=== PATIENT | male | born 1970 | race Caucasian/White ===

== ENCOUNTER 2021-03-20 03:22 | Inpatient (IN) | payer MEDICAID, SELFPAY ==
[2021-03-20] VITALS (15 sets, daily range): BP systolic 111–134; BP diastolic 75–111; PULSE 72–100; RESP 15–27; TEMP 36.6–37.3; O2SAT 94–98; BMI 19.9; BMI 18.7
--- NOTE | 2021-03-20 03:46 | EKG12_ITS ---
Test Reason : SOB Blood Pressure : / mmHG Vent. Rate : 096 BPM Atrial Rate : 096 BPM P-R Int : 128 ms QRS Dur : 078 ms QT Int : 326 ms P-R-T Axes : 083 080 064 degrees QTc Int : 411 ms Normal sinus rhythm Biatrial enlargement Abnormal ECG Confirmed by SAMEERA YADAV, CATE ([id number]), newspaper copy editor DAYAMI OLIVO ([id number]) on 03/25/2021 11:17:00 AM Referred By: BLANQUITA Confirmed By:CATE BRASHER MD
[2021-03-20] MEDS: MethylPREDNISolone 125 MG/2 ML Vial IV (03:55)
[2021-03-20] MEDS: Ondansetron 4 MG/2 ML Vial IV (03:56)
[2021-03-20] MEDS: Morphine 4 MG/ML Syringe IV (03:57)
--- NOTE | 2021-03-20 04:03 | EKG12_ITS ---
Test Reason : SOB Blood Pressure : / mmHG Vent. Rate : 095 BPM Atrial Rate : 095 BPM P-R Int : 130 ms QRS Dur : 078 ms QT Int : 348 ms P-R-T Axes : 083 080 073 degrees QTc Int : 437 ms Normal sinus rhythm Biatrial enlargement Abnormal ECG When compared with ECG of 20-MAR-2021 04:02, MANUAL COMPARISON REQUIRED, DATA IS UNCONFIRMED Confirmed by SAMANTHA YADAV, LISA ([id number]), editor newspaper DAYAMI OLIVO ([id number]) on 03/27/2021 8:16:20 AM Referred By: BLANQUITA Confirmed By:ROSIBEL SINGH MD
[2021-03-20 04:04] LABS: Absolute Lymphocyte Count 2.21 X10^3/uL (0.83-4.51); Absolute Neutrophil Count 11.2 X10^3/uL (2.0-7.7); Basophil# 0.03 X10^3/uL; Basophil% 0.2 % (0-1); Eosinophil# 0.07 X10^3/uL; Eosinophils% 0.5 % (0-5); Hematocrit 40.5 % (40-54); Hemoglobin 13.2 g/dL (13.0-16.5); Lymphocyte # 2.21 X10^3/ul (0.83-4.51); Mean Corp Hgb Conc 32.6 g/dL (32-36); Mean Corpuscular Hgb 28.8 pg (27.0-32.0); Mean Corpuscular Volume 88.4 fL (80-94); Mean Platelet Vol. 9.7 fl (6.2-12.0); Monocyte# 1.15 X10^3/uL; Monocyte% 7.8 % (0-10); NRBC Flagged by Analyzer 0 % (0-5); Neutrophil # 11.21 X10^3/uL (2.7-7.7); Neutrophil % 76.2 % (47-70); Platelet Count 416 K/mm3 (150-450); RBC Distribution Width CV 14.5 % (11.6-14.6); RBC Distribution Width SD 46.3 fl (35.1-43.9); Red Blood Count 4.58 M/mm3 (4.6-6.2); White Blood Count 14.7 K/mm3 (4.4-11.0)
--- NOTE | 2021-03-20 04:18 | EX.ED.DYSGE1 ---
HPI History of Present Illness Chief Complaint: Shortness of Breath Narrative Narrative: Patient is a 50-year-old male with past medical history of COPD as well as previous bilateral pneumonia leading to pneumothorax. Patient reports that he is to wear 2 to 3 L of oxygen as needed and at bedtime. He states he had increased stress over the last week and has resorted to smoking once again. He reports he has been having increased shortness of breath that does not seem to be responding to his normal inhalers and his home oxygen and it did worsen this evening. He denies any known sick exposures or chest pain associated with this but with his history of lung disorder and persistently worsening symptoms he was concern for repeat infection and therefore comes in for evaluation [facility] Medical History (Updated 03/20/21 @ 06:[address] Neo Steven MD) Anxiety COPD (chronic obstructive pulmonary disease) Depression History of bacterial pneumonia Home Medications Spiriva with HandiHaler 1 puff INHALATION DAILY 06/05/14 [History Last Taken 11/18/14] sertraline 100 mg PO DAILY 11/19/14 [History Last Taken 11/18/14] budesonide-formoterol [Symbicort] 2 puff INHALATION BID 03/20/21 [History Last Taken Unknown] pantoprazole 40 mg PO BID 03/20/21 [History Last Taken Unknown] trazodone 100 mg PO DAILY 03/20/21 [History Last Taken Unknown] Allergy/AdvReac Type Severity Reaction Status Date / Time tramadol HCl [From Ultram] Allergy Swelling Verified 03/20/21 03:31 codeine AdvReac PT UNSURE Verified 03/20/21 03:31 OF REACTION Family History (Updated 03/20/21 @ 06:[address] Neo Steven MD) Other Cancer Surgical History (Updated 03/20/21 @ 06:[address] Neo Steven MD) History of chest tube placement History of herniorrhaphy History of tonsillectomy History of tracheostomy Social History Smoking Status: Current every day smoker tobacco type: cigarettes ROS ROS ED Constitutional Constitutional ED: Denies chills or fever(s) ENT ENT ED: Reports rhinorrhea and sore throat Cardiovascular Cardiovascular: Denies chest pain Respiratory/Chest Respiratory/Chest: Reports cough, dyspnea and sputum Gastrointestinal Gastrointestinal: Denies abdominal pain, diarrhea, nausea or vomiting Genitourinary Genitourinary ED: Denies dysuria Musculoskeletal Musculoskeletal: Denies myalgias Integumentary Denies rash Neurologic Neurologic: Reports headache(s) Hematologic/Lymphatic Hematologic/Lymphatic: Denies easy bleeding or easy bruising EXAM Physical Exam Const Vital Signs: 03/20/21 03:23 03/20/21 03:34 03/20/21 04:08 Temperature 98.3 F Temperature Source Oral Pulse Rate 100 97 Respiratory Rate 27 H 20 H Respiratory Effort Labored Respiratory Pattern Tachypnea Normal Blood Pressure 134/111 H Blood Pressure Mean 118 Pulse Ox 94 Oxygen Delivery Method Nasal Cannula Nasal Cannula Oxygen Flow Rate (L/min) 4 4 03/20/21 04:23 03/20/21 05:23 03/20/21 06:23 Temperature 97.9 F 97.9 F 98.2 F Temperature Source Oral Oral Oral Pulse Rate 93 91 90 Respiratory Rate 17 18 17 Respiratory Effort Respiratory Pattern Blood Pressure 130/84 H 128/88 H 123/92 H Blood Pressure Mean 99 101 102 Pulse Ox 95 95 94 Oxygen Delivery Method Nasal Cannula Nasal Cannula Nasal Cannula Oxygen Flow Rate (L/min) 4 4 4 Positive well nourished and well developed General Appearance ED: well developed HEENT Reports moist mucous membranes HEENT Narrative: No tongue or lip swelling no oral lesions no airway edema or compromise Eyes PERRL and EOMs intact bilaterally Neck supple and no JVD Resp Resp Narrative: Patient is tachypneic with accessory muscle use and has dyspnea with speech. Breath sounds are diminished throughout with diffuse inspiratory and expiratory wheezing and faint rhonchi noted in the left lower lobe Cardio regular rhythm Rate: tachycardic and other Other Details: Tachycardic rate with regular rhythm. Radial pulses are plus 2 out of 4 bilaterally are equal and symmetric. GI normal to inspection, nondistended, normoactive bowel sounds, non-tender, non-distended and no masses Auscultation: normoactive bowel sounds Palpation: soft Extremity normal to inspection Extremity Narrative: No asymmetric edema no pitting edema negative Homans' sign bilaterally Neuro oriented x3 and CN's II-XII intact bilaterally Sensorium / Orientation: alert Motor Exam: strength 5/5 throughout Psych mental status grossly normal Skin no rashes or lesions noted MDM MDM MDM Narrative Medical decision making narrative: Patient presented to the ER and respiratory distress with tachypnea accessory muscle use and mild retraction. He also was hypoxic for EMS with a pulse ox in the mid 80s on room air. He did was placed on 4 L nasal cannula and his pulse ox did improve to 94%. His history and exam is most consistent with COPD but based on his severe lung dysfunction a work-up was obtained. White count is elevated at 14.7 but otherwise are no clinically significant lab changes. X-ray reveals COPD lungs without obvious infiltrate or pneumothorax. Patient was given Solu-Medrol and breathing treatments and did have improvement of his symptoms. On reevaluation his work of breathing is much improved and his pulse ox remained stable on 4 L. At this time the patient states he does not feel comfortable going home because of his persistent and worsening symptoms at home despite taking his normal medications. Withheld in distress the patient looked upon arrival I do have concern that if he is discharged he will return to this distress state. Therefore patient will be admitted to the hospital for continued care based on his increasing need for oxygen demand and COPD exacerbation Lab Data Attestation: I reviewed the patient's lab results. Labs: Laboratory Results - last 24 hr 03/20/21 03/20/21 03/20/21 03:35 03:35 03:58 WBC 14.7 H RBC 4.58 L Hgb 13.2 Hct 40.5 MCV 88.4 MCH 28.8 MCHC 32.6 RDW Std Deviation 46.3 H RDW Coeff of Maya 14.5 Plt Count 416 MPV 9.7 Immature Gran % (Auto) 0.300 Neut % (Auto) 76.2 H Lymph % (Auto) 15.0 L [place] % (Auto) 7.8 Eos % (Auto) 0.5 Baso % (Auto) 0.2 Absolute Neuts (auto) 11.2 H Absolute Lymphs (auto) 2.21 Nucleated RBC % 0 D-Dimer Quant (PE/DVT) <= 0.27 Sodium Cancelled Potassium Cancelled Chloride Cancelled Carbon Dioxide Cancelled Anion Gap Cancelled BUN Cancelled Creatinine Cancelled Estim Creat Clear Calc Cancelled Est GFR (MDRD) Af Amer Cancelled Est GFR (MDRD) Non-Af Cancelled BUN/Creatinine Ratio Cancelled Glucose Cancelled Calcium Cancelled Magnesium Cancelled Troponin I High Sens Cancelled 03/20/21 04:09 WBC RBC Hgb Hct MCV MCH MCHC RDW Std Deviation RDW Coeff of Maya Plt Count MPV Immature Gran % (Auto) Neut % (Auto) Lymph % (Auto) [place] % (Auto) Eos % (Auto) Baso % (Auto) Absolute Neuts (auto) Absolute Lymphs (auto) Nucleated RBC % D-Dimer Quant (PE/DVT) Sodium 137 Potassium 3.3 L Chloride 101 Carbon Dioxide 29.0 Anion Gap 7 BUN 9 Creatinine 0.73 Estim Creat Clear Calc 107.88 Est GFR (MDRD) Af Amer 146 Est GFR (MDRD) Non-Af 121 BUN/Creatinine Ratio 12.3 Glucose 106 Calcium 9.0 Magnesium 1.8 Troponin I High Sens 3 Radiography Diagnostic Testing: Clinical Impression(s) from Imaging Studies Chest X-Ray 03/20/21 04:50 IMPRESSION: No acute findings in the chest. COPD changes. at 0505 Reported and signed by: Lee De Leon MD Electronically Signed: Lee De Leon MD at 5:04 EST Tel , Service support , Discharge Plan Triage Chief Complaint: Shortness of Breath ED Provider: Anselmo Bustos Dx/Rx/DC Orders Clinical Impression: Acute exacerbation of chronic obstructive pulmonary disease Primary Care Provider: Antwan Buchanan Disposition Disposition: [facility]
[2021-03-20 04:20] LABS: D-Dimer Quantitative (DVT/PE) <= 0.27 FEU/ug/m (0.27-0.49)
[2021-03-20 04:48] LABS: Anion Gap 7 (5-15); BUN 9 mg/dL (7-18); BUN/Creat Ratio 12.3 RATIO (10-20); Chloride 101 mmol/L (98-107); Creatinine, Serum 0.73 mg/dL (0.70-1.30); EST Glomerular Filtration Rate 121 mL/min (>60); Est Glom Filt Rate - Afr Amer 146 mL/min (>60); Estimated Creatinine Clearance 107.88 ml/min; Glucose 106 mg/dL (74-106); Magnesium 1.8 mg/dL (1.6-2.6); Potassium 3.3 mmol/L (3.5-5.1); Sodium Level 137 mmol/L (136-145); Troponin-I HS 3 pg/mL (3.0-78.0)
--- NOTE | 2021-03-20 04:50 | RAD_ITS ---
EXAM: XR CHEST, 1 VIEW : 1970 CLINICAL INDICATION: cough TECHNIQUE: Frontal view of the chest. This report was created using [employer] report generation technology. COMPARISON: 11/19/14 FINDINGS: LUNGS AND PLEURAL SPACES: Hyperinflation. No pneumothorax. No effusion. HEART: Unremarkable. Cardiac silhouette not enlarged. MEDIASTINUM: Central airways and mediastinal contour are unremarkable. BONES/JOINTS: Unremarkable. SOFT TISSUES: Unremarkable. RAD/Chest 1 View (Portable) IMPRESSION: No acute findings in the chest. COPD changes. at 0505 Reported and signed by: Lee De Leon MD Electronically Signed: Lee De Leon MD at 5:04 EST Tel , Service support ,
--- NOTE | 2021-03-20 06:32 | PCM.HP.STD ---
HPI - General HPI Narrative LUIS AVILA, is a 50 M with a significant history of COPD; bilateral pneumonia; pneumothorax with a chest tube; Tracheostomy; and on 2 L as needed oxygen and at night at night presenting with 1 week history of progressively worsening shortness of breath. Associated with symptom is wheezes. Also he reports thick greenish-yellowish sputum. Typically he has a dry cough but this time around he has a productive cough as above. He denies any fever. He reports chills. He did not take the COVID-19 vaccination because his doctor advised him against it. Per patient he had a pulmonary complication the first time that he took influenza shot. [facility] Medical History Anxiety COPD (chronic obstructive pulmonary disease) Depression History of bacterial pneumonia Home Medications Spiriva with HandiHaler 1 puff INHALATION DAILY 06/05/14 [History Last Taken 11/18/14] sertraline 100 mg PO DAILY 11/19/14 [History Last Taken 11/18/14] budesonide-formoterol [Symbicort] 2 puff INHALATION BID 03/20/21 [History Last Taken Unknown] pantoprazole 40 mg PO BID 03/20/21 [History Last Taken Unknown] trazodone 100 mg PO DAILY 03/20/21 [History Last Taken Unknown] Allergy/AdvReac Type Severity Reaction Status Date / Time [facility] Allergy Swelling Verified 03/20/21 03:31 codeine AdvReac PT UNSURE Verified 03/20/21 03:31 OF REACTION Family History Other Cancer Surgical History History of chest tube placement History of herniorrhaphy History of tonsillectomy History of tracheostomy Social History Smoking Status: Current every day smoker tobacco type: cigarettes ROS ROS Narrative Constitutional: Reports chills. Denies fever, fatigue, anorexia and change in weight Eyes: Denies blurry vision, change in eye color, change in vision, discharge from eye(s), double vision, erythema, eye pain, loss of vision or other HEENT: Denies abnormal hearing, dysphagia, ear pain, epistaxis, headache(s), hearing loss, nasal congestion, nasal discharge, post nasal drip, sinus pressure, sore throat or other Cardiovascular: Denies chest pain or palpitations. Respiratory/Chest: Reports productive cough. Reports wheezing. Reports shortness of breath. Gastrointestinal: Denies abdominal pain, coffee ground emesis, constipation, diarrhea, dyspepsia, hematemesis, hematochezia, loose stools, melena, nausea, vomiting or other Genitourinary: Denies burning urination, difficulty urinating, dysuria, hematuria, nocturia, urinary frequency, urinary hesitancy, urinary incontinence, urinary urgency or other Musculoskeletal: Denies arthralgias, back pain, joint pain, joint stiffness, joint swelling, myalgias, neck pain or other Neurologic: Denies abnormal gait, abnormal speech, confusion, disequilibrium, dizziness, focal weakness, headache(s), numbness, paresthesias, seizure-like activity, seizures, syncope, tingling, tremor(s) or other Psychiatric: Denies anxiety, depression, homicidal ideation, suicidal ideation or other Endocrinology: Denies change in body appearance, cold intolerance, excessive sweating, heat intolerance, polydipsia, polyuria or other Hematologic/Lymphatic: Denies anemia, easy bleeding, easy bruising, lymphadenopathy or other Integumentary: Denies rashes Allergic/Immunologic: Denies rhinitis, hives, eczema, asthma or other Vital Signs Vital Signs Vital Signs: 03/20/21 03:23 03/20/21 03:34 03/20/21 04:08 Temperature 98.3 F Temperature Source Oral Pulse Rate 100 97 Respiratory Rate 27 H 20 H Respiratory Effort Labored Respiratory Pattern Tachypnea Normal Blood Pressure 134/111 H Blood Pressure Mean 118 Pulse Ox 94 Oxygen Delivery Method Nasal Cannula Nasal Cannula Oxygen Flow Rate (L/min) 4 4 03/20/21 04:23 03/20/21 05:23 03/20/21 06:23 Temperature 97.9 F 97.9 F 98.2 F Temperature Source Oral Oral Oral Pulse Rate 93 91 90 Respiratory Rate 17 18 17 Respiratory Effort Respiratory Pattern Blood Pressure 130/84 H 128/88 H 123/92 H Blood Pressure Mean 99 101 102 Pulse Ox 95 95 94 Oxygen Delivery Method Nasal Cannula Nasal Cannula Nasal Cannula Oxygen Flow Rate (L/min) 4 4 4 Weight Weight: 63 kg Body Mass Index (BMI) 19.9 Physical Exam Narrative Physical exam: General: Well-nourished, well-developed. Head: Normocephalic, atraumatic, no tenderness Eyes: PERRLA, EOMI ENT, no trauma, moist mucous membranes, no rhinorrhea Neck: Nontender, full range of motion, no spinal tenderness, deformities, step-off CVS: Regular rate and rhythm. S1-S2 present. No murmur, gallop or rub. Respiratory : Decreased breathing at left posterior side of lung. Clear posterior right lungs. Abdomen: Soft, nontender, nondistended, normal bowel sounds, no masses : Deferred Back: Nontender, no CVA tenderness, no midline spinal tenderness, deformities, step-offs Extremities: Nontender full range of motion, no trauma Skin: Normal color, no trauma, abrasions Neuro: Alert, oriented, cranial nerves II through XII grossly intact. Psychiatry: Normal mood. Normal affect. Not depressed. Not anxious. Results Lab / Micro Data Result Diagrams: 03/20/21 03:35 03/20/21 04:09 Labs: Laboratory Results - last 24 hr 03/20/21 03:35: WBC 14.7 H, RBC 4.58 L, Hgb 13.2, Hct 40.5, MCV 88.4, MCH 28.8, MCHC 32.6, RDW Std Deviation 46.3 H, RDW Coeff of Maya 14.5, Plt Count 416, MPV 9.7, Immature Gran % (Auto) 0.300, Neut % (Auto) 76.2 H, Lymph % (Auto) 15.0 L, [place] % (Auto) 7.8, Eos % (Auto) 0.5, Baso % (Auto) 0.2, Absolute Neuts (auto) 11.2 H, Absolute Lymphs (auto) 2.21, Nucleated RBC % 0 03/20/21 03:35: Sodium Cancelled, Potassium Cancelled, Chloride Cancelled, Carbon Dioxide Cancelled, Anion Gap Cancelled, BUN Cancelled, Creatinine Cancelled, Estim Creat Clear Calc Cancelled, Est GFR (MDRD) Af Amer Cancelled, Est GFR (MDRD) Non-Af Cancelled, BUN/Creatinine Ratio Cancelled, Glucose Cancelled, Calcium Cancelled, Magnesium Cancelled, Troponin I High Sens Cancelled 03/20/21 03:58: D-Dimer Quant (PE/DVT) <= 0.27 03/20/21 04:09: Sodium 137, Potassium 3.3 L, Chloride 101, Carbon Dioxide 29.0, Anion Gap 7, BUN 9, Creatinine 0.73, Estim Creat Clear Calc 107.88, Est GFR (MDRD) Af Amer 146, Est GFR (MDRD) Non-Af 121, BUN/Creatinine Ratio 12.3, Glucose 106, Calcium 9.0, Magnesium 1.8, Troponin I High Sens 3 Micro: Microbiology 03/20/21 03:52 Nasal Secretion SARS-CoV-2 Antigen (Rapid) - Final Radiology Impression Chest X-Ray 03/20/21 04:50 IMPRESSION: No acute findings in the chest. COPD changes. at 0505 Reported and signed by: Lee De Leon MD Electronically Signed: Lee De Leon MD at 5:04 EST Tel , Service support , Assessment & Plan Assessment/Plan (1) COPD (chronic obstructive pulmonary disease): QUALIFIERS: COPD type: COPD with acute exacerbation Qualified Code(s): J44.1 - Chronic obstructive pulmonary disease with (acute) exacerbation PLAN: Acute COPD exacerbation CXR independently interpreted showed COPD with no acute cardiopulmonary process. Rapid Covid antigen is negative. Chest x-ray is not symptomatology for Covid. Scheduled DuoNeb Albuterol as needed Solu-Medrol ordered Review of labs showed a white count of 14.7. This could secondary to stress. However with a thick colored sputum we will start patient on azithromycin. Trend CBC and BMP. Oxygen per nasal cannula titrate as necessary. Monitor BMP and CBC Tobacco abuse Counseled Declined nicotine patch prostate out his PCP will be sending him Chantix. Hypokalemia: Review of labs showed potassium of 3.3. Replace. Trend BMP. DVT prophylaxis Subcutaneous Lovenox ordered. Charges/Coding Visit Charges Inpatient E&M: 94304 Init Hosp L2
[2021-03-20] MEDS: Acetaminophen 325 MG Tablet 650 MG PO ×2 (07:49→21:44)
[2021-03-20] MEDS: Ceftriaxone 1 GM/50 ML BAG IV (09:24)
[2021-03-20] MEDS: Sertraline 100 MG Tablet PO (09:26)
[2021-03-20] MEDS: guaiFENesin 1,200 MG Tablet 1200 MG PO ×2 (09:26→21:44)
[2021-03-20] MEDS: Pantoprazole Sodium 40 MG Tablet PO ×2 (09:26→21:44)
[2021-03-20] MEDS: Azithromycin 250 MG Tablet 500 MG PO (09:26)
[2021-03-20] MEDS: Potassium Chloride Oral Tablet 20 MEQ 40 MEQ PO (09:28)
--- NOTE | 2021-03-20 09:54 | CASEMGMT ---
Pt screened with [facility] Palliative Care Screening Tool, pt met criteria. No order received at this time.
--- NOTE | 2021-03-20 10:20 | CASEMGMT ---
Addendum entered by Nicol Perkins 03/20/21 11:05: Looked up [employer] online, called number listed and it was a private phone number. TC to several [place] oxygen companies, they are unaware of the company. TC to another company listed online, which was in [place], they do not have a branch in [place]. ADELIA HOFFMANN back in to pt room to see if he has the phone number to the company. Pt states he does not. Emailed the email listed on website requesting phone number. Will await response. Original Note: ADELIA HOFFMANN Assessment: Face to Face with pt for initial transition planning/care coordination assessment. ADELIA HOFFMANN introduced self and role at [facility], pt voices understanding and consents to assessment. Pt is A/O x4 and answers all questions appropriately at this time. Pt lying in bed with O2 on in no distress. Pt kept eyes closed throughout assessment. Care providers, pharmacy, and demographics verified/updated. Admitting Dx: COPD exac PCP:[facility] Specialists: Pt denies having specialists. States I have to get new ones. [facility] Insurance: [facility] Prescription Benefit: yes LW/HPOA: Pt denies having a LW/DPOA and denies need for info regarding AD. LNOK: Toño Steele, father; Fabi Almendarezsey, friend Living Arrangements: Pt lives alone in a ground level apt with no steps to enter. Pt reports he is I in ADL's and denies concerns at home. Transportation: Pt drives self and denies concerns with transportation. DME/HHC/SNF: Pt states he has oxygen at 2L at night and prn during the day. Pt states this is through [facility]. Pt reports he does not have portable O2, but states he can get some. Made pt aware if he needs O2 at dc at rest, he will need portable to go home on. Pt states I wont need it. Pt states he has had HHC in the past but is unsure of the name of the agency, denies SNF stays. Pt states no concerns with going home at time of dc. Pt states no further concerns/needs. CM to follow. Advised pt to ask CM if any further question/concerns/needs arise, voices understanding. Pt Goal: Home Plan: Home
[2021-03-20] MEDS: Ipratropium/Albuterol Sulfate 3 ML AMPUL.NEB INHALATION ×3 (10:40→19:20)
[2021-03-20] MEDS: Ibuprofen 600 MG Tablet PO (11:54)
--- NOTE | 2021-03-20 13:02 | CASEMGMT ---
ADELIA HOFFMANN NOTE: ADELIA HOFFMANN unable to locate DME company by the name of [employer]. TC to [facility] and spoke w/Dagmar. She states pt has been prior-auth'd for both oxygen concentrator and portable tanks and supplier is [facility]. Phone number provided by Dagmar was [phone]. TC that #, and spoke to Kemi, who states this # is to [facility] main location and is the same as [place]. She states pt gets O2 from [facility]. ADELIA HOFFMANN placed call to [facility] and spoke w/Rosario. She confirms pt has a concentrator through them and he also has portability, stating last delivery of portable tanks was 07/31/20 when pt received 6 portable tanks. Rosario states current O2 orders are for 4 l/m continuously. ADELIA HOFFMANN to pt's room. Pt states he did receive the portable tanks in July, but [place] that time. He states he has moved from the [facility] since then and the tanks were left there and he was unable to get back in to get them, so he does not have any portable tanks now. He states he did not inform [facility] of this. ADELIA HOFFMANN also made him aware [place]'s current O2 orders are for 4 l/m continuously. He states Dr Buchanan had changed his O2 liter flow orders to 2-3 L/M PRN and @ HS, but he does remember when that occurred. TC placed back to [facility] and spoke w/Chari. She was made aware that pt reports he no longer has the 6 portable tanks that were delivered to him in Jul, 2020 d/t the above and also that pt reports Dr Buchanan changed his O2 orders. Chari does not show any records of new Liter flow. Chari asked for new Home O2 testing completed and new script to be faxed to [place] @ discharge so they can update all of pt's orders. She asks that script states on it that pt already has a concentrator but that he will need portable tanks. They can provide portable O2 tank to [facility] for pt to go home on, as well, @ discharge. Nicol, MS3 ADELIA HOFFMANN, made aware of all of the above. Corina BSN ADELIA HOFFMANN
[2021-03-20] MEDS: 0.9% Saline Lock 10 ML Syringe IV ×2 (14:43→21:45)
--- NOTE | 2021-03-20 17:36 | PCM.HOSP.N ---
Hospitalist Note Mr. Steele is a 50-year-old white male who presented to the emergency department early this morning and admitted for acute exacerbation of COPD. The patient indicates he has had several days of increased cough and sputum production. His white count is elevated but he denied any fever or chills. His chest x-ray shows marked COPD. Given his sputum change I will go ahead and treat him with antimicrobials to include azithromycin and ceftriaxone at this time. Sputum cultures pending. I ordered Legionella and strep pneumo antigens as well. We will continue steroids. Baseline oxygen requirements are 2 L and is presently on 4 L nasal cannula. He is still smoking 1 pack/day which he recently restarted. I anticipate him being here at least 24 more hours if not longer depending on his clinical progress.
[2021-03-20] MEDS: traZODone 100 MG Tablet PO (21:44)
[2021-03-20] MEDS: MELATONIN 3 MG TABLET PO (21:44)
[2021-03-21] VITALS (11 sets, daily range): BP systolic 83–118; BP diastolic 51–75; PULSE 61–113; RESP 16–22; TEMP 36.3–36.8; O2SAT 94–96
[2021-03-21 08:37] LABS: Absolute Lymphocyte Count 1.09 X10^3/uL (0.83-4.51); Absolute Neutrophil Count 12.1 X10^3/uL (2.0-7.7); Basophil# 0.01 X10^3/uL; Basophil% 0.1 % (0-1); Hematocrit 37.7 % (40-54); Hemoglobin 11.9 g/dL (13.0-16.5); Lymphocyte # 1.09 X10^3/ul (0.83-4.51); Lymphocyte % 7.6 % (19-41); Mean Corp Hgb Conc 31.6 g/dL (32-36); Mean Corpuscular Hgb 28.5 pg (27.0-32.0); Mean Corpuscular Volume 90.4 fL (80-94); Mean Platelet Vol. 9.3 fl (6.2-12.0); Monocyte# 1.07 X10^3/uL; Monocyte% 7.5 % (0-10); NRBC Flagged by Analyzer 0 % (0-5); Neutrophil # 12.05 X10^3/uL (2.7-7.7); Neutrophil % 84.4 % (47-70); Platelet Count 371 K/mm3 (150-450); RBC Distribution Width CV 14.4 % (11.6-14.6); Red Blood Count 4.17 M/mm3 (4.6-6.2); White Blood Count 14.3 K/mm3 (4.4-11.0)
[2021-03-21 09:01] LABS: Anion Gap 4 (5-15); BUN 17 mg/dL (7-18); BUN/Creat Ratio 23.3 RATIO (10-20); Calcium,Total 9.3 mg/dL (8.5-10.1); Chloride 104 mmol/L (98-107); Creatinine, Serum 0.73 mg/dL (0.70-1.30); EST Glomerular Filtration Rate 121 mL/min (>60); Est Glom Filt Rate - Afr Amer 146 mL/min (>60); Estimated Creatinine Clearance 101.37 ml/min; Glucose 126 mg/dL (74-106); Potassium 4.3 mmol/L (3.5-5.1); Sodium Level 138 mmol/L (136-145)
[2021-03-21] MEDS: Azithromycin 250 MG Tablet 500 MG PO (10:19)
[2021-03-21] MEDS: Sertraline 100 MG Tablet PO (10:20)
[2021-03-21] MEDS: Ceftriaxone 1 GM/50 ML BAG IV (10:20)
[2021-03-21] MEDS: guaiFENesin 1,200 MG Tablet 1200 MG PO ×2 (10:20→20:39)
[2021-03-21] MEDS: Pantoprazole Sodium 40 MG Tablet PO ×2 (10:20→20:38)
[2021-03-21] MEDS: Acetaminophen 325 MG Tablet 650 MG PO ×2 (14:04→20:38)
[2021-03-21] MEDS: 0.9% Saline Lock 10 ML Syringe IV ×2 (14:06→20:39)
[2021-03-21] MEDS: Ipratropium/Albuterol Sulfate 3 ML AMPUL.NEB INHALATION ×2 (14:24→20:02)
--- NOTE | 2021-03-21 16:58 | PCM.PN.HOSP ---
Subjective Subjective Patient states he is feeling overall better. Evidently case management found that he was supposed to be on 4 L nasal cannula at home but had only been using it intermittently and when he was using it only using 2 L. He states he is very fatigued. Last evening he informed us that his son, with whom he lives, called and told him he was positive for COVID-19. The patient is nonvaccinated and had significant exposure. A rapid was negative on admission and a PCR was negative yesterday although if this is a new diagnosis I suspect that he may test positive next 24 to 48 hours. The patient is complaining of significant fatigue and malaise. Objective Data Objective Data Vital Signs: Vital Signs Temp Pulse Resp BP Pulse Ox 97.8 F 99 22 H 118/75 96 03/21/21 14:08 03/21/21 14:24 03/21/21 14:24 03/21/21 14:08 03/21/21 14:08 Oxygen Flow Rate (L/min) 2 Oxygen Delivery Method Nasal Cannula Weight: 59.2 kg Body Mass Index (BMI) 18.7 Intake & Output: Intake and Output for Last 24 Hours 03/19/21 03/20/21 03/21/21 23:59 23:59 23:59 Intake Total 550 / 550 550 / 550 Balance 550 / 550 550 / 550 Medical Nutrition Assessment Dietitian: Malnutrition Criteria Met Start: 03/20/21 12:05 Freq: Status: Active Protocol: Document 03/20/21 12:05 JERRY (Rec: 03/20/21 12:05 [facility] [id number]) Nutrition Malnutrition Evidence of Malnutrition Exists Yes Malnutrition (severe): Acute Illness/Injury Evidenced By Suboptimal Energy Intake ( Severe),Weight Loss (Severe), Physical Changes (Severe) Clinical Problem Acute Disease or Injury Related Malnutrition Etiology related to increased needs of COPD, mom passing away and subsequent decreased appetite from stress and depression Signs/Symptoms as evidenced by <50-75% po intake and wt loss of 23.4% x ~ 2 months. Pt has obvious fat/muscle loss in upper body, face, arms Status Active Problem Recommendation Dietitian Recommendations/Changes Continue regular diet Rec consider medication d/t depression so can have increased appetite Will provide food at meals for pt to save off trays for snacks between meals per pt request Will order chocolate ensure compact 4x/day w/ medpass Lab / Micro Data Result Diagrams: 03/21/21 07:48 03/21/21 07:48 Labs: Laboratory Results - last 24 hr 03/20/21 19:20: COVID-19 (DESTINY) Negative 03/21/21 07:48: Sodium 138, Potassium 4.3, Chloride 104, Carbon Dioxide 30.0, Anion Gap 4 L, BUN 17, Creatinine 0.73, Estim Creat Clear Calc 101.37, Est GFR (MDRD) Af Amer 146, Est GFR (MDRD) Non-Af 121, BUN/Creatinine Ratio 23.3 H, Glucose 126 H, Calcium 9.3 03/21/21 07:48: WBC 14.3 H, RBC 4.17 L, Hgb 11.9 L, Hct 37.7 L, MCV 90.4, MCH 28.5, MCHC 31.6 L, RDW Std Deviation 48.0 H, RDW Coeff of Maya 14.4, Plt Count 371, MPV 9.3, Immature Gran % (Auto) 0.400, Neut % (Auto) 84.4 H, Lymph % (Auto) 7.6 L, Hart % (Auto) 7.5, Eos % (Auto) 0.0, Baso % (Auto) 0.1, Absolute Neuts (auto) 12.1 H, Absolute Lymphs (auto) 1.09, Nucleated RBC % 0 Micro: Microbiology 03/20/21 14:50 Urine, Clean Catch Legionella Antigen - Final 03/20/21 14:50 Urine, Clean Catch Streptococcus pneumoniae Antigen (M - Final 03/20/21 03:52 Nasal Secretion SARS-CoV-2 Antigen (Rapid) - Final Physical Exam Const Constitutional Narrative: Middle-aged white male who appears older than stated age, patient was sleeping soundly on my arrival but awakened to tactile stimulus, he was appropriate upon waking, Exam Limitations: no limitations Nutritional Appearance: thin HEENT head/scalp atraumatic and moist oral mucous membranes HEENT Narrative: Poor dentition, Mallampati 2 Head and Scalp: normocephalic Resp normal respiratory effort, no retractions and no use of accessory muscles Resp Narrative: Few scant set tattered end expiratory wheeze but otherwise significantly diminished, cough is very rhonchorous but no rhonchi with lung auscultation, no significant tachypnea at this time Auscultation: Negative for crackles, rales or rhonchi Cardio regular rate, regular rhythm, S1 normal heart sound, S2 normal heart sound, no murmurs, no rub, no gallops, no clicks and no JVD GI normal to inspection, nondistended, normoactive bowel sounds, soft to palpation, non-tender and non-distended Extremity no clubbing, cyanosis or edema Peripheral Pulses: Yes pulses 2+ throughout Neuro oriented x3, moves all extremities and no focal motor deficits Neuro Narrative: Sleeping but awakens easily and alert and oriented x3 Sensorium / Orientation: alert Speech: speech normal Assessment & Plan Assessment/Plan (1) Acute and chronic respiratory failure with hypoxia: (2) COPD with acute exacerbation: (3) Exposure to COVID-19 virus: (4) Leucocytosis: (5) Hypokalemia: PLAN: Acute on chronic hypoxic respiratory failure secondary to acute exacerbation of COPD/+-community-acquired pneumonia -Patient has been able to be weaned down to 2 L nasal cannula -Appears baseline oxygen is 2 to 4 L -No significant cough with production -Sputum cultures pending -Strep pneumo and Legionella antigens are negative -Covid rapid and PCR negative however patient has had exposure with his son just testing positive -Patient lives with his son -Nonvaccinated -Consider repeat testing in the next 24 to 48 hours especially if patient clinically declines -Continue scheduled DuoNebs/as needed albuterol -Continue Solu-Medrol 40 every 8 and if stable tomorrow wean to 40 mg prednisone p.o. daily -Continue empiric antibiotics with sputum change in ceftriaxone and azithromycin at this time -Incentive spirometer and Pep therapy ordered and compliance encouraged -Continue Mucinex 1200 mg p.o. twice daily Recent COVID-19 virus exposure -Son tested positive -Lives with his son -Rapid and PCR negative on day of admission -Consider retesting soon Hypokalemia -Resolved Leukocytosis -Suspect multifactorial with demargination due to steroids and possibly related to community-acquired pneumonia -Pneumonia work-up in progress COPD -Hold home inhalers -Patient is oxygen dependent at baseline at 2 to 4 L GERD -Continue Protonix Depression -Continue sertraline -Continue trazodone DVT prophylaxis -Start Lovenox 40 mg daily CODE STATUS -Full code Charges/Coding Visit Charges Inpatient E&M: 33447 Subs Hosp L2
[2021-03-21] MEDS: Enoxaparin 40 MG/0.4 ML Syringe SC (17:49)
[2021-03-21] MEDS: Ibuprofen 600 MG Tablet PO (18:05)
[2021-03-21] MEDS: traZODone 100 MG Tablet PO (20:38)
[2021-03-21] MEDS: MELATONIN 3 MG TABLET PO (20:38)
[2021-03-22] VITALS (8 sets, daily range): BP systolic 96–128; BP diastolic 64–85; PULSE 70–100; RESP 18–20; TEMP 36.3–36.6; O2SAT 91–96
[2021-03-22] MEDS: 0.9% Saline Lock 10 ML Syringe IV ×2 (05:32→11:38)
[2021-03-22 07:04] LABS: Absolute Lymphocyte Count 1.45 X10^3/uL (0.83-4.51); Absolute Neutrophil Count 13.5 X10^3/uL (2.0-7.7); Basophil# 0.02 X10^3/uL; Basophil% 0.1 % (0-1); Hematocrit 38.6 % (40-54); Lymphocyte # 1.45 X10^3/ul (0.83-4.51); Lymphocyte % 9.1 % (19-41); Mean Corp Hgb Conc 31.1 g/dL (32-36); Mean Corpuscular Hgb 28.6 pg (27.0-32.0); Mean Corpuscular Volume 91.9 fL (80-94); Mean Platelet Vol. 9.3 fl (6.2-12.0); Monocyte# 0.92 X10^3/uL; Monocyte% 5.8 % (0-10); NRBC Flagged by Analyzer 0 % (0-5); Neutrophil # 13.47 X10^3/uL (2.7-7.7); Neutrophil % 84.5 % (47-70); Platelet Count 375 K/mm3 (150-450); RBC Distribution Width CV 14.6 % (11.6-14.6); RBC Distribution Width SD 49.1 fl (35.1-43.9); White Blood Count 15.9 K/mm3 (4.4-11.0)
[2021-03-22] MEDS: Ipratropium/Albuterol Sulfate 3 ML AMPUL.NEB INHALATION ×2 (07:11→11:06)
[2021-03-22 07:22] LABS: Anion Gap 5 (5-15); BUN 22 mg/dL (7-18); BUN/Creat Ratio 27.6 RATIO (10-20); Chloride 105 mmol/L (98-107); EST Glomerular Filtration Rate 109 mL/min (>60); Est Glom Filt Rate - Afr Amer 132 mL/min (>60); Glucose 120 mg/dL (74-106); Potassium 4.2 mmol/L (3.5-5.1); Sodium Level 139 mmol/L (136-145)
[2021-03-22] MEDS: Ceftriaxone 1 GM/50 ML BAG IV (11:38)
[2021-03-22] MEDS: Enoxaparin 40 MG/0.4 ML Syringe SC (11:41)
[2021-03-22] MEDS: Azithromycin 250 MG Tablet 500 MG PO (11:42)
[2021-03-22] MEDS: guaiFENesin 1,200 MG Tablet 1200 MG PO (11:42)
[2021-03-22] MEDS: Pantoprazole Sodium 40 MG Tablet PO (11:43)
[2021-03-22] MEDS: Sertraline 100 MG Tablet PO (11:43)
--- NOTE | 2021-03-22 14:16 | DS.PCM_ITS ---
Providers Date of Admission: 03/20/21 Primary Care Physician: Dr. Antwan Buchanan, Reason For Visit: COPD EXACERBATION Diagnosis Discharge Diagnosis (1) Acute and chronic respiratory failure with hypoxia: Status: Chronic Code(s): J96.21 - Acute and chronic respiratory failure with hypoxia (2) COPD with acute exacerbation: Status: Chronic Code(s): J44.1 - Chronic obstructive pulmonary disease with (acute) exacerbation (3) Exposure to COVID-19 virus: Status: Acute Code(s): Z20.822 - Contact with and (suspected) exposure to COVID-19 (4) Leucocytosis: Status: Acute Code(s): D72.829 - Elevated white blood cell count, unspecified (5) Hypokalemia: Status: Acute Code(s): E87.6 - Hypokalemia Medications at Discharge Home Medications Spiriva with HandiHaler 1 puff INHALATION DAILY 06/05/14 sertraline 100 mg PO DAILY 11/19/14 budesonide-formoterol [Symbicort] 2 puff INHALATION BID 03/20/21 pantoprazole 40 mg PO BID 03/20/21 trazodone 100 mg PO DAILY 03/20/21 levofloxacin 750 mg PO DAILY #4 tab 03/22/21 nystatin 100,000 unit PO DAILY #60 ml 03/22/21 prednisone 10 mg PO DAILY #30 tab 03/22/21 Hospital Course Operations None Procedures None Summary of Care Provided Minutes Spent on Discharge: 38 Hospital Course: Mr. Steele is a 50-year-old white male who presented to the emergency department at [facility] on 03/20/2021 with a chief complaint of shortness of breath. The patient has a significant history of COPD with bilateral pneumonia and pneumothorax with chest tube. He required a tracheostomy at that hospitalization and has been on 2 L nasal cannula since that point in time however we did find during his course that he was to be on this continuous and was only wearing it as needed. It was also supposed to be 4 L with exertion. Upon presentation he reported approximately 1 week history of worsening cough with sputum production above his baseline and associated wheeze. He states the sputum is thick with a greenish-yellow tinge. He states his cough is typically dry. He denies any noted fever but has had chills. He has not been vaccinated against COVID-19. He was admitted to the medical floor for acute exacerbation of COPD with suspected superimposed bacterial pneumonia and placed on steroids, aggressive pulmonary toilet, CAP coverage antibiotics, and supportive medications for symptoms. During his hospitalization his son called, with whom he lives, and states that he had come down with COVID-19. The patient was tested on admission with a rapid and it was negative. Upon learning of his exposure he was tested with a PCR and this was negative. He was also tested on 03/22/2021 and his rapid was negative that time as well. His respiratory status i mproved from him requiring 4 L at admission to 1 to 2 L at discharge of nasal cannula both at rest and with ambulation. He was discharged home on 03/22/2021 in stable condition with prescriptions for a prednisone taper, antibiotics and Levaquin to complete a 7-day course, and nystatin swish and swallow as he had developed mild oral thrush during his hospitalization. We did advise him to isolate himself for the next 10 days given his Covid exposure and voiced his son is much as possible. He was advised to come back to the hospital if he has worsening respiratory status or hypoxia. He indicated he did have a pulse oximetry at home and would measure himself periodically. It was recommended he do follow-up with a software test analyst after he is recovered from this acute event as he states that he has not seen pulmonary previously. A referral was given to Dr. Mckeon in [place] and he was encouraged to call on Tuesday for an appointment to see him within the next 3 months. It was also recommended he follow-up with his primary care physician in 1 to 2 weeks after discharge. Discharge diagnoses: Acute on chronic hypoxic respiratory failure Acute exacerbation of COPD Commune acquired pneumonia COVID-19 virus exposure Hypokalemia-resolved Leukocytosis-improving COPD GERD Depression Tobacco abuse Physical Exam Const alert Constitutional Narrative: Middle-aged white male who appears older than stated age, nursing at bedside, patient is lying in bed watching television and resting, appears comfortable and nontoxic, currently on 2 L nasal cannula General Appearance: cooperative, comfortable, well developed and disheveled Exam Limitations: no limitations Nutritional Appearance: thin HEENT normocephalic, head/scalp atraumatic, hearing grossly normal bilaterally and moist oral mucous membranes HEENT Narrative: Mild thrush developing, poor dentition, Mallampati 2 Eyes PERRL, EOMs intact bilaterally and conjunctivae normal Eyes Narrative: No scleral icterus Neck no lymphadenopathy, supple and no JVD Neck Narrative: Trachea midline, no thyroid enlargement Resp normal respiratory effort, no retractions and no use of accessory muscles Resp Narrative: Few scattered end expiratory wheezes but otherwise clear, breathing appears comfortable Auscultation: wheezes; Negative for crackles, rales or rhonchi Cardio regular rate, regular rhythm, S1 normal heart sound, S2 normal heart sound, no murmurs, no rub, no gallops, no clicks and no JVD GI normal to inspection, nondistended, normoactive bowel sounds, soft to palpation, non-tender and non-distended Extremity normal to inspection and no clubbing, cyanosis or edema Skin no rashes or lesions noted, no wounds, skin turgor normal and no jaundice Skin Narrative: Multiple tattoos Neuro oriented x3, moves all extremities and no focal motor deficits Sensorium / Orientation: awake and alert Speech: speech normal Psych Psych Narrative: Affect is flattened mood seems depressed Mood & Affect: depressed Medical Records Data Medical Nutrition Assessment Dietitian: Malnutrition Criteria Met Start: 03/20/21 12:05 Freq: Status: Active Protocol: Document 03/20/21 12:05 [facility] (Rec: 03/20/21 12:05 [facility] [id number]) Nutrition Malnutrition Evidence of Malnutrition Exists Yes Malnutrition (severe): Acute Illness/Injury Evidenced By Suboptimal Energy Intake ( Severe),Weight Loss (Severe), Physical Changes (Severe) Clinical Problem Acute Disease or Injury Related Malnutrition Etiology related to increased needs of COPD, mom passing away and subsequent decreased appetite from stress and depression Signs/Symptoms as evidenced by <50-75% po intake and wt loss of 23.4% x ~ 2 months. Pt has obvious fat/muscle loss in upper body, face, arms Status Active Problem Recommendation Dietitian Recommendations/Changes Continue regular diet Rec consider medication d/t depression so can have increased appetite Will provide food at meals for pt to save off trays for snacks between meals per pt request Will order chocolate ensure compact 4x/day w/ medpass Weight / BMI Weight Weight: 59.2 kg Body Mass Index (BMI) 18.7 ABG / Lab / Microbiology Data Result Diagrams: 03/22/21 06:15 03/22/21 06:15 Laboratory: Laboratory Results - last 24 hr 03/22/21 06:15: WBC 15.9 H, RBC 4.20 L, Hgb 12.0 L, Hct 38.6 L, MCV 91.9, MCH 28.6, MCHC 31.1 L, RDW Std Deviation 49.1 H, RDW Coeff of Maya 14.6, Plt Count 375, MPV 9.3, Immature Gran % (Auto) 0.500, Neut % (Auto) 84.5 H, Lymph % (Auto) 9.1 L, Fergus % (Auto) 5.8, Eos % (Auto) 0.0, Baso % (Auto) 0.1, Absolute Neuts (auto) 13.5 H, Absolute Lymphs (auto) 1.45, Nucleated RBC % 0 03/22/21 06:15: Sodium 139, Potassium 4.2, Chloride 105, Carbon Dioxide 29.0, Anion Gap 5, BUN 22 H, Creatinine 0.80, Estim Creat Clear Calc 92.50, Est GFR (MDRD) Af Amer 132, Est GFR (MDRD) Non-Af 109, BUN/Creatinine Ratio 27.6 H, Glucose 120 H, Calcium 9.0 Microbiology: Microbiology 03/22/21 09:30 Nasal Secretion SARS-CoV-2 Antigen (Rapid) - Final 03/20/21 14:50 Urine, Clean Catch Legionella Antigen - Final 03/20/21 14:50 Urine, Clean Catch Streptococcus pneumoniae Antigen (M - Final 03/20/21 03:52 Nasal Secretion SARS-CoV-2 Antigen (Rapid) - Final D/C Instructions Discharge Diet: No restrictions Discharge Activity: Return to Normal Activity Meaningful Use Info Meaningful Use Diagnoses (Choose all that apply): None applicable Discharge Plan Admission Admit Date/Time: 03/20/21 06:18 Attending Provider: Joie Lopez Primary Care Provider: Antwan Buchanan Instructions Additional Instructions / Restrictions: 1. Recommend follow-up with a software test analyst after discharge please see information below and call Tuesday for an appointment 2. Take antibiotics and steroids until they are completed 3. Would recommend vaccination with COVID-19 vaccine 4. Please wear oxygen as ordered at 2 L 5. With Covid exposure at home and unvaccinated status would quarantine for 10 days and get tested if you develop worsening respiratory status or other signs and symptoms consistent with COVID-19 infection Discharge Orders/Prescriptions Prescriptions: New prednisone 10 mg tablet 10 mg PO DAILY Qty: 30 RF: 0 levofloxacin 750 mg tablet 750 mg PO DAILY Qty: 4 RF: 0 nystatin 100,000 unit/mL suspension 100,000 unit PO DAILY Qty: 60 RF: 0 Continued Spiriva with HandiHaler 1 PUFF inhaler 1 puff inhalation DAILY RF: 0 sertraline 100 MG tablet 100 mg PO DAILY RF: 0 trazodone 50 mg tablet 100 mg PO DAILY RF: 0 pantoprazole 40 mg tablet,delayed release (DR/EC) 40 mg PO BID RF: 0 budesonide-formoterol [Symbicort] 160-4.5 mcg/actuation HFA aerosol inhaler 2 puff INHALATION BID RF: 0 Referrals / Follow Up: Andi Mckeon MD [STAFF PHYSICIAN] - Within 3 Months (for lungs) Antwan Buchanan DO [Primary Care Provider] - Within 2 Weeks Disposition Disposition (needs filled in before D/C Order can be placed): Home, Self Care Charges/Coding Visit Charges Inpatient E&M: 30104 Disch Hosp
--- NOTE | 2021-03-22 15:49 | NURSING ---
1530 pt discharge paperwork reviewed and given to patient. instructed patient he needs to wait for delivery of Portable O2 tank to go home. Patient stated ride is here now. Reinforced with Patient he needs to wait for O2 tank to go home. charge nurse paul. Carol Babin RN
--- NOTE | 2021-03-22 15:58 | PCA ---
PT called adamant about leaving without his portable o2 tank from [facility]. PT called for ride himself and did not wait until discharge was completed. PT aware we are just waiting on portable tank and that when the tank gets delivered here, then he can be discharged. PT states his ride can only wait five more minutes, and then they are leaving and PT will not have a ride home. Explained to patient that he will not have a portable tank for his ride home and he is okay with that and states he has his concentrator at home. Primary RN aware. Will place call to [facility] and make them aware that the patient is no longer at the hospital and that the portable tank will need to be delivered to his home.
--- NOTE | 2021-03-22 16:05 | NURSING ---
1600 patient left without portable O2 tank. reinforced with patient he will have no O2 for ride home, patient verbalized understanding. patient has O2 concentrator at home. charge nurse aware. Carol Babin RN
== END 2021-03-22 16:00 | disposition home or self-care (01) | DRG 140 ==
LOC: ED 04:15 → MS3 06:57
PROVIDERS: Admitting Provider Hospitalist; Emergency Provider Emergency Medicine; PCP Student in an Organized Health Care Education/Training Program; Visit Provider Internal Medicine
DX: J44.1 Chronic obstructive pulmonary disease with (acute) exacerbation (principal); J96.21 Acute and chronic respiratory failure with hypoxia; J18.9 Pneumonia, unspecified organism; J44.0 Chronic obstructive pulmonary disease with (acute) lower respiratory infection; K21.9 Gastro-esophageal reflux disease without esophagitis; E87.6 Hypokalemia; F17.210 Nicotine dependence, cigarettes, uncomplicated; F41.9 Anxiety disorder, unspecified; Z20.822 Contact with and (suspected) exposure to COVID-19; F32.A Depression, unspecified; Z79.51 Long term (current) use of inhaled steroids; Z79.899 Other long term (current) drug therapy
CPT/HCPCS: 36415; 71045; 80048; 83735; 84484; 85025; 85379; 87426; 87449; 87635; 93005; 94640; 94667; 94668; 94762; 97802; 99285; A4216; J2405; U0003; U0005

== ENCOUNTER 2021-08-15 11:41 | Observation (INO) | payer MEDICAID, SELFPAY ==
[2021-08-15] VITALS (12 sets, daily range): BP systolic 116–136; BP diastolic 74–108; PULSE 87–117; RESP 16–22; TEMP 36.6–37.3; O2SAT 93–96; BMI 19.3
--- NOTE | 2021-08-15 11:54 | EKG12_ITS ---
Test Reason : SOB Blood Pressure : / mmHG Vent. Rate : 102 BPM Atrial Rate : 102 BPM P-R Int : 128 ms QRS Dur : 074 ms QT Int : 328 ms P-R-T Axes : 085 083 067 degrees QTc Int : 427 ms Sinus tachycardia Right atrial enlargement Nonspecific T wave abnormality Abnormal ECG Confirmed by GENESIS YADAV, NAN ([id number]), editor in chief DAYAMI OLIVO ([id number]) on 08/17/2021 12:42:57 PM Referred By: SYLVIA Confirmed By:NAN HURTADO MD
--- NOTE | 2021-08-15 11:56 | EDS_ITS ---
HPI History of Present Illness Chief Complaint: Shortness of Breath Informant: patient Onset/Context/Timing Onset: Yesterday Context: gradual Current Severity: Mild Maximum Severity: Moderate Associated Symptoms cough; Negative for fever Chest Pain: Positive for None Narrative Narrative: Patient presents via EMS secondary to shortness of breath. He has a history of emphysema and is on home O2 at 2 and half to 3 L. Patient states his breathing was not quite normal yesterday but worse when he woke this morning. His home pulse ox was reading between 82 and 90%. He tried his breathing treatments without much improvement. He did receive a DuoNeb treatment with EMS and is feeling somewhat improved at this time. He denies chest pain. He is coughing but not bringing up any sputum. He denies fever or chills. [facility] Medical History Alcohol abuse Anxiety COPD (chronic obstructive pulmonary disease) Depression Exposure to COVID-19 virus History of bacterial pneumonia Smoker TIA (transient ischemic attack) Ulcer Home Medications Spiriva with HandiHaler 1 puff INHALATION DAILY 06/05/14 [History Last Taken 03/19/21] sertraline 100 mg PO DAILY 11/19/14 [History Last Taken 03/19/21] budesonide-formoterol [Symbicort] 2 puff INHALATION BID 03/20/21 [History Last Taken 03/19/21] pantoprazole 40 mg PO BID 03/20/21 [History Last Taken 03/19/21] trazodone 100 mg PO DAILY 03/20/21 [History Last Taken 03/18/21] levofloxacin 750 mg PO DAILY #4 tab 03/22/21 [Rx Last Taken Unknown] nystatin 100,000 unit PO DAILY #60 ml 03/22/21 [Rx Last Taken Unknown] prednisone 10 mg PO DAILY #30 tab 03/22/21 [Rx Last Taken Unknown] Allergy/AdvReac Type Severity Reaction Status Date / Time tramadol HCl [From [facility]] Allergy Swelling Verified 08/15/21 11:46 codeine AdvReac PT UNSURE Verified 08/15/21 11:46 OF REACTION Family History Other Cancer Surgical History History of chest tube placement History of herniorrhaphy History of tonsillectomy History of tracheostomy Social History Smoking Status: Former smoker ROS ROS ED Constitutional Constitutional ED: Denies chills or fever(s) Eyes Eyes: Denies change in vision ENT ENT ED: Denies sore throat Cardiovascular Cardiovascular: Denies chest pain Respiratory/Chest Respiratory/Chest: Reports cough and dyspnea; Denies sputum Gastrointestinal Gastrointestinal: Denies abdominal pain, diarrhea, nausea or vomiting Genitourinary Genitourinary ED: Denies dysuria Musculoskeletal Musculoskeletal: Denies back pain or neck pain Integumentary Denies rash Neurologic Neurologic: Denies headache(s) or weakness Psychiatric Psychiatric: Denies anxiety or depression Allergic/Immunologic Allergic/Immunologic ED: Denies urticaria EXAM Physical Exam Const Vital Signs: 08/15/21 11:42 08/15/21 11:48 08/15/21 12:13 Temperature 97.8 F 97.8 F Temperature Source Temporal Temporal Pulse Rate 113 H 113 H 117 H Respiratory Rate 22 H 22 H 19 H Respiratory Effort Short of Breath Respiratory Depth Normal Respiratory Pattern Tachypnea Normal Blood Pressure 128/108 H 128/108 H Blood Pressure Mean 114 114 Pulse Ox 96 96 Oxygen Delivery Method Nasal Cannula Nasal Cannula Oxygen Flow Rate (L/min) 2 2 08/15/21 12:51 08/15/21 13:14 Temperature 97.8 F 97.9 F Temperature Source Temporal Temporal Pulse Rate 117 H 109 H Respiratory Rate 20 H 16 Respiratory Effort Respiratory Depth Respiratory Pattern Blood Pressure 136/91 H 136/90 H Blood Pressure Mean 106 105 Pulse Ox 94 93 Oxygen Delivery Method Nasal Cannula Nasal Cannula Oxygen Flow Rate (L/min) 2 2 Positive well nourished and well developed General Appearance ED: well developed HEENT Reports moist mucous membranes Eyes PERRL and EOMs intact bilaterally Neck supple Resp normal respiratory effort Resp Narrative: Slight expiratory wheeze throughout. Cardio regular rhythm Rate: tachycardic GI non-tender Palpation: soft Extremity normal to inspection Neuro oriented x3 Sensorium / Orientation: alert Psych mental status grossly normal Skin Lesions: no lesions Rashes: no rashes MDM MDM MDM Narrative Medical decision making narrative: Patient had received DuoNeb with EMS. Additional albuterol treatments given here. EKG, chest x-ray, lab work obtained. COVID and influenza swabs ordered. Patient given IV Solu-Medrol. Lab Data Attestation: I reviewed the patient's lab results. Labs: Laboratory Results - last 24 hr 08/15/21 08/15/21 12:10 12:10 WBC 12.4 H RBC 5.03 Hgb 14.5 Hct 44.5 MCV 88.5 MCH 28.8 MCHC 32.6 RDW Std Deviation 42.5 RDW Coeff of Maya 13.2 Plt Count 336 MPV 9.4 Immature Gran % (Auto) 0.600 Neut % (Auto) 79.9 H Lymph % (Auto) 11.8 L [place] % (Auto) 5.8 Eos % (Auto) 1.6 Baso % (Auto) 0.3 Absolute Neuts (auto) 9.9 H Absolute Lymphs (auto) 1.46 Nucleated RBC % 0 Sodium 139 Potassium 3.3 L Chloride 104 Carbon Dioxide 29.0 Anion Gap 6 BUN 15 Creatinine 0.96 Estim Creat Clear Calc 79.73 Est GFR (MDRD) Af Amer 107 Est GFR (MDRD) Non-Af 88 BUN/Creatinine Ratio 15.7 Glucose 113 H Calcium 9.5 Troponin I High Sens < 3 L Radiography Chest X-Ray - ED: 1 View, Read by ED Physician, Chronic Changes and No Infiltrates Diagnostic Testing: Clinical Impression(s) from Imaging Studies Chest X-Ray 08/15/21 12:18 IMPRESSION: 1. COPD changes. 2. Atelectasis or scarring in the lower lungs. 3. No new infiltrate is seen. Electronically Signed: Jorge William MD at 12:32 EDT , EKG Initial EKG: Attestation: I personally reviewed and interpreted this EKG as follows: Interpretation: Sinus Tachycardia (Sinus tach at 102. Mild ST depression in the inferior and lateral precordial leads.) Treatment and Re-Evaluation Narrative: Lab work remarkable for white count slightly elevated at 12.4 with slight left shift. Potassium is slightly low at 3.3. Troponin negative. COVID and influenza swabs are negative. Chest x-ray per my interpretation reveals chronic changes with hyperinflation but no evidence of focal infiltrate. Radiology to rotation is also reviewed. On repeat evaluation patient resting comfortably. O2 sat 92% on 2 L. He is still tachycardic around 105. Lung sounds with expiratory wheezes. I do feel he will require further treatment and pulmonary toilet. He will be covered with a dose of Zithromax at this time. Discharge Plan Triage Chief Complaint: Shortness of Breath ED Provider: Gisela Cunningham Dx/Rx/DC Orders Clinical Impression: COPD exacerbation Instructions: ED COPD Flare Prescriptions: No Action Spiriva with HandiHaler 1 PUFF inhaler 1 puff inhalation DAILY RF: 0 sertraline 100 MG tablet 100 mg PO DAILY RF: 0 trazodone 50 mg tablet 100 mg PO DAILY RF: 0 pantoprazole 40 mg tablet,delayed release (DR/EC) 40 mg PO BID RF: 0 budesonide-formoterol [Symbicort] 160-4.5 mcg/actuation HFA aerosol inhaler 2 puff INHALATION BID RF: 0 prednisone 10 mg tablet 10 mg PO DAILY Qty: 30 RF: 0 levofloxacin 750 mg tablet 750 mg PO DAILY Qty: 4 RF: 0 nystatin 100,000 unit/mL suspension 100,000 unit PO DAILY Qty: 60 RF: 0 Primary Care Provider: Antwan Buchanan Referrals: Antwan Buchanan DO [Primary Care Provider] - Disposition Disposition: Acute Care Hospital [facility]
[2021-08-15] MEDS: Albuterol 2.5 MG/3 ML VIAL.NEB. INHALATION ×3 (12:12→12:13)
[2021-08-15] MEDS: MethylPREDNISolone 125 MG/2 ML Vial 100 MG IV (12:14)
--- NOTE | 2021-08-15 12:18 | RAD_ITS ---
STUDY: X-RAY CHEST REASON FOR EXAM: Male, 50 years old. Shortness of breath TECHNIQUE: Single AP portable view of the chest. COMPARISON: 03/20/2021. FINDINGS: There is hyperinflation of the lungs consistent with chronic obstructive lung disease (COPD). Atelectasis or scarring in the lower lungs unchanged. No new infiltrate is seen. There is no demonstrated pleural abnormality. Normal size heart. Normal mediastinum and catherine. Normal visualized pulmonary arteries. Normal visualized aortic arch and descending thoracic aorta. Stable soft tissues and osseous structures. There is no demonstrated abnormality of the visualized soft tissue structures of the upper abdomen. RAD/Chest 1 View (Portable) IMPRESSION: 1. COPD changes. 2. Atelectasis or scarring in the lower lungs. 3. No new infiltrate is seen. Electronically Signed: Jorge William MD at 12:32 EDT ,
[2021-08-15 12:32] LABS: Absolute Lymphocyte Count 1.46 X10^3/uL (0.83-4.51); Absolute Neutrophil Count 9.9 X10^3/uL (2.0-7.7); Basophil# 0.04 X10^3/uL; Basophil% 0.3 % (0-1); Eosinophils% 1.6 % (0-5); Hematocrit 44.5 % (40-54); Hemoglobin 14.5 g/dL (13.0-16.5); Lymphocyte # 1.46 X10^3/ul (0.83-4.51); Lymphocyte % 11.8 % (19-41); Mean Corp Hgb Conc 32.6 g/dL (32-36); Mean Corpuscular Hgb 28.8 pg (27.0-32.0); Mean Corpuscular Volume 88.5 fL (80-94); Mean Platelet Vol. 9.4 fl (6.2-12.0); Monocyte# 0.72 X10^3/uL; Monocyte% 5.8 % (0-10); NRBC Flagged by Analyzer 0 % (0-5); Neutrophil # 9.88 X10^3/uL (2.7-7.7); Neutrophil % 79.9 % (47-70); Platelet Count 336 K/mm3 (150-450); RBC Distribution Width CV 13.2 % (11.6-14.6); RBC Distribution Width SD 42.5 fl (35.1-43.9); Red Blood Count 5.03 M/mm3 (4.6-6.2); White Blood Count 12.4 K/mm3 (4.4-11.0)
[2021-08-15 12:46] LABS: Anion Gap 6 (5-15); BUN 15 mg/dL (7-18); BUN/Creat Ratio 15.7 RATIO (10-20); Calcium,Total 9.5 mg/dL (8.5-10.1); Chloride 104 mmol/L (98-107); Creatinine, Serum 0.96 mg/dL (0.70-1.30); EST Glomerular Filtration Rate 88 mL/min (>60); Est Glom Filt Rate - Afr Amer 107 mL/min (>60); Estimated Creatinine Clearance 79.73 ml/min; Glucose 113 mg/dL (74-106); Potassium 3.3 mmol/L (3.5-5.1); Sodium Level 139 mmol/L (136-145); Troponin-I HS < 3 pg/mL (3.0-78.0)
--- NOTE | 2021-08-15 14:00 | HP.PCM.HOS_ITS ---
HPI - General HPI Narrative LUIS AVILA, is a 50 M with a PMH as outlined who presents via the ED on 08/15/2021 with a complaint of shortness of breath. He is on home oxygen for COPD and wears 2-3L. His shortness of breath started 2-3 days ago, and he was saturating in the 80s. He used his breathing treatments at home, to no avail, so he decided to come in to the ED. he denied any fever, chills, nausea or vomiting. He had a cough but was nonproductive. Review of systems otherwise negative. Vitals in the ED were blood pressure of 136/90 with pulse rate of 109 and respiratory rate of 16. Temperature was 97.9 Fahrenheit and he was saturating at 93% on 2 L of oxygen. CBC showed hemoglobin of 14.5 and WBC of 12.4 and platelets of 336. Chemistry was significant for potassium of 3.3 but was otherwise unremarkable and troponin was not elevated. Chest x-ray showed hyperinflation consistent with COPD but no infiltrate. He has been admitted to be managed for acute exacerbation of COPD. [facility] Medical History Alcohol abuse Anxiety COPD (chronic obstructive pulmonary disease) Depression Exposure to COVID-19 virus History of bacterial pneumonia Smoker TIA (transient ischemic attack) Ulcer Home Medications Spiriva with HandiHaler 1 puff INHALATION DAILY 06/05/14 [History Last Taken 03/19/21] sertraline 100 mg PO DAILY 11/19/14 [History Last Taken 03/19/21] budesonide-formoterol [Symbicort] 2 puff INHALATION BID 03/20/21 [History Last Taken 03/19/21] pantoprazole 40 mg PO BID 03/20/21 [History Last Taken 03/19/21] trazodone 100 mg PO DAILY 03/20/21 [History Last Taken 03/18/21] nystatin 100,000 unit PO DAILY #60 ml 03/22/21 [Rx Last Taken Unknown] prednisone 10 mg PO DAILY #30 tab 03/22/21 [Rx Last Taken Unknown] Allergy/AdvReac Type Severity Reaction Status Date / Time tramadol HCl [From Ultr[facility]] Allergy Swelling Verified 08/15/21 11:46 codeine AdvReac PT UNSURE Verified 08/15/21 11:46 OF REACTION Family History Other Cancer Surgical History History of chest tube placement History of herniorrhaphy History of tonsillectomy History of tracheostomy Social History Smoking Status: Former smoker ROS Constitutional Constitutional: Denies anorexia, chills, fatigue, fever(s), malaise or weakness Eyes Eyes: Denies change in vision ENT HEENT: Denies headache(s), nasal congestion, nasal discharge or sore throat Cardiovascular Cardiovascular: Reports dyspnea on exertion; Denies chest pain, lightheadedness, orthopnea, paroxysmal nocturnal dyspnea, rapid heart rate or syncope Respiratory/Chest Respiratory/Chest: Reports cough, dyspnea, shortness of breath at rest, shortness of breath with exertion and wheezing; Denies excessive phlegm production, hemoptysis or productive cough Gastrointestinal Gastrointestinal: Denies abdominal pain, constipation, diarrhea, nausea or vomiting Genitourinary Genitourinary: Denies burning urination or dysuria Musculoskeletal Musculoskeletal: Denies arthralgias Neurologic Neurologic: Reports dizziness; Denies confusion, focal weakness, headache(s), syncope or tremor(s) Psychiatric Psychiatric: Denies anxiety or depression Endocrine Endocrinology: Denies change in body appearance Hematologic/Lymphatic Hematologic/Lymphatic: Reports anemia Vital Signs Vital Signs Vital Signs: 08/15/21 11:42 08/15/21 11:48 08/15/21 12:13 Temperature 97.8 F 97.8 F Temperature Source Temporal Temporal Pulse Rate 113 H 113 H 117 H Respiratory Rate 22 H 22 H 19 H Respiratory Effort Short of Breath Respiratory Depth Normal Respiratory Pattern Tachypnea Normal Blood Pressure 128/108 H 128/108 H Blood Pressure Mean 114 114 Pulse Ox 96 96 Oxygen Delivery Method Nasal Cannula Nasal Cannula Oxygen Flow Rate (L/min) 2 2 08/15/21 12:51 08/15/21 13:14 Temperature 97.8 F 97.9 F Temperature Source Temporal Temporal Pulse Rate 117 H 109 H Respiratory Rate 20 H 16 Respiratory Effort Respiratory Depth Respiratory Pattern Blood Pressure 136/91 H 136/90 H Blood Pressure Mean 106 105 Pulse Ox 94 93 Oxygen Delivery Method Nasal Cannula Nasal Cannula Oxygen Flow Rate (L/min) 2 2 Weight Weight: 135 lb Body Mass Index (BMI) 19.3 Physical Exam Const alert, oriented x3 and no apparent distress General Appearance: cooperative HEENT normocephalic, head/scalp atraumatic, hearing grossly normal bilaterally and moist oral mucous membranes Eyes PERRL, EOMs intact bilaterally and conjunctivae normal Neck no lymphadenopathy, supple and no JVD Resp Resp Narrative: diminished breath sounds bibasally, no wheezes or crackles. On 2L of oxygen by nasal canula. Cardio regular rate, regular rhythm, S1 normal heart sound, S2 normal heart sound and n o murmurs GI normal to inspection, nondistended, normoactive bowel sounds, soft to palpation, non-tender and non-distended Extremity normal to inspection, full ROM and no clubbing, cyanosis or edema Peripheral Pulses: Yes pulses 2+ throughout Skin no rashes or lesions noted Neuro oriented x3, CN's II-XII intact bilaterally and moves all extremities Sensorium / Orientation: awake and alert Psych affect normal Results Lab / Micro Data Result Diagrams: 08/15/21 12:10 08/15/21 12:10 Labs: Laboratory Results - last 24 hr 08/15/21 12:10: WBC 12.4 H, RBC 5.03, Hgb 14.5, Hct 44.5, MCV 88.5, MCH 28.8, MCHC 32.6, RDW Std Deviation 42.5, RDW Coeff of Maya 13.2, Plt Count 336, MPV 9.4, Immature Gran % (Auto) 0.600, Neut % (Auto) 79.9 H, Lymph % (Auto) 11.8 L, Crisp % (Auto) 5.8, Eos % (Auto) 1.6, Baso % (Auto) 0.3, Absolute Neuts (auto) 9. 9 H, Absolute Lymphs (auto) 1.46, Nucleated RBC % 0 08/15/21 12:10: Sodium 139, Potassium 3.3 L, Chloride 104, Carbon Dioxide 29.0, Anion Gap 6, BUN 15, Creatinine 0.96, Estim Creat Clear Calc 79.73, Est GFR (MDRD) Af Amer 107, Est GFR (MDRD) Non-Af 88, BUN/Creatinine Ratio 15.7, Glucose 113 H, Calcium 9.5, Troponin I High Sens < 3 L Micro: Microbiology 08/15/21 12:05 Nasal Secretion SARS-CoV-2 & FLU Antigen (Rapid) - Final Radiology Impression Chest X-Ray 08/15/21 12:18 IMPRESSION: 1. COPD changes. 2. Atelectasis or scarring in the lower lungs. 3. No new infiltrate is seen. Electronically Signed: Jorge William MD at 12:32 EDT , Assessment & Plan Assessment/Plan (1) COPD exacerbation: PLAN: #Acute COPD exacerbation * admit to med surg with telemetry * start on IV solumedrol * breathing treatment with bronchodilators * titrate oxygen to maintain sats >90% * #Chronic respiratory failure due to COPD * on 2L of oxygen which is his baseline at home * titrate oxygen to maintain sats >90% * on spiriva * #Depression; on sertraline #GERD; on PPI DVT prophylaxis: Lovenox Charges/Coding Visit Charges OBSV E&M: 65030 Initial observation care L3
[2021-08-15] MEDS: 0.9% Normal Saline 1,000 ML 125 ML IV ×2 (17:13→22:45)
[2021-08-15] MEDS: Ipratropium/Albuterol Sulfate 3 ML AMPUL.NEB INHALATION (19:16)
[2021-08-15] MEDS: Acetaminophen 325 MG Tablet 650 MG PO (19:38)
[2021-08-15] MEDS: Pantoprazole Sodium 40 MG Tablet PO (20:43)
[2021-08-15] MEDS: 0.9% Saline Lock 10 ML Syringe IV (20:44)
[2021-08-16] VITALS (13 sets, daily range): BP systolic 97–146; BP diastolic 67–81; PULSE 81–103; RESP 18–20; TEMP 36.6–36.7; O2SAT 94–97
[2021-08-16] MEDS: Ipratropium/Albuterol Sulfate 3 ML AMPUL.NEB INHALATION ×4 (01:25→19:07)
[2021-08-16 07:02] LABS: Absolute Lymphocyte Count 0.79 X10^3/uL (0.83-4.51); Absolute Neutrophil Count 11.6 X10^3/uL (2.0-7.7); Basophil# 0.01 X10^3/uL; Basophil% 0.1 % (0-1); Hematocrit 36.8 % (40-54); Hemoglobin 11.8 g/dL (13.0-16.5); Lymphocyte # 0.79 X10^3/ul (0.83-4.51); Lymphocyte % 6.1 % (19-41); Mean Corp Hgb Conc 32.1 g/dL (32-36); Mean Corpuscular Hgb 28.5 pg (27.0-32.0); Mean Corpuscular Volume 88.9 fL (80-94); Mean Platelet Vol. 9.5 fl (6.2-12.0); Monocyte# 0.55 X10^3/uL; Monocyte% 4.2 % (0-10); NRBC Flagged by Analyzer 0 % (0-5); Neutrophil # 11.55 X10^3/uL (2.7-7.7); Neutrophil % 89.2 % (47-70); Platelet Count 322 K/mm3 (150-450); RBC Distribution Width CV 13.3 % (11.6-14.6); RBC Distribution Width SD 43.6 fl (35.1-43.9); Red Blood Count 4.14 M/mm3 (4.6-6.2)
[2021-08-16] MEDS: 0.9% Saline Lock 10 ML Syringe IV ×2 (07:04→23:17)
[2021-08-16 07:42] LABS: Anion Gap 7 (5-15); BUN 13 mg/dL (7-18); BUN/Creat Ratio 16.1 RATIO (10-20); Chloride 106 mmol/L (98-107); Creatinine, Serum 0.81 mg/dL (0.70-1.30); EST Glomerular Filtration Rate 107 mL/min (>60); Est Glom Filt Rate - Afr Amer 130 mL/min (>60); Estimated Creatinine Clearance 94.15 ml/min; Glucose 126 mg/dL (74-106); Potassium 3.6 mmol/L (3.5-5.1); Sodium Level 140 mmol/L (136-145)
[2021-08-16] MEDS: Aspirin E.C. 81 MG Tablet PO (09:00)
[2021-08-16] MEDS: Sertraline 100 MG Tablet PO (09:01)
[2021-08-16] MEDS: buPROPion (XL) 300 MG TABLET.XL PO (09:01)
[2021-08-16] MEDS: Pantoprazole Sodium 40 MG Tablet PO ×2 (09:01→23:15)
[2021-08-16] MEDS: Enoxaparin 40 MG/0.4 ML Syringe SC (09:02)
[2021-08-16] MEDS: Acetaminophen 325 MG Tablet 650 MG PO ×2 (09:09→19:57)
--- NOTE | 2021-08-16 10:21 | PN.HOSP_ITS ---
Subjective Subjective Patient seen and examined. He feels much better today. Shortness of breath has improved. he denies any cough, chest pain, palpitations, dizziness, nausea or vomiting. Review of systems is otherwise negative. Objective Data Objective Data Vital Signs: Vital Signs Temp Pulse Resp BP Pulse Ox 97.9 F 82 20 H 97/67 95 08/16/21 04:51 08/16/21 07:08 08/16/21 09:00 08/16/21 04:51 08/16/21 09:00 Oxygen Flow Rate (L/min) 2 Oxygen Delivery Method Nasal Cannula Weight: 134 lb 8 oz Body Mass Index (BMI) 19.3 Intake & Output: Intake and Output for Last 24 Hours 08/14/21 08/15/21 08/16/21 23:59 23:59 23:59 Intake Total 2796.67 / 2796.67 1000 / 1000 Balance 2796.67 / 2796.67 1000 / 1000 Lab / Micro Data Result Diagrams: 08/16/21 06:05 08/16/21 06:05 Labs: Laboratory Results - last 24 hr 08/15/21 12:10: WBC 12.4 H, RBC 5.03, Hgb 14.5, Hct 44.5, MCV 88.5, MCH 28.8, MCHC 32.6, RDW Std Deviation 42.5, RDW Coeff of Maya 13.2, Plt Count 336, MPV 9.4, Immature Gran % (Auto) 0.600, Neut % (Auto) 79.9 H, Lymph % (Auto) 11.8 L, [place] % (Auto) 5.8, Eos % (Auto) 1.6, Baso % (Auto) 0.3, Absolute Neuts (auto) 9.9 H, Absolute Lymphs (auto) 1.46, Nucleated RBC % 0 08/15/21 12:10: Sodium 139, Potassium 3.3 L, Chloride 104, Carbon Dioxide 29.0, Anion Gap 6, BUN 15, Creatinine 0.96, Estim Creat Clear Calc 79.73, Est GFR (MDRD) Af Amer 107, Est GFR (MDRD) Non-Af 88, BUN/Creatinine Ratio 15.7, Glucose 113 H, Calcium 9.5, Troponin I High Sens < 3 L 08/16/21 06:05: WBC 13.0 H, RBC 4.14 L, Hgb 11.8 L, Hct 36.8 L, MCV 88.9, MCH 28.5, MCHC 32.1, RDW Std Deviation 43.6, RDW Coeff of Maya 13.3, Plt Count 322, MPV 9.5, Immature Gran % (Auto) 0.400, Neut % (Auto) 89.2 H, Lymph % (Auto) 6.1 L, [place] % (Auto) 4.2, Eos % (Auto) 0.0, Baso % (Auto) 0.1, Absolute Neuts (auto) 11.6 H, Absolute Lymphs (auto) 0.79 L, Nucleated RBC % 0 08/16/21 06:05: Sodium 140, Potassium 3.6, Chloride 106, Carbon Dioxide 27.0, Anion Gap 7, BUN 13, Creatinine 0.81, Estim Creat Clear Calc 94.15, Est GFR (MDRD) Af Amer 130, Est GFR (MDRD) Non-Af 107, BUN/Creatinine Ratio 16.1, Glucose 126 H, Calcium 9.0 Micro: Microbiology 08/15/21 12:05 Nasal Secretion SARS-CoV-2 & FLU Antigen (Rapid) - Final Radiography Diagnostic Testing: Radiology Impression Chest X-Ray 08/15/21 12:18 IMPRESSION: 1. COPD changes. 2. Atelectasis or scarring in the lower lungs. 3. No new infiltrate is seen. Electronically Signed: Jorge William MD at 12:32 EDT , Physical Exam Const alert, oriented x3 and no apparent distress General Appearance: cooperative Exam Limitations: no limitations HEENT normocephalic, head/scalp atraumatic, hearing grossly normal bilaterally and moist oral mucous membranes Head and Scalp: normocephalic Eyes PERRL, EOMs intact bilaterally and conjunctivae normal Neck no lymphadenopathy, supple and no JVD Resp Resp Narrative: diminished breath sounds bibasally, no wheezes or crackles. On 2L of oxygen by nasal canula. Cardio regular rate, regular rhythm, S1 normal heart sound, S2 normal heart sound and no murmurs GI normal to inspection, nondistended, normoactive bowel sounds, soft to palpation, non-tender and non-distended Extremity normal to inspection, full ROM and no clubbing, cyanosis or edema Peripheral Pulses: Yes pulses 2+ throughout Skin no rashes or lesions noted Neuro oriented x3, CN's II-XII intact bilaterally and moves all extremities Sensorium / Orientation: awake and alert Psych affect normal Assessment & Plan Assessment/Plan (1) COPD exacerbation: PLAN: #Acute COPD exacerbation * feels much better today * on IV solumedrol and IV azithromycin * breathing treatment with bronchodilators * titrate oxygen to maintain sats >90% * now has a productive cough, so will get sputum culture * #Chronic respiratory failure due to COPD * on 2L of oxygen which is his baseline at home * titrate oxygen to maintain sats >90% * on spiriva * #Depression; on sertraline #GERD; on PPI DVT prophylaxis: Lovenox Disposition: anticipate discharge over the next 24-48 hours Charges/Coding Visit Charges OBSV E&M: 63767 Subsequent observation care L2
[2021-08-17] VITALS (11 sets, daily range): BP systolic 112–125; BP diastolic 48–84; PULSE 80–113; RESP 18–20; TEMP 36.4–37.1; O2SAT 96–99
[2021-08-17] MEDS: Ipratropium/Albuterol Sulfate 3 ML AMPUL.NEB INHALATION ×3 (00:29→13:19)
[2021-08-17] MEDS: 0.9% Saline Lock 10 ML Syringe IV ×3 (05:23→14:27)
[2021-08-17 06:09] LABS: Absolute Lymphocyte Count 0.69 X10^3/uL (0.83-4.51); Absolute Neutrophil Count 10.3 X10^3/uL (2.0-7.7); Basophil# 0.01 X10^3/uL; Basophil% 0.1 % (0-1); Hematocrit 37.1 % (40-54); Hemoglobin 11.6 g/dL (13.0-16.5); Lymphocyte # 0.69 X10^3/ul (0.83-4.51); Mean Corp Hgb Conc 31.3 g/dL (32-36); Mean Corpuscular Hgb 28.3 pg (27.0-32.0); Mean Corpuscular Volume 90.5 fL (80-94); Mean Platelet Vol. 9.3 fl (6.2-12.0); Monocyte# 0.43 X10^3/uL; Monocyte% 3.7 % (0-10); NRBC Flagged by Analyzer 0 % (0-5); Neutrophil # 10.27 X10^3/uL (2.7-7.7); Neutrophil % 89.4 % (47-70); Platelet Count 298 K/mm3 (150-450); RBC Distribution Width CV 13.2 % (11.6-14.6); RBC Distribution Width SD 44.1 fl (35.1-43.9); White Blood Count 11.5 K/mm3 (4.4-11.0)
[2021-08-17 06:45] LABS: Anion Gap 3 (5-15); BUN 16 mg/dL (7-18); BUN/Creat Ratio 17.8 RATIO (10-20); Calcium,Total 9.1 mg/dL (8.5-10.1); Chloride 106 mmol/L (98-107); EST Glomerular Filtration Rate 95 mL/min (>60); Est Glom Filt Rate - Afr Amer 115 mL/min (>60); Estimated Creatinine Clearance 84.73 ml/min; Glucose 134 mg/dL (74-106); Potassium 3.8 mmol/L (3.5-5.1); Sodium Level 139 mmol/L (136-145)
--- NOTE | 2021-08-17 08:29 | PN.HOSP_ITS ---
Subjective Subjective Feels better today. Able to go up and back to the bathroom. Patient on 2 L of oxygen. At home he is on 2 and half to 3 L oxygen. Does note that his mother and father both had COPD. He is unsure if he has been tested Meron genetic predisposition to COPD. Objective Data Objective Data Vital Signs: Vital Signs Temp Pulse Resp BP Pulse Ox 36.4 C L 83 18 115/76 97 08/17/21 05:15 08/17/21 06:07 08/17/21 05:15 08/17/21 05:15 08/17/21 05:15 Oxygen Flow Rate (L/min) 2 Oxygen Delivery Method Nasal Cannula Weight: 61.008 kg Body Mass Index (BMI) 19.3 Intake & Output: Intake and Output for Last 24 Hours 08/15/21 08/16/21 08/17/21 23:59 23:59 23:59 Intake Total 2796.67 / 2796.67 2505 / 2905 400 / 400 Balance 2796.67 / 2796.67 2505 / 2905 400 / 400 Lab / Micro Data Result Diagrams: 08/17/21 05:50 08/17/21 05:50 Labs: Laboratory Results - last 24 hr 08/17/21 05:50: WBC 11.5 H, RBC 4.10 L, Hgb 11.6 L, Hct 37.1 L, MCV 90.5, MCH 28.3, MCHC 31.3 L, RDW Std Deviation 44.1 H, RDW Coeff of Maya 13.2, Plt Count 298, MPV 9.3, Immature Gran % (Auto) 0.800, Neut % (Auto) 89.4 H, Lymph % (Auto) 6.0 L, [place] % (Auto) 3.7, Eos % (Auto) 0.0, Baso % (Auto) 0.1, Absolute Neuts (auto) 10.3 H, Absolute Lymphs (auto) 0.69 L, Nucleated RBC % 0 08/17/21 05:50: Sodium 139, Potassium 3.8, Chloride 106, Carbon Dioxide 30.0, Anion Gap 3 L, BUN 16, Creatinine 0.90, Estim Creat Clear Calc 84.73, Est GFR (MDRD) Af Amer 115, Est GFR (MDRD) Non-Af 95, BUN/Creatinine Ratio 17.8, Glucose 134 H, Calcium 9.1 Micro: Microbiology 08/15/21 12:05 Nasal Secretion SARS-CoV-2 & FLU Antigen (Rapid) - Final Physical Exam Const alert and no apparent distress Resp normal respiratory effort, no retractions, no use of accessory muscles and clear to auscultation bilaterally Cardio regular rate, regular rhythm, S1 normal heart sound and S2 normal heart sound GI normal to inspection, nondistended, normoactive bowel sounds, soft to palpation and non-tender Assessment & Plan Assessment/Plan (1) COPD exacerbation: PLAN: 1. Acute COPD exacerbation * feels much better today * on IV solumedrol and IV azithromycin * breathing treatment with bronchodilators * titrate oxygen to maintain sats >90% * now has a productive cough, so will get sputum culture * COVID 19, strep and legionella antigens negative * Changed to a 5-day course of 40 mg of prednisone. 2. Chronic respiratory failure due to COPD * on 2L of oxygen which is his baseline at home * titrate oxygen to maintain sats >90% * on spiriva #3. Depression; on sertraline 4. GERD; on PPI DVT prophylaxis: Lovenox
[2021-08-17] MEDS: Sertraline 100 MG Tablet PO (10:33)
[2021-08-17] MEDS: Aspirin E.C. 81 MG Tablet PO (10:33)
[2021-08-17] MEDS: Pantoprazole Sodium 40 MG Tablet PO (10:33)
[2021-08-17] MEDS: buPROPion (XL) 300 MG TABLET.XL PO (10:34)
--- NOTE | 2021-08-17 12:49 | CHAPLAIN ---
Type of Pastoral Visit _x__ Initial Visit ___ Follow-up Visit ___ On-call Visit ___ General Patient Visit ___ Spiritual Assessment ___ Family Conference ___ Bereavement ___ Rapid Response ___ Code Blue ___ Other (describe below) Pastoral Care Referral From _x__ Patient ___ Family ___ Nurse ___ Physician ___ High School Teacher ___ Stripe Marker ___ Other (describe below) Sacrament/Intervention _x__ Active listening ___ Anointing ___ Christianity ___ Bereavement ___ Communion _x__ Dilia exploration ___ _x__ Life review x Prayer ___ Reconciliation ___ Sacrament of Sick ___ Supportive presence ___ Wedding ___ Other (describe below) Pastoral Comments patient says he is doing fine but then adds that he has lots of stress; when asked about his stress the pt then talks about father's illness and worries about his children; pt states that he has dilia in God and looks to that for support in this really crazy world
--- NOTE | 2021-08-17 12:59 | PCM.DC ---
Discharge Instructions Diet Discharge Diet: No restrictions Dressing / Incision Call your doctor if you observe: Shortness of breath Follow Up Care Please Follow Up With: Pulmonology When: 2-4 weeks Test Results: Test results from this visit will be discussed in further detail at your follow-up appointment, if applicable. Discharge Plan Admission Admit Date/Time: 08/15/21 14:08 Primary Reason for Your Visit: COPD exacerbation Attending Provider: Vega Jack Primary Care Provider: Antwan Buchanan Consulting Providers: Sharita Rich Instructions Patient Instructions: ED COPD Flare Discharge Orders/Prescriptions Prescriptions: New prednisone 20 mg tablet 40 mg PO DAILY 5 Days Qty: 10 RF: 0 Continued sertraline 100 MG tablet 100 mg PO DAILY RF: 0 trazodone 50 mg tablet 100 - 150 mg PO DAILY RF: 0 pantoprazole 40 mg tablet,delayed release (DR/EC) 40 mg PO BID RF: 0 fluticasone propion-salmeterol [Advair Diskus] 250-50 mcg/dose Blister With Device 1 inh INHALATION BID RF: 0 ipratropium-albuterol 0.5 mg-3 mg(2.5 mg base)/3 mL Solution For Nebulization 3 ml INHALATION Q4H PRN (Reason: breathing) RF: 0 aspirin 81 mg Tablet,Delayed Release (Dr/Ec) 81 mg PO DAILY RF: 0 nicotine 21 mg/24 hr Patch 24 Hour 1 patch TRANSDERMAL DAILY RF: 0 bupropion HCl [Wellbutrin XL] 300 mg Tablet Extended Release 24 Hr 300 mg PO DAILY RF: 0 Referrals / Follow Up: Antwan Buchanan DO [Primary Care Provider] - Within 2 Weeks Disposition Disposition (needs filled in before D/C Order can be placed): Home, Self Care
--- NOTE | 2021-08-17 13:02 | PCM.DC.SUM ---
Providers Date of Admission: 08/15/21 Primary Care Physician: Dr. Antwan Buchanan DO Reason For Visit: ACUTE COPD EXACERBATION Diagnosis Discharge Diagnosis (1) COPD exacerbation: Status: Chronic Code(s): J44.1 - Chronic obstructive pulmonary disease with (acute) exacerbation Medications at Discharge Home Medications sertraline 100 mg PO DAILY 11/19/14 pantoprazole 40 mg PO BID 03/20/21 trazodone 100 - 150 mg PO DAILY 03/20/21 aspirin 81 mg PO DAILY 08/15/21 bupropion HCl [Wellbutrin XL] 300 mg PO DAILY 08/15/21 fluticasone propion-salmeterol [Advair Diskus] 1 inh INHALATION BID 08/15/21 ipratropium-albuterol 3 ml INHALATION Q4H PRN 08/15/21 nicotine 1 patch TRANSDERMAL DAILY 08/15/21 prednisone 40 mg PO DAILY 5 Days #10 tab 08/17/21 Hospital Course Operations None Procedures None Summary of Care Provided Minutes Spent on Discharge: 28 Hospital Course: 50-year-old male presents with acute exacerbation of COPD. Patient's course was uncomplicated. Patient was treated bronchodilators as well as methylprednisolone. Today, the patient states that he feels better and dissection feeling better on 2 L of oxygen nasal cannula. At home, he is on 2.5 to 3 L of oxygen. Patient be discharged with a 5-day burst of 40 mg prednisone. Patient has healthcare consultant at [facility] and advised to follow-up with her in the next 2 to 4 weeks. Weight / BMI Weight Weight: 61.008 kg Body Mass Index (BMI) 19.3 ABG / Lab / Microbiology Data Result Diagrams: 08/17/21 05:50 08/17/21 05:50 Laboratory: Laboratory Results - last 24 hr 08/17/21 05:50: WBC 11.5 H, RBC 4.10 L, Hgb 11.6 L, Hct 37.1 L, MCV 90.5, MCH 28.3, MCHC 31.3 L, RDW Std Deviation 44.1 H, RDW Coeff of Maya 13.2, Plt Count 298, MPV 9.3, Immature Gran % (Auto) 0.800, Neut % (Auto) 89.4 H, Lymph % (Auto) 6.0 L, Carlisle % (Auto) 3.7, Eos % (Auto) 0.0, Baso % (Auto) 0.1, Absolute Neuts (auto) 10.3 H, Absolute Lymphs (auto) 0.69 L, Nucleated RBC % 0 08/17/21 05:50: Sodium 139, Potassium 3.8, Chloride 106, Carbon Dioxide 30.0, Anion Gap 3 L, BUN 16, Creatinine 0.90, Estim Creat Clear Calc 84.73, Est GFR (MDRD) Af Amer 115, Est GFR (MDRD) Non-Af 95, BUN/Creatinine Ratio 17.8, Glucose 134 H, Calcium 9.1 Microbiology: Microbiology 08/15/21 12:05 Nasal Secretion SARS-CoV-2 & FLU Antigen (Rapid) - Final D/C Instructions Discharge Diet: No restrictions Call your doctor if you observe: Shortness of breath Please Follow Up With: Pulmonology When: 2-4 weeks Meaningful Use Info Meaningful Use Diagnoses (Choose all that apply): None applicable Discharge Plan Admission Admit Date/Time: 08/15/21 14:08 Primary Reason for Your Visit: COPD exacerbation Attending Provider: Vega Jack Primary Care Provider: Antwan Buchanan Consulting Providers: Sharita Rich Instructions Patient Instructions: ED COPD Flare Discharge Orders/Prescriptions Prescriptions: New prednisone 20 mg tablet 40 mg PO DAILY 5 Days Qty: 10 RF: 0 Continued sertraline 100 MG tablet 100 mg PO DAILY RF: 0 trazodone 50 mg tablet 100 - 150 mg PO DAILY RF: 0 pantoprazole 40 mg tablet,delayed release (DR/EC) 40 mg PO BID RF: 0 fluticasone propion-salmeterol [Advair Diskus] 250-50 mcg/dose Blister With Device 1 inh INHALATION BID RF: 0 ipratropium-albuterol 0.5 mg-3 mg(2.5 mg base)/3 mL Solution For Nebulization 3 ml INHALATION Q4H PRN (Reason: breathing) RF: 0 aspirin 81 mg Tablet,Delayed Release (Dr/Ec) 81 mg PO DAILY RF: 0 nicotine 21 mg/24 hr Patch 24 Hour 1 patch TRANSDERMAL DAILY RF: 0 bupropion HCl [Wellbutrin XL] 300 mg Tablet Extended Release 24 Hr 300 mg PO DAILY RF: 0 Referrals / Follow Up: Antwan Buchanan DO [Primary Care Provider] - Within 2 Weeks Disposition Disposition (needs filled in before D/C Order can be placed): Home, Self Care Charges/Coding Visit Charges Inpatient E&M: 63672 Disch Hosp
--- NOTE | 2021-08-17 13:10 | CASEMGMT ---
RN CM MOTOR VEHICLE ASSEMBLER CM to room to meet with patient for initial transition planning/care coordination assessment. ADELIA HOFFMANN introduced self and role at [facility]. Pt voices understanding and consents to assessment at this time. Pt sitting up in bed. Pt is A/O at this time and answers all questions appropriately. Care providers, pharmacy, and demographics verified/updated at this time. At the end of RN CM assessment, pt had coughing spell and able to bring up thick sputum x 3. Pt feeling SOB after coughing. Offered for CPS to give breathing tx and pt accepted. Call placed to CPS and they were notified. Pt also states would like something to help w/thick secretions such as Mucinex. RN, Che, notified of coughing spell, SOB, and request for Mucinex or similar. PCP: Dr Buchanan Specialists: Dr Block @ [facility]--pulmonology Preferred Pharmacy: [facility] Insurance: [place] [employer] [employer] Prescription Benefit: Yes Living Will/HPOA: does not have LW or HCPOA . Interested in more information and would like to talk with SW to complete paperwork. Pt states, though, he thinks he will be discharged home today. ADELIA HOFFMANN informed him, if SW unable to meet w/him prior to discharge, AD can be completed as an OP. Given Social Service rac card with number to call if chooses in the future to utilize [facility] social work for advanced directive completion. Patient expresses understanding. MELIDA Barlow, made aware pt would like to complete AD, if available before pt discharges. LNOK: Son, Stalin Call. Father, Toño Call I Living Arrangements: Lives w/son, Stalin. Independent w/ADL's. Pt manages his medications mostly, but Stalin reminds him at times and Stalin takes him to most appts. Transportation: Pt states he still drives, but son, Stalin, drives most of the time d/t it's easier DME: has the following DME: O2 through [facility]. Pt states wears 2.5- 3l/m continuously. He has concentrator and portability. Son can bring in portable tank @ d/c. Pt also has nebulizer and pulse ox. Pt states no need for further DME at this time. HHC/SNF: No hx of either. Pt denies need for HHC or CCN. Pt wishes to return home and states has no concerns with going home at time of discharge. CM to follow for increase in home oxygen needs and any further discharge planning/needs. Pt voices no further concerns/needs at this time. Advised pt to ask for CM if any further questions/concerns/needs arise. Voices understanding. PLAN: Home w/family support and discharge plans in place. Corina GRESHAM RN CM
--- NOTE | 2021-08-17 13:42 | CASEMGMT ---
Palliative screening tool completed at this time. Patient meets criteria for palliative consult. ADELIA HOFFMANN updated hospitalist, order received. Referral sent to [facility] palliative at this time.
[2021-08-17] MEDS: NYSTATIN 500,000 UNIT/5 ML UDC 100000 UNIT PO (14:23)
[2021-08-17] MEDS: Acetaminophen 325 MG Tablet 650 MG PO (14:23)
--- NOTE | 2021-08-17 14:38 | CASEMGMT ---
Social Work Met with pt to complete HCPOA and LW. Pt named sonStalin, as primary and son Olvin as alternate. Original and copy provided to pt. Copy placed on chart. Carrol Lewis, QUALITY ASSURANCE ANALYST GROCERY CLERK SELLING
--- NOTE | 2021-08-17 14:47 | PHA.DC.MR ---
Pharmacy Service has performed discharge medication reconciliation for this patient. The patient's discharge medication list was reviewed for discrepancies and discrepancies were resolved. Home Medications sertraline 100 mg PO DAILY 11/19/14 pantoprazole 40 mg PO BID 03/20/21 trazodone 100 - 150 mg PO DAILY 03/20/21 aspirin 81 mg PO DAILY 08/15/21 bupropion HCl [Wellbutrin XL] 300 mg PO DAILY 08/15/21 fluticasone propion-salmeterol [Advair Diskus] 1 inh INHALATION BID 08/15/21 ipratropium-albuterol 3 ml INHALATION Q4H PRN 08/15/21 nicotine 1 patch TRANSDERMAL DAILY 08/15/21 prednisone 40 mg PO DAILY 5 Days #10 tab 08/17/21
== END 2021-08-17 16:10 | disposition home or self-care (01) | DRG 140 ==
LOC: ED 13:54 → MS3 08-16 17:36
PROVIDERS: Admitting Provider Student in an Organized Health Care Education/Training Program; Emergency Provider Emergency Medicine; PCP Student in an Organized Health Care Education/Training Program
DX: J44.1 Chronic obstructive pulmonary disease with (acute) exacerbation (principal); J96.10 Chronic respiratory failure, unspecified whether with hypoxia or hypercapnia; Z99.81 Dependence on supplemental oxygen; K21.9 Gastro-esophageal reflux disease without esophagitis; F32.A Depression, unspecified; Z20.822 Contact with and (suspected) exposure to COVID-19; Z79.82 Long term (current) use of aspirin; Z79.899 Other long term (current) drug therapy; Z86.73 Personal history of transient ischemic attack (TIA), and cerebral infarction without residual deficits; Z87.01 Personal history of pneumonia (recurrent); Z87.891 Personal history of nicotine dependence; Z82.5 Family history of asthma and other chronic lower respiratory diseases; Z79.51 Long term (current) use of inhaled steroids
CPT/HCPCS: 36415; 71045; 80048; 84484; 85025; 87428; 93005; 94640; 96361; 96365; 96366; 96372; 96375; 96376; 99218; 99251; 99285; J7030; J7040; A4216; G0378; G0463

== ENCOUNTER 2022-02-10 13:09 | Emergency (ER) | payer MEDICAID, SELFPAY ==
[2022-02-10 13:11] VITALS: BP 139/90; PULSE 105; RESP 26; TEMP 36.9; O2SAT 93; BMI 22.6
[2022-02-10 13:13] VITALS: BP 139/90; PULSE 105; RESP 26; TEMP 36.9; O2SAT 94
[2022-02-10 13:21] VITALS: O2SAT 2
[2022-02-10] MEDS: Ipratropium/Albuterol Sulfate 3 ML AMPUL.NEB INHALATION (14:10)
[2022-02-10] MEDS: Albuterol 2.5 MG/3 ML VIAL.NEB. INHALATION ×3 (14:10→15:52)
--- NOTE | 2022-02-10 14:10 | ED.VIS.DYS ---
HPI History of Present Illness Chief Complaint: Shortness of Breath Detail of Chief Complaint: Cough, shortness of breath and wheezing Informant: patient Onset/Context/Timing Onset: Days Context: gradual Timing: Continuous and Waxes and wanes Quality: Positive for Dyspnea on exertion and Wheezing; Negative for Orthopnea or PND Current Severity: Mild Maximum Severity: Severe Worsened by: Exertion and Coughing; Not Worsened By Lying flat Relieved by: Nothing Associated Symptoms cough, rhinorrhea and white sputum; Negative for post nasal drip, ear pain, fever, sore throat, subjective, chills, sweats, clear sputum or yellow sputum Chest Pain: Positive for None Narrative Narrative: Patient 51-year-old male with history of COPD, on oxygen via nasal cannula, spontaneous pneumothorax right, status post tracheostomy who presents with viral-like symptoms and shortness of breath. Patient states he quit smoking. He is normally on 2.5 L by nasal cannula. He denies fever, chills night sweats denies ear pain or drainage. Denies postnasal drainage. Is report mild nasal congestion. Cough is essentially nonproductive. When it is productive there is white sputum. There is no chest discomfort. He denies nausea, vomiting diarrhea. Denies abdominal pain. Denies urologic symptoms. He denies leg pain, swelling discoloration. He denies history of VTE. PE Risk Factors: Negative for Cancer, OCP + Smoking + > 35, Prior DVT or PE, Recent immobilization, Recent surgery or Recent travel Prior similar symptoms: Yes (COPD and pneumothorax) Recent Illness/Hospitalization: No PFSH PFS Medical History Alcohol abuse Anxiety COPD (chronic obstructive pulmonary disease) Depression Exposure to COVID-19 virus History of bacterial pneumonia History of tobacco use Smoker TIA (transient ischemic attack) Ulcer Home Medications sertraline 100 mg tablet 100 mg PO DAILY mood 11/19/14 [History Last Taken 03/19/21] pantoprazole 40 mg tablet,delayed release 40 mg PO BID stomache 03/20/21 [History Last Taken 03/19/21] trazodone 50 mg tablet 100 - 150 mg PO DAILY sleep 03/20/21 [History Last Taken 03/18/21] bupropion HCl 300 mg 24 hr tablet, extended release (Wellbutrin XL) 300 mg PO DAILY 08/15/21 [History Last Taken Unknown] fluticasone 250 mcg-salmeterol 50 mcg/dose blistr powdr for inhalation (Advair Diskus) 1 inh inhalation BID 08/15/21 [History Last Taken Unknown] ipratropium 0.5 mg-albuterol 3 mg (2.5 mg base)/3 mL nebulization soln 3 ml inhalation Q4H PRN breathing 08/15/21 [History Last Taken Unknown] albuterol sulfate 90 mcg/actuation aerosol inhaler (Ventolin HFA) 2 puff inhalation Q4H PRN PRN Wheezing ##1 02/10/22 [Rx Last Taken Unknown] doxycycline monohydrate 100 mg capsule 100 mg PO BID #14 CAPSULES 02/10/22 [Rx Last Taken Unknown] prednisone 20 mg tablet 60 mg PO DAILY #15 TABLETS 02/10/22 [Rx Last Taken Unknown] Allergy/AdvReac Type Severity Reaction Status Date / Time tramadol HCl [From [facility]] Allergy Swelling Verified 02/10/22 13:11 codeine AdvReac PT UNSURE Verified 02/10/22 13:11 OF REACTION Family History Other Cancer Surgical History History of chest tube placement History of herniorrhaphy History of tonsillectomy History of tracheostomy Social History (Updated 02/10/22 @ 14:[address] Patrick Silva MD) household members: none Smoking Status: Former smoker substance use type: does not use ROS ROS ED Constitutional Constitutional ED: Denies chills, fever(s), sweats or weight loss Eyes Eyes: Denies blurry vision, change in vision or diplopia ENT ENT ED: Denies ear pain, rhinorrhea or sore throat Cardiovascular Cardiovascular: Reports palpitations and racing heartbeat; Denies chest pain, orthopnea or paroxysmal nocturnal dyspnea Respiratory/Chest Respiratory/Chest: Reports cough, dyspnea, dyspnea on exertion and sputum; Denies orthopnea or paroxysmal nocturnal dyspnea Gastrointestinal Gastrointestinal: Denies abdominal pain, diarrhea, melena, nausea or vomiting Genitourinary Genitourinary ED: Denies dysuria, hematuria or urinary frequency Musculoskeletal Musculoskeletal: Denies arthralgias, back pain, myalgias or neck pain Integumentary Denies Abrasions or rash Neurologic Neurologic: Denies headache(s), paresthesias or weakness Psychiatric Psychiatric: Denies anxiety or depression Endocrine Endocrinology: Denies cold intolerance or heat intolerance Hematologic/Lymphatic Hematologic/Lymphatic: Denies easy bleeding or easy bruising EXAM Physical Exam Const Vital Signs: 02/10/22 13:11 02/10/22 13:13 02/10/22 13:21 Temperature 98.4 F 98.4 F Temperature Source Oral Oral Pulse Rate 105 H 105 H Respiratory Rate 26 H 26 H Respiratory Effort Normal Respiratory Depth Normal Respiratory Pattern Normal Blood Pressure 139/90 H 139/90 H Blood Pressure Mean 106 106 Pulse Ox 93 94 Oxygen Delivery Method Nasal Cannula Nasal Cannula Nasal Cannula Oxygen Flow Rate (L/min) 2.5 2.5 02/10/22 14:38 Temperature Temperature Source Pulse Rate 110 H Respiratory Rate 18 Respiratory Effort Respiratory Depth Respiratory Pattern Normal Blood Pressure Blood Pressure Mean Pulse Ox Oxygen Delivery Method Oxygen Flow Rate (L/min) Positive well nourished, well developed and cachectic Constitutional Narrative: Patient is tachypneic. There is no use of accessory muscles. He does have a scar noted for prior tracheostomy. He has multiple scars on the right side of his chest from spontaneous pneumothoraxes. General Appearance ED: well developed and cachectic; Negative for NAD Nutritional Appearance: cachectic HEENT Reports moist mucous membranes HEENT Narrative: Head is atraumatic normocephalic. Ears normal. TMs normal. Nares patent. Posterior pharynx out erythema or exudate. Uvula is midline. Eyes PERRL and EOMs intact bilaterally General Eye ED: Negative for pale conjunctiva or scleral icterus Neck no lymphadenopathy, supple, no meningeal signs and no JVD Resp normal respiratory effort and clear to auscultation bilaterally Auscultation: wheezes expiratory wheezes (Increased x-ray face. High pitched wheezing noted on forced expiration only) Cardio regular rhythm and S1 normal heart sound Rate: tachycardic GI non-tender, non-distended and no masses Auscultation: normoactive bowel sounds Palpation: soft Back/Spine no CVA tenderness and normal to inspection Extremity normal to inspection Extremity Narrative: There is no asymmetry, swelling, discoloration, leg vein distention, palpable cords or tenderness along the distribution of the deep venous system. General Extremety ED: Negative for edema or tenderness General Extremity: Negative for edema Neuro oriented x3, CN's II-XII intact bilaterally and no sensory deficits noted Kennedy Coma Scale: document GCS findings Spontaneous Obeys Commands Oriented 15 Sensorium / Orientation: alert Speech: speech normal Sensory Exam: sensory level loss detected Psych mental status grossly normal Skin no wounds and skin turgor normal Skin Narrative: Well-healed scars MDM MDM MDM Narrative Medical decision making narrative: Patient was treated with DuoNeb followed by 2 albuterol. Prednisone was ordered. This was canceled since nurse informing that squad gave Solu-Medrol in route. Chest x-ray was obtained to evaluate for pneumonia and rule out pneumothorax since he has had several. He is not hypoxic on his oxygen. He is noted to be tachycardic. Lab Data Lab results narrative: Influenza test is negative. Radiography Chest X-Ray - ED: 2 View and Read by ED Physician (Independently interpreted and by me at 1430. There is chronic changes with evidence of hyperaeration and flattened diaphragms. There is no acute process. Cardiac silhouette and size normal. Perihilar region normal. Osseous structures are normal.) Diagnostic Testing: Clinical Impression(s) from Imaging Studies Chest X-Ray 02/10/22 14:20 IMPRESSION: Emphysema without pneumonia or atelectasis. Electronically Signed: Deshawn Mcintosh MD at 14:44 EST , Rhythm Strip Rhythm Strip: Sinus Tach Rate: 106 Ectopy: None Treatment and Re-Evaluation Narrative: Patient was reevaluated. He reports improvement and is moving much more air. There is still slight wheezing. Plan is prednisone, albuterol inhaler and Advair since his prescriptions no longer have refills. If influenza screen is positive no antibiotics if negative will treat with doxycycline. Discharge Plan Triage Chief Complaint: Shortness of Breath Other Complaint: General Illness ED Provider: Patrick Silva Dx/Rx/DC Orders Clinical Impression: Acute exacerbation of chronic obstructive pulmonary disease, Acute bronchospasm, Sinus tachycardia, Tachypnea Instructions: ED COPD Flare Prescriptions: New prednisone 20 mg tablet 60 mg PO DAILY Qty: 15 0RF albuterol sulfate [Ventolin HFA] 90 mcg/actuation HFA aerosol inhaler 2 puff inhalation Q4H PRN PRN (Reason: Wheezing) Qty: 1 0RF doxycycline monohydrate 100 mg capsule 100 mg PO BID Qty: 14 0RF No Action sertraline 100 MG tablet 100 mg PO DAILY Label Comments: MENTAL HEALTH trazodone 50 mg tablet 100 - 150 mg PO DAILY Label Comments: take 1 to 3 tablets by mouth at bedtime pantoprazole 40 mg tablet,delayed release (DR/EC) 40 mg PO BID Label Comments: take 1 tablet by mouth twice a day fluticasone propion-salmeterol [Advair Diskus] 250-50 mcg/dose Blister With Device 1 inh INHALATION BID ipratropium-albuterol 0.5 mg-3 mg(2.5 mg base)/3 mL Solution For Nebulization 3 ml INHALATION Q4H PRN (Reason: breathing) bupropion HCl [Wellbutrin XL] 300 mg Tablet Extended Release 24 Hr 300 mg PO DAILY Primary Care Provider: Antwan Buchanan Referrals: Antwan Buchanan DO [Primary Care Provider] - Disposition Disposition: Home, Self Care
--- NOTE | 2022-02-10 14:20 | RAD_ITS ---
STUDY: X-RAY CHEST REASON FOR EXAM: Male, 51 years old. Cough, shortness of breath TECHNIQUE: Single AP portable view of the chest. COMPARISON: 08/15/2021 FINDINGS: There is hyperinflation of the lungs consistent with chronic obstructive lung disease (COPD). There is no demonstrated pleural abnormality. Normal size heart. Normal mediastinum and catherine. Normal visualized pulmonary arteries. Normal visualized aortic arch and descending thoracic aorta. Normal visualized thoracic spine. Normal visualized ribs, clavicles, and shoulders. There is no demonstrated abnormality of the visualized soft tissue structures of the upper abdomen. RAD/Chest 1 View (Portable) IMPRESSION: Emphysema without pneumonia or atelectasis. Electronically Signed: Deshawn Mcintosh MD at 14:44 EST ,
[2022-02-10 14:38] VITALS: PULSE 110; RESP 18
[2022-02-10 15:55] VITALS: PULSE 78; RESP 18
[2022-02-10 16:02] VITALS: BP 121/92; PULSE 93; RESP 16; O2SAT 94
== END 2022-02-10 16:07 | disposition home or self-care (01) ==
PROVIDERS: Emergency Provider Emergency Medicine; PCP Student in an Organized Health Care Education/Training Program; Visit Provider Emergency Medicine
DX: J44.1 Chronic obstructive pulmonary disease with (acute) exacerbation (principal); J98.01 Acute bronchospasm; R00.0 Tachycardia, unspecified; R06.82 Tachypnea, not elsewhere classified; F32.A Depression, unspecified; F41.9 Anxiety disorder, unspecified; Z86.73 Personal history of transient ischemic attack (TIA), and cerebral infarction without residual deficits; Z79.899 Other long term (current) drug therapy; Z87.891 Personal history of nicotine dependence
CPT/HCPCS: 71045; 87804; 94640; 99285

== ENCOUNTER 2022-10-19 16:25 | Emergency (ER) | payer MEDICAID, SELFPAY ==
[2022-10-19] VITALS (21 sets, daily range): BP systolic 132–182; BP diastolic 87–103; PULSE 88–105; RESP 16–22; TEMP 36.2; O2SAT 93–97; BMI 24.2
--- NOTE | 2022-10-19 17:17 | EDS_ITS ---
HPI History of Present Illness Chief Complaint: Shortness of Breath Informant: patient Onset/Context/Timing Onset: Days Context: gradual Timing: Continuous Quality: Positive for Dyspnea on exertion and Wheezing Current Severity: Mild Maximum Severity: Mild Worsened by: Exertion, Lying flat and Coughing Relieved by: Oxygen Associated Symptoms cough; Negative for fever, sore throat, chills or sweats Chest Pain: Positive for Continuous and Dull Narrative Narrative: 51-year-old male history of COPD on 4 L of oxygen at home. Prior TIA, alcohol abuse. States he being worked up he placed on the lung transplant list which he is not on yet. Has been short of breath the last 2 to 3 days. Dull chest discomfort which been constant for those days. No history of cardiac disease or CO. No prior DVT or PE. No leg pain or swelling. No recent travel or surgery. No hemoptysis. No fever. Cough with clear sputum. PE Risk Factors: Negative for Cancer, OCP + Smoking + > 35, Prior DVT or PE, Recent immobilization, Recent surgery or Recent travel Prior similar symptoms: Yes Recent Illness/Hospitalization: No PFSH [facility] Medical History Alcohol abuse Anxiety COPD (chronic obstructive pulmonary disease) Depression Exposure to COVID-19 virus History of bacterial pneumonia History of tobacco use Smoker TIA (transient ischemic attack) Ulcer Home Medications sertraline 100 mg tablet 100 mg PO DAILY mood 11/19/14 [History Last Taken 10/19/22 10:00] pantoprazole 40 mg tablet,delayed release 40 mg PO BID stomache 03/20/21 [History Last Taken 10/19/22 10:00] trazodone 50 mg tablet 100 - 150 mg PO PRN sleep 03/20/21 [History Last Taken 03/18/21] ipratropium 0.5 mg-albuterol 3 mg (2.5 mg base)/3 mL nebulization soln 3 ml inhalation Q4H PRN breathing 08/15/21 [History Last Taken 10/19/22 10:00] albuterol sulfate 90 mcg/actuation aerosol inhaler (Ventolin HFA) 2 puff inhalation Q4H PRN PRN Wheezing ##1 02/10/22 [Rx Last Taken 10/19/22 10:00] prednisone 20 mg tablet 40 mg (2 x 20 mg) PO DAILY 5 days #10 tabs 10/19/22 [Rx Last Taken Unknown] Allergy/AdvReac Type Severity Reaction Status Date / Time tramadol HCl [From [facility]] Allergy Swelling Verified 10/19/22 16:26 codeine AdvReac PT UNSURE Verified 10/19/22 16:26 OF REACTION Family History Other Cancer Surgical History History of chest tube placement History of herniorrhaphy History of tonsillectomy History of tracheostomy Social History household members: none Smoking Status: Former smoker substance use type: does not use ROS ROS ED ROS Narrative Shortness of breath. Cough. Review of Systems ROS Unobtainable: Denies due to encephalopathy Constitutional Constitutional ED: Denies chills or fever(s) Eyes Eyes: Denies blurry vision ENT ENT ED: Denies ear pain Cardiovascular Cardiovascular: Reports chest pain; Denies palpitations Respiratory/Chest Respiratory/Chest: Reports dyspnea and dyspnea on exertion Gastrointestinal Gastrointestinal: Denies abdominal pain Genitourinary Genitourinary ED: Denies dysuria or hematuria Musculoskeletal Musculoskeletal: Denies arthralgias Integumentary Denies abscess Neurologic Neurologic: Denies headache(s) Psychiatric Psychiatric: Denies anxiety Endocrine Endocrinology: Denies cold intolerance Hematologic/Lymphatic Hematologic/Lymphatic: Denies easy bleeding Allergic/Immunologic Allergic/Immunologic ED: Denies mouth swelling EXAM Physical Exam Narrative Exam Narrative: 51-year-old male vital signs are stable afebrile. Pulse ox 96% on 4 L which is his home oxygen. He does not look septic or toxic. No distress. H EENT exam unremarkable. Poor dentition. Neck nontender no JVD. No lymphadenopathy. Lungs coarse breath sounds bilaterally. Prolonged expiratory phase. No rales or rhonchi. Heart tachycardic rate of 105 no murmur. Chest were nontender. Abdomen soft nontender. Moving all 4 extremities. Calves are nontender without edema or cords. He is awake and alert. Const Vital Signs: 10/19/22 16:27 10/19/22 16:30 10/19/22 16:59 Temperature 97.2 F L Temperature Source Temporal Pulse Rate 105 H Respiratory Rate 20 H 21 H Respiratory Effort Short of Breath Respiratory Depth Normal Respiratory Pattern Tachypnea Blood Pressure 136/103 H Blood Pressure Mean 114 Pulse Ox 96 95 Oxygen Delivery Method Nasal Cannula Nasal Cannula Nasal Cannula Oxygen Flow Rate (L/min) 4 4 3 10/19/22 17:22 10/19/22 17:30 10/19/22 18:26 Temperature Temperature Source Pulse Rate 99 94 Respiratory Rate 18 21 H Respiratory Effort Respiratory Depth Respiratory Pattern Blood Pressure 132/97 H Blood Pressure Mean 108 Pulse Ox 94 96 Oxygen Delivery Method Nasal Cannula Nasal Cannula Oxygen Flow Rate (L/min) 3 3 Positive well nourished and well developed; Negative for obese, cachectic, contractures or unkempt General Appearance ED: well developed and NAD; Negative for unkempt, cachectic, contractures or pallor Nutritional Appearance: Negative for cachectic or obese HEENT Reports moist mucous membranes; Denies TM's clear or dry mucous membranes atraumatic; Negative for trauma or tenderness Tympanic Membrane ED: Negative for TM's clear Mouth ED: No dry mucous membranes Mouth: No dry mucous membranes Eyes PERRL and EOMs intact bilaterally General Eye ED: Negative for pale conjunctiva or scleral icterus Neck no lymphadenopathy, supple, no meningeal signs and no JVD General: Negative for tenderness Lymph Lymphatic: Negative for other Chest Wall Chest: Negative for other Resp No normal respiratory effort and No clear to auscultation bilaterally Resp Narrative: Coarse breath sounds bilaterally. Effort and Inspection: Negative for pain with movement Auscultation: Negative for rales, rhonchi, wheezes or diminished lung sounds Cardio regular rhythm, S1 normal heart sound, S2 normal heart sound and no murmurs; Negative for regular rate Rate: tachycardic; Negative for bradycardia Rhythm: Negative for abnormal rhythm GI non-tender, non-distended and no masses Inspection: Negative for other Auscultation: normoactive bowel sounds Palpation: soft; Negative for tender, guarding, mass or rebound tenderness present Bladder / Kidney Exam: No other Back/Spine no CVA tenderness and normal to inspection General Back: Negative for CVA tenderness or tenderness Extremity normal to inspection General Extremety ED: Negative for edema or tenderness General Extremity: Negative for edema Neuro oriented x3 and CN's II-XII intact bilaterally Sensorium / Orientation: alert, oriented to person, oriented to place and oriented to time; Negative for orientation impaired, confused, lethargic or stuporous Speech: speech normal Gait (Neuro): Negative for normal gait Motor Exam: strength 5/5 throughout Psych mental status grossly normal Appearance: Negative for unkempt Attitude: No agitated Mood & Affect: Negative for depressed, anxious or tearful Thought Process: normal thought process Skin no wounds and skin turgor normal General Skin Exam: Negative for jaundice or pallor Lesions: no lesions Rashes: no rashes Trauma: Negative for abrasion or laceration MDM MDM MDM Narrative Medical decision making narrative: 51-year-old male appears to have underlying COPD exacerbation. Will be treated with both DuoNeb and albuterol aerosols IV Solu-Medrol. Cardiac work-up will be pursued. I do not think this is a PE has no risk factors or history. Clinically I do not think he has pneumonia. Repeat exam patient is improved after aerosol treatments and IV Solu-Medrol. We discussed all his test results. He will follow-up with primary care physician and have his blood levels rechecked he is more anemic than his baseline. He has not noticed any rectal bleeding or black stool. He will be placed on prednisone 40 mg a day for 5 days. Continue his home oxygen of 4 L. Continue his home aerosols and follow-up. Return if he is feeling worse. History & Record Review Discussion w/independent historian: Patient Lab Data Attestation: I reviewed the patient's lab results. Lab results narrative: CBC shows a white count 10.5. H&H 9.0 and 31.3. Platelets 502. 2 months ago his hemoglobin was 11.6. This is lower than his baseline today. Electrolytes show potassium 3.4. Gap of 5. BUN and creatinine are 19 and 1. Glucose 115. Troponin normal at 4. Chest x-ray chronic changes. No pneumothorax. No pneumonia. Normal cardiac silhouette mediastinum. Labs: Laboratory Results - last 24 hr 10/19/22 16:35 WBC 10.5 RBC 4.43 L Hgb 9.0 L Hct 31.3 L MCV 70.7 L MCH 20.3 L MCHC 28.8 L RDW Std Deviation 45.6 H RDW Coeff of Maya 18.4 H Plt Count 502 H MPV 9.6 Immature Gran % (Auto) 1.000 H Neut % (Auto) 71.2 H Lymph % (Auto) 17.0 L Mcleod % (Auto) 9.6 Eos % (Auto) 0.9 Baso % (Auto) 0.3 Absolute Neuts (auto) 7.5 Absolute Lymphs (auto) 1.79 Nucleated RBC % 0 Sodium 138 Potassium 3.4 L Chloride 105 Carbon Dioxide 28.0 Anion Gap 5 BUN 19 H Creatinine 1.09 Estim Creat Clear Calc 82.79 Est GFR (MDRD) Af Amer 91 Est GFR (MDRD) Non-Af 76 BUN/Creatinine Ratio 17.4 Glucose 115 H Calcium 9.1 Troponin I High Sens 4 Radiography Chest X-Ray - ED: 1 View, Read by ED Physician, Read by Radiologist, Heart, Lungs, Mediastinum, Bony Structures, No Acute Disease and Chronic Changes Diagnostic Testing: Clinical Impression(s) from Imaging Studies Chest X-Ray 10/19/22 17:18 IMPRESSION: Hyperinflation and postsurgical changes. No acute cardiopulmonary pathology. Electronically Signed: Jordin Eid MD at 17:45 EDT , Chest x-ray, portable, single view interpreted by myself and the radiologist shows no acute abnormality. No pneumothorax. No pneumonia. Normal cardiac silhouette. Rhythm Strip Rhythm Strip: Sinus Tach Rate: 105 Ectopy: None EKG Initial EKG: Attestation: I personally reviewed and interpreted this EKG as follows: Interpretation: Sinus Rhythm, No Acute Injury Pattern and Sinus Tachycardia Comments: Sinus tachycardia rate of 105 no acute signs of CO or ischemia. Discharge Plan Triage Chief Complaint: Shortness of Breath ED Provider: Byron Vivas Dx/Rx/DC Orders Clinical Impression: Acute dyspnea, Anemia, Asthma exacerbation in COPD Instructions: Anemia, ED COPD Flare Prescriptions: New prednisone 20 mg tablet 40 mg PO DAILY 5 Days Qty: 10 0RF No Action sertraline 100 MG tablet 100 mg PO DAILY Patient Comments: MENTAL HEALTH trazodone 50 mg tablet 100 - 150 mg PO PRN Patient Comments: take 1 to 3 tablets by mouth at bedtime pantoprazole 40 mg tablet,delayed release (DR/EC) 40 mg PO BID Patient Comments: take 1 tablet by mouth twice a day ipratropium-albuterol 0.5 mg-3 mg(2.5 mg base)/3 mL Solution For Nebulization 3 ml INHALATION Q4H PRN (Reason: breathing) albuterol sulfate [Ventolin HFA] 90 mcg/actuation HFA aerosol inhaler 2 puff inhalation Q4H PRN PRN (Reason: Wheezing) Qty: 1 0RF Primary Care Provider: Antwan Buchanan Referrals: Antwan Buchanan, [Primary Care Provider] - 3-5 Days Activity Restrictions/Additional Instructions: Prednisone 40 mg a day for the next 5 days starting tomorrow. You were given a dose today through the IV. Use your aerosols at home. Follow-up with your primary care physician to ensure you are improving. Also your hemoglobin today was 9.0. That is consistent with a low blood count or anemia. That has to be rechecked. Return if you are feeling worse. Disposition Disposition: Home, Self Care
--- NOTE | 2022-10-19 17:18 | RAD_ITS ---
STUDY: X-RAY CHEST REASON FOR EXAM: Male, 51 years old. chest pain TECHNIQUE: AP portable COMPARISON: February 10, 2022 FINDINGS: Lungs are hyperinflated. There is minor interstitial thickening at the lung bases. Improved there are surgical clips projecting over the right upper lobe likely due to prior resection.. There is no demonstrated pleural abnormality. Normal size heart. Normal mediastinum and catherine. Normal visualized pulmonary arteries. Normal visualized aortic arch and descending thoracic aorta. Normal visualized thoracic spine. Normal visualized clavicles, and shoulders. Old healed left rib fracture There is no demonstrated abnormality of the visualized soft tissue structures of the upper abdomen. RAD/Chest 1 View (Portable) IMPRESSION: Hyperinflation and postsurgical changes. No acute cardiopulmonary pathology. Electronically Signed: Jordin Eid MD at 17:45 EDT ,
[2022-10-19] MEDS: Ipratropium/Albuterol Sulfate 3 ML AMPUL.NEB INHALATION (17:27)
[2022-10-19] MEDS: Albuterol 2.5 MG/3 ML VIAL.NEB. INHALATION ×2 (17:29)
[2022-10-19 17:30] LABS: Absolute Lymphocyte Count 1.79 X10^3/uL (0.83-4.51); Absolute Neutrophil Count 7.5 X10^3/uL (2.0-7.7); Basophil# 0.03 X10^3/uL; Basophil% 0.3 % (0-1); Eosinophil# 0.09 X10^3/uL; Eosinophils% 0.9 % (0-5); Hematocrit 31.3 % (40-54); Lymphocyte # 1.79 X10^3/ul (0.83-4.51); Mean Corp Hgb Conc 28.8 g/dL (32-36); Mean Corpuscular Hgb 20.3 pg (27.0-32.0); Mean Corpuscular Volume 70.7 fL (80-94); Mean Platelet Vol. 9.6 fl (6.2-12.0); Monocyte# 1.01 X10^3/uL; Monocyte% 9.6 % (0-10); NRBC Flagged by Analyzer 0 % (0-5); Neutrophil # 7.48 X10^3/uL (2.7-7.7); Neutrophil % 71.2 % (47-70); Platelet Count 502 K/mm3 (150-450); RBC Distribution Width CV 18.4 % (11.6-14.6); RBC Distribution Width SD 45.6 fl (35.1-43.9); Red Blood Count 4.43 M/mm3 (4.6-6.2); White Blood Count 10.5 K/mm3 (4.4-11.0)
[2022-10-19] MEDS: MethylPREDNISolone 125 MG/2 ML Vial IV (17:31)
[2022-10-19 17:48] LABS: Anion Gap 5 (5-15); BUN 19 mg/dL (7-18); BUN/Creat Ratio 17.4 RATIO (10-20); Calcium,Total 9.1 mg/dL (8.5-10.1); Chloride 105 mmol/L (98-107); Creatinine, Serum 1.09 mg/dL (0.70-1.30); EST Glomerular Filtration Rate 76 mL/min (>60); Est Glom Filt Rate - Afr Amer 91 mL/min (>60); Estimated Creatinine Clearance 82.79 ml/min; Glucose 115 mg/dL (74-106); Potassium 3.4 mmol/L (3.5-5.1); Sodium Level 138 mmol/L (136-145); Troponin-I HS 4 pg/mL (3.0-78.0)
== END 2022-10-19 20:23 | disposition home or self-care (01) ==
PROVIDERS: Emergency Provider Emergency Medicine; PCP Student in an Organized Health Care Education/Training Program; Visit Provider Emergency Medicine
DX: J44.1 Chronic obstructive pulmonary disease with (acute) exacerbation (principal); Z87.891 Personal history of nicotine dependence; D64.9 Anemia, unspecified; Z99.81 Dependence on supplemental oxygen; Z86.73 Personal history of transient ischemic attack (TIA), and cerebral infarction without residual deficits; Z79.899 Other long term (current) drug therapy; F32.A Depression, unspecified; F41.9 Anxiety disorder, unspecified
CPT/HCPCS: 71045; 80048; 84484; 85025; 93005; 94640; 99285; A4216

== ENCOUNTER 2022-11-12 14:39 | Observation (INO) | payer MEDICAID, SELFPAY ==
[2022-11-12] VITALS (13 sets, daily range): BP systolic 123–148; BP diastolic 76–96; PULSE 88–111; RESP 16–26; TEMP 36.2–37.2; O2SAT 94–99; BMI 24.5; BMI 24.6
--- NOTE | 2022-11-12 15:11 | EX.ED.DYSGE1 ---
HPI History of Present Illness Chief Complaint: Shortness of Breath Informant: patient Narrative Narrative: Patient presents with multiple concerns. Patient states he has a history of diverticulitis. For the last 2 to 3 days he has had a little bit of red blood in his stool. His stool has not been black. He has not been moving his bowels more. He sometimes gets cramping across his lower abdomen. But he sometimes gets this anyway. He thinks he is having diverticulitis because of the stress of his life. His last colonoscopy was 5 or 6 years ago. He has no history of intra-abdominal surgeries ever. He is still eating and drinking well. No urinary symptoms. Patient also complains of dyspnea. He has advanced COPD and is actually being evaluated for possible double lung transplant. He is on 4 L of oxygen at baseline. He has not increased this. But the last about 3 days he has had some slight increased difficulty breathing. He attributes this to the stress of having his diverticulitis. He is coughing but no change in sputum. No hemoptysis. The reason he came in today is he was on his way to see his doctor for an x-ray for his abdomen and he had to walk further than usual which caused more dyspnea which prompted his friend called EMS. He feels back to about baseline now. Of note, EMS gave both DuoNeb and IV Solu-Medrol already so IV Solu-Medrol was not repeated here. Patient also has some left-sided chest pain. This is mostly with coughing. He states this is typical for him with his COPD exacerbation though. Patient also has lower back pain that was mention. But this is chronic and completely unchanged from his baseline. There are no new features numbness tingling or weakness or radiculopathy. Patient states he is no longer smoking. He also rarely drinks and thinks his last drink was probably 7 months ago. [facility] Medical History Alcohol abuse Anxiety COPD (chronic obstructive pulmonary disease) Depression Exposure to COVID-19 virus History of bacterial pneumonia History of tobacco use Smoker TIA (transient ischemic attack) Ulcer Home Medications sertraline 100 mg tablet 100 mg PO DAILY mood 11/19/14 [History Last Taken 10/19/22 10:00] pantoprazole 40 mg tablet,delayed release 40 mg PO BID stomache 03/20/21 [History Last Taken 10/19/22 10:00] trazodone 50 mg tablet 100 - 150 mg PO PRN sleep 03/20/21 [History Last Taken 03/18/21] ipratropium 0.5 mg-albuterol 3 mg (2.5 mg base)/3 mL nebulization soln 3 ml inhalation Q4H PRN breathing 08/15/21 [History Last Taken 10/19/22 10:00] albuterol sulfate 90 mcg/actuation aerosol inhaler (Ventolin HFA) 2 puff inhalation Q4H PRN PRN Wheezing ##1 02/10/22 [Rx Last Taken 10/19/22 10:00] Allergy/AdvReac Type Severity Reaction Status Date / Time tramadol HCl [From [facility]] Allergy Swelling Verified 11/12/22 14:41 codeine AdvReac PT UNSURE Verified 11/12/22 14:41 OF REACTION Family History Other Cancer Surgical History History of chest tube placement History of herniorrhaphy History of tonsillectomy History of tracheostomy Social History household members: none Smoking Status: Current some day smoker tobacco type: cigarettes and smokeless tobacco substance use type: does not use ROS ROS ED ROS Narrative A complete review of systems was performed and is negative except as documented in the history of present illness. Some specific details below. Constitutional: No recent fevers or chills. No malaise. EYE: No discharge, visual complaints, or pain. ENT: No difficulty swallowing. No swelling. No pain. No reflux symptoms. CV: See history of present illness. His left chest pain is typical for his COPD. It is not pleuritic. Respiratory: See history of present illness. GI: See history of present illness. Patient is concerned with some red blood in his stool because his last blood counts evidently showed anemia that he is about to have worked up. : No frequency dysuria or hematuria. Musculoskeletal: No recent trauma. No new pains. No swelling. See also history of present illness Skin: No rash. Nondiaphoretic. Neuro: No weakness or numbness. Endocrine: No polyuria or polydipsia. EXAM Physical Exam Narrative Exam Narrative: CONSTITUTIONAL: Patient is nontoxic in appearance. The patient looks comfortable. Work of breathing looks normal. Despite this patient's multiple concerns complaints and significant medical illness, he is awake alert appropriate carries on a normal conversation and is very nontoxic as I walk into the room. HEENT: No notable trauma. Mucous membranes moist. No sinus tenderness. No indication of pain with swallowing. EYES: No conjunctival injection. No proptosis. Mild pallor noted NECK:No JVD. No stridor. CARDIOVASCULAR: Tachycardic rate. Regular rhythm. No notable murmur. No JVD. RESPIRATORY: No respiratory distress. Breathing is unlabored. Saturations are normal at 99% on patient's 4 L showing no hypoxia. With easy breathing, I am not getting wheezes. But when I have him take a deep breath he does have expiratory wheezing. No pain with a deep breath and no pain with palpation of his chest GASTROINTESTINAL: Not distended. Bowel sounds are normal. No tenderness. No guarding. No rebound. No palpable mass. No bruit is heard. Although he gets cramping below his abdomen, he has no tenderness there. GENITOURINARY: No tenderness over the bladder. No CVA tenderness. MUSCULOSKELETAL: Atraumatic. No peripheral edema. No cord. No tenderness along the deep venous system. No asymmetry. No distended veins. NEUROLOGICAL: Patient is alert and appropriate. No focal deficit noted. SKIN: No noted rashes. No diaphoresis. Mild pallor PSYCHIATRIC: Patient is calm. Mood is appropriate. Const Vital Signs: 11/12/22 14:41 11/12/22 15:02 11/12/22 15:04 Temperature 99 F Temperature Source Temporal Pulse Rate 109 H 111 H Respiratory Rate 26 H 18 Respiratory Effort Short of Breath Labored Respiratory Depth Normal Respiratory Pattern Tachypnea Blood Pressure 123/87 H 133/82 H Blood Pressure Mean 99 99 Pulse Ox 99 97 Oxygen Delivery Method Nasal Cannula Nasal Cannula Nasal Cannula Oxygen Flow Rate (L/min) 4 4 4 11/12/22 15:18 11/12/22 16:11 11/12/22 17:24 Temperature 97.8 F Temperature Source Temporal Pulse Rate 100 99 99 Respiratory Rate 18 19 H 18 Respiratory Effort Respiratory Depth Respiratory Pattern Normal Blood Pressure 140/85 H 134/88 H Blood Pressure Mean 103 103 Pulse Ox 98 97 Oxygen Delivery Method Nasal Cannula Nasal Cannula Oxygen Flow Rate (L/min) 4 11/12/22 17:24 Temperature Temperature Source Pulse Rate 99 Respiratory Rate Respiratory Effort Respiratory Depth Respiratory Pattern Blood Pressure 134/88 H Blood Pressure Mean 103 Pulse Ox Oxygen Delivery Method Oxygen Flow Rate (L/min) MDM MDM MDM Narrative Medical decision making narrative: Patient CBC shows normal white count. Platelets are slightly high. His hemoglobin is even lower than last time. Patient had a hemoglobin in the upper nines about 3 or so weeks ago. He has had a 4 g drop since then he had had 2 or 3 g drop since last year. He has low MCV MCH and MCHC indicating that some of this does have chronic nature although there is an acute component recently. He is not having bloody stools here. I have put in for a type and cross for transfusion because with his significant dyspnea and worsening hemoglobin he will do better with a higher hemoglobin. Patient's electrolytes show no marked abnormalities. Minimal elevation of glucose at 113. His last steroid use was about 2 or 3 weeks ago. Liver function test are normal. My independent interpretation of this patient's CT scan of his chest and abdomen shows no sign of hemorrhage. I do not see PE or pneumonia or pneumothorax. I do not see signs of diverticulitis although there certainly is diverticulosis. Final reading shows similar findings. Patient has had no gross GI bleeding here. We are trying to get a Hemoccult device from central lab as I do not have any available. With his dyspnea, anemia and chronic illness I think he does need to come in the hospital. Although he had some wheezing its only with forced expiration. He may have a mild COPD exacerbation. But a lot of his dyspnea was when he exerted himself to go to an appointment. I think a lot of this may also be related to his significant anemia. He will be brought in the hospital. I discussed case with the hospitalist. He discussed the case directly with gastroenterology who is available. Lab Data Attestation: I reviewed the patient's lab results. Labs: Laboratory Results - last 24 hr 11/12/22 11/12/22 15:25 17:10 WBC 10.8 RBC 3.00 L Hgb 5.8 L* Hct 21.7 L MCV 72.3 L MCH 19.3 L MCHC 26.7 L RDW Std Deviation 45.9 H RDW Coeff of Maya 17.4 H Plt Count 507 H MPV 9.4 Immature Gran % (Auto) 0.600 Neut % (Auto) 76.4 H Lymph % (Auto) 16.4 L Sierra % (Auto) 5.5 Eos % (Auto) 0.8 Baso % (Auto) 0.3 Absolute Neuts (auto) 8.3 H Absolute Lymphs (auto) 1.77 Nucleated RBC % 0.3 Diff Path Review May foll Sodium 139 Potassium 3.9 Chloride 105 Carbon Dioxide 28.0 Anion Gap 6 BUN 20 H Creatinine 1.10 Est GFR (MDRD) Af Amer 90 Est GFR (MDRD) Non-Af 75 BUN/Creatinine Ratio 18.2 Glucose 113 H Calcium 8.7 Total Bilirubin 0.20 AST 8 L ALT 23 Alkaline Phosphatase 78 Troponin I High Sens 4 Total Protein 7.2 Albumin 3.6 Globulin 3.6 Albumin/Globulin Ratio 1.0 Crossmatch See Detail Radiography Diagnostic Testing: Clinical Impression(s) from Imaging Studies Chest/Abdomen/Pelvis CTA 11/12/22 15:35 IMPRESSION: 1. Severe emphysematous changes and bronchiectasis. 2. No CT evidence for aortic dissection. 3. Colonic diverticulosis without diverticulitis. 4. Hepatic steatosis. Electronically Signed: No Qiu MD at 16:35 EDT Reading Location ID and State: [facility] / [place] , Service support , EKG Initial EKG: Comments: My independent interpretation the patient's EKG done for tachycardia dyspnea and chest pain shows sinus rhythm with tachycardic rate at 116. Mild irregular baseline but no acute ST elevation or depression. LA interval, QRS duration and QTc are normal. EKG is consistent overall with sinus tachycardia Discharge Plan Triage Chief Complaint: Shortness of Breath ED Provider: Kody Jj Dx/Rx/DC Orders Clinical Impression: Acute anemia, COPD exacerbation, Acute GI bleeding Prescriptions: No Action sertraline 100 MG tablet 100 mg PO DAILY Patient Comments: MENTAL HEALTH trazodone 50 mg tablet 100 - 150 mg PO PRN Patient Comments: take 1 to 3 tablets by mouth at bedtime pantoprazole 40 mg tablet,delayed release (DR/EC) 40 mg PO BID Patient Comments: take 1 tablet by mouth twice a day ipratropium-albuterol 0.5 mg-3 mg(2.5 mg base)/3 mL Solution For Nebulization 3 ml INHALATION Q4H PRN (Reason: breathing) albuterol sulfate [Ventolin HFA] 90 mcg/actuation HFA aerosol inhaler 2 puff inhalation Q4H PRN PRN (Reason: Wheezing) Qty: 1 0RF Primary Care Provider: Antwan Buchanan Referrals: Antwan Buchanan DO [Primary Care Provider] - Disposition Disposition: Acute Care Hospital [facility]
[2022-11-12] MEDS: Ipratropium/Albuterol Sulfate 3 ML AMPUL.NEB INHALATION (15:15)
--- NOTE | 2022-11-12 15:35 | CT_ITS ---
INDICATION: Chest pain, dyspnea, and abdominal pain EXAMINATION: CTA CHEST, ABDOMEN AND PELVIS WITH CONTRAST - TECHNIQUE: A CTA of the chest, abdomen, and pelvis is obtained with sagittal and coronal reconstructed MIP views. Three-dimensional surface rendered sequence of the thoracic and abdominal aorta was obtained. A radiation dose optimization technique was used for this scan. 100 mL of Isovue-370. Oral contrast: None. COMPARISON: CT of the chest dated June 12, 2014. FINDINGS: CT CHEST: THORACIC AORTA: No atheromatous disease, no aneurysmal changes or dissection. ABDOMINAL AORTA: No aneurysm or dissection. No significant atheromatous disease. The iliac arteries are unremarkable. LUNGS: The lungs are hyperexpanded. Large lucencies in are present both lungs probably secondary to severe emphysema. There is bronchiectasis in both lower lobes. Large lucency in left lower lobe is probably secondary to severe emphysema rather than a bulla. There is no obvious airspace consolidation. No effusions or pneumothorax. MEDIASTINUM: The thyroid gland is normal. No mediastinal or hilar adenopathy. HEART: Heart is normal size. No pericardial effusion. No CAD. CT ABDOMEN AND PELVIS: LIVER: The liver enhances homogeneously. Liver has diffusely decreased attenuation. No masses identified. GALLBLADDER: The CBD is normal. Normal gallbladder. SPLEEN: Normal. PANCREAS: No masses or inflammation. ADRENAL GLANDS: Normal. KIDNEYS AND URETERS: The kidneys both enhance appropriately. There are normal size and shape. No hydronephrosis or nephrolithiasis. No renal masses or cysts. STOMACH: Normal. SMALL BOWEL: There is no obvious dilated bowel. MESENTERY: No mesenteric inflammation. No ascites. COLON: There are multiple diverticula involving the sigmoid colon without obvious diverticulitis. No masses or inflammation. The colon otherwise is normal. APPENDIX: The appendix is NOT visualized. IVC: Normal. RETROPERITONEUM: No retroperitoneal lymphadenopathy. PELVIC STRUCTURES: Normal bladder. The prostate has a grossly normal appearance. SOFT TISSUES ABDOMEN: The anterior abdominal wall is normal. SOFT TISSUE CHEST: The extrathoracic soft tissues are normal. BONES: No fractures or significant degenerative disease. CT/CTA Chst, Abd, Pel W and/or WO IMPRESSION: 1. Severe emphysematous changes and bronchiectasis. 2. No CT evidence for aortic dissection. 3. Colonic diverticulosis without diverticulitis. 4. Hepatic steatosis. Electronically Signed: No Qiu MD at 16:35 EDT Reading Location ID and State: [facility] , Service support ,
[2022-11-12 15:46] LABS: Absolute Lymphocyte Count 1.77 X10^3/uL (0.83-4.51); Absolute Neutrophil Count 8.3 X10^3/uL (2.0-7.7); Basophil# 0.03 X10^3/uL; Basophil% 0.3 % (0-1); Eosinophil# 0.09 X10^3/uL; Eosinophils% 0.8 % (0-5); Hematocrit 21.7 % (40-54); Lymphocyte # 1.77 X10^3/ul (0.83-4.51); Lymphocyte % 16.4 % (19-41); Mean Corp Hgb Conc 26.7 g/dL (32-36); Mean Corpuscular Hgb 19.3 pg (27.0-32.0); Mean Corpuscular Volume 72.3 fL (80-94); Mean Platelet Vol. 9.4 fl (6.2-12.0); Monocyte% 5.5 % (0-10); NRBC Flagged by Analyzer 0.3 % (0-5); Neutrophil # 8.27 X10^3/uL (2.7-7.7); Neutrophil % 76.4 % (47-70); POSITIVE COUNT YES; Platelet Count 507 K/mm3 (150-450); RBC Distribution Width CV 17.4 % (11.6-14.6); RBC Distribution Width SD 45.9 fl (35.1-43.9); White Blood Count 10.8 K/mm3 (4.4-11.0)
[2022-11-12 15:53] LABS: AST(SGOT) 8 U/L (15-37); Alanine Aminotransfer ALT/SGPT 23 U/L (16-61); Albumin, Serum 3.6 g/dL (3.2-5.0); Alkaline Phosphatase 78 U/L (45-117); Anion Gap 6 (5-15); BUN 20 mg/dL (7-18); BUN/Creat Ratio 18.2 RATIO (10-20); Calcium,Total 8.7 mg/dL (8.5-10.1); Chloride 105 mmol/L (98-107); EST Glomerular Filtration Rate 75 mL/min (>60); Est Glom Filt Rate - Afr Amer 90 mL/min (>60); Globulin 3.6 g/dL (2.2-4.2); Glucose 113 mg/dL (74-106); Potassium 3.9 mmol/L (3.5-5.1); Protein, Total 7.2 g/dL (6.4-8.2); Sodium Level 139 mmol/L (136-145); Troponin-I HS 4 pg/mL (3.0-78.0)
[2022-11-12 15:57] LABS: Hemoglobin 5.8 g/dL (13.0-16.5)
--- NOTE | 2022-11-12 18:01 | HP.PCM.HOS_ITS ---
HPI - General General Date of Admission: 11/12/22 HPI Narrative LUIS AVILA, is a 52 M who presents to the foot with increased shortness of breath. He is normally on 4 L nasal cannula which is what he is on now, but he felt more short of breath. His increased shortness of breath start about 3 days ago and has been slowly getting worse. He is also noticed some bright red blood per rectum but he does not notice anything mixed in with the stool and he has not noticed black stools. He had called his PCP because of the back pain that he was having which she does have intermittently at baseline and they told him that it was likely a flareup of his diverticulitis. In the ER he is found to have a hemoglobin of 5.8, in the beginning of October it was 9 he does have a little bit of a slow bleed and his indices are also indicative of anemia due to blood loss. CTA of the chest abdomen pelvis was unremarkable, he does have significant bronchiectasis and emphysema but no other findings in imaging. No diverticulitis. [facility] Medical History Alcohol abuse Anxiety COPD (chronic obstructive pulmonary disease) Depression Exposure to COVID-19 virus History of bacterial pneumonia History of tobacco use Smoker TIA (transient ischemic attack) Ulcer Home Medications sertraline 100 mg tablet 100 mg PO DAILY mood 11/19/14 [History Last Taken 10/19/22 10:00] pantoprazole 40 mg tablet,delayed release 40 mg PO BID stomache 03/20/21 [History Last Taken 10/19/22 10:00] trazodone 50 mg tablet 100 - 150 mg PO PRN sleep 03/20/21 [History Last Taken 03/18/21] ipratropium 0.5 mg-albuterol 3 mg (2.5 mg base)/3 mL nebulization soln 3 ml inhalation Q4H PRN breathing 08/15/21 [History Last Taken 10/19/22 10:00] albuterol sulfate 90 mcg/actuation aerosol inhaler (Ventolin HFA) 2 puff inhalation Q4H PRN PRN Wheezing ##1 02/10/22 [Rx Last Taken 10/19/22 10:00] Allergy/AdvReac Type Severity Reaction Status Date / Time tramadol HCl [From [facility]] Allergy Swelling Verified 11/12/22 14:41 codeine AdvReac PT UNSURE Verified 11/12/22 14:41 OF REACTION Family History (Updated 11/12/22 @ 18:[address] Kelton Gutierrez MD) Other Cancer Diabetes Heart disease Hypertension Surgical History History of chest tube placement History of herniorrhaphy History of tonsillectomy History of tracheostomy Social History household members: none Smoking Status: Current some day smoker tobacco type: cigarettes and smokeless tobacco substance use type: does not use ROS Constitutional Constitutional: Reports fatigue; Denies chills, fever(s) or malaise Eyes Eyes: Denies blurry vision ENT HEENT: Denies headache(s) or nasal discharge Cardiovascular Cardiovascular: Denies chest pain, dyspnea on exertion or syncope Respiratory/Chest Respiratory/Chest: Reports shortness of breath at rest and shortness of breath with exertion; Denies cough Gastrointestinal Gastrointestinal: Reports hematochezia; Denies constipation, diarrhea, nausea or vomiting Genitourinary Genitourinary: Denies dysuria Neurologic Neurologic: Denies focal weakness, numbness or tremor(s) Psychiatric Psychiatric: Denies anxiety or depression Vital Signs Vital Signs Vital Signs: 11/12/22 14:41 11/12/22 15:02 11/12/22 15:04 Temperature 99 F Temperature Source Temporal Pulse Rate 109 H 111 H Respiratory Rate 26 H 18 Respiratory Effort Short of Breath Labored Respiratory Depth Normal Respiratory Pattern Tachypnea Blood Pressure 123/87 H 133/82 H Blood Pressure Mean 99 99 Pulse Ox 99 97 Oxygen Delivery Method Nasal Cannula Nasal Cannula Nasal Cannula Oxygen Flow Rate (L/min) 4 4 4 11/12/22 15:18 11/12/22 16:11 11/12/22 17:24 Temperature 97.8 F Temperature Source Temporal Pulse Rate 100 99 99 Respiratory Rate 18 19 H 18 Respiratory Effort Respiratory Depth Respiratory Pattern Normal Blood Pressure 140/85 H 134/88 H Blood Pressure Mean 103 103 Pulse Ox 98 97 Oxygen Delivery Method Nasal Cannula Nasal Cannula Oxygen Flow Rate (L/min) 4 11/12/22 17:24 Temperature Temperature Source Pulse Rate 99 Respiratory Rate Respiratory Effort Respiratory Depth Respiratory Pattern Blood Pressure 134/88 H Blood Pressure Mean 103 Pulse Ox Oxygen Delivery Method Oxygen Flow Rate (L/min) Physical Exam Narrative General: Alert, Oriented x3, Cooperative, No apparent distress HEENT: Atraumatic, PERRLA, EOMI, Normocephalic, poor dentition, pale evidence of a previous trach Oral: Moist Mucosa Neck: Supple, No JVD Lungs: Diminished, Normal air movement, No rhonchi, No wheeze, No rales Cardiovascular: Regular rate, Regular Rhythm, Normal S1, Normal S2, No murmurs Abdomen: Soft, Non Tender, Non-Distended, No Hepato-splenomegaly Extremities: No edema, Capillary Refill Less than 3 Seconds Skin: No rashes, No breakdown Musculoskeletal: No Tenderness to Palpation of Joints or Extremities Neurological: Cranial nerves II-XII grossly intact, Motor Exam 5/5 strength throughout, Sensory exam intact to light touch and pain Psych/Mental Status: Normal Affect, Appropriate Results Lab / Micro Data 11/12/22 15:25 11/12/22 15:25 Labs: Laboratory Results - last 24 hr 11/12/22 15:25: WBC 10.8, RBC 3.00 L, Hgb 5.8 L*, Hct 21.7 L, MCV 72.3 L, MCH 19.3 L, MCHC 26.7 L, RDW Std Deviation 45.9 H, RDW Coeff of Maya 17.4 H, Plt Count 507 H, MPV 9.4, Immature Gran % (Auto) 0.600, Neut % (Auto) 76.4 H, Lymph % (Auto) 16.4 L, Cloud % (Auto) 5.5, Eos % (Auto) 0.8, Baso % (Auto) 0.3, Absolute Neuts (auto) 8.3 H, Absolute Lymphs (auto) 1.77, Nucleated RBC % 0.3, Diff Path Review July, Sodium 139, Potassium 3.9, Chloride 105, Carbon D ioxide 28.0, Anion Gap 6, BUN 20 H, Creatinine 1.10, Est GFR (MDRD) Af Amer 90, Est GFR (MDRD) Non-Af 75, BUN/Creatinine Ratio 18.2, Glucose 113 H, Calcium 8.7, Total Bilirubin 0.20, AST 8 L, ALT 23, Alkaline Phosphatase 78, Troponin I High Sens 4, Total Protein 7.2, Albumin 3.6, Globulin 3.6, Albumin/Globulin Ratio 1.0 11/12/22 17:10: Crossmatch See Detail Radiology Impression Chest/Abdomen/Pelvis CTA 11/12/22 15:35 IMPRESSION: 1. Severe emphysematous changes and bronchiectasis. 2. No CT evidence for aortic dissection. 3. Colonic diverticulosis without diverticulitis. 4. Hepatic steatosis. Electronically Signed: No Qiu MD at 16:35 EDT Reading Location ID and State: [facility] / [place] , Service support , Assessment & Plan Assessment/Plan (1) Acute GI bleeding: (2) Acute anemia: PLAN: Plan 1. Acute blood loss anemia secondary to GI bleed ? This is likely the main sales route driver of his shortness of breath especially in the setting of his emphysema and 4 L of oxygen requirement ? We will transfuse 2 units already ordered in the ER ? We will prep him for colonoscopy and EGD tomorrow, appreciate GIs assistance ? Continue with IV Protonix twice daily 2. COPD with history of tracheostomy and work-up for lung transplant ? He is on his baseline oxygen requirements ? We will continue with his home breathing treatments ? At this time do not see an indication for steroids 3. Anxiety/depression ? Stable ? Continue with Zoloft DVT: SCDs 75 minutes was spent on direct patient care, including documentation as well as chart review and collaboration with colleagues Charges/Coding Visit Charges Inpatient E&M: 39642 Init Hosp L3
[2022-11-12] MEDS: Electrolyte Solution/Peg's 4000 ML 2000 ML PO (22:19)
--- NOTE | 2022-11-12 23:00 | CON.PCM.GI_ITS ---
HPI Consult Data Date of Consult: 11/12/22 HPI Narrative Reason for Consultation: Anemia HPI Narrative: LUIS AVILA, is a 52 M who presents complaint of shortness of breath and blood in the stool. He is on home oxygen for COPD and wears 4L. Patient states he has a history of diverticulitis. For the last 2 to 3 days he has had a little bit of red blood in his stool. His stool has not been black. He has not been moving his bowels more. He sometimes gets cramping across his lower abdomen. But he sometimes gets this anyway. He thinks he is having diverticulitis because of the stress of his life. His last colonoscopy was 5 or 6 years ago. He has no history of intra-abdominal surgeries ever. He is still eating and drinking well. No urinary symptoms. Patient also complains of dyspnea. He has advanced COPD and is actually being evaluated for possible double lung transplant. He is on 4 L of oxygen at baseline. The last about 3 days he has had some slight increased difficulty breathing. He attributes this to the stress of having his diverticulitis. He is coughing but no change in sputum. No hemoptysis. The reason he came in today is he was on his way to see his doctor for an x-ray for his abdomen and he had to walk further than usual which caused more dyspnea which prompted his friend called EMS. He feels back to about baseline now. Of note, EMS gave both DuoNeb and IV Solu-Medrol already so IV Solu-Medrol was not repeated here. In the ED was discovered to have an iron deficiency anemia. He said he had a history of anemia in the past which required iron therapy. He said he was diagnosed with this after undergoing temporary renal replacement therapy due to acute kidney injury after developing severe pneumonia back in 2014. He does not take iron at this time. [facility] Medical History Alcohol abuse Anxiety COPD (chronic obstructive pulmonary disease) Depression Exposure to COVID-19 virus History of bacterial pneumonia History of tobacco use Smoker TIA (transient ischemic attack) Ulcer Home Medications sertraline 100 mg tablet 100 mg PO DAILY mood 11/19/14 [History Last Taken 10/19/22 10:00] pantoprazole 40 mg tablet,delayed release 40 mg PO BID stomache 03/20/21 [History Last Taken 10/19/22 10:00] trazodone 50 mg tablet 100 - 150 mg PO PRN sleep 03/20/21 [History Last Taken 03/18/21] ipratropium 0.5 mg-albuterol 3 mg (2.5 mg base)/3 mL nebulization soln 3 ml inhalation Q4H PRN breathing 08/15/21 [History Last Taken 10/19/22 10:00] albuterol sulfate 90 mcg/actuation aerosol inhaler (Ventolin HFA) 2 puff inhalation Q4H PRN PRN Wheezing ##1 02/10/22 [Rx Last Taken 10/19/22 10:00] Allergy/AdvReac Type Severity Reaction Status Date / Time tramadol [facility]] Allergy Swelling Verified 11/12/22 14:41 codeine AdvReac PT UNSURE Verified 11/12/22 14:41 OF REACTION Family History (Updated 11/12/22 @ 18:[address] Kelton Gutierrez MD) Other Cancer Diabetes Heart disease Hypertension Surgical History History of chest tube placement History of herniorrhaphy History of tonsillectomy History of tracheostomy Social History household members: none Smoking Status: Current some day smoker tobacco type: cigarettes and smokeless tobacco substance use type: does not use ROS Constitutional Constitutional: Reports fatigue; Denies chills, fever(s) or malaise Eyes Eyes: Denies blurry vision ENT HEENT: Denies headache(s) or nasal discharge Cardiovascular Cardiovascular: Denies chest pain, dyspnea on exertion or syncope Respiratory/Chest Respiratory/Chest: Reports shortness of breath at rest and shortness of breath with exertion; Denies cough Gastrointestinal Gastrointestinal: Reports hematochezia; Denies constipation, diarrhea, nausea or vomiting Genitourinary Genitourinary: Denies dysuria Neurologic Neurologic: Denies focal weakness, numbness or tremor(s) Psychiatric Psychiatric: Denies anxiety or depression Physical Exam Narrative General: Alert, Oriented x3, Cooperative, No apparent distress HEENT: Atraumatic, PERRLA, EOMI, Normocephalic, poor dentition, pale evidence of a previous trach Oral: Moist Mucosa Neck: Supple, No JVD Lungs: Diminished, Normal air movement, No rhonchi, No wheeze, No rales Cardiovascular: Regular rate, Regular Rhythm, Normal S1, Normal S2, No murmurs Abdomen: Soft, Non Tender, Non-Distended, No Hepato-splenomegaly Extremities: No edema, Capillary Refill Less than 3 Seconds Skin: No rashes, No breakdown Musculoskeletal: No Tenderness to Palpation of Joints or Extremities Neurological: Cranial nerves II-XII grossly intact, Motor Exam 5/5 strength throughout, Sensory exam intact to light touch and pain Psych/Mental Status: Normal Affect, Appropriate Lab / Micro Data 11/13/22 06:22 11/13/22 06:22 Labs: Laboratory Results - last 24 hr 11/12/22 15:25: WBC 10.8, RBC 3.00 L, Hgb 5.8 L*, Hct 21.7 L, MCV 72.3 L, MCH 19.3 L, MCHC 26.7 L, RDW Std Deviation 45.9 H, RDW Coeff of Maya 17.4 H, Plt Count 507 H, MPV 9.4, Immature Gran % (Auto) 0.600, Neut % (Auto) 76.4 H, Lymph % (Auto) 16.4 L, Clarke % (Auto) 5.5, Eos % (Auto) 0.8, Baso % (Auto) 0.3, Absolute Neuts (auto) 8.3 H, Absolute Lymphs (auto) 1.77, Nucleated RBC % 0.3, Diff Path Review July, Sodium 139, Potassium 3.9, Chloride 105, Carbon Dioxide 28.0, Anion Gap 6, BUN 20 H, Creatinine 1.10, Est GFR (MDRD) Af Amer 90, Est GFR (MDRD) Non-Af 75, BUN/Creatinine Ratio 18.2, Glucose 113 H, Calcium 8.7, Total Bilirubin 0.20, AST 8 L, ALT 23, Alkaline Phosphatase 78, Troponin I High Sens 4, Total Protein 7.2, Albumin 3.6, Globulin 3.6, Albumin/Globulin Ratio 1.0 11/12/22 17:10: Blood Type B POSITIVE, Antibody Screen NEGATIVE, Crossmatch See Detail 11/13/22 06:22: WBC 11.7 H, RBC 3.78 L, Hgb 8.3 L, Hct 29.1 L, MCV 77.0 L D, MCH 22.0 L, MCHC 28.5 L D, RDW Std Deviation 56.6 H, RDW Coeff of Maya 20.6 H, Plt Count 527 H, MPV 9.9, Immature Gran % (Auto) 0.700, Neut % (Auto) 85.7 H, Lymph % (Auto) 8.6 L, Clarke % (Auto) 4.9, Eos % (Auto) 0.0, Baso % (Auto) 0.1, Absolute Neuts (auto) 10.1 H, Absolute Lymphs (auto) 1.01, Nucleated RBC % 0.3, Diff erential Comment SCANNED, Hypochromasia 1+, Anisocytosis 2+, Microcytosis 1+, Macrocytosis 1+, PT 14.3, INR 1.1, APTT 29.1, Sodium 139, Potassium 4.2, Chloride 104, Carbon Dioxide 27.0, Anion Gap 8, BUN 18, Creatinine 0.98, Estim Creat Clear Calc 91.04, Est GFR (MDRD) Af Amer 103, Est GFR (MDRD) Non-Af 85, BUN/Creatinine Ratio 18.4, Glucose 115 H, Calcium 8.7 Radiology Impression Chest/Abdomen/Pelvis CTA 11/12/22 15:35 IMPRESSION: 1. Severe emphysematous changes and bronchiectasis. 2. No CT evidence for aortic dissection. 3. Colonic diverticulosis without diverticulitis. 4. Hepatic steatosis. Electronically Signed: No Qiu MD at 16:35 EDT Reading Location ID and State: [address] [place] [address] , Service support , Assessment & Plan Assessment/Plan (1) Acute GI bleeding: (2) Acute anemia: PLAN: Plan Acute on chronic blood loss anemia secondary to GI bleed ? 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 We will transfuse 2 units already ordered in the ER ? We will prep him for colonoscopy and EGD tomorrow ? Continue with IV Protonix twice daily - Check iron studies - Transfused 250 mg of IV iron - Check celiac profile - If EGD and colonoscopy are negative then he will need a capsule endoscopy Charges/Coding Visit Charges Inpatient E&M: 53135 Init Hosp L3
[2022-11-13] VITALS (20 sets, daily range): BP systolic 111–137; BP diastolic 64–99; PULSE 83–103; RESP 14–18; TEMP 36.3–37; O2SAT 93–100
--- NOTE | 2022-11-13 | COLBX_PTH ---
PATHOLOGY RESULTS PATIENT: LUIS AVILA II LOC: [facility] U#:[id number] AGE/SX: 52/M ROOM: [facility] RE11/12/[address]: Dr. Cuca Flood MD : 1970 BED: 1 DIS: 11/14/2022 SPEC #: [id number] RECD: 11/13/22 09:06 STATUS: CARLITA EAGLE #: [id number] ORALIA: 11/13/22 00:[address]: Adán Berg DEPT: SURGICAL PATHOLOGY RECD BY: Maine Armstrong ENTERED: 11/16/22 14:41 SP TYPE: COLON BX OTHR DR: DO Dr. Kelton Fraire MD Dr. Paige Pierce, MD Tissues: Duodenum, NOS Procedures: Surgery Specimen Level IV HEADER OPERATION: Colonoscopy, EGD PRE-OP DIAGNOSIS: Anemia TISSUE SUBMITTED: Duodenum biopsy MICROSCOPIC DIAGNOSIS Duodenum, biopsy: Fragments of small intestinal mucosa, no pathologic diagnosis. DENIA:deb 11/17/2022 MICROSCOPIC DESCRIPTION Slides are reviewed. GROSS DESCRIPTION Received in fixative is one container labeled with the patient's name and designated duodenum. The specimen consists of two irregular fragments of light gooden soft tissue that in aggregate measure 0.6 x 0.3 x 0.1 cm. The specimen is totally submitted in one cassette. / DENIA:deb 11/16/2022 TC:4 CPT: 60730
[2022-11-13] MEDS: 0.9% Normal Saline 1,000 ML 100 ML IV (03:35)
--- NOTE | 2022-11-13 05:55 | EKG12_ITS ---
Test Reason : AM Blood Pressure : / mmHG Vent. Rate : 095 BPM Atrial Rate : 095 BPM P-R Int : 136 ms QRS Dur : 072 ms QT Int : 352 ms P-R-T Axes : 083 079 080 degrees QTc Int : 442 ms Normal sinus rhythm Normal ECG When compared with ECG of 12-NOV-2022 14:53, MANUAL COMPARISON REQUIRED, DATA IS UNCONFIRMED Confirmed by GENESIS YADAV, NAN ([id number]), editor house organ DAVID TREJO ([id number]) on 12/27/2022 12:48:59 PM Referred By: Confirmed By:NAN HURTADO MD
[2022-11-13 07:36] LABS: Absolute Lymphocyte Count 1.01 X10^3/uL (0.83-4.51); Absolute Neutrophil Count 10.1 X10^3/uL (2.0-7.7); Basophil% 0.1 % (0-1); Hematocrit 29.1 % (40-54); Hemoglobin 8.3 g/dL (13.0-16.5); Lymphocyte # 1.01 X10^3/ul (0.83-4.51); Lymphocyte % 8.6 % (19-41); Mean Corp Hgb Conc 28.5 g/dL (32-36); Mean Platelet Vol. 9.9 fl (6.2-12.0); Monocyte# 0.58 X10^3/uL; Monocyte% 4.9 % (0-10); Neutrophil # 10.05 X10^3/uL (2.7-7.7); Neutrophil % 85.7 % (47-70); POSITIVE MORPHOLOGY YES; Platelet Count 527 K/mm3 (150-450); RBC Distribution Width CV 20.6 % (11.6-14.6); RBC Distribution Width SD 56.6 fl (35.1-43.9); Red Blood Count 3.78 M/mm3 (4.6-6.2); White Blood Count 11.7 K/mm3 (4.4-11.0)
[2022-11-13 07:37] LABS: Basophil# 0.01 X10^3/uL; NRBC Flagged by Analyzer 0.3 % (0-5)
[2022-11-13 07:39] LABS: Differential Indicated SCAN CRITERIA MET
[2022-11-13 07:58] LABS: Anion Gap 8 (5-15); BUN 18 mg/dL (7-18); BUN/Creat Ratio 18.4 RATIO (10-20); Calcium,Total 8.7 mg/dL (8.5-10.1); Chloride 104 mmol/L (98-107); Creatinine, Serum 0.98 mg/dL (0.70-1.30); EST Glomerular Filtration Rate 85 mL/min (>60); Est Glom Filt Rate - Afr Amer 103 mL/min (>60); Estimated Creatinine Clearance 91.04 ml/min; Glucose 115 mg/dL (74-106); Potassium 4.2 mmol/L (3.5-5.1); Sodium Level 139 mmol/L (136-145)
[2022-11-13 08:43] LABS: Anisocytosis 2+; Differential Comment SCANNED
[2022-11-13 08:44] LABS: Hypochromasia 1+; International Normalized Ratio 1.1; Macrocytosis 1+; Microcytosis 1+; Partial Thromboplast Time 29.1 Seconds (24.1-36.2); Prothrombin Time (Protime)PT. 14.3 SECONDS (11.7-14.9)
--- NOTE | 2022-11-13 09:09 | OP.EGD_ITS ---
Patient Name: Toño Steele Procedure Date: 11/13/2022 7:57 AM Date of : 1970 Age: 52 Procedure: Upper GI endoscopy Indications: Iron deficiency anemia Providers: Adán Berg DO Medicines: Monitored Anesthesia Care Patient Profile: This is a 52 year old male. Refer to note in patient chart for documentation of history and physical. Patient has symptoms of chronic dyspepsia and chronic nausea. Complications: No immediate complications. Procedure: Pre-Anesthesia Assessment: - Prior to the procedure, a History and Physical was performed, and patient medications and allergies were reviewed. The patient is competent. The risks and benefits of the procedure and the sedation options and risks were discussed with the patient. All questions were answered and informed consent was obtained. Patient identification and proposed procedure were verified by the physician. Mental Status Examination: normal. CV Examination: normal. Prophylactic Antibiotics: The patient does not require prophylactic antibiotics. Prior Anticoagulants: The patient has taken no anticoagulant or antiplatelet agents. After reviewing the risks and benefits, the patient was deemed in satisfactory condition to undergo the procedure. The anesthesia plan was to use monitored anesthesia care (MAC). Immediately prior to administration of medications, the patient was re-assessed for adequacy to receive sedatives. The heart rate, respiratory rate, oxygen saturations, blood pressure, adequacy of pulmonary ventilation, and response to care were monitored throughout the procedure. The physical status of the patient was re-assessed after the procedure. After obtaining informed consent, the endoscope was passed under direct vision. Throughout the procedure, the patient's blood pressure, pulse, and oxygen saturations were monitored continuously. The colonoscope was introduced through the mouth, and advanced to the second part of duodenum. The upper GI endoscopy was accomplished without difficulty. The patient tolerated the procedure well. Scope In: 8:29:58 AM Scope Out: 8:32:50 AM Total Procedure Duration Time 0 hours 2 minutes 52 seconds Findings: The examined esophagus was normal. A small hiatal hernia was present. No other significant abnormalities were identified in a careful examination of the stomach. Patchy mildly erythematous mucosa without active bleeding and with no stigmata of bleeding was found in the duodenal bulb and in the first portion of the duodenum. Biopsies were taken with a cold forceps for histology. Verification of patient identification for the specimen was done. Estimated blood loss was minimal. Impression: - Normal esophagus. - Small hiatal hernia. - Erythematous duodenopathy. Biopsied. Recommendation: - Discharge patient to home. - Resume previous diet. - Continue present medications. - Await pathology results. - Check celiac disease profile - Check hemoglobin electrophoresis Procedure Code(s): --- Professional --- 22498, Esophagogastroduodenoscopy, flexible, transoral; with biopsy, single or multiple CPT copyright 2021 [employer]. All rights reserved. The codes documented in this report are preliminary and upon soda dispenser review may be revised to meet current compliance requirements. Adán Berg DO 11/13/2022 9:08:17 AM This report has been signed electronically. Number of Addenda: 0 Note Initiated On: 11/13/2022 7:57 AM
--- NOTE | 2022-11-13 09:09 | OP.CCLET_ITS ---
11/13/2022 Antwan Buchanan [address] [place] [address] Re : Upper GI endoscopy procedure for Toño Steele Dear Dr. Buchanan This procedure was performed on Sunday, November 13, 2022. My impressions and recommendations are as follows: Impressions : - Normal esophagus. - Small hiatal hernia. - Erythematous duodenopathy. Biopsied. Recommendations : - Discharge patient to home. - Resume previous diet. - Continue present medications. - Await pathology results. - Check celiac disease profile - Check hemoglobin electrophoresis My findings are described in the full procedure note, which is enclosed. If I can be of further assistance, please feel free to contact me at . Sincerely, Adán Berg, 11/13/2022 9:08:17 AM This report has been signed electronically.
--- NOTE | 2022-11-13 09:13 | OP.COLON_ITS ---
Patient Name: Toño Steele Procedure Date: 11/13/2022 8:33 AM Date of : 1970 Age: 52 Procedure: Colonoscopy Indications: Iron deficiency anemia Providers: Adán Berg DO Medicines: Monitored Anesthesia Care Patient Profile: This is a 52 year old male. Refer to note in patient chart for documentation of history and physical. Patient has symptoms of chronic dyspepsia and chronic nausea. Last Colonoscopy: more than 3 years ago. Complications: No immediate complications. Procedure: Pre-Anesthesia Assessment: - Prior to the procedure, a History and Physical was performed, and patient medications and allergies were reviewed. The patient is competent. The risks and benefits of the procedure and the sedation options and risks were discussed with the patient. All questions were answered and informed consent was obtained. Patient identification and proposed procedure were verified by the physician. Mental Status Examination: normal. CV Examination: normal. Prophylactic Antibiotics: The patient does not require prophylactic antibiotics. Prior Anticoagulants: The patient has taken no anticoagulant or antiplatelet agents. After reviewing the risks and benefits, the patient was deemed in satisfactory condition to undergo the procedure. The anesthesia plan was to use monitored anesthesia care (MAC). Immediately prior to administration of medications, the patient was re-assessed for adequacy to receive sedatives. The heart rate, respiratory rate, oxygen saturations, blood pressure, adequacy of pulmonary ventilation, and response to care were monitored throughout the procedure. The physical status of the patient was re-assessed after the procedure. After I obtained informed consent, the scope was passed under direct vision. Throughout the procedure, the patient's blood pressure, pulse, and oxygen saturations were monitored continuously. The colonoscope was introduced through the anus and advanced to the terminal ileum. The colonoscopy was performed without difficulty. The patient tolerated the procedure well. The quality of the bowel preparation was adequate. The terminal ileum, ileocecal valve, appendiceal orifice, and rectum were photographed. Scope In: 8:37:22 AM Scope Withdrawal Time 0 hours 7 minutes 43 seconds Scope Out: 8:53:22 AM Total Procedure Duration Time 0 hours 16 minutes 0 seconds Findings: The perianal and digital rectal examinations were normal. Multiple small and large-mouthed diverticula were found in the recto-sigmoid colon, sigmoid colon and descending colon. Stool was found in the rectum, in the recto-sigmoid colon, in the sigmoid colon and in the cecum. The terminal ileum appeared normal. Non-bleeding internal hemorrhoids were found during retroflexion. The hemorrhoids were mild and Grade I (internal hemorrhoids that do not prolapse). Impression: - Diverticulosis in the recto-sigmoid colon, in the sigmoid colon and in the descending colon. - Stool in the rectum, in the recto-sigmoid colon, in the sigmoid colon and in the cecum. - The examined portion of the ileum was normal. - Non-bleeding internal hemorrhoids. - No specimens collected. Recommendation: - Continue present medications. - Repeat colonoscopy in 5 years for surveillance. Procedure Code(s): --- Professional --- 08522, Colonoscopy, flexible; diagnostic, including collection of specimen(s) by brushing or washing, when performed (separate procedure) CPT copyright 2021 [employer]. All rights reserved. The codes documented in this report are preliminary and upon ceramic artist review may be revised to meet current compliance requirements. Adán Berg DO 11/13/2022 9:12:51 AM This report has been signed electronically. Number of Addenda: 0 Note Initiated On: 11/13/2022 8:33 AM
--- NOTE | 2022-11-13 09:13 | OP.CCLET_ITS ---
11/13/2022 Antwan Buchanan [address] [place] [address] Re : Colonoscopy procedure for Toño Call Dear Dr. Buchanan This procedure was performed on Sunday, November 13, 2022. My impressions and recommendations are as follows: Impressions : - Diverticulosis in the recto-sigmoid colon, in the sigmoid colon and in the descending colon. - Stool in the rectum, in the recto-sigmoid colon, in the sigmoid colon and in the cecum. - The examined portion of the ileum was normal. - Non-bleeding internal hemorrhoids. - No specimens collected. Recommendations : - Continue present medications. - Repeat colonoscopy in 5 years for surveillance. My findings are described in the full procedure note, which is enclosed. If I can be of further assistance, please feel free to contact me at . Sincerely, Adán Friend, 11/13/2022 9:12:51 AM This report has been signed electronically.
[2022-11-13 09:45] LABS: Platelet Count 508 K/mm3 (150-450); RET-HE 16.6 pg (30-35); Reticulocyte Count 1.27 % (0.5-1.5)
[2022-11-13] MEDS: Sertraline 100 MG Tablet PO (10:19)
[2022-11-13 10:29] LABS: Ferritin 3 ng/mL (26-388); Iron 13 ug/dL (65-175); Iron Binding Capacity,Total 583 ug/dL (250-450); PERCENT IRON SATURATION 2.2 % (15.0-55.0)
[2022-11-13] MEDS: Albuterol 2.5 MG/3 ML VIAL.NEB. INHALATION (11:10)
[2022-11-13] MEDS: Acetaminophen 325 MG Tablet 650 MG PO ×2 (11:23→20:23)
--- NOTE | 2022-11-13 11:30 | CASEMGMT ---
ADELIA HOFFMANN Face to Face with patient for initial transition planning/care coordination assessment. RN CM introduced self and role at [facility]. Patient lying in bed, alert and oriented. Patient willing to participate in assessment and is able to answer all questions appropriately. Care providers, pharmacy, and demographics verified. Patient wishes to discharge home, denies need for home health at this time. Patient states he has no further needs or concerns at this time. CM to follow for discharge planning needs that may arise. PCP: Dewayne Specialists: [employer] picture tube rebuilder Preferred Pharmacy: [facility] Insurance: [employer] Prescription Benefit: yes Living Will/HPOA: yes, son Stalin Call HPOA LNOK: son Living Arrangements: Patient lives alone in a first floor apartment with no step. Patient is independent at home Transportation: [place], friend DME/HHC: Patient has shower chair, grab bars, and home oxygen through [employer]. Patient was at in [place] in the past Disposition Plan: Patient to discharge home with family support and follow-up plans in place. Will monitor for increase in home oxygen Rosario GRESHAM, RN, CM
--- NOTE | 2022-11-13 11:34 | PN.HOSP_ITS ---
Reason for Visit Reason for Visit: Diagnoses Anemia, unspecified (11/12/22) Gastrointestinal hemorrhage, unspecified (11/12/22) Subjective Subjective Patient feeling much better than he had, so far tolerating diet, breathing improving Objective Data Objective Data Vital Signs: Vital Signs Temp Pulse Resp BP Pulse Ox O2 Del Method O2 Flow Rate 97.8 F 101 H 18 126/92 H 96 Nasal Cannula 2 11/13/22 09:36 11/13/22 11:15 11/13/22 11:15 11/13/22 09:36 11/13/22 09:40 11/13/22 09:40 11/13/22 09:40 Oxygen Flow Rate (L/min) 2 Oxygen Delivery Method Nasal Cannula Weight: 77.9 kg Body Mass Index (BMI) 24.6 Intake & Output: Intake and Output for Last 24 Hours 11/11/22 11/12/22 11/13/22 23:59 23:59 23:59 Intake Total 110 / 1010 1431.67 / 1431.67 Output Total 240 / 240 Balance 110 / 770 1191.67 / 1191.67 Lab / Micro Data 11/13/22 06:22 11/13/22 06:22 Labs: Laboratory Results - last 24 hr 11/12/22 15:25: WBC 10.8, RBC 3.00 L, Hgb 5.8 L*, Hct 21.7 L, MCV 72.3 L, MCH 19.3 L, MCHC 26.7 L, RDW Std Deviation 45.9 H, RDW Coeff of Maya 17.4 H, Plt Count 507 H, MPV 9.4, Immature Gran % (Auto) 0.600, Neut % (Auto) 76.4 H, Lymph % (Auto) 16.4 L, Leon % (Auto) 5.5, Eos % (Auto) 0.8, Baso % (Auto) 0.3, Absolute Neuts (auto) 8.3 H, Absolute Lymphs (auto) 1.77, Nucleated RBC % 0.3, Diff Path Review July, Sodium 139, Potassium 3.9, Chloride 105, Carbon Dioxide 28.0, Anion Gap 6, BUN 20 H, Creatinine 1.10, Est GFR (MDRD) Af Amer 90, Est GFR (MDRD) Non-Af 75, BUN/Creatinine Ratio 18.2, Glucose 113 H, Calcium 8.7, Total Bilirubin 0.20, AST 8 L, ALT 23, Alkaline Phosphatase 78, Troponin I High Sens 4, Total Protein 7.2, Albumin 3.6, Globulin 3.6, Albumin/Globulin Ratio 1.0 11/12/22 17:10: Blood Type B POSITIVE, Antibody Screen NEGATIVE, Crossmatch See Detail 11/13/22 06:22: WBC 11.7 H, RBC 3.78 L, Hgb 8.3 L, Hct 29.1 L, MCV 77.0 L D, MCH 22.0 L, MCHC 28.5 L D, RDW Std Deviation 56.6 H, RDW Coeff of Maya 20.6 H, Plt Count 527 H, MPV 9.9, Immature Gran % (Auto) 0.700, Neut % (Auto) 85.7 H, Lymph % (Auto) 8.6 L, Leon % (Auto) 4.9, Eos % (Auto) 0.0, Baso % (Auto) 0.1, Absolute Neuts (auto) 10.1 H, Absolute Lymphs (auto) 1.01, Nucleated RBC % 0.3, Differential Comment SCANNED, Hypochromasia 1+, Anisocytosis 2+, Microcytosis 1+, Macrocytosis 1+, Retic Count 1.27, Immature Retic Fraction 26.00 H, Retic Hgb Equivalent 16.6 L, PT 14.3, INR 1.1, APTT 29.1, Sodium 139, Potassium 4.2, Chloride 104, Carbon Dioxide 27.0, Anion Gap 8, BUN 18, Creatinine 0.98, Estim Creat Clear Calc 91.04, Est GFR (MDRD) Af Amer 103, Est GFR (MDRD) Non-Af 85, BUN/Creatinine Ratio 18.4, Glucose 115 H, Calcium 8.7, Iron 13 L, TIBC 583 H, I rene Saturation 2.2 L, Ferritin 3 L, Folate 6.50 Radiography Diagnostic Testing: Radiology Impression Chest/Abdomen/Pelvis CTA 11/12/22 15:35 IMPRESSION: 1. Severe emphysematous changes and bronchiectasis. 2. No CT evidence for aortic dissection. 3. Colonic diverticulosis without diverticulitis. 4. Hepatic steatosis. Electronically Signed: No Qiu MD at 16:35 EDT Reading Location ID and State: [address] [place] [address] , Service support , Physical Exam Narrative General: Alert, oriented, no apparent distress HEENT: Atraumatic, normocephalic Eyes: Anicteric, normal conjunctiva, extraocular movements grossly intact Neck: Supple Respiratory: Scattered wheezing, slight increased respiratory effort Cardiovascular: Regular rate and rhythm GI: Soft, nontender, nondistended Extremities: No edema Musculoskeletal: Moving all extremities Neuro: No overt focal neurological deficits Skin: No rashes appreciated Psych: Cooperative Assessment & Plan Assessment/Plan (1) Acute GI bleeding: (2) Acute anemia: PLAN: Plan 1. Acute blood loss anemia secondary to GI bleed ? This is likely the main pack train driver of his shortness of breath especially in the setting of his emphysema and 4 L of oxygen requirement ? We will transfuse 2 units already ordered in the ER ? We will prep him for colonoscopy and EGD tomorrow, appreciate GIs assistance ? Continue with IV Protonix twice daily -11/13: Status post 2 units packed red blood cells. With erythematous duodenopathy and small hiatal hernia, colonoscopy with nonbleeding internal hemorrhoids, otherwise unremarkable. GI following, patient given IV iron and iron studies and celiac profile ordered. Iron studies consistent with iron deficiency anemia with ferritin of 3 and an iron of 13, patient already received IV iron this a.m. Given relatively benign EGD and colonoscopy would likely need capsule endoscopy on outpatient basis. Patient has diet now, thus far tolerating 2. COPD with history of tracheostomy and work-up for lung transplant ? He is on his baseline oxygen requirements ? We will continue with his home breathing treatments ? At this time do not see an indication for steroids -11/13: Improving with improvement in anemia, continue his home as needed medications 3. Anxiety/depression ? Stable ? Continue with Zoloft #Tobacco use -Advise cessation -Patient accepted nicotine replacement, patch ordered DVT: SCDs 36 minutes was spent on direct patient care, including documentation as well as chart review and collaboration with colleagues Charges/Coding Visit Charges Inpatient E&M: 81234 Subs Hosp L2
[2022-11-13] MEDS: Ipratropium/Albuterol Sulfate 3 ML AMPUL.NEB INHALATION (21:20)
[2022-11-14] MEDS: Acetaminophen 325 MG Tablet 650 MG PO ×2 (02:58→09:31)
[2022-11-14 03:05] VITALS: BP 98/59; PULSE 86; RESP 18; TEMP 36.4; O2SAT 96
[2022-11-14 06:36] LABS: Absolute Lymphocyte Count 2.29 X10^3/uL (0.83-4.51); Basophil# 0.05 X10^3/uL; Basophil% 0.5 % (0-1); Eosinophil# 0.04 X10^3/uL; Eosinophils% 0.4 % (0-5); Hematocrit 26.7 % (40-54); Hemoglobin 7.5 g/dL (13.0-16.5); Lymphocyte # 2.29 X10^3/ul (0.83-4.51); Lymphocyte % 23.5 % (19-41); Mean Corp Hgb Conc 28.1 g/dL (32-36); Mean Corpuscular Volume 78.3 fL (80-94); Mean Platelet Vol. 9.5 fl (6.2-12.0); Monocyte# 1.22 X10^3/uL; Monocyte% 12.5 % (0-10); NRBC Flagged by Analyzer 1.3 % (0-5); Neutrophil # 5.99 X10^3/uL (2.7-7.7); Neutrophil % 61.6 % (47-70); POSITIVE MORPHOLOGY YES; Platelet Count 451 K/mm3 (150-450); RBC Distribution Width CV 20.5 % (11.6-14.6); RBC Distribution Width SD 57.7 fl (35.1-43.9); Red Blood Count 3.41 M/mm3 (4.6-6.2); White Blood Count 9.7 K/mm3 (4.4-11.0)
[2022-11-14 06:43] LABS: Differential Indicated SCAN CRITERIA MET
[2022-11-14 07:07] LABS: Anion Gap 1 (5-15); BUN 16 mg/dL (7-18); BUN/Creat Ratio 15.1 RATIO (10-20); Chloride 107 mmol/L (98-107); Creatinine, Serum 1.06 mg/dL (0.70-1.30); EST Glomerular Filtration Rate 78 mL/min (>60); Est Glom Filt Rate - Afr Amer 94 mL/min (>60); Estimated Creatinine Clearance 84.17 ml/min; Glucose 97 mg/dL (74-106); Potassium 3.8 mmol/L (3.5-5.1); Sodium Level 140 mmol/L (136-145)
[2022-11-14 08:26] LABS: Anisocytosis 2+; Differential Comment SCANNED; Hypochromasia 1+; Macrocytosis 1+; Microcytosis 1+
[2022-11-14 09:29] VITALS: BP 123/95; PULSE 94; RESP 17; TEMP 36.7; O2SAT 95
[2022-11-14] MEDS: Sertraline 100 MG Tablet PO (09:31)
[2022-11-14] MEDS: 0.9% Saline Lock 10 ML Syringe IV (09:38)
[2022-11-14 09:50] VITALS: PULSE 65; RESP 18
[2022-11-14] MEDS: Albuterol 2.5 MG/3 ML VIAL.NEB. INHALATION (09:50)
[2022-11-14 12:46] LABS: Base Excess 1 mmol/L (-2 to +2); Bicarbonate 26.2 mmol/L (22-26); Blood Gas Specimen Type ART; O2 Delivery Device Cannula; PO2 40 mmHG (75-100); SITE R Radial; SO2 72 % (95-99); Total Carbon Dioxide 28 mmol/L; pCO2 47.1 mmHg (35-45); pH 7.35 (7.35-7.45)
[2022-11-14 15:37] VITALS: BP 121/78; PULSE 96; RESP 16; TEMP 36.7; O2SAT 96
[2022-11-14 16:32] LABS: Blood Gas Specimen Type VEN; O2 Delivery Device Cannula; VBG BASE EXCESS 4 mmol/L (-1.0-3.5); VBG Bicarbonate 29 mmol/L (22-26); VBG PO2 199 mmHg (25-40); VBG SO2 100 % (50-70); VBG TCO2 30 mmol/L (23-33); VBG pCO2 49.5 mmHg (41-51); VBG pH 7.37 (7.32-7.42)
--- NOTE | 2022-11-14 16:35 | DCINST_ITS ---
Discharge Instructions Diet Discharge Diet: Light diet - advance as tolerated Activity Discharge Activity: - (Return to normal activity as tolerated) Follow Up Care Test Results: Test results from this visit will be discussed in further detail at your follow- up appointment, if applicable. Discharge Plan Admission Admit Date/Time: 11/12/22 17:35 Primary Reason for Your Visit: Weakness, shortness of breath Attending Provider: Cuca Flood Primary Care Provider: Antwan Buchanan Consulting Providers: Kelton Gutierrez Instructions Patient Instructions: Anemia, Asthma and COPD Additional Instructions / Restrictions: DISCHARGE INSTRUCTIONS PLEASE READ *Please take this with you to your next doctors appointment* -You will be discharged on an iron supplement, it will be important to make sure you do not become constipated, if you do you may need to take an [id number] supplement or contact your primary care physician -You will need to follow-up with Dr. Berg with GI in his office upon discharge. Please call his office to schedule your hospital follow-up appointment (ph. [phone]) -Would recommend lab work (CBC) to check your hemoglobin/blood counts in 2 to 3 days through your primary care physician's office. Please call their office upon discharge to obtain order for lab work. Ultimately you will have your iron studies rechecked by Dr. Berg's office as well -Please call your primary care provider's office upon discharge to schedule a hospital follow up within 1 week. -For any concerning signs or symptoms please call 911 or proceed to the nearest emergency department Discharge Orders/Prescriptions Prescriptions: New ferrous sulfate [Iron (ferrous sulfate)] 325 mg (65 mg iron) tablet 325 mg PO DAILY Qty: 90 0RF Continued sertraline 100 MG tablet 100 mg PO DAILY Patient Comments: MENTAL HEALTH trazodone 50 mg tablet 100 - 150 mg PO PRN Patient Comments: take 1 to 3 tablets by mouth at bedtime pantoprazole 40 mg tablet,delayed release (DR/EC) 40 mg PO BID Patient Comments: take 1 tablet by mouth twice a day ipratropium-albuterol 0.5 mg-3 mg(2.5 mg base)/3 mL Solution For Nebulization 3 ml INHALATION Q4H PRN (Reason: breathing) albuterol sulfate [Ventolin HFA] 90 mcg/actuation HFA aerosol inhaler 2 puff inhalation Q4H PRN PRN (Reason: Wheezing) Qty: 1 0RF Referrals / Follow Up: Antwan Buchanan DO [Primary Care Provider] - Within 1 Week Adán Berg DO [Med Staff - Active Staff] - ( -You will need to follow-up with Dr. Berg with GI in his office upon discharge. Please call his office to schedule your hospital follow-up appointment (ph. [phone])) Disposition Disposition (needs filled in before D/C Order can be placed): Home, Self Care
[2022-11-14 16:38] VITALS: PULSE 77; RESP 18
[2022-11-14] MEDS: Ipratropium/Albuterol Sulfate 3 ML AMPUL.NEB INHALATION (16:38)
--- NOTE | 2022-11-14 16:41 | DS.PCM_ITS ---
Providers Date of Admission: 11/12/22 Date of Discharge: 11/14/22 Primary Care Physician: Dr. Antwan Buchanan, DO Consultations 11/12/22 18:50 Consult: Gastroenterology Routine Consulting Provider: [facility] Reason for Consult: GI bleed EMERGENT Consult: No MD Notified: Yes Date Notified: 11/12/22 Time Notified: 17:38 Method of Notification: Verbal Reason For Visit: GI BLEED Diagnosis Discharge Diagnosis (1) Acute anemia: Status: Acute Code(s): D64.9 - Anemia, unspecified Plan #Acute blood loss anemia presumed secondary to GI bleed #Iron deficiency anemia #COPD with history of tracheostomy and work-up for lung transplant #Anxiety/depression #Tobacco use Medications at Discharge Home Medications sertraline 100 mg tablet 100 mg PO DAILY mood 11/19/14 pantoprazole 40 mg tablet,delayed release 40 mg PO BID stomache 03/20/21 trazodone 50 mg tablet 100 - 150 mg PO PRN sleep 03/20/21 ipratropium 0.5 mg-albuterol 3 mg (2.5 mg base)/3 mL nebulization soln 3 ml i nhalation Q4H PRN breathing 08/15/21 albuterol sulfate 90 mcg/actuation aerosol inhaler (Ventolin HFA) 2 puff inhalation Q4H PRN PRN Wheezing ##1 02/10/22 ferrous sulfate 325 mg (65 mg iron) tablet (Iron (ferrous sulfate)) 325 mg PO DAILY #90 tabs 11/14/22 Hospital Course Procedures EGD Summary of Care Provided Minutes Spent on Discharge: 40 Hospital Course: 52 M w/ hx of tobacco use, anxiety, and COPD on lung transplant list here 11/12/22 w/ increased weakness and SOB. Was found to have hgb 5.8 and was transfused 2u and started on PPI. GI contacted for presumed GI bleed. EGD on 11/13 with erythematous duodenopathy and small hiatal hernia, colonoscopy with nonbleeding internal hemorrhoids, otherwise unremarkable. Patient received a dose of IV iron and was tolerating diet well. On day of discharge felt a little tired and has intermittently had a headache but no abdominal pain and no blood in stool or any other bleeding. Discussed with GI and it was advised another dose of IV iron and d/c on oral iron and will need outpt capsul endoscopy and GI f/u. Given patient was tired and had a headache order placed for ABG to verify oxygenation and ventilation okay prior to discharge, result obtained seem to be venous or mixed so VBG obtained 2 hours later which showed patient oxygenating and ventilating well. Patient was agreeable to DC and outpatient follow-up. Discharge instructions as follows: -You will be discharged on an iron supplement, it will be important to make sure you do not become constipated, if you do you may need to take an [id number] supplement or contact your primary care physician -You will need to follow-up with Dr. Berg with GI in his office upon discharge. Please call his office to schedule your hospital follow-up appointment (ph. [phone]) -Would recommend lab work (CBC) to check your hemoglobin/blood counts in 2 to 3 days through your primary care physician's office. Please call their office upon discharge to obtain order for lab work. Ultimately you will have your iron studies rechecked by Dr. Berg's office as well -Please call your primary care provider's office upon discharge to schedule a hospital follow up within 1 week. -For any concerning signs or symptoms please call 911 or proceed to the nearest emergency department Physical Exam Narrative General: Alert, oriented, no apparent distress HEENT: Atraumatic, normocephalic Eyes: Anicteric, normal conjunctiva, extraocular movements grossly intact Neck: Supple Respiratory: Scattered wheezing, normal work of breathing Cardiovascular: Regular rate and rhythm GI: Soft, nontender, nondistended Extremities: No edema Musculoskeletal: Moving all extremities Neuro: No overt focal neurological deficits Skin: No rashes appreciated Psych: Cooperative Weight / BMI Weight Weight: 77.9 kg Body Mass Index (BMI) 24.6 ABG / Lab / Microbiology Data 11/14/22 06:04 11/14/22 06:04 Laboratory: Laboratory Results - last 24 hr 11/14/22 06:04: WBC 9.7, RBC 3.41 L, Hgb 7.5 L, Hct 26.7 L, MCV 78.3 L, MCH 22.0 L, MCHC 28.1 L, RDW Std Deviation 57.7 H, RDW Coeff of Maya 20.5 H, Plt Count 451 H, MPV 9.5, Immature Gran % (Auto) 1.500 H, Neut % (Auto) 61.6, Lymph % (Auto) 23.5, [place] % (Auto) 12.5 H, Eos % (Auto) 0.4, Baso % (Auto) 0.5, Absolute Neuts (auto) 6.0, Absolute Lymphs (auto) 2.29, Nucleated RBC % 1.3, Differential Comment SCANNED, Hypochromasia 1+, Anisocytosis 2+, Microcytosis 1+, Macrocytosis 1+, Sodium 140, Potassium 3.8, Chloride 107, Carbon Dioxide 32.0, Anion Gap 1 L, BUN 16, Creatinine 1.06, Estim Creat Clear Calc 84.17, Est GFR (MDRD) Af Amer 94, Est GFR (MDRD) Non-Af 78, BUN/Creatinine Ratio 15.1, Glucose 97, Calcium 8.0 L ABG: ABG 11/14/22 11/14/22 12:42 16:29 Specimen Type ART AG Sample Site R Radial pH 7.35 Bicarbonate Actual 26.2 H Total CO2 28 Base Excess 1 O2 Saturation 72 L ABG pCO2 47.1 H ABG pO2 40 L Nikunj Test N/A VBG pH 7.37 VBG pO2 199 H VBG HCO3 29 H VBG Total CO2 30 VBG O2 Sat (Calc) 100 H VBG Base Excess 4 H POC Mix VBG pCO2 Pt Tmp 49.5 O2 Delivery Device Cannula Cannula Liter Flow 3.0 2.0 D/C Instructions Discharge Diet: Light diet - advance as tolerated Meaningful Use Info Meaningful Use Diagnoses (Choose all that apply): None applicable Discharge Plan Admission Admit Date/Time: 11/12/22 17:35 Primary Reason for Your Visit: Weakness, shortness of breath Attending Provider: Cuca Flood Primary Care Provider: Antwan Buchanan Consulting Providers: Kelton Gutierrez Instructions Patient Instructions: Anemia, Asthma and COPD Additional Instructions / Restrictions: DISCHARGE INSTRUCTIONS PLEASE READ *Please take this with you to your next doctors appointment* -You will be discharged on an iron supplement, it will be important to make sure you do not become constipated, if you do you may need to take an [id number] ter supplement or contact your primary care physician -You will need to follow-up with Dr. Berg with GI in his office upon discharge. Please call his office to schedule your hospital follow-up billy ointment (ph. [phone]) -Would recommend lab work (CBC) to check your hemoglobin/blood counts in 2 to 3 days through your primary care physician's office. Please call their office upon discharge to obtain order for lab work. Ultimately you will have your iron studies rechecked by Dr. Berg's office as well -Please call your primary care provider's office upon discharge to schedule a hospital follow up within 1 week. -For any concerning signs or symptoms please call 911 or proceed to the nearest emergency department Discharge Orders/Prescriptions Prescriptions: New ferrous sulfate [Iron (ferrous sulfate)] 325 mg (65 mg iron) tablet 325 mg PO DAILY Qty: 90 0RF Continued sertraline 100 MG tablet 100 mg PO DAILY Patient Comments: MENTAL HEALTH trazodone 50 mg tablet 100 - 150 mg PO PRN Patient Comments: take 1 to 3 tablets by mouth at bedtime pantoprazole 40 mg tablet,delayed release (DR/EC) 40 mg PO BID Patient Comments: take 1 tablet by mouth twice a day ipratropium-albuterol 0.5 mg-3 mg(2.5 mg base)/3 mL Solution For Nebulization 3 ml INHALATION Q4H PRN (Reason: breathing) albuterol sulfate [Ventolin HFA] 90 mcg/actuation HFA aerosol inhaler 2 puff inhalation Q4H PRN PRN (Reason: Wheezing) Qty: 1 0RF Referrals / Follow Up: Antwan Buchanan DO [Primary Care Provider] - Within 1 Week Adán Berg DO [Med Staff - Active Staff] - ( -You will need to follow-up with Dr. Berg with GI in his office upon discharge. Please call his office to schedule your hospital follow-up appointment (ph. [phone])) Disposition Disposition (needs filled in before D/C Order can be placed): Home, Self Care Charges/Coding Visit Charges Inpatient E&M: 34191 Disch Hosp >30min
[2022-11-14 16:51] VITALS: O2SAT 86; O2SAT 88; O2SAT 89; O2SAT 94
--- NOTE | 2022-11-14 17:17 | NURSING ---
[facility] notified of increased oxygen needs and information faxed.
--- NOTE | 2022-11-14 17:19 | NURSING ---
[facility] notified of increased oxygen needs and information faxed.
--- NOTE | 2022-11-14 17:52 | NURSING ---
Spoke with telecommunication engineer dumpster driver for [facility]. States concentrator that patient has at his home will deliver 5l of oxygen.
--- NOTE | 2022-11-14 18:36 | NURSING ---
[place] oil transport driver called and stated that fax to [facility] did not go through. States [phone] is not the correct fax number. [phone] is the number information needs to be faxed. New prescription, oxygen qualifications and discharge summary faxed to new fax number.
[2022-11-16 16:29] LABS: Vitamin B12 136 pg/mL (211-911)
[2022-11-17 12:52] LABS: Pathologist Review Reviewed
== END 2022-11-14 18:00 | disposition home or self-care (01) | DRG 663 ==
LOC: ED 18:04 → PCU 11-13 07:09
PROVIDERS: Anesthesiology; Internal Medicine Gastroenterology; Admitting Provider Family Medicine; Emergency Provider Emergency Medicine; PCP Student in an Organized Health Care Education/Training Program; Visit Provider Internal Medicine
PROC: 0DJD8ZZ Inspection of Lower Intestinal Tract, Via Natural or Artificial Opening Endoscopic (ICD-10-PCS; CPT 45378; principal; 2022-11-13 08:00)
DX: D62 Acute posthemorrhagic anemia (principal); J44.9 Chronic obstructive pulmonary disease, unspecified; K57.92 Diverticulitis of intestine, part unspecified, without perforation or abscess without bleeding; F32.A Depression, unspecified; D50.9 Iron deficiency anemia, unspecified; K44.9 Diaphragmatic hernia without obstruction or gangrene; F41.9 Anxiety disorder, unspecified; K64.0 First degree hemorrhoids; K57.30 Diverticulosis of large intestine without perforation or abscess without bleeding; R73.9 Hyperglycemia, unspecified; Z79.899 Other long term (current) drug therapy; Z99.81 Dependence on supplemental oxygen; F17.210 Nicotine dependence, cigarettes, uncomplicated; F17.220 Nicotine dependence, chewing tobacco, uncomplicated
CPT/HCPCS: 43239; 45378; 93005; J2916 ×2; 36415; 36430; 36600; 71275; 74174; 80048; 80053; 82607; 82728; 82746; 82784; 82803; 83021; 83516; 83540; 83550; 84484; 85025; 85045; 85610; 85660; 85730; 86255; 86850; 86900; 86901; 86920; 86922; 88305; 94640; 96361; 96365; 96366; 96367; 99221; 99285; J7030; J7050; P9016; Q9967; A4216; G0378; J2405

== ENCOUNTER → 2023-04-29 | Outpatient (CLI) | payer MEDICAID, SELFPAY ==
--- NOTE | 2023-04-29 13:01 | PCM.CR.HP2 ---
CR - History & Physical General Arrival date:: 04/29/23 Medications Ambulatory Orders Medication Instructions Recorded sertraline 100 mg tablet 100 mg PO DAILY mood 11/19/14 pantoprazole 40 mg tablet,delayed 40 mg PO BID stomache 03/20/21 release trazodone 50 mg tablet 100 - 150 mg PO PRN sleep 03/20/21 ipratropium 0.5 mg-albuterol 3 mg 3 ml inhalation Q4H PRN breathing 08/15/21 (2.5 mg base)/3 mL nebulization soln albuterol sulfate 90 mcg/actuation 2 puff inhalation Q4H PRN PRN 02/10/22 aerosol inhaler (Ventolin HFA) Wheezing ##1 ferrous sulfate 325 mg (65 mg 325 mg PO DAILY #90 tabs 11/14/22 iron) tablet (Iron (ferrous sulfate)) Allergies Allergies tramadol HCl [From [facility]] Allergy (Verified 11/12/22 14:41) Swelling codeine Adverse Reaction (Verified 11/12/22 14:41) PT UNSURE OF REACTION Past Medical History Past Medical Illness Medical History Alcohol abuse Anxiety COPD (chronic obstructive pulmonary disease) Depression Exposure to COVID-19 virus History of bacterial pneumonia History of tobacco use Smoker TIA (transient ischemic attack) Ulcer Past Surgical History Surgical History History of chest tube placement History of herniorrhaphy History of tonsillectomy History of tracheostomy Surgical History: tonsillectomy and - (ureteral stent placement, tracheostomy) Family History Summary Family History (Updated 11/12/22 @ 18:[address] Kelton Gutierrez MD) Other Cancer Diabetes Heart disease Hypertension Risk Factor Assessment Obesity Height: 5 ft 10 in For Smoking Smoking Risk Guidelines For Dyslipidemia Dyslipidemia Risk Guidelines For Diabetes Mellitus Diabetes Risk Guidelines For Obesity/Overweight Obesity/Overweight Risk Guidelines For Hypertension Hypertension Risk Guidelines For Sedentary Lifestyle Sedentary Lifestyle Risk Guidelines For Depression Depression Risk Guidelines Family History Family History (Updated 11/12/22 @ 18:[address] Kelton Gutierrez MD) Other Cancer Diabetes Heart disease Hypertension
--- NOTE | 2023-04-29 13:05 | PCM.PR.HP ---
History of Present Illness General Arrival date:: 04/29/23 Arrival time:: 13:05 Date of Referral:: 03/01/23 Date of Evaluation: 04/29/23 Referring Physician: Dr. Abby Block Primary Diagnosis: COPD GOLD IV VERY SEVERE History of Present Pulmonary Event [facility] Breathless Scale: When is the patient short of breath? Y/N Grade: Description of Breathlessness: 0 I only get breathless with strenuous exercise. 1 I get short of breath when hurrying on level ground or walking up a slight hill. 2 On level ground, I walk slower than people of the same age because of breathless, or have to stop for breath when walking at my own pace. 3 I stop for breath after walking 100 yards or after a few minutes on level ground. 4 I am too breathless to leave the house or I am breathless when dressing. Medications Home Medications sertraline 100 mg tablet 100 mg PO DAILY mood 11/19/14 pantoprazole 40 mg tablet,delayed release 40 mg PO BID stomache 03/20/21 trazodone 50 mg tablet 100 - 150 mg PO PRN sleep 03/20/21 ipratropium 0.5 mg-albuterol 3 mg (2.5 mg base)/3 mL nebulization soln 3 ml inhalation Q4H PRN breathing 08/15/21 albuterol sulfate 90 mcg/actuation aerosol inhaler (Ventolin HFA) 2 puff inhalation Q4H PRN PRN Wheezing ##1 02/10/22 ferrous sulfate 325 mg (65 mg iron) tablet (Iron (ferrous sulfate)) 325 mg PO DAILY #90 tabs 11/14/22 Allergies Allergies tramadol HCl [From [facility]] Allergy (Verified 11/12/22 14:41) Swelling codeine Adverse Reaction (Verified 11/12/22 14:41) PT UNSURE OF REACTION Sleep Disorder Evaluation Hx of Sleep Apnea: No Do you snore loudly (louder than talking or can be heard through closed doors)?: No Do you often feel tired/ fatigued/ sleepy during daytime?: No Has anyone observed you stop breathing during sleep?: No History of Hypertension (for STOP score): No STOP Results: Negative Medical Utilization Medical Devices Do you use a spacer device with your inhalers?: No Medical Utilization Number of hospital visits in the last year?: 2 Number of emergency room visits in the last year?: 3 Do you see your physician on a regular schedule?: Yes How often?: Every 3 months Advanced Directives Advanced Directives Power of Economic Forecaster: Yes Living Will: No Advance Directives Information Provided: No Advance Directives on File: No DNR Order?:: No Past Medical History Covid-19 Screening Physicial Symptoms Other Clinical Concerns Exposure Risk Pertinent Comorbidities Has a chronic lung disease or moderate to severe asthma:: Yes Medical History Medical History Alcohol abuse Anxiety COPD (chronic obstructive pulmonary disease) Depression Exposure to COVID-19 virus History of bacterial pneumonia History of tobacco use Smoker TIA (transient ischemic attack) Ulcer Surgical History Surgical History History of chest tube placement History of herniorrhaphy History of tonsillectomy History of tracheostomy Significant Family History Family History (Updated 11/12/22 @ 18:[address] Kelton Gutierrez MD) Other Cancer Diabetes Heart disease Hypertension Social History Smoking History Smoking Status: Former smoker Years Smokin Packs Smoked per Day: 1.5 (stopped 1.5-2 years ago) Alcohol Use Alcohol Usage: Yes Occupation Occupation (List type of work in comments):: Unemployed Hobbies, Recreation, Social Activities Hobbies: Other (motocycle, writes) Recreational Activities: I am able to engage in most, but not all activities Functioning ADL/IADL Current Ability Current Ability: Independent: Self-Care (e.g.,grooming, dressing, & bathing), Independent: Ambulation, Independent: Transfer and Independent: Household tasks (e.g., light meal prep, laundry, shopping) Pt Functioning Prior to Problem Prior Functioning: Self-Care (e.g.,grooming, dressing, & bathing): Independent, Ambulation: Independent, Transfer: Independent and Household tasks (e.g., light meal prep, laundry, shopping): Independent Social Environment Status Marital Status: Single Current Living Arrangements Living Environment:: Alone Children How many children do you have?: 3 Do any of your children live nearby?: Yes Safety Do you feel safe in your surroundings?: Yes Assistance Do you need any assistance at home?: no Review of Systems Review of Systems Review of Systems Respiratory: Reports Cough, Hemoptysis, Pleuritic Pain, SOB at Rest, SOB upon Exertion, Sputum production, Wheezing, Appetite, Normal, Dizziness/Lightheadedness, Fatigue and Sleep, Normal; Denies PVD or Sexual changes Pain Is Patient Pain Free?: No Pain Location: back Pain Level: 210 Risk Factor Assessment Chief Complaint Chief Complaint: COPD IV VERY SEVERE Vital Signs Pulse Rate: 109 Pulse Ox: 94 Blood Pressure: 120/86 Obesity Height: 5 ft 10 in Weight:: 154 lb Weight in Pounds: 154.0 lbs Body Mass Index (BMI): 22.1 Nutritional Referral for Obesity: No Physical Activity Physical Inactivity: Recreational activity Risk Stratification Risk Guidelines: Moderate Risk: Risk Factor for Smoking, Risk Factor for Diabetes, Risk Factor for Obesity, Risk Factor for Hypertension, Risk Factor for Sedentary Lifestyle and Risk Factor for Depression and Highest Risk: Risk Factor for Dyslipidemia For Smoking Smoking Risk Guidelines For Dyslipidemia Dyslipidemia Risk Guidelines For Diabetes Mellitus Diabetes Risk Guidelines For Obesity/Overweight Obesity/Overweight Risk Guidelines For Hypertension Hypertension Risk Guidelines For Sedentary Lifestyle Sedentary Lifestyle Risk Guidelines For Depression Depression Risk Guidelines Motivation Motivation to Participate On a scale of 1 to 10, how prepared are you to commit to attending program?: 9 What do you see as barriers to successfully being able to complete the program?: breathing What do you see as the benefits of succesfully completing the program? In other words, what do you hope to get out of participating in the program?: new lungs, more stamina Are there issues you are dealing with that will interfere with completing the program?: no Do you have a spouse or signficant other, family or friends who will help support you to complete the program?: yes Diagnostic Data Review Pulmonary Function Test FEV1:: 31 FVC:: 92 FEV1/FVC%:: 34 Gold Classification: Gold class IV(very severe COPD)with FEV1/FVC <70, FEV1 <30% predicted
--- NOTE | 2023-04-29 13:16 | PR.ITP_ITS ---
General Information2 General Information Admitting Diagnosis: COPD VERY SEVERE IV Gold Classification:: GOLD 4: Very Severe PFT FEV1:: 31 FVC:: 92 FEV1/FVC%:: 34 Personal Learning Style/Barriers Personal Learning Style:: Audio/Visual Barriers to Learning: None Stage of change r/t lifestyle modifications: Contemplation Education/Goals AL Patient Goals: Increase muscle strength: Initial Assessment, Experience less dyspnea: Initial Assessment, Improve energy level: Initial Assessment, Improve the ability to cope with ADLs: Initial Assessment, Increase knowledge of oxygen use: Initial Assessment, Improve diet and nutrition: Initial Assessment and Reduce Stress/relaxation techniques: Initial Assessment Exercise - Initial Assessment Visit Date of Eval: 04/29/23 (initial eval ) Problem/Goals Problems: Deconditioning, No regular exercise, Knowledge deficit exercise guidelines and Knowledge deficit exercise safety Goals:: AL: 2-3/wk for 18 weeks [36 sessions] Physician Prescribed Exercise Modalities: Treadmill, Rower, Airdyne, NuStep, SciFit and Lateral Tooler Frequency (days/week): 3 Duration (Minutes):: 30-45 Intensity: 60-80% of age predicted maximum heart rate reserve Current METSs:: 2.0 Target HR:: 118 Resting Blood Pressure: 120/86 Minimum SpO2 with exercise: 94 EKG Type: ST Plan Plan and Plan to Review:: Benefits of exercise, Core components of exercise, How to measure dyspnea level, How to monitor dyspnea level, Exercise intensity, Exercise safety guideline, Home exercise guidelines and [place]: 3-4/11-13 Home Exercise Mode: Walking Nutrition/Wt Mgmt - Initial Visit Date of Eval: 04/29/23 (initial eval ) Weight Management Admit Height:: 5 ft 10 in Admit Weight:: 154 lb Admit BMI:: 22.1 Intervention Referral to dietitian:: No Will attend diet classes:: Yes Intervention/Plan: Instruct on ideal BMI & set weight loss goal w/patient, Assist pt to ID & incorporate diet changes for weight loss by S9, Refer to Structured Weight Loss program as appropriate, Encourage goal of using 250- 300dcal per session for weight loss and Other additional plan/interventions Plan Nutrition Plan: Yes: Review BMI or WC & identify target wt & strategies for wt control, Yes: Nutrition education class:, Yes: Medication education class [Prednisone]:, Yes: Weight control education class:, Yes: Education re: Need for ongoing weight monitoring, Yes: Food diary: and Yes: Physical activity log: Nutrition/Wt Mgmt - 30-Day Weight Management Height: 5 ft 10 in Weight:: 154 lb BMI: 22.1 Nutrition/Wt Mgmt - 60-Day Weight Management Height: 5 ft 10 in Weight:: 154 lb BMI: 22.1 Nutrition/Wt Mgmt - 90-Day Weight Management Height: 5 ft 10 in Weight:: 154 lb BMI: 22.1 Nutrition/Wt Mgmt - Final Weight Management Height: 5 ft 10 in Weight:: 154 lb BMI: 22.1 Psychosocial - Initial Assess Visit Date of Eval: 04/29/23 (initial eval ) Referral to Behavioral Health PS - Interventions: No: Referral to Behavioral Health if PHQ-9 score >9: Intervention/Plan: See List Interventions/Plan:: Assess stressors,coping strategies & signs of derpression on admission, Instruct/assist pt to develop coping & personal stress Mgt strategies, Refer to Behavioral Health if appropriate, Refer to Physician if appropriate, Instruct patient to recognize signs & symptoms of depression, Instruct patient to recog and Other additional plan/intervention Psychosocial - 30-Day Referral to Behavioral Health PS - Interventions: No: Referral to Behavioral Health if PHQ-9 score >9: Plan Interventions/Plan:: Assess stressors,coping strategies & signs of derpression on admission, Instruct/assist pt to develop coping & personal stress Mgt strategies, Refer to Behavioral Health if appropriate, Refer to Physician if appropriate, Instruct patient to recognize signs & symptoms of depression, Instruct patient to recog and Other additional plan/intervention Psychosocial - 60-Day Referral to Behavioral Health PS - Interventions: No: Referral to Behavioral Health if PHQ-9 score >9: Plan Interventions/Plan:: Assess stressors,coping strategies & signs of derpression on admission, Instruct/assist pt to develop coping & personal stress Mgt strategies, Refer to Behavioral Health if appropriate, Refer to Physician if appropriate, Instruct patient to recognize signs & symptoms of depression, Instruct patient to recog and Other additional plan/intervention Psychosocial - 90-Day Referral to Behavioral Health PS - Interventions: No: Referral to Behavioral Health if PHQ-9 score >9: Plan Interventions/Plan:: Assess stressors,coping strategies & signs of derpression on admission, Instruct/assist pt to develop coping & personal stress Mgt strategies, Refer to Behavioral Health if appropriate, Refer to Physician if appropriate, Instruct patient to recognize signs & symptoms of depression, Instruct patient to recog and Other additional plan/intervention Psychosocial - Final Assess Referral to Behavioral Health PS - Interventions: No: Referral to Behavioral Health if PHQ-9 score >9: Plan Interventions/Plan:: Assess stressors,coping strategies & signs of derpression on admission, Instruct/assist pt to develop coping & personal stress Mgt strategies, Refer to Behavioral Health if appropriate, Refer to Physician if appropriate, Instruct patient to recognize signs & symptoms of depression, Instruct patient to recog and Other additional plan/intervention Oxygen & Oxygen Titration Init Visit Date of Eval: 04/29/23 (initial eval ) Initial Assessment Oxygen on Admission: Continuous home use SpO2:: 94 Patient Reports:: Prod cough daily <1 Tbsp and Hospitalized in the past 12 months [list how many times] (2 times) Goal Oxygen & Oxygen Tritration Goals: Effective hypoxemia control and Uses O2 as Rx'd/safely Plans Plan: Monitor SpO2 rest & with exercise, Recommend appropriate FiO2 to Pt/MD, Assist to contact DME for O2, Train appropriate O2 use at rest, Train appro priate O2 use with exercise and Train O2 safety & systems Instruct correct technique/timing & care:: MDI, DPI, Nebulizer and Return demo use of inhaler Oxygen & Oxygen Titration 30D Reassessment SpO2:: 94 Oxygen & Oxygen Titration 60D Reassessment SpO2:: 94 Oxygen & Oxygen Titration 90D Reassessment SpO2:: 94 Oxygen & Oxygen Titration AMAURY Reassessment SpO2:: 94 Core Components - Initial Visit Date of Eval: 04/29/23 (initial eval ) Hypertension BP: 120/86 [place] [employer] Hypertension Guidelines Tobacco - Initial Assessment Tobacco Program Goals Stages of Change:: Contemplate Do you have family support?: Yes Tobacco Use: Non-smoker How long ago did you quit using tobacco products?: Greater than or equal to 6 months ago Years Smokin Do you use smokeless tobacco?: No Smoking Cessation Referral:: No Individual Education/Counseling:: No Education Schedule Given:: Yes Gave Education Materials For:: Tobacco Triggers, Pulmonary Disease, Risk Factors, Breathing Techniques, Medical Compliance, Pulmonary A&P, Exacerbation Signs & Symptoms and Stress & Relaxation Exacerbation Mgmt & Airway Clearance Patient Reports:: Prod cough daily <1 Tbsp and Hospitalized in the past 12 months [list how many times] (2 times) Plan: Monitor SpO2 rest & with exercise, Recommend appropriate FiO2 to Pt/MD, Assist to contact DME for O2, Train appropriate O2 use at rest, Train appropriate O2 use with exercise and Train O2 safety & systems Instruct correct technique/timing & care:: MDI, DPI, Nebulizer and Return demo use of inhaler Medication Does pt report taking home meds as prescribed?: Yes Diabetes Diabetes:: No Referral to dietitian:: No Will attend diet classes:: Yes Core Components - 30 DAYS Hypertension Resting Blood Pressure:: 120/86 [place] [employer] Hypertension Guidelines Tobacco - 30-Day Tobacco Program Goals Stages of Change:: Contemplate Do you have family support?: Yes Tobacco Use: Non-smoker Do you use smokeless tobacco?: No Smoking Cessation Referral:: No Education Schedule Given:: Yes Gave Education Materials For:: Tobacco Triggers, Pulmonary Disease, Risk Factors, Breathing Techniques, Medical Compliance, Pulmonary A&P, Exacerbation Signs & Symptoms and Stress & Relaxation Diabetes Diabetes:: No Core Components - 60 DAYS Hypertension Resting Blood Pressure:: 120/86 [place] [employer] Hypertension Guidelines Tobacco - 60-Day Tobacco Program Goals Stages of Change:: Contemplate Do you have family support?: Yes Tobacco Use: Non-smoker Do you use smokeless tobacco?: No Smoking Cessation Referral:: No Individual Education/Counseling:: No Education Schedule Given:: Yes Gave Education Materials For:: Tobacco Triggers, Pulmonary Disease, Risk Factors, Breathing Techniques, Medical Compliance, Pulmonary A&P, Exacerbation Signs & Symptoms and Stress & Relaxation Diabetes Diabetes:: No Core Components - 90 DAYS Hypertension Resting Blood Pressure:: 120/86 [place] [employer] Hypertension Guidelines Tobacco - 90-Day Tobacco Program Goals Stages of Change:: Contemplate Do you have family support?: Yes Tobacco Use: Non-smoker Do you use smokeless tobacco?: No Smoking Cessation Referral:: No Individual Education/Counseling:: No Education Schedule Given:: Yes Gave Education Materials For:: Tobacco Triggers, Pulmonary Disease, Risk Factors, Breathing Techniques, Medical Compliance, Pulmonary A&P, Exacerbation Signs & Symptoms and Stress & Relaxation Diabetes Diabetes:: No Core Components - Final Hypertension Resting Blood Pressure:: 120/86 [place] [employer] Hypertension Guidelines Tobacco - Final Tobacco Program Goals Stages of Change:: Contemplate Do you have family support?: Yes Tobacco Use: Non-smoker Do you use smokeless tobacco?: No Smoking Cessation Referral:: No Individual Education/Counseling:: No Education Schedule Given:: Yes Diabetes Diabetes:: No Patient Health Questionnaire PHQ-9 Screening Initial Assessment: 1. Little interest or pleasure in doing things: Not at all 2. Feeling down, depressed, or hopeless: Several days 3. Trouble falling or staying asleep, or sleeping too much: More than half the days 4. Feeling tired or having little energy: Not at all 5. Poor appetite or overeating: Not at all 6. Feeling bad about yourself -- or that you are a failure or have let yourself or your family down: Not at all 7. Trouble concentrating on things, such as reading the newspaper or watching television: Not at all 8. Moving or speaking so slowly that other people could have noticed. Or the opposite - being so fidgety or restless that you have been moving around a lot more than usual: Not at all 9. Thoughts that you would be better off , or of hurting yourself in some way: Not at all How difficult have these problems made it for you to do your work, take care of things at home, or get along with other people?: Not difficult at all Total Score: 3 Knowledge Questionaire (BCKQ) Information Information: [place] COPD Knowledge Questionnaire (BCKQ) This questionnaire is designed to find out what you know about your lung problem. It should be completed without help form anyone else. This usually takes between 10 and 20 minutes. Your answers will help us to find out what information you need to help you to understand and manage your lung condition. Miguel the torres martinez which you think is the correct answer. Questions 1. In COPD: a. In COPD the word chronic means it is severe: True b. COPD can only be confirmed by breathing tests: True c. In COPD ther is usually gradual worsening over time: True d. In COPD oxygen levels in the blood are always low: False e. COPD is usually in people less than 40 years old: Don't know 2. COPD: Kisha than 80% of COPD cases are caused by cigarette smoking: True b. COPD can be caused by occupational dust exposure: True c. Longstanding asthma can develop into COPD: Don't know d. COPD is commonly an inherited disease: Don't know e. Women are less vunerable to the effects of cigarette than men: Don't know 3. The following symptoms are Common in COPD: a. Swelling of the ankles is common in COPD:: Don't know b. Fatigue [tiredness] is common in COPD: True c. Wheezing is common in COPD: True d. Crushing chest pain is common in COPD: True e. Rapid weight loss is common in COPD: Don't know 4. Breathlessness in COPD: a. Severe breathlessness prevents travel by air: Don't know b. Breathlessness can be worsened by eating large meals: True c. Breathlessness means that your oxygen levels are low: True d. Breathlessness is a normal response to exercise: True e. Breathlessness is primarily caused by a narrowing of the bronchial tubes: True 5. Phlegm (sputum): a. Coughing phlegm is a common symptom in COPD: True b. Clearing phlegm is more difficult if you get dehydrated: Don't know c. Bronchodilator inhalers can help clear phlegm: False d. Phlegm causes harm if swallowed: Don't know e. Clearing phlegm can be assisted by breathing exercises: Don't know 6. Chest infections / exacerbations: a. Chest infections often cause coughing of blood: True b. Chest infection phlegm usually becomes coloured (ylw/grn): True cExerbations (episodes of worsening) can occur in the absence of chest infection: False d. Chest infections are always accompanied by a high temperature: False e. Steroid tablets should be taken whenever there is an exacerbation: Don't know 7. Excercise in COPD: aWalking excercises better than breathing to improve fitness: True b. Exercise should be avoided as it strains the lungs: False c. Exercise can help maintain your bone density: Don't know d. Exercise helps relieve depression: Don't know e. Exercise should be stopped if it makes you breathless: True 8. Smoking: a. Stopping smoking will reduce the risk of heart disease: True b. Stopping smoking will slow down further lung damage: True c. Stopping smoking is pointless as the damage is done: False d.Stopping smoking usually results in improved lung function: True eNicotine replacement therapy only available on prescription: True 9. Vaccination: a. A flu jab is recommended every year: True b. You can get flu from having a flu jab: False c. You can only have a flu jab if you are 65 or over: False d. A pneumonia jab protects against all forms of pneumonia: Don't know e.You can have a pneumonia jab and a flu job on the same day: Don't know 10. Inhaled bronchodilators: a. Bronchodilators act quickly (within 10 minutes): True b. Both short & long acting bronchodilators can be taken on the same day: Don't know c. Spacers (volumatic,nebuhaler,serochamber)should be dried w/atowel after washing: True d. A spacer device increases the medication to the lungs: True e. Tremor may be a side effect of bronchodilators: Don't know 11. Antibiotic treatment in COPD: a. To be effective, the course should last at least 10 days: Don't know b. Excessive use of antibiotics can cause resistant bacteria (germs): True c. Antibiotics will clear all chest infections: True d. Antibiotic treatment is necessary for an exacerbation (worsening) however mild: False e. Seek advice if antibiotics cause severe diarrhoea: True 12. Steroid tablets given for COPD (eg Prednisolone): a. Steroid tablets help strengthen muscles: False b. Steroid tablets should be avoided if there is a chest infection: Don't know c. The risk of long-term side effects due to steroids is less w/short courses then w/continous treatment: True dIndigestion is common side effect from using steroid tablet: Don't know e. Steroid tablets can increase your appetite: Don't know 13. Inhaled steroids (brown, red or orange): a. Inhaled steroids should be stopped if you are given steroid tablets: False bSteroid inhalers can be used for rapid relief breathlessnes: True c. Spacer devices reduce the risk of getting thrush in the mouth: True d.Steroid inhaler should be taken before your bronchodilator: Don't know e. Inhaled steroids improve lung function in COPD: True COPD Knowledge Test Total Score:: 29 COPD Assessment Test [CAT] Questions Never cough = 0, Cough all the time = 5: 3 No phlegm = 0, Chest full of phlegm = 5: 2 No chest tightness = 0, Chest very tight = 5: 3 No breathless w/exertion = 0, Very breathless w/exertion = 5: 4 No limitations w/activity = 0, Very limited w/activity = 5: 3 Confident leaving home = 0, Not at all confident = 5: 1 Sleep soundly = 0, Don't sleep soundly = 5: 1 Lots of energy = 0, No energy at all = 5: 4 Total CAT score:: 21 Self-Efficacy 6-Item Scale Initial Assessment: We would like to know how confident you are in doing certain activities. Please select your confidence level for: Fatigue Select Number: 7 Physical Discomfort or Pain Select Number: 4 Emotional Distress Select Number: 7 Other Symptoms or Health Problems Select Number: 8 Different Tasks and Activities Select Number: 4 Medication Select Number: 3 Total Score:: 5 Nutrition Survey Nutrition Survey Instructions Scoring Instructions Nutrition Survey Initial: Have you lost >10 lbs over the past 2 months without trying?: No Are you following a special diet at home for diabetes, low fat, or low salt?: No Are you interested in meeting with a dietitian for help understanding your diet?: Yes Do you eat less than 3 meals a day?: Yes Do you eat fatty meats (manriquez, sausage, ribs, etc), fried foods, desserts, large amounts of salad dressings, margarine, butter, or cheese most days?: Yes Do you have food allergies? [Enter types in comment field]: Yes Do you eat in restaurants more than 3 times a week?: No Do you season food with salt, seasoning salt, or garlic salt?: Yes Do you used canned, boxed, frozen meals, or soups, seasoning packets?: Yes Total Score:: 6
[2023-04-29 13:26] VITALS: BP 120/86; PULSE 109; O2SAT 94
[2023-04-29 14:10] VITALS: BP 120/86; O2SAT 94; BMI 22.1
[2023-04-29 14:12] VITALS: BMI 22.1
== END | disposition home or self-care (01) ==
LOC: PR 12:53
PROVIDERS: PCP Student in an Organized Health Care Education/Training Program
DX: J44.9 Chronic obstructive pulmonary disease, unspecified (principal); Z86.73 Personal history of transient ischemic attack (TIA), and cerebral infarction without residual deficits; F32.A Depression, unspecified; F41.9 Anxiety disorder, unspecified; Z79.899 Other long term (current) drug therapy; Z87.891 Personal history of nicotine dependence

== ENCOUNTER 2023-05-13 07:22 | Outpatient (RCR) | payer MEDICAID, SELFPAY ==
[2023-04-29 14:10] VITALS: BMI 22.1
== END 2023-06-12 23:59 ==
LOC: PR 07:22
PROVIDERS: PCP Student in an Organized Health Care Education/Training Program
DX: J44.9 Chronic obstructive pulmonary disease, unspecified (principal)
CPT/HCPCS: 97150; 94626

== ENCOUNTER 2024-03-13 22:20 | Inpatient (IN) | payer MEDICAID, SELFPAY ==
[2023-04-29 14:10] VITALS: BMI 22.1
[2024-03-13] VITALS (11 sets, daily range): BP systolic 124–173; BP diastolic 78–146; PULSE 112–131; RESP 12–27; TEMP 36.3–36.6; O2SAT 93–100; BMI 23.2
[2024-03-13 22:41] LABS: Absolute Lymphocyte Count 3.65 X10^3/uL (0.83-4.51); Absolute Neutrophil Count 9.5 X10^3/uL (2.0-7.7); Basophil# 0.06 X10^3/uL; Basophil% 0.4 % (0-1); Eosinophil# 0.19 X10^3/uL; Eosinophils% 1.3 % (0-5); Hematocrit 31.1 % (40-54); Hemoglobin 8.6 g/dL (13.0-16.5); Lymphocyte # 3.65 X10^3/ul (0.83-4.51); Lymphocyte % 24.8 % (19-41); Mean Corp Hgb Conc 27.7 g/dL (32-36); Mean Corpuscular Hgb 19.9 pg (27.0-32.0); Mean Platelet Vol. 9.5 fl (6.2-12.0); Monocyte# 1.26 X10^3/uL; Monocyte% 8.6 % (0-10); NRBC Flagged by Analyzer 0 % (0-5); Neutrophil # 9.46 X10^3/uL (2.7-7.7); Neutrophil % 64.2 % (47-70); Platelet Count 627 K/mm3 (150-450); RBC Distribution Width CV 17.2 % (11.6-14.6); RBC Distribution Width SD 44.5 fl (35.1-43.9); Red Blood Count 4.32 M/mm3 (4.6-6.2); White Blood Count 14.7 K/mm3 (4.4-11.0)
[2024-03-13 22:48] LABS: Allen Test Positive; Base Excess 1 mmol/L (-2 to +2); Bicarbonate 26.2 mmol/L (22-26); Blood Gas Specimen Type ART; Mode Not entered; O2 Delivery Device BiPAP; PO2 98 mmHG (75-100); RR 12; SITE R Radial; SO2 97 % (95-99); Total Carbon Dioxide 28 mmol/L; pH 7.37 (7.35-7.45)
[2024-03-13 22:54] LABS: Anion Gap 6 (5-15); BUN 11 mg/dL (7-18); BUN/Creat Ratio 10.6 RATIO (10-20); Calcium,Total 9.4 mg/dL (8.5-10.1); Chloride 105 mmol/L (98-107); Creatinine, Serum 1.04 mg/dL (0.70-1.30); EST Glomerular Filtration Rate 79 mL/min (>60); Est Glom Filt Rate - Afr Amer 96 mL/min (>60); Estimated Creatinine Clearance 84.82 ml/min; Glucose 144 mg/dL (74-106); Magnesium 1.9 mg/dL (1.6-2.6); Potassium 4.5 mmol/L (3.5-5.1); Sodium Level 139 mmol/L (136-145)
--- NOTE | 2024-03-13 22:55 | RAD_ITS ---
STUDY: X-RAY CHEST REASON FOR EXAM: Male, 53 years old. dyspnea TECHNIQUE: Single AP portable view of the chest. COMPARISON: 10/19/2022 FINDINGS: There is hyperinflation of the lungs consistent with chronic obstructive lung disease (COPD). Small alveolar opacity in the mid right lung worrisome for pneumonia. There is no demonstrated pleural abnormality. Normal size heart. Normal mediastinum and catherine. Normal visualized pulmonary arteries. Normal visualized aortic arch and descending thoracic aorta. Normal visualized thoracic spine. Normal visualized ribs, clavicles, and shoulders. There is no demonstrated abnormality of the visualized soft tissue structures of the upper abdomen. RAD/Chest 1 View (Portable) IMPRESSION: Emphysema with possible right upper lobe pneumonia. CT may be useful. Electronically Signed: Deshawn Mcintosh MD at 23:10 [facility] ,
[2024-03-13 23:07] LABS: Procalcitonin 0.12 ng/mL (0.00-0.09)
--- NOTE | 2024-03-13 23:09 | ED.RN ---
Critical Lactic Acid of 2.1. Dr. Bustos notified
[2024-03-13 23:10] LABS: Lactic Acid 2.1 mmol/L (0.4-1.9)
[2024-03-13] MEDS: 0.9% Normal Saline (1000mL) 1,000 ML 999 ML IV (23:17)
[2024-03-13 23:18] LABS: Ferritin 7 ng/mL (26-388); Iron 15 ug/dL (65-175); Iron Binding Capacity,Total 479 ug/dL (250-450); PERCENT IRON SATURATION 3.1 % (15.0-55.0)
--- NOTE | 2024-03-13 23:23 | CT_ITS ---
EXAM: CT ANGIOGRAPHY CHEST WITHOUT AND WITH INTRAVENOUS CONTRAST CLINICAL INDICATION: hypoxia TECHNIQUE: Helically acquired angiography images were obtained of the chest without and with intravenous contrast. This CT exam was performed using one or more of the following dose reduction techniques: automated exposure control, adjustment of the mA and/or kV according to patient size, and/or use of iterative reconstruction technique. MIP reconstructed images were created and reviewed. CONTRAST: 100 cc of Isovue-370 IV. RADIATION DOSE: CTDIvol = 11.76 mGy, DLP = 399.05 mGy-cm COMPARISON: 11/12/2022. FINDINGS: PULMONARY ARTERIES: Unremarkable. Normal in caliber. No evidence of pulmonary embolism. AORTA: Unremarkable. Normal in caliber. No evidence of dissection. GREAT VESSELS OF AORTIC ARCH: Unremarkable. Normal in caliber. No evidence of dissection. LUNGS AND PLEURAL SPACES: Severe panlobular emphysema. Extensive mucous plugging in the lower lobe bronchi bilaterally. Extensive tubular bronchiectasis in the lower lobes bilaterally. Subsegmental atelectasis in the lung bases bilaterally. No mass. No pleural effusion or thickening. No pneumothorax. HEART: Unremarkable. Heart size is normal. No pericardial effusion. No significant coronary artery calcifications. MEDIASTINUM: Unremarkable. No mediastinal or hilar adenopathy. Esophagus is unremarkable. No hiatal hernia. THYROID: Unremarkable. No thyroid lesions. BONES/JOINTS: Unremarkable. No suspicious lytic or blastic abnormality. CT/CTA Chest W/WO Contrast IMPRESSION: 1. No pulmonary embolism or aortic dissection. 2. Extensive mucous plugging in the lower lobe bronchi bilaterally. 3. Severe panlobular emphysema. 4. Extensive tubular bronchiectasis in the lower lobes bilaterally. 5. Subsegmental atelectasis in the lung bases bilaterally. Electronically Signed: Giovanni Son MD at 1:19 EST ,
[2024-03-14] VITALS (41 sets, daily range): BP systolic 82–140; BP diastolic 53–94; PULSE 85–118; RESP 12–32; TEMP 36.6–37.1; O2SAT 90–100; BMI 22.1
[2024-03-14] MEDS: Ceftriaxone 1 GM/50 ML BAG IV (00:09)
[2024-03-14] MEDS: Azithromycin 500 MG in 0.9% Normal Saline (250mL Bag) 250 ML 250 MG IV (00:50)
[2024-03-14 00:57] LABS: Platelet Count 547 K/mm3 (150-450); RET-HE 16.7 pg (30-35); Reticulocyte Count 1.64 % (0.5-1.5)
--- NOTE | 2024-03-14 01:47 | EX.ED.DYSGE1 ---
HPI History of Present Illness Chief Complaint: Shortness of Breath Informant: patient, family and EMS Narrative Narrative: Patient is a 53-year-old male with past medical history of COPD who wears chronic nasal cannula oxygen. Roughly 10 years ago he had bilateral pneumonia requiring intubation and then subsequently developed subcutaneous emphysema requiring tracheostomy. Patient states that over the last few days has been having increasing cough and shortness of breath. He denies any fevers chills or known sick contacts. Secondary to his worsening shortness of breath EMS was called. EMS states when they arrived the patient was showing visible work of breathing and his pulse ox was approximately 75% on his home oxygen. Secondary to this they placed him on CPAP and gave him 2 DuoNeb treatments and steroids and upon arrival the patient does report feeling better and his pulse ox has improved. [facility] Medical History Chronic hypoxic respiratory failure History and physical examination, immigration Exposure to COVID-19 virus Alcohol abuse Ulcer Smoker TIA (transient ischemic attack) History of bacterial pneumonia Depression Anxiety COPD (chronic obstructive pulmonary disease) History of tobacco use Home Medications ?Medication ?Instructions ?Recorded ?Last Taken ?Type sertraline 100 mg tablet 100 mg PO DAILY mood 11/19/14 10/19/22 10:00 History pantoprazole 40 mg tablet,delayed 40 mg PO BID stomache 03/20/21 10/19/22 10:00 History release trazodone 50 mg tablet 100 - 150 mg PO PRN sleep 03/20/21 03/18/21 History ipratropium 0.5 mg-albuterol 3 mg 3 ml inhalation Q4H PRN breathing 08/15/21 10/19/22 10:00 History (2.5 mg base)/3 mL nebulization soln albuterol sulfate 90 mcg/actuation 2 puff inhalation Q4H PRN PRN 02/10/22 10/19/22 10:00 Rx aerosol inhaler (Ventolin HFA) Wheezing ##1 ferrous sulfate 325 mg (65 mg 325 mg PO DAILY #90 tabs 11/14/22 Unknown Rx iron) tablet (Iron (ferrous sulfate)) fluticasone propionate 230 2 puff inhalation BID 03/13/24 Unknown History mcg-salmeterol 21 mcg/actuation HFA inhaler (Advair HFA) tiotropium bromide 2.5 2 puff inhalation DAILY 03/13/24 Unknown History mcg/actuation mist for inhalation (Spiriva Respimat) Allergy/AdvReac Type Severity Reaction Status Date / Time tramadol HCl (From Ultra) Allergy Swelling Verified 03/13/24 22:21 codeine AdvReac PT UNSURE Verified 03/13/24 22:21 OF REACTION Family History Other Cancer Diabetes Heart disease Hypertension Surgical History History of herniorrhaphy History of tonsillectomy History of chest tube placement History of tracheostomy Social History (Updated 03/14/24 @ 02:[address] Joie Lopez DO) household members: none Smoking Status: Former smoker how long ago did patient quit smoking: Patient quit smoking 2 years ago alcohol intake: current alcohol intake frequency: holidays/special occasions only substance use type: does not use ROS ROS ED Constitutional Constitutional ED: Denies chills or fever(s) Eyes Eyes: Denies change in vision ENT ENT ED: Denies sore throat Cardiovascular Cardiovascular: Reports racing heartbeat; Denies chest pain or palpitations Respiratory/Chest Respiratory/Chest: Reports cough and dyspnea Gastrointestinal Gastrointestinal: Denies abdominal pain, diarrhea, nausea or vomiting Genitourinary Genitourinary ED: Denies dysuria Musculoskeletal Musculoskeletal: Reports back pain Integumentary Denies rash Neurologic Neurologic: Denies headache(s) Hematologic/Lymphatic Hematologic/Lymphatic: Denies easy bleeding or easy bruising Allergic/Immunologic Allergic/Immunologic ED: Denies mouth swelling or tongue swelling EXAM Physical Exam Const Vital Signs: 03/13/24 22:20 03/13/24 22:20 03/13/24 22:25 Temperature 97.4 F L 97.4 F L Temperature Source Temporal Temporal Pulse Rate 122 H 121 H Respiratory Rate 20 H 22 H Respiratory Effort Short of Breath Labored Respiratory Depth Shallow Respiratory Pattern Tachypnea Blood Pressure 158/92 H 158/92 H Blood Pressure Mean 114 114 Pulse Ox 100 100 Oxygen Delivery Method Bi-pap Bi-pap Bi-pap Fraction of Inspired Oxygen (FIO2) 60 60 60 03/13/24 22:25 03/13/24 22:25 03/13/24 22:29 Temperature Temperature Source Pulse Rate 122 H 131 H Respiratory Rate 24 H 23 H Respiratory Effort Respiratory Depth Respiratory Pattern Tachypnea Blood Pressure Blood Pressure Mean Pulse Ox 100 100 100 Oxygen Delivery Method Bi-pap Fraction of Inspired Oxygen (FIO2) 60 60 03/13/24 22:30 03/13/24 22:33 03/13/24 22:45 Temperature Temperature Source Pulse Rate 131 H 127 H Respiratory Rate 27 H 27 H 22 H Respiratory Effort Respiratory Depth Respiratory Pattern Blood Pressure 173/146 H 152/100 H 148/95 H Blood Pressure Mean 155 116 110 Pulse Ox 100 100 98 Oxygen Delivery Method Fraction of Inspired Oxygen (FIO2) 03/13/24 23:00 03/13/24 23:15 03/13/24 23:25 Temperature 97.9 F Temperature Source Temporal Pulse Rate 130 H 126 H 116 H Respiratory Rate 26 H 27 H 21 H Respiratory Effort Respiratory Depth Respiratory Pattern Blood Pressure 149/99 H 143/92 H 143/92 H Blood Pressure Mean 109 106 109 Pulse Ox 95 93 95 Oxygen Delivery Method Bi-pap Bi-pap Fraction of Inspired Oxygen (FIO2) 03/13/24 23:30 03/13/24 23:45 03/14/24 00:00 Temperature Temperature Source Pulse Rate 113 H 112 H 117 H Respiratory Rate 14 17 18 Respiratory Effort Respiratory Depth Respiratory Pattern Blood Pressure 124/84 H 144/78 H 126/82 H Blood Pressure Mean 98 96 95 Pulse Ox 94 96 95 Oxygen Delivery Method Fraction of Inspired Oxygen (FIO2) 03/14/24 00:15 03/14/24 00:30 03/14/24 00:39 Temperature Temperature Source Pulse Rate 113 H 118 H Respiratory Rate 15 23 H Respiratory Effort Respiratory Depth Respiratory Pattern Blood Pressure 132/84 H 140/94 H Blood Pressure Mean 99 104 Pulse Ox 96 97 Oxygen Delivery Method Fraction of Inspired Oxygen (FIO2) 03/14/24 00:40 03/14/24 00:45 03/14/24 01:00 Temperature Temperature Source Pulse Rate 115 H 116 H 113 H Respiratory Rate 22 H 20 H 20 H Respiratory Effort Respiratory Depth Respiratory Pattern Tachypnea Blood Pressure 140/92 H Blood Pressure Mean 106 Pulse Ox 97 96 Oxygen Delivery Method Bi-pap Fraction of Inspired Oxygen (FIO2) 30 03/14/24 01:15 03/14/24 01:30 03/14/24 01:41 Temperature Temperature Source Pulse Rate 106 H 103 H Respiratory Rate 17 19 H Respiratory Effort Respiratory Depth Respiratory Pattern Blood Pressure 124/90 H 115/84 H Blood Pressure Mean 100 93 Pulse Ox 97 95 Oxygen Delivery Method Bi-pap Fraction of Inspired Oxygen (FIO2) 03/14/24 01:45 03/14/24 01:47 Temperature 98.7 F Temperature Source Pulse Rate 102 H 102 H Respiratory Rate 17 19 H Respiratory Effort Respiratory Depth Respiratory Pattern Blood Pressure 112/81 H 112/81 H Blood Pressure Mean 91 91 Pulse Ox 96 95 Oxygen Delivery Method Fraction of Inspired Oxygen (FIO2) Positive well nourished and well developed Constitutional Narrative: Patient is an acute moderate to severe respiratory distress with tachypnea accessory muscle use and dyspnea with speech and tripoding General Appearance ED: well developed; Negative for pallor HEENT HEENT Narrative: No tongue or lip swelling no oral lesions no airway edema or compromise There is cobblestoning in the posterior pharynx consistent with sinus drainage No secondary findings to suggest infection Eyes PERRL and EOMs intact bilaterally Neck supple and no JVD Neck Narrative: No nuchal rigidity or meningeal signs No crepitance or subcutaneous emphysema noted Chest Wall palpation of chest normal Chest Narrative: No bony deformity or crepitance Resp Resp Narrative: Patient is in moderate to severe respiratory distress with tachypnea accessory muscle use dyspnea with speech and tripoding. Breath sounds are diminished throughout with faint wheezing rhonchi noted in the bilateral lower lobes. Cardio regular rhythm Rate: tachycardic and other Other Details: Tachycardic rate with regular rhythm Radial and carotid pulses are equal and symmetric GI normal to inspection, nondistended, normoactive bowel sounds, non-tender, non-distended and no masses Auscultation: normoactive bowel sounds Palpation: soft Extremity normal to inspection Extremity Narrative: No asymmetric edema no pitting edema negative Homans' sign bilaterally Neuro oriented x3, CN's II-XII intact bilaterally and no sensory deficits noted Sensorium / Orientation: alert Motor Exam: strength 5/5 throughout Psych Mood & Affect: anxious Skin no rashes or lesions noted General Skin Exam: Negative for jaundice or pallor MDM MDM MDM Narrative Medical decision making narrative: Patient arrived to the ER hypertensive tachycardic and with visible increased work of breathing. With her report of hypoxia at home while on oxygen there is concern for pneumonia pleural effusion or pneumothorax as a cause of his symptoms or could be related to COVID influenza or RSV. There is also always a concern for acute blood loss anemia. Basic blood work was obtained which shows leukocytosis with mild left shift. proBNP is normal going against congestive heart failure/fluid overload. Viral swab was negative as well. Initial chest x-ray questioned pneumonia along the right and with his persistent tachycardia there is concern for potential PE or pneumothorax so a CTA was obtained. CTA revealed no PE or pneumothorax or fluid overload but it did show extensive mucous plugging and bronchiectasis. Because of his elevated white count and mild lactic acidosis he was started on Rocephin and Zithromax. The patient was given a trial off BiPAP but shortly after taking the noninvasive breathing apparatus off he had a return to his increased work of breathing. Therefore this time as he is requiring a higher level of oxygen support as well as showing changes concerning for developing infection he needs to stay in the hospital for continued antibiotics and further care. Plan of care was discussed with hospitalist who is agreeable to it and therefore admit him to the ICU for further monitoring History & Record Review Discussion w/independent historian: EMS personnel, Patient and Family Lab Data Attestation: I reviewed the patient's lab results. Labs: Laboratory Results - last 24 hr 03/13/24 03/14/24 22:30 00:52 WBC 14.7 H RBC 4.32 L Hgb 8.6 L Hct 31.1 L MCV 72.0 L MCH 19.9 L MCHC 27.7 L RDW Std Deviation 44.5 H RDW Coeff of Maya 17.2 H Plt Count 627 H MPV 9.5 Immature Gran % (Auto) 0.700 Neut % (Auto) 64.2 Lymph % (Auto) 24.8 Grayson % (Auto) 8.6 Eos % (Auto) 1.3 Baso % (Auto) 0.4 Absolute Neuts (auto) 9.5 H Absolute Lymphs (auto) 3.65 Nucleated RBC % 0 Retic Count 1.64 H Immature Retic Fraction 20.30 H Retic Hgb Equivalent 16.7 L Sodium 139 Potassium 4.5 Chloride 105 Carbon Dioxide 28.0 Anion Gap 6 BUN 11 Creatinine 1.04 Estim Creat Clear Calc 84.82 Est GFR (MDRD) Af Amer 96 Est GFR (MDRD) Non-Af 79 BUN/Creatinine Ratio 10.6 Glucose 144 H Lactic Acid 2.1 H* Calcium 9.4 Magnesium 1.9 Iron 15 L TIBC 479 H Iron Saturation 3.1 L Ferritin 7 L B-Natriuretic Peptide 8.0 Procalcitonin 0.12 H ABG Data ABG results: ABG 03/13/24 22:44 Specimen Type ART Sample Site R Radial pH 7.37 Bicarbonate Actual 26.2 H Total CO2 28 Base Excess 1 O2 Saturation 97 O2 % 40.0 ABG pCO2 45.0 ABG pO2 98 Nikunj Test Positive Respiration Rate 12 O2 Delivery Device BiPAP Vent Mode Not entered Tidal Volume 450.0 Clinical Comments Radiography Diagnostic Testing: Clinical Impression(s) from Imaging Studies Chest X-Ray 03/13/24 22:55 IMPRESSION: Emphysema with possible right upper lobe pneumonia. CT may be useful. Electronically Signed: Deshawn Mcintosh MD at 23:10 EST , Chest CTA 03/13/24 23:23 IMPRESSION: 1. No pulmonary embolism or aortic dissection. 2. Extensive mucous plugging in the lower lobe bronchi bilaterally. 3. Severe panlobular emphysema. 4. Extensive tubular bronchiectasis in the lower lobes bilaterally. 5. Subsegmental atelectasis in the lung bases bilaterally. Electronically Signed: Giovanni Son MD at 1:19 EST , Chest x-ray as interpreted by the emergency medicine physician reveals emphysema changes with questionable right upper lobe infiltrate Management Discussion w/another healthcare provider: Hospitalist Critical Care Time Critical Care Time: Yes Critical care time (excluding procedures): Discussing w/Patient &/or Family/[employer] Supervisor, Discussing w/Consultants and - (Critical care time of 31 minutes) Discharge Plan Dx/Rx/DC Orders Clinical Impression: Acute on chronic hypoxic respiratory failure, Leukocytosis, Mucus plugging of bronchi, COPD exacerbation, Anemia Disposition Disposition: Acute Care Hospital [facility] Discharge Date/Time: 03/14/24 02:39
--- NOTE | 2024-03-14 02:06 | HP.PCM.HOS_ITS ---
HPI - General General Date of Admission: 03/14/24 Date of Service: 03/14/24 Chief Complaint: Shortness of breath HPI Narrative LUIS AVILA, is a 53 M who presented to the emergency department late on 03/13/2024 secondary to worsening shortness of breath. Patient states his symptoms started about 2 days prior. He has not had any associated nasal congestion, headache, sore throat and he does not have a significant cough. Sputum production is his baseline. He does have a history of MRSA pneumonia previously and required tracheostomy in 2015. He does wear oxygen at baseline and 4 L nasal cannula. Upon presentation the emergency department, it was indicated that he was tripoding severely and markedly hypoxic and was placed on BiPAP. He quit smoking 2 years ago. FEV1 on his most recent PFTs was 31% predicted. Vital signs on presentation showed temperature of 97.4, heart rate 112, respiratory was 20, blood pressure was 158/92 and he was on BiPAP at 60% with an FiO2 100%. Breathing was documented as short and labored, shallow and tachypneic. Vital signs showed leukocytosis with white count of 14.7, anemia that is microcytic in nature with a hemoglobin of 8.6 and appears consistent with his baseline on previous lab as well as thrombocytosis with a platelet count of 627,000. There was no left shift or abnormal differential. ABG showed a pH of 7.37 with a pCO2 of 45 and a pO2 of 98 on BiPAP at 60%. Chemistry panel was unremarkable. Lactic acid was mildly elevated 2.1. Magnesium was normal. I did obtain iron studies and they were consistent with iron deficiency. Ferritin level was low at 7. BNP was 8. Procalcitonin was 0.12. Chest x-ray was consistent with emphysematous changes and possible right upper lobe pneumonia. CTA of the chest was obtained and found to show no PE aortic dissection, extensive mucus plugging in the lower lobe bronchi bilaterally, severe panlobular emphysematous changes, extensive tubular bronchiectasis in the lower lobes bilaterally and subsegmental atelectasis in the lung bases bilaterally. EKG was overtly unremarkable for any ischemic changes. In the emergency department he was placed on BiPAP, given IV fluids, and IV antibiotics. Given the severity of his lung disease and his intermittent requirement of BiPAP with tripoding I will place him in the intensive care unit as he is full code to monitor him closely over the next 24 hours. Hopefully he does well and may be transferred to medical surgical floor at that time. [facility] Medical History Chronic hypoxic respiratory failure History and physical examination, immigration Exposure to COVID-19 virus Alcohol abuse Ulcer Smoker TIA (transient ischemic attack) History of bacterial pneumonia Depression Anxiety COPD (chronic obstructive pulmonary disease) History of tobacco use Home Medications ?Medication ?Instructions ?Recorded ?Last Taken ?Type sertraline 100 mg tablet 100 mg PO DAILY mood 11/19/14 10/19/22 10:00 History pantoprazole 40 mg tablet,delayed 40 mg PO BID stomache 03/20/21 10/19/22 10:00 History release trazodone 50 mg tablet 100 - 150 mg PO PRN sleep 03/20/21 03/18/21 History ipratropium 0.5 mg-albuterol 3 mg 3 ml inhalation Q4H PRN breathing 08/15/21 10/19/22 10:00 History (2.5 mg base)/3 mL nebulization soln albuterol sulfate 90 mcg/actuation 2 puff inhalation Q4H PRN PRN 02/10/22 10/19/22 10:00 Rx aerosol inhaler (Ventolin HFA) Wheezing ##1 ferrous sulfate 325 mg (65 mg 325 mg PO DAILY #90 tabs 11/14/22 Unknown Rx iron) tablet (Iron (ferrous sulfate)) fluticasone propionate 230 2 puff inhalation BID 03/13/24 Unknown History mcg-salmeterol 21 mcg/actuation HFA inhaler (Advair HFA) tiotropium bromide 2.5 2 puff inhalation DAILY 03/13/24 Unknown History mcg/actuation mist for inhalation (Spiriva Respimat) Allergy/AdvReac Type Severity Reaction Status Date / Time tramadol HCl (From Ultra) Allergy Swelling Verified 03/13/24 22:21 codeine AdvReac PT UNSURE Verified 03/13/24 22:21 OF REACTION Family History Other Cancer Diabetes Heart disease Hypertension Surgical History History of herniorrhaphy History of tonsillectomy History of chest tube placement History of tracheostomy Social History (Updated 03/14/24 @ 02:[address] Joie Lopez, DO) household members: none Smoking Status: Former smoker how long ago did patient quit smoking: Patient quit smoking 2 years ago alcohol intake: current alcohol intake frequency: holidays/special occasions only substance use type: does not use ROS Constitutional Constitutional: Denies anorexia, change in weight, chills, fatigue, fever(s), malaise, night sweats, weakness or other Eyes Eyes: Denies blurry vision, change in eye color, change in vision, discharge from eye(s), double vision, erythema, eye pain, loss of vision or other ENT HEENT: Denies abnormal hearing, dysphagia, ear pain, epistaxis, headache(s), hearing loss, nasal congestion, nasal discharge, post nasal drip, sinus pressure, sore throat or other Cardiovascular Cardiovascular: Denies chest pain, claudication, dyspnea on exertion, edema, lightheadedness, orthopnea, palpitations, paroxysmal nocturnal dyspnea, rapid heart rate, syncope or other Respiratory/Chest Respiratory/Chest: Reports cough, dyspnea, shortness of breath at rest, shortness of breath with exertion and wheezing; Denies excessive phlegm production, hemoptysis, productive cough or other Gastrointestinal Gastrointestinal: Denies abdominal pain, coffee ground emesis, constipation, diarrhea, dyspepsia, hematemesis, hematochezia, loose stools, melena, nausea, vomiting or other Genitourinary Genitourinary: Denies burning urination, difficulty urinating, dysuria, hematuria, nocturia, urinary frequency, urinary hesitancy, urinary incontinence, urinary urgency or other Musculoskeletal Musculoskeletal: Denies arthralgias, back pain, joint pain, joint stiffness, joint swelling, myalgias, neck pain or other Neurologic Neurologic: Denies abnormal gait, abnormal speech, confusion, disequilibrium, dizziness, focal weakness, headache(s), numbness, paresthesias, seizure-like activity, seizures, syncope, tingling, tremor(s) or other Psychiatric Psychiatric: Denies anxiety, depression, homicidal ideation, suicidal ideation or other Endocrine Endocrinology: Denies change in body appearance, cold intolerance, excessive sweating, heat intolerance, polydipsia, polyuria or other Hematologic/Lymphatic Hematologic/Lymphatic: Denies anemia, easy bleeding, easy bruising, lymphadenopathy or other Allergic/Immunologic Allergic/Immunologic: Denies rhinitis, hives, eczemia, asthma or other Vital Signs Vital Signs Vital Signs: 03/13/24 22:20 03/13/24 22:20 03/13/24 22:25 Temperature 97.4 F L 97.4 F L Temperature Source Temporal Temporal Pulse Rate 122 H 121 H Respiratory Rate 20 H 22 H Respiratory Effort Short of Breath Labored Respiratory Depth Shallow Respiratory Pattern Tachypnea Blood Pressure 158/92 H 158/92 H Blood Pressure Mean 114 114 Pulse Ox 100 100 Oxygen Delivery Method Bi-pap Bi-pap Bi-pap Fraction of Inspired Oxygen (FIO2) 60 60 60 03/13/24 22:25 03/13/24 22:25 03/13/24 22:29 Temperature Temperature Source Pulse Rate 122 H 131 H Respiratory Rate 24 H 23 H Respiratory Effort Respiratory Depth Respiratory Pattern Tachypnea Blood Pressure Blood Pressure Mean Pulse Ox 100 100 100 Oxygen Delivery Method Bi-pap Fraction of Inspired Oxygen (FIO2) 60 60 03/13/24 22:30 03/13/24 22:33 03/13/24 22:45 Temperature Temperature Source Pulse Rate 131 H 127 H Respiratory Rate 27 H 27 H 22 H Respiratory Effort Respiratory Depth Respiratory Pattern Blood Pressure 173/146 H 152/100 H 148/95 H Blood Pressure Mean 155 116 110 Pulse Ox 100 100 98 Oxygen Delivery Method Fraction of Inspired Oxygen (FIO2) 03/13/24 23:00 03/13/24 23:15 03/13/24 23:25 Temperature 97.9 F Temperature Source Temporal Pulse Rate 130 H 126 H 116 H Respiratory Rate 26 H 27 H 21 H Respiratory Effort Respiratory Depth Respiratory Pattern Blood Pressure 149/99 H 143/92 H 143/92 H Blood Pressure Mean 109 106 109 Pulse Ox 95 93 95 Oxygen Delivery Method Bi-pap Bi-pap Fraction of Inspired Oxygen (FIO2) 03/13/24 23:30 03/13/24 23:45 03/14/24 00:00 Temperature Temperature Source Pulse Rate 113 H 112 H 117 H Respiratory Rate 14 17 18 Respiratory Effort Respiratory Depth Respiratory Pattern Blood Pressure 124/84 H 144/78 H 126/82 H Blood Pressure Mean 98 96 95 Pulse Ox 94 96 95 Oxygen Delivery Method Fraction of Inspired Oxygen (FIO2) 03/14/24 00:15 03/14/24 00:30 03/14/24 00:39 Temperature Temperature Source Pulse Rate 113 H 118 H Respiratory Rate 15 23 H Respiratory Effort Respiratory Depth Respiratory Pattern Blood Pressure 132/84 H 140/94 H Blood Pressure Mean 99 104 Pulse Ox 96 97 Oxygen Delivery Method Fraction of Inspired Oxygen (FIO2) 03/14/24 00:45 03/14/24 01:00 03/14/24 01:15 Temperature Temperature Source Pulse Rate 116 H 113 H 106 H Respiratory Rate 20 H 20 H 17 Respiratory Effort Respiratory Depth Respiratory Pattern Blood Pressure 140/92 H 124/90 H Blood Pressure Mean 106 100 Pulse Ox 96 97 Oxygen Delivery Method Bi-pap Bi-pap Fraction of Inspired Oxygen (FIO2) 03/14/24 01:47 Temperature 98.7 F Temperature Source Pulse Rate 102 H Respiratory Rate 19 H Respiratory Effort Respiratory Depth Respiratory Pattern Blood Pressure 112/81 H Blood Pressure Mean 91 Pulse Ox 95 Oxygen Delivery Method Fraction of Inspired Oxygen (FIO2) Weight Weight: 73.482 kg Body Mass Index (BMI) 23.2 Physical Exam Const alert, oriented x3, no apparent distress and average body habitus; Negative for healthy appearing or well nourished Constitutional Narrative: Disheveled, middle-aged, white male, sitting up in bed, remains mildly tachypneic but now on nasal cannula, currently appears comfortable and nontoxic, appears older than stated age General Appearance: cooperative HEENT normocephalic, head/scalp atraumatic, hearing grossly normal bilaterally and moist oral mucous membranes HEENT Narrative: Mallampati 1, no thrush, dentition is extremely poor with many rotted teeth Eyes EOMs intact bilaterally; Negative for conjunctivae normal Eyes Narrative: Conjunctiva pallor bilaterally, no scleral icterus Neck no lymphadenopathy and supple Neck Narrative: Trachea midline, no thyroid enlargement Resp no retractions, no use of accessory muscles and No clear to auscultation bilaterally Resp Narrative: Severely diminished bilaterally with scattered end expiratory wheezes, tachypneic, no signs of extremis at this time, intermittent dyspnea with conversation Auscultation: wheezes; Negative for rales or rhonchi Cardio regular rhythm, S1 normal heart sound, S2 normal heart sound, no murmurs, no rub, no gallops and no clicks Cardio Narrative: Mild tachycardia GI normal to inspection, nondistended, normoactive bowel sounds, soft to palpation and non-tender Extremity no clubbing, cyanosis or edema Extremity Narrative: Pedal and radial pulses are 2+ Skin skin turgor normal, no jaundice, no petechiae and no mottling Skin Narrative: Skin is pale Neuro oriented x3 and moves all extremities Speech: speech normal Psych affect normal Psych Narrative: Pleasant, interacts appropriately Results Lab / Micro Data 03/13/24 22:30 03/13/24 22:30 Labs: Laboratory Results - last 24 hr 03/13/24 22:30: WBC 14.7 H, RBC 4.32 L, Hgb 8.6 L, Hct 31.1 L, MCV 72.0 L, MCH 19.9 L, MCHC 27.7 L, RDW Std Deviation 44.5 H, RDW Coeff of Maya 17.2 H, Plt Count 627 H, MPV 9.5, Immature Gran % (Auto) 0.700, Neut % (Auto) 64.2, Lymph % (Auto) 24.8, Sweet [place] % (Auto) 8.6, Eos % (Auto) 1.3, Baso % (Auto) 0.4, Absolute Neuts (auto) 9.5 H, Absolute Lymphs (auto) 3.65, Nucleated RBC % 0, Sodium 139, Potassium 4.5, Chloride 105, Carbon Dioxide 28.0, Anion Gap 6, BUN 11, Creatinine 1.04, Estim Creat Clear Calc 84.82, Est GFR (MDRD) Af Amer 96, Est GFR (MDRD) Non-Af 79, BUN/Creatinine Ratio 10.6, Glucose 144 H, Lactic Acid 2.1 H*, Calcium 9.4, Magnesium 1.9, Iron 15 L, TIBC 479 H, Iron Saturation 3.1 L, F erritin 7 L, B-Natriuretic Peptide 8.0, Procalcitonin 0.12 H 03/14/24 00:52: Retic Count 1.64 H, Immature Retic Fraction 20.30 H, Retic Hgb Equivalent 16.7 L Micro: Microbiology 03/13/24 22:40 Mucosa - Nose SARS-CoV-2, Influenza & RSV (PCR) - Final ABG Data ABG results: ABG 03/13/24 22:44 Specimen Type ART Sample Site R Radial pH 7.37 Bicarbonate Actual 26.2 H Total CO2 28 Base Excess 1 O2 Saturation 97 O2 % 40.0 ABG pCO2 45.0 ABG pO2 98 Nikunj Test Positive Respiration Rate 12 O2 Delivery Device BiPAP Vent Mode Not entered Tidal Volume 450.0 Clinical Comments Imaging Radiology Impression Chest X-Ray 03/13/24 22:55 IMPRESSION: Emphysema with possible right upper lobe pneumonia. CT may be useful. Electronically Signed: Deshawn Mcintosh MD at 23:10 EST , Chest CTA 03/13/24 23:23 IMPRESSION: 1. No pulmonary embolism or aortic dissection. 2. Extensive mucous plugging in the lower lobe bronchi bilaterally. 3. Severe panlobular emphysema. 4. Extensive tubular bronchiectasis in the lower lobes bilaterally. 5. Subsegmental atelectasis in the lung bases bilaterally. Electronically Signed: Giovanni Son MD at 1:19 EST , Assessment & Plan Assessment/Plan (1) Acute on chronic hypoxic respiratory failure: (2) Iron deficiency anemia: (3) Thrombocytosis: (4) Lactic acidosis: (5) Leukocytosis: PLAN: Plan Acute on chronic hypoxic respiratory failure secondary to acute exacerbation of COPD/+/-PNA -Baseline oxygen requirement is 4 L [id number] -FEV1 baseline on last PFTs was 31% predicted -Patient required oxygen via BiPAP on admission as he was tripoding and had tachycardia and elevated blood pressure related to his respiratory distress -Continue BiPAP and wean to baseline oxygen as able -Scheduled Solu-Medrol 40 every 8 -Will initiate antimicrobials with vancomycin and Levaquin given his history of MRSA pneumonia as well as high risk for Pseudomonas given his bronchiectasis -Start Mucinex 1200 twice daily -Incentive spirometer -Acapella -Scheduled and as needed nebulizers -Patient will need ambulatory pulse ox prior to discharge -Consult pulmonary medicine -Highly recommend outpatient follow-up with pulmonary medicine after discharge Lactic acidosis -Secondary to the above -Highly doubt related to sepsis Leukocytosis -May be reactive but also could be related to pneumonia -Will trend -Anticipate may up trended due to steroid use Microcytic anemia secondary to iron deficiency -Iron studies are consistent with iron deficiency -Ferritin is low -Reticulocyte count is not markedly elevated -Was admitted here in November 2022 and had an EGD and colonoscopy at that time -EGD showed normal esophagus, small hiatal hernia and erythematous duodenopathy -Colonoscopy showed pancolonic diverticulosis, nonbleeding internal hemorrhoids -It does not look like any further workup has been pursued -If hemoglobin stays stable would recommend outpatient follow-up with GI for capsule endoscopy -Will infuse iron IV 200 mg daily x 3 days then restart home iron supplementation but may need higher doses and would recommend vitamin C be taken concurrently to enhance absorption COPD Gold class IV -Hold home inhalers -Oxygen dependent at 4 L for baseline -Recommend outpatient follow-up with pulmonary medicine after discharge History of alcohol abuse -Remote History of tobacco abuse -Patient states he quit 2 years ago -Advise ongoing cessation DVT prophylaxis -Enoxaparin 40 daily CODE STATUS -Full code as verified prior to admission Sepsis Attestation Sepsis Alert: Yes Sepsis Attestation: Sepsis Ruled Out Charges/Coding Visit Charges Inpatient E&M: 52398 Init Hosp L2
[2024-03-14] MEDS: Acetaminophen 500 MG Tablet 1000 MG PO (02:26)
--- NOTE | 2024-03-14 02:34 | CPS ---
[0040] Pt.'s NIV settings changed from AVAPS to BiPAP at this time per pt.'s comfort. Dr. Bustos notified of changes.
[2024-03-14 02:35] LABS: Reflex Lactate? Y
[2024-03-14] MEDS: 0.9% Saline Lock 10 ML Syringe IV ×5 (03:08→14:50)
[2024-03-14] MEDS: Sodium Ferric Gluconat 250 MG in 0.9% Normal Saline 250 ML 135 MG IV (03:08)
[2024-03-14] MEDS: Vancomycin IV 1,000 MG/200 ML BAG 200 MG IV (03:12)
[2024-03-14 03:17] LABS: Absolute Lymphocyte Count 0.58 X10^3/uL (0.83-4.51); Absolute Neutrophil Count 14.4 X10^3/uL (2.0-7.7); Basophil# 0.03 X10^3/uL; Basophil% 0.2 % (0-1); Lymphocyte # 0.58 X10^3/ul (0.83-4.51); Lymphocyte % 3.8 % (19-41); Mean Corp Hgb Conc 27.6 g/dL (32-36); Mean Corpuscular Hgb 19.7 pg (27.0-32.0); Mean Corpuscular Volume 71.3 fL (80-94); Mean Platelet Vol. 9.5 fl (6.2-12.0); Monocyte% 0.7 % (0-10); NRBC Flagged by Analyzer 0 % (0-5); Neutrophil % 94.6 % (47-70); POSITIVE DIFFERENTIAL YES; Platelet Count 535 K/mm3 (150-450); RBC Distribution Width CV 17.3 % (11.6-14.6); RBC Distribution Width SD 43.9 fl (35.1-43.9); Red Blood Count 4.07 M/mm3 (4.6-6.2); White Blood Count 15.2 K/mm3 (4.4-11.0)
--- NOTE | 2024-03-14 03:21 | PCM.RX.CS ---
Consult Antibiotic Management Pharmacy has been consulted to manage selected antibiotic: Vancomycin Type of Intervention Type of Consult: New start Microbiology Microbiology: Microbiology 03/13/24 22:40 Mucosa - Nose SARS-CoV-2, Influenza & RSV (PCR) - Final Dosing Weight Weight used for dosin.2 kg Estimated Creatinine Clearance Estimated Creatinine Clearance: 84.82 Pharmacy Plan for Drug Dosing Pharmacy Plan for Drug Dosing: Pharmacy Service will continue to monitor and adjust dosing as required. 1000 INITIAL DOSE GIVEN 03/14 @ 0312. START 1250MG Q12H AND DRAW TROUGH PRIOR TO 4TH DOSE Follow-Up Labs Follow-Up Labs: Trough: Vancomycin Date/Time Labs Ordered Labs to be done on [date and time ordered]: 03/15 @ 1430
[2024-03-14 03:37] LABS: ALB/GLOB Ratio 0.7 RATIO (0.9-2.4); AST(SGOT) 7 U/L (15-37); Alanine Aminotransfer ALT/SGPT 17 U/L (16-61); Albumin, Serum 3.5 g/dL (3.2-5.0); Alkaline Phosphatase 82 U/L (45-117); Anion Gap 5 (5-15); BUN 12 mg/dL (7-18); BUN/Creat Ratio 11.7 RATIO (10-20); Calcium,Total 8.8 mg/dL (8.5-10.1); Chloride 106 mmol/L (98-107); Creatinine, Serum 1.03 mg/dL (0.70-1.30); EST Glomerular Filtration Rate 80 mL/min (>60); Est Glom Filt Rate - Afr Amer 97 mL/min (>60); Estimated Creatinine Clearance 82.35 ml/min; Globulin 4.8 g/dL (2.2-4.2); Glucose 145 mg/dL (74-106); Magnesium 1.7 mg/dL (1.6-2.6); Phosphorus 1.6 mg/dL (2.5-4.9); Potassium 4.3 mmol/L (3.5-5.1); Protein, Total 8.3 g/dL (6.4-8.2); Sodium Level 138 mmol/L (136-145); Thyroid Stim Hormone (TSH) 0.416 uIU/mL (0.358-3.740)
[2024-03-14 03:47] LABS: Lactic Acid 1.6 mmol/L (0.4-1.9)
[2024-03-14] MEDS: Sodium Phosphate/Na Biphos 30 MMOL in 0.9% Normal Saline (250mL Bag) 250 ML 62.5 MMOL IV (04:18)
--- NOTE | 2024-03-14 06:32 | CON.PCM.CC_ITS ---
Assessment & Plan Assessment/Plan (1) Acute on chronic hypoxic respiratory failure: (2) COPD exacerbation: PLAN: Plan RECOMMENDATIONS: 1. Continue empiric antimicrobials. 2. Continue scheduled bronchodilators and IV steroids. 3. Aggressive bronchopulmonary hygiene. 4. Encourage incentive spirometer use and mobilize patient as tolerated. 5. Wean supplemental oxygen to maintain saturations at or above 90%. 6. Continue appropriate DVT prophylaxis. IMPRESSIONS: 1. Acute on chronic hypoxemic respiratory failure Clinical concern for COPD exacerbation secondary to pneumonia with mucous plugging. The patient has improved from a clinical perspective with noninvasive positive pressure ventilatory support along with empiric antimicrobials, IV steroids and bronchodilators, all of which will be continued. The patient has advanced age COPD along with a baseline oxygen requirement of 4 L/min and is currently followed by Dr. Abby Block of pulmonary medicine on an outpatient basis. Recommend close outpatient follow-up after discharge with his primary pulmonary provider. 2. History of iron deficiency anemia/remote alcohol and tobacco dependency Complicates care, management, recovery and prognosis. Continue home medications as indicated. This note was generated with [employer] dictation software. It may contain incorrect words, spelling, and punctuation that were not noted in checking the note before signing. HPI Consult Data Date of Consult: 03/14/24 HPI Narrative Reason for Consultation: Respiratory failure HPI Narrative: The patient is a 53-year-old male, with a history as outlined below, who presented to the emergency department on March 14 with worsening shortness of breath. The patient has a known history of chronic hypoxemic respiratory failure with a baseline oxygen requirement of 4 L/min, COPD, along with remote history of alcohol and tobacco dependency. The patient reported that he is currently following with Dr. Abby Block of pulmonary medicine at [facility]. He appears to be on a triple therapy inhaler regimen on an outpatient basis. The patient denied the presence of a productive cough. On presentation to the emergency department, the patient was documented to be afebrile but was notably tachycardic tachypneic. Laboratory evaluation revealed a white blood cell count of 15,000. Hemoglobin was stable at 8.6 g/dL with a platelet count of 627,000. Chemistry profile was unremarkable, with the exception of a lactate of 2.1. CTA chest showed no evidence for pulmonary embolism. There was significant bilateral emphysematous changes along with lower lobe bronchiectasis and lower lobe mucous plugging. Blood cultures were obtained. COVID, influenza and RSV PCR's were negative. Respiratory viral panel was negative. Strep and urine Legionella antigens were negative. The patient was started on antimicrobial therapy along with scheduled bronchodilators and IV steroids. The patient was placed on BiPAP therapy and admitted to the medical intensive care unit for further management. This morning, the patient appears quite comfortable. He is maintaining appropriate oxygen saturations in the high 90s on his baseline requirement of 4 L/min. He did report interval improvement in his shortness of breath with prescribed medical therapy. [facility] Medical History Chronic hypoxic respiratory failure History and physical examination, immigration Exposure to COVID-19 virus Alcohol abuse Ulcer Smoker TIA (transient ischemic attack) History of bacterial pneumonia Depression Anxiety COPD (chronic obstructive pulmonary disease) History of tobacco use Home Medications ?Medication ?Instructions ?Recorded ?Last Taken ?Type sertraline 100 mg tablet 100 mg PO DAILY mood 11/19/14 10/19/22 10:00 History pantoprazole 40 mg tablet,delayed 40 mg PO BID stomache 03/20/21 10/19/22 10:00 History release trazodone 50 mg tablet 100 - 150 mg PO PRN sleep 03/20/21 03/18/21 History ipratropium 0.5 mg-albuterol 3 mg 3 ml inhalation Q4H PRN breathing 08/15/21 10/19/22 10:00 History (2.5 mg base)/3 mL nebulization soln albuterol sulfate 90 mcg/actuation 2 puff inhalation Q4H PRN PRN 02/10/22 10/19/22 10:00 Rx aerosol inhaler (Ventolin HFA) Wheezing ##1 ferrous sulfate 325 mg (65 mg 325 mg PO DAILY #90 tabs 11/14/22 Unknown Rx iron) tablet (Iron (ferrous sulfate)) fluticasone propionate 230 2 puff inhalation BID 03/13/24 Unknown History mcg-salmeterol 21 mcg/actuation HFA inhaler (Advair HFA) tiotropium bromide 2.5 2 puff inhalation DAILY 03/13/24 Unknown History mcg/actuation mist for inhalation (Spiriva Respimat) Allergy/AdvReac Type Severity Reaction Status Date / Time tramadol HCl (From [facility]) Allergy Swelling Verified 03/13/24 22:21 codeine AdvReac PT UNSURE Verified 03/13/24 22:21 OF REACTION Family History Other Cancer Diabetes Heart disease Hypertension Surgical History History of herniorrhaphy History of tonsillectomy History of chest tube placement History of tracheostomy Social History (Updated 03/14/24 @ 02:[address] Joie Lopez DO) household members: none Smoking Status: Former smoker how long ago did patient quit smoking: Patient quit smoking 2 years ago alcohol intake: current alcohol intake frequency: holidays/special occasions only substance use type: does not use ROS ROS Narrative 10 systems were reviewed with pertinent positives as noted in the HPI above. Physical Exam Const alert, oriented x3 and no apparent distress Constitutional Narrative: Appears older than stated age. General Appearance: cooperative HEENT normocephalic, head/scalp atraumatic and moist oral mucous membranes Eyes EOMs intact bilaterally, conjunctivae normal and no scleral icterus Neck supple General: trachea midline Chest inspection of chest normal Resp normal respiratory effort Auscultation: wheezes and diminished lung sounds Cardio regular rate and regular rhythm GI normal to inspection, nondistended, normoactive bowel sounds Extremity no clubbing, cyanosis or edema Skin no rashes or lesions noted Neuro CN's II-XII intact bilaterally, moves all extremities and no focal motor deficits Psych cooperative and affect normal Lab / Micro Data 03/14/24 02:58 03/14/24 02:58 Labs: Laboratory Results - last 24 hr 03/13/24 22:30: WBC 14.7 H, RBC 4.32 L, Hgb 8.6 L, Hct 31.1 L, MCV 72.0 L, MCH 19.9 L, MCHC 27.7 L, RDW Std Deviation 44.5 H, RDW Coeff of Maya 17.2 H, Plt Count 627 H, MPV 9.5, Immature Gran % (Auto) 0.700, Neut % (Auto) 64.2, Lymph % (Auto) 24.8, [place] % (Auto) 8.6, Eos % (Auto) 1.3, Baso % (Auto) 0.4, Absolute Neuts (auto) 9.5 H, Absolute Lymphs (auto) 3.65, Nucleated RBC % 0, Sodium 139, Potassium 4.5, Chloride 105, Carbon Dioxide 28.0, Anion Gap 6, BUN 11, Creatinine 1.04, Estim Creat Clear Calc 84.82, Est GFR (MDRD) Af Amer 96, Est GFR (MDRD) Non-Af 79, BUN/Creatinine Ratio 10.6, Glucose 144 H, Lactic Acid 2.1 H*, Calcium 9.4, Magnesium 1.9, Iron 15 L, TIBC 479 H, Iron Saturation 3.1 L, F erritin 7 L, B-Natriuretic Peptide 8.0, Procalcitonin 0.12 H 03/14/24 00:52: Retic Count 1.64 H, Immature Retic Fraction 20.30 H, Retic Hgb Equivalent 16.7 L 03/14/24 02:58: WBC 15.2 H, RBC 4.07 L, Hgb 8.0 L, Hct 29.0 L, MCV 71.3 L, MCH 19.7 L, MCHC 27.6 L, RDW Std Deviation 43.9, RDW Coeff of Maya 17.3 H, Plt Count 535 H, MPV 9.5, Immature Gran % (Auto) 0.700, Neut % (Auto) 94.6 H, Lymph % (Auto) 3.8 L, [place] % (Auto) 0.7, Eos % (Auto) 0.0, Baso % (Auto) 0.2, Absolute Neuts (auto) 14.4 H, Absolute Lymphs (auto) 0.58 L, Nucleated RBC % 0, Sodium 138, Potassium 4.3, Chloride 106, Carbon Dioxide 27.0, Anion Gap 5, BUN 12, Creatinine 1.03, Estim Creat Clear Calc 82.35, Est GFR (MDRD) Af Amer 97, Est GFR (MDRD) Non-Af 80, BUN/Creatinine Ratio 11.7, Glucose 145 H, Lactic Acid 1.6, Calcium 8.8, Phosphorus 1.6 L, Magnesium 1.7, Total Bilirubin 0.40, AST 7 L, ALT 17, Alkaline Phosphatase 82, Total Protein 8.3 H, Albumin 3.5, Globulin 4.8 H, A lbumin/Globulin Ratio 0.7 L, TSH 0.416 Micro: Microbiology 03/14/24 03:35 Urine, Clean Catch Legionella Antigen - Final 03/14/24 03:35 Urine, Clean Catch Streptococcus pneumoniae Antigen (M - Final 03/13/24 23:50 Mucosa - Nose Respiratory Panel (PCR) - Final 03/13/24 22:40 Mucosa - Nose SARS-CoV-2, Influenza & RSV (PCR) - Final ABG Data ABG results: ABG 03/13/24 22:44 Specimen Type ART Sample Site R Radial pH 7.37 Bicarbonate Actual 26.2 H Total CO2 28 Base Excess 1 O2 Saturation 97 O2 % 40.0 ABG pCO2 45.0 ABG pO2 98 Nik[place]j Test Positive Respiration Rate 12 O2 Delivery Device BiPAP Vent Mode Not entered Tidal Volume 450.0 Clinical Comments Imaging Radiology Impression Chest X-Ray 03/13/24 22:55 IMPRESSION: Emphysema with possible right upper lobe pneumonia. CT may be useful. Electronically Signed: Deshawn Mcintosh MD at 23:10 EST , Chest CTA 03/13/24 23:23 IMPRESSION: 1. No pulmonary embolism or aortic dissection. 2. Extensive mucous plugging in the lower lobe bronchi bilaterally. 3. Severe panlobular emphysema. 4. Extensive tubular bronchiectasis in the lower lobes bilaterally. 5. Subsegmental atelectasis in the lung bases bilaterally. Electronically Signed: Giovanni Son MD at 1:19 EST , Charges/Coding Visit Charges Inpatient E&M: 48075 Init Hosp L3
[2024-03-14] MEDS: Ipratropium/Albuterol Sulfate 3 ML AMPUL.NEB INHALATION ×5 (06:59→23:34)
[2024-03-14] MEDS: Na Biphos/Potassium Phosphate PACKET 1 PACKET PO ×3 (08:32→17:08)
[2024-03-14] MEDS: guaiFENesin 1,200 MG Tablet 1200 MG PO ×2 (09:01→21:23)
[2024-03-14] MEDS: Sertraline 100 MG Tablet PO (09:02)
[2024-03-14] MEDS: Pantoprazole Sodium 40 MG Tablet PO ×2 (09:02→21:24)
[2024-03-14] MEDS: levoFLOXacin IV 750 MG/150 ML BAG 100 MG IV (09:02)
--- NOTE | 2024-03-14 11:03 | PCM.HOSP.N ---
Hospitalist Note Patient admitted early this morning for acute on chronic hypoxic respite failure. I saw the patient at bedside midmorning. Patient was somewhat fatigued appearing but otherwise breathing comfortably on 4 L nasal cannula at rest with oxygen saturations in the low 90s. He feels much improved from overnight. He is reporting some generalized lower musculoskeletal back pain that he states will worsen when he is having respiratory issues. He denies any other concerns this morning. Full progress note to follow tomorrow.
[2024-03-14] MEDS: Acetaminophen 325 MG Tablet 650 MG PO ×2 (11:36→18:00)
[2024-03-14] MEDS: Vancomycin HCl 1,250 MG in 0.9% Normal Saline (250mL Bag) 250 ML 167 MG IV (14:49)
[2024-03-14] MEDS: LORazepam 1 MG Tablet PO (21:54)
--- NOTE | 2024-03-14 23:54 | CPS ---
Patient does not want to wear the Bipap at this time. He feels that he is doing okay without it right now.
[2024-03-15] VITALS (11 sets, daily range): BP systolic 99–133; BP diastolic 58–84; PULSE 82–110; RESP 16–22; TEMP 36.5–36.9; O2SAT 91–96; BMI 22.3
[2024-03-15] MEDS: Ipratropium/Albuterol Sulfate 3 ML AMPUL.NEB INHALATION ×6 (03:28→23:37)
[2024-03-15] MEDS: Vancomycin HCl 1,250 MG in 0.9% Normal Saline (250mL Bag) 250 ML 167 MG IV (03:55)
[2024-03-15] MEDS: Na Biphos/Potassium Phosphate PACKET 1 PACKET PO ×3 (06:03→16:51)
[2024-03-15 08:30] LABS: Hemoglobin 7.1 g/dL (13.0-16.5); Mean Corp Hgb Conc 27.3 g/dL (32-36); Mean Corpuscular Hgb 19.5 pg (27.0-32.0); Mean Corpuscular Volume 71.4 fL (80-94); Mean Platelet Vol. 9.9 fl (6.2-12.0); Platelet Count 558 K/mm3 (150-450); RBC Distribution Width CV 17.6 % (11.6-14.6); RBC Distribution Width SD 45.1 fl (35.1-43.9); Red Blood Count 3.64 M/mm3 (4.6-6.2)
[2024-03-15 09:03] LABS: Albumin, Serum 3.2 g/dL (3.2-5.0); BUN 14 mg/dL (7-18); BUN/Creat Ratio 14.9 RATIO (10-20); Calcium,Total 9.1 mg/dL (8.5-10.1); Chloride 105 mmol/L (98-107); Creatinine, Serum 0.94 mg/dL (0.70-1.30); EST Glomerular Filtration Rate 89 mL/min (>60); Est Glom Filt Rate - Afr Amer 108 mL/min (>60); Estimated Creatinine Clearance 90.75 ml/min; Glucose 132 mg/dL (74-106); Phosphorus 3.3 mg/dL (2.5-4.9); Potassium 4.5 mmol/L (3.5-5.1); Sodium Level 139 mmol/L (136-145)
[2024-03-15 09:34] LABS: Hematocrit 28.8 % (40-54); Hemoglobin 7.9 g/dL (13.0-16.5)
[2024-03-15] MEDS: levoFLOXacin IV 750 MG/150 ML BAG 100 MG IV (10:00)
[2024-03-15] MEDS: Sertraline 100 MG Tablet PO (10:05)
[2024-03-15] MEDS: guaiFENesin 1,200 MG Tablet 1200 MG PO ×2 (10:05→22:01)
[2024-03-15] MEDS: Pantoprazole Sodium 40 MG Tablet PO ×2 (10:05→22:01)
--- NOTE | 2024-03-15 10:26 | PN.CC_ITS ---
Assessment & Plan Assessment/Plan (1) Acute on chronic hypoxic respiratory failure: (2) COPD exacerbation: PLAN: Plan RECOMMENDATIONS: 1. Transition to p.o. Levaquin to complete 7 days of therapy. 2. Continue scheduled bronchodilators and IV steroids. 3. At discharge, recommend prednisone 40 mg daily x 5 days. 4. Aggressive bronchopulmonary hygiene. 5. Encourage incentive spirometer use and mobilize patient as tolerated. 6. Wean supplemental oxygen to maintain saturations at or above 90%. 7. Continue appropriate DVT prophylaxis. 8. The patient should follow-up with his primary pulmonary provider, Dr. Abby Block, after discharge. 9. Will sign off at this time. Please call with any additional questions. IMPRESSIONS: 1. Acute on chronic hypoxemic respiratory failure Clinical concern for COPD exacerbation secondary to pneumonia with mucous plugging. The patient has improved from a clinical perspective with noninvasive positive pressure ventilatory support along with empiric antimicrobials, IV steroids and bronchodilators, all of which will be continued. The patient has advanced age COPD along with a baseline oxygen requirement of 4 L/min and is currently followed by Dr. Abby Block of pulmonary medicine on an outpatient basis. Recommend close outpatient follow-up after discharge with his primary pulmonary provider. In the interim, from my perspective, the patient can be transition to p.o. Levaquin to complete 7 days of therapy. He should be provided with a 5-day burst of prednisone 40 mg daily upon discharge. 2. History of iron deficiency anemia/remote alcohol and tobacco dependency Complicates care, management, recovery and prognosis. Continue home medications as indicated. This note was generated with [employer] dictation software. It may contain incorrect words, spelling, and punctuation that were not noted in checking the note before signing. Subjective Subjective The patient was seen and examined at the bedside this morning. Events from the last 24 hours have been reviewed. The patient is currently afebrile, hemodynamically stable and maintaining appropriate oxygen saturations on 4 L/min, which is his baseline requirement. Hemoglobin is stable at 7.9 g/dL. Objective Data Objective Data The patient's most recent lab work, culture data and imaging studies have all been personally reviewed. Infectious workup has been unrevealing to date. Vital Signs: Vital Signs Temp Pulse Resp BP Pulse Ox O2 Del Method O2 Flow Rate 98.0 F 85 18 99/65 96 Nasal Cannula 4 03/15/24 09:59 03/15/24 10:18 03/15/24 10:18 03/15/24 09:59 03/15/24 09:59 03/15/24 09:59 03/15/24 09:59 FiO2 30 03/14/24 00:40 Oxygen Flow Rate (L/min) 4 Oxygen Delivery Method Nasal Cannula Weight: 155 lb 10.342 oz Body Mass Index (BMI) 22.3 Intake & Output: Intake and Output for Last 24 Hours 03/13/24 03/14/24 03/15/24 23:59 23:59 23:59 Intake Total 4490 / 4490 275 / 275 Output Total 1500 / 1500 1400 / 1400 Balance 2990 / 2990 -1125 / -1125 Lab / Micro Data Attestation: I reviewed the patient's lab results. 03/15/24 09:10 03/15/24 07:40 Labs: Laboratory Results - last 24 hr 03/15/24 07:40: WBC 17.0 H, RBC 3.64 L, Hgb 7.1 L, Hct 26.0 L, MCV 71.4 L, MCH 19.5 L, MCHC 27.3 L, RDW Std Deviation 45.1 H, RDW Coeff of Maya 17.6 H, Plt Count 558 H, MPV 9.9, Sodium 139, Potassium 4.5, Chloride 105, Carbon Dioxide 29.0, BUN 14, Creatinine 0.94, Estim Creat Clear Calc 90.75, Est GFR (MDRD) Af Amer 108, Est GFR (MDRD) Non-Af 89, BUN/Creatinine Ratio 14.9, Glucose 132 H, Calcium 9.1, Phosphorus 3.3, Albumin 3.2 03/15/24 09:10: Hgb 7.9 L, Hct 28.8 L Micro: Microbiology 03/14/24 03:35 Urine, Clean Catch Legionella Antigen - Final 03/14/24 03:35 Urine, Clean Catch Streptococcus pneumoniae Antigen (M - Final 03/13/24 23:50 Mucosa - Nose Respiratory Panel (PCR) - Final 03/13/24 22:40 Mucosa - Nose SARS-CoV-2, Influenza & RSV (PCR) - Final Physical Exam Const alert, oriented x3 and no apparent distress Constitutional Narrative: Appears older than stated age. General Appearance: cooperative HEENT normocephalic, head/scalp atraumatic and moist oral mucous membranes Eyes EOMs intact bilaterally, conjunctivae normal and no scleral icterus Neck supple General: trachea midline Chest inspection of chest normal Resp normal respiratory effort Auscultation: diminished lung sounds; Negative for rales, rhonchi or wheezes Cardio regular rate and regular rhythm GI normal to inspection, nondistended, normoactive bowel sounds Extremity no clubbing, cyanosis or edema Skin no rashes or lesions noted Neuro CN's II-XII intact bilaterally, moves all extremities and no focal motor deficits Psych cooperative and affect normal Charges/Coding Visit Charges Inpatient E&M: 33354 Subs Hosp L2
--- NOTE | 2024-03-15 11:00 | CASEMGMT ---
ADELIA HOFFMANN Face to Face with patient for initial transition planning/care coordination assessment. ADELIA HOFFMANN introduced self and role at [facility]. Patient lying in bed, alert and oriented. Patient willing to participate in assessment and is able to answer all questions appropriately. Care providers, pharmacy, and demographics verified. 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 Patient states he is independent at home. Transportation: neighbor DME/HHC: Patient has shower chair, nebulizer, pulse ox, and home oxygen through [facility]. Patient states he has no tanks for discharge. Patient has been to Rehab unit in [place] previously. Will monitor for increase in home oxygen. Patient wishes to discharge home, denies need for home health at this time. Patient states he has no further needs or concerns at this time. ADELIA HOFFMANN called [facility] regarding portable tank at discharge and verified oxygen order. [facility] states they are able to deliver tank to hospital for at discharge and will call patient to arrange for additional tanks to be delivered to his home. CM to follow for discharge planning needs that may arise. Disposition Plan: Patient to discharge home with family support and follow-up plans in place. Will monitor for increase in home oxygen. Rosario GRESHAM, RN, CM
[2024-03-15] MEDS: Sodium Ferric Gluconat 250 MG in 0.9% Normal Saline 250 ML 135 MG IV (11:29)
[2024-03-15] MEDS: Acetaminophen 325 MG Tablet 650 MG PO ×2 (13:09→20:07)
--- NOTE | 2024-03-15 14:32 | PN_ITS ---
Subjective Subjective Patient seen and examined. He had no active complaints. He is still coughing but says he is feeling a bit better. Review of systems otherwise negative.He is on 4L of oxygen which is his baseline. Objective Data Objective Data Vital Signs: Vital Signs Temp Pulse Resp BP Pulse Ox O2 Del Method O2 Flow Rate 98.0 F 85 18 99/65 96 Nasal Cannula 4 03/15/24 09:59 03/15/24 10:18 03/15/24 10:18 03/15/24 09:59 03/15/24 09:59 03/15/24 14:00 03/15/24 14:00 FiO2 30 03/14/24 00:40 Oxygen Flow Rate (L/min) 4 Oxygen Delivery Method Nasal Cannula Weight: 155 lb 10.342 oz Body Mass Index (BMI) 22.3 Intake & Output: Intake and Output for Last 24 Hours 03/13/24 03/14/24 03/15/24 23:59 23:59 23:59 Intake Total 4490 / 4490 1145 / 1145 Output Total 1500 / 1500 1900 / 1900 Balance 2990 / 2990 -755 / -755 Lab / Micro Data 03/15/24 09:10 03/15/24 07:40 Labs: Laboratory Results - last 24 hr 03/15/24 07:40: WBC 17.0 H, RBC 3.64 L, Hgb 7.1 L, Hct 26.0 L, MCV 71.4 L, MCH 19.5 L, MCHC 27.3 L, RDW Std Deviation 45.1 H, RDW Coeff of Maya 17.6 H, Plt Count 558 H, MPV 9.9, Sodium 139, Potassium 4.5, Chloride 105, Carbon Dioxide 29.0, BUN 14, Creatinine 0.94, Estim Creat Clear Calc 90.75, Est GFR (MDRD) Af Amer 108, Est GFR (MDRD) Non-Af 89, BUN/Creatinine Ratio 14.9, Glucose 132 H, Calcium 9.1, Phosphorus 3.3, Albumin 3.2 03/15/24 09:10: Hgb 7.9 L, Hct 28.8 L Micro: Microbiology 03/14/24 03:35 Urine, Clean Catch Legionella Antigen - Final 03/14/24 03:35 Urine, Clean Catch Streptococcus pneumoniae Antigen (M - Final 03/13/24 23:50 Mucosa - Nose Respiratory Panel (PCR) - Final 03/13/24 22:40 Mucosa - Nose SARS-CoV-2, Influenza & RSV (PCR) - Final Physical Exam Const alert, oriented x3 and no apparent distress General Appearance: cooperative HEENT normocephalic, head/scalp atraumatic and moist oral mucous membranes Eyes PERRL and EOMs intact bilaterally Neck no lymphadenopathy and supple Lymph Lymphatic: no lymphadenopathy noted and no lymphedema noted Resp Resp Narrative: mildly diminished breath sounds bibasally, mild bilateral crackles, no wheezing. On 4L of oxygen which is his baseline. Cardio regular rate, regular rhythm, S1 normal heart sound, S2 normal heart sound and no murmurs GI normal to inspection, nondistended, normoactive bowel sounds, soft to palpation, non-tender and non-distended Extremity normal capillary refill, no clubbing, cyanosis or edema and no calf tenderness General Extremity: no tenderness to palpation of joints or extremities Skin General Skin Exam: no breakdown Neuro CN's II-XII intact bilaterally, no focal motor deficits and no sensory deficits noted Motor Exam: general weakness Psych thought process normal and cooperative Appearance: appropriate Assessment & Plan Assessment/Plan (1) COPD exacerbation: (2) Mucus plugging of bronchi: (3) Acute on chronic hypoxic respiratory failure: PLAN: Plan # Acute on chronic hypoxic respiratory failure due to COPD exacerbation and pneumonia * Currently on his baseline 4 L of oxygen. * He did require BiPAP when he came in to the hospital but was weaned off of BiPAP onto his baseline 4 L of oxygen. * On IV Solu-Medrol 40 mg Q8 and on antimicrobials with vancomycin and Levaquin. Antibiotics transition to p.o. Levaquin today for 7-day course. * Also Mucinex. * Pulmonology on board. Breathing treatments bronchodilators. Titrate oxygen to maintain saturation above 90%. * #Lactic acidosis: Resolved #Iron deficiency anemia * Had EGD and colonoscopy in November 2022 which showed normal esophagus and small hiatal hernia as well as erythematous duodenopathy and colonoscopy showed pancolonic diverticulosis with nonbleeding internal hemorrhoids * Given IV iron during this admission * Follow-up with gastroenterology on outpatient basis * Hb today is up to 7.9. Was 7.1 yesterday. DVT prophylaxis: Lovenox Charges/Coding Visit Charges Inpatient E&M: 43645 Subs Hosp L2
[2024-03-15 15:13] LABS: Vancomycin, Trough Level 10.4 ug/mL (5.0-15.0)
[2024-03-15] MEDS: Vancomycin HCl 1,750 MG in 0.9% Normal Saline (500mL Bag) 500 ML 250 MG IV (16:51)
--- NOTE | 2024-03-15 16:53 | PCM.RX.CS ---
Consult Antibiotic Management Pharmacy has been consulted to manage selected antibiotic: Vancomycin Type of Intervention Type of Consult: Follow-up Suspected Infection Suspected Infection: Pneumonia Prior Doses of Antibiotics Prior Doses of Antibiotics Received/Current Regimen: Vancomycin 1250 mg Q12H last dose given 03/15/24 @ 5484 Labs Labs: Sodium 139 mmol/L (136-145) 03/15/24 07:40 Potassium 4.5 mmol/L (3.5-5.1) 03/15/24 07:40 Chloride 105 mmol/L (98-107) 03/15/24 07:40 Carbon Dioxide 29.0 mmol/L (21.0-32.0) 03/15/24 07:40 Anion Gap 5 (5-15) 03/14/24 02:58 BUN 14 mg/dL (7-18) 03/15/24 07:40 Creatinine 0.94 mg/dL (0.70-1.30) 03/15/24 07:40 Est GFR (MDRD) Af Amer 108 mL/min (>60) 03/15/24 07:40 Est GFR (MDRD) Non-Af 89 mL/min (>60) 03/15/24 07:40 BUN/Creatinine Ratio 14.9 RATIO (10-20) 03/15/24 07:40 Glucose 132 mg/dL (74-106) H 03/15/24 07:40 Vancomycin Trough 10.4 ug/mL (5.0-15.0) 03/15/24 14:30 Microbiology Microbiology: Microbiology 03/14/24 03:35 Urine, Clean Catch Legionella Antigen - Final 03/14/24 03:35 Urine, Clean Catch Streptococcus pneumoniae Antigen (M - Final 03/13/24 23:50 Mucosa - Nose Respiratory Panel (PCR) - Final 03/13/24 22:40 Mucosa - Nose SARS-CoV-2, Influenza & RSV (PCR) - Final Dosing Weight Weight used for dosin kg Estimated Creatinine Clearance Estimated Creatinine Clearance: ~ 91 Goal Trough Goal Trough: 15-20 mcg/mL Pharmacy Plan for Drug Dosing Pharmacy Plan for Drug Dosing: Vancomycin trough = 10.4, increase to 1750 mg Q12H. Pharmacy Service will continue to monitor and adjust dosing as required. Follow-Up Labs Follow-Up Labs: Trough: Vancomycin Date/Time Labs Ordered Labs to be done on [date and time ordered]: 03/17/24 @ 0400
[2024-03-15] MEDS: 0.9% Saline Lock 10 ML Syringe IV ×2 (20:07→22:01)
[2024-03-15] MEDS: Ondansetron 4 MG/2 ML Vial IV (20:07)
[2024-03-16 03:26] VITALS: BP 113/71; PULSE 92; RESP 16; TEMP 36.5; O2SAT 95
[2024-03-16] MEDS: Ibuprofen 600 MG Tablet PO (04:01)
[2024-03-16] MEDS: Vancomycin HCl 1,750 MG in 0.9% Normal Saline (500mL Bag) 500 ML 250 MG IV (04:09)
[2024-03-16 06:00] VITALS: BMI 23.4
[2024-03-16] MEDS: Na Biphos/Potassium Phosphate PACKET 1 PACKET PO ×2 (06:35→08:53)
[2024-03-16 07:25] VITALS: PULSE 68; RESP 18; O2SAT 98
[2024-03-16] MEDS: Ipratropium/Albuterol Sulfate 3 ML AMPUL.NEB INHALATION ×2 (07:25→11:39)
[2024-03-16 08:34] LABS: Absolute Neutrophil Count 14.3 X10^3/uL (2.0-7.7); Basophil# 0.05 X10^3/uL; Basophil% 0.3 % (0-1); Hematocrit 26.5 % (40-54); Hemoglobin 7.3 g/dL (13.0-16.5); Lymphocyte % 10.6 % (19-41); Mean Corp Hgb Conc 27.5 g/dL (32-36); Mean Corpuscular Hgb 19.9 pg (27.0-32.0); Mean Corpuscular Volume 72.4 fL (80-94); Mean Platelet Vol. 9.8 fl (6.2-12.0); Monocyte# 0.84 X10^3/uL; Monocyte% 4.7 % (0-10); NRBC Flagged by Analyzer 0.8 % (0-5); Neutrophil # 14.29 X10^3/uL (2.7-7.7); Platelet Count 523 K/mm3 (150-450); RBC Distribution Width CV 18.4 % (11.6-14.6); RBC Distribution Width SD 45.3 fl (35.1-43.9); Red Blood Count 3.66 M/mm3 (4.6-6.2); White Blood Count 17.9 K/mm3 (4.4-11.0)
[2024-03-16 08:50] VITALS: BP 123/76; PULSE 98; RESP 24; TEMP 36.5; O2SAT 93
[2024-03-16] MEDS: levoFLOXacin IV 750 MG/150 ML BAG 100 MG IV (08:52)
[2024-03-16] MEDS: guaiFENesin 1,200 MG Tablet 1200 MG PO (08:53)
[2024-03-16] MEDS: Sertraline 100 MG Tablet PO (08:53)
[2024-03-16] MEDS: Pantoprazole Sodium 40 MG Tablet PO (08:53)
[2024-03-16 09:07] LABS: Anion Gap 3 (5-15); BUN 14 mg/dL (7-18); BUN/Creat Ratio 15.2 RATIO (10-20); Calcium,Total 8.6 mg/dL (8.5-10.1); Chloride 105 mmol/L (98-107); Creatinine, Serum 0.92 mg/dL (0.70-1.30); EST Glomerular Filtration Rate 91 mL/min (>60); Est Glom Filt Rate - Afr Amer 110 mL/min (>60); Estimated Creatinine Clearance 95.88 ml/min; Glucose 133 mg/dL (74-106); Potassium 4.4 mmol/L (3.5-5.1); Sodium Level 137 mmol/L (136-145)
[2024-03-16] MEDS: Sodium Ferric Gluconat 250 MG in 0.9% Normal Saline 250 ML 135 MG IV (10:35)
--- NOTE | 2024-03-16 10:35 | DCINST_ITS ---
Discharge Instructions Diet Discharge Diet: Low fat / Low cholesterol DC O2, CPAP, BIPAP needs Home O2 Discharge instructions: Yes Type of respiratory needs?: Oxygen Oxygen frequency: Continuous Continuous oxygen liters per minute: 4 Dressing / Incision Discharge Activity: Return to Normal Activity Weight Bearing Status: Weight bearing as tolerated Dressing / Incision Call your doctor if you observe: Fever of 101 or Higher, Shortness of breath, Dizziness, Swelling in the ankles and Chest pain Follow Up Care Test Results: Test results from this visit will be discussed in further detail at your follow- up appointment, if applicable. Discharge Plan Admission Admit Date/Time: 03/14/24 01:57 Primary Reason for Your Visit: COPD exacerbation, pneumonia Attending Provider: Sharita Rich Primary Care Provider: Antwan Buchanan Consulting Providers: Joie Lopez; Júnior Caraballo Instructions Patient Instructions: COPD Controlled Breathing Dc Discharge Orders/Prescriptions Prescriptions: New levofloxacin 750 mg tablet 750 mg PO DAILY Qty: 4 0RF prednisone 20 mg tablet 40 mg PO DAILY Qty: 10 0RF Continued sertraline 100 MG tablet 100 mg PO DAILY Patient Comments: MENTAL HEALTH trazodone 50 mg tablet 100 - 150 mg PO PRN Patient Comments: take 1 to 3 tablets by mouth at bedtime pantoprazole 40 mg tablet,delayed release (DR/EC) 40 mg PO BID Patient Comments: take 1 tablet by mouth twice a day ipratropium-albuterol 0.5 mg-3 mg(2.5 mg base)/3 mL Solution For Nebulization 3 ml INHALATION Q4H PRN (Reason: breathing) albuterol sulfate [Ventolin HFA] 90 mcg/actuation HFA aerosol inhaler 2 puff inhalation Q4H PRN PRN (Reason: Wheezing) Qty: 1 0RF ferrous sulfate [Iron (ferrous sulfate)] 325 mg (65 mg iron) tablet 325 mg PO DAILY Qty: 90 0RF fluticasone propion-salmeterol [Advair HFA] 230-21 mcg/actuation HFA aerosol inhaler 2 puff inhalation BID Spiriva Respimat 2.5 mcg/actuation mist 2 puff inhalation DAILY Referrals / Follow Up: Antwan Buchanan, [Primary Care Provider] - Within 1 Week Disposition Disposition (needs filled in before D/C Order can be placed): Home, Self Care
--- NOTE | 2024-03-16 10:37 | DS.PCM_ITS ---
Providers Date of Admission: 03/14/24 Date of Discharge: 03/16/24 Primary Care Physician: Dr. Antwan Buchanan, DO Consultations 03/14/24 02:48 Consult: Mobile Phone Salesperson / Pulmonary Medicine Routine Consulting Provider: Intensivists/Pulmonary Med Reason for Consult: Acute hypoxic respiratory failure EMERGENT Consult: No MD Notified: Yes Date Notified: 03/14/24 Time Notified: 06:31 Method of Notification: Text Reason For Visit: ACUTE HYPOXIC RESPIRATORY FAILURE Diagnosis Discharge Diagnosis (1) COPD exacerbation: Status: Chronic Code(s): J44.1 - Chronic obstructive pulmonary disease with (acute) exacerbation (2) Mucus plugging of bronchi: Status: Acute Code(s): T17.500A - Unspecified foreign body in bronchus causing asphyxiation, initial encounter (3) Acute on chronic hypoxic respiratory failure: Status: Chronic Code(s): J96.21 - Acute and chronic respiratory failure with hypoxia Plan # Acute on chronic hypoxic respiratory failure due to COPD exacerbation and pneumonia * Currently on his baseline 4 L of oxygen. * He did require BiPAP when he came in to the hospital but was weaned off of BiPAP onto his baseline 4 L of oxygen. * On IV Solu-Medrol 40 mg Q8 and on antimicrobials with vancomycin and Levaquin. Antibiotics transition to p.o. Levaquin today for 7-day course. * Also Mucinex. * Pulmonology on board. Breathing treatments bronchodilators. Titrate oxygen to maintain saturation above 90%. * #Lactic acidosis: Resolved #Iron deficiency anemia * Had EGD and colonoscopy in November 2022 which showed normal esophagus and small hiatal hernia as well as erythematous duodenopathy and colonoscopy showed pancolonic diverticulosis with nonbleeding internal hemorrhoids * Given IV iron during this admission * Follow-up with gastroenterology on outpatient basis * Hb today is up to 7.9. Was 7.1 yesterday. DVT prophylaxis: Lovenox Medications at Discharge Home Medications sertraline 100 mg tablet 100 mg PO DAILY mood 11/19/14 pantoprazole 40 mg tablet,delayed release 40 mg PO BID stomache 03/20/21 trazodone 50 mg tablet 100 - 150 mg PO PRN sleep 03/20/21 ipratropium 0.5 mg-albuterol 3 mg (2.5 mg base)/3 mL nebulization soln 3 ml inhalation Q4H PRN breathing 08/15/21 albuterol sulfate 90 mcg/actuation aerosol inhaler (Ventolin HFA) 2 puff inhalation Q4H PRN PRN Wheezing ##1 02/10/22 ferrous sulfate 325 mg (65 mg iron) tablet (Iron (ferrous sulfate)) 325 mg PO DAILY supplement #90 tabs 11/14/22 fluticasone propionate 230 mcg-salmeterol 21 mcg/actuation HFA inhaler (Advair HFA) 2 puff inhalation BID breathing 03/13/24 tiotropium bromide 2.5 mcg/actuation mist for inhalation (Spiriva Respimat) 2 puff inhalation DAILY breathing 03/13/24 levofloxacin 750 mg tablet 750 mg PO DAILY #4 tabs 03/16/24 prednisone 20 mg tablet 40 mg (2 x 20 mg) PO DAILY #10 tabs 03/16/24 Hospital Course Operations None Procedures None Summary of Care Provided Minutes Spent on Discharge: 45 Hospital Course: Patient is a 53-year-old male with past medical history as outlined was admitted through the ED on 03/13/2024 with complaint of worsening shortness of breath. His symptoms had been going on for about 2 days prior to admission. He did not have a cough. He did have chronic respiratory failure and will 4 L of oxygen at baseline. In the ED he was tripoding and hypoxic and required BiPAP. On admission he was tachycardic and tachypneic. He was on BiPAP as stated. Chest x-ray showed right upper lobe pneumonia and emphysematous changes. CT of the chest showed no evidence of PE or dissection and showed extensive mucous plugging in the left lower lobe bilaterally with severe panlobular emphysematous changes and extensive tubular bronchiectasis in the lower lobes bilaterally and subsegmental atelectasis in the lung bases bilaterally. EKG showed no acute ST changes. He was admitted and managed for acute on chronic hypoxic respiratory failure due to COPD exacerbation and pneumonia. Was placed on IV Solu-Medrol 40 mg every 8 and started on vancomycin and Levaquin due to history of MRSA pneumonia. Pulmonology was consulted. Patient shortness of breath gradually improved and he felt better. He was weaned down to his 4 L of oxygen. He was discharged on 03/16/2024 on p.o. levofloxacin for a 4-day course to complete a 7- day course of antibiotics. He was also discharged on p.o. prednisone 40 mg daily for 5 days. 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 Patient seen and examined prior to discharge. He had no complaints and felt well. He was ready to be discharged. Review of systems otherwise negative. Labs and vitals reviewed. Home medication reviewed and reconciled. Of note patient required 6 L of oxygen with ambulation and 4 L at rest. Physical Exam Const alert, oriented x3, no apparent distress, average body habitus, healthy appearing and well nourished General Appearance: cooperative, comfortable and well kempt Orientation / Consciousness: awake Exam Limitations: no limitations HEENT normocephalic, head/scalp atraumatic, hearing grossly normal bilaterally and moist oral mucous membranes Mouth: oral and palatal mucosa normal Eyes PERRL and EOMs intact bilaterally; Negative for conjunctivae normal Neck no lymphadenopathy and supple Neck Narrative: Trachea midline, no thyroid enlargement Lymph Lymphatic: no lymphadenopathy noted and no lymphedema noted Resp no retractions, no use of accessory muscles and No clear to auscultation bilaterally Resp Narrative: mildly diminished breath sounds bibasally, mild bilateral crackles, no wheezing. On 4L of oxygen which is his baseline. Cardio regular rate, regular rhythm, S1 normal heart sound, S2 normal heart sound, no murmurs, no rub, no gallops and no clicks Cardio Narrative: Mild tachycardia GI normal to inspection, nondistended, normoactive bowel sounds, soft to palpation, non-tender and non-distended Extremity normal capillary refill, no clubbing, cyanosis or edema and no calf tenderness Extremity Narrative: Pedal and radial pulses are 2+ General Extremity: no tenderness to palpation of joints or extremities Skin skin turgor normal, no jaundice, no petechiae and no mottling Skin Narrative: Skin is pale General Skin Exam: no breakdown Neuro oriented x3, CN's II-XII intact bilaterally, moves all extremities, no focal motor deficits and no sensory deficits noted Speech: speech normal Motor Exam: general weakness Psych thought process normal, cooperative and affect normal Appearance: appropriate Weight / BMI Weight Weight: 163 lb 9.328 oz Body Mass Index (BMI) 23.4 ABG / Lab / Microbiology Data 03/16/24 07:57 03/16/24 07:57 Laboratory: Laboratory Results - last 24 hr 03/16/24 07:57: WBC 17.9 H, RBC 3.66 L, Hgb 7.3 L, Hct 26.5 L, MCV 72.4 L, MCH 19.9 L, MCHC 27.5 L, RDW Std Deviation 45.3 H, RDW Coeff of Maya 18.4 H, Plt Count 523 H, MPV 9.8, Immature Gran % (Auto) 4.400 H, Neut % (Auto) 80.0 H, L ymph % (Auto) 10.6 L, Cottle % (Auto) 4.7, Eos % (Auto) 0.0, Baso % (Auto) 0.3, A bsolute Neuts (auto) 14.3 H, Absolute Lymphs (auto) 1.90, Nucleated RBC % 0.8, Sodium 137, Potassium 4.4, Chloride 105, Carbon Dioxide 29.0, Anion Gap 3 L, BUN 14, Creatinine 0.92, Estim Creat Clear Calc 95.88, Est GFR (MDRD) Af Amer 110, Est GFR (MDRD) Non-Af 91, BUN/Creatinine Ratio 15.2, Glucose 133 H, Calcium 8.6 Microbiology: Microbiology 03/13/24 22:30 Blood Culture (Wb) - Anticubital Right Blood Culture - Preliminary No growth in 48 hours. 03/13/24 22:25 Blood Culture (Wb) - Anticubital Left Blood Culture - Preliminary No growth in 48 hours. 03/14/24 03:35 Urine, Clean Catch Legionella Antigen - Final 03/14/24 03:35 Urine, Clean Catch Streptococcus pneumoniae Antigen (M - Final 03/13/24 23:50 Mucosa - Nose Respiratory Panel (PCR) - Final 03/13/24 22:40 Mucosa - Nose SARS-CoV-2, Influenza & RSV (PCR) - Final D/C Instructions Discharge Diet: Low fat / Low cholesterol Discharge Activity: Return to Normal Activity Weight Bearing Status: Weight bearing as tolerated Call your doctor if you observe: Fever of 101 or Higher, Shortness of breath, Dizziness, Swelling in the ankles and Chest pain DC O2, CPAP, BIPAP Needs RN Home O2 Qualification: Home O2 Qualification: Is the patient on home oxygen Yes 03/16/24 12:59 Home O2 Qualification: AT REST 1-Pulse Ox at rest 87 03/16/24 12:59 1- Oxygen flow rate at rest 3 03/16/24 12:59 2-Pulse Ox at rest 92 03/16/24 12:59 2- Oxygen flow rate at rest 4 03/16/24 12:59 Home O2 Qualification: WITH AMBULATION 1- Pulse Ox with ambulation 85 03/16/24 12:59 1- Oxygen Flow Rate with 4 03/16/24 12:59 ambulation 2- Pulse Ox with ambulation 90 03/16/24 12:59 2- Oxygen Flow Rate with 6 03/16/24 12:59 ambulation PSN CPAP & BiPAP: BiPAP & CPAP Settings per PSN Mode BiPAP 03/14/24 23:35 Bipap Delivery Device Face Mask 03/14/24 00:40 BiPAP Inspiratory Pressure 14 03/14/24 00:40 BiPAP Expiratory Pressure 8 03/14/24 00:40 BiPAP Rate 12 03/14/24 00:40 Fraction of Inspired Oxygen ( 30 03/14/24 00:40 FIO2) Home O2 Discharge instructions: Yes Type of respiratory needs?: Oxygen (4l at rest, 6L with ambulation) Oxygen frequency: Continuous Continuous oxygen liters per minute: 4 DC home with Oxygen: Yes Home O2 MD Review: I have reviewed the oxygen testing, and the patient qualifies for home oxygen equipment and portability. The patient is mobile in the home and the community. Meaningful Use Info Meaningful Use Meaningful Use Diagnoses (Choose all that apply): None applicable Ischemic Stroke Statin Dosing Therapy Reference: STATIN DOSE THERAPY REFERENCE: * Patients > 75 years receive moderate or high dose statin therapy. * Patients 75 years or YOUNGER should receive HIGH intensity statin dose unless contraindicated. You will be required to document reason for non-treatment if statin daily dose does not meet guidelines. HIGH DOSE STATIN THERAPY DAILY Atorvastatin > than or = to 40 mg Rosuvastatin > than or = to 20 mg Amlodipine + Atorvastatin > than or = to 2.5/40 mg Ezetimibe + Simvastatin 10/80 mg Simvastatin 80mg Discharge Plan Admission Admit Date/Time: 03/14/24 01:57 Primary Reason for Your Visit: COPD exacerbation, pneumonia Attending Provider: Sharita Rich Primary Care Provider: Antwan Buchanan Consulting Providers: Joie Lopez; Júnior Caraballo Instructions Patient Instructions: COPD Controlled Breathing Dc Discharge Orders/Prescriptions Prescriptions: New levofloxacin 750 mg tablet 750 mg PO DAILY Qty: 4 0RF prednisone 20 mg tablet 40 mg PO DAILY Qty: 10 0RF Continued sertraline 100 MG tablet 100 mg PO DAILY Patient Comments: MENTAL HEALTH trazodone 50 mg tablet 100 - 150 mg PO PRN Patient Comments: take 1 to 3 tablets by mouth at bedtime pantoprazole 40 mg tablet,delayed release (DR/EC) 40 mg PO BID Patient Comments: take 1 tablet by mouth twice a day ipratropium-albuterol 0.5 mg-3 mg(2.5 mg base)/3 mL Solution For Nebulization 3 ml INHALATION Q4H PRN (Reason: breathing) albuterol sulfate [Ventolin HFA] 90 mcg/actuation HFA aerosol inhaler 2 puff inhalation Q4H PRN PRN (Reason: Wheezing) Qty: 1 0RF ferrous sulfate [Iron (ferrous sulfate)] 325 mg (65 mg iron) tablet 325 mg PO DAILY Qty: 90 0RF fluticasone propion-salmeterol [Advair HFA] 230-21 mcg/actuation HFA aerosol inhaler 2 puff inhalation BID Spiriva Respimat 2.5 mcg/actuation mist 2 puff inhalation DAILY Referrals / Follow Up: Antwan Buchanan DO [Primary Care Provider] - Within 1 Week Disposition Disposition (needs filled in before D/C Order can be placed): Home, Self Care
--- NOTE | 2024-03-16 11:22 | CASEMGMT ---
Addendum entered by Seferino Todd 03/16/24 16:10: Call received from Rosario @ [employer] [place], requesting home O2 testing documentation and new script for O2, stating pt needs to re-qualify for home O2. She stated pt's insurance requires [place] for O[place], stating pt has not been compliant w/following up with his physician in the past and is do for new approval. She also requested F2F documentation by the physician for the O2. Rosario made aware home O2 testing and new script for O2 was sent earlier today via [employer], with note attached stating F2F documentation would be sent when it was available. ADELIA HOFFMANN informed her that Dr Rich just updated the F2F w/appropriate documentation for the O2 and this RN CM was just getting ready to send this via [employer] as well. Rosario checked [employer] while on the phone with this assembly instructions writer and confirmed she received the original forms. She also states that the tank that was delivered to pt in the hospital today was a loaner tank and that they would be picking that back up from pt's home and a new delivery ticket will be sent, once insurance approves the O2 and that they will take care of this on their end. RN SHUN made her aware that 4 tanks (not just one loaner tank) were delivered by [facility] today and pt was discharged home today. She also initially stated that pt would need a larger tank to provide 6 L/M, stating pt's concentrator only goes up to 5 L/M. RN SHUN informed her that Aleyda from [employer] informed this assembly instructions writer today that pt's concentrator goes up to 10 L/M. Rosario then checked on this again and confirmed his is a 10 L/M, stating she was not aware of that. F2F documentation for the O2 sent via [employer] at this time. Rosario was asked to call this RN CM by 4:30 PM today if further info is needed. Addendum entered by Seferino Todd 03/16/24 13:39: Per Rosanne @ [employer], pt needs to re-qualify for O2, stating testing must show that he drops below 89% even @ rest, even though his baseline home O2 is @ 4 L/M. Home O2 testing has been completed. Pt still qualifies for 4 L/M @ rest (was pt's baseline) and now 6 L/M w/exertion. Pt is aware and this was added to his discharge plan. Script obtained from Dr Rich and sent to [facility] [employer] via [employer]. Pt verifies he has a pulse ox @ home. [facility] has delivered 4 portable O2 tanks to his room. Per [facility], the regulator on pt's portable tanks go up to 10 L/M and his concentrator also goes up to 10 L/M. Pt is aware. Discussed Palliative care with pt and questions answered. Also provided him w/Palliative info sheet. He is interested in a referral. Dr Rich made aware and order received. Referral sent to [facility] via secure e-mail. Original Note: ADELIA HOFFMANN NOTE: Pt being discharged. ADELIA HOFFMANN to room. He states [facility] told him yesterday that they would deliver 4 portable O2 tanks to [facility] today for him to take home. He states his friend, Rene, will be taking him home today and he can assist him w/getting the portable tanks into his home. He also confirms he can get his medications from [facility] today. Call placed to [facility] and spoke w/Yadi. She was made aware pt is discharging home today from [facility]. She verified that 4 tanks are scheduled to be delivered to pt in [facility] hospital today, to room 116. She states the local driver will call pt w/ETA of delivery. Pt made aware. Corina GRESHAM RN, CM
[2024-03-16 11:40] VITALS: PULSE 105; RESP 18
[2024-03-16 12:00] VITALS: O2SAT 87; O2SAT 90; O2SAT 92
[2024-03-16 12:59] VITALS: O2SAT 85; O2SAT 87; O2SAT 90; O2SAT 92
== END 2024-03-16 15:26 | disposition home or self-care (01) | DRG 140 ==
LOC: ED 03-14 01:48 → ICU 03-14 02:12 → PCU 03-14 14:45
PROVIDERS: Hospitalist; Admitting Provider Internal Medicine; Emergency Provider Emergency Medicine; PCP Student in an Organized Health Care Education/Training Program; Visit Provider Student in an Organized Health Care Education/Training Program
DX: J44.1 Chronic obstructive pulmonary disease with (acute) exacerbation (principal); J96.21 Acute and chronic respiratory failure with hypoxia; T17.500A Unspecified foreign body in bronchus causing asphyxiation, initial encounter; J47.0 Bronchiectasis with acute lower respiratory infection; J18.9 Pneumonia, unspecified organism; E87.20 Acidosis, unspecified; D50.9 Iron deficiency anemia, unspecified; K44.9 Diaphragmatic hernia without obstruction or gangrene; K64.8 Other hemorrhoids; K57.30 Diverticulosis of large intestine without perforation or abscess without bleeding; J98.11 Atelectasis; J44.0 Chronic obstructive pulmonary disease with (acute) lower respiratory infection; Z79.891 Long term (current) use of opiate analgesic; Z79.51 Long term (current) use of inhaled steroids; Z87.891 Personal history of nicotine dependence; Z86.73 Personal history of transient ischemic attack (TIA), and cerebral infarction without residual deficits; Z86.14 Personal history of Methicillin resistant Staphylococcus aureus infection
CPT/HCPCS: 36415; 36600; 71045; 71275; 80048; 80053; 80069; 80202; 82728; 82803; 83540; 83550; 83605; 83735; 83880; 84100; 84145; 84443; 85014; 85018; 85025; 85027; 85045; 87040; 87077; 87449; 87631; 87633; 94002; 94003; 94640; 94668; 97162; 97165; 97802; 99252; 99285; Q9967; A4216; G0463; J2405; J2916

== ENCOUNTER 2024-03-22 00:08 | Emergency (ER) | payer MEDICAID, SELFPAY ==
[2023-04-29 14:10] VITALS: BMI 22.1
[2024-03-22] VITALS (7 sets, daily range): BP systolic 114–147; BP diastolic 59–105; PULSE 88–130; RESP 16–25; TEMP 36.8–37.4; O2SAT 94–98; BMI 22.7
--- NOTE | 2024-03-22 00:34 | CT_ITS ---
INDICATION: hypoxia EXAMINATION: - CTA Chest WO/W Contrast Injection A radiation dose optimization technique was used for this scan. RADIATION DOSAGE (If Supplied By Facility): CTDIvol/DLP = ( 11.47 ) / ( 369.12 ) mGy/mGycm COMPARISON: Chest CT 03/14/2024 and 06/05/2014. FINDINGS: Contrast enhanced serial CTA axial images through the chest with coronal and sagittal reformatted series. Additional dedicated coronal and sagittal MIP reformatted series provided as well. IV Contrast dosage and agent: 100 cc Isovue-370 IV. MEDIASTINUM: No acute thoracic aortic abnormality. No pulmonary artery filling defects. Again noted mediastinal adenopathy, stable from only 8 days prior (new from 2014). LUNG PARENCHYMA: Severe diffuse emphysematous lung changes with bleb formation, including giant left posterior bleb. Diffuse bronchiectasis with mucus filling these dilated airways, right lower lobe predominant. PLEURA: No pleural effusion. No pneumothorax. BONES: Osseous structures are unremarkable for age. UPPER ABDOMEN: Fatty liver. CT/CTA Chest W/WO Contrast IMPRESSION: Stable chest with diffuse bronchiectasis including mucus filling these dilated airways, right lower lobe predominant. Likely associated mediastinal adenopathy. Recommend follow-up to document stability as neoplastic process is not excluded. Severe diffuse emphysematous lung changes with bleb formation, including giant left posterior bleb. No pulmonary embolus or acute aortic abnormality. Fatty liver. Electronically Signed: Doyle Jaramillo MD at 2:41 EST ,
[2024-03-22] MEDS: Ipratropium/Albuterol Sulfate 3 ML AMPUL.NEB INHALATION (00:40)
[2024-03-22 00:49] LABS: Absolute Lymphocyte Count 0.84 X10^3/uL (0.83-4.51); Absolute Neutrophil Count 27.3 X10^3/uL (2.0-7.7); Basophil# 0.06 X10^3/uL; Basophil% 0.2 % (0-1); Eosinophil# 0.07 X10^3/uL; Eosinophils% 0.2 % (0-5); Hematocrit 33.7 % (40-54); Hemoglobin 9.6 g/dL (13.0-16.5); Lymphocyte # 0.84 X10^3/ul (0.83-4.51); Lymphocyte % 2.8 % (19-41); Mean Corp Hgb Conc 28.5 g/dL (32-36); Mean Corpuscular Hgb 21.3 pg (27.0-32.0); Mean Corpuscular Volume 74.7 fL (80-94); Mean Platelet Vol. 9.6 fl (6.2-12.0); Monocyte# 1.82 X10^3/uL; NRBC Flagged by Analyzer 0 % (0-5); Neutrophil # 27.29 X10^3/uL (2.7-7.7); Neutrophil % 89.6 % (47-70); POSITIVE COUNT YES; POSITIVE DIFFERENTIAL YES; POSITIVE MORPHOLOGY YES; Platelet Count 499 K/mm3 (150-450); RBC Distribution Width CV 23.9 % (11.6-14.6); RBC Distribution Width SD 47.8 fl (35.1-43.9); Red Blood Count 4.51 M/mm3 (4.6-6.2)
[2024-03-22 00:56] LABS: Lactic Acid 1.9 mmol/L (0.4-1.9)
[2024-03-22 01:02] LABS: Anion Gap 6 (5-15); BUN 19 mg/dL (7-18); BUN/Creat Ratio 19.4 RATIO (10-20); Calcium,Total 8.8 mg/dL (8.5-10.1); Chloride 105 mmol/L (98-107); Creatinine, Serum 0.98 mg/dL (0.70-1.30); EST Glomerular Filtration Rate 85 mL/min (>60); Est Glom Filt Rate - Afr Amer 103 mL/min (>60); Estimated Creatinine Clearance 88.54 ml/min; Glucose 149 mg/dL (74-106); Magnesium 1.8 mg/dL (1.6-2.6); Potassium 3.9 mmol/L (3.5-5.1); Sodium Level 134 mmol/L (136-145)
[2024-03-22 01:07] LABS: Differential Indicated SCAN CRITERIA MET; White Blood Count 30.4 K/mm3 (4.4-11.0)
[2024-03-22 01:12] LABS: Procalcitonin 1.03 ng/mL (0.00-0.09)
[2024-03-22 01:25] LABS: BNP,B-Type NATRIURETIC PEPTIDE 4.5 pg/mL (0-100)
[2024-03-22] MEDS: Piperacil/Tazobactam 3.375 GM in 0.9% Normal Saline (50mL MB+) 50 ML IV (01:31)
[2024-03-22] MEDS: 0.9% Normal Saline (1000mL) 1,000 ML 999 ML IV ×2 (01:32→02:54)
[2024-03-22 01:38] LABS: Anisocytosis 2+; Differential Comment SCANNED; Hypochromasia 1+; Ovalocyte 1+; Stomatocyte 1+
[2024-03-22] MEDS: Oseltamivir Phosphate 75 MG Capsule PO (02:26)
[2024-03-22] MEDS: Vancomycin IV 1,000 MG/200 ML BAG 200 MG IV (02:26)
--- NOTE | 2024-03-22 03:15 | EDS_ITS ---
HPI History of Present Illness Chief Complaint: Shortness of Breath Informant: patient Narrative Narrative: Patient is 53-year-old male with past medical history of COPD and iron deficiency anemia who was recently admitted to the hospital secondary to respiratory distress needing BiPAP secondary to bronchiectasis and mucous plugging. He was kept in the hospital for multiple days and discharged home. He states he was prescribed prednisone and an antibiotic but did not pick these up. He states overall he has been feeling at his baseline but then today he began with subjective fevers and chills and this evening worsening shortness of breath. With concern he will progress to need for admission or BiPAP he presents to the hospital for evaluation [facility] Medical History Chronic hypoxic respiratory failure History and physical examination, immigration Exposure to COVID-19 virus Alcohol abuse Ulcer Smoker TIA (transient ischemic attack) History of bacterial pneumonia Depression Anxiety COPD (chronic obstructive pulmonary disease) History of tobacco use Home Medications ?Medication ?Instructions ?Recorded ?Last Taken ?Type sertraline 100 mg tablet 100 mg PO DAILY mood 11/19/14 10/19/22 10:00 History pantoprazole 40 mg tablet,delayed 40 mg PO BID stomache 03/20/21 10/19/22 10:00 History release trazodone 50 mg tablet 100 - 150 mg PO PRN sleep 03/20/21 03/18/21 History ipratropium 0.5 mg-albuterol 3 mg 3 ml inhalation Q4H PRN breathing 08/15/21 10/19/22 10:00 History (2.5 mg base)/3 mL nebulization soln albuterol sulfate 90 mcg/actuation 2 puff inhalation Q4H PRN PRN 02/10/22 10/19/22 10:00 Rx aerosol inhaler (Ventolin HFA) Wheezing ##1 ferrous sulfate 325 mg (65 mg 325 mg PO DAILY supplement #90 tabs 11/14/22 Unknown Rx iron) tablet (Iron (ferrous sulfate)) fluticasone propionate 230 2 puff inhalation BID breathing 03/13/24 Unknown History mcg-salmeterol 21 mcg/actuation HFA inhaler (Advair HFA) tiotropium bromide 2.5 2 puff inhalation DAILY breathing 03/13/24 Unknown History mcg/actuation mist for inhalation (Spiriva Respimat) levofloxacin 750 mg tablet 750 mg PO DAILY #4 tabs 03/16/24 Unknown Rx prednisone 20 mg tablet 40 mg (2 x 20 mg) PO DAILY #10 tabs 03/16/24 Unknown Rx ipratropium 0.5 mg-albuterol 3 mg 3 ml inhalation Q4H PRN shortness 03/22/24 Unknown Rx (2.5 mg base)/3 mL nebulization of breath/wheezing #180 mL soln levofloxacin 750 mg tablet 750 mg PO DAILY 5 days #5 tabs 03/22/24 Unknown Rx nebulizer and compressor #1 ea 03/22/24 Unknown Rx oseltamivir 75 mg capsule (Tamiflu) 75 mg PO BID 5 days #10 caps 03/22/24 Unknown Rx prednisone 20 mg tablet 40 mg (2 x 20 mg) PO DAILY 5 days 03/22/24 Unknown Rx #10 tabs Allergy/AdvReac Type Severity Reaction Status Date / Time tramadol HCl (From [facility]) Allergy Swelling Verified 03/22/24 00:13 codeine AdvReac PT UNSURE Verified 03/22/24 00:13 OF REACTION Family History Other Cancer Diabetes Heart disease Hypertension Surgical History History of herniorrhaphy History of tonsillectomy History of chest tube placement History of tracheostomy Social History (Updated 03/14/24 @ 02:[address] Joie Lopez DO) household members: none Smoking Status: Former smoker how long ago did patient quit smoking: Patient quit smoking 2 years ago alcohol intake: current alcohol intake frequency: holidays/special occasions only substance use type: does not use ROS ROS ED Constitutional Constitutional ED: Reports fever(s) and subjective; Denies chills ENT ENT ED: Reports rhinorrhea; Denies sore throat Cardiovascular Cardiovascular: Denies chest pain Respiratory/Chest Respiratory/Chest: Reports cough and dyspnea Gastrointestinal Gastrointestinal: Denies abdominal pain, diarrhea, nausea or vomiting Genitourinary Genitourinary ED: Denies dysuria Musculoskeletal Musculoskeletal: Reports myalgias Integumentary Denies rash Neurologic Neurologic: Denies headache(s) Hematologic/Lymphatic Hematologic/Lymphatic: Denies easy bleeding or easy bruising Allergic/Immunologic Allergic/Immunologic ED: Denies mouth swelling or tongue swelling EXAM Physical Exam Const Vital Signs: 03/22/24 00:09 03/22/24 00:14 03/22/24 00:41 Temperature 99.3 F H Temperature Source Oral Pulse Rate 130 H 118 H Respiratory Rate 21 H 24 H Respiratory Effort Short of Breath Labored Respiratory Depth Deep Respiratory Pattern Tachypnea Tachypnea Blood Pressure 121/90 H Blood Pressure Mean 100 Pulse Ox 96 Oxygen Delivery Method Nasal Cannula Nasal Cannula Oxygen Flow Rate (L/min) 6 6 03/22/24 01:13 03/22/24 02:00 03/22/24 03:00 Temperature 98.3 F 98.2 F 98.2 F Temperature Source Oral Oral Oral Pulse Rate 110 H 88 100 Respiratory Rate 25 H 18 20 H Respiratory Effort Respiratory Depth Respiratory Pattern Blood Pressure 127/79 H 121/59 H 147/105 H Blood Pressure Mean 95 79 119 Pulse Ox 95 95 95 Oxygen Delivery Method Nasal Cannula Nasal Cannula Nasal Cannula Oxygen Flow Rate (L/min) 6 6 6 03/22/24 03:37 Temperature 98.5 F Temperature Source Pulse Rate 98 Respiratory Rate 16 Respiratory Effort Respiratory Depth Respiratory Pattern Blood Pressure 114/72 Blood Pressure Mean 86 Pulse Ox 94 Oxygen Delivery Method Oxygen Flow Rate (L/min) Positive well nourished and well developed General Appearance ED: well developed; Negative for pallor HEENT HEENT Narrative: Nasal mucosa is hyperemic and boggy No tongue or lip swelling no oral lesions no airway edema or compromise There is cobblestoning the posterior pharynx consistent with sinus drainage Eyes PERRL and EOMs intact bilaterally General Eye ED: Negative for pale conjunctiva or scleral icterus Neck supple and no JVD Chest Wall palpation of chest normal Resp Resp Narrative: Breath sounds are diminished throughout with diffuse inspiratory and expiratory wheeze. There is rhonchi noted in the bilateral bases. Patient is tachypneic but otherwise no accessory muscle use no nasal flaring or retractions Cardio regular rhythm Rate: tachycardic GI normal to inspection, nondistended, normoactive bowel sounds, non-tender, non- distended and no masses Auscultation: normoactive bowel sounds Palpation: soft Extremity normal to inspection Extremity Narrative: No asymmetric edema no pitting edema negative Homans' sign bilaterally Neuro oriented x3, CN's II-XII intact bilaterally and no sensory deficits noted Sensorium / Orientation: alert Motor Exam: strength 5/5 throughout Psych mental status grossly normal Skin no rashes or lesions noted General Skin Exam: Negative for jaundice or pallor MDM MDM MDM Narrative Medical decision making narrative: Patient presented to the ER tachycardic with low-grade fever and mild increased work of breathing. He typically wears 4 L of oxygen and was increased to 6 and with the mild increase his pulse ox is 94 to 97%. As he was just admitted for bronchiectasis and respiratory failure there is concern that his bronchiectasis is worsened he has developed a loculated pneumonia or with his recent admission he is developed a pulmonary embolus therefore elected to perform basic laboratory studies and a CTA of the chest. Patient is also potentially developed COVID influenza or RSV with his subjective fevers and chills as well as congestion and drainage. CTA revealed continued bronchiectasis but this is stable in nature without PE or dissection or pleural effusion or pneumothorax. The patient's white count is elevated to 30 but he has been on steroids with this hospitalization and his procalcitonin value is only slightly elevated. Viral swab was positive for influenza which would correlate with the congestion drainage and subjective fevers and chills. At this time after receiving treatments in the emergency department his blood pressure heart rate temperature and work of breathing have normalized. We have a reason for his increased shortness of breath. Therefore as he has stable vitals and is only requiring a slight elevation from his baseline oxygen his CTA does not reveal PE dissection worsening bronchiectasis pneumothorax or pneumonia and we have a reason for his worsening symptoms and that he is influenza A positive I do not feel he needs readmission to the hospital and is otherwise safe for discharge History & Record Review Discussion w/independent historian: Patient Lab Data Attestation: I reviewed the patient's lab results. Labs: Laboratory Results - last 24 hr 03/22/24 03/22/24 00:10 00:35 WBC 30.4 H* RBC 4.51 L Hgb 9.6 L Hct 33.7 L MCV 74.7 L MCH 21.3 L MCHC 28.5 L RDW Std Deviation 47.8 H RDW Coeff of Maya 23.9 H Plt Count 499 H MPV 9.6 Immature Gran % (Auto) 1.200 H Neut % (Auto) 89.6 H Lymph % (Auto) 2.8 L [place] % (Auto) 6.0 Eos % (Auto) 0.2 Baso % (Auto) 0.2 Absolute Neuts (auto) 27.3 H Absolute Lymphs (auto) 0.84 Nucleated RBC % 0 Differential Comment SCANNED Diff Path Review Reviewed Hypochromasia 1+ Anisocytosis 2+ Ovalocytes 1+ Stomatocytes 1+ Sodium 134 L Potassium 3.9 Chloride 105 Carbon Dioxide 24.0 Anion Gap 6 BUN 19 H Creatinine 0.98 Estim Creat Clear Calc 88.54 Est GFR (MDRD) Af Amer 103 Est GFR (MDRD) Non-Af 85 BUN/Creatinine Ratio 19.4 Glucose 149 H Lactic Acid 1.9 Calcium 8.8 Magnesium 1.8 B-Natriuretic Peptide 4.5 Procalcitonin 1.03 H Radiography Diagnostic Testing: Clinical Impression(s) from Imaging Studies Chest CTA 03/22/24 00:34 IMPRESSION: Stable chest with diffuse bronchiectasis including mucus filling these dilated airways, right lower lobe predominant. Likely associated mediastinal adenopathy. Recommend follow-up to document stability as neoplastic process is not excluded. Severe diffuse emphysematous lung changes with bleb formation, including giant left posterior bleb. No pulmonary embolus or acute aortic abnormality. Fatty liver. Electronically Signed: Doyle Jaramillo MD at 2:41 EST , Discharge Plan Triage Chief Complaint: Shortness of Breath ED Provider: Anselmo Bustos Dx/Rx/DC Orders Clinical Impression: Influenza A, Leukocytosis, Mucus plugging of bronchi, COPD exacerbation Instructions: ED Influenza (Adult) Prescriptions: New levofloxacin 750 mg tablet 750 mg PO DAILY 5 Days Qty: 5 0RF prednisone 20 mg tablet 40 mg PO DAILY 5 Days Qty: 10 0RF (DME) nebulizer and compressor Device See Rx Instructions .Route Qty: 1 0RF Rx Instructions: As directed ipratropium-albuterol 0.5 mg-3 mg(2.5 mg base)/3 mL solution for nebulization 3 ml inhalation Q4H PRN (Reason: shortness of breath/wheezing) Qty: 180 2RF oseltamivir [Tamiflu] 75 mg capsule 75 mg PO BID 5 Days Qty: 10 0RF No Action sertraline 100 MG tablet 100 mg PO DAILY Patient Comments: MENTAL HEALTH trazodone 50 mg tablet 100 - 150 mg PO PRN Patient Comments: take 1 to 3 tablets by mouth at bedtime pantoprazole 40 mg tablet,delayed release (DR/EC) 40 mg PO BID Patient Comments: take 1 tablet by mouth twice a day ipratropium-albuterol 0.5 mg-3 mg(2.5 mg base)/3 mL Solution For Nebulization 3 ml INHALATION Q4H PRN (Reason: breathing) albuterol sulfate [Ventolin HFA] 90 mcg/actuation HFA aerosol inhaler 2 puff inhalation Q4H PRN PRN (Reason: Wheezing) Qty: 1 0RF ferrous sulfate [Iron (ferrous sulfate)] 325 mg (65 mg iron) tablet 325 mg PO DAILY Qty: 90 0RF fluticasone propion-salmeterol [Advair HFA] 230-21 mcg/actuation HFA aerosol inhaler 2 puff inhalation BID Spiriva Respimat 2.5 mcg/actuation mist 2 puff inhalation DAILY levofloxacin 750 mg tablet 750 mg PO DAILY Qty: 4 0RF prednisone 20 mg tablet 40 mg PO DAILY Qty: 10 0RF Primary Care Provider: Antwan Buchanan Referrals: Antwan Buchanan, [Primary Care Provider] - Activity Restrictions/Additional Instructions: You tested positive for influenza A today. That correlates with your fevers and chills as well as the increased work of breathing. Please fill all the medications that were prescribed from the ER to help control your symptoms and return here if you have any further concerns or worsening of symptoms Print Language: Armenian Disposition Disposition: Home, Self Care Discharge Date/Time: 03/22/24 03:38
[2024-03-22] MEDS: Albuterol Sulfate 8 gm Inhaler (60 puffs) 2 PUFF INHALATION (03:23)
[2024-03-22 10:04] LABS: Pathologist Review Reviewed
== END 2024-03-22 03:38 | disposition home or self-care (01) ==
PROVIDERS: Emergency Provider Emergency Medicine; PCP Student in an Organized Health Care Education/Training Program; Visit Provider Emergency Medicine
DX: J10.1 Influenza due to other identified influenza virus with other respiratory manifestations (principal); J96.11 Chronic respiratory failure with hypoxia; J47.9 Bronchiectasis, uncomplicated; J44.1 Chronic obstructive pulmonary disease with (acute) exacerbation; D72.829 Elevated white blood cell count, unspecified; Z87.891 Personal history of nicotine dependence; Z86.73 Personal history of transient ischemic attack (TIA), and cerebral infarction without residual deficits; F32.A Depression, unspecified; F41.9 Anxiety disorder, unspecified
CPT/HCPCS: 36415; 71275; 80048; 83605; 83735; 83880; 84145; 85025; 87040; 87631; 94640; 96365; 99284; Q9967; A4216

== ENCOUNTER 2024-10-22 18:05 | Inpatient (IN) | payer MEDICAID, SELFPAY ==
[2023-04-29 14:10] VITALS: BMI 22.1
[2024-10-22] VITALS (17 sets, daily range): BP systolic 114–138; BP diastolic 80–86; PULSE 88–122; RESP 8–36; TEMP 36.3–37.2; O2SAT 85–98; BMI 22.9
--- NOTE | 2024-10-22 18:18 | EKG12_ITS ---
Test Reason : SOB Blood Pressure : */* mmHG Vent. Rate : 113 BPM Atrial Rate : 113 BPM P-R Int : 132 ms QRS Dur : 72 ms QT Int : 292 ms P-R-T Axes : 81 81 -60 degrees QTcB Int : [address] & T wave abnormality, consider inferolateral ischemia Abnormal ECG Confirmed by Giovanni Robins ([id number]), electronic news gathering editor DAVID TREJO ([id number]) on 10/23/2024 11:43:21 AM Referred By: Confirmed By: Giovanni Robins
[2024-10-22 18:20] LABS: SITE Not entered; VBG BASE EXCESS 5 mmol/L (-1.0-3.5); VBG PO2 76 mmHg (25-40); VBG SO2 96 % (50-70); VBG TCO2 31 mmol/L (23-33)
[2024-10-22] MEDS: 0.9% Normal Saline (1000mL) 1,000 ML 999 ML IV ×3 (18:25→21:02)
--- NOTE | 2024-10-22 18:28 | EX.ED.DYSGE1 ---
HPI History of Present Illness Chief Complaint: Shortness of Breath Narrative Narrative: Patient is a 54-year-old male with past medical history of chronic hypoxic respiratory failure on 4 L chronically, alcohol abuse, TIA, depression, anxiety who presents to the emergency department with a chief complaint of shortness of breath and not feeling well. Patient states that for the past few days he has not been feeling well and notes that today he could not get his oxygen on his home oxygen above 88% and had significant difficulty breathing therefore he came here for further evaluation management. Per EMS when they arrived he was 86% on 4 L. They placed him on CPAP. At time my evaluation the patient was already transition to BiPAP. Patient states that he has been coughing more sputum up than normal. Per EMS they gave 1 DuoNeb and Solu-Medrol en route. PFSH PFSH Medical History Mucus plugging of bronchi Iron deficiency anemia Acute on chronic hypoxic respiratory failure Chronic hypoxic respiratory failure History and physical examination, immigration Exposure to COVID-19 virus Alcohol abuse Ulcer Smoker TIA (transient ischemic attack) History of bacterial pneumonia Depression Anxiety COPD (chronic obstructive pulmonary disease) History of tobacco use Home Medications ?Medication ?Instructions ?Recorded ?Last Taken ?Type sertraline 100 mg tablet 100 mg PO DAILY mood 11/19/14 10/19/22 10:00 History pantoprazole 40 mg tablet,delayed 40 mg PO BID stomache 03/20/21 10/19/22 10:00 History release trazodone 50 mg tablet 100 - 150 mg PO PRN sleep 03/20/21 03/18/21 History albuterol sulfate 90 mcg/actuation 2 puff inhalation Q4H PRN PRN 02/10/22 10/19/22 10:00 Rx aerosol inhaler (Ventolin HFA) Wheezing ##1 fluticasone propionate 230 2 puff inhalation BID breathing 03/13/24 Unknown History mcg-salmeterol 21 mcg/actuation HFA inhaler (Advair HFA) tiotropium bromide 2.5 2 puff inhalation DAILY breathing 03/13/24 Unknown History mcg/actuation mist for inhalation (Spiriva Respimat) ipratropium 0.5 mg-albuterol 3 mg 3 ml inhalation Q4H PRN shortness 03/22/24 Unknown Rx (2.5 mg base)/3 mL nebulization of breath/wheezing #180 mL soln nebulizer and compressor #1 ea 03/22/24 Unknown Rx Allergy/AdvReac Type Severity Reaction Status Date / Time tramadol HCl (From [facility]) Allergy Swelling Verified 10/22/24 18:16 codeine AdvReac PT UNSURE Verified 10/22/24 18:16 OF REACTION Family History Other Cancer Diabetes Heart disease Hypertension Surgical History History of herniorrhaphy History of tonsillectomy History of chest tube placement History of tracheostomy Social History household members: none Smoking Status: Former smoker how long ago did patient quit smoking: Patient quit smoking 2 years ago alcohol intake: current alcohol intake frequency: holidays/special occasions only substance use type: does not use ROS ROS ED ROS Narrative Constitutional: Denies any fevers, chills, headaches Eyes: Denies change in vision double vision blurry vision Cardiovascular: Denies chest pain or palpitations Respiratory: Complains of cough and shortness of breath as noted above Abdomen: Denies abdominal pain nausea vomit diarrhea : Denies urinary symptoms Neurological: Denies any numbness, weakness, tingling Musculoskeletal: Denies back pain Skin: Denies any rashes or lesions EXAM Physical Exam Narrative Exam Narrative: General: Patient was lying in bed rest comfortably did not appear to be acute distress Head: Atraumatic, normocephalic Eyes: PERRL bilaterally, EOMI bilaterally, no conjunctival injection noted Neck: Soft, supple, trachea midline Cardiovascular: Patient tachycardic with a regular rhythm Respiratory: End expiratory wheezing noted bilaterally Abdomen: Soft, nondistended, nontender to palpation Extremities: +5/5 strength noted in the bilateral upper and lower extremities, radial pulses +2/4 in the bladder extremities, no pedal edema no exam Neurological: Patient following commands and that he was at [facility] the year is 2024 Skin: Warm, dry, intact no rashes or lesions noted Const Vital Signs: 10/22/24 18:07 10/22/24 18:11 10/22/24 18:13 Temperature 97.3 F L 97.3 F L Temperature Source Tympanic Temporal Pulse Rate 122 H 120 H 118 H Respiratory Rate 28 H 36 H 26 H Respiratory Effort Respiratory Depth Respiratory Pattern Blood Pressure 131/82 H 131/82 H Blood Pressure Mean 98 98 Pulse Ox 94 95 94 Oxygen Delivery Method Bi-pap Bi-pap Oxygen Flow Rate (L/min) Fraction of Inspired Oxygen (FIO2) 10/22/24 18:17 10/22/24 18:18 10/22/24 18:33 Temperature Temperature Source Pulse Rate 115 H Respiratory Rate 28 H Respiratory Effort Short of Breath Labored Respiratory Depth Deep Respiratory Pattern Tachypnea Tachypnea Blood Pressure Blood Pressure Mean Pulse Ox 96 Oxygen Delivery Method Bi-pap Bi-pap Oxygen Flow Rate (L/min) Fraction of Inspired Oxygen (FIO2) 10/22/24 19:04 10/22/24 19:04 10/22/24 19:05 Temperature Temperature Source Pulse Rate 104 H 105 H 105 H Respiratory Rate 27 H 27 H 20 H Respiratory Effort Respiratory Depth Respiratory Pattern Tachypnea Tachypnea Blood Pressure Blood Pressure Mean Pulse Ox 95 96 Oxygen Delivery Method Bi-pap Oxygen Flow Rate (L/min) 35 Fraction of Inspired Oxygen (FIO2) 35 10/22/24 20:00 10/22/24 20:38 Temperature Temperature Source Pulse Rate 97 Respiratory Rate 22 H Respiratory Effort Respiratory Depth Respiratory Pattern Blood Pressure Blood Pressure Mean Pulse Ox 97 95 Oxygen Delivery Method Bi-pap Nasal Cannula Oxygen Flow Rate (L/min) 35 4 Fraction of Inspired Oxygen (FIO2) MDM MDM MDM Narrative Medical decision making narrative: Patient is a 54-year-old male who presented to the emergency department chief complaint of shortness of breath. On the differential diagnosis includes but not limited to pneumothorax, pneumonia, COPD exacerbation, ACS. Once the workup is obtained and reviewed he will be reevaluated. Patient was given 30 cc/kg bolus of IV fluids at 1820. Given the patient has increased sputum production and is acutely hypoxic did add on Rocephin and azithromycin at 1819. Patient also be given 2 additional DuoNebs as he already was given 1 and route as well as Solu-Medrol. Patient's CBC reviewed showed a leukocytosis of 17,000 however this is chronically elevated according to previous blood draws, hemoglobin stable 12.7, platelet count was noted to be 362. Patient's INR normal at 1.1, PT 13.9, venous blood gas reviewed showed pH 7.44. Patient sodium was normal 135, potassium was 3.7, creatinine normal at 0.84. Patient's AST and ALT are 11 and 13 respectively. Patient's troponin was less than 6 EKG reviewed showed sinus tachycardia with a rate of [address] changes likely secondary to his hypoxia and tachycardia, proBNP normal less than 36. Patient's urinalysis reviewed and showed no evidence of infection. Patient chest x-ray reviewed by myself by radiology showed persistent basilar airspace opacities and atelectasis trace bilateral pleural effusions. At this point time will discuss case with hospitalist for his admission for his acute on chronic hypoxic respiratory failure with COPD exacerbation. Reperfusion assessment performed at 8:08 PM and patient remains normotensive to hypertensive therefore no vasopressors indicated at this point time. Discussed case with hospitalist Dr. De La Rosa who accept the patient for admission. Patient notified is agreeable to plan all course concerns answered. Lab Data Labs: Laboratory Results - last 24 hr 10/22/24 10/22/24 10/22/24 18:22 19:15 20:11 WBC 17.8 H RBC 4.95 Hgb 12.7 L Hct 40.6 MCV 82.0 MCH 25.7 L MCHC 31.3 L RDW Std Deviation 43.3 RDW Coeff of Maya 14.6 Plt Count 362 MPV 9.9 Immature Gran % (Auto) 0.500 Neut % (Auto) 76.8 H Lymph % (Auto) 10.4 L [place] % (Auto) 11.7 H Eos % (Auto) 0.2 Baso % (Auto) 0.4 Absolute Neuts (auto) 13.6 H Absolute Lymphs (auto) 1.84 Nucleated RBC % 0 Differential Comment SCANNED Platelet Estimate ADEQUATE PT 13.9 INR 1.1 APTT 35.4 Sodium 135 Potassium 3.7 Chloride 96 L Carbon Dioxide 23.0 Anion Gap 16 H BUN 13 Creatinine 0.84 Estim Creat Clear Calc 103.20 Est GFR (MDRD) Non-Af 104 BUN/Creatinine Ratio 15.1 Glucose 141 H Lactic Acid 1.2 Calcium 9.8 Total Bilirubin 0.78 AST 11 ALT 13 Alkaline Phosphatase 92 Troponin T High Sens < 6 Troponin T Hi Sens 2 Hr < 6 NT pro BNP II < 36 Total Protein 8.2 Albumin 4.2 Globulin 3.9 Albumin/Globulin Ratio 1.1 Urine Color Yellow Urine Clarity Clear Urine pH 6.5 Ur Specific [place] 1.015 Urine Protein 30 H Urine Glucose (UA) Normal Urine Ketones 5 H Urine Occult Blood Negative Urine Nitrite Negative Urine Bilirubin Negative Urine Urobilinogen Normal Ur Leukocyte Esterase Negative ABG Data ABG results: ABG 10/22/24 18:17 Specimen Type AG Sample Site Not entered VBG pH 7.44 H VBG pO2 76 H VBG HCO3 29 H VBG Total CO2 31 VBG O2 Sat (Calc) 96 H VBG Base Excess 5 H POC Mix VBG pCO2 Pt Tmp 42.8 O2 Delivery Device Not entered Radiography Diagnostic Testing: Clinical Impression(s) from Imaging Studies Chest X-Ray 10/22/24 18:40 IMPRESSION: Persistent bibasilar airspace opacities and atelectasis. Trace bibasilar pleural effusions. Reading Location: [facility] Discharge Plan Triage Chief Complaint: Shortness of Breath ED Provider: Tony Castellano Dx/Rx/DC Orders Clinical Impression: Acute on chronic respiratory failure with hypoxemia, COPD exacerbation, Shortness of breath Prescriptions: No Action sertraline 100 MG tablet 100 mg PO DAILY Patient Comments: MENTAL HEALTH trazodone 50 mg tablet 100 - 150 mg PO PRN Patient Comments: take 1 to 3 tablets by mouth at bedtime pantoprazole 40 mg tablet,delayed release (DR/EC) 40 mg PO BID Patient Comments: take 1 tablet by mouth twice a day albuterol sulfate [Ventolin HFA] 90 mcg/actuation HFA aerosol inhaler 2 puff inhalation Q4H PRN PRN (Reason: Wheezing) Qty: 1 0RF (DME) nebulizer and compressor Device See Rx Instructions .Route Qty: 1 0RF Rx Instructions: As directed ipratropium-albuterol 0.5 mg-3 mg(2.5 mg base)/3 mL solution for nebulization 3 ml inhalation Q4H PRN (Reason: shortness of breath/wheezing) Qty: 180 2RF fluticasone propion-salmeterol [Advair HFA] 230-21 mcg/actuation HFA aerosol inhaler 2 puff inhalation BID Spiriva Respimat 2.5 mcg/actuation mist 2 puff inhalation DAILY Primary Care Provider: Antwan Buchanan Referrals: Antwan Buchanan, DO [Primary Care Provider] - Print Language: Latvian Disposition Disposition: Acute Care Hospital [facility]
[2024-10-22] MEDS: Ceftriaxone 2 GM in 0.9% Normal Saline (50mL MB+) 50 ML IV (18:31)
--- NOTE | 2024-10-22 18:40 | RAD_ITS ---
PROCEDURE: CHEST 1 VIEW (PORTABLE) 10/22/2024 REASON FOR EXAM: SOB TECHNIQUE: Frontal view of the chest. COMPARISON: CT angio chest 03/22/2024, chest x-ray 03/13/2024 FINDINGS: Hardware: None. Heart: The heart size is normal. Lungs: Persistent bibasilar airspace opacities and atelectasis. Trace bibasilar pleural effusions. No definite pneumothorax Bones: The bones are unremarkable. RAD/Chest 1 View (Portable) IMPRESSION: Persistent bibasilar airspace opacities and atelectasis. Trace bibasilar pleur al effusions. [facility]
[2024-10-22 18:43] LABS: Hematocrit 40.6 % (40-54); Hemoglobin 12.7 g/dL (13.0-16.5); Immature Granulocytes Count 0.080 X10^3/uL (0.0-0.0); Mean Corp Hgb Conc 31.3 g/dL (32-36); Mean Corpuscular Volume 82.0 fL (80-94); Mean Platelet Vol. 9.9 fl (6.2-12.0); NRBC Flagged by Analyzer 0 % (0-5); POSITIVE DIFFERENTIAL YES; Platelet Count 362 K/mm3 (150-450); RBC Distribution Width CV 14.6 % (11.6-14.6); RBC Distribution Width SD 43.3 fl (35.1-43.9); Red Blood Count 4.95 M/mm3 (4.6-6.2); White Blood Count 17.8 K/mm3 (4.4-11.0)
[2024-10-22 18:44] LABS: Differential Indicated SCAN CRITERIA MET
[2024-10-22 19:04] LABS: Prothrombin Time (Protime)PT. 13.9 SECONDS (11.7-14.9)
[2024-10-22 19:05] LABS: Partial Thromboplast Time 35.4 Seconds (24.1-36.2)
[2024-10-22] MEDS: Azithromycin 500 MG in 0.9% Normal Saline (250mL Bag) 250 ML 250 MG IV (19:10)
[2024-10-22 19:23] LABS: Mucous, Urine 0 SEEN /hpf (<or=2+)
[2024-10-22 19:27] LABS: Color, Urine Yellow (Yellow); Glucose, Dipstick Normal (Normal); Ketone-Dipstick 5 mg/dl (Negative); Leukocyte Esterase-Dipstick Negative /ul (Negative); Nitrite-Dipstick Negative (Negative); Occult Blood-Urine Negative /ul (Negative); Protein-Dipstick 30 mg/dl (Negative); Specific Gravity, Urine 1.015 (1.002-1.030); Urine Bilirubin Dipstick Negative (Negative)
[2024-10-22 19:41] LABS: AST(SGOT) 11 U/L (<=37); Alanine Aminotransfer ALT/SGPT 13 U/L (<=46); Albumin, Serum 4.2 g/dL (3.5-5.0); Alkaline Phosphatase 92 U/L (40-129); Anion Gap 16 (5-15); BUN 13 mg/dL (4-19); BUN/Creat Ratio 15.1 RATIO (10-20); Calcium,Total 9.8 mg/dL (7.6-11.0); Carbon Dioxide 23.0 mmol/L (21.0-32.0); Chloride 96 mmol/L (98-108); Estimated Creatinine Clearance 103.20 ml/min (50-250); Globulin 3.9 g/dL (2.2-4.2); Glucose 141 mg/dL (70-99); Potassium 3.7 mmol/L (3.3-5.1)
[2024-10-22 19:49] LABS: Pro- Brain NATRIURETIC PEPTIDE < 36 pg/mL (<=900); Troponin T High Sensitivity < 6 ng/L (<=22)
[2024-10-22 19:56] LABS: Differential Comment SCANNED
[2024-10-22 20:43] LABS: Troponin T High Sens 2 HR < 6 ng/L (<=22)
--- NOTE | 2024-10-22 20:44 | HP.PCM.HOS_ITS ---
[facility] - General General Date of Admission: 10/22/24 Date of Service: 10/22/24 Chief Complaint: SOB. [facility] Narrative LUIS AVILA, is a 54 M with a past medical history of former tobacco abuse (quit 2021); with subsequent COPD and history of mucous plugging of bronchi and bacterial pneumonia, chronic hypoxic respiratory failure on 4L NC continuous, history of TIA (2020), history of ZAK; not on oral iron supplementation, depression with anxiety; on sertraline and trazodone, history of COVID-19, history of EtOH abuse and GERD with history of PUD; on pantoprazole BID who presents to [facility] ER complaining of SOB. Mr. Avila reports his symptoms began approximately 3 days prior to admission with gradual-onset of SHAHID that progressed to SOB at rest with wheezing. He also noted generally not feeling well over the past few days and that he could not get his oxygen saturation above 88% with worsening dyspnea so he finally decided to come in for further evaluation and treatment. EMS was activated and they placed him on CPAP with a Duo-Neb and methylprednisone given en-route with transition to BiPAP in ER. He also admits to his cough being increasingly productive of yellowish sputum. He states his symptoms are typical of his previous COPD exacerbations. He also denies active EtOH abuse with his last drink on Tuesday with no signs or symptoms of withdrawal. In the ER he was noted to have a CXR that revealed p ersistent bibasilar airspace opacities and atelectasis with trace bilateral pleural effusions and he was then diagnosed with AE COPD with suspected Pneumonia Acute Hypoxic Respiratory Failure requiring BiPAP with a corresponding Leukocytosis of 17.8K present on admission and he was then admitted to the general medical floor for ongoing care for a stay that is expected to extend beyond 2 midnights. [facility] Medical History Mucus plugging of bronchi Iron deficiency anemia Acute on chronic hypoxic respiratory failure Chronic hypoxic respiratory failure History and physical examination, immigration Exposure to COVID-19 virus Alcohol abuse Ulcer Smoker TIA (transient ischemic attack) History of bacterial pneumonia Depression Anxiety COPD (chronic obstructive pulmonary disease) History of tobacco use Home Medications ?Medication ?Instructions ?Recorded ?Last Taken ?Type sertraline 100 mg tablet 100 mg PO DAILY mood 5 10/19/22 10:00 History pantoprazole 40 mg tablet,delayed 40 mg PO BID stomach e 03/20/21 10/19/22 10:00 History release trazodone 50 mg tablet 100 - 150 mg PO .prn hs slee p 03/20/21 03/18/21 History albuterol sulfate 90 mcg/actuation 2 puff inhalation Q 4H PRN PRN 02/10/22 10/19/22 10:00 Rx aerosol inhaler (Ventolin HFA) Wheezing ##1 fluticasone propionate 230 2 puff inhalation BID breat naisr 03/13/24 Unknown History mcg-salmeterol 21 mcg/actuation HFA inhaler (Advair HFA) tiotropium bromide 2.5 2 puff inhalation DAILY kiara thing 03/13/24 Unknown History mcg/actuation mist for inhalation (Spiriva Respimat) ipratropium 0.5 mg-albuterol 3 mg 3 ml inhalation Q4H PRN shortness 03/22/24 Unknown Rx (2.5 mg base)/3 mL nebulization of breath/wheezing #18 0 mL soln nebulizer and compressor #1 ea 03/22/24 Unknown Rx Allergy/AdvReac Type Severity Reaction Status Date / Time tramadol HCl (From [facility]) Allergy Swelling Verified 10/22/24 18:16 codeine AdvReac PT UNSURE Verified 10/22/24 18:16 OF REACTION Family History Other Cancer Diabetes Heart disease Hypertension Surgical History History of herniorrhaphy History of tonsillectomy History of chest tube placement History of tracheostomy Social History household members: none Smoking Status: Former smoker how long ago did patient quit smoking: Patient quit smoking 2 years ago alcohol intake: current alcohol intake frequency: holidays/special occasions only substance use type: does not use ROS ROS Narrative Review of Systems: Constitutional: Patient denies fever or chills. Eyes: Patient denies changes in vision or discharge from eyes. ENT: Patient denies runny nose, sore throat or ear pain. Resp: Patient admits to SHAHID that progressed to SOB at rest with increasingly productive cough as per HPI. CV: Patient denies chest pain, palpitations, heart racing or LE edema. GI: Patient denies abdominal pain, nausea, vomiting, diarrhea or constipation. : Patient denies dysuria or hematuria. MSK: Patient denies arthralgias or myalgias. Skin: Patient denies rash, abscess, wounds or jaundice. Psych: Patient denies symptoms of uncontrolled depression or anxiety. Neuro: Patient denies headache, paresthesias or focal neurologic deficits. Allergy: Patient denies lip swelling, tongue swelling or urticaria. Hematology: Patient denies easy bleeding or easy bruisability. Endocrinology: Patient denies polyuria, polydipsia, polyphagia or heat/cold intolerance. 14 point ROS otherwise negative except for positives noted above in HPI. Vital Signs Vital Signs Vital Signs: 10/22/24 18:07 10/22/24 18:11 10/22/24 18:13 Temperature 97.3 F L 97.3 F L Temperature Source Tympanic Temporal Pulse Rate 122 H 120 H 118 H Respiratory Rate 28 H 36 H 26 H Respiratory Effort Respiratory Depth Respiratory Pattern Blood Pressure 131/82 H 131/82 H Blood Pressure Mean 98 98 Pulse Ox 94 95 94 Oxygen Delivery Method Bi-pap Bi-pap Oxygen Flow Rate (L/min) Fraction of Inspired Oxygen (FIO2) 10/22/24 18:17 10/22/24 18:18 10/22/24 18:33 Temperature Temperature Source Pulse Rate 115 H Respiratory Rate 28 H Respiratory Effort Short of Breath Labored Respiratory Depth Deep Respiratory Pattern Tachypnea Tachypnea Blood Pressure Blood Pressure Mean Pulse Ox 96 Oxygen Delivery Method Bi-pap Bi-pap Oxygen Flow Rate (L/min) Fraction of Inspired Oxygen (FIO2) 10/22/24 19:04 10/22/24 19:04 10/22/24 19:05 Temperature Temperature Source Pulse Rate 104 H 105 H 105 H Respiratory Rate 27 H 27 H 20 H Respiratory Effort Respiratory Depth Respiratory Pattern Tachypnea Tachypnea Blood Pressure Blood Pressure Mean Pulse Ox 95 96 Oxygen Delivery Method Bi-pap Oxygen Flow Rate (L/min) 35 Fraction of Inspired Oxygen (FIO2) 35 10/22/24 20:00 10/22/24 20:38 Temperature Temperature Source Pulse Rate 97 Respiratory Rate 22 H Respiratory Effort Respiratory Depth Respiratory Pattern Blood Pressure Blood Pressure Mean Pulse Ox 97 95 Oxygen Delivery Method Bi-pap Nasal Cannula Oxygen Flow Rate (L/min) 35 4 Fraction of Inspired Oxygen (FIO2) Weight Weight: 160 lb Body Mass Index (BMI) 22.9 Physical Exam Const alert, oriented x3, no apparent distress and average body habitus General Appearance: cooperative HEENT normocephalic, head/scalp atraumatic, hearing grossly normal bilaterally and moist oral mucous membranes Eyes PERRL, EOMs intact bilaterally and conjunctivae normal Neck no lymphadenopathy, supple and no JVD Resp Resp Narrative: Diminished breath sounds throughout with scattered expiratory wheezing. Auscultation: wheezes Cardio regular rate and regular rhythm GI normal to inspection, nondistended, normoactive bowel sounds, soft to palpation, non-tender and non-distended Extremity normal to inspection, full ROM and no clubbing, cyanosis or edema Skin Skin Narrative: Patient has no evidence of rash, abscess, wounds or jaundice. Neuro oriented x3, CN's II-XII intact bilaterally, moves all extremities and no focal motor deficits Sensorium / Orientation: awake, alert, oriented to person, oriented to place and oriented to time Speech: speech normal Psych affect normal Results Medical Records Data Attestation: I reviewed the patient's medical records Lab / Micro Data Attestation: I reviewed the patient's lab results. 10/23/24 05:30 10/23/24 05:30 Labs: Laboratory Results - last 24 hr 10/22/24 18:22: WBC 17.8 H, RBC 4.95, Hgb 12.7 L, Hct 40.6, MCV 82.0, MCH 25.7 L , MCHC 31.3 L, RDW Std Deviation 43.3, RDW Coeff of Maya 14.6, Plt Count 362, MPV 9.9, Immature Gran % (Auto) 0.500, Neut % (Auto) 76.8 H, Lymph % (Auto) 10.4 L, Stephenson % (Auto) 11.7 H, Eos % (Auto) 0.2, Baso % (Auto) 0.4, Absolute Neuts (auto) 13.6 H, Absolute Lymphs (auto) 1.84, Nucleated RBC % 0, Differential Comment SCANNED, Platelet Estimate ADEQUATE, PT 13.9, INR 1.1, APTT 35.4, Sodium 135, Potassium 3.7, Chloride 96 L, Carbon Dioxide 23.0, Anion Gap 16 H, BUN 13, Creatinine 0.84, Estim Creat Clear Calc 103.20, Est GFR (MDRD) Non-Af 104, BUN/Creatinine Ratio 15.1, Glucose 141 H, Lactic Acid 1.2, Calcium 9.8, Total Bilirubin 0.78, AST 11, ALT 13, Alkaline Phosphatase 92, Troponin T High Sens < 6, NT pro BNP II < 36, Total Protein 8.2, Albumin 4.2, Globulin 3.9, Albumin/Globulin Ratio 1.1 10/22/24 19:15: Urine Color Yellow, Urine Clarity Clear, Urine pH 6.5, Ur Specific [place] 1.015, Urine Protein 30 H, Urine Glucose (UA) Normal, Urine Ketones 5 H, Urine Occult Blood Negative, Urine Nitrite Negative, Urine Bilirubin Negative, Urine Urobilinogen Normal, Ur Leukocyte Esterase Negative 10/22/24 20:11: Troponin T Hi Sens 2 Hr < 6 ABG Data ABG results: ABG 10/22/24 18:17 Specimen Type AG Sample Site Not entered VBG pH 7.44 H VBG pO2 76 H VBG HCO3 29 H VBG Total CO2 31 VBG O2 Sat (Calc) 96 H VBG Base Excess 5 H POC Mix VBG pCO2 Pt Tmp 42.8 O2 Delivery Device Not entered Imaging Radiology Impression Chest X-Ray 10/22/24 18:40 IMPRESSION: Persistent bibasilar airspace opacities and atelectasis. Trace bibasilar pleural effusions. Reading Location: [facility] Imaging Services [address] [place] [address] [id number] Chest WITH Contrast MR#: [id number] Acct: [id number] Name: LUIS AVILA II Rep #: [id number] : 1970 M 54 From: Abdirahman Zamudio MD PCP: Dr. Antwan Buchanan DO Status: ADM IN Study: Chest WITH Contrast Date of Exam: 10/22/24 Exam# [id number] Ordering Dr: Walter Prieto DO PROCEDURE: CHEST WITH CONTRAST 10/22/2024 REASON FOR EXAM: AE COPD WITH ? PNA ON CXR. TECHNIQUE: CHEST WITH CONTRAST Coronal and Sagittal reconstruction series were provided. CONTRAST: Isovue 370 VOLUME: 99 mL One or more dose reduction techniques were used (e.g., Automated exposure control, adjustment of the mA and/or kV according to patient size, use of iterative reconstruction technique). RADIATION DOSE SUMMARY: CTDlvol: 18 mGy DLP: 330 mGycm COMPARISON: 03/22/2024 FINDINGS: There is bronchial wall thickening. There is bronchiectasis most pronounced in the lower lobes, [id number]-left. There is extensive bronchial debris. There is severe emphysema. Smoking-related interstitial lung disease. Bilateral areas of linear scarring. No consolidation, effusion, or pneumothorax. Unremarkable base of neck and axilla. Normal esophagus. Mediastinal and bilateral hilar adenopathy, likely reactive. Normal heart size. No acute vascular pathology. No acute chest wall findings. Hepatic steatosis. CT/Chest WITH Contrast IMPRESSION: COPD. Bronchiectasis and extensive bronchial debris. No consolidation or other definite acute chest findings. Reading Location: [place] [address] CC: Dr. Walter Prieto DO; Dr. Antwan Buchanan DO ~ Image Consultant: Signed Assessment & Plan Assessment/Plan (1) COPD exacerbation: (2) Bronchiectasis: QUALIFIERS: Bronchiectasis type: with acute exacerbation Q ualified Code(s): J47.1 - Bronchiectasis with (acute) exacerbation (3) Mucus plugging of bronchi: (4) Acute on chronic respiratory failure with hypoxemia: (5) Hypophosphatasia: PLAN: Plan 1. CXR that revealed persistent bibasilar airspace opacities and atelectasis with trace bilateral pleural effusions and he was then diagnosed with AE COPD with suspected Pneumonia with Leukocytosis of 17.8K present on admission and CT of the chest that revealed Bronchiectasis with extensive bronchial debris - Admit to general medical floor. Continue empiric IV ceftriaxone and IV azithromycin begun in ER and await culture and sensitivity data. Check urinary antigens to Streptococcus pneumonia and Legionella. Keep NPO except medications, ice chips and sips until patient weaned off BiPAP. Give prochlorperazine IV prn for nausea and vomiting. Give acetaminophen prn for [id number] (level 1-5/10) pain or fever. Give morphine IV prn for severe (level 6-10/10) pain. 2. AE COPD with Wosoc-id-Stxubrm Hypoxic Respiratory Failure requiring BiPAP due to #1 - Maintain IV methylprednisolone with scheduled and prn nebulizers/inhalers. Wean BiPAP as tolerated. 3. Hypophosphatemia of 1.1 mg/dL present on admission complicating #1 & #2 - Give supplemental K-Phos 40 mmol IV once and then recheck level in AM to confirm repletion. 4. History of TIA (2020) - Noted. 5. History of ZAK; not on oral iron supplementation - Stable with hemoglobin of 12.7 g/dL and MCV of 82 fL. Check iron studies. 6. Depression with anxiety; on sertraline and trazodone - Maintain home regimen as before. 7. History of COVID-19 - Noted with viral panel pending. 8. History of EtOH abuse - Patient denies current abuse and has no signs/symptoms of withdrawal as noted in HPI. 9. GERD with history of PUD; on pantoprazole BID - Resume PPI as previous. 10. DVT prophylaxis - Enoxaparin 40 mg sq daily plus SCD's. Total time: Approximately (but not less than) 55 minutes. Charges/Coding Visit Charges Inpatient E&M: 31209 Init Hosp L2
[2024-10-22 21:02] LABS: Red Blood Cells-Urine 0-5 SEEN /hpf (0-5); Squamous Epithelial Cells - UA 0-5 SEEN /hpf (0-5)
--- NOTE | 2024-10-22 21:23 | CASEMGMT ---
Care Management Face to Face with patient for initial transition planning/care coordination assessment in the ED.? This ad writer introduced self and role at [facility]. Patient alert and oriented. Patient willing to participate in assessment and is able to answer all questions appropriately.? Care providers, pharmacy, and demographics verified. Admitting Diagnosis: ?Shortness of breath Other diagnosis history: ?COPD, TIA PCP: ?[facility] Specialists: Umair Child Protective Services Specialist Preferred Pharmacy: [facility] Insurance: ?Care source Prescription Benefit: yes Living Will/HPOA: none LNOK: ?Son Living Arrangements: ?patient lives in first floor apartment.? Reports to being independent with ADLs and IADLs Transportation: ?neighbor and friend DME: ?shower chair, nebulizer, pulse ox, home oxygen through [facility],? on 4 L continuous HHC: ?None SNF/Rehab: Rehab unit in [facility] Resources: ?None Behavioral Health History: Depression, anxiety Patient goals: Patient wishes to discharge home, denies need for home health care at this time. Patient denies any further needs or concerns at this time. Disposition Plan: admission to acute; RN CM/SW to follow for discharge planning needs that may arise. Lianna Wagner, METHODS EXAMINER, HAIR OR BEAUTY SALON MANAGER
--- OUTSIDE RECORDS SUMMARY | 2024-10-22 21:40 | XMS RPT_ITS | CCD ---
Author Organization [facility] ion Partnership [facility] Care Team Providers Care Balance Screwhead Polisher Name Role Phone Antwan Buchanan DO Primary Care Provider ANTWAN BUCHANAN DO Primary Care Physician Antwan Buchanan Primary Care Provider Dr. Antwan Buchanan Primary Care Provider Dr. Gisela Cunningham Emergency Provider Dr. Sharita Rich Admit Provider Dr. Sharita Rich Attending Provider Dr. Sharita Rich Other Provider Dr. Vega Jack Attending Provider Dr. Vega Jack Other Provider Antwan Buchanan DO Primary Care Provider Dr. Antwan Buchanan Primary Care Provider Dr. Kody Jj Emergency Provider Dr. Kelton Gutierrez Admit Provider Dr. Kelton Gutierrez Attending Provider Dr. Kelton Gutierrez Other Provider Dr. Cuca Flood Other Provider Friend, Dr. Mccain Attending Provider Dr. Cuca Flood Attending Provider Antwan Buchanan Primary Care Provider Buchanan Antwan L Primary Care Provider Inez Alonzo PA-C Unavailable RAMON CUNHA Referring Unavailable BUCHANAN, ANTWAN Primary Care Unavailable BUCHANAN, ANTWAN Primary Care Unavailable KELTON ENRIQUE Attending Unavailable BUCHANAN, ANTWAN Primary Care Unavailable ZBIGNIEW MIKE Admitting Unavailable TAMMIE BOO Consulting Unavailable GLEN MIKE Attending Unavailable BUCHANAN, ANTWAN Primary Care Unavailable TONY FIGUEROA Attending Unavailable RAMON CUHNA Referring Unavailable BUCHANAN, ANTWAN Primary Care Unavailable MARLENASHTONY A Referring Unavailable BUCHANAN, ANTWAN Primary Care Unavailable SHIREENAIN, KELTON Referring Unavailable BUCHANAN, ANTWAN Primary Care Unavailable RAMON CUNHA Referring Unavailable BUCHANAN, ANTWAN Primary Care Unavailable Buchanan Antwan CASILLAS L Primary Care Provider Guru DISPLAY SCREEN FABRICATOR.Shelia VINCENT Unavailable Allyn DISPLAY SCREEN FABRICATOR.Steff VINCENT Unavailable Layla, Sharita Neelima Referring Unavailable Chema Block Attending Unavailable Buchanan, Antwan Primary Care Unavailable Joie Lopez Admitting Unavailable Joie Lopez Consulting Unavailable Júnior Caraballo Consulting Unavailable Anetaam, Sharita Neelima Consulting Unavailable Anetaam, Sharita Neelima Attending Unavailable Buchanan, Antwan Primary Care Unavailable Joie Lopez Attending Unavailable Joie Lopez Admitting Unavailable Joie Lopez Consulting Unavailable Devyn Sena Consulting Unavailable Cuate Jaramillo Consulting Unavailable Andi Mckeon Consulting Unavailable Chema Block Consulting Unavailable Walter Son Consulting Unavailable Bakari Saldana Consulting Unavailable David Rosas Consulting Unavailable Chanelle Valenzuela Consulting Unavailab steven Leroy Dougie Consulting Unavailable Clemente Maynard Consulting Unavailable Anselmo Rice Consulting Unavailable Chandni Hoffman Consulting Unavailable Lida Kaufman Consulting Unavailable Fabián Wong Consulting Unavailable Peter Gomez Consulting Unavailable Tristen Hanley Consulting Unavailable Nicolás Barlow Consulting Unavailable Erin Desir Consulting Unavailable Arslan Duran Consulting Unavailable Nima Arora Consulting Unavailable Mikhail Casillas Consulting Unavailable Buchanan, Antwan Primary Care Unavailable Manuel Block Referring Unavailable Manuel Block Attending Unavailable Buchanan, Antwan Primary Care Unavailable Anselmo Bustos Attending Unavailable Buchanan Antwan Primary Care Unavailable Manuel Block Referring Unavailable Manuel Block Attending Unavailable Sharita Rich Attending Unavailable Buchanan, Antwan Primary Care Unavailable Joie Lopez Consulting Unavailable Joie Lopez Admitting Unavailable Júnior Caraballo Consulting Unavailable MANUEL BLOCK SKYLA Referring Unavailable MICHELLE ANTWAN L Primary Care Unavailable BUCHANANANTWAN L Attending Unavailable MICHELLE ANTWAN L Primary Care Unavailable Niesha DISPLAY SCREEN FABRICATOR.Tanisha VINCENT Unavailable [phone] Allergies Allergy Classification Reported Allergen(s) Allergy Type Date of Onset Reaction(s) Facility (20 sources) Codeine; Translations: [codeine] Drug Allergy 6 Other: See Comments, Unknown (qualifier value) [facility] (20 sources) traMADol; Translations: [TRAMADOL HCL] Drug Allergy 8 Swelling [facility] (18 sources) traMADol; Translations: [tramadol] Drug Allergy 8 Anaphylaxis (disorder), Swelling, Anaphylaxis [facility] Comment on above: tongue swelling (17 sources) Tomatoes; Translations: [TOMATOES] Food Allergy 4 Unknown [facility] Work Phone: (1 source) Codeine Drug Allergy 5 [facility] (1 source) traMADol Drug Allergy 5 [facility] Medications Current Medications Medication Drug Class(es) Dates Sig (Normalized) Sig (Original) Acetaminophen (6 sources) Start: 07-02-2021 acetaminophen (TYLENOL) tablet 650 mg Start: 07-01-2021 End: 07-01-2021 acetaminophen (TYLENOL) tabl et 1,000 mg Start: 07-28-2017 End: 11-19-2020 acetaminophen (TYLENOL) 325 mg tablet 650 mg. 07/28/2017 11/19/2020 Discontinued (Course of therapy completed) Start: 07-28-2017 Tylenol 325 mg oral tablet Dose : 650 mg = 2 tab(s), Oral, q4h, PRN as needed for pain, 0 Refill(s) Start Date: 07/28/17 Status: Ordered acetaminophen 325 mg / butalbital 50 mg / caffeine 40 mg oral tablet (1 source) Barbiturate, Central Nervous System Stimulant, Methylxanthine Start: 07-04-2021 dtrezpbbgh-hckpfxxtwuitw-vae feine (FIORICET, ESGIC) per tablet 1 tablet aspirin 81 mg delayed release oral tablet (20 sources) Platelet Aggregation Inhibitor, Nonsteroidal Anti-inflammator y Drug Start: 08-15-2021 End: 08-10-2023 take 81 mg by mouth once daily Aspirin Active 81 MG PO DAILY August 15, 2021 4:04pm Start: 10-02-2019 aspirin 81 mg oral tablet (chewable) Dose : 81 mg = 1 tab(s), Oral, qDay Start Date: 10/02/19 Status: Ordered Comment on above: Take 81 mg by mouth once daily. Azithromycin 5 Day Dose Pack 250 mg oral tablet (1 source) Start: End: take 1 tablet by mouth once daily Azithromycin 5 Day Dose Pack 250 mg oral tablet 1 dose, Oral, Daily, X 5 day(s), # 6 tab(s), 0 Refill(s), 08/06/21 12:11:00 EDT, 70 Start Date: 08/01/21 Stop Date: 08/06/21 Status: Ordered Budesonide-Formoterol Fumarate (SYMBICORT IN) (1 source) Budesonide-Formo tero l Fumarate (SYMBICORT IN) Inhale into the lungs 0 Active ciprofloxacin 500 mg oral tablet (2 sources) Quinolone Antimicrobial Start: End: take 1 tablet by mouth twice daily ciprofloxacin (CIPRO) 500 MG tablet Take 1 tablet by mouth 2 times daily for 7 days 14 tablet 0 07/12/2021 07/19/2021 Active ergocalciferol 1.25 mg oral capsule (1 source) Provitamin D2 Compound Start: take 1 capsule by mouth every week vitamin D (ERGOCALCIFEROL) 1.25 MG (79071 UT) CAPS capsule Take 1 capsule by mouth once a week 5 capsule 0 04/19/2021 Active 120 actuat fluticasone propionate 0.23 mg/actuat / salmeterol 0.021 mg/actuat metered dose inhaler (20 sources) Corticosteroid, beta2-Adrenergic Agonist Start: take 2 puff(s) by inhalation twice daily fluticasone-salmeter ol HFA (ADVAIR HFA) 230-21 mcg/actuation inhaler INHALE 2 PUFFS TWICE DAILY DIRECTED 1 each 06/15/2024 Active Start: 06-02-2023 End: 06-15-2024 take 2 puff(s) by mouth twice daily ADVAIR HFA 230-21 mcg/actuation inhaler inhale 2 puffs by mouth and INTO THE LUNGS twice a day as directed 12 06/02/2023 06/15/2024 Discontinued Start: 11-16-2022 take 2 puff(s) by in halation twice daily fluticasone-salmeterol HFA (ADVAIR HFA) 230-21 mcg/actuation inhaler Inhale 2 Puffs as instructed twice daily. 1 Each 11/16/2022 Active Start: 11-16-2022 End: 02-08-2023 Start: 11-16-2022 take 2 puff(s) by in halation in the morning fluticasone-salmeterol (Advair) 230-21 MCG/ACT inhaler Inhale 2 puffs in the morning and 2 puffs in the evening. 0 11/16/2022 Suspended Start: 04-02-2022 take 2 puff(s) by in halation twice daily fluticasone-salmeterol HFA (ADVAIR HFA) 230-21 mcg/actuation inhaler Inhale 2 Puffs as instructed twice daily. 1 Each 04/02/2022 Active Start: 02-10-2022 End: 10-19-2022 Fluticasone Propion-Salmeter ol (Advair Diskus) 250-50 mcg/dose blister with device Discontinued 1 INH INHALATION Q12H 60 February 10, 2022 12:00am October 19, 2022 3:50pm Start: 02-10-2022 End: 10-19-2022 Fluticasone Propion-Salmeter ol (Advair Diskus) 250-50 mcg/dose blister with device Discontinued 1 INH INHALATION Q12H 60 February 10, 2022 1:00am October 19, 2022 4:50pm Start: 02-10-2022 Fluticasone Pr opion-Salmeterol (Advair Diskus) 250-50 mcg/dose blister with device Active 1 INH INHALATION Q12H 60 February 10, 2022 12:00am Start: 08-15-2021 Fluticasone Pr opion-Salmeterol (Advair Diskus) 250-50 mcg/dose Blister With Device Active 1 INH INHALATION TWICE A DAY August 15, 2021 4:04pm Start: 08-15-2021 End: 10-19-2022 Fluticasone Propion-Salmeter ol (Advair Diskus) 250-50 mcg/dose Blister With Device Discontinued 1 INH INHALATION TWICE A DAY August 14, 2021 11:00pm October 19, 2022 3:50pm Start: 08-15-2021 End: 10-19-2022 Fluticasone Propion-Salmeter ol (Advair Diskus) 250-50 mcg/dose Blister With Device Discontinued 1 INH INHALATION TWICE A DAY August 15, 2021 12:00am October 19, 2022 4:50pm Start: 08-15-2021 Fluticasone Pr opion-Salmeterol (Advair Diskus) 250-50 mcg/dose Blister With Device Active 1 INH INHALATION TWICE A DAY August 14, 2021 11:00pm Start: 07-31-2021 take 2 puff(s) by in halation twice daily fluticasone-salmeterol HFA (ADVAIR HFA) 230-21 mcg/actuation inhaler Inhale 2 Puffs as instructed twice daily. 1 Each 5 07/31/2021 Active Comment on above: Inhale 2 Puffs as in structed twice daily. inhale 2 puffs by mo ut and INTO THE LUNGS twice a day as directed Nebulizer (3 sources) Start: 06-06-19 Nebulizer See Instructions, use up to four times daily, # 1 EA, 0 Refill(s), 74.9 Start Date: 06/05/20 Status: Ordered nystatin 495425 unt/ml oral suspension (1 source) Polyene Antifungal Start: 03-22-19 Nystatin Active 231011 UNIT PO DAILY March 22, 2021 3:20pm administer 1/2 of dose in each side of the mouth ondansetron (ZOFRAN-ODT) disintegrating tablet 4 mg (1 source) Start: 07-03-19 ondansetron (ZOFRAN-ODT) disintegrating tablet 4 mg pantoprazole 40 mg delayed release oral tablet (20 sources) Proton Pump Inhibitor Start: 02-05-20 End: 04-01-19 take 1 tablet by mouth twice daily pantoprazole DR (PROTONIX) 40 mg tablet Indications: Other gastritis without bleeding Take 1 tablet by mouth twice daily. 180 tablet 3 04/01/2022 Active Start: 02-04-2018 take 1 tablet by kelin th once daily before breakfast pantoprazole (ProtoNix) 40 MG EC tablet TAKE ONE TABLET BY MOUTH EVERY MORNING BEFORE BREAKFAST 30 tablet 0 07/10/2021 Active End: 07-10-2021 take 1 tablet by mouth once daily pantoprazole (PROTONIX) 20 MG tablet Take 20 mg by mouth daily 0 07/10/2021 Discontinued (Stop Taking at Discharge) Comment on above: Take 1 tablet by kelin th twice daily. perflutren lipid microspheres 1.3 mL in NaCl (PF) 0.9% 10 mL injection (DEFINITY) (20 sources) Start: 09-06-2022 End: 12-06-2023 perflutren lipid microspheres 1.3 mL in NaCl (PF) 0.9% 10 mL injection (DEFINITY) predniSONE 50 mg oral tablet (20 sources) Start: 12-04-2022 End: 12-08-2022 take 1 tablet by mouth once daily predniSONE (Deltasone) 50 MG tablet Take 1 tablet (50 mg) by mouth daily for 4 days. First dose provided in ED, start tomorrow 4 tablet 0 12/04/2022 12/08/2022 Active Start: 10-19-2022 End: 11-12-2022 take 40 mg by mouth once daily Prednisone Discontinued 40 MG PO DAILY 10 October 19, 2022 12:00am November 12, 2022 3:02pm Start: 09-06-2022 End: 09-15-2022 predniSONE (DELTASONE) 10 mg tablet Indications: Acute bilateral low back pain with bilateral sciatica Take 4 tabs daily for 3 days, then 2 tabs daily for 3 days, then 1 tab daily for 3 days with food. 21 tablet 0 09/06/2022 09/15/2022 Active Start: 02-10-2022 End: 10-19-2022 take 60 mg by mouth once daily Prednisone Discontinued 60 MG PO DAILY February 10, 2022 1:00am October 19, 2022 4:50pm Start: 08-17-2021 take 40 mg by mouth once daily Prednisone Active 40 MG PO DAILY 12 16August 17, 2021 1:00pm Start: 08-01-2021 End: 08-06-2021 predniSONE 10 mg oral tablet Dose : 40 mg = 4 tab(s), Oral, qDay, # 20 tab(s), 0 Refill(s) Start Date: 08/01/21 Stop Date: 08/06/21 Status: Ordered Start: 07-11-2021 predniSONE (DE LTASONE) tablet 40 mg Start: 07-01-2021 End: 07-01-2021 predniSONE (DELTASONE) table t 40 mg Start: 06-21-2021 End: 06-26-2021 predniSONE 20 mg oral tablet Dose : 40 mg = 2 tab(s), Oral, qDay, X 5 day(s), # 10 tab(s), 0 Refill(s), 06/26/21 0:07:00 EDT Start Date: 06/21/21 Stop Date: 06/26/21 Status: Ordered Start: 03-22-2021 Prednisone Act vu 10 MG PO DAILY March 22, 2021 3:18pm 4 tablets x 4 days, 3 tablets x 4 days, 2 tablets x 4 days, 1 tablet x 4 days Start: 09-05-2020 End: 09-17-2020 predniSONE (DELTASONE) 10 mg tablet Take 6 tabs for 3 days, then 4 tabs for 3 days, then 2 tabs for 3 days then 1 tab for 3 days with food. 39 tablet 09/05/2020 09/17/2020 Start: 06-21-2020 End: 06-30-2020 take 1 tablet by mouth once daily prednisone 20mg tab (TAPER) Taper 60-40-20 mg x 3 days each dose, Oral, Daily, # 18 tab(s), 0 Refill(s), [facility]acy: [facility] 177.8, cm, 06/20/20 10:49:00 EDT, Height, kg, 06/20/20 10:49:00 EDT, Dosing Weight Start Date: 06/21/20 Stop Date: 06/30/20 Status: Ordered Comment on above: Take 4 tabs daily fo r 3 days, then 2 tabs daily for 3 days, then 1 tab daily for 3 days with food. Spiriva Respimat 2.5 mcg/inh inhalation aerosol (3 sources) Start: 10-29-19 Spiriva Respimat 2.5 mcg/inh inhalation aerosol 2 puff(s), Inhalation, qDay, # 4 gram(s), 0 Refill(s) Start Date: 10/28/17 Status: Ordered Symbicort 160 mcg-4.5 mcg/inh Inhaler (3 sources) Start: 10-02-19 take 1 dose by inhalation twice daily Symbicort 160 mcg-4.5 mcg/inh Inhaler Dose = 2 puff(s), Inhalation, BID, 0 Refill(s) Start Date: 10/02/19 Status: Ordered 10 actuat tiotropium 0.0025 mg/actuat inhalation spray (20 sources) Anticholinergic Start: 03-30-19 take 2 puff(s) by inhalation once daily tiotropium bromide (SPIRIVA RESPIMAT) 2.5 mcg/actuation inhaler Inhale 2 Puffs as instructed once daily. 4 g 11 03/30/2024 Active Start: 03-01-2023 take 2 puff(s) by in halation once daily tiotropium bromide (SPIRIVA RESPIMAT) 2.5 mcg/actuation inhaler Inhale 2 Puffs as instructed once daily. 1 Each 11 03/01/2023 Active Start: 07-15-2021 End: 07-16-2021 take 2 puff(s) by mouth once daily tiotropium bromide (SPIRIVA RESPIMAT) 2.5 mcg/actuation inhaler Indications: COPD, severe (HCC) , Centrilobular emphysema (HCC) , Tobacco use disorder inhale 2 puffs by mouth once daily 4 g 5 07/15/2021 07/16/2021 Discontinued (Changing Therapy/Dosage Form) Start: 07-02-2021 take 1 capsule by in halation twice daily 18 mcg, Inhalation, DAILY, First dose on [facility] 07/02/21 at 0900, Until Discontinued Please select a reason the therapeutic interchange was not accepted: Okay for Pharmacy to Substitute Not for oral use. To ensure drug delivery the contents of each capsule should be inhaled twice Start: 05-29-2021 take 2 puff(s) by mo uth once daily tiotropium bromide (SPIRIVA RESPIMAT) 2.5 mcg/actuation inhaler Indications: COPD, severe (HCC) , Centrilobular emphysema (HCC) , Tobacco use disorder inhale 2 puffs by mouth once daily 4 g 5 05/29/2021 Active Start: 09-05-2020 End: 11-19-2020 take 2 puff(s) by mouth once daily tiotropium bromide (SPIRIVA RESPIMAT) 2.5 mcg/actuation inhaler inhale 2 puffs by mouth once daily 4 g 09/05/2020 11/19/2020 Discontinued Start: 06-05-2014 take 1 puff(s) by in halation once daily Tiotropium Jean (Spiriva With Handihaler) 1 PUFF inhaler Active 1 PUFF INHALATION DAILY June 05, 2014 4:55am take 1 capsule by in halation once daily tiotropium (SPIRIVA) 18 MCG inhalation capsule Inhale 18 mcg into the lungs daily 0 Active Comment on above: inhale 2 puffs by mo ut once daily Inhale 2 Puffs as in structed once daily. traZODone hydrochloride 50 mg oral tablet (20 sources) Serotonin Reuptake Inhibitor Start: 03-20-2021 Trazodone Active 100 - 150 MG PO NEEDED March 20, 2021 1:00am Start: 09-23-2019 End: 11-19-2020 take 1-3 tablets by mouth once daily at bedtime traZODone (DESYREL) 50 mg tablet Indications: Chronic insomnia Take 1-3 tablets by mouth daily at bedtime. 90 tablet 3 11/19/2020 Active Comment on above: Take 1-3 tablets by mouth daily at bedtime. Completed/Discontinued Medications Medication Drug Class(es) Dates Sig (Normalized) Sig (Original) 20 ml albumin human, care home 250 mg/ml injection (4 sources) Human Serum Albumin Start: 01-29-2023 End: 01-29-2023 50 g, IntraVENous, at 200 mL/hr, Administer over 1 Hours, Once, On 01/29/23 at 1930, For 1 dose Start: 01-27-2023 End: 01-27-2023 50 g, IntraVENous, at 200 mL /hr, Administer over 1 Hours, Once, On Tiffanie 01/27/23 at 0600, For 1 dose albuterol 0.83 mg/ml inhalation solution (20 sources) beta2-Adrenergic Agonist Start: 01-26-2023 End: 02-08-2023 2.5 mg, Nebulization, Every 2 hour PRN, wheezing, Starting on Tue01/26/23 at 2002, Initiate RT Bronchodilator Protocol: Start: 12-04-2022 Start: 12-04-2022 End: 03-10-2023 Start: 12-04-2022 End: 01-03-2023 albuterol (2.5 MG/3ML) 0.083 % nebulizer solution Take 3 mL (2.5 mg) by nebulization every 6 hours as needed for wheezing. 3 mL 0 12/04/2022 01/03/2023 Active Start: 12-04-2022 End: 01-03-2023 take 2 puff(s) by inhalation every four hours as needed for wheezing albuterol 108 (90 Base) MCG/ACT inhaler Inhale 2 puffs every 4 hours as needed for wheezing. 18 g 0 12/04/2022 01/03/2023 Active Start: 02-10-2022 take 1 puff(s) by in halation every four hours as needed Albuterol Sulfate (Ventolin Hfa) 90 mcg/actuation HFA aerosol inhaler Active 2 PUFF INHALATION EVERY 4 HOURS NEEDED February 10, 2022 1:00am Start: 06-05-2020 take 1 mL by inhalat ion every four hours as needed for wheezing albuterol 5 mg/mL (0.5%) inhalation solution Dose : 5 mg = 1 mL, Inhalation, q4h, PRN as needed for wheezing, # 20 mL, 0 Refill(s) Start Date: 06/05/20 Status: Ordered take 2 puff(s) by in halation once daily albuterol 108 (90 Base) MCG/ACT inhaler Inhale 2 puffs daily. 0 Suspended albuterol 0.833 mg/ml / ipratropium bromide 0.167 mg/ml inhalation solution (20 sources) Anticholinergic, beta2-Adrenergic Agonist Start: 02-04-2023 End: 02-08-2023 3 mL, Nebulization, 3 times daily, First dose (after last modification) on Tue02/04/23 at 2130 Start: 01-26-2023 3 mL, Nebuliza tion, Once, On Tue01/26/23 at 1455, For 1 dose Start: 12-04-2022 ipratropium-al buterol (Duo-Neb) 0.5-2.5 mg/3 mL nebulizer solution 3 mL Start: 12-04-2022 ipratropium-al buterol (Duo-Neb) 0.5-2.5 mg/3 mL nebulizer solution 3 mL Start: 11-27-2022 ipratropium-al buterol (Duo-Neb) 0.5-2.5 mg/3 mL nebulizer solution 3 mL Start: 08-15-2021 End: 02-04-2023 take 1 mL by inhalation every four hours Ipratropium-Albuterol Active 3 ML INHALATION Q4H August 15, 2021 12:00am Start: 07-29-2021 take 3 mL by inhalat ion every four hours as needed for wheezing ipratropium-albuterol (DUONEB) 0.5 mg-3 mg(2.5 mg base)/3 mL nebu Indications: Stage 4 very severe COPD by GOLD classification ([facility]) Inhale 3 mL as instructed every 4 hours as needed for wheezing/shortness of breath. 120 Vial 5 07/29/2021 Active Start: 07-29-2021 Start: 07-16-2021 take 3 mL by inhalat ion every four hours as needed for wheezing ipratropium-albuterol (DUONEB) 0.5 mg-3 mg(2.5 mg base)/3 mL nebu Indications: Stage 4 very severe COPD by GOLD classification ([facility]) Inhale 3 mL as instructed every 4 hours as needed for wheezing/shortness of breath. 120 Vial 5 07/16/2021 Active Start: 07-02-2021 End: 07-08-2021 ipratropium-albuterol (DUONE B) nebulizer solution 1 ampule Comment on above: Inhale 3 mL as instr ucted every 4 hours as needed for wheezing/shortness of breath. aluminum hydroxide 40 mg/ml / magnesium hydroxide 40 mg/ml / simethicone 4 mg/ml oral suspension (1 source) Start: 07-03-19 take 30 mL by mouth every six hours as needed 30 mL, Oral, EVERY 6 HOURS PRN, Starting on Tiffanie 07/02/21 at 0003, Until Discontinued, Indigestion azithromycin 250 mg oral tablet (5 sources) Macrolide Antimicrobial Start: 07-18-19 End: 07-23-19 take 1 tablet by mouth once daily Zithromax Z-Rocky 250 mg oral tablet 1 dose, Oral, Daily, # 6 tab(s), 0 Refill(s), Dehydration, 62 Start Date: 07/17/21 Stop Date: 07/22/21 Status: Ordered Start: 06-21-2020 End: 06-25-2020 azithromycin 500 mg oral tab let Dose : 500 mg = 1 tab(s), Oral, qDay, # 4 tab(s), 0 Refill(s), Pharmacy: [address], 177.8, cm, 06/20/20 10:49:00 EDT, Height, 75, kg, 06/20/20 10:49:00 EDT, Dosing Weight Start Date: 06/21/20 Stop Date: 06/25/20 Status: Ordered bisacodyl 10 mg rectal suppository (4 sources) Stimulant Laxative Start: 02-02-2023 End: 02-08-2023 take 10 mg rectal route every twenty-four hours as needed for constipation 10 mg, Rectal, Daily PRN, constipation, Starting on 02/06/23 at 1230 budesonide 0.25 mg/ml inhalation suspension (2 sources) Corticosteroid Start: 01-27-2023 End: 02-08-2023 take 0.5 mg by mouth once daily 0.5 mg, Nebulization, Daily, First dose on Tiffanie 01/27/23 at 0800, Rinse mouth with water after use to reduce aftertaste and incidence of candidiasis. Do not swallow. Budesonide / formoterol (6 sources) Corticosteroid, beta2-Adrenergic Agonist Start: 05-29-2021 End: 07-16-2021 take 2 puff(s) by inhalation twice daily budesonide-formote rol (SYMBICORT) 160-4.5 mcg/actuation inhaler Indications: COPD, severe (HCC) , Centrilobular emphysema (HCC) , Tobacco use disorder Inhale 2 Puffs as instructed twice daily. 3 Inhaler 5 05/29/2021 07/16/2021 Discontinued (Changing Therapy/Dosage Form) Start: 05-29-2021 take 2 puff(s) by in halation twice daily budesonide-formoterol (SYMBICORT) 160-4.5 mcg/actuation inhaler Indications: COPD, severe (HCC) , Centrilobular emphysema (HCC) , Tobacco use disorder Inhale 2 Puffs as instructed twice daily. 3 Inhaler 5 05/29/2021 Active Start: 03-20-2021 take 1 puff(s) by in halation twice daily Budesonide-Formoterol (Symbicort) 160-4.5 mcg/actuation HFA aerosol inhaler Active 2 PUFF INHALATION TWICE A DAY March 20, 2021 4:31am Start: 09-05-2020 End: 11-19-2020 take 2 puff(s) by inhalation twice daily budesonide-formoterol (SYMBICORT) 160-4.5 mcg/actuation inhaler Inhale 2 Puffs as instructed twice daily. 3 Inhaler 3 09/05/2020 11/19/2020 Discontinued Comment on above: Inhale 2 Puffs as in structed twice daily. buPROPion hydrochloride 75 mg oral tablet (20 sources) Aminoketone Start: 01-29-2023 End: 02-04-2023 take 150 mg by mouth twice daily 150 mg, Oral, 2 times daily, First dose on Tue01/29/23 at 2100 Start: 01-26-2023 End: 01-29-2023 take 100 mg by mouth twice daily 100 mg, Oral, 2 times daily, First dose on Tue01/26/23 at 2145 Start: 05-29-2021 End: 08-10-2023 take 1 tablet by mouth once daily buPROPion XL (WELLBUTRIN XL) 300 mg 24 hr tablet Indications: COPD, severe (HCC) , Centrilobular emphysema (HCC) , Tobacco use disorder Take 1 tablet by mouth once daily. 90 tablet 1 05/29/2021 08/10/2023 Discontinued Comment on above: Take 1 tablet by kelin th once daily. busPIRone hydrochloride 5 mg oral tablet (1 source) Start: 05-30-19 End: 11-20-19 take 1 tablet by mouth twice daily busPIRone (BUSPAR) 5 mg tablet Take 1 tablet by mouth twice daily. 60 tablet 3 05/29/2018 11/19/2020 Discontinued (Course of therapy completed) calcium chloride 0.0014 meq/ml / potassium chloride 0.004 meq/ml / sodium chloride 0.103 meq/ml / sodium lactate 0.028 meq/ml injectable solution (14 sources) Start: 02-05-20 End: 02-08-20 take 75 mL intravenously every hour 75 mL/hr, IntraVENous, Continuous, Starting on Tue02/04/23 at 1745 Start: 01-29-2023 End: 01-29-2023 500 mL, IntraVENous, at 500 mL/hr, Administer over 1 Hours, Once, On Tue01/29/23 at 1930, For 1 dose Start: 01-26-2023 End: 01-27-2023 500 mL, IntraVENous, at 500 mL/hr, Administer over 1 Hours, Once, On Tiffanie 01/27/23 at 0130, For 1 dose Start: 01-26-2023 End: 01-28-2023 take 75 mL intravenously every hour 75 mL/hr, IntraVENous, Continuous, Starting on Tue01/26/23 at 2315, For 24 days chlorhexidine gluconate 1.2 mg/ml mouthwash (4 sources) Start: 01-29-2023 End: 02-04-2023 take 1 dose by mouth four times daily 15 mL, Mouth/Throat, 2 times daily, First dose on Tue01/29/23 at 2100, Combine with scheduled oral cares by swabbing oral cavity and teeth with chlorhexidine four times daily. Start: 01-26-2023 End: 01-28-2023 take 1 dose by mouth four times daily 15 mL, Mouth/Throat, 2 times daily, First dose on Tue01/26/23 at 2100, Combine with scheduled oral cares by swabbing oral cavity and teeth with chlorhexidine four times daily. cholecalciferol 9.52 unt/ml / glucose 357 mg/ml oral gel (2 sources) Vitamin D Start: 01-26-2023 End: 02-08-2023 15 g, Oral, As needed, low blood sugar, Starting on Tue01/26/23 at 2137, If blood glucose less than 50 mg/dL and patient ALERT and NOT NPO, give 2 tubes glucose gel. If blood glucose less than 70 mg/dL and patient ALERT and NOT NPO, give 1 tube glucose gel. Repeat blood glucose in 15 minutes. If blood glucose is less than 70 mg/dL, repeat treatment and recheck blood glucose in 15 minutes x2 and notify provider. cyclobenzaprine hydrochloride 10 mg oral tablet (20 sources) Muscle Relaxant Start: 09-06-2022 End: 08-10-2023 take 1 tablet by mouth three times daily as needed for muscle spasms cyclobenzaprine (FLEXERIL) 10 mg tablet Indications: Acute bilateral low back pain with bilateral sciatica Take 1 tablet by mouth three times daily as needed for muscle spasm. 30 tablet 0 09/06/2022 08/10/2023 Discontinued Comment on above: Take 1 tablet by kelin three times daily as needed for muscle spasm. 100 ml dexmedetomidine 0.004 mg/ml injection (4 sources) Central alpha-2 Adrenergic Agonist Start: 01-31-2023 End: 02-06-2023 0.1-1.5 mcg/kg/hr 81.6 kg (2.04-30.6 mL/hr), IntraVENous, Continuous, Starting on Tue01/31/23 at 1215, If Titrate Infusion? is No: Disregard instructions below. If Titrate infusion? is Yes: Titrate in increments of 0.2 mcg/kg/hr no more frequently than every 30 minutes to goal of therapy. If after titration rate change patient exhibits adverse hemodynamic response, next titration rate change may be adjusted by one-half of the previous rate change. If patient fails sedation interruption, resume dexmedetomidine infusion at 50% of previous rate., Titrate Infusion? Yes, Initial Infusion Dose: 0.2 mcg/kg/hr, Goal of Therapy: RASS 0 to -1, Contact Provider if: New onset HR less than 50 bpm, New onset SBP less than 90 mmHg, Patient is receiving maximum dose and is not achieving the goal of therapy Start: 01-28-2023 End: 01-29-2023 0.1-1.5 mcg/kg/hr 84.1 kg (2 .1025-31.5375 mL/hr, rounded to 2.1-31.54 mL/hr), IntraVENous, Continuous, Starting on Tue01/28/23 at 1000, If Titrate Infusion? is No: Disregard instructions below. If Titrate infusion? is Yes: Titrate in increments of 0.2 mcg/kg/hr no more frequently than every 30 minutes to goal of therapy. If after titration rate change patient exhibits adverse hemodynamic response, next titration rate change may be adjusted by one-half of the previous rate change. If patient fails sedation interruption, resume dexmedetomidine infusion at 50% of previous rate., Titrate Infusion? Yes, Initial Infusion Dose: 0.2 mcg/kg/hr, Goal of Therapy: RASS 0 to -1, Contact Provider if: New onset HR less than 50 bpm, New onset SBP less than 90 mmHg, Patient is receiving maximum dose and is not achieving the goal of therapy 1 ml diphenhydrAMINE hydrochloride 50 mg/ml cartridge (1 source) Histamine-1 Receptor Antagonist Start: 07-01-2021 End: 07-01-2021 diphenhydrAMINE (BENADRYL) injection 25 mg docusate sodium 50 mg / sennosides, care home 8.6 mg oral tablet (2 sources) Start: 01-26-2023 End: 02-08-2023 take 1 tablet by mouth twice daily 1 tablet, Oral, 2 times daily, First dose on Tue01/26/23 at 2100, On hold since Tue02/04/2023 at 0710 until manually unheld doxycycline monohydrate 100 mg oral capsule (5 sources) Tetracycline-clas s Drug Start: 02-10-2022 End: 10-19-2022 take 100 mg by mouth twice daily Doxycycline Monohydrate Discontinued 100 MG PO TWICE A DAY February 10, 2022 1:00am October 19, 2022 4:50pm Start: 06-21-2021 End: 06-28-2021 doxycycline hyclate 100 mg o ral tablet Dose : 100 mg = 1 tab(s), Oral, BID, X 7 day(s), # 14 tab(s), 0 Refill(s), 06/28/21 0:06:00 EDT, 75 Start Date: 06/21/21 Stop Date: 06/28/21 Status: Ordered 0.4 ml enoxaparin sodium 100 mg/ml prefilled syringe (3 sources) Low Molecular Weight Heparin Start: 01-27-2023 End: 02-08-2023 inject 40 mg by subcutaneous injection every twenty-four hours 40 mg, SubCUTAneous, Every 24 hours scheduled (Daily), First dose on Tiffanie 01/27/23 at 0900, Indication of Use: Prophylaxis-DVT/PE, Indications: Prophylaxis of Venous Thromboembolism Start: 07-02-2021 inject 40 mg by subc utaneous injection once daily 40 mg, SubCUTAneous, DAILY, First dose on Tiffanie 07/02/21 at 0900, Until Discontinued Indication of Use: Prophylaxis-DVT/PE 1 ml EPINEPHrine 1 mg/ml injection (1 source) alpha-Adrenergic Agonist, beta-Adrenergic Agonist, Catecholamine Start: 07-01-2021 End: 07-01-2021 EPINEPHrine 1 MG/ML injection 0.3 mg ferrous sulfate 325 mg oral tablet (20 sources) Start: 11-14-2022 End: 02-08-2023 take 325 mg by mouth every other day 325 mg, Oral, Every other day, First dose (after last modification) on Tue02/01/23 at 0900, On hold since Tue02/04/2023 at 0710 until manually unheld Start: 11-14-2022 End: 01-31-2023 take 1 tablet by mouth once daily Ferrous Sulfate (Iron (Ferrous Sulfate)) 325 mg (65 mg iron) tablet Active 325 MG PO DAILY November 14, 2022 12:00am Start: 12-29-2018 End: 11-19-2020 take 1 tablet by mouth once daily Ferrous Sulfate (SLOW FE) 142 mg (45 mg iron) TbER Take 1 tablet by mouth once daily. 90 tablet 1 12/29/2018 11/19/2020 Discontinued (Course of therapy completed) vljbmqstktc-ginebxjxg-uyhoaj er (TRELEGY ELLIPTA) 200-62.5-25 mcg inhalation powder (6 sources) Start: 07-29-2021 End: 07-31-2021 take 1 puff(s) by inhalation once daily vcsctspktog-gkdfugene-jgkulxnr (TRELEGY ELLIPTA) 200-62.5-25 mcg inhalation powder Inhale 1 Puff as instructed once daily. 1 Each 07/29/2021 07/31/2021 Discontinued (Not on Formulary) Start: 07-16-2021 take 1 puff(s) by inhalation once daily ieuvhmrwcfe-emcxxkbvy-pzbcvguh (TRELEGY ELLIPTA) 200-62.5-25 mcg inhalation powder Inhale 1 Puff as instructed once daily. 1 Each 07/16/2021 Active Comment on above: Inhale 1 Puff as ins tructed once daily. glucagon (rdna) 1 mg injection (2 sources) Antihypoglycemic Agent Start: 01-26-2023 End: 02-08-2023 1 mg, IntraMUSCular, PRN, low blood sugar, Blood glucose less than 70 mg/dL and patient NOT ALERT or NPO and does not have IV access., Starting on Tue01/26/23 at 2137, After administration, attempt intravenous access and start D5W at 100 mL/hr. Repeat blood glucose in 15 minutes x2 and notify provider. 150 ml glucose 50 mg/ml injection (4 sources) Start: 01-26-2023 End: 02-08-2023 12.5 g, IntraVENous, PRN, low blood sugar, Blood glucose less than 70 mg/dL and patient NOT ALERT or NPO., Starting on Tue01/26/23 at 2137, If patient does not respond within 5 minutes, repeat dose x1. Start D5W at 100 mL/hour until ordering provider can be reached. Repeat blood glucose in 15 minutes. If blood glucose is less than 70 mg/dL, repeat treatment and recheck blood glucose in 15 minutes x2. If using Glucostabilizer, dose as instructed per system. Start: 01-26-2023 End: 02-08-2023 100 mL/hr, IntraVENous, PRN, Blood sugar less than 70mg/dL, Starting on Tue01/26/23 at 2137, Start infusion following administration of dextrose 50% or glucagon. guaiFENesin 20 mg/ml oral solution (7 sources) Start: 01-26-2023 End: 02-05-2023 take 200 mg by mouth every eight hours 200 mg, Oral, Every 8 hours, First dose on Tue01/26/23 at 2100, On hold since Tue02/04/2023 at 0710 until manually unheld Start: 04-13-2021 take 600 mg by mouth twice daily 600 mg, Oral, 2 TIMES DAILY, First dose on Tiffanie 07/02/21 at 0030, Until Discontinued Do not crush or break. Start: 06-21-2020 End: 07-21-2020 Mucinex 600 mg oral tablet, extended release Dose : 600 mg = 1 tab(s), Oral, BID, # 60 tab(s), 0 Refill(s), [facility], 177.8, cm, 06/20/20 10:49:00 EDT, Height, kg, 06/20/20 10:49:00 EDT, Dosing Weight Start Date: 06/21/20 Stop Date: 07/21/20 Status: Ordered 1 ml HYDROmorphone hydrochloride 1 mg/ml cartridge (2 sources) Opioid Agonist Start: 01-29-2023 End: 02-05-2023 take 0.5 mg by mouth every two hours as needed for pain 0.5 mg, IntraVENous, Every 2 hour PRN, moderate pain (4-6), Starting on 01/29/23 at 1918, If oral and IV narcotics ordered, use oral first and only use IV if oral is ineffective or cannot take oral. Do Not give oral and IV within 1 hour of each other unless specifically ordered. 1 ml hydrOXYzine hydrochloride 50 mg/ml injection (8 sources) Antihistamine Start: 02-04-2023 End: 02-06-2023 inject 25 mg by intramuscular injection every six hours as needed for anxiety 25 mg, IntraMUSCular, Every 6 hours PRN, anxiety, Starting on Tue02/04/23 at 2123 Start: 02-02-2023 End: 02-02-2023 take 50 mg by mouth once 50 mg, Oral, Once, On Tue at 1615, For 1 dose Start: 02-02-2023 End: 02-02-2023 take 25 mg by mouth once 25 mg, Oral, Once, On Tue at 1045, For 1 dose Start: 01-26-2023 End: 02-06-2023 take 25 mg by mouth every six hours as needed for anxiety 25 mg, Oral, Every 6 hours PRN, itching, anxiety, Starting on Tue01/26/23 at 2134 insulin lispro 100 unt/ml injectable solution (4 sources) Insulin Analog Start: 02-07-2023 End: 02-08-2023 inject 12 [IU] by subcutaneous injection four times daily before mealtime 0-12 Units, SubCUTAneous, 4 times daily before meals & nightly, First dose (after last modification) on Tue02/07/23 at 1100, Medium Dose Correction Algorithm Glucose: Dose: LESS than 139 No Insulin 140-199 2 Unit 200-249 4 Units 250-299 6 Units 300-349 8 Units 350-400 10 Units Above 400 12 Units Start: 01-26-2023 End: 02-07-2023 inject 12 [IU] by subcutaneous injection every six hours 0-12 Units, SubCUTAneous, Every 6 hours, First dose on Tue01/26/23 at 2145, Medium Dose Correction Algorithm Glucose: Dose: LESS than 139 No Insulin 140-199 2 Unit 200-249 4 Units 250-299 6 Units 300-349 8 Units 350-400 10 Units Above 400 12 Units iopamidol (ISOVUE-370) 76 % injection 75 mL (1 source) Start: 07-01-2021 End: 07-01-2021 iopamidol (ISOVUE-370) 76 % injection 75 mL 1 ml ketorolac tromethamine 15 mg/ml cartridge (1 source) Nonsteroidal Anti-inflammatory Drug, Cyclooxygenase Inhibitor Start: 07-08-2021 End: 07-08-2021 ketorolac (TORADOL) injection 15 mg Start: 07-08-2021 End: 07-08-2021 ketorolac (TORADOL) injectio n 15 mg lidocaine hydrochloride 0.02 mg/mg topical gel (6 sources) Antiarrhythmic, Amide Local Anesthetic Start: 02-03-2023 End: 02-03-2023 apply 0.5 mL topically once Topical, Once, On Tiffanie 02/03/23 at 1115, For 1 dose, Draw up and instill 0.5 mL into the nares 5 minutes before inserting tube. If oxymetazoline is also ordered, instill the Lidocaine jelly after instilling the oxymetazoline spray. Start: 02-01-2023 End: 02-08-2023 apply 1 dose transdermal route once daily, then apply 1 dose transdermal route every twelve hours 1 patch, TransDERmal, Administer over 12 Hours, Daily, First dose on Tue02/01/23 at 1200, Apply patch to back. Patch may remain in place for up to 12 hours in any 24 hour period. Start: 01-26-2023 End: 01-26-2023 Starting on Tue01/26/23 at 1528, For 1 dose, Lizzeth Evans: matty override 1 ml LORazepam 2 mg/ml injection (6 sources) Benzodiazepine Start: 02-05-2023 End: 02-05-2023 1 mg, IntraVENous, Once, On Tue02/05/23 at 0915, For 1 dose, Prior to speech eval For IV doses dilute dose with 1ml NS. Start: 02-02-2023 End: 02-03-2023 0.5 mg, IntraVENous, Once, O n Tiffanie 02/03/23 at 0000, For 1 dose, For IV doses dilute dose with 1ml NS. 50 ml magnesium sulfate 40 mg/ml injection (3 sources) Start: 01-26-2023 End: 01-27-2023 2,000 mg, IntraVENous, at 25 mL/hr, Administer over 2 Hours, Once, On Tue01/26/23 at 2315, For 1 dose, Recommended infusion rate not to exceed 1,000 mg (milligrams) per hour. Start: 07-07-2021 End: 07-07-2021 magnesium sulfate 2000 mg in 50 mL IVPB premix methylPREDNISolone 40 mg injection (7 sources) Corticosteroid Start: 01-28-2023 End: 01-31-2023 40 mg, IntraVENous, Every 24 hours, First dose (after last modification) on Tue01/28/23 at 1300, For 4 doses Start: 01-26-2023 End: 01-27-2023 take 60 mg intravenously every eight hours 60 mg, IntraVENous, Every 8 hours, First dose on Tue01/26/23 at 2200 Start: 01-26-2023 End: 01-26-2023 125 mg, IntraVENous, Once, O n Tue01/26/23 at 1455, For 1 dose Start: 01-26-2023 End: 01-26-2023 125 mg, IntraVENous, Once, O n Tue01/26/23 at 1455, For 1 dose Start: 07-10-2021 End: 07-10-2021 methylPREDNISolone sodium (SOLU-MEDROL) injection 80 mg 2 ml metoclopramide 5 mg/ml prefilled syringe (3 sources) Dopamine-2 Receptor Antagonist Start: 02-03-2023 End: 02-05-2023 5 mg, IntraVENous, 3 times daily, First dose on Tiffanie 02/03/23 at 1400 Start: 07-01-2021 End: 07-01-2021 metoclopramide (REGLAN) inje ction 10 mg 5 ml metoprolol tartrate 1 mg/ml injection (1 source) beta-Adrenergic Ayleen Start: 07-17-2021 End: 07-17-2021 metoprolol tartrate 1 mg/mL injectable solution Start: 07/17/21 18:30:00 EDT, Dose = 5 mg, = 5 mL, IV Push, now, Stop: 07/17/21 18:30:00 EDT, 07/17/21 18:19:00 EDT Start Date: 07/17/21 Stop Date: 07/17/21 Status: Completed 2 ml midazolam 1 mg/ml injection (4 sources) Benzodiazepine Start: 01-29-2023 End: 01-29-2023 2 mg, IntraVENous, Every 2 hour PRN, sedation, Starting on 01/29/23 at 1917 Start: 01-29-2023 End: 01-29-2023 Starting on 01/29/23 at 1849, For 1 dose, Margot Russell: shirat override 24 hr nicotine 0.875 mg/hr transdermal system (20 sources) Cholinergic Nicotinic Agonist Start: 01-26-2023 End: 02-08-2023 apply 1 dose transdermal route once daily at bedtime 1 patch, TransDERmal, Administer over 24 Hours, Daily, First dose on Tue01/26/23 at 2100, Apply new patch to nonhairy, clean, dry skin on the upper body or upper outer arm. Rotate patch sites. Notify Pharmacy if patient or provider prefers patch to be removed at bedtime and replaced in the morning. Start: 08-15-2021 apply 1 dose transde rmal route once daily Nicotine Active 1 PATCH TD DAILY August 15, 2021 4:04pm Start: 05-29-2021 End: 08-10-2023 apply 1 dose transdermal route every twenty-four hours at bedtime nicotine (NICODERM) 21 mg/24 hr Indications: COPD, severe (HCC) , Centrilobular emphysema (HCC) , Tobacco use disorder Apply 1 Patch as directed every 24 hours. Remove old patch at bedtime, new patch in the morning each day 30 Patch 3 07/17/2021 08/10/2023 Discontinued Comment on above: Apply 1 Patch as dir ected every 24 hours. Remove old patch at bedtime, new patch in the morning each day nitroglycerin 0.02 mg/mg topical ointment (6 sources) Nitrate Vasodilator Start: 01-26-2023 End: 01-26-2023 1 inch, TransDERmal, Administer over 6 Hours, Every 6 hours during day, First dose on Tue01/26/23 at 1500 Start: 01-26-2023 End: 01-26-2023 5-200 mcg/min (1.5-60 mL/hr) , IntraVENous, Continuous, Starting on Tue01/26/23 at 1455, If Titrate Infusion? is No: Disregard instructions below. If Titrate infusion? is Yes: If rate LESS than 20 mcg/min: Titrate by 5 mcg/min no faster than every 5 minutes to goal. If rate GREATER than or equal to 20 mcg/min: Titrate by 10 mcg/min no faster than every 5 minutes to goal., Titrate Infusion? No, Infusion Dose: Other, Other (mcg/min): 40 Start: 01-26-2023 End: 01-26-2023 Starting on Tue01/26/23 at 1444, For 1 dose, Deja Story: cabinet override oxyCODONE hydrochloride 5 mg oral tablet (2 sources) Opioid Agonist Start: 01-29-2023 End: 02-05-2023 take 5 mg by mouth every four hours as needed for pain 5 mg, Oral, Every 4 hours PRN, moderate pain (4-6), Starting on 01/29/23 at 0913, On hold since 01/29/2023 at 1747 until manually unheld oxymetazoline hydrochloride 0.5 mg/ml nasal spray (2 sources) Start: 02-03-2023 End: 02-03-2023 2 spray, Each Nostril, Once, On Tue02/03/23 at 1115, For 1 dose, Two sprays in each nares 5 minutes prior to inserting tube. pantoprazole (PROTONIX) 40 mg in sodium chloride (PF) 10 mL injection (1 source) Start: 07-02-2021 End: 07-08-2021 40 mg, IntraVENous, DAILY, First dose on Tue07/02/21 at 0900 Reconstitute with 10 mL 0.9 % sodium chloride and administer over at least 2 minutes. piperacillin 3000 mg / tazobactam 375 mg injection (1 source) Penicillin-class Antibacterial, beta Lactamase Inhibitor Start: 07-11-2021 End: 07-12-2021 piperacillin-tazoba ctam (ZOSYN) 3375 mg in dextrose 50 mL IVPB extended infusion (premix) polyethylene glycol 3350 12883 mg powder for oral solution (3 sources) Osmotic Laxative Start: 01-27-2023 End: 01-29-2023 17 g, Oral, 2 times daily, First dose (after last modification) on Tue01/27/23 at 0600 Start: 07-02-2021 17 g, Oral, DA MARCUS PRN, Starting on Tue07/02/21 at 0003, Until Discontinued, Constipation First line therapy for constipation potassium bicarbonate 20 meq effervescent oral tablet (1 source) Start: 07-07-2021 End: 07-07-2021 potassium bicarb-citric acid (EFFER-K) effervescent tablet 40 mEq microencapsulated potassium chloride 10 meq extended release oral tablet (2 sources) Start: 02-08-2023 End: 02-08-2023 20 mEq, Oral, Once, On Tue02/08/23 at 1115, For 1 dose, Best given with food and plenty of water to minimize gastric irritation. Do not crush or chew. 100 ml propofol 10 mg/ml injection (8 sources) General Anesthetic Start: 01-29-2023 End: 02-04-2023 5-50 mcg/kg/min 82.6 kg (2.478-24.78 mL/hr, rounded to 2.48-24.78 mL/hr), IntraVENous, Continuous, Starting on 01/29/23 at 1845, 2nd line for sedation If Titrate Infusion? is No: Disregard instructions below. If Titrate infusion? is Yes: Titrate in increments of 5 mcg/kg/min no more frequently than every 5 minutes to goal of therapy. If after titration rate change patient exhibits adverse hemodynamic response, next titration rate change may be adjusted by one-half of the previous rate change. If patient fails sedation interruption, resume propofol infusion at 50% of previous rate. General Anesthetic - do not give without appropriate ventilation support. Do not administer propofol in same IV catheter as blood or plasma. Discard any unused portion of propofol vials and tubing after 12 hours., Titrate Infusion? Yes, Initial Infusion Rate: 20 mcg/kg/min, Goal of Therapy: RASS 0 to -1, Contact Provider if: New onset HR less than 50 bpm, New onset SBP less than 90 mmHg, Triglycerides greater than 500 mg/dL, Patient is receiving maximum dose and is not achieving the goal of therapy Start: 01-26-2023 End: 01-28-2023 5-50 mcg/kg/min 84.1 kg (2.5 23-25.23 mL/hr, rounded to 2.52- 25.23 mL/hr), IntraVENous, Continuous, Starting on 01/26/23 at 2045, If RASS 1 point below goal - decrease dose by 5 mcg/kg/min no faster than every 5 min. If RASS 2 points below goal - decrease dose by 10 mcg/kg/min no faster than every 5 min. If RASS at goal, continue current dose. If RASS 1 point above goal - increase dose by 5 mcg/kg/min no faster than every 5 min. If RASS 2 or more points above goal - increase dose by 10 mcg/kg/min no faster than every 5 min. If after titration rate change patient exhibits adverse hemodynamic response, next titration rate change may be adjusted by one-half of the previous rate change. Unless patient is on a paralytic agent or is in ARDS, propofol infusion must be stopped once per shift until the RASS score is 0. Once a RASS of zero is obtained, restart the infusion at 50% of the previous rate and resume titration to RASS above. General Anesthetic - do not give without appropriate ventilation support. Do not administer propofol in same IV catheter as blood or plasma. Discard any unused portion of propofol vials and tubing after 12 hours., Titrate Infusion? Yes, Initial Infusion Rate: 20 mcg/kg/min, Goal of Therapy: RASS 0 to -1, Contact Provider if: New onset HR less than 50 bpm, New onset SBP less than 90 mmHg, Triglycerides greater than 500 mg/dL, Patient is receiving maximum dose and is not achieving the goal of therapy Start: 01-26-2023 End: 01-26-2023 Starting on Tue01/26/23 at 1544, For 1 dose, Francois Murray: cabinet override General Anesthetic - do not give without appropriate ventilation support. QUEtiapine 25 mg oral tablet (2 sources) Atypical Antipsychotic Start: 02-01-2023 End: 02-03-2023 take 25 mg by mouth once daily 25 mg, Oral, Nightly, First dose on Tue02/01/23 at 2100 sertraline 100 mg oral tablet (20 sources) Serotonin Reuptake Inhibitor Start: 01-27-2023 End: 02-08-2023 take 100 mg by mouth once daily 100 mg, Oral, Daily, First dose on Tue01/27/23 at 0900 Start: 04-13-2021 take 1 tablet by kelin th once daily sertraline (ZOLOFT) 25 MG tablet Take 1 tablet by mouth daily 30 tablet 3 04/13/2021 Active Start: 10-02-2019 End: 09-29-2020 take 1 tablet by mouth once daily sertraline (ZOLOFT) 50 mg tablet Take 1 tablet by mouth once daily. 30 tablet 3 03/31/2020 09/29/2020 Discontinued Start: 11-19-2014 End: 10-22-2025 take 1 tablet by mouth once daily sertraline (ZOLOFT) 100 mg tablet Indications: EDI (generalized anxiety disorder) Take 1 tablet by mouth once daily. 90 tablet 1 04/09/2024 10/22/2024 Discontinued Comment on above: Take 1 tablet by kelin th once daily. 50 ml sodium chloride 9 mg/ml injection (20 sources) Start: 12-04-2022 End: 12-04-2022 sodium chloride 0.9 % bolus 500 mL Start: 09-06-2022 End: 12-06-2023 sodium chloride 0.9 % (flush ) 10 mL (BD POSIFLUSH) Start: 07-02-2021 take 1 dose intraven ously twice daily 5-40 mL, IntraVENous, EVERY 12 HOURS SCHEDULED (2 times per day), First dose on Tue07/02/21 at 0900, Until Discontinued For Line Patency: Peripheral IV = 5 mL; Midline or Central Line = 10 mL/lumen. If following IV push medication, administer flush at same rate as the IV push. Flush volume is determined by type of infusion therapy being given. For non-viscous solutions use: Peripheral IV = 5 mL Midline or Central Line = 10 mL/lumen For viscous solutions (i.e. blood components, parenteral nutrition, contrast media, or after obtaining blood sample) use: Peripheral IV = 10 mL Midline or Central Line = 20 mL/lumen Start: 07-02-2021 End: 07-03-2021 IntraVENous, at 75 mL/hr, CONTINUOUS, Starting on Tue07/02/21 at 0030 Start: 07-02-2021 IntraVENous, a t 5-250 mL/hr, PRN, if patient receiving piggyback infusions and maintenance fluids are not ordered OR KVO fluids to protect IV site / prevent frequent line interruptions/ long duration, Starting on Tue07/02/21 at 0003 For piggyback infusion, administer at same rate as piggyback for a total of 25 mL. Enter 25 mL into dose field and piggyback rate into rate field of order. If piggyback is infusing at a rate less than 100 mL/hr, enter 25 mL into dose field and 100 mL/hr into rate field of order. For KVO fluids, enter rate of 20 mL/hr or less into rate field of order. Start: 07-02-2021 take 5-40 mL intrave nously once as needed 5-40 mL, IntraVENous, PRN, Starting on Tue07/02/21 at 0003, Until Discontinued, Line Care, After every IV line use For Line Patency: Peripheral IV = 5 mL; Midline or Central Line = 10 mL/lumen. If following IV push medication, administer flush at same rate as the IV push. Flush volume is determined by type of infusion therapy being given. For non-viscous solutions use: Peripheral IV = 5 mL Midline or Central Line = 10 mL/lumen For viscous solutions (i.e. blood components, parenteral nutrition, contrast media, or after obtaining blood sample) use: Peripheral IV = 10 mL Midline or Central Line = 20 mL/lumen vitamin b12 1 mg/ml injectable solution (1 source) Vitamin B12 Start: 07-02-2021 End: 07-08-2021 cyanocobalamin injection 1,000 mcg (2 sources) Start: 02-07-2023 End: 02-07-2023 40 mEq, IntraVENous, at 125 mL/hr, Administer over 4 Hours, Once, On 02/07/23 at 1000, For 1 dose, Max infusion rate = 10 mEq/hr (20 sources) Start: 02-06-2023 End: 02-08-2023 take 25 mg intravenously every six hours as needed [Order 1 Start] Name: diphenhydrAMINE (BENADryl) injection 25 mg Signed Summary: 25 mg, IntraVENous, Every 6 hours PRN, itching, Starting on 02/06/23 at 1828 [Order 1 End] [Order 2 Start] Name: diphenhydrAMINE (BENADryl) tablet/capsule 25 mg Signed Summary: 25 mg, Oral, Every 6 hours PRN, itching, Starting on 02/06/23 at 1828 [Order 2 End] Start: 02-05-2023 End: 02-08-2023 take 12.5 mg by mouth every six hours as needed for nausea and vomiting [Order 1 Start] Name: promethazine (Phenergan) tablet 12.5 mg Signed Summary: 12.5 mg, Oral, Every 6 hours PRN, nausea, vomiting, Starting on 02/05/23 at 1838 [Order 1 End] [Order 2 Start] Name: promethazine (Phenergan) injection 12.5 mg Signed Summary: 12.5 mg, IntraMUSCular, Every 6 hours PRN, nausea, vomiting, Starting on 02/05/23 at 1838, Only to be given as IM injection. [Order 2 End] [Order 3 Start] Name: promethazine (Phenergan) suppository 12.5 mg Signed Summary: 12.5 mg, Rectal, Every 6 hours PRN, nausea, vomiting, Starting on 02/05/23 at 1838 [Order 3 End] Start: 02-03-2023 End: 02-05-2023 take 250 mg intravenously every eight hours 250 mg, IntraVENous, at 100 mL/hr, Administer over 60 Minutes, Every 8 hours, First dose on Tiffanie 02/03/23 at 1200, Suspected Indication (Select all that apply): Other, Other Abx Indication: ileus Start: 01-30-2023 End: 02-08-2023 [Order 1 Start] Name: pantop razole (ProtoNix) EC tablet 40 mg Signed Summary: 40 mg, Oral, Nightly, First dose on 01/30/23 at 2100, Do not crush, chew, or split. [Order 1 End] [Order 2 Start] Name: pantoprazole (ProtoNix) 40 mg in sodium chloride (PF) 0.9 % 10 mL injection Signed Summary: 40 mg, IntraVENous, Administer over 2 Minutes, Nightly, First dose on 01/30/23 at 2100, Give only if unable to tolerate po. [Order 2 End] Start: 01-30-2023 End: 02-08-2023 [Order 1 Start] Name: magnes ium sulfate IVPB premix 2,000 mg Signed Summary: 2,000 mg, IntraVENous, at 25 mL/hr, Administer over 2 Hours, As needed, Per Magnesium Replacement Protocol, Starting on 01/30/23 at 0519, Mg Lab Replacement Action 1.4-1.6 2 gram IVPB x 1 doses 1.0-1.3 4 gram IVPB x 1 doses Less than 1.0 CALL PHYSICIAN and 4 gram IVPB x 1 doses Infuse at 1 gram/hr. Repeat Mag level next AM. Not for use in Patients with CrCl less than 30 mL/min. [Order 1 End] [Order 2 Start] Name: magnesium sulfate IVPB 4,000 mg Signed Summary: 4,000 mg, IntraVENous, at 25 mL/hr, Administer over 4 Hours, As needed, Per Magnesium Replacement Protocol, Starting on 01/30/23 at 0519, Mg Lab Replacement Action 1.4-1.6 2 gram IVPB x 1 doses 1.0-1.3 4 gram IVPB x 1 doses Less than 1.0 CALL PHYSICIAN and 4 gram IVPB x 1 doses Infuse at 1 gram/hr. Repeat Mag level next AM. Not for use in Patients with CrCl less than 30 mL/min. [Order 2 End] Start: 01-28-2023 End: 02-08-2023 take 650 mg by mouth every four hours as needed for pain [Order 1 Start] Name: acetaminophen (Tylenol) tablet 650 mg Signed Summary: 650 mg, Oral, Every 4 hours PRN, mild pain (1-3), Starting on Tue01/28/23 at 1540, If inadequate response within 60 minutes, proceed to next-line agent for same PRN reason or contact provider if no further options ordered. [Order 1 End] [Order 2 Start] Name: Acetaminophen (Tylenol) 650 MG/20.3ML solution 650 mg Signed Summary: 650 mg, Oral, Every 4 hours PRN, mild pain (1-3), Starting on Tue01/28/23 at 1540, Give oral liquid if patient prefers or per feeding tube if present. If inadequate response within 60 minutes, proceed to next-line agent for same PRN reason or contact provider if no further options ordered. [Order 2 End] [Order 3 Start] Name: acetaminophen (Tylenol) suppository 650 mg Signed Summary: 650 mg, Rectal, Every 4 hours PRN, mild pain (1-3), Starting on Tue01/28/23 at 1540, Give AL if unable to administer by mouth or feeding tube. If inadequate response within 60 minutes, proceed to next-line agent for same PRN reason or contact provider if no further options ordered. [Order 3 End] Start: 01-27-2023 End: 01-28-2023 1,000 mg, IntraVENous, at 10 0 mL/hr, Administer over 30 Minutes, Every 24 hours, First dose (after last modification) on Tiffanie 01/27/23 at 2100, For 5 doses, Mini-Bag Plus bag, Suspected Indication (Select all that apply): COPD Exacerbation Start: 01-27-2023 End: 01-29-2023 take 10 mL by mouth once daily 40 mg, IntraVENous, Adm inister over 2 Minutes, Every morning, First dose on Tiffanie 01/27/23 at 0900, Give if unable to take by mouth or feeding tube. Reconstitute 40 mg vial with 10 ml NS. Vial expires 2 hrs after reconstitution. Start: 01-26-2023 End: 01-27-2023 1,000 mg, IntraVENous, at 10 0 mL/hr, Administer over 30 Minutes, Every 24 hours, First dose on Tue01/26/23 at 2100, Mini-Bag Plus bag, Suspected Indication (Select all that apply): COPD Exacerbation Start: 01-26-2023 End: 02-08-2023 take 4 mg by mouth every eight hours as needed for nausea and vomiting [Order 1 Start] Name: ondansetron ODT (Zofran-ODT) disintegrating tablet 4 mg Signed Summary: 4 mg, Oral, Every 8 hours PRN, nausea, vomiting, Starting on Tue01/26/23 at 2002, 1st Line. If inadequate response within 60 minutes, proceed to next-line agent or contact provider if no further options ordered. Patient should allow tablet to dissolve on tongue. Do not remove from blister pack until just before administering. [Order 1 End] [Order 2 Start] Name: ondansetron (Zofran) injection 4 mg Signed Summary: 4 mg, IntraVENous, Every 6 hours PRN, nausea, vomiting, Starting on Tue01/26/23 at 2002, 1st Line. Give IV if patient is unable to take orally. If inadequate response within 60 minutes, proceed to next-line agent or contact provider if no further options ordered. [Order 2 End] (2 sources) Start: 02-06-2023 End: 02-06-2023 take 30 mL by mouth once 30 mL, Oral, Once, On 02/06/23 at 1000, For 1 dose (2 sources) Start: 02-02-2023 End: 02-02-2023 take 75 mL intravenously once as needed 75 mL, IntraVENous, IMG once PRN, contrast, Starting on Tue02/02/23 at 1820, For 1 dose (2 sources) Start: 02-02-2023 End: 02-02-2023 30 mL, Oral, Once, On Tue02/02/23 at 1430, For 1 dose, 1. INPATIENTS 30ML GASTROGRAFIN MIXED IN 32OZ OF WATER-DRINK HALF 2 HRS BEFORE AND THE HALF 1HR BEFORE EXAM. 2. EMERGENCY PATIENTS 30ML GASTROGRAFIN MIXED IN 32OZ OF WATER AND WAIT 1 HOUR THEN SCAN. (10 sources) Start: 01-30-2023 End: 02-04-2023 25-200 mcg/hr (2.5-20 mL/hr), IntraVENous, Continuous, Starting on 01/30/23 at 1115, If Titrate Infusion? is No: Disregard instructions below. If Titrate infusion? is Yes: Titrate in increments of 25 mcg/hr no more frequently than every 30 minutes to goal of therapy. If after titration dose change patient exhibits adverse hemodynamic response, next titration dose change may be adjusted by one-half of the previous dose change. If patient fails sedation interruption, resume infusion at 50% of previous dose., Titrate Infusion? Yes, Initial Infusion Dose: 50 mcg/hr, Goal of Therapy is: CPOT <3, Contact Provider if: Patient is receiving the maximum dose and is not achieving the goal of therapy Start: 01-29-2023 End: 01-30-2023 25-200 mcg/hr (2.5-20 mL/hr) , IntraVENous, Continuous, Starting on 01/29/23 at 2245, If Titrate Infusion? is No: Disregard instructions below. If Titrate infusion? is Yes: Titrate in increments of 25 mcg/hr no more frequently than every 30 minutes to goal of therapy. If after titration dose change patient exhibits adverse hemodynamic response, next titration dose change may be adjusted by one-half of the previous dose change. If patient fails sedation interruption, resume infusion at 50% of previous dose., Titrate Infusion? Yes, Initial Infusion Dose: 50 mcg/hr, Goal of Therapy is: RASS -1 to +1, Contact Provider if: Patient is receiving the maximum dose and is not achieving the goal of therapy Start: 01-29-2023 End: 01-29-2023 25-200 mcg/hr (2.5-20 mL/hr) , IntraVENous, Continuous, Starting on 01/29/23 at 1900, If Titrate Infusion? is No: Disregard instructions below. If Titrate infusion? is Yes: Titrate in increments of 25 mcg/hr no more frequently than every 30 minutes to goal of therapy. If after titration dose change patient exhibits adverse hemodynamic response, next titration dose change may be adjusted by one-half of the previous dose change. If patient fails sedation interruption, resume infusion at 50% of previous dose., Titrate Infusion? Yes, Initial Infusion Dose: 50 mcg/hr, Goal of Therapy is: RASS -1 to +1, Contact Provider if: Patient is receiving the maximum dose and is not achieving the goal of therapy Start: 01-29-2023 End: 01-29-2023 25-200 mcg/hr (2.5-20 mL/hr) , IntraVENous, Continuous, Starting on 01/29/23 at 1830, If Titrate Infusion? is No: Disregard instructions below. If Titrate infusion? is Yes: Titrate in increments of 25 mcg/hr no more frequently than every 30 minutes to goal of therapy. If after titration dose change patient exhibits adverse hemodynamic response, next titration dose change may be adjusted by one-half of the previous dose change. If patient fails sedation interruption, resume infusion at 50% of previous dose., Titrate Infusion? Yes, Initial Infusion Dose: 50 mcg/hr, Goal of Therapy is: RASS -1 to +1, Contact Provider if: Patient is receiving the maximum dose and is not achieving the goal of therapy Start: 01-26-2023 End: 01-28-2023 25-200 mcg/hr (2.5-20 mL/hr) , IntraVENous, Continuous, Starting on 01/26/23 at 2045, If Titrate Infusion? is No: Disregard instructions below. If Titrate infusion? is Yes: Titrate in increments of 25 mcg/hr no more frequently than every 30 minutes to goal of therapy. If after titration dose change patient exhibits adverse hemodynamic response, next titration dose change may be adjusted by one-half of the previous dose change. If patient fails sedation interruption, resume infusion at 50% of previous dose., Titrate Infusion? Yes, Initial Infusion Dose: 50 mcg/hr, Goal of Therapy is: CPOT <3, Contact Provider if: Patient is receiving the maximum dose and is not achieving the goal of therapy (2 sources) Start: 01-27-2023 End: 02-08-2023 0.5 mL, IntraMUSCular, Prior to discharge, Starting on Tiffanie 01/27/23 at 0900, For 1 dose Problems Active Problems Problem Classification Problem Date Documented Da te Episodic/Chronic Administrative/social admission (1 source) Drug therapy finding; Translations: [Other specified counseling] 08-11-2023 Episodic Anxiety disorders (20 sources) Anxiety; Translations: [Anxiety disorder, unspecified] Onset: 5 Resolved: 4 03-09-2021 Chronic Calculus of urinary tract (3 sources) Kidney stone 11-20-2013 Episodic Cardiac dysrhythmias (4 sources) Sinus tachycardia; Translations: [Tachycardia, unspecified] 02-18-2022 Episodic Chronic obstructive pulmonary disease and bronchiectasis (20 sources) Severe chronic obstructive pulmonary disease; Translations: [Chronic obstructive pulmonary disease, unspecified] Onset: 4 Resolved: 4 Chronic Deficiency and other anemia (20 sources) Iron deficiency anemia due to blood loss; Translations: [Iron deficiency anemia secondary to blood loss (chronic)] Onset: 9 Resolved: 4 05-01-2018 Chronic Deficiency and other anemia (1 source) Anemia, unspecified; Translations: [Anemia, unspecified] 11-14-2022 Episodic Deficiency and other anemia (2 sources) Iron deficiency anemia, unspecified; Translations: [Iron deficiency anemia, unspecified] Onset: 5 Episodic Deficiency and other anemia (3 sources) Iron deficiency anemia; Translations: [Iron deficiency anemia, unspecified] Onset: 5 07-31-2024 Episodic Diabetes mellitus without complication (4 sources) Hyperglycemia, unspecified; Translations: [Hyperglycemia] Onset: 5 07-31-2024 Episodic Diseases of white blood cells (7 sources) Leukocytosis; Translations: [Elevated white blood cell count, unspecified] Onset: 5 03-30-2021 Chronic Disorders of lipid metabolism (4 sources) Hyperlipidemia, unspecified; Translations: [Dyslipidemia] Onset: 5 07-31-2024 Chronic Esophageal disorders (16 sources) Gastro-esophageal reflux disease with esophagitis; Translations: [Gastroesophageal reflux disease with esophagitis] Onset: 2 Chronic Gastrointestinal hemorrhage (4 sources) Acute gastrointestinal hemorrhage; Translations: [Gastrointestinal hemorrhage, unspecified] 11-12-2022 Episodic Heart valve disorders (1 source) Heart murmur; Translations: [Cardiac murmur, unspecified] 02-18-2023 Episodic Malaise and fatigue (3 sources) Fatigue; Translations: [Chronic fatigue, unspecified] 04-21-2023 Chronic Nutritional deficiencies (20 sources) Nutritional marasmus; Translations: [Unspecified severe protein-calorie malnutrition] Onset: 2 Chronic Other aftercare (3 sources) Long-term current use of systemic steroid; Translations: [custodial (current) 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] 04-21-2023 Episodic Other bone disease and musculoskeletal deformities (3 sources) Disorder of bone; Translations: [Disorder of bone, unspecified] 04-21-2023 Episodic Other gastrointestinal disorders (1 source) Pharyngeal dysphagia; Translations: [Dysphagia, pharyngeal phase] Episodic Other injuries and conditions due to external causes (2 sources) Choking; Translations: [Unspecified foreign body in larynx causing other injury, initial encounter] 11-27-2022 Episodic Other injuries and conditions due to external causes (2 sources) Unspecified foreign body in larynx causing other injury, initial encounter; Translations: [Unspecified foreign body in larynx causing other injury, initial encounter] Onset: 3 Episodic Other injuries and conditions due to external causes (1 source) Unspecified foreign body in bronchus causing asphyxiation, initial encounter; Translations: [Unspecified foreign body in bronchus causing asphyxiation, initial encounter] Onset: 5 Episodic Other lower respiratory disease (20 sources) Dyspnea; Translations: [Shortness of breath] Onset: 4 Episodic Other lower respiratory disease (2 sources) Imaging of lung abnormal ; Translations: [Other nonspecific abnormal finding of lung field] Episodic Other lower respiratory disease (3 sources) Hypoxia 10-02-2019 Episodic Other lower respiratory disease (1 source) Multiple nodules of lung; Translations: [Other nonspecific abnormal finding of lung field] Episodic Other lower respiratory disease (6 sources) Productive cough ; Translations: [Cough productive of purulent sputum] 08-25-2021 Episodic Other lower respiratory disease (4 sources) Tachypnea; Translations: [Tachypnea, not elsewhere classified] 02-18-2022 Episodic Other lower respiratory disease (7 sources) Orthopnea; Translations: [Orthopnea] Onset: 2 01-29-2023 Episodic Other lower respiratory disease (1 source) Orthopnea; Translations: [Orthopnea] Onset: 3 Episodic Other lower respiratory disease (1 source) Shortness of breath; Translations: [Shortness of breath] Onset: 5 Episodic Other upper respiratory disease (4 sources) Acute bronchospasm; Translations: [Acute bronchospasm] 02-18-2022 Episodic Residual codes; unclassified (4 sources) Awaiting transplantation of lung; Translations: [Awaiting organ transplant status] 04-21-2023 Chronic Residual codes; unclassified (3 sources) Insomnia 10-02-2019 Episodic Residual codes; unclassified (1 source) Tobacco user; Translations: [Tobacco use] 08-06-2024 Episodic Respiratory failure; insufficiency; arrest (adult) (11 sources) Dependence on supplemental oxygen; Translations: [Chronic respiratory failure] Onset: 5 11-29-2017 Chronic Screening and history of mental health and substance abuse codes (3 sources) Ex-cigarette smoker; Translations: [Personal history of nicotine dependence] Episodic Spondylosis; intervertebral disc disorders; other back problems (1 source) Acute back pain with sciatica; Translations: [Lumbago with sciatica, left side] Episodic Substance-related disorders (20 sources) Tobacco user; Translations: [Nicotine dependence, unspecified, uncomplicated] Onset: 4 Chronic Transient cerebral ischemia (3 sources) Transient cerebral ischemia 11-29-2017 Chronic Unclassified (3 sources) Methicillin resistant Staphylococcus aureus (organism) 11-20-2013 Unclassified (20 sources) Nodule of lung; Translations: [Lung nodule < 6cm on CT] Onset: 2 06-10-2021 Unclassified (1 source) Thrombocytosis, unspecified; Translations: [Thrombocytosis, unspecified] Onset: 5 Unclassified (1 source) Acidosis, unspecified; Translations: [Acidosis, unspecified] Onset: 5 Past or Other Problems Problem Classification Problem Date Documented Da te Episodic/Chronic Abdominal hernia (20 sources) Left inguinal hernia ; Translations: [Unilateral inguinal hernia, without obstruction or gangrene, not specified as recurrent] Onset: 01-02-2014 Resolved: 08-02-2023 01-02-2014 Episodic Abdominal pain (20 sources) Left inguinal pain; Translations: [Left lower quadrant pain] Onset: 02-10-2015 Resolved: 08-02-2023 02-10-2015 Episodic Acute and unspecified renal failure (17 sources) Acute renal failure syndrome; Translations: [Acute kidney failure, unspecified] Onset: 06-14-2014 Resolved: 05-01-2018 05-01-2018 Episodic Crushing injury or internal injury (20 sources) Injury of urethra; Translations: [Unspecified injury of urethra, initial encounter] Onset: 02-10-2015 Resolved: 08-02-2023 02-10-2015 Episodic Deficiency and other anemia (20 sources) Anemia; Translations: [Anemia, unspecified] Onset: 06-25-2014 Resolved: 08-02-2023 11-12-2022 Episodic Diverticulosis and diverticulitis (20 sources) Diverticular disease; Translations: [Diverticulosis of intestine, part unspecified, without perforation or abscess without bleeding] Onset: 11-16-2013 Resolved: 08-02-2023 11-16-2013 Chronic Fluid and electrolyte disorders (20 sources) Dehydration; Translations: [Dehydration] Onset: 09-09-2014 Resolved: 05-01-2018 Episodic Gastritis and duodenitis (20 sources) Gastritis; Translations: [Other gastritis without bleeding] Onset: 12-29-2018 Resolved: 08-02-2023 12-29-2018 Episodic Genitourinary symptoms and ill-defined conditions (20 sources) Blood in urine; Translations: [Hematuria, unspecified] Onset: 07-02-2014 Resolved: 08-02-2023 08-20-2014 Episodic Malaise and fatigue (20 sources) Asthenia; Translations: [Other malaise] Onset: 02-18-2023 Episodic Noninfectious gastroenteritis (20 sources) Colitis; Translations: [Noninfective gastroenteritis and colitis, unspecified] Onset: 09-09-2014 Resolved: 08-02-2023 03-09-2021 Episodic Nonspecific chest pain (20 sources) Chest pain; Translations: [Chest pain, unspecified] Onset: 08-10-2013 Resolved: 08-02-2023 08-10-2013 Episodic Other disorders of stomach and duodenum (16 sources) Disorder of function of stomach; Translations: [Other diseases of stomach and duodenum] Onset: 07-10-2021 Episodic Other gastrointestinal disorders (20 sources) Swollen abdomen; Translations: [Abdominal distension (gaseous)] Onset: 06-14-2014 Resolved: 08-02-2023 08-02-2023 Episodic Other gastrointestinal disorders (20 sources) H/O: abdominal hernia; Translations: [Personal history of other diseases of the digestive system] Onset: 02-10-2015 Resolved: 08-02-2023 02-10-2015 Episodic Other gastrointestinal disorders (16 sources) Dysphagia; Translations: [Dysphagia, unspecified] Onset: 07-01-2021 Episodic Other lower respiratory disease (20 sources) Abscess of lung; Translations: [Abscess of lung without pneumonia] Onset: 06-13-2014 Resolved: 08-02-2023 08-02-2023 Episodic Other lower respiratory disease (10 sources) Nodule of lung; Translations: [Solitary pulmonary nodule] Onset: 05-12-2021 06-10-2021 Episodic Other nutritional; endocrine; and metabolic disorders (20 sources) Underweight; Translations: [Underweight] Onset: 01-06-2015 Resolved: 08-02-2023 01-06-2015 Episodic Other screening for suspected conditions (not mental disorders or infectious disease) (20 sources) Hypomagnesemia; Translations: [Abnormal level of blood mineral] Onset: 09-09-2014 Resolved: 08-02-2023 05-01-2018 Episodic Other skin disorders (20 sources) Sebaceous cyst of skin; Translations: [Sebaceous cyst] Onset: 02-16-2006 02-16-2006 Episodic Other upper respiratory infections (20 sources) Acute sinusitis; Translations: [Acute sinusitis, unspecified] Onset: 08-10-2013 Resolved: 08-02-2023 08-10-2013 Episodic Pancreatic disorders (not diabetes) (20 sources) Acute pancreatitis; Translations: [Acute pancreatitis without necrosis or infection, unspecified] Onset: 09-09-2014 03-09-2021 Episodic Pleurisy; pneumothorax; pulmonary collapse (20 sources) Left pneumothorax; Translations: [Pneumothorax, unspecified] Onset: 01-26-2023 01-26-2023 Episodic Pneumonia (except that caused by tuberculosis or sexually transmitted disease) (17 sources) Pneumonia due to methicillin resistant Staphylococcus aureus; Translations: [Pneumonia due to Methicillin resistant Staphylococcus aureus] Onset: 06-13-2014 Resolved: 05-01-2018 05-01-2018 Episodic Residual codes; unclassified (20 sources) Impaired exercise tolerance; Translations: [Other general symptoms and signs] Onset: 08-21-2013 Resolved: 08-02-2023 08-21-2013 Episodic Respiratory failure; insufficiency; arrest (adult) (20 sources) Respiratory failure; Translations: [Respiratory failure, unspecified, unspecified whether with hypoxia or hypercapnia] Onset: 06-14-2014 Resolved: 08-02-2023 01-26-2023 Episodic Septicemia (except in labor) (20 sources) Sepsis; Translations: [Sepsis, unspecified organism] Onset: 06-14-2014 Resolved: 05-01-2018 08-25-2021 Episodic Viral infection (15 sources) Disease caused by 2019-nCoV; Translations: [COVID-19] Onset: 04-04-2021 04-04-2021 Episodic Results Test Name Value Interpretation Reference Range Facility [facility] 07-31-2024 CNOV Office Visit (FAMPWS ) LUIS STEELE II ([id number]) 1970 M Date Time Provider Department 07/31/24 2:20 PM ANTWAN BUCHANAN [facility] During your visit today, we recorded the following information about you: Temperature Pulse Respiration Blood pressure 98 degrees 64/minute 24/minute 120/84 Weight Height 76.2 kg 1.778 m Antwan Buchanan DO 08/15/2024 10:17 PM Signed CC: Luis Steele II is a 53 year old male who presents to the office for follow up HPI: COPD, severe, need for b/l lung transplant surgery. Was evaluated by the Psychologist and doesn't feel that the interaction went well. He was denied that he is a good candidate for this surgery. He is considering getting a 2nd opinion by another institute/hospital system. He states that he is not smoking but is using tobacco dip at times. He does have support from his family and neighbors if he would qualify for lung transplant surgery He is frustrated because his activity is very limited due to his chronic pulmonary sympotoms He has lost a few lbs in the last year- states appetite is still overall normal He is using inhalers as prescribed. PAST MEDICAL HISTORY Diagnosis Date Blood type B+ Calculus of kidney chronic--had had stent placed COPD, severe (HCC) 12/2013 Diverticulosis Gastric ulcer 02/03/2018 per endoscopy doron [facility] Hyperlipemia 08/2013 Low HDL (under 40) 08/2013 Lung nodule < 6cm on CT 05/[address] 05/2022 MRSA pneumonia (HCC) 2014 hospitalized, intubated, pressors Pancreatitis (HCC) Spontaneous pneumothorax TIA (transient ischemic attack) 1994 Pt. reports Tobacco abuse PAST SURGICAL HISTORY Procedure Laterality Date CENTRAL LINE 06/14/2014 COLONOSCOPY FLX DX W/COLLJ SPEC WHEN PFRMD 2012 EGD 02/02/2018 Estef[facility] [place]. Hp-, mild chronic gastritis PAST SURGICAL HISTORY OF kidney stone stent PICC LINE INSERT/CONSULT 07/03/2014 RPR 1ST INGUN HRNA AGE 5 YRS/> REDUCIBLE 04/17/14 left direct TONSILLECTOMY PRIMARY/SECONDARY Social History: Social History Tobacco Use Smoking status: Former Current packs/day: 0.00 Average packs/day: 2.0 packs/day for 30.0 years (60.0 ttl pk-yrs) Types: Cigarettes Start date: 08/1991 Quit date: 08/2021 Years since quittin.0 Smokeless tobacco: Current Types: Snuff Tobacco comments: 2 ppd in past Substance Use Topics Alcohol use: Yes Comment: states rarely for alcohol Drug use: No FAMILY HISTORY Problem Relation Age of Onset Allergies Mother Heart Mother NH Stroke Mother Liver Cancer Mother Lung Cancer Mother Cancer Father Prostate Cancer Father Stroke Father Heart Father Allergies Sister Cervical Cancer Sister Allergies Brother Current Outpatient prescriptions: fluticasone-salmeterol HFA (ADVAIR HFA) 230-21 mcg/actuation inhaler INHALE 2 PUFFS TWICE DAILY DIRECTED sertraline (ZOLOFT) 100 mg tablet Take 1 tablet by mouth once daily. tiotropium bromide (SPIRIVA RESPIMAT) 2.5 mcg/actuation inhaler Inhale 2 Puffs as instructed once daily. tiotropium bromide (SPIRIVA RESPIMAT) 2.5 mcg/actuation inhaler Inhale 2 Puffs as instructed once daily. pantoprazole DR (PROTONIX) 40 mg tablet Take 1 tablet by mouth twice daily. ipratropium-albuterol (DUONEB) 0.5 mg-3 mg(2.5 mg base)/3 mL nebu Inhale 3 mL as instructed every 4 hours as needed for wheezing/shortness of breath. traZODone (DESYREL) 50 mg tablet Take 1-3 tablets by mouth daily at bedtime. (Patient taking differently: Take 50 mg by mouth at bedtime as needed (insomnia).) Allergies: ALLERGIES Allergen Reactions Codeine Other: See Comments Pt can not remember effects happened when was baby Tomatoes Unknown Raw only; unsure of reaction. Okay with cooked tomatoes Ultram [Tramadol Hc* Swelling Facial swelling ROS: See HPI PE: 07/31/24 1431 BP: 120/84 Pulse: 64 Resp: 24 Temp: 36.7 ?C (98 ?F) TempSrc: Left Tympanic Weight: 76.2 kg (168 lb) Height: 177.8 cm (5' 10) Gen: AANDO,thin, oxygen by nasal cannula in place, Pleasant, cooperative HEENT: NT/AC, PERRLA, EOMs intact b/l, nares clear and patent b/l, pharynx without erythema, exudate or lesions poor dentition. MMM, Uvula midline. EACs without erythema or debris. TMs pearly harris with intact landmarks b/l. Neck: supple, No cervical LAD, no thyromegaly, no carotid bruits CV: RRR, normal S1 and S2, no murmurs, no gallops, no rubs, Pulses 2+ and symmetric in UE and LE b/l Lungs: oxygen nasal cannula in place, no conversational dyspnea, diffusely diminished Abd: soft, NT, ND, +BS, no hepatosplenomegaly MS: FROM all 4 extremities Neuro: CN II-XII intact b/l, strength 5/5 b/l UE and LE, DTRs 2/4 UE and LE, sensation intact. Skin: warm, dry, intact, No rashes or lesions on exposed skin. ASSESSMENT/PLAN: 1. SOB (shortness of breath) - ICD9: 786.05, ICD10: R06.02 (primary halle (more content not included)... [facility] Tele[facility] (FAMPWS) CALL,LUIS Christie II ([id number]) 1970 M Date Time Provider Department 07/31[facility] During your visit today, we recorded the following information about you: Dayami El RN 07/31/2024 4:00 PM Signed Arianna with [facility] Lung Trans[facility] [place] called in and states Pt was referred to them for a lung transplant for COPD and Pulmonary disease. She reports Pt was declined on 08/10/24 due to psychosocial issues, she states the patient is an undue risk and they will not be able to move forward with the transplant. She states Pulmonary already know that patient is not a candidate for a transplant any longer. She reports Pt is non-compliant, still smoking and vaping, not showing up to appointments, and walking out of testing. She states there are notes in the computer if the provider needs to read about the patient before calling them back. She received permission from the Lead Nurse Rebeka Meehan to give the provider her mobile # [phone] to call back. ADELIA Carr Amanda, RN 08/01/2024 8:35 AM Signed Got a hold of providers nurse [place] and she said provider had seen message. Let her know they would like a call back as soon as possible. She said she would let provider know. Dayami El RN Allergies As of Date: 07/31/2024 Noted Allergy Reaction CODEINE 12/28/2005 14 - Other: See Comments Comments: Pt can not remember effects happened when was baby TOMATOES 08/10/2023 16 - Unknown Comments: Raw only; unsure of reaction. Okay with cooked tomatoes ULTRAM (TRAMADOL HCL) 12/20/2007 7 - Swelling Comments: Facial swelling Date Reviewed: 04/06/2024 Reviewed by: Petush, Nayana, RPFT - Fully Assessed Reason for Visit: Denial for Lung Transplant [Other] Prescriptions as of 08/08/2024 - fluticasone-salmeterol HFA (ADVAIR HFA) 230-21 mcg/actuation inhaler INHALE 2 PUFFS TWICE DAILY DIRECTED - sertraline (ZOLOFT) 100 mg tablet Take 1 tablet by mouth once daily. - tiotropium bromide (SPIRIVA RESPIMAT) 2.5 mcg/actuation inhaler Inhale 2 Puffs as instructed once daily. - tiotropium bromide (SPIRIVA RESPIMAT) 2.5 mcg/actuation inhaler Inhale 2 Puffs as instructed once daily. - pantoprazole DR (PROTONIX) 40 mg tablet Take 1 tablet by mouth twice daily. - ipratropium-albuterol (DUONEB) 0.5 mg-3 mg(2.5 mg base)/3 mL nebu Inhale 3 mL as instructed every 4 hours as needed for wheezing/shortness of breath. - traZODone (DESYREL) 50 mg tablet Take 1-3 tablets by mouth daily at bedtime. Meds Comments as of 07/03/2014: v Problem List As Of Date 07/31/2024 Noted Resolved SEBACEOUS CYST [L72.3] 02/16/2006 Shortness of breath [R06.02] 08/10/2013 Chest pain [R07.9] 08/10/2013 08/02/2023 Acute sinusitis [J01.90] 08/10/2013 08/02/2023 COPD (chronic obstructive pulmonary disease) (H*08/10/2013 Tobacco use disorder [F17.200] 08/10/2013 Decreased exercise tolerance [R68.89] 08/21/2013 08/02/2023 COPD, severe (HCC) [J44.9] 08/21/2013 Diverticulosis [K57.90] 11/16/2013 08/02/2023 Left inguinal hernia [K40.90] 01/02/2014 08/02/2023 MRSA pneumonia (HCC) [J15.212] 06/13/2014 05/01/2018 Lung abscess (HCC) [J85.2] 06/13/2014 08/02/2023 Emphysema of lung (HCC) [J43.9] 06/13/2014 08/02/2023 Respiratory failure (HCC) [J96.90] 06/14/2014 08/02/2023 ARDS (adult respiratory distress syndrome) (HCC*06/14/2014 08/02/2023 Septic shock (HCC) [A41.9, R65.21] 06/14/2014 05/01/2018 NANCY (acute kidney injury) (HCC) [N17.9] 06/14/2014 05/01/2018 Abdominal distention [R14.0] 06/14/2014 08/02/2023 Anemia [D64.9] 06/25/2014 08/02/2023 Hematuria [R31.9] 07/02/2014 08/02/2023 Urinary retention [R33.9] 08/20/2014 08/02/2023 Acute pancreatitis [K85.90] 09/09/2014 Colitis [K52.9] 09/09/2014 08/02/2023 Anxiety [F41.9] 09/09/2014 08/02/2023 Elevated troponin [R79.89] 09/09/2014 09/10/2014 Hypokalemia [E87.6] 09/09/2014 05/01/2018 Underweight [R63.6] 01/06/2015 08/02/2023 Urethral trauma [S37.30XA] 02/10/2015 08/02/2023 Left groin pain [R10.32] 02/10/2015 08/02/2023 History of left inguinal hernia [Z87.19] 02/10/2015 08/02/2023 Low magnesium level [R79.0] 05/01/2018 08/02/2023 Iron deficiency anemia due to chronic blood los*05/01/2018 08/02/2023 Other gastritis without bleeding [K29.60] 12/29/2018 08/02/2023 EDI (generalized anxiety disorder) [F41.1] 06/01/2021 08/02/2023 Lung nodule < 6cm on CT [TJL9086] 05/2021 Pneumothorax [J93.9] 02/18/2023 Stage 4 very severe COPD by GOLD classification* 023 Fatigue [R53.83] 02/18/2023 Preoperative respiratory examination [Z01.811] 08/02/2023 Encounter Status:Closed by DAYAMI EL on 08/08/24 [facility] CNP[facility] Telephone (PULTMN) CALL,LUIS Christie II ([id number]) 1970 M Date Time Provider Department 07/31/24 ARIANNA PARKER ([facility]) PULTMN During your visit today, we recorded the following information about you: Arianna Parker 07/31/2024 4:26 PM Signed Spoke to Triage Nurse Dayami at Dr.Jordan Buchanan office regarding Internal Referral for patient.Per Lead Nurse Rebeka. Patient is currently not a candidate for the Lung Transplant Program. Dayami verbalized understanding call back number given for and her nurse to call. Allergies As of Date: 07/31/2024 Noted Allergy Reaction CODEINE 12/28/2005 14 - Other: See Comments Comments: Pt can not remember effects happened when was baby TOMATOES 08/10/2023 16 - Unknown Comments: Raw only; unsure of reaction. Okay with cooked tomatoes ULTRAM (TRAMADOL HCL) 12/20/2007 7 - Swelling Comments: Facial swelling Date Reviewed: 04/06/2024 Reviewed by: Nayana Ricks RPFT - Fully Assessed Reason for Visit: Referral Declined [Other] Prescriptions as of 07/31/2024 - fluticasone-salmeterol HFA (ADVAIR HFA) 230-21 mcg/actuation inhaler INHALE 2 PUFFS TWICE DAILY DIRECTED - sertraline (ZOLOFT) 100 mg tablet Take 1 tablet by mouth once daily. - tiotropium bromide (SPIRIVA RESPIMAT) 2.5 mcg/actuation inhaler Inhale 2 Puffs as instructed once daily. - tiotropium bromide (SPIRIVA RESPIMAT) 2.5 mcg/actuation inhaler Inhale 2 Puffs as instructed once daily. - pantoprazole DR (PROTONIX) 40 mg tablet Take 1 tablet by mouth twice daily. - ipratropium-albuterol (DUONEB) 0.5 mg-3 mg(2.5 mg base)/3 mL nebu Inhale 3 mL as instructed every 4 hours as needed for wheezing/shortness of breath. - traZODone (DESYREL) 50 mg tablet Take 1-3 tablets by mouth daily at bedtime. Meds Comments as of 07/03/2014: v Problem List As Of Date 07/31/2024 Noted Resolved SEBACEOUS CYST [L72.3] 02/16/2006 Shortness of breath [R06.02] 08/10/2013 Chest pain [R07.9] 08/10/2013 08/02/2023 Acute sinusitis [J01.90] 08/10/2013 08/02/2023 COPD (chronic obstructive pulmonary disease) (H*08/10/2013 Tobacco use disorder [F17.200] 08/10/2013 Decreased exercise tolerance [R68.89] 08/21/2013 08/02/2023 COPD, severe (HCC) [J44.9] 08/21/2013 Diverticulosis [K57.90] 11/16/2013 08/02/2023 Left inguinal hernia [K40.90] 01/02/2014 08/02/2023 MRSA pneumonia (HCC) [J15.212] 06/13/2014 05/01/2018 Lung abscess (HCC) [J85.2] 06/13/2014 08/02/2023 Emphysema of lung (HCC) [J43.9] 06/13/2014 08/02/2023 Respiratory failure (HCC) [J96.90] 06/14/2014 08/02/2023 ARDS (adult respiratory distress syndrome) (HCC*06/14/2014 08/02/2023 Septic shock (HCC) [A41.9, R65.21] 06/14/2014 05/01/2018 NANCY (acute kidney injury) (HCC) [N17.9] 06/14/2014 05/01/2018 Abdominal distention [R14.0] 06/14/2014 08/02/2023 Anemia [D64.9] 06/25/2014 08/02/2023 Hematuria [R31.9] 07/02/2014 08/02/2023 Urinary retention [R33.9] 08/20/2014 08/02/2023 Acute pancreatitis [K85.90] 09/09/2014 Colitis [K52.9] 09/09/2014 08/02/2023 Anxiety [F41.9] 09/09/2014 08/02/2023 Elevated troponin [R79.89] 09/09/2014 09/10/2014 Hypokalemia [E87.6] 09/09/2014 05/01/2018 Underweight [R63.6] 01/06/2015 08/02/2023 Urethral trauma [S37.30XA] 02/10/2015 08/02/2023 Left groin pain [R10.32] 02/10/2015 08/02/2023 History of left inguinal hernia [Z87.19] 02/10/2015 08/02/2023 Low magnesium level [R79.0] 05/01/2018 08/02/2023 Iron deficiency anemia due to chronic blood los*05/01/2018 08/02/2023 Other gastritis without bleeding [K29.60] 12/29/2018 08/02/2023 EDI (generalized anxiety disorder) [F41.1] 06/01/2021 08/02/2023 Lung nodule < 6cm on CT [EUS7080] 05/2021 Pneumothorax [J93.9] 02/18/2023 Stage 4 very severe COPD by GOLD classification* 023 Fatigue [R53.83] 02/18/2023 Preoperative respiratory examination [Z01.811] 08/02/2023 Encounter Status:Closed by ARIANNA PARKER on 07/31/24 Normal [facility] OXIMETRY WITH AMBULATIONon 0 04-06-2024 JayashreeconradKofiJOYA sena T 04/06/2024 2:28 PM RESPIRATORY THERAPY OXIMETRY WITH AMBULATION Oximetry with Ambulation Test for This Encounter O2 Device O2 Adapter NC O2 Flow SpO2% HR Activity Ft Walked (ft) Time (min) Avg Speed (MPH) R/A 86 109 Resting NC 2 93 106 Resting NC 2 92 125 Walking, usual pace 250 3 0.95 General Information Pulse Oximetry Site Total Time Spent Walking Assistance/O2 Supply Carrier Forehead 30 Wheeled Walker NAME: Nayana Ricks RPPRISCA PATIENT NAME: Luis Steele II DATE: April 06, 2024 TIME: 2:28 PM Comment: [facility] Culture, Blood (WB)on 2024 CUB Blood cultures x2, from two different sites ANAEROBIC BOTTLE POSITIVE. GRAM STAIN= GRAM POSITIVE BACILLI Culture, Blood (WB) RESULTS CALLED TO PCP, DR. ANTWAN BUCHANAN 03/18/24 0813 Deja Ritter. REPORT READ BACK BY . Culture, Blood (WB) [facility] Cutibacterium acnes Amount Growth Growth Cutibacterium acnes: REACTION Moxifloxacin Islt MARISOL <=2 Penicillin Islt MARISOL 0.5 S Minocycline Islt MARISOL 4 S Normal [facility] Comment on above: Performed By: #### L 503.6620, L500.2500, L501.5200, L509.7000 #### [facility] [address] [place], [address] Culture, Blood (WB)on 2024 CUB Blood cultures x2, from two different sites AEROBIC BOTTLE GRAM STAIN= GRAM POSITIVE RODS Culture, Blood (WB) RESULTS CALLED TO TERRELL FREY 03/25/24 0735 Deja Ritter. REPORT READ BACK BY . REFER TO [id number]. PREVIOUS CUTIBACTERIUM ACNES SENT TO /BANGS FOR SENS 03/22/24 JS Gram positive ashia Amount Growth Growth Normal [facility] Comment on above: Performed By: #### L 503.6620, L500.2500, L501.5200, L509.7000 #### [facility] [address] [place], [address] Basic Metabolic Profile (BMP )on 03-23-2024 BUN Normal 7-18 [facility] Comment on above: Result Comment: Canc elled via OM: Order cancelled - Patient discharged Performed By: #### L 100.0100, L500.2500 #### [facility] [address] [place], [address] BUN/CRE Normal 10-20 [facility] Comment on above: Result Comment: Canc elled via OM: Order cancelled - Patient discharged Performed By: #### L 100.0100, L500.2500 #### [facility] [address] [place], [address] CA,Total Normal 8.5-10.1 [facility] Comment on above: Result Comment: Canc elled via OM: Order cancelled - Patient discharged Performed By: #### L 100.0100, L500.2500 #### [facility] [address] [place], [address] CL Normal 98-107 [facility] Comment on above: Result Comment: Canc elled via OM: Order cancelled - Patient discharged Performed By: #### L 100.0100, L500.2500 #### [facility] [address] [place], [address] CO2 Normal 21.0-32.0 [facility] Comment on above: Result Comment: Canc elled via OM: Order cancelled - Patient discharged Performed By: #### L 100.0100, L500.2500 #### [facility] [address] [place], [address] CREAT,SERUM Normal 0.70-1.30 [facility] Comment on above: Result Comment: Canc elled via OM: Order cancelled - Patient discharged Performed By: #### L 100.0100, L500.2500 #### [facility] [address] [place], [address] EST GFR Normal >60 [facility] Comment on above: Result Comment: Canc elled via OM: Order cancelled - Patient discharged Performed By: #### L 100.0100, L500.2500 #### [facility] [address] [place], [address] EST GFR - AA Normal >60 [facility] Comment on above: Result Comment: Canc elled via OM: Order cancelled - Patient discharged Performed By: #### L 100.0100, L500.2500 #### [facility] [address] [place], [address] GAP Normal 5-15 [facility] Comment on above: Result Comment: Canc elled via OM: Order cancelled - Patient discharged Performed By: #### L 100.0100, L500.2500 #### [facility] [address] [place], [address] GLU Normal 74-106 [facility] Comment on above: Result Comment: Canc elled via OM: Order cancelled - Patient discharged Performed By: #### L 100.0100, L500.2500 #### [facility] [address] [place], [address] Potassium Normal 3.5-5.1 [facility] Comment on above: Result Comment: Canc elled via OM: Order cancelled - Patient discharged Performed By: #### L 100.0100, L500.2500 #### [facility] [address] [place], [address] Basic Metabolic Profile (BMP) Normal 136-145 [facility] Comment on above: Result Comment: Canc elled via OM: Order cancelled - Patient discharged Performed By: #### L 100.0100, L500.2500 #### [facility] [address] [place], [address] CBC W/Diff, Automatedon - 0-2024 Absolute Neut Normal 2.0-7.7 [facility] Comment on above: Result Comment: Canc elled via OM: Order cancelled - Patient discharged Performed By: #### L 100.0100, L500.2500 #### [facility] [address] [place], [address] HCT Normal 40-54 [facility] Comment on above: Result Comment: Canc elled via OM: Order cancelled - Patient discharged Performed By: #### L 100.0100, L500.2500 #### [facility] [address] [place], [address] HGB Normal 13.0-16.5 [facility] Comment on above: Result Comment: Canc elled via OM: Order cancelled - Patient discharged Performed By: #### L 100.0100, L500.2500 #### [facility] [address] [place], [address] MCH Normal 27.0-32.0 [facility] Comment on above: Result Comment: Canc elled via OM: Order cancelled - Patient discharged Performed By: #### L 100.0100, L500.2500 #### [facility] [address] [place], [address] MCHC Normal 32-36 [facility] Comment on above: Result Comment: Canc elled via OM: Order cancelled - Patient discharged Performed By: #### L 100.0100, L500.2500 #### [facility] [address] [place], [address] MCV Normal 80-94 [facility] Comment on above: Result Comment: Canc elled via OM: Order cancelled - Patient discharged Performed By: #### L 100.0100, L500.2500 #### [facility] [address] [place], [address] NEUT% Normal 47-70 [facility] Comment on above: Result Comment: Canc elled via OM: Order cancelled - Patient discharged Performed By: #### L 100.0100, L500.2500 #### [facility] [address] [place], [address] PLT Normal 150-450 [facility] Comment on above: Result Comment: Canc elled via OM: Order cancelled - Patient discharged Performed By: #### L 100.0100, L500.2500 #### [facility] [address] [place], [address] RBC Normal 4.6-6.2 [facility] Comment on above: Result Comment: Canc elled via OM: Order cancelled - Patient discharged Performed By: #### L 100.0100, L500.2500 #### [facility] [address] [place], [address] RDW CV Normal 11.6-14.6 [facility] Comment on above: Result Comment: Canc elled via OM: Order cancelled - Patient discharged Performed By: #### L 100.0100, L500.2500 #### [facility] [address] [place], [address] RDW SD Normal 35.1-43.9 [facility] Comment on above: Result Comment: Canc elled via OM: Order cancelled - Patient discharged Performed By: #### L 100.0100, L500.2500 #### [facility] [address] [place], [address] WBC Normal 4.4-11.0 [facility] Comment on above: Result Comment: Canc elled via OM: Order cancelled - Patient discharged Performed By: #### L 100.0100, L500.2500 #### [facility] [address] [place], [address] BNP,B-Type NATRIURETIC PEPTI Becky 03-22-2024 Natriuretic peptide B (Bld) [Mass/Vol] 4.5 pg/mL Normal 0-100 [facility] Comment on above: Performed By: #### L 503.6620, L500.2500, L501.5200, L509.7000 #### [facility] [address] [place], [address] Basic Metabolic Profile (BMP )on 03-22-2024 BUN Normal 7-18 [facility] Comment on above: Result Comment: Canc elled via OM: Order cancelled - Patient discharged Performed By: #### L 500.2500, L100.0100 #### [facility] [address] [place], [address] BUN/CRE Normal 10-20 [facility] Comment on above: Result Comment: Canc elled via OM: Order cancelled - Patient discharged Performed By: #### L 500.2500, L100.0100 #### [facility] [address] [place], [address] CA,Total Normal 8.5-10.1 [facility] Comment on above: Result Comment: Canc elled via OM: Order cancelled - Patient discharged Performed By: #### L 500.2500, L100.0100 #### [facility] [address] [place], [address] CL Normal 98-107 [facility] Comment on above: Result Comment: Canc elled via OM: Order cancelled - Patient discharged Performed By: #### L 500.2500, L100.0100 #### [facility] [address] [place], [address] CO2 Normal 21.0-32.0 [facility] Comment on above: Result Comment: Canc elled via OM: Order cancelled - Patient discharged Performed By: #### L 500.2500, L100.0100 #### [facility] [address] [place], [address] CREAT,SERUM Normal 0.70-1.30 [facility] Comment on above: Result Comment: Canc elled via OM: Order cancelled - Patient discharged Performed By: #### L 500.2500, L100.0100 #### [facility] [address] [place], [address] EST GFR Normal >60 [facility] Comment on above: Result Comment: Canc elled via OM: Order cancelled - Patient discharged Performed By: #### L 500.2500, L100.0100 #### [facility] [address] [place], [address] EST GFR - AA Normal >60 [facility] Comment on above: Result Comment: Canc elled via OM: Order cancelled - Patient discharged Performed By: #### L 500.2500, L100.0100 #### [facility] [address] [place], [address] GAP Normal 5-15 [facility] Comment on above: Result Comment: Canc elled via OM: Order cancelled - Patient discharged Performed By: #### L 500.2500, L100.0100 #### [facility] [address] [place], [address] GLU Normal 74-106 [facility] Comment on above: Result Comment: Canc elled via OM: Order cancelled - Patient discharged Performed By: #### L 500.2500, L100.0100 #### [facility] [address] [place], [address] Potassium Normal 3.5-5.1 [facility] Comment on above: Result Comment: Canc elled via OM: Order cancelled - Patient discharged Performed By: #### L 500.2500, L100.0100 #### [facility] [address] [place], [address] Basic Metabolic Profile (BMP) Normal 136-145 [facility] Comment on above: Result Comment: Canc elled via OM: Order cancelled - Patient discharged Performed By: #### L 500.2500, L100.0100 #### [facility] [address] [place], [address] BUN/CRE 19.4 RATIO Normal 10-20 [facility] Comment on above: Performed By: #### L 503.6620, L500.2500, L501.5200, L509.7000 #### [facility] [address] [place], [address] CA,Total 8.8 mg/dL Normal 8.5-10.1 [facility] Comment on above: Performed By: #### L 503.6620, L500.2500, L501.5200, L509.7000 #### [facility] [address] [place], [address] Chloride [Moles/Vol] 105 mmol/L Normal 98-107 [facility] Comment on above: Performed By: #### L 503.6620, L500.2500, L501.5200, L509.7000 #### [facility] [address] [place], [address] CO2 [Moles/Vol] 24.0 mmol/L Normal 21.0-32.0 [facility] Comment on above: Performed By: #### L 503.6620, L500.2500, L501.5200, L509.7000 #### [facility] [address] [place], [address] Creatinine [Mass/Vol] 0.98 mg/dL Normal 0.70-1.30 [facility] Comment on above: Result Comment: The validity of the calculated GFR GFRAA in patients over 70 years has not been determined. Clinical correlation is essential. Performed By: #### L 503.6620, L500.2500, L501.5200, L509.7000 #### [facility] [address] [place], [address] ECRCL 88.54 ml/min Normal [facility] Comment on above: Performed By: #### L 503.6620, L500.2500, L501.5200, L509.7000 #### [facility] [address] [place], [address] EST GFR - AA 103 mL/min Normal >60 [facility] Comment on above: Result Comment: Afri can Citizen Of [place] GFR Calc Performed By: #### L 503.6620, L500.2500, L501.5200, L509.7000 #### [facility] [address] [place], [address] GAP 6 Normal 5-15 [facility] Comment on above: Performed By: #### L 503.6620, L500.2500, L501.5200, L509.7000 #### [facility] [address] [place], [address] GFR/1.73 sq M.predicted among non-blacks MDRD (S/P/Bld) [Vol rate/Area] 85 mL/min/{1.73_m2} Normal >60 [facility] Comment on above: Result Comment: Non- GFR Calc Performed By: #### L 503.6620, L500.2500, L501.5200, L509.7000 #### [facility] [address] [place], [address] Glucose [Mass/Vol] 149 mg/dL High 74-106 [facility] Comment on above: Result Comment: Fast ing Glucose result greater than or equal to 126 mg/dL suggests DIABETES MELLITUS per A.D.A. criteria. Performed By: #### L 503.6620, L500.2500, L501.5200, L509.7000 #### [facility] [address] [place], [address] Potassium [Moles/Vol] 3.9 mmol/L Normal 3.5-5.1 [facility] Comment on above: Performed By: #### L 503.6620, L500.2500, L501.5200, L509.7000 #### [facility] [address] [place], [address] Sodium [Moles/Vol] 134 mmol/L Low 136-145 [facility] Comment on above: Performed By: #### L 503.6620, L500.2500, L501.5200, L509.7000 #### [facility] [address] [place], [address] Urea nitrogen [Mass/Vol] 19 mg/dL High 7-18 [facility] Comment on above: Performed By: #### L 503.6620, L500.2500, L501.5200, L509.7000 #### [facility] [address] [place], [address] CBC W/Diff, Automatedon -0 PATH REV Reviewed Normal [facility] Comment on above: Result Comment: Neut rophilic leukocytosis. Microcytic anemia. Thrombocytosis. Clinical correlation necessary. Taran Mcdermott M.D. 03/22/24 AMENDED REPORT 03/22/24 1004 PATH REV previously reported as: July Performed By: #### L 503.6005, L100.0100 #### [facility] [address] [place], [address] Absolute Neut Normal 2.0-7.7 [facility] Comment on above: Result Comment: Canc elled via OM: Order cancelled - Patient discharged Performed By: #### L 500.2500, L100.0100 #### [facility] [address] [place], [address] HCT Normal 40-54 [facility] Comment on above: Result Comment: Canc elled via OM: Order cancelled - Patient discharged Performed By: #### L 500.2500, L100.0100 #### [facility] [address] [place], [address] HGB Normal 13.0-16.5 [facility] Comment on above: Result Comment: Canc elled via OM: Order cancelled - Patient discharged Performed By: #### L 500.2500, L100.0100 #### [facility] [address] [place], [address] MCH Normal 27.0-32.0 [facility] Comment on above: Result Comment: Canc elled via OM: Order cancelled - Patient discharged Performed By: #### L 500.2500, L100.0100 #### [facility] [address] [place], [address] MCHC Normal 32-36 [facility] Comment on above: Result Comment: Canc elled via OM: Order cancelled - Patient discharged Performed By: #### L 500.2500, L100.0100 #### [facility] [address] [place], [address] MCV Normal 80-94 [facility] Comment on above: Result Comment: Canc elled via OM: Order cancelled - Patient discharged Performed By: #### L 500.2500, L100.0100 #### [facility] [address] [place], [address] NEUT% Normal 47-70 [facility] Comment on above: Result Comment: Canc elled via OM: Order cancelled - Patient discharged Performed By: #### L 500.2500, L100.0100 #### [facility] [address] [place], [address] PLT Normal 150-450 [facility] Comment on above: Result Comment: Canc elled via OM: Order cancelled - Patient discharged Performed By: #### L 500.2500, L100.0100 #### [facility] [address] [place], [address] RBC Normal 4.6-6.2 [facility] Comment on above: Result Comment: Canc elled via OM: Order cancelled - Patient discharged Performed By: #### L 500.2500, L100.0100 #### [facility] [address] [place], [address] RDW CV Normal 11.6-14.6 [facility] Comment on above: Result Comment: Canc elled via OM: Order cancelled - Patient discharged Performed By: #### L 500.2500, L100.0100 #### [facility] [address] [place], [address] RDW SD Normal 35.1-43.9 [facility] Comment on above: Result Comment: Canc elled via OM: Order cancelled - Patient discharged Performed By: #### L 500.2500, L100.0100 #### [facility] [address] [place], [address] WBC Normal 4.4-11.0 [facility] Comment on above: Result Comment: Canc elled via OM: Order cancelled - Patient discharged Performed By: #### L 500.2500, L100.0100 #### [facility] [address] [place], [address] CTA Chest W/WO Contraston CTA Chest W/WO Contrast [facility] [address] [place] [address] CTA Chest W/WO Contrast MR#: [id number] Acct: [id number] Name: LUIS STEELE II Rep #: [id number] : 1970 M 53 From: Doyle Jaramillo MD PCP: Dr. Antwan Buchanan, Status: REG ER Study: CTA Chest W/WO Contrast Date of Exam: 03/22/24 Exam# [id number] Ordering Dr: Anselmo Bustos DO [id number] INDICATION: hypoxia EXAMINATION: - CTA Chest WO/W Contrast Injection A radiation dose optimization technique was used for this scan. RADIATION DOSAGE (If Supplied By Facility): CTDIvol/DLP = ( 11.47 ) / ( 369.12 ) mGy/mGycm COMPARISON: Chest CT 03/14/2024 and 06/05/2014. FINDINGS: Contrast enhanced serial CTA axial images through the chest with coronal and sagittal reformatted series. Additional dedicated coronal and sagittal MIP reformatted series provided as well. IV Contrast dosage and agent: 100 cc Isovue-370 IV. MEDIASTINUM: No acute thoracic aortic abnormality. No pulmonary artery filling defects. Again noted mediastinal adenopathy, stable from only 8 days prior (new from 2014). LUNG PARENCHYMA: Severe diffuse emphysematous lung changes with bleb formation, including giant left posterior bleb. Diffuse bronchiectasis with mucus filling these dilated airways, right lower lobe predominant. PLEURA: No pleural effusion. No pneumothorax. BONES: Osseous structures are unremarkable for age. UPPER ABDOMEN: Fatty liver. CT/CTA Chest W/WO Contrast IMPRESSION: Stable chest with diffuse bronchiectasis including mucus filling these dilated airways, right lower lobe predominant. Likely associated mediastinal adenopathy. Recommend follow-up to document stability as neoplastic process is not excluded. Severe diffuse emphysematous lung changes with bleb formation, including giant left posterior bleb. No pulmonary embolus or acute aortic abnormality. Fatty liver. Electronically Signed: Doyle Jaramillo MD at 2:41 EST , CC: Dr. 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 Antwan Buchanan DO Status:DEP ER Location: ED HPI History of Present Illness Chief Complaint: Shortness of Breath Informant: patient Narrative Narrative: Patient is 53-year-old male with past medical history of COPD and iron deficiency anemia who was recently admitted to the hospital secondary to respiratory distress needing BiPAP secondary to bronchiectasis and mucous plugging. He was kept in the hospital for multiple days and discharged home. He states he was prescribed prednisone and an antibiotic but did not pick these up. He states overall he has been feeling at his baseline but then today he began with subjective fevers and chills and this evening worsening shortness of breath. With concern he will progress to need for admission or BiPAP he presents to the hospital for evaluation [facility] Medical History Chronic hypoxic respiratory failure History and physical examination, immigration Exposure to COVID-19 virus Alcohol abuse Ulcer Smoker TIA (transient ischemic attack) History of bacterial pneumonia Depression Anxiety COPD (chronic obstructive pulmonary disease) History of tobacco use Home Medications ???Medication ???Instructions ???Recorded ???Last Taken ???Type sertraline 100 mg tablet 100 mg PO DAILY mood 11/19/14 10/19/22 10:00 History pantoprazole 40 mg tablet,delayed 40 mg PO BID stomache 03/20/21 10/19/22 10:00 History release trazodone 50 mg tablet 100 - 150 mg PO PRN sleep 03/20/21 03/18/21 History ipratropium 0.5 mg-albuterol 3 mg 3 ml inhalation Q4H PRN breathing 08/15/21 10/19/22 10:00 History (2.5 mg base)/3 mL nebulization soln albuterol sulfate 90 mcg/actuation 2 puff inhalation Q4H PRN PRN 02/10/22 10/19/22 10:00 Rx aerosol inhaler (Ventolin HFA) Wheezing ##1 ferrous sulfate 325 mg (65 mg 325 mg PO DAILY supplement #90 tabs 11/14/22 Unknown Rx iron) tablet (Iron (ferrous sulfate)) fluticasone propionate 230 2 puff inhalation BID breathing 03/13/24 Unknown History mcg-salmeterol 21 mcg/actuation HFA inhaler (Advair HFA) tiotropium bromide 2.5 2 puff inhalation DAILY breathing 03/13/24 Unknown History mcg/actuation mist for inhalation (Spiriva Respimat) levofloxacin 750 mg tablet 750 mg PO DAILY #4 tabs 03/16/24 Unknown Rx prednisone 20 mg tablet 40 mg (2 x 20 mg) PO DAILY #10 tabs 03/16/24 Unknown Rx ipratropium 0.5 mg-albuterol 3 mg 3 ml inhalation Q4H PRN shortness 03/22/24 Unknown Rx (2.5 mg base)/3 mL nebulization of breath/wheezing #180 mL soln levofloxacin 750 mg tablet 750 mg PO DAILY 5 days #5 tabs 03/22/24 Unknown Rx nebulizer and compressor #1 ea 03/22/24 Unknown Rx oseltamivir 75 mg capsule (Tamiflu) 75 mg PO BID 5 days #10 caps 03/22/24 Unknown Rx prednisone 20 mg tablet 40 mg (2 x 20 mg) PO DAILY 5 days 03/22/24 Unknown Rx #10 tabs Allergy/AdvReac Type Severity Reaction Status Date / Time tramadol HCl (From [facility]) Allergy Swelling Verified 03/22/24 00:13 codeine AdvReac PT UNSURE Verified 03/22/24 00:13 OF REACTION Family History Other Cancer Diabetes Heart disease Hypertension Surgical History History of herniorrhaphy History of tonsillectomy History of chest tube placement History of tracheostomy Social History (Updated 03/14/24 @ 02:[address] Joie Lopez DO) household members: none Smoking Status: Former smoker how long ago did patient quit smoking: Patient quit smoking 2 years ago alcohol intake: current alcohol intake frequency: holidays/special occasions only substance use type: does not use ROS ROS ED Constitutional Constitutional ED: Reports fever(s) and subjective; Denies chills ENT ENT ED: Reports rhinorrhea; Denies sore throat Cardiovascular Cardiovascular: Denies chest pain Respiratory/Chest Respiratory/Chest: Reports cough and dyspnea Gastrointestinal Gastrointestinal: Denies abdominal pain, diarrhea, nausea or vomiting Genitourinary Genitourinary ED: Denies dysuria Musculoskeletal Musculoskeletal: Reports myalgias Integumentary Denies rash Neurologic Neurologic: Denies headache(s) Hematologic/Lymphatic Hematologic/Lymphatic: Denies easy bleeding or easy bruising Allergic/Immunologic Allergic/Immunologic ED: Denies mouth swelling or tongue swelling EXAM Physical Exam Const Vital Signs: 03/22/24 00:09 03/22/24 00:14 03/22/24 00:41 Temperature 99.3 F H Temperature Source Oral Pulse Rate 130 H 118 H Respiratory Rate 2 (more content not included)... Normal [facility] Lactic Acidon 03-22-2024 Lactate [Moles/Vol] 1.9 mmol/L Normal 0.4-1.9 [facility] Comment on above: Order Comment: Y Performed By: #### L 503.6005, L100.0100 #### [facility] [address] [place], [address] M100.678on 03-22-2024 M100.678 Copy of report sent to Infection Control Printer [id number] 03/22/24624 CANDACE. [facility] 0137 Ernst Villanueva. REPORT READ BACK BY SAME. SARS-CoV-2 (COVID 19) Negative INFLUENZA A A Positive A INFLUENZA B Negative RSV PCR Negative INFLUENZAE A * This is an amended result. * A prior result that was reported as final has been changed. 03/22/24624 by CANDACE Barton [facility] Comment on above: Performed By: #### L 503.6620, L500.2500, L501.5200, L509.7000 #### [facility] [address] [place], [address] Magnesiumon 03-22-2024 Magnesium [Mass/Vol] 1.8 mg/dL Normal 1.6-2.6 [facility] Comment on above: Performed By: #### L 503.6620, L500.2500, L501.5200, L509.7000 #### [facility] [address] [place], [address] Procalcitoninon 03-22-2024 Procalcitonin 1.03 ng/mL High 0.00-0.09 [facility] Comment on above: Result Comment: A procalcitonin (PCT) level above 2.0 ng/mL on the first day of ICU admission is associated with a high risk for progression to severe sepsis and/or septic shock. A PCT level below 0.5 ng/mL on the first day of ICU admission is associated with a low risk for progression to severe and/or septic shock. Note: Concentrations <0.5 ng/mL do not exclude an infection on account of localized infections (without systemic signs) which can be associated with such low concentrations, or a systemic infection in its initial stages (<6 hours). Furthermore, increased procalcitonin can occur without infection. PCT concentrations between 0.5 and 2.0 ng/mL should be interpreted taking into account the patient's history. It is recommended to retest PCT within 6-24 hours if any concentrations <2 ng/mL are obtained. Performed By: #### L 503.6620, L500.2500, L501.5200, L509.7000 #### [facility] [address] [place], [address] Basic Metabolic Profile (BMP )on 03-21-2024 BUN Normal 7-18 [facility] Comment on above: Result Comment: Canc elled via OM: Order cancelled - Patient discharged Performed By: #### L 503.6620, L500.2500, L501.5200, L509.7000 #### [facility] [address] [place], [address] BUN/CRE Normal 10-20 [facility] Comment on above: Result Comment: Canc elled via OM: Order cancelled - Patient discharged Performed By: #### L 503.6620, L500.2500, L501.5200, L509.7000 #### [facility] [address] [place], [address] CA,Total Normal 8.5-10.1 [facility] Comment on above: Result Comment: Canc elled via OM: Order cancelled - Patient discharged Performed By: #### L 503.6620, L500.2500, L501.5200, L509.7000 #### [facility] [address] [place], [address] CL Normal 98-107 [facility] Comment on above: Result Comment: Canc elled via OM: Order cancelled - Patient discharged Performed By: #### L 503.6620, L500.2500, L501.5200, L509.7000 #### [facility] [address] [place], [address] CO2 Normal 21.0-32.0 [facility] Comment on above: Result Comment: Canc elled via OM: Order cancelled - Patient discharged Performed By: #### L 503.6620, L500.2500, L501.5200, L509.7000 #### [facility] [address] [place], [address] CREAT,SERUM Normal 0.70-1.30 [facility] Comment on above: Result Comment: Canc elled via OM: Order cancelled - Patient discharged Performed By: #### L 503.6620, L500.2500, L501.5200, L509.7000 #### [facility] [address] [place], [address] EST GFR Normal >60 [facility] Comment on above: Result Comment: Canc elled via OM: Order cancelled - Patient discharged Performed By: #### L 503.6620, L500.2500, L501.5200, L509.7000 #### [facility] [address] [place], [address] EST GFR - AA Normal >60 [facility] Comment on above: Result Comment: Canc elled via OM: Order cancelled - Patient discharged Performed By: #### L 503.6620, L500.2500, L501.5200, L509.7000 #### [facility] [address] [place], [address] GAP Normal 5-15 [facility] Comment on above: Result Comment: Canc elled via OM: Order cancelled - Patient discharged Performed By: #### L 503.6620, L500.2500, L501.5200, L509.7000 #### [facility] [address] [place], [address] GLU Normal 74-106 [facility] Comment on above: Result Comment: Canc elled via OM: Order cancelled - Patient discharged Performed By: #### L 503.6620, L500.2500, L501.5200, L509.7000 #### [facility] [address] [place], [address] Potassium Normal 3.5-5.1 [facility] Comment on above: Result Comment: Canc elled via OM: Order cancelled - Patient discharged Performed By: #### L 503.6620, L500.2500, L501.5200, L509.7000 #### [facility] [address] [place], [address] Basic Metabolic Profile (BMP) Normal 136-145 [facility] Comment on above: Result Comment: Canc elled via OM: Order cancelled - Patient discharged Performed By: #### L 503.6620, L500.2500, L501.5200, L509.7000 #### [facility] [address] [place], [address] CBC W/Diff, Automatedon 01-0 8-2024 Absolute Neut Normal 2.0-7.7 [facility] Comment on above: Result Comment: Canc elled via OM: Order cancelled - Patient discharged Performed By: #### L 503.6620, L500.2500, L501.5200, L509.7000 #### [facility] [address] [place], [address] HCT Normal 40-54 [facility] Comment on above: Result Comment: Canc elled via OM: Order cancelled - Patient discharged Performed By: #### L 503.6620, L500.2500, L501.5200, L509.7000 #### [facility] [address] [place], [address] HGB Normal 13.0-16.5 [facility] Comment on above: Result Comment: Canc elled via OM: Order cancelled - Patient discharged Performed By: #### L 503.6620, L500.2500, L501.5200, L509.7000 #### [facility] [address] [place], [address] MCH Normal 27.0-32.0 [facility] Comment on above: Result Comment: Canc elled via OM: Order cancelled - Patient discharged Performed By: #### L 503.6620, L500.2500, L501.5200, L509.7000 #### [facility] [address] [place], [address] MCHC Normal 32-36 [facility] Comment on above: Result Comment: Canc elled via OM: Order cancelled - Patient discharged Performed By: #### L 503.6620, L500.2500, L501.5200, L509.7000 #### [facility] [address] [place], [address] MCV Normal 80-94 [facility] Comment on above: Result Comment: Canc elled via OM: Order cancelled - Patient discharged Performed By: #### L 503.6620, L500.2500, L501.5200, L509.7000 #### [facility] [address] [place], [address] NEUT% Normal 47-70 [facility] Comment on above: Result Comment: Canc elled via OM: Order cancelled - Patient discharged Performed By: #### L 503.6620, L500.2500, L501.5200, L509.7000 #### [facility] [address] [place], [address] PLT Normal 150-450 [facility] Comment on above: Result Comment: Canc elled via OM: Order cancelled - Patient discharged Performed By: #### L 503.6620, L500.2500, L501.5200, L509.7000 #### [facility] [address] [place], [address] RBC Normal 4.6-6.2 [facility] Comment on above: Result Comment: Canc elled via OM: Order cancelled - Patient discharged Performed By: #### L 503.6620, L500.2500, L501.5200, L509.7000 #### [facility] [address] [place], [address] RDW CV Normal 11.6-14.6 [facility] Comment on above: Result Comment: Canc elled via OM: Order cancelled - Patient discharged Performed By: #### L 503.6620, L500.2500, L501.5200, L509.7000 #### [facility] [address] [place], [address] RDW SD Normal 35.1-43.9 [facility] Comment on above: Result Comment: Canc elled via OM: Order cancelled - Patient discharged Performed By: #### L 503.6620, L500.2500, L501.5200, L509.7000 #### [facility] [address] [place], [address] WBC Normal 4.4-11.0 [facility] Comment on above: Result Comment: Canc elled via OM: Order cancelled - Patient discharged Performed By: #### L 503.6620, L500.2500, L501.5200, L509.7000 #### [facility] [address] [place], [address] Basic Metabolic Profile (BMP )on 03-20-2024 BUN Normal 7-18 [facility] Comment on above: Result Comment: Canc elled via OM: Order cancelled - Patient discharged Performed By: #### L 503.6620, L500.2500, L501.5200, L509.7000 #### [facility] [address] [place], [address] BUN/CRE Normal 10-20 [facility] Comment on above: Result Comment: Canc elled via OM: Order cancelled - Patient discharged Performed By: #### L 503.6620, L500.2500, L501.5200, L509.7000 #### [facility] [address] [place], [address] CA,Total Normal 8.5-10.1 [facility] Comment on above: Result Comment: Canc elled via OM: Order cancelled - Patient discharged Performed By: #### L 503.6620, L500.2500, L501.5200, L509.7000 #### [facility] [address] [place], [address] CL Normal 98-107 [facility] Comment on above: Result Comment: Canc elled via OM: Order cancelled - Patient discharged Performed By: #### L 503.6620, L500.2500, L501.5200, L509.7000 #### [facility] [address] [place], [address] CO2 Normal 21.0-32.0 [facility] Comment on above: Result Comment: Canc elled via OM: Order cancelled - Patient discharged Performed By: #### L 503.6620, L500.2500, L501.5200, L509.7000 #### [facility] [address] [place], [address] CREAT,SERUM Normal 0.70-1.30 [facility] Comment on above: Result Comment: Canc elled via OM: Order cancelled - Patient discharged Performed By: #### L 503.6620, L500.2500, L501.5200, L509.7000 #### [facility] [address] [place], [address] EST GFR Normal >60 [facility] Comment on above: Result Comment: Canc elled via OM: Order cancelled - Patient discharged Performed By: #### L 503.6620, L500.2500, L501.5200, L509.7000 #### [facility] [address] [place], [address] EST GFR - AA Normal >60 [facility] Comment on above: Result Comment: Canc elled via OM: Order cancelled - Patient discharged Performed By: #### L 503.6620, L500.2500, L501.5200, L509.7000 #### [facility] [address] [place], [address] GAP Normal 5-15 [facility] Comment on above: Result Comment: Canc elled via OM: Order cancelled - Patient discharged Performed By: #### L 503.6620, L500.2500, L501.5200, L509.7000 #### [facility] [address] [place], [address] GLU Normal 74-106 [facility] Comment on above: Result Comment: Canc elled via OM: Order cancelled - Patient discharged Performed By: #### L 503.6620, L500.2500, L501.5200, L509.7000 #### [facility] [address] [place], [address] Potassium Normal 3.5-5.1 [facility] Comment on above: Result Comment: Canc elled via OM: Order cancelled - Patient discharged Performed By: #### L 503.6620, L500.2500, L501.5200, L509.7000 #### [facility] [address] [place], [address] Basic Metabolic Profile (BMP) Normal 136-145 [facility] Comment on above: Result Comment: Canc elled via OM: Order cancelled - Patient discharged Performed By: #### L 503.6620, L500.2500, L501.5200, L509.7000 #### [facility] [address] [place], [address] CBC W/Diff, Automatedon 01-0 -2024 Absolute Neut Normal 2.0-7.7 [facility] Comment on above: Result Comment: Canc elled via OM: Order cancelled - Patient discharged Performed By: #### L 503.6620, L500.2500, L501.5200, L509.7000 #### [facility] [address] [place], [address] HCT Normal 40-54 [facility] Comment on above: Result Comment: Canc elled via OM: Order cancelled - Patient discharged Performed By: #### L 503.6620, L500.2500, L501.5200, L509.7000 #### [facility] [address] [place], [address] HGB Normal 13.0-16.5 [facility] Comment on above: Result Comment: Canc elled via OM: Order cancelled - Patient discharged Performed By: #### L 503.6620, L500.2500, L501.5200, L509.7000 #### [facility] [address] [place], [address] MCH Normal 27.0-32.0 [facility] Comment on above: Result Comment: Canc elled via OM: Order cancelled - Patient discharged Performed By: #### L 503.6620, L500.2500, L501.5200, L509.7000 #### [facility] [address] [place], [address] MCHC Normal 32-36 [facility] Comment on above: Result Comment: Canc elled via OM: Order cancelled - Patient discharged Performed By: #### L 503.6620, L500.2500, L501.5200, L509.7000 #### [facility] [address] [place], [address] MCV Normal 80-94 [facility] Comment on above: Result Comment: Canc elled via OM: Order cancelled - Patient discharged Performed By: #### L 503.6620, L500.2500, L501.5200, L509.7000 #### [facility] [address] [place], [address] NEUT% Normal 47-70 [facility] Comment on above: Result Comment: Canc elled via OM: Order cancelled - Patient discharged Performed By: #### L 503.6620, L500.2500, L501.5200, L509.7000 #### [facility] [address] [place], [address] PLT Normal 150-450 [facility] Comment on above: Result Comment: Canc elled via OM: Order cancelled - Patient discharged Performed By: #### L 503.6620, L500.2500, L501.5200, L509.7000 #### [facility] [address] [place], [address] RBC Normal 4.6-6.2 [facility] Comment on above: Result Comment: Canc elled via OM: Order cancelled - Patient discharged Performed By: #### L 503.6620, L500.2500, L501.5200, L509.7000 #### [facility] [address] [place], [address] RDW CV Normal 11.6-14.6 [facility] Comment on above: Result Comment: Canc elled via OM: Order cancelled - Patient discharged Performed By: #### L 503.6620, L500.2500, L501.5200, L509.7000 #### [facility] [address] [place], [address] RDW SD Normal 35.1-43.9 [facility] Comment on above: Result Comment: Canc elled via OM: Order cancelled - Patient discharged Performed By: #### L 503.6620, L500.2500, L501.5200, L509.7000 #### [facility] [address] [place], [address] WBC Normal 4.4-11.0 [facility] Comment on above: Result Comment: Canc elled via OM: Order cancelled - Patient discharged Performed By: #### L 503.6620, L500.2500, L501.5200, L509.7000 #### [facility] [address] [place], [address] Basic Metabolic Profile (BMP )on 03-19-2024 BUN Normal 7-18 [facility] Comment on above: Result Comment: Canc elled via OM: Order cancelled - Patient discharged Performed By: #### L 100.0100, L500.2500 #### [facility] [address] [place], [address] BUN/CRE Normal 10-20 [facility] Comment on above: Result Comment: Canc elled via OM: Order cancelled - Patient discharged Performed By: #### L 100.0100, L500.2500 #### [facility] [address] [place], [address] CA,Total Normal 8.5-10.1 [facility] Comment on above: Result Comment: Canc elled via OM: Order cancelled - Patient discharged Performed By: #### L 100.0100, L500.2500 #### [facility] [address] [place], [address] CL Normal 98-107 [facility] Comment on above: Result Comment: Canc elled via OM: Order cancelled - Patient discharged Performed By: #### L 100.0100, L500.2500 #### [facility] [address] [place], [address] CO2 Normal 21.0-32.0 [facility] Comment on above: Result Comment: Canc elled via OM: Order cancelled - Patient discharged Performed By: #### L 100.0100, L500.2500 #### [facility] [address] [place], [address] CREAT,SERUM Normal 0.70-1.30 [facility] Comment on above: Result Comment: Canc elled via OM: Order cancelled - Patient discharged Performed By: #### L 100.0100, L500.2500 #### [facility] [address] [place], [address] EST GFR Normal >60 [facility] Comment on above: Result Comment: Canc elled via OM: Order cancelled - Patient discharged Performed By: #### L 100.0100, L500.2500 #### [facility] [address] [place], [address] EST GFR - AA Normal >60 [facility] Comment on above: Result Comment: Canc elled via OM: Order cancelled - Patient discharged Performed By: #### L 100.0100, L500.2500 #### [facility] [address] [place], [address] GAP Normal 5-15 [facility] Comment on above: Result Comment: Canc elled via OM: Order cancelled - Patient discharged Performed By: #### L 100.0100, L500.2500 #### [facility] [address] [place], [address] GLU Normal 74-106 [facility] Comment on above: Result Comment: Canc elled via OM: Order cancelled - Patient discharged Performed By: #### L 100.0100, L500.2500 #### [facility] [address] [place], [address] Potassium Normal 3.5-5.1 [facility] Comment on above: Result Comment: Canc elled via OM: Order cancelled - Patient discharged Performed By: #### L 100.0100, L500.2500 #### [facility] [address] [place], [address] Basic Metabolic Profile (BMP) Normal 136-145 [facility] Comment on above: Result Comment: Canc elled via OM: Order cancelled - Patient discharged Performed By: #### L 100.0100, L500.2500 #### [facility] [address] [place], [address] CBC W/Diff, Automatedon 01-0 -2024 Absolute Neut Normal 2.0-7.7 [facility] Comment on above: Result Comment: Canc elled via OM: Order cancelled - Patient discharged Performed By: #### L 100.0100, L500.2500 #### [facility] [address] [place], [address] HCT Normal 40-54 [facility] Comment on above: Result Comment: Canc elled via OM: Order cancelled - Patient discharged Performed By: #### L 100.0100, L500.2500 #### [facility] [address] [place], [address] HGB Normal 13.0-16.5 [facility] Comment on above: Result Comment: Canc elled via OM: Order cancelled - Patient discharged Performed By: #### L 100.0100, L500.2500 #### [facility] [address] [place], [address] MCH Normal 27.0-32.0 [facility] Comment on above: Result Comment: Canc elled via OM: Order cancelled - Patient discharged Performed By: #### L 100.0100, L500.2500 #### [facility] [address] [place], [address] MCHC Normal 32-36 [facility] Comment on above: Result Comment: Canc elled via OM: Order cancelled - Patient discharged Performed By: #### L 100.0100, L500.2500 #### [facility] [address] [place], [address] MCV Normal 80-94 [facility] Comment on above: Result Comment: Canc elled via OM: Order cancelled - Patient discharged Performed By: #### L 100.0100, L500.2500 #### [facility] [address] [place], [address] NEUT% Normal 47-70 [facility] Comment on above: Result Comment: Canc elled via OM: Order cancelled - Patient discharged Performed By: #### L 100.0100, L500.2500 #### [facility] [address] [place], [address] PLT Normal 150-450 [facility] Comment on above: Result Comment: Canc elled via OM: Order cancelled - Patient discharged Performed By: #### L 100.0100, L500.2500 #### [facility] [address] [place], [address] RBC Normal 4.6-6.2 [facility] Comment on above: Result Comment: Canc elled via OM: Order cancelled - Patient discharged Performed By: #### L 100.0100, L500.2500 #### [facility] [address] [place], [address] RDW CV Normal 11.6-14.6 [facility] Comment on above: Result Comment: Canc elled via OM: Order cancelled - Patient discharged Performed By: #### L 100.0100, L500.2500 #### [facility] [address] [place], [address] RDW SD Normal 35.1-43.9 [facility] Comment on above: Result Comment: Canc elled via OM: Order cancelled - Patient discharged Performed By: #### L 100.0100, L500.2500 #### [facility] [address] [place], [address] WBC Normal 4.4-11.0 [facility] Comment on above: Result Comment: Canc elled via OM: Order cancelled - Patient discharged Performed By: #### L 100.0100, L500.2500 #### [facility] [address] [place], [address] Basic Metabolic Profile (BMP )on 03-18-2024 BUN Normal 7-18 [facility] Comment on above: Result Comment: Canc elled via OM: Order cancelled - Patient discharged Performed By: #### L 503.6620, L500.2500, L501.5200, L509.7000 #### [facility] [address] [place], [address] BUN/CRE Normal 10-20 [facility] Comment on above: Result Comment: Canc elled via OM: Order cancelled - Patient discharged Performed By: #### L 503.6620, L500.2500, L501.5200, L509.7000 #### [facility] [address] [place], [address] CA,Total Normal 8.5-10.1 [facility] Comment on above: Result Comment: Canc elled via OM: Order cancelled - Patient discharged Performed By: #### L 503.6620, L500.2500, L501.5200, L509.7000 #### [facility] [address] [place], [address] CL Normal 98-107 [facility] Comment on above: Result Comment: Canc elled via OM: Order cancelled - Patient discharged Performed By: #### L 503.6620, L500.2500, L501.5200, L509.7000 #### [facility] [address] [place], [address] CO2 Normal 21.0-32.0 [facility] Comment on above: Result Comment: Canc elled via OM: Order cancelled - Patient discharged Performed By: #### L 503.6620, L500.2500, L501.5200, L509.7000 #### [facility] [address] [place], [address] CREAT,SERUM Normal 0.70-1.30 [facility] Comment on above: Result Comment: Canc elled via OM: Order cancelled - Patient discharged Performed By: #### L 503.6620, L500.2500, L501.5200, L509.7000 #### [facility] [address] [place], [address] EST GFR Normal >60 [facility] Comment on above: Result Comment: Canc elled via OM: Order cancelled - Patient discharged Performed By: #### L 503.6620, L500.2500, L501.5200, L509.7000 #### [facility] [address] [place], [address] EST GFR - AA Normal >60 [facility] Comment on above: Result Comment: Canc elled via OM: Order cancelled - Patient discharged Performed By: #### L 503.6620, L500.2500, L501.5200, L509.7000 #### [facility] [address] [place], [address] GAP Normal 5-15 [facility] Comment on above: Result Comment: Canc elled via OM: Order cancelled - Patient discharged Performed By: #### L 503.6620, L500.2500, L501.5200, L509.7000 #### [facility] [address] [place], [address] GLU Normal 74-106 [facility] Comment on above: Result Comment: Canc elled via OM: Order cancelled - Patient discharged Performed By: #### L 503.6620, L500.2500, L501.5200, L509.7000 #### [facility] [address] [place], [address] Potassium Normal 3.5-5.1 [facility] Comment on above: Result Comment: Canc elled via OM: Order cancelled - Patient discharged Performed By: #### L 503.6620, L500.2500, L501.5200, L509.7000 #### [facility] [address] [place], [address] Basic Metabolic Profile (BMP) Normal 136-145 [facility] Comment on above: Result Comment: Canc elled via OM: Order cancelled - Patient discharged Performed By: #### L 503.6620, L500.2500, L501.5200, L509.7000 #### [facility] [address] [place], [address] CBC W/Diff, Automatedon 01-0 -2024 Absolute Neut Normal 2.0-7.7 [facility] Comment on above: Result Comment: Canc elled via OM: Order cancelled - Patient discharged Performed By: #### L 503.6620, L500.2500, L501.5200, L509.7000 #### [facility] [address] [place], [address] HCT Normal 40-54 [facility] Comment on above: Result Comment: Canc elled via OM: Order cancelled - Patient discharged Performed By: #### L 503.6620, L500.2500, L501.5200, L509.7000 #### [facility] [address] [place], [address] HGB Normal 13.0-16.5 [facility] Comment on above: Result Comment: Canc elled via OM: Order cancelled - Patient discharged Performed By: #### L 503.6620, L500.2500, L501.5200, L509.7000 #### [facility] [address] [place], [address] MCH Normal 27.0-32.0 [facility] Comment on above: Result Comment: Canc elled via OM: Order cancelled - Patient discharged Performed By: #### L 503.6620, L500.2500, L501.5200, L509.7000 #### [facility] [address] [place], [address] MCHC Normal 32-36 [facility] Comment on above: Result Comment: Canc elled via OM: Order cancelled - Patient discharged Performed By: #### L 503.6620, L500.2500, L501.5200, L509.7000 #### [facility] [address] [place], [address] MCV Normal 80-94 [facility] Comment on above: Result Comment: Canc elled via OM: Order cancelled - Patient discharged Performed By: #### L 503.6620, L500.2500, L501.5200, L509.7000 #### [facility] [address] [place], [address] NEUT% Normal 47-70 [facility] Comment on above: Result Comment: Canc elled via OM: Order cancelled - Patient discharged Performed By: #### L 503.6620, L500.2500, L501.5200, L509.7000 #### [facility] [address] [place], [address] PLT Normal 150-450 [facility] Comment on above: Result Comment: Canc elled via OM: Order cancelled - Patient discharged Performed By: #### L 503.6620, L500.2500, L501.5200, L509.7000 #### [facility] [address] [place], [address] RBC Normal 4.6-6.2 [facility] Comment on above: Result Comment: Canc elled via OM: Order cancelled - Patient discharged Performed By: #### L 503.6620, L500.2500, L501.5200, L509.7000 #### [facility] [address] [place], [address] RDW CV Normal 11.6-14.6 [facility] Comment on above: Result Comment: Canc elled via OM: Order cancelled - Patient discharged Performed By: #### L 503.6620, L500.2500, L501.5200, L509.7000 #### [facility] [address] [place], [address] RDW SD Normal 35.1-43.9 [facility] Comment on above: Result Comment: Canc elled via OM: Order cancelled - Patient discharged Performed By: #### L 503.6620, L500.2500, L501.5200, L509.7000 #### [facility] [address] [place], [address] WBC Normal 4.4-11.0 [facility] Comment on above: Result Comment: Canc elled via OM: Order cancelled - Patient discharged Performed By: #### L 503.6620, L500.2500, L501.5200, L509.7000 #### [facility] [address] [place], [address] Basic Metabolic Profile (BMP )on 03-17-2024 BUN Normal 7-18 [facility] Comment on above: Result Comment: Canc elled via OM: Order cancelled - Patient discharged Performed By: #### L 503.6620, L500.2500, L501.5200, L509.7000 #### [facility] [address] [place], [address] BUN/CRE Normal 10-20 [facility] Comment on above: Result Comment: Canc elled via OM: Order cancelled - Patient discharged Performed By: #### L 503.6620, L500.2500, L501.5200, L509.7000 #### [facility] [address] [place], [address] CA,Total Normal 8.5-10.1 [facility] Comment on above: Result Comment: Canc elled via OM: Order cancelled - Patient discharged Performed By: #### L 503.6620, L500.2500, L501.5200, L509.7000 #### [facility] [address] [place], [address] CL Normal 98-107 [facility] Comment on above: Result Comment: Canc elled via OM: Order cancelled - Patient discharged Performed By: #### L 503.6620, L500.2500, L501.5200, L509.7000 #### [facility] [address] [place], [address] CO2 Normal 21.0-32.0 [facility] Comment on above: Result Comment: Canc elled via OM: Order cancelled - Patient discharged Performed By: #### L 503.6620, L500.2500, L501.5200, L509.7000 #### [facility] [address] [place], [address] CREAT,SERUM Normal 0.70-1.30 [facility] Comment on above: Result Comment: Canc elled via OM: Order cancelled - Patient discharged Performed By: #### L 503.6620, L500.2500, L501.5200, L509.7000 #### [facility] [address] [place], [address] EST GFR Normal >60 [facility] Comment on above: Result Comment: Canc elled via OM: Order cancelled - Patient discharged Performed By: #### L 503.6620, L500.2500, L501.5200, L509.7000 #### [facility] [address] [place], [address] EST GFR - AA Normal >60 [facility] Comment on above: Result Comment: Canc elled via OM: Order cancelled - Patient discharged Performed By: #### L 503.6620, L500.2500, L501.5200, L509.7000 #### [facility] [address] [place], [address] GAP Normal 5-15 [facility] Comment on above: Result Comment: Canc elled via OM: Order cancelled - Patient discharged Performed By: #### L 503.6620, L500.2500, L501.5200, L509.7000 #### [facility] [address] [place], [address] GLU Normal 74-106 [facility] Comment on above: Result Comment: Canc elled via OM: Order cancelled - Patient discharged Performed By: #### L 503.6620, L500.2500, L501.5200, L509.7000 #### [facility] [address] [place], [address] Potassium Normal 3.5-5.1 [facility] Comment on above: Result Comment: Canc elled via OM: Order cancelled - Patient discharged Performed By: #### L 503.6620, L500.2500, L501.5200, L509.7000 #### [facility] [address] [place], [address] Basic Metabolic Profile (BMP) Normal 136-145 [facility] Comment on above: Result Comment: Canc elled via OM: Order cancelled - Patient discharged Performed By: #### L 503.6620, L500.2500, L501.5200, L509.7000 #### [facility] [address] [place], [address] CBC W/Diff, Automatedon 01-0 Absolute Neut Normal 2.0-7.7 [facility] Comment on above: Result Comment: Canc elled via OM: Order cancelled - Patient discharged Performed By: #### L 503.6620, L500.2500, L501.5200, L509.7000 #### [facility] [address] [place], [address] HCT Normal 40-54 [facility] Comment on above: Result Comment: Canc elled via OM: Order cancelled - Patient discharged Performed By: #### L 503.6620, L500.2500, L501.5200, L509.7000 #### [facility] [address] [place], [address] HGB Normal 13.0-16.5 [facility] Comment on above: Result Comment: Canc elled via OM: Order cancelled - Patient discharged Performed By: #### L 503.6620, L500.2500, L501.5200, L509.7000 #### [facility] [address] [place], [address] MCH Normal 27.0-32.0 [facility] Comment on above: Result Comment: Canc elled via OM: Order cancelled - Patient discharged Performed By: #### L 503.6620, L500.2500, L501.5200, L509.7000 #### [facility] [address] [place], [address] MCHC Normal 32-36 [facility] Comment on above: Result Comment: Canc elled via OM: Order cancelled - Patient discharged Performed By: #### L 503.6620, L500.2500, L501.5200, L509.7000 #### [facility] [address] [place], [address] MCV Normal 80-94 [facility] Comment on above: Result Comment: Canc elled via OM: Order cancelled - Patient discharged Performed By: #### L 503.6620, L500.2500, L501.5200, L509.7000 #### [facility] [address] [place], [address] NEUT% Normal 47-70 [facility] Comment on above: Result Comment: Canc elled via OM: Order cancelled - Patient discharged Performed By: #### L 503.6620, L500.2500, L501.5200, L509.7000 #### [facility] [address] [place], [address] PLT Normal 150-450 [facility] Comment on above: Result Comment: Canc elled via OM: Order cancelled - Patient discharged Performed By: #### L 503.6620, L500.2500, L501.5200, L509.7000 #### [facility] [address] [place], [address] RBC Normal 4.6-6.2 [facility] Comment on above: Result Comment: Canc elled via OM: Order cancelled - Patient discharged Performed By: #### L 503.6620, L500.2500, L501.5200, L509.7000 #### [facility] [address] [place], [address] RDW CV Normal 11.6-14.6 [facility] Comment on above: Result Comment: Canc elled via OM: Order cancelled - Patient discharged Performed By: #### L 503.6620, L500.2500, L501.5200, L509.7000 #### [facility] [address] [place], [address] RDW SD Normal 35.1-43.9 [facility] Comment on above: Result Comment: Canc elled via OM: Order cancelled - Patient discharged Performed By: #### L 503.6620, L500.2500, L501.5200, L509.7000 #### [facility] [address] [place], [address] WBC Normal 4.4-11.0 [facility] Comment on above: Result Comment: Canc elled via OM: Order cancelled - Patient discharged Performed By: #### L 503.6620, L500.2500, L501.5200, L509.7000 #### [facility] [address] [place], [address] Basic Metabolic Profile (BMP )on 03-16-2024 BUN/CRE 15.2 RATIO Normal 10-20 [facility] Comment on above: Performed By: #### L 100.0100, L500.2500 #### [facility] [address] [place], [address] CA,Total 8.6 mg/dL Normal 8.5-10.1 [facility] Comment on above: Performed By: #### L 100.0100, L500.2500 #### [facility] [address] [place], [address] Chloride [Moles/Vol] 105 mmol/L Normal 98-107 [facility] [facility] Comment on above: Performed By: #### L 100.0100, L500.2500 #### [facility] [address] [place], [address] CO2 [Moles/Vol] 29.0 mmol/L Normal 21.0-32.0 [facility] Comment on above: Performed By: #### L 100.0100, L500.2500 #### [facility] [address] [place], [address] Creatinine [Mass/Vol] 0.92 mg/dL Normal 0.70-1.30 [facility] Comment on above: Result Comment: The validity of the calculated GFR GFRAA in patients over 70 years has not been determined. Clinical correlation is essential. Performed By: #### L 100.0100, L500.2500 #### [facility] [address] [place], [address] ECRCL 95.88 ml/min Normal [facility] Comment on above: Performed By: #### L 100.0100, L500.2500 #### [facility] [address] [place], [address] EST GFR - AA 110 mL/min Normal >60 [facility] Comment on above: Result Comment: Afri can Citizen Of [place] GFR Calc Performed By: #### L 100.0100, L500.2500 #### [facility] [address] [place], [address] GAP 3 Low 5-15 [facility] Comment on above: Performed By: #### L 100.0100, L500.2500 #### [facility] [address] [place], [address] GFR/1.73 sq M.predicted among non-blacks MDRD (S/P/Bld) [Vol rate/Area] 91 mL/min/{1.73_m2} Normal >60 [facility] Comment on above: Result Comment: Non- GFR Calc Performed By: #### L 100.0100, L500.2500 #### [facility] [address] [place], [address] Glucose [Mass/Vol] 133 mg/dL High 74-106 [facility] Comment on above: Result Comment: Fast ing Glucose result greater than or equal to 126 mg/dL suggests DIABETES MELLITUS per A.D.A. criteria. Performed By: #### L 100.0100, L500.2500 #### [facility] [address] [place], [address] Potassium [Moles/Vol] 4.4 mmol/L Normal 3.5-5.1 [facility] Comment on above: Performed By: #### L 100.0100, L500.2500 #### [facility] [address] [place], [address] Sodium [Moles/Vol] 137 mmol/L Normal 136-145 [facility] Comment on above: Performed By: #### L 100.0100, L500.2500 #### [facility] [address] [place], [address] Urea nitrogen [Mass/Vol] 14 mg/dL Normal 7-18 [facility] Comment on above: Performed By: #### L 100.0100, L500.2500 #### [facility] [address] [place], [address] CBC W/Diff, Automatedon 01-0 3-2024 Absolute Lymph 1.90 X10 3/uL Normal 0.83-4.51 [facility] Comment on above: Performed By: #### L 100.0100, L500.2500 #### [facility] [address] [place], [address] Absolute Neut 14.3 X10 3/uL High 2.0-7.7 [facility] Comment on above: Performed By: #### L 100.0100, L500.2500 #### [facility] [address] [place], [address] Basophils/100 WBC (Bld) 0.3 % Normal 0-1 [facility] Comment on above: Performed By: #### L 100.0100, L500.2500 #### [facility] [address] [place], [address] Eosinophils/100 WBC (Bld) 0.0 % Normal 0-5 [facility] Comment on above: Performed By: #### L 100.0100, L500.2500 #### [facility] [address] [place], [address] Erythrocyte distribution width (RBC) [Ratio] 18.4 % High 11.6-14.6 [facility] Comment on above: Performed By: #### L 100.0100, L500.2500 #### [facility] [address] [place], [address] Hematocrit (Bld) [Volume fraction] 26.5 % Low 40-54 [facility] Comment on above: Performed By: #### L 100.0100, L500.2500 #### [facility] [address] [place], [address] Hemoglobin (Bld) [Mass/Vol] 7.3 g/dL Low 13.0-16.5 [facility] Comment on above: Performed By: #### L 100.0100, L500.2500 #### [facility] [address] [place], [address] IG% 4.400 High 0.0-0.9 [facility] Comment on above: Result Comment: IG% - Immature Granulocytes (promyelocytes, myelocytes and metamyelocytes) > 1% indicates that a LEFT SHIFT is Present. Performed By: #### L 100.0100, L500.2500 #### [facility] [address] [place], [address] Lymphocytes/100 WBC (Bld) 10.6 % Low 19-41 [facility] Comment on above: Performed By: #### L 100.0100, L500.2500 #### [facility] [address] [place], [address] MCH (RBC) [Entitic mass] 19.9 pg Low 27.0-32.0 [facility] Comment on above: Performed By: #### L 100.0100, L500.2500 #### [facility] [address] [place], [address] MCHC (RBC) [Mass/Vol] 27.5 g/dL Low 32-36 [facility] Comment on above: Performed By: #### L 100.0100, L500.2500 #### [facility] [address] [place], [address] MCV (RBC) [Entitic vol] 72.4 fL Low 80-94 [facility] Comment on above: Performed By: #### L 100.0100, L500.2500 #### [facility] [address] [place], [address] Monocytes/100 WBC (Bld) 4.7 % Normal 0-10 [facility] Comment on above: Performed By: #### L 100.0100, L500.2500 #### [facility] [address] [place], [address] Neutrophils/100 WBC (Bld) 80.0 % High 47-70 [facility] Comment on above: Performed By: #### L 100.0100, L500.2500 #### [facility] [address] [place], [address] Nucleated RBC (Bld) [#/Vol] 0.8 10*3/uL Normal 0-5 [facility] Comment on above: Performed By: #### L 100.0100, L500.2500 #### [facility] [address] [place], [address] Platelet mean volume (Bld) [Entitic vol] 9.8 fL Normal 6.2-12.0 [facility] Comment on above: Performed By: #### L 100.0100, L500.2500 #### [facility] [address] [place], [address] Platelets (Bld) [#/Vol] 523 10*3/uL High 150-450 [facility] Comment on above: Performed By: #### L 100.0100, L500.2500 #### [facility] [address] [place], [address] RBC (Bld) [#/Vol] 3.66 10*6/uL Low 4.6-6.2 [facility] Comment on above: Performed By: #### L 100.0100, L500.2500 #### [facility] [address] [place], [address] RDW SD 45.3 fl High 35.1-43.9 [facility] Comment on above: Performed By: #### L 100.0100, L500.2500 #### [facility] [address] [place], [address] WBC (Bld) [#/Vol] 17.9 10*3/uL High 4.4-11.0 [facility] Comment on above: Performed By: #### L 100.0100, L500.2500 #### [facility] [address] [place], [address] Discharge Instructionon Discharge Instruction [facility] Medical Records Department [address] [place] [address] Instructions for Home/Discharge Instructions 03/16/24 1035 MR#: [id number] Acct: [id number] Name: LUIS STEELE II Rep #: [id number] : 1970 53 From: Sharita Rich MD PCP: Dr. Antwan Buchanan, DO Status:ADM IN Discharge Instructions Diet Discharge Diet: Low fat / Low cholesterol DC O2, CPAP, BIPAP needs Home O2 Discharge instructions: Yes Type of respiratory needs?: Oxygen Oxygen frequency: Continuous Continuous oxygen liters per minute: 4 Dressing / Incision Discharge Activity: Return to Normal Activity Weight Bearing Status: Weight bearing as tolerated Dressing / Incision Call your doctor if you observe: Fever of 101 or Higher, Shortness of breath, Dizziness, Swelling in the ankles and Chest pain Follow Up Care Test Results: Test results from this visit will be discussed in further detail at your follow-up appointment, if applicable. Discharge Plan Admission Admit Date/Time: 03/14/24 01:57 Primary Reason for Your Visit: COPD exacerbation, pneumonia Attending Provider: Sharita Rich Primary Care Provider: Antwan Buchanan Consulting Providers: Joie Lopez; Júnior Caraballo Instructions Patient Instructions: COPD Controlled Breathing Dc Discharge Orders/Prescriptions Prescriptions: New levofloxacin 750 mg tablet 750 mg PO DAILY Qty: 4 0RF prednisone 20 mg tablet 40 mg PO DAILY Qty: 10 0RF Continued sertraline 100 MG tablet 100 mg PO DAILY Patient Comments: MENTAL HEALTH trazodone 50 mg tablet 100 - 150 mg PO PRN Patient Comments: take 1 to 3 tablets by mouth at bedtime pantoprazole 40 mg tablet,delayed release (DR/EC) 40 mg PO BID Patient Comments: take 1 tablet by mouth twice a day ipratropium-albuterol 0.5 mg-3 mg(2.5 mg base)/3 mL Solution For Nebulization 3 ml INHALATION Q4H PRN (Reason: breathing) albuterol sulfate [Ventolin HFA] 90 mcg/actuation HFA aerosol inhaler 2 puff inhalation Q4H PRN PRN (Reason: Wheezing) Qty: 1 0RF ferrous sulfate [Iron (ferrous sulfate)] 325 mg (65 mg iron) tablet 325 mg PO DAILY Qty: 90 0RF fluticasone propion-salmeterol [Advair HFA] 230-21 mcg/actuation HFA aerosol inhaler 2 puff inhalation BID Spiriva Respimat 2.5 mcg/actuation mist 2 puff inhalation DAILY Referrals / Follow Up: Antwan Buchanan DO [Primary Care Provider] - Within 1 Week Disposition Disposition (needs filled in before D/C Order can be placed): Home, Self Care 03/16/24 [facility] Sharita Rich MD CC: Dr. Júnior Caraballo DO; Dr. Antwan Buchanan DO; Dr. Joie Lopez DO Signed Normal [facility] CBC-Complete Blood Cnt No Di ffon 03-15-2024 Erythrocyte distribution width (RBC) [Ratio] 17.6 % High 11.6-14.6 [facility] Comment on above: Performed By: #### L 503.6620, L500.2500, L501.5200, L509.7000 #### [facility] [address] [place], [address] Hematocrit (Bld) [Volume fraction] 26.0 % Low 40-54 [facility] Comment on above: Performed By: #### L 503.6620, L500.2500, L501.5200, L509.7000 #### [facility] [address] [place], [address] Hemoglobin (Bld) [Mass/Vol] 7.1 g/dL Low 13.0-16.5 [facility] Comment on above: Performed By: #### L 503.6620, L500.2500, L501.5200, L509.7000 #### [facility] [address] [place], [address] MCH (RBC) [Entitic mass] 19.5 pg Low 27.0-32.0 [facility] Comment on above: Performed By: #### L 503.6620, L500.2500, L501.5200, L509.7000 #### [facility] [address] [place], [address] MCHC (RBC) [Mass/Vol] 27.3 g/dL Low 32-36 [facility] Comment on above: Performed By: #### L 503.6620, L500.2500, L501.5200, L509.7000 #### [facility] [address] [place], [address] MCV (RBC) [Entitic vol] 71.4 fL Low 80-94 [facility] Comment on above: Performed By: #### L 503.6620, L500.2500, L501.5200, L509.7000 #### [facility] [address] [place], [address] Platelet mean volume (Bld) [Entitic vol] 9.9 fL Normal 6.2-12.0 [facility] Comment on above: Performed By: #### L 503.6620, L500.2500, L501.5200, L509.7000 #### [facility] [address] [place], [address] Platelets (Bld) [#/Vol] 558 10*3/uL High 150-450 [facility] Comment on above: Performed By: #### L 503.6620, L500.2500, L501.5200, L509.7000 #### [facility] [address] [place], [address] RBC (Bld) [#/Vol] 3.64 10*6/uL Low 4.6-6.2 [facility] Comment on above: Performed By: #### L 503.6620, L500.2500, L501.5200, L509.7000 #### [facility] [address] [place], [address] RDW SD 45.1 fl High 35.1-43.9 [facility] Comment on above: Performed By: #### L 503.6620, L500.2500, L501.5200, L509.7000 #### [facility] [address] [place], [address] WBC (Bld) [#/Vol] 17.0 10*3/uL High 4.4-11.0 [facility] Comment on above: Performed By: #### L 503.6620, L500.2500, L501.5200, L509.7000 #### [facility] [address] [place], [address] HH, Hemoglobin AND Hematocri ton 03-15-2024 Hematocrit (Bld) [Volume fraction] 28.8 % Low 40-54 [facility] Comment on above: Performed By: #### L 503.6620, L500.2500, L501.5200, L509.7000 #### [facility] [address] [place], [address] Hemoglobin (Bld) [Mass/Vol] 7.9 g/dL Low 13.0-16.5 [facility] Comment on above: Performed By: #### L 503.6620, L500.2500, L501.5200, L509.7000 #### [facility] [address] [place], [address] Renal Profileon 03-15-2024 Albumin [Mass/Vol] 3.2 g/dL Normal 3.2-5.0 [facility] Comment on above: Performed By: #### L 503.6620, L500.2500, L501.5200, L509.7000 #### [facility] [address] [place], [address] BUN/CRE 14.9 RATIO Normal 10-20 [facility] Comment on above: Performed By: #### L 503.6620, L500.2500, L501.5200, L509.7000 #### [facility] [address] [place], [address] CA,Total 9.1 mg/dL Normal 8.5-10.1 [facility] Comment on above: Performed By: #### L 503.6620, L500.2500, L501.5200, L509.7000 #### [facility] [address] [place], [address] Chloride [Moles/Vol] 105 mmol/L Normal 98-107 [facility] Comment on above: Performed By: #### L 503.6620, L500.2500, L501.5200, L509.7000 #### [facility] [address] [place], [address] CO2 [Moles/Vol] 29.0 mmol/L Normal 21.0-32.0 [facility] Comment on above: Performed By: #### L 503.6620, L500.2500, L501.5200, L509.7000 #### [facility] [address] [place], [address] Creatinine [Mass/Vol] 0.94 mg/dL Normal 0.70-1.30 [facility] Comment on above: Result Comment: The validity of the calculated GFR GFRAA in patients over 70 years has not been determined. Clinical correlation is essential. Performed By: #### L 503.6620, L500.2500, L501.5200, L509.7000 #### [facility] [address] [place], [address] ECRCL 90.75 ml/min Normal [facility] Comment on above: Performed By: #### L 503.6620, L500.2500, L501.5200, L509.7000 #### [facility] [address] [place], [address] EST GFR - AA 108 mL/min Normal >60 [facility] Comment on above: Result Comment: Afri can Citizen [place] GFR Calc Performed By: #### L 503.6620, L500.2500, L501.5200, L509.7000 #### [facility] [address] [place], [address] GFR/1.73 sq M.predicted among non-blacks MDRD (S/P/Bld) [Vol rate/Area] 89 mL/min/{1.73_m2} Normal >60 [facility] Comment on above: Result Comment: Non- GFR Calc Performed By: #### L 503.6620, L500.2500, L501.5200, L509.7000 #### [facility] [address] [place], [address] Glucose [Mass/Vol] 132 mg/dL High 74-106 [facility] Comment on above: Result Comment: Fast ing Glucose result greater than or equal to 126 mg/dL suggests DIABETES MELLITUS per A.D.A. criteria. Performed By: #### L 503.6620, L500.2500, L501.5200, L509.7000 #### [facility] [address] [place], [address] Phosphate [Mass/Vol] 3.3 mg/dL Normal 2.5-4.9 [facility] Comment on above: Performed By: #### L 503.6620, L500.2500, L501.5200, L509.7000 #### [facility] [address] [place], [address] Potassium [Moles/Vol] 4.5 mmol/L Normal 3.5-5.1 [facility] Comment on above: Performed By: #### L 503.6620, L500.2500, L501.5200, L509.7000 #### [facility] [address] [place], [address] Sodium [Moles/Vol] 139 mmol/L Normal 136-145 [facility] Comment on above: Performed By: #### L 503.6620, L500.2500, L501.5200, L509.7000 #### [facility] [address] [place], [address] Urea nitrogen [Mass/Vol] 14 mg/dL Normal 7-18 [facility] Comment on above: Performed By: #### L 503.6620, L500.2500, L501.5200, L509.7000 #### [facility] [address] [place], [address] Vancomycin, Trough Levelon 0 03-15-2024 VANCO, TROUGH 10.4 ug/mL Normal 5.0-15.0 [facility] Comment on above: Order Comment: Comme nts: Trough to be drawn 30 mins prior to scheduled [id number] Result Comment: VANC OMYCIN STANDARED DRUG THERAPY TROUGH LEVEL: 5.0 - 15.0 mg/L VANCOMYCIN HIGH INTENSITY THERAPY TROUGH LEVEL: 15.0 - 20.0 mg/L High Intensity therapy recommended for serious life threatening infections include: - Meningitis -Endocarditis -Pneumonia (Ventilator/Healtcare Associated) -Sepsis PLEASE CONTACT PHARMACY SERVICES (#[phone]) FOR INTERPRETATION OF RESULTS. Performed By: #### L 503.6620, L500.2500, L501.5200, L509.7000 #### [facility] [address] [place], [address] CBC W/Diff, Automatedon Absolute Lymph 0.58 X10 3/uL Low 0.83-4.51 [facility] Comment on above: Performed By: #### L 100.0100, L500.2500 #### [facility] [address] [place], [address] Absolute Neut 14.4 X10 3/uL High 2.0-7.7 [facility] Comment on above: Performed By: #### L 100.0100, L500.2500 #### [facility] [address] [place], [address] Basophils/100 WBC (Bld) 0.2 % Normal 0-1 [facility] Comment on above: Performed By: #### L 100.0100, L500.2500 #### [facility] [address] [place], [address] Eosinophils/100 WBC (Bld) 0.0 % Normal 0-5 [facility] Comment on above: Performed By: #### L 100.0100, L500.2500 #### [facility] [address] [place], [address] Erythrocyte distribution width (RBC) [Ratio] 17.3 % High 11.6-14.6 [facility] Comment on above: Performed By: #### L 100.0100, L500.2500 #### [facility] [address] [place], [address] Hematocrit (Bld) [Volume fraction] 29.0 % Low 40-54 [facility] Comment on above: Performed By: #### L 100.0100, L500.2500 #### [facility] [address] [place], [address] Hemoglobin (Bld) [Mass/Vol] 8.0 g/dL Low 13.0-16.5 [facility] Comment on above: Performed By: #### L 100.0100, L500.2500 #### [facility] [address] [place], [address] IG% 0.700 Normal 0.0-0.9 [facility] Comment on above: Result Comment: IG% - Immature Granulocytes (promyelocytes, myelocytes and metamyelocytes) > 1% indicates that a LEFT SHIFT is Present. Performed By: #### L 100.0100, L500.2500 #### [facility] [address] [place], [address] Lymphocytes/100 WBC (Bld) 3.8 % Low 19-41 [facility] Comment on above: Performed By: #### L 100.0100, L500.2500 #### [facility] [address] [place], [address] MCH (RBC) [Entitic mass] 19.7 pg Low 27.0-32.0 [facility] Comment on above: Performed By: #### L 100.0100, L500.2500 #### [facility] [address] [place], [address] MCHC (RBC) [Mass/Vol] 27.6 g/dL Low 32-36 [facility] Comment on above: Performed By: #### L 100.0100, L500.2500 #### [facility] [address] [place], [address] MCV (RBC) [Entitic vol] 71.3 fL Low 80-94 [facility] Comment on above: Performed By: #### L 100.0100, L500.2500 #### [facility] [address] [place], [address] Monocytes/100 WBC (Bld) 0.7 % Normal 0-10 [facility] Comment on above: Performed By: #### L 100.0100, L500.2500 #### [facility] [address] [place], [address] Neutrophils/100 WBC (Bld) 94.6 % High 47-70 [facility] Comment on above: Performed By: #### L 100.0100, L500.2500 #### [facility] [address] [place], [address] Nucleated RBC (Bld) [#/Vol] 0 10*3/uL Normal 0-5 [facility] Comment on above: Performed By: #### L 100.0100, L500.2500 #### [facility] [address] [place], [address] Platelet mean volume (Bld) [Entitic vol] 9.5 fL Normal 6.2-12.0 [facility] Comment on above: Performed By: #### L 100.0100, L500.2500 #### [facility] [address] [place], [address] Platelets (Bld) [#/Vol] 535 10*3/uL High 150-450 [facility] Comment on above: Performed By: #### L 100.0100, L500.2500 #### [facility] [address] [place], [address] RBC (Bld) [#/Vol] 4.07 10*6/uL Low 4.6-6.2 [facility] Comment on above: Performed By: #### L 100.0100, L500.2500 #### [facility] [address] [place], [address] RDW SD 43.9 fl Normal 35.1-43.9 [facility] Comment on above: Performed By: #### L 100.0100, L500.2500 #### [facility] [address] [place], [address] WBC (Bld) [#/Vol] 15.2 10*3/uL High 4.4-11.0 [facility] Comment on above: Performed By: #### L 100.0100, L500.2500 #### [facility] [address] [place], [address] Comprehensive Metabolic Prof ilon 03-14-2024 Albumin [Mass/Vol] 3.5 g/dL Normal 3.2-5.0 [facility] Comment on above: Performed By: #### L 100.0100, L500.2500 #### [facility] [address] [place], [address] Albumin/Globulin [Mass ratio] 0.7 {ratio} Low 0.9-2.4 [facility] Comment on above: Performed By: #### L 100.0100, L500.2500 #### [facility] [address] [place], [address] ALK P 82 U/L Normal 45-117 [facility] Comment on above: Performed By: #### L 100.0100, L500.2500 #### [facility] [address] [place], [address] ALT [Catalytic activity/Vol] 17 U/L Normal 16-61 [facility] Comment on above: Performed By: #### L 100.0100, L500.2500 #### [facility] [address] [place], [address] AST [Catalytic activity/Vol] 7 U/L Low 15-37 [facility] Comment on above: Performed By: #### L 100.0100, L500.2500 #### [facility] [address] [place], [address] Bilirubin [Mass/Vol] 0.40 mg/dL Normal 0.20-1.00 [facility] Comment on above: Result Comment: For patients on eltrombopag therapy, use of Dimension Lewis TBIL is not recommended. Performed By: #### L 100.0100, L500.2500 #### [facility] [address] [place], [address] BUN/CRE 11.7 RATIO Normal 10-20 [facility] Comment on above: Performed By: #### L 100.0100, L500.2500 #### [facility] [address] [place], [address] CA,Total 8.8 mg/dL Normal 8.5-10.1 [facility] Comment on above: Performed By: #### L 100.0100, L500.2500 #### [facility] [address] [place], [address] Chloride [Moles/Vol] 106 mmol/L Normal 98-107 [facility] Comment on above: Performed By: #### L 100.0100, L500.2500 #### [facility] [address] [place], [address] CO2 [Moles/Vol] 27.0 mmol/L Normal 21.0-32.0 [facility] Comment on above: Performed By: #### L 100.0100, L500.2500 #### [facility] [address] [place], [address] Creatinine [Mass/Vol] 1.03 mg/dL Normal 0.70-1.30 [facility] Comment on above: Result Comment: The validity of the calculated GFR GFRAA in patients over 70 years has not been determined. Clinical correlation is essential. Performed By: #### L 100.0100, L500.2500 #### [facility] [address] [place], [address] ECRCL 82.35 ml/min Normal [facility] Comment on above: Performed By: #### L 100.0100, L500.2500 #### [facility] [address] [place], [address] EST GFR - AA 97 mL/min Normal >60 [facility] Comment on above: Result Comment: Afri can Citizen Of [place] GFR Calc Performed By: #### L 100.0100, L500.2500 #### [facility] [address] [place], [address] GAP 5 Normal 5-15 [facility] Comment on above: Performed By: #### L 100.0100, L500.2500 #### [facility] [address] [place], [address] GFR/1.73 sq M.predicted among non-blacks MDRD (S/P/Bld) [Vol rate/Area] 80 mL/min/{1.73_m2} Normal >60 [facility] Comment on above: Result Comment: Non- GFR Calc Performed By: #### L 100.0100, L500.2500 #### [facility] [address] [place], [address] Globulin (S) [Mass/Vol] 4.8 g/dL High 2.2-4.2 [facility] Comment on above: Performed By: #### L 100.0100, L500.2500 #### [facility] [address] [place], [address] Glucose [Mass/Vol] 145 mg/dL High 74-106 [facility] Comment on above: Result Comment: Fast ing Glucose result greater than or equal to 126 mg/dL suggests DIABETES MELLITUS per A.D.A. criteria. Performed By: #### L 100.0100, L500.2500 #### [facility] [address] [place], [address] Potassium [Moles/Vol] 4.3 mmol/L Normal 3.5-5.1 [facility] Comment on above: Performed By: #### L 100.0100, L500.2500 #### [facility] [address] [place], [address] Sodium [Moles/Vol] 138 mmol/L Normal 136-145 [facility] Comment on above: Performed By: #### L 100.0100, L500.2500 #### [facility] [address] [place], [address] T PROT 8.3 g/dL High 6.4-8.2 [facility] Comment on above: Performed By: #### L 100.0100, L500.2500 #### [facility] [address] [place], [address] Urea nitrogen [Mass/Vol] 12 mg/dL Normal 7-18 [facility] Comment on above: Performed By: #### L 100.0100, L500.2500 #### [facility] [address] [place], [address] Consultation - Intensiviston 03-14-2024 Consultation - Carpenter'S Assistant [facility] Medical Records Department [address] [facility] [place] [address] Consultation - Carpenter'S Assistant 03/14/24 0632 MR#: [id number] Acct: [id number] Name: LUIS STEELE II Rep #: [id number] : 1970 53 From: Chema Block DO PCP: Dr. Antwan Buchanan, Status:ADM IN Location: ICU ICU03-1 Assessment Plan Assessment/Plan (1) Acute on chronic hypoxic respiratory failure: (2) COPD exacerbation: PLAN: Plan RECOMMENDATIONS: 1. Continue empiric antimicrobials. 2. Continue scheduled bronchodilators and IV steroids. 3. Aggressive bronchopulmonary hygiene. 4. Encourage incentive spirometer use and mobilize patient as tolerated. 5. Wean supplemental oxygen to maintain saturations at or above 90%. 6. Continue appropriate DVT prophylaxis. IMPRESSIONS: 1. Acute on chronic hypoxemic respiratory failure Clinical concern for COPD exacerbation secondary to pneumonia with mucous plugging. The patient has improved from a clinical perspective with noninvasive positive pressure ventilatory support along with empiric antimicrobials, IV steroids and bronchodilators, all of which will be continued. The patient has advanced age COPD along with a baseline oxygen requirement of 4 L/min and is currently followed by Dr. Manuel Block of pulmonary medicine on an outpatient basis. Recommend close outpatient follow-up after discharge with his primary pulmonary provider. 2. History of iron deficiency anemia/remote alcohol and tobacco dependency Complicates care, management, recovery and prognosis. Continue home medications as indicated. This note was generated with [employer] dictation software. It may contain incorrect words, spelling, and punctuation that were not noted in checking the note before signing. HPI Consult Data Date of Consult: 03/14/24 HPI Narrative Reason for Consultation: Respiratory failure HPI Narrative: The patient is a 53-year-old male, with a history as outlined below, who presented to the emergency department on March 14 with worsening shortness of breath. The patient has a known history of chronic hypoxemic respiratory failure with a baseline oxygen requirement of 4 L/min, COPD, along with remote history of alcohol and tobacco dependency. The patient reported that he is currently following with Dr. Manuel Block of pulmonary medicine at [facility]. He appears to be on a triple therapy inhaler regimen on an outpatient basis. The patient denied the presence of a productive cough. On presentation to the emergency department, the patient was documented to be afebrile but was notably tachycardic tachypneic. Laboratory evaluation revealed a white blood cell count of 15,000. Hemoglobin was stable at 8.6 g/dL with a platelet count of 627,000. Chemistry profile was unremarkable, with the exception of a lactate of 2.1. CTA chest showed no evidence for pulmonary embolism. There was significant bilateral emphysematous changes along with lower lobe bronchiectasis and lower lobe mucous plugging. Blood cultures were obtained. COVID, influenza and RSV PCR's were negative. Respiratory viral panel was negative. Strep and urine Legionella antigens were negative. The patient was started on antimicrobial therapy along with scheduled bronchodilators and IV steroids. The patient was placed on BiPAP therapy and admitted to the medical intensive care unit for further management. This morning, the patient appears quite comfortable. He is maintaining appropriate oxygen saturations in the high 90s on his baseline requirement of 4 L/min. He did report interval improvement in his shortness of breath with prescribed medical therapy. [facility] Medical History Chronic hypoxic respiratory failure History and physical examination, immigration Exposure to COVID-19 virus Alcohol abuse Ulcer Smoker TIA (transient ischemic attack) History of bacterial pneumonia Depression Anxiety COPD (chronic obstructive pulmonary disease) History of tobacco use Home Medications ???Medication ???Instructions ???Recorded ???Last Taken ???Type sertraline 100 mg tablet 100 mg PO DAILY mood 11/19/14 10/19/22 10:00 History pantoprazole 40 mg tablet,delayed 40 mg PO BID stomache 03/20/21 10/19/22 10:00 History release trazodone 50 mg tablet 100 - 150 mg PO PRN sleep 03/20/21 03/18/21 History ipratropium 0.5 mg-albuterol 3 mg 3 ml inhalation Q4H PRN breathing 08/15/21 10/19/22 10:00 History (2.5 mg base)/3 mL nebulization soln albuterol sulfate 90 mcg/actuation 2 puff inhalation Q4H PRN PRN 02/10/22 10/19/22 10:00 Rx aerosol inhaler (Ventolin HFA) Wheezing ##1 ferrous sulfate 325 mg (65 mg 325 mg PO DAILY #90 tabs 11/14/22 Unknown Rx iron) tablet (Iron (ferrous sulfate)) fluticasone propionate 230 2 puff inhalation BID 03/13/24 Unknown History mcg-salmeterol 21 mcg/actuation HFA inhaler (Advair HFA) (more content not included)... Normal [facility] Emergency Department Summary on 03-14-2024 Emergency Department Summary [facility] Medical Records Department [address] [place] [id number] Emergency Department Summary 03/14/24 MR#: [id number] Acct: [id number] Name: LUIS STEELE II Rep #: [id number] : 1970 53 From: Anselmo Bustos DO PCP: Dr. Antwan Buchanan, Status:ADM IN Location: ICU ICU03-1 HPI History of Present Illness Chief Complaint: Shortness of Breath Informant: patient, family and EMS Narrative Narrative: Patient is a 53-year-old male with past medical history of COPD who wears chronic nasal cannula oxygen. Roughly 10 years ago he had bilateral pneumonia requiring intubation and then subsequently developed subcutaneous emphysema requiring tracheostomy. Patient states that over the last few days has been having increasing cough and shortness of breath. He denies any fevers chills or known sick contacts. Secondary to his worsening shortness of breath EMS was called. EMS states when they arrived the patient was showing visible work of breathing and his pulse ox was approximately 75% on his home oxygen. Secondary to this they placed him on CPAP and gave him 2 DuoNeb treatments and steroids and upon arrival the patient does report feeling better and his pulse ox has improved. [facility] Medical History Chronic hypoxic respiratory failure History and physical examination, immigration Exposure to COVID-19 virus Alcohol abuse Ulcer Smoker TIA (transient ischemic attack) History of bacterial pneumonia Depression Anxiety COPD (chronic obstructive pulmonary disease) History of tobacco use Home Medications ???Medication ???Instructions ???Recorded ???Last Taken ???Type sertraline 100 mg tablet 100 mg PO DAILY mood 11/19/14 10/19/22 10:00 History pantoprazole 40 mg tablet,delayed 40 mg PO BID stomache 03/20/21 10/19/22 10:00 History release trazodone 50 mg tablet 100 - 150 mg PO PRN sleep 03/20/21 03/18/21 History ipratropium 0.5 mg-albuterol 3 mg 3 ml inhalation Q4H PRN breathing 08/15/21 10/19/22 10:00 History (2.5 mg base)/3 mL nebulization soln albuterol sulfate 90 mcg/actuation 2 puff inhalation Q4H PRN PRN 02/10/22 10/19/22 10:00 Rx aerosol inhaler (Ventolin HFA) Wheezing ##1 ferrous sulfate 325 mg (65 mg 325 mg PO DAILY #90 tabs 11/14/22 Unknown Rx iron) tablet (Iron (ferrous sulfate)) fluticasone propionate 230 2 puff inhalation BID 03/13/24 Unknown History mcg-salmeterol 21 mcg/actuation HFA inhaler (Advair HFA) tiotropium bromide 2.5 2 puff inhalation DAILY 03/13/24 Unknown History mcg/actuation mist for inhalation (Spiriva Respimat) Allergy/AdvReac Type Severity Reaction Status Date / Time tramadol HCl (From [facility]) Allergy Swelling Verified 03/13/24 22:21 codeine AdvReac PT UNSURE Verified 03/13/24 22:21 OF REACTION Family History Other Cancer Diabetes Heart disease Hypertension Surgical History History of herniorrhaphy History of tonsillectomy History of chest tube placement History of tracheostomy Social History (Updated 03/14/24 @ 02:[address] Joie Lopez DO) household members: none Smoking Status: Former smoker how long ago did patient quit smoking: Patient quit smoking 2 years ago alcohol intake: current alcohol intake frequency: holidays/special occasions only substance use type: does not use ROS ROS ED Constitutional Constitutional ED: Denies chills or fever(s) Eyes Eyes: Denies change in vision ENT ENT ED: Denies sore throat Cardiovascular Cardiovascular: Reports racing heartbeat; Denies chest pain or palpitations Respiratory/Chest Respiratory/Chest: Reports cough and dyspnea Gastrointestinal Gastrointestinal: Denies abdominal pain, diarrhea, nausea or vomiting Genitourinary Genitourinary ED: Denies dysuria Musculoskeletal Musculoskeletal: Reports back pain Integumentary Denies rash Neurologic Neurologic: Denies headache(s) Hematologic/Lymphatic Hematologic/Lymphatic: Denies easy bleeding or easy bruising Allergic/Immunologic Allergic/Immunologic ED: Denies mouth swelling or tongue swelling EXAM Physical Exam Const Vital Signs: 03/13/24 22:20 03/13/24 22:20 03/13/24 22:25 Temperature 97.4 F L 97.4 F L Temperature Source Temporal Temporal Pulse Rate 122 H 121 H Respiratory Rate 20 H 22 H Respiratory Effort Short of Breath Labored Respiratory Depth Shallow Respiratory Pattern Tachypnea Blood Pressure 158/92 H 158/92 H Blood Pressure Mean 114 114 Pulse Ox 100 100 Oxygen Delivery Method Bi-pap Bi-pap Bi-pap Fraction of Inspired Oxygen (FIO2) 60 60 60 03/13/24 22:25 03/13/24 22:25 03/13/24 22:29 Temperature Temperature Source Pulse Rate 122 H 131 H Respi (more content not included)... Normal [facility] H AND P Exam - Hospitaliston 03-14-2024 H&P Exam - Hospitalist [facility] Medical Records Department [address] [place] [address] H P Exam - Hospitalist 03/14/24 0206 MR#: [id number] Acct: [id number] Name: LUIS STEELE AUDREY Rep #: [id number] : 1970 53 From: Joie Lopez DO PCP: Dr. Antwan Buchanan, DO Status:ADM IN Location: ICU ICU03-1 HPI - General General Date of Admission: 03/14/24 Date of Service: 03/14/24 Chief Complaint: Shortness of breath HPI Narrative LUIS STEELE, is a 53 M who presented to the emergency department late on 03/13/2024 secondary to worsening shortness of breath. Patient states his symptoms started about 2 days prior. He has not had any associated nasal congestion, headache, sore throat and he does not have a significant cough. Sputum production is his baseline. He does have a history of MRSA pneumonia previously and required tracheostomy in 2015. He does wear oxygen at baseline and 4 L nasal cannula. Upon presentation the emergency department, it was indicated that he was tripoding severely and markedly hypoxic and was placed on BiPAP. He quit smoking 2 years ago. FEV1 on his most recent PFTs was 31% predicted. Vital signs on presentation showed temperature of 97.4, heart rate 112, respiratory was 20, blood pressure was 158/92 and he was on BiPAP at 60% with an FiO2 100%. Breathing was documented as short and labored, shallow and tachypneic. Vital signs showed leukocytosis with white count of 14.7, anemia that is microcytic in nature with a hemoglobin of 8.6 and appears consistent with his baseline on previous lab as well as thrombocytosis with a platelet count of 627,000. There was no left shift or abnormal differential. ABG showed a pH of 7.37 with a pCO2 of 45 and a pO2 of 98 on BiPAP at 60%. Chemistry panel was unremarkable. Lactic acid was mildly elevated 2.1. Magnesium was normal. I did obtain iron studies and they were consistent with iron deficiency. Ferritin level was low at 7. BNP was 8. Procalcitonin was 0.12. Chest x-ray was consistent with emphysematous changes and possible right upper lobe pneumonia. CTA of the chest was obtained and found to show no PE aortic dissection, extensive mucus plugging in the lower lobe bronchi bilaterally, severe panlobular emphysematous changes, extensive tubular bronchiectasis in the lower lobes bilaterally and subsegmental atelectasis in the lung bases bilaterally. EKG was overtly unremarkable for any ischemic changes. In the emergency department he was placed on BiPAP, given IV fluids, and IV antibiotics. Given the severity of his lung disease and his intermittent requirement of BiPAP with tripoding I will place him in the intensive care unit as he is full code to monitor him closely over the next 24 hours. Hopefully he does well and may be transferred to medical surgical floor at that time. [facility] Medical History Chronic hypoxic respiratory failure History and physical examination, immigration Exposure to COVID-19 virus Alcohol abuse Ulcer Smoker TIA (transient ischemic attack) History of bacterial pneumonia Depression Anxiety COPD (chronic obstructive pulmonary disease) History of tobacco use Home Medications ???Medication ???Instructions ???Recorded ???Last Taken ???Type sertraline 100 mg tablet 100 mg PO DAILY mood 11/19/14 10/19/22 10:00 History pantoprazole 40 mg tablet,delayed 40 mg PO BID stomache 03/20/21 10/19/22 10:00 History release trazodone 50 mg tablet 100 - 150 mg PO PRN sleep 03/20/21 03/18/21 History ipratropium 0.5 mg-albuterol 3 mg 3 ml inhalation Q4H PRN breathing 08/15/21 10/19/22 10:00 History (2.5 mg base)/3 mL nebulization soln albuterol sulfate 90 mcg/actuation 2 puff inhalation Q4H PRN PRN 02/10/22 10/19/22 10:00 Rx aerosol inhaler (Ventolin HFA) Wheezing ##1 ferrous sulfate 325 mg (65 mg 325 mg PO DAILY #90 tabs 11/14/22 Unknown Rx iron) tablet (Iron (ferrous sulfate)) fluticasone propionate 230 2 puff inhalation BID 03/13/24 Unknown History mcg-salmeterol 21 mcg/actuation HFA inhaler (Advair HFA) tiotropium bromide 2.5 2 puff inhalation DAILY 03/13/24 Unknown History mcg/actuation mist for inhalation (Spiriva Respimat) Allergy/AdvReac Type Severity Reaction Status Date / Time tramadol HCl (From [facility]) Allergy Swelling Verified 03/13/24 22:21 codeine AdvReac PT UNSURE Verified 03/13/24 22:21 OF REACTION Family History Other Cancer Diabetes Heart disease Hypertension Surgical History History of herniorrhaphy History of tonsillectomy History of chest tube placement History of tracheostomy Social History (Updated 03/14/24 @ 02:[address] Joie Lopez DO) household members: none Smoking Status: Former smoker how long ago did patient quit smoking: P (more content not included)... Normal [facility] Lactic Acidon 03-14-2024 Lactate [Moles/Vol] 1.6 mmol/L Normal 0.4-1.9 [facility] Comment on above: Performed By: #### L 100.0100, L500.2500 #### [facility] [address] [place], [address] Legionella Antigen Urineon 0 03-14-2024 LEGU Comments: Only Recommended for severe cases of pneumonia Only Recommended for severe cases of pneumonia URINE, CLEAN CATCH Legionella Antigen result interpretation: L pneumo Ag Ur Ql Negative Presumptive negative for Legionella pneumophila serogroup 1 antigen in urine, suggesting no recent or current infection. Legionella Ag, Urine Negative (See interpretation below) Normal [facility] Comment on above: Performed By: #### L 503.6620, L500.2500, L501.5200, L509.7000 #### [facility] [address] [place], [address] Magnesiumon 03-14-2024 Magnesium [Mass/Vol] 1.7 mg/dL Normal 1.6-2.6 [facility] Comment on above: Performed By: #### L 100.0100, L500.2500 #### [facility] [address] [place], [address] Phosphoruson 03-14-2024 Phosphate [Mass/Vol] 1.6 mg/dL Low 2.5-4.9 [facility] Comment on above: Performed By: #### L 100.0100, L500.2500 #### [facility] [address] [place], [address] RESPIRATORY PANEL MOLECULARo n 03-14-2024 RP PANEL ADENOVIRUS Not Detected INFLUENZA A Not Detected INFLUENZA A (SUBTYPE H1) Not Detected INFLUENZA A (SUBTYPE H3) Not Detected INFLUENZA B Not Detected HUMAN METAPHNEUMO Not Detected PARAINFLUENZA 1 Not Detected PARAINFLUENZA 2 Not Detected PARAINFLUENZA 3 Not Detected PARAINFLUENZA 4 Not Detected RHINOVIRUS Not Detected RSV A Not Detected RSV B Not Detected Normal [facility] Comment on above: Performed By: #### L 503.6620, L500.2500, L501.5200, L509.7000 #### [facility] [address] [place], [address] Retic Panelon 03-14-2024 IM RET FRACTION 20.30 High 3.00-15.90 [facility] Comment on above: Performed By: #### L 100.0100, L500.2500 #### [facility] [address] [place], [address] RET-HE 16.7 pg Low 30-35 [facility] Comment on above: Performed By: #### L 100.0100, L500.2500 #### [facility] [address] [place], [address] Retic Count 1.64 High 0.5-1.5 [facility] Comment on above: Performed By: #### L 100.0100, L500.2500 #### [facility] [address] [place], [address] Strep pneumoniae Antig(UR,CS F)on 03-14-2024 STPAG Comments: Only Recommended for severe cases of pneumonia Only Recommended for severe cases of pneumonia URINE, CLEAN CATCH URINE INTERPRETATION Strep pneumoniae Antig(UR,CSF) Strep pneumoniae Antig(UR,CSF) Negative Urine Presumptive negative for pneumococcal pneumonia, suggesting no current or recent pneumococcal infection. Infection due to S pneumoniae cannot be ruled out since the antigen present in the sample may be below the detection limit of the test. Strep pneumo Test Negative URINE (See interpretation below) Normal [facility] Comment on above: Performed By: #### L 503.6620, L500.2500, L501.5200, L509.7000 #### [facility] [address] [place], [address] Thyroid Stim Hormone (TSH)on 03-14-2024 TSH 0.416 uIU/mL Normal 0.358-3.740 [facility] Comment on above: Performed By: #### L 100.0100, L500.2500 #### [facility] [address] [place], [address] BNP,B-Type NATRIURETIC PEPTI Becky 03-13-2024 Natriuretic peptide B (Bld) [Mass/Vol] 8.0 pg/mL Normal 0-100 [facility] Comment on above: Performed By: #### L 100.0100, L500.2500 #### [facility] [address] [place], [address] Basic Metabolic Profile (BMP )on 03-13-2024 BUN/CRE 10.6 RATIO Normal 10-20 [facility] Comment on above: Performed By: #### L 100.0100, L500.2500 #### [facility] [address] [place], [address] CA,Total 9.4 mg/dL Normal 8.5-10.1 [facility] Comment on above: Performed By: #### L 100.0100, L500.2500 #### [facility] [address] [place], [address] Chloride [Moles/Vol] 105 mmol/L Normal 98-107 [facility] Comment on above: Performed By: #### L 100.0100, L500.2500 #### [facility] [address] [place], [address] CO2 [Moles/Vol] 28.0 mmol/L Normal 21.0-32.0 [facility] Comment on above: Performed By: #### L 100.0100, L500.2500 #### [facility] [address] [place], [address] Creatinine [Mass/Vol] 1.04 mg/dL Normal 0.70-1.30 [facility] Comment on above: Result Comment: The validity of the calculated GFR GFRAA in patients over 70 years has not been determined. Clinical correlation is essential. Performed By: #### L 100.0100, L500.2500 #### [facility] [address] [place], [address] ECRCL 84.82 ml/min Normal [facility] Comment on above: Performed By: #### L 100.0100, L500.2500 #### [facility] [address] [place], [address] EST GFR - AA 96 mL/min Normal >60 [facility] Comment on above: Result Comment: Afri can Citizen Of [place] GFR Calc Performed By: #### L 100.0100, L500.2500 #### [facility] [address] [place], [address] GAP 6 Normal 5-15 [facility] Comment on above: Performed By: #### L 100.0100, L500.2500 #### [facility] [address] [place], [address] GFR/1.73 sq M.predicted among non-blacks MDRD (S/P/Bld) [Vol rate/Area] 79 mL/min/{1.73_m2} Normal >60 [facility] Comment on above: Result Comment: Non- GFR Calc Performed By: #### L 100.0100, L500.2500 #### [facility] [address] [place], [address] Glucose [Mass/Vol] 144 mg/dL High 74-106 [facility] Comment on above: Result Comment: Fast ing Glucose result greater than or equal to 126 mg/dL suggests DIABETES MELLITUS per A.D.A. criteria. Performed By: #### L 100.0100, L500.2500 #### [facility] [address] [place], [address] Potassium [Moles/Vol] 4.5 mmol/L Normal 3.5-5.1 [facility] Comment on above: Performed By: #### L 100.0100, L500.2500 #### [facility] [address] [place], [address] Sodium [Moles/Vol] 139 mmol/L Normal 136-145 [facility] Comment on above: Performed By: #### L 100.0100, L500.2500 #### [facility] [address] [place], [address] Urea nitrogen [Mass/Vol] 11 mg/dL Normal 7-18 [facility] Comment on above: Performed By: #### L 100.0100, L500.2500 #### [facility] [address] [place], [address] Blood Gases by [facility] 024 COY TEST Positive Normal [facility] Comment on above: Performed By: #### L 100.0100, L500.2500 #### [facility] [address] [place], [address] Base excess Calc (Bld) [Moles/Vol] 1 mmol/L Normal -2 to +2 [facility] Comment on above: Performed By: #### L 100.0100, L500.2500 #### [facility] [address] [place], [address] Blood Gas Type ART Normal [facility] Comment on above: Performed By: #### L 100.0100, L500.2500 #### [facility] [address] [place], [address] CO2 [Moles/Vol] 28 mmol/L Normal [facility] Comment on above: Performed By: #### L 100.0100, L500.2500 #### [facility] [address] [place], [address] Comment Normal [facility] Comment on above: Result Comment: AVAP S 450vt 12rr +8 maxP=24 minP=16 40% Performed By: #### L 100.0100, L500.2500 #### [facility] [address] [place], [address] FI02 40.0 Normal [facility] Comment on above: Performed By: #### L 100.0100, L500.2500 #### [facility] [address] [place], [address] HCO3 (Bld) [Moles/Vol] 26.2 mmol/L High 22-26 [facility] Comment on above: Performed By: #### L 100.0100, L500.2500 #### [facility] [address] [place], [address] Mode Not entered Normal [facility] Comment on above: Performed By: #### L 100.0100, L500.2500 #### [facility] [address] [place], [address] O2 Delivery Dev BiPAP Normal [facility] Comment on above: Performed By: #### L 100.0100, L500.2500 #### [facility] [address] [place], [address] pCO2 45.0 mmHg Normal 35-45 [facility] Comment on above: Performed By: #### L 100.0100, L500.2500 #### [facility] [address] [place], [address] pH (Bld) 7.37 [pH] Normal 7.35-7.45 [facility] Comment on above: Performed By: #### L 100.0100, L500.2500 #### [facility] [address] [place], [address] PO2 98 mmHG Normal 75-100 [facility] Comment on above: Performed By: #### L 100.0100, L500.2500 #### [facility] [address] [place], [address] RR 12 Normal [facility] Comment on above: Performed By: #### L 100.0100, L500.2500 #### [facility] [address] [place], [address] SITE R Radial Normal [facility] Comment on above: Performed By: #### L 100.0100, L500.2500 #### [facility] [address] [place], [address] SO2 97 Normal 95-99 [facility] Comment on above: Performed By: #### L 100.0100, L500.2500 #### [facility] [address] [place], [address] Vt 450.0 mL Normal [facility] Comment on above: Performed By: #### L 100.0100, L500.2500 #### [facility] [address] [place], [address] CBC W/Diff, Automatedon 12-3 Absolute Lymph 3.65 X10 3/uL Normal 0.83-4.51 [facility] Comment on above: Performed By: #### L 100.0100, L500.2500 #### [facility] [address] [place], [address] Absolute Neut 9.5 X10 3/uL High 2.0-7.7 [facility] Comment on above: Performed By: #### L 100.0100, L500.2500 #### [facility] [address] [place], [address] Basophils/100 WBC (Bld) 0.4 % Normal 0-1 [facility] Comment on above: Performed By: #### L 100.0100, L500.2500 #### [facility] [address] [place], [address] Eosinophils/100 WBC (Bld) 1.3 % Normal 0-5 [facility] Comment on above: Performed By: #### L 100.0100, L500.2500 #### [facility] [address] [place], [address] Erythrocyte distribution width (RBC) [Ratio] 17.2 % High 11.6-14.6 [facility] Comment on above: Performed By: #### L 100.0100, L500.2500 #### [facility] [address] [place], [address] Hematocrit (Bld) [Volume fraction] 31.1 % Low 40-54 [facility] Comment on above: Performed By: #### L 100.0100, L500.2500 #### [facility] [address] [place], [address] Hemoglobin (Bld) [Mass/Vol] 8.6 g/dL Low 13.0-16.5 [facility] Comment on above: Performed By: #### L 100.0100, L500.2500 #### [facility] [address] [place], [address] IG% 0.700 Normal 0.0-0.9 [facility] Comment on above: Result Comment: IG% - Immature Granulocytes (promyelocytes, myelocytes and metamyelocytes) > 1% indicates that a LEFT SHIFT is Present. Performed By: #### L 100.0100, L500.2500 #### [facility] [address] [place], [address] Lymphocytes/100 WBC (Bld) 24.8 % Normal 19-41 [facility] Comment on above: Performed By: #### L 100.0100, L500.2500 #### [facility] [address] [place], [address] MCH (RBC) [Entitic mass] 19.9 pg Low 27.0-32.0 [facility] Comment on above: Performed By: #### L 100.0100, L500.2500 #### [facility] [address] [place], [address] MCHC (RBC) [Mass/Vol] 27.7 g/dL Low 32-36 [facility] Comment on above: Performed By: #### L 100.0100, L500.2500 #### [facility] [address] [place], [address] MCV (RBC) [Entitic vol] 72.0 fL Low 80-94 [facility] Comment on above: Performed By: #### L 100.0100, L500.2500 #### [facility] [address] [place], [address] Monocytes/100 WBC (Bld) 8.6 % Normal 0-10 [facility] Comment on above: Performed By: #### L 100.0100, L500.2500 #### [facility] [address] [place], [address] Neutrophils/100 WBC (Bld) 64.2 % Normal 47-70 [facility] Comment on above: Performed By: #### L 100.0100, L500.2500 #### [facility] [address] [place], [address] Nucleated RBC (Bld) [#/Vol] 0 10*3/uL Normal 0-5 [facility] Comment on above: Performed By: #### L 100.0100, L500.2500 #### [facility] [address] [place], [address] Platelet mean volume (Bld) [Entitic vol] 9.5 fL Normal 6.2-12.0 [facility] Comment on above: Performed By: #### L 100.0100, L500.2500 #### [facility] [address] [place], [address] Platelets (Bld) [#/Vol] 627 10*3/uL High 150-450 [facility] Comment on above: Performed By: #### L 100.0100, L500.2500 #### [facility] [address] [place], [address] RBC (Bld) [#/Vol] 4.32 10*6/uL Low 4.6-6.2 [facility] Comment on above: Performed By: #### L 100.0100, L500.2500 #### [facility] [address] [place], [address] RDW SD 44.5 fl High 35.1-43.9 [facility] Comment on above: Performed By: #### L 100.0100, L500.2500 #### [facility] [address] [place], [address] WBC (Bld) [#/Vol] 14.7 10*3/uL High 4.4-11.0 [facility] Comment on above: Performed By: #### L 100.0100, L500.2500 #### [facility] [address] [place], [address] CTA Chest W/WO Contraston CTA Chest W/WO Contrast [facility] [address] [place] [address] CTA Chest W/WO Contrast MR#: [id number] Acct: [id number] Name: LUIS STEELE II Rep #: [id number] : 1970 M 53 From: Leyda Durham PCP: Dr. Antwan Buchanan, DO Status: [facility] ER Study: CTA Chest W/WO Contrast Date of Exam: 03/13/24 Exam# [id number] Ordering Dr: Anselmo Bustos DO [id number] EXAM: CT ANGIOGRAPHY CHEST WITHOUT AND WITH INTRAVENOUS CONTRAST CLINICAL INDICATION: hypoxia TECHNIQUE: Helically acquired angiography images were obtained of the chest without and with intravenous contrast. This CT exam was performed using one or more of the following dose reduction techniques: automated exposure control, adjustment of the mA and/or kV according to patient size, and/or use of iterative reconstruction technique. MIP reconstructed images were created and reviewed. CONTRAST: 100 cc of Isovue-370 IV. RADIATION DOSE: CTDIvol = 11.76 mGy, DLP = 399.05 mGy-cm COMPARISON: 11/12/2022. FINDINGS: PULMONARY ARTERIES: Unremarkable. Normal in caliber. No evidence of pulmonary embolism. AORTA: Unremarkable. Normal in caliber. No evidence of dissection. GREAT VESSELS OF AORTIC ARCH: Unremarkable. Normal in caliber. No evidence of dissection. LUNGS AND PLEURAL SPACES: Severe panlobular emphysema. Extensive mucous plugging in the lower lobe bronchi bilaterally. Extensive tubular bronchiectasis in the lower lobes bilaterally. Subsegmental atelectasis in the lung bases bilaterally. No mass. No pleural effusion or thickening. No pneumothorax. HEART: Unremarkable. Heart size is normal. No pericardial effusion. No significant coronary artery calcifications. MEDIASTINUM: Unremarkable. No mediastinal or hilar adenopathy. Esophagus is unremarkable. No hiatal hernia. THYROID: Unremarkable. No thyroid lesions. BONES/JOINTS: Unremarkable. No suspicious lytic or blastic abnormality. CT/CTA Chest W/WO Contrast IMPRESSION: 1. No pulmonary embolism or aortic dissection. 2. Extensive mucous plugging in the lower lobe bronchi bilaterally. 3. Severe panlobular emphysema. 4. Extensive tubular bronchiectasis in the lower lobes bilaterally. 5. Subsegmental atelectasis in the lung bases bilaterally. Electronically Signed: Leyda Son MD at 1:19 EST , CC: Dr. Antwan Buchanan DO; Anselmo Bustos DO Booster Pump Operator: Signed Normal [facility] Chest 1 View (Portable)on Chest 1 View (Portable) [facility] [address] [place], [place] [address] Chest 1 View (Portable) MR#: [id number] Acct: [id number] Name: LUIS STEELE II Rep #: [id number] : 1970 M 53 From: Deshawn Mcintosh MD PCP: Dr. Antwan Buchanan DO Status: REG ER Study: Chest 1 View (Portable) Date of Exam: 03/13/24 Exam# [id number] Ordering Dr: Anselmo Bustos DO [id number] STUDY: X-RAY CHEST REASON FOR EXAM: Male, 53 years old. dyspnea TECHNIQUE: Single AP portable view of the chest. COMPARISON: 10/19/2022 FINDINGS: There is hyperinflation of the lungs consistent with chronic obstructive lung disease (COPD). Small alveolar opacity in the mid right lung worrisome for pneumonia. There is no demonstrated pleural abnormality. Normal size heart. Normal mediastinum and catherine. Normal visualized pulmonary arteries. Normal visualized aortic arch and descending thoracic aorta. Normal visualized thoracic spine. Normal visualized ribs, clavicles, and shoulders. There is no demonstrated abnormality of the visualized soft tissue structures of the upper abdomen. RAD/Chest 1 View (Portable) IMPRESSION: Emphysema with possible right upper lobe pneumonia. CT may be useful. Electronically Signed: Deshawn Mcintosh MD at 23:10 EST , CC: Dr. Antwan Buchanan DO; Anselmo Bustos DO Booster Pump Operator: Signed Normal [facility] Ferritinon 03-13-2024 Ferritin [Mass/Vol] 7 ng/mL Low 26-388 [facility] Comment on above: Performed By: #### L 503.6620, L500.2500, L501.5200, L509.7000 #### [facility] [address] [place], [address] Iron+Iron Binding Capacityon 03-13-2024 Iron [Mass/Vol] 15 ug/dL Low 65-175 [facility] Comment on above: Performed By: #### L 503.6620, L500.2500, L501.5200, L509.7000 #### [facility] [address] [place], [address] IRON SATURATION 3.1 Low 15.0-55.0 [facility] Comment on above: Performed By: #### L 503.6620, L500.2500, L501.5200, L509.7000 #### [facility] [address] [place], [address] TIBC 479 ug/dL High 250-450 [facility] Comment on above: Performed By: #### L 503.6620, L500.2500, L501.5200, L509.7000 #### [facility] [address] [place], [address] Lactic Acidon 03-13-2024 Lactate [Moles/Vol] 2.1 mmol/L Invalid Interpretation Code 0.4-1.9 [facility] Comment on above: Order Comment: Y Result Comment: Crit ical Result(s) Called at: 23:07:06 03/13/2024 by: ARMANDO VELEZ TO KARYNA SERRA. Results read back by same. Performed By: #### L 100.0100, L500.2500 #### [facility] [address] [place], [address] M100.678on 03-13-2024 M100.678 Pending SARS-CoV-2 (COVID 19) Negative INFLUENZA A Negative INFLUENZA B Negative RSV PCR Negative Normal [facility] Comment on above: Performed By: #### L 503.6620, L500.2500, L501.5200, L509.7000 #### [facility] [address] [place], [address] Magnesiumon 03-13-2024 Magnesium [Mass/Vol] 1.9 mg/dL Normal 1.6-2.6 [facility] Comment on above: Performed By: #### L 100.0100, L500.2500 #### [facility] [address] [place], [address] Procalcitoninon 03-13-2024 Procalcitonin 0.12 ng/mL High 0.00-0.09 [facility] Comment on above: Result Comment: A procalcitonin (PCT) level above 2.0 ng/mL on the first day of ICU admission is associated with a high risk for progression to severe sepsis and/or septic shock. A PCT level below 0.5 ng/mL on the first day of ICU admission is associated with a low risk for progression to severe and/or septic shock. Note: Concentrations <0.5 ng/mL do not exclude an infection on account of localized infections (without systemic signs) which can be associated with such low concentrations, or a systemic infection in its initial stages (<6 hours). Furthermore, increased procalcitonin can occur without infection. PCT concentrations between 0.5 and 2.0 ng/mL should be interpreted taking into account the patient's history. It is recommended to retest PCT within 6-24 hours if any concentrations <2 ng/mL are obtained. Performed By: #### L 100.0100, L500.2500 #### [facility] [address] [place], [address] CT Chest [facility] 08-10 IMPRESSION: Severe emphysematous change with bullae noted. Diffuse airways thickening, areas of basal predominant bronchiectasis and mucous plugging Waxing and waning patchy opacities within the mid to basal lungs, RIGHT greater than LEFT, on balance slightly worsened. These findings are likely infectious or inflammatory, could correlate with clinical presentation, aspiration is a consideration. Diffuse air trapping with some regional variation, most pronounced within LEFT lower lobe Booster Pump Operator: MATEO Transcribe Date/Time: Aug 11 2023 3:30P Dictated by : LEYDA ROA MD This examination was interpreted and the report reviewed and electronically signed by: LEYDA ROA MD on Aug 11 2023 3:47PM [facility] DIVISION OF RADIOLOGY * * *Final Report* * * DATE OF EXAM: Aug 11 2023 8:39AM [facility] [place] 0541 - CT CHEST WO IVCON / PROCEDURE REASON: multiple diagnoses * * * * Physician Interpretation * * * * EXAMINATION: CHEST CT WITHOUT CONTRAST CLINICAL HISTORY: COPD, patient under consideration for lung transplant Technique: Spiral CT acquisition of the chest from the thoracic inlet to the upper abdomen without contrast. MQ: CTCWO_6 CT Radiation dose: Integrated Dose-length product (DLP) for this visit = 268 mGy*cm CT Dose Reduction Employed: Automated exposure control(AEC) and iterative recon Comparison: 06/10/2021 RESULT: Limitations: None. Lines, tubes, and devices: None. Lung parenchyma and airways: Postsurgical change involving the right lung. Severe emphysematous change with some bullae noted. Mild architectural distortion present as on prior, likewise stable are areas of basal predominant bronchiectasis with areas of mucus impaction. In the interval, some waxing and waning patchy opacities are noted, for example increased within middle lobe on image 173 and in RIGHT lower lobe image 195, some posterior subpleural opacities are improved in the interval with some residual changes at basal level. Real-time/free breathing images do not demonstrate excessive central airways collapse, borderline significant changes of bilateral mainstem bronchi though through-plane motion may accentuate this appearance, there is diffuse air trapping which appears most pronounced in LEFT lower lobe, with relative sparing of the apices. Pleural space: No pleural effusion. No pleural thickening. Lower neck, lymph nodes, and mediastinum: The imaged thyroid gland is normal. No lymphadenopathy in the supraclavicular, axillary, mediastinal, or hilar regions. Heart, pericardium, and thoracic vessels: The thoracic aorta and main pulmonary artery are normal in caliber. The cardiac chambers are normal in size. No coronary artery atherosclerotic calcifications are noted, although the study is not optimized for coronary assessment. No pericardial effusion or thickening. Bones and soft tissues: No destructive bone lesion. Chest wall is unremarkable. Upper abdomen: No abnormality in the imaged upper abdomen. Bull Chain Operator (topogram) images: No additional findings. . DIVISION OF RADIOLOGY Provider, [facility] - 08/11/2023 * * *Final Report* * * DATE OF EXAM: Aug 11 2023 8:39AM [facility] [place] 0541 - CT CHEST WO IVCON / PROCEDURE REASON: multiple diagnoses * * * * Physician Interpretation * * * * EXAMINATION: CHEST CT WITHOUT CONTRAST CLINICAL HISTORY: COPD, patient under consideration for lung transplant Technique: Spiral CT acquisition of the chest from the thoracic inlet to the upper abdomen without contrast. MQ: CTCWO_6 CT Radiation dose: Integrated Dose-length product (DLP) for this visit = 268 mGy*cm CT Dose Reduction Employed: Automated exposure control(AEC) and iterative recon Comparison: 06/10/2021 RESULT: Limitations: None. Lines, tubes, and devices: None. Lung parenchyma and airways: Postsurgical change involving the right lung. Severe emphysematous change with some bullae noted. Mild architectural distortion present as on prior, likewise stable are areas of basal predominant bronchiectasis with areas of mucus impaction. In the interval, some waxing and waning patchy opacities are noted, for example increased within middle lobe on image 173 and in RIGHT lower lobe image 195, some posterior subpleural opacities are improved in the interval with some residual changes at basal level. Real-time/free breathing images do not demonstrate excessive central airways collapse, borderline significant changes of bilateral mainstem bronchi though through-plane motion may accentuate this appearance, there is diffuse air trapping which appears most pronounced in LEFT lower lobe, with relative sparing of the apices. Pleural space: No pleural effusion. No pleural thickening. Lower neck, lymph nodes, and mediastinum: The imaged thyroid gland is normal. No lymphadenopathy in the supraclavicular, axillary, mediastinal, or hilar regions. Heart, pericardium, and thoracic vessels: The thoracic aorta and main pulmonary artery are normal in caliber. The cardiac chambers are normal in size. No coronary artery atherosclerotic calcifications are noted, although the study is not optimized for coronary assessment. No pericardial effusion or thickening. Bones and soft tissues: No destructive bone lesion. Chest wall is unremarkable. Upper abdomen: No abnormality in the imaged upper abdomen. Bull Chain Operator (topogram) images: No additional findings. . IMPRESSION IMPRESSION: Severe emphysematous change with bullae noted. Diffuse airways thickening, areas of basal predominant bronchiectasis and mucous plugging Waxing and waning patchy opacities within the mid to basal lungs, RIGHT greater than LEFT, on balance slightly worsened. These findings are likely infectious or inflammatory, could correlate with clinical presentation, aspiration is a consideration. 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 Transcribe Date/Time: Aug 11 2023 3:30P Dictated by : LEYDA ROA MD This examination was interpreted and the report reviewed and electronically signed by: LEYDA ROA MD on Aug 11 2023 3:47PM EST [facility] Radiology Study observation (narrative) [facility] CT Chest WO contrastOrdered By: [facility] Provider on 08-11-2023 [facility] CBC W Auto Differential pane l (Bld)on 02-18-2023 Basophils (Bld) [#/Vol] 0.04 10*3/uL <0.11 k/uL [facility] Basophils/100 WBC (Bld) 0.5 % [facility] Differential cell count method Nom (Bld) Auto [facility] Eosinophils (Bld) [#/Vol] 0.88 10*3/uL High <0.46 k/uL [facility] Eosinophils/100 WBC (Bld) 11.0 % [facility] Erythrocyte distribution width (RBC) [Ratio] 14.9 % 11.5 - 15.0 % [facility] Hematocrit (Bld) [Volume fraction] 40.1 % 39.0 - 51.0 % [facility] Hemoglobin (Bld) [Mass/Vol] 12.0 g/dL Low 13.0 - 17.0 g/dL [facility] Immature granulocytes (Bld) [#/Vol] 0.03 10*3/uL <0.10 k/uL [facility] Immature granulocytes/100 WBC (Bld) 0.4 % [facility] Lymphocytes (Bld) [#/Vol] 2.06 10*3/uL 1.00 - 4.00 k/uL [facility] Lymphocytes/100 WBC (Bld) 25.7 % [facility] MCH (RBC) [Entitic mass] 26.0 pg 26.0 - 34.0 pg [facility] MCHC (RBC) [Mass/Vol] 29.9 g/dL Low 30.5 - 36.0 g/dL [facility] MCV (RBC) [Entitic vol] 86.8 fL 80.0 - 100.0 fL [facility] Monocytes (Bld) [#/Vol] 0.99 10*3/uL High <0.87 k/uL [facility] Monocytes/100 WBC (Bld) 12.3 % [facility] Neutrophils (Bld) [#/Vol] 4.03 10*3/uL 1.45 - 7.50 k/uL [facility] Neutrophils/100 WBC (Bld) 50.1 % [facility] Nucleated RBC (Bld) [#/Vol] <0.01 k/uL [facility] Nucleated RBC/100 WBC (Bld) [Ratio] 0.0 /100 WBC [facility] Platelet mean volume (Bld) [Entitic vol] 9.8 fL 9.0 - 12.7 fL [facility] Platelets (Bld) [#/Vol] 396 10*3/uL 150 - 400 k/uL [facility] RBC (Bld) [#/Vol] 4.62 10*6/uL 4.20 - 6.0 0 m/uL [facility] WBC (Bld) [#/Vol] 8.03 10*3/uL 3.70 - 11. 00 k/uL [facility] Comprehensive metabolic 2000 panelon 02-18-2023 Albumin [Mass/Vol] 4.3 g/dL 3.9 - 4.9 g/dL [facility] ALP [Catalytic activity/Vol] 76 U/L 38 - 113 U/L [facility] ALT [Catalytic activity/Vol] 20 U/L 10 - 54 U/L [facility] Anion gap [Moles/Vol] 11 mmol/L 9 - 18 mmol/L [facility] AST [Catalytic activity/Vol] 12 U/L Low 14 - 40 U/L [facility] Bilirubin [Mass/Vol] 0.2 mg/dL 0.2 - 1 .3 mg/dL [facility] Calcium [Mass/Vol] 9.4 mg/dL 8.5 - 10. 2 mg/dL [facility] Chloride [Moles/Vol] 102 mmol/L 97 - 10 5 mmol/L [facility] CO2 [Moles/Vol] 28 mmol/L 22 - 30 mmol/L [facility] Creatinine [Mass/Vol] 1.11 mg/dL 0.73 - 1.22 mg/dL [facility] Estimated Glomerular Filtration Rate 80 mL/min/1.73m >=60 mL/min/1.73m [facility] Glucose [Mass/Vol] 92 mg/dL 74 - 99 mg/dL [facility] Potassium [Moles/Vol] 4.5 mmol/L 3.7 - 5.1 mmol/L [facility] Protein [Mass/Vol] 7.4 g/dL 6.3 - 8.0 g/dL [facility] Sodium [Moles/Vol] 141 mmol/L 136 - 144 mmol/L [facility] Urea nitrogen [Mass/Vol] 14 mg/dL 9 - 24 mg/dL [facility] FERRITIN BLDon 02-18-2023 Ferritin [Mass/Vol] 43.6 ng/mL 30.3 - 5 65.7 ng/mL [facility] Iron and Iron binding capaci ty panelon 02-18-2023 Iron [Mass/Vol] 20 ug/dL Low 41 - 186 ug/dL [facility] Iron binding capacity [Mass/Vol] 281 ug/dL 232 - 386 ug/dL [facility] Iron/TIBC [Molar ratio] 7.1 % Low 15.0 - 57.0 % [facility] TSH BLDon 02-18-2023 TSH Qn 0.993 m[IU]/L 0.270 - 4.200 mIU/L [facility] VITAMIN B12 BLOODon 02-19-20 Cobalamin (Vitamin B12) [Mass/Vol] 521 pg/mL 232 - 1,245 pg/mL [facility] CARECOORDon 02-15-2023 CARECOORD Normal [facility] [id number] 02-08-2023 [id number] Normal [facility] BASIC METABOLIC PANELon 01-13 Anion gap [Moles/Vol] 8 mmol/L Normal - [facility] Comment on above: Performed By: #### L AB113, [id number], LAB15 ####Statement Clerks Manager: FINN BONNER ([phone])[facility] ([place] [address] [place] Calcium [Mass/Vol] 9.2 mg/dL Normal 8.4-10.4 [facility] Comment on above: Performed By: #### L AB113, [id number], LAB15 ####Statement Clerks Manager: FINN BONNER ([phone])[facility] ([facility] [place] [address] Chloride [Moles/Vol] 100 mmol/L Normal 98-107 [facility] Comment on above: Performed By: #### L AB113, [id number], LAB15 ####Statement Clerks Manager: FINN BONNER ([phone])[facility] ([facility])[address] [place] [address] CO2 [Moles/Vol] 28 mmol/L Normal 22-30 [facility] Comment on above: Performed By: #### Светлана AB113, [id number], LAB15 ####Statement Clerks Manager: FINN BONNER ([phone])[facility] ([facility])[address] [place] [address] Creatinine [Mass/Vol] 0.68 mg/dL Normal 0.66-1.25 [facility] Comment on above: Performed By: #### Светлана AB113, [id number], LAB15 ####Statement Clerks Manager: FINN BONNER ([phone])[facility] ([facility])[address] [place] [address] GLOMERULAR FILTRATION RATE ML/MIN/1.73 SQ M.PREDICTED >90.0 Normal >60.0 [facility] Comment on above: Result Comment: Calc ulation based on the Chronic Kidney Disease Epidemiology Collaboration (CKD-EPI) equation refit without adjustment for race Performed By: #### L AB113, [id number], LAB15 ####Statement Clerks Manager: FINN BONNER ([phone])[facility] ([facility])[address] [place] [address] Glucose [Mass/Vol] 107 mg/dL High 70-100 [facility] Comment on above: Performed By: #### L AB113, [id number], LAB15 ####Statement Clerks Manager: FINN [phone])[facility] ([facility])[address] [place] [address] Potassium [Moles/Vol] 3.3 mmol/L Low 3.5-5.1 [facility] Comment on above: Performed By: #### L AB113, [id number], LAB15 ####Statement Clerks Manager: FINN BONNER ([phone])[facility] ([facility])[address] [place] [address] Sodium [Moles/Vol] 137 mmol/L Normal 135-145 [facility] Comment on above: Performed By: #### L AB113, AST709, LAB15 ####Statement Clerks Manager: FINN BONNER ([phone])[facility] ([facility])[address] [place] [address] Urea nitrogen [Mass/Vol] 7 mg/dL Low 9-20 [facility] Comment on above: Performed By: #### L AB113, [id number], LAB15 ####Statement Clerks Manager: FINN BONNER ([phone])[facility] ([facility] [place] [address] Basic metabolic 1998 panelon 02-08-2023 Anion gap [Moles/Vol] 8 mmol/L 3 - 13 mmol/L [facility] Calcium [Mass/Vol] 9.2 mg/dL 8.4 - 10. 4 mg/dL [facility] Chloride [Moles/Vol] 100 mmol/L 98 - 10 7 mmol/L [facility] CO2 [Moles/Vol] 28 mmol/L 22 - 30 mmol/L [facility] Creatinine [Mass/Vol] 0.68 mg/dL 0.66 - 1.25 mg/dL [facility] GFR/1.73 sq M.predicted MDRD (S/P/Bld) [Vol rate/Area] - PINF [facility] Glucose [Mass/Vol] 107 mg/dL High 70 - 100 mg/dL [facility] Interpretation and review of laboratory results Abnormal [facility] Potassium [Moles/Vol] 3.3 mmol/L Low 3.5 - 5.1 mmol/L [facility] Sodium [Moles/Vol] 137 mmol/L 135 - 145 mmol/L [facility] Urea nitrogen [Mass/Vol] 7 mg/dL Low 9 - 20 mg/dL [facility] CALCIUM, IONIZEDon CALCIUM IONIZED 4.60 mg/dL Normal 4.30-5.20 [facility] Comment on above: Performed By: #### L AB54 ####Statement Clerks Manager: FINN BONNER ([phone])[facility] ([facility])[address] [place] [address] PH, IONIZED CALCIUM 7.43 Normal 7.31-7.46 [facility] Comment on above: Performed By: #### L AB54 ####Statement Clerks Manager: FINN BONNER ([phone])[facility] ([facility])[address] [place] [address] CARECOORDon 02-08-2023 CARECOORD Normal [facility] CBC W Auto Differential pane l (Bld)on 02-08-2023 Erythrocyte distribution width (RBC) [Ratio] 16.4 % High 11.5 - 14.5 % [facility] Hematocrit (Bld) [Volume fraction] 33.1 % Low 40.0 - 52.0 % [facility] Hemoglobin (Bld) [Mass/Vol] 10.2 g/dL Low 13.0 - 18.0 g/dL [facility] Interpretation and review of laboratory results Abnormal [facility] MCH (RBC) [Entitic mass] 25.3 pg Low 26.0 - 34.0 pg [facility] MCHC (RBC) [Mass/Vol] 30.9 % Low 32.0 - 36.0 % [facility] MCV (RBC) [Entitic vol] 82.0 fL 80.0 - 98.0 fL [facility] Nucleated RBC/100 WBC (Bld) [Ratio] 0.0 % [facility] Platelet mean volume (Bld) [Entitic vol] 7.6 fL 7.4 - 12.4 fL [facility] Platelets (Bld) [#/Vol] 378 10*3/uL 140 - 440 10*3/uL [facility] RBC (Bld) [#/Vol] 4.03 10*6/uL Low 4.40 - 5.9 0 10*6/uL [facility] WBC (Bld) [#/Vol] 9.6 10*3/uL 3.6 - 10.7 10*3/uL [facility] CBC WITH AUTO DIFFERENTIALon 02-08-2023 Erythrocyte distribution width (RBC) [Ratio] 16.4 % High 11.5-14.5 [facility] Comment on above: Performed By: #### L [id number], [id number] ####Statement Clerks Manager: FINN BONNER ([phone])[facility])[address] [place] [address] ERYTHROCYTE MEAN CORPUSCULAR HEMOGLOBIN CONCENTRATION (G/DL) BY AUTOMATED 30.9 % Low 32.0-36.0 [facility] Comment on above: Performed By: #### L [id number], [id number] ####Statement Clerks Manager: FINN BONNER ([phone])[facility])[address] [place] [address] Hematocrit (Bld) [Volume fraction] 33.1 % Low 40.0-52.0 [facility] Comment on above: Performed By: #### Светлана [id number], [id number] ####Statement Clerks Manager: FINN BONNER ([phone])[facility])[address] [place] [address] Hemoglobin (Bld) [Mass/Vol] 10.2 g/dL Low 13.0-18.0 [facility] Comment on above: Performed By: #### L [id number], [id number] ####Statement Clerks Manager: FINN BONNER ([phone])[facility])[address] [place] [address] MCH (RBC) [Entitic mass] 25.3 pg Low 26.0-34.0 [facility] Comment on above: Performed By: #### L [id number], [id number] ####Statement Clerks Manager: FINN BONNER ([phone])[facility])[address] [place] [address] MCV (RBC) [Entitic vol] 82.0 fL Normal 80.0-98.0 [facility] Comment on above: Performed By: #### L [id number], [id number] ####Statement Clerks Manager: FINN BONNER ([phone])[facility])[address] [place] [address] NRBC (PER 100 WBCS) BY AUTOMATED COUNT 0.0 /100 WBCs Normal 0.0-2.0 [facility] Comment on above: Performed By: #### L [id number], [id number] ####Statement Clerks Manager: FINN BONNER ([phone])[facility])[address] [place] [address] Platelet mean volume (Bld) [Entitic vol] 7.6 fL Normal 7.4-12.4 [facility] Comment on above: Performed By: #### L [id number], [id number] ####Statement Clerks Manager: FINN BONNER ([phone])[facility])[address] [place] [address] Platelets (Bld) [#/Vol] 378 10*3/uL Normal 140-440 [facility] Comment on above: Performed By: #### L [id number], [id number] ####Statement Clerks Manager: FINN BONNER ([phone])[facility])[address] [place] [address] RBC (Bld) [#/Vol] 4.03 10*6/uL Low 4.40-5.90 [facility] Comment on above: Performed By: #### L [id number], [id number] ####Statement Clerks Manager: FINN BONNER ([phone])[facility])[address] [place] [address] WBC (Bld) [#/Vol] 9.6 10*3/uL Normal 3.6-10.7 [facility] Comment on above: Performed By: #### L [id number], [id number] ####Statement Clerks Manager: FINN BONNER ([phone])[facility])[address] [place] [address] Calcium.ionized [Moles/Vol]o n 02-08-2023 Calcium.ionized (Bld) [Moles/Vol] 4.60 mg/dL 4.30 - 5.20 mg/dL [facility] Interpretation and review of laboratory results Normal [facility] PH, IONIZED CALCIUM 7.43 7.31 - 7.46 [facility] Consulton 02-08-2023 Consult Normal [facility] ECG 12-LEADon 02-08-2023 ECG 12-LEAD IMPRESSION: Sinus rhythm Low voltage, precordial leads Nonspecific T abnormalities, diffuse leads Electronically Signed On 02-08-2023 14:18:53 EST by Edgar Powell Normal [facility] Laboratory - Chemistry and C hemistry - challengeon 02-08-2023 Magnesium [Mass/Vol] 1.8 mg/dL 1.6 - 2 .3 mg/dL [facility] MAGNESIUMon 02-08-2023 Magnesium [Mass/Vol] 1.8 mg/dL Normal 1.6-2.3 [facility] Comment on above: Performed By: #### L AB113, [id number], LAB15 ####Statement Clerks Manager: FINN BONNER ([phone])[address] MANUAL DIFFERENTIALon 2022 BASOPHILS (10*3/UL) IN BLOOD BY MANUAL COUNT 0.1 10*3/uL Normal 0.0-0.2 [facility] Comment on above: Performed By: #### L [id number], [id number] ####Statement Clerks Manager: FINN BONNER ([phone])[address] BASOPHILS TOTAL PER COUNTED LEUKOCYTES BY MANUAL COUNT 1 Normal [facility] Comment on above: Performed By: #### L [id number], [id number] ####Statement Clerks Manager: FINN BONNER ([phone])[facility])[address] [place] [address] [place] BASOPHILS/100 LEUKOCYTES IN BLOOD BY MANUAL COUNT 1 % Normal 0-2 [facility] Comment on above: Performed By: #### L [id number], [id number] ####Statement Clerks Manager: FINN BONNER ([phone])[facility])[address] [place] [address] CELLS COUNTED TOTAL (#) IN BLOOD 100 Normal [facility] Comment on above: Performed By: #### L [id number], [id number] ####Statement Clerks Manager: FINN BONNER ([phone])[facility])[address] [place] [address] DIFFERENTIAL METHOD Automated differenti al reported after manual slide review Normal [facility] Comment on above: Performed By: #### L [id number], [id number] ####Statement Clerks Manager: FINN BONNER ([phone])[facility])[address] [place] [address] [place] EOSINOPHILS (10*3/UL) IN BLOOD BY MANUAL COUNT 0.7 10*3/uL High 0.0-0.5 [facility] Comment on above: Performed By: #### L [id number], [id number] ####Statement Clerks Manager: FINN BONNER ([phone])[facility])[address] [place] [address] EOSINOPHILS TOTAL PER COUNTED LEUKOCYTES BY MANUAL COUNT 7 High 0-1 [facility] Comment on above: Performed By: #### L [id number], [id number] ####Statement Clerks Manager: FINN BONNER ([phone])[facility])[address] [place] [address] [place] EOSINOPHILS/100 LEUKOCYTES IN BLOOD BY MANUAL COUNT 7 % High 1-6 [facility] Comment on above: Performed By: #### L [id number], [id number] ####Statement Clerks Manager: FINN BONNER ([phone])[facility])[address] [place] [address] [place] LEUKOCYTES (10*3/UL) NUCLEATED ERYTHROCYTE ADJUST 9.6 10*3/uL Normal 3.6-10.7 [facility] Comment on above: Performed By: #### L [id number], [id number] ####Statement Clerks Manager: FINN BONNER ([phone])[facility])[address] [place] [address] [place] LYMPHOCYTES (10*3/UL) IN BLOOD BY MANUAL COUNT 1.5 10*3/uL Normal 1.0-4.3 [facility] Comment on above: Performed By: #### L [id number], [id number] ####Statement Clerks Manager: FINN BONNER ([phone])[facility])[address] [place] [address] LYMPHOCYTES TOTAL PER COUNTED LEUKOCYTES BY MANUAL COUNT 16 Normal [facility] Comment on above: Performed By: #### L [id number], [id number] ####Statement Clerks Manager: FINN BONNER ([phone])[facility])[address] [place] [address] [place] LYMPHOCYTES/100 LEUKOCYTES IN BLOOD BY MANUAL COUNT 16 % Low 20-40 [facility] Comment on above: Performed By: #### L [id number], [id number] ####Statement Clerks Manager: FINN BONNER ([phone])[facility])[address] [place] [address] [place] MONOCYTES (10*3/UL) IN BLOOD BY MANUAL COUNT 1.1 10*3/uL High 0.0-0.8 [facility] Comment on above: Performed By: #### L [id number], [id number] ####Statement Clerks Manager: FINN BONNER ([phone])[facility])[address] [place] [address] MONOCYTES TOTAL PER COUNTED LEUKOCYTES BY MANUAL COUNT 11 Normal [facility] Comment on above: Performed By: #### L [id number], [id number] ####Statement Clerks Manager: FINN BONNER ([phone])[facility])[address] [place] [address] MONOCYTES/100 LEUKOCYTES IN BLOOD BY MANUAL COUNT 11 % High 2-10 [facility] Comment on above: Performed By: #### L [id number], [id number] ####Statement Clerks Manager: FINN BONNER ([phone])[facility])[address] [place] [address] NEUTROPHILS (SEGS+BANDS) (10*3/UL) BY MANUAL COUNT 6.2 10*3/uL Normal 1.8-7.0 [facility] Comment on above: Performed By: #### L [id number], [id number] ####Statement Clerks Manager: FINN BONNER ([phone])[facility] ([facility])[address] [place] [address] NEUTROPHILS TOTAL PER COUNTED LEUKOCYTES BY MANUAL COUNT 65 Normal [facility] Comment on above: Performed By: #### L [id number], [id number] ####Statement Clerks Manager: FINN BONNER ([phone])[facility] ([facility])[address] [place] [address] SEGEMENTED NEUTROPHILS/100 LEUKOCYTES BY MANUAL COUNT 65 % Normal 40-80 [facility] Comment on above: Performed By: #### L [id number], [id number] ####Statement Clerks Manager: FINN BONNER ([phone])[facility] ([facility])[address] [place] [address] Manual differential performe d Ql (Bld)on 02-08-2023 Basophils (Bld) [#/Vol] 0.1 10*3/uL 0.0 - 0.2 10*3/uL [facility] [employer] Basophils Manual 1 [facility] Basophils/100 WBC (Bld) 1 % 0 - 2 % [facility] [employer] Cells Counted Total (Bld) [#] 100 {cells} [facility] [employer] Differential Method Automated differenti al reported after manual slide review [facility] Eosinophils (Bld) [#/Vol] 0.7 10*3/uL High 0.0 - 0.5 10*3/uL for; to (do) Centers [employer] Eosinophils Manual 7 High 0 - [address] [facility] Eosinophils/100 WBC (Bld) 7 % High 1 - 6 % [facility] Interpretation and review of laboratory results Abnormal [facility] Lymphocytes (Bld) [#/Vol] 1.5 10*3/uL 1.0 - 4.3 10*3/uL for; to (do) Centers Health Lymphocytes Manual [address] [facility] Lymphocytes/100 WBC (Bld) 16 % Low 20 - 40 % [facility] Monocytes (Bld) [#/Vol] 1.1 10*3/uL High 0.0 - 0.8 10*3/uL [facility] Monocytes Manual 11 [facility] Monocytes/100 WBC (Bld) 11 % High 2 - 10 % [facility] Neutrophils (Bld) [#/Vol] 6.2 10*3/uL 1.8 - 7.0 10*3/uL [facility] [employer] Neutrophils Manual [address] [facility] [employer] Segmented neutrophils/100 WBC (Bld) 65 % 40 - 80 % [facility] [employer] WBC corrected for nucl RBC (Bld) [#/Vol] 9.6 10*3/uL 3.6 - 10.7 10*3/uL [facility] [employer] [facility] [employer] No Panel InformationOrdered By: Edgar Powell on 02-08-2023 P [place] [address] [facility] [employer] Work Phone: AL Interval [address] [facility] [employer] Work Phone: QRS [place] [address] [facility] [employer] Work Phone: QRSD Interval [address] [facility] [employer] Work Phone: QT Interval [address] [facility] [employer] Work Phone: QTC Interval [address] [facility] [employer] Work Phone: T Wave [place] [address] [facility] [employer] Work Phone: [facility] [employer] Work Phone: No Panel Informationon 02-08 CV EPIPHANY [facility] [employer] Interpretation and review of laboratory results Normal [facility] [employer] [facility] [employer] PHOSPHORUSon 02-08-2023 Phosphate [Mass/Vol] 3.0 mg/dL Normal 2.5-4.5 [facility] [employer] [facility] Comment on above: Performed By: #### L AB113, [id number], LAB15 ####Statement Clerks Manager: FINN BONNER ([phone])[address] Phosphate [Moles/Vol]on 01-13 Phosphate [Mass/Vol] 3.0 mg/dL 2.5 - 4 .5 mg/dL [facility] [employer] Progress Noteon 02-08-2023 Progress Note Normal [facility] [employer] [facility] Vital signsOrdered By: Anastasia Powell on 02-08-2023 Heart rate 88 /min bpm [facility] [employer] Work Phone: BASIC METABOLIC PANELon 01-13 Anion gap [Moles/Vol] 7 mmol/L Normal 3-13 [facility] Comment on above: Performed By: #### L AB103, LAB15, [id number] ####Statement Clerks Manager: FINN BONNER ([phone])[facility])[address] [place] [address] Calcium [Mass/Vol] 8.5 mg/dL Normal 8.4-10.4 [facility] Comment on above: Performed By: #### L AB103, LAB15, [id number] ####Statement Clerks Manager: FINN BONNER ([phone])[facility] ([facility] [place] [address] Chloride [Moles/Vol] 96 mmol/L Low 98-107 [facility] Comment on above: Performed By: #### Светлана AB103, LAB15, [id number] ####Statement Clerks Manager: FINN BONNER ([phone])[facility] ([facility])[address] [place] [address] CO2 [Moles/Vol] 33 mmol/L High 22-30 [facility] Comment on above: Performed By: #### Светлана AB103, LAB15, [id number] ####Statement Clerks Manager: FINN BONNER ([phone])[facility])[address] [place] [address] Creatinine [Mass/Vol] 0.64 mg/dL Low 0.66-1.25 [facility] Comment on above: Performed By: #### L AB103, LAB15, [id number] ####Statement Clerks Manager: FINN BONNER ([phone])[facility])[address] [place] [address] GLOMERULAR FILTRATION RATE ML/MIN/1.73 SQ M.PREDICTED >90.0 Normal >60.0 [facility] Comment on above: Result Comment: Calc ulation based on the Chronic Kidney Disease Epidemiology Collaboration (CKD-EPI) equation refit without adjustment for race Performed By: #### L AB103, LAB15, [id number] ####Statement Clerks Manager: FINN BONNER ([phone])[facility] ([facility])[address] [place] [address] [place] Glucose [Mass/Vol] 119 mg/dL High 70-100 [facility] Comment on above: Performed By: #### L AB103, LAB15, [id number] ####Statement Clerks Manager: FINN BONNER ([phone])[facility] ([facility])[address] [place] [address] Potassium [Moles/Vol] 3.0 mmol/L Low 3.5-5.1 [facility] Comment on above: Performed By: #### L AB103, LAB15, [id number] ####Statement Clerks Manager: FINN BONNER ([phone])[facility] ([facility])[address] [place] [address] Sodium [Moles/Vol] 136 mmol/L Normal 135-145 [facility] Comment on above: Performed By: #### Светлана AB103, LAB15, [id number] ####Statement Clerks Manager: FINN BONNER ([phone])[facility] ([facility])[address] [place] [address] Urea nitrogen [Mass/Vol] 6 mg/dL Low 9-20 [facility] Comment on above: Performed By: #### L AB103, LAB15, [id number] ####Statement Clerks Manager: FINN BONNER ([phone])[facility] ([facility])[address] [place] [address] Basic metabolic 1998 panelon 02-07-2023 Anion gap [Moles/Vol] 7 mmol/L 3 - 13 mmol/L [facility] Calcium [Mass/Vol] 8.5 mg/dL 8.4 - 10. 4 mg/dL [facility] Chloride [Moles/Vol] 96 mmol/L Low 98 - 10 7 mmol/L [facility] CO2 [Moles/Vol] 33 mmol/L High 22 - 30 mmol/L [facility] Creatinine [Mass/Vol] 0.64 mg/dL Low 0.66 - 1.25 mg/dL [facility] GFR/1.73 sq M.predicted MDRD (S/P/Bld) [Vol rate/Area] - PINF [facility] Glucose [Mass/Vol] 119 mg/dL High 70 - 100 mg/dL [facility] Potassium [Moles/Vol] 3.0 mmol/L Low 3.5 - 5.1 mmol/L [facility] Sodium [Moles/Vol] 136 mmol/L 135 - 145 mmol/L [facility] Urea nitrogen [Mass/Vol] 6 mg/dL Low 9 - 20 mg/dL [facility] CALCIUM, IONIZEDon CALCIUM IONIZED 4.30 mg/dL Normal 4.30-5.20 [facility] Comment on above: Performed By: #### L AB54 ####Statement Clerks Manager: FINN BONNER ([phone])[facility] ([facility])[address] [place] [address] PH, IONIZED CALCIUM 7.45 Normal 7.31-7.46 [facility] Comment on above: Performed By: #### L AB54 ####Statement Clerks Manager: FINN BONNER ([phone])[facility] ([facility])[address] [place] [address] CARECOORDon 02-07-2023 CARECOORD Normal [facility] Normal [facility] called [facility] for OT to see today for eval. [facility] CBC W Auto Differential pane l (Bld)on 02-07-2023 Basophils (Bld) [#/Vol] 0.1 10*3/uL 0.0 - 0.2 10*3/uL [facility] Basophils/100 WBC (Bld) 0.5 % 0.0 - 2.0 % [facility] Eosinophils (Bld) [#/Vol] 0.7 10*3/uL High 0.0 - 0.5 10*3/uL [facility] Eosinophils/100 WBC (Bld) 7.0 % High 1.0 - 6.0 % [facility] Erythrocyte distribution width (RBC) [Ratio] 16.4 % High 11.5 - 14.5 % [facility] Hematocrit (Bld) [Volume fraction] 32.9 % Low 40.0 - 52.0 % [facility] Hemoglobin (Bld) [Mass/Vol] 10.4 g/dL Low 13.0 - 18.0 g/dL [facility] Interpretation and review of laboratory results Abnormal [facility] Lymphocytes (Bld) [#/Vol] 1.3 10*3/uL 1.0 - 4.3 10*3/uL [facility] Lymphocytes/100 WBC (Bld) 13.4 % Low 20.0 - 40.0 % [facility] MCH (RBC) [Entitic mass] 26.0 pg 26.0 - 34.0 pg [facility] MCHC (RBC) [Mass/Vol] 31.6 % Low 32.0 - 36.0 % [facility] MCV (RBC) [Entitic vol] 82.1 fL 80.0 - 98.0 fL [facility] Monocytes (Bld) [#/Vol] 1.0 10*3/uL High 0.0 - 0.8 10*3/uL [facility] Monocytes/100 WBC (Bld) 11.0 % High 2.0 - 10.0 % [facility] Neutrophils (Bld) [#/Vol] 6.5 10*3/uL 1.8 - 7.0 10*3/uL [facility] Neutrophils/100 WBC (Bld) 68.1 % 40.0 - 80.0 % [facility] Nucleated RBC/100 WBC (Bld) [Ratio] 0.0 % [facility] Platelet mean volume (Bld) [Entitic vol] 7.4 fL 7.4 - 12.4 fL [facility] Platelets (Bld) [#/Vol] 324 10*3/uL 140 - 440 10*3/uL [facility] RBC (Bld) [#/Vol] 4.00 10*6/uL Low 4.40 - 5.9 0 10*6/uL [facility] WBC (Bld) [#/Vol] 9.5 10*3/uL 3.6 - 10.7 10*3/uL [facility] CBC WITH AUTO DIFFERENTIALon 02-07-2023 Basophils (Bld) [#/Vol] 0.1 10*3/uL Normal 0.0-0.2 [facility] Comment on above: Performed By: #### L [id number] ####Statement Clerks Manager: FINN BONNER ([phone])[facility] ([address] Basophils/100 WBC (Bld) 0.5 % Normal 0.0-2.0 [facility] Comment on above: Performed By: #### L [id number] ####Statement Clerks Manager: FINN BONNER ([phone])[facility])[address] [place] [address] Eosinophils (Bld) [#/Vol] 0.7 10*3/uL High 0.0-0.5 [facility] Comment on above: Performed By: #### L [id number] ####Statement Clerks Manager: FINN BONNER ([phone])[facility])[address] [place] [address] Eosinophils/100 WBC (Bld) 7.0 % High 1.0-6.0 [facility] Comment on above: Performed By: #### L [id number] ####Statement Clerks Manager: FINN BONNER ([phone])[facility])[address] [place] [address] Erythrocyte distribution width (RBC) [Ratio] 16.4 % High 11.5-14.5 [facility] Comment on above: Performed By: #### L [id number] ####Statement Clerks Manager: FINN BONNER ([phone])[facility])[address] [place] [address] ERYTHROCYTE MEAN CORPUSCULAR HEMOGLOBIN CONCENTRATION (G/DL) BY AUTOMATED 31.6 % Low 32.0-36.0 [facility] Comment on above: Performed By: #### L [id number] ####Statement Clerks Manager: FINN BONNER ([phone])[facility])[address] [place] [address] Hematocrit (Bld) [Volume fraction] 32.9 % Low 40.0-52.0 [facility] Comment on above: Performed By: #### L [id number] ####Statement Clerks Manager: FINN BONNER ([phone])[facility])[address] [place] [address] Hemoglobin (Bld) [Mass/Vol] 10.4 g/dL Low 13.0-18.0 [facility] Comment on above: Performed By: #### L [id number] ####Statement Clerks Manager: FINN BONNER ([phone])[facility])[address] [place] [address] Lymphocytes (Bld) [#/Vol] 1.3 10*3/uL Normal 1.0-4.3 [facility] Comment on above: Performed By: #### L [id number] ####Statement Clerks Manager: FINN BONNER ([phone])[facility])[address] [place] [address] Lymphocytes/100 WBC (Bld) 13.4 % Low 20.0-40.0 [facility] Comment on above: Performed By: #### L [id number] ####Statement Clerks Manager: FINN BONNER ([phone])[facility])[address] [place] [address] MCH (RBC) [Entitic mass] 26.0 pg Normal 26.0-34.0 [facility] Comment on above: Performed By: #### L [id number] ####Statement Clerks Manager: FINN BONNER ([phone])[facility])[address] [place] [address] MCV (RBC) [Entitic vol] 82.1 fL Normal 80.0-98.0 [facility] Comment on above: Performed By: #### L [id number] ####Statement Clerks Manager: FINN BONNER ([phone])[facility])[address] [place] [address] Monocytes (Bld) [#/Vol] 1.0 10*3/uL High 0.0-0.8 [facility] Comment on above: Performed By: #### L [id number] ####Statement Clerks Manager: FINN BONNER ([phone])[facility])[address] [place] [address] Monocytes/100 WBC (Bld) 11.0 % High 2.0-10.0 [facility] Comment on above: Performed By: #### L [id number] ####Statement Clerks Manager: FINN BONNER ([phone])[facility] ([facility])[address] [place] [address] Neutrophils (Bld) [#/Vol] 6.5 10*3/uL Normal 1.8-7.0 [facility] Comment on above: Performed By: #### L [id number] ####Statement Clerks Manager: FINN BONNER ([phone])[facility] ([facility])[address] [place] [address] Neutrophils/100 WBC (Bld) 68.1 % Normal 40.0-80.0 [facility] Comment on above: Performed By: #### L [id number] ####Statement Clerks Manager: FINN BONNER ([phone])[facility] ([facility])[address] [place] [address] NRBC (PER 100 WBCS) BY AUTOMATED COUNT 0.0 /100 WBCs Normal 0.0-2.0 [facility] Comment on above: Performed By: #### L [id number] ####Statement Clerks Manager: FINN BONNER ([phone])[facility] ([facility])[address] [place] [address] Platelet mean volume (Bld) [Entitic vol] 7.4 fL Normal 7.4-12.4 [facility] Comment on above: Performed By: #### L [id number] ####Statement Clerks Manager: FINN BONNER ([phone])[facility] ([facility])[address] [place] [address] [place] Platelets (Bld) [#/Vol] 324 10*3/uL Normal 140-440 [facility] Comment on above: Performed By: #### L [id number] ####Statement Clerks Manager: FINN BONNER ([phone])[facility] ([facility])[address] [place] [address] [place] RBC (Bld) [#/Vol] 4.00 10*6/uL Low 4.40-5.90 [facility] Comment on above: Performed By: #### L [id number] ####Statement Clerks Manager: FINN BONNER ([phone])[facility] ([facility])[address] [place] [address] WBC (Bld) [#/Vol] 9.5 10*3/uL Normal 3.6-10.7 [facility] Comment on above: Performed By: #### L [id number] ####Statement Clerks Manager: FINN BONNER ([phone])[facility] ([facility])[address] [place] [address] Calcium.ionized [Moles/Vol]o n 02-07-2023 Calcium.ionized (Bld) [Moles/Vol] 4.30 mg/dL 4.30 - 5.20 mg/dL [facility] Interpretation and review of laboratory results Normal [facility] PH, IONIZED CALCIUM 7.45 7.31 - 7.46 [facility] - Chemistry and C hemistry - challengeon 02-07-2023 Troponin I.cardiac [Mass/Vol] ng/mL NINF - 0.034 ng/mL [facility] Magnesium [Mass/Vol] 1.8 mg/dL 1.6 - 2 .3 mg/dL [facility] Glucose [Mass/Vol] 130 mg/dL High 70 - 100 mg/dL [facility] MAGNESIUMon 02-07-2023 Magnesium [Mass/Vol] 1.8 mg/dL Normal 1.6-2.3 [facility] Comment on above: Performed By: #### L [id number], LAB15, [id number] ####Statement Clerks Manager: FINN BONNER ([phone])[facility] ([facility])[address] [place] [address] Magnesium [Mass/Vol]on 02-07 Interpretation and review of laboratory results Normal [facility] No Panel Informationon 02-07 Interpretation and review of laboratory results Abnormal [facility] Interpretation and review of laboratory results Abnormal [facility] PHOSPHORUSon 02-07-2023 Phosphate [Mass/Vol] 2.3 mg/dL Low 2.5-4.5 [facility] Comment on above: Performed By: #### L AB103, LAB15, [id number] ####Statement Clerks Manager: FINN BONNER ([phone])[facility] ([facility])[address] [place] [address] [place] Phosphate [Moles/Vol]on 01-13 Phosphate [Mass/Vol] 2.3 mg/dL Low 2.5 - 4 .5 mg/dL [facility] Progress Noteon 02-07-2023 Progress Note Normal [facility] Progress [facility] Normal [facility] Progress Note Normal [facility] TROPONIN, WITH SERIAL REFLEX on 02-07-2023 Troponin I.cardiac [Mass/Vol] ng/mL Normal <0.034 [facility] Comment on above: Result Comment: NATALIE Doss COMMENTS:Patients with high levels of Biotin oral intake (ie >5 mg/day) may have falsely decreased Troponin levels. Performed By: #### L [id number] ####Statement Clerks Manager: FINN BONNER ([phone])[facility] ([facility])[address] [place] [address] [place] Troponin I.cardiac [Mass/Vol ]on 02-07-2023 Interpretation and review of laboratory results Normal [facility] XR ABDOMEN 1 VIEWon 02-08-20 XR ABDOMEN 1 VIEW Normal [facility] XR Abdomen Single viewon [facility] Radiology Study observation (narrative) [facility] XR CHEST 1 VIEWon 02-07-2023 XR CHEST 1 VIEW Normal [facility] XR Chest Single viewon 02-07 [facility] Radiology Study observation (narrative) [facility] BASIC METABOLIC PANELon 01-13 Anion gap [Moles/Vol] 9 mmol/L Normal 3-13 [facility] Comment on above: Performed By: #### L AB99, LAB15, LAB20 ####Statement Clerks Manager: FINN BONNER ([phone])[facility] ([facility])[address] [place] [address] [place] Calcium [Mass/Vol] 8.6 mg/dL Normal 8.4-10.4 [facility] Comment on above: Performed By: #### L AB99, LAB15, LAB20 ####Statement Clerks Manager: FINN BONNER ([phone])[facility] ([facility])[address] [place] [address] Chloride [Moles/Vol] 97 mmol/L Low 98-107 [facility] Comment on above: Performed By: #### Светлана AB99, LAB15, LAB20 ####Statement Clerks Manager: FINN BONNER ([phone])[facility])[address] [place] [address] CO2 [Moles/Vol] 29 mmol/L Normal 22-30 [facility] Comment on above: Performed By: #### Светлана QUIN[place], LAB15, LAB20 ####Statement Clerks Manager: FINN BONNER ([phone])[facility])[address] [place] [address] Creatinine [Mass/Vol] 0.66 mg/dL Normal 0.66-1.25 [facility] Comment on above: Performed By: #### Светлана AB99, LAB15, LAB20 ####Statement Clerks Manager: FINN BONNER ([phone])[facility])[address] [place] [address] GLOMERULAR FILTRATION RATE ML/MIN/1.73 SQ M.PREDICTED >90.0 Normal >60.0 [facility] Comment on above: Result Comment: Calc ulation based on the Chronic Kidney Disease Epidemiology Collaboration (CKD-EPI) equation refit without adjustment for race Performed By: #### Светлана AB99, LAB15, LAB20 ####Statement Clerks Manager: FINN BONNER ([phone])[facility] ([facility])[address] [place] [address] Glucose [Mass/Vol] 95 mg/dL Normal 70-100 [facility] Comment on above: Performed By: #### Светлана AB99, LAB15, LAB20 ####Statement Clerks Manager: FINN BONNER ([phone])[facility])[address] [place] [address] Potassium [Moles/Vol] 3.3 mmol/L Low 3.5-5.1 [facility] Comment on above: Performed By: #### L AB99, LAB15, LAB20 ####Statement Clerks Manager: FINN BONNER ([phone])[facility] [place] [address] Sodium [Moles/Vol] 135 mmol/L Normal 135-145 [facility] Comment on above: Performed By: #### L AB99, LAB15, LAB20 ####Statement Clerks Manager: FINN BONNER ([phone])[facility] ([facility] [place] [address] Urea nitrogen [Mass/Vol] 11 mg/dL Normal 9-20 [facility] Comment on above: Performed By: #### L AB99, LAB15, LAB20 ####Statement Clerks Manager: FINN BONNER ([phone])[facility] ([facility])[address] [place] [address] Basic metabolic 1998 panelon 02-06-2023 Anion gap [Moles/Vol] 9 mmol/L 3 - 13 mmol/L [facility] Calcium [Mass/Vol] 8.6 mg/dL 8.4 - 10. 4 mg/dL [facility] Chloride [Moles/Vol] 97 mmol/L Low 98 - 10 7 mmol/L [facility] CO2 [Moles/Vol] 29 mmol/L 22 - 30 mmol/L [facility] Creatinine [Mass/Vol] 0.66 mg/dL 0.66 - 1.25 mg/dL [facility] GFR/1.73 sq M.predicted MDRD (S/P/Bld) [Vol rate/Area] - PINF [facility] Glucose [Mass/Vol] 95 mg/dL 70 - 100 mg/dL [facility] Interpretation and review of laboratory results Abnormal [facility] Potassium [Moles/Vol] 3.3 mmol/L Low 3.5 - 5.1 mmol/L [facility] Sodium [Moles/Vol] 135 mmol/L 135 - 145 mmol/L [facility] Urea nitrogen [Mass/Vol] 11 mg/dL 9 - 20 mg/dL [facility] CBC (HEMOGRAM)on 02-06-2023 Erythrocyte distribution width (RBC) [Ratio] 16.6 % High 11.5-14.5 [facility] Comment on above: Performed By: #### L [id number] ####Statement Clerks Manager: FINN BONNER ([phone])[facility])[address] [place] [address] ERYTHROCYTE MEAN CORPUSCULAR HEMOGLOBIN CONCENTRATION (G/DL) BY AUTOMATED 31.4 % Low 32.0-36.0 [facility] Comment on above: Performed By: #### L [id number] ####Statement Clerks Manager: FINN BONNER ([phone])[facility])[address] [place] [address] Hematocrit (Bld) [Volume fraction] 31.3 % Low 40.0-52.0 [facility] Comment on above: Performed By: #### L [id number] ####Statement Clerks Manager: FINN BONNER ([phone])[facility])[address] [place] [address] Hemoglobin (Bld) [Mass/Vol] 9.8 g/dL Low 13.0-18.0 [facility] Comment on above: Performed By: #### L [id number] ####Statement Clerks Manager: FINN BONNER ([phone])[facility])[address] [place] [address] MCH (RBC) [Entitic mass] 25.6 pg Low 26.0-34.0 [facility] Comment on above: Performed By: #### L [id number] ####Statement Clerks Manager: FINN BONNER ([phone])[facility])[address] [place] [address] MCV (RBC) [Entitic vol] 81.7 fL Normal 80.0-98.0 [facility] Comment on above: Performed By: #### L [id number] ####Statement Clerks Manager: FINN BONNER ([phone])[facility])[address] [place] [address] Platelet mean volume (Bld) [Entitic vol] 7.9 fL Normal 7.4-12.4 [facility] Comment on above: Performed By: #### L [id number] ####Statement Clerks Manager: FINN BONNER ([phone])[facility] ([facility])[address] [place] [address] Platelets (Bld) [#/Vol] 345 10*3/uL Normal 140-440 [facility] Comment on above: Performed By: #### L [id number] ####Statement Clerks Manager: FINN BONNER ([phone])[facility] ([facility])[address] [place] [address] RBC (Bld) [#/Vol] 3.83 10*6/uL Low 4.40-5.90 [facility] Comment on above: Performed By: #### L [id number] ####Statement Clerks Manager: FINN BONNER ([phone])[facility] ([facility])[address] [place] [address] WBC (Bld) [#/Vol] 10.0 10*3/uL Normal 3.6-10.7 [facility] Comment on above: Performed By: #### L [id number] ####Statement Clerks Manager: FINN BONNER ([phone])[facility])[address] [place] [address] CBC panel Auto (Bld)on 02-06 Erythrocyte distribution width (RBC) [Ratio] 16.6 % High 11.5 - 14.5 % [facility] Hematocrit (Bld) [Volume fraction] 31.3 % Low 40.0 - 52.0 % [facility] Hemoglobin (Bld) [Mass/Vol] 9.8 g/dL Low 13.0 - 18.0 g/dL [facility] Interpretation and review of laboratory results Abnormal [facility] MCH (RBC) [Entitic mass] 25.6 pg Low 26.0 - 34.0 pg [facility] MCHC (RBC) [Mass/Vol] 31.4 % Low 32.0 - 36.0 % [facility] MCV (RBC) [Entitic vol] 81.7 fL 80.0 - 98.0 fL [facility] Platelet mean volume (Bld) [Entitic vol] 7.9 fL 7.4 - 12.4 fL [facility] Platelets (Bld) [#/Vol] 345 10*3/uL 140 - 440 10*3/uL [facility] RBC (Bld) [#/Vol] 3.83 10*6/uL Low 4.40 - 5.9 0 10*6/uL [facility] WBC (Bld) [#/Vol] 10.0 10*3/uL 3.6 - 10.7 10*3/uL [facility] ECG 12-LEADon 02-06-2023 ECG 12-LEAD IMPRESSION: Sinus tachycardia Low voltage, precordial leads Nonspecific T wave abnormalities Electronically Signed On 02-06-2023 6:03:11 EST by Noa Barton [facility] HEPATIC FUNCTION PANELon Albumin [Mass/Vol] 3.2 g/dL Low 3.5-5.0 [facility] Comment on above: Performed By: #### Светлана AB99, LAB15, LAB20 ####Statement Clerks Manager: FINN BONNER ([phone])[facility] ([facility])[address] [place] [address] ALP [Catalytic activity/Vol] 53 U/L Normal 38-126 [facility] Comment on above: Performed By: #### Светлана LOOC99, LAB15, LAB20 ####Statement Clerks Manager: FINN BONNER ([phone])[facility] ([facility])[address] [place] [address] ALT [Catalytic activity/Vol] 24 U/L Normal 0-49 [facility] Comment on above: Performed By: #### Светлана AB99, LAB15, LAB20 ####Statement Clerks Manager: FINN BONNER ([phone])[facility] ([facility])[address] [place] [address] [place] AST [Catalytic activity/Vol] 33 U/L Normal 15-46 [facility] Comment on above: Performed By: #### Светлана AB99, LAB15, LAB20 ####Statement Clerks Manager: FINN BONNER ([phone])[facility] ([facility])[address] [place] [address] Bilirubin [Mass/Vol] 0.7 mg/dL Normal 0.2-1.3 [facility] Comment on above: Performed By: #### L AB99, LAB15, LAB20 ####Statement Clerks Manager: FINN BONNER ([phone])[facility])[address] [place] [address] Bilirubin.indirect [Mass/Vol] 0.0 mg/dL Normal 0.0-0.3 [facility] Comment on above: Performed By: #### Светлана AB99, LAB15, LAB20 ####Statement Clerks Manager: FINN BONNER ([phone])[facility])[address] [place] [address] Protein [Mass/Vol] 6.5 g/dL Normal 6.3-8.2 [facility] Comment on above: Performed By: #### L AB99, LAB15, LAB20 ####Statement Clerks Manager: FINN BONNER ([phone])[facility])[address] [place] [address] Hepatic function 2000 panelo n 02-06-2023 Albumin [Mass/Vol] 3.2 g/dL Low 3.5 - 5.0 g/dL [facility] ALP [Catalytic activity/Vol] 53 U/L 38 - 126 U/L [facility] ALT [Catalytic activity/Vol] 24 U/L 0 - 49 U/L [facility] AST [Catalytic activity/Vol] 33 U/L 15 - 46 U/L [facility] Bilirubin [Mass/Vol] 0.7 mg/dL 0.2 - 1 .3 mg/dL [facility] Bilirubin.conjugated [Mass/Vol] 0.0 mg/dL 0.0 - 0.3 mg/dL [facility] Protein [Mass/Vol] 6.5 g/dL 6.3 - 8.2 g/dL [facility] LIPASEon 02-06-2023 Lipase [Catalytic activity/Vol] 1778 U/L High 23-300 [facility] Comment on above: Performed By: #### L AB99, LAB15, LAB20 ####Statement Clerks Manager: FINN BONNER ([phone])[facility])[address] [place] [address] Laboratory - Chemistry and C hemistry - challengeon 02-06-2023 Glucose [Mass/Vol] 115 mg/dL High 70 - 100 mg/dL [facility] Lipase [Catalytic activity/Vol] 1778 U/L High 23 - 300 U/L [facility] Glucose [Mass/Vol] 86 mg/dL 70 - 100 mg/dL [facility] Glucose [Mass/Vol] 90 mg/dL 70 - 100 mg/dL [facility] Glucose [Mass/Vol] 86 mg/dL 70 - 100 mg/dL [facility] No Panel Informationon 02-06 Interpretation and review of laboratory results Abnormal [facility] Interpretation and review of laboratory results Abnormal [facility] Interpretation and review of laboratory results Normal [facility] P [place] 72 degrees [facility] AL Interval 133 ms [facility] QRS [place] 71 degrees [facility] QRSD Interval 75 ms [facility] QT Interval 298 ms [facility] QTC Interval 391 ms [facility] T Wave [place] -25 degrees [facility] CV EPIPHANY [facility] Interpretation and review of laboratory results Normal [facility] Interpretation and review of laboratory results Normal [facility] Progress Noteon 02-06-2023 Progress Note Normal [facility] RF videography Hypopharynx a nd Esophagus Views for swallowing function W speech and W barium contrast Liam 02-06-[address] [facility] Radiology Study observation (narrative) [facility] Vital signson 02-06-2023 Heart rate 104 /min bpm [facility] XR ABDOMEN 1 VIEWon 02-07-20 23 XR ABDOMEN 1 VIEW Normal [facility] XR ABDOMEN 1 VIEW [facility] XR Abdomen Single viewon [facility] Radiology Study observation (narrative) [facility] Radiology Study observation (narrative) [facility] XR Abdomen Single viewOrdere d By: Michael Villalobos on 02-06-2023 [facility] Work Phone: BASIC METABOLIC PANELon 01-13 Anion gap [Moles/Vol] 9 mmol/L Normal 3-13 [facility] Comment on above: Performed By: #### L AB15 ####Statement Clerks Manager: FINN BONNER ([phone])[facility] ([facility])[address] [place] [address] Calcium [Mass/Vol] 8.2 mg/dL Low 8.4-10.4 [facility] Comment on above: Performed By: #### L [id number] ####Statement Clerks Manager: FINN BONNER ([phone])[facility] [place] [address] Chloride [Moles/Vol] 99 mmol/L Normal 98-107 [facility] Comment on above: Performed By: #### L [id number] ####Statement Clerks Manager: FINN BONNER ([phone])[facility] ([facility])[address] [place] [address] CO2 [Moles/Vol] 27 mmol/L Normal 22-30 [facility] Comment on above: Performed By: #### L AB15 ####Statement Clerks Manager: FINN BONNER ([phone])[facility] ([facility])[address] [place] [address] Creatinine [Mass/Vol] 0.69 mg/dL Normal 0.66-1.25 [facility] Comment on above: Performed By: #### L AB15 ####Statement Clerks Manager: FINN BONNER ([phone])[facility] ([facility])[address] [place] [address] GLOMERULAR FILTRATION RATE ML/MIN/1.73 SQ M.PREDICTED >90.0 Normal >60.0 [facility] Comment on above: Result Comment: Calc ulation based on the Chronic Kidney Disease Epidemiology Collaboration (CKD-EPI) equation refit without adjustment for race Performed By: #### L AB15 ####Statement Clerks Manager: FINN BONNER ([phone])[facility] ([facility])[address] [place] [address] Glucose [Mass/Vol] 72 mg/dL Normal 70-100 [facility] Comment on above: Performed By: #### L AB15 ####Statement Clerks Manager: FINN BONNER ([phone])[facility] ([facility])[address] [place] [address] Potassium [Moles/Vol] 4.0 mmol/L Normal 3.5-5.1 [facility] Comment on above: Performed By: #### L AB15 ####Statement Clerks Manager: FINN BONNER ([phone])[facility] ([facility])[address] [place] [address] Sodium [Moles/Vol] 134 mmol/L Low 135-145 [facility] Comment on above: Performed By: #### L AB15 ####Statement Clerks Manager: FINN BONNER ([phone])[facility])[address] [place] [address] Urea nitrogen [Mass/Vol] 17 mg/dL Normal 9-20 [facility] Comment on above: Performed By: #### L AB15 ####Statement Clerks Manager: FINN BONNER ([phone])[facility] ([facility])[address] [place] [address] Basic metabolic 1998 panelon 02-05-2023 Anion gap [Moles/Vol] 9 mmol/L 3 - 13 mmol/L [facility] Calcium [Mass/Vol] 8.2 mg/dL Low 8.4 - 10. 4 mg/dL [facility] Chloride [Moles/Vol] 99 mmol/L 98 - 10 7 mmol/L [facility] CO2 [Moles/Vol] 27 mmol/L 22 - 30 mmol/L [facility] Creatinine [Mass/Vol] 0.69 mg/dL 0.66 - 1.25 mg/dL [facility] GFR/1.73 sq M.predicted MDRD (S/P/Bld) [Vol rate/Area] - PINF [facility] Glucose [Mass/Vol] 72 mg/dL 70 - 100 mg/dL [facility] Interpretation and review of laboratory results Abnormal [facility] Potassium [Moles/Vol] 4.0 mmol/L 3.5 - 5.1 mmol/L [facility] Sodium [Moles/Vol] 134 mmol/L Low 135 - 145 mmol/L [facility] Urea nitrogen [Mass/Vol] 17 mg/dL 9 - 20 mg/dL [facility] CBC (HEMOGRAM)on 02-05-2023 Erythrocyte distribution width (RBC) [Ratio] 16.7 % High 11.5-14.5 [facility] Comment on above: Performed By: #### L [id number] ####Statement Clerks Manager: FINN BONNER ([phone])[facility])[address] [place] [address] ERYTHROCYTE MEAN CORPUSCULAR HEMOGLOBIN CONCENTRATION (G/DL) BY AUTOMATED 31.8 % Low 32.0-36.0 [facility] Comment on above: Performed By: #### L [id number] ####Statement Clerks Manager: FINN BONNER ([phone])[facility])[address] [place] [address] Hematocrit (Bld) [Volume fraction] 27.6 % Low 40.0-52.0 [facility] Comment on above: Performed By: #### L [id number] ####Statement Clerks Manager: FINN BONNER ([phone])[facility])[address] [place] [address] Hemoglobin (Bld) [Mass/Vol] 8.8 g/dL Low 13.0-18.0 [facility] Comment on above: Performed By: #### L [id number] ####Statement Clerks Manager: FINN BONNER ([phone])[facility])[address] [place] [address] MCH (RBC) [Entitic mass] 26.1 pg Normal 26.0-34.0 [facility] Comment on above: Performed By: #### L [id number] ####Statement Clerks Manager: FINN BONNER ([phone])[facility])[address] [place] [address] MCV (RBC) [Entitic vol] 82.1 fL Normal 80.0-98.0 [facility] Comment on above: Performed By: #### L [id number] ####Statement Clerks Manager: FINN BONNER ([phone])[facility])[address] [place] [address] Platelet mean volume (Bld) [Entitic vol] 7.2 fL Low 7.4-12.4 [facility] Comment on above: Performed By: #### L [id number] ####Statement Clerks Manager: FINN BONNER ([phone])[facility] ([facility])[address] [place] [address] Platelets (Bld) [#/Vol] 264 10*3/uL Normal 140-440 [facility] Comment on above: Performed By: #### L [id number] ####Statement Clerks Manager: FINN BONNER ([phone])[facility] ([facility])[address] [place] [address] RBC (Bld) [#/Vol] 3.36 10*6/uL Low 4.40-5.90 [facility] Comment on above: Performed By: #### L [id number] ####Statement Clerks Manager: FINN BONNER ([phone])[facility] ([facility])[address] [place] [address] WBC (Bld) [#/Vol] 6.8 10*3/uL Normal 3.6-10.7 [facility] Comment on above: Performed By: #### L [id number] ####Statement Clerks Manager: FINN BONNER ([phone])[facility] ([facility])[address] [place] [address] CBC panel Auto (Bld)on 02-05 Erythrocyte distribution width (RBC) [Ratio] 16.7 % High 11.5 - 14.5 % [facility] Hematocrit (Bld) [Volume fraction] 27.6 % Low 40.0 - 52.0 % [facility] Hemoglobin (Bld) [Mass/Vol] 8.8 g/dL Low 13.0 - 18.0 g/dL [facility] Interpretation and review of laboratory results Abnormal [facility] MCH (RBC) [Entitic mass] 26.1 pg 26.0 - 34.0 pg [facility] MCHC (RBC) [Mass/Vol] 31.8 % Low 32.0 - 36.0 % [facility] MCV (RBC) [Entitic vol] 82.1 fL 80.0 - 98.0 fL [facility] Platelet mean volume (Bld) [Entitic vol] 7.2 fL Low 7.4 - 12.4 fL [facility] Platelets (Bld) [#/Vol] 264 10*3/uL 140 - 440 10*3/uL [facility] RBC (Bld) [#/Vol] 3.36 10*6/uL Low 4.40 - 5.9 0 10*6/uL [facility] WBC (Bld) [#/Vol] 6.8 10*3/uL 3.6 - 10.7 10*3/uL [facility] ECG 12-LEADon 02-05-2023 ECG 12-LEAD IMPRESSION: Sinus rhythm Electronically Signed On 02-05-2023 10:32:07 EST by Noa Nugent [facility] ECG 12-LEAD IMPRESSION: Sinus rhythm Nonspecific T wave abnormalities Electronically Signed On 02-05-2023 10:32:22 EST by Noa Nugent [facility] Laboratory - Chemistry and C hemistry - challengeon 02-05-2023 Glucose [Mass/Vol] 80 mg/dL 70 - 100 mg/dL [facility] Glucose [Mass/Vol] 97 mg/dL 70 - 100 mg/dL [facility] Glucose [Mass/Vol] 76 mg/dL 70 - 100 mg/dL [facility] Glucose [Mass/Vol] 74 mg/dL 70 - 100 mg/dL [facility] No Panel Informationon 02-05 Interpretation and review of laboratory results Normal [facility] Interpretation and review of laboratory results Normal [facility] P [place] 74 degrees [facility] AL Interval 141 ms [facility] QRS [place] 79 degrees [facility] QRSD Interval 82 ms [facility] Interval 342 ms [facility] QTC Interval 415 ms [facility] T Wave [place] 40 degrees [facility] CV EPIPHANY [facility] CV [facility] Interpretation and review of laboratory results Normal [facility] Interpretation and review of laboratory results Normal [facility] No Panel InformationOrdered By: Noa Nugent on 02-05-2023 P [place] 58 degrees [facility] Work Phone: AL Interval 136 ms [facility] Work Phone: QRS [place] [address] [facility] [employer] Work Phone: QRSD Interval [address] [facility] [employer] Work Phone: QT Interval [address] [facility] [employer] Work Phone: QTC Interval [address] [facility] [employer] Work Phone: T Wave [place] [address] [facility] [employer] Work Phone: [facility] [employer] Work Phone: Progress Noteon 02-05-2023 Progress Note Normal [facility] Progress Note Normal [facility] Progress Note Normal [facility] Vital signson 02-05-2023 Heart rate 88 /min bpm [facility] [employer] Vital signsOrdered By: Noa Nugent on 02-05-2023 Heart rate 71 /min bpm [facility] [employer] Work Phone: XR ABDOMEN 1 VIEWon 02-06-20 23 XR ABDOMEN 1 VIEW Normal [facility] XR Abdomen Single viewon [facility] Radiology Study observation (narrative) [facility] [employer] XR Abdomen Single viewOrdere d By: Mindy Mcmahon on 02-05-[address] [facility] [employer] Work Phone: XR CHEST 1 VIEWon 02-05-2023 XR CHEST 1 VIEW Normal [facility] XR Chest Single viewon 02-05 [facility] Radiology Study observation (narrative) [facility] [employer] XR Chest Single viewOrdered By: Gerald Shah on 02-05-[address] [facility] [employer] Work Phone: BASIC METABOLIC PANELon 01-13 Anion gap [Moles/Vol] 7 mmol/L Normal 3-13 [facility] Comment on above: Performed By: #### L [id number] ####Statement Clerks Manager: FINN BONNER ([phone])[facility] ([address] Calcium [Mass/Vol] 8.5 mg/dL Normal 8.4-10.4 [facility] Comment on above: Performed By: #### L AB15 ####Statement Clerks Manager: FINN BONNER ([phone])[facility] ([facility])[address] [place] [address] Chloride [Moles/Vol] 96 mmol/L Low 98-107 [facility] Comment on above: Performed By: #### L AB15 ####Statement Clerks Manager: FINN BONNER ([phone])[facility] ([facility])[address] [place] [address] CO2 [Moles/Vol] 30 mmol/L Normal 22-30 [facility] Comment on above: Performed By: #### L AB15 ####Statement Clerks Manager: FINN BONNER ([phone])[facility] ([facility])[address] [place] [address] Creatinine [Mass/Vol] 0.73 mg/dL Normal 0.66-1.25 [facility] Comment on above: Performed By: #### L AB15 ####Statement Clerks Manager: FINN BONNER ([phone])[facility] ([facility])[address] [place] [address] GLOMERULAR FILTRATION RATE ML/MIN/1.73 SQ M.PREDICTED >90.0 Normal >60.0 [facility] Comment on above: Result Comment: Calc ulation based on the Chronic Kidney Disease Epidemiology Collaboration (CKD-EPI) equation refit without adjustment for race Performed By: #### L AB15 ####Statement Clerks Manager: FINN BONNER ([phone])[facility] ([facility])[address] [place] [address] [place] Glucose [Mass/Vol] 91 mg/dL Normal 70-100 [facility] Comment on above: Performed By: #### L AB15 ####Statement Clerks Manager: FINN BONNER ([phone])[facility] ([facility])[address] [place] [address] Potassium [Moles/Vol] 4.1 mmol/L Normal 3.5-5.1 [facility] Comment on above: Performed By: #### L AB15 ####Statement Clerks Manager: FINN BONNER ([phone])[facility] ([facility])[address] [place] [address] Sodium [Moles/Vol] 133 mmol/L Low 135-145 [facility] Comment on above: Performed By: #### L AB15 ####Statement Clerks Manager: FINN BONNER ([phone])[facility])[address] [place] [address] Urea nitrogen [Mass/Vol] 25 mg/dL High 9-20 [facility] Comment on above: Performed By: #### L AB15 ####Statement Clerks Manager: FINN BONNER ([phone])[facility])[address] [place] [address] BLOOD GAS ARTERIALon 023 Base excess Calc (Bld) [Moles/Vol] 2.6 mmol/L Normal -3.0-3.0 [facility] Comment on above: Performed By: #### L AB76 ####Statement Clerks Manager: FINN BONNER ([phone])[facility] ([facility])[address] [place] [address] CO2 [Moles/Vol] 29.9 mmol/L High 23.0-27.0 [facility] Comment on above: Performed By: #### L AB76 ####Statement Clerks Manager: FINN BONNER ([phone])[facility])[address] [place] [address] HCO3 (Bld) [Moles/Vol] 28.4 mmol/L High 21.0-25.0 [facility] Comment on above: Performed By: #### L AB76 ####Statement Clerks Manager: FINN BONNER ([phone])[facility])[address] [place] [address] Hemoglobin (Bld) [Mass/Vol] 11.0 g/dL Normal Screen Only [facility] Comment on above: Performed By: #### L AB76 ####Statement Clerks Manager: FINN BONNER ([phone])[facility])[address] [place] [address] OXYGEN SATURATION (%) IN ARTERIAL BLOOD 93.0 % Low 95.0-100.0 [facility] Comment on above: Performed By: #### L AB76 ####Statement Clerks Manager: FINN BONNER ([phone])[facility] ([facility])[address] [place] [address] PCO2 ARTERIAL 49.1 mm Hg High >35.0-<45.0 [facility] Comment on above: Performed By: #### L [id number] ####Statement Clerks Manager: FINN BONNER ([phone])[facility] ([facility])[address] [place] [address] PH ARTERIAL 7.380 Normal 7.350-7.450 [facility] Comment on above: Performed By: #### L [id number] ####Statement Clerks Manager: FINN BONNER ([phone])[facility] ([facility])[address] [place] [address] PO2 ARTERIAL 70.2 mm Hg Low 80.0-100.0 [facility] Comment on above: Performed By: #### L AB76 ####Statement Clerks Manager: FINN BONNER ([phone])[facility])[address] [place] [address] SOURCE OF OXYGEN Nasal cannula Normal [facility] Comment on above: Result Comment: 6L Performed By: #### L [id number] ####Statement Clerks Manager: FINN BONNER ([phone])[facility] ([facility])[address] [place] [address] Basic metabolic 1998 panelon 02-04-2023 Anion gap [Moles/Vol] 7 mmol/L 3 - 13 mmol/L [facility] Calcium [Mass/Vol] 8.5 mg/dL 8.4 - 10. 4 mg/dL [facility] Chloride [Moles/Vol] 96 mmol/L Low 98 - 10 7 mmol/L [facility] CO2 [Moles/Vol] 30 mmol/L 22 - 30 mmol/L [facility] Creatinine [Mass/Vol] 0.73 mg/dL 0.66 - 1.25 mg/dL [facility] GFR/1.73 sq M.predicted MDRD (S/P/Bld) [Vol rate/Area] - PINF [facility] Glucose [Mass/Vol] 91 mg/dL 70 - 100 mg/dL [facility] Interpretation and review of laboratory results Abnormal [facility] Potassium [Moles/Vol] 4.1 mmol/L 3.5 - 5.1 mmol/L [facility] Sodium [Moles/Vol] 133 mmol/L Low 135 - 145 mmol/L [facility] Urea nitrogen [Mass/Vol] 25 mg/dL High 9 - 20 mg/dL [facility] CARECOORDon 02-04-2023 CARECOORD Normal [facility] CBC (HEMOGRAM)on 02-04-2023 Erythrocyte distribution width (RBC) [Ratio] 17.0 % High 11.5-14.5 [facility] Comment on above: Performed By: #### L [id number] ####Statement Clerks Manager: FINN BONNER ([phone])[address] ERYTHROCYTE MEAN CORPUSCULAR HEMOGLOBIN CONCENTRATION (G/DL) BY AUTOMATED 32.1 % Normal 32.0-36.0 [facility] Comment on above: Performed By: #### L [id number] ####Statement Clerks Manager: FINN BONNER ([phone])[facility])[address] [place] [address] Hematocrit (Bld) [Volume fraction] 32.3 % Low 40.0-52.0 [facility] Comment on above: Performed By: #### L [id number] ####Statement Clerks Manager: FINN BONNER ([phone])[facility])[address] [place] [address] Hemoglobin (Bld) [Mass/Vol] 10.4 g/dL Low 13.0-18.0 [facility] Comment on above: Performed By: #### L [id number] ####Statement Clerks Manager: FINN BONNER ([phone])[facility])[address] [place] [address] MCH (RBC) [Entitic mass] 26.2 pg Normal 26.0-34.0 [facility] Comment on above: Performed By: #### L [id number] ####Statement Clerks Manager: FINN BONNER ([phone])[facility])[address] [place] [address] MCV (RBC) [Entitic vol] 81.6 fL Normal 80.0-98.0 [facility] Comment on above: Performed By: #### L [id number] ####Statement Clerks Manager: FINN BONNER ([phone])[facility] ([facility])[address] [place] [address] Platelet mean volume (Bld) [Entitic vol] 7.7 fL Normal 7.4-12.4 [facility] Comment on above: Performed By: #### L [id number] ####Statement Clerks Manager: FINN BONNER ([phone])[facility])[address] [place] [address] Platelets (Bld) [#/Vol] 322 10*3/uL Normal 140-440 [facility] Comment on above: Performed By: #### L [id number] ####Statement Clerks Manager: FINN BONNER ([phone])[facility])[address] [place] [address] RBC (Bld) [#/Vol] 3.97 10*6/uL Low 4.40-5.90 [facility] Comment on above: Performed By: #### L [id number] ####Statement Clerks Manager: FINN BONNER ([phone])[facility])[address] [place] [address] WBC (Bld) [#/Vol] 10.7 10*3/uL Normal 3.6-10.7 [facility] Comment on above: Performed By: #### L [id number] ####Statement Clerks Manager: FINN BONNER ([phone])[facility])[address] [place] [address] CBC panel Auto (Bld)Ordered By: Phill Hancock on 02-04-2023 Erythrocyte distribution width (RBC) [Ratio] 17.0 % High 11.5 - 14.5 % [facility] Hematocrit (Bld) [Volume fraction] 32.3 % Low 40.0 - 52.0 % [facility] Hemoglobin (Bld) [Mass/Vol] 10.4 g/dL Low 13.0 - 18.0 g/dL [facility] Interpretation and review of laboratory results Abnormal [facility] MCH (RBC) [Entitic mass] 26.2 pg 26.0 - 34.0 pg [facility] MCHC (RBC) [Mass/Vol] 32.1 % 32.0 - 36.0 % [facility] MCV (RBC) [Entitic vol] 81.6 fL 80.0 - 98.0 fL [facility] Platelet mean volume (Bld) [Entitic vol] 7.7 fL 7.4 - 12.4 fL [facility] Platelets (Bld) [#/Vol] 322 10*3/uL 140 - 440 10*3/uL [facility] RBC (Bld) [#/Vol] 3.97 10*6/uL Low 4.40 - 5.9 0 10*6/uL [facility] WBC (Bld) [#/Vol] 10.7 10*3/uL 3.6 - 10.7 10*3/uL [facility] Laboratory - Chemistry and C hemistry - challengeon 02-04-2023 Glucose [Mass/Vol] 82 mg/dL 70 - 100 mg/dL [facility] Glucose [Mass/Vol] 93 mg/dL 70 - 100 mg/dL [facility] Glucose [Mass/Vol] 91 mg/dL 70 - 100 mg/dL [facility] Glucose [Mass/Vol] 91 mg/dL 70 - 100 mg/dL [facility] Base excess Calc (Bld) [Moles/Vol] 2.6 mmol/L -3.0 - 3.0 mmol/L [facility] CO2 (Bld) [Partial pressure] 49.1 mm[Hg] High - PINF [facility] CO2 [Moles/Vol] 29.9 mmol/L High 23.0 - 27.0 mmol/L [facility] HCO3 (Bld) [Moles/Vol] 28.4 mmol/L High 21.0 - 25.0 mmol/L [facility] Oxygen (Bld) [Partial pressure] 70.2 mm[Hg] Low [facility] pH (Bld) 7.380 [pH] 7.350 - 7.450 [facility] Laboratory - Hematology and Cell countson 02-04-2023 Hemoglobin (Bld) [Mass/Vol] 11.0 g/dL Screen Only [facility] No Panel Informationon 02-04 Interpretation and review of laboratory results Normal [facility] Interpretation and review of laboratory results Normal [facility] Interpretation and review of laboratory results Normal [facility] Interpretation and review of laboratory results Normal [facility] Interpretation and review of laboratory results Abnormal [facility] Source Of Oxygen Nasal cannula [facility] Progress Noteon 02-04-2023 Progress Note Normal [facility] Progress Note Normal [facility] Progress Note Normal [facility] Progress Note Normal [facility] Progress Note Normal [facility] XR ABDOMEN 1 VIEWon 02-05-20 XR ABDOMEN 1 VIEW Normal [facility] XR Abdomen Single viewon [facility] Radiology Study observation (narrative) [facility] XR CHEST 1 VIEWon 02-04-2023 XR CHEST 1 VIEW [facility] XR Chest Single viewon 02-04 [facility] Radiology Study observation (narrative) [facility] XR Chest Single viewOrdered By: Glen Hoffman on 02-04-2023 [facility] Work Phone: BASIC METABOLIC PANELon 01-13 Anion gap [Moles/Vol] 7 mmol/L Normal 3-13 [facility] Comment on above: Performed By: #### L [id number] ####Statement Clerks Manager: FINN BONNER ([phone])[facility] ([address] Calcium [Mass/Vol] 8.9 mg/dL Normal 8.4-10.4 [facility] Comment on above: Performed By: #### L AB15 ####Statement Clerks Manager: FINN BONNER ([phone])[facility] ([facility])[address] [place] [address] Chloride [Moles/Vol] 96 mmol/L Low 98-107 [facility] Comment on above: Performed By: #### L AB15 ####Statement Clerks Manager: FINN BONNER ([phone])[facility] ([facility] [place] [address] CO2 [Moles/Vol] 29 mmol/L Normal 22-30 [facility] Comment on above: Performed By: #### L AB15 ####Statement Clerks Manager: FINN BONNER ([phone])[facility] ([facility])[address] [place] [address] Creatinine [Mass/Vol] 0.87 mg/dL Normal 0.66-1.25 [facility] Comment on above: Performed By: #### L AB15 ####Statement Clerks Manager: FINN BONNER ([phone])[facility] ([facility] [place] [address] GLOMERULAR FILTRATION RATE ML/MIN/1.73 SQ M.PREDICTED >90.0 Normal >60.0 [facility] Comment on above: Result Comment: Calc ulation based on the Chronic Kidney Disease Epidemiology Collaboration (CKD-EPI) equation refit without adjustment for race Performed By: #### L AB15 ####Statement Clerks Manager: FINN BONNER ([phone])[facility] ([facility])[address] [place] [address] Glucose [Mass/Vol] 109 mg/dL High 70-100 [facility] Comment on above: Performed By: #### L AB15 ####Statement Clerks Manager: FINN BONNER ([phone])[facility] ([facility])[address] [place] [address] Potassium [Moles/Vol] 4.5 mmol/L Normal 3.5-5.1 [facility] Comment on above: Performed By: #### L AB15 ####Statement Clerks Manager: FINN BONNER ([phone])[facility] ([facility])[address] [place] [address] Sodium [Moles/Vol] 131 mmol/L Low 135-145 [facility] Comment on above: Performed By: #### L AB15 ####Statement Clerks Manager: FINN BONNER ([phone])[facility])[address] [place] [address] Urea nitrogen [Mass/Vol] 28 mg/dL High 9-20 [facility] Comment on above: Performed By: #### L AB15 ####Statement Clerks Manager: FINN BONNER ([phone])[facility] ([facility])[address] [place] [address] BLOOD GAS ARTERIALon 023 Base excess Calc (Bld) [Moles/Vol] 3.4 mmol/L High -3.0-3.0 [facility] Comment on above: Performed By: #### L AB76 ####Statement Clerks Manager: FINN BONNER ([phone])[facility] ([facility])[address] [place] [address] CO2 [Moles/Vol] 30.7 mmol/L High 23.0-27.0 [facility] Comment on above: Performed By: #### L AB76 ####Statement Clerks Manager: FINN BONNER ([phone])[facility])[address] [place] [address] HCO3 (Bld) [Moles/Vol] 29.1 mmol/L High 21.0-25.0 [facility] Comment on above: Performed By: #### L AB76 ####Statement Clerks Manager: FINN BONNER ([phone])[facility] ([facility])[address] [place] [address] [place] Hemoglobin (Bld) [Mass/Vol] 11.3 g/dL Normal Screen Only [facility] Comment on above: Performed By: #### L AB76 ####Statement Clerks Manager: FINN BONNER ([phone])[facility])[address] [place] [address] OXYGEN SATURATION (%) IN ARTERIAL BLOOD 93.3 % Low 95.0-100.0 [facility] Comment on above: Performed By: #### L AB76 ####Statement Clerks Manager: FINN BONNER ([phone])[facility] ([facility])[address] [place] [address] PCO2 ARTERIAL 49.6 mm Hg High >35.0-<45.0 [facility] Comment on above: Performed By: #### L AB76 ####Statement Clerks Manager: FINN BONNER ([phone])[facility] ([facility])[address] [place] [address] PH ARTERIAL 7.387 Normal 7.350-7.450 [facility] Comment on above: Performed By: #### L AB76 ####Statement Clerks Manager: FINN BONNER ([phone])[facility] ([facility])[address] [place] [address] PO2 ARTERIAL 74.1 mm Hg Low 80.0-100.0 [facility] Comment on above: Performed By: #### L AB76 ####Statement Clerks Manager: FINN BONNER ([phone])[facility] ([facility])[address] [place] [address] SOURCE OF OXYGEN Vent Normal [facility] Comment on above: Performed By: #### L AB76 ####Statement Clerks Manager: FINN BONNER ([phone])[facility] ([facility])[address] [place] [address] Basic metabolic 1998 panelon 02-03-2023 Anion gap [Moles/Vol] 7 mmol/L 3 - 13 mmol/L [facility] Calcium [Mass/Vol] 8.9 mg/dL 8.4 - 10. 4 mg/dL [facility] Chloride [Moles/Vol] 96 mmol/L Low 98 - 10 7 mmol/L [facility] CO2 [Moles/Vol] 29 mmol/L 22 - 30 mmol/L [facility] Creatinine [Mass/Vol] 0.87 mg/dL 0.66 - 1.25 mg/dL [facility] GFR/1.73 sq M.predicted MDRD (S/P/Bld) [Vol rate/Area] - PINF [facility] Glucose [Mass/Vol] 109 mg/dL High 70 - 100 mg/dL [facility] Interpretation and review of laboratory results Abnormal [facility] Potassium [Moles/Vol] 4.5 mmol/L 3.5 - 5.1 mmol/L [facility] Sodium [Moles/Vol] 131 mmol/L Low 135 - 145 mmol/L [facility] Urea nitrogen [Mass/Vol] 28 mg/dL High 9 - 20 mg/dL [facility] CBC (HEMOGRAM)on 02-03-2023 Erythrocyte distribution width (RBC) [Ratio] 17.8 % High 11.5-14.5 [facility] Comment on above: Performed By: #### L [id number] ####Statement Clerks Manager: FINN BONNER ([phone])[address] ERYTHROCYTE MEAN CORPUSCULAR HEMOGLOBIN CONCENTRATION (G/DL) BY AUTOMATED 31.4 % Low 32.0-36.0 [facility] Comment on above: Performed By: #### L [id number] ####Statement Clerks Manager: FINN BONNER ([phone])[facility])[address] [place] [address] Hematocrit (Bld) [Volume fraction] 32.9 % Low 40.0-52.0 [facility] Comment on above: Performed By: #### L [id number] ####Statement Clerks Manager: FINN BONNER ([phone])[facility])[address] [place] [address] Hemoglobin (Bld) [Mass/Vol] 10.3 g/dL Low 13.0-18.0 [facility] Comment on above: Performed By: #### L [id number] ####Statement Clerks Manager: FINN BONNER ([phone])[facility])[address] [place] [address] MCH (RBC) [Entitic mass] 25.6 pg Low 26.0-34.0 [facility] Comment on above: Performed By: #### L [id number] ####Statement Clerks Manager: FINN [phone])[facility] ([address] MCV (RBC) [Entitic vol] 81.3 fL Normal 80.0-98.0 [facility] Comment on above: Performed By: #### L [id number] ####Statement Clerks Manager: FINN BONNER ([phone])[facility])[address] [place] [address] Platelet mean volume (Bld) [Entitic vol] 7.2 fL Low 7.4-12.4 [facility] Comment on above: Performed By: #### L [id number] ####Statement Clerks Manager: FINN BONNER ([phone])[facility])[address] [place] [address] Platelets (Bld) [#/Vol] 302 10*3/uL Normal 140-440 [facility] Comment on above: Performed By: #### L [id number] ####Statement Clerks Manager: FINN BONNER ([phone])[facility] ([facility])[address] [place] [address] RBC (Bld) [#/Vol] 4.04 10*6/uL Low 4.40-5.90 [facility] Comment on above: Performed By: #### L [id number] ####Statement Clerks Manager: FINN BONNER ([phone])[facility])[address] [place] [address] WBC (Bld) [#/Vol] 11.2 10*3/uL High 3.6-10.7 [facility] Comment on above: Performed By: #### L [id number] ####Statement Clerks Manager: FINN BONNER ([phone])[facility])[address] [place] [address] CBC panel Auto (Bld)on 02-03 Erythrocyte distribution width (RBC) [Ratio] 17.8 % High 11.5 - 14.5 % [facility] Hematocrit (Bld) [Volume fraction] 32.9 % Low 40.0 - 52.0 % [facility] Hemoglobin (Bld) [Mass/Vol] 10.3 g/dL Low 13.0 - 18.0 g/dL [facility] Interpretation and review of laboratory results Abnormal [facility] MCH (RBC) [Entitic mass] 25.6 pg Low 26.0 - 34.0 pg [facility] MCHC (RBC) [Mass/Vol] 31.4 % Low 32.0 - 36.0 % [facility] MCV (RBC) [Entitic vol] 81.3 fL 80.0 - 98.0 fL [facility] Platelet mean volume (Bld) [Entitic vol] 7.2 fL Low 7.4 - 12.4 fL [facility] Platelets (Bld) [#/Vol] 302 10*3/uL 140 - 440 10*3/uL [facility] RBC (Bld) [#/Vol] 4.04 10*6/uL Low 4.40 - 5.9 0 10*6/uL [facility] WBC (Bld) [#/Vol] 11.2 10*3/uL High 3.6 - 10.7 10*3/uL [facility] Laboratory - Chemistry and C hemistry - challengeon 02-03-2023 Glucose [Mass/Vol] 111 mg/dL High 70 - 100 mg/dL [facility] Glucose [Mass/Vol] 101 mg/dL High 70 - 100 mg/dL [facility] Glucose [Mass/Vol] 113 mg/dL High 70 - 100 mg/dL [facility] Base excess Calc (Bld) [Moles/Vol] 3.4 mmol/L High -3.0 - 3.0 mmol/L [facility] CO2 (Bld) [Partial pressure] 49.6 mm[Hg] High - PINF [facility] CO2 [Moles/Vol] 30.7 mmol/L High 23.0 - 27.0 mmol/L [facility] HCO3 (Bld) [Moles/Vol] 29.1 mmol/L High 21.0 - 25.0 mmol/L [facility] Oxygen (Bld) [Partial pressure] 74.1 mm[Hg] Low [facility] pH (Bld) 7.387 [pH] 7.350 - 7.450 [facility] Glucose [Mass/Vol] 101 mg/dL High 70 - 100 mg/dL [facility] Laboratory - Hematology and Cell countson 02-03-2023 Hemoglobin (Bld) [Mass/Vol] 11.3 g/dL Screen Only [facility] No Panel Informationon 02-03 Interpretation and review of laboratory results Abnormal [facility] Interpretation and review of laboratory results Abnormal [facility] Interpretation and review of laboratory results Abnormal [facility] Source Of Oxygen Vent [facility] Interpretation and review of laboratory results Abnormal [facility] Progress Noteon 02-03-2023 Progress Note [facility] XR ABDOMEN 1 VIEWon 02-04-20 XR ABDOMEN 1 VIEW Normal [facility] XR ABDOMEN 1 VIEW Normal [facility] ealt [facility] XR Abdomen Single viewon [facility] RADIOLOGY SYSTEM [facility] RADIOLOG[facility] RADIOLOGY [facility] RADIOLOGY SYSTEM [facility] Radiology Study observation (narrative) [facility] Radiology Study observation (narrative) [facility] XR CHEST 1 VIEWon 02-03-2023 XR CHEST 1 VIEW Normal [facility] XR Chest Single viewon 02-03 [facility] RADIOLOGY SYSTEM [facility] RADIOLOGY [facility] Radiology Study observation (narrative) [facility] XR Chest Single viewOrdered By: Sina Barton on 02-03-2023 [facility] Work Phone: BASIC METABOLIC PANELon 01-13 Anion gap [Moles/Vol] 7 mmol/L Normal 3-13 [facility] Comment on above: Performed By: #### L AB15 ####Statement Clerks Manager: FINN BONNER ([phone])[facility] [employer] Calcium [Mass/Vol] 8.6 mg/dL Normal 8.4-10.4 [facility] Comment on above: Performed By: #### L AB15 ####Statement Clerks Manager: FINN BONNER ([phone])[address] Chloride [Moles/Vol] 97 mmol/L Low 98-107 [facility] Comment on above: Performed By: #### L AB15 ####Statement Clerks Manager: FINN BONNER ([phone])[facility])[address] [place] [address] CO2 [Moles/Vol] 29 mmol/L Normal 22-30 [facility] Comment on above: Performed By: #### L AB15 ####Statement Clerks Manager: FINN BONNER ([phone])[facility] ([facility])[address] [place] [address] Creatinine [Mass/Vol] 0.75 mg/dL Normal 0.66-1.25 [facility] Comment on above: Performed By: #### L AB15 ####Statement Clerks Manager: FINN BONNER ([phone])[facility] ([facility])[address] [place] [address] GLOMERULAR FILTRATION RATE ML/MIN/1.73 SQ M.PREDICTED >90.0 Normal >60.0 [facility] Comment on above: Result Comment: Calc ulation based on the Chronic Kidney Disease Epidemiology Collaboration (CKD-EPI) equation refit without adjustment for race Performed By: #### L AB15 ####Statement Clerks Manager: FINN BONNER ([phone])[facility] ([facility])[address] [place] [address] Glucose [Mass/Vol] 171 mg/dL High 70-100 [facility] Comment on above: Performed By: #### L AB15 ####Statement Clerks Manager: FINN BONNER ([phone])[facility] ([facility])[address] [place] [address] Potassium [Moles/Vol] 3.9 mmol/L Normal 3.5-5.1 [facility] Comment on above: Performed By: #### L AB15 ####Statement Clerks Manager: FINN BONNER ([phone])[facility] ([facility])[address] [place] [address] [place] Sodium [Moles/Vol] 133 mmol/L Low 135-145 [facility] Comment on above: Performed By: #### L AB15 ####Statement Clerks Manager: FINN BONNER ([phone])[facility] ([facility])[address] [place] [address] [place] Urea nitrogen [Mass/Vol] 32 mg/dL High 9-20 [facility] Comment on above: Performed By: #### L AB15 ####Statement Clerks Manager: FINN BONNER ([phone])[facility])[address] [place] [address] BLOOD GAS ARTERIALon 023 Base excess Calc (Bld) [Moles/Vol] 4.7 mmol/L High -3.0-3.0 [facility] Comment on above: Performed By: #### L AB76 ####Statement Clerks Manager: FINN BONNER ([phone])[facility] ([facility])[address] [place] [address] CO2 [Moles/Vol] 31.7 mmol/L High 23.0-27.0 [facility] Comment on above: Performed By: #### L AB76 ####Statement Clerks Manager: FINN BONNER ([phone])[facility] ([facility])[address] [place] [address] HCO3 (Bld) [Moles/Vol] 30.2 mmol/L High 21.0-25.0 [facility] Comment on above: Performed By: #### L AB76 ####Statement Clerks Manager: FINN BONNER ([phone])[facility])[address] [place] [address] Hemoglobin (Bld) [Mass/Vol] 10.8 g/dL Normal Screen Only [facility] Comment on above: Performed By: #### L AB76 ####Statement Clerks Manager: FINN BONNER ([phone])[facility])[address] [place] [address] OXYGEN SATURATION (%) IN ARTERIAL BLOOD 91.2 % Low 95.0-100.0 [facility] Comment on above: Performed By: #### L AB76 ####Statement Clerks Manager: FINN BONNER ([phone])[facility])[address] [place] [address] PCO2 ARTERIAL 49.2 mm Hg High >35.0-<45.0 [facility] Comment on above: Performed By: #### L AB76 ####Statement Clerks Manager: FINN BONNER ([phone])[facility] ([facility])[address] [place] [address] PH ARTERIAL 7.406 Normal 7.350-7.450 [facility] Comment on above: Performed By: #### L AB76 ####Statement Clerks Manager: FINN BONNER ([phone])[facility] ([facility])[address] [place] [address] PO2 ARTERIAL 67.2 mm Hg Low 80.0-100.0 [facility] Comment on above: Performed By: #### L AB76 ####Statement Clerks Manager: FINN BONNER ([phone])[facility])[address] [place] [address] SOURCE OF OXYGEN ETT Normal [facility] Comment on above: Performed By: #### L AB76 ####Statement Clerks Manager: FINN BONNER ([phone])[facility] ([facility])[address] [place] [address] Basic metabolic 1998 panelon 02-02-2023 Anion gap [Moles/Vol] 7 mmol/L 3 - 13 mmol/L [facility] Calcium [Mass/Vol] 8.6 mg/dL 8.4 - 10. 4 mg/dL [facility] Chloride [Moles/Vol] 97 mmol/L Low 98 - 10 7 mmol/L [facility] CO2 [Moles/Vol] 29 mmol/L 22 - 30 mmol/L [facility] Creatinine [Mass/Vol] 0.75 mg/dL 0.66 - 1.25 mg/dL [facility] GFR/1.73 sq M.predicted MDRD (S/P/Bld) [Vol rate/Area] - PINF [facility] Glucose [Mass/Vol] 171 mg/dL High 70 - 100 mg/dL [facility] Interpretation and review of laboratory results Abnormal [facility] Potassium [Moles/Vol] 3.9 mmol/L 3.5 - 5.1 mmol/L [facility] Sodium [Moles/Vol] 133 mmol/L Low 135 - 145 mmol/L [facility] Urea nitrogen [Mass/Vol] 32 mg/dL High 9 - 20 mg/dL [facility] CARECOORDon 02-02-2023 CARECOORD Normal [facility] CBC (HEMOGRAM)on 02-02-2023 Erythrocyte distribution width (RBC) [Ratio] 17.3 % High 11.5-14.5 [facility] Comment on above: Performed By: #### L [id number] ####Statement Clerks Manager: FINN BONNER ([phone])[facility])[address] [place] [address] ERYTHROCYTE MEAN CORPUSCULAR HEMOGLOBIN CONCENTRATION (G/DL) BY AUTOMATED 31.9 % Low 32.0-36.0 [facility] Comment on above: Performed By: #### L [id number] ####Statement Clerks Manager: FINN BONNER ([phone])[facility])[address] [place] [address] Hematocrit (Bld) [Volume fraction] 31.4 % Low 40.0-52.0 [facility] Comment on above: Performed By: #### L [id number] ####Statement Clerks Manager: FINN BONNER ([phone])[facility])[address] [place] [address] Hemoglobin (Bld) [Mass/Vol] 10.0 g/dL Low 13.0-18.0 [facility] Comment on above: Performed By: #### L [id number] ####Statement Clerks Manager: FINN BONNER ([phone])[facility])[address] [place] [address] MCH (RBC) [Entitic mass] 26.3 pg Normal 26.0-34.0 [facility] Comment on above: Performed By: #### L [id number] ####Statement Clerks Manager: FINN BONNER ([phone])[address] MCV (RBC) [Entitic vol] 82.4 fL Normal 80.0-98.0 [facility] Comment on above: Performed By: #### L [id number] ####Statement Clerks Manager: FINN BONNER ([phone])[facility] ([facility])[address] [place] [address] Platelet mean volume (Bld) [Entitic vol] 7.8 fL Normal 7.4-12.4 [facility] Comment on above: Performed By: #### L [id number] ####Statement Clerks Manager: FINN BONNER ([phone])[facility] ([facility])[address] [place] [address] Platelets (Bld) [#/Vol] 247 10*3/uL Normal 140-440 [facility] Comment on above: Performed By: #### L [id number] ####Statement Clerks Manager: FINN BONNER ([phone])[facility] ([facility])[address] [place] [address] RBC (Bld) [#/Vol] 3.81 10*6/uL Low 4.40-5.90 [facility] Comment on above: Performed By: #### L [id number] ####Statement Clerks Manager: FINN BONNER ([phone])[facility] ([facility])[address] [place] [address] WBC (Bld) [#/Vol] 6.3 10*3/uL Normal 3.6-10.7 [facility] Comment on above: Performed By: #### L [id number] ####Statement Clerks Manager: FINN BONNER ([phone])[facility])[address] [place] [address] CBC panel Auto (Bld)Ordered By: Fara Cifuentes on 02-02-2023 Erythrocyte distribution width (RBC) [Ratio] 17.3 % High 11.5 - 14.5 % [facility] Hematocrit (Bld) [Volume fraction] 31.4 % Low 40.0 - 52.0 % [facility] Hemoglobin (Bld) [Mass/Vol] 10.0 g/dL Low 13.0 - 18.0 g/dL [facility] Interpretation and review of laboratory results Abnormal [facility] MCH (RBC) [Entitic mass] 26.3 pg 26.0 - 34.0 pg [facility] MCHC (RBC) [Mass/Vol] 31.9 % Low 32.0 - 36.0 % [facility] MCV (RBC) [Entitic vol] 82.4 fL 80.0 - 98.0 fL [facility] Platelet mean volume (Bld) [Entitic vol] 7.8 fL 7.4 - 12.4 fL [facility] Platelets (Bld) [#/Vol] 247 10*3/uL 140 - 440 10*3/uL [facility] RBC (Bld) [#/Vol] 3.81 10*6/uL Low 4.40 - 5.9 0 10*6/uL [facility] WBC (Bld) [#/Vol] 6.3 10*3/uL 3.6 - 10.7 10*3/uL [facility] CT ABDOMEN PELVIS W CONTRAST on 02-02-2023 CT ABDOMEN PELVIS W CONTRAST Normal [facility] CT Abdomen and Pelvis W cont rast Sara 02-02-2023 [facility] RADIOLOGY [facility] RADIOLOGY [facility] Radiology Study observation (narrative) [facility] Consulton 02-02-2023 Consult Normal [facility] Laboratory - Chemistry and C hemistry - challengeon 02-02-2023 Glucose [Mass/Vol] 100 mg/dL 70 - 100 mg/dL [facility] Glucose [Mass/Vol] 140 mg/dL High 70 - 100 mg/dL [facility] Glucose [Mass/Vol] 162 mg/dL High 70 - 100 mg/dL [facility] Glucose [Mass/Vol] 164 mg/dL High 70 - 100 mg/dL [facility] Glucose [Mass/Vol] 108 mg/dL High 70 - 100 mg/dL [facility] Laboratory - Chemistry and C hemistry - challengeOrdered By: Kusum Bruce on 02-02-2023 Base excess Calc (Bld) [Moles/Vol] 4.7 mmol/L High -3.0 - 3.0 mmol/L [facility] CO2 (Bld) [Partial pressure] 49.2 mm[Hg] High - PINF [facility] CO2 [Moles/Vol] 31.7 mmol/L High 23.0 - 27.0 mmol/L [facility] HCO3 (Bld) [Moles/Vol] 30.2 mmol/L High 21.0 - 25.0 mmol/L [facility] Oxygen (Bld) [Partial pressure] 67.2 mm[Hg] Low [facility] pH (Bld) 7.406 [pH] 7.350 - 7.450 [facility] Laboratory - Hematology and Cell countsOrdered By: Kusum Bruce on 02-02-2023 Hemoglobin (Bld) [Mass/Vol] 10.8 g/dL Screen Only [facility] No Panel Informationon 02-02 Interpretation and review of laboratory results Normal [facility] Interpretation and review of laboratory results Abnormal [facility] Interpretation and review of laboratory results Abnormal [facility] Interpretation and review of laboratory results Abnormal [facility] Interpretation and review of laboratory results Abnormal [facility] No Panel InformationOrdered By: Kusum Bruce on 02-02-2023 Interpretation and review of laboratory results Abnormal [facility] Source Of Oxygen ETT [facility] Progress Noteon 02-02-2023 Progress Note Normal [facility] Progress Note Normal [facility] Progress Note Normal [facility] Progress Note Normal [facility] XR ABDOMEN 1 VIEWon 02-03-20 23 XR ABDOMEN 1 VIEW Normal [facility] XR Abdomen Single viewon [facility] Radiology Study observation (narrative) [facility] XR CHEST 1 VIEWon 02-02-2023 XR CHEST 1 VIEW Normal [facility] XR CHEST 1 VIEW Normal [facility] XR Chest Single viewon 02-02 [facility] RADIOLOGY SYSTEM [facility] Radiology Study observation (narrative) [facility] Radiology Study observation (narrative) [facility] XR Chest Single viewOrdered By: Casa Wright on 02-02-2023 [facility] Work Phone: BASIC METABOLIC PANELon 01-13 Anion gap [Moles/Vol] 8 mmol/L Normal 3-13 [facility] Comment on above: Performed By: #### L [id number] ####Statement Clerks Manager: FINN BONNER ([phone])[facility] [place] [address] Calcium [Mass/Vol] 9.2 mg/dL Normal 8.4-10.4 [facility] Comment on above: Performed By: #### L AB15 ####Statement Clerks Manager: FINN BONNER ([phone])[facility] [place] [address] Chloride [Moles/Vol] 98 mmol/L Normal 98-107 [facility] Comment on above: Performed By: #### L AB15 ####Statement Clerks Manager: FINN BONNER ([phone])[facility] ([facility])[address] [place] [address] CO2 [Moles/Vol] 29 mmol/L Normal 22-30 [facility] Comment on above: Performed By: #### L AB15 ####Statement Clerks Manager: FINN BONNER ([phone])[facility] ([facility])[address] [place] [address] Creatinine [Mass/Vol] 0.76 mg/dL Normal 0.66-1.25 [facility] Comment on above: Performed By: #### L AB15 ####Statement Clerks Manager: FINN BONNER ([phone])[facility])[address] [place] [address] GLOMERULAR FILTRATION RATE ML/MIN/1.73 SQ M.PREDICTED >90.0 Normal >60.0 [facility] Comment on above: Result Comment: Calc ulation based on the Chronic Kidney Disease Epidemiology Collaboration (CKD-EPI) equation refit without adjustment for race Performed By: #### L AB15 ####Statement Clerks Manager: FINN BONNER ([phone])[facility] ([facility])[address] [place] [address] [place] Glucose [Mass/Vol] 106 mg/dL High 70-100 [facility] Comment on above: Performed By: #### L AB15 ####Statement Clerks Manager: FINN BONNER ([phone])[facility] ([facility])[address] [place] [address] [place] Potassium [Moles/Vol] 4.6 mmol/L Normal 3.5-5.1 [facility] Comment on above: Performed By: #### L AB15 ####Statement Clerks Manager: FINN BONNER ([phone])[facility] ([facility])[address] [place] [address] Sodium [Moles/Vol] 135 mmol/L Normal 135-145 [facility] Comment on above: Performed By: #### L AB15 ####Statement Clerks Manager: FINN BONNER ([phone])[facility] ([facility])[address] [place] [address] Urea nitrogen [Mass/Vol] 36 mg/dL High 9-20 [facility] Comment on above: Performed By: #### L AB15 ####Statement Clerks Manager: FINN BONNER ([phone])[facility] ([facility])[address] [place] [address] BLOOD GAS ARTERIALon 023 Base excess Calc (Bld) [Moles/Vol] 7.6 mmol/L High -3.0-3.0 [facility] Comment on above: Performed By: #### L [id number] ####Statement Clerks Manager: FINN BONNER ([phone])[facility] ([facility])[address] [place] [address] CO2 [Moles/Vol] 35.2 mmol/L High 23.0-27.0 [facility] Comment on above: Performed By: #### L [id number] ####Statement Clerks Manager: FINN BONNER ([phone])[facility] ([facility])[address] [place] [address] [place] HCO3 (Bld) [Moles/Vol] 33.5 mmol/L High 21.0-25.0 [facility] Comment on above: Performed By: #### L [id number] ####Statement Clerks Manager: FINN BONNER ([phone])[facility] ([facility])[address] [place] [address] [place] Hemoglobin (Bld) [Mass/Vol] 10.2 g/dL Normal Screen Only [facility] Comment on above: Performed By: #### L [id number] ####Statement Clerks Manager: FINN BONNER ([phone])[facility] ([facility])[address] [place] [address] OXYGEN SATURATION (%) IN ARTERIAL BLOOD 90.8 % Low 95.0-100.0 [facility] Comment on above: Performed By: #### L [id number] ####Statement Clerks Manager: FINN BONNER ([phone])[facility] ([facility])[address] [place] [address] PCO2 ARTERIAL 54.7 mm Hg High >35.0-<45.0 [facility] Comment on above: Performed By: #### L [id number] ####Statement Clerks Manager: FINN BNONER ([phone])[facility] ([facility])[address] [place] [address] PH ARTERIAL 7.405 Normal 7.350-7.450 [facility] Comment on above: Performed By: #### L [id number] ####Statement Clerks Manager: FINN BONNER ([phone])[facility] ([facility])[address] [place] [address] PO2 ARTERIAL 62.9 mm Hg Low 80.0-100.0 [facility] Comment on above: Performed By: #### L AB76 ####Statement Clerks Manager: FINN BONNER ([phone])[facility])[address] [place] [address] SOURCE OF OXYGEN ETT Normal [facility] Comment on above: Performed By: #### L [id number] ####Statement Clerks Manager: FINN BONNER ([phone])[facility] ([facility])[address] [place] [address] Bacteria identified Cx Nom ( Bld)on 02-01-2023 Interpretation and review of laboratory results Normal [facility] Basic metabolic 1998 panelon 02-01-2023 Anion gap [Moles/Vol] 8 mmol/L 3 - 13 mmol/L [facility] Calcium [Mass/Vol] 9.2 mg/dL 8.4 - 10. 4 mg/dL [facility] Chloride [Moles/Vol] 98 mmol/L 98 - 10 7 mmol/L [facility] CO2 [Moles/Vol] 29 mmol/L 22 - 30 mmol/L [facility] Creatinine [Mass/Vol] 0.76 mg/dL 0.66 - 1.25 mg/dL [facility] GFR/1.73 sq M.predicted MDRD (S/P/Bld) [Vol rate/Area] - PINF [facility] Glucose [Mass/Vol] 106 mg/dL High 70 - 100 mg/dL [facility] Interpretation and review of laboratory results Abnormal [facility] Potassium [Moles/Vol] 4.6 mmol/L 3.5 - 5.1 mmol/L [facility] Sodium [Moles/Vol] 135 mmol/L 135 - 145 mmol/L [facility] Urea nitrogen [Mass/Vol] 36 mg/dL High 9 - 20 mg/dL [facility] CBC (HEMOGRAM)on 02-01-2023 Erythrocyte distribution width (RBC) [Ratio] 17.4 % High 11.5-14.5 [facility] Comment on above: Performed By: #### L [id number] ####Statement Clerks Manager: FINN BONNER ([phone])[address] ERYTHROCYTE MEAN CORPUSCULAR HEMOGLOBIN CONCENTRATION (G/DL) BY AUTOMATED 32.2 % Normal 32.0-36.0 [facility] Comment on above: Performed By: #### L [id number] ####Statement Clerks Manager: FINN BONNER ([phone])[facility])[address] [place] [address] Hematocrit (Bld) [Volume fraction] 29.5 % Low 40.0-52.0 [facility] Comment on above: Performed By: #### L [id number] ####Statement Clerks Manager: FINN BONNER ([phone])[facility])[address] [place] [address] Hemoglobin (Bld) [Mass/Vol] 9.5 g/dL Low 13.0-18.0 [facility] Comment on above: Performed By: #### L [id number] ####Statement Clerks Manager: FINN BONNER ([phone])[facility] ([facility])[address] [place] [address] MCH (RBC) [Entitic mass] 26.4 pg Normal 26.0-34.0 [facility] Comment on above: Performed By: #### L [id number] ####Statement Clerks Manager: FINN BONNER ([phone])[facility])[address] [place] [address] MCV (RBC) [Entitic vol] 82.0 fL Normal 80.0-98.0 [facility] Comment on above: Performed By: #### L [id number] ####Statement Clerks Manager: FINN BONNER ([phone])[facility])[address] [place] [address] Platelet mean volume (Bld) [Entitic vol] 7.6 fL Normal 7.4-12.4 [facility] Comment on above: Performed By: #### L [id number] ####Statement Clerks Manager: FINN BONNER ([phone])[facility] ([facility])[address] [place] [address] Platelets (Bld) [#/Vol] 262 10*3/uL Normal 140-440 [facility] Comment on above: Performed By: #### L [id number] ####Statement Clerks Manager: FINN BONNER ([phone])[facility])[address] [place] [address] RBC (Bld) [#/Vol] 3.60 10*6/uL Low 4.40-5.90 [facility] Comment on above: Performed By: #### L [id number] ####Statement Clerks Manager: FINN BONNER ([phone])[facility])[address] [place] [address] WBC (Bld) [#/Vol] 6.7 10*3/uL Normal 3.6-10.7 [facility] Comment on above: Performed By: #### L [id number] ####Statement Clerks Manager: FINN BONNER ([phone])[facility] ([facility])[address] [place] [address] CBC panel Auto (Bld)on 02-01 Erythrocyte distribution width (RBC) [Ratio] 17.4 % High 11.5 - 14.5 % [facility] Hematocrit (Bld) [Volume fraction] 29.5 % Low 40.0 - 52.0 % [facility] Hemoglobin (Bld) [Mass/Vol] 9.5 g/dL Low 13.0 - 18.0 g/dL [facility] Interpretation and review of laboratory results Abnormal [facility] MCH (RBC) [Entitic mass] 26.4 pg 26.0 - 34.0 pg [facility] MCHC (RBC) [Mass/Vol] 32.2 % 32.0 - 36.0 % [facility] MCV (RBC) [Entitic vol] 82.0 fL 80.0 - 98.0 fL [facility] Platelet mean volume (Bld) [Entitic vol] 7.6 fL 7.4 - 12.4 fL [facility] Platelets (Bld) [#/Vol] 262 10*3/uL 140 - 440 10*3/uL [facility] RBC (Bld) [#/Vol] 3.60 10*6/uL Low 4.40 - 5.9 0 10*6/uL [facility] WBC (Bld) [#/Vol] 6.7 10*3/uL 3.6 - 10.7 10*3/uL [facility] Laboratory - Chemistry and C hemistry - challengeon 02-01-2023 Glucose [Mass/Vol] 144 mg/dL High 70 - 100 mg/dL [facility] [employer] Glucose [Mass/Vol] 113 mg/dL High 70 - 100 mg/dL [facility] Glucose [Mass/Vol] 109 mg/dL High 70 - 100 mg/dL [facility] Laboratory - Chemistry and C hemistry - challengeOrdered By: Maude Rose on 02-01-2023 Base excess Calc (Bld) [Moles/Vol] 7.6 mmol/L High -3.0 - 3.0 mmol/L [facility] CO2 (Bld) [Partial pressure] 54.7 mm[Hg] High - PINF [facility] [employer] CO2 [Moles/Vol] 35.2 mmol/L High 23.0 - 27.0 mmol/L [facility] HCO3 (Bld) [Moles/Vol] 33.5 mmol/L High 21.0 - 25.0 mmol/L [facility] Oxygen (Bld) [Partial pressure] 62.9 mm[Hg] Low [facility] pH (Bld) 7.405 [pH] 7.350 - 7.450 [facility] Laboratory - Hematology and Cell countsOrdered By: Maude Rose on 02-01-2023 Hemoglobin (Bld) [Mass/Vol] 10.2 g/dL Screen Only [facility] Laboratory - Microbiology an d Antimicrobial susceptibilityon 02-01-2023 Bacteria identified Cx Nom (Bld) No growth at 5 days [facility] No Panel Informationon 02-01 Interpretation and review of laboratory results Abnormal [facility] Interpretation and review of laboratory results Abnormal [facility] Interpretation and review of laboratory results Abnormal [facility] No Panel InformationOrdered By: Maude Rose on 02-01-2023 Interpretation and review of laboratory results Abnormal [facility] Source Of Oxygen ETT [facility] Progress Noteon 02-01-2023 Progress Note [facility] Progress Note Normal [facility] Progress Note Normal [facility] Progress Note PEEP increased to 8 per hospital policy Normal [facility] Progress Note Normal [facility] XR CHEST 1 VIEWon 02-01-2023 XR CHEST 1 VIEW Normal [facility] XR Chest Single viewon 02-01 [facility] RADIOLOG[facility] SYSTEM [facility] Radiology Study observation (narrative) [facility] XR Chest Single viewOrdered By: Kelton Cote on 02-01-2023 [facility] Work Phone: BASIC METABOLIC PANELon 01-13 Anion gap [Moles/Vol] 7 mmol/L Normal 3-13 [facility] Comment on above: Performed By: #### L AB15 ####Statement Clerks Manager: FINN BONNER ([phone])[facility] ([facility] Calcium [Mass/Vol] 9.2 mg/dL Normal 8.4-10.4 [facility] Comment on above: Performed By: #### L AB15 ####Statement Clerks Manager: FINN BONNER ([phone])[facility] ([facility])[address] [place] [address] Chloride [Moles/Vol] 97 mmol/L Low 98-107 [facility] Comment on above: Performed By: #### L AB15 ####Statement Clerks Manager: FINN BONNER ([phone])[facility] ([facility] [place] [address] CO2 [Moles/Vol] 33 mmol/L High 22-30 [facility] Comment on above: Performed By: #### L AB15 ####Statement Clerks Manager: FINN BONNER ([phone])[facility] ([facility])[address] [place] [address] Creatinine [Mass/Vol] 0.98 mg/dL Normal 0.66-1.25 [facility] Comment on above: Performed By: #### L AB15 ####Statement Clerks Manager: FINN BONNER ([phone])[facility] ([facility])[address] [place] [address] GLOMERULAR FILTRATION RATE ML/MIN/1.73 SQ M.PREDICTED >90.0 Normal >60.0 [facility] Comment on above: Result Comment: Calc ulation based on the Chronic Kidney Disease Epidemiology Collaboration (CKD-EPI) equation refit without adjustment for race Performed By: #### L AB15 ####Statement Clerks Manager: FINN BONNER ([phone])[facility] ([facility])[address] [place] [address] [place] Glucose [Mass/Vol] 113 mg/dL High 70-100 [facility] Comment on above: Performed By: #### L AB15 ####Statement Clerks Manager: FINN BONNER ([phone])[facility] ([facility])[address] [place] [address] Potassium [Moles/Vol] 4.6 mmol/L Normal 3.5-5.1 [facility] Comment on above: Performed By: #### L AB15 ####Statement Clerks Manager: FINN BONNER ([phone])[facility])[address] [place] [address] Sodium [Moles/Vol] 137 mmol/L Normal 135-145 [facility] Comment on above: Performed By: #### L AB15 ####Statement Clerks Manager: FINN BONNER ([phone])[facility] ([facility])[address] [place] [address] Urea nitrogen [Mass/Vol] 37 mg/dL High 9-20 [facility] Comment on above: Performed By: #### L AB15 ####Statement Clerks Manager: FINN BONNER ([phone])[facility])[address] [place] [address] BLOOD GAS ARTERIALon 023 Base excess Calc (Bld) [Moles/Vol] 7.0 mmol/L High -3.0-3.0 [facility] Comment on above: Performed By: #### L [id number] ####Statement Clerks Manager: FINN BONNER ([phone])[facility] ([facility])[address] [place] [address] CO2 [Moles/Vol] 36.0 mmol/L High 23.0-27.0 [facility] Comment on above: Performed By: #### L AB76 ####Statement Clerks Manager: FINN BONNER ([phone])[facility] ([facility])[address] [place] [address] HCO3 (Bld) [Moles/Vol] 34.0 mmol/L High 21.0-25.0 [facility] Comment on above: Performed By: #### L [id number] ####Statement Clerks Manager: FINN BONNER ([phone])[facility])[address] [place] [address] Hemoglobin (Bld) [Mass/Vol] 10.1 g/dL Normal Screen Only [facility] Comment on above: Performed By: #### L AB76 ####Statement Clerks Manager: FINN [phone])[facility] [place] [address] OXYGEN SATURATION (%) IN ARTERIAL BLOOD 91.9 % Low 95.0-100.0 [facility] Comment on above: Performed By: #### L AB76 ####Statement Clerks Manager: FINN BONNER ([phone])[facility] ([facility])[address] [place] [address] PCO2 ARTERIAL 62.8 mm Hg High >35.0-<45.0 [facility] Comment on above: Performed By: #### L [id number] ####Statement Clerks Manager: FINN BONNER ([phone])[facility] ([facility])[address] [place] [address] PH ARTERIAL 7.352 Normal 7.350-7.450 [facility] Comment on above: Performed By: #### L [id number] ####Statement Clerks Manager: FINN BONNER ([phone])[facility] ([facility])[address] [place] [address] PO2 ARTERIAL 70.7 mm Hg Low 80.0-100.0 [facility] Comment on above: Performed By: #### L AB76 ####Statement Clerks Manager: FINN BONNER ([phone])[facility])[address] [place] [address] SOURCE OF OXYGEN Vent Normal [facility] Comment on above: Performed By: #### L [id number] ####Statement Clerks Manager: FINN BONNER ([phone])[facility] ([facility])[address] [place] [address] Basic metabolic 1998 panelon 01-31-2023 Anion gap [Moles/Vol] 7 mmol/L 3 - 13 mmol/L [facility] Calcium [Mass/Vol] 9.2 mg/dL 8.4 - 10. 4 mg/dL [facility] Chloride [Moles/Vol] 97 mmol/L Low 98 - 10 7 mmol/L [facility] CO2 [Moles/Vol] 33 mmol/L High 22 - 30 mmol/L [facility] Creatinine [Mass/Vol] 0.98 mg/dL 0.66 - 1.25 mg/dL [facility] GFR/1.73 sq M.predicted MDRD (S/P/Bld) [Vol rate/Area] - PINF [facility] Glucose [Mass/Vol] 113 mg/dL High 70 - 100 mg/dL [facility] Interpretation and review of laboratory results Abnormal [facility] Potassium [Moles/Vol] 4.6 mmol/L 3.5 - 5.1 mmol/L [facility] Sodium [Moles/Vol] 137 mmol/L 135 - 145 mmol/L [facility] Urea nitrogen [Mass/Vol] 37 mg/dL High 9 - 20 mg/dL [facility] CARECOORDon 01-31-2023 CARECOORD Normal [facility] CBC (HEMOGRAM)on 01-31-2023 Erythrocyte distribution width (RBC) [Ratio] 18.0 % High 11.5-14.5 [facility] Comment on above: Performed By: #### L [id number] ####Statement Clerks Manager: FINN BONNER ([phone])[address] ERYTHROCYTE MEAN CORPUSCULAR HEMOGLOBIN CONCENTRATION (G/DL) BY AUTOMATED 31.8 % Low 32.0-36.0 [facility] Comment on above: Performed By: #### L [id number] ####Statement Clerks Manager: FINN BONNER ([phone])[address] Hematocrit (Bld) [Volume fraction] 28.3 % Low 40.0-52.0 [facility] Comment on above: Performed By: #### L [id number] ####Statement Clerks Manager: FINN BONNER ([phone])[facility])[address] [place] [address] Hemoglobin (Bld) [Mass/Vol] 9.0 g/dL Low 13.0-18.0 [facility] Comment on above: Performed By: #### L [id number] ####Statement Clerks Manager: FINN BONNER ([phone])[facility])[address] [place] [address] MCH (RBC) [Entitic mass] 26.1 pg Normal 26.0-34.0 [facility] Comment on above: Performed By: #### L [id number] ####Statement Clerks Manager: FINN BONNER ([phone])[facility])[address] [place] [address] MCV (RBC) [Entitic vol] 82.1 fL Normal 80.0-98.0 [facility] Comment on above: Performed By: #### L [id number] ####Statement Clerks Manager: FINN BONNER ([phone])[facility] ([facility])[address] [place] [address] Platelet mean volume (Bld) [Entitic vol] 7.1 fL Low 7.4-12.4 [facility] Comment on above: Performed By: #### L [id number] ####Statement Clerks Manager: FINN BONNER ([phone])[facility])[address] [place] [address] Platelets (Bld) [#/Vol] 241 10*3/uL Normal 140-440 [facility] Comment on above: Performed By: #### L [id number] ####Statement Clerks Manager: FINN BONNER ([phone])[facility])[address] [place] [address] RBC (Bld) [#/Vol] 3.45 10*6/uL Low 4.40-5.90 [facility] Comment on above: Performed By: #### L [id number] ####Statement Clerks Manager: FINN BONNER ([phone])[facility])[address] [place] [address] WBC (Bld) [#/Vol] 6.3 10*3/uL Normal 3.6-10.7 [facility] Comment on above: Performed By: #### L [id number] ####Statement Clerks Manager: FINN BONNER ([phone])[facility])[address] [place] [address] CBC panel Auto (Bld)Ordered By: Doyle Mariano on 01-31-2023 Erythrocyte distribution width (RBC) [Ratio] 18.0 % High 11.5 - 14.5 % [facility] Hematocrit (Bld) [Volume fraction] 28.3 % Low 40.0 - 52.0 % [facility] Hemoglobin (Bld) [Mass/Vol] 9.0 g/dL Low 13.0 - 18.0 g/dL [facility] Interpretation and review of laboratory results Abnormal [facility] MCH (RBC) [Entitic mass] 26.1 pg 26.0 - 34.0 pg [facility] MCHC (RBC) [Mass/Vol] 31.8 % Low 32.0 - 36.0 % [facility] MCV (RBC) [Entitic vol] 82.1 fL 80.0 - 98.0 fL [facility] Platelet mean volume (Bld) [Entitic vol] 7.1 fL Low 7.4 - 12.4 fL [facility] Platelets (Bld) [#/Vol] 241 10*3/uL 140 - 440 10*3/uL [facility] RBC (Bld) [#/Vol] 3.45 10*6/uL Low 4.40 - 5.9 0 10*6/uL [facility] WBC (Bld) [#/Vol] 6.3 10*3/uL 3.6 - 10.7 10*3/uL [facility] Laboratory - Chemistry and C hemistry - challengeon 01-31-2023 Glucose [Mass/Vol] 170 mg/dL High 70 - 100 mg/dL [facility] Glucose [Mass/Vol] 160 mg/dL High 70 - 100 mg/dL [facility] Glucose [Mass/Vol] 107 mg/dL High 70 - 100 mg/dL [facility] Base excess Calc (Bld) [Moles/Vol] 7.6 mmol/L High -3.0 - 3.0 mmol/L [facility] CO2 (Bld) [Partial pressure] 53.2 mm[Hg] High [facility] HCO3 (Bld) [Moles/Vol] 33.7 mmol/L High 21.0 - 25.0 mmol/L [facility] Oxygen (Bld) [Partial pressure] 87.1 mm[Hg] [facility] pH (Bld) 7.409 [pH] 7.350 - 7.450 pH [facility] Potassium [Moles/Vol] 4.6 mmol/L 3.5 - 5.1 mmol/L [facility] Sodium [Moles/Vol] 139 mmol/L 133 - 145 mmol/L [facility] Glucose [Mass/Vol] 118 mg/dL High 70 - 100 mg/dL [facility] Laboratory - Chemistry and C hemistry - challengeOrdered By: Rosario Ordaz on 01-31-2023 Base excess Calc (Bld) [Moles/Vol] 7.0 mmol/L High -3.0 - 3.0 mmol/L [facility] CO2 (Bld) [Partial pressure] 62.8 mm[Hg] High - PINF [facility] CO2 [Moles/Vol] 36.0 mmol/L High 23.0 - 27.0 mmol/L [facility] HCO3 (Bld) [Moles/Vol] 34.0 mmol/L High 21.0 - 25.0 mmol/L [facility] Oxygen (Bld) [Partial pressure] 70.7 mm[Hg] Low [facility] pH (Bld) 7.352 [pH] 7.350 - 7.450 [facility] Laboratory - Hematology and Cell countsOrdered By: Rosario Ordaz on 01-31-2023 Hemoglobin (Bld) [Mass/Vol] 10.1 g/dL Screen Only [facility] Laboratory - Hematology and Cell countson 01-31-2023 Hematocrit (BldV) [Volume fraction] 35 % Low 37 - 52 % [facility] No Panel Informationon 01-31 Interpretation and review of laboratory results Abnormal [facility] Interpretation and review of laboratory results Abnormal [facility] Interpretation and review of laboratory results Abnormal [facility] [id number] [facility] Interpretation and review of laboratory results Abnormal [facility] Interpretation and review of laboratory results Abnormal [facility] No Panel InformationOrdered By: Rosario Ordaz on 01-31-2023 Interpretation and review of laboratory results Abnormal [facility] Source [facility] Progress Noteon 01-31-2023 Progress Note Normal [facility] Progress Note Normal [facility] Progress Note Normal [facility] Progress Note Normal [facility] XR CHEST 1 VIEWon 01-31-2023 XR CHEST 1 VIEW Normal [facility] XR Chest Single viewon 01-31 [facility] Radiology Study observation (narrative) [facility] BASIC METABOLIC PANELon 01-12 Anion gap [Moles/Vol] 6 mmol/L Normal 3-13 [facility] Comment on above: Performed By: #### L [id number] ####Statement Clerks Manager: FINN BONNER ([phone])[facility] ([facility])[address] [place] [address] Calcium [Mass/Vol] 8.5 mg/dL Normal 8.4-10.4 [facility] Comment on above: Performed By: #### L AB15 ####Statement Clerks Manager: FINN BONNER ([phone])[facility] ([facility])[address] [place] [address] Chloride [Moles/Vol] 97 mmol/L Low 98-107 [facility] Comment on above: Performed By: #### L AB15 ####Statement Clerks Manager: FINN BONNER ([phone])[facility] ([facility])[address] [place] [address] CO2 [Moles/Vol] 35 mmol/L High 22-30 [facility] Comment on above: Performed By: #### L AB15 ####Statement Clerks Manager: FINN BONNER ([phone])[facility] ([facility])[address] [place] [address] Creatinine [Mass/Vol] 0.84 mg/dL Normal 0.66-1.25 [facility] Comment on above: Performed By: #### L AB15 ####Statement Clerks Manager: FINN BONNRE ([phone])[facility])[address] [place] [address] GLOMERULAR FILTRATION RATE ML/MIN/1.73 SQ M.PREDICTED >90.0 Normal >60.0 [facility] Comment on above: Result Comment: Calc ulation based on the Chronic Kidney Disease Epidemiology Collaboration (CKD-EPI) equation refit without adjustment for race Performed By: #### L AB15 ####Statement Clerks Manager: FINN BONNER ([phone])[facility] ([facility])[address] [place] [address] Glucose [Mass/Vol] 95 mg/dL Normal 70-100 [facility] Comment on above: Performed By: #### L AB15 ####Statement Clerks Manager: FINN BONNER ([phone])[facility] ([facility])[address] [place] [address] Potassium [Moles/Vol] 5.1 mmol/L Normal 3.5-5.1 [facility] Comment on above: Performed By: #### L AB15 ####Statement Clerks Manager: FINN BONNER ([phone])[facility])[address] [place] [address] Sodium [Moles/Vol] 138 mmol/L Normal 135-145 [facility] Comment on above: Performed By: #### L AB15 ####Statement Clerks Manager: FINN BONNER ([phone])[facility] ([facility])[address] [place] [address] Urea nitrogen [Mass/Vol] 28 mg/dL High 9-20 [facility] Comment on above: Performed By: #### L AB15 ####Statement Clerks Manager: FINN BONNER ([phone])[facility] ([facility])[address] [place] [address] BLOOD GAS ARTERIALon -- 023 Base excess Calc (Bld) [Moles/Vol] 6.1 mmol/L High -3.0-3.0 [facility] Comment on above: Performed By: #### L [id number] ####Statement Clerks Manager: FINN BONNER ([phone])[facility] ([facility])[address] [place] [address] [place] CO2 [Moles/Vol] 35.0 mmol/L High 23.0-27.0 [facility] Comment on above: Performed By: #### L [id number] ####Statement Clerks Manager: FINN BONNER ([phone])[facility] ([facility])[address] [place] [address] HCO3 (Bld) [Moles/Vol] 33.1 mmol/L High 21.0-25.0 [facility] Comment on above: Performed By: #### L [id number] ####Statement Clerks Manager: FINN BONNER ([phone])[facility])[address] [place] [address] Hemoglobin (Bld) [Mass/Vol] 10.1 g/dL Normal Screen Only [facility] Comment on above: Performed By: #### L AB76 ####Statement Clerks Manager: FINN BONNER ([phone])[facility])[address] [place] [address] OXYGEN SATURATION (%) IN ARTERIAL BLOOD 95.6 % Normal 95.0-100.0 [facility] Comment on above: Performed By: #### L [id number] ####Statement Clerks Manager: FINN BONNER ([phone])[facility] ([facility])[address] [place] [address] PCO2 ARTERIAL 61.7 mm Hg High >35.0-<45.0 [facility] Comment on above: Performed By: #### L [id number] ####Statement Clerks Manager: FINN BONNER ([phone])[facility])[address] [place] [address] PH ARTERIAL 7.347 Low 7.350-7.450 [facility] Comment on above: Performed By: #### L [id number] ####Statement Clerks Manager: FINN BONNER ([phone])[facility])[address] [place] [address] PO2 ARTERIAL 81.0 mm Hg Normal 80.0-100.0 [facility] Comment on above: Performed By: #### L [id number] ####Statement Clerks Manager: FINN BONNER ([phone])[facility])[address] [place] [address] SOURCE OF OXYGEN Vent Normal [facility] Comment on above: Result Comment: FiO2 60% Performed By: #### L [id number] ####Statement Clerks Manager: FINN BONNER ([phone])[facility] ([facility])[address] [place] [address] Base excess Calc (Bld) [Moles/Vol] 3.4 mmol/L High -3.0-3.0 [facility] Comment on above: Performed By: #### L [id number] ####Statement Clerks Manager: FINN BONNER ([phone])[facility] ([facility])[address] [place] [address] CO2 [Moles/Vol] 37.4 mmol/L High 23.0-27.0 [facility] Comment on above: Performed By: #### L [id number] ####Statement Clerks Manager: FINN BONNER ([phone])[facility])[address] [place] [address] HCO3 (Bld) [Moles/Vol] 34.4 mmol/L High 21.0-25.0 [facility] Comment on above: Performed By: #### L [id number] ####Statement Clerks Manager: FINN BONNER ([phone])[facility] ([facility])[address] [place] [address] Hemoglobin (Bld) [Mass/Vol] 11.3 g/dL Normal Screen Only [facility] Comment on above: Performed By: #### L [id number] ####Statement Clerks Manager: FINN BONNER ([phone])[facility])[address] [place] [address] OXYGEN SATURATION (%) IN ARTERIAL BLOOD 93.4 % Low 95.0-100.0 [facility] Comment on above: Performed By: #### L [id number] ####Statement Clerks Manager: FINN BONNER ([phone])[facility])[address] [place] [address] PCO2 ARTERIAL 97.6 mm Hg Critically high >35.0-<45.0 [facility] Comment on above: Performed By: #### L [id number] ####Statement Clerks Manager: FINN BONNER ([phone])[facility])[address] [place] [address] PH ARTERIAL 7.165 Critically low 7.350-7.450 [facility] Comment on above: Performed By: #### L [id number] ####Statement Clerks Manager: FINN BONNER ([phone])[facility] ([facility])[address] [place] [address] PO2 ARTERIAL 86.5 mm Hg Normal 80.0-100.0 [facility] Comment on above: Performed By: #### L [id number] ####Statement Clerks Manager: FINN BONNER ([phone])[facility] ([facility])[address] [place] [address] SOURCE OF OXYGEN Vent Normal [facility] Comment on above: Result Comment: 50% FiO2 Performed By: #### L [id number] ####Statement Clerks Manager: FINN BONNER ([phone])[facility] ([facility])[address] [place] [address] Base excess Calc (Bld) [Moles/Vol] 5.0 mmol/L High -3.0-3.0 [facility] Comment on above: Order Comment: 30 mi n after vent changes Performed By: #### L [id number] ####Statement Clerks Manager: FINN BONNER ([phone])[facility] ([facility])[address] [place] [address] CO2 [Moles/Vol] 35.7 mmol/L High 23.0-27.0 [facility] Comment on above: Order Comment: 30 mi n after vent changes Performed By: #### L [id number] ####Statement Clerks Manager: FINN BONNER ([phone])[facility] ([facility])[address] [place] [address] HCO3 (Bld) [Moles/Vol] 33.4 mmol/L High 21.0-25.0 [facility] Comment on above: Order Comment: 30 mi n after vent changes Performed By: #### L [id number] ####Statement Clerks Manager: FINN BONNER ([phone])[facility])[address] [place] [address] Hemoglobin (Bld) [Mass/Vol] 10.3 g/dL Normal Screen Only [facility] Comment on above: Order Comment: 30 mi n after vent changes Performed By: #### L [id number] ####Statement Clerks Manager: FINN BONNER ([phone])[facility] ([facility])[address] [place] [address] OXYGEN SATURATION (%) IN ARTERIAL BLOOD 98.3 % Normal 95.0-100.0 [facility] Comment on above: Order Comment: 30 mi n after vent changes Performed By: #### L [id number] ####Statement Clerks Manager: FINN BONNER ([phone])[facility] ([facility])[address] [place] [address] PCO2 ARTERIAL 73.6 mm Hg High >35.0-<45.0 [facility] Comment on above: Order Comment: 30 mi n after vent changes Performed By: #### L [id number] ####Statement Clerks Manager: FINN BONNER ([phone])[facility] ([facility])[address] [place] [address] PH ARTERIAL 7.275 Low 7.350-7.450 [facility] Comment on above: Order Comment: 30 mi n after vent changes Performed By: #### L [id number] ####Statement Clerks Manager: FINN BONNER ([phone])[facility] ([facility])[address] [place] [address] PO2 ARTERIAL 137.5 mm Hg High 80.0-100.0 [facility] Comment on above: Order Comment: 30 mi n after vent changes Performed By: #### L [id number] ####Statement Clerks Manager: FINN BONNER ([phone])[facility] ([facility])[address] [place] [address] SOURCE OF OXYGEN Vent Normal [facility] Comment on above: Order Comment: 30 mi n after vent changes Result Comment: 80% FiO2 Performed By: #### L [id number] ####Statement Clerks Manager: FINN BONNER ([phone])[facility] ([facility])[address] [place] [address] Base excess Calc (Bld) [Moles/Vol] 3.4 mmol/L High -3.0-3.0 [facility] Comment on above: Performed By: #### L [id number] ####Statement Clerks Manager: FINN BONNER ([phone])[facility])[address] [place] [address] CO2 [Moles/Vol] 35.8 mmol/L High 23.0-27.0 [facility] Comment on above: Performed By: #### L [id number] ####Statement Clerks Manager: FINN BONNER ([phone])[facility])[address] [place] [address] HCO3 (Bld) [Moles/Vol] 33.2 mmol/L High 21.0-25.0 [facility] Comment on above: Performed By: #### L [id number] ####Statement Clerks Manager: FINN BONNER ([phone])[facility])[address] [place] [address] Hemoglobin (Bld) [Mass/Vol] 10.3 g/dL Normal Screen Only [facility] Comment on above: Performed By: #### L [id number] ####Statement Clerks Manager: FINN BONNER ([phone])[facility])[address] [place] [address] OXYGEN SATURATION (%) IN ARTERIAL BLOOD 99.1 % Normal 95.0-100.0 [facility] Comment on above: Performed By: #### L [id number] ####Statement Clerks Manager: FINN BONNER ([phone])[facility])[address] [place] [address] PCO2 ARTERIAL 86.2 mm Hg Critically high >35.0-<45.0 [facility] Comment on above: Performed By: #### L [id number] ####Statement Clerks Manager: FINN BONNER ([phone])[facility])[address] [place] [address] PH ARTERIAL 7.203 Low 7.350-7.450 [facility] Comment on above: Performed By: #### L [id number] ####Statement Clerks Manager: FINN BONNER ([phone])[facility] [place] [address] PO2 ARTERIAL 282.7 mm Hg High 80.0-100.0 [facility] Comment on above: Performed By: #### L [id number] ####Statement Clerks Manager: FINN BONNER ([phone])[facility] ([facility])[address] [place] [address] SOURCE OF OXYGEN Vent Normal [facility] Comment on above: Performed By: #### L [id number] ####Statement Clerks Manager: FINN BONNER ([phone])[facility] ([facility])[address] [place] [address] Basic metabolic 1998 panelon 01-30-2023 Anion gap [Moles/Vol] 6 mmol/L 3 - 13 mmol/L [facility] Calcium [Mass/Vol] 8.5 mg/dL 8.4 - 10. 4 mg/dL [facility] Chloride [Moles/Vol] 97 mmol/L Low 98 - 10 7 mmol/L [facility] CO2 [Moles/Vol] 35 mmol/L High 22 - 30 mmol/L [facility] Creatinine [Mass/Vol] 0.84 mg/dL 0.66 - 1.25 mg/dL [facility] GFR/1.73 sq M.predicted MDRD (S/P/Bld) [Vol rate/Area] - PINF [facility] Glucose [Mass/Vol] 95 mg/dL 70 - 100 mg/dL [facility] Interpretation and review of laboratory results Abnormal [facility] Potassium [Moles/Vol] 5.1 mmol/L 3.5 - 5.1 mmol/L [facility] Sodium [Moles/Vol] 138 mmol/L 135 - 145 mmol/L [facility] Urea nitrogen [Mass/Vol] 28 mg/dL High 9 - 20 mg/dL [facility] CBC (HEMOGRAM)on 01-30-2023 Erythrocyte distribution width (RBC) [Ratio] 18.3 % High 11.5-14.5 [facility] Comment on above: Performed By: #### L [id number] ####Statement Clerks Manager: FINN BONNER ([phone])[facility] [address] ERYTHROCYTE MEAN CORPUSCULAR HEMOGLOBIN CONCENTRATION (G/DL) BY AUTOMATED 32.0 % Normal 32.0-36.0 [facility] Comment on above: Performed By: #### L [id number] ####Statement Clerks Manager: FINN BONNER ([phone])[facility])[address] [place] [address] Hematocrit (Bld) [Volume fraction] 30.0 % Low 40.0-52.0 [facility] Comment on above: Performed By: #### L [id number] ####Statement Clerks Manager: FINN BONNER ([phone])[facility])[address] [place] [address] Hemoglobin (Bld) [Mass/Vol] 9.6 g/dL Low 13.0-18.0 [facility] Comment on above: Performed By: #### L [id number] ####Statement Clerks Manager: FINN BONNER ([phone])[facility] ([facility])[address] [place] [address] MCH (RBC) [Entitic mass] 26.4 pg Normal 26.0-34.0 [facility] Comment on above: Performed By: #### L [id number] ####Statement Clerks Manager: FINN BONNER ([phone])[facility])[address] [place] [address] MCV (RBC) [Entitic vol] 82.5 fL Normal 80.0-98.0 [facility] Comment on above: Performed By: #### L [id number] ####Statement Clerks Manager: FINN BONNER ([phone])[facility])[address] [place] [address] Platelet mean volume (Bld) [Entitic vol] 7.4 fL Normal 7.4-12.4 [facility] Comment on above: Performed By: #### L [id number] ####Statement Clerks Manager: FINN BONNER ([phone])[facility])[address] [place] [address] [place] Platelets (Bld) [#/Vol] 261 10*3/uL Normal 140-440 [facility] Comment on above: Performed By: #### L [id number] ####Statement Clerks Manager: FINN BONNER ([phone])[facility])[address] [place] [address] RBC (Bld) [#/Vol] 3.63 10*6/uL Low 4.40-5.90 [facility] Comment on above: Performed By: #### L [id number] ####Statement Clerks Manager: FINN BONNER ([phone])[facility] ([facility])[address] [place] [address] WBC (Bld) [#/Vol] 8.0 10*3/uL Normal 3.6-10.7 [facility] Comment on above: Performed By: #### L [id number] ####Statement Clerks Manager: FINN BONNER ([phone])[facility] ([facility])[address] [place] [address] CBC panel Auto (Bld)Ordered By: Walter Cardoso on 01-30-2023 Erythrocyte distribution width (RBC) [Ratio] 18.3 % High 11.5 - 14.5 % [facility] Hematocrit (Bld) [Volume fraction] 30.0 % Low 40.0 - 52.0 % [facility] Hemoglobin (Bld) [Mass/Vol] 9.6 g/dL Low 13.0 - 18.0 g/dL [facility] Interpretation and review of laboratory results Abnormal [facility] MCH (RBC) [Entitic mass] 26.4 pg 26.0 - 34.0 pg [facility] MCHC (RBC) [Mass/Vol] 32.0 % 32.0 - 36.0 % [facility] MCV (RBC) [Entitic vol] 82.5 fL 80.0 - 98.0 fL [facility] Platelet mean volume (Bld) [Entitic vol] 7.4 fL 7.4 - 12.4 fL [facility] Platelets (Bld) [#/Vol] 261 10*3/uL 140 - 440 10*3/uL [facility] RBC (Bld) [#/Vol] 3.63 10*6/uL Low 4.40 - 5.9 0 10*6/uL [facility] WBC (Bld) [#/Vol] 8.0 10*3/uL 3.6 - 10.7 10*3/uL [facility] Health Consulton 01-30-2023 Consult Normal [facility] Consult Normal [facility] Laboratory - Chemistry and C hemistry - challengeon 01-30-2023 Glucose [Mass/Vol] 122 mg/dL High 70 - 100 mg/dL [facility] Base excess Calc (Bld) [Moles/Vol] 3.4 mmol/L High -3.0 - 3.0 mmol/L [facility] CO2 (Bld) [Partial pressure] 97.6 mm[Hg] Critically high - PINF [facility] CO2 [Moles/Vol] 37.4 mmol/L High 23.0 - 27.0 mmol/L [facility] HCO3 (Bld) [Moles/Vol] 34.4 mmol/L High 21.0 - 25.0 mmol/L [facility] Oxygen (Bld) [Partial pressure] 86.5 mm[Hg] [facility] pH (Bld) 7.165 [pH] Critically low 7.350 - 7.450 [facility] Glucose [Mass/Vol] 103 mg/dL High 70 - 100 mg/dL [facility] Glucose [Mass/Vol] 83 mg/dL 70 - 100 mg/dL [facility] Base excess Calc (Bld) [Moles/Vol] 3.4 mmol/L High -3.0 - 3.0 mmol/L [facility] CO2 (Bld) [Partial pressure] 86.2 mm[Hg] Critically high - PINF [facility] CO2 [Moles/Vol] 35.8 mmol/L High 23.0 - 27.0 mmol/L [facility] HCO3 (Bld) [Moles/Vol] 33.2 mmol/L High 21.0 - 25.0 mmol/L [facility] Oxygen (Bld) [Partial pressure] 282.7 mm[Hg] High [facility] pH (Bld) 7.203 [pH] Low 7.350 - 7.450 [facility] Glucose [Mass/Vol] 92 mg/dL 70 - 100 mg/dL [facility] Laboratory - Chemistry and C hemistry - challengeOrdered By: Stefanie Wilkerson on 01-30-2023 Base excess Calc (Bld) [Moles/Vol] 6.1 mmol/L High -3.0 - 3.0 mmol/L [facility] CO2 (Bld) [Partial pressure] 61.7 mm[Hg] High - PINF [facility] CO2 [Moles/Vol] 35.0 mmol/L High 23.0 - 27.0 mmol/L [facility] HCO3 (Bld) [Moles/Vol] 33.1 mmol/L High 21.0 - 25.0 mmol/L [facility] Oxygen (Bld) [Partial pressure] 81.0 mm[Hg] [facility] pH (Bld) 7.347 [pH] Low 7.350 - 7.450 [facility] Laboratory - Chemistry and C hemistry - challengeOrdered By: Evan Benson on 01-30-2023 Base excess Calc (Bld) [Moles/Vol] 5.0 mmol/L High -3.0 - 3.0 mmol/L [facility] CO2 (Bld) [Partial pressure] 73.6 mm[Hg] High - PINF [facility] CO2 [Moles/Vol] 35.7 mmol/L High 23.0 - 27.0 mmol/L [facility] HCO3 (Bld) [Moles/Vol] 33.4 mmol/L High 21.0 - 25.0 mmol/L [facility] Oxygen (Bld) [Partial pressure] 137.5 mm[Hg] High [facility] pH (Bld) 7.275 [pH] Low 7.350 - 7.450 [facility] Laboratory - Hematology and Cell countsOrdered By: Stefanie Wilkerson on 01-30-2023 Hemoglobin (Bld) [Mass/Vol] 10.1 g/dL Screen Only [facility] Laboratory - Hematology and Cell countson 01-30-2023 Hemoglobin (Bld) [Mass/Vol] 11.3 g/dL Screen Only [facility] Hemoglobin (Bld) [Mass/Vol] 10.3 g/dL Screen Only [facility] Laboratory - Hematology and Cell countsOrdered By: Evan Benson on 01-30-2023 Hemoglobin (Bld) [Mass/Vol] 10.3 g/dL Screen Only [facility] No Panel Informationon 01-30 Interpretation and review of laboratory results Abnormal [facility] Interpretation and review of laboratory results Abnormal [facility] Source Of Oxygen Vent [facility] Interpretation and review of laboratory results Abnormal [facility] Interpretation and review of laboratory results Normal [facility] Interpretation and review of laboratory results Abnormal [facility] Source Of Oxygen Vent [facility] Interpretation and review of laboratory results Normal [facility] No Panel InformationOrdered By: Stefanie Wilkerson on 01-30-2023 Interpretation and review of laboratory results Abnormal [facility] Source Of Oxygen Vent [facility] No Panel InformationOrdered By: Evan Benson on 01-30-2023 Interpretation and review of laboratory results Abnormal [facility] Source Of Oxygen Vent [facility] Progress Noteon 01-30-2023 Progress Note Normal [facility] Progress Note Normal [facility] Progress Note Speech-Language Pathology Patient transferred from [place] and is now intubated. Completed speech therapy orders and await re-consult 12 - 24 hours post extubation. Candice Driver MS, CCC/APPAR[employer] SALES REPRESENTATIVE Normal [facility] Progress Note Normal [facility] Progress Note 01/30/23 0339 Wean Screen SpO2>/=88% Yes [id number] HR <140 BPM Yes RR MAP >/= 65mmHg Yes Arterial pH >7.30 and <7.50 Yes Safety Screen Spontaneous Breathing Trial (SBT) FiO2 is greater than 50% Normal [facility] XR Abdomen Single viewon [facility] RADIOLOGY [facility] RADIOLOGY SYSTEM [facility] Radiology Study observation (narrative) [facility] XR CHEST 1 VIEWon 01-30-2023 XR CHEST 1 VIEW Normal [facility] XR CHEST 1 VIEW Normal [facility] XR Chest Single viewon 01-30 [facility] RADIOLOGY SYSTEM [facility] RADIOLOGY SYSTEM [facility] Radiology Study observation (narrative) formerly [facility] RADIOLOGY [facility] RADIOLOGY SYSTEM [facility] Radiology Study observation (narrative) [facility] XR Chest Single viewOrdered By: Jethro Singer on 01-30-[address] [facility] [employer] Work Phone: BLOOD GAS ARTERIALon 023 Base excess Calc (Bld) [Moles/Vol] 1.4 mmol/L Normal -3.0-3.0 [facility] Comment on above: Performed By: #### L [id number] ####Statement Clerks Manager: FINN BONNER ([phone])[facility] ([facility])[address] [place] [address] CO2 [Moles/Vol] 30.4 mmol/L High 23.0-27.0 [facility] Comment on above: Performed By: #### L [id number] ####Statement Clerks Manager: FINN BONNER ([phone])[facility] ([facility])[address] [place] [address] HCO3 (Bld) [Moles/Vol] 28.6 mmol/L High 21.0-25.0 [facility] Comment on above: Performed By: #### L [id number] ####Statement Clerks Manager: FINN BONNER ([phone])[facility] ([facility])[address] [place] [address] Hemoglobin (Bld) [Mass/Vol] 10.9 g/dL Normal Screen Only [facility] Comment on above: Performed By: #### L [id number] ####Statement Clerks Manager: FINN BONNER ([phone])[facility] ([facility])[address] [place] [address] OXYGEN SATURATION (%) IN ARTERIAL BLOOD 97.5 % Normal 95.0-100.0 [facility] Comment on above: Performed By: #### L [id number] ####Statement Clerks Manager: FINN BONNER ([phone])[facility] ([facility])[address] [place] [address] PCO2 ARTERIAL 58.4 mm Hg High >35.0-<45.0 [facility] Comment on above: Performed By: #### L [id number] ####Statement Clerks Manager: FINN BONNER ([phone])[facility] ([facility])[address] [place] [address] PH ARTERIAL 7.308 Low 7.350-7.450 [facility] System [facility] Comment on above: Performed By: #### L [id number] ####Statement Clerks Manager: FINN BONNER ([phone])[facility] ([facility])[address] [place] [address] PO2 ARTERIAL 114.7 mm Hg High 80.0-100.0 [facility] Comment on above: Performed By: #### L [id number] ####Statement Clerks Manager: FINN BONNER ([phone])[facility] ([facility])[address] [place] [address] SOURCE OF OXYGEN 50% Oxygen Normal [facility] Comment on above: Result Comment: vent Performed By: #### L [id number] ####Statement Clerks Manager: FINN BONNER ([phone])[facility] ([facility])[address] [place] [address] CBC W Auto Differential pane l (Bld)Ordered By: Jerica Mendoza on 01-29-2023 Basophils (Bld) [#/Vol] 0.0 10*3/uL 0.0 - 0.2 10*3/uL for; to (do) Centers [employer] Basophils/100 WBC (Bld) 0.3 % 0.0 - 2.0 % [facility] Eosinophils (Bld) [#/Vol] 0.0 10*3/uL 0.0 - 0.5 10*3/uL [facility] Eosinophils/100 WBC (Bld) 0.0 % Low 1.0 - 6.0 % [facility] [employer] Erythrocyte distribution width (RBC) [Ratio] 18.5 % High 11.5 - 14.5 % [facility] [employer] Hematocrit (Bld) [Volume fraction] 32.8 % Low 40.0 - 52.0 % [facility] [employer] Hemoglobin (Bld) [Mass/Vol] 10.3 g/dL Low 13.0 - 18.0 g/dL [facility] [employer] Interpretation and review of laboratory results Abnormal [facility] [employer] Lymphocytes (Bld) [#/Vol] 0.7 10*3/uL Low 1.0 - 4.3 10*3/uL [facility] [employer] Lymphocytes/100 WBC (Bld) 7.9 % Low 20.0 - 40.0 % [facility] [employer] MCH (RBC) [Entitic mass] 26.2 pg 26.0 - 34.0 pg [facility] MCHC (RBC) [Mass/Vol] 31.4 % Low 32.0 - 36.0 % [facility] MCV (RBC) [Entitic vol] 83.5 fL 80.0 - 98.0 fL [facility] Monocytes (Bld) [#/Vol] 0.5 10*3/uL 0.0 - 0.8 10*3/uL [facility] Monocytes/100 WBC (Bld) 6.1 % 2.0 - 10.0 % [facility] Neutrophils (Bld) [#/Vol] 7.3 10*3/uL High 1.8 - 7.0 10*3/uL [facility] Neutrophils/100 WBC (Bld) 85.7 % High 40.0 - 80.0 % [facility] Nucleated RBC/100 WBC (Bld) [Ratio] 0.0 % [facility] [employer] Platelet mean volume (Bld) [Entitic vol] 7.2 fL Low 7.4 - 12.4 fL [facility] Platelets (Bld) [#/Vol] 232 10*3/uL 140 - 440 10*3/uL [facility] RBC (Bld) [#/Vol] 3.93 10*6/uL Low 4.40 - 5.9 0 10*6/uL [facility] WBC (Bld) [#/Vol] 8.5 10*3/uL 3.6 - 10.7 10*3/uL [facility] CBC WITH AUTO DIFFERENTIALon 01-29-2023 Basophils (Bld) [#/Vol] 0.0 10*3/uL Normal 0.0-0.2 [facility] Comment on above: Performed By: #### L [id number] ####Statement Clerks Manager: FINN BONNER ([phone])[address] Basophils/100 WBC (Bld) 0.3 % Normal 0.0-2.0 [facility] Comment on above: Performed By: #### L [id number] ####Statement Clerks Manager: FINN BONNER ([phone])[facility] ([facility])[address] [place] [address] [place] Eosinophils (Bld) [#/Vol] 0.0 10*3/uL Normal 0.0-0.5 [facility] Comment on above: Performed By: #### L [id number] ####Statement Clerks Manager: FINN BONNER ([phone])[facility])[address] [place] [address] Eosinophils/100 WBC (Bld) 0.0 % Low 1.0-6.0 [facility] Comment on above: Performed By: #### L [id number] ####Statement Clerks Manager: FINN BONNER ([phone])[facility])[address] [place] [address] Erythrocyte distribution width (RBC) [Ratio] 18.5 % High 11.5-14.5 [facility] Comment on above: Performed By: #### L [id number] ####Statement Clerks Manager: FINN BONNER ([phone])[address] ERYTHROCYTE MEAN CORPUSCULAR HEMOGLOBIN CONCENTRATION (G/DL) BY AUTOMATED 31.4 % Low 32.0-36.0 [facility] Comment on above: Performed By: #### L [id number] ####Statement Clerks Manager: FINN BONNER ([phone])[address] Hematocrit (Bld) [Volume fraction] 32.8 % Low 40.0-52.0 [facility] Comment on above: Performed By: #### L [id number] ####Statement Clerks Manager: FINN BONENR ([phone])[facility])[address] [place] [address] Hemoglobin (Bld) [Mass/Vol] 10.3 g/dL Low 13.0-18.0 [facility] Comment on above: Performed By: #### L [id number] ####Statement Clerks Manager: FINN BONNER ([phone])[facility])[address] [place] [address] Lymphocytes (Bld) [#/Vol] 0.7 10*3/uL Low 1.0-4.3 [facility] Comment on above: Performed By: #### L [id number] ####Statement Clerks Manager: FINN BONNER ([phone])[facility])[address] [place] [address] Lymphocytes/100 WBC (Bld) 7.9 % Low 20.0-40.0 [facility] Comment on above: Performed By: #### L [id number] ####Statement Clerks Manager: FINN BONNER ([phone])[facility])[address] [place] [address] MCH (RBC) [Entitic mass] 26.2 pg Normal 26.0-34.0 [facility] Comment on above: Performed By: #### L [id number] ####Statement Clerks Manager: FINN BONNER ([phone])[facility])[address] [place] [address] MCV (RBC) [Entitic vol] 83.5 fL Normal 80.0-98.0 [facility] Comment on above: Performed By: #### L [id number] ####Statement Clerks Manager: FINN BONNER ([phone])[facility])[address] [place] [address] Monocytes (Bld) [#/Vol] 0.5 10*3/uL Normal 0.0-0.8 [facility] Comment on above: Performed By: #### L [id number] ####Statement Clerks Manager: FINN BONNER ([phone])[facility])[address] [place] [address] Monocytes/100 WBC (Bld) 6.1 % Normal 2.0-10.0 [facility] Comment on above: Performed By: #### L [id number] ####Statement Clerks Manager: FINN BONNER ([phone])[facility])[address] [place] [address] Neutrophils (Bld) [#/Vol] 7.3 10*3/uL High 1.8-7.0 [facility] Comment on above: Performed By: #### L [id number] ####Statement Clerks Manager: FINN BONNER ([phone])[facility])[address] [place] [address] Neutrophils/100 WBC (Bld) 85.7 % High 40.0-80.0 [facility] Comment on above: Performed By: #### L [id number] ####Statement Clerks Manager: FINN BONNER ([phone])[facility])[address] [place] [address] NRBC (PER 100 WBCS) BY AUTOMATED COUNT 0.0 /100 WBCs Normal 0.0-2.0 [facility] Comment on above: Performed By: #### L [id number] ####Statement Clerks Manager: FINN BONNER ([phone])[facility])[address] [place] [address] Platelet mean volume (Bld) [Entitic vol] 7.2 fL Low 7.4-12.4 [facility] Comment on above: Performed By: #### L [id number] ####Statement Clerks Manager: FINN BONNER ([phone])[facility])[address] [place] [address] Platelets (Bld) [#/Vol] 232 10*3/uL Normal 140-440 [facility] Comment on above: Performed By: #### L [id number] ####Statement Clerks Manager: FINN BONNER ([phone])[facility])[address] [place] [address] RBC (Bld) [#/Vol] 3.93 10*6/uL Low 4.40-5.90 [facility] Comment on above: Performed By: #### L [id number] ####Statement Clerks Manager: FINN BONNER ([phone])[facility])[address] [place] [address] WBC (Bld) [#/Vol] 8.5 10*3/uL Normal 3.6-10.7 [facility] Comment on above: Performed By: #### L [id number] ####Statement Clerks Manager: FINN BONNER ([phone])[facility] ([facility])[address] [place] [address] COMPREHENSIVE METABOLIC PANE Rafael 01-29-2023 Albumin [Mass/Vol] 4.5 g/dL Normal 3.5-5.0 [facility] Comment on above: Performed By: #### L [id number] ####Statement Clerks Manager: FINN BONNER ([phone])[facility] ([facility])[address] [place] [address] ALP [Catalytic activity/Vol] 44 U/L Normal 38-126 [facility] Comment on above: Performed By: #### L [id number] ####Statement Clerks Manager: FINN BONNER ([phone])[facility] ([facility])[address] [place] [address] ALT [Catalytic activity/Vol] 31 U/L Normal 0-49 [facility] Comment on above: Performed By: #### L [id number] ####Statement Clerks Manager: FINN BONNER ([phone])[facility] ([facility])[address] [place] [address] Anion gap [Moles/Vol] 13 mmol/L Normal 3-13 [facility] Comment on above: Performed By: #### L [id number] ####Statement Clerks Manager: FINN BONNER ([phone])[facility] ([facility])[address] [place] [address] AST [Catalytic activity/Vol] 40 U/L Normal 15-46 [facility] Comment on above: Performed By: #### L [id number] ####Statement Clerks Manager: FINN BONNER ([phone])[facility] ([facility])[address] [place] [address] Bilirubin [Mass/Vol] 1.0 mg/dL Normal 0.2-1.3 [facility] Comment on above: Performed By: #### L [id number] ####Statement Clerks Manager: FINN BONNER ([phone])[facility] ([facility])[address] [place] [address] [place] Calcium [Mass/Vol] 9.1 mg/dL Normal 8.4-10.4 [facility] Comment on above: Performed By: #### L [id number] ####Statement Clerks Manager: FINN BONNER ([phone])[facility])[address] [place] [address] Chloride [Moles/Vol] 98 mmol/L Normal 98-107 [facility] Comment on above: Performed By: #### L [id number] ####Statement Clerks Manager: FINN BONNER ([phone])[facility])[address] [place] [address] CO2 [Moles/Vol] 27 mmol/L Normal 22-30 [facility] Comment on above: Performed By: #### L [id number] ####Statement Clerks Manager: FINN BONNER ([phone])[facility] ([facility])[address] [place] [address] Creatinine [Mass/Vol] 0.86 mg/dL Normal 0.66-1.25 [facility] Comment on above: Performed By: #### L [id number] ####Statement Clerks Manager: FINN BONNER ([phone])[facility] ([facility])[address] [place] [address] GLOMERULAR FILTRATION RATE ML/MIN/1.73 SQ M.PREDICTED >90.0 Normal >60.0 [facility] Comment on above: Result Comment: Calc ulation based on the Chronic Kidney Disease Epidemiology Collaboration (CKD-EPI) equation refit without adjustment for race Performed By: #### L [id number] ####Statement Clerks Manager: FINN BONNER ([phone])[facility] ([facility])[address] [place] [address] [place] Glucose [Mass/Vol] 106 mg/dL High 70-100 [facility] Comment on above: Performed By: #### L [id number] ####Statement Clerks Manager: FINN BONNER ([phone])[facility])[address] [place] [address] [place] Potassium [Moles/Vol] 5.2 mmol/L High 3.5-5.1 [facility] Comment on above: Performed By: #### L [id number] ####Statement Clerks Manager: FINN BONNER ([phone])[facility] ([facility])[address] [place] [address] Protein [Mass/Vol] 7.8 g/dL Normal 6.3-8.2 [facility] Comment on above: Performed By: #### L [id number] ####Statement Clerks Manager: FINN BONNER ([phone])[facility] ([facility])[address] [place] [address] Sodium [Moles/Vol] 137 mmol/L Normal 135-145 [facility] Comment on above: Performed By: #### L [id number] ####Statement Clerks Manager: FINN BONNER ([phone])[facility] ([facility])[address] [place] [address] Urea nitrogen [Mass/Vol] 26 mg/dL High 9-20 [facility] Comment on above: Performed By: #### L [id number] ####Statement Clerks Manager: FINN BONNER ([phone])[facility] ([facility])[address] [place] [address] Albumin [Mass/Vol] 4.3 g/dL Normal 3.5-5.0 [facility] Comment on above: Performed By: #### L [id number] ####Statement Clerks Manager: LIDIA NEIL ([phone])[facility] ([facility])[address] [place] [address] ALP [Catalytic activity/Vol] 43 U/L Normal 38-126 [facility] Comment on above: Performed By: #### L [id number] ####Statement Clerks Manager: LIDIA NEIL ([phone])[facility] ([facility])[address] ALT [Catalytic activity/Vol] 35 U/L Normal 0-49 [facility] Comment on above: Performed By: #### L [id number] ####Statement Clerks Manager: LIDIA NEIL ([phone])[facility] ([facility])[address] [place] [address] Anion gap [Moles/Vol] 5 mmol/L Normal 3-13 [facility] Comment on above: Performed By: #### L AB17 ####Statement Clerks Manager: LIDIA NEIL ([phone])[facility] [place] ([facility])[address] AST [Catalytic activity/Vol] 70 U/L High 15-46 [facility] Comment on above: Performed By: #### L AB17 ####Statement Clerks Manager: LIDIA NEIL ([id number])[facility] [place] ([facility])[address] Bilirubin [Mass/Vol] 0.6 mg/dL Normal 0.2-1.3 [facility] Comment on above: Performed By: #### L [id number] ####Statement Clerks Manager: LIDIA NEIL ([id number])[facility] ([facility])[address] Calcium [Mass/Vol] 9.0 mg/dL Normal 8.4-10.4 [facility] Comment on above: Performed By: #### L AB17 ####Statement Clerks Manager: LIDIA NEIL ([phone])[facility] [place] ([facility])[address] Chloride [Moles/Vol] 100 mmol/L Normal 98-107 [facility] Comment on above: Performed By: #### L AB17 ####Statement Clerks Manager: LIDIA NEIL ([phone])[facility] [place] ([facility])[address] [place] [address] [place] CO2 [Moles/Vol] 35 mmol/L High 22-30 [facility] Comment on above: Performed By: #### L AB17 ####Statement Clerks Manager: LIDIA NEIL ([phone])[facility] ([facility])[address] Creatinine [Mass/Vol] 0.84 mg/dL Normal 0.66-1.25 [facility] Comment on above: Performed By: #### L AB17 ####Statement Clerks Manager: LIDIA NEIL ([phone])[facility] ([facility])[address] GLOMERULAR FILTRATION RATE ML/MIN/1.73 SQ M.PREDICTED >90.0 Normal >60.0 [facility] Comment on above: Result Comment: Calc ulation based on the Chronic Kidney Disease Epidemiology Collaboration (CKD-EPI) equation refit without adjustment for raceORDER COMMENTS:Slightly Hemolyzed Performed By: #### L [id number] ####Statement Clerks Manager: LIDIA NEIL ([phone])[facility] ([facility])[address] Glucose [Mass/Vol] 89 mg/dL Normal 70-100 [facility] Comment on above: Performed By: #### L AB17 ####Statement Clerks Manager: LIDIA NEIL ([phone])[facility] ([facility])[address] Potassium [Moles/Vol] 5.0 mmol/L Normal 3.5-5.1 [facility] Comment on above: Performed By: #### L AB17 ####Statement Clerks Manager: LIDIA NEIL ([phone])[facility] ([facility])[address] Protein [Mass/Vol] 7.7 g/dL Normal 6.3-8.2 [facility] Comment on above: Performed By: #### L AB17 ####Statement Clerks Manager: LIDIA NEIL ([phone])[facility] ([facility])[address] [place] [address] [place] Sodium [Moles/Vol] 139 mmol/L Normal 135-145 [facility] Comment on above: Performed By: #### L AB17 ####Statement Clerks Manager: LIDIA NEIL ([phone])[facility] ([facility])[address] [place] [address] [place] Urea nitrogen [Mass/Vol] 30 mg/dL High 9-20 [facility] Comment on above: Performed By: #### L AB17 ####Statement Clerks Manager: LIDIA NEIL ([phone])[facility] ([facility])[address] [place] [address] CT CHEST WO IV CONTRASTon CT CHEST WO IV CONTRAST Normal [facility] [facility] Chest WO contraston 01-29 [facility] RADIOLOGY [facility] RADIOLOGY [facility] Radiology Study observation (narrative) [facility] CT Neck WO contraston [address] [facility] Radiology Study observation (narrative) [facility] CT SOFT TISSUE NECK WO IV CO NTRASTon 01-29-2023 CT SOFT TISSUE NECK WO IV CONTRAST Normal [facility] Comprehensive metabolic 1998 panelon 01-29-2023 Albumin [Mass/Vol] 4.5 g/dL 3.5 - 5.0 g/dL [facility] ALP [Catalytic activity/Vol] 44 U/L 38 - 126 U/L [facility] ALT [Catalytic activity/Vol] 31 U/L 0 - 49 U/L [facility] Anion gap [Moles/Vol] 13 mmol/L 3 - 13 mmol/L [facility] AST [Catalytic activity/Vol] 40 U/L 15 - 46 U/L [facility] Bilirubin [Mass/Vol] 1.0 mg/dL 0.2 - 1 .3 mg/dL [facility] Calcium [Mass/Vol] 9.1 mg/dL 8.4 - 10. 4 mg/dL [facility] Chloride [Moles/Vol] 98 mmol/L 98 - 10 7 mmol/L [facility] CO2 [Moles/Vol] 27 mmol/L 22 - 30 mmol/L [facility] Creatinine [Mass/Vol] 0.86 mg/dL 0.66 - 1.25 mg/dL [facility] GFR/1.73 sq M.predicted MDRD (S/P/Bld) [Vol rate/Area] - PINF [facility] Glucose [Mass/Vol] 106 mg/dL High 70 - 100 mg/dL [facility] Interpretation and review of laboratory results Abnormal [facility] Potassium [Moles/Vol] 5.2 mmol/L High 3.5 - 5.1 mmol/L [facility] Protein [Mass/Vol] 7.8 g/dL 6.3 - 8.2 g/dL [facility] Sodium [Moles/Vol] 137 mmol/L 135 - 145 mmol/L [facility] Urea nitrogen [Mass/Vol] 26 mg/dL High 9 - 20 mg/dL [facility] Albumin [Mass/Vol] 4.3 g/dL 3.5 - 5.0 g/dL [facility] ALP [Catalytic activity/Vol] 43 U/L 38 - 126 U/L [facility] ALT [Catalytic activity/Vol] 35 U/L 0 - 49 U/L [facility] Anion gap [Moles/Vol] 5 mmol/L 3 - 13 mmol/L [facility] AST [Catalytic activity/Vol] 70 U/L High 15 - 46 U/L [facility] Bilirubin [Mass/Vol] 0.6 mg/dL 0.2 - 1 .3 mg/dL [facility] Calcium [Mass/Vol] 9.0 mg/dL 8.4 - 10. 4 mg/dL [facility] Chloride [Moles/Vol] 100 mmol/L 98 - 10 7 mmol/L [facility] CO2 [Moles/Vol] 35 mmol/L High 22 - 30 mmol/L [facility] Creatinine [Mass/Vol] 0.84 mg/dL 0.66 - 1.25 mg/dL [facility] GFR/1.73 sq M.predicted MDRD (S/P/Bld) [Vol rate/Area] - PINF [facility] Glucose [Mass/Vol] 89 mg/dL 70 - 100 mg/dL [facility] Interpretation and review of laboratory results Abnormal [facility] Potassium [Moles/Vol] 5.0 mmol/L 3.5 - 5.1 mmol/L [facility] Protein [Mass/Vol] 7.7 g/dL 6.3 - 8.2 g/dL [facility] Sodium [Moles/Vol] 139 mmol/L 135 - 145 mmol/L [facility] Urea nitrogen [Mass/Vol] 30 mg/dL High 9 - 20 mg/dL [facility] - Chemistry and C hemistry - challengeon 01-29-2023 Glucose [Mass/Vol] 95 mg/dL 70 - 100 mg/dL [facility] Glucose [Mass/Vol] 97 mg/dL 70 - 100 mg/dL [facility] Glucose [Mass/Vol] 82 mg/dL 70 - 100 mg/dL [facility] Procalcitonin [Mass/Vol] 0.25 ng/mL High 0.00 - 0.09 ng/mL [facility] Glucose [Mass/Vol] 77 mg/dL 70 - 100 mg/dL [facility] Glucose [Mass/Vol] 81 mg/dL 70 - 100 mg/dL [facility] Laboratory - Chemistry and C hemistry - challengeOrdered By: Consuelo Oropeza on 01-29-2023 Base excess Calc (Bld) [Moles/Vol] 1.4 mmol/L -3.0 - 3.0 mmol/L [facility] CO2 (Bld) [Partial pressure] 58.4 mm[Hg] High - PINF [facility] CO2 [Moles/Vol] 30.4 mmol/L High 23.0 - 27.0 mmol/L [facility] HCO3 (Bld) [Moles/Vol] 28.6 mmol/L High 21.0 - 25.0 mmol/L [facility] Oxygen (Bld) [Partial pressure] 114.7 mm[Hg] High [facility] pH (Bld) 7.308 [pH] Low 7.350 - 7.450 [facility] Laboratory - Hematology and Cell countsOrdered By: Consuelo Oropeza on 01-29-2023 Hemoglobin (Bld) [Mass/Vol] 10.9 g/dL Screen Only [facility] No Panel Informationon 01-29 Interpretation and review of laboratory results Normal [facility] Interpretation and review of laboratory results Normal [facility] Interpretation and review of laboratory results Normal [facility] Interpretation and review of laboratory results Normal [facility] Interpretation and review of laboratory results Normal [facility] No Panel InformationOrdered By: Consuelo Oropeza on 01-29-2023 Interpretation and review of laboratory results Abnormal [facility] Source Of Oxygen 50% Oxygen [facility] Nursing Noteon 01-29-2023 Nursing Note Normal [facility] Procalcitonin [Mass/Vol]on 03-31-2022 Interpretation and review of laboratory results Abnormal [facility] Progress Noteon 01-29-2023 Progress Note Normal [facility] Progress Note Normal [facility] Progress Note Call placed to [facility] transfer line Information given Need to be out of ICU and stable for 24 hours for floor transfer, wont be in chica euntil tomorrow morning. Still waiting to conference with physician. Family at bedside updated. Normal [facility] Progress Note Normal [facility] Progress Note Accepted ICU transfer Normal [facility] Progress Note Normal [facility] US Heart Transthoracicon Fractional Shortening 2D 16 % 28 - 44 % [facility] IVSd 0.9 cm 0.6 - 1.0 cm [facility] LV Mass 2D 123.3 g 88 - 224 g [facility] LV Mass 2D Index 61.3 g/m2 49 - 115 g/m2 [facility] LV RWT Ratio 0.42 [facility] LVIDd 4.3 cm 4.2 - 5.9 cm [facility] LVIDd Index 2.14 cm/m2 [facility] LVIDs 3.6 cm [facility] LVIDs Index 1.79 cm/m2 [facility] LVPWd 0.9 cm 0.6 - 1.0 cm [facility] CV CPACS [facility] XR CHEST 1 VIEWon 01-29-2023 XR CHEST 1 VIEW Normal [facility] XR Chest Single viewon 01-29 [facility] Radiology Study observation (narrative) [facility] RADIOLOGY SYSTEM [facility] Radiology Study observation (narrative) [facility] RADIOLOGY SYSTEM [facility] Radiology Study observation (narrative) [facility] XR Chest Single viewOrdered By: Ray Bolaños on 01-29-[address] [facility] [employer] Phone: XR Chest Single viewOrdered By: Walter Pham on 01-29-[address] [facility] [employer] Phone: XR Chest Single viewOrdered By: William Bolaños on 01-29-[address] [facility] [employer] Phone: [phone] 01-28-2023 [id number] Pharmacy Intern following case for Discharge Needs. DME order for shower chair placed and [employer] notified. Waiting for PT/OT evals. Normal [facility] CARECOORDon 01-28-2023 [place] Normal [facility] CAR[place]OORD Normal [facility] CARECOORD Left chest tube removed overnight and dsd dressing in place. Possible sbt today. .. Normal [facility] COMPREHENSIVE METABOLIC PANE Rafael 01-28-2023 Albumin [Mass/Vol] 3.9 g/dL Normal 3.5-5.0 [facility] Comment on above: Performed By: #### L [id number], [id number], LAB17 ####Statement Clerks Manager: LIDIA NEIL ([phone])[facility] ([facility])[address] ALP [Catalytic activity/Vol] 40 U/L Normal 38-126 [facility] Comment on above: Performed By: #### L [id number], [id number], LAB17 ####Statement Clerks Manager: LIDIA NEIL ([phone])[facility] ([facility])[address] ALT [Catalytic activity/Vol] 23 U/L Normal 0-49 [facility] Comment on above: Performed By: #### L AB113, [id number], LAB17 ####Statement Clerks Manager: LIDIA NEIL ([phone])[facility] ([facility])[address] Anion gap [Moles/Vol] 5 mmol/L Normal 3-13 [facility] Comment on above: Performed By: #### L AB113, [id number], LAB17 ####Statement Clerks Manager: LIDIA NEIL ([phone])[facility] ([facility])[address] AST [Catalytic activity/Vol] 42 U/L Normal 15-46 [facility] Comment on above: Performed By: #### L AB113, [id number], LAB17 ####Statement Clerks Manager: LIDIA NEIL ([phone])[facility] ([facility])[address] Bilirubin [Mass/Vol] 0.3 mg/dL Normal 0.2-1.3 [facility] Comment on above: Performed By: #### L AB113, [id number], LAB17 ####Statement Clerks Manager: LIDIA NEIL ([phone])[facility] ([facility])[address] Calcium [Mass/Vol] 9.1 mg/dL Normal 8.4-10.4 [facility] Comment on above: Performed By: #### L ABTracy, [id number], LAB17 ####Statement Clerks Manager: LIDIA SAEEDDIOMEDES ([id number])[facility] ([facility])[address] Chloride [Moles/Vol] 103 mmol/L Normal 98-107 [facility] Comment on above: Performed By: #### L ABTracy, [id number], LAB17 ####Statement Clerks Manager: LIDIA NEIL ([phone])[facility] (SB[facility])[address] [place] [address] [place] CO2 [Moles/Vol] 28 mmol/L Normal 22-30 [facility] Comment on above: Performed By: #### L ABTracy, [id number], LAB17 ####Statement Clerks Manager: LIDIA NEIL ([phone])[facility] ([facility])[address] [place] [address] [place] Creatinine [Mass/Vol] 0.91 mg/dL Normal 0.66-1.25 [facility] Comment on above: Performed By: #### L AB113, [id number], LAB17 ####Statement Clerks Manager: LIDIA NEIL ([id number])[facility] ([facility])[address] GLOMERULAR FILTRATION RATE ML/MIN/1.73 SQ M.PREDICTED >90.0 Normal >60.0 [facility] Comment on above: Result Comment: Calc ulation based on the Chronic Kidney Disease Epidemiology Collaboration (CKD-EPI) equation refit without adjustment for race Performed By: #### Светлана ABTracy, [id number], LAB17 ####Statement Clerks Manager: LIDIA NEIL ([phone])[facility] [place] (SBHLAB)[address] Glucose [Mass/Vol] 122 mg/dL High 70-100 [facility] Comment on above: Performed By: #### L AB113, [id number], LAB17 ####Statement Clerks Manager: LIDIA NEIL ([phone])[facility] [place] (SB[facility])[address] Potassium [Moles/Vol] 4.5 mmol/L Normal 3.5-5.1 [facility] Comment on above: Performed By: #### Светлана UNDERWOOD, [id number], LAB17 ####Statement Clerks Manager: LIDIA NEIL ([phone])[facility] [place] (SB[facility])[address] Protein [Mass/Vol] 6.8 g/dL Normal 6.3-8.2 [facility] Comment on above: Performed By: #### Светлана ABTracy, [id number], LAB17 ####Statement Clerks Manager: LIDIA NEIL ([phone])[facility] [place] (SB[facility])[address] [place] [address] [place] Sodium [Moles/Vol] 136 mmol/L Normal 135-145 [facility] Comment on above: Performed By: #### Светлана ABTracy, [id number], LAB17 ####Statement Clerks Manager: LIDIA NEIL ([phone])[facility] [place] (SB[facility])[address] [place] [address] [place] Urea nitrogen [Mass/Vol] 30 mg/dL High 9-20 [facility] Comment on above: Performed By: #### L AB113, [id number], LAB17 ####Statement Clerks Manager: LIDIA NEIL ([phone])[facility] [place] (SBHLAB)[address] [place] [id number] [facility] Comprehensive metabolic 1998 panelon 01-28-2023 Albumin [Mass/Vol] 3.9 g/dL 3.5 - 5.0 g/dL [facility] ALP [Catalytic activity/Vol] 40 U/L 38 - 126 U/L [facility] ALT [Catalytic activity/Vol] 23 U/L 0 - 49 U/L [facility] Anion gap [Moles/Vol] 5 mmol/L 3 - 13 mmol/L [facility] AST [Catalytic activity/Vol] 42 U/L 15 - 46 U/L [facility] Bilirubin [Mass/Vol] 0.3 mg/dL 0.2 - 1 .3 mg/dL [facility] Calcium [Mass/Vol] 9.1 mg/dL 8.4 - 10. 4 mg/dL [facility] Chloride [Moles/Vol] 103 mmol/L 98 - 10 7 mmol/L [facility] CO2 [Moles/Vol] 28 mmol/L 22 - 30 mmol/L [facility] Creatinine [Mass/Vol] 0.91 mg/dL 0.66 - 1.25 mg/dL [facility] GFR/1.73 sq M.predicted MDRD (S/P/Bld) [Vol rate/Area] - PINF [facility] Glucose [Mass/Vol] 122 mg/dL High 70 - 100 mg/dL [facility] Interpretation and review of laboratory results Abnormal [facility] Potassium [Moles/Vol] 4.5 mmol/L 3.5 - 5.1 mmol/L [facility] Protein [Mass/Vol] 6.8 g/dL 6.3 - 8.2 g/dL [facility] Sodium [Moles/Vol] 136 mmol/L 135 - 145 mmol/L [facility] Urea nitrogen [Mass/Vol] 30 mg/dL High 9 - 20 mg/dL [facility] IDNon 01-28-2023 IDN Normal [facility] Laboratory - Chemistry and C hemistry - challengeon 01-28-2023 Glucose [Mass/Vol] 109 mg/dL High 70 - 100 mg/dL [facility] Glucose [Mass/Vol] 102 mg/dL High 70 - 100 mg/dL [facility] Glucose [Mass/Vol] 89 mg/dL 70 - 100 mg/dL [facility] Magnesium [Mass/Vol] 2.3 mg/dL 1.6 - 2 .3 mg/dL [facility] Base excess Calc (Bld) [Moles/Vol] 1.7 mmol/L -3.0 - 3.0 mmol/L [facility] CO2 (Bld) [Partial pressure] 52.2 mm[Hg] High [facility] HCO3 (Bld) [Moles/Vol] 28.1 mmol/L High 21.0 - 25.0 mmol/L [facility] Oxygen (Bld) [Partial pressure] 45.7 mm[Hg] Critically low [facility] pH (Bld) 7.340 [pH] Low 7.350 - 7.450 pH [facility] Glucose [Mass/Vol] 111 mg/dL High 70 - 100 mg/dL [facility] MAGNESIUMon 01-28-2023 Magnesium [Mass/Vol] 2.3 mg/dL Normal 1.6-2.3 [facility] Comment on above: Performed By: #### L AB113, [id number], LAB17 ####Statement Clerks Manager: LIDIA NEIL ([phone])[facility] ([facility])[address] [place] [address] No Panel Informationon 01-28 Interpretation and review of laboratory results Abnormal [facility] Interpretation and review of laboratory results Abnormal [facility] Interpretation and review of laboratory results Normal [facility] Interpretation and review of laboratory results Normal [facility] FIO2 40 [facility] Interpretation and review of laboratory results Abnormal [facility] Interpretation and review of laboratory results Abnormal [facility] PHOSPHORUSon 01-28-2023 Phosphate [Mass/Vol] 2.6 mg/dL Normal 2.5-4.5 [facility] Comment on above: Performed By: #### L AB113, [id number], LAB17 ####Statement Clerks Manager: LIDIA NEIL ([phone])[facility] ([facility])[address] PROCALCITONIN TESTon 023 PROCALCITONIN 0.25 ng/mL High 0.00-0.09 [facility] Comment on above: Order Comment: Obtai n 48 hours after last Procalcitonin result Result Comment: Obta in 48 hours after last Procalcitonin resultORDER COMMENTS:PCT <0.50 = Low risk of severe sepsis and/or septic shock.PCT >2.00 = High risk of severe sepsis and/or septic shock. Performed By: #### L [id number] ####Statement Clerks Manager: FINN BONNER ([phone])[facility] ([facility])[address] [place] [address] [place] Phosphate [Moles/Vol]on 01-12 Phosphate [Mass/Vol] 2.6 mg/dL 2.5 - 4 .5 mg/dL [facility] Progress Noteon 01-28-2023 Progress Note Normal [facility] Progress Note Normal [facility] Progress Note Normal [facility] Progress Note [facility] XR Chest Single viewon 01-28 [facility] RADIOLOGY [facility] RADIOLOGY SYSTEM [facility] Radiology Study observation (narrative) [facility] RADIOLOGY SYSTEM [facility] Radiology Study observation (narrative) [facility] Radiology Study observation (narrative) [facility] XR Chest Single viewOrdered By: Doyle Perez on 01-28-2023 [facility] Work Phone: XR Chest Single viewOrdered By: Mikhail Saravia on 01-28-2023 [facility] Work Phone: CARECOORDon 01-27-2023 [place]OORD Normal [facility] CBC WITH AUTO DIFFERENTIALon 01-27-2023 Basophils (Bld) [#/Vol] 0.0 10*3/uL Normal 0.0-0.2 [facility] Comment on above: Performed By: #### L [id number] ####Statement Clerks Manager: LIDIA NEIL ([phone])[facility] ([facility])[address] [place] [address] [place] Basophils/100 WBC (Bld) 0.1 % Normal 0.0-2.0 [facility] Comment on above: Performed By: #### L [id number] ####Statement Clerks Manager: LIDIAZAC NEIL ([id number])[facility] [place] (SBHL[facility])[address] Eosinophils (Bld) [#/Vol] 0.0 10*3/uL Normal 0.0-0.5 [facility] Comment on above: Performed By: #### L [id number] ####Statement Clerks Manager: LIDIAZAC NEIL ([id number])[facility] [place] (SBHL[facility])[address] Eosinophils/100 WBC (Bld) 0.1 % Low 1.0-6.0 [facility] Comment on above: Performed By: #### L [id number] ####Statement Clerks Manager: LIDIA NEIL ([id number])[facility] [place] ([facility])[address] Erythrocyte distribution width (RBC) [Ratio] 18.9 % High 11.5-14.5 [facility] Comment on above: Performed By: #### L [id number] ####Statement Clerks Manager: LIDIAZAC NEIL ([id number])[facility] [place] ([facility])[address] ERYTHROCYTE MEAN CORPUSCULAR HEMOGLOBIN CONCENTRATION (G/DL) BY AUTOMATED 31.1 % Low 32.0-36.0 [facility] Comment on above: Performed By: #### L [id number] ####Statement Clerks Manager: LIDIA JOLYNN ([phone])[facility] [place] ([facility])[address] Hematocrit (Bld) [Volume fraction] 36.0 % Low 40.0-52.0 [facility] Comment on above: Performed By: #### L [id number] ####Statement Clerks Manager: LIDIA MAYENFLY ([id number])[facility] [place] ([facility])[address] Hemoglobin (Bld) [Mass/Vol] 11.2 g/dL Low 13.0-18.0 [facility] Comment on above: Performed By: #### L [id number] ####Statement Clerks Manager: LIDIA JOLYNN ([id number])[facility] [place] ([facility])[address] Lymphocytes (Bld) [#/Vol] 0.5 10*3/uL Low 1.0-4.3 [facility] Comment on above: Performed By: #### L [id number] ####Statement Clerks Manager: LIDIA JOLYNN ([id number])[facility] [place] ([facility])[address] Lymphocytes/100 WBC (Bld) 4.5 % Low 20.0-40.0 [facility] Comment on above: Performed By: #### L [id number] ####Statement Clerks Manager: LIDIA JOLYNN ([id number])[facility] [place] ([facility])[address] MCH (RBC) [Entitic mass] 25.5 pg Low 26.0-34.0 [facility] Comment on above: Performed By: #### L [id number] ####Statement Clerks Manager: LIDIA SAEEDDIOMEDES ([id number])[facility] ([facility])[address] MCV (RBC) [Entitic vol] 82.0 fL Normal 80.0-98.0 [facility] Comment on above: Performed By: #### L [id number] ####Statement Clerks Manager: LIDIA SAEEDDIOMEDES ([id number])[facility] [place] ([facility])[address] [place] [address] [place] Monocytes (Bld) [#/Vol] 0.4 10*3/uL Normal 0.0-0.8 [facility] Comment on above: Performed By: #### L [id number] ####Statement Clerks Manager: LIDIA SAEEDDIOMEDES ([id number])[facility] [place] ([facility])[address] Monocytes/100 WBC (Bld) 3.8 % Normal 2.0-10.0 [facility] Comment on above: Performed By: #### L [id number] ####Statement Clerks Manager: LIDIA NEIL ([id number])[facility] [place] ([facility])[address] Neutrophils (Bld) [#/Vol] 10.8 10*3/uL High 1.8-7.0 [facility] Comment on above: Performed By: #### L [id number] ####Statement Clerks Manager: LIDIA NEIL ([id number])[facility] [place] ([facility])[address] Neutrophils/100 WBC (Bld) 91.5 % High 40.0-80.0 [facility] Comment on above: Performed By: #### L [id number] ####Statement Clerks Manager: LIDIA NEIL ([id number])[facility] [place] ([facility])[address] NRBC (PER 100 WBCS) BY AUTOMATED COUNT 0.0 /100 WBCs Normal 0.0-2.0 [facility] Comment on above: Performed By: #### L [id number] ####Statement Clerks Manager: LIDIA NEIL ([phone])[facility] [place] ([facility])[address] Platelet mean volume (Bld) [Entitic vol] 7.7 fL Normal 7.4-12.4 [facility] Comment on above: Performed By: #### L [id number] ####Statement Clerks Manager: LIDIA NEIL ([id number])[facility] [place] ([facility])[address] Platelets (Bld) [#/Vol] 280 10*3/uL Normal 140-440 [facility] Comment on above: Performed By: #### L [id number] ####Statement Clerks Manager: LIDIA NEIL ([id number])[facility] [place] ([facility])[address] RBC (Bld) [#/Vol] 4.39 10*6/uL Low 4.40-5.90 [facility] Comment on above: Performed By: #### L [id number] ####Statement Clerks Manager: LIDIA NEIL ([phone])[facility] ([facility])[address] WBC (Bld) [#/Vol] 11.8 10*3/uL High 3.6-10.7 [facility] Comment on above: Performed By: #### L [id number] ####Statement Clerks Manager: LIDIA NEIL ([phone])[facility]ITAL[facility] ([facility])[address] CKon 01-27-2023 CK [Catalytic activity/Vol] 2364 U/L High 30-170 [facility] Comment on above: Performed By: #### L AB17, LAB62, CGI716, [id number], [id number] ####Statement Clerks Manager: LIDIA NEIL ([phone])[facility]ITAL[facility] ([facility])[address] CK [Catalytic activity/Vol]o n 01-27-2023 Interpretation and review of laboratory results Abnormal [facility] COMPREHENSIVE METABOLIC PANE Rafael 01-27-2023 Albumin [Mass/Vol] 3.9 g/dL Normal 3.5-5.0 [facility] Comment on above: Performed By: #### L AB17, LAB62, XQF959, [id number], [id number] ####Statement Clerks Manager: LIDIA NEIL ([phone])[facility]ITAL[facility] ([facility])[address] [place] [address] ALP [Catalytic activity/Vol] 47 U/L Normal 38-126 [facility] Comment on above: Performed By: #### L AB17, LAB62, VUS151, [id number], [id number] ####Statement Clerks Manager: LIDIA NEIL ([phone])[facility] ([facility])[address] ALT [Catalytic activity/Vol] 54 U/L High 0-49 [facility] Comment on above: Performed By: #### L AB17, LAB62, QBY214, [id number], [id number] ####Statement Clerks Manager: LIDIA NEIL ([phone])[facility] ([facility])[address] Anion gap [Moles/Vol] 10 mmol/L Normal 3-13 [facility] Comment on above: Performed By: #### L AB17, LAB62, JXX947, VFI280, [id number] ####Statement Clerks Manager: LIDIA NEIL ([phone])[facility] ([facility])[address] AST [Catalytic activity/Vol] 45 U/L Normal 15-46 [facility] Comment on above: Performed By: #### L AB17, LAB62, VWM429, [id number], [id number] ####Statement Clerks Manager: LIDIA NEIL ([phone])[facility] ([facility])[address] Bilirubin [Mass/Vol] 0.3 mg/dL Normal 0.2-1.3 [facility] Comment on above: Performed By: #### L AB17, LAB62, KSI201, XHG304, [id number] ####Statement Clerks Manager: LIDIA NEIL ([phone])[facility] ([facility])[address] Calcium [Mass/Vol] 8.8 mg/dL Normal 8.4-10.4 [facility] Comment on above: Performed By: #### L AB17, LAB62, FPH643, [id number], [id number] ####Statement Clerks Manager: LIDIA NEIL ([phone])[facility] ([facility])[address] [place] [address] [place] Chloride [Moles/Vol] 103 mmol/L Normal 98-107 [facility] Comment on above: Performed By: #### L AB17, LAB62, UFV788, [id number], [id number] ####Statement Clerks Manager: LIDIA NEIL ([phone])[facility] ([facility])[address] CO2 [Moles/Vol] 24 mmol/L Normal 22-30 [facility] Comment on above: Performed By: #### Светлана AB17, LAB62, PEI899, [id number], [id number] ####Statement Clerks Manager: LIDIA NEIL ([phone])[facility] ([facility])[address] Creatinine [Mass/Vol] 1.01 mg/dL Normal 0.66-1.25 [facility] Comment on above: Performed By: #### Светлана AB17, LAB62, [id number], WUB152, [id number] ####Statement Clerks Manager: LIDIA NEIL ([phone])[facility] ([facility])[address] [place] [address] GLOMERULAR FILTRATION RATE ML/MIN/1.73 SQ M.PREDICTED 89.5 mL/min/1.73m*2 Normal >60.0 [facility] Comment on above: Result Comment: Calc ulation based on the Chronic Kidney Disease Epidemiology Collaboration (CKD-EPI) equation refit without adjustment for race Performed By: #### Светлана AB17, LAB62, MLC012, ABA459, [id number] ####Statement Clerks Manager: LIDIA NEIL ([phone])[facility] ([facility])[address] [place] [address] Glucose [Mass/Vol] 146 mg/dL High 70-100 [facility] Comment on above: Performed By: #### L AB17, LAB62, GEO822, SRW308, [id number] ####Statement Clerks Manager: LIDIA NEIL ([phone])[facility] ([facility])[address] Potassium [Moles/Vol] 4.8 mmol/L Normal 3.5-5.1 [facility] Comment on above: Performed By: #### L AB17, LAB62, TYM600, CGM075, [id number] ####Statement Clerks Manager: LIDIA NEIL ([phone])[facility] P[facility] ([facility])[address] Protein [Mass/Vol] 7.2 g/dL Normal 6.3-8.2 [facility] Comment on above: Performed By: #### L AB17, LAB62, CIW802, BQM403, [id number] ####Statement Clerks Manager: LIDIA NEIL ([phone])[facility] ([facility])[address] Sodium [Moles/Vol] 136 mmol/L Normal 135-145 [facility] Comment on above: Performed By: #### L AB17, LAB62, JPF314, ZSY972, [id number] ####Statement Clerks Manager: LIDIA NEIL ([phone])[facility] ([facility])[address] [place] [address] Urea nitrogen [Mass/Vol] 20 mg/dL Normal 9-20 [facility] Comment on above: Performed By: #### L AB17, LAB62, NRZ760, GBV245, [id number] ####Statement Clerks Manager: LIDIA NEIL ([phone])[facility]ITAL[facility] ([facility])[address] [place] [address] [place] CHEST WO IV CONTRASTon CT CHEST WO IV CONTRAST Normal [facility] CT Chest WO contraston 01-27 [facility] Radiology Study observation (narrative) [facility] Comprehensive metabolic 1998 panelon 01-27-2023 Albumin [Mass/Vol] 3.9 g/dL 3.5 - 5.0 g/dL [facility] ALP [Catalytic activity/Vol] 47 U/L 38 - 126 U/L [facility] ALT [Catalytic activity/Vol] 54 U/L High 0 - 49 U/L [facility] Anion gap [Moles/Vol] 10 mmol/L 3 - 13 mmol/L [facility] AST [Catalytic activity/Vol] 45 U/L 15 - 46 U/L [facility] Bilirubin [Mass/Vol] 0.3 mg/dL 0.2 - 1 .3 mg/dL [facility] Calcium [Mass/Vol] 8.8 mg/dL 8.4 - 10. 4 mg/dL [facility] Chloride [Moles/Vol] 103 mmol/L 98 - 10 7 mmol/L [facility] CO2 [Moles/Vol] 24 mmol/L 22 - 30 mmol/L [facility] Creatinine [Mass/Vol] 1.01 mg/dL 0.66 - 1.25 mg/dL [facility] Glucose [Mass/Vol] 146 mg/dL High 70 - 100 mg/dL [facility] Health Consulton 01-27-2023 Consult Normal [facility] HEMOGLOBIN A1Con 01-27-2023 Glucose [Mass/Vol] 97 mg/dL Normal [facility] Comment on above: Order Comment: If no t done within the last 3 mos Performed By: #### L AB90 ####Statement Clerks Manager: LIDIA NEIL ([phone])[facility] ([facility])[address] [place] [address] HbA1c (Bld) [Mass fraction] 5.0 % Normal <5.7 [facility] Comment on above: Order Comment: If no t done within the last 3 mos Result Comment: Norm al less than 5.7%Prediabetes 5.7% to 6.4%Diabetes 6.5% or higher--HgbA1C levels may not be accurate in patients who have renal disease, received recent blood transfusions, are anemic, or who have dyshemoglobinemia. Performed By: #### L AB90 ####Statement Clerks Manager: LIDIA NEIL ([phone])[facility] ([facility])[address] [place] [address] Laboratory - Chemistry and C hemistry - challengeon 01-27-2023 Glucose [Mass/Vol] 121 mg/dL High 70 - 100 mg/dL [facility] Glucose [Mass/Vol] 122 mg/dL High 70 - 100 mg/dL [facility] Troponin I.cardiac [Mass/Vol] ng/mL NINF - 0.034 ng/mL [facility] Glucose [Mass/Vol] 150 mg/dL High 70 - 100 mg/dL [facility] Troponin I.cardiac [Mass/Vol] ng/mL NINF - 0.034 ng/mL [facility] CK [Catalytic activity/Vol] 2364 U/L High 30 - 170 U/L [facility] Average glucose Estimated from glycated hemoglobin (Bld) [Mass/Vol] 97 mg/dL [facility] Troponin I.cardiac [Mass/Vol] ng/mL NINF - 0.034 ng/mL [facility] Procalcitonin [Mass/Vol] 0.11 ng/mL High 0.00 - 0.09 ng/mL [facility] Laboratory - Drug toxicology Ordered By: Leyda Cano on 01-27-2023 Amphetamines Ql (U) Negative Negative [facility] Benzodiazepines Ql (U) Negative Negative [facility] Cocaine Ql (U) Negative Negative [facility] Methadone Ql (U) Negative Negative [facility] alth Opiates Ql (U) Positive Negative [facility] Laboratory - Hematology and Cell countson 01-27-2023 HbA1c (Bld) [Mass fraction] 5.0 % [facility] - 5.7 % [facility] MAGNESIUMon 01-27-2023 Magnesium [Mass/Vol] 2.1 mg/dL Normal 1.6-2.3 [facility] Comment on above: Performed By: #### L AB17, LAB62, RGR954, [id number], [id number] ####Statement Clerks Manager: LIDIA NEIL ([phone])[facility] ([facility])[address] [place] [address] No Panel Informationon 01-27 Interpretation and review of laboratory results Abnormal [facility] Interpretation and review of laboratory results Abnormal [facility] Interpretation and review of laboratory results Abnormal [facility] No Panel InformationOrdered By: Leyda Cano on 01-27-2023 BARBITURATES Negative Negative [facility] OXYCODONE/OXYMORPHONE Negative Negative [facility] PCP Negative Negative [facility] No Panel InformationOrdered By: Ashkan Lofton on 01-27-2023 ETHANOL, URINE Not detected None Available. Reporting Limit 0.01 g/dL g/dL [facility] No Panel InformationOrdered By: Ross Luna on 01-27-2023 Interpretation and review of laboratory results Normal [facility] Legionella pneumophila Ag Not detected Not Detected [facility] Streptococcus pneumoniae Ag Not detected Not Detected [facility] PHOSPHORUSon 01-27-2023 Phosphate [Mass/Vol] 3.0 mg/dL Normal 2.5-4.5 [facility] Comment on above: Performed By: #### L AB17, LAB62, XHZ162, XJW184, [id number] ####Statement Clerks Manager: LIDIA NEIL ([id number])[facility] ([facility])[address] [place] [address] Procalcitonin [Mass/Vol]on 03-29-2022 Interpretation and review of laboratory results Abnormal [facility] Progress Noteon 01-27-2023 Progress Note Normal [facility] Progress Note Normal [facility] Progress Note 01/27/23 0402 Wean Screen SpO2>/=88% Yes [id number] HR <140 BPM Yes RR MAP >/= 65mmHg Yes Arterial pH >7.30 and <7.50 Yes Safety Screen Spontaneous Breathing Trial (SBT) FiO2 is greater than 50% Normal [facility] RESPIRATORY PATHOGENS PANEL BY PCRon 01-27-2023 RESPIRATORY PATHOGENS PANEL BY PCR Normal [facility] Comment on above: Performed By: #### L [id number] ####Statement Clerks Manager: FINN BONNER ([phone])[facility] ([facility])[address] [place] [address] Respiratory pathogens DNA an d RNA panel DESTINY+non-probe (Nph)on 01-27-2023 Adenovirus Not detected Not Detected [facility] th B. pertussis DNA DESTINY+probe Ql (Unsp spec) Not detected Not Detected [facility] Bordetella parapertussis Not detected Not Detected [facility] Chlamydia pneumoniae Not detected Not Detected [facility] Coronavirus 229E Not detected Not Detected [facility] Coronavirus HKU1 Not detected Not Detected [facility] Coronavirus NL63 Not detected Not Detected [facility] Coronavirus OC43 Not detected Not Detected [facility] FLUAV RNA DESTINY+non-probe Ql (Nph) Not detected Not Detected [facility] FLUBV RNA DESTINY+non-probe Ql (Nph) Not detected Not Detected [facility] Human Metapneumovirus Not detected Not Detected [facility] Human Rhinovirus/Enteroviru s Not detected Not Detected [facility] Interpretation and review of laboratory results Normal [facility] Mycoplasma pneumoniae Not detected Not Detected [facility] Parainfluenza 1 Not detected Not Detected [facility] Parainfluenza 2 Not detected Not Detected [facility] Parainfluenza 3 Not detected Not Detected [facility] Parainfluenza 4 Not detected Not Detected [facility] Respiratory Syncytial Virus Not detected Not Detected [facility] SARS-CoV-2 (COVID-19) RNA DESTINY+non-probe Ql (Nph) Not detected Not Detected [facility] TROPONIN Ion 01-27-2023 Troponin I.cardiac [Mass/Vol] ng/mL Normal <0.034 [facility] Comment on above: Result Comment: NATALIE Doss COMMENTS:Patients with high levels of Biotin oral intake (ie >5 mg/day) may have falsely decreased Troponin levels. Performed By: #### L [id number] ####Statement Clerks Manager: LIDIA NEIL ([phone])[facility] ([address] Troponin I.cardiac [Mass/Vol] ng/mL Normal <0.034 [facility] Comment on above: Result Comment: NATALIE Doss COMMENTS:Patients with high levels of Biotin oral intake (ie >5 mg/day) may have falsely decreased Troponin levels. Performed By: #### L [id number] ####Statement Clerks Manager: LIDIA NEIL ([phone])[facility] ([facility])[address] [place] [address] TROPONIN, WITH SERIAL REFLEX on 01-27-2023 Troponin I.cardiac [Mass/Vol] ng/mL Normal <0.034 [facility] Comment on above: Result Comment: NATALIE Doss COMMENTS:Patients with high levels of Biotin oral intake (ie >5 mg/day) may have falsely decreased Troponin levels. Performed By: #### L AB17, LAB62, GGL122, JRK280, [id number] ####Statement Clerks Manager: LIDIA NEIL ([phone])[facility] ([id number] Troponin I.cardiac [Mass/Vol ]on 01-27-2023 Interpretation and review of laboratory results Normal [facility] Interpretation and review of laboratory results Normal [facility] Interpretation and review of laboratory results Normal [facility] XR Chest Single viewon 01-27 [facility] RADI[facility] XR Chest Single viewOrdered By: Jeison Calzada on 01-27-2023 [facility] Work Phone: BLOOD CULTUREon 01-26-2023 Bacteria identified Cx Nom (Bld) Normal [facility] Comment on above: Performed By: #### L [id number] ####Statement Clerks Manager: FINN BONNER ([phone])[facility] ([facility])[address] [place] [address] Bacteria identified Cx Nom (Bld) Normal [facility] Comment on above: Performed By: #### L [id number] ####Statement Clerks Manager: FINN BONNER ([phone])[facility] ([facility])[address] [place] [address] BLOOD GAS, ARTERIAL(SWR AND SH[facility])on 01-26-2023 BASE EXCESS (MMOL/L) ARTERIAL BLOOD 7.0 mmol/L High -3.0-3.0 [facility] Comment on above: Performed By: #### L [id number] ####Statement Clerks Manager: FINN BONNER ([phone])[facility] ([facility])[address] [place] [address] CARBON DIOXIDE (MM HG) ARTERIAL BLOOD 69 mm(Hg) High 35-45 [facility] Comment on above: Performed By: #### L [id number] ####Statement Clerks Manager: FINN BONNER ([phone])[facility] ([facility])[address] [place] [address] [place] CO2 [Moles/Vol] 35.0 mmol/L High 23.0-27.0 [facility] Comment on above: Performed By: #### L [id number] ####Statement Clerks Manager: FINN BONNER ([phone])[facility] ([facility])[address] [place] [address] HCO3 (Bld) [Moles/Vol] 33.2 mmol/L High 21.0-25.0 [facility] Comment on above: Performed By: #### L [id number] ####Statement Clerks Manager: FINN BONNER ([phone])[facility]AC[facility]IAST[facility] ([facility])[address] [place] [address] OXYGEN (MM HG) ARTERIAL BLOOD 369 mm(Hg) High 80-100 [facility] Comment on above: Performed By: #### L [id number] ####Statement Clerks Manager: FINN BONNER ([phone])[facility]IAST[facility] ([facility])[address] [place] [address] OXYGEN SATURATION (%) ARTERIAL BLOOD 100.0 % High 95.0-98.0 [facility] Comment on above: Performed By: #### L [id number] ####Statement Clerks Manager: FINN BONNER ([phone])[facility]AC[facility]IAST[facility] ([facility])[address] [place] [address] pH (Bld) 7.292 [pH] Low 7.350-7.450 [facility] Comment on above: Performed By: #### L [id number] ####Statement Clerks Manager: FINN BONNER ([phone])[facility]ST[facility] ([facility])[address] [place] [address] SOURCE OF OXYGEN ETT Normal [facility] Comment on above: Performed By: #### L [id number] ####Statement Clerks Manager: FINN BONNER ([phone])[facility]IAST[facility] ([facility])[address] [place] [address] CALCIUM, IONIZEDon 3 CALCIUM IONIZED 4.40 mg/dL Normal 4.30-5.20 [facility] Comment on above: Performed By: #### L AB54 ####Statement Clerks Manager: LIDIA NEIL ([phone])[facility] ([facility])[address] [place] [address] PH, IONIZED CALCIUM 7.32 Normal 7.31-7.46 [facility] Comment on above: Performed By: #### L AB54 ####Statement Clerks Manager: LIDIA NEIL ([phone])[facility] ([facility])[address] [place] [address] CBC WITH AUTO DIFFERENTIALon 01-26-2023 Basophils (Bld) [#/Vol] 0.0 10*3/uL Normal 0.0-0.2 [facility] Comment on above: Performed By: #### L [id number] ####Statement Clerks Manager: FINN BONNER ([phone])[facility] ([facility])[address] [place] [address] [place] Basophils/100 WBC (Bld) 0.3 % Normal 0.0-2.0 [facility] Comment on above: Performed By: #### L [id number] ####Statement Clerks Manager: FINN BONNER ([phone])[facility] ([facility])[address] [place] [address] Eosinophils (Bld) [#/Vol] 0.2 10*3/uL Normal 0.0-0.5 [facility] Comment on above: Performed By: #### L [id number] ####Statement Clerks Manager: FINN BONNER ([phone])[facility] ([facility])[address] [place] [address] [place] Eosinophils/100 WBC (Bld) 1.9 % Normal 1.0-6.0 [facility] Comment on above: Performed By: #### L [id number] ####Statement Clerks Manager: FINN BONNER ([phone])[facility] ([facility])[address] [place] [address] Erythrocyte distribution width (RBC) [Ratio] 16.4 % High 11.5-14.5 [facility] Comment on above: Performed By: #### L [id number] ####Statement Clerks Manager: FINN BONNER ([phone])[facility] ([facility])[address] [place] [address] ERYTHROCYTE MEAN CORPUSCULAR HEMOGLOBIN CONCENTRATION (G/DL) BY AUTOMATED 30.2 % Low 32.0-36.0 [facility] Comment on above: Performed By: #### L [id number] ####Statement Clerks Manager: FINN BONNER ([phone])[facility] ([facility])[address] [place] [address] Hematocrit (Bld) [Volume fraction] 44.3 % Normal 40.0-52.0 [facility] Comment on above: Performed By: #### L [id number] ####Statement Clerks Manager: FINN BONNER ([phone])[facility] ([facility])[address] [place] [address] Hemoglobin (Bld) [Mass/Vol] 13.4 g/dL Normal 13.0-18.0 [facility] Comment on above: Performed By: #### L [id number] ####Statement Clerks Manager: FINN BONNER ([phone])[facility] ([facility])[address] [place] [address] [place] IMMATURE GRANS (10*3/UL) IN BLOOD BY AUTOMATED COUNT 0.0 10*3/uL Normal <=0.0 [facility] Comment on above: Performed By: #### L [id number] ####Statement Clerks Manager: FINN BONNER ([phone])[facility] ([facility])[address] [place] [address] [place] IMMATURE GRANS/100 LEUKOCYTES IN BLOOD BY AUTOMATED COUNT 0.2 % High <=0.0 [facility] Comment on above: Performed By: #### L [id number] ####Statement Clerks Manager: FINN BONNER ([phone])[facility] ([facility])[address] [place] [address] Lymphocytes (Bld) [#/Vol] 2.4 10*3/uL Normal 1.0-4.3 [facility] Comment on above: Performed By: #### L [id number] ####Statement Clerks Manager: FINN BONNER ([phone])[facility] ([facility])[address] [place] [address] [place] Lymphocytes/100 WBC (Bld) 19.5 % Low 20.0-40.0 [facility] Comment on above: Performed By: #### L [id number] ####Statement Clerks Manager: FINN BONNER ([phone])[facility] ([facility])[address] [place] [address] MCH (RBC) [Entitic mass] 26.0 pg Normal 26.0-34.0 [facility] Comment on above: Performed By: #### L [id number] ####Statement Clerks Manager: FINN BONNER ([phone])[facility] ([facility])[address] [place] [address] MCV (RBC) [Entitic vol] 86.0 fL Normal 80.0-98.0 [facility] Comment on above: Performed By: #### L [id number] ####Statement Clerks Manager: FINN BONNER ([phone])[facility] (SWRLAB)[address] [place] [address] [place] Monocytes (Bld) [#/Vol] 1.4 10*3/uL High 0.0-0.8 [facility] Comment on above: Performed By: #### L [id number] ####Statement Clerks Manager: FINN BONNER ([phone])[facility]ITAL[facility] (SWRLAB)[address] [place] [address] [place] Monocytes/100 WBC (Bld) 11.4 % High 2.0-10.0 [facility] Comment on above: Performed By: #### L [id number] ####Statement Clerks Manager: FINN BONNER ([phone])[place] [facility] [place] (SWRLAB)[address] [place] [address] [place] Neutrophils (Bld) [#/Vol] 8.3 10*3/uL High 1.8-7.0 [facility] Comment on above: Performed By: #### L [id number] ####Statement Clerks Manager: FINN BONNER ([phone])[facility]ITAL[facility] (SWRLAB)[address] [place] [address] [place] Neutrophils/100 WBC (Bld) 66.7 % Normal 40.0-80.0 [facility] Comment on above: Performed By: #### L [id number] ####Statement Clerks Manager: FINN BONNER ([phone])[facility]ITAL[facility] (SWRLAB)[address] [place] [address] [place] Platelet mean volume (Bld) [Entitic vol] 9.7 fL Normal 7.4-12.4 [facility] Comment on above: Result Comment: MPV is a calculated measurement using platelet volume ratio Performed By: #### L [id number] ####Statement Clerks Manager: FINN BONNER ([phone])[facility]ITAL[facility] (SWRLAB)[address] [place] [address] [place] Platelets (Bld) [#/Vol] 413 10*3/uL Normal 140-440 [facility] Comment on above: Performed By: #### L [id number] ####Statement Clerks Manager: FINN BONNER ([phone])[facility] [place] (SWRLAB)[address] [place] [address] [place] RBC (Bld) [#/Vol] 5.15 10*6/uL Normal 4.40-5.90 [facility] Comment on above: Performed By: #### L [id number] ####Statement Clerks Manager: FINN BONNER ([phone])[facility]ITAL[facility] (SWRLAB)[address] [place] [address] [place] WBC (Bld) [#/Vol] 12.4 10*3/uL High 3.6-10.7 [facility] Comment on above: Performed By: #### L [id number] ####Statement Clerks Manager: FINN BONNER ([phone])[facility] Z[facility]IASTMASIA (SWRLAB)[address] [place] [address] [place] CKon 01-26-2023 CK [Catalytic activity/Vol] 2412 U/L High 30-170 [facility] Comment on above: Performed By: #### L AB17, AXT706, NJL811, XNB301, LAB62 ####Statement Clerks Manager: LIDIA NEIL ([phone])[facility] (SBHLAB)[address] [place] [address] COMPLETE URINALYSISon 2022 AMORPHOUS CRYSTALS (#/HPF) IN URINE Loaded Abnormal Negative [facility] Comment on above: Performed By: #### L [id number] ####Statement Clerks Manager: FINN BONNER ([phone])[facility] (SACLAB)[address] [place] [address] BACTERIA (#/HPF) IN URINE Many Abnormal Negative [facility] Comment on above: Performed By: #### L [id number] ####Statement Clerks Manager: FINN BONNER ([phone])[facility] (SACLAB)[address] [place] [address] [place] BILIRUBIN, TOTAL PRESENCE IN URINE Negative Normal Negative [facility] Comment on above: Performed By: #### L [id number] ####Statement Clerks Manager: FINN BONNER ([phone])[facility] (SACLAB)[address] [place] [address] [place] Clarity (U) Extra Turbid Abnormal Clear [facility] Comment on above: Performed By: #### L [id number] ####Statement Clerks Manager: FINN BONNER ([phone])[facility] (SACLAB)[address] [place] [address] [place] Color (U) Yellow Normal Lt. Yellow [facility] Comment on above: Performed By: #### L [id number] ####Statement Clerks Manager: FINN BONNER ([phone])[facility] ([facility])[address] [place] [address] Glucose (U) [Mass/Vol] 50 mg/dL Normal Normal (<70) [facility] Comment on above: Performed By: #### L [id number] ####Statement Clerks Manager: FINN BONNER ([phone])[facility] ([facility])[address] [place] [address] HEMOGLOBIN PRESENCE IN URINE 0.5 mg/dL Abnormal Negative [facility] Comment on above: Performed By: #### L [id number] ####Statement Clerks Manager: FINN BONNER ([phone])[facility] ([facility])[address] [place] [address] HYALINE CASTS (#/LPF) IN URINE SEDIMENT BY MICROSCOPY Negative Normal Negative [facility] Comment on above: Performed By: #### L [id number] ####Statement Clerks Manager: FINN BONNER ([phone])[facility] ([facility])[address] [place] [address] Ketones Ql (U) Negative Normal Negative [facility] Comment on above: Performed By: #### L [id number] ####Statement Clerks Manager: FINN BONNER ([phone])[facility] ([facility])[address] [place] [address] LEUKOCYTE ESTERASE PRESENCE IN URINE BY TEST STRIP Negative Normal Negative [facility] Comment on above: Performed By: #### L [id number] ####Statement Clerks Manager: FINN BONNER ([phone])[facility] ([facility])[address] [place] [address] [place] MUCUS (#/LPF) IN URINE SEDIMENT Few Normal Negative [facility] Comment on above: Performed By: #### L [id number] ####Statement Clerks Manager: FINN BONNER ([phone])[facility] ([facility])[address] [place] [address] NITRITE PRESENCE IN URINE Negative Normal Negative [facility] Comment on above: Performed By: #### L [id number] ####Statement Clerks Manager: FINN BONNER ([phone])[facility] ([facility])[address] [place] [address] pH (U) 5.5 [pH] Normal 5.0-8.0 [facility] Comment on above: Performed By: #### L [id number] ####Statement Clerks Manager: FINN BONNER ([phone])[facility] ([facility])[address] [place] [address] Protein (U) [Mass/Vol] 30 mg/dL Abnormal Negative [facility] Comment on above: Performed By: #### L [id number] ####Statement Clerks Manager: FINN BONNER ([phone])[facility])[address] [place] [address] RBC (#/HPF) IN URINE SEDIMENT 3-5 Abnormal 0-2 [facility] Comment on above: Performed By: #### L AB347 ####Statement Clerks Manager: FINN BONNER ([phone])[facility])[address] [place] [address] Specific gravity (U) [Rel density] 1.027 Normal 1.005-1.030 [facility] Comment on above: Result Comment: NATALIE Doss COMMENTS:Interpret with caution due to sample age. Performed By: #### L [id number] ####Statement Clerks Manager: FINN BONNER ([phone])[facility])[address] [place] [address] SQUAMOUS EPITHELIAL CELLS (#/HPF) IN URINE SEDIMENT Negative Normal 3-5 [facility] Comment on above: Performed By: #### L [id number] ####Statement Clerks Manager: FINN BONNER ([phone])[facility])[address] [place] [address] UROBILINOGEN (MG/DL) IN URINE Normal Normal Normal (0-1) [facility] Comment on above: Performed By: #### L AB347 ####Statement Clerks Manager: FINN BONNER ([phone])[facility] (SACLAB)[address] WBC (LEUKOCYTE) (#/HPF) IN URINE SEDIMENT Negative Normal 0-5 [facility] Comment on above: Performed By: #### L AB347 ####Statement Clerks Manager: FINN BONNER ([phone])[facility] (SACLAB)[address] COMPREHENSIVE METABOLIC PANE Rafael 01-26-2023 Albumin [Mass/Vol] 4.2 g/dL Normal 3.5-5.0 [facility] Comment on above: Performed By: #### L AB17, GNL077, YAK019, CNP622, LAB62 ####Statement Clerks Manager: LIDIA NEIL ([phone])[facility] (SBHLAB)[address] ALP [Catalytic activity/Vol] 61 U/L Normal 38-126 [facility] Comment on above: Performed By: #### L AB17, KYO591, KHZ100, JWV801, LAB62 ####Statement Clerks Manager: LIDIA NEIL ([phone])[facility] (SBHLAB)[address] ALT [Catalytic activity/Vol] 29 U/L Normal 0-49 [facility] Comment on above: Performed By: #### L AB17, QXF634, PQD865, JDR074, LAB62 ####Statement Clerks Manager: LIDIA NEIL ([phone])[facility] (SBHLAB)[address] Anion gap [Moles/Vol] 8 mmol/L Normal 3-13 [facility] Comment on above: Performed By: #### L AB17, XIQ864, TSZ414, TPH942, LAB62 ####Statement Clerks Manager: LIDIA NEIL ([phone])[facility] (SBHLAB)[address] AST [Catalytic activity/Vol] 40 U/L Normal 15-46 [facility] Comment on above: Performed By: #### L AB17, ASD820, WSH367, PYG341, LAB62 ####Statement Clerks Manager: LIDIA NEIL ([phone])[facility] [place] (SBHLAB)[address] Bilirubin [Mass/Vol] 0.7 mg/dL Normal 0.2-1.3 [facility] Comment on above: Performed By: #### L AB17, ALX256, BDM314, LTP577, LAB62 ####Statement Clerks Manager: LIDIA NEIL ([phone])[facility] [place] (SBHLAB)[address] Calcium [Mass/Vol] 8.5 mg/dL Normal 8.4-10.4 [facility] Comment on above: Performed By: #### L AB17, TAY640, JVN984, XEN585, LAB62 ####Statement Clerks Manager: LIDIA NEIL ([phone])[facility] [place] (SBHLAB)[address] Chloride [Moles/Vol] 104 mmol/L Normal 98-107 [facility] Comment on above: Performed By: #### L AB17, HNL377, MDI821, CDV756, LAB62 ####Statement Clerks Manager: LIDIA NEIL ([phone])[facility] [place] (SBHLAB)[address] CO2 [Moles/Vol] 27 mmol/L Normal 22-30 [facility] Comment on above: Performed By: #### L AB17, DDP492, MDJ122, OCI820, LAB62 ####Statement Clerks Manager: LIDIA NEIL ([phone])[facility] [place] (SBHLAB)[address] Creatinine [Mass/Vol] 0.77 mg/dL Normal 0.66-1.25 [facility] Comment on above: Performed By: #### L AB17, DCD273, TYQ894, APA428, LAB62 ####Statement Clerks Manager: LIDIA NEIL ([phone])[facility] [place] (SBHLAB)[address] GLOMERULAR FILTRATION RATE ML/MIN/1.73 SQ M.PREDICTED >90.0 Normal >60.0 [facility] Comment on above: Result Comment: Calc ulation based on the Chronic Kidney Disease Epidemiology Collaboration (CKD-EPI) equation refit without adjustment for race Performed By: #### L AB17, FXG641, XKQ706, PEN216, LAB62 ####Statement Clerks Manager: LIDIA NEIL ([phone])[facility] (SBHLAB)[address] Glucose [Mass/Vol] 150 mg/dL High 70-100 [facility] Comment on above: Performed By: #### L AB17, LTP456, XOJ668, JRZ815, LAB62 ####Statement Clerks Manager: LIDIA NEIL ([phone])[facility] (SBHLAB)[address] Potassium [Moles/Vol] 4.2 mmol/L Normal 3.5-5.1 [facility] Comment on above: Performed By: #### L AB17, OBM852, GEY574, KJO262, LAB62 ####Statement Clerks Manager: LIDIA NEIL ([phone])[facility] (SBHLAB)[address] Protein [Mass/Vol] 7.7 g/dL Normal 6.3-8.2 [facility] Comment on above: Performed By: #### L AB17, BUN327, ALC770, FOZ351, LAB62 ####Statement Clerks Manager: LIDIA NEIL ([phone])[facility] (SBHLAB)[address] [place] [address] [place] Sodium [Moles/Vol] 139 mmol/L Normal 135-145 [facility] Comment on above: Performed By: #### L AB17, LXB147, OIZ015, YNB769, LAB62 ####Statement Clerks Manager: LIDIA NEIL ([phone])[facility] (SBHLAB)[address] [place] [address] [place] Urea nitrogen [Mass/Vol] 14 mg/dL Normal 9-20 [facility] Comment on above: Performed By: #### L AB17, KML595, MPX114, QYO351, LAB62 ####Statement Clerks Manager: LIDIA NEIL ([phone])[facility] [place] (SBHLAB)[address] [place] [address] Albumin [Mass/Vol] 4.6 g/dL Normal 3.5-5.0 [facility] Comment on above: Performed By: #### L AB17, [id number], BNP887, MUN156 ####Statement Clerks Manager: FINN BONNER ([phone])[facility] (SWRLAB)[address] [place] [address] ALP [Catalytic activity/Vol] 79 U/L Normal 38-126 [facility] Comment on above: Performed By: #### L AB17, [id number], HWS330, EPR180 ####Statement Clerks Manager: FINN BONNER ([phone])[facility] (SWRLAB)[address] [place] [address] ALT [Catalytic activity/Vol] 31 U/L Normal 0-49 [facility] Comment on above: Performed By: #### L AB17, [id number], XNG864, WGG152 ####Statement Clerks Manager: FINN BONNER ([phone])[facility] [place] (SWRLAB)[address] [place] [address] Anion gap [Moles/Vol] 8 mmol/L Normal 3-13 [facility] Comment on above: Performed By: #### L AB17, [id number], BTK199, KEW966 ####Statement Clerks Manager: FINN BONNER ([phone])[facility] (SWRLAB)[address] [place] [address] [place] AST [Catalytic activity/Vol] 27 U/L Normal 15-46 [facility] Comment on above: Performed By: #### L AB17, [id number], FWD638, PPL863 ####Statement Clerks Manager: FINN BONNER ([phone])[facility] (SWRLAB)[address] [place] [address] [place] Bilirubin [Mass/Vol] 0.5 mg/dL Normal 0.2-1.3 [facility] Comment on above: Performed By: #### L AB17, [id number], SMI836, MEV502 ####Statement Clerks Manager: FINN BONNER ([phone])[facility] NIEOT [place] (SWRLAB)[address] Calcium [Mass/Vol] 9.2 mg/dL Normal 8.4-10.4 [facility] Comment on above: Performed By: #### Светлана AB17, [id number], GIR100, CJJ731 ####Statement Clerks Manager: FINN BONNER ([phone])[facility] (SWRLAB)[address] [place] [address] [place] Chloride [Moles/Vol] 99 mmol/L Normal 98-107 [facility] Comment on above: Performed By: #### Светлана AB17, [id number], YUW439, MQV714 ####Statement Clerks Manager: FINN BONNER ([phone])[facility] (SWRLAB)[address] [place] [address] [place] CO2 [Moles/Vol] 34 mmol/L High 22-30 [facility] Comment on above: Performed By: #### Светлана AB17, [id number], HLM929, ZZR288 ####Statement Clerks Manager: FINN BONNER ([phone])[facility] (SWRLAB)[address] [place] [address] [place] Creatinine [Mass/Vol] 0.94 mg/dL Normal 0.66-1.25 [facility] Comment on above: Performed By: #### L AB17, [id number], EQG134, RCK276 ####Statement Clerks Manager: FINN BONNER ([phone])[facility] (SWRLAB)[address] GLOMERULAR FILTRATION RATE ML/MIN/1.73 SQ M.PREDICTED >90.0 Normal >60.0 [facility] Comment on above: Result Comment: Calc ulation based on the Chronic Kidney Disease Epidemiology Collaboration (CKD-EPI) equation refit without adjustment for race Performed By: #### Светлана AB17, [id number], GRW269, DWD500 ####Statement Clerks Manager: FINN BONNER ([phone])[facility] (SWRLAB)[address] [place] [address] [place] Glucose [Mass/Vol] 160 mg/dL High 70-100 [facility] Comment on above: Performed By: #### Светлана AB17, [id number], OYY414, PSG975 ####Statement Clerks Manager: FINN BONNER ([phone])[facility] (SWRLAB)[address] [place] [address] [place] Potassium [Moles/Vol] 3.8 mmol/L Normal 3.5-5.1 [facility] Comment on above: Performed By: #### Светлана AB17, [id number], OAC101, QCP729 ####Statement Clerks Manager: FINN BONNER ([id number])[facility]ITAL[facility] CR[facility]ZGERSON [facility] (SWRLAB)[address] [place] [address] [place] Protein [Mass/Vol] 8.7 g/dL High 6.3-8.2 [facility] Comment on above: Performed By: #### Светлана AB17, [id number], DWW405, ELP385 ####Statement Clerks Manager: FINN BONNER ([phone])[facility] (SWRLAB)[address] [place] [address] [place] Sodium [Moles/Vol] 141 mmol/L Normal 135-145 [facility] Comment on above: Performed By: #### L AB17, [id number], WKC694, GAX556 ####Statement Clerks Manager: FINN BONNER ([phone])[facility] (SWRLAB)[address] [place] [address] [place] Urea nitrogen [Mass/Vol] 13 mg/dL Normal 9-20 [facility] Comment on above: Performed By: #### L AB17, [id number], HIQ325, SYF159 ####Statement Clerks Manager: FINN BONNER ([phone])[facility] (SWRLAB)[address] [place] [address] ECG 12-LEADon 01-26-2023 ECG 12-LEAD IMPRESSION: SINUS RHYTHM BORDERLINE T ABNORMALITIES, ANT-LAT LEADS No change compared to previous ekg Electronically Signed On 01-26-2023 16:32:17 EST by Ramon Cunha [facility] ED Nursing Noteon 01-26-2023 ED Nursing Note Report to [facility] flight crew. Pt's sister given room number at [facility]. Chart to flight crew for [place]. [facility] called to let them know of pt departure Francois Murray RN 01/26/23 194 Normal [facility] ED Nursing Note Normal [facility] ED Nursing Note Prior to being sedat ed and intubated the pt gave this RN verbal consent to speak with brother Jose Alfredo Steele about his condition. Lizzeth Evans RN 01/26/23 190 Normal [facility] ED Nursing Note Dr. Cunha notified that pt is awake and gesturing to sister at bedside. Propofol drip increased to 40 mcg/kg/min Francois Murray RN 01/26/23 185 [facility] ED Nursing Note [facility] and they are sending [facility] life flight helicopter for pt. ETA 25 min Francois Murray RN 01/26/23 1845 Normal [facility] ED Nursing Note Report called to [place] [employer] MACHINE OPERATOR, Kim Murray RN 01/26/23 1738 Normal [facility] ED Nursing Note Chest tube removed a nd replaced with 28F by Dr. Cunha. Pt remains sedated and tolerated well. Francois Murray RN 01/26/23 1722 Normal [facility] ED Nursing Note Normal [facility] ED Nursing Note Normal [facility] ED Provider Noteon 11-15-202 3 ED Provider Note Normal [facility] ETHANOL, URINEon 01-26-2023 ETHANOL, URINE-CAT LIST Not detected Normal None Available. Reporting Limit 0.01 g/dL [facility] Comment on above: Result Comment: NATALIE Doss COMMENTS:NOTE:These results are for medical treatment only. Analysis performed using non-forensic procedures.This test has not been cleared by the [place] Food and Drug Administration (FDA). The FDA has determined that such clearance or approval is not necessary. The performance chararcteristics have been determined by the clinical laboratories of [facility]. Performed By: #### L AB389, [id number] ####Statement Clerks Manager: FINN BONNER ([phone])[facility] (S[facility])[address] [place] [address] LACTIC ACID WITH REFLEXon Lactate [Moles/Vol] 1.5 mmol/L Normal 0.7-2.0 [facility] Comment on above: Performed By: #### L [id number] ####Statement Clerks Manager: FINN BONNER ([phone])[facility] (SWRLAB)[address] [place] [address] LEGIONELLA AND STREPTOCOCCUS URINE ANTIGENon 01-26-2023 LEGIONELLA AND STREPTOCOCCUS URINE ANTIGEN Normal [facility] Comment on above: Performed By: #### L [id number] ####Statement Clerks Manager: FINN BONNER ([phone])[facility] ([facility])[address] [place] [address] [place] MAGNESIUMon 01-26-2023 Magnesium [Mass/Vol] 1.7 mg/dL Normal 1.6-2.3 [facility] Comment on above: Performed By: #### L AB17, MWB728, POX946, LRO481, LAB62 ####Statement Clerks Manager: LIDIA NEIL ([phone])[facility] (SBHLAB)[address] [place] [address] Magnesium [Mass/Vol] 2.0 mg/dL Normal 1.6-2.3 [facility] Comment on above: Performed By: #### L AB17, [id number], JDF080, ZGB048 ####Statement Clerks Manager: FINN BONNER ([phone])[facility] DEANNASIA (SWRLAB)[address] [place] [address] [place] MRSA BY PCRon 01-26-2023 MRSA BY PCR Normal [facility] Comment on above: Performed By: #### L [id number] ####Statement Clerks Manager: FINN BONNER ([phone])[facility] ([facility])[address] [place] [address] [place] PHOSPHORUSon 01-26-2023 Phosphate [Mass/Vol] 3.2 mg/dL Normal 2.5-4.5 [facility] Comment on above: Performed By: #### L AB17, KYL476, GKO260, BXX770, LAB62 ####Statement Clerks Manager: LIDIA NEIL ([phone])[facility] ([facility])[address] [place] [address] Phosphate [Mass/Vol] 3.1 mg/dL Normal 2.5-4.5 [facility] Comment on above: Performed By: #### L AB17, [id number], TIJ059, ZWT509 ####Statement Clerks Manager: FINN BONNER ([phone])[facility] JOSSELYN (SWRLAB)[address] [place] [address] PROCALCITONIN TESTon 023 PROCALCITONIN 0.11 ng/mL High 0.00-0.09 [facility] Comment on above: Result Comment: NATALIE R COMMENTS:PCT <0.50 = Low risk of severe sepsis and/or septic shock.PCT >2.00 = High risk of severe sepsis and/or septic shock. Performed By: #### L [id number] ####Statement Clerks Manager: FINN BONNER ([phone])[facility] ([facility])[address] [place] [address] [place] PROTIME AND APTTon aPTT Coag (Bld) [Time] 28.1 s Normal 20.0-30.5 [facility] Comment on above: Performed By: #### L [id number] ####Statement Clerks Manager: LIDIA NEIL ([id number])[facility] [place] [address] INR Coag (PPP) [Relative time] 1.0 {INR} Normal 0.9-1.1 [facility] Comment on above: Result Comment: Asael mmended Anticoagulant Therapy: SEE BELOW----- INR of 2.0 - 3.0 : - Prophylaxis of Venous Thrombosis (high-risk surgery) - Treatment of Venous Thrombosis - Treatment of Pulmonary Embolism (Includes tissue heart valves, Acute Myocardial Infarction to prevent systemic embolism, Valvular Heart Disease, and Atrial Fibrillation)----- INR of 2.5 - 3.5 : - Mechanical Prosthetic Valves (high risk) - If oral anticoagulant therapy is used to prevent Myocardial Infarction Performed By: #### L [id number] ####Statement Clerks Manager: LIDIA NEIL ([phone])[facility] ([facility])[address] [place] [address] PT Coag (PPP) [Time] 10.8 s Normal 9.0-12.0 [facility] Comment on above: Performed By: #### L [id number] ####Statement Clerks Manager: LIDIA NEIL ([phone])[facility] ([facility])[address] [place] [address] SARS-COV-2, FLU A/B, AND RSV COMBOon 01-26-2023 SARS-CoV-2 (COVID-19) RNA DESTINY+probe Ql (Unsp spec) Normal [facility] Comment on above: Performed By: #### L [id number] ####Statement Clerks Manager: FINN BONNER ([phone])[facility] J[facility]SE[facility] (SWRLAB)[address] [place] [address] THYROID STIMULATING HORMONEo n 01-26-2023 THYROID STIMULATING HORMONE 0.183 uIU/mL Low 0.465-4.680 [facility] Comment on above: Performed By: #### L [id number], [id number] ####Statement Clerks Manager: LIDIA NEIL ([phone])[facility] (SBHLAB)[address] [place] [address] [place] TRIGLYCERIDESon 01-26-2023 Triglyceride [Mass/Vol] 124 mg/dL Normal <150 [facility] Comment on above: Performed By: #### L AB17, [id number], [id number], [id number], LAB62 ####Statement Clerks Manager: LIDIA NEIL ([phone])[facility] (SBHLAB)[address] [place] [address] [place] TROPONIN Ion 01-26-2023 Troponin I.cardiac [Mass/Vol] ng/mL Normal <0.034 [facility] Comment on above: Result Comment: NATALIE Doss COMMENTS:Patients with high levels of Biotin oral intake (ie >5 mg/day) may have falsely decreased Troponin levels. Performed By: #### L AB747, [id number] ####Statement Clerks Manager: LIDIA NEIL ([phone])[facility] FALL (SBHLAB)[address] TROPONIN, WITH SERIAL REFLEX on 01-26-2023 Troponin I.cardiac [Mass/Vol] ng/mL Normal <0.034 [facility] Comment on above: Result Comment: NATALIE Doss COMMENTS:Patients with high levels of Biotin oral intake (ie >5 mg/day) may have falsely decreased Troponin levels. Performed By: #### L AB17, [id number], [id number], [id number] ####Statement Clerks Manager: FINN BONNER ([phone])[facility] (SWRLAB)[address] [place] [address] UNCONFIRMED DRUG SCREENon Amphetamines Ql (U) Negative Normal Negative [facility] Comment on above: Performed By: #### L AB389, [id number] ####Statement Clerks Manager: FINN BONNER ([phone])[facility] (SACLAB)[address] [place] [address] BARBITURATES Negative Normal Negative [facility] Comment on above: Performed By: #### L AB389, [id number] ####Statement Clerks Manager: FINN BONNER ([phone])[facility] (SACLAB)[address] [place] [address] Benzodiazepines Ql (U) Negative Normal Negative [facility] Comment on above: Performed By: #### L AB389, [id number] ####Statement Clerks Manager: FINN BONNER ([phone])[facility] ([facility]AC[facility])[address] [place] [address] Cocaine Ql (U) Negative Normal Negative [facility] Comment on above: Performed By: #### L AB389, [id number] ####Statement Clerks Manager: FINN BONNER ([phone])[facility] ([facility])[address] [place] [address] Methadone Ql (U) Negative Normal Negative [facility] Comment on above: Performed By: #### L AB389, [id number] ####Statement Clerks Manager: FINN BONNER ([phone])[facility] ([facility])[address] [place] [address] Opiates Ql (U) Positive Normal Negative [facility] Comment on above: Performed By: #### L AB389, [id number] ####Statement Clerks Manager: FINN BONNER ([phone])[facility] ([facility])[address] [place] [address] OXYCODONE/OXYMORPHONE Negative Normal Negative [facility] Comment on above: Performed By: #### L AB389, [id number] ####Statement Clerks Manager: FINN BONNER ([phone])[facility] ([facility])[address] [place] [address] PCP Negative Normal Negative [facility] Comment on above: Result Comment: ORDE R COMMENTS:The expected value for the drugs listed above is Negative.The following drugs or drug groups have been screened for by Immunoassay at the following thresholds:Amphetamine class(1000 ng/mL)Barbiturates(200 ng/mLBenzodiazepines(200 ng/mL)Cocaine(300 ng/mL)Methadone(300 ng/mL)Opiates(300 ng/mL)Oxycodone(100 ng/mL)PCP(25 ng/mL)POSITIVE results are NOT confirmed by a more specific alternative method unless requested. If confirmation is needed, request confirmation under separate order.NOTE: These results are for medical treatment only. Analysis performed using non-forensic procedures. Performed By: #### L AB389, [id number] ####Statement Clerks Manager: FINN BONNER ([phone])[facility] ([address] XR Chest Single viewon 01-26 FINDINGS/IMPRESSION: Limitations: Patient positioning/field-of-v iew. Right hemithorax not included on the [id number]-qm-pmju Lines, tubes, and devices: Endotracheal tube has its tip about 6.5 cm above the chun. NG tube has its tip likely within the stomach, distal portion not included on the rmvqq-rx-zgyk. Left-sided chest tube appears slightly retracted with its tip in the left perihilar region. Cardiomediastinal silhouette: Heart size is within normal limits. Lungs/Pleura: Streaky bibasilar atelectasis/pneumonia. Questional trace left pleural effusion. No discrete pneumothorax. Unchanged Osseous structures: Unchanged in appearance. Soft tissues: No soft tissue abnormality is detected. Report Dictated on Electronically Signed By: Vicente Gillette MD Electronically Signed Date/Time: 01/26/2023 6:15 PM EST [employer] Patient Name: LUIS STEELE : 1970 Exam Date/Time: 01/26/2023 17:07 Procedure: XR CHEST 1 VIEW Ordering Provider: CUNHA AUSTIN Reason For Exam: INTUBATION CHEST - PORTABLE: CLINICAL INDICATION: Intubation. TECHNIQUE: Portable AP COMPARISON: Radiographs earlier the same day 4:25 PM. [facility] [employer] Daysi Gillette MD - 01/26/2023 Patient Name: LUIS STEELE : 1970 Exam Date/Time: 01/26/2023 17:07 Procedure: XR CHEST 1 VIEW Ordering Provider: CUNHA AUSTIN Reason For Exam: INTUBATION CHEST - PORTABLE: CLINICAL INDICATION: Intubation. TECHNIQUE: Portable AP COMPARISON: Radiographs earlier the same day 4:25 PM. IMPRESSION: FINDINGS/IMPRESSION: Limitations: Patient positioning/field-of-v iew. Right hemithorax not included on the yiwft-ch-bhhj Lines, tubes, and devices: Endotracheal tube has its tip about 6.5 cm above the chun. NG tube has its tip likely within the stomach, distal portion not included on the yezdh-me-cegg. Left-sided chest tube appears slightly retracted with its tip in the left perihilar region. Cardiomediastinal silhouette: Heart size is within normal limits. Lungs/Pleura: Streaky bibasilar atelectasis/pneumonia. Questional trace left pleural effusion. No discrete pneumothorax. Unchanged Osseous structures: Unchanged in appearance. Soft tissues: No soft tissue abnormality is detected. Report Dictated on Electronically Signed By: Vicente Gillette MD Electronically Signed Date/Time: 01/26/2023 6:15 PM EST [facility] Radiology Study observation (narrative) [facility] [employer] 1. New endotracheal tube in satisfactory position. 2. Left-sided chest tube. 3. No residual left-sided pneumothorax. Report Dictated on Electronically Signed By: Jordin Dalton MD Electronically Signed Date/Time: 01/26/2023 4:30 PM [employer] Patient Name: LUIS STEELE : 1970 Exam Date/Time: 01/26/2023 16:21 Procedure: XR CHEST 1 VIEW Ordering Provider: CUNHA AUSTIN Reason For Exam: Shortness of breath CLINICAL INFORMATION: Respiratory distress. Intubation. Chest tube. Pneumothorax. Portable view of the chest at 1625 hours is provided and compared to a previous study of the same date at 1515 hours. FINDINGS: An endotracheal tube is now seen with its tip approximately 3 cm above the chun. An enteric tube extends into the stomach. The cardiac silhouette and mediastinum are otherwise unremarkable. A left-sided chest tube is now in place. No residual pneumothorax is appreciated. [facility] [employer] Jordin Dalton MD - 01/26/2023 Patient Name: LUIS STEELE : 1970 Exam Date/Time: 01/26/2023 16:21 Procedure: XR CHEST 1 VIEW Ordering Provider: CUNHA AUSTIN Reason For Exam: Shortness of breath CLINICAL INFORMATION: Respiratory distress. Intubation. Chest tube. Pneumothorax. Portable view of the chest at 1625 hours is provided and compared to a previous study of the same date at 1515 hours. FINDINGS: An endotracheal tube is now seen with its tip approximately 3 cm above the chun. An enteric tube extends into the stomach. The cardiac silhouette and mediastinum are otherwise unremarkable. A left-sided chest tube is now in place. No residual pneumothorax is appreciated. IMPRESSION: 1. New endotracheal tube in satisfactory position. 2. Left-sided chest tube. 3. No residual left-sided pneumothorax. Report Dictated on Electronically Signed By: Jordin Dalton MD Electronically Signed Date/Time: 01/26/2023 4:30 PM [facility] Radiology Study observation (narrative) [facility] FINDINGS/IMPRESSION: 1. Lines/Tubes/Devices/Patiño rdware: None. 2. Lungs: No consolidation or pulmonary edema. Changes of COPD. Fibrotic changes and bronchiectasis at the lung bases. Surgical clips or sutures within the right upper lung. 3. Pleura: Large left pneumothorax. No pneumothorax or large pleural effusions. 4. Heart and mediastinum: No significant mediastinal shift. Normal cardiomediastinal contours. CRITICAL TEST COMMUNICATION: Dr. Cunha was notified by telephone today at 3:34 PM. Report Dictated on Electronically Signed By: Maurice Hernandez MD Electronically Signed Date/Time: 01/26/2023 3:35 PM [facility] Patient Name: LUIS STEELE : 1970 Exam Date/Time: 01/26/2023 15:10 Procedure: XR CHEST 1 VIEW Ordering Provider: CUNHA AUSTIN Reason For Exam: DYSPNEA EXAM TYPE: RADIOLOGIC EXAMINATION, CHEST, SINGLE VIEW FRONTAL (CXR SINGLE VIEW) EXAM DATE AND TIME: 01/26/2023 3:10 PM EST INDICATION: Dyspnea COMPARISON: Chest radiograph on 12/04/2022 TECHNIQUE: A single frontal view of the thorax was obtained and reviewed. Special views: None. [facility] RADIOLOGY SYSTEM Maurice Hernandez MD - 01/26/2023 [facility] 1970 [id number] Exam Date/Time: 01/26/2023 15:10 Procedure: XR CHEST 1 VIEW Ordering Provider: CUNHA AUSTIN Reason For Exam: DYSPNEA EXAM TYPE: RADIOLOGIC EXAMINATION, CHEST, SINGLE VIEW FRONTAL (CXR SINGLE VIEW) EXAM DATE AND TIME: 01/26/2023 3:10 PM EST INDICATION: Dyspnea COMPARISON: Chest radiograph on 12/04/2022 TECHNIQUE: A single frontal view of the thorax was obtained and reviewed. Special views: None. IMPRESSION: FINDINGS/IMPRESSION: 1. Lines/Tubes/Devices/Patiño rdware: None. 2. Lungs: No consolidation or pulmonary edema. Changes of COPD. Fibrotic changes and bronchiectasis at the lung bases. Surgical clips or sutures within the right upper lung. 3. Pleura: Large left pneumothorax. No pneumothorax or large pleural effusions. 4. Heart and mediastinum: No significant mediastinal shift. Normal cardiomediastinal contours. CRITICAL TEST COMMUNICATION: Dr. Cunha was notified by telephone today at 3:34 PM. Report Dictated on Electronically Signed By: Maurice Hernandez MD Electronically Signed Date/Time: 01/26/2023 3:35 PM EST [facility] Radiology Study observation (narrative) [facility] XR Chest Single viewOrdered By: Daysi Gillette on 01-26-2023 [facility] Work Phone: XR Chest Single viewOrdered By: Jordin Dalton on 01-26-2023 [facility] Work Phone: XR Chest Single viewOrdered By: Maurice Hernandez on 01-26-2023 [employer] Phone: BASIC METABOLIC PANELon - Anion gap [Moles/Vol] 3 mmol/L Normal 3-13 [facility] Comment on above: Performed By: #### L [id number], [id number], LAB15 ####Statement Clerks Manager: FINN BONNER ([phone])[facility] NIETO [facility]ITTMAN (SWRLAB)[address] Calcium [Mass/Vol] 9.3 mg/dL Normal 8.4-10.4 [facility] Comment on above: Performed By: #### L AB747, [id number], LAB15 ####Statement Clerks Manager: FINN BONNER ([phone])[facility]ITAL[facility] DE LA CRUZGERSON RITTMAN (SWRLAB)[address] [place] [address] [place] Chloride [Moles/Vol] 103 mmol/L Normal 98-107 [facility] Comment on above: Performed By: #### L AB747, [id number], LAB15 ####Statement Clerks Manager: FINN BONNER ([phone])[facility] DE LA CRUZGERSON RITTMAN (SWRLAB)[address] [place] [address] [place] CO2 [Moles/Vol] 30 mmol/L Normal 22-30 [facility] Comment on above: Performed By: #### L AB747, [id number], LAB15 ####Statement Clerks Manager: FINN BONNER ([phone])[facility] [place] [place] (SWRLAB)[address] [place] [address] [place] Creatinine [Mass/Vol] 0.89 mg/dL Normal 0.66-1.25 [facility] Comment on above: Performed By: #### L AB747, [id number], LAB15 ####Statement Clerks Manager: FINN BONNER ([phone])[facility] DE LA CRUZGERSON RITTMAN (SWRLAB)[address] [place] [address] GLOMERULAR FILTRATION RATE ML/MIN/1.73 SQ M.PREDICTED >90.0 Normal >60.0 [facility] Comment on above: Result Comment: Calc ulation based on the Chronic Kidney Disease Epidemiology Collaboration (CKD-EPI) equation refit without adjustment for race Performed By: #### L AB747, [id number], LAB15 ####Statement Clerks Manager: FINN BONNER ([phone])[facility] [place] [place] (SWRLAB)[address] [place] [address] [place] Glucose [Mass/Vol] 159 mg/dL High 70-100 [facility] Comment on above: Performed By: #### L AB747, [id number], LAB15 ####Statement Clerks Manager: FINN BONNER ([phone])[facility] [place] (SWRLAB)[address] Potassium [Moles/Vol] 4.2 mmol/L Normal 3.5-5.1 [facility] Comment on above: Performed By: #### L AB747, [id number], LAB15 ####Statement Clerks Manager: FINN BONNER ([phone])[facility] [place] (SWRLAB)[address] [place] [address] [place] Sodium [Moles/Vol] 137 mmol/L Normal 135-145 [facility] Comment on above: Performed By: #### L AB747, [id number], LAB15 ####Statement Clerks Manager: FINN BONNER ([phone])[facility] NIET[facility] [place] (SWRLAB)[address] [place] [address] Urea nitrogen [Mass/Vol] 21 mg/dL High 9-20 [facility] Comment on above: Performed By: #### L AB747, [id number], LAB15 ####Statement Clerks Manager: FINN BONNER ([phone])[facility] NIETO [place] (SWRLAB)[address] [place] [address] BLOOD GAS, VENOUS (SWR AND S HC)on 12-04-2022 BASE EXCESS (MMOL/L) IN VENOUS BLOOD 4.0 mmol/L High -3.0-3.0 [facility] Comment on above: Performed By: #### L [id number] ####Statement Clerks Manager: FINN BONNER ([phone])[facility] [place] (SWRLAB)[address] CARBON DIOXIDE (MM HG) IN VENOUS BLOOD 50 mm(Hg) Normal 40-55 [facility] Comment on above: Performed By: #### L [id number] ####Statement Clerks Manager: FINN BONNER ([phone])[facility] NIETO [place] (SWRLAB)[address] [place] [address] [place] CO2 [Moles/Vol] 31.0 mmol/L High 24.0-28.0 [facility] Comment on above: Performed By: #### L [id number] ####Statement Clerks Manager: FINN BONNER ([phone])[facility] NIETO [place]TMAN (SWRLAB)[address] [place] [address] [place] HCO3 (Bld) [Moles/Vol] 29.1 mmol/L High 23.0-27.0 [facility] Comment on above: Performed By: #### L [id number] ####Statement Clerks Manager: FINN BONNER ([phone])[facility] [place] [place] (SWRLAB)[address] OXYGEN (MM HG) IN VENOUS BLOOD 99 mm(Hg) Normal [facility] Comment on above: Performed By: #### L [id number] ####Statement Clerks Manager: FINN BONNER ([phone])[facility] [place]ET[facility] [place] (SWRLAB)[address] OXYGEN SATURATION (%) IN VENOUS BLOOD 97.0 % High 60.0-80.0 [facility] Comment on above: Performed By: #### L [id number] ####Statement Clerks Manager: FINN BONNER ([phone])[facility] [place] (SWRLAB)[address] [place] [address] [place] pH (Bld) 7.373 [pH] Normal 7.310-7.410 [facility] Comment on above: Performed By: #### L [id number] ####Statement Clerks Manager: FINN BONNER ([phone])[employer] [place]ETO [place] (SWRLAB)[address] SOURCE OF OXYGEN Nasal cannula Normal [facility] Comment on above: Result Comment: 4 L Performed By: #### L [id number] ####Statement Clerks Manager: FINN BONNER ([phone])[facility] JOSSELYN (SWRLAB)[address] Basic metabolic 1998 panelon 12-04-2022 Anion gap [Moles/Vol] 3 mmol/L 3 - 13 mmol/L [facility] Calcium [Mass/Vol] 9.3 mg/dL 8.4 - 10. 4 mg/dL [facility] Chloride [Moles/Vol] 103 mmol/L 98 - 10 7 mmol/L [facility] CO2 [Moles/Vol] 30 mmol/L 22 - 30 mmol/L [facility] Creatinine [Mass/Vol] 0.89 mg/dL 0.66 - 1.25 mg/dL [facility] GFR/1.73 sq M.predicted MDRD (S/P/Bld) [Vol rate/Area] - PINF [facility] Comment on above: Calculation based on the Chronic Kidney Disease Epidemiology Collaboration (CKD-EPI) equation refit without adjustment for race Glucose [Mass/Vol] 159 mg/dL High 70 - 100 mg/dL [facility] Interpretation and review of laboratory results Abnormal [facility] Potassium [Moles/Vol] 4.2 mmol/L 3.5 - 5.1 mmol/L [facility] Sodium [Moles/Vol] 137 mmol/L 135 - 145 mmol/L [facility] Urea nitrogen [Mass/Vol] 21 mg/dL High 9 - 20 mg/dL [facility] CBC (HEMOGRAM)on 12-04-2022 Erythrocyte distribution width (RBC) [Ratio] 23.9 % High 11.5-14.5 [facility] Comment on above: Performed By: #### L [id number] ####Statement Clerks Manager: FINN BONNER ([phone])[facility]ITAL[facility] JOSSELYN (SWRLAB)[address] ERYTHROCYTE MEAN CORPUSCULAR HEMOGLOBIN CONCENTRATION (G/DL) BY AUTOMATED 29.8 % Low 32.0-36.0 [facility] Comment on above: Performed By: #### L [id number] ####Statement Clerks Manager: FINN BONNER ([phone])[facility] ZACARIASTMAN (SWRLAB)[address] [place] [address] Hematocrit (Bld) [Volume fraction] 34.9 % Low 40.0-52.0 [facility] Comment on above: Performed By: #### L [id number] ####Statement Clerks Manager: FINN BONNER ([phone])[facility] ZACARIASTMAN (SWRLAB)[address] [place] [address] Hemoglobin (Bld) [Mass/Vol] 10.4 g/dL Low 13.0-18.0 [facility] Comment on above: Performed By: #### L [id number] ####Statement Clerks Manager: FINN BONNER ([phone])[facility] ZACARIASTMAN (SWRLAB)[address] [place] [address] MCH (RBC) [Entitic mass] 24.5 pg Low 26.0-34.0 [facility] Comment on above: Performed By: #### L [id number] ####Statement Clerks Manager: FINN BONNER ([phone])[facility] ZACARIASTMAN (SWRLAB)[address] [place] [address] MCV (RBC) [Entitic vol] 82.3 fL Normal 80.0-98.0 [facility] Comment on above: Performed By: #### L [id number] ####Statement Clerks Manager: FINN BONNER ([id number])[facility] NIETO [facility]TMAN (SWRLAB)[address] [place] [address] Platelet mean volume (Bld) [Entitic vol] 8.9 fL Normal 7.4-12.4 [facility] Comment on above: Performed By: #### L [id number] ####Statement Clerks Manager: FINN BONNER ([phone])[facility] ZACARIASTMAN (SWRLAB)[address] [place] [address] [place] PLATELETS (10*3/UL) IN BLOOD AUTOMATED COUNT 435 10*3/uL Normal 140-440 [facility] Comment on above: Performed By: #### L [id number] ####Statement Clerks Manager: FINN BONNER ([phone])[facility] ZACARIASTMAN (SWRLAB)[address] [place] [address] RBC (Bld) [#/Vol] 4.24 10*6/uL Low 4.40-5.90 [facility] Comment on above: Performed By: #### L [id number] ####Statement Clerks Manager: FINN BONNER ([phone])[facility] GERSON DEANNTMAN (SWRLAB)[address] [place] [address] WBC (Bld) [#/Vol] 10.7 10*3/uL Normal 3.6-10.7 [facility] Comment on above: Performed By: #### L [id number] ####Statement Clerks Manager: FINN BONNER ([phone])[facility] ZACARIASTMAN (SWRLAB)[address] [place] [address] CBC panel Auto (Bld)Ordered By: Geno Pardo on 12-04-2022 Erythrocyte distribution width (RBC) [Ratio] 23.9 % High 11.5 - 14.5 % [facility] Hematocrit (Bld) [Volume fraction] 34.9 % Low 40.0 - 52.0 % [facility] Hemoglobin (Bld) [Mass/Vol] 10.4 g/dL Low 13.0 - 18.0 g/dL [facility] Interpretation and review of laboratory results Abnormal [facility] MCH (RBC) [Entitic mass] 24.5 pg Low 26.0 - 34.0 pg [facility] MCHC (RBC) [Mass/Vol] 29.8 % Low 32.0 - 36.0 % [facility] MCV (RBC) [Entitic vol] 82.3 fL 80.0 - 98.0 fL [facility] Platelet mean volume (Bld) [Entitic vol] 8.9 fL 7.4 - 12.4 fL [facility] Platelets (Bld) [#/Vol] 435 10*3/uL 140 - 440 10*3/uL [facility] RBC (Bld) [#/Vol] 4.24 10*6/uL Low 4.40 - 5.9 0 10*6/uL [facility] WBC (Bld) [#/Vol] 10.7 10*3/uL 3.6 - 10.7 10*3/uL [facility] ECG 12-LEADon 12-04-2022 ECG 12-LEAD IMPRESSION: Sinus tachycardia Compared to ECG 07/01/2021 05:12:25 Atrial abnormality no longer present T-wave abnormality no longer present Electronically Signed On 12-04-2022 3:23:19 EDT by Kelton Enrique Normal [facility] ED Nursing Noteon 12-04-2022 ED Nursing Note IV started by [facility] to Left hand by thumb dc'd by us. IV would not flush properly or draw back. IV cather intact. Site dressed with gauze & secured with tape. Luis Antonio Manuel 12/04/22 0237 Normal [facility] ED Nursing Note Pt comes in VIA squa d to room 6 for shortness of breath, Pt was initially 86 RA prior to squad arrived and they gave him DuoNeb and a non-rebreather and pt incresased to 99 on 4L NC. Pt complains of chest tightness and EKG done and MD at bedside. Normal [facility] ED Provider Noteon ED Provider Note Normal [facility] - Chemistry and C hemistry - challengeon 12-04-2022 Troponin I.cardiac [Mass/Vol] ng/mL NINF - 0.034 ng/mL [facility] CO2 [Moles/Vol] 31.0 mmol/L High 24.0 - 28.0 mmol/L [facility] HCO3 (Bld) [Moles/Vol] 29.1 mmol/L High 23.0 - 27.0 mmol/L [facility] Oxygen (Bld) [Partial pressure] 99 mm[Hg] mm(Hg) [facility] pH (Bld) 7.373 [pH] 7.310 - 7.410 [facility] Laboratory - Microbiology an d Antimicrobial susceptibilityon 12-04-2022 FLUAV RNA DESTINY+probe Ql (Resp) Not detected Not Detected [facility] FLUBV RNA DESTINY+probe Ql (Resp) Not detected Not Detected [facility] RSV RNA DESTINY+probe Ql (Resp) Not detected Not Detected [facility] SARS-CoV-2 (COVID-19) RNA DESTINY+probe Ql (Resp) Not detected Not Detected [facility] SARS-CoV-2 (COVID-19) RNA DESTINY+probe Ql (Unsp spec) Methodology: real-time, RT-PCR The SARS-CoV-2, Flu A/B, and RSV Combo assay is intended for in vitro diagnostic use under the FDA Emergency Use Authorization (EUA). This test has not been FDA cleared or approved. In compliance with this authorization, please visit www.fda.gov/media/3413 35/download or www.fda.gov/media/1426 36/download to access the applicable information sheets. [facility] NT PRO BNPon 12-04-2022 NT PRO BNP <20 Normal <20-300 [facility] Comment on above: Performed By: #### L [id number], [id number], [id number] ####Statement Clerks Manager: FINN BONNER ([phone])[facility] (SWRLAB)[address] [place] [address] Natriuretic peptide B [Mass/ Vol]on 12-04-2022 Natriuretic peptide B (Bld) [Mass/Vol] pg/mL <20 - 300 pg/mL [facility] No Panel Informationon 12-04 P [place] 77 degrees [facility] AL Interval 137 ms [facility] QRS [place] 80 degrees [facility] QRSD Interval [address] [facility] QT Interval 318 ms [facility] QTC Interval 428 ms [facility] T Wave [place] 73 degrees [facility] Sinus tachycardia Compared to ECG 07/01/2021 05:12:25 Atrial abnormality no longer present T-wave abnormality no longer present Electronically Signed On 12-04-2022 3:23:19 EDT by Kelton Enrique CV Kelton Smith MD - 12/04/2022 IMPRESSION: Sinus tachycardia Compared to ECG 07/01/2021 05:12:25 Atrial abnormality no longer present T-wave abnormality no longer present Electronically Signed On 12-04-2022 3:23:19 EDT by Kelton Enrique [facility] Interpretation and review of laboratory results Normal [facility] BASE EXCESS 4.0 mmol/L High -3.0 - 3.0 mmol/L [facility] Interpretation and review of laboratory results Abnormal [facility] pCO2 50 [facility] Source Of Oxygen Nasal cannula [facility] Comment on above: 4 L [facility] SARS-COV-2, FLU A/B, AND RSV COMBOon 12-04-2022 SARS-CoV-2 (COVID-19) RNA DESTINY+probe Ql (Unsp spec) Normal [facility] Comment on above: Performed By: #### L [id number] ####Statement Clerks Manager: FINN BONNER ([phone])[facility] [employer] ([email or web address])[address] [place] [address] SARS-CoV-2, Flu A/B, and RSV Comboon 12-04-2022 Interpretation and review of laboratory results Normal [facility] TROPONIN Ion 12-04-2022 Troponin I.cardiac [Mass/Vol] ng/mL Normal <0.034 [facility] Comment on above: Result Comment: ORDE R COMMENTS:Patients with high levels of Biotin oral intake (ie >5 mg/day) may have falsely decreased Troponin levels. Performed By: #### L [id number], [id number], [id number] ####Statement Clerks Manager: FINN BONNER ([phone])[facility] (SWRL[facility])[address] [place] [address] Troponin I.cardiac [Mass/Vol ]on 12-04-2022 Patients with high levels of Biotin oral intake (ie >5 mg/day) may have falsely decreased Troponin levels. [facility] Vital signson 12-04-2022 Heart rate 108 /min bpm [facility] Oxygen saturation in Blood 97.0 % High 60.0 - 80.0 % [facility] XR Chest Single viewon 12-04 Postoperative change s on the right. Chronic obstructive pulmonary disease Report Dictated on Electronically Signed By: Jordin Urrutia MD Electronically Signed Date/Time: 12/04/2022 3:50 AM EDT [facility] Patient Name: LUIS STEELE : 1970 Exam Date/Time: 12/04/2022 02:58 Procedure: XR CHEST 1 VIEW Ordering Provider: ENRIQUE NICHOLAS Reason For Exam: Shortness of breath PORTABLE CHEST CLINICAL INDICATION: Shortness of breath TECHNIQUE: Portable AP COMPARISON: One week ago FINDINGS: The heart and mediastinum are normal. Hyperinflation of the lungs is noted along with accentuated interstitial opacities. Elongated opacity in the left upper hemithorax is likely pleural/parenchymal scarring without change. No new consolidation or atelectasis. Surgical clips are present in the right upper hemithorax. Costophrenic angles are sharp. Old left rib fracture is noted. [facility] Jordin Urrutia MD - 12/04/2022 Patient Name: LUIS STEELE : 1970 Exam Date/Time: 12/04/2022 02:58 Procedure: XR CHEST 1 VIEW Ordering Provider: ENRIQUE NICHOLAS Reason For Exam: Shortness of breath PORTABLE CHEST CLINICAL INDICATION: Shortness of breath TECHNIQUE: Portable AP COMPARISON: One week ago FINDINGS: The heart and mediastinum are normal. Hyperinflation of the lungs is noted along with accentuated interstitial opacities. Elongated opacity in the left upper hemithorax is likely pleural/parenchymal scarring without change. No new consolidation or atelectasis. Surgical clips are present in the right upper hemithorax. Costophrenic angles are sharp. Old left rib fracture is noted. IMPRESSION: Postoperative changes on the right. Chronic obstructive pulmonary disease Report Dictated on Electronically Signed By: Jordin Urrutia MD Electronically Signed Date/Time: 12/04/2022 3:50 AM EDT [facility] Radiology Study observation (narrative) [facility] [employer] XR Chest Single viewOrdered By: Jordin Urrutia on 12-04-2022 [employer] Work Phone: ED Nursing Noteon 11-27-2022 ED Nursing Note Patient provided wit h new set of scrub pants as he spit up on his pants. Patient given urinal to void. Maeve Jauregui RN 11/27/222045 Normal [facility] ED Nursing Note Normal [facility] ED Provider Noteon 3 ED Provider Note Normal [facility] XR Chest Single viewon 11-27 1. Stable examination. No acute findings. Report Dictated on Electronically Signed By: Hamlet Yoder MD Electronically Signed Date/Time: 11/27/2022 8:56 PM EDT [facility] Patient Name: LUIS STEELE : 1970 Exam Date/Time: 11/27/2022 20:23 Procedure: XR CHEST 1 VIEW Ordering Provider: FIGUEROA TYLER Reason For Exam: sob, eval for aspiration CHEST PORTABLE CLINICAL INDICATION: sob, eval for aspiration TECHNIQUE: Portable chest x-ray(s). COMPARISON: June,. FINDINGS: Cardiac and mediastinal silhouette within normal limits. Lungs are hyperinflated, with interstitial prominence and coarsening bilaterally, about the same. No significant vascular congestion. No focal consolidation or apparent pneumothorax. Bony thorax grossly unremarkable. Clips again project over right superolateral hemithorax. [facility] Hamlet Yoder MD - 11/27/2022 Patient Name: LUIS STEELE : 1970 Exam Date/Time: 11/27/2022 20:23 Procedure: XR CHEST 1 VIEW Ordering Provider: FIGUEROA TYLER Reason For Exam: sob, eval for aspiration CHEST PORTABLE CLINICAL INDICATION: sob, eval for aspiration TECHNIQUE: Portable chest x-ray(s). COMPARISON: June,. FINDINGS: Cardiac and mediastinal silhouette within normal limits. Lungs are hyperinflated, with interstitial prominence and coarsening bilaterally, about the same. No significant vascular congestion. No focal consolidation or apparent pneumothorax. Bony thorax grossly unremarkable. Clips again project over right superolateral hemithorax. IMPRESSION: 1. Stable examination. No acute findings. Report Dictated on Electronically Signed By: Hamlet Yoder MD Electronically Signed Date/Time: 11/27/2022 8:56 PM EDT [facility] Radiology Study observation (narrative) [facility] [employer] XR Chest Single viewOrdered By: Hamlet Yoder on 11-27-2022 [employer] Work Phone: Absolute lymphocyte countOrd ered By: Cuca Flood on 11-14-2022 Lymphocytes Auto (Unsp spec) [#/Vol] 2.29 10*3/uL 0.83-4.51 [facility] Assessment of wrist artery p atency prior to arterial punctureOrdered By: Cuca Flood on 11-14-2022 Arterial patency Wrist artery --pre arterial puncture N/A [facility] Base excessOrdered By: Cuca Flood on 11-14-2022 Base excess Calc (BldV) [Moles/Vol] 1 mmol/L -2-2 [facility] Basophil percentageOrdered B y: Cuca Flood on 11-14-2022 Basophil percentage 26.2 mmol/L 22-26 [facility] Basophils/100 WBC (Bld) 72 % 95-99 [facility] Basophils/100 WBC (Bld) 0.5 % 0-1 [facility] Chloride [Moles/Vol] 107 mmol/L 98-107 [facility] Eosinophils/100 WBC (Bld) 0.4 % 0-5 [facility] Glucose [Mass/Vol] 97 mg/dL 74-106 [facility] Neutrophils (Bld) [#/Vol] 6.0 10*3/uL 2.0-7.7 [facility] Neutrophils/100 WBC (Bld) 61.6 % 47-70 [facility] Potassium [Moles/Vol] 3.8 mmol/L 3.5-5.1 [facility] Sodium [Moles/Vol] 140 mmol/L 136-145 [facility] WBC (Bld) [#/Vol] 9.7 10*3/uL 4.4-11.0 [facility] Blood erythrocytes count (nu mber/volume)Ordered By: Cuca Flood on 11-14-2022 RBC (Bld) [#/Vol] 3.41 10*6/uL 4.6-6.2 [facility] Blood hemoglobin measurement (mass/volume)Ordered By: Cuca Flood on 11-14-2022 Hemoglobin (Bld) [Mass/Vol] 7.5 g/dL 13.0-16.5 [facility] Blood lymphocytes/100 leukoc ytesOrdered By: Cuca Flood on 11-14-2022 Lymphocytes/100 WBC (Bld) 23.5 % 19-41 [facility] Blood manual differential co mment interpretation (narrative result)Ordered By: Cuca Flood on 11-14-2022 Manual differential comment Shay (Bld) [Interp] SCANNED [facility] Blood monocytes/100 leukocyt esOrdered By: Cuca Flood on 11-14-2022 Monocytes/100 WBC (Bld) 12.5 % 0-10 [facility] Blood platelet mean volumeOr dered By: Cuca Flood on 11-14-2022 Platelet mean volume (Bld) [Entitic vol] 9.5 fL 6.2-12.0 [facility] CO2 (BldA) [Partial pressure ]Ordered By: Cuca Flood on 11-14-2022 CO2 (Bld) [Partial pressure] 47.1 mm[Hg] 35-45 [facility] Determination of erythrocyte mean corpuscular volume (MCV)Ordered By: Cuca Flood on 11-14-2022 MCV (RBC) [Entitic vol] 78.3 fL 80-94 [facility] HCO3 (BldA) [Moles/Vol]Order ed By: Cuca Flood on 11-14-2022 HCO3 (Bld) [Moles/Vol] 29 mmol/L 22-26 [facility] Hematocrit Auto (Bld) [Volum e fraction]Ordered By: Cuca Flood on 11-14-2022 Hematocrit (Bld) [Volume fraction] 26.7 % 40-54 [facility] Hypochromatic red blood cell detectionOrdered By: Cuca Flood on 11-14-2022 Hypochromia Ql (Bld) 1+ [facility] Laboratory - Chemistry and C hemistry - challengeOrdered By: Cuca Flood on 11-14-2022 CO2 [Moles/Vol] 30 mmol/L 23-33 [facility] CO2 [Moles/Vol] 32.0 mmol/L 21.0-32.0 [facility] Urea nitrogen/Creatinine [Mass ratio] 15.1 mg/mg 10-20 [facility] Laboratory - Hematology and Cell countsOrdered By: Cuca Flood on 11-14-2022 Anisocytosis Ql (Bld) 2+ [facility] Erythrocyte distribution width (RBC) [Entitic vol] 57.7 fL 35.1-43.9 [facility] Erythrocyte distribution width (RBC) [Ratio] 20.5 % 11.6-14.6 [facility] Immature granulocytes/100 WBC (Bld) 1.500 % 0.0-0.9 [facility] Comment on above: IG% - Immature Granu locytes (promyelocytes, myelocytes and metamyelocytes) > 1% indicates that a LEFT SHIFT is Present. MCH (RBC) [Entitic mass] 22.0 pg 27.0-32.0 [facility] Nucleated RBC/100 WBC (Bld) [Ratio] 1.3 % 0-5 [facility] MCHC Auto (RBC) [Mass/Vol]Or dered By: Cuca Flood on 11-14-2022 MCHC (RBC) [Mass/Vol] 28.1 g/dL 32-36 [facility] Macrocytes detectionOrdered By: Cuca Flood on 11-14-2022 Macrocytes Ql (Bld) 1+ [facility] No Panel InformationOrdered By: Cuca Flood on 11-14-2022 Bed Mix Venous Bld PCO2 at Pat Temp 49.5 mmHg 41-51 [facility] Blood Gas Liter Flow 2.0 [facility] Blood Gas Specimen Type AG [facility] Oxygen Delivery Device Cannula [facility] Venous Blood Base Excess 4 mmol/L -1.0-3.5 [facility] Blood Gas Sample Site R Radial [facility] Blood Gas Total CO2 28 mmol/L [facility] Estimated Creatinine Clearance Calc 84.17 ml/min [facility] Estimated GFR (MDRD) Amer 94 mL/min >60 [facility] Comment on above: GFR Calc Estimated GFR (MDRD) Non-Af Amer 78 mL/min >60 [facility] Comment on above: Non- GFR Calc Oxygen (BldA) [Partial press ure]Ordered By: Cuca Flood on 11-14-2022 Oxygen (Bld) [Partial pressure] 40 mmHG 75-100 [facility] PO2 venousOrdered By: Cuca Flood on 11-14-2022 Oxygen (BldV) [Partial pressure] 199 mm[Hg] 25-40 [facility] Platelets bldOrdered By: Mike Flood on 11-14-2022 Platelets (Bld) [#/Vol] 451 10*3/uL 150-450 [facility] Serum or plasma calcium david urement (mass/volume)Ordered By: Cuac Flood on 11-14-2022 Calcium [Mass/Vol] 8.0 mg/dL 8.5-10.1 [facility] Serum or plasma creatinine m easurement (mass/volume)Ordered By: Cuca Flood on 11-14-2022 Creatinine [Mass/Vol] 1.06 mg/dL 0.70-1.30 [facility] Comment on above: The validity of the calculated GFR & GFRAA in patients over 70 years has not been determined. Clinical correlation is essential. Serum or plasma urea nitroge n measurement (mass/volume)Ordered By: Cuca Flood on 11-14-2022 Urea nitrogen [Mass/Vol] 16 mg/dL 7-18 [facility] Thin prep Papanicolaou smear with manual screeningOrdered By: Cuca Flood on 11-14-2022 Thin prep Papanicolaou smear with manual screening 1+ [facility] Thin prep Papanicolaou smear with manual screening 1 5-15 [facility] Vital signsOrdered By: Cuca Flood on 11-14-2022 Oxygen saturation in Blood 100 % 50-70 [facility] pH measurementOrdered By: Hermann Flood on 11-14-2022 pH (Unsp spec) 7.37 [pH] 7.32-7.42 [facility] pH (Unsp spec) 7.35 [pH] 7.35-7.45 [facility] Hemoglobin in reticulocytes (mass per reticulocyte)Ordered By: Adán Berg on 11-13-2022 Hemoglobin (Reticulocytes) [Entitic mass] 16.6 pg 30-35 [facility] INR in Blood by Coagulation assayOrdered By: Ulysses Seth on 11-13-2022 INR Coag (Bld) [Relative time] 1.1 {INR} [facility] Iron measurement (mass/mass) Ordered By: Adán Berg on 11-13-2022 Iron (Unsp spec) [Mass/Mass] 13 ug/dL 65-175 [facility] Laboratory - CoagulationOrde red By: Ulysses Seth on 11-13-2022 aPTT Coag (Bld) [Time] 29.1 s 24.1-36.2 [facility] PT Coag (PPP) [Time] 14.3 s 11.7-14.9 [facility] No Panel InformationOrdered By: Adán Berg on 11-13-2022 Immature Reticulocyte Fraction 26.00 % 3.00-15.90 [facility] Reticulocyte Count 1.27 % 0.5-1.5 [facility] Total Iron Binding Capacity 583 ug/dL 250-450 [facility] Serum or plasma ferritin papi surement (mass/volume)Ordered By: Adán Berg on 11-13-2022 Ferritin [Mass/Vol] 3 ng/mL 26-388 [facility] Serum or plasma folate measu rement (mass/volume)Ordered By: Adán Berg on 11-13-2022 Folate [Mass/Vol] 6.50 ng/mL 3.1-55.4 [facility] Serum or plasma iron saturat ion measurement (mass fraction)Ordered By: Adán Berg on 11-13-2022 Iron saturation [Mass fraction] 2.2 % 15.0-55.0 [facility] Basophil percentageOrdered B y: Kody Jj on 11-12-2022 Bilirubin [Mass/Vol] 0.20 mg/dL 0.20-1.00 [facility] Comment on above: For patients on eltr ombopag therapy, use of Dimension [place] TBIL is not recommended. Protein [Mass/Vol] 7.2 g/dL 6.4-8.2 [facility] Laboratory - Chemistry and C hemistry - challengeOrdered By: Kody Jj on 11-12-2022 ALP [Catalytic activity/Vol] 78 U/L 45-117 [facility] ALT [Catalytic activity/Vol] 23 U/L 16-61 [facility] Globulin (S) [Mass/Vol] 3.6 g/dL 2.2-4.2 [facility] No Panel InformationOrdered By: Kody Jj on 11-12-2022 Troponin I High Sensitivity 4 pg/mL 3.0-78.0 [facility] Comment on above: Please Note: New Krystle t Units and Gender Specific Reference Ranges. For more information see Policy Stat Procedure [facility] High Sensitivity Troponin (TNIH) and attachments. Review by pathologistOrdered By: Kody Jj on 11-12-2022 Pathologist review Shay (Unsp spec) [Interp] May foll [facility] Serum or plasma albumin david urement (mass/volume)Ordered By: Kody Jj on 11-12-2022 Albumin [Mass/Vol] 3.6 g/dL 3.2-5.0 [facility] Serum or plasma albumin/glob ulin mass ratioOrdered By: Kody Jj on 11-12-2022 Albumin/Globulin [Mass ratio] 1.0 {ratio} 0.9-2.4 [facility] Thin prep Papanicolaou smear with manual screeningOrdered By: Kody Jj on 11-12-2022 Thin prep Papanicolaou smear with manual screening 8 U/L 15-37 [facility] Absolute lymphocyte countOrd ered By: Byron Vivas on 10-19-2022 Lymphocytes Auto (Unsp spec) [#/Vol] 1.79 10*3/uL 0.83-4.51 [facility] Basophil percentageOrdered B y: Byron Vivas on 10-19-2022 Basophils/100 WBC (Bld) 0.3 % 0-1 [facility] Chloride [Moles/Vol] 105 mmol/L 98-107 [facility] Eosinophils/100 WBC (Bld) 0.9 % 0-5 [facility] Glucose [Mass/Vol] 115 mg/dL 74-106 [facility] Comment on above: Fasting Glucose resu lt from 100 to 125 mg/dL suggests IMPAIRED HOMEOSTASIS per A.D.A. criteria. Neutrophils (Bld) [#/Vol] 7.5 10*3/uL 2.0-7.7 [facility] Neutrophils/100 WBC (Bld) 71.2 % 47-70 [facility] Potassium [Moles/Vol] 3.4 mmol/L 3.5-5.1 [facility] Sodium [Moles/Vol] 138 mmol/L 136-145 [facility] WBC (Bld) [#/Vol] 10.5 10*3/uL 4.4-11.0 [facility] Blood erythrocytes count (nu mber/volume)Ordered By: Byron Vivas on 10-19-2022 RBC (Bld) [#/Vol] 4.43 10*6/uL 4.6-6.2 [facility] Blood hemoglobin measurement (mass/volume)Ordered By: Byron Vivas on 10-19-2022 Hemoglobin (Bld) [Mass/Vol] 9.0 g/dL 13.0-16.5 [facility] Blood lymphocytes/100 leukoc ytesOrdered By: Byron Vivas on 10-19-2022 Lymphocytes/100 WBC (Bld) 17.0 % 19-41 [facility] Blood monocytes/100 leukocyt esOrdered By: Byron Vivas on 10-19-2022 Monocytes/100 WBC (Bld) 9.6 % 0-10 [facility] Blood platelet mean volumeOr dered By: Byron Vivas on 10-19-2022 Platelet mean volume (Bld) [Entitic vol] 9.6 fL 6.2-12.0 [facility] Determination of erythrocyte mean corpuscular volume (MCV)Ordered By: Byron Vivas on 10-19-2022 MCV (RBC) [Entitic vol] 70.7 fL 80-94 [facility] Hematocrit Auto (Bld) [Volum e fraction]Ordered By: Byron Vivas on 10-19-2022 Hematocrit (Bld) [Volume fraction] 31.3 % 40-54 [facility] Laboratory - Chemistry and C hemistry - challengeOrdered By: Byron Vivas on 10-19-2022 CO2 [Moles/Vol] 28.0 mmol/L 21.0-32.0 [facility] Urea nitrogen/Creatinine [Mass ratio] 17.4 mg/mg 10-20 [facility] Laboratory - Hematology and Cell countsOrdered By: Byron Vivas on 10-19-2022 Erythrocyte distribution width (RBC) [Entitic vol] 45.6 fL 35.1-43.9 [facility] Erythrocyte distribution width (RBC) [Ratio] 18.4 % 11.6-14.6 [facility] Immature granulocytes/100 WBC (Bld) 1.000 % 0.0-0.9 [facility] Comment on above: IG% - Immature Granu locytes (promyelocytes, myelocytes and metamyelocytes) > 1% indicates that a LEFT SHIFT is Present. MCH (RBC) [Entitic mass] 20.3 pg 27.0-32.0 [facility] Nucleated RBC/100 WBC (Bld) [Ratio] 0 % 0-5 [facility] MCHC Auto (RBC) [Mass/Vol]Or dered By: Byron Vivas on 10-19-2022 MCHC (RBC) [Mass/Vol] 28.8 g/dL 32-36 [facility] No Panel InformationOrdered By: Byron Vivas on 10-19-2022 Estimated Creatinine Clearance Calc 82.79 ml/min [facility] Estimated GFR (MDRD) Amer 91 mL/min >60 [facility] Comment on above: GFR Calc Estimated GFR (MDRD) Non-Af Amer 76 mL/min >60 [facility] Comment on above: Non- GFR Calc Troponin I High Sensitivity 4 pg/mL 3.0-78.0 [facility] Comment on above: Please Note: New Krystle t Units and Gender Specific Reference Ranges. For more information see Policy Stat Procedure [facility] High Sensitivity Troponin (TNIH) and attachments. Platelets bldOrdered By: Francois Vivas on 10-19-2022 Platelets (Bld) [#/Vol] 502 10*3/uL 150-450 [facility] Serum or plasma calcium david urement (mass/volume)Ordered By: Byron Vivas on 10-19-2022 Calcium [Mass/Vol] 9.1 mg/dL 8.5-10.1 [facility] Serum or plasma creatinine m easurement (mass/volume)Ordered By: Byron Vivas on 10-19-2022 Creatinine [Mass/Vol] 1.09 mg/dL 0.70-1.30 [facility] Comment on above: The validity of the calculated GFR & GFRAA in patients over 70 years has not been determined. Clinical correlation is essential. Serum or plasma urea nitroge n measurement (mass/volume)Ordered By: Byron Vivas on 10-19-2022 Urea nitrogen [Mass/Vol] 19 mg/dL 7-18 [facility] Thin prep Papanicolaou smear with manual screeningOrdered By: Byron Vivas on 10-19-2022 Thin prep Papanicolaou smear with manual screening 07 16-15 [facility] CBC W Auto Differential pane l (Bld)on 09-07-2022 Basophils (Bld) [#/Vol] 0.04 10*3/uL <0.11 k/uL [facility] Basophils/100 WBC (Bld) 0.4 % [facility] Differential cell count method Nom (Bld) Auto [facility] Eosinophils (Bld) [#/Vol] 0.17 10*3/uL <0.46 k/uL [facility] Eosinophils/100 WBC (Bld) 1.8 % [facility] Erythrocyte distribution width (RBC) [Ratio] 17.1 % High 11.5 - 15.0 % [facility] Hematocrit (Bld) [Volume fraction] 38.9 % Low 39.0 - 51.0 % [facility] Hemoglobin (Bld) [Mass/Vol] 10.6 g/dL Low 13.0 - 17.0 g/dL [facility] Immature granulocytes (Bld) [#/Vol] 0.05 10*3/uL <0.10 k/uL [facility] Immature granulocytes/100 WBC (Bld) 0.5 % [facility] Lymphocytes (Bld) [#/Vol] 1.35 10*3/uL 1.00 - 4.00 k/uL [facility] Lymphocytes/100 WBC (Bld) 14.7 % [facility] MCH (RBC) [Entitic mass] 20.2 pg Low 26.0 - 34.0 pg [facility] MCHC (RBC) [Mass/Vol] 27.2 g/dL Low 30.5 - 36.0 g/dL [facility] MCV (RBC) [Entitic vol] 74.2 fL Low 80.0 - 100.0 fL [facility] Monocytes (Bld) [#/Vol] 0.86 10*3/uL <0.87 k/uL [facility] Monocytes/100 WBC (Bld) 9.4 % [facility] Neutrophils (Bld) [#/Vol] 6.72 10*3/uL 1.45 - 7.50 k/uL [facility] Neutrophils/100 WBC (Bld) 73.2 % [facility] Nucleated RBC (Bld) [#/Vol] <0.01 k/uL [facility] Nucleated RBC/100 WBC (Bld) [Ratio] 0.0 /100 WBC [facility] Platelet mean volume (Bld) [Entitic vol] 10.4 fL 9.0 - 12.7 fL [facility] Platelets (Bld) [#/Vol] 420 10*3/uL High 150 - 400 k/uL [facility] RBC (Bld) [#/Vol] 5.24 10*6/uL 4.20 - 6.0 0 m/uL [facility] WBC (Bld) [#/Vol] 9.19 10*3/uL 3.70 - 11. 00 k/uL [facility] Absolute lymphocyte counton 08-17-2021 Lymphocytes Auto (Unsp spec) [#/Vol] 0.69 10*3/uL 0.83-4.51 [facility] Work Phone: Basophil percentageon 2021 Basophils/100 WBC (Bld) 0.1 % 0-1 [facility] Work Phone: Chloride [Moles/Vol] 106 mmol/L 98-107 [facility] Work Phone: Eosinophils/100 WBC (Bld) 0.0 % 0-5 [facility] Work Phone: Glucose [Mass/Vol] 134 mg/dL 74-106 [facility] Work Phone: Comment on above: Fasting Glucose resu lt greater than or equal to 126 mg/dL suggests DIABETES MELLITUS per A.D.A. criteria. Neutrophils (Bld) [#/Vol] 10.3 10*3/uL 2.0-7.7 [facility] Work Phone: Neutrophils/100 WBC (Bld) 89.4 % 47-70 [facility] Work Phone: [phone] Potassium [Moles/Vol] 3.8 mmol/L 3.5-5.1 [facility] Work Phone: Sodium [Moles/Vol] 139 mmol/L 136-145 [facility] Work Phone: WBC (Bld) [#/Vol] 11.5 10*3/uL 4.4-11.0 [facility] [place] [facility] Work Phone: Blood erythrocytes count (nu mber/volume)on 08-17-2021 RBC (Bld) [#/Vol] 4.10 10*6/uL 4.6-6.2 [facility] [place] [facility] Work Phone: Blood hemoglobin measurement (mass/volume)on 08-17-2021 Hemoglobin (Bld) [Mass/Vol] 11.6 g/dL 13.0-16.5 [facility] Work Phone: Blood lymphocytes/100 leukoc yteson 08-17-2021 Lymphocytes/100 WBC (Bld) 6.0 % 19-41 [facility] Work Phone: Blood monocytes/100 leukocyt eson 08-17-2021 Monocytes/100 WBC (Bld) 3.7 % 0-10 [facility] Work Phone: Blood platelet mean volumeon 08-17-2021 Platelet mean volume (Bld) [Entitic vol] 9.3 fL 6.2-12.0 [facility] Work Phone: Determination of erythrocyte mean corpuscular volume (MCV)on 08-17-2021 MCV (RBC) [Entitic vol] 90.5 fL 80-94 [facility] Work Phone: Hematocrit Auto (Bld) [Volum e fraction]on 08-17-2021 Hematocrit (Bld) [Volume fraction] 37.1 % 40-54 [facility] Work Phone: Laboratory - Chemistry and C hemistry - challengeon 08-17-2021 CO2 [Moles/Vol] 30.0 mmol/L 21.0-32.0 [facility] Work Phone: Urea nitrogen/Creatinine [Mass ratio] 17.8 mg/mg 10-20 [facility] Work Phone: Laboratory - Hematology and Cell countson 08-17-2021 Erythrocyte distribution width (RBC) [Entitic vol] 44.1 fL 35.1-43.9 [facility] Work Phone: Erythrocyte distribution width (RBC) [Ratio] 13.2 % 11.6-14.6 [facility] Work Phone: Immature granulocytes/100 WBC (Bld) 0.800 % 0.0-0.9 [facility] Work Phone: Comment on above: IG% - Immature Granu locytes (promyelocytes, myelocytes and metamyelocytes) > 1% indicates that a LEFT SHIFT is Present. MCH (RBC) [Entitic mass] 28.3 pg 27.0-32.0 [facility] Work Phone: Nucleated RBC/100 WBC (Bld) [Ratio] 0 % 0-5 [facility] Work Phone: MCHC Auto (RBC) [Mass/Vol]on 08-17-2021 MCHC (RBC) [Mass/Vol] 31.3 g/dL 32-36 [facility] Work Phone: No Panel Informationon 08-17 Estimated Creatinine Clearance Calc 84.73 ml/min [facility] Work Phone: Estimated GFR (MDRD) Amer 115 mL/min >60 [facility] Work Phone: Comment on above: GFR Calc Estimated GFR (MDRD) Non-Af Amer 95 mL/min >60 [facility] Work Phone: Comment on above: Non- GFR Calc Platelets bldon 08-17-2021 Platelets (Bld) [#/Vol] 298 10*3/uL 150-450 [facility] Work Phone: Serum or plasma calcium david urement (mass/volume)on 08-17-2021 Calcium [Mass/Vol] 9.1 mg/dL 8.5-10.1 [facility] Work Phone: Serum or plasma creatinine m easurement (mass/volume)on 08-17-2021 Creatinine [Mass/Vol] 0.90 mg/dL 0.70-1.30 [facility] Work Phone: Comment on above: The validity of the calculated GFR & GFRAA in patients over 70 years has not been determined. Clinical correlation is essential. Serum or plasma urea nitroge n measurement (mass/volume)on 08-17-2021 Urea nitrogen [Mass/Vol] 16 mg/dL 7-18 [facility] Work Phone: Thin prep Papanicolaou smear with manual screeningon 08-17-2021 Thin prep Papanicolaou smear with manual screening 3 5-15 [facility] Work Phone: Absolute lymphocyte counton 08-15-2021 Lymphocytes Auto (Unsp spec) [#/Vol] 1.46 10*3/uL 0.83-4.51 [facility] Work Phone: Basophil percentageon 2021 Basophils/100 WBC (Bld) 0.3 % 0-1 [facility] Work Phone: Chloride [Moles/Vol] 104 mmol/L 98-107 [facility] Work Phone: Eosinophils/100 WBC (Bld) 1.6 % 0-5 [facility] Work Phone: Glucose [Mass/Vol] 113 mg/dL 74-106 [facility] Work Phone: Comment on above: Fasting Glucose resu lt from 100 to 125 mg/dL suggests IMPAIRED HOMEOSTASIS per A.D.A. criteria. Neutrophils (Bld) [#/Vol] 9.9 10*3/uL 2.0-7.7 [facility] Work Phone: Neutrophils/100 WBC (Bld) 79.9 % 47-70 [facility] Work Phone: Potassium [Moles/Vol] 3.3 mmol/L 3.5-5.1 [facility] Work Phone: Sodium [Moles/Vol] 139 mmol/L 136-145 [facility] Work Phone: WBC (Bld) [#/Vol] 12.4 10*3/uL 4.4-11.0 [facility]: Blood erythrocytes count (nu mber/volume)on 08-15-2021 RBC (Bld) [#/Vol] 5.03 10*6/uL 4.6-6.2 [facility] Work Phone: Blood hemoglobin measurement (mass/volume)on 08-15-2021 Hemoglobin (Bld) [Mass/Vol] 14.5 g/dL 13.0-16.5 [facility] Work Phone: Blood lymphocytes/100 leukoc yteson 08-15-2021 Lymphocytes/100 WBC (Bld) 11.8 % 19-41 [facility] Work Phone: Blood monocytes/100 leukocyt eson 08-15-2021 Monocytes/100 WBC (Bld) 5.8 % 0-10 [facility] Work Phone: Blood platelet mean volumeon 08-15-2021 Platelet mean volume (Bld) [Entitic vol] 9.4 fL 6.2-12.0 [facility] Work Phone: Determination of erythrocyte mean corpuscular volume (MCV)on 08-15-2021 MCV (RBC) [Entitic vol] 88.5 fL 80-94 [facility] Work Phone: Hematocrit Auto (Bld) [Volum e fraction]on 08-15-2021 Hematocrit (Bld) [Volume fraction] 44.5 % 40-54 [facility] Work Phone: Laboratory - Chemistry and C hemistry - challengeon 08-15-2021 CO2 [Moles/Vol] 29.0 mmol/L 21.0-32.0 [facility] Work Phone: Urea nitrogen/Creatinine [Mass ratio] 15.7 mg/mg 10-20 [facility] Work Phone: Laboratory - Hematology and Cell countson 08-15-2021 Erythrocyte distribution width (RBC) [Entitic vol] 42.5 fL 35.1-43.9 [facility] Work Phone: Erythrocyte distribution width (RBC) [Ratio] 13.2 % 11.6-14.6 [facility] Work Phone: Immature granulocytes/100 WBC (Bld) 0.600 % 0.0-0.9 [facility] Work Phone: Comment on above: IG% - Immature Granu locytes (promyelocytes, myelocytes and metamyelocytes) > 1% indicates that a LEFT SHIFT is Present. MCH (RBC) [Entitic mass] 28.8 pg 27.0-32.0 [facility] Work Phone: Nucleated RBC/100 WBC (Bld) [Ratio] 0 % 0-5 [facility] Work Phone: MCHC Auto (RBC) [Mass/Vol]on 08-15-2021 MCHC (RBC) [Mass/Vol] 32.6 g/dL 32-36 [facility] Work Phone: No Panel Informationon 08-15 Estimated Creatinine Clearance Calc 79.73 ml/min [facility] Work Phone: Estimated GFR (MDRD) Amer 107 mL/min >60 [facility] Work Phone: Comment on above: GFR Calc Estimated GFR (MDRD) Non-Af Amer 88 mL/min >60 [facility] Work Phone: Comment on above: Non- GFR Calc Troponin I High Sensitivity < 3 pg/mL 3.0-78.0 [facility] Work Phone: Comment on above: Please Note: New Krystle t Units and Gender Specific Reference Ranges. For more information see Policy Stat Procedure Lewis High Sensitivity Troponin (TNIH) and attachments. SARS-CoV-2 & FLU Antigen (Rapid) [facility] Work Phone: Platelets bldon 08-15-2021 Platelets (Bld) [#/Vol] 336 10*3/uL 150-450 [facility] Work Phone: Serum or plasma calcium david urement (mass/volume)on 08-15-2021 Calcium [Mass/Vol] 9.5 mg/dL 8.5-10.1 [facility] Work Phone: Serum or plasma creatinine m easurement (mass/volume)on 08-15-2021 Creatinine [Mass/Vol] 0.96 mg/dL 0.70-1.30 [facility] Work Phone: Comment on above: The validity of the calculated GFR & GFRAA in patients over 70 years has not been determined. Clinical correlation is essential. Serum or plasma urea nitroge n measurement (mass/volume)on 08-15-2021 Urea nitrogen [Mass/Vol] 15 mg/dL 7-18 [facility] Work Phone: Thin prep Papanicolaou smear with manual screeningon 08-15-2021 Thin prep Papanicolaou smear with manual screening 6 5-15 [facility] Work Phone: .Auto Diffon 08-01-2021 Basophil, Absolute 0.00 10 3/mcL Normal 0.00-0.19 [facility] ([place]) Comment on above: Performed By: #### C BC, ADIFF, ANEU, BMP, GFR, PBNP, TROPHS #### [address] [address] Basophils/100 WBC (Bld) 0.5 % Normal 0.0-2.5 [facility] ([place]) Comment on above: Performed By: #### C BC, ADIFF, ANEU, BMP, GFR, PBNP, TROPHS #### [address] [address] Eosinophil, Absolute 0.30 10 3/mcL Normal 0.00-0.40 [facility] ([place]) Comment on above: Performed By: #### C BC, ADIFF, ANEU, BMP, GFR, PBNP, TROPHS #### [address] [address] Eosinophils/100 WBC (Bld) 4.2 % Normal 0.0-7.0 [facility] ([place] Comment on above: Performed By: #### C BC, ADIFF, ANEU, BMP, GFR, PBNP, TROPHS #### [address] [address] Lymphocyte, Absolute 1.20 10 3/mcL Normal 0.77-3.85 [facility] ([place]) Comment on above: Performed By: #### C BC, ADIFF, ANEU, BMP, GFR, PBNP, TROPHS #### [address] [address] Lymphocytes/100 WBC (Bld) 16.7 % Normal 10.0-50.0 [facility] ([place] Comment on above: Performed By: #### C BC, ADIFF, ANEU, BMP, GFR, PBNP, TROPHS #### [address] [address] Monocyte, Absolute 0.80 10 3/mcL Normal 0.15-1.00 [facility] ([place]) Comment on above: Performed By: #### C BC, ADIFF, ANEU, BMP, GFR, PBNP, TROPHS #### [address] [address] Monocytes/100 WBC (Bld) 10.9 % Normal 1.7-13.0 [facility] ([place] Comment on above: Performed By: #### C BC, ADIFF, ANEU, BMP, GFR, PBNP, TROPHS #### [address] [address] Neutrophils/100 WBC (Bld) 67.7 % Normal 37.0-80.0 [facility] ([place] Comment on above: Performed By: #### C BC, ADIFF, ANEU, BMP, GFR, PBNP, TROPHS #### [address] [address] .GFRon 08-01-2021 GFR 87 ml/min/1.73sqm Normal [facility] ([place]) Comment on above: Result Comment: GFR Population mean for , Non- Americans Ages 20-29 = 116 mL/min/1.73 sq.m. Ages 30-39 = 107 mL/min/1.73 sq.m. Ages 40-49 = 99 mL/min/1.73 sq.m. Ages 50-59 = 93 mL/min/1.73 sq.m. Ages 60-69 = 85 mL/min/1.73 sq.m. Ages 70+ = 75 mL/min/1.73 sq.m. Chronic Kidney Disease: Less than 60 mL/min/1.73 square meters End Stage Renal Disease: Less than 15 mL/min/1.73 square meters Performed By: #### C BC, ADIFF, ANEU, BMP, GFR, PBNP, TROPHS #### [address] [address] GFR Non- 72 ml/min/1.73sqm Normal [facility] ([place] Comment on above: Result Comment: GFR Population mean for , Non- Americans Ages 20-29 = 116 mL/min/1.73 sq.m. Ages 30-39 = 107 mL/min/1.73 sq.m. Ages 40-49 = 99 mL/min/1.73 sq.m. Ages 50-59 = 93 mL/min/1.73 sq.m. Ages 60-69 = 85 mL/min/1.73 sq.m. Ages 70+ = 75 mL/min/1.73 sq.m. Chronic Kidney Disease: Less than 60 mL/min/1.73 square meters End Stage Renal Disease: Less than 15 mL/min/1.73 square meters Performed By: #### C BC, ADIFF, ANEU, BMP, GFR, PBNP, TROPHS #### [address] [address] .NEUABSon 08-01-2021 Neutrophil, Absolute 5.00 10 3/mcL Normal 2.85-6.16 [facility] ([place]) Comment on above: Performed By: #### C BC, ADIFF, ANEU, BMP, GFR, PBNP, TROPHS #### [address] [address] BMPon 08-01-2021 BUN/Creatinine Ratio 19 ratio Normal 7-27 [facility] ([place]) Comment on above: Performed By: #### C BC, ADIFF, ANEU, BMP, GFR, PBNP, TROPHS #### [address] [address] Calcium [Mass/Vol] 9.2 mg/dL Normal 8.4-10.2 [facility] ([place]) Comment on above: Performed By: #### C BC, ADIFF, ANEU, BMP, GFR, PBNP, TROPHS #### [address] [address] Chloride [Moles/Vol] 103 mmol/L Normal 98-107 [facility] ([place]) Comment on above: Performed By: #### C BC, ADIFF, ANEU, BMP, GFR, PBNP, TROPHS #### [address] [address] CO2 [Moles/Vol] 34 mmol/L High 22-29 [facility] ([place] Comment on above: Performed By: #### C BC, ADIFF, ANEU, BMP, GFR, PBNP, TROPHS #### [address] [address] Creatinine [Mass/Vol] 1.09 mg/dL Normal 0.70-1.30 [facility] ([place]) Comment on above: Performed By: #### C BC, ADIFF, ANEU, BMP, GFR, PBNP, TROPHS #### [address] [address] Electrolyte Balance 4.0 mEq/L Normal 4.0-15.0 [facility] ([place]) Comment on above: Performed By: #### C BC, ADIFF, ANEU, BMP, GFR, PBNP, TROPHS #### [address] [address] Glucose [Mass/Vol] 93 mg/dL Normal 70-105 [facility] ([place]) Comment on above: Performed By: #### C BC, ADIFF, ANEU, BMP, GFR, PBNP, TROPHS #### [address] [address] Potassium [Moles/Vol] 4.3 mmol/L Normal 3.5-5.1 [facility] ([place]) Comment on above: Performed By: #### C BC, ADIFF, ANEU, BMP, GFR, PBNP, TROPHS #### [address] [address] Sodium [Moles/Vol] 141 mmol/L Normal 136-145 [facility] ([place]) Comment on above: Performed By: #### C BC, ADIFF, ANEU, BMP, GFR, PBNP, TROPHS #### [address] [address] Urea nitrogen [Mass/Vol] 21 mg/dL High 7-18 [facility] ([place] Comment on above: Performed By: #### C BC, ADIFF, ANEU, BMP, GFR, PBNP, TROPHS #### [address] [address] CBCon 08-01-2021 Erythrocyte distribution width (RBC) [Ratio] 14.5 % Normal 11.5-14.5 [facility] ([place] Comment on above: Performed By: #### C BC, ADIFF, ANEU, BMP, GFR, PBNP, TROPHS #### [address] [address] Hematocrit (Bld) [Volume fraction] 43.1 % Normal 42.0-52.0 [facility] ([place] Comment on above: Performed By: #### C BC, ADIFF, ANEU, BMP, GFR, PBNP, TROPHS #### [address] [address] Hgb 13.9 G/dL Low 14.0-18.0 [facility] ([place] Comment on above: Performed By: #### C BC, ADIFF, ANEU, BMP, GFR, PBNP, TROPHS #### [address] [address] MCH (RBC) [Entitic mass] 28.5 pg Normal 27.0-31.2 [facility] ([place] Comment on above: Performed By: #### C BC, ADIFF, ANEU, BMP, GFR, PBNP, TROPHS #### [place] [address] MCHC 32.3 G/dL Normal 31.8-35.4 [facility] [place] Comment on above: Performed By: #### C BC, ADIFF, ANEU, BMP, GFR, PBNP, TROPHS #### [place] [address] MCV (RBC) [Entitic vol] 88.2 fL Normal 80.0-94.0 [facility] ([place] Comment on above: Performed By: #### C BC, ADIFF, ANEU, BMP, GFR, PBNP, TROPHS #### [place] [address] Platelet 277 10 3/mcL Normal 130-400 [facility] ([place] Comment on above: Performed By: #### C BC, ADIFF, ANEU, BMP, GFR, PBNP, TROPHS #### [address] [address] Platelet mean volume (Bld) [Entitic vol] 8.0 fL Normal 7.4-10.4 [facility] ([place] Comment on above: Performed By: #### C BC, ADIFF, ANEU, BMP, GFR, PBNP, TROPHS #### [address] [address] RBC 4.88 10 6/mcL Normal 4.04-6.13 [facility] ([place] Comment on above: Performed By: #### C BC, ADIFF, ANEU, BMP, GFR, PBNP, TROPHS #### [address] [address] WBC 7.50 10 3/mcL Normal 4.60-10.80 [facility] ([place] Comment on above: Performed By: #### C BC, ADIFF, ANEU, BMP, GFR, PBNP, TROPHS #### [place] [id number] [place], [place] [address] LABORATORYOrdered By: Gabrielle Hernandez on 08-01-2021 Basophil, Absolute 0.00 103/mcL Invalid Interpretation Code 0.00 - 0.19 10^3/mcL AO Auto Heme SS Basophils/100 WBC (Bld) 0.5 % Invalid Interpretation Code 0.0 - 2.5 % AO Auto Heme SS Calcium [Mass/Vol] 9.2 mg/dL Invalid Interpretation Code 8.4 - 10.2 mg/dL AO ADM SS Chloride [Moles/Vol] 103 mmol/L Invalid Interpretation Code 98 - 107 mmol/L AO ADM SS CO2 [Moles/Vol] 34 mmol/L Invalid Interpretation Code 22 - 29 mmol/L AO ADM SS Creatinine [Mass/Vol] 1.09 mg/dL Invalid Interpretation Code 0.70 - 1.30 mg/dL AO ADM SS Electrolyte Balance 4.0 mEq/L Invalid Interpretation Code 4.0 - 15.0 mEq/L AO ADM SS Eosinophil, Absolute 0.30 103/mcL Invalid Interpretation Code 0.00 - 0.40 10^3/mcL AO Auto Heme SS Eosinophils/100 WBC (Bld) 4.2 % Invalid Interpretation Code 0.0 - 7.0 % AO Auto Heme SS Erythrocyte distribution width (RBC) [Ratio] 14.5 % Invalid Interpretation Code 11.5 - 14.5 % AO Auto Heme SS Glucose [Mass/Vol] 93 mg/dL Invalid Interpretation Code 70 - 105 mg/dL AO ADM SS Hematocrit (Bld) [Volume fraction] 43.1 % Invalid Interpretation Code 42.0 - 52.0 % AO Auto Heme SS Hemoglobin (Bld) [Mass/Vol] 13.9 G/dL Invalid Interpretation Code 14.0 - 18.0 G/dL AO Auto Heme SS Lymphocyte, Absolute 1.20 103/mcL Invalid Interpretation Code 0.77 - 3.85 10^3/mcL AO Auto Heme SS Lymphocytes/100 WBC (Bld) 16.7 % Invalid Interpretation Code 10.0 - 50.0 % AO Auto Heme SS MCH (RBC) [Entitic mass] 28.5 pg Invalid Interpretation Code 27.0 - 31.2 pg AO Auto Heme SS MCHC (RBC) [Mass/Vol] 32.3 G/dL Invalid Interpretation Code 31.8 - 35.4 G/dL AO Auto Heme SS MCV (RBC) [Entitic vol] 88.2 fL Invalid Interpretation Code 80.0 - 94.0 fL AO Auto Heme SS Monocyte, Absolute 0.80 103/mcL Invalid Interpretation Code 0.15 - 1.00 10^3/mcL AO Auto Heme SS Monocytes/100 WBC (Bld) 10.9 % Invalid Interpretation Code 1.7 - 13.0 % AO Auto Heme SS Neutrophil, Absolute 5.00 103/mcL Invalid Interpretation Code 2.85 - 6.16 10^3/mcL AO Auto Heme SS Neutrophils/100 WBC (Bld) 67.7 % Invalid Interpretation Code 37.0 - 80.0 % AO Auto Heme SS Platelet mean volume (Bld) [Entitic vol] 8.0 fL Invalid Interpretation Code 7.4 - 10.4 fL AO Auto Heme SS Platelets (Bld) [#/Vol] 277 103/mcL Invalid Interpretation Code 130 - 400 10^3/mcL AO Auto Heme SS Potassium [Moles/Vol] 4.3 mmol/L Invalid Interpretation Code 3.5 - 5.1 mmol/L AO ADM SS RBC (Bld) [#/Vol] 4.88 106/mcL Invalid Interpretation Code 4.04 - 6.13 10^6/mcL AO Auto Heme SS Sodium [Moles/Vol] 141 mmol/L Invalid Interpretation Code 136 - 145 mmol/L AO ADM SS Urea nitrogen [Mass/Vol] 21 mg/dL Invalid Interpretation Code 7 - 18 mg/dL AO ADM SS Urea nitrogen/Creatinine [Mass ratio] 19 ratio Invalid Interpretation Code 7 - 27 ratio AO ADM SS WBC (Bld) [#/Vol] 7.50 103/mcL Invalid Interpretation Code 4.60 - 10.80 10^3/mcL AO Auto Heme SS LABORATORYOrdered By: SYSTEM SYSTEM on 08-01-2021 GFR 87 ml/min/1.73sqm Invalid Interpretation Code AO Chemistry S GFR Non- 72 ml/min/1.73sqm Invalid Interpretation Code AO Chemistry S XR CHEST 1 VIEWon 08-01-2021 XR CHEST 1 VIEW ORIGINAL EXAMINATION: ONE XRAY VIEW OF THE CHEST 08/01/2021 11:58 am COMPARISON: June 20, 2021 HISTORY: ORDERING SYSTEM PROVIDED HISTORY: Reason for Exam: SOB/cough/fever FINDINGS: Heart is normal in size and there is no vascular congestion present. Emphysema is noted with areas of scarring. Postoperative changes are present at the right upper lung. Scarring at the axillary aspect of the left apex is stable. No definite focal area of consolidation is visible and there is no significant pleural fluid seen. IMPRESSION: Prominent emphysema and areas of scarring. No acute finding. Interpreted by: Leyda Mcfadden MD Preliminary Report By: Leyda Mcfadden MD Electronically signed By Leyda Mcfadden MD Dictated Date: 08/01/2021 12:04:57 PM Prelim Date: 08/01/2021 12:05:37 PM Sign Date: 08/01/2021 12:05:37 PM Ordering Provider: JENSEN [facility] ([place]) .Auto Diffon 07-17-2021 Basophil, Absolute 0.10 10 3/mcL Normal 0.00-0.19 [facility] ([place]) Comment on above: Performed By: #### C BC, ADIFF, ANEU, BMP, GFR, PBNP, TROPHS #### [address] [address] Basophils/100 WBC (Bld) 0.6 % Normal 0.0-2.5 [facility] ([place] Comment on above: Performed By: #### C BC, ADIFF, ANEU, BMP, GFR, PBNP, TROPHS #### [address] [address] Eosinophil, Absolute 0.80 10 3/mcL High 0.00-0.40 A [facility] ([place]) Comment on above: Performed By: #### C BC, ADIFF, ANEU, BMP, GFR, PBNP, TROPHS #### [address] [address] Eosinophils/100 WBC (Bld) 6.3 % Normal 0.0-7.0 [facility] ([place] Comment on above: Performed By: #### C BC, ADIFF, ANEU, BMP, GFR, PBNP, TROPHS #### [address] [address] Lymphocyte, Absolute 1.70 10 3/mcL Normal 0.77-3.85 [facility] ([place]) Comment on above: Performed By: #### C BC, ADIFF, ANEU, BMP, GFR, PBNP, TROPHS #### [address] [address] Lymphocytes/100 WBC (Bld) 13.9 % Normal 10.0-50.0 [facility] ([place] Comment on above: Performed By: #### C BC, ADIFF, ANEU, BMP, GFR, PBNP, TROPHS #### [address] [address] Monocyte, Absolute 1.20 10 3/mcL High 0.15-1.00 [facility] ([place]) Comment on above: Performed By: #### C BC, ADIFF, ANEU, BMP, GFR, PBNP, TROPHS #### [address] [address] Monocytes/100 WBC (Bld) 9.9 % Normal 1.7-13.0 [facility] ([place] Comment on above: Performed By: #### C BC, ADIFF, ANEU, BMP, GFR, PBNP, TROPHS #### [address] [address] Neutrophils/100 WBC (Bld) 69.3 % Normal 37.0-80.0 [facility] ([place] Comment on above: Performed By: #### C BC, ADIFF, ANEU, BMP, GFR, PBNP, TROPHS #### [address] [address] .GFRon 07-17-2021 GFR Non- 70 ml/min/1.73sqm Normal [facility] ([place] Comment on above: Result Comment: GFR Population mean for , Non- Americans Ages 20-29 = 116 mL/min/1.73 sq.m. Ages 30-39 = 107 mL/min/1.73 sq.m. Ages 40-49 = 99 mL/min/1.73 sq.m. Ages 50-59 = 93 mL/min/1.73 sq.m. Ages 60-69 = 85 mL/min/1.73 sq.m. Ages 70+ = 75 mL/min/1.73 sq.m. Chronic Kidney Disease: Less than 60 mL/min/1.73 square meters End Stage Renal Disease: Less than 15 mL/min/1.73 square meters Performed By: #### C BC, ADIFF, ANEU, BMP, GFR, PBNP, TROPHS #### [address] [address] GFR 85 ml/min/1.73sqm Normal [facility] ([place] Comment on above: Result Comment: GFR Population mean for , Non- Americans Ages 20-29 = 116 mL/min/1.73 sq.m. Ages 30-39 = 107 mL/min/1.73 sq.m. Ages 40-49 = 99 mL/min/1.73 sq.m. Ages 50-59 = 93 mL/min/1.73 sq.m. Ages 60-69 = 85 mL/min/1.73 sq.m. Ages 70+ = 75 mL/min/1.73 sq.m. Chronic Kidney Disease: Less than 60 mL/min/1.73 square meters End Stage Renal Disease: Less than 15 mL/min/1.73 square meters Performed By: #### C BC, ADIFF, ANEU, BMP, GFR, PBNP, TROPHS #### [address] [address] .NEUABSon 07-17-2021 Neutrophil, Absolute 8.70 10 3/mcL High 2.85-6.16 [facility] ([place]) Comment on above: Performed By: #### C BC, ADIFF, ANEU, BMP, GFR, PBNP, TROPHS #### [address] [address] CBCon 07-17-2021 Erythrocyte distribution width (RBC) [Ratio] 14.8 % High 11.5-14.5 [facility] ([place] Comment on above: Performed By: #### C BC, ADIFF, ANEU, CMP, PBNP, TROPHS, GFR #### [address] [address] Hematocrit (Bld) [Volume fraction] 41.4 % Low 42.0-52.0 [facility] ([place] Comment on above: Performed By: #### C BC, ADIFF, ANEU, CMP, PBNP, TROPHS, GFR #### [address] [address] Hgb 13.8 G/dL Low 14.0-18.0 [facility] ([place] Comment on above: Performed By: #### C BC, ADIFF, ANEU, CMP, PBNP, TROPHS, GFR #### [address] [address] MCH (RBC) [Entitic mass] 29.2 pg Normal 27.0-31.2 [facility] ([place] Comment on above: Performed By: #### C BC, ADIFF, ANEU, CMP, PBNP, TROPHS, GFR #### [place] [address] MCHC 33.3 G/dL Normal 31.8-35.4 [facility] [place] Comment on above: Performed By: #### C BC, ADIFF, ANEU, CMP, PBNP, TROPHS, GFR #### [address] [address] MCV (RBC) [Entitic vol] 87.9 fL Normal 80.0-94.0 [facility] [place] Comment on above: Performed By: #### C BC, ADIFF, ANEU, CMP, PBNP, TROPHS, GFR #### [address] [address] Platelet 495 10 3/mcL High 130-400 [facility] [place] Comment on above: Performed By: #### C BC, ADIFF, ANEU, CMP, PBNP, TROPHS, GFR #### [address] [address] Platelet mean volume (Bld) [Entitic vol] 7.8 fL Normal 7.4-10.4 [facility] [place] Comment on above: Performed By: #### C BC, ADIFF, ANEU, CMP, PBNP, TROPHS, GFR #### [address] [address] RBC 4.71 10 6/mcL Normal 4.04-6.13 [facility] [place] Comment on above: Performed By: #### C BC, ADIFF, ANEU, CMP, PBNP, TROPHS, GFR #### [address] [address] WBC 12.60 10 3/mcL High 4.60-10.80 [facility] [place] Comment on above: Performed By: #### C BC, ADIFF, ANEU, CMP, PBNP, TROPHS, GFR #### [address] [address] CMPon 07-17-2021 Albumin Level 3.9 G/dL Normal 3.5-5.0 [facility] [place] Comment on above: Performed By: #### C BC, ADIFF, ANEU, BMP, GFR, PBNP, TROPHS #### [address] [address] Albumin/Globulin [Mass ratio] 1.0 {ratio} Low 1.1-2.5 [facility] [place] Comment on above: Performed By: #### C BC, ADIFF, ANEU, BMP, GFR, PBNP, TROPHS #### [address] [address] ALP [Catalytic activity/Vol] 112 U/L Normal 40-135 [facility] [place] Comment on above: Performed By: #### C BC, ADIFF, ANEU, BMP, GFR, PBNP, TROPHS #### [address] [address] ALT [Catalytic activity/Vol] 22 U/L Normal 16-63 [facility] [place] Comment on above: Performed By: #### C BC, ADIFF, ANEU, BMP, GFR, PBNP, TROPHS #### [address] [address] AST [Catalytic activity/Vol] 9 U/L Low 10-40 [facility] [place] Comment on above: Performed By: #### C BC, ADIFF, ANEU, BMP, GFR, PBNP, TROPHS #### [address] [address] Bili Total 0.3 mg/dL Normal 0.2-1.0 [facility] [place] Comment on above: Result Comment: Use of this assay is not recommended for patients undergoing treatment with eltrombopag due to the potential for falsely elevated results. Performed By: #### C BC, ADIFF, ANEU, BMP, GFR, PBNP, TROPHS #### [address] [address] BUN/Creatinine Ratio 21 ratio Normal 7-27 [facility] ([place]) Comment on above: Performed By: #### C BC, ADIFF, ANEU, BMP, GFR, PBNP, TROPHS #### [address] [address] Calcium [Mass/Vol] 9.7 mg/dL Normal 8.4-10.2 [facility] ([place]) Comment on above: Performed By: #### C BC, ADIFF, ANEU, BMP, GFR, PBNP, TROPHS #### [address] [address] Chloride [Moles/Vol] 99 mmol/L Normal 98-107 [facility] ([place] Comment on above: Performed By: #### C BC, ADIFF, ANEU, BMP, GFR, PBNP, TROPHS #### [address] [address] CO2 [Moles/Vol] 32 mmol/L High 22-29 [facility] [place] Comment on above: Performed By: #### C BC, ADIFF, ANEU, BMP, GFR, PBNP, TROPHS #### [address] [address] Creatinine [Mass/Vol] 1.11 mg/dL Normal 0.70-1.30 [facility] ([place]) Comment on above: Performed By: #### C BC, ADIFF, ANEU, BMP, GFR, PBNP, TROPHS #### [address] [address] Electrolyte Balance 8.0 mEq/L Normal 4.0-15.0 [facility] ([place]) Comment on above: Performed By: #### C BC, ADIFF, ANEU, BMP, GFR, PBNP, TROPHS #### [address] [address] Globulin 3.9 G/dL Normal [facility] [place] Comment on above: Performed By: #### C BC, ADIFF, ANEU, BMP, GFR, PBNP, TROPHS #### [address] [address] Glucose [Mass/Vol] 131 mg/dL High 70-105 [facility] ([place] Comment on above: Performed By: #### C BC, ADIFF, ANEU, BMP, GFR, PBNP, TROPHS #### [address] [address] Potassium [Moles/Vol] 4.4 mmol/L Normal 3.5-5.1 [facility] ([place] Comment on above: Performed By: #### C BC, ADIFF, ANEU, BMP, GFR, PBNP, TROPHS #### [address] [address] Sodium [Moles/Vol] 139 mmol/L Normal 136-145 [facility] ([place] Comment on above: Performed By: #### C BC, ADIFF, ANEU, BMP, GFR, PBNP, TROPHS #### [address] [address] Total Protein 7.8 G/dL Normal 6.4-8.2 [facility] [place] Comment on above: Performed By: #### C BC, ADIFF, ANEU, BMP, GFR, PBNP, TROPHS #### [address] [address] Urea nitrogen [Mass/Vol] 23 mg/dL High 7-18 [facility] [place] Comment on above: Performed By: #### C BC, ADIFF, ANEU, BMP, GFR, PBNP, TROPHS #### [place] [address] [id number] 07-17-2021 Date of Onset [id number] Invalid Interpretation Code [facility] [place] Comment on above: Performed By: #### C BC, ADIFF, ANEU, BMP, GFR, PBNP, TROPHS #### [place] [address] Employed in Healthcare No [facility] ([place] Comment on above: Performed By: #### C BC, ADIFF, ANEU, BMP, GFR, PBNP, TROPHS #### [place] [address] First Test Unknown Normal [facility] [place] Comment on above: Performed By: #### C BC, ADIFF, ANEU, BMP, GFR, PBNP, TROPHS #### [place] [address] Hospitalized No [facility] ([place] Comment on above: Performed By: #### C BC, ADIFF, ANEU, BMP, GFR, PBNP, TROPHS #### [place] [address] ICU No [facility] ([place] Comment on above: Performed By: #### C BC, ADIFF, ANEU, BMP, GFR, PBNP, TROPHS #### [place] [address] Not [facility] [place] Comment on above: Performed By: #### C BC, ADIFF, ANEU, BMP, GFR, PBNP, TROPHS #### [place] [address] Resides in Congregate Care Setting No [facility] [place] Comment on above: Performed By: #### C BC, ADIFF, ANEU, BMP, GFR, PBNP, TROPHS #### [place] [address] SARS-CoV-2 (COVID-19) RNA DESTINY+probe Ql (Unsp spec) Negative Normal Negative [facility] [place] Comment on above: Performed By: #### C BC, ADIFF, ANEU, BMP, GFR, PBNP, TROPHS #### [place] [address] [place], [place] [address] SARS-CoV-2 (COVID-19) RNA DESTINY+probe Ql (Unsp spec) [facility] ([place] Comment on above: Result Comment: Nega tive results do not preclude SARS-CoV-2 infection and should not be used as the sole basis for patient management decisions. Negative results must be combined with clinical observations, patient history, and epidemiological information. There is a risk of false negative values resulting from improperly collected, transported, or handled specimens. There is a risk of false negative values due to the presence of sequence variants in the pathogen targets of the assay, procedural errors, amplification inhibitors in specimens, or inadequate numbers of organisms for amplification. ANTHONY SARS-CoV-2 Assay is a Real-Time reverse-transcriptase polymerase chain reaction (RT-PCR) based qualitative in vitro diagnostic test intended for the qualitative detection of nucleic acid from the SARS-CoV-2 in nasopharyngeal swab specimens collected from individuals suspected of COVID-19 by their healthcare provider. Testing is limited to laboratories certified under the Clinical Laboratory Improvement Amendments of 1988 (CLIA), 42 U.S.C. ?263a, to perform moderate and high complexity tests. COVID-19 Int Performed By: #### C BC, ADIFF, ANEU, BMP, GFR, PBNP, TROPHS #### [address] [address] Symptomatic as Defined by CDC No [facility] ([place] Comment on above: Performed By: #### C BC, ADIFF, ANEU, BMP, GFR, PBNP, TROPHS #### [place] [id number] [place], [place] [address] CT ANGIOGRAPHY CHEST W/CONTR Salma 07-17-2021 CT ANGIOGRAPHY CHEST W/CONTRAST ORIGINAL EXAMINATION: CTA OF THE CHEST07/17/2021 7:09 pm TECHNIQUE: CTA of the chest was performed after the administration of intravenous contrast. Multiplanar reformatted images are provided for review. MIP images are provided for review. Dose modulation, iterative reconstruction, and/or weight based adjustment of the mA/kV was utilized to reduce the radiation dose to as low as reasonably achievable. COMPARISON: CT thorax 07/18/2017. HISTORY: ORDERING SYSTEM PROVIDED HISTORY: Reason for Exam: chest pain; suspect PE. FINDINGS: QUALITY: There is adequate contrast opacification of the pulmonary arterial vasculature. Pulmonary Embolism: No pulmonary emboli to the level of the segmental arteries. The main pulmonary artery is normal in size. No evidence of right heart strain. Mediastinum: The heart is normal in size. No pericardial effusion. There is no visible coronary artery calcification. Aorta is normal in caliber. No lymphadenopathy or pneumomediastinum. Lungs: Diffuse paraseptal and centrilobular emphysema with panacinar emphysema in the lung apices. Calcific density in scarring in the right upper lung related to chronic inflammatory change or subsegmental resection of the right upper lung. Bronchiectasis and bronchiolectasis with mucous plugging throughout the lower lungs and right middle lobe. Airways: The trachea is normal. Bones: There is no acute fracture or aggressive osseous lesion. Upper Abdomen: Limited images of the upper abdomen are noncontributory. IMPRESSION: No pulmonary embolus. Diffuse emphysema. Bronchiectasis and mucous plugging of the lower lungs likely related to prior infection. This has at least mildly increased since the comparison. I have reviewed this report and agree with the resident findings and interpretation. Interpreted by: Glen Alaniz MD Preliminary Report By: Jose Alfredo Crawford Electronically signed By Glen Alaniz MD Dictated Date: 07/17/2021 7:16:10 PM Prelim Date: 07/17/2021 7:24:29 PM Sign Date: 07/17/2021 7:46:38 PM Ordering Provider: FUAD MCCALL [facility] ([place]) CT HEAD OR BRAIN W/O CONTRAS Ton 07-17-2021 CT HEAD OR BRAIN W/O CONTRAST ORIGINAL HISTORY: Dizziness COMPARISON: 23 September 2019 TECHNIQUE: Routine non-contrast head CT with sagittal and coronal reconstructions This exam was performed according to our departmental dose optimization program, and includes the following measures where applicable: automated exposure control, adjustment of the mAs and/or kVp according to patient size and/or exam, and an iterative reconstruction algorithm. FINDINGS: The ventricles and sulci are normal in size and configuration. There are no abnormal intra or extra-axial fluid collections. Lugo-white matter differentiation is maintained. The calvaria and the bones of the base of the skull are intact. There is left maxillary sinus disease. IMPRESSION: Normal examination of the brain. Interpreted by: Glen Alaniz MD Preliminary Report By: Glen Alaniz MD Electronically signed By Glen Alaniz MD Dictated Date: 07/17/2021 6:59:45 PM Prelim Date: 07/17/2021 7:01:08 PM Sign Date: 07/17/2021 7:01:08 PM Ordering Provider: FUAD [facility] ([place]) Beth 07-17-2021 Flu A PCR (AO) Negative Normal Negative [facility] [place] Comment on above: Result Comment: Posi tive Results: Positive Flu A/B or RSV for by PCR. Positive test results do not rule out bacterial infection or co-infection with other pathogens. Test results should be interpreted in conjunction with other laboratory and clinical data. Negative Results: Negative for by PCR. Negative test results do not preclude influenza virus or RSV infection and should not be used as the sole basis for diagnosis, treatment, or other management decisions. There is a risk of false negative RSV results when at low concentration and in the presence of co-infection with high concentration of influenza A. Invalid Results: An Invalid result (INV) was obtained. The test was repeated with similar results. REPEAT COLLECTION AND TESTING IS RECOMMENDED. The [employer] Flu A/B & RSV Assay is a real-time polymerase chain reaction (PCR) based qualitative in vitro diagnostic test for the direct detection and differentiation of influenza A virus, influenza B virus, and respiratory syncytial virus (RSV) nucleic acid in nasopharyngeal swab (PALS SPECIALIST) specimens from patients with signs and symptoms of respiratory infection in conjunction with clinical and laboratory findings. The test is intended for use as an aid in the differential diagnosis of influenza A virus, influenza B virus, and RSV in humans and is not intended to detect influenza C. Performed By: #### C BC, ADIFF, ANEU, BMP, GFR, PBNP, TROPHS #### [place] [id number] [place], [place] [address] Flu B PCR (AO) Negative Normal Negative [facility] ([place] Comment on above: Result Comment: Posi tive Results: Positive Flu A/B or RSV for by PCR. Positive test results do not rule out bacterial infection or co-infection with other pathogens. Test results should be interpreted in conjunction with other laboratory and clinical data. Negative Results: Negative for by PCR. Negative test results do not preclude influenza virus or RSV infection and should not be used as the sole basis for diagnosis, treatment, or other management decisions. There is a risk of false negative RSV results when at low concentration and in the presence of co-infection with high concentration of influenza A. Invalid Results: An Invalid result (INV) was obtained. The test was repeated with similar results. REPEAT COLLECTION AND TESTING IS RECOMMENDED. The Anthony Flu A/B & RSV Assay is a real-time polymerase chain reaction (PCR) based qualitative in vitro diagnostic test for the direct detection and differentiation of influenza A virus, influenza B virus, and respiratory syncytial virus (RSV) nucleic acid in nasopharyngeal swab (PALS SPECIALIST) specimens from patients with signs and symptoms of respiratory infection in conjunction with clinical and laboratory findings. The test is intended for use as an aid in the differential diagnosis of influenza A virus, influenza B virus, and RSV in humans and is not intended to detect influenza C. Performed By: #### C BC, ADIFF, ANEU, BMP, GFR, PBNP, TROPHS #### [place] [id number] [place], [place] [address] RSV PCR (AO) Negative Normal Negative [facility] ([place]) Comment on above: Result Comment: Posi tive Results: Positive Flu A/B or RSV for by PCR. Positive test results do not rule out bacterial infection or co-infection with other pathogens. Test results should be interpreted in conjunction with other laboratory and clinical data. Negative Results: Negative for by PCR. Negative test results do not preclude influenza virus or RSV infection and should not be used as the sole basis for diagnosis, treatment, or other management decisions. There is a risk of false negative RSV results when at low concentration and in the presence of co-infection with high concentration of influenza A. Invalid Results: An Invalid result (INV) was obtained. The test was repeated with similar results. REPEAT COLLECTION AND TESTING IS RECOMMENDED. The Anthony Flu A/B & RSV Assay is a real-time polymerase chain reaction (PCR) based qualitative in vitro diagnostic test for the direct detection and differentiation of influenza A virus, influenza B virus, and respiratory syncytial virus (RSV) nucleic acid in nasopharyngeal swab (PALS SPECIALIST) specimens from patients with signs and symptoms of respiratory infection in conjunction with clinical and laboratory findings. The test is intended for use as an aid in the differential diagnosis of influenza A virus, influenza B virus, and RSV in humans and is not intended to detect influenza C. Performed By: #### C BC, ADIFF, ANEU, BMP, GFR, PBNP, TROPHS #### [address] [address] FT3on 07-17-2021 Free T3 [Mass/Vol] 2.82 pg/mL Normal 2.30-4.00 [facility] ([place]) Comment on above: Performed By: #### C BC, ADIFF, ANEU, BMP, GFR, PBNP, TROPHS #### [place] [address] FT4on 07-17-2021 Free T4 [Mass/Vol] 0.97 ng/dL Normal 0.76-1.46 [facility] ([place]) Comment on above: Performed By: #### C BC, ADIFF, ANEU, BMP, GFR, PBNP, TROPHS #### [place] [address] LABORATORYOrdered By: Cherie Hsu on 07-17-2021 ADMITTED TO INTENSIVE CARE UNIT FOR CONDITION OF INTEREST:FIND:PT:^PAT IENT:ORD: No (07/17/21 6:39 PM) Invalid Interpretation Code AO Auto Urine SS Basophil, Absolute 0.10 103/mcL Invalid Interpretation Code 0.00 - 0.19 10^3/mcL AO Auto Heme SS Basophils/100 WBC (Bld) 0.6 % Invalid Interpretation Code 0.0 - 2.5 % AO Auto Heme SS EMPLOYED IN A HEALTHCARE SETTING:FIND:PT:^KAELA ENT:ORD: No (07/17/21 6:39 PM) Invalid Interpretation Code AO Auto Urine SS Eosinophil, Absolute 0.80 103/mcL Invalid Interpretation Code 0.00 - 0.40 10^3/mcL AO Auto Heme SS Eosinophils/100 WBC (Bld) 6.3 % Invalid Interpretation Code 0.0 - 7.0 % AO Auto Heme SS Erythrocyte distribution width (RBC) [Ratio] 14.8 % Invalid Interpretation Code 11.5 - 14.5 % AO Auto Heme SS FIRST TEST FOR CONDITION OF INTEREST:FIND:PT:^PAT IENT:ORD: Unknown (07/17/21 6:39 PM) Invalid Interpretation Code AO Auto Urine SS FLUAV RNA DESTINY+probe Ql (Upper resp) Negative (07/17/21 6:39 PM) Invalid Interpretation Code Negative AO Auto Urine SS FLUBV RNA DESTINY+probe Ql (Upper resp) Negative (07/17/21 6:39 PM) Invalid Interpretation Code Negative AO Auto Urine SS HAS SYMPTOMS RELATED TO CONDITION OF INTEREST:FIND:PT:^PAT IENT:ORD: No (07/17/21 6:39 PM) Invalid Interpretation Code AO Auto Urine SS Hematocrit (Bld) [Volume fraction] 41.4 % Invalid Interpretation Code 42.0 - 52.0 % AO Auto Heme SS Hemoglobin (Bld) [Mass/Vol] 13.8 G/dL Invalid Interpretation Code 14.0 - 18.0 G/dL AO Auto Heme SS Illness or injury onset date and time [id number] Invalid Interpretation Code AO Auto Urine SS Lymphocyte, Absolute 1.70 103/mcL Invalid Interpretation Code 0.77 - 3.85 10^3/mcL AO Auto Heme SS Lymphocytes/100 WBC (Bld) 13.9 % Invalid Interpretation Code 10.0 - 50.0 % AO Auto Heme SS MCH (RBC) [Entitic mass] 29.2 pg Invalid Interpretation Code 27.0 - 31.2 pg AO Auto Heme SS MCHC (RBC) [Mass/Vol] 33.3 G/dL Invalid Interpretation Code 31.8 - 35.4 G/dL AO Auto Heme SS MCV (RBC) [Entitic vol] 87.9 fL Invalid Interpretation Code 80.0 - 94.0 fL AO Auto Heme SS Monocyte, Absolute 1.20 103/mcL Invalid Interpretation Code 0.15 - 1.00 10^3/mcL AO Auto Heme SS Monocytes/100 WBC (Bld) 9.9 % Invalid Interpretation Code 1.7 - 13.0 % AO Auto Heme SS Neutrophil, Absolute 8.70 103/mcL Invalid Interpretation Code 2.85 - 6.16 10^3/mcL AO Auto Heme SS Neutrophils/100 WBC (Bld) 69.3 % Invalid Interpretation Code 37.0 - 80.0 % AO Auto Heme SS Patient was hospitalized because of this condition No (07/17/21 6:39 PM) Invalid Interpretation Code AO Auto Urine SS Platelet mean volume (Bld) [Entitic vol] 7.8 fL Invalid Interpretation Code 7.4 - 10.4 fL AO Auto Heme SS Platelets (Bld) [#/Vol] 495 103/mcL Invalid Interpretation Code 130 - 400 10^3/mcL AO Auto Heme SS status Not (07/17/21 6:39 PM) Invalid Interpretation Code AO Auto Urine SS RBC (Bld) [#/Vol] 4.71 106/mcL Invalid Interpretation Code 4.04 - 6.13 10^6/mcL AO Auto Heme SS RESIDES IN A CONGREGATE CARE SETTING:FIND:PT:^KAELA ENT:ORD: No (07/17/21 6:39 PM) Invalid Interpretation Code AO Auto Urine SS RSV RNA DESTINY+probe Ql (Upper resp) Negative (07/17/21 6:39 PM) Invalid Interpretation Code Negative AO Auto Urine SS SARS-CoV-2 (COVID-19) RNA DESTINY+probe Ql (Resp) Negative (07/17/21 6:39 PM) Invalid Interpretation Code Negative AO Auto Urine SS SARS-CoV-2 (COVID-19) RNA DESTINY+probe Ql (Unsp spec) Negative results do not preclude SARS-CoV-2 infection and should not be used as the sole basis for patient management decisions. Negative results must be combined with clinical observations, patient history, and epidemiological information.There is a risk of false negative values resulting from improperly collected, transported, or handled specimens.There is a risk of false negative values due to the presence of sequence variants in the pathogen targets of the assay, procedural errors, amplification inhibitors in specimens, or inadequate numbers of organisms for amplification.ANTHONY SARS-CoV-2 Assay is a Real-Time reverse-transcriptase polymerase chain reaction (RT-PCR) based qualitative in vitro diagnostic test intended for the qualitative detection of nucleic acid from the SARS-CoV-2 in nasopharyngeal swab specimens collected from individuals suspected of COVID-19 by their healthcare provider. Testing is limited to laboratories certified under the Clinical Laboratory Improvement Amendments of 1988 (CLIA), 42 U.S.C. 263a, to perform moderate and high complexity tests. Invalid Interpretation Code AO Auto Urine SS WBC (Bld) [#/Vol] 12.60 103/mcL Invalid Interpretation Code 4.60 - 10.80 10^3/mcL AO Auto Heme SS LABORATORYOrdered By: Ivette Mesa on 07-17-2021 Albumin BCP dye [Mass/Vol] 3.9 G/dL Invalid Interpretation Code 3.5 - 5.0 G/dL AO ADM SS Albumin/Globulin [Mass ratio] 1.0 {ratio} Invalid Interpretation Code 1.1 - 2.5 ratio AO ADM SS ALP [Catalytic activity/Vol] 112 U/L Invalid Interpretation Code 40 - 135 U/L AO ADM SS ALT With P-5'-P [Catalytic activity/Vol] 22 U/L Invalid Interpretation Code 16 - 63 U/L AO ADM SS AST With P-5'-P [Catalytic activity/Vol] 9 U/L Invalid Interpretation Code 10 - 40 U/L AO ADM SS Bilirubin [Mass/Vol] 0.3 mg/dL Invalid Interpretation Code 0.2 - 1.0 mg/dL AO ADM SS Calcium [Mass/Vol] 9.7 mg/dL Invalid Interpretation Code 8.4 - 10.2 mg/dL AO ADM SS Chloride [Moles/Vol] 99 mmol/L Invalid Interpretation Code 98 - 107 mmol/L AO ADM SS CO2 [Moles/Vol] 32 mmol/L Invalid Interpretation Code 22 - 29 mmol/L AO ADM SS Creatinine [Mass/Vol] 1.11 mg/dL Invalid Interpretation Code 0.70 - 1.30 mg/dL AO ADM SS Electrolyte Balance 8.0 mEq/L Invalid Interpretation Code 4.0 - 15.0 mEq/L AO ADM SS Free T3 [Mass/Vol] 2.82 pg/mL Invalid Interpretation Code 2.30 - 4.00 pg/mL AO ADM SS Free T4 [Mass/Vol] 0.97 ng/dL Invalid Interpretation Code 0.76 - 1.46 ng/dL AO ADM SS Globulin 3.9 G/dL Invalid Interpretation Code AO ADM SS Glucose [Mass/Vol] 131 mg/dL Invalid Interpretation Code 70 - 105 mg/dL AO ADM SS Natriuretic peptide.B prohormone N-Terminal [Mass/Vol] 13 pg/mL Invalid Interpretation Code 0 - 125 pg/mL AO ADM SS Potassium [Moles/Vol] 4.4 mmol/L Invalid Interpretation Code 3.5 - 5.1 mmol/L AO ADM SS Protein [Mass/Vol] 7.8 G/dL Invalid Interpretation Code 6.4 - 8.2 G/dL AO ADM SS Sodium [Moles/Vol] 139 mmol/L Invalid Interpretation Code 136 - 145 mmol/L AO ADM SS Troponin I.cardiac DL <= 0.01 ng/mL [Mass/Vol] 4.7 ng/L Invalid Interpretation Code 0.0 - 76.2 ng/L AO ADM SS TSH Qn 0.89 m[IU]/L Invalid Interpretation Code 0.36 - 3.74 mcIU/mL AO ADM SS Urea nitrogen [Mass/Vol] 23 mg/dL Invalid Interpretation Code 7 - 18 mg/dL AO ADM SS Urea nitrogen/Creatinine [Mass ratio] 21 ratio Invalid Interpretation Code 7 - 27 ratio AO ADM SS LABORATORYOrdered By: SYSTEM SYSTEM on 07-17-2021 GFR 85 ml/min/1.73sqm Invalid Interpretation Code AO Chemistry S GFR Non- 70 ml/min/1.73sqm Invalid Interpretation Code AO Chemistry S PBNPon 07-17-2021 Natriuretic peptide B (Bld) [Mass/Vol] 13 pg/mL Normal 0-125 [facility] Comment on above: Result Comment: NT-p roBNP results of less than 300 pg/mL effectively rules out acute congestive heart failure with 99% negative predictive value. Performed By: #### C BC, ADIFF, ANEU, BMP, GFR, PBNP, TROPHS #### [address] [address] TROPHSon 07-17-2021 Troponin I High Sensitivity 4.7 ng/L Normal 0.0-76.2 [facility] ([place] Comment on above: Performed By: #### C BC, ADIFF, ANEU, BMP, GFR, PBNP, TROPHS #### [address] [address] TSHon 07-17-2021 TSH Qn 0.89 m[IU]/L Normal 0.36-3.74 [facility] ([place] Comment on above: Performed By: #### C BC, ADIFF, ANEU, BMP, GFR, PBNP, TROPHS #### [address] [address] Basic Metabolic Panelon 06-14 Calcium [Mass/Vol] 9.2 mg/dL Normal 8.4-10.4 [facility] Comment on above: Performed By: #### H OMCY, FOLT3, HEMDF, BMP3M #### [facility] [address] [place] [address] #### MMA2 #### The performing lab is in the report. Glucose [Mass/Vol] 119 mg/dL High 70-100 [facility] Comment on above: Performed By: #### H OMCY, FOLT3, HEMDF, BMP3M #### [facility] [address] [place] [address] #### MMA2 #### The performing lab is in the report. Anion gap [Moles/Vol] 4 mmol/L Normal 3-13 [facility] Comment on above: Performed By: #### H OMCY, FOLT3, HEMDF, BMP3M #### [facility] [address] [place] [place] [address] #### MMA2 #### The performing lab is in the report. CO2 [Moles/Vol] 33 mmol/L High 22-30 [facility] Comment on above: Performed By: #### H OMCY, FOLT3, HEMDF, BMP3M #### [facility] [address] [place] [address] #### MMA2 #### The performing lab is in the report. Creatinine [Mass/Vol] 0.90 mg/dL Normal 0.52-1.25 [facility] Comment on above: Performed By: #### H OMCY, FOLT3, HEMDF, BMP3M #### [facility] [address] [place] [address] #### MMA2 #### The performing lab is in the report. eGFR OTHER > 90.0 Normal >60 [facility] Comment on above: Result Comment: KDIG O guidelines provide the following GFR categories: Stage GFR(ml/min/1.73 m2) Terms G1 >=90 Normal or high G2 60-89 Mildly decreased* G3a 45-59 Mildly to moderately decreased G3b 30-44 Moderately to severely decreased G4 15-29 Severely decreased G5 <15 Kidney failure *Relative to young adult level. In the absence of evidence of kidney damage, neither GFR category G1 nor G2 fulfill the criteria for CKD. The CKD-EPI equation is validated in individuals 18 years of age and older. Currently the best equation for estimating glomerular filtration rate (GFR) from serum creatinine in children is the Bedside Balbuena equation. It is less accurate in patients with extremes of muscle mass, restriction of dietary protein, ingestion of creatine, extra-renal metabolism of creatinine, or treatment with medications that affect renal tubular creatinine secretion. Performed By: #### H OMCY, FOLT3, HEMDF, BMP3M #### [facility] [address] [place] [address] #### MMA2 #### The performing lab is in the report. GFR/1.73 sq M.predicted among blacks MDRD (S/P/Bld) [Vol rate/Area] mL/min/{1.73_m2} Normal >60 [facility] Comment on above: Performed By: #### H OMCY, FOLT3, HEMDF, BMP3M #### [facility] [address] [place] [address] #### MMA2 #### The performing lab is in the report. Urea nitrogen [Mass/Vol] 18 mg/dL High 7-17 [facility] Comment on above: Performed By: #### H OMCY, FOLT3, HEMDF, BMP3M #### [facility] [address] [place] [address] #### MMA2 #### The performing lab is in the report. Chloride [Moles/Vol] 100 mmol/L Normal 98-107 [facility] Comment on above: Performed By: #### H OMCY, FOLT3, HEMDF, BMP3M #### [facility] [address] [place] [address] #### MMA2 #### The performing lab is in the report. Potassium [Moles/Vol] 4.4 mmol/L Normal 3.5-5.1 [facility] Comment on above: Performed By: #### H OMCY, FOLT3, HEMDF, BMP3M #### [facility] [address] [place] [address] #### MMA2 #### The performing lab is in the report. Sodium [Moles/Vol] 137 mmol/L Normal 135-145 [facility] Comment on above: Performed By: #### H OMCY, FOLT3, HEMDF, BMP3M #### [facility] [address] [place] [address] #### MMA2 #### The performing lab is in the report. Anion gap [Moles/Vol] 4 mmol/L 3 - 13 mmol/L [facility] Calcium [Mass/Vol] 9.2 mg/dL 8.4 - 10. 4 mg/dL [facility] Chloride [Moles/Vol] 100 mmol/L 98 - 10 7 mmol/L [facility] CO2 [Moles/Vol] 33 mmol/L High 22 - 30 mmol/L [facility] Creatinine [Mass/Vol] 0.9 mg/dL 0.52 - 1.25 mg/dL [facility] EGFR IF NonAfrican Citizen Of [place] >90.0 >60 mL/min [facility] Comment on above: KDIGO guidelines pro vide the following GFR categories: Stage GFR(ml/min/1.73 m2) Terms G1 >=90 Normal or high G2 60-89 Mildly decreased* G3a 45-59 Mildly to moderately decreased G3b 30-44 Moderately to severely decreased G4 15-29 Severely decreased G5 <15 Kidney failure *Relative to young adult level. In the absence of evidence of kidney damage, neither GFR category G1 nor G2 fulfill the criteria for CKD. The CKD-EPI equation is validated in individuals 18 years of age and older. Currently the best equation for estimating glomerular filtration rate (GFR) from serum creatinine in children is the Bedside Balbuena equation. It is less accurate in patients with extremes of muscle mass, restriction of dietary protein, ingestion of creatine, extra-renal metabolism of creatinine, or treatment with medications that affect renal tubular creatinine secretion. GFR/1.73 sq M.predicted among blacks MDRD (S/P/Bld) [Vol rate/Area] mL/min/{1.73_m2} >60 mL/min [facility] Glucose [Mass/Vol] 119 mg/dL High 70 - 100 mg/dL [facility] Interpretation and review of laboratory results Abnormal [facility] Potassium [Moles/Vol] 4.4 mmol/L 3.5 - 5.1 mmol/L [facility] Sodium [Moles/Vol] 137 mmol/L 135 - 145 mmol/L [facility] Urea nitrogen (BldV) [Mass/Vol] 18 mg/dL High 7 - 17 mg/dL [facility] Test Performed by [facility], [address], [place], [place] [address] [facility] CBC with Auto Differentialon 07-11-2021 Absolute Baso # 0.1 10*3/uL 0.0 - 0.2 10*3/uL [facility] Absolute Neut # 9.2 10*3/uL High 1.8 - 7.0 10*3/uL [facility] Basophils/100 WBC (Bld) 0.6 % 0.0 - 2.0 % [facility] Eosinophils (Bld) [#/Vol] 0.2 10*3/uL 0.0 - 0.5 10*3/uL [facility] Eosinophils/100 WBC (Bld) 1.8 % 1.0 - 6.0 % [facility] Granulocytes/100 WBC (Bld) 70.6 % 40.0 - 80.0 % [facility] Hematocrit (Bld) [Volume fraction] 36.0 % Low 40.0 - 52.0 % [facility] Hemoglobin.gastrointe stinal spec 1 Ql (Stl) 11.8 g/dL Low 13.0 - 18.0 g/dL [facility] Interpretation and review of laboratory results Abnormal [facility] Lymphocytes (Bld) [#/Vol] 2.0 10*3/uL 1.0 - 4.3 10*3/uL [facility] Lymphocytes/100 WBC (Bld) 15.6 % Low 20.0 - 40.0 % [facility] MCH (RBC) [Entitic mass] 29.1 pg 26.0 - 34.0 pg [facility] MCHC (RBC) [Mass/Vol] 32.8 % 32.0 - 36.0 % [facility] MCV (RBC) [Entitic vol] 88.6 fL 80.0 - 98.0 fL [facility] Monocytes (Bld) [#/Vol] 1.5 10*3/uL High 0.0 - 0.8 10*3/uL [facility] Monocytes/100 WBC (Bld) 11.4 % High 2.0 - 10.0 % [facility] Platelet distribution width (Bld) [Ratio] 14.0 % 11.5 - 14.5 % [facility] Platelet mean volume (Bld) [Entitic vol] 7.4 fL 7.4 - 12.4 fL [facility] Comment on above: MPV is a calculated measurement using platelet volume ratio. Platelets (Bld) [#/Vol] 357 10*3/uL 140 - 440 10*3/uL [facility] RBC (Bld) [#/Vol] 4.06 10*6/uL Low 4.40 - 5.9 0 10*6/uL [facility] WBC (Bld) [#/Vol] 13.0 10*3/uL High 3.6 - 10.7 10*3/uL [facility] Test Performed by [facility], [address] [facility] Hemogram w/ Autodiffon 07-11 Abs Baso Cnt 0.1 10*3/uL Normal 0.0-0.2 [facility] Comment on above: Performed By: #### H OMCY, FOLT3, HEMDF, BMP3M #### [facility] [address] [place] [address] #### MMA2 #### The performing lab is in the report. Abs Neutrophile Cnt 9.2 10*3/uL High 1.8-7.0 [facility] Comment on above: Performed By: #### H OMCY, FOLT3, HEMDF, BMP3M #### [facility] [address] [place] [address] #### MMA2 #### The performing lab is in the report. Basophils/100 WBC (Bld) 0.6 % Normal 0.0-2.0 [facility] Comment on above: Performed By: #### H OMCY, FOLT3, HEMDF, BMP3M #### [facility] [address] [place] [address] #### MMA2 #### The performing lab is in the report. Eosinophils (Bld) [#/Vol] 0.2 10*3/uL Normal 0.0-0.5 [facility] Comment on above: Performed By: #### H OMCY, FOLT3, HEMDF, BMP3M #### [facility] [address] [place] [address] #### MMA2 #### The performing lab is in the report. Eosinophils/100 WBC (Bld) 1.8 % Normal 1.0-6.0 [facility] Comment on above: Performed By: #### H OMCY, FOLT3, HEMDF, BMP3M #### [facility] [address] [place] [address] #### MMA2 #### The performing lab is in the report. Erythrocyte distribution width (RBC) [Ratio] 14.0 % Normal 11.5-14.5 [facility] Comment on above: Performed By: #### H OMCY, FOLT3, HEMDF, BMP3M #### [facility] [address] [place] [address] #### MMA2 #### The performing lab is in the report. Granulocytes/100 WBC (Bld) 70.6 % Normal 40.0-80.0 [facility] Comment on above: Performed By: #### H OMCY, FOLT3, HEMDF, BMP3M #### [address] [place] [address] #### MMA2 #### The performing lab is in the report. Hematocrit (Bld) [Volume fraction] 36.0 % Low 40.0-52.0 [facility] Comment on above: Performed By: #### H OMCY, FOLT3, HEMDF, BMP3M #### [address] [place] [address] #### MMA2 #### The performing lab is in the report. Hemoglobin (Bld) [Mass/Vol] 11.8 g/dL Low 13.0-18.0 [facility] Comment on above: Performed By: #### H OMCY, FOLT3, HEMDF, BMP3M #### [facility] [address] [place] [address] #### MMA2 #### The performing lab is in the report. Lymphocytes (Bld) [#/Vol] 2.0 10*3/uL Normal 1.0-4.3 [facility] Comment on above: Performed By: #### H OMCY, FOLT3, HEMDF, BMP3M #### [address] [place] [address] #### MMA2 #### The performing lab is in the report. Lymphocytes/100 WBC (Bld) 15.6 % Low 20.0-40.0 [facility] Comment on above: Performed By: #### H OMCY, FOLT3, HEMDF, BMP3M #### [facility] [address] [place] [address] #### MMA2 #### The performing lab is in the report. MCH (RBC) [Entitic mass] 29.1 pg Normal 26.0-34.0 [facility] Comment on above: Performed By: #### H OMCY, FOLT3, HEMDF, BMP3M #### [facility] [address] [place] [address] #### MMA2 #### The performing lab is in the report. MCHC 32.8 % Normal 32.0-36.0 [facility] Comment on above: Performed By: #### H OMCY, FOLT3, HEMDF, BMP3M #### [facility] [address] [place] [address] #### MMA2 #### The performing lab is in the report. MCV (RBC) [Entitic vol] 88.6 fL Normal 80.0-98.0 [facility] Comment on above: Performed By: #### H OMCY, FOLT3, HEMDF, BMP3M #### [facility] [address] [place] [address] #### MMA2 #### The performing lab is in the report. Monocytes (Bld) [#/Vol] 1.5 10*3/uL High 0.0-0.8 [facility] Comment on above: Performed By: #### H OMCY, FOLT3, HEMDF, BMP3M #### [facility] [address] [place] [address] #### MMA2 #### The performing lab is in the report. Monocytes/100 WBC (Bld) 11.4 % High 2.0-10.0 [facility] Comment on above: Performed By: #### H OMCY, FOLT3, HEMDF, BMP3M #### [facility] [address] [place] [address] #### MMA2 #### The performing lab is in the report. Platelet mean volume (Bld) [Entitic vol] 7.4 fL Normal 7.4-12.4 [facility] Comment on above: Result Comment: MPV is a calculated measurement using platelet volume ratio. Performed By: #### H OMCY, FOLT3, HEMDF, BMP3M #### [facility] [address] [place] [address] #### MMA2 #### The performing lab is in the report. Platelets (Bld) [#/Vol] 357 10*3/uL Normal 140-440 [facility] Comment on above: Performed By: #### H OMCY, FOLT3, HEMDF, BMP3M #### [facility] [address] [place] [address] #### MMA2 #### The performing lab is in the report. RBC (Bld) [#/Vol] 4.06 10*6/uL Low 4.40-5.90 [facility] Comment on above: Performed By: #### H OMCY, FOLT3, HEMDF, BMP3M #### [facility] [address] [place] [address] #### MMA2 #### The performing lab is in the report. WBC (Bld) [#/Vol] 13.0 10*3/uL High 3.6-10.7 [facility] Comment on above: Performed By: #### H OMCY, FOLT3, HEMDF, BMP3M #### [facility] [address] [place] [address] #### MMA2 #### The performing lab is in the report. CULT./ST. RESPIRATORYon 04-2 CULT./ST. RESPIRATORY CULT./ST. RESPIRAT ORY --> Status: F Few normal respiratory olayinka. 1 Organism Pseudomonas aeruginosa Moderate 1 Organism Antibiotic Result Intrp Cefepime(MARISOL) <= 1 S Pip/Tazobactam(MARISOL) <= 4 S Meropenem(MARISOL) <= 0.25 S Ciprofloxacin(MARISOL) <= 0.25 S Gentamicin(MARISOL) <= 1 S Amikacin(MARISOL) <= 2 S Normal [facility] Comment on above: Performed By: #### C S/RE ####[address] [id number] [id number]#### S/GRM ####[address] [address] Culture, Respiratoryon 07-10 Interpretation and review of laboratory results Abnormal [facility] Respiratory Culture Few normal respirato ry olayinka. Abnormal [facility] Respiratory Culture Pseudomonas aeruginosa Abnormal [facility] Res[facility] Moderate [facility] Test Performed by [facility], [address] [place] [address] [facility] HM ENDOSCOPY REPORTon 2021 Ordered by an unspecified provider. [facility] Surgical Pathologyon 022 Surgical Pathology [id number] [facility] PATHOLOGY AND LABORATORY MEDICINE [address] [place] [address] Fax - FINAL SURGICAL PATHOLOGY REPORT NAME: LUIS STEELE : 1970 50 Y Marga LOREDO NO.: [id number] LOCATION: [id number] PROCEDURE 07/10/2021 DATE: SURGEON: KARI COTE MD RECEIVED 07/10/2021 DATE: ATTENDING: GALDINO GEIGER MD REPORT DATE: 07/14/2021 COPIES TO: DIAGNOSIS: MID ESOPHAGUS, BIOPSY - SMALL FRAGMENT OF SQUAMOUS EPITHELIUM WITH MILD CHRONIC INFLAMMATION SMT/SMT Signature> S LEYDA BELL M.D. CLINICAL INFORMATION: Dysphagia, gastroesophageal reflux disease SPECIMEN: ESOPHAGUS BIOPSY GROSS DESCRIPTION: Received in formalin labeled mid esophageal are two fragments of wispy white soft tissue, the smaller measuring 0.2 x 0.2 x 0.1 cm and the larger measuring 0.4 x 0.2 x 0.1 cm. Both submitted in one cassette. BSC/KMS1 Disclaimer: The following statement applies to all immunohistochemistry, in situ hybridization, molecular studies, and immunofluorescence testing. The use of one or more reagents in the above tests is regulated as an analyte specific reagent (ASR). These tests were developed and their performance characteristics determined by the clinical laboratories of [facility]. They have not been cleared by the US Food and Drug Administration (FDA). The FDA has determined that such clearance or approval is not necessary. All the above immunostains were performed on paraffin embedded tissue. Appropriate positive and negative controls (where applicable) were run in parallel with the patient's specimen; these controls showed expected staining pattern, with acceptable intensity of staining. Immunohistochemical assays have not been validated on decalcified tissues. Results should be interpreted with caution given the raised possibility of false negativity on decalcified specimens. Case reviewed at [facility] [address] [place] [address]. DEPARTMENT OF PATHOLOGY AND LABORATORY MEDICINE [place], [place] [address] [email or web address] [facility] Basic Metabolic Panelon 04-2 -2021 Anion gap [Moles/Vol] 5 mmol/L Normal 3-13 [facility] Comment on above: Order Comment: SLIGH T HEMOLYSIS Performed By: #### H EMDF, BMP3M #### [facility] [address] [place] [address] Calcium [Mass/Vol] 8.8 mg/dL Normal 8.4-10.4 [facility] Comment on above: Order Comment: SLIGH T HEMOLYSIS Performed By: #### H EMDF, BMP3M #### [facility] [address] [place] [address] CO2 [Moles/Vol] 28 mmol/L Normal 22-30 [facility] Comment on above: Order Comment: SLIGH T HEMOLYSIS Performed By: #### H EMDF, BMP3M #### [facility] [address] [place] [address] Glucose [Mass/Vol] 108 mg/dL High 70-100 [facility] Comment on above: Order Comment: SLIGH T HEMOLYSIS Performed By: #### H EMDF, BMP3M #### [facility] [address] [place] [address] Urea nitrogen [Mass/Vol] 13 mg/dL Normal 7-17 [facility] Comment on above: Order Comment: SLIGH T HEMOLYSIS Performed By: #### H EMDF, BMP3M #### [facility] [address] [place] [address] Creatinine [Mass/Vol] 0.88 mg/dL Normal 0.52-1.25 [facility] Comment on above: Order Comment: SLIGH T HEMOLYSIS Performed By: #### H BURKE BMP3M #### [facility] [address] [place] [address] eGFR OTHER > 90.0 Normal >60 [facility] Comment on above: Order Comment: SLIGH T HEMOLYSIS Result Comment: KDIG O guidelines provide the following GFR categories: Stage GFR(ml/min/1.73 m2) Terms G1 >=90 Normal or high G2 60-89 Mildly decreased* G3a 45-59 Mildly to moderately decreased G3b 30-44 Moderately to severely decreased G4 15-29 Severely decreased G5 <15 Kidney failure *Relative to young adult level. In the absence of evidence of kidney damage, neither GFR category G1 nor G2 fulfill the criteria for CKD. The CKD-EPI equation is validated in individuals 18 years of age and older. Currently the best equation for estimating glomerular filtration rate (GFR) from serum creatinine in children is the Bedside Balbuena equation. It is less accurate in patients with extremes of muscle mass, restriction of dietary protein, ingestion of creatine, extra-renal metabolism of creatinine, or treatment with medications that affect renal tubular creatinine secretion. Performed By: #### H BURKE BMP3M #### [facility] [address] [place] [address] GFR/1.73 sq M.predicted among blacks MDRD (S/P/Bld) [Vol rate/Area] mL/min/{1.73_m2} Normal >60 [facility] Comment on above: Order Comment: SLIGH T HEMOLYSIS Performed By: #### H BURKE BMP3M #### [facility] [address] [place] [address] Chloride [Moles/Vol] 98 mmol/L Normal 98-107 [facility] Comment on above: Order Comment: SLIGH T HEMOLYSIS Performed By: #### H BURKE BMP3M #### [facility] [address] [place] [address] Potassium [Moles/Vol] 4.4 mmol/L Normal 3.5-5.1 [facility] Comment on above: Order Comment: SLIGH T HEMOLYSIS Performed By: #### H LEELEE TURK3M #### [facility] [address] [place] [address] Sodium [Moles/Vol] 131 mmol/L Low 135-145 [facility] Comment on above: Order Comment: SLIGH T HEMOLYSIS Performed By: #### H LEELEE TURK3M #### [facility] [address] [place] [address] Basic Metabolic Panel w/ Ref cherie to MGon 07-08-2021 Anion gap [Moles/Vol] 5 mmol/L 3 - 13 mmol/L [facility] Calcium [Mass/Vol] 8.8 mg/dL 8.4 - 10. 4 mg/dL [facility] Chloride [Moles/Vol] 98 mmol/L 98 - 10 7 mmol/L [facility] CO2 [Moles/Vol] 28 mmol/L 22 - 30 mmol/L [facility] Creatinine [Mass/Vol] 0.88 mg/dL 0.52 - 1.25 mg/dL [facility] EGFR IF NonAfrican Citizen Of [place] >90.0 >60 mL/min [facility] Comment on above: KDIGO guidelines pro vide the following GFR categories: Stage GFR(ml/min/1.73 m2) Terms G1 >=90 Normal or high G2 60-89 Mildly decreased* G3a 45-59 Mildly to moderately decreased G3b 30-44 Moderately to severely decreased G4 15-29 Severely decreased G5 <15 Kidney failure *Relative to young adult level. In the absence of evidence of kidney damage, neither GFR category G1 nor G2 fulfill the criteria for CKD. The CKD-EPI equation is validated in individuals 18 years of age and older. Currently the best equation for estimating glomerular filtration rate (GFR) from serum creatinine in children is the Bedside Balbuena equation. It is less accurate in patients with extremes of muscle mass, restriction of dietary protein, ingestion of creatine, extra-renal metabolism of creatinine, or treatment with medications that affect renal tubular creatinine secretion. GFR/1.73 sq M.predicted among blacks MDRD (S/P/Bld) [Vol rate/Area] mL/min/{1.73_m2} >60 mL/min [facility] Glucose [Mass/Vol] 108 mg/dL High 70 - 100 mg/dL [facility] Interpretation and review of laboratory results Abnormal [facility] Potassium [Moles/Vol] 4.4 mmol/L 3.5 - 5.1 mmol/L [facility] Sodium [Moles/Vol] 131 mmol/L Low 135 - 145 mmol/L [facility] Urea nitrogen (BldV) [Mass/Vol] 13 mg/dL 7 - 17 mg/dL [facility] Test Performed by [facility], [address] [place], [place] [address] SLIGHT HEMOLYSIS [facility] CBC auto differentialon 06-13 Absolute Baso # 0.0 10*3/uL 0.0 - 0.2 10*3/uL [facility] Absolute Neut # 7.1 10*3/uL High 1.8 - 7.0 10*3/uL [facility] Hemoglobin.gastrointe stinal spec 1 Ql (Stl) 12.5 g/dL Low 13.0 - 18.0 g/dL [facility] Interpretation and review of laboratory results Abnormal [facility] MCHC (RBC) [Mass/Vol] 33.0 % 32.0 - 36.0 % [facility] Platelet distribution width (Bld) [Ratio] 14.2 % 11.5 - 14.5 % [facility] Test Performed by [facility], [address] [facility] CR Chest Portableon 07-09-19 CR Chest Portable Patient Name: LUIS STEELE Diagnostic Radiology ACCESSION EXAM DATE/TIME PROCEDURE ORDERING PROVIDER [id number] 07/08/2021 10:10 EDT CR Chest Portable UNASSIGNED, UNASSIGNED CPT code 47623 Reason For Exam (CR Chest Portable) aspiration Report CHEST X-RAY AP CLINICAL INDICATION: Shortness of breath AP radiograph of the chest was obtained. COMPARISON: July 01, 2021 FINDINGS: The cardiac silhouette is within normal limits. The lungs are hyperinflated. Coarsening of the interstitial lung markings is noted. Atelectasis and/or scarring in the lung bases, similar to the prior exam. Otherwise no new consolidation or opacification is seen within the lungs. No pleural effusion or pneumothorax is identified. There are degenerative changes of the thoracic spine. IMPRESSION: 1. No acute cardiopulmonary process. 2. Hyperinflation of the lungs with coarsening of the interstitial lung markings, suggestive of a component of obstructive lung disease. No focal consolidation is identified. Report Dictated on Final Dictating Physician: MD VILLALOBOS JASON Signed Date and Time: 07/08/2021 10:18 am Signed by: MD VILLALOBOS JASON Transcribed Date and Time: 07/08/2021 10:19 Normal [facility] CT Abdomen Pelvis Wo Contras ton 07-08-2021 Patient Name: LUIS STEELE Computed Tomography ACCESSION EXAM DATE/TIME PROCEDURE ORDERING PROVIDER [id number] 07/08/2021 11:[address] Abdomen/Pelvis (No UNASSIGNED, UNASSIGNED PO, No IV) CPT code 41615 Reason For Exam (CT Abdomen/Pelvis (No PO, No IV)) unintentional weight loss Report CT CHEST WITHOUT CONTRAST: CLINICAL INDICATION: Weight loss. TECHNIQUE: 1 mm axial images without IV contrast. Coronal and sagittal reconstructions were provided. COMPARISON: CTA chest April 08, 2021. FINDINGS: Lungs: Partial right pneumonectomy. Severe emphysema. No focal opacification or consolidation. Areas of linear pleural-parenchymal scarring and architectural distortion are present in the left upper lobe. Bilateral lower lobe bronchiectasis with some mucus plugging. The central airways are otherwise patent. Scattered areas of nodular scarring in the lung bases. No dominant pulmonary nodule or mass lesion. Pleural fluid: None. Heart/Great vessels: Unremarkable. Mediastinum/Catherine/Axill a: No mass or lymphadenopathy is identified. Soft tissues chest wall: Unremarkable. Osseous structures: Normal osseous structures. IMPRESSION: Severe emphysema. No focal opacification or consolidation. Areas of linear pleural-parenchymal scarring and architectural distortion are present in the left upper lobe. Bilateral lower lobe bronchiectasis with some mucus plugging. CT ABDOMEN AND PELVIS WITHOUT IV CONTRAST CLINICAL INDICATION: Abdominal pain. TECHNIQUE: Multidetector axial CT images through the abdomen and pelvis were obtained without IV contrast. No oral contrast was administered. Images were reconstructed in sagittal and coronal planes. Computed Tomography Report COMPARISON: None. FINDINGS: This examination is limited for the evaluation of solid organs and vascular structures due to the lack of intravenous contrast. Stomach: Unremarkable. Liver: Normal size and contours. Normal hepatic parenchyma. No focal lesion. Biliary tree: Unremarkable gallbladder by CT. No biliary dilatation Spleen: Normal Adrenals: Normal. Pancreas: Normal. Right kidney and collecting system: No contour abnormality or focal renal lesion identified. No calculi, hydronephrosis or ureteral dilatation. Left kidney and collecting system: No contour abnormality or focal renal lesion identified. No calculi, hydronephrosis or ureteral dilatation. Free air or fluid: None. Mesenteric/retroperito shahram: No adenopathy or inflammation. Aorta: Normal caliber. Bowel: Scattered sigmoid colon diverticula without evidence of acute diverticulitis. Normal appendix. No inflammatory change or bowel dilatation is noted. Bladder: No calculi or filling defects. Urinary bladder is physiologically distended. Inguinal: No lymphadenopathy. Abdominal wall/soft tissues: No ventral hernia is evident. Osseous structures: No osseous abnormalities. IMPRESSION: 1. No evidence of an acute infectious or inflammatory process in the abdomen or pelvis. 2. Scattered sigmoid colon diverticula without evidence of acute diverticulitis. Report Dictated on --- Final --- Dictating Physician: MD VILLALOBOS JASON Signed Date and Time: 07/08/2021 12:01 pm Signed by: MD VILLALOBOS JASON Transcribed Date and Time: 07/08/2021 12:02 [facility] Michael Villalobos MD - 07/08/2021 Patient Name: LUIS STEELE Computed Tomography ACCESSION EXAM DATE/TIME PROCEDURE ORDERING PROVIDER [id number] 07/08/2021 11:[address] Abdomen/Pelvis (No UNASSIGNED, UNASSIGNED PO, No IV) CPT code 48616 Reason For Exam (CT Abdomen/Pelvis (No PO, No IV)) unintentional weight loss Report CT CHEST WITHOUT CONTRAST: CLINICAL INDICATION: Weight loss. TECHNIQUE: 1 mm axial images without IV contrast. Coronal and sagittal reconstructions were provided. COMPARISON: CTA chest April 08, 2021. FINDINGS: Lungs: Partial right pneumonectomy. Severe emphysema. No focal opacification or consolidation. Areas of linear pleural-parenchymal scarring and architectural distortion are present in the left upper lobe. Bilateral lower lobe bronchiectasis with some mucus plugging. The central airways are otherwise patent. Scattered areas of nodular scarring in the lung bases. No dominant pulmonary nodule or mass lesion. Pleural fluid: None. Heart/Great vessels: Unremarkable. Mediastinum/Catherine/Axill a: No mass or lymphadenopathy is identified. Soft tissues chest wall: Unremarkable. Osseous structures: Normal osseous structures. IMPRESSION: Severe emphysema. No focal opacification or consolidation. Areas of linear pleural-parenchymal scarring and architectural distortion are present in the left upper lobe. Bilateral lower lobe bronchiectasis with some mucus plugging. CT ABDOMEN AND PELVIS WITHOUT IV CONTRAST CLINICAL INDICATION: Abdominal pain. TECHNIQUE: Multidetector axial CT images through the abdomen and pelvis were obtained without IV contrast. No oral contrast was administered. Images were reconstructed in sagittal and coronal planes. Computed Tomography Report COMPARISON: None. FINDINGS: This examination is limited for the evaluation of solid organs and vascular structures due to the lack of intravenous contrast. Stomach: Unremarkable. Liver: Normal size and contours. Normal hepatic parenchyma. No focal lesion. Biliary tree: Unremarkable gallbladder by CT. No biliary dilatation Spleen: Normal Adrenals: Normal. Pancreas: Normal. Right kidney and collecting system: No contour abnormality or focal renal lesion identified. No calculi, hydronephrosis or ureteral dilatation. Left kidney and collecting system: No contour abnormality or focal renal lesion identified. No calculi, hydronephrosis or ureteral dilatation. Free air or fluid: None. Mesenteric/retroperito shahram: No adenopathy or inflammation. Aorta: Normal caliber. Bowel: Scattered sigmoid colon diverticula without evidence of acute diverticulitis. Normal appendix. No inflammatory change or bowel dilatation is noted. Bladder: No calculi or filling defects. Urinary bladder is physiologically distended. Inguinal: No lymphadenopathy. Abdominal wall/soft tissues: No ventral hernia is evident. Osseous structures: No osseous abnormalities. IMPRESSION: 1. No evidence of an acute infectious or inflammatory process in the abdomen or pelvis. 2. Scattered sigmoid colon diverticula without evidence of acute diverticulitis. Report Dictated on --- Final --- Dictating Physician: MD VILLALOBOS JASON Signed Date and Time: 07/08/2021 12:01 pm Signed by: MD VILLALOBOS JASON Transcribed Date and Time: 07/08/2021 12:02 [facility] Work Phone: [facility] Work Phone: CT Abdomen/Pelvis w/o Contra deborah 07-08-2021 CT Abdomen/Pelvis w/o Contrast [facility]: [id number] ACCESSION EXAM DATE/TIME PROCEDURE ORDERING PROVIDER [id number] 07/08/2021 11:[address] Abdomen/Pelvis (No UNASSIGNED, UNASSIGNED PO, No IV) CPT code 83109 Reason For Exam (CT Abdomen/Pelvis (No PO, No IV)) unintentional weight loss Report CT CHEST WITHOUT CONTRAST: CLINICAL INDICATION: Weight loss. TECHNIQUE: 1 mm axial images without IV contrast. Coronal and sagittal reconstructions were provided. COMPARISON: CTA chest April 08, 2021. FINDINGS: Lungs: Partial right pneumonectomy. Severe emphysema. No focal opacification or consolidation. Areas of linear pleural-parenchymal scarring and architectural distortion are present in the left upper lobe. Bilateral lower lobe bronchiectasis with some mucus plugging. The central airways are otherwise patent. Scattered areas of nodular scarring in the lung bases. No dominant pulmonary nodule or mass lesion. Pleural fluid: None. Heart/Great vessels: Unremarkable. Mediastinum/Catherine/Axill a: No mass or lymphadenopathy is identified. Soft tissues chest wall: Unremarkable. Osseous structures: Normal osseous structures. IMPRESSION: Severe emphysema. No focal opacification or consolidation. Areas of linear pleural-parenchymal scarring and architectural distortion are present in the left upper lobe. Bilateral lower lobe bronchiectasis with some mucus plugging. CT ABDOMEN AND PELVIS WITHOUT IV CONTRAST CLINICAL INDICATION: Abdominal pain. TECHNIQUE: Multidetector axial CT images through the abdomen and pelvis were obtained without IV contrast. No oral contrast was administered. Images were reconstructed in sagittal and coronal planes. Computed Tomography Report COMPARISON: None. FINDINGS: This examination is limited for the evaluation of solid organs and vascular structures due to the lack of intravenous contrast. Stomach: Unremarkable. Liver: Normal size and contours. Normal hepatic parenchyma. No focal lesion. Biliary tree: Unremarkable gallbladder by CT. No biliary dilatation Spleen: Normal Adrenals: Normal. Pancreas: Normal. Right kidney and collecting system: No contour abnormality or focal renal lesion identified. No calculi, hydronephrosis or ureteral dilatation. Left kidney and collecting system: No contour abnormality or focal renal lesion identified. No calculi, hydronephrosis or ureteral dilatation. Free air or fluid: None. Mesenteric/retroperito shahram: No adenopathy or inflammation. Aorta: Normal caliber. Bowel: Scattered sigmoid colon diverticula without evidence of acute diverticulitis. Normal appendix. No inflammatory change or bowel dilatation is noted. Bladder: No calculi or filling defects. Urinary bladder is physiologically distended. Inguinal: No lymphadenopathy. Abdominal wall/soft tissues: No ventral hernia is evident. Osseous structures: No osseous abnormalities. IMPRESSION: 1. No evidence of an acute infectious or inflammatory process in the abdomen or pelvis. 2. Scattered sigmoid colon diverticula without evidence of acute diverticulitis. Report Dictated on Final Dictating Physician: MD VILLALOBOS JASON Signed Date and Time: 07/08/2021 12:01 pm Signed by: MD VILLALOBOS JASON Transcribed Date and Time: 07/08/2021 12:02 Normal [facility] CT CHEST WO CONTRASTon 07-08 Patient Name: LUIS STEELE Computed Tomography ACCESSION EXAM DATE/TIME PROCEDURE ORDERING PROVIDER [id number] 07/08/2021 11:[address] Thorax w/o Contrast UNASSIGNED, UNASSIGNED CPT code 07706 Reason For Exam (CT Thorax w/o Contrast) unintentional weight loss Report CT CHEST WITHOUT CONTRAST: CLINICAL INDICATION: Weight loss. TECHNIQUE: 1 mm axial images without IV contrast. Coronal and sagittal reconstructions were provided. COMPARISON: CTA chest April 08, 2021. FINDINGS: Lungs: Partial right pneumonectomy. Severe emphysema. No focal opacification or consolidation. Areas of linear pleural-parenchymal scarring and architectural distortion are present in the left upper lobe. Bilateral lower lobe bronchiectasis with some mucus plugging. The central airways are otherwise patent. Scattered areas of nodular scarring in the lung bases. No dominant pulmonary nodule or mass lesion. Pleural fluid: None. Heart/Great vessels: Unremarkable. Mediastinum/Catherine/Axill a: No mass or lymphadenopathy is identified. Soft tissues chest wall: Unremarkable. Osseous structures: Normal osseous structures. IMPRESSION: Severe emphysema. No focal opacification or consolidation. Areas of linear pleural-parenchymal scarring and architectural distortion are present in the left upper lobe. Bilateral lower lobe bronchiectasis with some mucus plugging. CT ABDOMEN AND PELVIS WITHOUT IV CONTRAST CLINICAL INDICATION: Abdominal pain. TECHNIQUE: Multidetector axial CT images through the abdomen and pelvis were obtained without IV contrast. No oral contrast was administered. Images were reconstructed in sagittal and coronal planes. Computed Tomography Report COMPARISON: None. FINDINGS: This examination is limited for the evaluation of solid organs and vascular structures due to the lack of intravenous contrast. Stomach: Unremarkable. Liver: Normal size and contours. Normal hepatic parenchyma. No focal lesion. Biliary tree: Unremarkable gallbladder by CT. No biliary dilatation Spleen: Normal Adrenals: Normal. Pancreas: Normal. Right kidney and collecting system: No contour abnormality or focal renal lesion identified. No calculi, hydronephrosis or ureteral dilatation. Left kidney and collecting system: No contour abnormality or focal renal lesion identified. No calculi, hydronephrosis or ureteral dilatation. Free air or fluid: None. Mesenteric/retroperito shahram: No adenopathy or inflammation. Aorta: Normal caliber. Bowel: Scattered sigmoid colon diverticula without evidence of acute diverticulitis. Normal appendix. No inflammatory change or bowel dilatation is noted. Bladder: No calculi or filling defects. Urinary bladder is physiologically distended. Inguinal: No lymphadenopathy. Abdominal wall/soft tissues: No ventral hernia is evident. Osseous structures: No osseous abnormalities. IMPRESSION: 1. No evidence of an acute infectious or inflammatory process in the abdomen or pelvis. 2. Scattered sigmoid colon diverticula without evidence of acute diverticulitis. Report Dictated on --- Final --- Dictating Physician: MD VILLALOBOS JASON Signed Date and Time: 07/08/2021 12:01 pm Signed by: MD VILLALOBOS JASON Transcribed Date and Time: 07/08/2021 12:02 [facility] Michael Villalobos MD - 07/08/2021 [id number] Comput[facility] Tom[facility] ACCESSION EXAM DATE/TIME PROCEDURE ORDERING PROVIDER [id number] 07/08/2021 11:[address] Thorax w/o Contrast UNASSIGNED, UNASSIGNED CPT code 02120 Reason For Exam (CT Thorax w/o Contrast) unintentional weight loss Report CT CHEST WITHOUT CONTRAST: CLINICAL INDICATION: Weight loss. TECHNIQUE: 1 mm axial images without IV contrast. Coronal and sagittal reconstructions were provided. COMPARISON: CTA chest April 08, 2021. FINDINGS: Lungs: Partial right pneumonectomy. Severe emphysema. No focal opacification or consolidation. Areas of linear pleural-parenchymal scarring and architectural distortion are present in the left upper lobe. Bilateral lower lobe bronchiectasis with some mucus plugging. The central airways are otherwise patent. Scattered areas of nodular scarring in the lung bases. No dominant pulmonary nodule or mass lesion. Pleural fluid: None. Heart/Great vessels: Unremarkable. Mediastinum/Catherine/Axill a: No mass or lymphadenopathy is identified. Soft tissues chest wall: Unremarkable. Osseous structures: Normal osseous structures. IMPRESSION: Severe emphysema. No focal opacification or consolidation. Areas of linear pleural-parenchymal scarring and architectural distortion are present in the left upper lobe. Bilateral lower lobe bronchiectasis with some mucus plugging. CT ABDOMEN AND PELVIS WITHOUT IV CONTRAST CLINICAL INDICATION: Abdominal pain. TECHNIQUE: Multidetector axial CT images through the abdomen and pelvis were obtained without IV contrast. No oral contrast was administered. Images were reconstructed in sagittal and coronal planes. Computed Tomography Report COMPARISON: None. FINDINGS: This examination is limited for the evaluation of solid organs and vascular structures due to the lack of intravenous contrast. Stomach: Unremarkable. Liver: Normal size and contours. Normal hepatic parenchyma. No focal lesion. Biliary tree: Unremarkable gallbladder by CT. No biliary dilatation Spleen: Normal Adrenals: Normal. Pancreas: Normal. Right kidney and collecting system: No contour abnormality or focal renal lesion identified. No calculi, hydronephrosis or ureteral dilatation. Left kidney and collecting system: No contour abnormality or focal renal lesion identified. No calculi, hydronephrosis or ureteral dilatation. Free air or fluid: None. Mesenteric/retroperito shahram: No adenopathy or inflammation. Aorta: Normal caliber. Bowel: Scattered sigmoid colon diverticula without evidence of acute diverticulitis. Normal appendix. No inflammatory change or bowel dilatation is noted. Bladder: No calculi or filling defects. Urinary bladder is physiologically distended. Inguinal: No lymphadenopathy. Abdominal wall/soft tissues: No ventral hernia is evident. Osseous structures: No osseous abnormalities. IMPRESSION: 1. No evidence of an acute infectious or inflammatory process in the abdomen or pelvis. 2. Scattered sigmoid colon diverticula without evidence of acute diverticulitis. Report Dictated on --- Final --- Dictating Physician: MD VILLALOBOS JASON Signed Date and Time: 07/08/2021 12:01 pm Signed by: MD VILLALOBOS JASON Transcribed Date and Time: 07/08/2021 12:02 [facility] Work Phone: CT CHEST WO CONTRASTOrdered By: Michael Villalobos on 07-08-2021 [facility] Work Phone: CT Chest w/o Contraston 06-13 CT Chest w/o Contrast Patient Name: LUIS STEELE Computed Tomography ACCESSION EXAM DATE/TIME PROCEDURE ORDERING PROVIDER [id number] 07/08/2021 11:[address] Thorax w/o Contrast UNASSIGNED, UNASSIGNED CPT code 14196 Reason For Exam (CT Thorax w/o Contrast) unintentional weight loss Report CT CHEST WITHOUT CONTRAST: CLINICAL INDICATION: Weight loss. TECHNIQUE: 1 mm axial images without IV contrast. Coronal and sagittal reconstructions were provided. COMPARISON: CTA chest April 08, 2021. FINDINGS: Lungs: Partial right pneumonectomy. Severe emphysema. No focal opacification or consolidation. Areas of linear pleural-parenchymal scarring and architectural distortion are present in the left upper lobe. Bilateral lower lobe bronchiectasis with some mucus plugging. The central airways are otherwise patent. Scattered areas of nodular scarring in the lung bases. No dominant pulmonary nodule or mass lesion. Pleural fluid: None. Heart/Great vessels: Unremarkable. Mediastinum/Catherine/Axill a: No mass or lymphadenopathy is identified. Soft tissues chest wall: Unremarkable. Osseous structures: Normal osseous structures. IMPRESSION: Severe emphysema. No focal opacification or consolidation. Areas of linear pleural-parenchymal scarring and architectural distortion are present in the left upper lobe. Bilateral lower lobe bronchiectasis with some mucus plugging. CT ABDOMEN AND PELVIS WITHOUT IV CONTRAST CLINICAL INDICATION: Abdominal pain. TECHNIQUE: Multidetector axial CT images through the abdomen and pelvis were obtained without IV contrast. No oral contrast was administered. Images were reconstructed in sagittal and coronal planes. Computed Tomography Report COMPARISON: None. FINDINGS: This examination is limited for the evaluation of solid organs and vascular structures due to the lack of intravenous contrast. Stomach: Unremarkable. Liver: Normal size and contours. Normal hepatic parenchyma. No focal lesion. Biliary tree: Unremarkable gallbladder by CT. No biliary dilatation Spleen: Normal Adrenals: Normal. Pancreas: Normal. Right kidney and collecting system: No contour abnormality or focal renal lesion identified. No calculi, hydronephrosis or ureteral dilatation. Left kidney and collecting system: No contour abnormality or focal renal lesion identified. No calculi, hydronephrosis or ureteral dilatation. Free air or fluid: None. Mesenteric/retroperito shahram: No adenopathy or inflammation. Aorta: Normal caliber. Bowel: Scattered sigmoid colon diverticula without evidence of acute diverticulitis. Normal appendix. No inflammatory change or bowel dilatation is noted. Bladder: No calculi or filling defects. Urinary bladder is physiologically distended. Inguinal: No lymphadenopathy. Abdominal wall/soft tissues: No ventral hernia is evident. Osseous structures: No osseous abnormalities. IMPRESSION: 1. No evidence of an acute infectious or inflammatory process in the abdomen or pelvis. 2. Scattered sigmoid colon diverticula without evidence of acute diverticulitis. Report Dictated on Final Dictating Physician: MD VILLALOBOS JASON Signed Date and Time: 07/08/2021 12:01 pm Signed by: MD VILLALOBOS JASON Transcribed Date and Time: 07/08/2021 12:02 Normal [facility] ESOPHAGRAMon 07-08-2021 Patient Name: LUIS STEELE Fluoroscopy ACCESSION EXAM DATE/TIME PROCEDURE ORDERING PROVIDER [id number] 07/08/2021 11:30 EDT RF Esophagus UNASSIGNED, UNASSIGNED CPT code 38879 Reason For Exam (RF Esophagus) incomplete esophagogram due to aspiration, now improved. Report BARIUM SWALLOW( ESOPHAGUS ) CLINICAL INDICATION:50-year-old male: Incomplete esophagram due to aspiration. COMPARISON: RF cookie swallow 07/02/2021, CT chest without contrast 07/08/2021.. FLUOROSCOPY TIME: 0.44minutes FLUOROSCOPIC EXPOSURES: 10 TECHNIQUE: Biphasic exam was performed with barium and air. FINDINGS: Barium was administered in the upright as well as the horizontal position. The swallowing mechanism is grossly unremarkable. The esophagus is normal in course and caliber. Small right-sided pharyngocele. Small hiatal hernia. No free gastroesophageal reflux occurred at this time. There is redirection with mild stasis of barium contents with decrease peristalsis, which may suggest an element of dysmotility. No ulcer, stricture or neoplastic lesion is seen. A 13 mm barium tablet was given and traversed the esophagus without difficulty. IMPRESSION: 1. Small hiatal hernia. 2. Small right-sided pharyngocele. 3. Redirection with mild stasis of barium contents and decreased peristalsis consistent with dysmotility. Report Dictated on --- Final --- Dictating Physician: MD VO JOE M Signed Date and Time: 07/08/2021 2:35 pm Signed by: MD VO JOE M Transcribed Date and Time: 07/08/2021 2:36 [facility] Juan Vo MD - 07/08/2021 Patient Name: LUIS STEELE Fluoroscopy ACCESSION EXAM DATE/TIME PROCEDURE ORDERING PROVIDER [id number] 07/08/2021 11:30 EDT RF Esophagus UNASSIGNED, UNASSIGNED CPT code 80489 Reason For Exam (RF Esophagus) incomplete esophagogram due to aspiration, now improved. Report BARIUM SWALLOW( ESOPHAGUS ) CLINICAL INDICATION:50-year-old male: Incomplete esophagram due to aspiration. COMPARISON: RF cookie swallow 07/02/2021, CT chest without contrast 07/08/2021.. FLUOROSCOPY TIME: 0.44minutes FLUOROSCOPIC EXPOSURES: 10 TECHNIQUE: Biphasic exam was performed with barium and air. FINDINGS: Barium was administered in the upright as well as the horizontal position. The swallowing mechanism is grossly unremarkable. The esophagus is normal in course and caliber. Small right-sided pharyngocele. Small hiatal hernia. No free gastroesophageal reflux occurred at this time. There is redirection with mild stasis of barium contents with decrease peristalsis, which may suggest an element of dysmotility. No ulcer, stricture or neoplastic lesion is seen. A 13 mm barium tablet was given and traversed the esophagus without difficulty. IMPRESSION: 1. Small hiatal hernia. 2. Small right-sided pharyngocele. 3. Redirection with mild stasis of barium contents and decreased peristalsis consistent with dysmotility. Report Dictated on --- Final --- Dictating Physician: MD VO JOE M Signed Date and Time: 07/08/2021 2:35 pm Signed by: MD VO JOE M Transcribed Date and Time: 07/08/2021 2:36 [facility] Work Phone: [place] ESOPHAGRAMOrdered By: Juan Vo on 07-08-2021 [facility] Work Phone: Hemogram w/ [employer] 07-08 Abs Baso Cnt 0.0 10*3/uL Normal 0.0-0.2 [facility] Comment on above: Performed By: #### H EMDF, BMP3M #### [facility] [address] [place] [address] Abs Neutrophile Cnt 7.1 10*3/uL High 1.8-7.0 [facility] Comment on above: Performed By: #### H EMDF, BMP3M #### [facility] [address] [place] [address] Erythrocyte distribution width (RBC) [Ratio] 14.2 % Normal 11.5-14.5 [facility] Comment on above: Performed By: #### H EMDF, BMP3M #### [facility] [address] [place] [address] Hemoglobin (Bld) [Mass/Vol] 12.5 g/dL Low 13.0-18.0 [facility] Comment on above: Performed By: #### H EMDF, BMP3M #### [facility] [address] [place] [address] MCHC 33.0 % Normal 32.0-36.0 [facility] Comment on above: Performed By: #### H EMDF, BMP3M #### [facility] [address] [place] [address] Basophils/100 WBC (Bld) 0.2 % Normal 0.0-2.0 [facility] Comment on above: Performed By: #### H EMDF, BMP3M #### [facility] [address] [place] [address] Eosinophils (Bld) [#/Vol] 0.6 10*3/uL High 0.0-0.5 [facility] Comment on above: Performed By: #### H EMDF, BMP3M #### [facility] [address] [place] [address] Eosinophils/100 WBC (Bld) 5.9 % Normal 1.0-6.0 [facility] Comment on above: Performed By: #### H EMDF, BMP3M #### [facility] [address] [place] [address] Granulocytes/100 WBC (Bld) 67.1 % Normal 40.0-80.0 [facility] Comment on above: Performed By: #### H EMDF, BMP3M #### [facility] [address] [place] [address] Hematocrit (Bld) [Volume fraction] 37.9 % Low 40.0-52.0 [facility] Comment on above: Performed By: #### H EMDF, BMP3M #### [facility] [address] [place] [address] Lymphocytes (Bld) [#/Vol] 1.6 10*3/uL Normal 1.0-4.3 [facility] Comment on above: Performed By: #### H EMDF, BMP3M #### [facility] [address] [place] [address] Lymphocytes/100 WBC (Bld) 15.2 % Low 20.0-40.0 [facility] Comment on above: Performed By: #### H EMDF, BMP3M #### [facility] [address] [place] [address] MCH (RBC) [Entitic mass] 29.2 pg Normal 26.0-34.0 [facility] Comment on above: Performed By: #### H EMDF, BMP3M #### [facility] [address] [place] [address] MCV (RBC) [Entitic vol] 88.7 fL Normal 80.0-98.0 [facility] Comment on above: Performed By: #### H EMDF, BMP3M #### [facility] [address] [place] [address] Monocytes (Bld) [#/Vol] 1.2 10*3/uL High 0.0-0.8 [facility] Comment on above: Performed By: #### H EMDJamee, BMP3M #### [facility] [address] [place] [address] Monocytes/100 WBC (Bld) 11.6 % High 2.0-10.0 [facility] Comment on above: Performed By: #### H EMDF BMP3M #### [facility] [employer] [facility] [address] [place] [address] Platelet mean volume (Bld) [Entitic vol] 7.5 fL Normal 7.4-12.4 [facility] Comment on above: MPV is a calculated measurement using platelet volume ratio. Result Comment: MPV is a calculated measurement using platelet volume ratio. Performed By: #### H EMDJamee BMP3M #### [facility] [employer] [facility] [address] [place] [address] Platelets (Bld) [#/Vol] 313 10*3/uL Normal 140-440 [facility] Comment on above: Performed By: #### H EMDJamee BMP3M #### [facility] [employer] [facility] [address] [place] [address] RBC (Bld) [#/Vol] 4.27 10*6/uL Low 4.40-5.90 [facility] Comment on above: Performed By: #### H EMDF, BMP3M #### [facility] [employer] [facility] [address] [place] [address] WBC (Bld) [#/Vol] 10.5 10*3/uL Normal 3.6-10.7 [facility] Comment on above: Performed By: #### H EMDF BMP3M #### [facility] [employer] [facility] [address] [place] [address] METHYLMALONIC ACID, SERUMon 07-08-2021 [facility] MRI BRAIN WO CONTRASTon 06-13 Patient Name: LUIS STEELE Magnetic Resonance Imaging ACCESSION EXAM DATE/TIME PROCEDURE ORDERING PROVIDER [id number] 07/08/2021 18:05 EDT MRI Brain w/o Contrast UNASSIGNED, UNASSIGNED CPT code 27218 Reason For Exam (MRI Brain w/o Contrast) r/o CVA, new dysphagia / aspiration history of TIA Report MRI OF THE BRAIN WITHOUT GADOLINIUM CLINICAL INDICATION: r/o CVA, new dysphagia / aspiration history of TIA TECHNIQUE: Routine MRI of the brain without gadolinium. COMPARISON: None FINDINGS: Mucosal thickening left maxillary sinus. Major intracranial flow voids are visualized. Ventricular system is normal for age. No pathologic extra-axial fluid collection identified. No hemorrhage, mass effect, or midline shift. Basal cisterns are not effaced. No evidence of acute infarct on diffusion-weighted imaging. Brain volume is normal for age. IMPRESSION: 1. No acute intracranial finding. Mucosal thickening left maxillary sinus. Report Dictated on Workstation: PB --- Final --- Dictating Physician: MD HUSAIN JOHN R Signed Date and Time: 07/08/2021 7:25 pm Signed by: MD HUSAIN JOHN R Transcribed Date and Time: 07/08/2021 7:26 [facility] Gerald Husain MD - 07/08/2021 [id number] ACCESSION EXAM DATE/TIME PROCEDURE ORDERING PROVIDER [id number] 07/08/2021 18:05 EDT MRI Brain w/o Contrast UNASSIGNED, UNASSIGNED CPT code 19527 Reason For Exam (MRI Brain w/o Contrast) r/o CVA, new dysphagia / aspiration history of TIA Report MRI OF THE BRAIN WITHOUT GADOLINIUM CLINICAL INDICATION: r/o CVA, new dysphagia / aspiration history of TIA TECHNIQUE: Routine MRI of the brain without gadolinium. COMPARISON: None FINDINGS: Mucosal thickening left maxillary sinus. Major intracranial flow voids are visualized. Ventricular system is normal for age. No pathologic extra-axial fluid collection identified. No hemorrhage, mass effect, or midline shift. Basal cisterns are not effaced. No evidence of acute infarct on diffusion-weighted imaging. Brain volume is normal for age. IMPRESSION: 1. No acute intracranial finding. Mucosal thickening left maxillary sinus. Report Dictated on Workstation: PB --- Final --- Dictating Physician: MD HUSAIN JOHN R Signed Date and Time: 07/08/2021 7:25 pm Signed by: MD HUSAIN JOHN R Transcribed Date and Time: 07/08/2021 7:26 [facility] Work Phone: MRI BRAIN WO CONTRASTOrdered By: Gerald Husain on 07-08-2021 [facility] Work Phone: MRI Brain w/o Contraston MRI Brain w/o Contrast [facility]: [id number] Magnetic Resonance Imaging ACCESSION EXAM DATE/TIME PROCEDURE ORDERING PROVIDER [id number] 07/08/2021 18:05 EDT MRI Brain w/o Contrast UNASSIGNED, UNASSIGNED CPT code 37960 Reason For Exam (MRI Brain w/o Contrast) r/o CVA, new dysphagia / aspiration history of TIA Report MRI OF THE BRAIN WITHOUT GADOLINIUM CLINICAL INDICATION: r/o CVA, new dysphagia / aspiration history of TIA TECHNIQUE: Routine MRI of the brain without gadolinium. COMPARISON: None FINDINGS: Mucosal thickening left maxillary sinus. Major intracranial flow voids are visualized. Ventricular system is normal for age. No pathologic extra-axial fluid collection identified. No hemorrhage, mass effect, or midline shift. Basal cisterns are not effaced. No evidence of acute infarct on diffusion-weighted imaging. Brain volume is normal for age. IMPRESSION: 1. No acute intracranial finding. Mucosal thickening left maxillary sinus. Report Dictated on Workstation: PB Final Dictating Physician: MD HUSAIN JOHN R Signed Date and Time: 07/08/2021 7:25 pm Signed by: MD HUSAIN JOHN R Transcribed Date and Time: 07/08/2021 7:26 Normal [facility] Methylmalonic Acidon 022 Methylmalonic Acid 0.26 umol/L Normal 0.00-0.40 [facility] Comment on above: INTERPRETIVE INFORMA TION: MMA Serum/Plasma, Vitamin B12 Status This test was developed and its performance characteristics determined by [facility]. It has not been cleared or approved by the [place] Food and Drug Administration. This test was performed in a CLIA certified laboratory and is intended for clinical purposes. Performed By: [facility] [address] [place] [address] Front Services Agent: Riana Crowley MD Result Comment: INTE RPRETIVE INFORMATION: MMA Serum/Plasma, Vitamin B12 Status This test was developed and its performance characteristics determined by [facility]. It has not been cleared or approved by the [place] Food and Drug Administration. This test was performed in a CLIA certified laboratory and is intended for clinical purposes. Performed By: [facility] [address] [place] [address] Front Services Agent: Riana Crowley MD Performed By: #### H OMCY, FOLT3, HEMDF, BMP3M #### [facility] [employer] [facility] [address] [place] [address] #### MMA2 #### The performing lab is in the report. No Panel Informationon 07-08 Radiology Study observation (narrative) [facility] Work Phone: Radiology Study observation (narrative) [facility] Work Phone: RF Esophaguson 07-08-2021 RF Esophagus Patient Name: LUIS STEELE Fluoroscopy ACCESSION EXAM DATE/TIME PROCEDURE ORDERING PROVIDER [id number] 07/08/2021 11:30 EDT RF Esophagus UNASSIGNED, UNASSIGNED CPT code 83313 Reason For Exam (RF Esophagus) incomplete esophagogram due to aspiration, now improved. Report BARIUM SWALLOW( ESOPHAGUS ) CLINICAL INDICATION:50-year-old male: Incomplete esophagram due to aspiration. COMPARISON: RF cookie swallow 07/02/2021, CT chest without contrast 07/08/2021.. FLUOROSCOPY TIME: 0.44minutes FLUOROSCOPIC EXPOSURES: 10 TECHNIQUE: Biphasic exam was performed with barium and air. FINDINGS: Barium was administered in the upright as well as the horizontal position. The swallowing mechanism is grossly unremarkable. The esophagus is normal in course and caliber. Small right-sided pharyngocele. Small hiatal hernia. No free gastroesophageal reflux occurred at this time. There is redirection with mild stasis of barium contents with decrease peristalsis, which may suggest an element of dysmotility. No ulcer, stricture or neoplastic lesion is seen. A 13 mm barium tablet was given and traversed the esophagus without difficulty. IMPRESSION: 1. Small hiatal hernia. 2. Small right-sided pharyngocele. 3. Redirection with mild stasis of barium contents and decreased peristalsis consistent with dysmotility. Report Dictated on Final Dictating Physician: MD VO JOE M Signed Date and Time: 07/08/2021 2:35 pm Signed by: MD VO JOE M Transcribed Date and Time: 07/08/2021 2:36 Normal [facility] XR CHEST PORTABLEon 07-09-19 Patient Name: LUIS STEELE Diagnostic Radiology ACCESSION EXAM DATE/TIME PROCEDURE ORDERING PROVIDER [id number] 07/08/2021 10:10 EDT CR Chest Portable UNASSIGNED, UNASSIGNED CPT code 55718 Reason For Exam (CR Chest Portable) aspiration Report CHEST X-RAY AP CLINICAL INDICATION: Shortness of breath AP radiograph of the chest was obtained. COMPARISON: July 01, 2021 FINDINGS: The cardiac silhouette is within normal limits. The lungs are hyperinflated. Coarsening of the interstitial lung markings is noted. Atelectasis and/or scarring in the lung bases, similar to the prior exam. Otherwise no new consolidation or opacification is seen within the lungs. No pleural effusion or pneumothorax is identified. There are degenerative changes of the thoracic spine. IMPRESSION: 1. No acute cardiopulmonary process. 2. Hyperinflation of the lungs with coarsening of the interstitial lung markings, suggestive of a component of obstructive lung disease. No focal consolidation is identified. Report Dictated on --- Final --- Dictating Physician: MD VILLALOBOS JASON Signed Date and Time: 07/08/2021 10:18 am Signed by: MD VILLALOBOS JASON Transcribed Date and Time: 07/08/2021 10:19 [facility] Michael Villalobos MD - 07/08/2021 Patient Name: LUIS STEELE Diagnostic Radiology ACCESSION EXAM DATE/TIME PROCEDURE ORDERING PROVIDER [id number] 07/08/2021 10:10 EDT CR Chest Portable UNASSIGNED, UNASSIGNED CPT code 90623 Reason For Exam (CR Chest Portable) aspiration Report CHEST X-RAY AP CLINICAL INDICATION: Shortness of breath AP radiograph of the chest was obtained. COMPARISON: July 01, 2021 FINDINGS: The cardiac silhouette is within normal limits. The lungs are hyperinflated. Coarsening of the interstitial lung markings is noted. Atelectasis and/or scarring in the lung bases, similar to the prior exam. Otherwise no new consolidation or opacification is seen within the lungs. No pleural effusion or pneumothorax is identified. There are degenerative changes of the thoracic spine. IMPRESSION: 1. No acute cardiopulmonary process. 2. Hyperinflation of the lungs with coarsening of the interstitial lung markings, suggestive of a component of obstructive lung disease. No focal consolidation is identified. Report Dictated on --- Final --- Dictating Physician: MD VILLALOBOS JASON Signed Date and Time: 07/08/2021 10:18 am Signed by: MD VILLALOBOS JASON Transcribed Date and Time: 07/08/2021 10:19 [facility] Work Phone: [facility] Work Phone: Basic Metabolic Panelon - Anion gap [Moles/Vol] 5 mmol/L Normal 3-13 [facility] Comment on above: Performed By: #### H OMCY, FOLT3, HEMDF, BMP3M #### [facility] [address] [place] [address] #### MMA2 #### The performing lab is in the report. Calcium [Mass/Vol] 7.3 mg/dL Low 8.4-10.4 [facility] Comment on above: Performed By: #### H OMCY, FOLT3, HEMDF, BMP3M #### [facility] [address] [place] [address] #### MMA2 #### The performing lab is in the report. CO2 [Moles/Vol] 23 mmol/L Normal 22-30 [facility] Comment on above: Performed By: #### H OMCY, FOLT3, HEMDF, BMP3M #### [facility] [address] [place] [address] #### MMA2 #### The performing lab is in the report. Creatinine [Mass/Vol] 0.66 mg/dL Normal 0.52-1.25 [facility] Comment on above: Performed By: #### H OMCY, FOLT3, HEMDF, BMP3M #### [facility] [address] [place] [address] #### MMA2 #### The performing lab is in the report. eGFR OTHER > 90.0 Normal >60 [facility] Comment on above: Result Comment: KDIG O guidelines provide the following GFR categories: Stage GFR(ml/min/1.73 m2) Terms G1 >=90 Normal or high G2 60-89 Mildly decreased* G3a 45-59 Mildly to moderately decreased G3b 30-44 Moderately to severely decreased G4 15-29 Severely decreased G5 <15 Kidney failure *Relative to young adult level. In the absence of evidence of kidney damage, neither GFR category G1 nor G2 fulfill the criteria for CKD. The CKD-EPI equation is validated in individuals 18 years of age and older. Currently the best equation for estimating glomerular filtration rate (GFR) from serum creatinine in children is the Bedside Balbuena equation. It is less accurate in patients with extremes of muscle mass, restriction of dietary protein, ingestion of creatine, extra-renal metabolism of creatinine, or treatment with medications that affect renal tubular creatinine secretion. Performed By: #### H OMCY, FOLT3, HEMDF, BMP3M #### [facility] [address] [place] [address] #### MMA2 #### The performing lab is in the report. GFR/1.73 sq M.predicted among blacks MDRD (S/P/Bld) [Vol rate/Area] mL/min/{1.73_m2} Normal >60 [facility] Comment on above: Performed By: #### H OMCY, FOLT3, HEMDF, BMP3M #### [facility] [address] [place] [address] #### MMA2 #### The performing lab is in the report. Glucose [Mass/Vol] 87 mg/dL Normal 70-100 [facility] Comment on above: Performed By: #### H OMCY, FOLT3, HEMDF, BMP3M #### [facility] [address] [place] [address] #### MMA2 #### The performing lab is in the report. Urea nitrogen [Mass/Vol] 14 mg/dL Normal 7-17 [facility] Comment on above: Performed By: #### H OMCY, FOLT3, HEMDF, BMP3M #### [facility] [address] [place] [address] #### MMA2 #### The performing lab is in the report. Chloride [Moles/Vol] 108 mmol/L High 98-107 [facility] Comment on above: Performed By: #### H OMCY, FOLT3, HEMDF, BMP3M #### [facility] [address] [place] [address] #### MMA2 #### The performing lab is in the report. Potassium [Moles/Vol] 3.2 mmol/L Low 3.5-5.1 [facility] Comment on above: Performed By: #### H OMCY, FOLT3, HEMDF, BMP3M #### [facility] [address] [place] [address] #### MMA2 #### The performing lab is in the report. Sodium [Moles/Vol] 136 mmol/L Normal 135-145 [facility] Comment on above: Performed By: #### H OMCY, FOLT3, HEMDF, BMP3M #### [facility] [address] [place] [address] #### MMA2 #### The performing lab is in the report. Basic Metabolic Panel w/ Ref cherie to MGon 07-07-2021 Anion gap [Moles/Vol] 5 mmol/L 3 - 13 mmol/L [facility] Calcium [Mass/Vol] 7.3 mg/dL Low 8.4 - 10. 4 mg/dL [facility] Chloride [Moles/Vol] 108 mmol/L High 98 - 10 7 mmol/L [facility] CO2 [Moles/Vol] 23 mmol/L 22 - 30 mmol/L [facility] Creatinine [Mass/Vol] 0.66 mg/dL 0.52 - 1.25 mg/dL [facility] EGFR IF NonAfrican Citizen Of [place] >90.0 >60 mL/min [facility] Comment on above: KDIGO guidelines pro vide the following GFR categories: Stage GFR(ml/min/1.73 m2) Terms G1 >=90 Normal or high G2 60-89 Mildly decreased* G3a 45-59 Mildly to moderately decreased G3b 30-44 Moderately to severely decreased G4 15-29 Severely decreased G5 <15 Kidney failure *Relative to young adult level. In the absence of evidence of kidney damage, neither GFR category G1 nor G2 fulfill the criteria for CKD. The CKD-EPI equation is validated in individuals 18 years of age and older. Currently the best equation for estimating glomerular filtration rate (GFR) from serum creatinine in children is the Bedside Balbuena equation. It is less accurate in patients with extremes of muscle mass, restriction of dietary protein, ingestion of creatine, extra-renal metabolism of creatinine, or treatment with medications that affect renal tubular creatinine secretion. GFR/1.73 sq M.predicted among blacks MDRD (S/P/Bld) [Vol rate/Area] mL/min/{1.73_m2} >60 mL/min [facility] Glucose [Mass/Vol] 87 mg/dL 70 - 100 mg/dL [facility] Interpretation and review of laboratory results Abnormal [facility] Potassium [Moles/Vol] 3.2 mmol/L Low 3.5 - 5.1 mmol/L [facility] Sodium [Moles/Vol] 136 mmol/L 135 - 145 mmol/L [facility] Urea nitrogen (BldV) [Mass/Vol] 14 mg/dL 7 - 17 mg/dL [facility] Test Performed by [facility] [employer] [facility], [address] [place], [place] [address] [facility] CBC auto differentialon - Absolute Baso # 0.0 10*3/uL 0.0 - 0.2 10*3/uL [facility] Absolute Neut # 6.1 10*3/uL 1.8 - 7.0 10*3/uL [facility] Basophils/100 WBC (Bld) 0.2 % 0.0 - 2.0 % [facility] Eosinophils (Bld) [#/Vol] 0.5 10*3/uL 0.0 - 0.5 10*3/uL [facility] Eosinophils/100 WBC (Bld) 5.1 % 1.0 - 6.0 % [facility] Granulocytes/100 WBC (Bld) 65.0 % 40.0 - 80.0 % [facility] Hematocrit (Bld) [Volume fraction] 32.4 % Low 40.0 - 52.0 % [facility] Hemoglobin.gastrointe stinal spec 1 Ql (Stl) 10.6 g/dL Low 13.0 - 18.0 g/dL [facility] Interpretation and review of laboratory results Abnormal [facility] Lymphocytes (Bld) [#/Vol] 1.6 10*3/uL 1.0 - 4.3 10*3/uL [facility] Lymphocytes/100 WBC (Bld) 17.5 % Low 20.0 - 40.0 % [facility] MCH (RBC) [Entitic mass] 29.5 pg 26.0 - 34.0 pg [facility] MCHC (RBC) [Mass/Vol] 32.6 % 32.0 - 36.0 % [facility] MCV (RBC) [Entitic vol] 90.4 fL 80.0 - 98.0 fL [facility] Monocytes (Bld) [#/Vol] 1.1 10*3/uL High 0.0 - 0.8 10*3/uL [facility] Monocytes/100 WBC (Bld) 12.2 % High 2.0 - 10.0 % [facility] Platelet distribution width (Bld) [Ratio] 13.8 % 11.5 - 14.5 % [facility] Platelet mean volume (Bld) [Entitic vol] 7.5 fL 7.4 - 10.4 fL [facility] Platelets (Bld) [#/Vol] 239 10*3/uL 140 - 440 10*3/uL [facility] RBC (Bld) [#/Vol] 3.58 10*6/uL Low 4.40 - 5.9 0 10*6/uL [facility] WBC (Bld) [#/Vol] 9.3 10*3/uL 3.6 - 10.7 10*3/uL [facility] Test Performed by [facility], [address], [place], [place] [id number] [place] [address] [facility] Hemogram w/ Autodiffon 07-07 Abs Baso Cnt 0.0 10*3/uL Normal 0.0-0.2 [facility] Comment on above: Performed By: #### H OMCY, FOLT3, HEMDF, BMP3M #### [facility] [address] [place] [address] #### MMA2 #### The performing lab is in the report. Abs Neutrophile Cnt 6.1 10*3/uL Normal 1.8-7.0 [facility] Comment on above: Performed By: #### H OMCY, FOLT3, HEMDF, BMP3M #### [place] [address] [place] [address] #### MMA2 #### The performing lab is in the report. Basophils/100 WBC (Bld) 0.2 % Normal 0.0-2.0 [facility] Comment on above: Performed By: #### H OMCY, FOLT3, HEMDF, BMP3M #### [place] [address] [place] [address] #### MMA2 #### The performing lab is in the report. Eosinophils (Bld) [#/Vol] 0.5 10*3/uL Normal 0.0-0.5 [facility] Comment on above: Performed By: #### H OMCY, FOLT3, HEMDF, BMP3M #### [place] [address] [place] [address] #### MMA2 #### The performing lab is in the report. Eosinophils/100 WBC (Bld) 5.1 % Normal 1.0-6.0 [facility] Comment on above: Performed By: #### H OMCY, FOLT3, HEMDF, BMP3M #### [place] [address] [place] [address] #### MMA2 #### The performing lab is in the report. Erythrocyte distribution width (RBC) [Ratio] 13.8 % Normal 11.5-14.5 [facility] Comment on above: Performed By: #### H OMCY, FOLT3, HEMDF, BMP3M #### [place] [address] [place] [place] [address] #### MMA2 #### The performing lab is in the report. Granulocytes/100 WBC (Bld) 65.0 % Normal 40.0-80.0 [facility] Comment on above: Performed By: #### H OMCY, FOLT3, HEMDF, BMP3M #### [facility] [address] [place] [address] #### MMA2 #### The performing lab is in the report. Hematocrit (Bld) [Volume fraction] 32.4 % Low 40.0-52.0 [facility] Comment on above: Performed By: #### H OMCY, FOLT3, HEMDF, BMP3M #### [address] [facility] [place] [address] #### MMA2 #### The performing lab is in the report. Hemoglobin (Bld) [Mass/Vol] 10.6 g/dL Low 13.0-18.0 [facility] Comment on above: Performed By: #### H OMCY, FOLT3, HEMDF, BMP3M #### [address] [place] [address] #### MMA2 #### The performing lab is in the report. Lymphocytes (Bld) [#/Vol] 1.6 10*3/uL Normal 1.0-4.3 [facility] Comment on above: Performed By: #### H OMCY, FOLT3, HEMDF, BMP3M #### [address] [place] [address] #### MMA2 #### The performing lab is in the report. Lymphocytes/100 WBC (Bld) 17.5 % Low 20.0-40.0 [facility] Comment on above: Performed By: #### H OMCY, FOLT3, HEMDF, BMP3M #### [facility] [address] [facility] [place] [address] #### MMA2 #### The performing lab is in the report. MCH (RBC) [Entitic mass] 29.5 pg Normal 26.0-34.0 [facility] Comment on above: Performed By: #### H OMCY, FOLT3, HEMDF, BMP3M #### [facility] [address] [place] [address] #### MMA2 #### The performing lab is in the report. MCHC 32.6 % Normal 32.0-36.0 [facility] Comment on above: Performed By: #### H OMCY, FOLT3, HEMDF, BMP3M #### [facility] [address] [place] [address] #### MMA2 #### The performing lab is in the report. MCV (RBC) [Entitic vol] 90.4 fL Normal 80.0-98.0 [facility] Comment on above: Performed By: #### H OMCY, FOLT3, HEMDF, BMP3M #### [facility] [address] [place] [address] #### MMA2 #### The performing lab is in the report. Monocytes (Bld) [#/Vol] 1.1 10*3/uL High 0.0-0.8 [facility] Comment on above: Performed By: #### H OMCY, FOLT3, HEMDF, BMP3M #### [facility] [address] [place] [address] #### MMA2 #### The performing lab is in the report. Monocytes/100 WBC (Bld) 12.2 % High 2.0-10.0 [facility] Comment on above: Performed By: #### H OMCY, FOLT3, HEMDF, BMP3M #### [facility] [address] [place] [address] #### MMA2 #### The performing lab is in the report. Platelet mean volume (Bld) [Entitic vol] 7.5 fL Normal 7.4-10.4 [facility] Comment on above: Performed By: #### H OMCY, FOLT3, HEMDF, BMP3M #### [facility] [address] [place] [address] #### MMA2 #### The performing lab is in the report. Platelets (Bld) [#/Vol] 239 10*3/uL Normal 140-440 [facility] Comment on above: Performed By: #### H OMCY, FOLT3, HEMDF, BMP3M #### [facility] [address] [place] [address] #### MMA2 #### The performing lab is in the report. RBC (Bld) [#/Vol] 3.58 10*6/uL Low 4.40-5.90 [facility] Comment on above: Performed By: #### H OMCY, FOLT3, HEMDF, BMP3M #### [facility] [address] [place] [address] #### MMA2 #### The performing lab is in the report. WBC (Bld) [#/Vol] 9.3 10*3/uL Normal 3.6-10.7 [facility] Comment on above: Performed By: #### H OMCY, FOLT3, HEMDF, BMP3M #### [facility] [address] [place] [address] #### MMA2 #### The performing lab is in the report. Magnesiumon 07-07-2021 Magnesium [Mass/Vol] 1.6 mg/dL Normal 1.6-2.3 [facility] Comment on above: Performed By: #### H OMCY, FOLT3, HEMDF, BMP3M #### [facility] [address] [place] [address] #### MMA2 #### The performing lab is in the report. Magnesium [Mass/Vol] 1.6 mg/dL 1.6 - 2 .3 mg/dL [facility] Test Performed by [facility], [address] [place] [address] [facility] Basic Metabolic Panelon 06-13 Calcium [Mass/Vol] 9.0 mg/dL Normal 8.4-10.4 [facility] Comment on above: Performed By: #### H OMCY, FOLT3, HEMDF, BMP3M #### [facility] [address] [place] [address] #### MMA2 #### The performing lab is in the report. Glucose [Mass/Vol] 108 mg/dL High 70-100 [facility] Comment on above: Performed By: #### H OMCY, FOLT3, HEMDF, BMP3M #### [facility] [address] [place] [address] #### MMA2 #### The performing lab is in the report. Anion gap [Moles/Vol] 4 mmol/L Normal 3-13 [facility] Comment on above: Performed By: #### H OMCY, FOLT3, HEMDF, BMP3M #### [facility] [address] [place] [address] #### MMA2 #### The performing lab is in the report. CO2 [Moles/Vol] 34 mmol/L High 22-30 [facility] Comment on above: Performed By: #### H OMCY, FOLT3, HEMDF, BMP3M #### [facility] [address] [place] [address] #### MMA2 #### The performing lab is in the report. Creatinine [Mass/Vol] 0.81 mg/dL Normal 0.52-1.25 [facility] Comment on above: Performed By: #### H OMCY, FOLT3, HEMDF, BMP3M #### [facility] [address] [place] [address] #### MMA2 #### The performing lab is in the report. eGFR OTHER > 90.0 Normal >60 [facility] Comment on above: Result Comment: KDIG O guidelines provide the following GFR categories: Stage GFR(ml/min/1.73 m2) Terms G1 >=90 Normal or high G2 60-89 Mildly decreased* G3a 45-59 Mildly to moderately decreased G3b 30-44 Moderately to severely decreased G4 15-29 Severely decreased G5 <15 Kidney failure *Relative to young adult level. In the absence of evidence of kidney damage, neither GFR category G1 nor G2 fulfill the criteria for CKD. The CKD-EPI equation is validated in individuals 18 years of age and older. Currently the best equation for estimating glomerular filtration rate (GFR) from serum creatinine in children is the Bedside Balbuena equation. It is less accurate in patients with extremes of muscle mass, restriction of dietary protein, ingestion of creatine, extra-renal metabolism of creatinine, or treatment with medications that affect renal tubular creatinine secretion. Performed By: #### H OMCY, FOLT3, HEMDF, BMP3M #### [facility] [address] [place] [address] #### MMA2 #### The performing lab is in the report. GFR/1.73 sq M.predicted among blacks MDRD (S/P/Bld) [Vol rate/Area] mL/min/{1.73_m2} Normal >60 [facility] Comment on above: Performed By: #### H OMCY, FOLT3, HEMDF, BMP3M #### [facility] [address] [place] [address] #### MMA2 #### The performing lab is in the report. Urea nitrogen [Mass/Vol] 14 mg/dL Normal 7-17 [facility] Comment on above: Performed By: #### H OMCY, FOLT3, HEMDF, BMP3M #### [facility] [address] [place] [address] #### MMA2 #### The performing lab is in the report. Chloride [Moles/Vol] 100 mmol/L Normal 98-107 [facility] Comment on above: Performed By: #### H OMCY, FOLT3, HEMDF, BMP3M #### [facility] [address] [place] [address] #### MMA2 #### The performing lab is in the report. Potassium [Moles/Vol] 4.0 mmol/L Normal 3.5-5.1 [facility] Comment on above: Performed By: #### H OMCY, FOLT3, HEMDF, BMP3M #### [facility] [address] [place] [address] #### MMA2 #### The performing lab is in the report. Sodium [Moles/Vol] 137 mmol/L Normal 135-145 [facility] Comment on above: Performed By: #### H OMCY, FOLT3, HEMDF, BMP3M #### [facility] [address] [place] [address] #### MMA2 #### The performing lab is in the report. Basic Metabolic Panel w/ Ref cherie to MGon 07-06-2021 Anion gap [Moles/Vol] 4 mmol/L 3 - 13 mmol/L [facility] Calcium [Mass/Vol] 9.0 mg/dL 8.4 - 10. 4 mg/dL [facility] Chloride [Moles/Vol] 100 mmol/L 98 - 10 7 mmol/L [facility] CO2 [Moles/Vol] 34 mmol/L High 22 - 30 mmol/L [facility] Creatinine [Mass/Vol] 0.81 mg/dL 0.52 - 1.25 mg/dL [facility] EGFR IF NonAfrican Citizen Of [place] >90.0 >60 mL/min [facility] Comment on above: KDIGO guidelines pro vide the following GFR categories: Stage GFR(ml/min/1.73 m2) Terms G1 >=90 Normal or high G2 60-89 Mildly decreased* G3a 45-59 Mildly to moderately decreased G3b 30-44 Moderately to severely decreased G4 15-29 Severely decreased G5 <15 Kidney failure *Relative to young adult level. In the absence of evidence of kidney damage, neither GFR category G1 nor G2 fulfill the criteria for CKD. The CKD-EPI equation is validated in individuals 18 years of age and older. Currently the best equation for estimating glomerular filtration rate (GFR) from serum creatinine in children is the Bedside Balbuena equation. It is less accurate in patients with extremes of muscle mass, restriction of dietary protein, ingestion of creatine, extra-renal metabolism of creatinine, or treatment with medications that affect renal tubular creatinine secretion. GFR/1.73 sq M.predicted among blacks MDRD (S/P/Bld) [Vol rate/Area] mL/min/{1.73_m2} >60 mL/min [facility] Glucose [Mass/Vol] 108 mg/dL High 70 - 100 mg/dL [facility] Interpretation and review of laboratory results Abnormal [facility] Potassium [Moles/Vol] 4.0 mmol/L 3.5 - 5.1 mmol/L [facility] Sodium [Moles/Vol] 137 mmol/L 135 - 145 mmol/L [facility] Urea nitrogen (BldV) [Mass/Vol] 14 mg/dL 7 - 17 mg/dL [facility] Test Performed by [facility], [address] [place], [place] [address] [facility] CBC auto differentialon 06-13 Absolute Baso # 0.0 10*3/uL 0.0 - 0.2 10*3/uL [facility] Absolute Neut # 6.8 10*3/uL 1.8 - 7.0 10*3/uL [facility] Basophils/100 WBC (Bld) 0.3 % 0.0 - 2.0 % [facility] Eosinophils (Bld) [#/Vol] 0.5 10*3/uL 0.0 - 0.5 10*3/uL [facility] Eosinophils/100 WBC (Bld) 5.2 % 1.0 - 6.0 % [facility] Granulocytes/100 WBC (Bld) 64.8 % 40.0 - 80.0 % [facility] Hematocrit (Bld) [Volume fraction] 37.9 % Low 40.0 - 52.0 % [facility] Hemoglobin.gastrointe stinal spec 1 Ql (Stl) 12.4 g/dL Low 13.0 - 18.0 g/dL [facility] Interpretation and review of laboratory results Abnormal [facility] Lymphocytes (Bld) [#/Vol] 1.9 10*3/uL 1.0 - 4.3 10*3/uL [facility] Lymphocytes/100 WBC (Bld) 17.9 % Low 20.0 - 40.0 % [facility] MCH (RBC) [Entitic mass] 29.1 pg 26.0 - 34.0 pg [facility] MCHC (RBC) [Mass/Vol] 32.9 % 32.0 - 36.0 % [facility] MCV (RBC) [Entitic vol] 88.5 fL 80.0 - 98.0 fL [facility] Monocytes (Bld) [#/Vol] 1.2 10*3/uL High 0.0 - 0.8 10*3/uL [facility] Monocytes/100 WBC (Bld) 11.8 % High 2.0 - 10.0 % [facility] Platelet distribution width (Bld) [Ratio] 14.2 % 11.5 - 14.5 % [facility] Platelet mean volume (Bld) [Entitic vol] 7.8 fL 7.4 - 10.4 fL [facility] Platelets (Bld) [#/Vol] 314 10*3/uL 140 - 440 10*3/uL [facility] RBC (Bld) [#/Vol] 4.28 10*6/uL Low 4.40 - 5.9 0 10*6/uL [facility] WBC (Bld) [#/Vol] 10.5 10*3/uL 3.6 - 10.7 10*3/uL [facility] Test Performed by [facility], [address] [place], [place] [id number] [place] [address] LAB [facility] CULTURE BLOODon 07-06-2021 Microscopic examination of blood, culture CULTURE BLOOD --> Status: F No growth at 5 days. Normal [facility] Comment on above: Performed By: #### H EMDF, BMP3M #### [facility] [address] [place] [address] CULTURE BLOOD (Two)on 2021 Microscopic examination of blood, culture CULTURE BLOOD (Two) --> Status: F No growth at 5 days. Normal [facility] Comment on above: Performed By: #### H EMDF, BMP3M #### [facility] [address] [place] [address] Gram Stainon 07-06-2021 Gram Stain Result Many polymorphonucle ar cells/lpf. Few epithelial cells/lpf. Many gram negative bacilli. Few gram positive cocci in clusters. Few gram positive bacilli. [facility] Test Performed by [facility], [address] [place] [id number] [place] [address] LAB [facility] w/ Autodiffon 07-06 Abs Baso Cnt 0.0 10*3/uL Normal 0.0-0.2 [facility] Comment on above: Performed By: #### H OMCY, FOLT3, HEMDF, BMP3M #### [facility] [address] [place] [address] #### MMA2 #### The performing lab is in the report. Abs Neutrophile Cnt 6.8 10*3/uL Normal 1.8-7.0 [facility] Comment on above: Performed By: #### H OMCY, FOLT3, HEMDF, BMP3M #### [facility] [address] [place] [address] #### MMA2 #### The performing lab is in the report. Basophils/100 WBC (Bld) 0.3 % Normal 0.0-2.0 [facility] Comment on above: Performed By: #### H OMCY, FOLT3, HEMDF, BMP3M #### [facility] [address] [place] [address] #### MMA2 #### The performing lab is in the report. Eosinophils (Bld) [#/Vol] 0.5 10*3/uL Normal 0.0-0.5 [facility] Comment on above: Performed By: #### H OMCY, FOLT3, HEMDF, BMP3M #### [facility] [address] [place] [address] #### MMA2 #### The performing lab is in the report. Eosinophils/100 WBC (Bld) 5.2 % Normal 1.0-6.0 [facility] Comment on above: Performed By: #### H OMCY, FOLT3, HEMDF, BMP3M #### [facility] [address] [place] [address] #### MMA2 #### The performing lab is in the report. Erythrocyte distribution width (RBC) [Ratio] 14.2 % Normal 11.5-14.5 [facility] Comment on above: Performed By: #### H OMCY, FOLT3, HEMDF, BMP3M #### [facility] [address] [place] [address] #### MMA2 #### The performing lab is in the report. Granulocytes/100 WBC (Bld) 64.8 % Normal 40.0-80.0 [facility] Comment on above: Performed By: #### H OMCY, FOLT3, HEMDF, BMP3M #### [facility] [address] [place] [address] #### MMA2 #### The performing lab is in the report. Hematocrit (Bld) [Volume fraction] 37.9 % Low 40.0-52.0 [facility] Comment on above: Performed By: #### H OMCY, FOLT3, HEMDF, BMP3M #### [facility] [address] [place] [address] #### MMA2 #### The performing lab is in the report. Hemoglobin (Bld) [Mass/Vol] 12.4 g/dL Low 13.0-18.0 [facility] Comment on above: Performed By: #### H OMCY, FOLT3, HEMDF, BMP3M #### [facility] [address] [place] [address] #### MMA2 #### The performing lab is in the report. Lymphocytes (Bld) [#/Vol] 1.9 10*3/uL Normal 1.0-4.3 [facility] Comment on above: Performed By: #### H OMCY, FOLT3, HEMDF, BMP3M #### [facility] [address] [place] [address] #### MMA2 #### The performing lab is in the report. Lymphocytes/100 WBC (Bld) 17.9 % Low 20.0-40.0 [facility] Comment on above: Performed By: #### H OMCY, FOLT3, HEMDF, BMP3M #### [facility] [address] [place] [address] #### MMA2 #### The performing lab is in the report. MCH (RBC) [Entitic mass] 29.1 pg Normal 26.0-34.0 [facility] Comment on above: Performed By: #### H OMCY, FOLT3, HEMDF, BMP3M #### [facility] [address] [place] [address] #### MMA2 #### The performing lab is in the report. MCHC 32.9 % Normal 32.0-36.0 [facility] Comment on above: Performed By: #### H OMCY, FOLT3, HEMDF, BMP3M #### [facility] [address] [place] [address] #### MMA2 #### The performing lab is in the report. MCV (RBC) [Entitic vol] 88.5 fL Normal 80.0-98.0 [facility] Comment on above: Performed By: #### H OMCY, FOLT3, HEMDF, BMP3M #### [facility] [address] [place] [address] #### MMA2 #### The performing lab is in the report. Monocytes (Bld) [#/Vol] 1.2 10*3/uL High 0.0-0.8 [facility] Comment on above: Performed By: #### H OMCY, FOLT3, HEMDF, BMP3M #### [facility] [address] [place] [address] #### MMA2 #### The performing lab is in the report. Monocytes/100 WBC (Bld) 11.8 % High 2.0-10.0 [facility] Comment on above: Performed By: #### H OMCY, FOLT3, HEMDF, BMP3M #### [facility] [address] [place] [address] #### MMA2 #### The performing lab is in the report. Platelet mean volume (Bld) [Entitic vol] 7.8 fL Normal 7.4-10.4 [facility] Comment on above: Performed By: #### H OMCY, FOLT3, HEMDF, BMP3M #### [facility] [address] [place] [address] #### MMA2 #### The performing lab is in the report. Platelets (Bld) [#/Vol] 314 10*3/uL Normal 140-440 [facility] Comment on above: Performed By: #### H OMCY, FOLT3, HEMDF, BMP3M #### [facility] [address] [place] [address] #### MMA2 #### The performing lab is in the report. RBC (Bld) [#/Vol] 4.28 10*6/uL Low 4.40-5.90 [facility] Comment on above: Performed By: #### H OMCY, FOLT3, HEMDF, BMP3M #### [facility] [address] [place] [address] #### MMA2 #### The performing lab is in the report. WBC (Bld) [#/Vol] 10.5 10*3/uL Normal 3.6-10.7 [facility] Comment on above: Performed By: #### H OMCY, FOLT3, HEMDF, BMP3M #### [facility] [address] [place] [address] #### MMA2 #### The performing lab is in the report. No Panel InformationOrdered By: Tali Holcomb on 07-06-2021 Blood Culture, Routine No growth at [address] [facility] No Panel Informationon 07-06 Test Performed by [facility], [address] [place] [id number] [facility] STAIN GRAMon 07-06-2021 STAIN GRAM STAIN GRAM --> Statu s: F Many polymorphonuclear cells/lpf. Few epithelial cells/lpf. Many gram negative bacilli. Few gram positive cocci in clusters. Few gram positive bacilli. Few epithelial cells/lpf. Many gram negative bacilli. Few gram positive cocci in clusters. Few gram positive bacilli. Normal [facility] Comment on above: Performed By: #### C S/RE ####[address] [place] [address] [id number]#### S/GRM ####[address] [id number] Basic Metabolic Panelon 06-13 Anion gap [Moles/Vol] 5 mmol/L Normal 3-13 [facility] Comment on above: Performed By: #### H EMDF, BMP3M #### [facility] [address] [place] [address] Calcium [Mass/Vol] 9.0 mg/dL Normal 8.4-10.4 [facility] Comment on above: Performed By: #### H EMDF, BMP3M #### [facility] [address] [place] [address] CO2 [Moles/Vol] 29 mmol/L Normal 22-30 [facility] Comment on above: Performed By: #### H EMDF, BMP3M #### [facility] [address] [place] [address] Creatinine [Mass/Vol] 0.86 mg/dL Normal 0.52-1.25 [facility] Comment on above: Performed By: #### H BURKE BMP3M #### [facility] [address] [place] [address] eGFR OTHER > 90.0 Normal >60 [facility] Comment on above: Result Comment: KDIG O guidelines provide the following GFR categories: Stage GFR(ml/min/1.73 m2) Terms G1 >=90 Normal or high G2 60-89 Mildly decreased* G3a 45-59 Mildly to moderately decreased G3b 30-44 Moderately to severely decreased G4 15-29 Severely decreased G5 <15 Kidney failure *Relative to young adult level. In the absence of evidence of kidney damage, neither GFR category G1 nor G2 fulfill the criteria for CKD. The CKD-EPI equation is validated in individuals 18 years of age and older. Currently the best equation for estimating glomerular filtration rate (GFR) from serum creatinine in children is the Bedside Balbuena equation. It is less accurate in patients with extremes of muscle mass, restriction of dietary protein, ingestion of creatine, extra-renal metabolism of creatinine, or treatment with medications that affect renal tubular creatinine secretion. Performed By: #### Aaliyah TURK BMP3M #### [facility] [address] [place] [address] GFR/1.73 sq M.predicted among blacks MDRD (S/P/Bld) [Vol rate/Area] mL/min/{1.73_m2} Normal >60 [facility] Comment on above: Performed By: #### H BURKE BMP3M #### [facility] [address] [place] [address] Glucose [Mass/Vol] 112 mg/dL High 70-100 [facility] Comment on above: Performed By: #### H BURKE BMP3M #### [facility] [address] [place] [address] Urea nitrogen [Mass/Vol] 19 mg/dL High 7-17 [facility] Comment on above: Performed By: #### Aaliyah TURK BMP3M #### [facility] [address] [place] [address] Chloride [Moles/Vol] 100 mmol/L Normal 98-107 [facility] Comment on above: Performed By: #### H AWA TURK #### [facility] [address] [place] [address] Potassium [Moles/Vol] 3.7 mmol/L Normal 3.5-5.1 [facility] Comment on above: Performed By: #### H AWA TURK #### [facility] [address] [place] [address] Sodium [Moles/Vol] 134 mmol/L Low 135-145 [facility] Comment on above: Performed By: #### H AWA TURK #### [facility] [address] [place] [address] Basic Metabolic Panel w/ Ref cherie to MGon 07-05-2021 Anion gap [Moles/Vol] 5 mmol/L 3 - 13 mmol/L [facility] Calcium [Mass/Vol] 9.0 mg/dL 8.4 - 10. 4 mg/dL [facility] Chloride [Moles/Vol] 100 mmol/L 98 - 10 7 mmol/L [facility] CO2 [Moles/Vol] 29 mmol/L 22 - 30 mmol/L [facility] Creatinine [Mass/Vol] 0.86 mg/dL 0.52 - 1.25 mg/dL [facility] EGFR IF NonAfrican Citizen Of [place] >90.0 >60 mL/min [facility] Comment on above: KDIGO guidelines pro vide the following GFR categories: Stage GFR(ml/min/1.73 m2) Terms G1 >=90 Normal or high G2 60-89 Mildly decreased* G3a 45-59 Mildly to moderately decreased G3b 30-44 Moderately to severely decreased G4 15-29 Severely decreased G5 <15 Kidney failure *Relative to young adult level. In the absence of evidence of kidney damage, neither GFR category G1 nor G2 fulfill the criteria for CKD. The CKD-EPI equation is validated in individuals 18 years of age and older. Currently the best equation for estimating glomerular filtration rate (GFR) from serum creatinine in children is the Bedside Balbuena equation. It is less accurate in patients with extremes of muscle mass, restriction of dietary protein, ingestion of creatine, extra-renal metabolism of creatinine, or treatment with medications that affect renal tubular creatinine secretion. GFR/1.73 sq M.predicted among blacks MDRD (S/P/Bld) [Vol rate/Area] mL/min/{1.73_m2} >60 mL/min [facility] Glucose [Mass/Vol] 112 mg/dL High 70 - 100 mg/dL [facility] Interpretation and review of laboratory results Abnormal [facility] Potassium [Moles/Vol] 3.7 mmol/L 3.5 - 5.1 mmol/L [facility] Sodium [Moles/Vol] 134 mmol/L Low 135 - 145 mmol/L [facility] Urea nitrogen (BldV) [Mass/Vol] 19 mg/dL High 7 - 17 mg/dL [facility] Test Performed by [facility], [address] [place] [id number] [place] [address] LAB [facility] CBC auto differentialon 06-13 Absolute Baso # 0.0 10*3/uL 0.0 - 0.2 10*3/uL [facility] Absolute Neut # 9.0 10*3/uL High 1.8 - 7.0 10*3/uL [facility] Basophils/100 WBC (Bld) 0.3 % 0.0 - 2.0 % [facility] Eosinophils (Bld) [#/Vol] 0.5 10*3/uL 0.0 - 0.5 10*3/uL [facility] Eosinophils/100 WBC (Bld) 3.9 % 1.0 - 6.0 % [facility] Granulocytes/100 WBC (Bld) 71.5 % 40.0 - 80.0 % [facility] Hematocrit (Bld) [Volume fraction] 38.7 % Low 40.0 - 52.0 % [facility] Hemoglobin.gastrointe stinal spec 1 Ql (Stl) 12.8 g/dL Low 13.0 - 18.0 g/dL [facility] Interpretation and review of laboratory results Abnormal [facility] Lymphocytes (Bld) [#/Vol] 1.7 10*3/uL 1.0 - 4.3 10*3/uL [facility] Lymphocytes/100 WBC (Bld) 13.3 % Low 20.0 - 40.0 % [facility] MCH (RBC) [Entitic mass] 29.6 pg 26.0 - 34.0 pg [facility] MCHC (RBC) [Mass/Vol] 33.1 % 32.0 - 36.0 % [facility] MCV (RBC) [Entitic vol] 89.5 fL 80.0 - 98.0 fL [facility] Monocytes (Bld) [#/Vol] 1.4 10*3/uL High 0.0 - 0.8 10*3/uL [facility] Monocytes/100 WBC (Bld) 11.0 % High 2.0 - 10.0 % [facility] Platelet distribution width (Bld) [Ratio] 14.4 % 11.5 - 14.5 % [facility] Platelet mean volume (Bld) [Entitic vol] 7.2 fL Low 7.4 - 10.4 fL [facility] Platelets (Bld) [#/Vol] 284 10*3/uL 140 - 440 10*3/uL [facility] RBC (Bld) [#/Vol] 4.32 10*6/uL Low 4.40 - 5.9 0 10*6/uL [facility] WBC (Bld) [#/Vol] 12.6 10*3/uL High 3.6 - 10.7 10*3/uL [facility] Test Performed by [facility], [address] [place], [place] [address] [facility] Hem[facility] w/ Autodiffon 07-05 Abs Baso Cnt 0.0 10*3/uL Normal 0.0-0.2 [facility] Comment on above: Performed By: #### H EMDF BMP3M #### [facility] [address] [place] [address] Abs Neutrophile Cnt 9.0 10*3/uL High 1.8-7.0 [facility] Comment on above: Performed By: #### H EMDF, BMP3M #### [facility] [address] [place] [address] Basophils/100 WBC (Bld) 0.3 % Normal 0.0-2.0 [facility] Comment on above: Performed By: #### H EMDF, BMP3M #### [facility] [address] [place] [address] Eosinophils (Bld) [#/Vol] 0.5 10*3/uL Normal 0.0-0.5 [facility] Comment on above: Performed By: #### H EMDF, BMP3M #### [facility] [address] [place] [address] Eosinophils/100 WBC (Bld) 3.9 % Normal 1.0-6.0 [facility] Comment on above: Performed By: #### H EMDF, BMP3M #### [facility] [address] [place] [address] Erythrocyte distribution width (RBC) [Ratio] 14.4 % Normal 11.5-14.5 [facility] Comment on above: Performed By: #### H EMDF, BMP3M #### [facility] [address] [place] [address] Granulocytes/100 WBC (Bld) 71.5 % Normal 40.0-80.0 [facility] Comment on above: Performed By: #### H EMDF, BMP3M #### [facility] [address] [place] [address] Hematocrit (Bld) [Volume fraction] 38.7 % Low 40.0-52.0 [facility] Comment on above: Performed By: #### H EMDF, BMP3M #### [facility] [address] [place] [address] Hemoglobin (Bld) [Mass/Vol] 12.8 g/dL Low 13.0-18.0 [facility] Comment on above: Performed By: #### H EMDF, BMP3M #### [facility] [address] [place] [address] Lymphocytes (Bld) [#/Vol] 1.7 10*3/uL Normal 1.0-4.3 [facility] Comment on above: Performed By: #### H EMDF, BMP3M #### [facility] [address] [place] [address] Lymphocytes/100 WBC (Bld) 13.3 % Low 20.0-40.0 [facility] Comment on above: Performed By: #### H EMDF, BMP3M #### [facility] [address] [place] [address] MCH (RBC) [Entitic mass] 29.6 pg Normal 26.0-34.0 [facility] Comment on above: Performed By: #### H EMDF, BMP3M #### [facility] [address] [place] [address] MCHC 33.1 % Normal 32.0-36.0 [facility] Comment on above: Performed By: #### H EMDF, BMP3M #### [facility] [address] [place] [address] MCV (RBC) [Entitic vol] 89.5 fL Normal 80.0-98.0 [facility] Comment on above: Performed By: #### H EMDF, BMP3M #### [facility] [address] [place] [address] Monocytes (Bld) [#/Vol] 1.4 10*3/uL High 0.0-0.8 [facility] Comment on above: Performed By: #### H EMDF, BMP3M #### [facility] [address] [place] [address] Monocytes/100 WBC (Bld) 11.0 % High 2.0-10.0 [facility] Comment on above: Performed By: #### H EMDF, BMP3M #### [facility] [address] [place] [address] Platelet mean volume (Bld) [Entitic vol] 7.2 fL Low 7.4-10.4 [facility] Comment on above: Performed By: #### H EMDF, BMP3M #### [facility] [address] [place] [address] Platelets (Bld) [#/Vol] 284 10*3/uL Normal 140-440 [facility] Comment on above: Performed By: #### H EMDF, BMP3M #### [facility] [address] [place] [address] RBC (Bld) [#/Vol] 4.32 10*6/uL Low 4.40-5.90 [facility] Comment on above: Performed By: #### H EMDF, BMP3M #### [facility] [address] [place] [address] WBC (Bld) [#/Vol] 12.6 10*3/uL High 3.6-10.7 [facility] Comment on above: Performed By: #### H EMDF, BMP3M #### [facility] [address] [place] [address] Basic Metabolic Panelon 04-2 Calcium [Mass/Vol] 9.1 mg/dL Normal 8.4-10.4 [facility] Comment on above: Order Comment: Sligh t Hemolysis. Performed By: #### H OMCY, FOLT3, HEMDF, BMP3M #### [facility] [address] [place] [address] #### MMA2 #### The performing lab is in the report. Anion gap [Moles/Vol] 4 mmol/L Normal 3-13 [facility] Comment on above: Order Comment: Sligh t Hemolysis. Performed By: #### H OMCY, FOLT3, HEMDF, BMP3M #### [facility] [address] [place] [address] #### MMA2 #### The performing lab is in the report. CO2 [Moles/Vol] 32 mmol/L High 22-30 [facility] Comment on above: Order Comment: Sligh t Hemolysis. Performed By: #### H OMCY, FOLT3, HEMDF, BMP3M #### [facility] [address] [place] [address] #### MMA2 #### The performing lab is in the report. Creatinine [Mass/Vol] 0.89 mg/dL Normal 0.52-1.25 [facility] Comment on above: Order Comment: Sligh t Hemolysis. Performed By: #### H OMCY, FOLT3, HEMDF, BMP3M #### [facility] [address] [place] [address] #### MMA2 #### The performing lab is in the report. eGFR OTHER > 90.0 Normal >60 [facility] Comment on above: Order Comment: Sligh t Hemolysis. Result Comment: KDIG O guidelines provide the following GFR categories: Stage GFR(ml/min/1.73 m2) Terms G1 >=90 Normal or high G2 60-89 Mildly decreased* G3a 45-59 Mildly to moderately decreased G3b 30-44 Moderately to severely decreased G4 15-29 Severely decreased G5 <15 Kidney failure *Relative to young adult level. In the absence of evidence of kidney damage, neither GFR category G1 nor G2 fulfill the criteria for CKD. The CKD-EPI equation is validated in individuals 18 years of age and older. Currently the best equation for estimating glomerular filtration rate (GFR) from serum creatinine in children is the Bedside Balbuena equation. It is less accurate in patients with extremes of muscle mass, restriction of dietary protein, ingestion of creatine, extra-renal metabolism of creatinine, or treatment with medications that affect renal tubular creatinine secretion. Performed By: #### H OMCY, FOLT3, HEMDF, BMP3M #### [facility] [address] [place] [address] #### MMA2 #### The performing lab is in the report. GFR/1.73 sq M.predicted among blacks MDRD (S/P/Bld) [Vol rate/Area] mL/min/{1.73_m2} Normal >60 [facility] Comment on above: Order Comment: Sligh t Hemolysis. Performed By: #### H OMCY, FOLT3, HEMDF, BMP3M #### [facility] [address] [place] [address] #### MMA2 #### The performing lab is in the report. Glucose [Mass/Vol] 110 mg/dL High 70-100 [facility] Comment on above: Order Comment: Sligh t Hemolysis. Performed By: #### H OMCY, FOLT3, HEMDF, BMP3M #### [facility] [address] [place] [address] #### MMA2 #### The performing lab is in the report. Urea nitrogen [Mass/Vol] 17 mg/dL Normal 7-17 [facility] Comment on above: Order Comment: Sligh t Hemolysis. Performed By: #### H OMCY, FOLT3, HEMDF, BMP3M #### [facility] [address] [place] [address] #### MMA2 #### The performing lab is in the report. Chloride [Moles/Vol] 100 mmol/L Normal 98-107 [facility] Comment on above: Order Comment: Sligh t Hemolysis. Performed By: #### H OMCY, FOLT3, HEMDF, BMP3M #### [facility] [address] [place] [address] #### MMA2 #### The performing lab is in the report. Potassium [Moles/Vol] 4.2 mmol/L Normal 3.5-5.1 [facility] Comment on above: Order Comment: Sligh t Hemolysis. Performed By: #### H OMCY, FOLT3, HEMDF, BMP3M #### [facility] [address] [place] [place] [address] #### MMA2 #### The performing lab is in the report. Sodium [Moles/Vol] 137 mmol/L Normal 135-145 [facility] Comment on above: Order Comment: Sligh t Hemolysis. Performed By: #### H OMCY, FOLT3, HEMDF, BMP3M #### [facility] [address] [place] [address] #### MMA2 #### The performing lab is in the report. Basic Metabolic Panel w/ Ref cherie to MG 07-04-2021 Anion gap [Moles/Vol] 4 mmol/L 3 - 13 mmol/L [facility] Calcium [Mass/Vol] 9.1 mg/dL 8.4 - 10. 4 mg/dL [facility] Chloride [Moles/Vol] 100 mmol/L 98 - 10 7 mmol/L [facility] CO2 [Moles/Vol] 32 mmol/L High 22 - 30 mmol/L [facility] Creatinine [Mass/Vol] 0.89 mg/dL 0.52 - 1.25 mg/dL [facility] EGFR IF NonAfrican Citizen Of [place] >90.0 >60 mL/min [facility] Comment on above: KDIGO guidelines pro vide the following GFR categories: Stage GFR(ml/min/1.73 m2) Terms G1 >=90 Normal or high G2 60-89 Mildly decreased* G3a 45-59 Mildly to moderately decreased G3b 30-44 Moderately to severely decreased G4 15-29 Severely decreased G5 <15 Kidney failure *Relative to young adult level. In the absence of evidence of kidney damage, neither GFR category G1 nor G2 fulfill the criteria for CKD. The CKD-EPI equation is validated in individuals 18 years of age and older. Currently the best equation for estimating glomerular filtration rate (GFR) from serum creatinine in children is the Bedside Balbuena equation. It is less accurate in patients with extremes of muscle mass, restriction of dietary protein, ingestion of creatine, extra-renal metabolism of creatinine, or treatment with medications that affect renal tubular creatinine secretion. GFR/1.73 sq M.predicted among blacks MDRD (S/P/Bld) [Vol rate/Area] mL/min/{1.73_m2} >60 mL/min [facility] Glucose [Mass/Vol] 110 mg/dL High 70 - 100 mg/dL [facility] Interpretation and review of laboratory results Abnormal [facility] Potassium [Moles/Vol] 4.2 mmol/L 3.5 - 5.1 mmol/L [facility] Sodium [Moles/Vol] 137 mmol/L 135 - 145 mmol/L [facility] Urea nitrogen (BldV) [Mass/Vol] 17 mg/dL 7 - 17 mg/dL [facility] Test Performed by [facility], [address] [place] [address] Slight Hemolysis. [facility] CBC auto differentialon - Absolute Baso # 0.1 10*3/uL 0.0 - 0.2 10*3/uL [facility] Absolute Neut # 9.0 10*3/uL High 1.8 - 7.0 10*3/uL [facility] Basophils/100 WBC (Bld) 0.4 % 0.0 - 2.0 % [facility] Eosinophils (Bld) [#/Vol] 0.5 10*3/uL 0.0 - 0.5 10*3/uL [facility] Eosinophils/100 WBC (Bld) 4.2 % 1.0 - 6.0 % [facility] Granulocytes/100 WBC (Bld) 72.4 % 40.0 - 80.0 % [facility] Hematocrit (Bld) [Volume fraction] 38.6 % Low 40.0 - 52.0 % [facility] Hemoglobin.gastrointe stinal spec 1 Ql (Stl) 12.5 g/dL Low 13.0 - 18.0 g/dL [facility] Interpretation and review of laboratory results Abnormal [facility] Lymphocytes (Bld) [#/Vol] 1.4 10*3/uL 1.0 - 4.3 10*3/uL [facility] Lymphocytes/100 WBC (Bld) 10.8 % Low 20.0 - 40.0 % [facility] MCH (RBC) [Entitic mass] 29.0 pg 26.0 - 34.0 pg [facility] MCHC (RBC) [Mass/Vol] 32.5 % 32.0 - 36.0 % [facility] MCV (RBC) [Entitic vol] 89.4 fL 80.0 - 98.0 fL [facility] Monocytes (Bld) [#/Vol] 1.5 10*3/uL High 0.0 - 0.8 10*3/uL [facility] Monocytes/100 WBC (Bld) 12.2 % High 2.0 - 10.0 % [facility] Platelet distribution width (Bld) [Ratio] 14.2 % 11.5 - 14.5 % [facility] Platelet mean volume (Bld) [Entitic vol] 7.6 fL 7.4 - 10.4 fL [facility] Platelets (Bld) [#/Vol] 300 10*3/uL 140 - 440 10*3/uL [facility] RBC (Bld) [#/Vol] 4.32 10*6/uL Low 4.40 - 5.9 0 10*6/uL [facility] WBC (Bld) [#/Vol] 12.5 10*3/uL High 3.6 - 10.7 10*3/uL [facility] Test Performed by [facility], [address] LAB [facility] Hemogram w/ Autodiffon 07-04 Abs Baso Cnt 0.1 10*3/uL Normal 0.0-0.2 [facility] Comment on above: Performed By: #### H OMCY, FOLT3, HEMDF, BMP3M #### [facility] [address] [place] [address] #### MMA2 #### The performing lab is in the report. Abs Neutrophile Cnt 9.0 10*3/uL High 1.8-7.0 [facility] Comment on above: Performed By: #### H OMCY, FOLT3, HEMDF, BMP3M #### [facility] [address] [place] [address] #### MMA2 #### The performing lab is in the report. Basophils/100 WBC (Bld) 0.4 % Normal 0.0-2.0 [facility] Comment on above: Performed By: #### H OMCY, FOLT3, HEMDF, BMP3M #### [facility] [address] [place] [address] #### MMA2 #### The performing lab is in the report. Eosinophils (Bld) [#/Vol] 0.5 10*3/uL Normal 0.0-0.5 [facility] Comment on above: Performed By: #### H OMCY, FOLT3, HEMDF, BMP3M #### [facility] [address] [place] [address] #### MMA2 #### The performing lab is in the report. Eosinophils/100 WBC (Bld) 4.2 % Normal 1.0-6.0 [facility] Comment on above: Performed By: #### H OMCY, FOLT3, HEMDF, BMP3M #### [facility] [address] [place] [address] #### MMA2 #### The performing lab is in the report. Erythrocyte distribution width (RBC) [Ratio] 14.2 % Normal 11.5-14.5 [facility] Comment on above: Performed By: #### H OMCY, FOLT3, HEMDF, BMP3M #### [facility] [address] [place] [address] #### MMA2 #### The performing lab is in the report. Granulocytes/100 WBC (Bld) 72.4 % Normal 40.0-80.0 [facility] Comment on above: Performed By: #### H OMCY, FOLT3, HEMDF, BMP3M #### [facility] [address] [place] [address] #### MMA2 #### The performing lab is in the report. Hematocrit (Bld) [Volume fraction] 38.6 % Low 40.0-52.0 [facility] Comment on above: Performed By: #### H OMCY, FOLT3, HEMDF, BMP3M #### [facility] [address] [place] [address] #### MMA2 #### The performing lab is in the report. Hemoglobin (Bld) [Mass/Vol] 12.5 g/dL Low 13.0-18.0 [facility] Comment on above: Performed By: #### H OMCY, FOLT3, HEMDF, BMP3M #### [facility] [address] [place] [address] #### MMA2 #### The performing lab is in the report. Lymphocytes (Bld) [#/Vol] 1.4 10*3/uL Normal 1.0-4.3 [facility] Comment on above: Performed By: #### H OMCY, FOLT3, HEMDF, BMP3M #### [facility] [address] [place] [address] #### MMA2 #### The performing lab is in the report. Lymphocytes/100 WBC (Bld) 10.8 % Low 20.0-40.0 [facility] Comment on above: Performed By: #### H OMCY, FOLT3, HEMDF, BMP3M #### [facility] [address] [place] [address] #### MMA2 #### The performing lab is in the report. MCH (RBC) [Entitic mass] 29.0 pg Normal 26.0-34.0 [facility] Comment on above: Performed By: #### H OMCY, FOLT3, HEMDF, BMP3M #### [facility] [address] [place] [address] #### MMA2 #### The performing lab is in the report. MCHC 32.5 % Normal 32.0-36.0 [facility] Comment on above: Performed By: #### H OMCY, FOLT3, HEMDF, BMP3M #### [facility] [address] [place] [address] #### MMA2 #### The performing lab is in the report. MCV (RBC) [Entitic vol] 89.4 fL Normal 80.0-98.0 [facility] Comment on above: Performed By: #### H OMCY, FOLT3, HEMDF, BMP3M #### [facility] [address] [place] [address] #### MMA2 #### The performing lab is in the report. Monocytes (Bld) [#/Vol] 1.5 10*3/uL High 0.0-0.8 [facility] Comment on above: Performed By: #### H OMCY, FOLT3, HEMDF, BMP3M #### [facility] [address] [place] [address] #### MMA2 #### The performing lab is in the report. Monocytes/100 WBC (Bld) 12.2 % High 2.0-10.0 [facility] Comment on above: Performed By: #### H OMCY, FOLT3, HEMDF, BMP3M #### [facility] [address] [place] [address] #### MMA2 #### The performing lab is in the report. Platelet mean volume (Bld) [Entitic vol] 7.6 fL Normal 7.4-10.4 [facility] Comment on above: Performed By: #### H OMCY, FOLT3, HEMDF, BMP3M #### [facility] [address] [place] [address] #### MMA2 #### The performing lab is in the report. Platelets (Bld) [#/Vol] 300 10*3/uL Normal 140-440 [facility] Comment on above: Performed By: #### H OMCY, FOLT3, HEMDF, BMP3M #### [facility] [address] [place] [address] #### MMA2 #### The performing lab is in the report. RBC (Bld) [#/Vol] 4.32 10*6/uL Low 4.40-5.90 [facility] Comment on above: Performed By: #### H OMCY, FOLT3, HEMDF, BMP3M #### [facility] [address] [place] [address] #### MMA2 #### The performing lab is in the report. WBC (Bld) [#/Vol] 12.5 10*3/uL High 3.6-10.7 [facility] Comment on above: Performed By: #### H OMCY, FOLT3, HEMDF, BMP3M #### [facility] [address] [place] [address] #### MMA2 #### The performing lab is in the report. Basic Metabolic Panelon - Anion gap [Moles/Vol] 5 mmol/L Normal 3-13 [facility] Comment on above: Performed By: #### H OMCY, FOLT3, HEMDF, BMP3M #### [facility] [address] [place] [address] #### MMA2 #### The performing lab is in the report. Calcium [Mass/Vol] 8.7 mg/dL Normal 8.4-10.4 [facility] Comment on above: Performed By: #### H OMCY, FOLT3, HEMDF, BMP3M #### [facility] [address] [place] [address] #### MMA2 #### The performing lab is in the report. CO2 [Moles/Vol] 32 mmol/L High 22-30 [facility] Comment on above: Performed By: #### H OMCY, FOLT3, HEMDF, BMP3M #### [facility] [address] [place] [address] #### MMA2 #### The performing lab is in the report. Glucose [Mass/Vol] 105 mg/dL High 70-100 [facility] Comment on above: Performed By: #### H OMCY, FOLT3, HEMDF, BMP3M #### [facility] [address] [place] [address] #### MMA2 #### The performing lab is in the report. Urea nitrogen [Mass/Vol] 21 mg/dL High 7-17 [facility] Comment on above: Performed By: #### H OMCY, FOLT3, HEMDF, BMP3M #### [facility] [address] [place] [address] #### MMA2 #### The performing lab is in the report. Creatinine [Mass/Vol] 0.95 mg/dL Normal 0.52-1.25 [facility] Comment on above: Performed By: #### H OMCY, FOLT3, HEMDF, BMP3M #### [facility] [address] [place] [address] #### MMA2 #### The performing lab is in the report. eGFR OTHER > 90.0 Normal >60 [facility] Comment on above: Result Comment: KDIG O guidelines provide the following GFR categories: Stage GFR(ml/min/1.73 m2) Terms G1 >=90 Normal or high G2 60-89 Mildly decreased* G3a 45-59 Mildly to moderately decreased G3b 30-44 Moderately to severely decreased G4 15-29 Severely decreased G5 <15 Kidney failure *Relative to young adult level. In the absence of evidence of kidney damage, neither GFR category G1 nor G2 fulfill the criteria for CKD. The CKD-EPI equation is validated in individuals 18 years of age and older. Currently the best equation for estimating glomerular filtration rate (GFR) from serum creatinine in children is the Bedside Balbuena equation. It is less accurate in patients with extremes of muscle mass, restriction of dietary protein, ingestion of creatine, extra-renal metabolism of creatinine, or treatment with medications that affect renal tubular creatinine secretion. Performed By: #### H OMCY, FOLT3, HEMDF, BMP3M #### [facility] [address] [place] [address] #### MMA2 #### The performing lab is in the report. GFR/1.73 sq M.predicted among blacks MDRD (S/P/Bld) [Vol rate/Area] mL/min/{1.73_m2} Normal >60 [facility] Comment on above: Performed By: #### H OMCY, FOLT3, HEMDF, BMP3M #### [facility] [address] [place] [address] #### MMA2 #### The performing lab is in the report. Potassium [Moles/Vol] 3.6 mmol/L Normal 3.5-5.1 [facility] Comment on above: Performed By: #### H OMCY, FOLT3, HEMDF, BMP3M #### [facility] [address] [place] [address] #### MMA2 #### The performing lab is in the report. Sodium [Moles/Vol] 138 mmol/L Normal 135-145 [facility] Comment on above: Performed By: #### H OMCY, FOLT3, HEMDF, BMP3M #### [facility] [address] [place] [address] #### MMA2 #### The performing lab is in the report. Chloride [Moles/Vol] 101 mmol/L Normal 98-107 [facility] Comment on above: Performed By: #### H OMCY, FOLT3, HEMDF, BMP3M #### [facility] [address] [place] [address] #### MMA2 #### The performing lab is in the report. Basic Metabolic Panel w/ Ref cherie to MGon 07-03-2021 Anion gap [Moles/Vol] 5 mmol/L 3 - 13 mmol/L [facility] Calcium [Mass/Vol] 8.7 mg/dL 8.4 - 10. 4 mg/dL [facility] Chloride [Moles/Vol] 101 mmol/L 98 - 10 7 mmol/L [facility] CO2 [Moles/Vol] 32 mmol/L High 22 - 30 mmol/L [facility] Creatinine [Mass/Vol] 0.95 mg/dL 0.52 - 1.25 mg/dL [facility] EGFR IF NonAfrican Citizen Of [place] >90.0 >60 mL/min [facility] Comment on above: KDIGO guidelines pro vide the following GFR categories: Stage GFR(ml/min/1.73 m2) Terms G1 >=90 Normal or high G2 60-89 Mildly decreased* G3a 45-59 Mildly to moderately decreased G3b 30-44 Moderately to severely decreased G4 15-29 Severely decreased G5 <15 Kidney failure *Relative to young adult level. In the absence of evidence of kidney damage, neither GFR category G1 nor G2 fulfill the criteria for CKD. The CKD-EPI equation is validated in individuals 18 years of age and older. Currently the best equation for estimating glomerular filtration rate (GFR) from serum creatinine in children is the Bedside Balbuena equation. It is less accurate in patients with extremes of muscle mass, restriction of dietary protein, ingestion of creatine, extra-renal metabolism of creatinine, or treatment with medications that affect renal tubular creatinine secretion. GFR/1.73 sq M.predicted among blacks MDRD (S/P/Bld) [Vol rate/Area] mL/min/{1.73_m2} >60 mL/min [facility] Glucose [Mass/Vol] 105 mg/dL High 70 - 100 mg/dL [facility] Interpretation and review of laboratory results Abnormal [facility] Potassium [Moles/Vol] 3.6 mmol/L 3.5 - 5.1 mmol/L [facility] Sodium [Moles/Vol] 138 mmol/L 135 - 145 mmol/L [facility] Urea nitrogen (BldV) [Mass/Vol] 21 mg/dL High 7 - 17 mg/dL [facility] Test Performed by [facility], [address] [place] [address] [facility] CBC auto differentialon 06-13 Absolute Baso # 0.0 10*3/uL 0.0 - 0.2 10*3/uL [facility] Absolute Neut # 8.2 10*3/uL High 1.8 - 7.0 10*3/uL [facility] Basophils/100 WBC (Bld) 0.4 % 0.0 - 2.0 % [facility] Eosinophils (Bld) [#/Vol] 0.4 10*3/uL 0.0 - 0.5 10*3/uL [facility] Eosinophils/100 WBC (Bld) 3.4 % 1.0 - 6.0 % [facility] Granulocytes/100 WBC (Bld) 74.1 % 40.0 - 80.0 % [facility] Hematocrit (Bld) [Volume fraction] 35.7 % Low 40.0 - 52.0 % [facility] Hemoglobin.gastrointe stinal spec 1 Ql (Stl) 11.6 g/dL Low 13.0 - 18.0 g/dL [facility] Interpretation and review of laboratory results Abnormal [facility] Lymphocytes (Bld) [#/Vol] 1.5 10*3/uL 1.0 - 4.3 10*3/uL [facility] Lymphocytes/100 WBC (Bld) 13.4 % Low 20.0 - 40.0 % [facility] MCH (RBC) [Entitic mass] 29.1 pg 26.0 - 34.0 pg [facility] MCHC (RBC) [Mass/Vol] 32.6 % 32.0 - 36.0 % [facility] MCV (RBC) [Entitic vol] 89.3 fL 80.0 - 98.0 fL [facility] Monocytes (Bld) [#/Vol] 1.0 10*3/uL High 0.0 - 0.8 10*3/uL [facility] Monocytes/100 WBC (Bld) 8.7 % 2.0 - 10.0 % [facility] Platelet distribution width (Bld) [Ratio] 14.0 % 11.5 - 14.5 % [facility] Platelet mean volume (Bld) [Entitic vol] 7.6 fL 7.4 - 10.4 fL [facility] Platelets (Bld) [#/Vol] 315 10*3/uL 140 - 440 10*3/uL [facility] RBC (Bld) [#/Vol] 4.00 10*6/uL Low 4.40 - 5.9 0 10*6/uL [facility] WBC (Bld) [#/Vol] 11.0 10*3/uL High 3.6 - 10.7 10*3/uL [facility] Test Performed by [facility], [address] [facility] Folateon 07-03-2021 Folate 3.8 ng/mL Normal [facility] Comment on above: Result Comment: >2.8 Performed By: #### H OMCY, FOLT3, HEMDF, BMP3M #### [facility] [address] [place] [address] #### MMA2 #### The performing lab is in the report. Folate 3.8 ng/mL [facility] Comment on above: >2.8 Test Performed by [facility], [address] [facility] Hemogram w/ Autodiffon 07-03 Abs Baso Cnt 0.0 10*3/uL Normal 0.0-0.2 [facility] Comment on above: Performed By: #### H OMCY, FOLT3, HEMDF, BMP3M #### [facility] [address] [place] [address] #### MMA2 #### The performing lab is in the report. Abs Neutrophile Cnt 8.2 10*3/uL High 1.8-7.0 [facility] Comment on above: Performed By: #### H OMCY, FOLT3, HEMDF, BMP3M #### [facility] [address] [place] [address] #### MMA2 #### The performing lab is in the report. Basophils/100 WBC (Bld) 0.4 % Normal 0.0-2.0 [facility] Comment on above: Performed By: #### H OMCY, FOLT3, HEMDF, BMP3M #### [place] [address] [place] [address] #### MMA2 #### The performing lab is in the report. Eosinophils (Bld) [#/Vol] 0.4 10*3/uL Normal 0.0-0.5 [facility] Comment on above: Performed By: #### H OMCY, FOLT3, HEMDF, BMP3M #### [place] [address] [place] [address] #### MMA2 #### The performing lab is in the report. Eosinophils/100 WBC (Bld) 3.4 % Normal 1.0-6.0 [facility] Comment on above: Performed By: #### H OMCY, FOLT3, HEMDF, BMP3M #### [address] [place] [address] #### MMA2 #### The performing lab is in the report. Erythrocyte distribution width (RBC) [Ratio] 14.0 % Normal 11.5-14.5 [facility] Comment on above: Performed By: #### H OMCY, FOLT3, HEMDF, BMP3M #### [facility] [address] [facility] [place] [address] #### MMA2 #### The performing lab is in the report. Granulocytes/100 WBC (Bld) 74.1 % Normal 40.0-80.0 [facility] Comment on above: Performed By: #### H OMCY, FOLT3, HEMDF, BMP3M #### [facility] [address] [place] [address] #### MMA2 #### The performing lab is in the report. Hematocrit (Bld) [Volume fraction] 35.7 % Low 40.0-52.0 [facility] Comment on above: Performed By: #### H OMCY, FOLT3, HEMDF, BMP3M #### [facility] [address] [place] [address] #### MMA2 #### The performing lab is in the report. Hemoglobin (Bld) [Mass/Vol] 11.6 g/dL Low 13.0-18.0 [facility] Comment on above: Performed By: #### H OMCY, FOLT3, HEMDF, BMP3M #### [facility] [address] [place] [address] #### MMA2 #### The performing lab is in the report. Lymphocytes (Bld) [#/Vol] 1.5 10*3/uL Normal 1.0-4.3 [facility] Comment on above: Performed By: #### H OMCY, FOLT3, HEMDF, BMP3M #### [facility] [address] [place] [address] #### MMA2 #### The performing lab is in the report. Lymphocytes/100 WBC (Bld) 13.4 % Low 20.0-40.0 [facility] Comment on above: Performed By: #### H OMCY, FOLT3, HEMDF, BMP3M #### [facility] [address] [place] [address] #### MMA2 #### The performing lab is in the report. MCH (RBC) [Entitic mass] 29.1 pg Normal 26.0-34.0 [facility] Comment on above: Performed By: #### H OMCY, FOLT3, HEMDF, BMP3M #### [facility] [address] [place] [address] #### MMA2 #### The performing lab is in the report. MCHC 32.6 % Normal 32.0-36.0 [facility] Comment on above: Performed By: #### H OMCY, FOLT3, HEMDF, BMP3M #### [facility] [address] [place] [address] #### MMA2 #### The performing lab is in the report. MCV (RBC) [Entitic vol] 89.3 fL Normal 80.0-98.0 [facility] Comment on above: Performed By: #### H OMCY, FOLT3, HEMDF, BMP3M #### [facility] [address] [place] [address] #### MMA2 #### The performing lab is in the report. Monocytes (Bld) [#/Vol] 1.0 10*3/uL High 0.0-0.8 [facility] Comment on above: Performed By: #### H OMCY, FOLT3, HEMDF, BMP3M #### [facility] [address] [place] [address] #### MMA2 #### The performing lab is in the report. Monocytes/100 WBC (Bld) 8.7 % Normal 2.0-10.0 [facility] Comment on above: Performed By: #### H OMCY, FOLT3, HEMDF, BMP3M #### [facility] [address] [place] [address] #### MMA2 #### The performing lab is in the report. Platelet mean volume (Bld) [Entitic vol] 7.6 fL Normal 7.4-10.4 [facility] Comment on above: Performed By: #### H OMCY, FOLT3, HEMDF, BMP3M #### [facility] [address] [place] [address] #### MMA2 #### The performing lab is in the report. Platelets (Bld) [#/Vol] 315 10*3/uL Normal 140-440 [facility] Comment on above: Performed By: #### H OMCY, FOLT3, HEMDF, BMP3M #### [facility] [address] [place] [address] #### MMA2 #### The performing lab is in the report. RBC (Bld) [#/Vol] 4.00 10*6/uL Low 4.40-5.90 [facility] Comment on above: Performed By: #### H OMCY, FOLT3, HEMDF, BMP3M #### [facility] [address] [place] [address] #### MMA2 #### The performing lab is in the report. WBC (Bld) [#/Vol] 11.0 10*3/uL High 3.6-10.7 [facility] Comment on above: Performed By: #### H OMCY, FOLT3, HEMDF, BMP3M #### [facility] [address] [place] [address] #### MMA2 #### The performing lab is in the report. Homocysteineon 07-03-2021 Homocysteine 11.0 umol/L Normal 6.6-14.8 [facility] Comment on above: Performed By: #### H OMCY, FOLT3, HEMDF, BMP3M #### [facility] [address] [facility] [place] [address] #### MMA2 #### The performing lab is in the report. Homocysteine 11 umol/L 6.6 - 14.8 umol/L [facility] Test Performed by [facility], [facility] [address] LAB [facility] Basic Metabolic Panelon - Anion gap [Moles/Vol] 4 mmol/L Normal 3-13 [facility] Comment on above: Performed By: #### H OMCY, FOLT3, HEMDF, BMP3M #### [facility] [address] [place] [address] #### MMA2 #### The performing lab is in the report. Calcium [Mass/Vol] 9.1 mg/dL Normal 8.4-10.4 [facility] Comment on above: Performed By: #### H OMCY, FOLT3, HEMDF, BMP3M #### [facility] [address] [facility] [place] [address] #### MMA2 #### The performing lab is in the report. CO2 [Moles/Vol] 30 mmol/L Normal 22-30 [facility] Comment on above: Performed By: #### H OMCY, FOLT3, HEMDF, BMP3M #### [facility] [address] [place] [address] #### MMA2 #### The performing lab is in the report. Glucose [Mass/Vol] 87 mg/dL Normal 70-100 [facility] Comment on above: Performed By: #### H OMCY, FOLT3, HEMDF, BMP3M #### [facility] [address] [place] [address] #### MMA2 #### The performing lab is in the report. Urea nitrogen [Mass/Vol] 24 mg/dL High 7-17 [facility] Comment on above: Performed By: #### H OMCY, FOLT3, HEMDF, BMP3M #### [facility] [address] [place] [address] #### MMA2 #### The performing lab is in the report. Creatinine [Mass/Vol] 0.99 mg/dL Normal 0.52-1.25 [facility] Comment on above: Performed By: #### H OMCY, FOLT3, HEMDF, BMP3M #### [facility] [address] [place] [address] #### MMA2 #### The performing lab is in the report. GFR/1.73 sq M.predicted among blacks MDRD (S/P/Bld) [Vol rate/Area] mL/min/{1.73_m2} Normal >60 [facility] Comment on above: Performed By: #### H OMCY, FOLT3, HEMDF, BMP3M #### [facility] [address] [place] [address] #### MMA2 #### The performing lab is in the report. GFR/1.73 sq M.predicted among non-blacks MDRD (S/P/Bld) [Vol rate/Area] 88.0 mL/min/{1.73_m2} Normal >60 [facility] Comment on above: Result Comment: KDIG O guidelines provide the following GFR categories: Stage GFR(ml/min/1.73 m2) Terms G1 >=90 Normal or high G2 60-89 Mildly decreased* G3a 45-59 Mildly to moderately decreased G3b 30-44 Moderately to severely decreased G4 15-29 Severely decreased G5 <15 Kidney failure *Relative to young adult level. In the absence of evidence of kidney damage, neither GFR category G1 nor G2 fulfill the criteria for CKD. The CKD-EPI equation is validated in individuals 18 years of age and older. Currently the best equation for estimating glomerular filtration rate (GFR) from serum creatinine in children is the Bedside Balbuena equation. It is less accurate in patients with extremes of muscle mass, restriction of dietary protein, ingestion of creatine, extra-renal metabolism of creatinine, or treatment with medications that affect renal tubular creatinine secretion. Performed By: #### H OMCY, FOLT3, HEMDF, BMP3M #### [facility] [address] [place] [address] #### MMA2 #### The performing lab is in the report. Chloride [Moles/Vol] 99 mmol/L Normal 98-107 [facility] Comment on above: Performed By: #### H OMCY, FOLT3, HEMDF, BMP3M #### [facility] [address] [place] [address] #### MMA2 #### The performing lab is in the report. Potassium [Moles/Vol] 4.2 mmol/L Normal 3.5-5.1 [facility] Comment on above: Performed By: #### H OMCY, FOLT3, HEMDF, BMP3M #### [facility] [address] [place] [address] #### MMA2 #### The performing lab is in the report. Sodium [Moles/Vol] 133 mmol/L Low 135-145 [facility] Comment on above: Performed By: #### H OMCY, FOLT3, HEMDF, BMP3M #### [facility] [address] [place] [address] #### MMA2 #### The performing lab is in the report. Basic Metabolic Panel w/ Ref cherie to MGon 07-02-2021 Anion gap [Moles/Vol] 4 mmol/L 3 - 13 mmol/L [facility] Calcium [Mass/Vol] 9.1 mg/dL 8.4 - 10. 4 mg/dL [facility] Chloride [Moles/Vol] 99 mmol/L 98 - 10 7 mmol/L [facility] CO2 [Moles/Vol] 30 mmol/L 22 - 30 mmol/L [facility] Creatinine [Mass/Vol] 0.99 mg/dL 0.52 - 1.25 mg/dL [facility] EGFR IF NonAfrican Citizen Of [place] 88.0 mL/min >60 [facility] Comment on above: KDIGO guidelines pro vide the following GFR categories: Stage GFR(ml/min/1.73 m2) Terms G1 >=90 Normal or high G2 60-89 Mildly decreased* G3a 45-59 Mildly to moderately decreased G3b 30-44 Moderately to severely decreased G4 15-29 Severely decreased G5 <15 Kidney failure *Relative to young adult level. In the absence of evidence of kidney damage, neither GFR category G1 nor G2 fulfill the criteria for CKD. The CKD-EPI equation is validated in individuals 18 years of age and older. Currently the best equation for estimating glomerular filtration rate (GFR) from serum creatinine in children is the Bedside Balbuena equation. It is less accurate in patients with extremes of muscle mass, restriction of dietary protein, ingestion of creatine, extra-renal metabolism of creatinine, or treatment with medications that affect renal tubular creatinine secretion. GFR/1.73 sq M.predicted among blacks MDRD (S/P/Bld) [Vol rate/Area] mL/min/{1.73_m2} >60 mL/min [facility] Glucose [Mass/Vol] 87 mg/dL 70 - 100 mg/dL [facility] Potassium [Moles/Vol] 4.2 mmol/L 3.5 - 5.1 mmol/L [facility] Sodium [Moles/Vol] 133 mmol/L Low 135 - 145 mmol/L [facility] Urea nitrogen (BldV) [Mass/Vol] 24 mg/dL High 7 - 17 mg/dL [facility] C-Reactive Proteinon 022 CRP [Mass/Vol] 22.5 mg/L High 0.0-9.9 [facility] Comment on above: Result Comment: . Performed By: #### H OMCY, FOLT3, HEMDF, BMP3M #### [facility] [address] [place] [address] #### MMA2 #### The performing lab is in the report. CRP [Mass/Vol] 22.5 mg/L High 0.0 - 9.9 mg/L [facility] Comment on above: . CBC auto differentialon 06-13 Absolute Baso # 0.1 10*3/uL 0.0 - 0.2 10*3/uL [facility] Absolute Neut # 7.0 10*3/uL 1.8 - 7.0 10*3/uL [facility] Basophils/100 WBC (Bld) 0.7 % 0.0 - 2.0 % [facility] Eosinophils (Bld) [#/Vol] 0.3 10*3/uL 0.0 - 0.5 10*3/uL [facility] Eosinophils/100 WBC (Bld) 2.8 % 1.0 - 6.0 % [facility] Granulocytes/100 WBC (Bld) 64.7 % 40.0 - 80.0 % [facility] Hematocrit (Bld) [Volume fraction] 39.5 % Low 40.0 - 52.0 % [facility] Hemoglobin.gastrointe stinal spec 1 Ql (Stl) 13.0 g/dL 13.0 - 18.0 g/dL [facility] Interpretation and review of laboratory results Abnormal [facility] Lymphocytes (Bld) [#/Vol] 2.2 10*3/uL 1.0 - 4.3 10*3/uL [facility] Lymphocytes/100 WBC (Bld) 20.7 % 20.0 - 40.0 % [facility] MCH (RBC) [Entitic mass] 29.4 pg 26.0 - 34.0 pg [facility] MCHC (RBC) [Mass/Vol] 32.8 % 32.0 - 36.0 % [facility] MCV (RBC) [Entitic vol] 89.7 fL 80.0 - 98.0 fL [facility] Monocytes (Bld) [#/Vol] 1.2 10*3/uL High 0.0 - 0.8 10*3/uL [facility] Monocytes/100 WBC (Bld) 11.1 % High 2.0 - 10.0 % [facility] Platelet distribution width (Bld) [Ratio] 14.1 % 11.5 - 14.5 % [facility] Platelet mean volume (Bld) [Entitic vol] 7.4 fL 7.4 - 10.4 fL [facility] Platelets (Bld) [#/Vol] 330 10*3/uL 140 - 440 10*3/uL [facility] RBC (Bld) [#/Vol] 4.40 10*6/uL 4.40 - 5.9 0 10*6/uL [facility] WBC (Bld) [#/Vol] 10.8 10*3/uL High 3.6 - 10.7 10*3/uL [facility] Test Performed by [facility], [address] [place], [place] [id number] [place] [address] LAB [facility] Fluoroscopy modified barium swallow with videoon 07-02-2021 Patient Name: LUIS STEELE Fluoroscopy ACCESSION EXAM DATE/TIME PROCEDURE ORDERING PROVIDER [id number] 07/02/2021 13:20 EDT RF Swallowing Function 5813 -KAPIL GARCÍA w/ Video CPT code 77725 Reason For Exam (RF Swallowing Function w/ Video) dysphagia, pharyngeal residuals? Report SWALLOWING STUDY: INDICATION: Swallowing dysfunction. Dysphagia and cough. TECHNIQUE: Swallowing study was performed with fluoroscopic observation in association with the speech pathologist. The patient was observed to swallow thin and thick liquids along with solid material containing barium. Videotape monitoring of the fluoroscopic procedure was performed along with digital radiographs. 14 cine clips were obtained. Total fluoroscopic time was 1.5 minutes. COMPARISON: Multiple prior studies most recently CT soft tissue neck 07/01/2021 FINDINGS/IMPRESSION: During the oral phase there is oral residue with premature spillage to the vallecula and piriform sinus. During the pharyngeal phase, there is coating of the pharyngeal carballo with vallecula residuals. There is laryngeal penetration with flash trace aspiration. Please see speech therapist's report for complete findings, details, and recommendations. Esophagram was not performed due to the presence of aspiration which necessitates small quantity of liquids which is significantly limited evaluation of the esophagus. Esophagram can be performed when patient is better able to tolerate. Report Dictated on --- Final --- Dictating Physician: MD LETA, VICENTE Signed Date and Time: 07/02/2021 2:45 pm Signed by: MD GILLETTE VLADIMIR Transcribed Date and Time: 07/02/2021 2:46 [facility] Result, Unknown Provider - 07/02/2021 Patient Name: LUIS STEELE Fluoroscopy ACCESSION EXAM DATE/TIME PROCEDURE ORDERING PROVIDER [id number] 07/02/2021 13:20 EDT RF Swallowing Function 58KAPIL PALACIOS w/ Video CPT code 03621 Reason For Exam (RF Swallowing Function w/ Video) dysphagia, pharyngeal residuals? Report SWALLOWING STUDY: INDICATION: Swallowing dysfunction. Dysphagia and cough. TECHNIQUE: Swallowing study was performed with fluoroscopic observation in association with the speech pathologist. The patient was observed to swallow thin and thick liquids along with solid material containing barium. Videotape monitoring of the fluoroscopic procedure was performed along with digital radiographs. 14 cine clips were obtained. Total fluoroscopic time was 1.5 minutes. COMPARISON: Multiple prior studies most recently CT soft tissue neck 07/01/2021 FINDINGS/IMPRESSION: During the oral phase there is oral residue with premature spillage to the vallecula and piriform sinus. During the pharyngeal phase, there is coating of the pharyngeal carballo with vallecula residuals. There is laryngeal penetration with flash trace aspiration. Please see speech therapist's report for complete findings, details, and recommendations. Esophagram was not performed due to the presence of aspiration which necessitates small quantity of liquids which is significantly limited evaluation of the esophagus. Esophagram can be performed when patient is better able to tolerate. Report Dictated on --- Final --- Dictating Physician: MD GILLETTE VLADIMIR Signed Date and Time: 07/02/2021 2:45 pm Signed by: MD GILLETTE VLADIMIR Transcribed Date and Time: 07/02/2021 2:46 [facility] Work Phone: [facility] Work Phone: Radiology Study observation (narrative) [facility] Work Phone: [facility] Strep Screen By PCRo n 07-02-2021 [facility] Strep Screen By PCR NOT Detected Expected Result: Not Detected Methodology - Real Time PCR (Cepheid) [facility] Test Performed by [facility], [address] [place], [place] [id number] [place] [address] LAB [facility] Group A Strep Screen by PCRo n 07-02-2021 [facility] Strep Screen by PCR Group A Strep Screen by PCR --> Status: F NOT Detected Expected Result: Not Detected Methodology - Real Time PCR (Cepheid) Expected Result: Not Detected Methodology - Real Time PCR (Cepheid) Normal [facility] Comment on above: Performed By: #### H EMDF, BMP3M #### [facility] [address] [place] [address] Hemogram w/ Autodiffon 07-02 Abs Baso Cnt 0.1 10*3/uL Normal 0.0-0.2 [facility] Comment on above: Performed By: #### H OMCY, FOLT3, HEMDF, BMP3M #### [facility] [address] [place] [address] #### MMA2 #### The performing lab is in the report. Abs Neutrophile Cnt 7.0 10*3/uL Normal 1.8-7.0 [facility] Comment on above: Performed By: #### H OMCY, FOLT3, HEMDF, BMP3M #### [facility] [address] [place] [address] #### MMA2 #### The performing lab is in the report. Basophils/100 WBC (Bld) 0.7 % Normal 0.0-2.0 [facility] Comment on above: Performed By: #### H OMCY, FOLT3, HEMDF, BMP3M #### [facility] [address] [place] [address] #### MMA2 #### The performing lab is in the report. Eosinophils (Bld) [#/Vol] 0.3 10*3/uL Normal 0.0-0.5 [facility] Comment on above: Performed By: #### H OMCY, FOLT3, HEMDF, BMP3M #### [facility] [address] [place] [address] #### MMA2 #### The performing lab is in the report. Eosinophils/100 WBC (Bld) 2.8 % Normal 1.0-6.0 [facility] Comment on above: Performed By: #### H OMCY, FOLT3, HEMDF, BMP3M #### [facility] [address] [place] [address] #### MMA2 #### The performing lab is in the report. Erythrocyte distribution width (RBC) [Ratio] 14.1 % Normal 11.5-14.5 [facility] Comment on above: Performed By: #### H OMCY, FOLT3, HEMDF, BMP3M #### [place] [address] [place] [address] #### MMA2 #### The performing lab is in the report. Granulocytes/100 WBC (Bld) 64.7 % Normal 40.0-80.0 [facility] Comment on above: Performed By: #### H OMCY, FOLT3, HEMDF, BMP3M #### [place] [address] [place] [address] #### MMA2 #### The performing lab is in the report. Hematocrit (Bld) [Volume fraction] 39.5 % Low 40.0-52.0 [facility] Comment on above: Performed By: #### H OMCY, FOLT3, HEMDF, BMP3M #### [address] [place] [address] #### MMA2 #### The performing lab is in the report. Hemoglobin (Bld) [Mass/Vol] 13.0 g/dL Normal 13.0-18.0 [facility] Comment on above: Performed By: #### H OMCY, FOLT3, HEMDF, BMP3M #### [facility] [address] [place] [address] #### MMA2 #### The performing lab is in the report. Lymphocytes (Bld) [#/Vol] 2.2 10*3/uL Normal 1.0-4.3 [facility] Comment on above: Performed By: #### H OMCY, FOLT3, HEMDF, BMP3M #### [facility] [address] [place] [address] #### MMA2 #### The performing lab is in the report. Lymphocytes/100 WBC (Bld) 20.7 % Normal 20.0-40.0 [facility] Comment on above: Performed By: #### H OMCY, FOLT3, HEMDF, BMP3M #### [facility] [address] [place] [address] #### MMA2 #### The performing lab is in the report. MCH (RBC) [Entitic mass] 29.4 pg Normal 26.0-34.0 [facility] Comment on above: Performed By: #### H OMCY, FOLT3, HEMDF, BMP3M #### [address] [place] [address] #### MMA2 #### The performing lab is in the report. MCHC 32.8 % Normal 32.0-36.0 [facility] Comment on above: Performed By: #### H OMCY, FOLT3, HEMDF, BMP3M #### [facility] [address] [place] [address] #### MMA2 #### The performing lab is in the report. MCV (RBC) [Entitic vol] 89.7 fL Normal 80.0-98.0 [facility] Comment on above: Performed By: #### H OMCY, FOLT3, HEMDF, BMP3M #### [facility] [address] [place] [address] #### MMA2 #### The performing lab is in the report. Monocytes (Bld) [#/Vol] 1.2 10*3/uL High 0.0-0.8 [facility] Comment on above: Performed By: #### H OMCY, FOLT3, HEMDF, BMP3M #### [facility] [address] [place] [address] #### MMA2 #### The performing lab is in the report. Monocytes/100 WBC (Bld) 11.1 % High 2.0-10.0 [facility] Comment on above: Performed By: #### H OMCY, FOLT3, HEMDF, BMP3M #### [facility] [address] [place] [address] #### MMA2 #### The performing lab is in the report. Platelet mean volume (Bld) [Entitic vol] 7.4 fL Normal 7.4-10.4 [facility] Comment on above: Performed By: #### H OMCY, FOLT3, HEMDF, BMP3M #### [facility] [address] [place] [address] #### MMA2 #### The performing lab is in the report. Platelets (Bld) [#/Vol] 330 10*3/uL Normal 140-440 [facility] Comment on above: Performed By: #### H OMCY, FOLT3, HEMDF, BMP3M #### [facility] [address] [place] [address] #### MMA2 #### The performing lab is in the report. RBC (Bld) [#/Vol] 4.40 10*6/uL Normal 4.40-5.90 [facility] Comment on above: Performed By: #### H OMCY, FOLT3, HEMDF, BMP3M #### [facility] [address] [place] [address] #### MMA2 #### The performing lab is in the report. WBC (Bld) [#/Vol] 10.8 10*3/uL High 3.6-10.7 [facility] Comment on above: Performed By: #### H OMCY, FOLT3, HEMDF, BMP3M #### [facility] [address] [place] [address] #### MMA2 #### The performing lab is in the report. No Panel Informationon 07-02 Interpretation and review of laboratory results Abnormal [facility] Test Performed by [facility], [address] [place], [place] [address] [facility] LAB [facility] Procalcitoninon 07-02-2021 Procalcitonin 0.05 ng/mL Normal 0.00-0.09 [facility] Comment on above: Performed By: #### H OMCY, FOLT3, HEMDF, BMP3M #### [facility] [address] [place] [address] #### MMA2 #### The performing lab is in the report. Interpretation See Below [facility] Comment on above: PCT <0.50 = Low risk of severe sepsis and/or septic shock. PCT >2.00 = High risk of severe sepsis and/or septic shock. Procalcitonin 0.05 ng/mL 0.00 - 0.09 ng/mL [facility] Test Performed by [address] [address] [facility] LAB [facility] Interpretation See Below Normal [facility] Comment on above: Result Comment: PCT <0.50 = Low risk of severe sepsis and/or septic shock. PCT >2.00 = High risk of severe sepsis and/or septic shock. Performed By: #### H OMCY, FOLT3, HEMDF, BMP3M #### [facility] [address] [place] [address] #### MMA2 #### The performing lab is in the report. RF Swallowing Function w/ Vi martha 07-02-2021 RF Swallowing Function w/ Video Patient Name: LUIS STEELE Fluoroscopy ACCESSION EXAM DATE/TIME PROCEDURE ORDERING PROVIDER [id number] 07/02/2021 13:20 EDT RF Swallowing Function 58KAPIL PALACIOS w/ Video CPT code 33041 Reason For Exam (RF Swallowing Function w/ Video) dysphagia, pharyngeal residuals? Report SWALLOWING STUDY: INDICATION: Swallowing dysfunction. Dysphagia and cough. TECHNIQUE: Swallowing study was performed with fluoroscopic observation in association with the speech pathologist. The patient was observed to swallow thin and thick liquids along with solid material containing barium. Videotape monitoring of the fluoroscopic procedure was performed along with digital radiographs. 14 cine clips were obtained. Total fluoroscopic time was 1.5 minutes. COMPARISON: Multiple prior studies most recently CT soft tissue neck 07/01/2021 FINDINGS/IMPRESSION: During the oral phase there is oral residue with premature spillage to the vallecula and piriform sinus. During the pharyngeal phase, there is coating of the pharyngeal carballo with vallecula residuals. There is laryngeal penetration with flash trace aspiration. Please see speech therapist's report for complete findings, details, and recommendations. Esophagram was not performed due to the presence of aspiration which necessitates small quantity of liquids which is significantly limited evaluation of the esophagus. Esophagram can be performed when patient is better able to tolerate. Report Dictated on Final Dictating Physician: MD GILLETTE VLADIMIR Signed Date and Time: 07/02/2021 2:45 pm Signed by: MD GILLETTE VLADIMIR Transcribed Date and Time: 07/02/2021 2:46 Normal [facility] [employer] REPRESENTATIVE Modified Barium Swallow Studyon 07-02-2021 [employer] REPRESENTATIVE Modified Barium Swallow Study Patient Name: LUIS STEELE Fluoroscopy ACCESSION EXAM DATE/TIME PROCEDURE ORDERING PROVIDER [id number] 07/02/2021 13:20 EDT [employer]ES REPRESENTATIVE Modified Barium 5813 KAPIL ALFONSO Swallow Study Reason For Exam ([employer] SALES REPRESENTATIVE Modified Barium Swallow Study) Shortness of breath Report Patient Date of : 1970 Date: 07/02/2021 1:56 PM EDT Onset Date: 07/01/2021 Diagnosis: Dysphagia, cough Reason for Referral: Patient with increased sensation a residuals in his throat, consistent cough during and after oral intake, referred for assessment of oral pharyngeal function PMHX: COPD on 4 L nasal cannula at home, smoker, history of trach due to MRSA pneumonia, anxiety, diverticulitis, pancreatitis. Surgical history includes hernia repair, lobectomy, tonsillectomy, ureter stent placement. Patient indicated use Protonix due to stomach ulcer Food allergy: Raw tomatoes Oxygen Requirement: 4 L nasal cannula Current Diet: NPO Thickness of liquid: NPO Textures tested: Varibar pudding, darshana cracker coated with Varibar pudding Varibar [place] presented via cup. Varibar Thin Liquid presented via cup. Patient position: Seated/Lateral Subjective: Patient alert and oriented. To fluoroscopy suite via stretcher from his inpatient room. Patient concern about taste of barium. CURRENT TEST RESULTS: Oral Phase: Oral phase of swallow is fairly grossly intact. Mild oral residuals after nectar thick consistency in which patient is able to clear with a re-swallow. Spillage of thin liquids to the level the vallecula and piriform with larger bolus. Decreased spillage to valleculae and just over epiglottic with controlled small drink. Pharyngeal Phase: Patient presents with slightly decreased and delayed airway closure resulting in transient penetration observed with cup drink of thin. Subsequent larger drinks resulted in continued vocal cord penetration and flash undercoating of the vocal cords. Prep set and chin tuck was attempted to reduce airway compromise and chin tuck resulted in trace anterior tracheal aspiration during the swallow; therefore was not effective strategy to reduce vocal cord penetration/aspiration with thin liquids. Prep set continued resulted in Fluoroscopy Report intermittent vocal cord penetration. Single small bolus was most effective in reducing airway penetration. Mild intermittent vallecular and pharyngeal wall residuals after pudding Varibar. Reswallows were helpful to reduce residuals as well as a liquid chaser. Due to residuals patient does demonstrate mild decrease in pharyngeal transit. Pharyngeal Weakness/Impairment: Decreased airway closure, mild decreased pressure generation Esophageal Phase: WFL for the scope of this evaluation General Impressions: Prespill with thin liquids to the vallecula and piriform. With larger bolus, thin liquid spills to the piriform and initiation of swallow enters the laryngeal vestibule resulting in transient penetration. Larger bolus results in vocal cord penetration with flash undercoating of the vocal cords. Chin tuck attempted without success resulting in trace anterior tracheal aspiration. Generalized weakness and decreased airway closure results in decreased pharyngeal closing of the laryngeal vestibule. Decreased pharyngeal transit results in pharyngeal residuals after pudding consistency requiring a re-swallow and very small liquid chaser. Mild oral residual with nectar Varibar clearing with reswallows(s). Diet Recommendations / Strategies: Regular diet with very small drinks of thin liquids. No straws. Medications whole in pudding (prefers chocolate) Recommended Consultations / Follow Up: Speech therapy training and strengthening Goals: Patient will tolerate recommended diet without evidence of dysphagia or airway penetration. Patient will implement swallowing strategies with minimal to no cues. Patient will improve swallowing function via tongue base, airway protection/closure exercises. Prior MBS date and results: Not applicable Radiologist: Dr. Vicente Gillette Report Dictated on Final Dictating Physician: TARA KILGORE, CHRISTA/FINN AVILES Signed Date and Time: 07/02/2021 2:38 pm Signed by: TARA KILGORE, CHRISTA/FINN AVILES Transcribed Date and Time: 07/02/2021 2:39 Normal [facility] [employer] REPRESENTATIVE video swallowon 07-03-19 Patient Name: LUIS STEELE Fluoroscopy ACCESSION EXAM DATE/TIME PROCEDURE ORDERING PROVIDER [id number] 07/02/2021 13:20 EDT [employer] REPRESENTATIVE Modified Barium 5813 -KAPIL GARCÍA Swallow Study Reason For Exam ([employer] SALES REPRESENTATIVE Modified Barium Swallow Study) Shortness of breath Report Patient Date of : 1970 Date: 07/02/2021 1:56 PM EDT Onset Date: 07/01/2021 Diagnosis: Dysphagia, cough Reason for Referral: Patient with increased sensation a residuals in his throat, consistent cough during and after oral intake, referred for assessment of oral pharyngeal function PMHX: COPD on 4 L nasal cannula at home, smoker, history of trach due to MRSA pneumonia, anxiety, diverticulitis, pancreatitis. Surgical history includes hernia repair, lobectomy, tonsillectomy, ureter stent placement. Patient indicated use Protonix due to stomach ulcer Food allergy: Raw tomatoes Oxygen Requirement: 4 L nasal cannula Current Diet: NPO Thickness of liquid: NPO Textures tested: Varibar pudding, darshana cracker coated with Varibar pudding Varibar [place] presented via cup. Varibar Thin Liquid presented via cup. Patient position: Seated/Lateral Subjective: Patient alert and oriented. To fluoroscopy suite via stretcher from his inpatient room. Patient concern about taste of barium. CURRENT TEST RESULTS: Oral Phase: Oral phase of swallow is fairly grossly intact. Mild oral residuals after nectar thick consistency in which patient is able to clear with a re-swallow. Spillage of thin liquids to the level the vallecula and piriform with larger bolus. Decreased spillage to valleculae and just over epiglottic with controlled small drink. Pharyngeal Phase: Patient presents with slightly decreased and delayed airway closure resulting in transient penetration observed with cup drink of thin. Subsequent larger drinks resulted in continued vocal cord penetration and flash undercoating of the vocal cords. Prep set and chin tuck was attempted to reduce airway compromise and chin tuck resulted in trace anterior tracheal aspiration during the swallow; therefore was not effective strategy to reduce vocal cord penetration/aspiration with thin liquids. Prep set continued resulted in Fluoroscopy Report intermittent vocal cord penetration. Single small bolus was most effective in reducing airway penetration. Mild intermittent vallecular and pharyngeal wall residuals after pudding Varibar. Reswallows were helpful to reduce residuals as well as a liquid chaser. Due to residuals patient does demonstrate mild decrease in pharyngeal transit. Pharyngeal Weakness/Impairment: Decreased airway closure, mild decreased pressure generation Esophageal Phase: WFL for the scope of this evaluation General Impressions: Prespill with thin liquids to the vallecula and piriform. With larger bolus, thin liquid spills to the piriform and initiation of swallow enters the laryngeal vestibule resulting in transient penetration. Larger bolus results in vocal cord penetration with flash undercoating of the vocal cords. Chin tuck attempted without success resulting in trace anterior tracheal aspiration. Generalized weakness and decreased airway closure results in decreased pharyngeal closing of the laryngeal vestibule. Decreased pharyngeal transit results in pharyngeal residuals after pudding consistency requiring a re-swallow and very small liquid chaser. Mild oral residual with nectar Varibar clearing with reswallows(s). Diet Recommendations / Strategies: Regular diet with very small drinks of thin liquids. No straws. Medications whole in pudding (prefers chocolate) Recommended Consultations / Follow Up: Speech therapy training and strengthening Goals: Patient will tolerate recommended diet without evidence of dysphagia or airway penetration. Patient will implement swallowing strategies with minimal to no cues. Patient will improve swallowing function via tongue base, airway protection/closure exercises. Prior MBS date and results: Not applicable Radiologist: Dr. Vicente Gillette Report Dictated on --- Final --- Dictating Physician: TARA KILGORE, CHRISTA/TRACI, FINN Signed Date and Time: 07/02/2021 2:38 pm Signed by: TARA KILGORE, CHRISTA/TRACI, FINN Transcribed Date and Time: 07/02/2021 2:39 [facility] Result, Unknown Provider - 07/02/2021 Patient Name: LUIS STEELE Fluoroscopy ACCESSION EXAM DATE/TIME PROCEDURE ORDERING PROVIDER [id number] 07/02/2021 13:20 EDT [employer] REPRESENTATIVE Modified Barium 5813 -KAPIL GARCÍA Swallow Study Reason For Exam ([employer] SALES REPRESENTATIVE Modified Barium Swallow Study) Shortness of breath Report Patient Date of : 1970 Date: 07/02/2021 1:56 PM EDT Onset Date: 07/01/2021 Diagnosis: Dysphagia, cough Reason for Referral: Patient with increased sensation a residuals in his throat, consistent cough during and after oral intake, referred for assessment of oral pharyngeal function PMHX: COPD on 4 L nasal cannula at home, smoker, history of trach due to MRSA pneumonia, anxiety, diverticulitis, pancreatitis. Surgical history includes hernia repair, lobectomy, tonsillectomy, ureter stent placement. Patient indicated use Protonix due to stomach ulcer Food allergy: Raw tomatoes Oxygen Requirement: 4 L nasal cannula Current Diet: NPO Thickness of liquid: NPO Textures tested: Varibar pudding, darshana cracker coated with Varibar pudding Varibar [place] presented via cup. Varibar Thin Liquid presented via cup. Patient position: Seated/Lateral Subjective: Patient alert and oriented. To fluoroscopy suite via stretcher from his inpatient room. Patient concern about taste of barium. CURRENT TEST RESULTS: Oral Phase: Oral phase of swallow is fairly grossly intact. Mild oral residuals after nectar thick consistency in which patient is able to clear with a re-swallow. Spillage of thin liquids to the level the vallecula and piriform with larger bolus. Decreased spillage to valleculae and just over epiglottic with controlled small drink. Pharyngeal Phase: Patient presents with slightly decreased and delayed airway closure resulting in transient penetration observed with cup drink of thin. Subsequent larger drinks resulted in continued vocal cord penetration and flash undercoating of the vocal cords. Prep set and chin tuck was attempted to reduce airway compromise and chin tuck resulted in trace anterior tracheal aspiration during the swallow; therefore was not effective strategy to reduce vocal cord penetration/aspiration with thin liquids. Prep set continued resulted in Fluoroscopy Report intermittent vocal cord penetration. Single small bolus was most effective in reducing airway penetration. Mild intermittent vallecular and pharyngeal wall residuals after pudding Varibar. Reswallows were helpful to reduce residuals as well as a liquid chaser. Due to residuals patient does demonstrate mild decrease in pharyngeal transit. Pharyngeal Weakness/Impairment: Decreased airway closure, mild decreased pressure generation Esophageal Phase: WFL for the scope of this evaluation General Impressions: Prespill with thin liquids to the vallecula and piriform. With larger bolus, thin liquid spills to the piriform and initiation of swallow enters the laryngeal vestibule resulting in transient penetration. Larger bolus results in vocal cord penetration with flash undercoating of the vocal cords. Chin tuck attempted without success resulting in trace anterior tracheal aspiration. Generalized weakness and decreased airway closure results in decreased pharyngeal closing of the laryngeal vestibule. Decreased pharyngeal transit results in pharyngeal residuals after pudding consistency requiring a re-swallow and very small liquid chaser. Mild oral residual with nectar Varibar clearing with reswallows(s). Diet Recommendations / Strategies: Regular diet with very small drinks of thin liquids. No straws. Medications whole in pudding (prefers chocolate) Recommended Consultations / Follow Up: Speech therapy training and strengthening Goals: Patient will tolerate recommended diet without evidence of dysphagia or airway penetration. Patient will implement swallowing strategies with minimal to no cues. Patient will improve swallowing function via tongue base, airway protection/closure exercises. Prior MBS date and results: Not applicable Radiologist: Dr. Vicente Gillette Report Dictated on --- Final --- Dictating Physician: TARA KILGORE, CHRISTA/[employer] SALES REPRESENTATIVEFINN Signed Date and Time: 07/02/2021 2:38 pm Signed by: TARA KILGORE, CHRISTA/FINN AVILES Transcribed Date and Time: 07/02/2021 2:39 [facility] Work Phone: [facility] Work Phone: Sed Rateon 07-02-2021 Sed Rate 46 mm/h High 0-10 [facility] Comment on above: Performed By: #### H OMCY, FOLT3, HEMDF, BMP3M #### [facility] [address] [place] [address] #### MMA2 #### The performing lab is in the report. Sedimentation Rateon 022 Interpretation and review of laboratory results Abnormal [facility] Sed Rate 46 mm/h High 0 - 10 mm/h [facility] Test Performed by [facility], [address], [place], [place] [id number] [place] [address] LAB [facility] TSHon 07-02-2021 TSH Qn 1.574 u[IU]/mL 0.465 - 4.680 u[IU]/mL [facility] Test Performed by [facility], [address] [place], [place] [id number] [place] [address] LAB [facility] Thyroid Stim. Hormoneon 06-13 Thyroid Stim. Hormone 1.574 u[IU]/mL Normal 0.465-4.68 0 [facility] Comment on above: Performed By: #### H OMCY, FOLT3, HEMDF, BMP3M #### [facility] [address] [place] [address] #### MMA2 #### The performing lab is in the report. Vitamin B12on 07-02-2021 Cobalamin (Vitamin B12) [Mass/Vol] 235 pg/mL Low 239-931 [facility] Comment on above: Performed By: #### H OMCY, FOLT3, HEMDF, BMP3M #### [place] [address] [place] [address] #### MMA2 #### The performing lab is in the report. Cobalamin (Vitamin B12) [Mass/Vol] 235 pg/mL Low 239 - 931 pg/mL [facility] Interpretation and review of laboratory results Abnormal [facility] Test Performed by [facility], [facility] [address] [place], [place] [id number] [place] [address] LAB [facility] Basic Metabolic Panelon 06-13 Anion gap [Moles/Vol] 6 mmol/L Normal 3-13 [facility] Comment on above: Performed By: #### H OMCY, FOLT3, HEMDF, BMP3M #### [facility] [address] [place] [address] #### MMA2 #### The performing lab is in the report. Calcium [Mass/Vol] 9.3 mg/dL Normal 8.4-10.4 [facility] Comment on above: Performed By: #### H OMCY, FOLT3, HEMDF, BMP3M #### [place] [address] [place] [address] #### MMA2 #### The performing lab is in the report. CO2 [Moles/Vol] 32 mmol/L High 22-30 [facility] Comment on above: Performed By: #### H OMCY, FOLT3, HEMDF, BMP3M #### [facility] [address] [place] [address] #### MMA2 #### The performing lab is in the report. Glucose [Mass/Vol] 141 mg/dL High 70-100 [facility] Comment on above: Performed By: #### H OMCY, FOLT3, HEMDF, BMP3M #### [facility] [address] [place] [address] #### MMA2 #### The performing lab is in the report. Urea nitrogen [Mass/Vol] 18 mg/dL High 7-17 [facility] Comment on above: Performed By: #### H OMCY, FOLT3, HEMDF, BMP3M #### [facility] [address] [place] [address] #### MMA2 #### The performing lab is in the report. Creatinine [Mass/Vol] 0.99 mg/dL Normal 0.52-1.25 [facility] Comment on above: Performed By: #### H OMCY, FOLT3, HEMDF, BMP3M #### [facility] [address] [place] [address] #### MMA2 #### The performing lab is in the report. GFR/1.73 sq M.predicted among blacks MDRD (S/P/Bld) [Vol rate/Area] mL/min/{1.73_m2} Normal >60 [facility] Comment on above: Performed By: #### H OMCY, FOLT3, HEMDF, BMP3M #### [facility] [address] [place] [place] [address] #### MMA2 #### The performing lab is in the report. GFR/1.73 sq M.predicted among non-blacks MDRD (S/P/Bld) [Vol rate/Area] 88.0 mL/min/{1.73_m2} Normal >60 [facility] Comment on above: Result Comment: KDIG O guidelines provide the following GFR categories: Stage GFR(ml/min/1.73 m2) Terms G1 >=90 Normal or high G2 60-89 Mildly decreased* G3a 45-59 Mildly to moderately decreased G3b 30-44 Moderately to severely decreased G4 15-29 Severely decreased G5 <15 Kidney failure *Relative to young adult level. In the absence of evidence of kidney damage, neither GFR category G1 nor G2 fulfill the criteria for CKD. The CKD-EPI equation is validated in individuals 18 years of age and older. Currently the best equation for estimating glomerular filtration rate (GFR) from serum creatinine in children is the Bedside Balbuena equation. It is less accurate in patients with extremes of muscle mass, restriction of dietary protein, ingestion of creatine, extra-renal metabolism of creatinine, or treatment with medications that affect renal tubular creatinine secretion. Performed By: #### H OMCY, FOLT3, HEMDF, BMP3M #### [facility] [address] [place] [address] #### MMA2 #### The performing lab is in the report. Potassium [Moles/Vol] 5.6 mmol/L High 3.5-5.1 [facility] Comment on above: Result Comment: Slig htly hemolysed, interpret with caution. Performed By: #### H OMCY, FOLT3, HEMDF, BMP3M #### [facility] [address] [place] [address] #### MMA2 #### The performing lab is in the report. Sodium [Moles/Vol] 136 mmol/L Normal 135-145 [facility] Comment on above: Performed By: #### H OMCY, FOLT3, HEMDF, BMP3M #### [facility] [address] [place] [address] #### MMA2 #### The performing lab is in the report. Chloride [Moles/Vol] 98 mmol/L Normal 98-107 [facility] Comment on above: Performed By: #### H OMCY, FOLT3, HEMDF, BMP3M #### [facility] [address] [place] [address] #### MMA2 #### The performing lab is in the report. Anion gap [Moles/Vol] 6 mmol/L 3 - 13 mmol/L [facility] Calcium [Mass/Vol] 9.3 mg/dL 8.4 - 10. 4 mg/dL [facility] Chloride [Moles/Vol] 98 mmol/L 98 - 10 7 mmol/L [facility] CO2 [Moles/Vol] 32 mmol/L High 22 - 30 mmol/L [facility] Creatinine [Mass/Vol] 0.99 mg/dL 0.52 - 1.25 mg/dL [facility] EGFR IF NonAfrican Citizen Of [place] 88.0 mL/min >60 [facility] Comment on above: KDIGO guidelines pro vide the following GFR categories: Stage GFR(ml/min/1.73 m2) Terms G1 >=90 Normal or high G2 60-89 Mildly decreased* G3a 45-59 Mildly to moderately decreased G3b 30-44 Moderately to severely decreased G4 15-29 Severely decreased G5 <15 Kidney failure *Relative to young adult level. In the absence of evidence of kidney damage, neither GFR category G1 nor G2 fulfill the criteria for CKD. The CKD-EPI equation is validated in individuals 18 years of age and older. Currently the best equation for estimating glomerular filtration rate (GFR) from serum creatinine in children is the Bedside Balbuena equation. It is less accurate in patients with extremes of muscle mass, restriction of dietary protein, ingestion of creatine, extra-renal metabolism of creatinine, or treatment with medications that affect renal tubular creatinine secretion. GFR/1.73 sq M.predicted among blacks MDRD (S/P/Bld) [Vol rate/Area] mL/min/{1.73_m2} >60 mL/min [facility] Glucose [Mass/Vol] 141 mg/dL High 70 - 100 mg/dL [facility] Interpretation and review of laboratory results Abnormal [facility] Potassium [Moles/Vol] 5.6 mmol/L High 3.5 - 5.1 mmol/L [facility] Comment on above: Slightly hemolysed, interpret with caution. Sodium [Moles/Vol] 136 mmol/L 135 - 145 mmol/L [facility] Urea nitrogen (BldV) [Mass/Vol] 18 mg/dL High 7 - 17 mg/dL [facility] Test Performed by [facility] [place] , [address] LAB [facility] Brain Natriuretic Peptideon 07-01-2021 Natriuretic peptide B (Bld) [Mass/Vol] 22 pg/mL 0 - 125 pg/mL [facility] Comment on above: Slightly hemolysed, interpret with caution. CR Chest Portableon 07-02-19 CR Chest Portable Patient Name: LUIS STEELE Diagnostic Radiology ACCESSION EXAM DATE/TIME PROCEDURE ORDERING PROVIDER [id number] 07/01/2021 06:42 EDT CR Chest Portable 5803 -HANNAH, RADHAMES CPT code 18734 Reason For Exam (CR Chest Portable) SOB Report EXAMINATION: PORTABLE CHEST RADIOGRAPH CLINICAL INDICATION: Shortness of breath TECHNIQUE: Portable AP COMPARISON:CT chest 04/08/2021 FINDINGS/IMPRESSION: Support lines and tubes: None. Heart/Mediastinum: Normal Lungs/Pleura: Hyperinflation with severe emphysematous changes and areas of scarring consistent with COPD. No focal consolidation. No pleural effusions. No pneumothorax. Bones: No acute osseous abnormality. Report Dictated on Final Dictating Physician: MD FIDELINA, AJITH ROSSI Signed Date and Time: 07/01/2021 7:16 am Signed by: MD FIDELINA, AJITH ROSSI Transcribed Date and Time: 07/01/2021 7:17 Normal [facility] CT SOFT TISSUE NECK W CONTRA STon 07-01-2021 Patient Name: LUIS STEELE Computed Tomography ACCESSION EXAM DATE/TIME PROCEDURE ORDERING PROVIDER [id number] 07/01/2021 06:[address] Soft Tissue Neck w/ 5803 -HANNAH, RADHAMES Contrast CPT code 53641 Q9967 Reason For Exam (CT Soft Tissue Neck w/ Contrast) difficulty swallowing Report EXAM: CT NECK WITH CONTRAST INDICATIONS: difficulty swallowing COMPARISON: None TECHNIQUE: Helically acquired axial CT images of the neck after administration of intravenous contrast, with sagittal and coronal reformats. FINDINGS: SOFT TISSUES: No evidence of any solid or cystic masses in the neck. ORAL CAVITY: Oral cavity appears normal. PHARYNX/HYPOPHARYNX/LA RYNX: Normal mucosal contours. No abnormal enhancement. SALIVARY GLANDS: The bilateral parotid, submandibular, and sublingual glands appear unremarkable. LYMPH NODES: There is no lymphadenopathy by imaging size criteria. THYROID GLAND: Unremarkable. VASCULATURE: Unremarkable. VISUALIZED BRAIN: Limited evaluation demonstrates no acute abnormalities. ORBITS: Unremarkable. BONES: Visualized osseous structures demonstrate no acute abnormalities. The visualized paranasal sinuses, tympanic cavities, and mastoid air cells are clear. UPPER CHEST: Severe emphysematous changes. CONCLUSION: Unremarkable CT of the neck. No evidence of deep space infection. Computed Tomography Report Report Dictated on --- Final --- Dictating Physician: MD FREEMAN WASSIM OSAMA Signed Date and Time: 07/01/2021 7:34 am Signed by: MD FREEMAN WASSIM OSAMA Transcribed Date and Time: 07/01/2021 7:35 [facility] Ajith Freeman MD - 07/01/2021 Patient Name: LUIS STEELE Computed Tomography ACCESSION EXAM DATE/TIME PROCEDURE ORDERING PROVIDER [id number] 07/01/2021 06:[address] Soft Tissue Neck w/ 5803 -HANNAH, RADHAMES Contrast CPT code 00402 Q9967 Reason For Exam (CT Soft Tissue Neck w/ Contrast) difficulty swallowing Report EXAM: CT NECK WITH CONTRAST INDICATIONS: difficulty swallowing COMPARISON: None TECHNIQUE: Helically acquired axial CT images of the neck after administration of intravenous contrast, with sagittal and coronal reformats. FINDINGS: SOFT TISSUES: No evidence of any solid or cystic masses in the neck. ORAL CAVITY: Oral cavity appears normal. PHARYNX/HYPOPHARYNX/LA RYNX: Normal mucosal contours. No abnormal enhancement. SALIVARY GLANDS: The bilateral parotid, submandibular, and sublingual glands appear unremarkable. LYMPH NODES: There is no lymphadenopathy by imaging size criteria. THYROID GLAND: Unremarkable. VASCULATURE: Unremarkable. VISUALIZED BRAIN: Limited evaluation demonstrates no acute abnormalities. ORBITS: Unremarkable. BONES: Visualized osseous structures demonstrate no acute abnormalities. The visualized paranasal sinuses, tympanic cavities, and mastoid air cells are clear. UPPER CHEST: Severe emphysematous changes. CONCLUSION: Unremarkable CT of the neck. No evidence of deep space infection. Computed Tomography Report Report Dictated on --- Final --- Dictating Physician: MD FREEMAN WASSIM OSAMA Signed Date and Time: 07/01/2021 7:34 am Signed by: MD FREEMAN WASSIM OSAMA Transcribed Date and Time: 07/01/2021 7:35 [facility] Work Phone: Radiology Study observation (narrative) [facility] Work Phone: CT SOFT TISSUE NECK W CONTRA STOrdered By: Ajith Freeman on 07-01-2021 [facility] Work Phone: CT Soft Tissue Neck w/ Contr salma 07-01-2021 CT Soft Tissue Neck w/ Contrast Patient Name: LUIS STEELE Computed Tomography ACCESSION EXAM DATE/TIME PROCEDURE ORDERING PROVIDER [id number] 07/01/2021 06:[address] Soft Tissue Neck w/ 5803 -HANNAH, RADHAMES Contrast CPT code 37337 Q9967 Reason For Exam (CT Soft Tissue Neck w/ Contrast) difficulty swallowing Report EXAM: CT NECK WITH CONTRAST INDICATIONS: difficulty swallowing COMPARISON: None TECHNIQUE: Helically acquired axial CT images of the neck after administration of intravenous contrast, with sagittal and coronal reformats. FINDINGS: SOFT TISSUES: No evidence of any solid or cystic masses in the neck. ORAL CAVITY: Oral cavity appears normal. PHARYNX/HYPOPHARYNX/LA RYNX: Normal mucosal contours. No abnormal enhancement. SALIVARY GLANDS: The bilateral parotid, submandibular, and sublingual glands appear unremarkable. LYMPH NODES: There is no lymphadenopathy by imaging size criteria. THYROID GLAND: Unremarkable. VASCULATURE: Unremarkable. VISUALIZED BRAIN: Limited evaluation demonstrates no acute abnormalities. ORBITS: Unremarkable. BONES: Visualized osseous structures demonstrate no acute abnormalities. The visualized paranasal sinuses, tympanic cavities, and mastoid air cells are clear. UPPER CHEST: Severe emphysematous changes. CONCLUSION: Unremarkable CT of the neck. No evidence of deep space infection. Computed Tomography Report Report Dictated on Final Dictating Physician: MD FREEMAN WASSIM OSAMA Signed Date and Time: 07/01/2021 7:34 am Signed by: MALAK, MD, WASSIM OSAMA Transcribed Date and Time: 07/01/2021 7:35 Normal [facility] Complete Urinalysison 2021 Appearance (U) Clear Normal Clear [facility] Comment on above: Result Comment: . Performed By: #### H OMCY, FOLT3, HEMDF, BMP3M #### [facility] [address] [place] [address] #### MMA2 #### The performing lab is in the report. Bilirubin,Urine Negative Normal Negative [facility] Comment on above: Result Comment: . Performed By: #### H OMCY, FOLT3, HEMDF, BMP3M #### [facility] [address] [place] [address] #### MMA2 #### The performing lab is in the report. Color (U) COLORLESS Normal Lt. Yellow [facility] Comment on above: Result Comment: . Performed By: #### H OMCY, FOLT3, HEMDF, BMP3M #### [facility] [address] [place] [address] #### MMA2 #### The performing lab is in the report. Glucose Ql (U) Normal Normal Normal (<70) [facility] Comment on above: Result Comment: . Performed By: #### H OMCY, FOLT3, HEMDF, BMP3M #### [facility] [address] [place] [address] #### MMA2 #### The performing lab is in the report. Ketone,Urine Negative Normal Negative [facility] Comment on above: Result Comment: . Performed By: #### H OMCY, FOLT3, HEMDF, BMP3M #### [facility] [address] [place] [address] #### MMA2 #### The performing lab is in the report. Leukocytes,Urine Negative Normal Negative [facility] Comment on above: Result Comment: . Performed By: #### H OMCY, FOLT3, HEMDF, BMP3M #### [facility] [address] [place] [address] #### MMA2 #### The performing lab is in the report. Nitrites,Urine Negative Normal Negative [facility] Comment on above: Result Comment: . Performed By: #### H OMCY, FOLT3, HEMDF, BMP3M #### [facility] [address] [place] [address] #### MMA2 #### The performing lab is in the report. Occult Blood,Urine Negative Normal Negative [facility] Comment on above: Result Comment: . Performed By: #### H OMCY, FOLT3, HEMDF, BMP3M #### [place] [address] [place] [address] #### MMA2 #### The performing lab is in the report. pH,Urine 6.5 Normal 5.0-8.0 [facility] Comment on above: Result Comment: . Performed By: #### H OMCY, FOLT3, HEMDF, BMP3M #### [address] [place] [address] #### MMA2 #### The performing lab is in the report. Specific [place],Urine 1.011 Normal 1.005 - 1.030 [facility] Comment on above: Result Comment: . Performed By: #### H OMCY, FOLT3, HEMDF, BMP3M #### [place] [address] [place] [address] #### MMA2 #### The performing lab is in the report. Total Protein,Urine Negative Normal Negative [facility] Comment on above: Result Comment: . Performed By: #### H OMCY, FOLT3, HEMDF, BMP3M #### [place] [address] [place] [address] #### MMA2 #### The performing lab is in the report. Urobilinogen,Urine Normal Normal Normal (0-1) [facility] Comment on above: Result Comment: . Performed By: #### H OMCY, FOLT3, HEMDF, BMP3M #### [place] [address] [place] [address] #### MMA2 #### The performing lab is in the report. EKG 12 Lead - Chest Painon 0 07-01-2021 [facility] Test Date: 2021-07-01 Pat Name: LUIS CALL Department: 2BED Room: 07 Gender: M Bank Appraiser: WINSTON : 1970 Requested By: RADHAMES YOUNG Order Number: [id number] Reading MD: Radhames Young Measurements Intervals [place] Rate: 101 P: 76 AL: 128 QRS: 81 QRSD: 80 T: 266 QT: 380 QTc: 493 Interpretive Statements SINUS TACHYCARDIA RIGHT ATRIAL ABNORMALITY NONSPECIFIC T ABNORMALITIES, DIFFUSE LEADS BORDERLINE PROLONGED QT INTERVAL BASELINE WANDER IN LEAD(S) V3 Compared to ECG 04/04/2021 20:17:35 T-wave abnormality now present ST (T wave) deviation no longer present Electronically Signed On 07-01-2021 6:48:13 EDT by Radhames Young [facility] Radhames Young M D - 07/01/2021 [facility] Test Date: 2021-07-01 Pat Name: LUIS CALL Department: 2BED Room: 07 Gender: M Bank Appraiser: WINSTON : 1970 Requested By: RADHAMES YOUNG Order Number: [id number] Reading MD: Radhames Young Measurements Intervals [place] Rate: 101 P: 76 AL: 128 QRS: 81 QRSD: 80 T: 266 QT: 380 QTc: 493 Interpretive Statements SINUS TACHYCARDIA RIGHT ATRIAL ABNORMALITY NONSPECIFIC T ABNORMALITIES, DIFFUSE LEADS BORDERLINE PROLONGED QT INTERVAL BASELINE WANDER IN LEAD(S) V3 Compared to ECG 04/04/2021 20:17:35 T-wave abnormality now present ST (T wave) deviation no longer present Electronically Signed On 07-01-2021 6:48:13 EDT by Radhames Young [facility] Work Phone: [facility] Work Phone: Hemogramon 07-01-2021 Erythrocyte distribution width (RBC) [Ratio] 14.6 % High 11.5-14.5 [facility] Comment on above: Performed By: #### H EMD, BMP3M #### [facility] [employer] [facility] [address] [place] [address] Hematocrit (Bld) [Volume fraction] 42.9 % Normal 40.0-52.0 [facility] Comment on above: Performed By: #### H EMDF, BMP3M #### [facility] [address] [place] [address] Hemoglobin (Bld) [Mass/Vol] 14.3 g/dL Normal 13.0-18.0 [facility] Comment on above: Performed By: #### H EMDF, BMP3M #### [facility] [address] [place] [address] MCH (RBC) [Entitic mass] 29.6 pg Normal 26.0-34.0 [facility] Comment on above: Performed By: #### H EMDF, BMP3M #### [facility] [address] [place] [address] MCHC 33.3 % Normal 32.0-36.0 [facility] Comment on above: Performed By: #### H EMDF, BMP3M #### [facility] [address] [place] [address] MCV (RBC) [Entitic vol] 88.8 fL Normal 80.0-98.0 [facility] Comment on above: Performed By: #### H EMDF, BMP3M #### [facility] [address] [place] [address] Platelet mean volume (Bld) [Entitic vol] 7.4 fL Normal 7.4-10.4 [facility] Comment on above: Performed By: #### H EMDF, BMP3M #### [facility] [address] [place] [address] Platelets (Bld) [#/Vol] 460 10*3/uL High 140-440 [facility] Comment on above: Performed By: #### H EMDF, BMP3M #### [facility] [employer] [facility] [address] [place] [address] RBC (Bld) [#/Vol] 4.83 10*6/uL Normal 4.40-5.90 [facility] Comment on above: Performed By: #### H EMDF, BMP3M #### [facility] [employer] [facility] [address] [place] [address] WBC (Bld) [#/Vol] 22.1 10*3/uL High 3.6-10.7 [facility] Comment on above: Performed By: #### H BURKE BMP3M #### [facility] [address] [place] [address] Hemogram (CBC)on 07-01-2021 Hematocrit (Bld) [Volume fraction] 42.9 % 40.0 - 52.0 % [facility] Hemoglobin.gastrointe stinal spec 1 Ql (Stl) 14.3 g/dL 13.0 - 18.0 g/dL [facility] Interpretation and review of laboratory results Abnormal [facility] MCH (RBC) [Entitic mass] 29.6 pg 26.0 - 34.0 pg [facility] MCHC (RBC) [Mass/Vol] 33.3 % 32.0 - 36.0 % [facility] MCV (RBC) [Entitic vol] 88.8 fL 80.0 - 98.0 fL [facility] Platelet distribution width (Bld) [Ratio] 14.6 % High 11.5 - 14.5 % [facility] Platelet mean volume (Bld) [Entitic vol] 7.4 fL 7.4 - 10.4 fL [facility] Platelets (Bld) [#/Vol] 460 10*3/uL High 140 - 440 10*3/uL [facility] RBC (Bld) [#/Vol] 4.83 10*6/uL 4.40 - 5.9 0 10*6/uL [facility] WBC (Bld) [#/Vol] 22.1 10*3/uL High 3.6 - 10.7 10*3/uL [facility] Test Performed by [facility] [employer] [facility], [address] , [address] LAB [facility] Lactate, Sepsison 07-01-2021 Lactate [Moles/Vol] 1.1 mmol/L 0.7 - 2. 0 mmol/L [facility] Test Performed by [facility] [employer] [facility], [address] , [address] LAB [facility] Lactic Acid, Sepsison 2021 Lactate [Moles/Vol] 1.1 mmol/L Normal 0.7-2.0 [facility] Comment on above: Performed By: #### L ACTS #### [facility] [address] [place] [address] NT pro BNPon 07-01-2021 Natriuretic peptide B (Bld) [Mass/Vol] 22 pg/mL Normal 0-125 [facility] Comment on above: Result Comment: Slig htly hemolysed, interpret with caution. Performed By: #### H OMCY, FOLT3, HEMDF, BMP3M #### [facility] [address] [place] [address] #### MMA2 #### The performing lab is in the report. No Panel Informationon 07-01 Test Performed by [facility], [address] , [address] LAB [facility] Troponin Ion 07-01-2021 Troponin I.cardiac [Mass/Vol] 0.017 ng/mL Normal 0.000-0.034 [facility] Comment on above: Result Comment: Slig htly hemolysed, interpret with caution. . Performed By: #### H OMCY, FOLT3, HEMDF, BMP3M #### [facility] [address] [place] [address] #### MMA2 #### The performing lab is in the report. Troponin x1on 07-01-2021 Troponin I.cardiac [Mass/Vol] 0.017 ng/mL 0.000 - 0.034 ng/mL [facility] Comment on above: Slightly hemolysed, interpret with caution. . Urinalysison 07-01-2021 Appearance (U) Clear Clear NA [facility] Comment on above: . Bilirubin Urine Negative Negative mg/dL [facility] Comment on above: . Color (U) COLORLESS Lt. Yellow NA [facility] Comment on above: . Glucose, Ur Normal Normal (<70) mg/dL [facility] Comment on above: . Ketones Ql (U) Negative Negative mg/dL [facility] Comment on above: . LEUKOCYTES, UA Negative Negative Peter/uL [facility] Comment on above: . Nitrite, Urine Negative Negative NA [facility] Comment on above: . Occult Blood,Urine Negative Negative mg/dL [facility] Comment on above: . pH (U) 6.5 [pH] [facility] Comment on above: . Specific [place], Urine 1.011 [facility] Comment on above: . Total Protein, Urine Negative Negativ e mg/dL [facility] Comment on above: . Urobilinogen, Urine Normal Normal ( 0-1) mg/dL [facility] Comment on above: . Test Performed by [facility], [address] , [address] LAB [facility] XR CHEST PORTABLEon 07-02-19 Patient Name: LUIS STEELE Diagnostic Radiology ACCESSION EXAM DATE/TIME PROCEDURE ORDERING PROVIDER [id number] 07/01/2021 06:42 EDT CR Chest Portable 5803 -HANNAH, RADHAMES CPT code 60511 Reason For Exam (CR Chest Portable) SOB Report EXAMINATION: PORTABLE CHEST RADIOGRAPH CLINICAL INDICATION: Shortness of breath TECHNIQUE: Portable AP COMPARISON:CT chest 04/08/2021 FINDINGS/IMPRESSION: Support lines and tubes: None. Heart/Mediastinum: Normal Lungs/Pleura: Hyperinflation with severe emphysematous changes and areas of scarring consistent with COPD. No focal consolidation. No pleural effusions. No pneumothorax. Bones: No acute osseous abnormality. Report Dictated on --- Final --- Dictating Physician: MD FREEMAN WASSIM OSAMA Signed Date and Time: 07/01/2021 7:16 am Signed by: MD FREEMAN WASSIM OSAMA Transcribed Date and Time: 07/01/2021 7:17 [facility] Ajith Freeman MD - 07/01/2021 Patient Name: LUIS STEELE Diagnostic Radiology ACCESSION EXAM DATE/TIME PROCEDURE ORDERING PROVIDER [id number] 07/01/2021 06:42 EDT CR Chest Portable 5803 -HANNAH, RADHAMES CPT code 59061 Reason For Exam (CR Chest Portable) SOB Report EXAMINATION: PORTABLE CHEST RADIOGRAPH CLINICAL INDICATION: Shortness of breath TECHNIQUE: Portable AP COMPARISON:CT chest 04/08/2021 FINDINGS/IMPRESSION: Support lines and tubes: None. Heart/Mediastinum: Normal Lungs/Pleura: Hyperinflation with severe emphysematous changes and areas of scarring consistent with COPD. No focal consolidation. No pleural effusions. No pneumothorax. Bones: No acute osseous abnormality. Report Dictated on --- Final --- Dictating Physician: MD FIDELINA, AJITH ROSSI Signed Date and Time: 07/01/2021 7:16 am Signed by: MD FREEMAN WASSIM OSAMA Transcribed Date and Time: 07/01/2021 7:17 [facility] Work Phone: [facility] Work Phone: Radiology Study observation (narrative) [facility] Work Phone: .Auto Diffon 06-21-2021 Basophil, Absolute 0.10 10 3/mcL Normal 0.00-0.19 [facility] ([place]) Comment on above: Performed By: #### C BC, ADIFF, ANEU, BMP, GFR, PBNP, TROPHS #### [address] [address] Basophils/100 WBC (Bld) 0.6 % Normal 0.0-2.5 [facility] ([place]) Comment on above: Performed By: #### C BC, ADIFF, ANEU, BMP, GFR, PBNP, TROPHS #### [address] [address] Eosinophil, Absolute 0.30 10 3/mcL Normal 0.00-0.40 [facility] ([place]) Comment on above: Performed By: #### C BC, ADIFF, ANEU, BMP, GFR, PBNP, TROPHS #### [address] [address] Eosinophils/100 WBC (Bld) 2.5 % Normal 0.0-7.0 [facility] ([place] Comment on above: Performed By: #### C BC, ADIFF, ANEU, BMP, GFR, PBNP, TROPHS #### [address] [address] Lymphocyte, Absolute 1.90 10 3/mcL Normal 0.77-3.85 A [facility] ([place]) Comment on above: Performed By: #### C BC, ADIFF, ANEU, BMP, GFR, PBNP, TROPHS #### [address] [address] Lymphocytes/100 WBC (Bld) 14.8 % Normal 10.0-50.0 [facility] ([place] Comment on above: Performed By: #### C BC, ADIFF, ANEU, BMP, GFR, PBNP, TROPHS #### [address] [address] Monocyte, Absolute 1.10 10 3/mcL High 0.15-1.00 [facility] ([place]) Comment on above: Performed By: #### C BC, ADIFF, ANEU, BMP, GFR, PBNP, TROPHS #### [address] [address] Monocytes/100 WBC (Bld) 8.4 % Normal 1.7-13.0 [facility] ([place] Comment on above: Performed By: #### C BC, ADIFF, ANEU, BMP, GFR, PBNP, TROPHS #### [address] [address] Neutrophils/100 WBC (Bld) 73.7 % Normal 37.0-80.0 [facility] ([place] Comment on above: Performed By: #### C BC, ADIFF, ANEU, BMP, GFR, PBNP, TROPHS #### [address] [address] .GFRon 06-21-2021 GFR 97 ml/min/1.73sqm Normal [facility] ([place]) Comment on above: Result Comment: GFR Population mean for , Non- Americans Ages 20-29 = 116 mL/min/1.73 sq.m. Ages 30-39 = 107 mL/min/1.73 sq.m. Ages 40-49 = 99 mL/min/1.73 sq.m. Ages 50-59 = 93 mL/min/1.73 sq.m. Ages 60-69 = 85 mL/min/1.73 sq.m. Ages 70+ = 75 mL/min/1.73 sq.m. Chronic Kidney Disease: Less than 60 mL/min/1.73 square meters End Stage Renal Disease: Less than 15 mL/min/1.73 square meters Performed By: #### C BC, ADIFF, ANEU, BMP, GFR, PBNP, TROPHS #### [address] [address] GFR Non- 80 ml/min/1.73sqm Normal [facility] Comment on above: Result Comment: GFR Population mean for , Non- Americans Ages 20-29 = 116 mL/min/1.73 sq.m. Ages 30-39 = 107 mL/min/1.73 sq.m. Ages 40-49 = 99 mL/min/1.73 sq.m. Ages 50-59 = 93 mL/min/1.73 sq.m. Ages 60-69 = 85 mL/min/1.73 sq.m. Ages 70+ = 75 mL/min/1.73 sq.m. Chronic Kidney Disease: Less than 60 mL/min/1.73 square meters End Stage Renal Disease: Less than 15 mL/min/1.73 square meters Performed By: #### C BC, ADIFF, ANEU, BMP, GFR, PBNP, TROPHS #### [address] [address] .NEUABSon 06-21-2021 Neutrophil, Absolute 9.40 10 3/mcL High 2.85-6.16 A [facility] ([place]) Comment on above: Performed By: #### C BC, ADIFF, ANEU, BMP, GFR, PBNP, TROPHS #### [address] [address] BMPon 06-21-2021 BUN/Creatinine Ratio 14 ratio Normal 7-27 [facility] ([place]) Comment on above: Performed By: #### C BC, ADIFF, ANEU, BMP, GFR, PBNP, TROPHS #### [address] [address] Calcium [Mass/Vol] 9.6 mg/dL Normal 8.4-10.2 [facility] ([place]) Comment on above: Performed By: #### C BC, ADIFF, ANEU, BMP, GFR, PBNP, TROPHS #### [address] [address] Chloride [Moles/Vol] 99 mmol/L Normal 98-107 [facility] ([place] Comment on above: Performed By: #### C BC, ADIFF, ANEU, BMP, GFR, PBNP, TROPHS #### [address] [address] CO2 [Moles/Vol] 30 mmol/L High 22-29 [facility] ([place] Comment on above: Performed By: #### C BC, ADIFF, ANEU, BMP, GFR, PBNP, TROPHS #### [address] [address] Creatinine [Mass/Vol] 0.99 mg/dL Normal 0.70-1.30 [facility] ([place]) Comment on above: Performed By: #### C BC, ADIFF, ANEU, BMP, GFR, PBNP, TROPHS #### [address] [address] Electrolyte Balance 11.0 mEq/L Normal 4.0-15.0 [facility] ([place]) Comment on above: Performed By: #### C BC, ADIFF, ANEU, BMP, GFR, PBNP, TROPHS #### [address] [address] Glucose [Mass/Vol] 122 mg/dL High 70-105 [facility] ([place]) Comment on above: Performed By: #### C BC, ADIFF, ANEU, BMP, GFR, PBNP, TROPHS #### [address] [address] Potassium [Moles/Vol] 3.8 mmol/L Normal 3.5-5.1 [facility] ([place]) Comment on above: Performed By: #### C BC, ADIFF, ANEU, BMP, GFR, PBNP, TROPHS #### [address] [address] Sodium [Moles/Vol] 140 mmol/L Normal 136-145 [facility] ([place]) Comment on above: Performed By: #### C BC, ADIFF, ANEU, BMP, GFR, PBNP, TROPHS #### [place] [address] Urea nitrogen [Mass/Vol] 14 mg/dL Normal 7-18 [facility] ([place] Comment on above: Performed By: #### C BC, ADIFF, ANEU, BMP, GFR, PBNP, TROPHS #### [place] [address] CBCon 06-21-2021 Erythrocyte distribution width (RBC) [Ratio] 14.5 % Normal 11.5-14.5 [facility] ([place] Comment on above: Performed By: #### C BC, ADIFF, ANEU, BMP, GFR, PBNP, TROPHS #### [place] [address] Hematocrit (Bld) [Volume fraction] 42.6 % Normal 42.0-52.0 [facility] ([place] Comment on above: Performed By: #### C BC, ADIFF, ANEU, BMP, GFR, PBNP, TROPHS #### [place] [address] Hgb 13.9 G/dL Low 14.0-18.0 [facility] Comment on above: Performed By: #### C BC, ADIFF, ANEU, BMP, GFR, PBNP, TROPHS #### [place] [address] MCH (RBC) [Entitic mass] 29.4 pg Normal 27.0-31.2 [facility] ([place] Comment on above: Performed By: #### C BC, ADIFF, ANEU, BMP, GFR, PBNP, TROPHS #### [place] [address] MCHC 32.7 G/dL Normal 31.8-35.4 [facility] [place] Comment on above: Performed By: #### C BC, ADIFF, ANEU, BMP, GFR, PBNP, TROPHS #### [address] [address] MCV (RBC) [Entitic vol] 90.1 fL Normal 80.0-94.0 [facility] ([place] Comment on above: Performed By: #### C BC, ADIFF, ANEU, BMP, GFR, PBNP, TROPHS #### [address] [address] Platelet 440 10 3/mcL High 130-400 [facility] ([place] Comment on above: Performed By: #### C BC, ADIFF, ANEU, BMP, GFR, PBNP, TROPHS #### [address] [address] Platelet mean volume (Bld) [Entitic vol] 7.8 fL Normal 7.4-10.4 [facility] ([place] Comment on above: Performed By: #### C BC, ADIFF, ANEU, BMP, GFR, PBNP, TROPHS #### [address] [address] RBC 4.73 10 6/mcL Normal 4.04-6.13 [facility] ([place] Comment on above: Performed By: #### C BC, ADIFF, ANEU, BMP, GFR, PBNP, TROPHS #### [address] [address] WBC 12.80 10 3/mcL High 4.60-10.80 [facility] ([place] Comment on above: Performed By: #### C BC, ADIFF, ANEU, BMP, GFR, PBNP, TROPHS #### [address] [address] [id number] 06-21-2021 Date of Onset [id number] Invalid Interpretation Code [facility] Comment on above: Performed By: #### C OVD19 #### [address] [address] Employed in Healthcare Unknown Normal [facility] Comment on above: Performed By: #### Atif OVD19 #### [place] [id number] First Test Unknown Normal [facility] ([place] Comment on above: Performed By: #### C OVD19 #### [place] [address] [place], [place] [address] Hospitalized No Normal [facility] Comment on above: Performed By: #### C OVD19 #### [place] [address] [place], [place] [address] ICU No Normal [facility] Comment on above: Performed By: #### C OVD19 #### [place] [address] [address] Not [facility] ([place]) Comment on above: Performed By: #### C OVD19 #### [place] [address] Resides in Congregate Care Setting No [facility] ([place]) Comment on above: Performed By: #### C OVD19 #### [place] [address] SARS-CoV-2 (COVID-19) RNA DESTINY+probe Ql (Unsp spec) Negative Normal Negative [facility] ([place] Comment on above: Performed By: #### C OVD19 #### [place] [address] SARS-CoV-2 (COVID-19) RNA DESTINY+probe Ql (Unsp spec) Normal [facility] ([place] Comment on above: Result Comment: Nega tive results do not preclude SARS-CoV-2 infection and should not be used as the sole basis for patient management decisions. Negative results must be combined with clinical observations, patient history, and epidemiological information. There is a risk of false negative values resulting from improperly collected, transported, or handled specimens. There is a risk of false negative values due to the presence of sequence variants in the pathogen targets of the assay, procedural errors, amplification inhibitors in specimens, or inadequate numbers of organisms for amplification. ANTHONY SARS-CoV-2 Assay is a Real-Time reverse-transcriptase polymerase chain reaction (RT-PCR) based qualitative in vitro diagnostic test intended for the qualitative detection of nucleic acid from the SARS-CoV-2 in nasopharyngeal swab specimens collected from individuals suspected of COVID-19 by their healthcare provider. Testing is limited to laboratories certified under the Clinical Laboratory Improvement Amendments of 1988 (CLIA), 42 U.S.C. ?263a, to perform moderate and high complexity tests. COVID-19 Int Performed By: #### C OVD19 #### [address] [address] Symptomatic as Defined by CDC Yes Normal [facility] ([place] Comment on above: Performed By: #### C OVD19 #### [address] [address] PBNPon 06-21-2021 Natriuretic peptide B (Bld) [Mass/Vol] 34 pg/mL Normal 0-125 [facility] ([place] Comment on above: Result Comment: NT-p roBNP results of less than 300 pg/mL effectively rules out acute congestive heart failure with 99% negative predictive value. Performed By: #### C BC, ADIFF, ANEU, BMP, GFR, PBNP, TROPHS #### [address] [address] TROPHSon 06-21-2021 Troponin I High Sensitivity 6.1 ng/L Normal 0.0-76.2 [facility] ([place] Comment on above: Performed By: #### C BC, ADIFF, ANEU, BMP, GFR, PBNP, TROPHS #### [address] [address] XR CHEST 1 VIEWon 06-21-2021 XR CHEST 1 VIEW ORIGINAL EXAMINATION: ONE XRAY VIEW OF THE CHEST 06/20/2021 11:37 pm COMPARISON: 06/20/2020 HISTORY: Reason for Exam: SOB/cough/fever FINDINGS: The lungs are emphysematous with mild hyperinflation. Probable scarring is again seen in the left upper lung. However, there are new mild basal opacities bilaterally. No pneumothorax or apparent pleural effusion. Surgical clips and suture material are seen in the right upper lung. The cardiac silhouette is unremarkable. IMPRESSION: Mild basilar atelectasis and/or developing infiltrates. Emphysema. Interpreted by: Dat Hopper DO Preliminary Report By: Dat Hopper DO Electronically signed By Dat Hopper DO Dictated Date: 06/20/2021 11:40:53 PM Prelim Date: 06/20/2021 11:48:28 PM Sign Date: 06/20/2021 11:48:28 PM Ordering Provider: DEVYN Barton [facility] ([place]) LABORATORYOrdered By: Anna Calhoun on 06-20-2021 ADMITTED TO INTENSIVE CARE UNIT FOR CONDITION OF INTEREST:FIND:PT:^PAT IENT:ORD: No (06/20/21 11:06 PM) Invalid Interpretation Code AO Auto Urine SS Basophil, Absolute 0.10 103/mcL Invalid Interpretation Code 0.00 - 0.19 10^3/mcL AO Auto Heme SS Basophils/100 WBC (Bld) 0.6 % Invalid Interpretation Code 0.0 - 2.5 % AO Auto Heme SS Calcium [Mass/Vol] 9.6 mg/dL Invalid Interpretation Code 8.4 - 10.2 mg/dL AO ADM SS Chloride [Moles/Vol] 99 mmol/L Invalid Interpretation Code 98 - 107 mmol/L AO ADM SS CO2 [Moles/Vol] 30 mmol/L Invalid Interpretation Code 22 - 29 mmol/L AO ADM SS Creatinine [Mass/Vol] 0.99 mg/dL Invalid Interpretation Code 0.70 - 1.30 mg/dL AO ADM SS Electrolyte Balance 11.0 mEq/L Invalid Interpretation Code 4.0 - 15.0 mEq/L AO ADM SS EMPLOYED IN A HEALTHCARE SETTING:FIND:PT:^KAELA ENT:ORD: Unknown (06/20/21 11:06 PM) Invalid Interpretation Code AO Auto Urine SS Eosinophil, Absolute 0.30 103/mcL Invalid Interpretation Code 0.00 - 0.40 10^3/mcL AO Auto Heme SS Eosinophils/100 WBC (Bld) 2.5 % Invalid Interpretation Code 0.0 - 7.0 % AO Auto Heme SS Erythrocyte distribution width (RBC) [Ratio] 14.5 % Invalid Interpretation Code 11.5 - 14.5 % AO Auto Heme SS FIRST TEST FOR CONDITION OF INTEREST:FIND:PT:^PAT IENT:ORD: Unknown (06/20/21 11:06 PM) Invalid Interpretation Code AO Auto Urine SS Glucose [Mass/Vol] 122 mg/dL Invalid Interpretation Code 70 - 105 mg/dL AO ADM SS HAS SYMPTOMS RELATED TO CONDITION OF INTEREST:FIND:PT:^PAT IENT:ORD: Yes (06/20/21 11:06 PM) Invalid Interpretation Code AO Auto Urine SS Hematocrit (Bld) [Volume fraction] 42.6 % Invalid Interpretation Code 42.0 - 52.0 % AO Auto Heme SS Hemoglobin (Bld) [Mass/Vol] 13.9 G/dL Invalid Interpretation Code 14.0 - 18.0 G/dL AO Auto Heme SS Illness or injury onset date and time [id number] Invalid Interpretation Code AO Auto Urine SS Lymphocyte, Absolute 1.90 103/mcL Invalid Interpretation Code 0.77 - 3.85 10^3/mcL AO Auto Heme SS Lymphocytes/100 WBC (Bld) 14.8 % Invalid Interpretation Code 10.0 - 50.0 % AO Auto Heme SS MCH (RBC) [Entitic mass] 29.4 pg Invalid Interpretation Code 27.0 - 31.2 pg AO Auto Heme SS MCHC (RBC) [Mass/Vol] 32.7 G/dL Invalid Interpretation Code 31.8 - 35.4 G/dL AO Auto Heme SS MCV (RBC) [Entitic vol] 90.1 fL Invalid Interpretation Code 80.0 - 94.0 fL AO Auto Heme SS Monocyte, Absolute 1.10 103/mcL Invalid Interpretation Code 0.15 - 1.00 10^3/mcL AO Auto Heme SS Monocytes/100 WBC (Bld) 8.4 % Invalid Interpretation Code 1.7 - 13.0 % AO Auto Heme SS Natriuretic peptide.B prohormone N-Terminal [Mass/Vol] 34 pg/mL Invalid Interpretation Code 0 - 125 pg/mL AO ADM SS Neutrophil, Absolute 9.40 103/mcL Invalid Interpretation Code 2.85 - 6.16 10^3/mcL AO Auto Heme SS Neutrophils/100 WBC (Bld) 73.7 % Invalid Interpretation Code 37.0 - 80.0 % AO Auto Heme SS Patient was hospitalized because of this condition No (06/20/21 11:06 PM) Invalid Interpretation Code AO Auto Urine SS Platelet mean volume (Bld) [Entitic vol] 7.8 fL Invalid Interpretation Code 7.4 - 10.4 fL AO Auto Heme SS Platelets (Bld) [#/Vol] 440 103/mcL Invalid Interpretation Code 130 - 400 10^3/mcL AO Auto Heme SS Potassium [Moles/Vol] 3.8 mmol/L Invalid Interpretation Code 3.5 - 5.1 mmol/L AO ADM SS status Not (06/20/21 11:06 PM) Invalid Interpretation Code AO Auto Urine SS RBC (Bld) [#/Vol] 4.73 106/mcL Invalid Interpretation Code 4.04 - 6.13 10^6/mcL AO Auto Heme SS RESIDES IN A CONGREGATE CARE SETTING:FIND:PT:^KAELA ENT:ORD: No (06/20/21 11:06 PM) Invalid Interpretation Code AO Auto Urine SS SARS-CoV-2 (COVID-19) RNA DESTINY+probe Ql (Resp) Negative (06/20/21 11:06 PM) Invalid Interpretation Code Negative AO Auto Urine SS SARS-CoV-2 (COVID-19) RNA DESTINY+probe Ql (Unsp spec) Negative results do not preclude SARS-CoV-2 infection and should not be used as the sole basis for patient management decisions. Negative results must be combined with clinical observations, patient history, and epidemiological information.There is a risk of false negative values resulting from improperly collected, transported, or handled specimens.There is a risk of false negative values due to the presence of sequence variants in the pathogen targets of the assay, procedural errors, amplification inhibitors in specimens, or inadequate numbers of organisms for amplification.ANTHONY SARS-CoV-2 Assay is a Real-Time reverse-transcriptase polymerase chain reaction (RT-PCR) based qualitative in vitro diagnostic test intended for the qualitative detection of nucleic acid from the SARS-CoV-2 in nasopharyngeal swab specimens collected from individuals suspected of COVID-19 by their healthcare provider. Testing is limited to laboratories certified under the Clinical Laboratory Improvement Amendments of 1988 (CLIA), 42 U.S.C. 263a, to perform moderate and high complexity tests. Invalid Interpretation Code AO Auto Urine SS Sodium [Moles/Vol] 140 mmol/L Invalid Interpretation Code 136 - 145 mmol/L AO ADM SS Troponin I.cardiac DL <= 0.01 ng/mL [Mass/Vol] 6.1 ng/L Invalid Interpretation Code 0.0 - 76.2 ng/L AO ADM SS Urea nitrogen [Mass/Vol] 14 mg/dL Invalid Interpretation Code 7 - 18 mg/dL AO ADM SS Urea nitrogen/Creatinine [Mass ratio] 14 ratio Invalid Interpretation Code 7 - 27 ratio AO ADM SS WBC (Bld) [#/Vol] 12.80 103/mcL Invalid Interpretation Code 4.60 - 10.80 10^3/mcL AO Auto Heme SS LABORATORYOrdered By: SYSTEM SYSTEM on 06-20-2021 GFR 97 ml/min/1.73sqm Invalid Interpretation Code AO Chemistry S GFR Non- 80 ml/min/1.73sqm Invalid Interpretation Code AO Chemistry S CT CHEST WO IVCONon 06-11-19 Radiology Result ACTIONABLE Abnormal [facility] Comp Panel with Mg Reflexon 04-13-2021 ALT [Catalytic activity/Vol] 22 U/L Normal 0-49 [facility] Comment on above: Result Comment: The ALT test is performed by an updated assay method. Please note that the reference intervals have been changed and are now sex specific. Performed By: #### H OMCY, FOLT3, HEMDF, BMP3M #### [facility] [address] [place] [address] #### MMA2 #### The performing lab is in the report. Calcium [Mass/Vol] 9.1 mg/dL Normal 8.4-10.4 [facility] Comment on above: Performed By: #### H OMCY, FOLT3, HEMDF, BMP3M #### [facility] [address] [place] [address] #### MMA2 #### The performing lab is in the report. Glucose [Mass/Vol] 169 mg/dL High 70-100 [facility] Comment on above: Performed By: #### H OMCY, FOLT3, HEMDF, BMP3M #### [facility] [address] [place] [address] #### MMA2 #### The performing lab is in the report. ALP [Catalytic activity/Vol] 92 U/L Normal 38-126 [facility] Comment on above: Performed By: #### H OMCY, FOLT3, HEMDF, BMP3M #### [facility] [address] [place] [address] #### MMA2 #### The performing lab is in the report. Anion gap [Moles/Vol] 4 mmol/L Normal 3-13 [facility] Comment on above: Performed By: #### H OMCY, FOLT3, HEMDF, BMP3M #### [facility] [address] [place] [address] #### MMA2 #### The performing lab is in the report. AST [Catalytic activity/Vol] 15 U/L Normal 15-46 [facility] Comment on above: Performed By: #### H OMCY, FOLT3, HEMDF, BMP3M #### [facility] [address] [place] [address] #### MMA2 #### The performing lab is in the report. Bilirubin [Mass/Vol] 0.5 mg/dL Normal 0.2-1.3 [facility] Comment on above: Performed By: #### H OMCY, FOLT3, HEMDF, BMP3M #### [facility] [address] [place] [address] #### MMA2 #### The performing lab is in the report. CO2 [Moles/Vol] 29 mmol/L Normal 22-30 [facility] Comment on above: Performed By: #### H OMCY, FOLT3, HEMDF, BMP3M #### [facility] [address] [place] [address] #### MMA2 #### The performing lab is in the report. Creatinine [Mass/Vol] 0.70 mg/dL Normal 0.52-1.25 [facility] Comment on above: Performed By: #### H OMCY, FOLT3, HEMDF, BMP3M #### [place] [address] [place] [address] #### MMA2 #### The performing lab is in the report. eGFR OTHER > 90.0 Normal >60 [facility] Comment on above: Result Comment: KDIG O guidelines provide the following GFR categories: Stage GFR(ml/min/1.73 m2) Terms G1 >=90 Normal or high G2 60-89 Mildly decreased* G3a 45-59 Mildly to moderately decreased G3b 30-44 Moderately to severely decreased G4 15-29 Severely decreased G5 <15 Kidney failure *Relative to young adult level. In the absence of evidence of kidney damage, neither GFR category G1 nor G2 fulfill the criteria for CKD. The CKD-EPI equation is validated in individuals 18 years of age and older. Currently the best equation for estimating glomerular filtration rate (GFR) from serum creatinine in children is the Bedside Balbuena equation. It is less accurate in patients with extremes of muscle mass, restriction of dietary protein, ingestion of creatine, extra-renal metabolism of creatinine, or treatment with medications that affect renal tubular creatinine secretion. Performed By: #### H OMCY, FOLT3, HEMDF, BMP3M #### [facility] [address] [place] [address] #### MMA2 #### The performing lab is in the report. GFR/1.73 sq M.predicted among blacks MDRD (S/P/Bld) [Vol rate/Area] mL/min/{1.73_m2} Normal >60 [facility] Comment on above: Performed By: #### H OMCY, FOLT3, HEMDF, BMP3M #### [facility] [address] [place] [address] #### MMA2 #### The performing lab is in the report. Protein [Mass/Vol] 6.1 g/dL Low 6.3-8.2 [facility] Comment on above: Performed By: #### H OMCY, FOLT3, HEMDF, BMP3M #### [facility] [address] [place] [address] #### MMA2 #### The performing lab is in the report. Urea nitrogen [Mass/Vol] 22 mg/dL High 7-17 [facility] Comment on above: Performed By: #### H OMCY, FOLT3, HEMDF, BMP3M #### [facility] [address] [place] [address] #### MMA2 #### The performing lab is in the report. Potassium [Moles/Vol] 4.2 mmol/L Normal 3.5-5.1 [facility] Comment on above: Performed By: #### H OMCY, FOLT3, HEMDF, BMP3M #### [facility] [address] [place] [address] #### MMA2 #### The performing lab is in the report. Sodium [Moles/Vol] 132 mmol/L Low 135-145 [facility] Comment on above: Performed By: #### H OMCY, FOLT3, HEMDF, BMP3M #### [facility] [address] [place] [address] #### MMA2 #### The performing lab is in the report. Albumin [Mass/Vol] 3.4 g/dL Low 3.5-5.0 [facility] Comment on above: Performed By: #### H OMCY, FOLT3, HEMDF, BMP3M #### [facility] [address] [place] [address] #### MMA2 #### The performing lab is in the report. Chloride [Moles/Vol] 99 mmol/L Normal 98-107 [facility] Comment on above: Performed By: #### H OMCY, FOLT3, HEMDF, BMP3M #### [facility] [address] [place] [address] #### MMA2 #### The performing lab is in the report. Hemogram w/ Autodiffon 04-13 Abs Baso Cnt 0.0 10*3/uL Normal 0.0-0.2 [facility] Comment on above: Performed By: #### H OMCY, FOLT3, HEMDF, BMP3M #### [facility] [address] [place] [address] #### MMA2 #### The performing lab is in the report. Abs Neutrophile Cnt 8.7 10*3/uL High 1.8-7.0 [facility] Comment on above: Performed By: #### H OMCY, FOLT3, HEMDF, BMP3M #### [facility] [address] [place] [address] #### MMA2 #### The performing lab is in the report. Basophils/100 WBC (Bld) 0.3 % Normal 0.0-2.0 [facility] Comment on above: Performed By: #### H OMCY, FOLT3, HEMDF, BMP3M #### [facility] [address] [place] [address] #### MMA2 #### The performing lab is in the report. Eosinophils (Bld) [#/Vol] 0.0 10*3/uL Normal 0.0-0.5 [facility] Comment on above: Performed By: #### H OMCY, FOLT3, HEMDF, BMP3M #### [facility] [address] [place] [address] #### MMA2 #### The performing lab is in the report. Eosinophils/100 WBC (Bld) 0.0 % Low 1.0-6.0 [facility] Comment on above: Performed By: #### H OMCY, FOLT3, HEMDF, BMP3M #### [facility] [address] [place] [address] #### MMA2 #### The performing lab is in the report. Erythrocyte distribution width (RBC) [Ratio] 15.4 % High 11.5-14.5 [facility] Comment on above: Performed By: #### H OMCY, FOLT3, HEMDF, BMP3M #### [facility] [address] [place] [address] #### MMA2 #### The performing lab is in the report. Granulocytes/100 WBC (Bld) 86.8 % High 40.0-80.0 [facility] Comment on above: Performed By: #### H OMCY, FOLT3, HEMDF, BMP3M #### [facility] [address] [place] [address] #### MMA2 #### The performing lab is in the report. Hematocrit (Bld) [Volume fraction] 41.2 % Normal 40.0-52.0 [facility] Comment on above: Performed By: #### H OMCY, FOLT3, HEMDF, BMP3M #### [facility] [address] [place] [address] #### MMA2 #### The performing lab is in the report. Hemoglobin (Bld) [Mass/Vol] 13.2 g/dL Normal 13.0-18.0 [facility] Comment on above: Performed By: #### H OMCY, FOLT3, HEMDF, BMP3M #### [facility] [address] [place] [address] #### MMA2 #### The performing lab is in the report. Lymphocytes (Bld) [#/Vol] 0.7 10*3/uL Low 1.0-4.3 [facility] Comment on above: Performed By: #### H OMCY, FOLT3, HEMDF, BMP3M #### [place] [address] [place] [address] #### MMA2 #### The performing lab is in the report. Lymphocytes/100 WBC (Bld) 6.5 % Low 20.0-40.0 [facility] Comment on above: Performed By: #### H OMCY, FOLT3, HEMDF, BMP3M #### [address] [place] [address] #### MMA2 #### The performing lab is in the report. MCH (RBC) [Entitic mass] 28.8 pg Normal 26.0-34.0 [facility] Comment on above: Performed By: #### H OMCY, FOLT3, HEMDF, BMP3M #### [address] [place] [address] #### MMA2 #### The performing lab is in the report. MCHC 32.1 % Normal 32.0-36.0 [facility] Comment on above: Performed By: #### H OMCY, FOLT3, HEMDF, BMP3M #### [address] [place] [address] #### MMA2 #### The performing lab is in the report. MCV (RBC) [Entitic vol] 89.7 fL Normal 80.0-98.0 [facility] Comment on above: Performed By: #### H OMCY, FOLT3, HEMDF, BMP3M #### [address] [place] [address] #### MMA2 #### The performing lab is in the report. Monocytes (Bld) [#/Vol] 0.6 10*3/uL Normal 0.0-0.8 [facility] Comment on above: Performed By: #### H OMCY, FOLT3, HEMDF, BMP3M #### [facility] [address] [place] [address] #### MMA2 #### The performing lab is in the report. Monocytes/100 WBC (Bld) 6.4 % Normal 2.0-10.0 [facility] Comment on above: Performed By: #### H OMCY, FOLT3, HEMDF, BMP3M #### [facility] [address] [place] [address] #### MMA2 #### The performing lab is in the report. Platelet mean volume (Bld) [Entitic vol] 7.4 fL Normal 7.4-10.4 [facility] Comment on above: Performed By: #### H OMCY, FOLT3, HEMDF, BMP3M #### [facility] [address] [place] [address] #### MMA2 #### The performing lab is in the report. Platelets (Bld) [#/Vol] 375 10*3/uL Normal 140-440 [facility] Comment on above: Performed By: #### H OMCY, FOLT3, HEMDF, BMP3M #### [facility] [address] [place] [address] #### MMA2 #### The performing lab is in the report. RBC (Bld) [#/Vol] 4.59 10*6/uL Normal 4.40-5.90 [facility] Comment on above: Performed By: #### H OMCY, FOLT3, HEMDF, BMP3M #### [facility] [address] [place] [address] #### MMA2 #### The performing lab is in the report. WBC (Bld) [#/Vol] 10.0 10*3/uL Normal 3.6-10.7 [facility] Comment on above: Performed By: #### H OMCY, FOLT3, HEMDF, BMP3M #### [facility] [address] [place] [address] #### MMA2 #### The performing lab is in the report. Comp Panel with Mg Reflexon 04-12-2021 ALP [Catalytic activity/Vol] 68 U/L Normal 38-126 [facility] Comment on above: Performed By: #### Aaliyah TURK CMP3M ####[facility] [place] [address] ALT [Catalytic activity/Vol] 23 U/L Normal 0-49 [facility] Comment on above: Result Comment: The ALT test is performed by an updated assay method. Please note that the reference intervals have been changed and are now sex specific. Performed By: #### Aaliyah TURK CMP3M ####[facility] [place] [address] Calcium [Mass/Vol] 8.7 mg/dL Normal 8.4-10.4 [facility] Comment on above: Performed By: #### Aaliyah TURK CMP3M ####[facility] [place] [address] Glucose [Mass/Vol] 146 mg/dL High 70-100 [facility] Comment on above: Performed By: #### Aaliyah TURK CMP3M ####[facility] [place] [address] Urea nitrogen [Mass/Vol] 20 mg/dL High 7-17 [facility] Comment on above: Performed By: #### Aaliyah TURK CMP3M ####[place] [address] [place] [address] Anion gap [Moles/Vol] 0 mmol/L Low 3-13 [facility] Comment on above: Performed By: #### Aaliyah TURK CMP3M ####[facility] [place] [address] AST [Catalytic activity/Vol] 17 U/L Normal 15-46 [facility] Comment on above: Performed By: #### Aaliyah TURK CMP3M ####[facility] [place] [address] Bilirubin [Mass/Vol] 0.5 mg/dL Normal 0.2-1.3 [facility] Comment on above: Performed By: #### Aaliyah TURK CMP3M ####[facility] [place] [address] CO2 [Moles/Vol] 32 mmol/L High 22-30 [facility] Comment on above: Performed By: #### H JACQUELINE TURK3M ####[place] [address] [place] [address] Creatinine [Mass/Vol] 0.69 mg/dL Normal 0.52-1.25 [facility] Comment on above: Performed By: #### H JACQUELINE TURK3M ####[address] [place] [address] eGFR OTHER > 90.0 Normal >60 [facility] Comment on above: Result Comment: KDIG O guidelines provide the following GFR categories: Stage GFR(ml/min/1.73 m2) Terms G1 >=90 Normal or high G2 60-89 Mildly decreased* G3a 45-59 Mildly to moderately decreased G3b 30-44 Moderately to severely decreased G4 15-29 Severely decreased G5 <15 Kidney failure *Relative to young adult level. In the absence of evidence of kidney damage, neither GFR category G1 nor G2 fulfill the criteria for CKD. The CKD-EPI equation is validated in individuals 18 years of age and older. Currently the best equation for estimating glomerular filtration rate (GFR) from serum creatinine in children is the Bedside Balbuena equation. It is less accurate in patients with extremes of muscle mass, restriction of dietary protein, ingestion of creatine, extra-renal metabolism of creatinine, or treatment with medications that affect renal tubular creatinine secretion. Performed By: #### H JACQUELINE TURK3M ####[address] [place] [address] GFR/1.73 sq M.predicted among blacks MDRD (S/P/Bld) [Vol rate/Area] mL/min/{1.73_m2} Normal >60 [facility] Comment on above: Performed By: #### H JACQUELINE TURK3M ####[address] [address] Protein [Mass/Vol] 6.0 g/dL Low 6.3-8.2 [facility] Comment on above: Performed By: #### H JACQUELINE TURK3M ####[address] [place] [address] Potassium [Moles/Vol] 4.3 mmol/L Normal 3.5-5.1 [facility] Comment on above: Performed By: #### Aaliyah TURK CMP3M ####[facility] [place] [address] Sodium [Moles/Vol] 132 mmol/L Low 135-145 [facility] Comment on above: Performed By: #### H BURKE CMP3M ####[facility] [place] [address] Albumin [Mass/Vol] 3.3 g/dL Low 3.5-5.0 [facility] Comment on above: Performed By: #### H BURKE CMP3M ####[place] [address] [place] [address] Chloride [Moles/Vol] 100 mmol/L Normal 98-107 [facility] Comment on above: Performed By: #### Aaliyah TURK CMP3M ####[place] [address] [place] [address] Hemogram w/ Autodiffon 04-12 Abs Baso Cnt 0.0 10*3/uL Normal 0.0-0.2 [facility] Comment on above: Performed By: #### Aaliyah TURK CMP3M ####[place] [address] [place] [address] Abs Neutrophile Cnt 7.2 10*3/uL High 1.8-7.0 [facility] Comment on above: Performed By: #### Aaliyah TURK CMP3M ####[place] [address] [place] [address] Basophils/100 WBC (Bld) 0.1 % Normal 0.0-2.0 [facility] Comment on above: Performed By: #### Aaliyah TURK CMP3M ####[place] [address] [place] [address] Eosinophils (Bld) [#/Vol] 0.0 10*3/uL Normal 0.0-0.5 [facility] Comment on above: Performed By: #### Aaliyah TURK CMP3M ####[place] [address] [place] [address] Eosinophils/100 WBC (Bld) 0.2 % Low 1.0-6.0 [facility] Comment on above: Performed By: #### Aaliyah TURK CMP3M ####[place] [address] [place] [address] Erythrocyte distribution width (RBC) [Ratio] 15.3 % High 11.5-14.5 [facility] Comment on above: Performed By: #### H BURKE CMP3M ####[place] [address] [place] [address] Granulocytes/100 WBC (Bld) 83.5 % High 40.0-80.0 [facility] Comment on above: Performed By: #### Aaliyah TURK CMP3M ####[place] [address] [place] [address] Hematocrit (Bld) [Volume fraction] 40.4 % Normal 40.0-52.0 [facility] Comment on above: Performed By: #### Aaliyah TURK CMP3M ####[place] [address] [place] [address] Hemoglobin (Bld) [Mass/Vol] 13.2 g/dL Normal 13.0-18.0 [facility] Comment on above: Performed By: #### Aaliyah TURK CMP3M ####[place] [address] [place] [address] Lymphocytes (Bld) [#/Vol] 0.7 10*3/uL Low 1.0-4.3 [facility] Comment on above: Performed By: #### Aaliyah TURK CMP3M ####[place] [address] [place] [address] Lymphocytes/100 WBC (Bld) 8.7 % Low 20.0-40.0 [facility] Comment on above: Performed By: #### Aaliyah TURK CMP3M ####[place] [address] [place] [address] MCH (RBC) [Entitic mass] 29.4 pg Normal 26.0-34.0 [facility] Comment on above: Performed By: #### Aaliyah TURK CMP3M ####[facility] [place] [address] MCHC 32.7 % Normal 32.0-36.0 [facility] Comment on above: Performed By: #### H BURKE CMP3M ####[facility] [place] [address] MCV (RBC) [Entitic vol] 90.0 fL Normal 80.0-98.0 [facility] Comment on above: Performed By: #### H BURKE CMP3M ####[facility] [place] [address] Monocytes (Bld) [#/Vol] 0.6 10*3/uL Normal 0.0-0.8 [facility] Comment on above: Performed By: #### H BURKE CMP3M ####[place] [address] [place] [address] Monocytes/100 WBC (Bld) 7.5 % Normal 2.0-10.0 [facility] Comment on above: Performed By: #### H BURKE CMP3M ####[place] [address] [place] [address] Platelet mean volume (Bld) [Entitic vol] 7.5 fL Normal 7.4-10.4 [facility] Comment on above: Performed By: #### H BURKE CMP3M ####[place] [address] [place] [address] Platelets (Bld) [#/Vol] 330 10*3/uL Normal 140-440 [facility] Comment on above: Performed By: #### H BURKE CMP3M ####[facility] [place] [address] RBC (Bld) [#/Vol] 4.49 10*6/uL Normal 4.40-5.90 [facility] Comment on above: Performed By: #### H EMDJamee CMP3M ####[place] [address] [place] [address] WBC (Bld) [#/Vol] 8.6 10*3/uL Normal 3.6-10.7 [facility] Comment on above: Performed By: #### H EMDF, CMP3M ####[facility] [place] [address] CULT./ST. RESPIRATORYon 03-15 CULT./ST. RESPIRATORY CULT./ST. RESPIRAT ORY --> Status: F Few normal respiratory olayinka. Normal [facility] Comment on above: Performed By: #### H EMDF, BMP3M #### [facility] [address] [place] [address] Comp Panel with Mg Reflexon 04-11-2021 Calcium [Mass/Vol] 8.9 mg/dL Normal 8.4-10.4 [facility] Comment on above: Performed By: #### H OMCY, FOLT3, HEMDF, BMP3M #### [facility] [address] [place] [address] #### MMA2 #### The performing lab is in the report. ALP [Catalytic activity/Vol] 70 U/L Normal 38-126 [facility] Comment on above: Performed By: #### H OMCY, FOLT3, HEMDF, BMP3M #### [facility] [address] [place] [place] [address] #### MMA2 #### The performing lab is in the report. ALT [Catalytic activity/Vol] 27 U/L Normal 0-49 [facility] Comment on above: Result Comment: The ALT test is performed by an updated assay method. Please note that the reference intervals have been changed and are now sex specific. Performed By: #### H OMCY, FOLT3, HEMDF, BMP3M #### [facility] [address] [place] [address] #### MMA2 #### The performing lab is in the report. Anion gap [Moles/Vol] 4 mmol/L Normal 3-13 [facility] Comment on above: Performed By: #### H OMCY, FOLT3, HEMDF, BMP3M #### [facility] [address] [place] [address] #### MMA2 #### The performing lab is in the report. AST [Catalytic activity/Vol] 24 U/L Normal 15-46 [facility] Comment on above: Performed By: #### H OMCY, FOLT3, HEMDF, BMP3M #### [facility] [address] [place] [address] #### MMA2 #### The performing lab is in the report. Bilirubin [Mass/Vol] 0.5 mg/dL Normal 0.2-1.3 [facility] Comment on above: Performed By: #### H OMCY, FOLT3, HEMDF, BMP3M #### [facility] [address] [place] [address] #### MMA2 #### The performing lab is in the report. CO2 [Moles/Vol] 30 mmol/L Normal 22-30 [facility] Comment on above: Performed By: #### H OMCY, FOLT3, HEMDF, BMP3M #### [facility] [address] [place] [address] #### MMA2 #### The performing lab is in the report. Glucose [Mass/Vol] 150 mg/dL High 70-100 [facility] Comment on above: Performed By: #### H OMCY, FOLT3, HEMDF, BMP3M #### [facility] [address] [place] [address] #### MMA2 #### The performing lab is in the report. Protein [Mass/Vol] 6.1 g/dL Low 6.3-8.2 [facility] Comment on above: Performed By: #### H OMCY, FOLT3, HEMDF, BMP3M #### [facility] [address] [place] [address] #### MMA2 #### The performing lab is in the report. Urea nitrogen [Mass/Vol] 21 mg/dL High 7-17 [facility] Comment on above: Performed By: #### H OMCY, FOLT3, HEMDF, BMP3M #### [facility] [address] [place] [address] #### MMA2 #### The performing lab is in the report. Creatinine [Mass/Vol] 0.75 mg/dL Normal 0.52-1.25 [facility] Comment on above: Performed By: #### H OMCY, FOLT3, HEMDF, BMP3M #### [facility] [address] [place] [address] #### MMA2 #### The performing lab is in the report. eGFR OTHER > 90.0 Normal >60 [facility] Comment on above: Result Comment: KDIG O guidelines provide the following GFR categories: Stage GFR(ml/min/1.73 m2) Terms G1 >=90 Normal or high G2 60-89 Mildly decreased* G3a 45-59 Mildly to moderately decreased G3b 30-44 Moderately to severely decreased G4 15-29 Severely decreased G5 <15 Kidney failure *Relative to young adult level. In the absence of evidence of kidney damage, neither GFR category G1 nor G2 fulfill the criteria for CKD. The CKD-EPI equation is validated in individuals 18 years of age and older. Currently the best equation for estimating glomerular filtration rate (GFR) from serum creatinine in children is the Bedside Balbuena equation. It is less accurate in patients with extremes of muscle mass, restriction of dietary protein, ingestion of creatine, extra-renal metabolism of creatinine, or treatment with medications that affect renal tubular creatinine secretion. Performed By: #### H OMCY, FOLT3, HEMDF, BMP3M #### [facility] [address] [place] [address] #### MMA2 #### The performing lab is in the report. GFR/1.73 sq M.predicted among blacks MDRD (S/P/Bld) [Vol rate/Area] mL/min/{1.73_m2} Normal >60 [facility] Comment on above: Performed By: #### H OMCY, FOLT3, HEMDF, BMP3M #### [facility] [address] [place] [address] #### MMA2 #### The performing lab is in the report. Albumin [Mass/Vol] 3.4 g/dL Low 3.5-5.0 [facility] Comment on above: Performed By: #### H OMCY, FOLT3, HEMDF, BMP3M #### [facility] [address] [place] [address] #### MMA2 #### The performing lab is in the report. Chloride [Moles/Vol] 99 mmol/L Normal 98-107 [facility] Comment on above: Performed By: #### H OMCY, FOLT3, HEMDF, BMP3M #### [facility] [address] [place] [address] #### MMA2 #### The performing lab is in the report. Potassium [Moles/Vol] 4.4 mmol/L Normal 3.5-5.1 [facility] Comment on above: Performed By: #### H OMCY, FOLT3, HEMDF, BMP3M #### [facility] [address] [place] [address] #### MMA2 #### The performing lab is in the report. Sodium [Moles/Vol] 133 mmol/L Low 135-145 [facility] Comment on above: Performed By: #### H OMCY, FOLT3, HEMDF, BMP3M #### [facility] [address] [place] [address] #### MMA2 #### The performing lab is in the report. Hemogram w/ Autodiffon 04-11 Abs Baso Cnt 0.0 10*3/uL Normal 0.0-0.2 [facility] Comment on above: Performed By: #### H OMCY, FOLT3, HEMDF, BMP3M #### [facility] [address] [place] [address] #### MMA2 #### The performing lab is in the report. Abs Neutrophile Cnt 6.6 10*3/uL Normal 1.8-7.0 [facility] Comment on above: Performed By: #### H OMCY, FOLT3, HEMDF, BMP3M #### [facility] [address] [place] [address] #### MMA2 #### The performing lab is in the report. Basophils/100 WBC (Bld) 0.1 % Normal 0.0-2.0 [facility] Comment on above: Performed By: #### H OMCY, FOLT3, HEMDF, BMP3M #### [facility] [address] [place] [address] #### MMA2 #### The performing lab is in the report. Eosinophils (Bld) [#/Vol] 0.0 10*3/uL Normal 0.0-0.5 [facility] Comment on above: Performed By: #### H OMCY, FOLT3, HEMDF, BMP3M #### [facility] [address] [place] [address] #### MMA2 #### The performing lab is in the report. Eosinophils/100 WBC (Bld) 0.0 % Low 1.0-6.0 [facility] Comment on above: Performed By: #### H OMCY, FOLT3, HEMDF, BMP3M #### [facility] [address] [place] [address] #### MMA2 #### The performing lab is in the report. Erythrocyte distribution width (RBC) [Ratio] 15.3 % High 11.5-14.5 [facility] Comment on above: Performed By: #### H OMCY, FOLT3, HEMDF, BMP3M #### [facility] [address] [place] [address] #### MMA2 #### The performing lab is in the report. Granulocytes/100 WBC (Bld) 83.9 % High 40.0-80.0 [facility] Comment on above: Performed By: #### H OMCY, FOLT3, HEMDF, BMP3M #### [facility] [address] [place] [address] #### MMA2 #### The performing lab is in the report. Hematocrit (Bld) [Volume fraction] 40.6 % Normal 40.0-52.0 [facility] Comment on above: Performed By: #### H OMCY, FOLT3, HEMDF, BMP3M #### [facility] [address] [place] [address] #### MMA2 #### The performing lab is in the report. Hemoglobin (Bld) [Mass/Vol] 13.1 g/dL Normal 13.0-18.0 [facility] Comment on above: Performed By: #### H OMCY, FOLT3, HEMDF, BMP3M #### [facility] [address] [place] [address] #### MMA2 #### The performing lab is in the report. Lymphocytes (Bld) [#/Vol] 0.7 10*3/uL Low 1.0-4.3 [facility] Comment on above: Performed By: #### H OMCY, FOLT3, HEMDF, BMP3M #### [facility] [address] [place] [address] #### MMA2 #### The performing lab is in the report. Lymphocytes/100 WBC (Bld) 8.7 % Low 20.0-40.0 [facility] Comment on above: Performed By: #### H OMCY, FOLT3, HEMDF, BMP3M #### [facility] [address] [place] [address] #### MMA2 #### The performing lab is in the report. MCH (RBC) [Entitic mass] 29.0 pg Normal 26.0-34.0 [facility] Comment on above: Performed By: #### H OMCY, FOLT3, HEMDF, BMP3M #### [facility] [address] [place] [address] #### MMA2 #### The performing lab is in the report. MCHC 32.3 % Normal 32.0-36.0 [facility] Comment on above: Performed By: #### H OMCY, FOLT3, HEMDF, BMP3M #### [facility] [address] [place] [address] #### MMA2 #### The performing lab is in the report. MCV (RBC) [Entitic vol] 89.8 fL Normal 80.0-98.0 [facility] Comment on above: Performed By: #### H OMCY, FOLT3, HEMDF, BMP3M #### [facility] [address] [place] [address] #### MMA2 #### The performing lab is in the report. Monocytes (Bld) [#/Vol] 0.6 10*3/uL Normal 0.0-0.8 [facility] Comment on above: Performed By: #### H OMCY, FOLT3, HEMDF, BMP3M #### [facility] [address] [place] [address] #### MMA2 #### The performing lab is in the report. Monocytes/100 WBC (Bld) 7.3 % Normal 2.0-10.0 [facility] Comment on above: Performed By: #### H OMCY, FOLT3, HEMDF, BMP3M #### [facility] [address] [place] [address] #### MMA2 #### The performing lab is in the report. Platelet mean volume (Bld) [Entitic vol] 7.7 fL Normal 7.4-10.4 [facility] Comment on above: Performed By: #### H OMCY, FOLT3, HEMDF, BMP3M #### [facility] [address] [place] [address] #### MMA2 #### The performing lab is in the report. Platelets (Bld) [#/Vol] 314 10*3/uL Normal 140-440 [facility] Comment on above: Performed By: #### H OMCY, FOLT3, HEMDF, BMP3M #### [facility] [address] [place] [address] #### MMA2 #### The performing lab is in the report. RBC (Bld) [#/Vol] 4.53 10*6/uL Normal 4.40-5.90 [facility] Comment on above: Performed By: #### H OMCY, FOLT3, HEMDF, BMP3M #### [facility] [address] [place] [address] #### MMA2 #### The performing lab is in the report. WBC (Bld) [#/Vol] 7.8 10*3/uL Normal 3.6-10.7 [facility] Comment on above: Performed By: #### H OMCY, FOLT3, HEMDF, BMP3M #### [facility] [address] [place] [address] #### MMA2 #### The performing lab is in the report. CULT./ST. RESPIRATORYon 03-15 CULT./ST. RESPIRATORY CULT./ST. RESPIRAT ORY --> Status: F Moderate normal respiratory olayinka. Normal [facility] Comment on above: Performed By: #### H EMDF, BMP3M #### [facility] [address] [place] [address] Comp Panel with Mg Reflexon 04-10-2021 ALT [Catalytic activity/Vol] 29 U/L Normal 0-49 [facility] Comment on above: Result Comment: The ALT test is performed by an updated assay method. Please note that the reference intervals have been changed and are now sex specific. Performed By: #### C MP3M, HEMDF ####[place] [address] [place] [address] Calcium [Mass/Vol] 8.6 mg/dL Normal 8.4-10.4 [facility] Comment on above: Performed By: #### C MP3M, HEMDF ####[facility] [place] [address] Glucose [Mass/Vol] 138 mg/dL High 70-100 [facility] Comment on above: Performed By: #### C MP3M, HEMDF ####[place] [address] [place] [address] ALP [Catalytic activity/Vol] 65 U/L Normal 38-126 [facility] Comment on above: Performed By: #### C MP3M, HEMDF ####[facility] [place] [address] Anion gap [Moles/Vol] 4 mmol/L Normal 3-13 [facility] Comment on above: Performed By: #### C MP3M, HEMDF ####[facility] [place] [address] AST [Catalytic activity/Vol] 17 U/L Normal 15-46 [facility] Comment on above: Performed By: #### C MP3M, HEMDF ####[place] [address] [place] [address] Bilirubin [Mass/Vol] 0.4 mg/dL Normal 0.2-1.3 [facility] Comment on above: Performed By: #### C MP3M, HEMDF ####[place] [address] [place] [address] CO2 [Moles/Vol] 28 mmol/L Normal 22-30 [facility] Comment on above: Performed By: #### C MP3M, HEMDF ####[place] [address] [place] [address] Creatinine [Mass/Vol] 0.67 mg/dL Normal 0.52-1.25 [facility] Comment on above: Performed By: #### C MP3M, HEMDF ####[address] [place] [address] eGFR OTHER > 90.0 Normal >60 [facility] Comment on above: Result Comment: KDIG O guidelines provide the following GFR categories: Stage GFR(ml/min/1.73 m2) Terms G1 >=90 Normal or high G2 60-89 Mildly decreased* G3a 45-59 Mildly to moderately decreased G3b 30-44 Moderately to severely decreased G4 15-29 Severely decreased G5 <15 Kidney failure *Relative to young adult level. In the absence of evidence of kidney damage, neither GFR category G1 nor G2 fulfill the criteria for CKD. The CKD-EPI equation is validated in individuals 18 years of age and older. Currently the best equation for estimating glomerular filtration rate (GFR) from serum creatinine in children is the Bedside Balbuena equation. It is less accurate in patients with extremes of muscle mass, restriction of dietary protein, ingestion of creatine, extra-renal metabolism of creatinine, or treatment with medications that affect renal tubular creatinine secretion. Performed By: #### C MP3M, HEMDF ####[place] [address] [place] [address] GFR/1.73 sq M.predicted among blacks MDRD (S/P/Bld) [Vol rate/Area] mL/min/{1.73_m2} Normal >60 [facility] Comment on above: Performed By: #### C MP3M, HEMDF ####[address] [place] [address] Protein [Mass/Vol] 5.7 g/dL Low 6.3-8.2 [facility] Comment on above: Performed By: #### C MP3M, HEMDF ####[facility] [place] [address] Urea nitrogen [Mass/Vol] 17 mg/dL Normal 7-17 [facility] Comment on above: Performed By: #### C MP3M, HEMDF ####[facility] [place] [address] Potassium [Moles/Vol] 3.8 mmol/L Normal 3.5-5.1 [facility] Comment on above: Performed By: #### C MP3M, HEMDF ####[facility] [place] [address] Albumin [Mass/Vol] 3.1 g/dL Low 3.5-5.0 [facility] Comment on above: Performed By: #### C MP3M, HEMDF ####[facility] [place] [address] Chloride [Moles/Vol] 98 mmol/L Normal 98-107 [facility] Comment on above: Performed By: #### C MP3M, HEMDF ####[facility] [employer] [address] [place] [address] Sodium [Moles/Vol] 130 mmol/L Low 135-145 [facility] Comment on above: Performed By: #### C MP3M, HEMDF ####[facility] [place] [address] Hemogram w/ Autodiffon 04-10 Abs Baso Cnt 0.0 10*3/uL Normal 0.0-0.2 [facility] Comment on above: Performed By: #### C MP3M, HEMDF ####[facility] [place] [address] Abs Neutrophile Cnt 4.5 10*3/uL Normal 1.8-7.0 [facility] Comment on above: Performed By: #### C MP3M, HEMDF ####[facility] [place] [address] Basophils/100 WBC (Bld) 0.1 % Normal 0.0-2.0 [facility] Comment on above: Performed By: #### C MP3M, HEMDF ####[address] [facility] [address] Eosinophils (Bld) [#/Vol] 0.0 10*3/uL Normal 0.0-0.5 [facility] Comment on above: Performed By: #### C MP3M, HEMDF ####[place] [address] [facility] [address] Eosinophils/100 WBC (Bld) 0.0 % Low 1.0-6.0 [facility] Comment on above: Performed By: #### C MP3M, HEMDF ####[address] [place] [address] Erythrocyte distribution width (RBC) [Ratio] 15.5 % High 11.5-14.5 [facility] Comment on above: Performed By: #### C MP3M, HEMDF ####[address] [place] [address] Granulocytes/100 WBC (Bld) 80.9 % High 40.0-80.0 [facility] Comment on above: Performed By: #### C MP3M, HEMDF ####[address] [place] [address] Hematocrit (Bld) [Volume fraction] 38.5 % Low 40.0-52.0 [facility] Comment on above: Performed By: #### C MP3M, HEMDF ####[address] [facility] [address] Hemoglobin (Bld) [Mass/Vol] 12.3 g/dL Low 13.0-18.0 [facility] Comment on above: Performed By: #### C MP3M, HEMDF ####[address] [place] [address] Lymphocytes (Bld) [#/Vol] 0.7 10*3/uL Low 1.0-4.3 [facility] Comment on above: Performed By: #### C MP3M, HEMDF ####[address] [place] [address] Lymphocytes/100 WBC (Bld) 12.2 % Low 20.0-40.0 [facility] Comment on above: Performed By: #### C MP3M, HEMDF ####[address] [place] [address] MCH (RBC) [Entitic mass] 28.7 pg Normal 26.0-34.0 [facility] Comment on above: Performed By: #### C MP3M, HEMDF ####[address] [place] [address] MCHC 32.0 % Normal 32.0-36.0 [facility] Comment on above: Performed By: #### C MP3M, HEMDF ####[address] [place] [address] MCV (RBC) [Entitic vol] 89.7 fL Normal 80.0-98.0 [facility] Comment on above: Performed By: #### C MP3M, HEMDF ####[address] [place] [address] Monocytes (Bld) [#/Vol] 0.4 10*3/uL Normal 0.0-0.8 [facility] Comment on above: Performed By: #### C MP3M, HEMDF ####[address] [place] [address] Monocytes/100 WBC (Bld) 6.8 % Normal 2.0-10.0 [facility] Comment on above: Performed By: #### C MP3M, HEMDF ####[address] [place] [address] Platelet mean volume (Bld) [Entitic vol] 7.8 fL Normal 7.4-10.4 [facility] Comment on above: Performed By: #### C MP3M, HEMDF ####[address] [place] [address] Platelets (Bld) [#/Vol] 260 10*3/uL Normal 140-440 [facility] Comment on above: Performed By: #### C MP3M, HEMDF ####[address] [place] [address] RBC (Bld) [#/Vol] 4.29 10*6/uL Low 4.40-5.90 [facility] Comment on above: Performed By: #### C MP3M, HEMDF ####[facility] [place] [address] WBC (Bld) [#/Vol] 5.5 10*3/uL Normal 3.6-10.7 [facility] Comment on above: Performed By: #### C MP3M, HEMDF ####[facility] [place] [address] LEGIONELLA AG, URINEon 04-09 LEGIONELLA AG, URINE Not detected Normal [facility] Comment on above: Performed By: #### H EMDF, BMP3M #### [facility] [address] [place] [address] STAIN GRAMon 04-09-2021 STAIN GRAM STAIN GRAM --> Statu s: F Rare epithelial cells/lpf. Few polymorphonuclear cells/lpf. Rare gram negative bacilli. Few gram positive cocci in clusters. Few polymorphonuclear cells/lpf. Rare gram negative bacilli. Few gram positive cocci in clusters. Normal [facility] Comment on above: Performed By: #### H EMDF, BMP3M #### [facility] [address] [place] [address] STREP PNEUMO ANTIGEN, URINEo n 04-09-2021 STREP PNEUMO ANTIGEN, URINE Not detected Normal [facility] Comment on above: Performed By: #### H EMDF, BMP3M #### [facility] [address] [place] [address] Add on test from HISon 04-08 Add on test from HIS Accepted Normal [facility] Comment on above: Result Comment: Spec imen available & acceptable for analysis. Performed By: #### H OMCY, FOLT3, HEMDF, BMP3M #### [facility] [address] [place] [address] #### MMA2 #### The performing lab is in the report. C-Reactive Proteinon 022 CRP [Mass/Vol] 7.9 mg/L Normal 0.0-9.9 [facility] Comment on above: Result Comment: . Performed By: #### H OMCY, FOLT3, HEMDF, BMP3M #### [facility] [address] [place] [address] #### MMA2 #### The performing lab is in the report. CTA Chest w/ + w/o Contrasto n 04-08-2021 CTA Chest w/ + w/o Contrast Patient Name: LUIS STEELE Computed Tomography ACCESSION EXAM DATE/TIME PROCEDURE ORDERING PROVIDER [id number] 04/08/2021 13:29 EST CTA Chest w/ + w/o MD SALVATORE, GENE Contrast CPT code 87036 [id number] Reason For Exam (CTA Chest w/ + w/o Contrast) SOB, hypoxia, rule out PE Report CHEST CT ANGIOGRAM History: Dyspnea, hypoxia, COVID positive, concern for PE Comparison CT: None available Technique: Multislice volume acquisition axial CTA images were obtained from the chest apex to diaphragm following IV injection of 75 mL of Isovue. Multiplanar sagittal and coronal reconstructed images also obtained. I concurrently performed 3-D rendering and reviewed the exam on an independent workstation. Findings: There is no evidence of embolus in central pulmonary arteries. 2 the thoracic aorta is not adequately opacified for proper evaluation but shows no aneurysm. The heart is normal in size. There is no pleural or pericardial effusions. There is no hilar, mediastinal, or axillary lymphadenopathy. There are ill-defined patchy groundglass densities in both lungs. There is a background of diffuse bilateral centrilobular with paraseptal emphysema with multiple bullae, bilateral central and peripheral bronchiectasis, and scattered linear atelectasis/scars and pleural thickening. There are some surgical sutures in the right upper lung. Partially visualized upper abdomen shows unremarkable bilateral adrenals and the visualized upper part of the liver, this and spleen. IMPRESSION: No evidence of embolus in central pulmonary arteries. COPD with centrilobular and paraseptal emphysema, bilateral bronchiectasis and linear atelectasis/scars. Ill-defined groundglass lung densities could reflect the history of COVID versus other etiologies.. Computed Tomography Report Report Dictated on Final Dictating Physician: MD SANZ AHMAD Signed Date and Time: 04/08/2021 2:33 pm Signed by: MD SANZ AHMAD Transcribed Date and Time: 04/08/2021 2:34 Normal [facility] Comp Metabolic Panelon 04-08 Calcium [Mass/Vol] 8.3 mg/dL Low 8.4-10.4 [facility] Comment on above: Performed By: #### H OMCY, FOLT3, HEMDF, BMP3M #### [facility] [address] [place] [address] #### MMA2 #### The performing lab is in the report. Glucose [Mass/Vol] 144 mg/dL High 70-100 [facility] Comment on above: Performed By: #### H OMCY, FOLT3, HEMDF, BMP3M #### [facility] [address] [place] [address] #### MMA2 #### The performing lab is in the report. ALP [Catalytic activity/Vol] 71 U/L Normal 38-126 [facility] Comment on above: Performed By: #### H OMCY, FOLT3, HEMDF, BMP3M #### [facility] [address] [place] [address] #### MMA2 #### The performing lab is in the report. ALT [Catalytic activity/Vol] 29 U/L Normal 0-49 [facility] Comment on above: Result Comment: The ALT test is performed by an updated assay method. Please note that the reference intervals have been changed and are now sex specific. Performed By: #### H OMCY, FOLT3, HEMDF, BMP3M #### [facility] [address] [place] [address] #### MMA2 #### The performing lab is in the report. Anion gap [Moles/Vol] 4 mmol/L Normal 3-13 [facility] Comment on above: Performed By: #### H OMCY, FOLT3, HEMDF, BMP3M #### [facility] [address] [place] [address] #### MMA2 #### The performing lab is in the report. AST [Catalytic activity/Vol] 27 U/L Normal 15-46 [facility] Comment on above: Performed By: #### H OMCY, FOLT3, HEMDF, BMP3M #### [facility] [address] [place] [address] #### MMA2 #### The performing lab is in the report. Bilirubin [Mass/Vol] 0.3 mg/dL Normal 0.2-1.3 [facility] Comment on above: Performed By: #### H OMCY, FOLT3, HEMDF, BMP3M #### [facility] [facility] [address] [place] [address] #### MMA2 #### The performing lab is in the report. CO2 [Moles/Vol] 28 mmol/L Normal 22-30 [facility] Comment on above: Performed By: #### H OMCY, FOLT3, HEMDF, BMP3M #### [facility] [address] [place] [address] #### MMA2 #### The performing lab is in the report. Creatinine [Mass/Vol] 0.70 mg/dL Normal 0.52-1.25 [facility] Comment on above: Performed By: #### H OMCY, FOLT3, HEMDF, BMP3M #### [facility] [address] [place] [address] #### MMA2 #### The performing lab is in the report. eGFR OTHER > 90.0 Normal >60 [facility] Comment on above: Result Comment: KDIG O guidelines provide the following GFR categories: Stage GFR(ml/min/1.73 m2) Terms G1 >=90 Normal or high G2 60-89 Mildly decreased* G3a 45-59 Mildly to moderately decreased G3b 30-44 Moderately to severely decreased G4 15-29 Severely decreased G5 <15 Kidney failure *Relative to young adult level. In the absence of evidence of kidney damage, neither GFR category G1 nor G2 fulfill the criteria for CKD. The CKD-EPI equation is validated in individuals 18 years of age and older. Currently the best equation for estimating glomerular filtration rate (GFR) from serum creatinine in children is the Bedside Balbuena equation. It is less accurate in patients with extremes of muscle mass, restriction of dietary protein, ingestion of creatine, extra-renal metabolism of creatinine, or treatment with medications that affect renal tubular creatinine secretion. Performed By: #### H OMCY, FOLT3, HEMDF, BMP3M #### [facility] [address] [place] [address] #### MMA2 #### The performing lab is in the report. GFR/1.73 sq M.predicted among blacks MDRD (S/P/Bld) [Vol rate/Area] mL/min/{1.73_m2} Normal >60 [facility] Comment on above: Performed By: #### H OMCY, FOLT3, HEMDF, BMP3M #### [facility] [address] [place] [address] #### MMA2 #### The performing lab is in the report. Protein [Mass/Vol] 6.0 g/dL Low 6.3-8.2 [facility] Comment on above: Performed By: #### H OMCY, FOLT3, HEMDF, BMP3M #### [facility] [address] [place] [address] #### MMA2 #### The performing lab is in the report. Urea nitrogen [Mass/Vol] 19 mg/dL High 7-17 [facility] Comment on above: Performed By: #### H OMCY, FOLT3, HEMDF, BMP3M #### [facility] [address] [place] [address] #### MMA2 #### The performing lab is in the report. Potassium [Moles/Vol] 3.9 mmol/L Normal 3.5-5.1 [facility] Comment on above: Performed By: #### H OMCY, FOLT3, HEMDF, BMP3M #### [facility] [address] [place] [address] #### MMA2 #### The performing lab is in the report. Albumin [Mass/Vol] 3.4 g/dL Low 3.5-5.0 [facility] Comment on above: Performed By: #### H OMCY, FOLT3, HEMDF, BMP3M #### [facility] [address] [place] [address] #### MMA2 #### The performing lab is in the report. Chloride [Moles/Vol] 101 mmol/L Normal 98-107 [facility] Comment on above: Performed By: #### H OMCY, FOLT3, HEMDF, BMP3M #### [facility] [address] [place] [address] #### MMA2 #### The performing lab is in the report. Sodium [Moles/Vol] 133 mmol/L Low 135-145 [facility] Comment on above: Performed By: #### H OMCY, FOLT3, HEMDF, BMP3M #### [facility] [address] [place] [address] #### MMA2 #### The performing lab is in the report. Hemogramon 04-08-2021 Erythrocyte distribution width (RBC) [Ratio] 15.7 % High 11.5-14.5 [facility] Comment on above: Performed By: #### H OMCY, FOLT3, HEMDF, BMP3M #### [facility] [address] [place] [address] #### MMA2 #### The performing lab is in the report. Hematocrit (Bld) [Volume fraction] 37.2 % Low 40.0-52.0 [facility] Comment on above: Performed By: #### H OMCY, FOLT3, HEMDF, BMP3M #### [facility] [address] [place] [address] #### MMA2 #### The performing lab is in the report. Hemoglobin (Bld) [Mass/Vol] 12.1 g/dL Low 13.0-18.0 [facility] Comment on above: Performed By: #### H OMCY, FOLT3, HEMDF, BMP3M #### [facility] [address] [place] [id number] #### MMA2 #### The performing lab is in the report. MCH (RBC) [Entitic mass] 29.0 pg Normal 26.0-34.0 [facility] Comment on above: Performed By: #### H OMCY, FOLT3, HEMDF, BMP3M #### [facility] [address] [place] [address] #### MMA2 #### The performing lab is in the report. MCHC 32.6 % Normal 32.0-36.0 [facility] Comment on above: Performed By: #### H OMCY, FOLT3, HEMDF, BMP3M #### [facility] [address] [place] [address] #### MMA2 #### The performing lab is in the report. MCV (RBC) [Entitic vol] 88.8 fL Normal 80.0-98.0 [facility] Comment on above: Performed By: #### H OMCY, FOLT3, HEMDF, BMP3M #### [facility] [address] [place] [address] #### MMA2 #### The performing lab is in the report. Platelet mean volume (Bld) [Entitic vol] 8.2 fL Normal 7.4-10.4 [facility] Comment on above: Performed By: #### H OMCY, FOLT3, HEMDF, BMP3M #### [facility] [address] [place] [address] #### MMA2 #### The performing lab is in the report. Platelets (Bld) [#/Vol] 186 10*3/uL Normal 140-440 [facility] Comment on above: Performed By: #### H OMCY, FOLT3, HEMDF, BMP3M #### [facility] [address] [place] [address] #### MMA2 #### The performing lab is in the report. RBC (Bld) [#/Vol] 4.18 10*6/uL Low 4.40-5.90 [facility] Comment on above: Performed By: #### H OMCY, FOLT3, HEMDF, BMP3M #### [facility] [address] [place] [address] #### MMA2 #### The performing lab is in the report. WBC (Bld) [#/Vol] 4.9 10*3/uL Normal 3.6-10.7 [facility] Comment on above: Performed By: #### H OMCY, FOLT3, HEMDF, BMP3M #### [facility] [address] [place] [address] #### MMA2 #### The performing lab is in the report. Procalcitoninon 04-08-2021 Procalcitonin 0.03 ng/mL Normal 0.00-0.09 [facility] Comment on above: Performed By: #### H OMCY, FOLT3, HEMDF, BMP3M #### [facility] [address] [place] [address] #### MMA2 #### The performing lab is in the report. Interpretation See Below Normal [facility] Comment on above: Result Comment: PCT <0.50 = Low risk of severe sepsis and/or septic shock. PCT >2.00 = High risk of severe sepsis and/or septic shock. Performed By: #### H OMCY, FOLT3, HEMDF, BMP3M #### [facility] [address] [place] [address] #### MMA2 #### The performing lab is in the report. Staph Aureus Complete Nasalo n 04-08-2021 Staph Aureus Complete Nasal Staph Screen --> Status: F No S. aureus detected. Negative nasal MRSA PCR has a high negative predictive value for MRSA pneumonia. Consider stopping vancomycin if no other clinical indication. Contact Antimicrobial Stewardship for further recommendations. The analytical performance characteristics of this assay have been determined by [employer] in accordance with CLIA regulations. The modifications have not been cleared or approved by the U. S. Food and Drug Administration; however, the FDA has determined that such clearance or approval is not necessary. Negative nasal MRSA PCR has a high negative predictive value for MRSA pneumonia. Consider stopping vancomycin if no other clinical indication. Contact Antimicrobial Stewardship for further recommendations. The analytical performance characteristics of this assay have been determined by [employer] in accordance with CLIA regulations. The modifications have not been cleared or approved by the U. S. Food and Drug Administration; however, the FDA has determined that such clearance or approval is not necessary. Normal [facility] Comment on above: Performed By: #### H BURKE BMP3M #### [facility] [address] [place] [address] C-Reactive Proteinon CRP [Mass/Vol] 16.2 mg/L High 0.0-9.9 [facility] Comment on above: Order Comment: Sligh t Hemolysis. Result Comment: . Performed By: #### C MP3, CRP2, HEMOG ####[facility] [place] [address] Comp Metabolic Panelon 04-07 ALT [Catalytic activity/Vol] 13 U/L Normal 0-49 [facility] Comment on above: Order Comment: Sligh t Hemolysis. Result Comment: The ALT test is performed by an updated assay method. Please note that the reference intervals have been changed and are now sex specific. Performed By: #### H BURKE BMP3M #### [facility] [address] [place] [address] Calcium [Mass/Vol] 8.2 mg/dL Low 8.4-10.4 [facility] Comment on above: Order Comment: Sligh t Hemolysis. Performed By: #### H BURKE BMP3M #### [facility] [address] [place] [address] Glucose [Mass/Vol] 154 mg/dL High 70-100 [facility] Comment on above: Order Comment: Sligh t Hemolysis. Performed By: #### H BURKE BMP3M #### [facility] [address] [place] [address] Urea nitrogen [Mass/Vol] 20 mg/dL High 7-17 [facility] Comment on above: Order Comment: Sligh t Hemolysis. Performed By: #### H BURKE BMP3M #### [facility] [address] [place] [address] ALP [Catalytic activity/Vol] 59 U/L Normal 38-126 [facility] Comment on above: Order Comment: Sligh t Hemolysis. Performed By: #### H BURKE BMP3M #### [facility] [address] [place] [address] Anion gap [Moles/Vol] 5 mmol/L Normal 3-13 [facility] Comment on above: Order Comment: Sligh t Hemolysis. Performed By: #### H EMDF, BMP3M #### [facility] [address] [place] [address] AST [Catalytic activity/Vol] 19 U/L Normal 15-46 [facility] Comment on above: Order Comment: Sligh t Hemolysis. Performed By: #### H EMDF, BMP3M #### [facility] [address] [place] [address] Bilirubin [Mass/Vol] 0.5 mg/dL Normal 0.2-1.3 [facility] Comment on above: Order Comment: Sligh t Hemolysis. Performed By: #### H EMDF, BMP3M #### [facility] [address] [place] [address] CO2 [Moles/Vol] 26 mmol/L Normal 22-30 [facility] Comment on above: Order Comment: Sligh t Hemolysis. Performed By: #### H EMDF, BMP3M #### [facility] [address] [place] [address] Creatinine [Mass/Vol] 0.77 mg/dL Normal 0.52-1.25 [facility] Comment on above: Order Comment: Sligh t Hemolysis. Performed By: #### H EMDF, BMP3M #### [facility] [address] [place] [address] eGFR OTHER > 90.0 Normal >60 [facility] Comment on above: Order Comment: Sligh t Hemolysis. Result Comment: KDIG O guidelines provide the following GFR categories: Stage GFR(ml/min/1.73 m2) Terms G1 >=90 Normal or high G2 60-89 Mildly decreased* G3a 45-59 Mildly to moderately decreased G3b 30-44 Moderately to severely decreased G4 15-29 Severely decreased G5 <15 Kidney failure *Relative to young adult level. In the absence of evidence of kidney damage, neither GFR category G1 nor G2 fulfill the criteria for CKD. The CKD-EPI equation is validated in individuals 18 years of age and older. Currently the best equation for estimating glomerular filtration rate (GFR) from serum creatinine in children is the Bedside Balbuena equation. It is less accurate in patients with extremes of muscle mass, restriction of dietary protein, ingestion of creatine, extra-renal metabolism of creatinine, or treatment with medications that affect renal tubular creatinine secretion. Performed By: #### LEELEE TELLO3M #### [facility] [address] [place] [address] GFR/1.73 sq M.predicted among blacks MDRD (S/P/Bld) [Vol rate/Area] mL/min/{1.73_m2} Normal >60 [facility] Comment on above: Order Comment: Sligh t Hemolysis. Performed By: #### Aaliyah TURK BMP3M #### [facility] [address] [place] [address] Protein [Mass/Vol] 6.0 g/dL Low 6.3-8.2 [facility] Comment on above: Order Comment: Sligh t Hemolysis. Performed By: #### Aaliyah TURK BMP3M #### [facility] [address] [place] [address] Potassium [Moles/Vol] 4.0 mmol/L Normal 3.5-5.1 [facility] Comment on above: Order Comment: Sligh t Hemolysis. Performed By: #### Aaliyah TURK BMP3M #### [facility] [address] [place] [address] Albumin [Mass/Vol] 3.3 g/dL Low 3.5-5.0 [facility] Comment on above: Order Comment: Sligh t Hemolysis. Performed By: #### Aaliyah TURK BMP3M #### [facility] [address] [place] [address] Chloride [Moles/Vol] 101 mmol/L Normal 98-107 [facility] Comment on above: Order Comment: Sligh t Hemolysis. Performed By: #### Aaliyah TURK BMP3M #### [facility] [address] [place] [address] Sodium [Moles/Vol] 132 mmol/L Low 135-145 [facility] Comment on above: Order Comment: Sligh t Hemolysis. Performed By: #### H AMBERF, BMP3M #### [facility] [address] [place] [address] Hemogramon 04-07-2021 Erythrocyte distribution width (RBC) [Ratio] 15.5 % High 11.5-14.5 [facility] Comment on above: Performed By: #### C MP3, CRP2, HEMOG ####[facility] [facility] [address] [place] [place] [address] Hematocrit (Bld) [Volume fraction] 35.8 % Low 40.0-52.0 [facility] Comment on above: Performed By: #### C MP3, CRP2, HEMOG ####[address] [place] [address] Hemoglobin (Bld) [Mass/Vol] 11.7 g/dL Low 13.0-18.0 [facility] Comment on above: Performed By: #### C MP3, CRP2, HEMOG ####[address] [facility] [place] [address] MCH (RBC) [Entitic mass] 29.3 pg Normal 26.0-34.0 [facility] Comment on above: Performed By: #### C MP3, CRP2, HEMOG ####[address] [facility] [place] [address] MCHC 32.8 % Normal 32.0-36.0 [facility] Comment on above: Performed By: #### C MP3, CRP2, HEMOG ####[address] [place] [address] MCV (RBC) [Entitic vol] 89.4 fL Normal 80.0-98.0 [facility] Comment on above: Performed By: #### C MP3, CRP2, HEMOG ####[address] [place] [address] Platelet mean volume (Bld) [Entitic vol] 8.8 fL Normal 7.4-10.4 [facility] Comment on above: Performed By: #### C MP3, CRP2, HEMOG ####[address] [place] [place] [address] Platelets (Bld) [#/Vol] 166 10*3/uL Normal 140-440 [facility] Comment on above: Performed By: #### C MP3, CRP2, HEMOG ####[facility] [place] [address] RBC (Bld) [#/Vol] 4.00 10*6/uL Low 4.40-5.90 [facility] Comment on above: Performed By: #### C MP3, CRP2, HEMOG ####[facility] [place] [address] WBC (Bld) [#/Vol] 5.5 10*3/uL Normal 3.6-10.7 [facility] Comment on above: Performed By: #### C MP3, CRP2, HEMOG ####[facility] [place] [address] STAIN GRAMon 04-07-2021 STAIN GRAM STAIN GRAM --> Statu s: F Moderate polymorphonuclear cells/lpf. Moderate epithelial cells/lpf. Few gram positive cocci in clusters. Few gram positive cocci in pairs and chains. Few gram positive bacilli. Rare gram negative diplococci. Moderate epithelial cells/lpf. Few gram positive cocci in clusters. Few gram positive cocci in pairs and chains. Few gram positive bacilli. Rare gram negative diplococci. Normal [facility] Comment on above: Performed By: #### H EMDF, BMP3M #### [facility] [address] [place] [address] C-Reactive Proteinon 022 CRP [Mass/Vol] 33.5 mg/L High 0.0-9.9 [facility] Comment on above: Result Comment: . Performed By: #### H OMCY, FOLT3, HEMDF, BMP3M #### [facility] [address] [place] [address] #### MMA2 #### The performing lab is in the report. Comp Metabolic Panelon 04-06 Calcium [Mass/Vol] 8.4 mg/dL Normal 8.4-10.4 [facility] Comment on above: Performed By: #### H OMCY, FOLT3, HEMDF, BMP3M #### [facility] [address] [place] [address] #### MMA2 #### The performing lab is in the report. Glucose [Mass/Vol] 143 mg/dL High 70-100 [facility] Comment on above: Performed By: #### H OMCY, FOLT3, HEMDF, BMP3M #### [facility] [address] [place] [address] #### MMA2 #### The performing lab is in the report. ALP [Catalytic activity/Vol] 64 U/L Normal 38-126 [facility] Comment on above: Performed By: #### H OMCY, FOLT3, HEMDF, BMP3M #### [facility] [address] [place] [address] #### MMA2 #### The performing lab is in the report. ALT [Catalytic activity/Vol] 14 U/L Normal 0-49 [facility] Comment on above: Result Comment: The ALT test is performed by an updated assay method. Please note that the reference intervals have been changed and are now sex specific. Performed By: #### H OMCY, FOLT3, HEMDF, BMP3M #### [facility] [address] [place] [address] #### MMA2 #### The performing lab is in the report. Anion gap [Moles/Vol] 5 mmol/L Normal 3-13 [facility] Comment on above: Performed By: #### H OMCY, FOLT3, HEMDF, BMP3M #### [facility] [address] [place] [address] #### MMA2 #### The performing lab is in the report. AST [Catalytic activity/Vol] 22 U/L Normal 15-46 [facility] Comment on above: Performed By: #### H OMCY, FOLT3, HEMDF, BMP3M #### [facility] [address] [place] [address] #### MMA2 #### The performing lab is in the report. Bilirubin [Mass/Vol] 0.4 mg/dL Normal 0.2-1.3 [facility] Comment on above: Performed By: #### H OMCY, FOLT3, HEMDF, BMP3M #### [facility] [address] [place] [address] #### MMA2 #### The performing lab is in the report. CO2 [Moles/Vol] 26 mmol/L Normal 22-30 [facility] Comment on above: Performed By: #### H OMCY, FOLT3, HEMDF, BMP3M #### [facility] [address] [place] [address] #### MMA2 #### The performing lab is in the report. Protein [Mass/Vol] 6.3 g/dL Normal 6.3-8.2 [facility] Comment on above: Performed By: #### H OMCY, FOLT3, HEMDF, BMP3M #### [place] [address] [place] [address] #### MMA2 #### The performing lab is in the report. Urea nitrogen [Mass/Vol] 14 mg/dL Normal 7-17 [facility] Comment on above: Performed By: #### H OMCY, FOLT3, HEMDF, BMP3M #### [place] [address] [place] [address] #### MMA2 #### The performing lab is in the report. Creatinine [Mass/Vol] 0.64 mg/dL Normal 0.52-1.25 [facility] Comment on above: Performed By: #### H OMCY, FOLT3, HEMDF, BMP3M #### [facility] [address] [place] [address] #### MMA2 #### The performing lab is in the report. eGFR OTHER > 90.0 Normal >60 [facility] Comment on above: Result Comment: KDIG O guidelines provide the following GFR categories: Stage GFR(ml/min/1.73 m2) Terms G1 >=90 Normal or high G2 60-89 Mildly decreased* G3a 45-59 Mildly to moderately decreased G3b 30-44 Moderately to severely decreased G4 15-29 Severely decreased G5 <15 Kidney failure *Relative to young adult level. In the absence of evidence of kidney damage, neither GFR category G1 nor G2 fulfill the criteria for CKD. The CKD-EPI equation is validated in individuals 18 years of age and older. Currently the best equation for estimating glomerular filtration rate (GFR) from serum creatinine in children is the Bedside Balbuena equation. It is less accurate in patients with extremes of muscle mass, restriction of dietary protein, ingestion of creatine, extra-renal metabolism of creatinine, or treatment with medications that affect renal tubular creatinine secretion. Performed By: #### H OMCY, FOLT3, HEMDF, BMP3M #### [facility] [address] [place] [address] #### MMA2 #### The performing lab is in the report. GFR/1.73 sq M.predicted among blacks MDRD (S/P/Bld) [Vol rate/Area] mL/min/{1.73_m2} Normal >60 [facility] Comment on above: Performed By: #### H OMCY, FOLT3, HEMDF, BMP3M #### [facility] [address] [place] [address] #### MMA2 #### The performing lab is in the report. Potassium [Moles/Vol] 4.1 mmol/L Normal 3.5-5.1 [facility] Comment on above: Performed By: #### H OMCY, FOLT3, HEMDF, BMP3M #### [facility] [address] [place] [address] #### MMA2 #### The performing lab is in the report. Albumin [Mass/Vol] 3.5 g/dL Normal 3.5-5.0 [facility] Comment on above: Performed By: #### H OMCY, FOLT3, HEMDF, BMP3M #### [facility] [address] [place] [address] #### MMA2 #### The performing lab is in the report. Chloride [Moles/Vol] 101 mmol/L Normal 98-107 [facility] Comment on above: Performed By: #### H OMCY, FOLT3, HEMDF, BMP3M #### [facility] [address] [place] [address] #### MMA2 #### The performing lab is in the report. Sodium [Moles/Vol] 131 mmol/L Low 135-145 [facility] Comment on above: Performed By: #### H OMCY, FOLT3, HEMDF, BMP3M #### [facility] [address] [place] [address] #### MMA2 #### The performing lab is in the report. D-Dimer, Innovanceon 022 D-Dimer, Innovance 0.49 mg/L Normal <0.19-0.50 [facility] Comment on above: Result Comment: Inno jeter D-Dimer values of <0.50 mg/L FEU can be used in combination with a pre-test probability model (e.g. Well's) to exclude pulmonary embolism (PE) disease, as well as an aid in the diagnosis of deep vein thrombosis (DVT). Performed By: #### H OMCY, FOLT3, HEMDF, BMP3M #### [address] [place] [address] #### MMA2 #### The performing lab is in the report. Hemogramon 04-06-2021 Erythrocyte distribution width (RBC) [Ratio] 15.3 % High 11.5-14.5 [facility] Comment on above: Performed By: #### H OMCY, FOLT3, HEMDF, BMP3M #### [address] [place] [address] #### MMA2 #### The performing lab is in the report. Hematocrit (Bld) [Volume fraction] 36.2 % Low 40.0-52.0 [facility] Comment on above: Performed By: #### H OMCY, FOLT3, HEMDF, BMP3M #### [facility] [address] [facility] [place] [address] #### MMA2 #### The performing lab is in the report. Hemoglobin (Bld) [Mass/Vol] 12.2 g/dL Low 13.0-18.0 [facility] Comment on above: Performed By: #### H OMCY, FOLT3, HEMDF, BMP3M #### [address] [place] [address] #### MMA2 #### The performing lab is in the report. MCH (RBC) [Entitic mass] 29.9 pg Normal 26.0-34.0 [facility] Comment on above: Performed By: #### H OMCY, FOLT3, HEMDF, BMP3M #### [facility] [address] [place] [address] #### MMA2 #### The performing lab is in the report. MCHC 33.7 % Normal 32.0-36.0 [facility] Comment on above: Performed By: #### H OMCY, FOLT3, HEMDF, BMP3M #### [facility] [address] [facility] [place] [address] #### MMA2 #### The performing lab is in the report. MCV (RBC) [Entitic vol] 88.6 fL Normal 80.0-98.0 [facility] Comment on above: Performed By: #### H OMCY, FOLT3, HEMDF, BMP3M #### [place] [address] [place] [address] #### MMA2 #### The performing lab is in the report. Platelet mean volume (Bld) [Entitic vol] 8.8 fL Normal 7.4-10.4 [facility] Comment on above: Performed By: #### H OMCY, FOLT3, HEMDF, BMP3M #### [facility] [address] [place] [address] #### MMA2 #### The performing lab is in the report. Platelets (Bld) [#/Vol] 113 10*3/uL Low 140-440 [facility] Comment on above: Performed By: #### H OMCY, FOLT3, HEMDF, BMP3M #### [facility] [address] [place] [address] #### MMA2 #### The performing lab is in the report. RBC (Bld) [#/Vol] 4.09 10*6/uL Low 4.40-5.90 [facility] Comment on above: Performed By: #### H OMCY, FOLT3, HEMDF, BMP3M #### [facility] [address] [place] [address] #### MMA2 #### The performing lab is in the report. WBC (Bld) [#/Vol] 3.5 10*3/uL Low 3.6-10.7 [facility] Comment on above: Performed By: #### H OMCY, FOLT3, HEMDF, BMP3M #### [facility] [address] [place] [address] #### MMA2 #### The performing lab is in the report. C-Reactive Proteinon CRP [Mass/Vol] 58.5 mg/L High 0.0-9.9 [facility] Comment on above: Result Comment: . Performed By: #### H OMCY, FOLT3, HEMDF, BMP3M #### [facility] [address] [place] [address] #### MMA2 #### The performing lab is in the report. D-Dimer, Innovanceon D-Dimer, Innovance 0.32 mg/L Normal <0.19-0.50 [facility] Comment on above: Result Comment: Inno jeter D-Dimer values of <0.50 mg/L FEU can be used in combination with a pre-test probability model (e.g. Well's) to exclude pulmonary embolism (PE) disease, as well as an aid in the diagnosis of deep vein thrombosis (DVT). Performed By: #### H OMCY, FOLT3, HEMDF, BMP3M #### [facility] [address] [place] [address] #### MMA2 #### The performing lab is in the report. Hemogram w/ Autodiffon 04-05 Abs Baso Cnt 0.0 10*3/uL Normal 0.0-0.2 [facility] Comment on above: Performed By: #### H OMCY, FOLT3, HEMDF, BMP3M #### [facility] [address] [place] [address] #### MMA2 #### The performing lab is in the report. Abs Neutrophile Cnt 3.2 10*3/uL Normal 1.8-7.0 [facility] Comment on above: Performed By: #### H OMCY, FOLT3, HEMDF, BMP3M #### [facility] [address] [place] [address] #### MMA2 #### The performing lab is in the report. Basophils/100 WBC (Bld) 0.2 % Normal 0.0-2.0 [facility] Comment on above: Performed By: #### H OMCY, FOLT3, HEMDF, BMP3M #### [facility] [address] [place] [address] #### MMA2 #### The performing lab is in the report. Eosinophils (Bld) [#/Vol] 0.0 10*3/uL Normal 0.0-0.5 [facility] Comment on above: Performed By: #### H OMCY, FOLT3, HEMDF, BMP3M #### [facility] [address] [place] [address] #### MMA2 #### The performing lab is in the report. Eosinophils/100 WBC (Bld) 0.0 % Low 1.0-6.0 [facility] Comment on above: Performed By: #### H OMCY, FOLT3, HEMDF, BMP3M #### [facility] [address] [place] [address] #### MMA2 #### The performing lab is in the report. Erythrocyte distribution width (RBC) [Ratio] 15.5 % High 11.5-14.5 [facility] Comment on above: Performed By: #### H OMCY, FOLT3, HEMDF, BMP3M #### [facility] [address] [place] [address] #### MMA2 #### The performing lab is in the report. Granulocytes/100 WBC (Bld) 90.2 % High 40.0-80.0 [facility] Comment on above: Performed By: #### H OMCY, FOLT3, HEMDF, BMP3M #### [facility] [address] [place] [address] #### MMA2 #### The performing lab is in the report. Hematocrit (Bld) [Volume fraction] 40.1 % Normal 40.0-52.0 [facility] Comment on above: Performed By: #### H OMCY, FOLT3, HEMDF, BMP3M #### [facility] [address] [place] [address] #### MMA2 #### The performing lab is in the report. Hemoglobin (Bld) [Mass/Vol] 13.4 g/dL Normal 13.0-18.0 [facility] Comment on above: Performed By: #### H OMCY, FOLT3, HEMDF, BMP3M #### [facility] [address] [place] [address] #### MMA2 #### The performing lab is in the report. Lymphocytes (Bld) [#/Vol] 0.2 10*3/uL Low 1.0-4.3 [facility] Comment on above: Performed By: #### H OMCY, FOLT3, HEMDF, BMP3M #### [facility] [address] [place] [address] #### MMA2 #### The performing lab is in the report. Lymphocytes/100 WBC (Bld) 6.8 % Low 20.0-40.0 [facility] Comment on above: Performed By: #### H OMCY, FOLT3, HEMDF, BMP3M #### [facility] [address] [place] [address] #### MMA2 #### The performing lab is in the report. MCH (RBC) [Entitic mass] 29.6 pg Normal 26.0-34.0 [facility] Comment on above: Performed By: #### H OMCY, FOLT3, HEMDF, BMP3M #### [facility] [address] [place] [address] #### MMA2 #### The performing lab is in the report. MCHC 33.4 % Normal 32.0-36.0 [facility] Comment on above: Performed By: #### H OMCY, FOLT3, HEMDF, BMP3M #### [facility] [address] [place] [address] #### MMA2 #### The performing lab is in the report. MCV (RBC) [Entitic vol] 88.4 fL Normal 80.0-98.0 [facility] Comment on above: Performed By: #### H OMCY, FOLT3, HEMDF, BMP3M #### [facility] [address] [place] [address] #### MMA2 #### The performing lab is in the report. Monocytes (Bld) [#/Vol] 0.1 10*3/uL Normal 0.0-0.8 [facility] Comment on above: Performed By: #### H OMCY, FOLT3, HEMDF, BMP3M #### [facility] [address] [place] [address] #### MMA2 #### The performing lab is in the report. Monocytes/100 WBC (Bld) 2.8 % Normal 2.0-10.0 [facility] Comment on above: Performed By: #### H OMCY, FOLT3, HEMDF, BMP3M #### [facility] [address] [place] [address] #### MMA2 #### The performing lab is in the report. Platelet mean volume (Bld) [Entitic vol] 8.6 fL Normal 7.4-10.4 [facility] Comment on above: Performed By: #### H OMCY, FOLT3, HEMDF, BMP3M #### [facility] [address] [place] [address] #### MMA2 #### The performing lab is in the report. Platelets (Bld) [#/Vol] 119 10*3/uL Low 140-440 [facility] Comment on above: Performed By: #### H OMCY, FOLT3, HEMDF, BMP3M #### [facility] [address] [place] [address] #### MMA2 #### The performing lab is in the report. RBC (Bld) [#/Vol] 4.54 10*6/uL Normal 4.40-5.90 [facility] Comment on above: Performed By: #### H OMCY, FOLT3, HEMDF, BMP3M #### [facility] [address] [place] [address] #### MMA2 #### The performing lab is in the report. WBC (Bld) [#/Vol] 3.6 10*3/uL Normal 3.6-10.7 [facility] Comment on above: Performed By: #### H OMCY, FOLT3, HEMDF, BMP3M #### [facility] [address] [place] [address] #### MMA2 #### The performing lab is in the report. Procalcitoninon 04-05-2021 Procalcitonin 0.06 ng/mL Normal 0.00-0.09 [facility] Comment on above: Performed By: #### H OMCY, FOLT3, HEMDF, BMP3M #### [facility] [address] [place] [address] #### MMA2 #### The performing lab is in the report. Interpretation See Below Normal [facility] Comment on above: Result Comment: PCT <0.50 = Low risk of severe sepsis and/or septic shock. PCT >2.00 = High risk of severe sepsis and/or septic shock. Performed By: #### H OMCY, FOLT3, HEMDF, BMP3M #### [facility] [address] [place] [address] #### MMA2 #### The performing lab is in the report. Troponin Ion 04-05-2021 Troponin I.cardiac [Mass/Vol] ng/mL Normal 0.000-0.034 [facility] Comment on above: Result Comment: . Performed By: #### H OMCY, FOLT3, HEMDF, BMP3M #### [facility] [address] [place] [address] #### MMA2 #### The performing lab is in the report. Vit D 25-OH, Totalon 01-23-2 022 Vit D 25-OH, Total 16 ng/mL Low 30-100 [facility] Comment on above: Result Comment: Ther apy is based on measurement of Total 25- OHD with the following classification levels: Less than 20 ng/mL: Indicative of Vit D deficiency 20-30 ng/mL: Suggests Vit D insufficiency Optimal: Greater than or equal to 30 ng/mL Test performed by [employer] Immunoassay, measuring Total Vitamin D, not individual fractions. Performed By: #### H OMCY, FOLT3, HEMDF, BMP3M #### [facility] [address] [place] [address] #### MMA2 #### The performing lab is in the report. Basic Metabolic Panelon 03-15 Anion gap [Moles/Vol] 7 mmol/L Normal 3-13 [facility] Comment on above: Performed By: #### H EMDF, BMP3M #### [facility] [address] [place] [address] Calcium [Mass/Vol] 8.5 mg/dL Normal 8.4-10.4 [facility] Comment on above: Performed By: #### H EMDF, BMP3M #### [facility] [address] [place] [address] CO2 [Moles/Vol] 29 mmol/L Normal 22-30 [facility] Comment on above: Performed By: #### H EMDF, BMP3M #### [facility] [address] [place] [address] Glucose [Mass/Vol] 97 mg/dL Normal 70-100 [facility] Comment on above: Performed By: #### H EMDF, BMP3M #### [facility] [address] [place] [address] Urea nitrogen [Mass/Vol] 15 mg/dL Normal 7-17 [facility] Comment on above: Performed By: #### H EMDF, BMP3M #### [facility] [address] [place] [address] Creatinine [Mass/Vol] 0.82 mg/dL Normal 0.52-1.25 [facility] Comment on above: Performed By: #### H EMDF, BMP3M #### [facility] [address] [place] [address] eGFR OTHER > 90.0 Normal >60 [facility] Comment on above: Result Comment: KDIG O guidelines provide the following GFR categories: Stage GFR(ml/min/1.73 m2) Terms G1 >=90 Normal or high G2 60-89 Mildly decreased* G3a 45-59 Mildly to moderately decreased G3b 30-44 Moderately to severely decreased G4 15-29 Severely decreased G5 <15 Kidney failure *Relative to young adult level. In the absence of evidence of kidney damage, neither GFR category G1 nor G2 fulfill the criteria for CKD. The CKD-EPI equation is validated in individuals 18 years of age and older. Currently the best equation for estimating glomerular filtration rate (GFR) from serum creatinine in children is the Bedside Balbuena equation. It is less accurate in patients with extremes of muscle mass, restriction of dietary protein, ingestion of creatine, extra-renal metabolism of creatinine, or treatment with medications that affect renal tubular creatinine secretion. Performed By: #### H LEELEE TURK3M #### [facility] [address] [place] [address] GFR/1.73 sq M.predicted among blacks MDRD (S/P/Bld) [Vol rate/Area] mL/min/{1.73_m2} Normal >60 [facility] Comment on above: Performed By: #### H BURKE BMP3M #### [facility] [address] [place] [address] Chloride [Moles/Vol] 96 mmol/L Low 98-107 [facility] Comment on above: Performed By: #### H BURKE BMP3M #### [facility] [address] [place] [address] Potassium [Moles/Vol] 3.5 mmol/L Normal 3.5-5.1 [facility] Comment on above: Performed By: #### H BURKE BMP3M #### [facility] [address] [place] [address] Sodium [Moles/Vol] 132 mmol/L Low 135-145 [facility] Comment on above: Performed By: #### H BURKE BMP3M #### [facility] [address] [place] [address] CR Chest Portableon 04-04-19 CR Chest Portable Patient Name: LUIS STEELE Diagnostic Radiology ACCESSION EXAM DATE/TIME PROCEDURE ORDERING PROVIDER [id number] 04/04/2021 20:27 EST CR Chest Portable [id number] SELENA RAINEY CPT code 61477 Reason For Exam (CR Chest Portable) Dyspnea Report CHEST PORTABLE CLINICAL INDICATION: Dyspnea TECHNIQUE: Portable chest x-ray(s). COMPARISON: None. FINDINGS: Cardiac and mediastinal silhouette within normal limits. Lungs are hyperinflated, with surgical clips project over the right upper lung, probable bullous changes over the left inferolateral lung and scattered atelectatic change or scarring bilaterally. No significant vascular congestion. No focal consolidation or apparent pneumothorax. Old fracture deformity in left posterolateral 7th rib. Remainder of bony thorax grossly unremarkable. IMPRESSION: 1. Hyperinflation and probable chronic interstitial change or scarring scattered bilaterally. 2. No other acute findings. Report Dictated on Workstation: RITO Final Dictating Physician: MD YODER WENDELL Signed Date and Time: 04/04/2021 8:35 pm Signed by: MD YODER WENDELL Transcribed Date and Time: 04/04/2021 8:36 Normal [facility] ED [facility] : 1970 Date of Evaluation: 04/04/2021 ED TAM Provider: KARSTEN Bowens CNP EDcare was supervised by Dr. Chandra who independently examined and evaluated the patient. Please see their attestation note for further details. Chief Complaint Chief Complaint Patient presents with ? Shortness of Breath VENETIE I was wearing appropriate PPE during entire encounter. Luis Steele is a 50 y.o. male Who presents to the emergency department with shortness of breath. Patient reported symptoms began yesterday. Patient reports in general he has been sick for years however yesterday with increased shortness of breath. He then reports today even worsening shortness of breath and cough. Patient reports he does wear oxygen continuously at home between 2 and 3 L via nasal cannula. Patient reported increasing his oxygen to 4 L today as well as using home rescue inhaler with no improvement in shortness of breath symptoms so therefore called EMS. Patient reports upon EMS arrival he was low to mid 80s for pulse ox on his 4 liters via nasal cannula. Patient reports he has also had some chest pain, nausea, vomiting. He denies any abdominal pain ordiarrhea. Patient reports no fever, chills, diaphoresis. Patient does endorse some feelings of lightheadedness. Patient reports chronic tobacco use, COPD. Patient does endorse quitting cigarettes 1 week ago completely. Patient reported no sick contacts. He also reports unvaccinated for COVID-19. ROS: Review of Systems At least 6+ systems reviewed and otherwise acutely negative except as in the VENETIE. Past History Past Medical History: Diagnosis Date ? COPD (chronic obstructive pulmonary disease) (HCC) ? Pancreatitis Past Surgical History: Procedure Laterality Date ? LOBECTOMY Social History Socioeconomic History ? Marital status: Spouse name: Not on file ? Number of children: Not on file ? Years of education: Not on file ? Highest education level: Not on file Occupational History ? Not on file Tobacco Use ? Smoking status: Former Smoker ? Smokeless tobacco: Current User Types: Chew Substance and Sexual Activity ? Alcohol use: Yes Comment: Occasionally ? Drug use: Not Currently ? Sexual activity: Not on file Other Topics Concern ? Not on file Social History Narrative ? Not on file Social Determinants of Health Financial Resource Strain: ? Difficulty of Paying Living Expenses: Not on file Food Insecurity: ? Worried About Running Out of Food in the Last Year: Not on file ? Ran Out of Food in the Last Year: Not on file Transportation Needs: ? Lack of Transportation (Medical): Not on file ? Lack of Transportation (Non-Medical): Not on file Physical Activity: ? Days of Exercise per Week: Not on file ? Minutes of Exercise per Session: Not on file Stress: ? Feeling of Stress : Not on file Social Connections: ? Frequency of Communication with Friends and Family: Not on file ? Frequency of Social Gatherings with Friends and Family: Not on file ? Attends Taoist Services: Not on file ? Active Member of Clubs or Organizations: Not on file ? Attends Club or Organization Meetings: Not on file ? Marital Status: Not on file Intimate Partner Violence: ? Fear of Current or Ex-Partner: Not on file ? Emotionally Abused: Not on file ? Physically Abused: Not on file ? Sexually Abused: Not on file Housing Stability: ? Unable to Pay for Housing in the Last Year: Not on file ? Number of Places Lived in the Last Year: Not on file ? Unstable Housing in the Last Year: Not on file Medications/Allergies Previous Medications No medications on file Allergies Allergen Reactions ? Codeine Physical Exam ED Triage Vitals [04/04/212000] BP Temp Temp Source Pulse Resp SpO2 Height Weight 93/74 97.4 ?F (36.3 ?C) Temporal 110 26 94 % -- 130 lb (59 kg) Physical Exam Vitals and nursing note reviewed. Constitutional: Appearance: He is ill-appearing. Cardiovascular: Rate and Rhythm: Regular rhythm. Tachycardia present. Pulses: Normal pulses. Heart sounds: Normal heart sounds. Pulmonary: Effort: Tachypnea and accessory muscle usage present. Breath sounds: Decreased breath sounds and wheezing present. Abdominal: General: Bowel sounds are normal. There is no distension. Palpations: Abdomen is soft. Tenderness: There is no abdominal tenderness. Musculoskeletal: Right lower leg: No edema. Left lower leg: No edema. Skin: General: Skin is dry. Neurological: Mental Status: He is alert. Gait: Gait is intact. Psychiatric: Behavior: Behavior is cooperative. SCREENINGS D Labs: Results for orders placed or performed during the hospital encounter of 04/04/21 COVID-19, Flu A/B, and RSV Combo Specimen: Nasopharyngeal nare Result Value Ref Range SARS-CoV-2 DETECTED (A) Influenza A by (more content not included)... Normal [facility] ED Provider Note Patient, Luis Steele, is seen and examined in conjunction with advanced practice practitioner. I independently performed history, physical exam, admitted all diagnostic treatment and disposition decisions. I wore a surgical mask for the entirety of this encounter. In brief their history revealed shortness of breath and cough x1 day, acute on chronic. Patient has a history of severe lung disease, home oxygen dependent 2 to 3 L. Became increasingly short of breath and had to increase it to 4 L today. He felt lightheaded and near syncopal, nausea and vomiting, and cough. Had cold chills. Says paramedics found his pulse ox in the mid 80s percent on his home oxygen. Patient has not been vaccinated against COVID-19 Their focused exam revealed patient appears both chronically and acutely ill. He has tachypnea and increased work of breathing. Diminished breath sounds diffusely, scattered wheezes. No leg edema. Mental status is normal.. ED course: Broad work-up including labs, chest x-ray, and nasal swab for COVID-19. Steroids and aerosols. Closely monitor clinical status and vital signs. Certainly expect we will recommend hospital admission Updated 10:05 PM? EKG showed sinus tachycardia at 108 bpm. Borderline right axis deviation. Subtle ST depression inferior leads. Chest x-ray showed hyperinflation and chronic interstitial changes per radiologist. I personally reviewed the image. White blood cell count normal. Lactic acid normal. Troponin normal. BMP had minor abnormalities. Patient has received 3 aerosols and Tylenol. He has had some improvement. Were going to give a dose of steroids and consult hospitalist for admission. Nasal swab test still pending at the time of dictation Updated 10:20pm?nasal swab positive for COVID-19. Hospitalist consulted for admission. All diagnostic, treatment, and disposition decisions were made by myself in conjunction with the mid-level provider. This will serve as my Supervisory note and shared attestation. I did perform a substantive portion of the visit including all aspects of the Medical Decision Making. For all further details of the patient's emergency department visit, please see the advance practice provider's documentation. Michael Chandra MD 04/04/212219 Normal [facility] Hemogram w/ Autodiffon 04-04 Abs Baso Cnt 0.1 10*3/uL Normal 0.0-0.2 [facility] Comment on above: Performed By: #### H EMDJamee BMP3M #### [facility] [address] [place] [address] Abs Neutrophile Cnt 2.7 10*3/uL Normal 1.8-7.0 [facility] Comment on above: Performed By: #### H BURKE BMP3M #### [facility] [address] [place] [address] Basophils/100 WBC (Bld) 1.7 % Normal 0.0-2.0 [facility] Comment on above: Performed By: #### H EMDJamee BMP3M #### [facility] [address] [place] [address] Eosinophils (Bld) [#/Vol] 0.0 10*3/uL Normal 0.0-0.5 [facility] Comment on above: Performed By: #### H EMDJamee BMP3M #### [facility] [address] [place] [address] Eosinophils/100 WBC (Bld) 0.2 % Low 1.0-6.0 [facility] Comment on above: Performed By: #### H EMDJamee BMP3M #### [facility] [address] [place] [address] Erythrocyte distribution width (RBC) [Ratio] 15.5 % High 11.5-14.5 [facility] Comment on above: Performed By: #### H BURKE BMP3M #### [facility] [address] [place] [address] Granulocytes/100 WBC (Bld) 66.0 % Normal 40.0-80.0 [facility] Comment on above: Performed By: #### H BURKE BMP3M #### [facility] [address] [place] [address] Hematocrit (Bld) [Volume fraction] 41.3 % Normal 40.0-52.0 [facility] Comment on above: Performed By: #### H BURKE BMP3M #### [facility] [address] [place] [address] Hemoglobin (Bld) [Mass/Vol] 13.5 g/dL Normal 13.0-18.0 [facility] Comment on above: Performed By: #### H EMDF BMP3M #### [facility] [address] [place] [address] Lymphocytes (Bld) [#/Vol] 0.9 10*3/uL Low 1.0-4.3 [facility] Comment on above: Performed By: #### H EMDF BMP3M #### [facility] [address] [place] [address] Lymphocytes/100 WBC (Bld) 21.2 % Normal 20.0-40.0 [facility] Comment on above: Performed By: #### H EMDF BMP3M #### [facility] [address] [place] [address] MCH (RBC) [Entitic mass] 28.8 pg Normal 26.0-34.0 [facility] Comment on above: Performed By: #### H BURKE BMP3M #### [facility] [address] [place] [address] MCHC 32.6 % Normal 32.0-36.0 [facility] Comment on above: Performed By: #### H EMDJamee BMP3M #### [facility] [address] [place] [address] MCV (RBC) [Entitic vol] 88.4 fL Normal 80.0-98.0 [facility] Comment on above: Performed By: #### H BURKE BMP3M #### [facility] [address] [place] [address] Monocytes (Bld) [#/Vol] 0.4 10*3/uL Normal 0.0-0.8 [facility] Comment on above: Performed By: #### H BURKE BMP3M #### [facility] [address] [place] [address] Monocytes/100 WBC (Bld) 10.9 % High 2.0-10.0 [facility] Comment on above: Performed By: #### H EMDJamee BMP3M #### [facility] [address] [place] [address] Platelet mean volume (Bld) [Entitic vol] 9.2 fL Normal 7.4-10.4 [facility] Comment on above: Performed By: #### H EMDF BMP3M #### [facility] [address] [place] [address] Platelets (Bld) [#/Vol] 143 10*3/uL Normal 140-440 [facility] Comment on above: Performed By: #### H EMDF BMP3M #### [facility] [address] [place] [address] RBC (Bld) [#/Vol] 4.67 10*6/uL Normal 4.40-5.90 [facility] Comment on above: Performed By: #### H EMDF BMP3M #### [facility] [address] [place] [address] WBC (Bld) [#/Vol] 4.1 10*3/uL Normal 3.6-10.7 [facility] Comment on above: Performed By: #### H BURKE [id number] #### [facility] [address] [place] [address] Lactic Acidon 04-04-2021 Lactate [Moles/Vol] 1.1 mmol/L Normal 0.7-2.0 [facility] Comment on above: Performed By: #### H BURKE BMP3M #### [facility] [address] [place] [address] SARS-CoV-2, Flu A/B and RSVo n 04-04-2021 SARS-CoV-2 (COVID-19) RNA DESTINY+probe Ql (Unsp spec) SARS-CoV-2 --> Status: F DETECTED Flu A PCR --> Status: F Not Detected. Flu B PCR --> Status: F Not Detected. RSV PCR --> Status: F Not Detected. Expected Result: Not Detected _ Method: Real-time, RT-PCR This assay was developed by [employer] and distributed under an Emergency Use Authorization (EUA) granted by the FDA for the qualitative detection of nucleic acids from SARS-CoV-2, Influenza A, Influenza B, and Respiratory Syncytial Virus. Provider and patient fact sheets can be found at https://www.fda.gov/me halle/369092/download and https://www.fda.gov/ct halle/711879/download. Expected Result: Not Detected _ Method: Real-time, RT-PCR This assay was developed by [employer] and distributed under an Emergency Use Authorization (EUA) granted by the FDA for the qualitative detection of nucleic acids from SARS-CoV-2, Influenza A, Influenza B, and Respiratory Syncytial Virus. Provider and patient fact sheets can be found at https://www.fda.gov/me halle/806110/download and https://www.fda.gov/ct halle/482703/download. Normal [facility] Comment on above: Performed By: #### H BURKE BMP3M #### [facility] [address] [place] [address] Troponin Ion 04-04-2021 Troponin I.cardiac [Mass/Vol] ng/mL Normal 0.000-0.034 [facility] Comment on above: Result Comment: . Performed By: #### H LEELEE [id number] #### [facility] [address] [place] [address] XR Chest PA and Lateralon IMPRESSION: Hyperinflation of lungs. Blunting of the costophrenic angles related to pleural fluid or pleural thickening. Booster Pump Operator: MATEO Transcribe Date/Time: Sep 05 2020 10:56A Dictated by : SUE RICO MD This examination was interpreted and the report reviewed and electronically signed by: SUE RICO MD on Sep 05 2020 11:05AM [facility] DIVISION OF RADIOLOGY * * *Final Report* * * DATE OF EXAM: Sep 05 2020 10:44AM WOX 5291 - XR CHEST 2V FRONTAL/LAT / PROCEDURE REASON: COPD with exacerbation (HCC) * * * * Physician Interpretation * * * * EXAMINATION: CHEST RADIOGRAPH (2 VIEW FRONTAL & LATERAL) CLINICAL HISTORY: COPD with exacerbation (HCC) MQ: XC2_6 EXAM DATE/TIME: 09/05/2020 10:44 AM COMPARISON: 11/14/2014 RESULT: Lines, tubes, and devices: None. Lungs and pleura: Nipple shadow overlying the mid left lung. Hyperinflation of the lungs. Blunting of the costophrenic angles. Chronic changes of the lung parenchyma. No confluent infiltrate or pneumothorax. Cardiomediastinal silhouette: Normal cardiomediastinal silhouette. Bones and soft tissues: Unremarkable. DIVISION OF RADIOLOGY Provider, [facility] - 09/05/2020 * * *Final Report* * * DATE OF EXAM: Sep 05 2020 10:44AM WOX 5291 - XR CHEST 2V FRONTAL/LAT / PROCEDURE REASON: COPD with exacerbation (HCC) * * * * Physician Interpretation * * * * EXAMINATION: CHEST RADIOGRAPH (2 VIEW FRONTAL & LATERAL) CLINICAL HISTORY: COPD with exacerbation (HCC) MQ: XC2_6 EXAM DATE/TIME: 09/05/2020 10:44 AM COMPARISON: 11/14/2014 RESULT: Lines, tubes, and devices: None. Lungs and pleura: Nipple shadow overlying the mid left lung. Hyperinflation of the lungs. Blunting of the costophrenic angles. Chronic changes of the lung parenchyma. No confluent infiltrate or pneumothorax. Cardiomediastinal silhouette: Normal cardiomediastinal silhouette. Bones and soft tissues: Unremarkable. IMPRESSION IMPRESSION: Hyperinflation of lungs. Blunting of the costophrenic angles related to pleural fluid or pleural thickening. Booster Pump Operator: PSCB Transcribe Date/Time: Sep 05 2020 10:56A Dictated by : SUE RICO MD This examination was interpreted and the report reviewed and electronically signed by: SUE RICO MD on Sep 05 2020 11:05AM EST [facility] Radiology Study observation (narrative) [facility] XR Chest PA and LateralOrder ed By: Ccf Provider on 09-05-2020 [facility] No Panel Information Influenza Types A,B Direct FA ([facility]) [facility] Work Phone: Vital Signs Date Time Vital Sign Value Performing Clinician Faci lity 07-31-2024 14:31-0400 Body height 177.8 cm Liztic [employer] Work Phone: [facility] 07-31-2024 14:31-0400 Body mass index (BMI) [Ratio] 24.11 kg/m2 Antwan Buchanan DO Work Phone: [facility] 07-31-2024 14:31-0400 Body temperature 98.01 [degF] Antwan Buchanan DO Work Phone: [facility] 07-31-2024 14:31-0400 Body weight 76.2 kg Antwan Buchanan DO Work Phone: [facility] 07-31-2024 14:31-0400 Diastolic blood pressure 84 mm[Hg] Antwan Buchanan DO Work Phone: [facility] 07-31-2024 14:31-0400 Heart rate 64 /min Antwan Buchanan DO Work Phone: [facility] 07-31-2024 14:31-0400 Respiratory rate 24 /min Antwan Buchanan DO Work Phone: [facility] 07-31-2024 14:31-0400 Systolic blood pressure 120 mm[Hg] Antwan Buchanan DO Work Phone: [facility] 04-06-2024 14:27-0500 Body mass index (BMI) [Ratio] 24.63 kg/m2 Pulm Wstr Work Phone: [facility] 04-06-2024 14:27-0500 Body weight 73.48 kg Pulm Wstr Work Phone: [facility] 04-29-2023 14:12-0500 Body mass index (BMI) [Ratio] 22.1 kg/m2 [facility] 04-29-2023 14:10-0500 Body height 177.8 cm [facility] 04-29-2023 14:10-0500 Body weight 69.85 kg [facility] 04-29-2023 13:26-0500 Diastolic blood pressure 86 mm[Hg] [facility] 04-29-2023 13:26-0500 Heart rate 109 /min [facility] 04-29-2023 13:26-0500 SaO2% (BldA) [Mass fraction] 94 % [facility] 04-29-2023 13:26-0500 Systolic blood pressure 120 mm[Hg] [facility] 02-18-2023 11:37-0500 Body temperature 99.3 [degF] Antwan Buchanan DO Work Phone: [facility] 02-18-2023 11:37-0500 Body weight 74.39 kg Antwan Buchanan DO Work Phone: [facility] 02-18-2023 11:37-0500 Diastolic blood pressure 80 mm[Hg] Antwan Buchanan DO Work Phone: [facility] 02-18-2023 11:37-0500 Heart rate 80 /min Antwan Buchanan DO Work Phone: [facility] 02-18-2023 11:37-0500 Respiratory rate 20 /min Antwan Buchanan DO Work Phone: [facility] 02-18-2023 11:37-0500 Systolic blood pressure 146 mm[Hg] Antwan Buchanan DO Work Phone: [facility] 02-08-2023 13:22-0500 Heart rate 106 /min Ramon Cunha MD Work Phone: [facility] 02-08-2023 13:22-0500 Respiratory rate 20 /min Ramon Cunha MD Work Phone: [facility] [employer] 02-08-2023 13:22-0500 SaO2% (BldA) [Mass fraction] 94 % Ramon Cunha MD Work Phone: [facility] [employer] 02-08-2023 09:34-0500 Body temperature 97.39 [degF] Ramon Cunha MD Work Phone: [facility] [employer] 02-08-2023 07:49-0500 Diastolic blood pressure 83 mm[Hg] Ramon Cunha MD Work Phone: [facility] [employer] 02-08-2023 07:49-0500 Systolic blood pressure 123 mm[Hg] Ramon Cunha MD Work Phone: [facility] [employer] 02-08-2023 04:24-0500 Body mass index (BMI) [Ratio] 25.56 kg/m2 Ramon Cunha MD Work Phone: [facility] [employer] 02-08-2023 04:24-0500 Body weight 80.8 kg Ramon Cunha MD Work Phone: [facility] [employer] 02-04-2023 12:42-0500 Body height 177.8 cm Ramon Cunha MD Work Phone: [facility] [employer] 02-04-2023 00:45-0500 SaO2% (BldA) [Mass fraction] 93.0 % Ramon Cunha MD Work Phone: [facility] [employer] 02-03-2023 05:47-0500 SaO2% (BldA) [Mass fraction] 93.3 % Ramon Cunha MD Work Phone: [facility] [employer] 02-02-2023 03:40-0500 SaO2% (BldA) [Mass fraction] 91.2 % Ramon Cunha MD Work Phone: [facility] [employer] 02-01-2023 04:55-0500 SaO2% (BldA) [Mass fraction] 90.8 % Ramon Cunha MD Work Phone: [facility] 01-31-2023 14:17-0500 SaO2% (BldA) [Mass fraction] 91.9 % Ramon Cunha MD Work Phone: [facility] 01-31-2023 04:09-0500 SaO2% (BldA) [Mass fraction] 96.5 % Ramon Cunha MD Work Phone: [facility] 01-30-2023 18:58-0500 SaO2% (BldA) [Mass fraction] 95.6 % Ramon Cunha MD Work Phone: [facility] 01-30-2023 17:44-0500 SaO2% (BldA) [Mass fraction] 93.4 % Ramon Cunha MD Work Phone: [facility] 01-30-2023 08:18-0500 SaO2% (BldA) [Mass fraction] 98.3 % Ramon Cunha MD Work Phone: [facility] 01-30-2023 04:02-0500 SaO2% (BldA) [Mass fraction] 99.1 % Ramon Cunha MD Work Phone: [facility] [employer] 01-29-2023 21:30-0500 SaO2% (BldA) [Mass fraction] 97.5 % Ramon Cunha MD Work Phone: [facility] [employer] 01-28-2023 04:15-0500 SaO2% (BldA) [Mass fraction] 77.8 % Ramon Cunha MD Work Phone: [facility] [employer] 12-04-2022 04:05-0400 Diastolic blood pressure 81 mm[Hg] Kelton Enrique MD Work Phone: [facility] [employer] 12-04-2022 04:05-0400 Heart rate 97 /min Kelton Enrique MD Work Phone: [facility] [employer] 12-04-2022 04:05-0400 Respiratory rate 20 /min Kelton Enrique MD Work Phone: [facility] [employer] 12-04-2022 04:05-0400 SaO2% (BldA) [Mass fraction] 98 % Kelton Enrique MD Work Phone: [facility] [employer] 12-04-2022 04:05-0400 Systolic blood pressure 127 mm[Hg] Kelton Enrique MD Work Phone: [facility] [employer] 12-04-2022 02:34-0400 Body temperature 98.1 [degF] Kelton Enrique MD Work Phone: [facility] [employer] 11-27-2022 21:12-0400 Diastolic blood pressure 99 mm[Hg] Tony Gombash DO Work Phone: [facility] [employer] 11-27-2022 21:12-0400 Heart rate 109 /min Tony Gombash DO Work Phone: [facility] [employer] 11-27-2022 21:12-0400 Respiratory rate 20 /min Tony Gombash DO Work Phone: [facility] [employer] 11-27-2022 21:12-0400 SaO2% (BldA) [Mass fraction] 96 % Tony Gombash DO Work Phone: [facility] [employer] 11-27-2022 21:12-0400 Systolic blood pressure 127 mm[Hg] Tony Gombash DO Work Phone: [facility] [employer] 11-27-2022 20:14-0400 Body mass index (BMI) [Ratio] 23.72 kg/m2 Tony Gombash DO Work Phone: [facility] [employer] 11-27-2022 20:14-0400 Body temperature 98.1 [degF] Tony Gombash DO Work Phone: [facility] [employer] 11-27-2022 20:14-0400 Body weight 77.11 kg Tony Gombash DO Work Phone: [facility] 11-14-2022 16:51-0400 Inhaled oxygen flow rate 5 L/min Dr. Antwan Buchanan Work Phone: 2(710)489-715387 [place] [address] 11-14-2022 16:51-0400 SaO2% (BldA) [Mass fraction] 89 % Dr. Antwan Buchanan Work Phone: 7(529)278-504487 [place] [address] 11-14-2022 16:38-0400 Heart rate 77 /min Dr. Antwan Buchanan Work Phone: 9(377)192-121787 [place] [address] 11-14-2022 16:38-0400 Respiratory rate 18 /min Dr. Antwan Buchanan Work Phone: 0(944)968-550187 [place] [address] 11-14-2022 15:37-0400 Body temperature 98.1 [degF] Dr. Antwan Buchanan Work Phone: 1(554)987-764687 [place] [address] 11-14-2022 15:37-0400 Diastolic blood pressure 78 mm[Hg] Dr. Antwan Buchanan Work Phone: 7(393)786-025987 [place] [address] 11-14-2022 15:37-0400 Systolic blood pressure 121 mm[Hg] Dr. Antwan Buchanan Work Phone: 1(473)075-903887 [place] [address] 11-13-2022 06:42-0400 Body weight 77.[address] Antwan Buchanan Work Phone: 1(024)361-721987 [place] [address] 11-12-2022 18:51-0400 Body height 177.[address] Antwan Buchanan Work Phone: 3(229)544-436987 [place] [address] 11-12-2022 18:51-0400 Body mass index (BMI) [Ratio] 24.6 kg/m2 Dr. Antawn Buchanan Work Phone: 7(971)365-182287 [place] [address] 10-19-2022 19:48-0400 Heart rate 97 /min Dr. Antwan Buchanan Work Phone: 1(773)514-955487 [place] [address] 10-19-2022 19:48-0400 Respiratory rate 20 /min Dr. Antwan Buchanan Work Phone: 5(726)521-490787 [place] [address] 10-19-2022 19:48-0400 SaO2% (BldA) [Mass fraction] 96 % Dr. Antwan Buchanan Work Phone: 2(145)042-612087 [place] [address] 10-19-2022 19:30-0400 Diastolic blood pressure 93 mm[Hg] Dr. Antwan Buchanan Work Phone: 2(689)304-357287 [place] [address] 10-19-2022 19:30-0400 Systolic blood pressure 133 mm[Hg] Dr. Antwan Buchanan Work Phone: 1(815)917-803887 [place] [address] 10-19-2022 18:26-0400 Inhaled oxygen flow rate 3 L/min Dr. Antwan Buchanan Work Phone: 3(400)429-622687 [place] [address] 10-19-2022 16:27-0400 Body mass index (BMI) [Ratio] 24.2 kg/m2 Dr. Antwan Buchanan Work Phone: 9(605)926-524387 [place] [address] 10-19-2022 16:27-0400 Body temperature 97.2 [degF] Dr. Antwan Buchanan Work Phone: 0(508)801-839287 [place] [address] 10-19-2022 16:27-0400 Body weight 76.[address] Antwan Buchanan Work Phone: 1(247)323-900387 [place] [address] 09-06-2022 15:34-0400 Body temperature 97.81 [degF] Antwan Buchanan DO Work Phone: 2(593)355-326986 [place] [address] 09-06-2022 15:34-0400 Body weight 73.03 kg Antwan Crenshawrison DO Work Phone: 7(764)718-827886 [place] [address] 09-06-2022 15:34-0400 Diastolic blood pressure 84 mm[Hg] Antwan Crenshawrison DO Work Phone: 1(213)179-778186 [place] [address] 09-06-2022 15:34-0400 Heart rate 92 /min Antwan Buchanan DO Work Phone: [facility] 09-06-2022 15:34-0400 Respiratory rate 24 /min Antwan Crenshawrison DO Work Phone: [facility] 09-06-2022 15:34-0400 Systolic blood pressure 154 mm[Hg] Antwan Buchanan DO Work Phone: [facility] 02-10-2022 16:02-0500 Diastolic blood pressure 92 mm[Hg] [facility] Work Phone: 02-10-2022 16:02-0500 Heart rate 93 /min [facility] Work Phone: 02-10-2022 16:02-0500 Respiratory rate 16 /min [facility] Work Phone: 02-10-2022 16:02-0500 SaO2% (BldA) [Mass fraction] 94 % [facility] Work Phone: 02-10-2022 16:02-0500 Systolic blood pressure 121 mm[Hg] [facility] Work Phone: 02-10-2022 13:13-0500 Body temperature 98.4 [degF] [facility] Work Phone: 02-10-2022 13:13-0500 Inhaled oxygen flow rate 2.5 L/min [facility] Work Phone: 02-10-2022 13:11-0500 Body height 177.8 cm [facility] Work Phone: 02-10-2022 13:11-0500 Body mass index (BMI) [Ratio] 22.6 kg/m2 [facility] Work Phone: 02-10-2022 13:11-0500 Body weight 71.4 kg [facility] Work Phone: 08-17-2021 15:55-0400 Body temperature 98.6 [degF] Dr. Antwan Buchanan Work Phone: [facility] Work Phone: 08-17-2021 15:55-0400 Diastolic blood pressure 82 mm[Hg] Dr. Antwan Buchanan Work Phone: [facility] Work Phone: 08-17-2021 15:55-0400 Heart rate 93 /min Dr. Antwan Buchanan Work Phone: [facility] Work Phone: 08-17-2021 15:55-0400 Respiratory rate 18 /min Dr. Antwan Buchanan Work Phone: [facility] Work Phone: 08-17-2021 15:55-0400 SaO2% (BldA) [Mass fraction] 99 % Dr. Antwan Buchanan Work Phone: [facility] Work Phone: 08-17-2021 15:55-0400 Systolic blood pressure 125 mm[Hg] Dr. Antwan Buchanan Work Phone: [facility] Work Phone: 08-17-2021 12:54-0400 Body height 177.[address] Antwan Buchanan Work Phone: [facility] Work Phone: 08-17-2021 12:54-0400 Body weight [address] Antwan Buchanan Work Phone: [facility] Work Phone: 08-15-2021 14:03-0400 Body temperature 97.9 [degF] [facility] Work Phone: 08-15-2021 14:03-0400 Diastolic blood pressure 85 mm[Hg] [facility] Work Phone: 08-15-2021 14:03-0400 Heart rate 107 /min [facility] Work Phone: 08-15-2021 14:03-0400 Respiratory rate 18 /min [facility] Work Phone: 08-15-2021 14:03-0400 SaO2% (BldA) [Mass fraction] 94 % [facility] Work Phone: 08-15-2021 14:03-0400 Systolic blood pressure 135 mm[Hg] [facility] Work Phone: 08-15-2021 11:42-0400 Body height 177.8 cm [facility] Work Phone: 08-15-2021 11:42-0400 Body mass index (BMI) [Ratio] 19.3 kg/m2 [facility] Work Phone: 08-15-2021 11:42-0400 Body weight 61.23 kg [facility] Work Phone: 08-01-2021 12:14-0400 Diastolic blood pressure 88 mm[Hg] DR JENSEN GARCÍA MD [facility] 08-01-2021 12:14-0400 Heart rate 94 /min DR JENSEN GARCÍA MD [facility] 08-01-2021 12:14-0400 Respiratory rate 20 /min DR JENSEN GARCÍA MD [facility] 08-01-2021 12:14-0400 Systolic blood pressure 127 mm[Hg] DR JENSEN GARCÍA MD [facility] 08-01-2021 11:32-0400 Heart rate 90 /min DR JENSEN GARCÍA MD [facility] 08-01-2021 11:32-0400 Respiratory rate 22 /min DR JENSEN GARCÍA MD [facility] 08-01-2021 11:17-0400 Body temperature 97.52 [degF] DR JENSEN GARCÍA MD [facility] 08-01-2021 11:17-0400 Body weight [address] JENSEN GARCÍA MD [facility] 08-01-2021 11:17-0400 Diastolic blood pressure 84 mm[Hg] DR JENSEN GARCÍA MD [facility] 08-01-2021 11:17-0400 Heart rate 99 /min DR JENSEN GARCÍA MD [facility] 08-01-2021 11:17-0400 Respiratory rate 22 /min DR JENSEN GARCÍA MD [facility] 08-01-2021 11:17-0400 Systolic blood pressure 146 mm[Hg] DR JENSEN GARCÍA MD [facility] 07-17-2021 19:55-0400 Diastolic blood pressure 92 mm[Hg] CLIFFORD LAI MD [facility] 07-17-2021 19:55-0400 Heart rate 92 /min CLIFFORD LAI MD [facility] 07-17-2021 19:55-0400 Respiratory rate 20 /min CLIFFORD LAI MD [facility] 07-17-2021 19:55-0400 Systolic blood pressure 131 mm[Hg] CLIFFORD LAI MD [facility] 07-17-2021 18:57-0400 Diastolic blood pressure 94 mm[Hg] CLIFFORD LAI MD [facility] 07-17-2021 18:57-0400 Heart rate 93 /min CLIFFORD LAI MD [facility] 07-17-2021 18:57-0400 Respiratory rate 20 /min CLIFFORD LAI MD [facility] 07-17-2021 18:57-0400 Systolic blood pressure 124 mm[Hg] CLIFFORD LAI MD [facility] 07-17-2021 18:44-0400 Heart rate 128 /min CLIFFORD LAI MD [facility] 07-17-2021 17:53-0400 Body temperature 98.06 [degF] CLIFFORD LAI MD [facility] 07-17-2021 17:53-0400 Body weight 62 kg CLIFFORD LAI MD [facility] 07-17-2021 17:53-0400 Diastolic blood pressure 87 mm[Hg] CLIFFORD LAI MD [facility] 07-17-2021 17:53-0400 Heart rate 131 /min CLIFFORD LAI MD [facility] 07-17-2021 17:53-0400 Respiratory rate 22 /min CLIFFORD LAI MD [facility] 07-17-2021 17:53-0400 Systolic blood pressure 116 mm[Hg] CLIFFORD LAI MD [facility] 07-16-2021 16:17-0400 Body height 172.7 cm Respiratory Wstr Work Phone: [facility] 07-16-2021 16:17-0400 Body weight 62.6 kg Respiratory Wstr Work Phone: [facility] 07-16-2021 15:02-0400 Body weight 62.6 kg Manuel Block MD Work Phone: [facility] 07-16-2021 15:02-0400 Diastolic blood pressure 88 mm[Hg] Manuel Block MD Work Phone: [facility] 07-16-2021 15:02-0400 Heart rate 119 /min Manuel Block MD Work Phone: [facility] 07-16-2021 15:02-0400 SaO2% (BldA) [Mass fraction] 96 % Manuel Block MD Work Phone: [facility] 07-16-2021 15:02-0400 Systolic blood pressure 147 mm[Hg] Manuel Block MD Work Phone: [facility] 07-12-2021 09:28-0400 SaO2% (BldA) [Mass fraction] 94 % Radhames Young MD Work Phone: [facility] 07-12-2021 07:58-0400 Body temperature 96.6 [degF] Radhames Young MD Work Phone: [facility] 07-12-2021 07:58-0400 Diastolic blood pressure 62 mm[Hg] Radhames Young MD Work Phone: [facility] 07-12-2021 07:58-0400 Heart rate 77 /min Radhames Young MD Work Phone: [facility] 07-12-2021 07:58-0400 Respiratory rate 18 /min Radhames Young MD Work Phone: [facility] 07-12-2021 07:58-0400 Systolic blood pressure 94 mm[Hg] Radhames Young MD Work Phone: [facility] 07-08-2021 05:21-0400 Body mass index (BMI) [Ratio] 18.14 kg/m2 Radhames Yougn MD Work Phone: [facility] 07-08-2021 05:21-0400 Body weight 58.97 kg Radhames Young MD Work Phone: [facility] 07-07-2021 10:49-0400 Body height 180.3 cm Radhames Young MD Work Phone: [facility] 06-21-2021 00:27-0400 Diastolic blood pressure 86 mm[Hg] DR DEVYN ROCHE MD [facility] 06-21-2021 00:27-0400 Heart rate 94 /min DR DEVYN ROCHE MD [facility] 06-21-2021 00:27-0400 Mean blood pressure 103 mm[Hg] DR DEVYN ROCHE MD [facility] 06-21-2021 00:27-0400 Respiratory rate 20 /min DR DEVYN ROCHE MD [facility] 06-21-2021 00:27-0400 Systolic blood pressure 136 mm[Hg] DR DEVYN ROCHE MD [facility] 06-20-2021 23:43-0400 Diastolic blood pressure 86 mm[Hg] DR DEVYN ROCHE MD [facility] 06-20-2021 23:43-0400 Heart rate 96 /min DR DEVYN ROCHE MD [facility] 06-20-2021 23:43-0400 Respiratory rate 22 /min DR DEVYN ROCHE MD [facility] 06-20-2021 23:43-0400 Systolic blood pressure 137 mm[Hg] DR DEVYN ROCHE MD [facility] 06-20-2021 23:11-0400 Heart rate 105 /min DR DEVYN ROCHE MD [facility] 06-20-2021 23:11-0400 Respiratory rate 24 /min DR DEVYN ROCHE MD [facility] 06-20-2021 22:42-0400 Body temperature 97.16 [degF] DR DEVYN ROCHE MD [facility] 06-20-2021 22:42-0400 Diastolic blood pressure 95 mm[Hg] DR DEVYN ROCHE MD [facility] 06-20-2021 22:42-0400 Systolic blood pressure 142 mm[Hg] DR DEVYN ROCHE MD [facility] Encounters Encounter Date Encounter Type Care Provider Facility Start: 10-22-2024 End: 10-22-2024 Refill Antwan Buchanan DO Work Phone: [facility] Comment on above: Refill Request Start: 08-06-2024 End: 08-09-2024 ambulatory Francois R Miguel [employer] Work Phone: Pulmonary Medicine Start: 07-31-2024 End: 07-31-2024 ambulatory ANTWAN Светлана BUCHANAN Facility:[facility] Start: 07-31-2024 End: 07-31-2024 Patient encounter procedure Antwan Buchanan DO Work Phone: [facility] Comment on above: SOB (shortness of br eath) (Primary Dx); Vitamin D deficiency; Chronic obstructive pulmonary disease, unspecified COPD type ([facility]); EDI (generalized anxiety disorder); Stage 4 very severe COPD by GOLD classification ([facility]); Iron deficiency anemia, unspecified iron deficiency anemia type; Fatigue, unspecified type; Dyslipidemia; Hyperglycemia Start: 07-31-2024 End: 08-08-2024 Telephone encounter Antwan Buchanan DO Work Phone: [facility] [place] Comment on above: Denial for Lung Santos splant Start: 06-13-2024 End: 06-15-2024 Refill Manuel Block MD Work Phone: [facility] Comment on above: Refill Request Start: 04-09-2024 End: 04-09-2024 Refill Manuel Block MD Work Phone: Pulmonary Medicine Comment on above: Refill Request Meds Start: 04-06-2024 End: 04-06-2024 ambulatory Pulm Lab [facility] Work Phone: PULM LAB [facility] Comment on above: Spirometry Start: 04-06-2024 End: 04-06-2024 Patient encounter procedure Pulm Lab [facility] Work Phone: PULM LAB [facility] Start: 03-23-2024 End: 03-30-2024 Refill Manuel Block MD Work Phone: Pulmonary Medicine Comment on above: Refill Request Start: 03-22-2024 End: 03-22-2024 Emergency department patient visit Antwan Buchanan Facility:[facility] Start: 03-14-2024 ambulatory Antwan Whitaker y:[facility] Start: 03-14-2024 End: 03-16-2024 Evaluation and management of inpatient Sharita Rich Facility:[facility] Start: 11-24-2023 End: 11-24-2023 ambulatory Antwan Buchanan DO Work Phone: [facility] [place] Comment on above: Oxygen Start: 08-22-2023 ambulatory Manuel Block MD Work Phone: Pulmonary Medicine Start: 08-11-2023 Telephone encounter Darcy Myers RN Pulmonary Medicine Comment on above: Missed Appointments Start: 08-11-2023 End: 08-11-2023 Subsequent hospital visit by physician Ct 2 Main Qb (I-Stat) Radiology Comment on above: 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 cand traceyte [Z76.82] Start: 08-10-2023 End: 08-10-2023 Social Work Cat KEVIN Work Phone: Transplant Center Comment on above: Arrived Encounter for medica tion review and counseling Start: 08-02-2023 Patient encounter status Darcy sena RN [facility] Work Phone: Start: 06-27-2023 Telephone encounter Lung Pre T x Main Work Phone: Pulmonary Medicine Comment on above: Return Call Request 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 cand idate (Primary Dx) 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 cand idate (Primary Dx); Bone disorder; 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; Chronic fatigue; SOB (shortness of breath) Start: 06-23-2023 ambulatory Antwan Buchanan Facilit y:[facility] Start: 06-10-2023 Telephone encounter Lung Pre T x Main Work Phone: Pulmonary Medicine Comment on above: Follow Up Start: 06-06-2023 Telephone encounter Darcy Myers RN Pulmonary Medicine Comment on above: Missed Appointments Start: 05-31-2023 ambulatory Rosario Thrasher RN Pulmona ry Medicine Comment on above: pre lung transplant education and consent Start: 05-24-2023 ambulatory Rebeka De Santiago RN Pulmon donato Medicine Comment on above: Online Pulmonary Luis ab Start: 05-24-2023 E-mail encounter fro m caregiver Rebeka De Santiago RN [facility] Start: 05-24-2023 Telephone encounter Lung Pre T x Main Work Phone: Pulmonary Medicine Comment on above: Return Call Request Lung Eval Start: 05-13-2023 End: 06-12-2023 Discharged Recurring [facility] Work Phone: Start: 05-13-2023 End: 06-12-2023 ambulatory Antwan Buchanan [facility] Work Phone: Start: 04-29-2023 End: 04-29-2023 ambulatory [facility] Work Phone: Start: 04-29-2023 End: 04-29-2023 Patient encounter procedure [facility] Work Phone: Start: 04-26-2023 Telephone encounter Arianna ( [facility]) [facility] Pulmonary Medicine Comment on above: Received [facility] Start: 04-21-2023 Chart abstracting Inez Mckeon v DO Work Phone: Pulmonary Medicine Comment on above: orders for lung santos splant referral Start: 04-18-2023 Telephone encounter Rebeka De Santiago RN Pulmonary Medicine Comment on above: Follow Up Return Call Request Referral - Lung Txp Start: 04-14-2023 ambulatory Manuel Block MD Work Phone: Pulmonary Medicine Comment on above: Test resukts Start: 02-18-2023 End: 02-18-2023 Patient encounter procedure Antwan Buchanan DO Work Phone: Family [facility] [place] Comment on above: Fatigue, unspecified type (Primary Dx); Anemia, unspecified type; Stage 4 very severe COPD by GOLD classification (HCC); Pneumothorax, unspecified type; Cardiac murmur, previously undiagnosed Start: 01-28-2023 Telephone encounter Antwan khan DO Work Phone: [facility] [place] Comment on above: Patient Update Start: 01-26-2023 End: 01-27-2023 Evaluation and management of inpatient [facility] Start: 01-26-2023 End: 01-26-2023 Emergency department patient visit [facility] Start: 01-26-2023 End: 01-26-2023 Emergency department patient visit [facility] Start: 01-26-2023 End: 02-08-2023 Evaluation and management of inpatient [facility] Radiology Comment on above: Arrived Start: 01-26-2023 End: 01-26-2023 Subsequent hospital visit by physician [facility] Radiology Comment on above: Arrived Start: 01-26-2023 End: 01-26-2023 Subsequent hospital visit by physician [facility] Radiology Comment on above: Arrived Start: 01-26-2023 End: 02-08-2023 Evaluation and management of inpatient Ramon Cunha MD Work Phone: [facility] Medical Unit 4N Start: 01-10-2023 Telephone encounter Antwan khan DO Work Phone: [facility] Comment on above: Patient Question Start: 12-04-2022 End: 12-05-2022 Emergency department patient visit KELTON ENRIQUE [facility] Start: 12-04-2022 End: 12-04-2022 Subsequent hospital visit by physician [facility] Radiology Comment on above: Arrived Start: 12-04-2022 End: 12-04-2022 Emergency department patient visit Kelton Enrique MD Work Phone: [facility] ED Comment on above: COPD exacerbation (H CC) (Primary Dx) Start: 11-27-2022 End: 11-28-2022 [facility] Start: 11-27-2022 End: 11-27-2022 Subsequent hospital visit by physician [facility] Radiology Comment on above: Arrived Start: 11-27-2022 End: 11-27-2022 Emergency department patient visit Tony Figueroa DO Work Phone: [facility] ED Comment on above: Choking, initial enc ounter (Primary Dx) Start: 11-14-2022 Non-patient / Non-visit Dr. Yesenia Buchanan Work Phone: [facility] Inpatient Physicians Work Phone: Start: 11-13-2022 Non-patient / Non-visit Dr. Yesenia Buchanan Work Phone: [facility] Work Phone: Start: 11-13-2022 Non-patient / Non-visit Dr. Yesenia Buchanan Work Phone: [facility] Start: 11-12-2022 Non-patient / Non-visit Dr. Yesenia Buchanan Work Phone: [facility] Start: 11-12-2022 End: 11-14-2022 Evaluation and management of inpatient [facility] Work [facility]: Start: 11-10-2022 Telephone encounter Antwan khan DO Work Phone: [facility] Comment on above: Patient Question Start: 10-19-2022 End: 10-19-2022 Emergency department patient visit Dr. Antwan Buchanan Work Phone: [facility] Work Phone: Start: 09-06-2022 End: 09-06-2022 Patient encounter procedure Antwan Buchanan DO Work Phone: [facility] Comment on above: Stage 4 very severe COPD by GOLD classification (HCC) (Primary Dx); Centrilobular emphysema (HCC); Abnormal CT scan, lung; SOB (shortness of breath); Acute bilateral low back pain with bilateral sciatica; Screening for prostate cancer Start: 04-01-2022 Refill Lm SANTANA RN.EMPLOYMENT OFFICER, DNP Work Phone: [facility] Comment on above: Refill Request Start: 02-10-2022 End: 02-10-2022 Emergency department patient visit [facility] Start: 08-27-2021 ambulatory Antwan gutierres DO Work Phone: [facility] Start: 08-27-2021 Patient encounter procedure Antwan Buchanan DO Work Phone: General Surgery Comment on above: Outpatient [place] [facility] Start: 08-17-2021 Non-patient / Non-visit Dr. Yesenia Buchanan Work Phone: [facility] Inpatient Physicians Start: 08-16-2021 Non-patient / Non-visit Dr. Yesenia Buchanan Work Phone: [facility] Start: 08-15-2021 End: 08-17-2021 [facility] Start: 08-01-2021 End: 08-01-2021 Emergency department patient visit DR JENSEN GARCÍA MD [facility] Start: 07-31-2021 Orders Only Manuel Block MD Work Phone: Pulmonary Medicine Start: 07-29-2021 ambulatory Manuel Block MD Work Phone: Pulmonary Medicine Comment on above: Inhailer Start: 07-17-2021 End: 07-17-2021 Emergency department patient visit CLIFFORD LAI MD [facility] Start: 07-17-2021 Refill Antwan gutierres DO Work Phone: Family [facility] Comment on above: Refill Request Start: 07-16-2021 End: 07-16-2021 ambulatory Respiratory Therapist [facility] Work Phone: Pulmonary Medicine Comment on above: Spirometry Start: 07-16-2021 End: 07-16-2021 Patient encounter procedure Respiratory Therapist [facility] Work Phone: [facility] Comment on above: Stage 4 very severe COPD by GOLD classification (HCC) (Primary Dx); Centrilobular emphysema (HCC); Lung nodules; Bronchiectasis without complication (HCC); Former cigarette smoker Start: 07-01-2021 End: 07-12-2021 Evaluation and management of inpatient Radhames Young MD Work Phone: [facility] Comment on above: Shortness of breath (Primary Dx); Debility; Chronic respiratory failure, unspecified whether with hypoxia or hypercapnia (HCC); Dysphagia, unspecified type; Pharyngeal dysphagia Start: 06-20-2021 End: 06-21-2021 Emergency department patient visit DR DEVYN ROCHE MD [facility] Start: 06-11-2021 ambulatory Antwan Cantu son DO Work Phone: [facility] [place] Comment on above: Question regarding C T CHEST WO IVCON Start: 06-10-2021 Telephone encounter Antwan kiddbrianna DO Work Phone: [facility] [place] Comment on above: Results Start: 06-10-2021 End: 06-10-2021 Subsequent hospital visit by physician Ct [facility] (I-Stat) Work Phone: Cat Scan Comment on above: COPD, severe (HCC) [ J44.9] Start: 09-05-2020 End: 09-05-2020 Subsequent hospital visit by physician X[facility] [place] Work Phone: Radiology Comment on above: COPD with exacerbati on (HCC) [J44.1] Procedures Date Procedure Procedure Detail Performing Clinician Start: 04-06-2024 Noninvasive ear/puls e oximetry multiple deter Manuel Block MD Work Phone: Start: 08-11-2023 Ct thorax w/o contra st material Inez Park DO Work Phone: Start: 08-11-2023 Lipid 1996 panel - S gege or Plasma Darcy Myers RN Start: 02-08-2023 Basic metabolic pane l calcium total Darcy Dickson MD Work Phone: Start: 02-08-2023 Manual differential performed [Presence] in Blood Inez Alonzo PA-C Work Phone: Start: 02-07-2023 Radiologic exam ches t single view Jordin Larsen DISPLAY SCREEN FABRICATOR - EMPLOYMENT OFFICER Work Phone: Start: 02-07-2023 Ecg routine ecg w/le ast 12 lds trcg only w/o i&r Jordin Larsen DISPLAY SCREEN FABRICATOR - EMPLOYMENT OFFICER Work Phone: Start: 02-07-2023 Assay of troponin quantitative Jordin Larsen DISPLAY SCREEN FABRICATOR - EMPLOYMENT OFFICER Work Phone: Start: 02-07-2023 Radiologic exam abdo men 1 view Anselmo Jauregui MD Work Phone: Start: 02-07-2023 Basic metabolic pane l calcium total Darcy Dickson MD Work Phone: Start: 02-06-2023 Glucose quantitative blood xcpt reagent strip Sanit Maynard MD Work Phone: Start: 02-06-2023 Radiologic exam abdo men 1 view Inez Elio Clinton PA-C Work Phone: Start: 02-06-2023 Glucose quantitative blood xcpt reagent strip Santi Maynard MD Work Phone: Start: 02-06-2023 Radiologic exam swal low function contrast study Shelby Guerra MD Work Phone: Start: 02-06-2023 Glucose quantitative blood xcpt reagent strip Walter Coats DO Work Phone: Start: 02-06-2023 Radiologic exam abdo men 1 view Anselmo Jauregui MD Work Phone: Start: 02-06-2023 End: 02-06-2023 Comprehensive metabolic panel Darcy Dickson MD Work Phone: Start: 02-06-2023 Glucose quantitative blood xcpt reagent strip Walter Coats DO Work Phone: Start: 02-05-2023 Glucose quantitative blood xcpt reagent strip Walter Coats DO Work Phone: Start: 02-05-2023 Ecg routine ecg w/le ast 12 lds trcg only w/o i&r Darcy Dickson MD Work Phone: Start: 02-05-2023 Glucose quantitative blood xcpt reagent strip Walter Coats DO Work Phone: Start: 02-05-2023 Glucose quantitative blood xcpt reagent strip Walter Coats DO Work Phone: Start: 02-05-2023 Radiologic exam ches t single view Peg Ashraf MD Work Phone: Start: 02-05-2023 Radiologic exam abdo men 1 view Anselmo Jauregui MD Work Phone: Start: 02-05-2023 Glucose quantitative blood xcpt reagent strip Walter Coats DO Work Phone: Start: 02-05-2023 Basic metabolic pane l calcium total Darcy Dickson MD Work Phone: Start: 02-04-2023 Glucose quantitative blood xcpt reagent strip Walter Coats DO Work Phone: Start: 02-04-2023 Glucose quantitative blood xcpt reagent strip Walter Coats DO Work Phone: Start: 02-04-2023 Ecg routine ecg w/le ast 12 lds trcg only w/o i&r Shelby Guerra MD Work Phone: Start: 02-04-2023 Glucose quantitative blood xcpt reagent strip Walter Coats DO Work Phone: Start: 02-04-2023 Radiologic exam abdo men 1 view Anselmo Jauregui MD Work Phone: Start: 02-04-2023 Radiologic exam ches t single view Peg Ashraf MD Work Phone: Start: 02-04-2023 Glucose quantitative blood xcpt reagent strip Walter Coats DO Work Phone: Start: 02-04-2023 Blood gases any comb ination ph pco2 po2 co2 hco3 Darcy Dickson MD Work Phone: Start: 02-04-2023 Basic metabolic pane l calcium total Darcy Dickson MD Work Phone: Start: 02-03-2023 Glucose quantitative blood xcpt reagent strip Walter Coats DO Work Phone: Start: 02-03-2023 Glucose quantitative blood xcpt reagent strip Walter Jorge L DO Work Phone: Start: 02-03-2023 EXTUBATION Shelby Guerra MD Work Phone: Start: 02-03-2023 Radiologic exam abdo men 1 view Walter Jorge L DO Work Phone: Start: 02-03-2023 Ecg routine ecg w/le ast 12 lds trcg only w/o i&r Anselmo Jauregui MD Work Phone: Start: 02-03-2023 Radiologic exam ches t single view Peg Ashraf MD Work Phone: Start: 02-03-2023 Radiologic exam abdo men 1 view Anselmo Jauregui MD Work Phone: Start: 02-03-2023 Glucose quantitative blood xcpt reagent strip Walter Coats DO Work Phone: Start: 02-03-2023 Blood gases any comb ination ph pco2 po2 co2 hco3 Darcy Dickson MD Work Phone: Start: 02-03-2023 Basic metabolic pane l calcium total Darcy Dickson MD Work Phone: Start: 02-03-2023 Glucose quantitative blood xcpt reagent strip Walter Coats DO Work Phone: Start: 02-02-2023 Glucose quantitative blood xcpt reagent strip Walter Coats DO Work Phone: Start: 02-02-2023 Ct abdomen & pelvis w/contrast material Anselmo Jauregui MD Work Phone: Start: 02-02-2023 Radiologic exam ches t single view Walter Coats DO Work Phone: Start: 02-02-2023 Radiologic exam abdo men 1 view Darcy Dickson MD Work Phone: Start: 02-02-2023 Glucose quantitative blood xcpt reagent strip Walter Coats DO Work Phone: Start: 02-02-2023 Radiologic exam ches t single view Peg Ashraf MD Work Phone: Start: 02-02-2023 Blood gases any comb ination ph pco2 po2 co2 hco3 Darcy Dickson MD Work Phone: Start: 02-02-2023 End: 02-02-2023 Basic metabolic panel calcium total Darcy Dickson MD Work Phone: Start: 02-02-2023 Glucose quantitative blood xcpt reagent strip Walter Coats DO Work Phone: Start: 02-01-2023 Glucose quantitative blood xcpt reagent strip Walter Coats DO Work Phone: Start: 02-01-2023 Glucose quantitative blood xcpt reagent strip Walter Coats DO Work Phone: Start: 02-01-2023 Radiologic exam ches t single view Peg Ashraf MD Work Phone: Start: 02-01-2023 Blood gases any comb ination ph pco2 po2 co2 hco3 Darcy Dickson MD Work Phone: Start: 02-01-2023 End: 02-01-2023 Basic metabolic panel calcium total Darcy Dickson MD Work Phone: Start: 01-31-2023 Glucose quantitative blood xcpt reagent strip Walter Coats DO Work Phone: Start: 01-31-2023 Glucose quantitative blood xcpt reagent strip Walter Coats DO Work Phone: Start: 01-31-2023 Blood gases any comb ination ph pco2 po2 co2 hco3 Peg Ashraf MD Work Phone: Start: 01-31-2023 Glucose quantitative blood xcpt reagent strip Walter Coats DO Work Phone: Start: 01-31-2023 Radiologic exam ches t single view Peg Ashraf MD Work Phone: Start: 01-31-2023 Blood gases any comb ination ph pco2 po2 co2 hco3 Joseph Trejo MD Work Phone: Start: 01-31-2023 End: 01-31-2023 Basic metabolic panel calcium total Gerald Moncada DO Work Phone: Start: 01-30-2023 Blood gases any comb ination ph pco2 po2 co2 hco3 Leyda Blanco MD Work Phone: Start: 01-30-2023 Radiologic exam ches t single view Leyda Blanco MD Work Phone: Start: 01-30-2023 Blood gases any comb ination ph pco2 po2 co2 hco3 Leyda Blanco MD Work Phone: Start: 01-30-2023 Glucose quantitative blood xcpt reagent strip Joseph Trejo MD Work Phone: Start: 01-30-2023 Glucose quantitative blood xcpt reagent strip Joseph Trejo MD Work Phone: Start: 01-30-2023 Radiologic exam ches t single view Peg Ashraf MD Work Phone: Start: 01-30-2023 Blood gases any comb ination ph pco2 po2 co2 hco3 Charlene Del Cid DISPLAY SCREEN FABRICATOR - EMPLOYMENT OFFICER Work Phone: Start: 01-30-2023 Radiologic exam abdo men 1 view Gerald Moncada DO Work Phone: Start: 01-30-2023 Blood gases any comb ination ph pco2 po2 co2 hco3 Gerald Moncada DO Work Phone: Start: 01-30-2023 End: 01-30-2023 Basic metabolic panel calcium total Gerald Moncada DO Work Phone: Start: 01-29-2023 Radiologic exam ches t single view Gerald Moncada DO Work Phone: Start: 01-29-2023 Blood gases any comb ination ph pco2 po2 co2 hco3 Gerald Moncada DO Work Phone: Start: 01-29-2023 End: 01-29-2023 Comprehensive metabolic panel Francisco Javier Alvarado MD Work Phone: Start: 01-29-2023 Artl cathj/cannulj mntr/transfusion spx prq Joseph Trejo MD Work Phone: Start: 01-29-2023 Ct thorax w/o contra st material Joseph Trejo MD Work Phone: Start: 01-29-2023 Ct soft tissue neck w/o contrast material Joseph Trejo MD Work Phone: Start: 01-29-2023 Intubation endotrach eal emergency procedure Joseph Trejo MD Work Phone: Start: 01-29-2023 Radiologic exam ches t single view Charlene Del Cid DISPLAY SCREEN FABRICATOR - EMPLOYMENT OFFICER Work Phone: Start: 01-29-2023 Glucose quantitative blood xcpt reagent strip Zbigniew Mike MD Work Phone: Start: 01-29-2023 Echo tthrc r-t 2d w/wom-mode compl spec&colr d Joseph Trejo MD Work Phone: Start: 01-29-2023 Glucose quantitative blood xcpt reagent strip Zbigniew Mike MD Work Phone: Start: 01-29-2023 Radiologic exam ches t single view Joseph Trejo MD Work Phone: Start: 01-29-2023 Glucose quantitative blood xcpt reagent strip Joseph Trejo MD Work Phone: Start: 01-29-2023 End: 01-29-2023 Comprehensive metabolic panel Charlene Del Cid DISPLAY SCREEN FABRICATOR - EMPLOYMENT OFFICER Work Phone: Start: 01-28-2023 End: 01-28-2023 Procalcitonin (pct) Charlene sykes DISPLAY SCREEN FABRICATOR - EMPLOYMENT OFFICER Work Phone: Start: 01-28-2023 Radiologic exam ches t single view Joseph Trejo MD Work Phone: Start: 01-28-2023 Glucose quantitative blood xcpt reagent strip Joseph Trejo MD Work Phone: Start: 01-28-2023 EXTUBATION Joseph andersen MD Work Phone: Start: 01-28-2023 Glucose quantitative blood xcpt reagent strip Joseph Trejo MD Work Phone: Start: 01-28-2023 Radiologic exam ches t single view Charlene Rodriges-Michela DISPLAY SCREEN FABRICATOR - EMPLOYMENT OFFICER Work Phone: Start: 01-28-2023 Blood gases any comb ination ph pco2 po2 co2 hco3 Joseph Trejo MD Work Phone: Start: 01-28-2023 Comprehensive metabo lic panel Charlene Rodriges-Michela DISPLAY SCREEN FABRICATOR - EMPLOYMENT OFFICER Work Phone: Start: 01-28-2023 Radiologic exam ches t single view Charlene Rodriges-Michela DISPLAY SCREEN FABRICATOR - EMPLOYMENT OFFICER Work Phone: Start: 01-27-2023 Glucose quantitative blood xcpt reagent strip Joseph Trejo MD Work Phone: Start: 01-27-2023 Glucose quantitative blood xcpt reagent strip Joseph Trejo MD Work Phone: Start: 01-27-2023 Assay of troponin quantitative Charlene Rodirges-Michela DISPLAY SCREEN FABRICATOR - EMPLOYMENT OFFICER Work Phone: Start: 01-27-2023 Respiratory pathogen s DNA and RNA panel - Nasopharynx by DESTINY with non-probe detection Charlene Rodriges-Michela DISPLAY SCREEN FABRICATOR - EMPLOYMENT OFFICER Work Phone: Start: 01-27-2023 Glucose quantitative blood xcpt reagent strip Joseph Trejo MD Work Phone: Start: 01-27-2023 Ct thorax w/o contra st material Joseph Trejo MD Work Phone: Start: 01-27-2023 Assay of troponin quantitative Charlene Rodriges-Michela DISPLAY SCREEN FABRICATOR - EMPLOYMENT OFFICER Work Phone: Start: 01-27-2023 Comprehensive metabo lic panel Charlene Rodriges-Michela DISPLAY SCREEN FABRICATOR - EMPLOYMENT OFFICER Work Phone: Start: 01-27-2023 Radiologic exam ches t single view Charlene Rodriges-Michela DISPLAY SCREEN FABRICATOR - EMPLOYMENT OFFICER Work Phone: Start: 01-27-2023 Glucose quantitative blood xcpt reagent strip Joseph Trejo MD Work Phone: Start: 01-27-2023 Blood gases any comb ination ph pco2 po2 co2 hco3 Joseph Trejo MD Work Phone: Start: 01-26-2023 Glucose quantitative blood xcpt reagent strip Joseph Trejo MD Work Phone: Start: 01-26-2023 Drug test def 1-7 classes Charlene Del Cid DISPLAY SCREEN FABRICATOR - EMPLOYMENT OFFICER Work Phone: Start: 01-26-2023 UNCONFIRMED DRUG SCREEN Charlene Del Cid DISPLAY SCREEN FABRICATOR - EMPLOYMENT OFFICER Work Phone: Start: 01-26-2023 Urinalysis complete panel - Urine Charlene Del Cid DISPLAY SCREEN FABRICATOR - EMPLOYMENT OFFICER Work Phone: Start: 01-26-2023 End: 01-26-2023 Urnls dip stick/tablet reagent auto microscopy Charlene Del Cid DISPLAY SCREEN FABRICATOR - EMPLOYMENT OFFICER Work Phone: Start: 01-26-2023 Blood gases any comb ination ph pco2 po2 co2 hco3 Joseph Trejo MD Work Phone: Start: 01-26-2023 End: 01-26-2023 Comprehensive metabolic panel Charlene Del Cid DISPLAY SCREEN FABRICATOR - EMPLOYMENT OFFICER Work Phone: Start: 01-26-2023 End: 01-26-2023 Bacteria identified in Blood by Culture Charlene Del Cid DISPLAY SCREEN FABRICATOR - EMPLOYMENT OFFICER Work Phone: Start: 01-26-2023 Radiologic exam ches t single view Charlene Del Cid DISPLAY SCREEN FABRICATOR - EMPLOYMENT OFFICER Work Phone: Start: 01-26-2023 Blood gases any comb ination ph pco2 po2 co2 hco3 Ramon Cunha MD Work Phone: Start: 01-26-2023 End: 01-26-2023 Radiologic exam chest single view Ramon Cunha MD Work Phone: Start: 01-26-2023 Ecg routine ecg w/le ast 12 lds trcg only w/o i&r Ramon Cunha MD Work Phone: Start: 01-26-2023 Radiologic exam ches t single view Ramon Cunha MD Work Phone: Start: 01-26-2023 HC SARSCOV2&INF A&B& RSV AMP PRB Ramon Cunha MD Work Phone: Start: 01-26-2023 Comprehensive metabo lic panel Ramon Cunha MD Work Phone: Start: 01-26-2023 Intubation endotrach eal emergency procedure Ramon Cunha MD Work Phone: Start: 01-26-2023 Tube thoracostomy in cludes water seal Ramon Cunha MD Work Phone: Start: 12-04-2022 Radiologic exam ches t single view Kelton Enrique MD Work Phone: Start: 12-04-2022 Basic metabolic pane l calcium total Kelton Enrique MD Work Phone: Start: 12-04-2022 Blood gases any comb ination ph pco2 po2 co2 hco3 Kelton Enrique MD Work Phone: Start: 12-04-2022 SARS-COV-2, FLU A/B, AND RSV COMBO Kelton Enrique MD Work Phone: Start: 12-04-2022 Ecg routine ecg w/le ast 12 lds trcg only w/o i&r Kelton Enrique MD Work Phone: Start: 11-27-2022 Radiologic exam ches t single view Tony Figueroa DO Work Phone: Start: 11-13-2022 End: 11-13-[address] Antwan Buchanan Work Phone: Start: 11-12-2022 CT of thorax, abdome n and pelvis with contrast Dr. Antwan Buchanan Work Phone: Start: 10-19-2022 Plain chest X-ray Dr. Carol Buchanan Work Phone: Start: 09-06-2022 Ecg routine ecg w/le ast 12 lds i&r only [facility] Provider Start: 02-10-2022 Plain chest X-ray Start: 08-15-2021 SARS-CoV-2 & FLU Ant igen (Rapid) Start: 08-15-2021 Plain chest X-ray Start: 07-16-2021 Brncdilat rspse spmt ry pre&post-brncdilat admn Jeison Franks MD Work Phone: Start: 07-11-2021 Basic metabolic pane l calcium total Sharita Rich MD Work Phone: Start: 07-10-2021 HM ENDOSCOPY REPORT Phy sician Generic Start: 07-08-2021 Mri brain brain stem w/o contrast material Charles Patten MD Work Phone: Start: 07-08-2021 Radiologic exam esop hagus single contrast study Charles Patten MD Work Phone: Start: 07-08-2021 Radiologic exam ches t single view Charles Patten MD Work Phone: Start: 07-08-2021 Ct abdomen & pelvis w/o contrast material Charles Patten MD Work Phone: Start: 07-08-2021 Ct thorax w/o contra st material Charles Patten MD Work Phone: Start: 07-08-2021 BASIC METABOLIC PANE L W/ REFLEX TO MG FOR LOW K Carla Cox MD Start: 07-08-2021 Blood count complete auto&auto difrntl wbc Carla Cox MD Start: 07-07-2021 Assay of magnesium Unkn own Provider Result Start: 07-07-2021 BASIC METABOLIC PANE L W/ REFLEX TO MG FOR LOW K Carla Cox MD Start: 07-06-2021 Smr prim src gram/gi emsa stain bct fungi/cell Francisco Javiersarah Alvarado MD Work Phone: Start: 07-06-2021 BASIC METABOLIC PANE L W/ REFLEX TO MG FOR LOW K Carla Cox MD Start: 07-06-2021 Blood count complete auto&auto difrntl wbc Carla Cox MD Start: 07-05-2021 BASIC METABOLIC PANE L W/ REFLEX TO MG FOR LOW K Carla Cox MD Start: 07-05-2021 Blood count complete auto&auto difrntl wbc Carla Cox MD Start: 07-04-2021 BASIC METABOLIC PANE L W/ REFLEX TO MG FOR LOW K Carla Cox MD Start: 07-04-2021 Blood count complete auto&auto difrntl wbc Carla Cox MD Start: 07-03-2021 Assay of folic acid serum Kapil García DISPLAY SCREEN FABRICATOR - EMPLOYMENT OFFICER Work Phone: Start: 07-03-2021 BASIC METABOLIC PANE L W/ REFLEX TO MG FOR LOW K Carla Cox MD Start: 07-02-2021 Radiologic exam swal low function contrast study Kapil García DISPLAY SCREEN FABRICATOR - EMPLOYMENT OFFICER Work Phone: Start: 07-02-2021 [employer]PAR[employer] SALES REPRESENTATIVE MODIFIED BARIUM SWALLOW STUDY (MBS) Kapil García DISPLAY SCREEN FABRICATOR - EMPLOYMENT OFFICER Work Phone: Start: 07-02-2021 Iaadiadoo streptococ cus group a Carla Cox MD Start: 07-02-2021 BASIC METABOLIC PANE L W/ REFLEX TO MG FOR LOW K Carla Cox MD Start: 07-02-2021 C-reactive protein Salazar Cox MD Start: 07-02-2021 Cyanocobalamin vitamin b-12 Carla Cox MD Start: 07-02-2021 Speech and language therapy regime Carla Cox MD Start: 07-01-2021 Urnls dip stick/tabl et rgnt auto w/o microscopy Radhames Young MD Work Phone: Start: 07-01-2021 Culture bacterial bl ood aerobic w/id isolates Radhames Young MD Work Phone: Start: 07-01-2021 CULTURE, BLOOD 1 Mindy Young MD Work Phone: Start: 07-01-2021 LACTATE, SEPSIS Radhames Young MD Work Phone: Start: 07-01-2021 Radiologic exam ches t single view Radhames Young MD Work Phone: Start: 07-01-2021 Ct soft tissue neck w/contrast material Radhames Young MD Work Phone: Start: 07-01-2021 Ecg routine ecg w/le ast 12 lds w/i&r Radhames Young MD Work Phone: Start: 07-01-2021 Basic metabolic pane l calcium total Radhames Young MD Work Phone: Start: 06-10-2021 Ct thorax w/o contra st material Antwan L Buchanan DO Work Phone: Start: 05-27-2021 Adult depression scr eening assessment Ct (I-Stat) Work Phone: Start: 09-05-2020 Radiologic exam ches t 2 views Deja Camacho DISPLAY SCREEN FABRICATOR.EMPLOYMENT OFFICER Work Phone: Start: 07-20-2017 Video assisted thora scopic surgery (qualifier value) DR DEVYN ROCHE MD Comment on above: RVAT with mechanical pleurodesis and bullaectomy Start: 09-09-2014 Lipid 1996 panel - S gege or Plasma Antwan Buchanan DO Work Phone: Influenza Types A,B Direct FA (MARISOL) Inguinal hernia (disorder) Herminio ROCHE MD Stent, device (physi ely object) DR DEVYN ROCHE MD Comment on above: Kidney stones Tonsillectomy DR DEVYN GUTIERRES MD Tracheostomy scar (finding) DR DEVYN ROCHE MD Plan of Treatment Date Care Activity Detail Author Start: 11-13-2032 Screening for malign ant neoplasm of colon for; to (do) [facility] Start: 2030 RSV Immunization age d 60 or older (1 - 1-dose 60+ series) RSV Immunization aged 60 or older (1 - 1-dose 60+ series) [facility] Start: 2030 [facility] Start: 08-10-2028 Lipid panel Lipid Screening [facility] Start: 09-07-2027 DTaP/Tdap/Td vaccine (3 - Td or Tdap) DTaP/Tdap/Td vaccine (3 - Td or Tdap) [facility] Start: 09-07-2027 DTaP/Tdap/Td Vaccine s (3 - Td or Tdap) DTaP/Tdap/Td Vaccines (3 - Td or Tdap) [facility] Start: 09-07-2027 Urine microalbumin profile [facility] Start: 09-07-2027 [facility] Start: 08-10-2026 Diabetes Screening Diabetes Screenin g [facility] Start: 02-18-2026 Diabetes Screening Diabetes Screennd g [facility] Start: 02-08-2026 Diabetes Screening Diabetes Screennd g [facility] Start: 09-06-2025 DIABETES SCREEN [facility] Start: 09-06-2025 Diabetes Screening Diabetes Screenin g [facility] Start: 07-31-2025 Annual PCP Team Rope Tier nikolai Disease Visit Annual PCP Team Chronic Disease Visit [facility] Start: 11-12-2024 Influenza vaccination C [facility] Start: 08-10-2024 Screening for malign ant neoplasm of lung Lung Cancer Screening [facility] Start: 07-31-2024 End: 07-31-2024 Patient encounter procedure 07/31/2024 2:20 PM EDT Office Visit [facility] [place] [address] [place], [place] [id number] Antwan Buchanan, [address] [place], [place] [id number] [facility] Comment on above: [facility] Start: 07-31-2024 End: 10-30-2024 CBC W Auto Differential panel - Blood COMPLETE BLOOD COUNT AND DIFFERENTIAL Lab Routine Fatigue, unspecified type Expected: 07/31/2024, Expires: 10/30/2024 [facility] Comment on above: Expected: 07/31/2024 , Expires: 10/30/2024 Start: 07-31-2024 End: 10-30-2024 Comprehensive metabolic 2000 panel - Serum or Plasma COMPREHENSIVE METABOLIC PANEL Lab Routine Fatigue, unspecified type Expected: 07/31/2024, Expires: 10/30/2024 [facility] Work Phone: Comment on above: Expected: 07/31/2024 , Expires: 10/30/2024 Start: 07-31-2024 End: 10-30-2024 Hemoglobin A1c in Blood HEMOGLOBIN A1C Lab Routine Hyperglycemia Expected: 07/31/2024, Expires: 10/30/2024 [facility] Comment on above: Expected: 07/31/2024 , Expires: 10/30/2024 Start: 07-31-2024 End: 10-30-2024 Lipid 1996 panel - Serum or Plasma LIPID PANEL, FASTING Lab Routine Dyslipidemia Expected: 07/31/2024, Expires: 10/30/2024 [facility] Comment on above: Expected: 07/31/2024 , Expires: 10/30/2024 Start: 07-31-2024 End: 10-30-2024 Thyrotropin [Units/volume] in Serum or Plasma THYROID STIMULATING HORMONE Lab Routine Fatigue, unspecified type Expected: 07/31/2024, Expires: 10/30/2024 [facility] Comment on above: Expected: 07/31/2024 , Expires: 10/30/2024 Start: 02-19-2024 Annual PCP Team Rope Tier nikolai Disease Visit Annual PCP Team Chronic Disease Visit [facility] Start: 01-30-2024 Influenza vaccination Lung Cancer Sc [facility] Start: 01-30-2024 Screening for malign ant neoplasm of lung Lung Cancer Screening [facility] Start: 01-28-2024 Diabetes mellitus screening [facility] Start: 12-20-2023 End: 12-20-2023 Patient encounter procedure 12/20/2023 2:00 PM EDT Office Visit Pulmonary Medicine [address] [place] [address] Francois Woodward, DISPLAY SCREEN FABRICATOR.EMPLOYMENT OFFICER [address] [facility] [address] [place] [address] Chronic obstructive pulmonary disease, unspecified COPD type (HCC) [J44.9] [facility]monary Medicine Comment on above: Chronic obstructive pulmonary disease, unspecified COPD type (HCC) [J44.9] Start: 12-20-2023 End: 12-20-2023 ambulatory 12/20/2023 1:30 PM EDT Procedure PULM LAB [facility] [address] [place] [address] Wstr, Pulm Lab [facility] [address] [place] [address] Chronic obstructive pulmonary disease, unspecified COPD type (HCC) [J44.9] PULM [facility] Comment on above: Chronic obstructive pulmonary disease, unspecified COPD type (HCC) [J44.9] Start: 11-13-2023 Covid-19 Vaccine ( season) Covid-19 Vaccine () [facility] Start: 11-13-2023 Covid-19 Vaccine ( season) Covid-19 Vaccine () [facility] Start: 11-13-2023 Influenza vaccination C [facility] Start: 09-11-2023 Influenza vaccination Influenza Vacc ine (#1) [facility] Comment on above: Postponed from 11/12 (Declined at this time) Start: 09-07-2023 ANNUAL PCP TEAM WARHEAD MAINTENANCE SPECIALIST NIKOLAI DISEASE VISIT ANNUAL PCP TEAM CHRONIC DISEASE VISIT [facility] Start: 09-07-2023 COVID-19 VACCINE (#1) COVID-19 VACCI NE (#1) [facility] Comment on above: Postponed from 04/22 (Declined at this time) Start: 08-15-2023 End: 08-15-2023 Nutrition therapy 08/15/2023 2:00 PM EDT [facility] [address] LUNG TX EVAL [facility] Comment on above: LUNG TX EVAL Start: 07-25-2023 End: 07-26-2024 ARTERIAL BLOOD GAS, ROOM AIR ARTERIAL BLOOD GAS, ROOM AIR PFT Routine 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 Expected: 07/25/2023 (Approximate), Expires: 07/26/2024 [facility] Work Phone: Comment on above: Expected: 07/25/2023 (Approximate), Expires: 07/26/2024 Start: 07-25-2023 End: 10-24-2023 BLOOD TB SCREEN, INCUBATED BLOOD TB SCREEN, INCUBATED Lab Routine 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 Expected: 07/25/2023 (Approximate), Expires: 10/24/2023 [facility] Work Phone: Comment on above: Expected: 07/25/2023 (Approximate), Expires: 10/24/2023 Start: 07-25-2023 End: 10-24-2023 CBC W Auto Differential panel - Blood COMPLETE BLOOD COUNT AND DIFFERENTIAL Lab Routine 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 Chronic fatigue SOB (shortness of breath) Expected: 07/25/2023 (Approximate), Expires: 10/24/2023 [facility] Work Phone: Comment on above: Expected: 07/25/2023 (Approximate), Expires: 10/24/2023 Start: 07-25-2023 End: 10-24-2023 Chronic hepatitis differentiation between hepatitis B and C virus panel - Serum or Plasma HEP REMOTE PANEL BL Lab Routine 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 Chronic fatigue SOB (shortness of breath) Expected: 07/25/2023 (Approximate), Expires: 10/24/2023 [facility] Work Phone: Comment on above: Expected: 07/25/2023 (Approximate), Expires: 10/24/2023 Start: 07-25-2023 End: 10-24-2023 Comprehensive metabolic 2000 panel - Serum or Plasma COMPREHENSIVE METABOLIC PANEL Lab Routine 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 Chronic fatigue SOB (shortness of breath) Expected: 07/25/2023 (Approximate), Expires: 10/24/2023 [facility] Work Phone: Comment on above: Expected: 07/25/2023 (Approximate), Expires: 10/24/2023 Start: 07-25-2023 End: 10-24-2023 CONFIRM BLOOD TYPE CONFIRM BLOOD TYPE Blood Bank Routine 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 Chronic fatigue SOB (shortness of breath) Expected: 07/25/2023 (Approximate), Expires: 10/24/2023 [facility] Work Phone: Comment on above: Expected: 07/25/2023 (Approximate), Expires: 10/24/2023 Start: 07-25-2023 End: 07-26-2024 CT Chest WO contrast CT CHEST WO IVCON Radiology Routine 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 Chronic fatigue SOB (shortness of breath) Expected: 07/25/2023 (Approximate), Expires: 07/26/2024 [facility] Work Phone: Comment on above: Expected: 07/25/2023 (Approximate), Expires: 07/26/2024 Start: 07-25-2023 End: 10-24-2023 Cytomegalovirus IgG Ab [Units/volume] in Serum or Plasma CMV IGG ANTIBODY BL Lab Routine 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 Chronic fatigue SOB (shortness of breath) Expected: 07/25/2023 (Approximate), Expires: 10/24/2023 [facility] Work Phone: Comment on above: Expected: 07/25/2023 (Approximate), Expires: 10/24/2023 Start: 07-25-2023 End: 06-26-2024 ECG COMPLETE ECG COMPLETE ECG Routine 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 Chronic fatigue SOB (shortness of breath) Expected: 07/25/2023 (Approximate), Expires: 06/26/2024 [facility] Work Phone: Comment on above: Expected: 07/25/2023 (Approximate), Expires: 06/26/2024 Start: 07-25-2023 End: 06-26-2024 ECHO WITH AGITATED SALINE CONTRAST ECHO WITH AGITATED SALINE CONTRAST Cardiology Routine 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 Expected: 07/25/2023 (Approximate), Expires: 06/26/2024 [facility] Work Phone: Comment on above: Expected: 07/25/2023 (Approximate), Expires: 06/26/2024 Start: 07-25-2023 End: 10-24-2023 Caio Jean virus capsid IgG Ab [Units/volume] in Serum CAIO-JEAN VCA IGG Lab Routine 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 Chronic fatigue SOB (shortness of breath) Expected: 07/25/2023 (Approximate), Expires: 10/24/2023 [facility] Work Phone: Comment on above: Expected: 07/25/2023 (Approximate), Expires: 10/24/2023 Start: 07-25-2023 End: 10-24-2023 HEPATITIS A ANTIBODY, IGG HEPATITIS A ANTIBODY, IGG Lab Routine 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 Expected: 07/25/2023 (Approximate), Expires: 10/24/2023 [facility] Work Phone: Comment on above: Expected: 07/25/2023 (Approximate), Expires: 10/24/2023 Start: 07-25-2023 End: 10-24-2023 HERPES SIMPLEX TYPE 1 AND 2 IG HERPES SIMPLEX TYPE 1 AND 2 IG Lab Routine 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 Chronic fatigue SOB (shortness of breath) Expected: 07/25/2023 (Approximate), Expires: 10/24/2023 [facility] Work Phone: Comment on above: Expected: 07/25/2023 (Approximate), Expires: 10/24/2023 Start: 07-25-2023 End: 10-24-2023 HIV 1+2 Ab [Presence] in Serum or Plasma by Immunoassay HIV 1/2 COMBO WITH REFLEX TO DIFFERENTIATION Lab Routine 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 Chronic fatigue SOB (shortness of breath) Expected: 07/25/2023 (Approximate), Expires: 10/24/2023 [facility] Work Phone: Comment on above: Expected: 07/25/2023 (Approximate), Expires: 10/24/2023 Start: 07-25-2023 End: 06-26-2024 HRT H/L LUNG REC INIT W/U HRT H/L LUNG REC INIT W/U ALLOGEN Routine 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 Chronic fatigue SOB (shortness of breath) Expected: 07/25/2023 (Approximate), Expires: 06/26/2024 [facility] Work Phone: Comment on above: Expected: 07/25/2023 (Approximate), Expires: 06/26/2024 Start: 07-25-2023 End: 10-24-2023 Lipid 1996 panel - Serum or Plasma LIPID PANEL BASIC Lab Routine 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 Chronic fatigue SOB (shortness of breath) Expected: 07/25/2023 (Approximate), Expires: 10/24/2023 [facility] Work Phone: Comment on above: Expected: 07/25/2023 (Approximate), Expires: 10/24/2023 Start: 07-25-2023 End: 07-26-2024 LUNG DIFFUSION CAPACITY (DLCO) LUNG DIFFUSION CAPACITY (DLCO) PFT Routine 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 Chronic fatigue SOB (shortness of breath) Expected: 07/25/2023 (Approximate), Expires: 07/26/2024 [facility] Work Phone: Comment on above: Expected: 07/25/2023 (Approximate), Expires: 07/26/2024 Start: 07-25-2023 End: 07-26-2024 LUNG VOLUMES LUNG VOLUMES PFT Routine 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 Chronic fatigue SOB (shortness of breath) Expected: 07/25/2023 (Approximate), Expires: 07/26/2024 [facility] Work Phone: Comment on above: Expected: 07/25/2023 (Approximate), Expires: 07/26/2024 Start: 07-25-2023 End: 10-24-2023 NICOTINE/COTININE NICOTINE/COTININE Lab Routine 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 Chronic fatigue SOB (shortness of breath) Expected: 07/25/2023 (Approximate), Expires: 10/24/2023 [facility] Work Phone: Comment on above: Expected: 07/25/2023 (Approximate), Expires: 10/24/2023 Start: 07-25-2023 End: 10-24-2023 Parathyrin.intact [Mass/volume] in Serum or Plasma PTH INTACT Lab Routine 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 Chronic fatigue SOB (shortness of breath) Expected: 07/25/2023 (Approximate), Expires: 10/24/2023 [facility] Work Phone: Comment on above: Expected: 07/25/2023 (Approximate), Expires: 10/24/2023 Start: 07-25-2023 End: 10-24-2023 Prealbumin [Mass/volume] in Serum or Plasma PREALBUMIN Lab Routine 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 Chronic fatigue SOB (shortness of breath) Expected: 07/25/2023 (Approximate), Expires: 10/24/2023 [facility] Work Phone: Comment on above: Expected: 07/25/2023 (Approximate), Expires: 10/24/2023 Start: 07-25-2023 End: 10-24-2023 PT panel - Platelet poor plasma by Coagulation assay PROTHROMBIN TIME Lab Routine 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 Chronic fatigue SOB (shortness of breath) Expected: 07/25/2023 (Approximate), Expires: 10/24/2023 [facility] Work Phone: Comment on above: Expected: 07/25/2023 (Approximate), Expires: 10/24/2023 Start: 07-25-2023 End: 10-24-2023 RUBEOLA (MEASLES)IGG RUBEOLA (MEASLES)IGG Lab Routine 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 Expected: 07/25/2023 (Approximate), Expires: 10/24/2023 [facility] Work Phone: Comment on above: Expected: 07/25/2023 (Approximate), Expires: 10/24/2023 Start: 07-25-2023 End: 07-26-2024 SIX MINUTE WALK SIX MINUTE WALK PFT Routine 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 Chronic fatigue SOB (shortness of breath) Expected: 07/25/2023 (Approximate), Expires: 07/26/2024 [facility] Work Phone: Comment on above: Expected: 07/25/2023 (Approximate), Expires: 07/26/2024 Start: 07-25-2023 End: 07-26-2024 SPIROMETRY BASELINE ONLY SPIROMETRY BASELINE ONLY PFT Routine 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 Chronic fatigue SOB (shortness of breath) Expected: 07/25/2023 (Approximate), Expires: 07/26/2024 [facility] Work Phone: Comment on above: Expected: 07/25/2023 (Approximate), Expires: 07/26/2024 Start: 07-25-2023 End: 10-24-2023 SYPHILIS TOTAL W/REFLEX SYPHILIS TOTAL W/REFLEX Lab Routine 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 Chronic fatigue SOB (shortness of breath) Expected: 07/25/2023 (Approximate), Expires: 10/24/2023 [facility] Work Phone: Comment on above: Expected: 07/25/2023 (Approximate), Expires: 10/24/2023 Start: 07-25-2023 End: 10-24-2023 Thyrotropin [Units/volume] in Serum or Plasma THYROID STIMULATING HORMONE Lab Routine 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 Chronic fatigue SOB (shortness of breath) Expected: 07/25/2023 (Approximate), Expires: 10/24/2023 [facility] Work Phone: Comment on above: Expected: 07/25/2023 (Approximate), Expires: 10/24/2023 Start: 07-25-2023 End: 10-24-2023 Toxoplasma gondii IgG Ab [Units/volume] in Serum TOXOPLASMOSIS IGG AB Lab Routine 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 Chronic fatigue SOB (shortness of breath) Expected: 07/25/2023 (Approximate), Expires: 10/24/2023 [facility] Work Phone: Comment on above: Expected: 07/25/2023 (Approximate), Expires: 10/24/2023 Start: 07-25-2023 End: 10-24-2023 TRANSPLANT CONFIRM ABO/RH TRANSPLANT CONFIRM ABO/RH Blood Bank Routine 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 Chronic fatigue SOB (shortness of breath) Expected: 07/25/2023 (Approximate), Expires: 10/24/2023 [facility] Work Phone: Comment on above: Expected: 07/25/2023 (Approximate), Expires: 10/24/2023 Start: 07-25-2023 End: 10-24-2023 TYPE + SCREEN TYPE + SCREEN Blood Bank Routine 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 Chronic fatigue SOB (shortness of breath) Expected: 07/25/2023 (Approximate), Expires: 10/24/2023 [facility] Work Phone: Comment on above: Expected: 07/25/2023 (Approximate), Expires: 10/24/2023 Start: 07-25-2023 End: 10-24-2023 VARICELLA ZOSTER IGG VARICELLA ZOSTER IGG Lab Routine 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 Chronic fatigue SOB (shortness of breath) Expected: 07/25/2023 (Approximate), Expires: 10/24/2023 [facility] Work Phone: Comment on above: Expected: 07/25/2023 (Approximate), Expires: 10/24/2023 Start: 07-25-2023 End: 07-26-2024 XR Chest PA and Lateral XR CHEST 2V FRONTAL/LAT Radiology Routine 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 Chronic fatigue SOB (shortness of breath) Expected: 07/25/2023 (Approximate), Expires: 07/26/2024 [facility] Work Phone: Comment on above: Expected: 07/25/2023 (Approximate), Expires: 07/26/2024 Start: 05-30-2023 End: 05-20-2024 ARTERIAL BLOOD GAS, ROOM AIR ARTERIAL BLOOD GAS, ROOM AIR PFT Routine 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 Chronic fatigue SOB (shortness of breath) Centrilobular emphysema (HCC) Expected: 05/30/2023, Expires: 05/20/2024 [facility] Work Phone: Comment on above: Expected: 05/30/2023 , Expires: 05/20/2024 Start: 05-30-2023 End: 08-29-2023 BLOOD TB SCREEN, INCUBATED BLOOD TB SCREEN, INCUBATED Lab Routine 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 Chronic fatigue SOB (shortness of breath) Centrilobular emphysema (HCC) Expected: 05/30/2023, Expires: 08/29/2023 [facility] Work Phone: Comment on above: Expected: 05/30/2023 , Expires: 08/29/2023 Start: 05-30-2023 End: 08-29-2023 CBC W Auto Differential panel - Blood CBC + DIFF Lab Routine 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 Chronic fatigue SOB (shortness of breath) Centrilobular emphysema (HCC) Expected: 05/30/2023, Expires: 08/29/2023 [facility] Work Phone: Comment on above: Expected: 05/30/2023 , Expires: 08/29/2023 Start: 05-30-2023 End: 08-29-2023 Chronic hepatitis differentiation between hepatitis B and C virus panel - Serum or Plasma HEP REMOTE PANEL BL Lab Routine 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 Chronic fatigue SOB (shortness of breath) Centrilobular emphysema (HCC) Expected: 05/30/2023, Expires: 08/29/2023 [facility] Work Phone: Comment on above: Expected: 05/30/2023 , Expires: 08/29/2023 Start: 05-30-2023 End: 08-29-2023 Comprehensive metabolic 2000 panel - Serum or Plasma COMP METABOLIC PANEL Lab Routine 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 Chronic fatigue SOB (shortness of breath) Centrilobular emphysema (HCC) Expected: 05/30/2023, Expires: 08/29/2023 [facility] Work Phone: Comment on above: Expected: 05/30/2023 , Expires: 08/29/2023 Start: 05-30-2023 End: 08-29-2023 CONFIRM BLOOD TYPE CONFIRM BLOOD TYPE Blood Bank Routine 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 Chronic fatigue SOB (shortness of breath) Centrilobular emphysema (HCC) Expected: 05/30/2023, Expires: 08/29/2023 [facility] Work Phone: Comment on above: Expected: 05/30/2023 , Expires: 08/29/2023 Start: 05-30-2023 End: 05-20-2024 CT Chest WO contrast CT CHEST WO IVCON Radiology Routine 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 Chronic fatigue SOB (shortness of breath) Centrilobular emphysema (HCC) Expected: 05/30/2023, Expires: 05/20/2024 [facility] Work Phone: Comment on above: Expected: 05/30/2023 , Expires: 05/20/2024 Start: 05-30-2023 End: 08-29-2023 Cytomegalovirus IgG Ab [Units/volume] in Serum or Plasma CMV IGG ANTIBODY BL Lab Routine 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 Chronic fatigue SOB (shortness of breath) Centrilobular emphysema (HCC) Expected: 05/30/2023, Expires: 08/29/2023 [facility] Work Phone: Comment on above: Expected: 05/30/2023 , Expires: 08/29/2023 Start: 05-30-2023 End: 04-21-2024 ECG COMPLETE ECG COMPLETE ECG Routine 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 Chronic fatigue SOB (shortness of breath) Centrilobular emphysema (HCC) Expected: 05/30/2023, Expires: 04/21/2024 [facility] Work Phone: Comment on above: Expected: 05/30/2023 , Expires: 04/21/2024 Start: 05-30-2023 End: 04-21-2024 ECHO WITH AGITATED SALINE CONTRAST ECHO WITH AGITATED SALINE CONTRAST Cardiology Routine 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 Chronic fatigue SOB (shortness of breath) Centrilobular emphysema (HCC) Expected: 05/30/2023, Expires: 04/21/2024 [facility] Work Phone: Comment on above: Expected: 05/30/2023 , Expires: 04/21/2024 Start: 05-30-2023 End: 08-29-2023 Caio Jean virus capsid IgG Ab [Units/volume] in Serum CAIO-JEAN VCA IGG Lab Routine 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 Chronic fatigue SOB (shortness of breath) Centrilobular emphysema (HCC) Expected: 05/30/2023, Expires: 08/29/2023 [facility] Work Phone: Comment on above: Expected: 05/30/2023 , Expires: 08/29/2023 Start: 05-30-2023 End: 08-29-2023 HEPATITIS A ANTIBODY, IGG HEPATITIS A ANTIBODY, IGG Lab Routine 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 Chronic fatigue SOB (shortness of breath) Centrilobular emphysema (HCC) Expected: 05/30/2023, Expires: 08/29/2023 [facility] Work Phone: Comment on above: Expected: 05/30/2023 , Expires: 08/29/2023 Start: 05-30-2023 End: 08-29-2023 HERPES SIMPLEX TYPE 1 AND 2 IG HERPES SIMPLEX TYPE 1 AND 2 IG Lab Routine 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 Chronic fatigue SOB (shortness of breath) Centrilobular emphysema (HCC) Expected: 05/30/2023, Expires: 08/29/2023 [facility] Work Phone: Comment on above: Expected: 05/30/2023 , Expires: 08/29/2023 Start: 05-30-2023 End: 08-29-2023 HIV 1+2 Ab [Presence] in Serum or Plasma by Immunoassay HIV 1 2 COMBO(AG/AB),WITH REFLEX TO DIFFERENTIATION Lab Routine 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 Chronic fatigue SOB (shortness of breath) Centrilobular emphysema (HCC) Expected: 05/30/2023, Expires: 08/29/2023 [facility] Work Phone: Comment on above: Expected: 05/30/2023 , Expires: 08/29/2023 Start: 05-30-2023 End: 04-20-2024 HRT H/L LUNG REC INIT W/U HRT H/L LUNG REC INIT W/U ALLOGEN Routine 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 Chronic fatigue SOB (shortness of breath) Centrilobular emphysema (HCC) Expected: 05/30/2023, Expires: 04/20/2024 [facility] Work Phone: Comment on above: Expected: 05/30/2023 , Expires: 04/20/2024 Start: 05-30-2023 End: 08-29-2023 Lipid 1996 panel - Serum or Plasma LIPID PANEL BASIC Lab Routine 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 Chronic fatigue SOB (shortness of breath) Centrilobular emphysema (HCC) Expected: 05/30/2023, Expires: 08/29/2023 [facility] Work Phone: Comment on above: Expected: 05/30/2023 , Expires: 08/29/2023 Start: 05-30-2023 End: 05-20-2024 LUNG DIFFUSION CAPACITY (DLCO) LUNG DIFFUSION CAPACITY (DLCO) PFT Routine 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 Chronic fatigue SOB (shortness of breath) Centrilobular emphysema (HCC) Expected: 05/30/2023, Expires: 05/20/2024 [facility] Work Phone: Comment on above: Expected: 05/30/2023 , Expires: 05/20/2024 Start: 05-30-2023 End: 05-20-2024 LUNG VOLUMES LUNG VOLUMES PFT Routine 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 Chronic fatigue SOB (shortness of breath) Centrilobular emphysema (HCC) Expected: 05/30/2023, Expires: 05/20/2024 [facility] Work Phone: Comment on above: Expected: 05/30/2023 , Expires: 05/20/2024 Start: 05-30-2023 End: 08-29-2023 NICOTINE/COTININE NICOTINE/COTININE Lab Routine 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 Chronic fatigue SOB (shortness of breath) Centrilobular emphysema (HCC) Expected: 05/30/2023, Expires: 08/29/2023 [facility] Work Phone: Comment on above: Expected: 05/30/2023 , Expires: 08/29/2023 Start: 05-30-2023 End: 08-29-2023 Parathyrin.intact [Mass/volume] in Serum or Plasma PTH INTACT BLD Lab Routine 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 Chronic fatigue SOB (shortness of breath) Centrilobular emphysema (HCC) Expected: 05/30/2023, Expires: 08/29/2023 [facility] Work Phone: Comment on above: Expected: 05/30/2023 , Expires: 08/29/2023 Start: 05-30-2023 End: 08-29-2023 Prealbumin [Mass/volume] in Serum or Plasma PREALBUMIN BLD Lab Routine 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 Chronic fatigue SOB (shortness of breath) Centrilobular emphysema (HCC) Expected: 05/30/2023, Expires: 08/29/2023 [facility] Work Phone: Comment on above: Expected: 05/30/2023 , Expires: 08/29/2023 Start: 05-30-2023 End: 08-29-2023 PT panel - Platelet poor plasma by Coagulation assay PROTHROMBIN TIME/PT Lab Routine 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 Chronic fatigue SOB (shortness of breath) Centrilobular emphysema (HCC) Expected: 05/30/2023, Expires: 08/29/2023 [facility] Work Phone: Comment on above: Expected: 05/30/2023 , Expires: 08/29/2023 Start: 05-30-2023 End: 08-29-2023 RUBEOLA (MEASLES)IGG RUBEOLA (MEASLES)IGG Lab Routine 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 Chronic fatigue SOB (shortness of breath) Centrilobular emphysema (HCC) Expected: 05/30/2023, Expires: 08/29/2023 [facility] Work Phone: Comment on above: Expected: 05/30/2023 , Expires: 08/29/2023 Start: 05-30-2023 End: 05-20-2024 SIX MINUTE WALK SIX MINUTE WALK PFT Routine 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 Chronic fatigue SOB (shortness of breath) Centrilobular emphysema (HCC) Expected: 05/30/2023, Expires: 05/20/2024 [facility] Work Phone: Comment on above: Expected: 05/30/2023 , Expires: 05/20/2024 Start: 05-30-2023 End: 05-20-2024 SPIROMETRY BASELINE ONLY SPIROMETRY BASELINE ONLY PFT Routine 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 Chronic fatigue SOB (shortness of breath) Centrilobular emphysema (HCC) Expected: 05/30/2023, Expires: 05/20/2024 [facility] Work Phone: Comment on above: Expected: 05/30/2023 , Expires: 05/20/2024 Start: 05-30-2023 End: 08-29-2023 SYPHILIS TOTAL W/REFLEX SYPHILIS TOTAL W/REFLEX Lab Routine 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 Chronic fatigue SOB (shortness of breath) Centrilobular emphysema (HCC) Expected: 05/30/2023, Expires: 08/29/2023 [facility] Work Phone: Comment on above: Expected: 05/30/2023 , Expires: 08/29/2023 Start: 05-30-2023 End: 08-29-2023 Thyrotropin [Units/volume] in Serum or Plasma TSH BLD Lab Routine 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 Chronic fatigue SOB (shortness of breath) Centrilobular emphysema (HCC) Expected: 05/30/2023, Expires: 08/29/2023 [facility] Work Phone: Comment on above: Expected: 05/30/2023 , Expires: 08/29/2023 Start: 05-30-2023 End: 08-29-2023 Toxoplasma gondii IgG Ab [Units/volume] in Serum TOXOPLASMOSIS IGG AB Lab Routine 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 Chronic fatigue SOB (shortness of breath) Centrilobular emphysema (HCC) Expected: 05/30/2023, Expires: 08/29/2023 [facility] Work Phone: Comment on above: Expected: 05/30/2023 , Expires: 08/29/2023 Start: 05-30-2023 End: 08-29-2023 TRANSPLANT CONFIRM ABO/RH TRANSPLANT CONFIRM ABO/RH Blood Bank Routine 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 Chronic fatigue SOB (shortness of breath) Centrilobular emphysema (HCC) Expected: 05/30/2023, Expires: 08/29/2023 [facility] Work Phone: Comment on above: Expected: 05/30/2023 , Expires: 08/29/2023 Start: 05-30-2023 End: 08-29-2023 TYPE + SCREEN TYPE + SCREEN Blood Bank Routine 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 Chronic fatigue SOB (shortness of breath) Centrilobular emphysema (HCC) Expected: 05/30/2023, Expires: 08/29/2023 [facility] Work Phone: Comment on above: Expected: 05/30/2023 , Expires: 08/29/2023 Start: 05-30-2023 End: 04-21-2024 US Carotid arteries - bilateral US CAROTID ARTERIES [facility] Vascular Lab Routine 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 Chronic fatigue SOB (shortness of breath) Centrilobular emphysema (HCC) Expected: 05/30/2023, Expires: 04/21/2024 [facility] Work Phone: Comment on above: Expected: 05/30/2023 , Expires: 04/21/2024 Start: 05-30-2023 End: 04-21-2024 US.doppler Extremity arteries - bilateral for physiologic artery study PVR ANK PRESS [facility] Vascular Lab Routine 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 Chronic fatigue SOB (shortness of breath) Centrilobular emphysema (HCC) Expected: 05/30/2023, Expires: 04/21/2024 [facility] Work Phone: Comment on above: Expected: 05/30/2023 , Expires: 04/21/2024 Start: 05-30-2023 End: 08-29-2023 VARICELLA ZOSTER IGG VARICELLA ZOSTER IGG Lab Routine 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 Chronic fatigue SOB (shortness of breath) Centrilobular emphysema (HCC) Expected: 05/30/2023, Expires: 08/29/2023 [facility] Work Phone: Comment on above: Expected: 05/30/2023 , Expires: 08/29/2023 Start: 05-30-2023 End: 05-20-2024 XR Chest 2 Views XR CHEST 2V FRONTAL/LAT Radiology Routine 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 Chronic fatigue SOB (shortness of breath) Centrilobular emphysema (HCC) Expected: 05/30/2023, Expires: 05/20/2024 [facility] Work Phone: Comment on above: Expected: 05/30/2023 , Expires: 05/20/2024 Start: 03-14-2023 Behavioral Health Screening Behavioral Health Screening [facility] Start: 03-14-2023 Depression Assessment Depression Ass essment [facility] Start: 02-18-2023 End: 05-20-2023 25-hydroxyvitamin D3 [Mass/volume] in Serum or Plasma [facility] Work Phone: Comment on above: Expected: 02/18/2023 , Expires: 05/20/2023 Start: 11-20-2022 Blood chemistry [facility] Start: 11-19-2022 Blood chemistry [facility] Start: 11-18-2022 Blood chemistry [facility] Start: 11-17-2022 Blood chemistry [facility] Start: 11-16-2022 Blood chemistry [facility] Start: 11-15-2022 Blood chemistry [facility] Start: 11-14-2022 Patient discharge [facility] Start: 11-13-2022 [facility] Start: 11-13-2022 Vitamin B12 measurement [facility] Start: 11-13-2022 [facility] Start: 11-13-2022 Inhalation therapy procedure [facility] Start: 11-12-2022 [facility] Start: 11-12-2022 Following clinical pathway protocol [facility] Start: 11-12-2022 Transfusion of blood product [facility] Start: 11-12-2022 Application of intermittent pneumatic compression device [facility] Start: 11-12-2022 Ambulation without limitation [facility] Start: 11-12-2022 Assessment of risk o f venous thromboembolism [facility] Start: 11-12-2022 Insertion of cathete r into peripheral vein [facility] Start: 11-12-2022 Measuring intake and output [facility] Start: 11-12-2022 Oxygen therapy [facility] Start: 11-12-2022 Providing care accor ding to standard [facility] Start: 11-12-2022 Referral to gastroenterology service [facility] Start: 11-12-2022 End: 11-12-2022 [facility] Start: 11-12-2022 Verification routine [facility] Start: 11-12-2022 Admission procedure [facility] Start: 11-12-2022 Administration of bl ood product [facility] Start: 11-12-2022 Covid-19 Vaccine ( season) Covid-19 Vaccine () [facility] Start: 11-12-2022 Influenza vaccination [facility] Start: 10-19-2022 [facility] Start: 10-18-2022 DIABETES SCREEN DIABETES SCREEN [facility] Start: 09-06-2022 End: 11-06-2022 Chronic hepatitis differentiation between hepatitis B and C virus panel - Serum or Plasma [facility] Work Phone: Comment on above: Expected: 09/06/2022 , Expires: 11/06/2022 Start: 09-06-2022 End: 11-06-2022 Comprehensive metabolic 2000 panel - Serum or Plasma [facility] Work Phone: Comment on above: Expected: 09/06/2022 , Expires: 11/06/2022 Start: 09-06-2022 End: 11-06-2022 HIV 1+2 Ab [Presence] in Serum or Plasma by Immunoassay [facility] Work Phone: Comment on above: Expected: 09/06/2022 , Expires: 11/06/2022 Start: 09-06-2022 End: 11-06-2022 PSA/PROSTSPECAG SCRN PSA/PROSTSPECAG SCRN Lab Routine Screening for prostate cancer Expected: 09/06/2022, Expires: 11/06/2022 [facility] Work Phone: Comment on above: Expected: 09/06/2022 , Expires: 11/06/2022 Start: 09-06-2022 End: 11-06-2022 Thyrotropin [Units/volume] in Serum or Plasma [facility] Work Phone: Comment on above: Expected: 09/06/2022 , Expires: 11/06/2022 Start: 07-08-2022 Influenza vaccination LUNG CANCER SC ANNA [facility] Start: 05-29-2022 ANNUAL PCP TEAM [employer] NIKOLAI DISEASE VISIT ANNUAL PCP TEAM CHRONIC DISEASE VISIT [facility] Start: 05-29-2022 COVID-19 VACCINE (#1) COVID-19 VACCI NE (#1) [facility] Comment on above: Postponed from 10/20 (Declined at this time) Postponed from 04/22 (Declined at this time) Start: 05-29-2022 COVID-19 VACCINE (1) COVID-19 VACCIN E (1) [facility] Comment on above: Postponed from 10/20 (Declined at this time) Start: 05-27-2022 Adult depression screening assessment DEPRESSION SCREENING [facility] Start: 03-14-2022 DEPRESSION ASSESSMENT DEPRESSION ASS ESSMENT [facility] Start: 02-10-2022 [facility] Work Phone: Start: 01-16-2022 End: 08-15-2022 Ct thorax w/o contrast material CT CHEST WO IVCON Radiology Routine Centrilobular emphysema (HCC) Lung nodules Expected: 01/16/2022, Expires: 08/15/2022 [facility] Work Phone: Comment on above: Expected: 01/16/2022 , Expires: 08/15/2022 Start: 11-12-2021 Influenza vaccination C [facility] Start: 09-10-2021 Influenza vaccination INFLUENZA (#1) [facility] Comment on above: Postponed from 11/12 (Declined at this time) Start: 07-16-2021 End: 09-15-2021 Alpha 1 antitrypsin [Mass/volume] in Serum or Plasma [facility] Work Phone: Comment on above: Expected: 07/16/2021 , Expires: 09/15/2021 Start: 2020 Shingles vaccine (1 of 2) Ramos gles vaccine (1 of 2) [facility] Start: 2020 SHINGRIX VACCINE (1 of 2) RAMOS GRIX VACCINE (1 of 2) [facility] Start: 2020 Zoster Vaccines (1 of 2) Zoster Vacc william (1 of 2) [facility] Start: 2020 [facility] Start: 09-10-2019 Lipid 1996 panel - S gege or Plasma Lipid Screening [facility] Start: 09-10-2019 Lipid panel Lipid Screening [facility] Start: 09-10-2019 LIPID SCREEN LIPID SCREEN [facility] Start: 10-21-2015 COLOGUARD (FIT-DNA) COLOGUARD (FIT-D NA) [facility] Start: 10-21-2015 Colonoscopy COLONOSCOPY [facility] Start: 10-21-2015 COLORECTAL CANCER SCREENING COLORECTAL CANCER SCREENING [facility] Start: 10-21-[address] COLONOGRAPHY [facility] Start: 10-21-2015 FECAL OCCULT BLOOD FECAL OCCULT BLOO D [facility] Start: 10-21-2015 Screening for malign ant neoplasm of colon [facility] Start: 10-21-2015 SIGMOIDOSCOPY SIGMOIDOSCOPY [facility] Start: 02-22-2015 PNEUMOCOCCAL (2 - PCV) PNEUMOCOCCAL (2 - PCV) [facility] Start: 02-22-2015 Pneumococcal 0-64 ye ars Vaccine (2 - PCV) Pneumococcal 0-64 years Vaccine (2 - PCV) [facility] Start: 02-22-2015 Pneumococcal vaccination [facility] Start: 02-22-2015 Pneumococcal Vaccine : 50+ (2 of 2 - PCV) Pneumococcal Vaccine: 50+ (2 of 2 - PCV) [facility] Start: 02-22-2015 Pneumococcal Vaccine : Pediatrics (0 to 5 Years) and At-Risk Patients (6 to 64 Years) (2 - PCV) Pneumococcal Vaccine: Pediatrics (0 to 5 Years) and At-Risk Patients (6 to 64 Years) (2 - PCV) [facility] Start: 02-22-2015 [facility] Start: 2010 Lipid panel Lipids [facility] Start: 1989 Hepatitis B Vaccine (1 of 3 - 19+ 3-dose series) Hepatitis B Vaccine (1 of 3 - 19+ 3-dose series) [facility] Start: 1988 Anxiety Screening Anxiety Screening [facility] Start: 1988 Depression Screening Depression Scre ing [facility] Start: 1988 Diabetes mellitus screening Diabetes Screening [facility] Start: 1988 Hepatitis C screening [facility] Start: 1985 HIV screening HIV screen [facility] Start: 1982 Depression Screen Depression Screen [facility] Start: 1982 Depression Screening Depression Scre ening [facility] Start: 1982 [facility] Start: 10-21-1975 COVID-19 Vaccine (1) COVID-19 Vaccin e (1) [facility] Start: 10-21-1971 MMR Vaccines (1 of 1 - Standard series) MMR Vaccines (1 of 1 - Standard series) [facility] Start: 10-21-1971 [facility] Start: 04-22-1971 COVID-19 Vaccine (#1) COVID-19 Vacci ne (#1) [facility] Start: 04-22-1971 [facility] Start: 1970 HEPATITIS B (1 of 3 - 3-dose series) HEPATITIS B (1 of 3 - 3-dose series) [facility] Start: 1970 Hepatitis B Vaccine (1 of 3 - 3-dose series) Hepatitis B Vaccine (1 of 3 - 3-dose series) [facility] Start: 1970 Hepatitis B Vaccines (1 of 3 - 3-dose series) Hepatitis B Vaccines (1 of 3 - 3-dose series) [facility] Start: 1970 HIV screening [facility] Start: 1970 Lipid panel [facility] Start: 1970 Screening for malign ant neoplasm of colon [facility] Start: 1970 [facility] Acapella Acapella Respira tory Care Routine Daily until discontinued starting 07/06/2021 [facility] Work Phone: Comment on above: Daily until disconti nued starting 07/06/2021 End: 08-11-2023 ALLOGEN SOT REC RPT [facility] Comment on above: ONCE for 1 Occurrenc es starting 08/11/2023 until 08/11/2023 End: 01-26-2023 Blood gases, arterial measurement [facility] Work Phone: End: 01-27-2023 Blood gases, arterial measurement [facility] End: 01-28-2023 Blood gases, arterial measurement [facility] End: 10-06-2023 Ct thorax w/o contrast material CT CHEST WO IVCON Radiology Routine Stage 4 very severe COPD by GOLD classification (HCC) Centrilobular emphysema (HCC) Abnormal CT scan, lung SOB (shortness of breath) 1 Occurrences starting 09/06/2022 until 10/06/2023 [facility] Work Phone: Comment on above: 1 Occurrences starti ng 09/06/2022 until 10/06/2023 End: 09-07-2023 ECG COMPLETE ECG COMPLETE ECG Routine Stage 4 very severe COPD by GOLD classification (HCC) Centrilobular emphysema (HCC) Abnormal CT scan, lung SOB (shortness of breath) 1 Occurrences starting 09/06/2022 until 09/07/2023 [facility] Work Phone: Comment on above: 1 Occurrences starti ng 09/06/2022 until 09/07/2023 ECG COMPLETE ECG COMPLETE ECG 09/06/2022 3:28 PM EDT [facility] End: 09-07-2023 Echocardiography ECHO Cardiology Routine Stage 4 very severe COPD by GOLD classification (HCC) Centrilobular emphysema (HCC) Abnormal CT scan, lung SOB (shortness of breath) 1 Occurrences starting 09/06/2022 until 09/07/2023 [facility] Work Phone: Comment on above: 1 Occurrences starti ng 09/06/2022 until 09/07/2023 End: 02-19-2024 Echocardiography ECHO Cardiology Routine Stage 4 very severe COPD by GOLD classification (HCC) Cardiac murmur, previously undiagnosed 1 Occurrences starting 02/18/2023 until 02/19/2024 [facility] Work Phone: Comment on above: 1 Occurrences starti ng 02/18/2023 until 02/19/2024 hemoglobin determination [facility] Gliadin peptide IgA Ab [Units/volume] in Serum [facility] Gliadin peptide IgG Ab [Units/volume] in Serum [facility] Hemoglobin A measurement [facility] Hemoglobin A2 measurement [facility] Hemoglobin C measurement [facility] Hemoglobin S [Presen ce] in Blood [facility] Hemoglobin S/Hemoglobin.total in Blood [facility] Hemoglobin variant test [facility] End: 08-15-2022 LUNG DIFFUSION CAPACITY (DLCO) LUNG DIFFUSION CAPACITY (DLCO) PFT Routine Stage 4 very severe COPD by GOLD classification (HCC) 1 Occurrences starting 07/16/2021 until 08/15/2022 [facility] Work Phone: Comment on above: 1 Occurrences starti ng 07/16/2021 until 08/15/2022 End: 10-06-2023 LUNG DIFFUSION CAPACITY (DLCO) LUNG DIFFUSION CAPACITY (DLCO) PFT Routine Stage 4 very severe COPD by GOLD classification ([facility]) Centrilobular emphysema ([facility]) Abnormal CT scan, lung SOB (shortness of breath) 1 Occurrences starting 09/06/2022 until 10/06/2023 [facility] Work Phone: Comment on above: 1 Occurrences starti ng 09/06/2022 until 10/06/2023 End: 03-19-2024 LUNG DIFFUSION CAPACITY (DLCO) LUNG DIFFUSION CAPACITY (DLCO) PFT Routine Stage 4 very severe COPD by GOLD classification ([facility]) 1 Occurrences starting 02/18/2023 until 03/19/2024 [facility] Work Phone: Comment on above: 1 Occurrences starti ng 02/18/2023 until 03/19/2024 End: 08-15-2022 LUNG VOLUMES LUNG VOLUMES PFT Routine Stage 4 very severe COPD by GOLD classification ([facility]) 1 Occurrences starting 07/16/2021 until 08/15/2022 [facility] Work Phone: Comment on above: 1 Occurrences starti ng 07/16/2021 until 08/15/2022 Measurement of immunoglobulin A in serum specimen [facility] Oxygen therapy [[facility] Data Set] Initiate Oxygen Therapy Protocol Respiratory Care Routine As Needed until discontinued starting 07/02/2021 [facility] Comment on above: As Needed until disc ontinued starting 07/02/2021 Patient Education [facility] Work Phone: Patient referral [facility] Work Phone: End: 10-06-2023 Radex spine lumbosacral 2/3 views XR LUMBAR GENERAL 3V AP/LAT/L5-S1 Radiology Routine Acute bilateral low back pain with bilateral sciatica 1 Occurrences starting 09/06/2022 until 10/06/2023 [facility] Work Phone: Comment on above: 1 Occurrences starti ng 09/06/2022 until 10/06/2023 End: 10-06-2023 SPIROMETRY - BASELINE AND POST DILATOR SPIROMETRY - BASELINE AND POST DILATOR PFT Routine Stage 4 very severe COPD by GOLD classification ([facility]) Centrilobular emphysema ([facility]) Abnormal CT scan, lung SOB (shortness of breath) 1 Occurrences starting 09/06/2022 until 10/06/2023 [facility] Work Phone: Comment on above: 1 Occurrences starti ng 09/06/2022 until 10/06/2023 End: 03-19-2024 SPIROMETRY - BASELINE AND POST DILATOR SPIROMETRY - BASELINE AND POST DILATOR PFT Routine Stage 4 very severe COPD by GOLD classification ([facility]) 1 Occurrences starting 02/18/2023 until 03/19/2024 [facility] Work Phone: Comment on above: 1 Occurrences starti ng 02/18/2023 until 03/19/2024 Spirometry panel Incentive trevin metry Respiratory Care Routine Daily until discontinued starting 07/02/2021 [facility] Work Phone: Comment on above: Daily until disconti nued starting 07/02/2021 SPIROMETRY WITH DILA TOR IF OBSTRUCTED SPIROMETRY WITH DILATOR IF OBSTRUCTED PFT Routine COPD, severe (HCC) 07/16/2021 3:43 PM EDT [facility] Work Phone: End: 07-10-2021 Surgical Pathology [facility] Work Phone: Comment on above: Once for 1 Occurrenc es starting 07/10/2021 until 07/10/2021 Tissue transglutamin ase IgA Ab [Units/volume] in Serum [facility] Tissue transglutamin ase IgG Ab [Units/volume] in Serum [facility] Immunizations Immunization Date Immunization Notes Care Provider Johnnie flowers 07-31-2024 pneumococcal Conjuga te, unspecified formulation Antwan Buchanan DO Work Phone: [facility] 07-31-2024 pneumococcal conjuga te (PCV20) vaccine, 20 valent (PREVNAR 20) Antwan Buchanan DO Work Phone: [facility] 09-06-2017 tetanus toxoid, redu jason diphtheria toxoid, and acellular pertussis vaccine, adsorbed Ct (I-Stat) Work Phone: [facility] Work Phone: 12-05-2014 influenza, injectabl e, quadrivalent, contains preservative Ct (I-Stat) Work Phone: [facility] 12-05-2014 influenza virus vacc ine, unspecified formulation Tony Figueroa DO Work Phone: [facility] 02-22-2014 pneumococcal polysaccharide vaccine, [address] (I-Stat) Work Phone: [facility] 11-13-2003 diphtheria and tetan us toxoids, adsorbed for pediatric use Ct (I-Stat) Work Phone: [facility] Work Phone: Payers Date Payer Category Payer Self-pay [id number] 2014 Unknown [id number] 2014 Unknown [id number] 2007 Medicaid [employer] [facility] MEDICAID [id number] 2007-Present [phone] [address] [place] [address] Medicaid [id number] 2007 Medicaid [id number] Unknown [id number] Unknown [id number] Unknown [id number] Unknown [id number] Unknown [id number] Unknown [id number] Unknown [id number] Unknown [id number] Unknown [id number] Social History Date Type Detail Facility Start: 04-28-1993 End: 04-28-2013 Tobacco smoking status INIS Smokes tobacco daily [facility] Work Phone: Start: 08-13-1991 End: 08-12-2021 History of tobacco use Cigarette Smoker [facility] Work Phone: Start: 03-02-2018 End: 05-10-2023 Cigarettes smoked current (pack per day) - Reported 1 [facility] Start: 03-02-2018 End: 04-06-2024 Tobacco use and exposure User of smokeless tobacco [facility] Work Phone: History of tobacco use Snuff User [facility] Work Phone: Start: 06-10-2021 End: 07-31-2024 Alcohol intake Current drinker of alcohol (finding) [facility] Start: 02-16-2021 End: 09-05-2022 History SDOH Alcohol Frequency 3 [facility] Start: 02-16-2021 End: 09-05-2022 History SDOH Alcohol Std Drinks 1 [facility] Start: 02-16-2021 End: 09-05-2022 History SDOH Alcohol Binge 2 [facility] Start: 02-16-2021 End: 09-05-2022 History SDOH Social Connections Phone 5 [facility] Start: 02-16-2021 End: 09-05-2022 History SDOH Social Connections Get Together 98 [facility] Start: 02-16-2021 End: 09-05-2022 History SDOH Stress 4 [facility] Start: 03-02-2018 Tobacco Comment a few cigs a day [facility] Start: 1970 Sex Assigned At Not on file [facility] Start: 08-04-2020 End: 12-04-2022 Exposure to SARS-CoV-2 (event) Not sure [facility] Work Phone: Start: 10-02-2019 End: 04-06-2024 Tobacco smoking status Ex-smoker (finding) [facility] Start: 02-13-2012 Tobacco smoking status Smokeless tobacco user within last 30 days [facility] Sex Assigned At Sex [facility] Start: 04-04-2021 End: 11-27-2022 Tobacco use and exposure Former smokeless tobacco user [employer] Work Phone: End: 06-24-2021 History of tobacco use Chews Tobacco [employer] [facility] Work Phone: Start: 04-04-2021 History SDOH Alcohol Comment Occasionally [employer] [facility] Work Phone: Start: 08-13-1991 End: 08-12-2021 History of tobacco use Current smoker [facility] Work Phone: Start: 07-16-2021 End: 02-18-2023 Tobacco Comment a few cigs a day. 2 ppd in past [facility] Start: 08-15-2021 End: 04-29-2023 Tobacco smoking status NHIS Unknown if ever smoked [facility] Start: 11-19-2014 None [facility] Start: 11-19-2014 Alone [facility] Start: 11-19-2014 Cigarettes [facility] Start: 1970 Sex Assigned At Male [facility] Start: 09-05-2022 End: 05-10-2023 Social connection and isolation panel [facility] Do you belong to any clubs or organizations such as episcopal groups, unions, fraternal or athletic groups, or school groups? No [facility] Are you now , , , , never or living with a partner? Refused [facility] How often to you hav e a drink containing alcohol? Monthly or less [facility] How many standard dr inks containing alcohol do you have on a typical day? 1 or 2 [facility] How often do you hav e 6 or more drinks on 1 occasion? Never [facility] How hard is it for y ou to pay for the very basics like food, housing, medical care, and heating Not very hard [facility] Do you feel stress - tense, restless, nervous, or anxious, or unable to sleep at night because your mind is troubled all the time - these days [OSQ] Only a little [facility] (I/We) worried wheth er (my/our) food would run out before (I/we) got money to buy more. Never true [facility] Start: 03-01-2023 Tobacco Comment 2 ppd in past [facility] Medical Equipment Procedure Code Equipment Code Equipment Origin al Text Equipment Identifier Dates Tube 76mm 6.4mm 10.8mm Lp [facility] - [id number] Start: 07-02-2014 Goals Date Patient Goal Desired Activity /State Functional Status Date Assessment Result Facility 11-14-2022 Functional status Ambulates [facility] Work Phone: 08-17-2021 Functional status Up ad lien [facility] Work Phone: 08-01-2021 [facility] Functional Status Estef[facility] 09-14-2014 Are you deaf, or do you have serious difficulty hearing No 09/14/2014 12:05 PM Cuco Jay RN No [facility] 09-14-2014 Are you blind, or do you have serious difficulty seeing, even when wearing glasses No 09/14/2014 12:05 PM Cuco Jay RN No [facility] 09-14-2014 Do you have serious difficulty walking or climbing stairs No 09/14/2014 12:05 PM Cuco Jay RN No [facility] 09-14-2014 Do you have difficul ty dressing or bathing No 09/14/2014 12:05 PM Cuco Jay RN No [facility] 09-14-2014 Because of a physica l, mental, or emotional condition, do you have difficulty doing errands alone such as visiting a physician's office or shopping No 09/14/2014 12:05 PM Cuco Jay RN No [facility] Mental Status Date Assessment Result Facility 11-14-2022 Cognitive function Voice/Name [facility] Work Phone: 08-17-2021 Cognitive function Appropriate;[facility] Work Phone: 08-01-2021 Mental Status [facility] 07-17-2021 Mental Status [facility] 06-21-2021 Mental Status [facility] 06-20-2021 Mental Status [facility] 09-14-2014 Because of a physica l, mental, or emotional condition, do you have serious difficulty concentrating, remembering, or making decisions No 09/14/2014 12:05 PM Cuco Jay RN No [facility] Clinical Notes 09-09-2014 to 10-22-2024 Telephone Encounter - Fabi Hughes LPN - 10/22/2024 9:09 AM EDTTelephone Encounter - Fabi Hughes LPN - 10/22/2024 9:09 AM EDTTelephone Encounter - Fay Vergara - 10/22/2024 8:32 AM EDT Note Date & Type Note Facility 10-22-2024 Telephone encounter Note Prescription Refill Information The patient has been identified by name and date of : Yes Caregiver verified no other encounters exist for this prescription request: Yes Caregiver confirmed with patient/requestor that no other refills are due, in the near future, with this provider at this time: Yes The last office visit in the department: 07/31/24 Does the patient have a future office visit with this provider/department: Yes Requested Prescriptions Pending Prescriptions Disp Refills sertraline (ZOLOFT) 100 mg tablet 90 tablet 1 Sig: Take 1 tablet by mouth once daily. Fabi Hughes LPN October 22, 2024 9:09 AM [facility] 10-22-2024 Miscellaneous Notes Prescription Refill Information The patient has been identified by name and date of : Yes Caregiver verified no other encounters exist for this prescription request: Yes Caregiver confirmed with patient/requestor that no other refills are due, in the near future, with this provider at this time: Yes The last office visit in the department: 07/31/24 Does the patient have a future office visit with this provider/department: Yes Requested Prescriptions Pending Prescriptions Disp Refills sertraline (ZOLOFT) 100 mg tablet 90 tablet 1 Sig: Take 1 tablet by mouth once daily. Fabi Hughes LPN October 22, 2024 9:09 AM Patient has been identified by name and date of : Yes Pharmacy phones for refill(s): Requested Prescriptions Pending Prescriptions Disp Refills sertraline (ZOLOFT) 100 mg tablet 90 tablet 1 Sig: Take 1 tablet by mouth once daily. Date of last office visit in primary care: 07/31/2024 Date of next office visit in primary care: Visit date not found Please advise. Thank you. Fay Vergara. documented in this encounter [facility] 10-22-2024 Telephone encounter Note Patient has been identified by name and date of : Yes Pharmacy phones for refill(s): Requested Prescriptions Pending Prescriptions Disp Refills sertraline (ZOLOFT) 100 mg tablet 90 tablet 1 Sig: Take 1 tablet by mouth once daily. Date of last office visit in primary care: 07/31/2024 Date of next office visit in primary care: Visit date not found Please advise. Thank you. Fay Vergara. [facility] 08-06-2024 Note Patient Outreach (PU LMMN) CALL,LUIS Christie II ([id number]) 1970 M Date Time Provider Department 08/06/24 FRANCOIS DELGADO During your visit today, we recorded the following information about you: Allergies As of Date: 08/06/2024 Noted Allergy Reaction CODEINE 12/28/2005 14 - Other: See Comments Comments: Pt can not remember effects happened when was baby TOMATOES 08/10/2023 16 - Unknown Comments: Raw only; unsure of reaction. Okay with cooked tomatoes ULTRAM (TRAMADOL HCL) 12/20/2007 7 - Swelling Comments: Facial swelling Date Reviewed: 04/06/2024 Reviewed by: Nayana Ricks RPFT - Fully Assessed Visit Diagnosis:Tobacco abuse [Z72.0] Order(s):CONSULT LUNG [facility] [[id number]] Order #: [id number]: 1 FUTURE Prescriptions as of 08/09/2024 - fluticasone-salmeterol HFA (ADVAIR HFA) 230-21 mcg/actuation inhaler INHALE 2 PUFFS TWICE DAILY DIRECTED - sertraline (ZOLOFT) 100 mg tablet Take 1 tablet by mouth once daily. - tiotropium bromide (SPIRIVA RESPIMAT) 2.5 mcg/actuation inhaler Inhale 2 Puffs as instructed once daily. - tiotropium bromide (SPIRIVA RESPIMAT) 2.5 mcg/actuation inhaler Inhale 2 Puffs as instructed once daily. - pantoprazole DR (PROTONIX) 40 mg tablet Take 1 tablet by mouth twice daily. - ipratropium-albuterol (DUONEB) 0.5 mg-3 mg(2.5 mg base)/3 mL nebu Inhale 3 mL as instructed every 4 hours as needed for wheezing/shortness of breath. - traZODone (DESYREL) 50 mg tablet Take 1-3 tablets by mouth daily at bedtime. Meds Comments as of 07/03/2014: v Problem List As Of Date 08/06/2024 Noted Resolved SEBACEOUS CYST [L72.3] 02/16/2006 Shortness of breath [R06.02] 08/10/2013 Chest pain [R07.9] 08/10/2013 08/02/2023 Acute sinusitis [J01.90] 08/10/2013 08/02/2023 COPD (chronic obstructive pulmonary disease) (H*08/10/2013 Tobacco use disorder [F17.200] 08/10/2013 Decreased exercise tolerance [R68.89] 08/21/2013 08/02/2023 COPD, severe (HCC) [J44.9] 08/21/2013 Diverticulosis [K57.90] 11/16/2013 08/02/2023 Left inguinal hernia [K40.90] 01/02/2014 08/02/2023 MRSA pneumonia (HCC) [J15.212] 06/13/2014 05/01/2018 Lung abscess (HCC) [J85.2] 06/13/2014 08/02/2023 Emphysema of lung (HCC) [J43.9] 06/13/2014 08/02/2023 Respiratory failure (HCC) [J96.90] 06/14/2014 08/02/2023 ARDS (adult respiratory distress syndrome) (HCC*06/14/2014 08/02/2023 Septic shock (HCC) [A41.9, R65.21] 06/14/2014 05/01/2018 NANCY (acute kidney injury) (HCC) [N17.9] 06/14/2014 05/01/2018 Abdominal distention [R14.0] 06/14/2014 08/02/2023 Anemia [D64.9] 06/25/2014 08/02/2023 Hematuria [R31.9] 07/02/2014 08/02/2023 Urinary retention [R33.9] 08/20/2014 08/02/2023 Acute pancreatitis [K85.90] 09/09/2014 Colitis [K52.9] 09/09/2014 08/02/2023 Anxiety [F41.9] 09/09/2014 08/02/2023 Elevated troponin [R79.89] 09/09/2014 09/10/2014 Hypokalemia [E87.6] 09/09/2014 05/01/2018 Underweight [R63.6] 01/06/2015 08/02/2023 Urethral trauma [S37.30XA] 02/10/2015 08/02/2023 Left groin pain [R10.32] 02/10/2015 08/02/2023 History of left inguinal hernia [Z87.19] 02/10/2015 08/02/2023 Low magnesium level [R79.0] 05/01/2018 08/02/2023 Iron deficiency anemia due to chronic blood los*05/01/2018 08/02/2023 Other gastritis without bleeding [K29.60] 12/29/2018 08/02/2023 EDI (generalized anxiety disorder) [F41.1] 06/01/2021 08/02/2023 Lung nodule < 6cm on CT [GKS6975] 05/2021 Pneumothorax [J93.9] 02/18/2023 Stage 4 very severe COPD by GOLD classification*02/18/2023 Fatigue [R53.83] 02/18/2023 Preoperative respiratory examination [Z01.811] 08/02/2023 Encounter Status:Closed by EPIC, PRODUSER on 08/09/24 [facility] 08-01-2024 Telephone encounter Note Got a hold of providers nurse [place] and she said provider had seen message. Let her know they would like a call back as soon as possible. She said she would let provider know. Dayami El RN [facility] 08-01-2024 Miscellaneous Notes Got a hold of providers nurse [place] and she said provider had seen message. Let her know they would like a call back as soon as possible. She said she would let provider know. Dayami El RN Arianna with [facility] Lung Transplant [facility] called in and states Pt was referred to them for a lung transplant for COPD and Pulmonary disease. She reports Pt was declined on 08/10/24 due to psychosocial issues, she states the patient is an undue risk and they will not be able to move forward with the transplant. She states Pulmonary already know that patient is not a candidate for a transplant any longer. She reports Pt is non-compliant, still smoking and vaping, not showing up to appointments, and walking out of testing. She states there are notes in the computer if the provider needs to read about the patient before calling them back. She received permission from the Lead Nurse Rebeka Meehan to give the provider her mobile # [phone] to call back. Dayami El RN documented in this encounter [facility] 07-31-2024 Telephone encounter Note Arianna with [facility] Lung Transplant [facility] called in and states Pt was referred to them for a lung transplant for COPD and Pulmonary disease. She reports Pt was declined on 08/10/24 due to psychosocial issues, she states the patient is an undue risk and they will not be able to move forward with the transplant. She states Pulmonary already know that patient is not a candidate for a transplant any longer. She reports Pt is non-compliant, still smoking and vaping, not showing up to appointments, and walking out of testing. She states there are notes in the computer if the provider needs to read about the patient before calling them back. She received permission from the Lead Nurse Rebeka Meehan to give the provider her mobile # [phone] to call back. Dayami El RN [facility] 07-31-2024 Note HNO ID: [id number] Author: ANTWAN BUCHANAN, DO Service: ? Author Type: Physician Type: Progress Notes Filed: 08/15/2024 22:17 Note Text: CC: Luis Steele II is a 53 year old male who presents to the office for follow up HPI: COPD, severe, need for b/l lung transplant surgery. Was evaluated by the Psychologist and doesn't feel that the interaction went well. He was denied that he is a good candidate for this surgery. He is considering getting a 2nd opinion by another institute/hospital system. He states that he is not smoking but is using tobacco dip at times. He does have support from his family and neighbors if he would qualify for lung transplant surgery He is frustrated because his activity is very limited due to his chronic pulmonary sympotoms He has lost a few lbs in the last year- states appetite is still overall normal He is using inhalers as prescribed. PAST MEDICAL HISTORY Diagnosis Date Blood type B+ Calculus of kidney chronic--had had stent placed COPD, severe (HCC) 12/2013 Diverticulosis Gastric ulcer 02/03/2018 per endoscopy [facility] Hyperlipemia 08/2013 Low HDL (under 40) 08/2013 Lung nodule < 6cm on CT 05/[address] 05/2022 MRSA pneumonia (HCC) 2014 hospitalized, intubated, pressors Pancreatitis (HCC) Spontaneous pneumothorax TIA (transient ischemic attack) 1994 Pt. reports Tobacco abuse PAST SURGICAL HISTORY Procedure Laterality Date CENTRAL LINE 06/14/2014 COLONOSCOPY FLX DX W/COLLJ SPEC WHEN PFRMD 2012 EGD 02/02/2018 [facility] [place]. Hp-, mild chronic gastritis PAST SURGICAL HISTORY OF kidney stone stent PICC LINE INSERT/CONSULT 07/03/2014 RPR 1ST INGUN HRNA AGE 5 YRS/> REDUCIBLE 2/4/15 left direct TONSILLECTOMY PRIMARY/SECONDARY Social History: Social History Tobacco Use Smoking status: Former Current packs/day: 0.00 Average packs/day: 2.0 packs/day for 30.0 years (60.0 ttl pk-yrs) Types: Cigarettes Start date: 08/1991 Quit date: 08/2021 Years since quittin.0 Smokeless tobacco: Current Types: Snuff Tobacco comments: 2 ppd in past Substance Use Topics Alcohol use: Yes Comment: states rarely for alcohol Drug use: No FAMILY HISTORY Problem Relation Age of Onset Allergies Mother Heart Mother NH Stroke Mother Liver Cancer Mother Lung Cancer Mother Cancer Father Prostate Cancer Father Stroke Father Heart Father Allergies Sister Cervical Cancer Sister Allergies Brother Current Outpatient prescriptions: fluticasone-salmeterol HFA (ADVAIR HFA) 230-21 mcg/actuation inhaler INHALE 2 PUFFS TWICE DAILY DIRECTED sertraline (ZOLOFT) 100 mg tablet Take 1 tablet by mouth once daily. tiotropium bromide (SPIRIVA RESPIMAT) 2.5 mcg/actuation inhaler Inhale 2 Puffs as instructed once daily. tiotropium bromide (SPIRIVA RESPIMAT) 2.5 mcg/actuation inhaler Inhale 2 Puffs as instructed once daily. pantoprazole DR (PROTONIX) 40 mg tablet Take 1 tablet by mouth twice daily. ipratropium-albuterol (DUONEB) 0.5 mg-3 mg(2.5 mg base)/3 mL nebu Inhale 3 mL as instructed every 4 hours as needed for wheezing/shortness of breath. traZODone (DESYREL) 50 mg tablet Take 1-3 tablets by mouth daily at bedtime. (Patient taking differently: Take 50 mg by mouth at bedtime as needed (insomnia).) Allergies: ALLERGIES Allergen Reactions Codeine Other: See Comments Pt can not remember effects happened when was baby Tomatoes Unknown Raw only; unsure of reaction. Okay with cooked tomatoes Ultram [Tramadol Hc* Swelling Facial swelling ROS: See HPI PE: 07/31/24 1431 BP: 120/84 Pulse: 64 Resp: 24 Temp: 36.7 ?C (98 ?F) TempSrc: Left Tympanic Weight: 76.2 kg (168 lb) Height: 177.8 cm (5' 10) Gen: AANDO,thin, oxygen by nasal cannula in place, Pleasant, cooperative HEENT: NT/AC, PERRLA, EOMs intact b/l, nares clear and patent b/l, pharynx without erythema, exudate or lesions poor dentition. MMM, Uvula midline. EACs without erythema or debris. TMs pearly harris with intact landmarks b/l. Neck: supple, No cervical LAD, no thyromegaly, no carotid bruits CV: RRR, normal S1 and S2, no murmurs, no gallops, no rubs, Pulses 2+ and symmetric in UE and LE b/l Lungs: oxygen nasal cannula in place, no conversational dyspnea, diffusely diminished Abd: soft, NT, ND, +BS, no hepatosplenomegaly MS: FROM all 4 extremities Neuro: CN II-XII intact b/l, strength 5/5 b/l UE and LE, DTRs 2/4 UE and LE, sensation intact. Skin: warm, dry, intact, No rashes or lesions on exposed skin. ASSESSMENT/PLAN: 1. SOB (shortness of breath) - ICD9: 786.05, ICD10: R06.02 (primary diagnosis) Secondary to stage 4 COPD, need for follow up and mgmt per Therapeutic Program Worker and transplant lung team for opinion regarding transplant of lungs 2. Vitamin D deficiency - ICD9: 268.9, ICD10: E55.9 Continue supplement 3. Chronic obstructive pulmonary disease, unspecified COPD type (HCC) - ICD9: 496, ICD10 (more content not included)... [facility] 07-31-2024 History of Present illness Narrative CC: Luis Steele II is a 53 year old male who presents to the office for follow up HPI: COPD, severe, need for b/l lung transplant surgery. Was evaluated by the Psychologist and doesn't feel that the interaction went well. He was denied that he is a good candidate for this surgery. He is considering getting a 2nd opinion by another institute/hospital system. He states that he is not smoking but is using tobacco dip at times. He does have support from his family and neighbors if he would qualify for lung transplant surgery He is frustrated because his activity is very limited due to his chronic pulmonary sympotoms He has lost a few lbs in the last year- states appetite is still overall normal He is using inhalers as prescribed. PAST MEDICAL HISTORY Diagnosis Date Blood type B+ Calculus of kidney chronic--had had stent placed COPD, severe (HCC) 12/2013 Diverticulosis Gastric [facility]03[facility] Hyperlipemia 08/2013 Low HDL (under 40) 08/2013 Lung nodule < 6cm on CT 05/[address] 05/2022 MRSA pneumonia (HCC) 2014 hospitalized, intubated, pressors Pancreatitis (HCC) Spontaneous pneumothorax TIA (transient ischemic attack) 1994 Pt. reports Tobacco abuse PAST SURGICAL HISTORY Procedure Laterality Date CENTRAL LINE 06/14/2014 COLONOSCOPY FLX DX W/COLLJ SPEC WHEN PFRMD 2012 EGD 02/02/2018 [facility] [place]. Hp-, mild chronic gastritis PAST SURGICAL HISTORY OF kidney stone stent PICC LINE INSERT/CONSULT 07/03/2014 RPR 1ST INGUN HRNA AGE 5 YRS/> REDUCIBLE 04/17/14 left direct TONSILLECTOMY PRIMARY/SECONDARY <AGE 12 Social History: Social History Tobacco Use Smoking status: Former Current packs/day: 0.00 Average packs/day: 2.0 packs/day for 30.0 years (60.0 ttl pk-yrs) Types: Cigarettes Start date: 08/1991 Quit date: 08/2021 Years since quittin.0 Smokeless tobacco: Current Types: Snuff Tobacco comments: 2 ppd in past Substance Use Topics Alcohol use: Yes Comment: states rarely for alcohol Drug use: No FAMILY HISTORY Problem Relation Age of Onset Allergies Mother Heart Mother NH Stroke Mother Liver Cancer Mother Lung Cancer Mother Cancer Father Prostate Cancer Father Stroke Father Heart Father Allergies Sister Cervical Cancer Sister Allergies Brother Current Outpatient prescriptions: fluticasone-salmeterol HFA (ADVAIR HFA) 230-21 mcg/actuation inhaler INHALE 2 PUFFS TWICE DAILY DIRECTED sertraline (ZOLOFT) 100 mg tablet Take 1 tablet by mouth once daily. tiotropium bromide (SPIRIVA RESPIMAT) 2.5 mcg/actuation inhaler Inhale 2 Puffs as instructed once daily. tiotropium bromide (SPIRIVA RESPIMAT) 2.5 mcg/actuation inhaler Inhale 2 Puffs as instructed once daily. pantoprazole DR (PROTONIX) 40 mg tablet Take 1 tablet by mouth twice daily. ipratropium-albuterol (DUONEB) 0.5 mg-3 mg(2.5 mg base)/3 mL nebu Inhale 3 mL as instructed every 4 hours as needed for wheezing/shortness of breath. traZODone (DESYREL) 50 mg tablet Take 1-3 tablets by mouth daily at bedtime. (Patient taking differently: Take 50 mg by mouth at bedtime as needed (insomnia).) Allergies: ALLERGIES Allergen Reactions Codeine Other: See Comments Pt can not remember effects happened when was baby Tomatoes Unknown Raw only; unsure of reaction. Okay with cooked tomatoes Ultram [Tramadol Hc* Swelling Facial swelling ROS: See HPI PE: 07/31/24 1431 BP: 120/84 Pulse: 64 Resp: 24 Temp: 36.7 C (98 F) TempSrc: Left Tympanic Weight: 76.2 kg (168 lb) Height: 177.8 cm (5' 10) Gen: A&O,thin, oxygen by nasal cannula in place, Pleasant, cooperative HEENT: NT/AC, PERRLA, EOMs intact b/l, nares clear and patent b/l, pharynx without erythema, exudate or lesions poor dentition. MMM, Uvula midline. EACs without erythema or debris. TMs pearly harris with intact landmarks b/l. Neck: supple, No cervical LAD, no thyromegaly, no carotid bruits CV: RRR, normal S1 and S2, no murmurs, no gallops, no rubs, Pulses 2+ and symmetric in UE and LE b/l Lungs: oxygen nasal cannula in place, no conversational dyspnea, diffusely diminished Abd: soft, NT, ND, +BS, no hepatosplenomegaly MS: FROM all 4 extremities Neuro: CN II-XII intact b/l, strength 5/5 b/l UE and LE, DTRs 2/4 UE and LE, sensation intact. Skin: warm, dry, intact, No rashes or lesions on exposed skin. ASSESSMENT/PLAN: 1. SOB (shortness of breath) - ICD9: 786.05, ICD10: R06.02 (primary diagnosis) Secondary to stage 4 COPD, need for follow up and mgmt per Therapeutic Program Worker and transplant lung team for opinion regarding transplant of lungs 2. Vitamin D deficiency - ICD9: 268.9, ICD10: E55.9 Continue supplement 3. Chronic obstructive pulmonary disease, unspecified COPD type (HCC) - ICD9: 496, ICD10: J44.9 Symptoms are Secondary to stage 4 COPD, need for follow up and mgmt per Therapeutic Program Worker and transplant lung team for opinion regarding transplant of lungs - CONSULT TO TRANSPLANT CENTER 4. EDI (generalized anxiety disorder) - ICD9: 300.02, ICD10: F41.1 Stable, chronic 5. Stage 4 very severe COPD by GOLD classification (HCC) - ICD9: 496, ICD10: J44.9 Symptoms are Secondary to stage 4 COPD, need for follow up and mgmt per Therapeutic Program Worker and transplant lung team for opinion regarding transplant of lungs - CONSULT TO TRANSPLANT CENTER 6. Iron deficiency anemia, unspecified iron deficiency anemia type - ICD9: 280.9, ICD10: D50.9 stable 7. Fatigue, unspecified type - ICD9: 780.79, ICD10: R53.83 - COMPREHENSIVE METABOLIC PANEL - COMPLETE BLOOD COUNT AND DIFFERENTIAL - THYROID STIMULATING HORMONE 8. Dyslipidemia - ICD9: 272.4, ICD10: E78.5 - Control undetermined, due for labs - Counseled on healthy diet and regular exercise - LIPID PANEL, FASTING 9. Hyperglycemia - ICD9: 790.29, ICD10: R73.9 - HEMOGLOBIN A1C Antwan Buchanan DO To ER if develops chest pain, shortness of breath, or severe worsening of symptoms. Discussed risks, benefits, alternatives, and potential side effects of medications. Patient expressed understanding and agreed with the plan. Antwan Buchanan DO [address] [place] [address] documented in this encounter [facility] 06-15-2024 Telephone encounter Note JOSEPH 03/01/23 PSS Team- please offer patient a follow up appointment. Patient phones requesting refills as follows: Requested Prescriptions Pending Prescriptions Disp Refills ADVAIR HFA 230-21 mcg/actuation inhaler [Pharmacy Med Name: ADVAIR HFA 230-21 MCG INHALER] 12 each 9 Sig: INHALE 2 PUFFS TWICE DAILY DIRECTED Please review and advise. Lesa Ramey LPN [facility] 06-15-2024 Miscellaneous Notes JOSEPH 03/01/23 PSS Team- please offer patient a follow up appointment. Patient phones requesting refills as follows: Requested Prescriptions Pending Prescriptions Disp Refills ADVAIR HFA 230-21 mcg/actuation inhaler [Pharmacy Med Name: ADVAIR HFA 230-21 MCG INHALER] 12 each 9 Sig: INHALE 2 PUFFS TWICE DAILY DIRECTED Please review and advise. Lesa Ramey LPN documented in this encounter [facility] 04-09-2024 Telephone encounter Note See refill encounter [facility] 04-09-2024 Miscellaneous Notes See refill encounter documented in this encounter [facility] 04-09-2024 Telephone encounter Note Images from the original note were not included. Stanley Steele II Famchantel My Chart Rx Pool I need a reup on my sertraline [facility] 04-09-2024 Miscellaneous Notes Images from the original note were not included. Stanley Steele II Wstr Famp My Chart Rx Pool I need a reup on my sertraline documented in this encounter [facility] 04-06-2024 Note HNO ID: [id number] Author: NAYANA RICKS RPFT Service: ? Author Type: Respiratory Therapist Type: Procedures Filed: 04/06/2024 14:28 Note Text: RESPIRATORY THERAPY OXIMETRY WITH AMBULATION Oximetry with Ambulation Test for This Encounter O2 Device O2 Adapter NC O2 Flow SpO2% HR Activity Ft Walked (ft) Time (min) Avg Speed (MPH) R/A 86 109 Resting NC 2 93 106 Resting NC 2 92 125 Walking, usual pace 250 3 0.95 General Information Pulse Oximetry Site Total Time Spent Walking Assistance/O2 Supply Carrier Forehead 30 Wheeled Walker NAME: VAL Naik PATIENT NAME: Luis Steele II DATE: April 06, 2024 TIME: 2:28 PM Comment: [facility] 04-06-2024 Procedure note Associated Ord er(s): OXIMETRY WITH AMBULATION RESPIRATORY THERAPY OXIMETRY WITH AMBULATION Oximetry with Ambulation Test for This Encounter O2 Device O2 Adapter NC O2 Flow SpO2% HR Activity Ft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 candidate for a Lung Txp Evaluation. Inform the patient that we cannot move forward with a transplant evaluation until their BMI is 34 or under. Requestthe patient to call back when requirement is met. History of Smoking: Date quit: April-2022 To be a candidate for LUNG TXP Evaluation they have to be nicotine free for 6 months which includes smoking cigarettes, chewing tobacco, vaping, etc. Exception to this rule is if the patient tellsyou that they are nicotine free for 4-5 months then they can be considered to start an evaluation per team review. History of Cancer: No. Patient must be in remission for 5 years. Some skin cancers may be acceptable, please proceed and after completion refer to travel coordinator if needed. Have you ever been evaluated for a lung transplant before? No. If YES - are you currently listed for a lung transplant at an outside Transplant Center: No. Have you ever been removed from the transplant waitlist: No. If YES - which Transplant Center were they removed from? No Also ask the patient to send us their turned down letter for the Lung Transplant Statement Clerks Manager to review. Is this referral related to a workman's compensation ([employer]) issue/claim? No. 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 [facility]? FC will need to be alerted if known. Outside Records/Images Needed: Yes Where are outside records being requested from: [facility] ,[facility] and [place] [employer] Requested? Yes A Txp Coord will call for medical intake; What is the best phone number for the Txp Coord to contact you? [phone] Additional Information: N/A documented in this encounterK[facility]02-05-2024 Miscellaneous Notes* Telephone Encounter - Rebeka De Santiago RN - 04/18/2023 10:51 AM EST Attempted to reach out to patient's emergency contact, Leonides (son) listed in his chart. I was unable to speak with him but left him a message that we have been unsuccessful at contacting the patientand provided the lung transplant phone number for him to get a message to his father or call us back with any update about him. Rebeka De Santiago RN, BSN Pre-Lung Magazine Supervisor * Telephone Encounter - Rebeka De Santiago RN - 04/18/2023 10:48 AM EST I attempted to reach patient again on his home number listed x2. Got message both times that call was unable to be completed due to number being not in service. Will attempt emergency contact. Rebeka De Santiago RN, BSN Pre-Lung Magazine Supervisor * Telephone Encounter - Rebeka De Santiago RN - 04/18/2023 10:47 AM EST Attempted to contact patient as our intake team has been unsuccessful at reaching him. I called mobile number listed but was unable to speak with him and unable to leave a message as his voicemail isfull. Rebeka De Santiago RN, BSN Pre-Lung Magazine Supervisor documented in this encounterK[facility]12-08-2023 History of Present illness Narrative* Antwan Buchanan, DO - 02/18/2023 5:27 PM EST CC: Luis Steele II is a 52 year old male who presents to the office for follow up HPI: He was recently hospitalized on Dec 26 when he presented to [place] [facility] and was suddenly very short of breath. Son had squad called and he was found to have a Pneumothorax. He was intubated and chest tube was placed. The tube was dislodged after 2 days and fell out. About 8 hours latera he was reintubated and another chest tube placed. He spent [facility] when he was [facility]. He has not smoked for the last 12-18 months He has severe stage 4 COPD. Has been told that he needs to consider lung transplant by hospitalist. He hasn't had recent PFTs or DLCO and hasn't recently been seen by Therapeutic Program Worker. + severe fatigue since he has been hospitalized. Feels it is worse than my normal. No obvious specific areas of bleeding or other symptoms. Has chronic severe dyspnea and cough PAST MEDICAL HISTORY Diagnosis Date Blood type B+ Calculus of kidney chronic--had had stent placed COPD, severe (HCC) 12/2013 Diverticulosis Gastric ulcer 02/03/[address] [facility] Hyperlipemia 08/2013 Low HDL (under 40) 08/2013 Lung nodule < 6cm on CT 05/[address] 05/2022 MRSA pneumonia (HCC) 2014 hospitalized, intubated, pressors Pancreatitis TIA (transient ischemic attack) 1994 Pt. reports Tobacco abuse PAST SURGICAL HISTORY Procedure Laterality Date CENTRAL LINE 06/14/2014 COLONOSCOPY FLX DX W/COLLJ SPEC WHEN PFRMD 2012 EGD 02/02/2018 [facility]. Hp-, mild chronic gastritis PAST SURGICAL HISTORY OF kidney stone stent PICC LINE INSERT/CONSULT 07/03/2014 RPR 1ST INGUN HRNA AGE 5 YRS/> REDUCIBLE 04/17/14 left direct TONSILLECTOMY PRIMARY/SECONDARY <AGE 12 Current Outpatient Medications Medication Sig fluticasone-salmeterol HFA (ADVAIR HFA) 230-21 mcg/actuation inhaler Inhale 2 Puffs as instructed twice daily. cyclobenzaprine (FLEXERIL) 10 mg tablet Take 1 tablet by mouth three times daily as needed for muscle spasm. pantoprazole DR (PROTONIX) 40 mg tablet Take 1 tablet by mouth twice daily. sertraline (ZOLOFT) 100 mg tablet Take 1 tablet by mouth once daily. ipratropium-albuterol (DUONEB) 0.5 mg-3 mg(2.5 mg base)/3 mL nebu Inhale 3 mL as instructed every 4hours as needed for wheezing/shortness of breath. buPROPion XL (WELLBUTRIN XL) 300 mg 24 hr tablet Take 1 tablet by mouth once daily. traZODone (DESYREL) 50 mg tablet Take 1-3 tablets by mouth daily at bedtime. aspirin, enteric coated (ASPIRIN, ENTERIC COATED) 81 mg EC tablet Take 81 mg by mouth once daily. nicotine (NICODERM) 21 mg/24 hr Apply 1 Patch as directed every 24 hours. Remove old patch at bedtime, new patch in the morning each day Current Facility-Administered Medications Medication Dose Route Frequency perflutren lipid microspheres 1.3 mL in NaCl (PF) 0.9% 10 mL injection (DEFINITY) INTRAVENOUS DIRECTED PRN sodium chloride 0.9 % (flush) 10 mL (BD POSIFLUSH) 10 mL INTRAVENOUS DIRECTED PRN ALLERGIES Allergen Reactions Codeine Other: See Comments Pt can not remember effects happened when was baby Ultram [Tramadol Hc* Swelling Social History Tobacco Use Smoking status: Former Packs/day: 2.00 Years: 30.00 Additional pack years: 0.00 Total pack years: 60.00 Types: Cigarettes Quit date: 2021 Years since quittin.9 Smokeless tobacco: Current Types: Snuff Tobacco comments: a few cigs a day. 2 ppd in past Substance Use Topics Alcohol use: Yes Comment: states rarely for alcohol Drug use: No ROS: See HPI PE: BP 146/80 Pulse 80 Temp (Src) 99.3 (Left Tympanic) Resp 20 Wt 164 lb (74.4kg) Gen: A&OX3, NAD, non-toxic appearing HEENT: PERRLA, EOMs intact b/l, nares without drainage, pharynx without erythema, exudate, lesions,or drainage. Uvula midline. Neck: No LAD, no thyromegaly, no meningismus. CV: RRR, 1/6 HSM RUSB murmur Lungs: severely diminished diffusely without any obvious rhonchi or wheezing on exam, nasal canula oxygen in place No edema, normal pulses Skin: No rashes, lesions, or wounds on exposed skin. ASSESSMENT/PLAN: 1. Fatigue, unspecified type - ICD9: 780.79, ICD10: R53.83 (primary diagnosis) Labs as ordered, likely multifactorial with severe stage 4 COPD and anemia in the past. - IRON + TIBC - FERRITIN BLD - VITAMIN B12 BLOOD - VITAMIN D 25 HYDROXY - TSH BLD - CBC + DIFF - COMP METABOLIC PANEL 2. Anemia, unspecified type - ICD9: 285.9, ICD10: D64.9 See above, recheck labs as ordered. - IRON + TIBC - FERRITIN BLD - VITAMIN B12 BLOOD - CBC + DIFF 3. Stage 4 very severe COPD by GOLD classification (HCC) - ICD9: 496, ICD10: J44.9 - f/u with Therapeutic Program Worker for opinion and need for lung testing as ordered as well as ECHO - CONSULT TO PULMONARY MEDICINE - LUNG DIFFUSION CAPACITY (DLCO) - ECHO - PERFLUTREN LIPID MICROSPHERES 1.1 MG/ML INJECTION IN NS 10 ML - SODIUM CHLORIDE 0.9 % (FLUSH) INJECTION SYRINGE - SPIROMETRY - BASELINE AND POST DILATOR 4. Pneumothorax, unspecified type - ICD9: 512.89, ICD10: J93.9 See above, secondary to his severe COPD Antwan Buchanan DO Return if no improvement. Follow up with Antwan Buchanan DO. To ER if develops chest pain, shortness of breath Discussed risks, benefits, alternatives, and potential side effects of medications. Patient/Guardian expressed understanding and agreed with the plan. See patient instructions. Antwan Buchanan DO [address] [place] [address] documented in this encounterK[facility]11-28-[facility]23 [facility] Hospital course Narrative* Glen Mike MD - 02/08/2023 3:00 PM EST Images from the original note were not included. Hospitalist Discharge Summary Luis Steele : 1970 Admit date: 01/26/2023 Discharge date: 02/08/2023 Admitting Physician: Glen Mike MD Primary Care Physician: Antwan Buchanan Visit Status: Inpatient admission Code Status: Prior Discharge diagnoses: # Large left-sided pneumothorax s/p chest tube, improved/resolved # Acute on chronic hypoxemic respiratory failure 2/2 large left pneumothorax, improved - on 5 L NC at baseline # Hx of severe COPD with centrilobular emphysema # Hx of prior trach in setting of prolonged respiratory failure 2/2 MRSA PNA/ARDS (2014, since decannulated) # Hypokalemia # Dysphagia # Hx of gastroparesis # Hx of TIA # Anemia # Anxiety/depression # prior tobacco abuse Past Medical History: Diagnosis Date Anxiety COPD (chronic obstructive pulmonary disease) (HCC) Diverticulitis Pancreatitis TIA (transient ischemic attack) Pt stated in and in 2014 Procedures: - Intubated 01/26, extubated 01/28 - Large bore chest tube placed (01/26) - Right radial arterial line placement (01/29/23) - Re-intubated 01/29, extubated 02/03 Hospital Course: Luis Steele is a 52 y.o. male who presented to [place] ED on 01/26/23 for severe respiratory distress and hypoxia. CXR showed large left-sided pneumothorax. Patient was intubated in ED and then left-sided chest tube placed. Patient was then admitted/transferred to [facility] ICU. Chest tube was inadvertently dislodged on 01/27, but CXR stable. Patient was extubated to [facility] on 01/28. However, on 01/29,patient with worsening subcutaneous emphysema to neck/shoulders as well as worsening hypoxemia, so he was re-intubated. STAT CT chest (01/29) showed stable small left-sided pneumothorax (approximately 15 percent), pneumomediastinum, and bilateral neck and chest subcutaneous emphysema. There was concern for pleuro-subcutaneous fistula air tracking into it, so urgent CT surgery consult obtained anddecision was made to transfer patient to [facility] MICU with further surgical intervention for potential airway injury to be considered after transfer to [facility]. At [facility], subcutaneous emphysema noted to have stabilized and was not prohibitive to eye-opening at the time, so CT surgery did not feel there was much utility to desir slots with wound VAC and advised to monitor for worsening emphysema and pneumothorax. CXR improved. Patient extubated to 6 L NC on 02/03. Patient stabilized in ICU and transferred out to medical floor overnight on 02/07. Pulmonology evaluated patient on medical floor and noted patient back on baseline 5 L NC and doing well. Patient remained clinically stable and requested to bedischarged home. Patient is discharged in improved and stable condition. See discharge diagnoses list above and medication adjustments below in med rec. Consults: IP CONSULT TO DIETITIAN IP CONSULT TO DIETITIAN IP CONSULT TO DIETITIAN IP CONSULT TO CARDIOTHORACIC SURGERY IP CONSULT TO GENERAL SURGERY IP CONSULT TO PULMONOLOGY Discharge Instructions: Diet: Activity: as tolerated Recommended Outpatient Tests: Disposition: Patient discharged in stable condition to Home. Greater than 31 minutes spent discharging the patient and coming up with patient discharge plan. Vitals: BP 123/83 (BP Location: Right arm, Patient Position: Lying) Pulse 106 Temp 36.3 C (97.4F) (Oral) Resp 20 Ht 5' 10 (1.778 m) Wt 178 lb 2.1 oz (80.8 kg) SpO2 94% PF 60 L/min BMI 25.56 kg/m Pulse Ox: SpO2 Av.5 % Min: 94 % Max: 97 % Supplemental O2: O2 Flow Rate (L/min): 5 L/min Physical Exam Constitutional: General: He is not in acute distress. Appearance: He is not toxic-appearing. HENT: Head: Normocephalic. Eyes: Extraocular Movements: Extraocular movements intact. Cardiovascular: Rate and Rhythm: Normal rate. Pulmonary: Effort: Pulmonary effort is normal. No respiratory distress. Abdominal: General: Bowel sounds are normal. Palpations: Abdomen is soft. Tenderness: There is no abdominal tenderness. Musculoskeletal: General: Normal range of motion. Skin: General: Skin is warm and dry. Neurological: Mental Status: He is alert and oriented to person, place, and time. Psychiatric: Thought Content: Thought content normal. LABS: Recent Labs 02/06/23 0324 02/07/23 0256 02/08/23 0433 NA 135 136 137 K 3.3* 3.0* 3.3* CL 97* 96* 100 CO2 29 33* 28 BUN 11 6* 7* CREATININE 0.66 0.64* 0.68 GLUCOSE 95 119* 107* CALCIUM 8.6 8.5 9.2 Recent Labs 02/06/23 0324 02/07/23 0256 02/08/23 0433 WBC 10.0 9.5 9.6 RBC 3.83* 4.00* 4.03* HGB 9.8* 10.4* 10.2* HCT 31.3* 32.9* 33.1* MCV 81.7 82.1 82.0 MCH 25.6* 26.0 25.3* MCHC 31.4* 31.6* 30.9* RDW 16.6* 16.4* 16.4* PLT 345 324 378 MPV 7.9 7.4 7.6 Discharge Medications: Medication List CHANGE how you take these medications Advair HFA 230-21 MCG/ACT inhaler Generic drug: fluticasone-salmeterol Inhale 2 puffs in the morning and 2 puffs in the evening. What changed: when to take this * albuterol (2.5 MG/3ML) 0.083% nebulizer solution Take 3 mL (2.5 mg) by nebulization every 6 hours as needed for wheezing. What changed: Another medication with the same name was removed. Continue taking this medication, and follow the directions you see here. * Ventolin HFA 108 (90 Base) MCG/ACT inhaler Generic drug: albuterol Inhale 2 puffs every 4 hours as needed for wheezing. What changed: Another medication with the same name was removed. Continue taking this medication, and follow the directions you see here. * This list has 2 medication(s) that are the same as other medications prescribed for you. Read thedirections carefully, and ask your doctor or other care provider to review them with you. CONTINUE taking these medications buPROPion XL 300 MG 24 hr tablet Commonly known as: Wellbutrin XL ferrous sulfate 325 (65 Fe) MG tablet ipratropium-albuterol 0.5-2.5 mg/3 mL nebulizer solution Commonly known as: Duo-Neb pantoprazole 40 MG EC tablet Commonly known as: ProtoNix TAKE ONE TABLET BY MOUTH EVERY MORNING BEFORE BREAKFAST sertraline 100 MG tablet Commonly known as: Zoloft Take 1 tablet (100 mg) by mouth in the morning. Where to Get Your Medications These medications were sent to [facility] [address] [address] Hours: Tuesday to Tuesday 10 am to 6 pm Advair HFA 230-21 MCG/ACT inhaler sertraline 100 MG tablet Ventolin HFA 108 (90 Base) MCG/ACT inhaler Recommended Follow-up: Antwan Buchanan [address] [facility] [address] Complexity of Follow up: [] Moderate Complexity: follow up within 7-14 calendar days (49621) [x] Severe Complexity: follow up within 7 calendar days (82994) Follow up Testing, Pending results or Referrals at Transitional Care Visit: [x] yes [] no Instructions to MA: Please call patient on day after discharge (must document patient contacted within 2 business days of discharge). Follow up questions for MA: 1. Did you get medications filled and taking them as instructed from discharge? 2. Are you following your discharge instructions from your hospital stay? 3. Please confirm patient is scheduled for a follow up appointment within the above time frame. Signed: Glen Mike MD Division of Hospitalist Medicine Inpatient Medical Services/[facility] 02/08/2023, 9:28 PM documented in this [facility]11-28-2023 Miscellaneous Notes* Care Coordination - Unknown Case Management - 02/08/2023 1:41 PM EST Patient Choice Patient Name: LUIS STEELE Date of : 1970 All Providers Sent Referral Name: Jennifer Velazco Bogart Address: [address] [place] [address] Name: Physician [facility] Address: [address], [facility] [address] [address] Name: [facility] ([facility] Phone: [phone] Address: [address] [place] [address] [address] [place] [address] Name: [facility] Phone: [phone] Address: [address] [place] [address] Name: [facility] Phone: [phone] Address: [address] [place] [place] [address] Name: [facility] Address: [address] [facility] [address] [place] [address] Name: [facility] Phone: [phone] Address: [address] [place] [address] Name: [facility] Phone: [phone] Address: [address] [place] [address] Name: [facility] Address: [address], [address] [place] [address] Name: [facility] Phone: [phone] Address: [address] [place] [address] Name: [facility] Phone: [phone] Address: [address] [facility] [place] [address] Name: [facility] Address: [address] [place] [address] * Home Care - Joie Allison RN - 02/08/2023 1:26 PM EST Educated patient on Home Care and services available. Patient is agreeable to receiving home care services at this time. Patient was given choice of home care agencies available in the area and is agreeable to having referrals made with agencies that staff the patients service location. Referrals have been sent via [facility]. Liaison to discuss available agencies to accept case with patient upon receiving responses. * Care Coordination - Meme Rocha RN - 02/08/2023 1:09 PM EST Images from the original note were not included. Care Management Progress Note Pt transferred from T2 for continued care. Pt on baseline oxygen at 5-6L. PT eval yesterday recommending inpt rehab- pt with contact guard assist ambulating 15 ft and 50ft during assessment. Pt does not want placement. Discussed discharge plan with attending- pt to go to son's house. [place] JAMISON updated and following for services. Discharge planned for today. Discharge Milestones and Delays Expected Date/Time: 02/09/[address] discharge order Complete med reconciliation Case mgmt discharge readiness Clinical Stability Diagnsotic Workup Expected Discharge History Expected Date/Time Set By Reviewed At 02/09/2023 Meme Rocha RN 02/08/2023 8:15 AM oxygen, poss placement 02/09/2023 Nayana Barcenas RN 02/07/2023 7:38 AM O2 requirements, awaiting OT eval, 02/09/2023 Nayana Barcenas RN 02/07/2023 7:37 AM O2 requirements 02/07/2023 Nayana Barcenas RN 02/04/2023 7:44 AM 02/07/2023 Nayana Barcenas RN 02/02/2023 12:48 PM 02/07/2023 Nayana Barcenas RN 02/02/2023 7:46 AM intubated/sedated, 02/07/2023 Nayana Barcenas RN 02/01/2023 7:59 AM 02/07/2023 Maria Garay RN 01/31/2023 9:41 AM 01/31/2023 MACI Malhotra 01/28/2023 9:56 AM 01/31/2023 MACI Malhotra 01/27/2023 9:34 AM 01/29/2023 Ramon Cunha MD 01/26/2023 7:59 PM 01/29/2023 Ramon Cunha MD 01/26/2023 4:30 PM Length of Stay (Days): 13 GMLOS: No GMLOS Documented * Care Coordination - KARSTNE Gutiérrez CNP - 02/07/2023 2:27 PM EST ICU Transfer Checklist Transfer Med Reconciliation (resume home meds if able, convert to PO if able) Complete Antibiotics (name, indication, duration, convert to PO if able) None Steroid (indication, duration, convert to PO if able) None Anticipated Zeba Medications (ICU initiated) or Dose Changes and Indication No Permanently Discontinued Home Medications and Reason for medication contraindication No Emerson Catheter (please remove if able. Note: place DC order) No Central Line (please remove if able. Note: place DC order) No Transfer Discussed with: Dr. Nuha Oropeza [facility] and Dr. Mariluz Maynard ICU If additional questions for ICU team within 24 hours of ICU transfer, SecureChat for clarifications. * Care Coordination - Nayana Barcenas RN - 02/07/2023 11:23 AM EST Images from the original note were not included. Care Management Progress Note Chart reviewed. Patient remains on STN ICU for increase emphysema and neck swelling s/p emergent re-intubation 01/29. IVMF. 6LNC. PT-IPR. Discharge Planning: TBD. TCC spoke with patient at bedside regarding PT recs. Patient became very frustrated and stated thatthey told me I would only need a few days of rehabilitation. I explained the differences between rehab hospitals and SNF. Patient states that he will need to speak with his son. Discharge Milestones and Delays Expected Date/Time: 02/09/[address] discharge order Complete med reconciliation Case mgmt discharge readiness Clinical Stability Diagnsotic Workup Expected Discharge History Expected Date/Time Set By Reviewed At 02/09/2023 Nayana Barcenas RN 02/07/2023 7:38 AM O2 requirements, awaiting OT eval, 02/09/2023 Nayana Barcenas RN 02/07/2023 7:37 AM O2 requirements 02/07/2023 Nayana Barcenas RN 02/04/2023 7:44 AM 02/07/2023 Nayana Barcenas RN 02/02/2023 12:48 PM 02/07/2023 Nayana Barcenas RN 02/02/2023 7:46 AM intubated/sedated, 02/07/2023 Nayana Barcenas RN 02/01/2023 7:59 AM 02/07/2023 Maria Garay RN 01/31/2023 9:41 AM 01/31/2023 MACI Malhotra 01/28/2023 9:56 AM 01/31/2023 MACI Malhotra 01/27/2023 9:34 AM 01/29/2023 Ramon Cunha MD 01/26/2023 7:59 PM 01/29/2023 Ramon Cunha MD 01/26/2023 4:30 PM Length of Stay (Days): 12 GMLOS: No GMLOS Documented * Care Coordination - Nayana Barcenas RN - 02/07/2023 7:32 AM EST TCC called PTOT for OT to see today for eval. * Care Coordination - Nayana Barcenas RN - 02/04/2023 11:44 AM EST Images from the original note were not included. Care Management Progress Note Chart reviewed. Patient remains on STN ICU for increase emphysema and neck swelling s/p emergent re-intubation 01/29. Extubated 02/02. CT/Gen Surg - ilieus. NGT - NPO. KUB ordered. IVABX. Discharge Planning: Home with [facility]. Awaiting PT/OT evals when patient appropriate and medical clearance. Will continue to follow with [facility]. Discharge Milestones and Delays Expected Date/Time: 02/07/[address] discharge order Complete med reconciliation Case mgmt discharge readiness Clinical Stability Diagnsotic Workup Expected Discharge History Expected Date/Time Set By Reviewed At 02/07/2023 Nayana Barcenas RN 02/04/2023 7:44 AM 02/07/2023 Nayana Barcenas RN 02/02/2023 12:48 PM 02/07/2023 Nayana Barcenas RN 02/02/2023 7:46 AM intubated/sedated, 02/07/2023 Nayana Barcenas RN 02/01/2023 7:59 AM 02/07/2023 Maria Garay RN 01/31/2023 9:41 AM 01/31/2023 MACI Malhotra 01/28/2023 9:56 AM 01/31/2023 MACI Malhotra 01/27/2023 9:34 AM 01/29/2023 Ramon Cunha MD 01/26/2023 7:59 PM 01/29/2023 Ramon Cunha MD 01/26/2023 4:30 PM Length of Stay (Days): 9 GMLOS: No GMLOS Documented * Care Coordination - Nayana Barcenas RN - 02/02/2023 12:49 PM EST Images from the original note were not included. Care Management Progress Note Chart reviewed. Patient transferred to T2 for increase emphysema and neck swelling s/p emergent re-intubation 01/29. Potential for extubation today. Discharge Planning: Home with [facility] pending PTOT evals, medical progress and clearance. Will continue to follow with [facility]. Discharge Milestones and Delays Expected Date/Time: 02/07/[address] discharge order Complete med reconciliation Case mgmt discharge readiness Clinical Stability Diagnsotic Workup Expected Discharge History Expected Date/Time Set By Reviewed At 02/07/2023 Nayana Barcenas RN 02/02/2023 12:48 PM 02/07/2023 Nayana Barcenas RN 02/02/2023 7:46 AM intubated/sedated, 02/07/2023 Nayana Barcenas RN 02/01/2023 7:59 AM 02/07/2023 Maria Garay RN 01/31/2023 9:41 AM 01/31/2023 MACI Malhotra 01/28/2023 9:56 AM 01/31/2023 MACI Malhotra 01/27/2023 9:34 AM 01/29/2023 Ramon Cunha MD 01/26/2023 7:59 PM 01/29/2023 Ramon Cunha MD 01/26/2023 4:30 PM Length of Stay (Days): 7 GMLOS: No GMLOS Documented * Significant Event - Celeste Porter RN - 02/02/2023 11:29 AM EST Pt with emesis x1. Prn Zofran IV pulled by another RN and hygiene completed. Team to bedside for rounds shortly after - had previously notified staff of anxiety and had given a 1x dose of hydroxizinevia OG tube. Lorazepam IV ordered and given. Pt with another bout of emesis in front of physicians - stat KUB ordered, verbal orders for OG to be placed on suction before extubation. Notified risk management intern of residual of about 450ml suctioned out of OG. Xr tech to be by shortly. * Significant Event - Elmo Hernandez RCP - 02/02/2023 6:03 AM EST 02/02/23 0406 Spontaneous Awakening Trial Safety Screen Spontaneous Awakening Trial (SAT) Proceed with SAT - No exclusion criteria met Spontaneous Awakening Trial (SAT) Outcome SAT pass Wean Screen SpO2>/=88% Yes FiO2</=50% Yes PEEP </=8cmH2O Yes HR <140 BPM Yes RR </= 35 breaths/min Yes MAP >/= 65mmHg Yes Arterial pH >7.30 and <7.50 Yes Safety Screen Spontaneous Breathing Trial (SBT) Proceed with SBT - No exclusion criteria met * Significant Event - Crissy Pimentel RCP - 02/01/2023 9:07 AM EST 02/01/23 0857 Patient Parameters Heart Rate 80 Resp (!) 10 SpO2 94 % Settings Vent Mode SPONT Mandatory Type VC Spontaneous Type TC IP Set (cm H2O) 0 cm H2O FiO2 (%) 50 % PEEP/CPAP (cm H2O) 8 cm H20 Sensitivity 3 Expiratory Sensitivity (%) 25 % % Support 0 % Readings PIP Observed (cm H2O) 17 cm H2O MAP (cm H2O) 9.7 Resp Rate Observed 11 Vt (observed, mL) 753 mL Minute Ventilation (L/min) 7.33 L/min I:E Ratio 1:4.80 Plateau Pressure (cm H2O) 0 cm H2O Dynamic Compliance (L/cm H2O) 75 L/cm H2O Static Compliance (L/cm H2O) 0 Airway Resistance 18 Total PEEP (cm H2O) 0 cm H2O Alarms High RR Alarm 40 breaths per minute Insp Pressure High (cm H2O) 45 cm H2O MV High (L/min) 20 L/min MV Low (L/min) 1.3 L/min Vt High (ellis) (mL) 1100 mL Vt Low (ellis) (mL) 150 mL Vt High (spont) (mL) 1100 mL Vt Low (spont) (mL) 150 mL High VTi 900 Apnea Interval (sec) 20 seconds Spontaneous Breathing Trial Weaning Start Time 0827 Weaning Tidal Volume 753 mL Weaning Respiratory Rate 11 Spontaneous Minute Volume (MV) 7.33 Total RSBI 14 Weaning Tolerance Good Weaning Stop Time 0857 Weaning Duration (min) 30 Spontaneous Breathing Trial (SBT) Outcome SBT Passed Pt tolerated 30 mins on TC. His RR was low, but didn't go below 8 * Significant Event - Monica Peterson - 02/01/2023 8:27 AM EST SBT started 02/01/23 0823 Patient Parameters Heart Rate 83 Resp (!) 8 SpO2 93 % Settings Vent Mode SPONT Mandatory Type VC Spontaneous Type TC Resp Rate (Set) 20 Vt (Set, mL) 400 mL IP Set (cm H2O) 0 cm H2O FiO2 (%) 50 % PEEP/CPAP (cm H2O) 8 cm H20 Peak Flow 44 L/min Sensitivity 3 Expiratory Sensitivity (%) 25 % % Support 0 % Readings PIP Observed (cm H2O) 9.9 cm H2O MAP (cm H2O) 12 Resp Rate Observed 16 Vt (observed, mL) 415 mL Minute Ventilation (L/min) 6.61 L/min I:E Ratio 1:5.50 Plateau Pressure (cm H2O) 0 cm H2O Dynamic Compliance (L/cm H2O) 75 L/cm H2O Static Compliance (L/cm H2O) 0 Airway Resistance 18 Total PEEP (cm H2O) 0 cm H2O Alarms High RR Alarm 40 breaths per minute Insp Pressure High (cm H2O) 45 cm H2O MV High (L/min) 20 L/min MV Low (L/min) 1.3 L/min Vt High (ellis) (mL) 1100 mL Vt Low (ellis) (mL) 150 mL Vt High (spont) (mL) 1100 mL Vt Low (spont) (mL) 150 mL High VTi 900 Apnea Interval (sec) 20 seconds * Significant Event - Marlene Sandoval RRT - 02/01/2023 3:30 AM EST 02/01/23 0328 Wean Screen SpO2>/=88% Yes FiO2</=50% Yes PEEP </=8cmH2O Yes HR <140 BPM Yes RR </= 35 breaths/min Yes MAP >/= 65mmHg Yes Arterial pH >7.30 and <7.50 Yes Safety Screen Spontaneous Breathing Trial (SBT) Proceed with SBT - No exclusion criteria met * Significant Event - Ankita Serra RCP - 01/31/2023 5:14 PM EST 01/31/23 1712 Patient Parameters Ventilator On Yes Heart Rate 77 Resp 20 SpO2 90 % Settings Vent Mode SPONT Mandatory Type VC Spontaneous Type TC Resp Rate (Set) 20 Vt (Set, mL) 400 mL IP Set (cm H2O) 0 cm H2O FiO2 (%) 50 % PEEP/CPAP (cm H2O) 5 cm H20 Peak Flow 44 L/min Sensitivity 3 Expiratory Sensitivity (%) 25 % % Support 0 % Readings PIP Observed (cm H2O) 20 cm H2O MAP (cm H2O) 13 Resp Rate Observed 25 Vt (observed, mL) 0 mL Minute Ventilation (L/min) 7.09 L/min I:E Ratio 4.90:1 Plateau Pressure (cm H2O) 0 cm H2O Dynamic Compliance (L/cm H2O) 63 L/cm H2O Static Compliance (L/cm H2O) 0 Airway Resistance 22 Total PEEP (cm H2O) 0 cm H2O Alarms High RR Alarm 40 breaths per minute Insp Pressure High (cm H2O) 45 cm H2O MV High (L/min) 20 L/min MV Low (L/min) 1.3 L/min Vt High (ellis) (mL) 1100 mL Vt Low (ellis) (mL) 150 mL Vt High (spont) (mL) 1100 mL Vt Low (spont) (mL) 150 mL High VTi 900 Apnea Interval (sec) 20 seconds IHI Ventilator Associated Pneumonia Bundle Head of Bed Elevated HOB 30 Spontaneous Breathing Trial Weaning Start Time 1712 Weaning Tidal Volume 539 mL Weaning Respiratory Rate 7 Spontaneous Minute Volume (MV) 3.9 Negative Inspiratory Force (NIF) -37 Total RSBI 11 Weaning Tolerance Poor Weaning Stop Time 1714 Weaning Duration (min) 2 Spontaneous Breathing Trial (SBT) Outcome SpO2 less than goal - SBT failure (Sp02 84%) RR less than 8 Sp02 84% * Care Coordination - Maria Garay RN - 01/31/2023 11:58 AM EST Images from the original note were not included. Care Management Progress Note Patient transferred [facility] ICU with increasing emphysema and compromise of airway requiring intubation. Remains intubated, sedated, CTS signed off-no need for intervention or chest tube, and willneed PT/OT evals once appropriate. Patient from home alone, has rollator and home O2 (3L NC baseline) and agreeable to home care. TCC following. Discharge Milestones and Delays Expected Date/Time: 02/07/[address] discharge order Complete med reconciliation Case mgmt discharge readiness Clinical Stability Diagnsotic Workup Expected Discharge History Expected Date/Time Set By Reviewed At 02/07/2023 Maria Garay RN 01/31/2023 9:41 AM 01/31/2023 MACI Malhotra 01/28/2023 9:56 AM 01/31/2023 MACI Malhotra 01/27/2023 9:34 AM 01/29/2023 Ramon Cunha MD 01/26/2023 7:59 PM 01/29/2023 Ramon Cunha MD 01/26/2023 4:30 PM Length of Stay (Days): 5 GMLOS: No GMLOS Documented * Significant Event - DAYAMI TARANGO - 01/30/2023 3:41 AM EST 01/30/23 0339 Wean Screen SpO2>/=88% Yes FiO2</=50% No PEEP </=8cmH2O Yes HR <140 BPM Yes RR </= 35 breaths/min Yes MAP >/= 65mmHg Yes Arterial pH >7.30 and <7.50 Yes Safety Screen Spontaneous Breathing Trial (SBT) FiO2 is greater than 50% * Significant Event - Joseph Trejo MD - 01/29/2023 7:47 PM EST Throughout the day today, the patient had increasing subcutaneous emphysema in the neck and shoulder regions. Previous left chest tube site confirmed to be dressed properly with Xeroform dressing. Chest x-ray from this morning was without recurrence of pneumothorax but showed increasing subcutaneous emphysema. This progress rapidly this evening leading to severe neck swelling and airway compromise. The patient was emergently intubated -- see separate procedure note for details of the intubation. Post intubation, no active air leak noted. The patient getting set tidal volumes on the ventilator. Stat CT neck and chest were performed. CT chest shows residual stable small anterior left basal pne umothorax. This is stable compared to CT chest from 01/27/2023. 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 Called urgent consult to Dr. Wong from CT surgery. She agreed that at least a desir slit surgery is indicated to treat the subcutaneous emphysema. Further surgical intervention for potential airway injury to be considered after transfer to [facility]. Dr. Gerald Moncada of MICU at [facility] accepted the patient with Dr. Wong to consult. * Significant Event - Francisco Javier Alvarado MD - 01/29/2023 2:44 PM EST Call placed to [facility] transfer line Information given Need to be out of ICU and stable for 24 hours for floor transfer, wont be in chica euntil tomorrow morning. Still waiting to conference with physician. Family at bedside updated. * Significant Event - Zbigniew Mike MD - 01/29/2023 8:11 AM EST Accepted ICU transfer * Care Plan - Maira Gustafson RN - 01/28/2023 9:26 PM EST Problem: Safety - Non-violent/Interference with Medical Treatment Restraint Goal: Remains free of injury from restraints (Restraint for Interference with Scalp Treatment Specialist) Outcome: Progressing Goal: Free from restraint(s) (Restraint for Interference with Scalp Treatment Specialist) Outcome: Progressing Problem: Knowledge Deficit Goal: Patient/family/caregiver demonstrates understanding of disease process, treatment plan, medications, and discharge instructions Outcome: Progressing Problem: Potential for Compromised Skin Integrity Goal: Skin Integrity is Maintained or Improved Outcome: Progressing Goal: Nutritional status is improving Outcome: Progressing Problem: Urinary Incontinence Goal: Perineal skin integrity is maintained or improved Outcome: Progressing Problem: Problem Interventions Goal: Assess Nutritional Intake Outcome: Progressing Goal: Promote nutritional intake Outcome: Progressing Goal: Nutrition Support Outcome: Progressing The patient is Moderately Stable - Low risk of patient condition declining or worsening The patient's goals for the shift include The clinical goals for the shift include Rest Over the shift, the patient did not make progress toward the following goals. Barriers to progression include . Recommendations to address these barriers include . * Home Care - Eveline Blanton RN - 01/28/2023 2:44 PM EST Pharmacy Intern following case for Discharge Needs. DME order for shower chair placed and [facility] notified. Waiting for PT/OT evals. * Care Coordination - MACI Malhotra - 01/28/2023 2:06 PM EST S/W, resource and referral TCC referred to see if patient has Waiver Services or would qualify for Waiver Service at home. I did call [facility], spoke with Resource Center who did look the patient up. The [facility] [place] [facility] [place] ( not a MyCare plan) they do ot show the patient active with any Waiver Servicesat this time. I did make a referral to [facility] for assessment for Waiver. I did place this referral information on patient AVS. 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 representative/caregiver as indicated: Yes Confirmation of Payer with patient/family: Yes [facility] [place]: No Confirmation of Primary Care Physician: Confirmed PCP Name: ANTWAN CRENSHAWRISON Seen in last 2 years?: Yes Primary Caregiver: Self If assistance needed, confirmed caregiver ready, willing and able to care for patient at discharge:Yes Confirmed with: PER PATIENT HIS SON Living Arrangements Current Residence: Apartment Number of Floors 1 Number of Entry Steps: (LEVEL ENTRY.) Bed/Bath Levels: Both first floor Facility: Facility Name: [facility] Plan to Return: Yes Lives with: Alone Support Systems: Children Activities of Daily Living Ambulation: Independent (ROLLATOR) Bathing/Dressing: Independent Elimination/Continence/Toileting: Independent Feeding: Independent Who Assists with Activities of Daily Living: Instrumental Activities of Daily Living Prescription Coverage: Yes Pharmacy Used: [facility] [place] Medication Management: Independent Transportation/Shopping: Independent Transportation Mode: Car Needs Assistance with Transportation at Discharge: No (SON) Meal Preparation: Independent Laundry/Cleaning: Independent Finances/Bill Paying: Independent Communication: Independent Types of Care Services/Equipment Utilized Care Services: Dialysis Type: NA Durable Medical Equipment: Rollator, Nebulizer, Oxygen (Continuous or prn) Oxygen Flow Rate: 3 LITERS CONT Patient's Goal/Discharge Plan Patient expects to be discharged to: HOME WITH [facility] Discharge Planning Actions: Continue to follow Patient's Choice Rights and [employer] and Collaborative Relationships Disclosed as Indicated for Post-Acute Care: Interdisciplinary Team Engagement: Home Health Care Social Work Referral for: Additional Information: Extubated this afternoon. Met with patient at bedside. Discharge preparation checklist reviewed with patient. Lives at home alone. Wears oxygen cont at 3 liters. Has nebulizer with medications. Uses rollator at home. Is independent in his adls. Does report difficulties with bathing and making it tothe BR due to SOB. Is agreeable to [facility]. finishing trimmer updated and is following. Did update [facility] that patient will need shower chair upon discharge. Refused need for BSC. Will need pt/ot evalsonce medically stable. Also states has difficulties performing household tasks. Denies having [facility] foster care case manager. Did request social work instructor check to determine if patient qualifies or has any type of waiver services. Tentative discharge plan is home with home care when medically stable. Will need to monitor for additional oxygen requirements and obtain order for shower chair. . Aminata Arana RN * Care Coordination - Aminata Araan RN - 01/28/2023 8:23 AM EST Left chest tube removed overnight and dsd dressing in place. Possible sbt today. .. * Significant Event - Pretty Kelley RCP - 01/28/2023 4:17 AM EST 01/28/23 0415 Wean Screen SpO2>/=88% Yes FiO2</=50% Yes PEEP </=8cmH2O Yes HR <140 BPM Yes RR </= 35 breaths/min Yes MAP >/= 65mmHg Yes Arterial pH >7.30 and <7.50 Yes Safety Screen Spontaneous Breathing Trial (SBT) Proceed with SBT - No exclusion criteria met * Significant Event - KARSTEN Albarado CNP - 01/28/2023 12:56 AM EST Called to patients bedside d/t large leak in left chest tube. Repeat chest xray showed that chest tube was not not longer in place and basically out. No pneumothorax noted. Left chest tube removed and DSD dressing placed. Patient ventilating and getting volumes. Will repeat chest xray at 0500 * Care Coordination - Aminata Arana RN - 01/27/2023 1:12 PM EST Admitted to ICU with left sided pneumothorax. Intubated with chest tube. Has history of severe copdand requires oxygen at 5 liters cont. Blood cultures x 2 obtained and pending, iv antibiotics, iv steroids, aerosols, daily labs, , bs ac and has with ss coverage, [place] cath. Case management will continue to follow and assist with discharge planning needs. . * Significant Event - Pretty Kelley RCP - 01/27/2023 4:16 AM EST 01/27/23 0402 Wean Screen SpO2>/=88% Yes FiO2</=50% No PEEP </=8cmH2O Yes HR <140 BPM Yes RR </= 35 breaths/min Yes MAP >/= 65mmHg Yes Arterial pH >7.30 and <7.50 Yes Safety Screen Spontaneous Breathing Trial (SBT) FiO2 is greater than 50% documented in this [facility]11-28-2023 History of Present illness Narrative* Christy Siddiqi CCC-[employer] SALES REPRESENTATIVE - 02/08/2023 10:59 AM EST Images from the original note were not included. Speech-Language Pathology SPEECH LANGUAGE PATHOLOGY [facility] Dysphagia Treatment Note Patient Name: Luis Steele Evaluation Date: 02/08/2023 Date of : 1970 Admission Date: 01/26/2023 2:45 PM Age: 52 y.o. Room/Bed: N4-454/N4-454 A Subjective Patient alert and cooperative. Seen upright in bed. Answers all basic questions with clear, strong vocal quality. Follows all basic commands. No visitors at bedside. Patient agreeable to limited PO trials. Current Diet: Dietary Orders (From admission, onward) Start Ordered 02/06/23 1220 Adult diet Easy to Chew; No Drinking Straws Diet effective now Comments: NO STRAWS. Single small sips of thin liquids. Single small drinks, single small bites. Double swallow. Throat clear and re-swallow every few bites Question Answer Comment Diet type Easy to Chew Other restriction(s): No Drinking Straws 02/06/23 1220 Aspiration Precautions: - Upright positioning for all PO intake - No straws - Swallow x 2 per bolus - Small single sips - Frequent throat clear/re-swallow Oxygen: Oxygen Therapy: Supplemental oxygen O2 Delivery Method: Nasal cannula O2 Flow Rate (L/min): 5 L/min Pain: RN managing pain. PPE Worn: gloves Objective & Assessment Dysphagia Treatment # of Activities: 1 Dysphagia Activity 1: Assess diet tolerance Patient accepted trials of regular solids and thin liquids. Trials met with slightly prolonged but functional mastication, complete oral clearance after liquid wash, and no overt s/sx of aspiration or penetration. Patient requiring reminders to clear throat and re-swallow every couple bites. No straws present in room. Patient performed effortful swallows x 10 with liquids. Plan & Recommendations Plan: Continue acute [employer] SALES REPRESENTATIVE therapy per initial plan of care and established goals. Recommend Regular solids and Thin liquids and meds as tolerated and the following precautions: - Upright positioning for all PO intake - No straws - Swallow x 2 per bolus - Small single sips - Frequent throat clear/re-swallow D/C Recommendations: No follow up therapy recommended post discharge Education Education Given: swallowing strategies, diet recommendations Given To: patient and RN Response: verbalizes understanding Goals Patient Stated Goal: To listen to music/watch videos Encounter Problems Encounter Problems (Active) Swallowing Patient will demonstrate safe swallowing Intervention/techniques (Progressing) Start: 01/28/23 Expected End: 02/11/23 Patient will tolerate recommended food and liquid consistencies without clinical signs and symptomsof aspirations (Progressing) Start: 01/28/23 Expected End: 02/11/23 Patient will participate in instrumental assessment of swallowing as appropriate (Completed) Start: 01/28/23 Expected End: 02/11/23 Resolved: 02/07/23 Therapy Time [employer] SALES REPRESENTATIVE Individual Minutes Time In: 1029 Time Out: 1039 Minutes: 10 Christy Siddiqi CCC-[employer] SALES REPRESENTATIVE * Maikel Brian, PT - 02/07/2023 10:47 AM EST Images from the original note were not included. PHYSICAL THERAPY [facility] Treatment Note Name/MRN: Luis Steele ([id number]) Date of : 1970 Age: 52 y.o. Room/Bed: T2-201/T2201 A Discharge Recommendation: Inpatient Rehab and Continue to assess pending progress Equipment Needed: TBD at next level of care Prior Level of Function ADL Assistance: Independent Ambulation Assistance: Independent Transfer Assistance: Independent Assessment Pt able to progress OOB mobility this date. Pt ambulated 15', 50' with FWW CGA. Pt completed bed mobility with SBA and transfers with CGA. Wears 5-6 L O2 at baseline. SpO2 dropping to 90% after completion of bed mobility. PT continues to rec IPR at this time, but pt may progress to home with assistand HH PT. Subjective Pt supine, agreeable to therapy. Reports that he is fairly sedentary at home. Pain: Pt denies any current pain. Medical Precautions: No active isolations Proper PPE donned/doffed in accordance with facility standards. Fall Risk: Hensley Fall Risk Score: 35 (Medium Risk) Precautions/Restrictions: Lines/Drains/Airways: PIV, Tele, NC 02 Overall Cognitive Status: WFL Overall Orientation Status: Oriented x4 Family/Caregiver Present: none Objective Ambulation Ambulation 1 Assistive device(s) used: front wheeled walker Assist level: Contact Guard Distance (ft): 15, 50 Quality of gait: No gait deviations Transfers/Mobility Sit to stand: Contact Guard Stand to sit: Contact Guard Completed from EOB x1, recliner x1 Device(s) used: front wheeled walker Bed Mobility Supine to sit: SBA Balance: . Posture: fair Sitting - Static: Modified Independent Sitting - Dynamic: Supervision Standing - Static: Contact Guard Standing - Dynamic: Contact Guard Plan Continue acute PT per plan of care. Safety/Education Safety Safety Devices in place: call light within reach, left in bed, gait belt, patient at risk for falls, and nurse notified Restraints: No Education Education Given To: patient Education Provided: Discharge Recommendations Education Method: Verbal Barriers to Learning: Education Outcome: Outcome Measures AM-PAC AM-PAC Inpatient Mobility Raw Score (No Stairs) : 16 JH-HLM JH-HLM Score: Walked 25 ft or more (i.e. walked outside of room) Goals Patient Stated Goal: To get stronger Encounter Problems Encounter Problems (Active) Balance Patient will maintain dynamic standing balance for 5 minutes with modified independence in order todemonstrate decreased risk of falling. (Progressing) Start: 02/04/23 Expected End: 02/18/23 Mobility Patient will ambulate 50 feet with modified independence and least restrictive device in order to improve safety and independence with mobility. (Progressing) Start: 02/04/23 Expected End: 02/18/23 Transfers Patient will perform bed mobility with modified independence in order to improve independence and prepare for out of bed mobility. (Progressing) Start: 02/04/23 Expected End: 02/18/23 Patient will complete functional transfer with least restrictive device with modified independence in order to prepare for ambulation. (Progressing) Start: 02/04/23 Expected End: 02/18/23 Therapy Time Individual Co-treatment Time In 1002 Time Out 1018 Minutes 16 Timed Code Treatment Minutes: 16 Minutes (1xgait) Maikel Brian PT * Sirena Fragoso - 02/07/2023 10:30 AM EST Images from the original note were not included. OCCUPATIONAL THERAPY [facility] Initial Evaluation Name/MRN: Luis Steele ([id number]) Evaluation Date: 02/07/2023 Date of : 1970 Admission Date: 01/26/2023 2:45 PM Age: 52 y.o. Room/Bed: T2-201/T2-201 A Discharge Recommendation: Inpatient Rehab and Continue to assess pending progress Equipment Needed: TBD at next level of care Assessment IMPRESSION: Pt is a 52 y/o male admitted for L pneumothorax. Hospital course complicated by subcutaneous emphysema and vomiting. Pt previously lived in apartment by himself and was ind in all ADL's and ambulation without a device. Pt currently is supervision-CGA for lower body dressing and CGA for transfers. Biggest limiting factor is decreased endurance and SOB upon exertion. Recommend dischargeto IPR to continue to maximize independence in ADL's and ambulation. Pending progress, possible discharge home with assist PRN Performance Deficits /Impairments: Decreased Functional Mobility, Decreased ADL status, Decreased Safety Awareness, Decreased Endurance, Decreased Balance, and Decreased High Level IADLs Prognosis: Good Decision Making: Low Complexity Subjective Pt was seated EOB at start of session. S/Ot introduced self and discussed purpose of OT evaluation.Pt agreeable to services. Pain: RN managing pain. Past Medical History: Past Medical History: Diagnosis Date Anxiety COPD (chronic obstructive pulmonary disease) (HCC) Diverticulitis Pancreatitis TIA (transient ischemic attack) Pt stated in 90s and in 2014 Past Surgical History: Past Surgical History: Procedure Laterality Date HERNIA REPAIR LUNG LOBECTOMY TONSILLECTOMY (HISTORICAL) UPPER GASTROINTESTINAL ENDOSCOPY 07/10/2021 URETERAL STENT PLACEMENT Right Admission Diagnosis: Patient Active Problem List Diagnosis Date Noted Pneumothorax on left 01/26/2023 Orthopnea 07/10/2021 Gastroesophageal reflux disease with esophagitis 07/10/2021 Retained food in stomach 07/10/2021 Dysphagia 07/01/2021 Severe malnutrition (CMS/HCC) ([facility]) 07/10/2021 COPD with acute exacerbation ([facility]) 04/05/2021 COVID-19 04/04/2021 Medical Precautions: No active isolations Proper PPE donned/doffed in accordance with facility standards. Fall Risk: Hensley Fall Risk Score: 35 (Medium Risk) Precautions/Restrictions: Lines/Drains/Airways: NC O2, tele. PIV Family/Caregiver Present: none Overall Cognitive Status: Exceptions - Attention span: attends with cues to redirect - Safety judgement: decreased awareness of need for assistance and decreased awareness of need for safety Overall Orientation Status: Oriented x4 Social/Functional History Patient admitted from home. Lives With: Significant Other Type of Home: apartment Home Layout: Single Level Home Home Access: Level Entry Bathroom Shower/Tub: Tub/shower combo, grab bars Toilet: Standard, grab bars Home Equipment: none Homemaking Responsibilities: Independent Receives Help From: None Active Animal Taxonomist: Yes Prior Level of Function ADL Assistance: Independent Ambulation Assistance: Independent Transfer Assistance: Independent Objective ADLs LE Dressing: Supervision, Contact Guard to don/doff pants. Pt able to thread pants over feet while sitting EOB by bringing legs up. Pt stood with CGA and FWW to pull clothing over hips. Pt also able to don/doff socks sitting EOB by bringing leg up to complete task. Upper Extremity Assessment AROM: WFL PROM: WFL Strength: WFL Vision: no visual deficits Hearing: normal Bed Mobility Sit to supine: Supervision Pt required supervision to transfer form sitting EOB to supine. Demonstrated good control of trunk and LE management. HOB lowered and bed rails not utilized Transfers/Functional Mobility Sit to stand: Contact Guard Stand to sit: Contact Guard Bed to chair: Contact Guard Functional mobility: Contact Guard Pt able to stand from bed to FWW with CGA. Pt ambulated to chair with CGA, required assist for line management. Pt sat to/from chair with CGA. Pt ambulated back to bed and sat with CGA for increased control with descent. No LOB noted but Pt with increased SOB during ambulation Device(s) used: front wheeled walker AM-PAC AM-PAC Inpatient Daily Activity Raw Score: 23 ADL Inpatient CMS G-Code Modifier: CI Plan Pt would benefit from skilled acute OT services to address Balance Training, Functional Mobility Training, Endurance Training, Safety Education and Training, Equipment Evaluation/Education, Self-Care/ADL Training, and Home Management Training. Frequency: 2x/week for 4 weeks Barriers: Pain, Limited family support, No caregiver support, Impulsivity, Limited safety awareness, Decreased endurance, and Long standing deficits Prognosis: good Safety/Education Safety Safety Devices in place: All fall risk precautions in place, call light within reach, and left in bed Restraints: No Education Education Given To: patient Education Provided: OT Role, Plan of Care, and Discharge Recommendations Education Method: Verbal Barriers to Learning: None Education Outcome: Verbalized Understanding Goals Patient Stated Goal: To go back home Encounter Problems Encounter Problems (Active) Balance Patient will maintain dynamic standing balance for 5-7 minutes with supervision in order to demonstrate decreased risk of falling. Start: 02/07/23 Expected End: 03/07/23 Bathing Patient will utilize adaptive techniques to bathe body with supervision Start: 02/07/23 Expected End: 03/07/23 Instrumental Activities of Daily Living Patient will demonstrate use of energy conservation techniques during ADL tasks to promote function Start: 02/07/23 Expected End: 03/07/23 Toileting Patient will complete toileting tasks at standard toilet with CGA. Start: 02/07/23 Expected End: 03/07/23 Transfers Patient will complete functional transfer with least restrictive device with modified independence in order to prepare for ambulation. Start: 02/07/23 Expected End: 03/07/23 Therapy Time Individual Co-treatment Time In 1019 Time Out 1030 Minutes 11 Sirena Fragoso; S/OT Patient's Occupational Therapy Plan of Care supervision is transferred to a [facility] Services Occupational Therapist. Goals and/or treatment plan was established in collaboration with patient/family/other representatives. * Dagmar Horne, [employer] SALES REPRESENTATIVE - 02/07/2023 10:08 AM EST Images from the original note were not included. Speech-Language Pathology SPEECH LANGUAGE PATHOLOGY [facility] Dysphagia Treatment Note Patient Name: Luis Steele Evaluation Date: 02/07/2023 Date of : 1970 Admission Date: 01/26/2023 2:45 PM Age: 52 y.o. Room/Bed: T2/ A Subjective Patient alert, confused and cooperative. Seen upright in bed. Answers all basic questions with clear vocal quality. Follows all basic commands. No visitors at bedside. Spoke with ADELIA Briones who cleared pt for treatment. RN reports that patient states his eggs over breakast felt weird while swallowing. Patient then refused further breakfast or to take his morning medications. Current Diet: Dietary Orders (From admission, onward) Start Ordered 02/06/23 1220 Adult diet Easy to Chew; No Drinking Straws Diet effective now Comments: NO STRAWS. Single small sips of thin liquids. Single small drinks, single small bites. Double swallow. Throat clear and re-swallow every few bites Question Answer Comment Diet type Easy to Chew Other restriction(s): No Drinking Straws 02/06/23 1220 Aspiration Precautions: - Upright positioning for all PO intake - No straws - Small single sips - Swallow x2 per bolus - Frequent throat clear/re-swallow Oxygen: Oxygen Therapy: Supplemental oxygen O2 Delivery Method: Nasal cannula O2 Flow Rate (L/min): 6 L/min Pain: RN managing pain. PPE Worn: gloves Objective & Assessment Dysphagia Therapy: MBSS education Patient educated on results of previous day's MBSS as follows with importance of small, single cup sips: Recommend Easy to chew with single small sips of thin liquids. -NO STRAWS -Single small drinks, single small bites -Double swallow -Throat clear and re-swallow every few bites Mild oral and mild-moderate pharyngeal deficits as a result of bolus loss, mild oral residuals, decreased epiglottic deflection with back of epiglottic staining and trace vocal cord penetration (undercoated with straw drink-flash aspiration). Throat clear was effective to clear vocal cord penetration/back of epiglottic staining. Assess dietary tolerance Patient consumes small, single cup sips with timely swallow onset and no change in vocal quality orcough noted. Patient further consumes puree textures and hard solids in small bites. Patient voicesno complaints with intake. Patient presents with slightly extended, but functional mastication, good bolus management, and mild oral residue. Oral residue clears with puree chaser and/or liquid wash. Plan & Recommendations Plan: Recommend continue easy to chew/thin liquids with strategies as below. ST to follow per dysphagia plan of care. Continue acute [employer] SALES REPRESENTATIVE therapy per initial plan of care and established goals. Recommend Easy to chew solids and Thin liquids and meds whole in puree or as tolerated and the following precautions: - Upright positioning for all PO intake - No straws - Swallow x 2 per bolus - Small single sips - Frequent throat clear/re-swallow D/C Recommendations: to be determined Education Education Given: swallowing strategies, diet recommendations Given To: patient and RN Response: needs reinforcement Goals Patient Stated Goal: To eat regular food. Encounter Problems Encounter Problems (Active) Swallowing Patient will demonstrate safe swallowing Intervention/techniques (Progressing) Start: 01/28/23 Expected End: 02/11/23 Patient will tolerate recommended food and liquid consistencies without clinical signs and symptomsof aspirations (Progressing) Start: 01/28/23 Expected End: 02/11/23 Patient will participate in instrumental assessment of swallowing as appropriate (Completed) Start: 01/28/23 Expected End: 02/11/23 Resolved: 02/07/23 Therapy Time [employer] SALES REPRESENTATIVE Individual Minutes Time In: 0950 Time Out: 1001 Minutes: 11 TRACI Rainey * Jordin Larsen APRN - [place] - 02/07/2023 8:00 AM EST ICU Progress Note Name: Luis Steele : 1970(52 y.o.) Date: 02/07/23 Team: MICU Attending: Dr. A. Maynard Subjective: Hospital Summary: Mr. Steele is a 52yoM with hx of severe COPD-stage 4, chronic hypoxemic respiratoryfailure on 5L home O2, prior trach (2014, since decannulated, in setting of prolonged respiratory failure 2/2 MRSA PNA/ARDS), dysphagia, TIA, GIB, nephrolithiasis w/ stent, anemia, anxiety, and former tobacco abuse who presented to [place] ED on 01/26/23 for severe respiratory distress and hypoxia. Left PTX on imaging. Intubated, Chest tube placed. Initially admitted to [facility]. Chest tube inadvertently dislodged on 01/27, CXR stable. Extubated 01/28 to HFNC. 01/29 worsening subcutaneous emphysema to neck/shoulders, worsening hypoxia, re-intubated. Transferred to [facility] for CTS eval. Improved CXR,CTS signed off. On 02/02- vomiting- workup revealing colonic stool burden, no ileus. 02/03- extubated to 6LNC. He has since been moving bowels. Stable on 5LNC. [employer] SALES REPRESENTATIVE eval with MBS determined dysphagia, now on dysphagia diet. Interval Events: No new acute events overnight. On exam, awake and alert. Currently complains of BUE and trunk rash that itches. Currently erythema present, no raised rash noted Scheduled Meds:budesonide, 0.5 mg, Nebulization, Daily buPROPion XL, 300 mg, Oral, Daily enoxaparin, 40 mg, SubCUTAneous, Daily [Held by provider] ferrous sulfate, 325 mg, Oral, Every other day influenza, 0.5 mL, IntraMUSCular, Prior to discharge insulin lispro, 0-12 Units, SubCUTAneous, 4x daily AC & HS ipratropium-albuterol, 3 mL, Nebulization, TID Lidocaine, 1 patch, TransDERmal, Daily nicotine, 1 patch, TransDERmal, Daily pantoprazole, 40 mg, Oral, Nightly Or pantoprazole (ProtoNix) 40 mg in sodium chloride (PF) 0.9 % 10 mL injection, 40 mg, IntraVENous, Nightly potassium chloride, 40 mEq, IntraVENous, Once [Held by provider] senna-docusate sodium, 1 tablet, Oral, BID sertraline, 100 mg, Oral, Daily Continuous Infusions:lactated Ringer's, 75 mL/hr, Last Rate: 75 mL/hr (02/06/23 1829) Objective: Last Vitals: BP MAP 126/78 (02/07/23 0800) 92 (02/07/23 08) Arterial BP MAP 114/61 (02/04/23 1300) 79 mmHg (02/04/23 1300) Temp 37.2 C (99 F) (02/07/23799) Pulse 88 (02/07/23 08) Resp 20 (02/07/23811) SpO2 96 % (02/07/23811) Weight 81.8 kg (180 lb 5.4 oz) (02/06/23 05) BMI Body mass index is 25.88 kg/m . I/O: 02/06 700 - 02/07 659 In: 313.3 [I.V.:313.3] Out: 1752 [Urine:1752] Ventilator: Ventilation Day(s): 2 Resp Rate (Set): 20 Vt (Set, mL): 400 mL IP Set (cm H2O): 0 cm H2O FiO2 (%): 50 % PEEP/CPAP (cm H2O): 8 cm H20 Inspiratory Time (sec): 0.9 sec Oxygen Delivery: O2 Flow Rate (L/min): 6 L/min Invasive Lines / Tubes / Drains: Peripheral IV 02/06/23 Anterior;Left;Proximal Forearm (Active) Number of days: 0 Central Line Indication: NA - patient does not have a central line Emerson Indications: NA - patient does not have a Emerson catheter Restraints: Restraints Non-Violent Or Non-Self Destructive Jan 29, 2023 10:34 Pm Est NA - patient is not restrained. Wounds: Wound/Incision 01/28/23 Incision Back Lateral;Left (Active) Date First Assessed/Time First Assessed: 01/28/23799 Primary Wound Type: Incision Location: Back Wound Location Orientation: Lateral;Left Wound Description (Comments): chest tube site, clean dry and intact Constitutional: General Appearance [x]WDWN []Obese []Cachectic []Thin []Ill Eyes: Inspection of Pupils/Irises Pupils round and react: [x]Yes []No Sclera: []Icteric [x]Non-Icteric Inspection of Conjunctiva/Lids Conjunctiva: []Injected [x]Non-Injected Lids: [x]Intact []Lesion Present ENT/Mouth: External Inspection of ears/nose [x] Normal [] Scar/Lesion/Mass Inspection of teeth/lips/gums Dentition: [x][place] Teeth []Dentures Lips/Gums: [x]Intact []Lesion Present Mucosa: [][place] [x]Moist []Dry Neck: External Appearance Overall Appearance: [x]Normal []Lesion/Mass/Crepitus Present Trachea midline: [x]Yes []No Thyroid []Normal []Enlarged []Tender []Mass []Absent Respiratory: Respiratory effort []Labored [x]Non-Labored [] Mechanically-Ventilated Auscultation [x]Clear []Crackles []Wheezes [][place] Cardiovascular: Auscultation Rate: [x]Regular []Irregular []Tachycardia []Bradycardia Rhythm: [x]Regular []Irregular Murmur: []Present [x]Absent Extremities Peripheral Edema: []Present [x]Absent Varicosities: []Present [x]Absent Gastrointestinal: Abdomen Palpation: [x]Soft []Firm []Tender [x]Non-Tender []Distended [x]Non-distended Mass: []Present []Absent Bowel Sounds: [x]Present []Absent Hernia: []Present []Absent Liver/Spleen: []Hepatosplenomegaly []Organomegaly Absent Musculoskeletal: Inspection of Digits and Nails Cyanosis: []Present [x]Absent Clubbing: []Present [x]Absent Ischemia: []Present [x]Absent Infection: []Present [x]Absent Extremities SCOTT Equally: Except ([]RUE []RLE []LUE []LLE) Strength/Tone: Intact and Normal ([x]RUE [x]RLE [x]LUE [x]LLE) Skin: Inspection []Normal [x]Rash []Lesion []Ulcer Palpation [x]Warm []Cool [x]Dry []Clammy []Nodules []Induration []Skin-tightening Cap-Refill: [x] <3 sec [] >3 seconds (delayed) Neurologic: GCS EYE: 4 - Opens spontaneously GCS MOTOR: 6 - Obeys commands for movement GCS VERBAL: 5 - Oriented to person, place, time Total GCS: 15 [x] Sensation grossly intact Psych: Mental Status Alert: [x]Yes [] No Oriented: []x0 []X1 []X2 [x]x3 Mood/Affect [x]Normal []Flat []Agitated []Depressed []Anxious []Calm []Sedated []NAD [facility] within last 24 hours- BMP: Recent Labs 02/05/2322002/06/2332302/07/23255 NA 134* 135 136 K 4.0 3.3* 3.0* CL 99 97* 96* CO2 27 29 33* BUN 17 11 6* CREATININE 0.69 0.66 0.64* CALCIUM 8.2* 8.6 8.5 MG -- -- 1.8 PHOS -- -- 2.3* LFTs: Recent Labs 02/06/23323 AST 33 ALT 24 PROT 6.5 ALBUMIN 3.2* BILITOT 0.7 ALKPHOS 53 LIPASE 1,778* Glucose: Recent Labs 02/05/2322002/05/2332302/05/23 0748 02/05/23 1441 02/05/23 2132 02/06/23 0210 02/06/23 0316 02/06/23 0324 02/06/23 0739 02/06/23 1419 02/06/23 2125 02/07/23 025 GLUCOSE 72 -- -- -- -- -- -- 95 -- -- -- 119* POCGLU -- < > 76 97 80 86 90 -- 86 130* 115* -- < > = values in this interval not displayed. Procal: No results for input(s): PROCAL in the last 72 hours. CBC: Recent Labs 02/05/2322002/06/2332302/07/23255 WBC 6.8 10.0 9.5 HGB 8.8* 9.8* 10.4* HCT 27.6* 31.3* 32.9* PLT 264 345 324 MCV 82.1 81.7 82.1 RDW 16.7* 16.6* 16.4* ABGs: No results for input(s): PHART, XTX6ACC, PO2ART, DEB0XNI, SO2ART, M2TSOFTX in thelast 72 hours. Lactic Acid: No results for input(s): LACTATE in the last 72 hours. INR: No results for input(s): INR in the last 72 hours. Cardiac Injury Profile: Recent Labs 02/07/23 0843 TROPONINI <0.012 Labs in Last 3 months: Lab Results Component Value Date TSH 0.183 (L) 01/26/2023 VITD25 16 (L) 04/05/2021 INR 1.0 01/26/2023 Microbiology- Urine Cx: No results found for: URINECX Blood Cx: Lab Results Component Value Date BLOODCX No growth at 5 days 01/26/2023 Sputum Cx: Lab Results Component Value Date RESPCULT Few normal respiratory olayinka. 04/09/2021 Gram Stain: Lab Results Component Value Date LABGRAM 07/06/2021 Many polymorphonuclear cells/lpf. Few epithelial cells/lpf. Many gram negative bacilli. Few gram positive cocci in clusters. Few gram positive bacilli. PNA PCR: Lab Results Component Value Date HUMANMETAPNE Not Detected 01/27/2023 COVID19: No results found for: COVID19 Legionella Ag: No results found for: LEGIONELLAPN Strep Ag: No results for input(s): STREPPNEUMO in the last 72 hours. Imaging- CT abd/pelvis 02/02 IMPRESSION: 1. Gastric and ascending and transverse colon dilatation without small bowel dilatation, nonspecific and possibly related to mild gastric and colonic ileus. 2. Subcutaneous gas/air in the left abdominal and pelvic wall extending anterior to the symphysis pubis known etiology possibly secondary to subcutaneous injection(s) or other instrumentation. Correlate with clinical parameters. 3. Mild diffuse fatty metamorphosis of liver. 4. No evidence of mass, lymphadenopathy or inflammatory process. 5. Small bilateral pleural effusions, left larger than right, bilateral lower lobe bronchiectasis. IMPRESSION: 1. Lines/Tubes/Devices/Hardware: Stable projection of NG tube. Please confirm position and functionof any catheters or attempted catheters clinically. 2. Lungs: Persistent interstitial prominence. No major volume loss.. Limited due to portable technique. Consider follow-up with PA and lateral chest for persistent symptoms. 3. Pleura: No significant effusion. No significant pneumothorax. 4. Heart and mediastinum: Limited due to technique. 5. Upper abdomen: No acute process seen. 6. Thorax:Persistent subcutaneous emphysema. Etiology uncertain. Assessment and Plan: Principal Problem: Pneumothorax on left Active Problems: Orthopnea Assessment: Acute on chronic hypoxic respiratory failure; resolved PTX s/p chest tube; Hx of COPD stage 4 with centrilobular emphysema; hx prior trach; wears 5LNC baseline Dysphagia Anxiety/depression Resolving colonic stool burden, hx of gastroparesis hypokalemia NC/NC anemia Dehabilitation, myopathies/neuropathies FEN Plan: CT out, on baseline oxygen, denies SOB. Continue pulm recruitment activites- cough/deep breath/IS/ out of bed to chair. Scheduled nebs Followed by [employer] REPRESENTATIVE, progress diet based on recs. Remains on dysphagia plan of care Resume home sertraline and wellbutrin Continue bowel regimen, Surgery team signed off, NGT out Replace, recheck Monitor H&H trends. Currently stable PT/OT. OOB to chair Diet per [employer] REPRESENTATIVE recs, monitor lytes, bowel regimen GI Prophylaxis: Pantoprazole PO DVT Prophylaxis: Lovenox 40 q 24hr - creatinine clearance >30 Disposition: Transfer to [facility] Discussed plan of care with Dr. Mariluz Maynard * Inez Alonzo PA-C - 02/06/2023 8:52 AM EST ICU Progress Note Name: Luis Steele : 1970(52 y.o.) Date: 02/06/23 Team: MICU Attending: Dr. Maynard Subjective: Hospital Summary: 52yoM w/ PMHx severe COPD, chronic hypoxemic respiratory failure on 5L home O2, prior trach (2014, since decannulated, in setting of prolonged respiratory failure 2/2 MRSA PNA/ARDS), dysphagia, TIA, GIB, nephrolithiasis w/ stent, anemia, anxiety, and former tobacco abuse who presen mariza to [place] ED on 01/26/23 for severe respiratory distress and hypoxia. CXR w/ L lower lateralPTX - intubated for severe/refractory hypoxia and respiratory distress despite NIV, 28Fr chest tubeplaced. Admitted to [facility] ICU. F/u CXR w/ resolution of PTX, streaky bibasilar atelectasis vs pna. WBC 12.4. Infectious workup initiated, placed on ceftriaxone. Treating for AE-COPD w/ steroids and nebs. 01/27: No air leak. CT with small anterior left PTX not being accessed by chest tube. Overnight on chest tube inadvertently dislodged. Remained stable on vent with no recurrence of PTX 01/28: Extubated to 15L [place] HFNC. Continuing to treat COPD exacerbation and weaning oxygen. Infectious workup negative to date, no significant sputum production - antibiotics discontinued. 01/29: Developed increasing SQ emphysema in neck and shoulder regions which progressed rapidly thatevening leading to neck swelling and airway compromise - emergently re-intubated. CT w/ small stable residual L anterior basal PTX, extensive b/l neck and chest SQ emphysema, no evidence of airway injury. Concern for possible pluero-subcutaneous fistula. Transferred to [facility] ICU for further evaluation by CTS - no acute surgical intervention with desir slots with wound vac at that time, recommend monitoring, consideration for SQ wound VAC and chest tube replacement if worsening. 01/30: SQ emphysema stabilizing, attempting to wean vent/PEEP. 01/31: Crepitus improving, CXR with no PTX - CTS signed off. Switched sedation from propofol to precedex with goal of extubating within next 1-2 days. 02/02: Had episode of tube feed emesis and worsening abdominal distension. KUB concerning for SBO vs ileus. TFs held, OG placed to suction. Held off on extubation. Gen surg consulted. CT A/P suggestive of ileus, colonic stool burden w/out evidence of obstruction. Has h/o gastroparesis requiring erythromycin during prior ICU admit - initiated bowel regimen/daily dulcolax suppositories. Rash noted on patient's backside and lower extremities (picture in media), denies pain/itchiness. 02/03: Extubated to 6L NC, NGT placed. Still requiring precedex for anxiety - PRN IM vistaril ordered. Initiated reglan and erythromycin per Surgery recs - had 6-7 liquid BMs later that day. Rash stable, asymptomatic. 02/04: Requiring 6-8L NC. Abdominal distension improving, having BMs. Still c/o nausea, refusing POmeds. KUB with moderate small bowel distension. 02/05: Tolerating 6L NC, nausea improving. NGT removed, reglan and erythromycin dc'd, Surgery signed off. Seen by [employer] REPRESENTATIVE, recommended MBS. Interval Events: Having BMs per RN, NG removed yesterday. This AM per RN still having nausea and episodes of dry heaves during which he desats into the 80s - sats otherwise adequate on home 6L NC. Remains mildly tachycardic with mildly elevated temps but no true fevers. Had MBS this AM - did show mild/moderate oropharyngeal dysphagia with decreased epiglottic deflection and trace vocal cord penetration - advanced to easy to chew/thin liquid diet per [employer] REPRESENTATIVE recs (no straws). Tolerated eating lunch this afternoon. Currently sitting up in bed, awake and alert, appears comfortable. C/o cough which is chronic and at baseline. Denies N/V and abdominal pain presently. Scheduled Meds:bisacodyl, 10 mg, Rectal, Daily budesonide, 0.5 mg, Nebulization, Daily [Held by provider] buPROPion XL, 300 mg, Oral, Daily enoxaparin, 40 mg, SubCUTAneous, Daily [Held by provider] ferrous sulfate, 325 mg, Oral, Every other day influenza, 0.5 mL, IntraMUSCular, Prior to discharge insulin lispro, 0-12 Units, SubCUTAneous, q6h ipratropium-albuterol, 3 mL, Nebulization, TID Lidocaine, 1 patch, TransDERmal, Daily nicotine, 1 patch, TransDERmal, Daily pantoprazole, 40 mg, Oral, Nightly Or pantoprazole (ProtoNix) 40 mg in sodium chloride (PF) 0.9 % 10 mL injection, 40 mg, IntraVENous, Nightly [Held by provider] senna-docusate sodium, 1 tablet, Oral, BID [Held by provider] sertraline, 100 mg, Oral, Daily Continuous Infusions:dexmedeTOMIDine, 0.1-1.5 mcg/kg/hr, Last Rate: Stopped (02/05/23 0800) lactated Ringer's, 75 mL/hr, Last Rate: 75 mL/hr (02/05/231925) Objective: Last Vitals: BP MAP 120/69 (02/06/23 0700) 86 (02/06/23 0700) Arterial BP MAP 114/61 (02/04/23 1300) 79 mmHg (02/04/23 1300) Temp 37.5 C (99.5 F) (02/06/23 0400) Pulse 94 (02/06/23 08) Resp 16 (02/06/23 08) SpO2 94 % (02/06/23836) Weight 81.8 kg (180 lb 5.4 oz) (02/06/23 0518) BMI Body mass index is 25.88 kg/m . I/O: 02/05 07 - 02/06 0659 In: 2746.8 [I.V.:2686.8] Out: 1000 [Urine:1000] Ventilator: Ventilation Day(s): 2 Resp Rate (Set): 20 Vt (Set, mL): 400 mL IP Set (cm H2O): 0 cm H2O FiO2 (%): 50 % PEEP/CPAP (cm H2O): 8 cm H20 Inspiratory Time (sec): 0.9 sec Oxygen Delivery: O2 Flow Rate (L/min): 5 L/min Invasive Lines / Tubes / Drains: Peripheral IV 01/26/23 Distal;Posterior;Right Forearm (Active) Number of days: 10 Peripheral IV 01/29/23 Anterior;Left Forearm (Active) Number of days: 7 Central Line Indication: NA - patient does not have a central line Emerson Indications: NA - patient does not have a Emerson catheter Restraints: Restraints Non-Violent Or Non-Self Destructive Jan 29, 2023 10:34 Pm Est NA - patient is not restrained. Wounds: Wound/Incision 01/28/23 Incision Back Lateral;Left (Active) Date First Assessed/Time First Assessed: 01/28/23 0800 Primary Wound Type: Incision Location: Back Wound Location Orientation: Lateral;Left Wound Description (Comments): chest tube site, clean dry and intact Constitutional: General Appearance [x]WDWN []Obese []Cachectic []Thin []Ill Eyes: Inspection of Pupils/Irises Pupils round and react: [x]Yes []No Sclera: []Icteric [x]Non-Icteric Inspection of Conjunctiva/Lids Conjunctiva: []Injected [x]Non-Injected Lids: [x]Intact []Lesion Present ENT/Mouth: External Inspection of ears/nose [x] Normal [] Scar/Lesion/Mass Inspection of teeth/lips/gums Dentition: [][place] Teeth []Dentures Lips/Gums: [x]Intact []Lesion Present Mucosa: [x][place] []Moist []Dry Neck: External Appearance Overall Appearance: [x]Normal []Lesion/Mass/Crepitus Present Trachea midline: [x]Yes []No Thyroid []Normal []Enlarged []Tender []Mass []Absent Respiratory: Respiratory effort []Labored [x]Non-Labored [] Mechanically-Ventilated Auscultation [x]Clear []Crackles []Wheezes []Rhonchi Breath sounds diminished b/l Mild crepitus noted posteriorly Cardiovascular: Auscultation Rate: []Regular []Irregular [x]Tachycardia []Bradycardia Rhythm: [x]Regular []Irregular Murmur: []Present []Absent Extremities Peripheral Edema: []Present [x]Absent Varicosities: []Present [x]Absent Gastrointestinal: Abdomen Palpation: [x]Soft []Firm []Tender [x]Non-Tender []Distended []Non-distended Mass: []Present []Absent Bowel Sounds: [x]Present (hyperactive) []Absent Hernia: []Present []Absent Liver/Spleen: []Hepatosplenomegaly []Organomegaly Absent Musculoskeletal: Inspection of Digits and Nails Cyanosis: []Present [x]Absent Clubbing: []Present [x]Absent Ischemia: []Present [x]Absent Infection: []Present []Absent Extremities SCOTT Equally: Except ([]RUE []RLE []LUE []LLE) Strength/Tone: Intact and Normal ([]RUE []RLE []LUE []LLE) MAEx4 Skin: Inspection [x]Normal []Rash []Lesion []Ulcer Palpation [x]Warm []Cool [x]Dry []Clammy []Nodules []Induration []Skin-tightening Cap-Refill: [x] <3 sec [] >3 seconds (delayed) Neurologic: GCS EYE: 4 - Opens spontaneously GCS MOTOR: 6 - Obeys commands for movement GCS VERBAL: 5 - Oriented to person, place, time Total GCS: 15 [x] Sensation grossly intact Psych: Mental Status Alert: [x]Yes [] No Oriented: []x0 []X1 []X2 [x]x3 Mood/Affect []Normal []Flat []Agitated []Depressed []Anxious [x]Calm []Sedated [x]NAD [facility] within last 24 hours- BMP: Recent Labs 02/04/23 00202/05/2322002/06/23323 NA 133* 134* 135 K 4.1 4.0 3.3* CL 96* 99 97* CO2 30 27 29 BUN 25* 17 11 CREATININE 0.73 0.69 0.66 CALCIUM 8.5 8.2* 8.6 LFTs:No results for input(s): AST, ALT, PROT, ALBUMIN, BILITOT, BILIRUBINU, ALKPHOS, LIPASE in the last 72 hours. Glucose: Recent Labs 02/04/23 0029 02/04/23 0335 02/04/23 21402/05/2322002/05/23 0324 02/05/23 0748 02/05/23 1441 02/05/23 2132 02/06/23 0210 02/06/23 0316 02/06/23 0324 02/06/23 0739 GLUCOSE 91 -- -- 72 -- -- -- -- -- -- 95 -- POCGLU -- < > 82 -- 74 76 97 80 86 90 -- 86 < > = values in this interval not displayed. Procal: No results for input(s): PROCAL in the last 72 hours. CBC: Recent Labs 02/04/23 00202/04/23 0030 02/05/2322002/06/23 0324 WBC 10.7 -- 6.8 10.0 HGB 10.4* 11.0 8.8* 9.8* HCT 32.3* -- 27.6* 31.3* PLT 322 -- 264 345 MCV 81.6 -- 82.1 81.7 RDW 17.0* -- 16.7* 16.6* ABGs: Recent Labs 02/04/2329 PHART 7.380 [id number] 49.1* PO2ART 70.2* [id number] 28.4* [id number] Nasal cannula Lactic Acid: No results for input(s): LACTATE in the last 72 hours. INR: No results for input(s): INR in the last 72 hours. Cardiac Injury Profile: No results for input(s): CKTOTAL, CKMB, TROPONINI in the last 72 hours. Labs in Last 3 months: Lab Results Component Value Date TSH 0.183 (L) 01/26/2023 VITD25 16 (L) 04/05/2021 INR 1.0 01/26/2023 Microbiology- Urine Cx: No results found for: URINECX Blood Cx: Lab Results Component Value Date BLOODCX No growth at 5 days 01/26/2023 Sputum Cx: Lab Results Component Value Date RESPCULT Few normal respiratory olayinka. 04/09/2021 Gram Stain: Lab Results Component Value Date LABGRAM 07/06/2021 Many polymorphonuclear cells/lpf. Few epithelial cells/lpf. Many gram negative bacilli. Few gram positive cocci in clusters. Few gram positive bacilli. PNA PCR: Lab Results Component Value Date HUMANMETAPNE Not Detected 01/27/2023 COVID19: No results found for: COVID19 Legionella Ag: No results found for: LEGIONELLAPN Strep Ag: No results for input(s): STREPPNEUMO in the last 72 hours. Imaging- CXR 01/26 FINDINGS/IMPRESSION: 1. Lines/Tubes/Devices/Hardware: None. 2. Lungs: No consolidation or pulmonary edema. Changes of COPD. Fibrotic changes and bronchiectasisat the lung bases. Surgical clips or sutures within the right upper lung. 3. Pleura: Large left pneumothorax. No pneumothorax or large pleural effusions. 4. Heart and mediastinum: No significant mediastinal shift. Normal cardiomediastinal contours. CT Chest 01/27 IMPRESSION: 1. Small left pneumothorax. The left chest tube appears to be located within a pulmonary bleb in the posterior aspect of the left lower lobe and the intrathoracic segment of the tube contains fluid. 2. Bibasilar airspace opacities most likely represent atelectasis. 3. Severe emphysematous changes in the lungs bilaterally. CXR 01/29 IMPRESSION: Endotracheal tube with distal tip above the chun. Extensive bilateral subcutaneous emphysema of the chest and neck. Constellation of findings compatible with COPD. CT Chest 01/29 IMPRESSION: Small left-sided pneumothorax (approximately 15 percent). Moderate emphysema with bilateral lower lobe bronchiectasis. Patchy right upper and lower lobe infiltrates and bibasilar atelectasis. Pneumomediastinum. Bilateral neck and chest subcutaneous emphysema. CT Soft tissue neck 01/29 IMPRESSION: 1. Small left apical pneumothorax. 2. Extensive chest and neck subcutaneous emphysema. 3. Moderate emphysema. 4. ET tube tip is within the distal trachea. XR abdomen 02/02 IMPRESSION: New mild, nonspecific dilation of loops of large and small bowel, possibly related to developing ileus versus small bowel obstruction. Unchanged positioning of the NG/OG catheter. CT A/P w/ IV and PO contrast 02/02 IMPRESSION: Gastric and ascending and transverse colon dilatation without small bowel dilatation, nonspecific and possibly related to mild gastric and colonic ileus. Subcutaneous gas/air in the left abdominal and pelvic wall extending anterior to the symphysis pubis known etiology possibly secondary to subcutaneous injection(s) or other instrumentation. Correlatewith clinical parameters. Mild diffuse fatty metamorphosis of liver. No evidence of mass, lymphadenopathy or inflammatory process. Small bilateral pleural effusions, left larger than right, bilateral lower lobe bronchiectasis. KUB 02/06/23 IMPRESSION: Stable, mildly increased gaseous dilation of the transverse colon. Assessment and Plan: Principal Problem: Pneumothorax on left Active Problems: Orthopnea Acute on chronic hypoxic respiratory failure 2/2 PTX (resolved) & AE-COPD + hx severe COPD/Centrilobular emphysema: -Hx prior trach (2014 -> since decannulated), on 5L NC at baseline -01/26 Intubated for respiratory distress/hypoxia in setting of PTX, CT placed (out 01/28) -01/28 Extubated-> re-intubated 01/29 for airway compromise 2/2 SQ emphysema -SQ emphysema resolved spontaneously, no surgical intervention or repeat CT -02/03 Successfully extubated to 6-8L NC -Weaned to home 5L NC today, sats adequate at rest -Desats into the 80s noted during episodes of dry heaving -CXR yesterday w/ persistent interstitial prominence & SQ emphysema, no PTX -Continue duonebs and budesonide nebs in place of home inhalers -Wean FiO2 as tolerated w/ goal SpO2>92%, repeat CXR PRN Ileus/Gastroparesis of critical illness: -NGT removed yesterday 02/05 -KUB today w/ mildly increased gaseous dilation of transverse colon -No BM yet today (last BM yesterday 02/05, small/watery) -Still having nausea- lipase elevated as below, checking repeat CT A/P -Continue diet advancement as tolerated pending repeat CT results -Continue PRN zofran and phenergan -Resume reglan given h/o gastroparesis -Switch dulcolax suppositories to PRN -Continue to monitor serial abdominal exams, f/u repeat KUB tomorrow Nausea, elevated lipase: -Still having nausea despite resolving ileus -Lipase 1778, LFTs WNL (intermittent mild transaminitis noted prior this admit) -Check repeat CT A/P (today vs tomorrow pending KUB to eval for barium clearance) -Continue MIVF, diet advancement as tolerated pending CT results Anemia (normocytic, hypochromic): -Hgb 9.8 from 8.8, Plt WNL, no s/s active bleeding -Continue to monitor daily CBC -Consider transfusion for Hgb<7.0 or s/s acute bleed Anxiety: -Weaned off precedex gtt yesterday -Continue PRN hydroxyzine (switch from IM to PO) -Resume home zoloft (states he is no longer taking wellbutrin) Dysphagia: -MBS: mild/mod dysphagia, decreased epiglottic deflection, trace vocal cord penetration -Advanced to easy to chew/thin liquid diet per [employer] REPRESENTATIVE recs w/ meds in puree as tolerated -No straws, single sips of liquids, small sips/bites, double swallow, throat re-clear -[employer] REPRESENTATIVE following, continue speech therapy Hyperglycemia (resolved) 2/2 stress/steroids: -Hgb A1c 5.0 -Has not required insulin last 4 days, BGTs 70s-90s -D/c SSI, resume if BGTs uncontrolled once PO intake improving Tobacco use: -Nicotine replacement ordered -Cessation education prior to d/c Debility: -PT/OT FEN: -MBS: mild/mod dysphagia, decreased epiglottic deflection, trace vocal cord penetration -Advanced to easy to chew/thin liquid diet per [employer] REPRESENTATIVE recs w/ meds in puree as tolerated -No straws, single sips of liquids, small sips/bites, double swallow, throat re-clear -MIVF: continue LR @75cc/hr until PO intake adequate -Continue to monitor Code status: -Full code GI Prophylaxis: Pantoprazole IV DVT Prophylaxis: Lovenox 40 q 24hr - creatinine clearance >30 Disposition: Remain in ICU Status - possible transfer to floor tomorrow Critical care time spent reviewing labs/films, examining patient, collaborating with other physicians but excluding procedures for life threatening organ failure is 60 minutes. Plan of care discussed with Dr. Maynard * Anselmo Jauregui MD - 02/05/2023 11:18 AM EST Images from the original note were not included. Department of General Surgery Daily Progress Note ADMIT DATE: 01/26/2023 TODAY'S DATE: 02/05/2023 SUBJECTIVE: Had multiple bowel movements, abdominal pain and distension improved. ROS: Noted above unless otherwise mentioned OBJECTIVE: VITALS: Temp: [36.5 C (97.7 F)-37.3 C (99.1 F)] 36.9 C (98.5 F) Heart Rate: [69-107] 107 Resp: [02-04] 24 BP: (90-129)/(59-112) 120/75 Arterial Line BP 1: (103-114)/(57-61) 114/61 INTAKE/OUTPUT: Intake/Output Summary (Last 24 hours) at 02/05/2023 1118 Last data filed at 02/05/2023 0800 Gross per 24 hour Intake 1357.56 ml Output 1930 ml Net -572.44 ml I/O last 3 completed shifts: In: 1741.6 (20.6 mL/kg) [I.V.:1741.6 (20.6 mL/kg)] Out: 2660 (31.5 mL/kg) [Urine:2120 (0.7 mL/kg/hr); Emesis/NG output:540] Weight: 84.5 kg I/O this shift: In: 60 [NG/GT:60] Out: 200 [Urine:200] PHYSICAL EXAM: CONSTITUTIONAL: awake, alert, NAD NECK: Supple, symmetrical, trachea midline LUNGS: 6L NC CARDIOVASCULAR: HR and BP stable ABDOMEN: Soft, moderately distended, minimally tender CHEST: no masses palpated, non-tender GENITAL/URINARY: Not examined MUSCULOSKELETAL: There is no redness, warmth, or swelling of the joints. NEUROLOGIC: Awake, alert, oriented to name, place and time. SKIN: normal skin color, texture, no redness, warmth, or swelling LABS CBC: Auto WBC Date Value Ref Range Status 02/05/2023 6.8 3.6 - 10.7 10*3/uL Final 02/04/2023 10.7 3.6 - 10.7 10*3/uL Final 02/03/2023 11.2 (H) 3.6 - 10.7 10*3/uL Final Hgb, blood gas Date Value Ref Range Status 02/04/2023 11.0 Screen Only g/dl Final 02/03/2023 11.3 Screen Only g/dl Final 02/02/2023 10.8 Screen Only g/dl Final Hemoglobin Date Value Ref Range Status 02/05/2023 8.8 (L) 13.0 - 18.0 g/dL Final 02/04/2023 10.4 (L) 13.0 - 18.0 g/dL Final 02/03/2023 10.3 (L) 13.0 - 18.0 g/dL Final Platelets Date Value Ref Range Status 02/05/2023 264 140 - 440 10*3/uL Final 02/04/2023 322 140 - 440 10*3/uL Final 02/03/2023 302 140 - 440 10*3/uL Final BMP: SODIUM Date Value Ref Range Status 02/05/2023 134 (L) 135 - 145 mmol/L Final 02/04/2023 133 (L) 135 - 145 mmol/L Final 02/03/2023 131 (L) 135 - 145 mmol/L Final POTASSIUM Date Value Ref Range Status 02/05/2023 4.0 3.5 - 5.1 mmol/L Final 02/04/2023 4.1 3.5 - 5.1 mmol/L Final 02/03/2023 4.5 3.5 - 5.1 mmol/L Final CHLORIDE Date Value Ref Range Status 02/05/2023 99 98 - 107 mmol/L Final 02/04/2023 96 (L) 98 - 107 mmol/L Final 02/03/2023 96 (L) 98 - 107 mmol/L Final CARBON DIOXIDE Date Value Ref Range Status 02/05/2023 27 22 - 30 mmol/L Final 02/04/2023 30 22 - 30 mmol/L Final 02/03/2023 29 22 - 30 mmol/L Final UREA NITROGEN Date Value Ref Range Status 02/05/2023 17 9 - 20 mg/dL Final 02/04/2023 25 (H) 9 - 20 mg/dL Final 02/03/2023 28 (H) 9 - 20 mg/dL Final CREATININE Date Value Ref Range Status 02/05/2023 0.69 0.66 - 1.25 mg/dL Final 02/04/2023 0.73 0.66 - 1.25 mg/dL Final 02/03/2023 0.87 0.66 - 1.25 mg/dL Final 07/11/2021 0.90 0.52 - 1.25 mg/dL Final 07/08/2021 0.88 0.52 - 1.25 mg/dL Final 07/07/2021 0.66 0.52 - 1.25 mg/dL Final Hepatic: AST (SGOT) Date Value Ref Range Status 01/29/2023 40 15 - 46 U/L Final 01/29/2023 70 (H) 15 - 46 U/L Final 01/28/2023 42 15 - 46 U/L Final ALT Date Value Ref Range Status 01/29/2023 31 0 - 49 U/L Final 01/29/2023 35 0 - 49 U/L Final 01/28/2023 23 0 - 49 U/L Final ALBUMIN Date Value Ref Range Status 01/29/2023 4.5 3.5 - 5.0 g/dL Final 01/29/2023 4.3 3.5 - 5.0 g/dL Final 01/28/2023 3.9 3.5 - 5.0 g/dL Final BILIRUBIN, TOTAL Date Value Ref Range Status 01/29/2023 1.0 0.2 - 1.3 mg/dL Final 01/29/2023 0.6 0.2 - 1.3 mg/dL Final 01/28/2023 0.3 0.2 - 1.3 mg/dL Final ALKALINE PHOSPHATASE Date Value Ref Range Status 01/29/2023 44 38 - 126 U/L Final 01/29/2023 43 38 - 126 U/L Final 01/28/2023 40 38 - 126 U/L Final Current Inpatient Medications Scheduled Meds:bisacodyl, 10 mg, Rectal, Daily budesonide, 0.5 mg, Nebulization, Daily [Held by provider] buPROPion XL, 300 mg, Oral, Daily enoxaparin, 40 mg, SubCUTAneous, Daily [Held by provider] ferrous sulfate, 325 mg, Oral, Every other day influenza, 0.5 mL, IntraMUSCular, Prior to discharge insulin lispro, 0-12 Units, SubCUTAneous, q6h ipratropium-albuterol, 3 mL, Nebulization, TID Lidocaine, 1 patch, TransDERmal, Daily nicotine, 1 patch, TransDERmal, Daily pantoprazole, 40 mg, Oral, Nightly Or pantoprazole (ProtoNix) 40 mg in sodium chloride (PF) 0.9 % 10 mL injection, 40 mg, IntraVENous, Nightly [Held by provider] senna-docusate sodium, 1 tablet, Oral, BID [Held by provider] sertraline, 100 mg, Oral, Daily Continuous Infusions:dexmedeTOMIDine, 0.1-1.5 mcg/kg/hr, Last Rate: Stopped (02/05/23 0800) lactated Ringer's, 75 mL/hr, Last Rate: 75 mL/hr (02/05/23 0931) PRN Meds:PRN medications: acetaminophen OR acetaminophen OR acetaminophen, albuterol, dextrose, dextrose, glucagon (rDNA), glucose, hydrOXYzine, [Held by provider] hydrOXYzine pamoate, magnesium sulfate OR magnesium sulfate, ondansetron ODT OR ondansetron ASSESSMENT AND PLAN: 52 y.o. male with acute on chronic respiratory failure now with likely gastroparesis -Pt has return of bowel function. Remove NGT, dc both erythromycin and reglan, can stop suppositories. - Trial CLD and advance as tolerated. -Surgery will sign off, please call with questions or concerns Will discuss with Dr. Héctor Jauregui MD General Surgery 02/05/23 11:18 AM Pager # [phone] This note may have been dictated using [employer] Practice Edition 2.6 and/or [employer] Voice Recognition Feature. The document was proofread; however, unrecognized voice recognition tailor apprentice errors may be present. Associated attestation - Maria Anaya MD - 02/05/2023 11:34 AM EST ~~~~~~~~~~~~~~~~~~~~~~~~~~~~~~~~~~~~~~~~~~~~~~~~~~~~~~~~~~~~~ ATTENDING ADDENDUM Patient Active Problem List Diagnosis Orthopnea Dysphagia Gastroesophageal reflux disease with esophagitis COVID-19 Severe malnutrition (CMS/HCC) (HCC) COPD with acute exacerbation (HCC) Retained food in stomach Pneumothorax on left I independently saw the above patient and reviewed the recent events, imaging, labs, vital signs; Iperformed a physical exam and ROS on the same date of service as above. My findings agree with the above note except for any details corrected below. A complete review of systems was obtained and is negative except as stated in HPI. 52-year-old male with end-stage COPD on 5 L oxygen at home and chronic hypoxemic respiratory failure presents with ileus/gastroparesis of critical illness Multiple Bms Nausea improved today DC NGT ADAT - start with CLD (pending [employer] SALES REPRESENTATIVE recs) Management: No acute surgical invention Recommend Reglan 3 times daily and erythromycin - DC today Recommend to Dulcolax suppositories - PRN Appreciate excellent primary care by MICU team Thank you for this consultation and allowing us to participate in the management of your patient. Please contact me for any concerns or questions regarding the recommendations above. Level of Medical Decision Making: risk of morbidity from additional diagnostic testing or treatmentdue to ileus []High [x]Moderate []Low Complexity: Acute illness with systemic symptoms (MOD) Personally Reviewed/Independently interpreted patient's: [x]Epic notes [x]Radiology studies [x]Labs []EKG []Ordering tests []Other Discussed/ With: [x]Patient/Family []RN []Consultants []SW/TCC []Other I spent total time of 36 minutes reviewing previous notes, test results, and face to face with Luis Steele discussing the diagnosis and importance of compliance with the treatment plan as well as documenting on the day of the visit. Time was spent, Reviewing medical record including recent tests and results Ordering prescription medications/tests and procedures Communicating results to the patient/family/caregiver Counseling/educating the patient/family/caregiver Documenting clinical information the patient's electronic record Coordination of care for the patient Performing a medical appropriate exam and evaluation Maria Anaya MD, FACS Division of Trauma Department of Surgery [facility] ~~~~~~~~~~~~~~~~~~~~~~~~~~~~~~~~~~~~~~~~~~~~~~~~~~~~~~~~~~~~~ This note may have been dictated using [employer] Medical Practice Edition 2.6 and/or [employer] Voice Recognition Feature. The document was proofread; however, unrecognized voice recognition tailor apprentice errors may be present. * Tali Leon, [facility] SALES REPRESENTATIVE - 02/05/2023 10:38 AM EST Images from the original note were not included. Speech-Language Pathology SPEECH LANGUAGE PATHOLOGY [facility] Bedside Swallow Evaluation Patient Name: Luis Steele Evaluation Date: 02/05/2023 Date of : 1970 Admission Date: 01/26/2023 2:45 PM Age: 52 y.o. Room/Bed: T2-/T2 A IMPRESSION: S/s oropharyngeal dysphagia. + overt clinical s/s pulmonary compromise with PO. Risk factors for aspiration include recent extubation, increased RR, odynophagia, h/o of dysphagia, and severe COPD. RECOMMENDATION: Recommend Pureed solids and Thin liquids and meds crushed in puree and the following precautions: - Upright positioning for all PO intake - Slow rate of intake - Small bites/sips - Alternate solid and liquids - Consistent mouth care Pt would benefit from skilled acute [employer] SALES REPRESENTATIVE services to address oropharyngeal dysphagia. Frequency: 3 days/wk for 2 weeks Barriers: Anxiety and Decreased endurance Prognosis: good D/C Recommendations: to be determined Recommend modified barium swallow study (MBSS) to further assess. Subjective Patient alert and cooperative. Seen upright in bedside chair. Answers all basic questions with hoarse vocal quality. Follows all basic commands. No visitors at bedside. Spoke with ADELIA Cardenas who cleared pt to be evaluated. Dysphagia History: Prior MBS completed on 07/02/21 with results indicating Mild oropharyngeal dysphagia. Spillage to pharynx with larger bolus of thin liquids. + vocal cord penetration and flash undercoating of the vocal cords with large drinks. Chin tuck was not effective-continue trace aspiration.Generalized weakness. Recommended Regular diet with thin liquids via single small sips. Prior bedside swallowing evaluations on 01/28 and 01/29 with recommendations for NPO with few ice chips and meds whole in puree due to increased WOB with PO intake. Baseline Diet: Regular, thin Current Diet: Tube Feeding: no Tracheostomy: no Recent Chest Xray/CT of Chest: XR chest 1 view 02/04/2023 Impression 1. Patchy bibasilar atelectasis/infiltrates, mildly increased from prior study 2. Subcutaneous emphysema in the neck.. Report Dictated on Electronically Signed By: Glen Hoffman DR Electronically Signed Date/Time: 02/04/2023 12:15 PM EST Oxygen: Oxygen Therapy: Supplemental oxygen O2 Delivery Method: Nasal cannula O2 Flow Rate (L/min): 6 L/min Past Medical History: Past Medical History: Diagnosis Date Anxiety COPD (chronic obstructive pulmonary disease) (HCC) Diverticulitis Pancreatitis TIA (transient ischemic attack) Pt stated in and in 2014 Past Surgical History: Past Surgical History: Procedure Laterality Date HERNIA REPAIR LUNG LOBECTOMY TONSILLECTOMY (HISTORICAL) UPPER GASTROINTESTINAL ENDOSCOPY 07/10/2021 URETERAL STENT PLACEMENT Right Admission Diagnosis: Patient Active Problem List Diagnosis Date Noted Pneumothorax on left 01/26/2023 Orthopnea 07/10/2021 Gastroesophageal reflux disease with esophagitis 07/10/2021 Retained food in stomach 07/10/2021 Dysphagia 07/01/2021 Severe malnutrition (CMS/HCC) ([facility]) 07/10/2021 COPD with acute exacerbation ([facility]) 04/05/2021 COVID-19 04/04/2021 History of Present Illness: 52 y.o. who presents to the emergency department with acute respiratorydistress, patient has COPD on 5 L nasal cannula at home, we were told by EMS that he is also on thelung transplant list, he comes in tripoding on BiPAP pulse ox 88% tachypneic Patient Complaint: Sore throat from recent extubation Pain: RN managing pain. PPE Worn: gloves Objective Bedside swallow eval completed. Oral Motor Mechanism Facial Movement (CN VII) - WFL Labial Structure/Function (CN VII) - WFL Lingual Structure/Function (CN XII) - Generalized weakness Mandible Structure/Function (CN V) - WFL Sensation - Pt. able to identify touch to all 4 facial quadrants Secretion Management - WFL Volitional Swallow - Present Volitional cough - weak/ineffective, stronger and more effective throat clear Dentition - Minimal remaining dentition Oral Hygiene: moist, clean Swallowing Examination PO Trials - ice chips (teaspoon) - thin liquid (cup edge, straw) - puree (teaspoon) - minced and moist solids - regular solids Oral Phase Pt with adequate oral receipt of PO trials. No anterior spillage. Mastication with regular solids appeared prolonged. Oral transit time appears WFL. No oral residue. Additional Observations: Prolonged mastication may be due to limited remaining dentition. Pharynx appeared inflamed, likely due to recent extubation. Pt reports soreness of throat. Pharyngeal Phase Hyolaryngeal excursion clinically appears adequate and delayed per palpation. 1- 2 swallows palpatedper bolus, likely indicative of adequate pharyngeal clearance. Overt clinical s/s pulmonary compromise with Regular solids as evidenced by delayed cough, increased WOB. Additional Observations: Increased WOB with mastication of regular texture solids. Education Education Given: safety, swallowing strategies, diet recommendations, potential for additional diagnostic testing Given To: patient and RN Response: verbalizes understanding Goals Patient Stated Goal: To eat mashed potatoes and drink Mountain Dew. Encounter Problems Encounter Problems (Active) Swallowing Patient will demonstrate safe swallowing Intervention/techniques Start: 01/28/23 Expected End: 02/11/23 Patient will tolerate recommended food and liquid consistencies without clinical signs and symptomsof aspirations Start: 01/28/23 Expected End: 02/11/23 Patient will participate in instrumental assessment of swallowing as appropriate Start: 01/28/23 Expected End: 02/11/23 Therapy Time [employer] SALES REPRESENTATIVE Individual Minutes Time In: 1016 Time Out: 1031 Minutes: 15 Tali Leon CCC-[employer] SALES REPRESENTATIVE * Shelby Guerra MD - 02/05/2023 5:26 AM EST ICU Progress Note Name: Luis Steele : 1970(52 y.o.) Date: 02/05/23 Team: MICU Attending: Dr. Walter Coats Subjective: Hospital Summary: 52 yo male former smoker with severe COPD, chronic hypoxemic respiratory failure on 5LPM home O2, history of severe ARDS due to MRSA pneumonia and prolonged respiratory failure requiring tracheostomyin 2014 since decannulated, dysphagia, history of TIA, history of GIB, nephrolithiasis. The patient presented to the [place] ED on 01/26/23 with severe respiratory distress and acute onchronic hypoxemia. Portable chest xray demonstrated left lower lateral pneumothorax and a 28Fr chest tube was placed by the ED staff. Due to severe hypoxemia [facility]: no air leak; CT with small anterior left PTX not being accessed by chest tube. Overnight on chest tube inadvertently dislodged. Stable on vent. No recurrence of PTX 01/28: Extubated to salter high flow 15 lpm. Continuing to treat COPD exacerbation and weaning oxygen 01/29: Throughout the day, patient had increasing emphysema in the neck and shoulder regions. Progressed rapidly, leading to neck swelling and compromise of the airway so patient was emergently re-intubated, given an A-line, and sent to [facility] ICU. 01/30: Concern for pleuro-subcutaneous fistula air tracking. CT surgery suggested against emergent surgery at this time and is following. 01/31: Crepitus has improved, and patient was weaned off propofol. CT Sx signed off. 02/02: Extubation attempted today but not successful due to episode of emesis. KUB concerning for SBO vs ileus. Gen surg consulted. CT A/P more suggestive of ileus. Rash noted on patient's backside and lower extremities (picture in media), denies pain/itchiness. 02/03: Extubated without complications. Rash stable, denies symptoms. Had 6-7 liquid bowel movements. 02/04: Tolerating 6-8 L NC. Interval Events: Received Vistaril IM x1 overnight for heightened anxiety. Seems to be in good spirits this morning. Remains on 6L NC. No bowel movements. Nausea improved, has an appetite. Puree dietand thin liquids ordered, per [employer] SALES REPRESENTATIVE. MBS ordered, then advance diet as tolerated. NG out, per gen surg. KUB's improved. Plan to transfer to floor tomorrow. Scheduled Meds: bisacodyl, 10 mg, Rectal, Daily budesonide, 0.5 mg, Nebulization, Daily [Held by provider] buPROPion XL, 300 mg, Oral, Daily enoxaparin, 40 mg, SubCUTAneous, Daily [Held by provider] ferrous sulfate, 325 mg, Oral, Every other day influenza, 0.5 mL, IntraMUSCular, Prior to discharge insulin lispro, 0-12 Units, SubCUTAneous, q6h ipratropium-albuterol, 3 mL, Nebulization, TID Lidocaine, 1 patch, TransDERmal, Daily nicotine, 1 patch, TransDERmal, Daily pantoprazole, 40 mg, Oral, Nightly Or pantoprazole (ProtoNix) 40 mg in sodium chloride (PF) 0.9 % 10 mL injection, 40 mg, IntraVENous, Nightly [Held by provider] senna-docusate sodium, 1 tablet, Oral, BID [Held by provider] sertraline, 100 mg, Oral, Daily Continuous Infusions:dexmedeTOMIDine, 0.1-1.5 mcg/kg/hr, Last Rate: Stopped (02/05/23 0800) lactated Ringer's, 75 mL/hr, Last Rate: 75 mL/hr (02/05/23 0931) Objective: Last Vitals: BP MAP 119/68 (02/05/23 1110) 81 (02/05/23 1110) Arterial BP MAP 114/61 (02/04/23 1300) 79 mmHg (02/04/23 1300) Temp 37.4 C (99.3 F) (02/05/23 1110) Pulse 93 (02/05/23 1110) Resp 22 (02/05/23 1110) SpO2 97 % (02/05/23 1110) Weight 84.5 kg (186 lb 4.6 oz) (02/05/23 0500) BMI Body mass index is 26.73 kg/m . I/O: 02/04 0700 - 02/05 0659 In: 1741.6 [I.V.:1741.6] Out: 2350 [Urine:1810] Ventilator: Ventilation Day(s): 2 Resp Rate (Set): 20 Vt (Set, mL): 400 mL IP Set (cm H2O): 0 cm H2O FiO2 (%): 50 % PEEP/CPAP (cm H2O): 8 cm H20 Inspiratory Time (sec): 0.9 sec Oxygen Delivery: O2 Flow Rate (L/min): 6 L/min Invasive Lines / Tubes / Drains: Peripheral IV 01/26/23 Distal;Posterior;Right Forearm (Active) Number of days: 3 Peripheral IV 01/29/23 Anterior;Left Forearm (Active) Number of days: 0 NG/OG Tube Orogastric Center mouth (Active) Number of days: 0 Urethral Catheter (Active) Number of days: 0 ETT 7 mm (Active) Number of days: 0 Central Line Indication: NA - patient does not have a central line Emerson Indications: Hourly I&Os (Critical Care ONLY) Restraints: Restraints Non-Violent Or Non-Self Destructive Jan 29, 2023 10:34 Pm Est Restraint order already placed. Order is valid for duration of episode. Wounds: Wound/Incision 01/28/23 Incision Back Lateral;Right (Active) Date First Assessed/Time First Assessed: 01/28/23 0800 Primary Wound Type: Incision Location: Back Wound Location Orientation: Lateral;Right Wound Description (Comments): chest tube site, clean dry and intact Constitutional: General Appearance [x]WDWN []Obese []Cachectic []Thin [x]Ill Eyes: Inspection of Pupils/Irises Pupils round and react: [x]Yes []No Sclera: []Icteric [x]Non-Icteric Inspection of Conjunctiva/Lids Conjunctiva: []Injected [x]Non-Injected Lids: [x]Intact []Lesion Present ENT/Mouth: External Inspection of ears/nose [x] Normal [] Scar/Lesion/Mass Inspection of teeth/lips/gums Dentition: [x][place] Teeth []Dentures Lips/Gums: [x]Intact []Lesion Present Mucosa: [x][place] []Moist []Dry Neck: External Appearance Overall Appearance: []Normal [x]Lesion/Mass/Crepitus Present Trachea midline: [x]Yes []No Thyroid []Normal []Enlarged []Tender []Mass []Absent Respiratory: Respiratory effort []Labored [x]Non-Labored [] Mechanically-Ventilated Auscultation []Clear []Crackles [x]Wheezes []Rhonchi Cardiovascular: Auscultation Rate: [x]Regular []Irregular []Tachycardia []Bradycardia Rhythm: [x]Regular []Irregular Murmur: []Present [x]Absent Extremities Peripheral Edema: []Present [x]Absent Varicosities: []Present [x]Absent Gastrointestinal: Abdomen Palpation: [x]Soft []Firm []Tender [x]Non-Tender []Distended [x]Non-distended Mass: []Present [x]Absent Bowel Sounds: [x]Present []Absent Hernia: []Present [x]Absent Liver/Spleen: []Hepatosplenomegaly []Organomegaly Absent Musculoskeletal: Inspection of Digits and Nails Cyanosis: []Present [x]Absent Clubbing: []Present [x]Absent Ischemia: []Present [x]Absent Infection: []Present [x]Absent Extremities SCOTT Equally: Except ([]RUE []RLE []LUE []LLE) Strength/Tone Intact/Normal Except: ([]RUE []RLE []LUE []LLE) Skin: Inspection []Normal []Rash []Lesion []Ulcer Palpation [x]Warm []Cool [x]Dry []Clammy []Nodules []Induration []Skin-tightening Cap-Refill: [x] <3 sec [] >3 seconds (delayed) Neurologic: GCS EYE: 4 - Opens spontaneously GCS MOTOR: 6 - Obeys commands for movement GCS VERBAL: 5 - Oriented to person, place, time Total GCS: 15 [x] Sensation grossly intact Psych: Mental Status Alert: [x]Yes [] No Oriented: []x0 []X1 []X2 [x]x3 Mood/Affect [x]Normal []Flat []Agitated []Depressed []Anxious []Calm []Sedated [x]NAD [facility] within last 24 hours- BMP: Recent Labs 02/03/23 0524 02/04/23 0029 02/05/23 0221 NA 131* 133* 134* K 4.5 4.1 4.0 CL 96* 96* 99 CO2 29 30 27 BUN 28* 25* 17 CREATININE 0.87 0.73 0.69 CALCIUM 8.9 8.5 8.2* LFTs: No results for input(s): AST, ALT, PROT, ALBUMIN, BILITOT, BILIRUBINU, ALKPHOS, LIPASE in the last 72 hours. Glucose: Recent Labs 02/03/23 0524 02/03/23 0914 02/03/23 1530 02/03/23 2053 02/04/23 0029 02/04/23 0335 02/04/23 0926 02/04/23 1429 02/04/23 2141 02/05/23 0221 02/05/23 0324 02/05/23 0748 GLUCOSE 109* -- -- -- 91 -- -- -- -- 72 -- -- POCGLU -- < > 111* 101* -- 91 91 93 82 -- 74 76 < > = values in this interval not displayed. Procal: No results for input(s): PROCAL in the last 72 hours. CBC: Recent Labs 02/03/23 0524 02/03/23 0525 02/04/23 0029 02/04/23 0030 02/05/23 0221 WBC 11.2* -- 10.7 -- 6.8 HGB 10.3* < > 10.4* 11.0 8.8* HCT 32.9* -- 32.3* -- 27.6* PLT 302 -- 322 -- 264 MCV 81.3 -- 81.6 -- 82.1 RDW 17.8* -- 17.0* -- 16.7* < > = values in this interval not displayed. ABGs: Recent Labs 02/03/23 0525 02/04/23 0030 PHART 7.387 7.380 [id number] 49.6* 49.1* PO2ART 74.1* 70.2* [id number] 29.1* 28.4* [id number] Vent Nasal cannula Lactic Acid: No results for input(s): LACTATE in the last 72 hours. INR: No results for input(s): INR in the last 72 hours. Cardiac Injury Profile: No results for input(s): CKTOTAL, CKMB, TROPONINI in the last 72 hours. Labs in Last 3 months: Lab Results Component Value Date TSH 0.183 (L) 01/26/2023 VITD25 16 (L) 04/05/2021 INR 1.0 01/26/2023 Microbiology- Urine Cx: No results found for: URINECX Blood Cx: Lab Results Component Value Date BLOODCX No growth at 5 days 01/26/2023 Sputum Cx: Lab Results Component Value Date RESPCULT Few normal respiratory olayinka. 04/09/2021 Gram Stain: Lab Results Component Value Date LABGRAM 07/06/2021 Many polymorphonuclear cells/lpf. Few epithelial cells/lpf. Many gram negative bacilli. Few gram positive cocci in clusters. Few gram positive bacilli. PNA PCR: Lab Results Component Value Date HUMANMETAPNE Not Detected 01/27/2023 COVID19: No results found for: COVID19 Legionella Ag: No results found for: LEGIONELLAPN Strep Ag: No results for input(s): STREPPNEUMO in the last 72 hours. Imaging- CT 01/29 IMPRESSION: Small left-sided pneumothorax (approximately 15 percent). Moderate emphysema with bilateral lower lobe bronchiectasis. Patchy right upper and lower lobe infiltrates and bibasilar atelectasis. Pneumomediastinum. Bilateral neck and chest subcutaneous emphysema. Electronically Signed By: Walter Pham DO Electronically Signed Date/Time: 01/29/2023 7:52 PM EST CXR 01/29 IMPRESSION: Endotracheal tube with distal tip above the chun. Extensive bilateral subcutaneous emphysema of the chest and neck. Constellation of findings compatible with COPD. Electronically Signed By: Ray Bolaños MD Electronically Signed Date/Time: 01/29/2023 9:45 PM EST XR abdomen 02/02 IMPRESSION: New mild, nonspecific dilation of loops of large and small bowel, possibly related to developing ileus versus small bowel obstruction. Unchanged positioning of the NG/OG catheter. Electronically Signed By: William Bolaños MD Electronically Signed Date/Time: 02/02/2023 1:[address] A/P w/ IV and PO contrast 02/02 IMPRESSION: Gastric and ascending and transverse colon dilatation without small bowel dilatation, nonspecific and possibly related to mild gastric and colonic ileus. Subcutaneous gas/air in the left abdominal and pelvic wall extending anterior to the symphysis pubis known etiology possibly secondary to subcutaneous injection(s) or other instrumentation. Correlatewith clinical parameters. Mild diffuse fatty metamorphosis of liver. No evidence of mass, lymphadenopathy or inflammatory process. Small bilateral pleural effusions, left larger than right, bilateral lower lobe bronchiectasis. Electronically Signed By: Casa Wright MD Electronically Signed Date/Time: 02/02/2023 6:54 PM EST Assessment and Plan: Principal Problem: Pneumothorax on left Active Problems: Orthopnea Assessment: 52 y.o. male with PMHx of severe COPD, chronic hypoxemic respiratory failure on 5LPM home O2, history of severe ARDS due to MRSA pneumonia and prolonged respiratory failure requiring tracheostomy in 2014 since decannulated, dysphagia, history of TIA, history of GIB, nephrolithiasis who arrived at [facility] from [facility] for pleural subcutaneous fistula 2/2 chest tube following pneumothorax. Nearing baselineO2. Ileus improved. Plan: Neuro/psych: - Propofol and fentanyl off - CT head not indicated - Anxiety - Bupropion and Zoloft scheduled, Precedex gtt - Vistaril x2 and Ativan x1 on 02/02, Vistaril IM x1 on 02/04 - Seen by staffing operations manager Cardio/hemodynamic: - Hemodynamically stable without vasopressors/inotropes - BP normotensive. Allow elevated BP while in ICU - 01/29 TTE: EF 50%, no significant finding; overall limited study - EKG's show stable Qtc interval Pulm/resp: - Respiratory Failure Type III (arnol-op/threatened airway/high sedation need) - CT surgery signed off - Daily CXR improving - Subcutaneous emphysema greatly improved - Duonebs TID scheduled - Continue weaning from supp O2 GI: - Indication for stress ulcer prophylaxis: Not indicated - KUB 02/02 showed concern for SBO vs ileus - CT A/P 02/02 showed nonspecific gastric, ascending and descending colon dilation without small bowel dilation that is likely related to mild gastric/colonic ileus - KUB 02/04 with mod bowel dilation - Gen surgery consulted - Daily KUBs - greatly improved - Discontinue suppositories - NG tube out - Discontinued Reglan 5 mg TID and Erythromycin 250 mg Renal/: - Fluids: Bolus fluids PRN - I/O Goal ID: - Source: none - Cultures NGTD pending - Leukocytosis in the setting of steroids improved - Rash stable on back and lower extremities since 02/02 (see media) - Patient denies itchiness/pain from rash. Likely drug reaction Endo: - Insulin: ICS PRN - Steroids: solumedrol Heme: - ppx: enox - Hgb/plt stable - Daily labs: CBC, BMP, BG GI Prophylaxis: Pantoprazole IV DVT Prophylaxis: SCDs Disposition: Remain in ICU Status Critical Care Time: 55 Total critical care time caring for this patient with life threatening, unstable organ failure, including direct patient contact, management of life support systems, review of data including imaging and labs, discussions with other team members and physicians, excluding procedures. Associated attestation - Walter Coats DO - 02/05/2023 1:05 PM EST I have personally performed a [id number] diagnostic evaluation on this patient on date of esvaats89/25/23. History, labs, imaging studies, and electronic medical record have been reviewed by me. This note documented by the [x]warehouse driver []TAM reflects my history, exam, and medical decision making. I have reviewed and agree with the care plan. Changes were made in the orders as necessary. ROS documentation was reviewed and negative unless otherwise stated in HPI. Additional pertinent interval history, ROS, and physical exam findings: Constitutional: General Appearance [x]WDWN []Obese []Cachectic []Thin [x]Ill Eyes: Inspection of Pupils/Irises Pupils round and react: [x]Yes []No Sclera: []Icteric [x]Non-Icteric Inspection of Conjunctiva/Lids Conjunctiva: []Injected [x]Non-Injected Lids: [x]Intact []Lesion Present ENT/Mouth: External Inspection of ears/nose [x] Normal [] Scar/Lesion/Mass Inspection of teeth/lips/gums Dentition: [x][place] Teeth []Dentures Lips/Gums: [x]Intact []Lesion Present Mucosa: [x][place] []Moist []Dry Neck: External Appearance Overall Appearance: []Normal [x]Lesion/Mass/Crepitus Present Trachea midline: [x]Yes []No Thyroid []Normal []Enlarged []Tender []Mass []Absent Respiratory: Respiratory effort []Labored [x]Non-Labored [] Mechanically-Ventilated Auscultation []Clear []Crackles [x]Wheezes []Rhonchi Cardiovascular: Auscultation Rate: [x]Regular []Irregular []Tachycardia []Bradycardia Rhythm: [x]Regular []Irregular Murmur: []Present [x]Absent Extremities Peripheral Edema: []Present [x]Absent Varicosities: []Present [x]Absent Gastrointestinal: Abdomen Palpation: [x]Soft []Firm []Tender [x]Non-Tender []Distended [x]Non-distended Mass: []Present [x]Absent Bowel Sounds: [x]Present []Absent Hernia: []Present [x]Absent Liver/Spleen: []Hepatosplenomegaly []Organomegaly Absent Musculoskeletal: Inspection of Digits and Nails Cyanosis: []Present [x]Absent Clubbing: []Present [x]Absent Ischemia: []Present [x]Absent Infection: []Present [x]Absent Extremities SCOTT Equally: Except ([]RUE []RLE []LUE []LLE) Strength/Tone Intact/Normal Except: ([]RUE []RLE []LUE []LLE) Skin: Inspection []Normal []Rash []Lesion []Ulcer Palpation [x]Warm []Cool [x]Dry []Clammy []Nodules []Induration []Skin-tightening Cap-Refill: [x] <3 sec [] >3 seconds (delayed) Neurologic: GCS EYE: 4 - Opens spontaneously GCS MOTOR: 6 - Obeys commands for movement GCS VERBAL: 5 - Oriented to person, place, time Total GCS: 15 [x] Sensation grossly intact Psych: Mental Status Alert: [x]Yes [] No Oriented: []x0 []X1 []X2 [x]x3 Mood/Affect [x]Normal []Flat []Agitated []Depressed []Anxious []Calm []Sedated [x]NAD As per Dr. Guerra's A/P. Patient appears to be doing much better today as his ileus is resolving. He is now's sitting up in a chair and able to take p.o. per recommendations from speech therapy. An MBS has been ordered. NG tube has been taken out, the IV erythromycin and Reglan have been DC'd per surgery recommendations. We will continue with our pulmonary support, and monitor his his GI status. We appreciate input from general surgery. Will elect to monitor in the ICU and follow for continued improvement. Total critical care time for this patient with life-threatening unstable organ failure, including direct patient contact, management of life support systems, review of data including imaging and labs, and discussions with other team members and physicians at least 32 minutes so far today, excludingprocedures. * Dayami Koenig RCP - 02/04/2023 7:46 PM EST [facility] Respiratory Care Department Progress Note As part of the Respiratory Assessment Program (RAP), the following Respiratory Therapist evaluationhas been completed, including a chart review and clinical/physical assessment. Respiratory Therapist RAP Evaluation Guideline Points 0 1 2 3 4 Points Strongly Consider History Factor No Pulmonary conditions Stable Pulmonary condition(s) Surgery or Intervention that may impact Pulmonary system (at risk) Surgery or Intervention that is impacting Pulmonary system Active Exacerbation of Pulmonary Condition 4 Respiratory Pattern Regular, RR= 12-18 SHAHID or Increased RR= 19-24 Irregular, or RR= 25-30 SOB, talk in short sentences, or RR= 31-35 Severe SOB, accessory muscle use, one word answers, or RR>35 0 Aerosol Med(s), High Flow O2 Breath Sounds Clear Diminished in 1 lobe Diminished in ? 2 lobes Adventitious breath sounds Coarse crackles, Wheezes, or Diminished in >2 lobes 3 Aerosol Med(s), Bronchial Hygiene, Hyperinflation Cough & Sputum Strong cough, no secretion retention or production Weak cough, no secretion retention or production Weak cough, w/ production (less often than Q2hr), or secretion retention No cough, w/ secretion retention or production (less often than Q2hr) Significant secretion production (more often than Q2hr) or mucus plug 0 Aerosol Med(s), Bronchial Hygiene, Hyperinflation Level of Activity Ambulatory Ambulatory with Assist Up in chair or edge of bed (dangle) Non-ambulatory, bedridden with active ROM Completely paralyzed or without active ROM 1 Triage 5 0-2 Triage 4 3-5 Triage 3 6-10 Triage 2 11-14 Triage 1 ?15 Total 8 Triage Score = 3 TRIAGE SCORING - SUGGESTED FREQUENCIES Aerosol Therapy Bronchial Hygiene Hyperinflation Triage Score Q4h & PRN 1 Q4hWA (QID) & PRN 2 TID & PRN 3 BID & PRN 4 PRN 5 Therapy(s) Indicated Yes/No Aerosol Medication yes Hyperinflation yes Bronchial Hygiene yes High Flow Oxygen no Flow Rates PEF (L/Sec) IVC FVC FEV1 FEV1/FVC Patient instructed and returned demonstration on use of MDI (with spacer, as appropriate) RT to enter/modify frequency of treatment order in EMR/EHR to match this RAP evaluation. Based on this RAP evaluation the following therapy is being initiated: duoneb, pulm, IS, ambulation, coughing/ deep breathing At the following frequency: tid and prn Comments: Thank you for involving Respiratory in the care of this patient, * Ryan Coates - 02/04/2023 4:00 PM EST Spiritual Care Note [facility] Palliative Care Patient Name:Luis Steele Chief Complaint: Chief Complaint Patient presents with Shortness of Breath Reason for visit: Follow Up Services Provided To:patient Background and visit note: Patient resting in bed. Patient has been extubated and appears not to be in stress. Patient shared that he was glad to be extubated and was hoping that he would continue to improve. Provided words ofencouragement and supportive prayer. A total of 155 minutes was spent with this encounter includingvisitation and documentation. Is there spiritual distress? YES Comment: Patient anxious about his condition. Care Plan/Recommendations: Interventions: spiritual support provided, emotional support provided, validated feelings, and alleviation of fear and anxiety. Care Plan: regain a sense of hope/optimism, find peace/acceptance, and connect to higher power. Follow Up: PRN. Additional: N/A Debriefed: N/A. Ryan Coates 02/04/23 * Dayami Nelson - 02/04/2023 2:47 PM EST Images from the original note were not included. PHYSICAL THERAPY [facility] Initial Evaluation Name/MRN: Luis Steele ([id number]) Evaluation Date: 02/04/2023 Date of : 1970 Admission Date: 01/26/2023 2:45 PM Age: 52 y.o. Room/Bed: T2-201/T2-201 A Discharge Recommendation: Inpatient Rehab and Continue to assess pending progress Equipment Needed: TBD at next level of care Assessment IMPRESSION: Pt admitted to [facility] for L pneumothorax and COPD exacerbation. Pt performed all bed mobility with Min A to CGA and Min A for transfers. Pt O2 sats ranged from 91 to 93% during session. Pt tolerated sitting EOB for a total of 7 minutes and standing for ~ 45s. Pt was apprehensive of trying to get to chair. Pt likely to progress quickly due to good overall strength. Pt displays decreased endurance and balance thus decreasing overall functional mobility. Continued PT services required to allow pt to return to prior level of function. Recommends discharge to IP Rehab. Diagnosis: L Pneumothorax. COPD Exacerbation Prognosis: good Performance Deficits /Impairments: Decreased Functional Mobility, Decreased ADL status, Decreased Endurance, and Decreased Balance Decision Making: Medium Complexity Subjective Pt willing to try to sit at EOB and Stand. Pain: Rice-[place]ues[place] Pain Ratin = Hurts a little bit Pain Location: Chest Past Medical History: Past Medical History: Diagnosis Date Anxiety COPD (chronic obstructive pulmonary disease) (HCC) Diverticulitis Pancreatitis TIA (transient ischemic attack) Pt stated in and in 2014 Past Surgical History: Past Surgical History: Procedure Laterality Date HERNIA REPAIR LUNG LOBECTOMY TONSILLECTOMY (HISTORICAL) UPPER GASTROINTESTINAL ENDOSCOPY 07/10/2021 URETERAL STENT PLACEMENT Right Admission Diagnosis: Patient Active Problem List Diagnosis Date Noted Pneumothorax on left 01/26/2023 Orthopnea 07/10/2021 Gastroesophageal reflux disease with esophagitis 07/10/2021 Retained food in stomach 07/10/2021 Dysphagia 07/01/2021 Severe malnutrition (CMS/HCC) ([facility]) 07/10/2021 COPD with acute exacerbation ([facility]) 04/05/2021 COVID-19 04/04/2021 Medical Precautions: No active isolations Proper PPE donned/doffed in accordance with facility standards. Fall Risk: [place] Fall Risk Score: 35 (Medium Risk) Precautions/Restrictions: Lines/Drains/Airways: PIV, Tele, NC 02 Family/Caregiver Present: none Overall Cognitive Status: WNL Overall Orientation Status: Oriented x4 Vision: not assessed this session Hearing: normal Social/Functional History Patient admitted from home. 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 Pt required min assist at the end of movement to allow RN to perform arnol-care Transfers Sit to stand: Min Assist, x2 Person Assist Stand to sit: Min Assist, x2 Person Assist Pt required assist with initiating transfer Pt maintained proper posture and forward gaze. Ambulation Did not assess this session. Balance: Posture: fair Sitting - Static: Supervision Sitting - Dynamic: Supervision Standing - Static: Min Assist, x2 Person Assist Standing - Dynamic: Min Assist, x2 Person Assist Outcome Measures AM-PAC How much HELP from another person do you currently need Turning from your back to your side while in a flat bed without using bedrails?: None Moving from lying on your back to sitting on the side of a flat bed without using bedrails?: A Little Moving to and from a bed to a chair (including a wheelchair)?: A Little Standing up from a chair using your arms (wheelchair or bedside chair)?: A Little Walking in a hospital room?: A Little AM-PAC Inpatient Mobility Raw Score (No Stairs) : 16 JH-HLM -HLM Score: Sat at edge of bed Plan Pt would benefit from skilled acute PT services to address Strengthening, Balance Training, Functional Mobility Training, Endurance Training, and Gait Training. Frequency: 3x/week for 2 weeks Barriers: Pain, No family support, Limited family support, and No caregiver support Safety/Education Safety Safety Devices in place: left in bed, gait belt, and patient at risk for falls Restraints: No Education Education Given To: patient Education Provided: PT Role, PT Goals, Gait Training, Transfer Training, Energy Conservation, and Benefits of Increasing Activity Education Method: Verbal Barriers to Learning: None Education Outcome: Verbalized Understanding Goals Patient Stated Goal: To get stronger Encounter Problems Encounter Problems (Active) Balance Patient will maintain dynamic standing balance for 5 minutes with modified independence in order todemonstrate decreased risk of falling. Start: 02/04/23 Expected End: 02/18/23 Mobility Patient will ambulate 50 feet with modified independence and least restrictive device in order to improve safety and independence with mobility. Start: 02/04/23 Expected End: 02/18/23 Transfers Patient will perform bed mobility with modified independence in order to improve independence and prepare for out of bed mobility. Start: 02/04/23 Expected End: 02/18/23 Patient will complete functional transfer with least restrictive device with modified independence in order to prepare for ambulation. Start: 02/04/23 Expected End: 02/18/23 Therapy Time Individual Co-treatment Time In 1406 Time Out 1420 Minutes 14 Dayamielisa Nelson Patient's Physical Therapy Plan of Care supervision is transferred to a [facility] Therapy Services Physical Therapist. Goals and/or treatment plan was established in collaboration with patient/family/other representatives. * Candice Vergara RD - 02/04/2023 12:52 PM EST Nutrition Assessment Type and Reason for Visit: Reassess Nutrition Recommendations/Plan: Continue NPO. If pt is expected to remain NPO in setting of ileus, may need TPN. Recommend for Initial TPN if indicated: 125g protein (500 kcals), 595 dextrose kcals, 465 lipid kcals = 1560 kcals = 20 kcals/kg + 1.6g protein/kg IBW. Monitor nutritional status. Malnutrition Assessment: Malnutrition Status: At risk for malnutrition (Comment) Context: Acute Illness Findings of the 6 clinical characteristics of malnutrition: Energy Intake: 50% or less of estimated energy requirements for 5 or more days Weight Loss: No significant weight loss Body Fat Loss: Unable to assess Muscle Mass Loss: Unable to assess Fluid Accumulation: Mild Extremities (per flowsheet) Convertible Sofa Bedspring Tester Strength: Not Performed Nutrition Assessment: Pt is a 52 year old male with PMH that includes severe COPD (former smoker), chronic hypoxemic respiratory failure on 5LPM home O2, history of severe ARDS due to MRSA pneumonia and prolonged respiratory failure requiring tracheostomy in 2015 since decannulated, dysphagia, history of TIA, history ofGIB, nephrolithiasis who presented to [place] ED on 01/26/23 with severe respiratory distress andacute on chronic hypoxemia. CXR demonstrated left lower lateral pneumothorax and a 28Fr chest tube was placed by the ED staff. Due to severe hypoxemia the patient was intubated and admitted to the [facility] ICU. On 01/28 the patient was extubated to [place] high flow 15 LPM. He then developed rapid neck and facial swelling so he was intubated emergently on 01/29 and transferred to [facility] for concern for pleural fistula. Pt was found with diffuse subcutaneous emphysema noted, unable to open eyes due to this. CT chest with small left-sided pneumothorax approximately 15%, moderate emphysema, pneumomediastinum, extensive bilateral neck and chest subcutaneous emphysema. Subcutaneus emphysema improving. TFwas at goal 01/31/23 (Vital HP at 40 ml/hr). Pt is now extubated (02/03/23); presenting with ileus/gastroparesis of critical illness.KUB today (02/04) notes: An NG tube is in place with its tip in the stomach. There is moderate small bowel dilatation. This is unchanged. Air is noted in nondistended loops of colon. NG continues to suction. Pt had 6-7 liquid bowel movements yesterday (02/03) per MD notes. Estimated Daily Nutrient Needs: Energy Requirements Based On: Kcal/kg Weight Used for Energy Requirements: [place] Weight for Energy Calculation (kg): 78 kg Total Energy Requirements (kcals/day): 2392-3120 (25-30 kcal/kg IBW) Weight Used for Protein Requirements: [place] Weight in Kg Used for Protein Requirements: 78 kg Estimated Total Protein (g/day): 117-156 (1.5-2.0 g protein/kg IBW) Estimated Daily Total Fluid (ml/day): per MD Nutrition Related Findings: +BS, abd tender, trace BUE edema, non-pitting RLE edema. 6-7 loose BMs overnight per MD notes. Wound Type: None Net IO Since Admission: -2,027.02 mL [02/04/23 1252] Current Nutrition Therapies: No diet orders on file Current Oral Intake Average Meal Intake: NPO Average Supplements Intake: NPO Additional Calorie Sources Additional Calorie Sources: +131 kcals from propofol (decreased rate d/t hypotension) Anthropometric Measures: Height: 177.8 cm (5' 10) Current Body Weight: 85.2 kg (187 lb 13.3 oz) (02/03/23; previous weight 81.6kg) Weight Source: Bed Scale Admission Body Weight: 84.1 kg (185 lb 6.5 oz) Usual Body Weight: 73 kg (161 lb) (157.4# 02/10/22; 161# 09/06/22; 168.9# 10/19/22; 171.7# 11/13/22) % Weight Change (Calculated): 15.2 [place] Body Weight (lbs) (Calculated): 166 lbs [place] Body Weight (Kg) (Calculated): 75 kg % [place] Body Weight (Calculated): 113.2 % BMI (kg/m2) (Calculated): 27 BMI Categories: Overweight (BMI 25.0-29.9) Wt Readings from Last 10 Encounters: 02/03/23 85.2 kg (187 lb 13.3 oz) 11/27/22 77.1 kg (170 lb) LABS: Recent Labs 02/02/23 0326 02/03/23 0524 02/04/23 0029 NA 133* 131* 133* K 3.9 4.5 4.1 CL 97* 96* 96* CO2 29 29 30 BUN 32* 28* 25* CREATININE 0.75 0.87 0.73 GLUCOSE 171* 109* 91 CALCIUM 8.6 8.9 8.5 Nutrition Diagnosis: Inadequate energy intake related to altered GI function as evidenced by NPO or clear liquid status due to medical condition (ileus) related to as evidenced by Nutrition Interventions: Nutrition Education/Counseling: No recommendation at this time Coordination of Nutrition Care: Continue to monitor while inpatient Plan of Care discussed with: .. Goals: Goals: Initiate nutrition support, within 2 days Nutrition Monitoring and Evaluation: Behavioral-Environmental Outcomes: None Identified Food/Nutrient Intake Outcomes: Parenteral Nutrition Intake/Tolerance Physical Signs/Symptoms Outcomes: Biochemical Data, Nausea or Vomiting, Skin, Weight, Chewing or Swallowing, Nutrition Focused Physical Findings, Meal Time Behavior, Hemodynamic Status Discharge Planning: Too soon to determine Candice Vergara RD,LD,[facility] Contact: *[phone] or Taplet Chat * Anselmo Jauregui MD - 02/04/2023 10:59 AM EST Images from the original note were not included. Department of General Surgery Daily Progress Note ADMIT DATE: 01/26/2023 TODAY'S DATE: 02/04/2023 SUBJECTIVE: Extubated, had multiple bowel movements overnight but still feels nauseous and does notwant tube pulled, does not want tube feeds or anything to eat ROS: Noted above unless otherwise mentioned OBJECTIVE: VITALS: Temp: [36.7 C (98.1 F)-37.5 C (99.5 F)] 36.7 C (98.1 F) Heart Rate: [66-95] 81 Resp: [11-24] 12 Arterial Line BP 1: (100-148)/(56-118) 106/56 FiO2 (%): [50 %] 50 % INTAKE/OUTPUT: Intake/Output Summary (Last 24 hours) at 02/04/2023 1059 Last data filed at 02/04/2023 0700 Gross per 24 hour Intake 867 ml Output 1230 ml Net -363 ml I/O last 3 completed shifts: In: 886 (10.4 mL/kg) [I.V.:836 (9.8 mL/kg); NG/GT:50] Out: 2620 (30.8 mL/kg) [Urine:1895 (0.6 mL/kg/hr); Emesis/NG output:725] Weight: 85.2 kg I/O this shift: In: 444 [I.V.:444] Out: 320 [Urine:210; Emesis/NG output:110] PHYSICAL EXAM: CONSTITUTIONAL: awake, alert, NAD NECK: Supple, symmetrical, trachea midline LUNGS: 6L NC CARDIOVASCULAR: HR and BP stable ABDOMEN: Soft, moderately distended, minimally tender CHEST: no masses palpated, non-tender GENITAL/URINARY: Not examined MUSCULOSKELETAL: There is no redness, warmth, or swelling of the joints. NEUROLOGIC: Awake, alert, oriented to name, place and time. SKIN: normal skin color, texture, no redness, warmth, or swelling LABS CBC: Auto WBC Date Value Ref Range Status 02/04/2023 10.7 3.6 - 10.7 10*3/uL Final 02/03/2023 11.2 (H) 3.6 - 10.7 10*3/uL Final 02/02/2023 6.3 3.6 - 10.7 10*3/uL Final Hgb, blood gas Date Value Ref Range Status 02/04/2023 11.0 Screen Only g/dl Final 02/03/2023 11.3 Screen Only g/dl Final 02/02/2023 10.8 Screen Only g/dl Final Hemoglobin Date Value Ref Range Status 02/04/2023 10.4 (L) 13.0 - 18.0 g/dL Final 02/03/2023 10.3 (L) 13.0 - 18.0 g/dL Final 02/02/2023 10.0 (L) 13.0 - 18.0 g/dL Final Platelets Date Value Ref Range Status 02/04/2023 322 140 - 440 10*3/uL Final 02/03/2023 302 140 - 440 10*3/uL Final 02/02/2023 247 140 - 440 10*3/uL Final BMP: SODIUM Date Value Ref Range Status 02/04/2023 133 (L) 135 - 145 mmol/L Final 02/03/2023 131 (L) 135 - 145 mmol/L Final 02/02/2023 133 (L) 135 - 145 mmol/L Final POTASSIUM Date Value Ref Range Status 02/04/2023 4.1 3.5 - 5.1 mmol/L Final 02/03/2023 4.5 3.5 - 5.1 mmol/L Final 02/02/2023 3.9 3.5 - 5.1 mmol/L Final CHLORIDE Date Value Ref Range Status 02/04/2023 96 (L) 98 - 107 mmol/L Final 02/03/2023 96 (L) 98 - 107 mmol/L Final 02/02/2023 97 (L) 98 - 107 mmol/L Final CARBON DIOXIDE Date Value Ref Range Status 02/04/2023 30 22 - 30 mmol/L Final 02/03/2023 29 22 - 30 mmol/L Final 02/02/2023 29 22 - 30 mmol/L Final UREA NITROGEN Date Value Ref Range Status 02/04/2023 25 (H) 9 - 20 mg/dL Final 02/03/2023 28 (H) 9 - 20 mg/dL Final 02/02/2023 32 (H) 9 - 20 mg/dL Final CREATININE Date Value Ref Range Status 02/04/2023 0.73 0.66 - 1.25 mg/dL Final 02/03/2023 0.87 0.66 - 1.25 mg/dL Final 02/02/2023 0.75 0.66 - 1.25 mg/dL Final 07/11/2021 0.90 0.52 - 1.25 mg/dL Final 07/08/2021 0.88 0.52 - 1.25 mg/dL Final 07/07/2021 0.66 0.52 - 1.25 mg/dL Final Hepatic: AST (SGOT) Date Value Ref Range Status 01/29/2023 40 15 - 46 U/L Final 01/29/2023 70 (H) 15 - 46 U/L Final 01/28/2023 42 15 - 46 U/L Final ALT Date Value Ref Range Status 01/29/2023 31 0 - 49 U/L Final 01/29/2023 35 0 - 49 U/L Final 01/28/2023 23 0 - 49 U/L Final ALBUMIN Date Value Ref Range Status 01/29/2023 4.5 3.5 - 5.0 g/dL Final 01/29/2023 4.3 3.5 - 5.0 g/dL Final 01/28/2023 3.9 3.5 - 5.0 g/dL Final BILIRUBIN, TOTAL Date Value Ref Range Status 01/29/2023 1.0 0.2 - 1.3 mg/dL Final 01/29/2023 0.6 0.2 - 1.3 mg/dL Final 01/28/2023 0.3 0.2 - 1.3 mg/dL Final ALKALINE PHOSPHATASE Date Value Ref Range Status 01/29/2023 44 38 - 126 U/L Final 01/29/2023 43 38 - 126 U/L Final 01/28/2023 40 38 - 126 U/L Final Current Inpatient Medications Scheduled Meds:bisacodyl, 10 mg, Rectal, Daily budesonide, 0.5 mg, Nebulization, Daily [Held by provider] buPROPion XL, 300 mg, Oral, Daily enoxaparin, 40 mg, SubCUTAneous, Daily erythromycin, 250 mg, IntraVENous, q8h [Held by provider] ferrous sulfate, 325 mg, Oral, Every other day [Held by provider] guaiFENesin, 200 mg, Oral, q8h influenza, 0.5 mL, IntraMUSCular, Prior to discharge insulin lispro, 0-12 Units, SubCUTAneous, q6h ipratropium-albuterol, 3 mL, Nebulization, Q4H Lidocaine, 1 patch, TransDERmal, Daily metoclopramide, 5 mg, IntraVENous, TID nicotine, 1 patch, TransDERmal, Daily pantoprazole, 40 mg, Oral, Nightly Or pantoprazole (ProtoNix) 40 mg in sodium chloride (PF) 0.9 % 10 mL injection, 40 mg, IntraVENous, Nightly [Held by provider] senna-docusate sodium, 1 tablet, Oral, BID [Held by provider] sertraline, 100 mg, Oral, Daily Continuous Infusions:dexmedeTOMIDine, 0.1-1.5 mcg/kg/hr, Last Rate: 0.4 mcg/kg/hr (02/04/23 0730) PRN Meds:PRN medications: acetaminophen OR acetaminophen OR acetaminophen, albuterol, dextrose, dextrose, glucagon (rDNA), glucose, HYDROmorphone, [Held by provider] hydrOXYzine pamoate, magnesium sulfate OR magnesium sulfate, ondansetron ODT OR ondansetron, [Held by provider] oxyCOD ONE, perflutren protein A microsphere (Optison) 3 mL in sodium chloride (PF) 0.9 % 10 mL IV syringe, potassium chloride CR OR potassium chloride OR potassium chloride, sodium phosphate in D5 OR sodium phosphate in D5 OR sodium phosphate in D5 ASSESSMENT AND PLAN: 52 y.o. male with acute on chronic respiratory failure now with likely gastroparesis -Would give pt another day of NGT and npo given his ongoing nausea and hesitancy toward oral intake. -Continue erythromycin and Reglan -Maintain NG tube for decompression -Daily Dulcolax suppositories, Daily KUB Will discuss with Dr. Héctor Jauregui MD General Surgery 02/04/23 10:59 AM Pager # [phone] This note may have been dictated using [employer] Medical Practice Edition 2.6 and/or [employer] Voice Recognition Feature. The document was proofread; however, unrecognized voice recognition tailor apprentice errors may be present. Associated attestation - Maria Anaya MD - 02/04/2023 11:38 AM EST ~~~~~~~~~~~~~~~~~~~~~~~~~~~~~~~~~~~~~~~~~~~~~~~~~~~~~~~~~~~~~ ATTENDING ADDENDUM Patient Active Problem List Diagnosis Orthopnea Dysphagia Gastroesophageal reflux disease with esophagitis COVID-19 Severe malnutrition (CMS/HCC) (HCC) COPD with acute exacerbation (HCC) Retained food in stomach Pneumothorax on left I independently saw the above patient and reviewed the recent events, imaging, labs, vital signs; Iperformed a physical exam and ROS on the same date of service as above. My findings agree with the above note except for any details corrected below. A complete review of systems was obtained and is negative except as stated in HPI. 52-year-old male with end-stage COPD on 5 L oxygen at home and chronic hypoxemic respiratory failure presents with ileus/gastroparesis of critical illness +BM Complains of distention and nausea Cont NGT today NPO KUB - mod small bowel dilation Management: No acute surgical invention Recommend Reglan 3 times daily and erythromycin Recommend to Dulcolax suppositories Serial abdominal exams NPO/NGT (place if extubating, OG in now) Appreciate excellent primary care by MICU team Level of Medical Decision Making: risk of morbidity from additional diagnostic testing or treatmentdue to Ileus []High [x]Moderate []Low Complexity: Acute illness with systemic symptoms (MOD) Personally Reviewed/Independently interpreted patient's: [x]Epic notes [x]Radiology studies [x]Labs []EKG []Ordering tests []Other Discussed/ With: [x]Patient/Family []RN []Consultants []SW/TCC []Other I spent total time of 41 minutes reviewing previous notes, test results, and face to face with Luis Steele discussing the diagnosis and importance of compliance with the treatment plan as well as documenting on the day of the visit. Time was spent, Reviewing medical record including recent tests and results Ordering prescription medications/tests and procedures Communicating results to the patient/family/caregiver Counseling/educating the patient/family/caregiver Documenting clinical information the patient's electronic record Coordination of care for the patient Performing a medical appropriate exam and evaluation Maria Anaya MD, FACS Division of Trauma Department of Surgery [facility] ~~~~~~~~~~~~~~~~~~~~~~~~~~~~~~~~~~~~~~~~~~~~~~~~~~~~~~~~~~~~~ This note may have been dictated using [employer] Medical Practice Edition 2.6 and/or [employer] Voice Recognition Feature. The document was proofread; however, unrecognized voice recognition tailor apprentice errors may be present. * Shelby Guerra MD - 02/04/2023 5:19 AM EST ICU Progress Note Name: Luis Steele : 1970(52 y.o.) Date: 02/04/23 Team: MICU Attending: Dr. Walter Coats Subjective: Hospital Summary: 52 yo male former smoker with severe COPD, chronic hypoxemic respiratory failure on 5LPM home O2, history of severe ARDS due to MRSA pneumonia and prolonged respiratory failure requiring tracheostomyin 2014 since decannulated, dysphagia, history of TIA, history of GIB, nephrolithiasis. The patient presented to the [place] ED on 01/26/23 with severe respiratory distress and acute onchronic hypoxemia. Portable chest xray demonstrated left lower lateral pneumothorax and a 28Fr chest tube was placed by the ED staff. Due to severe hypoxemia [facility]: no air leak; CT with small anterior left PTX not being accessed by chest tube. Overnight on chest tube inadvertently dislodged. Stable on vent. No recurrence of PTX 01/28: Extubated to salter high flow 15 lpm. Continuing to treat COPD exacerbation and weaning oxygen 01/29: Throughout the day, patient had increasing emphysema in the neck and shoulder regions. Progressed rapidly, leading to neck swelling and compromise of the airway so patient was emergently re-intubated, given an A-line, and sent to [facility] ICU. 01/30: Concern for pleuro-subcutaneous fistula air tracking. CT surgery suggested against emergent surgery at this time and is following. 01/31: Crepitus has improved, and patient was weaned off propofol. CT Sx signed off. 02/02: Extubation attempted today but not successful due to episode of emesis. KUB concerning for SBO vs ileus. Gen surg consulted. CT A/P more suggestive of ileus. Rash noted on patient's backside and lower extremities (picture in media), denies pain/itchiness. 02/03: Extubated without complications. Rash stable, denies symptoms. Interval Events: No acute events overnight, on 6-8 L NC. Had 6-7 liquid bowel movements yesterday. Patient feeling nauseous and politely refusing PO meds (Wellbutrin, Zoloft, Senna). Will likely not undergo swallow eval today due to nausea. Desires to be seen by pastoral services again to discuss the recent passing of his father. Scheduled Meds: bisacodyl, 10 mg, Rectal, Daily budesonide, 0.5 mg, Nebulization, Daily [Held by provider] buPROPion XL, 300 mg, Oral, Daily enoxaparin, 40 mg, SubCUTAneous, Daily erythromycin, 250 mg, IntraVENous, q8h [Held by provider] ferrous sulfate, 325 mg, Oral, Every other day [Held by provider] guaiFENesin, 200 mg, Oral, q8h influenza, 0.5 mL, IntraMUSCular, Prior to discharge insulin lispro, 0-12 Units, SubCUTAneous, q6h ipratropium-albuterol, 3 mL, Nebulization, Q4H Lidocaine, 1 patch, TransDERmal, Daily metoclopramide, 5 mg, IntraVENous, TID nicotine, 1 patch, TransDERmal, Daily pantoprazole, 40 mg, Oral, Nightly Or pantoprazole (ProtoNix) 40 mg in sodium chloride (PF) 0.9 % 10 mL injection, 40 mg, IntraVENous, Nightly [Held by provider] senna-docusate sodium, 1 tablet, Oral, BID [Held by provider] sertraline, 100 mg, Oral, Daily Continuous Infusions:dexmedeTOMIDine, 0.1-1.5 mcg/kg/hr, Last Rate: 0.4 mcg/kg/hr (02/04/23 0730) Objective: Last Vitals: BP MAP 97/57 (02/02/231999) 70 (02/02/231999) Arterial BP MAP 109/58 (02/04/231099) 74 mmHg (02/04/231099) Temp 36.5 C (97.7 F) (02/04/23 08) Pulse 76 (02/04/23 1100) Resp 14 (02/04/231099) SpO2 94 % (02/04/231099) Weight 85.2 kg (187 lb 13.3 oz) (02/03/23 05) BMI Body mass index is 26.95 kg/m . I/O: 02/03 700 - 02/04 659 In: 423 [I.V.:373] Out: 1410 [Urine:1135] Ventilator: Ventilation Day(s): 2 Resp Rate (Set): 20 Vt (Set, mL): 400 mL IP Set (cm H2O): 0 cm H2O FiO2 (%): 50 % PEEP/CPAP (cm H2O): 8 cm H20 Inspiratory Time (sec): 0.9 sec Oxygen Delivery: O2 Flow Rate (L/min): 6 L/min Invasive Lines / Tubes / Drains: Peripheral IV 01/26/23 Distal;Posterior;Right Forearm (Active) Number of days: 3 Peripheral IV 01/29/23 Anterior;Left Forearm (Active) Number of days: 0 NG/OG Tube Orogastric Center mouth (Active) Number of days: 0 Urethral Catheter (Active) Number of days: 0 ETT 7 mm (Active) Number of days: 0 Central Line Indication: NA - patient does not have a central line Emerson Indications: Hourly I&Os (Critical Care ONLY) Restraints: Restraints Non-Violent Or Non-Self Destructive Jan 29, 2023 10:34 Pm Est Restraint order already placed. Order is valid for duration of episode. Wounds: Wound/Incision 01/28/23 Incision Back Lateral;Right (Active) Date First Assessed/Time First Assessed: 01/28/23799 Primary Wound Type: Incision Location: Back Wound Location Orientation: Lateral;Right Wound Description (Comments): chest tube site, clean dry and intact Constitutional: General Appearance [x]WDWN []Obese []Cachectic []Thin [x]Ill Eyes: Inspection of Pupils/Irises Pupils round and react: [x]Yes []No Sclera: []Icteric [x]Non-Icteric Inspection of Conjunctiva/Lids Conjunctiva: []Injected [x]Non-Injected Lids: [x]Intact []Lesion Present ENT/Mouth: External Inspection of ears/nose [x] Normal [] Scar/Lesion/Mass Inspection of teeth/lips/gums Dentition: [x][place] Teeth []Dentures Lips/Gums: [x]Intact []Lesion Present Mucosa: [x][place] []Moist []Dry Neck: External Appearance Overall Appearance: []Normal [x]Lesion/Mass/Crepitus Present Trachea midline: [x]Yes []No Thyroid []Normal []Enlarged []Tender []Mass []Absent Respiratory: Respiratory effort []Labored [x]Non-Labored [] Mechanically-Ventilated Auscultation []Clear []Crackles [x]Wheezes []Rhonchi Cardiovascular: Auscultation Rate: [x]Regular []Irregular []Tachycardia []Bradycardia Rhythm: [x]Regular []Irregular Murmur: []Present [x]Absent Extremities Peripheral Edema: []Present [x]Absent Varicosities: []Present [x]Absent Gastrointestinal: Abdomen Palpation: [x]Soft []Firm [x]Tender []Non-Tender [x]Distended []Non-distended Mass: []Present [x]Absent Bowel Sounds: [x]Present []Absent Hernia: []Present [x]Absent Liver/Spleen: []Hepatosplenomegaly []Organomegaly Absent Musculoskeletal: Inspection of Digits and Nails Cyanosis: []Present [x]Absent Clubbing: []Present [x]Absent Ischemia: []Present [x]Absent Infection: []Present [x]Absent Extremities SCOTT Equally: Except ([]RUE []RLE []LUE []LLE) Strength/Tone Intact/Normal Except: ([]RUE []RLE []LUE []LLE) Skin: Inspection []Normal [x]Rash (see media) []Lesion []Ulcer Palpation [x]Warm []Cool [x]Dry []Clammy []Nodules []Induration []Skin-tightening Cap-Refill: [x] <3 sec [] >3 seconds (delayed) Neurologic: GCS EYE: 4 - Opens spontaneously GCS MOTOR: 6 - Obeys commands for movement GCS VERBAL: 5 - Oriented to person, place, time Total GCS: 15 [x] Sensation grossly intact Psych: Mental Status Alert: [x]Yes [] No Oriented: []x0 []X1 []X2 [x]x3 Mood/Affect [x]Normal []Flat []Agitated []Depressed [x]Anxious []Calm []Sedated []NAD [facility] within last 24 hours- BMP: Recent Labs 02/02/23 0326 02/03/23 0524 02/04/23 0029 NA 133* 131* 133* K 3.9 4.5 4.1 CL 97* 96* 96* CO2 29 29 30 BUN 32* 28* 25* CREATININE 0.75 0.87 0.73 CALCIUM 8.6 8.9 8.5 LFTs: No results for input(s): AST, ALT, PROT, ALBUMIN, BILITOT, BILIRUBINU, ALKPHOS, LIPASE in the last 72 hours. Glucose: Recent Labs 02/02/23 0326 02/02/23 0919 02/02/23 1200 02/02/23 2123 02/03/23 0323 02/03/23 0524 02/03/23 0914 02/03/23 1530 02/03/23 2053 02/04/23 0029 02/04/23 0335 02/04/23 0926 GLUCOSE 171* -- -- -- -- 109* -- -- -- 91 -- -- POCGLU 164* < > 140* 100 101* -- 113* 111* 101* -- 91 91 < > = values in this interval not displayed. Procal: No results for input(s): PROCAL in the last 72 hours. CBC: Recent Labs 02/02/23 0326 02/02/23 0327 02/03/23 0524 02/03/23 0525 02/04/23 0029 02/04/23 0030 WBC 6.3 -- 11.2* -- 10.7 -- HGB 10.0* < > 10.3* 11.3 10.4* 11.0 HCT 31.4* -- 32.9* -- 32.3* -- PLT 247 -- 302 -- 322 -- MCV 82.4 -- 81.3 -- 81.6 -- RDW 17.3* -- 17.8* -- 17.0* -- < > = values in this interval not displayed. ABGs: Recent Labs 02/02/23 0327 02/03/23 0525 02/04/23 0030 PHART 7.406 7.387 7.380 VSX2HDS 49.2* 49.6* 49.1* PO2ART 67.2* 74.1* 70.2* FMF4GUX 30.2* 29.1* 28.4* [id number] ETT Vent Nasal cannula Lactic Acid: No results for input(s): LACTATE in the last 72 hours. INR: No results for input(s): INR in the last 72 hours. Cardiac Injury Profile: No results for input(s): CKTOTAL, CKMB, TROPONINI in the last 72 hours. Labs in Last 3 months: Lab Results Component Value Date TSH 0.183 (L) 01/26/2023 VITD25 16 (L) 04/05/2021 INR 1.0 01/26/2023 Microbiology- Urine Cx: No results found for: URINECX Blood Cx: Lab Results Component Value Date BLOODCX No growth at 5 days 01/26/2023 Sputum Cx: Lab Results Component Value Date RESPCULT Few normal respiratory olayinka. 04/09/2021 Gram Stain: Lab Results Component Value Date LABGRAM 07/06/2021 Many polymorphonuclear cells/lpf. Few epithelial cells/lpf. Many gram negative bacilli. Few gram positive cocci in clusters. Few gram positive bacilli. PNA PCR: Lab Results Component Value Date HUMANMETAPNE Not Detected 01/27/2023 COVID19: No results found for: COVID19 Legionella Ag: No results found for: LEGIONELLAPN Strep Ag: No results for input(s): STREPPNEUMO in the last 72 hours. Imaging- CT 01/29 IMPRESSION: Small left-sided pneumothorax (approximately 15 percent). Moderate emphysema with bilateral lower lobe bronchiectasis. Patchy right upper and lower lobe infiltrates and bibasilar atelectasis. Pneumomediastinum. Bilateral neck and chest subcutaneous emphysema. Electronically Signed By: Walter Pham DO Electronically Signed Date/Time: 01/29/2023 7:52 PM EST CXR 01/29 IMPRESSION: Endotracheal tube with distal tip above the chun. Extensive bilateral subcutaneous emphysema of the chest and neck. Constellation of findings compatible with COPD. Electronically Signed By: Ray Bolaños MD Electronically Signed Date/Time: 01/29/2023 9:45 PM EST XR abdomen 02/02 IMPRESSION: New mild, nonspecific dilation of loops of large and small bowel, possibly related to developing ileus versus small bowel obstruction. Unchanged positioning of the NG/OG catheter. Electronically Signed By: William Bolaños MD Electronically Signed Date/Time: 02/02/2023 1:[address] A/P w/ IV and PO contrast 02/02 IMPRESSION: Gastric and ascending and transverse colon dilatation without small bowel dilatation, nonspecific and possibly related to mild gastric and colonic ileus. Subcutaneous gas/air in the left abdominal and pelvic wall extending anterior to the symphysis pubis known etiology possibly secondary to subcutaneous injection(s) or other instrumentation. Correlatewith clinical parameters. Mild diffuse fatty metamorphosis of liver. No evidence of mass, lymphadenopathy or inflammatory process. Small bilateral pleural effusions, left larger than right, bilateral lower lobe bronchiectasis. Electronically Signed By: Casa Wright MD Electronically Signed Date/Time: 02/02/2023 6:54 PM EST Assessment and Plan: Principal Problem: Pneumothorax on left Active Problems: Orthopnea Assessment: 52 y.o. male with PMHx of severe COPD, chronic hypoxemic respiratory failure on 5LPM home O2, history of severe ARDS due to MRSA pneumonia and prolonged respiratory failure requiring tracheostomy in 2015 since decannulated, dysphagia, history of TIA, history of GIB, nephrolithiasis who arrived at [facility] from [facility] for pleural subcutaneous fistula 2/2 chest tube following pneumothorax. CT surgery signed off. We are working to wean him off the vent and sedation. Per previous note, son would like patient to speak with a grief counselor as his father several weeks ago which has drastically affected his health status. Plan: Neuro/psych: - Propofol and fentanyl off - Weaning Precedex gtt - CT head not indicated - Anxiety - Bupropion and Zoloft scheduled - Vistaril x2 and Ativan x1 on 02/02 Cardio/hemodynamic: - Hemodynamically stable without vasopressors/inotropes - BP normotensive. Allow elevated BP while in ICU - 01/26 EKG: sinus rate 97, normal intervals, nonischemic - 01/29 TTE: EF 50%, no significant finding; overall limited study Pulm/resp: - Respiratory Failure Type III (arnol-op/threatened airway/high sedation need) - CT surgery signed off - Daily CXR improving - Minimal subcutaneous emphysema noted - Duonebs TID scheduled GI: - Indication for stress ulcer prophylaxis: Not indicated - KUB 02/02 showed concern for SBO vs ileus - Gen surgery consulted - Daily KUBs - improving - Daily suppositories - NG tube in place - CT A/P 02/02 showed nonspecific gastric, ascending and descending colon dilation without small bowel dilation that is likely related to mild gastric/colonic ileus - EKG Qtc 414 ms on 02/03 - Reglan 5 mg TID and Erythromycin 250 mg TID initiated 02/03 - Repeat EKG Qtc 415 ms on02/04 - Keep NPO - KUB with mod bowel dilation 02/04 Renal/: - Fluids: Bolus fluids PRN - I/O Goal ID: - Source: none - Cultures NGTD pending - Leukocytosis in the setting of steroids improved - Rash present on back and lower extremities since 02/02 (see media) - Patient denies itchiness/pain from rash. Likely drug reaction Endo: - Insulin: ICS PRN - Steroids: solumedrol Heme: - ppx: enox - Hgb/plt stable - Daily labs: CBC, BMP, BG GI Prophylaxis: Pantoprazole IV DVT Prophylaxis: SCDs Disposition: Remain in ICU Status Critical Care Time: 55 Total critical care time caring for this patient with life threatening, unstable organ failure, including direct patient contact, management of life support systems, review of data including imaging and labs, discussions with other team members and physicians, excluding procedures. Associated attestation - Walter Coats DO - 02/04/2023 2:45 PM EST I have personally performed a [id number] diagnostic evaluation on this patient on date of imuipvj27/24/23. History, labs, imaging studies, and electronic medical record have been reviewed by me. This note documented by the []warehouse driver []TAM reflects my history, exam, and medical decision making. I have reviewed and agree with the care plan. Changes were made in the orders as necessary. ROSdocumentation was reviewed and negative unless otherwise stated in HPI. Additional pertinent interval history, ROS, and physical exam findings: Constitutional: General Appearance [x]WDWN []Obese []Cachectic []Thin [x]Ill Eyes: Inspection of Pupils/Irises Pupils round and react: [x]Yes []No Sclera: []Icteric [x]Non-Icteric Inspection of Conjunctiva/Lids Conjunctiva: []Injected [x]Non-Injected Lids: [x]Intact []Lesion Present ENT/Mouth: External Inspection of ears/nose [x] Normal [] Scar/Lesion/Mass Inspection of teeth/lips/gums Dentition: [x][place] Teeth []Dentures Lips/Gums: [x]Intact []Lesion Present Mucosa: [x][place] []Moist []Dry Neck: External Appearance Overall Appearance: []Normal [x]Lesion/Mass/Crepitus Present Trachea midline: [x]Yes []No Thyroid []Normal []Enlarged []Tender []Mass []Absent Respiratory: Respiratory effort []Labored [x]Non-Labored [] Mechanically-Ventilated Auscultation []Clear []Crackles [x]Wheezes []Rhonchi Cardiovascular: Auscultation Rate: [x]Regular []Irregular []Tachycardia []Bradycardia Rhythm: [x]Regular []Irregular Murmur: []Present [x]Absent Extremities Peripheral Edema: []Present [x]Absent Varicosities: []Present [x]Absent Gastrointestinal: Abdomen Palpation: [x]Soft []Firm [x]Tender []Non-Tender [x]Distended []Non-distended Mass: []Present [x]Absent Bowel Sounds: [x]Present []Absent Hernia: []Present [x]Absent Liver/Spleen: []Hepatosplenomegaly []Organomegaly Absent Musculoskeletal: Inspection of Digits and Nails Cyanosis: []Present [x]Absent Clubbing: []Present [x]Absent Ischemia: []Present [x]Absent Infection: []Present [x]Absent Extremities SCOTT Equally: Except ([]RUE []RLE []LUE []LLE) Strength/Tone Intact/Normal Except: ([]RUE []RLE []LUE []LLE) Skin: Inspection []Normal [x]Rash (see media) []Lesion []Ulcer Palpation [x]Warm []Cool [x]Dry []Clammy []Nodules []Induration []Skin-tightening Cap-Refill: [x] <3 sec [] >3 seconds (delayed) Neurologic: GCS EYE: 4 - Opens spontaneously GCS MOTOR: 6 - Obeys commands for movement GCS VERBAL: 5 - Oriented to person, place, time Total GCS: 15 [x] Sensation grossly intact Psych: Mental Status Alert: [x]Yes [] No Oriented: []x0 []X1 []X2 [x]x3 Mood/Affect [x]Normal []Flat []Agitated []Depressed [x]Anxious []Calm []Sedated []NAD As per Dr. Ashraf's A/P. Abdomen is less distended,(+) BM's. Feels weak. Continue with present bowel regimen,NG tube. Monitor breathing closely. Total critical care time for this patient with life-threatening unstable organ failure, including direct patient contact, management of life support systems, review of data including imaging and labs, and discussions with other team members and physicians at least 31 minutes so far today, excludingprocedures. * Ryan Coates - 02/03/2023 11:00 AM EST Spiritual Care Note [facility] Palliative Care Patient Name:Luis Steele Chief Complaint: Chief Complaint Patient presents with Shortness of Breath Reason for visit: Production Administrator Consult Services Provided To:patient and care team Background and visit note: Conferred with Medical Team. Patent to be extubated. Patient is a Orthodoxy and is anxious about extubation. Provided supportive prayer and encouragemnt. A total of 20 minutes spent with this encounter including visitation and documentation. Is there spiritual distress? YES Comment: Patient is anxious about ilness and extubation, Care Plan/Recommendations: Interventions: spiritual support provided, emotional support provided, validated feelings, and alleviation of fear and anxiety. Care Plan: find peace/acceptance and connect to higher power. Follow Up: PRN. Additional: N/A Debriefed: with patients physician. Ryan Coates 02/03/23 * Anselmo Jauregui MD - 02/03/2023 10:41 AM EST Images from the original note were not included. Department of General Surgery Daily Progress Note ADMIT DATE: 01/26/2023 TODAY'S DATE: 02/03/2023 SUBJECTIVE: No acute events overnight. No bowel movement overnight., Distention remains about the same. ROS: Noted above unless otherwise mentioned OBJECTIVE: VITALS: Temp: [36.4 C (97.5 F)-37.4 C (99.4 F)] 37.4 C (99.4 F) Heart Rate: [71-96] 79 Resp: [15-25] 15 BP: (97)/(57) 97/57 Arterial Line BP 1: (92-138)/(53-76) 118/64 FiO2 (%): [50 %] 50 % INTAKE/OUTPUT: Intake/Output Summary (Last 24 hours) at 02/03/2023 1041 Last data filed at 02/03/2023 0700 Gross per 24 hour Intake 463 ml Output 2835 ml Net -2372 ml I/O last 3 completed shifts: In: 2251 (26.4 mL/kg) [I.V.:1386 (16.3 mL/kg); NG/GT:865] Out: 3060 (35.9 mL/kg) [Urine:2110 (0.7 mL/kg/hr); Emesis/NG output:950] Weight: 85.2 kg I/O this shift: In: - Out: 250 [Urine:250] PHYSICAL EXAM: CONSTITUTIONAL: awake, alert, intubated NECK: Supple, symmetrical, trachea midline LUNGS: mech ventilated, synchronous with vent CARDIOVASCULAR: HR and BP stable ABDOMEN: Soft, moderately distended, minimally tender CHEST: no masses palpated, non-tender GENITAL/URINARY: Not examined MUSCULOSKELETAL: There is no redness, warmth, or swelling of the joints. NEUROLOGIC: Awake, alert, oriented to name, place and time. SKIN: normal skin color, texture, no redness, warmth, or swelling LABS CBC: Auto WBC Date Value Ref Range Status 02/03/2023 11.2 (H) 3.6 - 10.7 10*3/uL Final 02/02/2023 6.3 3.6 - 10.7 10*3/uL Final 02/01/2023 6.7 3.6 - 10.7 10*3/uL Final Hgb, blood gas Date Value Ref Range Status 02/03/2023 11.3 Screen Only g/dl Final 02/02/2023 10.8 Screen Only g/dl Final 02/01/2023 10.2 Screen Only g/dl Final Hemoglobin Date Value Ref Range Status 02/03/2023 10.3 (L) 13.0 - 18.0 g/dL Final 02/02/2023 10.0 (L) 13.0 - 18.0 g/dL Final 02/01/2023 9.5 (L) 13.0 - 18.0 g/dL Final Platelets Date Value Ref Range Status 02/03/2023 302 140 - 440 10*3/uL Final 02/02/2023 247 140 - 440 10*3/uL Final 02/01/2023 262 140 - 440 10*3/uL Final BMP: SODIUM Date Value Ref Range Status 02/03/2023 131 (L) 135 - 145 mmol/L Final 02/02/2023 133 (L) 135 - 145 mmol/L Final 02/01/2023 135 135 - 145 mmol/L Final POTASSIUM Date Value Ref Range Status 02/03/2023 4.5 3.5 - 5.1 mmol/L Final 02/02/2023 3.9 3.5 - 5.1 mmol/L Final 02/01/2023 4.6 3.5 - 5.1 mmol/L Final CHLORIDE Date Value Ref Range Status 02/03/2023 96 (L) 98 - 107 mmol/L Final 02/02/2023 97 (L) 98 - 107 mmol/L Final 02/01/2023 98 98 - 107 mmol/L Final CARBON DIOXIDE Date Value Ref Range Status 02/03/2023 29 22 - 30 mmol/L Final 02/02/2023 29 22 - 30 mmol/L Final 02/01/2023 29 22 - 30 mmol/L Final UREA NITROGEN Date Value Ref Range Status 02/03/2023 28 (H) 9 - 20 mg/dL Final 02/02/2023 32 (H) 9 - 20 mg/dL Final 02/01/2023 36 (H) 9 - 20 mg/dL Final CREATININE Date Value Ref Range Status 02/03/2023 0.87 0.66 - 1.25 mg/dL Final 02/02/2023 0.75 0.66 - 1.25 mg/dL Final 02/01/2023 0.76 0.66 - 1.25 mg/dL Final 07/11/2021 0.90 0.52 - 1.25 mg/dL Final 07/08/2021 0.88 0.52 - 1.25 mg/dL Final 07/07/2021 0.66 0.52 - 1.25 mg/dL Final Hepatic: AST (SGOT) Date Value Ref Range Status 01/29/2023 40 15 - 46 U/L Final 01/29/2023 70 (H) 15 - 46 U/L Final 01/28/2023 42 15 - 46 U/L Final ALT Date Value Ref Range Status 01/29/2023 31 0 - 49 U/L Final 01/29/2023 35 0 - 49 U/L Final 01/28/2023 23 0 - 49 U/L Final ALBUMIN Date Value Ref Range Status 01/29/2023 4.5 3.5 - 5.0 g/dL Final 01/29/2023 4.3 3.5 - 5.0 g/dL Final 01/28/2023 3.9 3.5 - 5.0 g/dL Final BILIRUBIN, TOTAL Date Value Ref Range Status 01/29/2023 1.0 0.2 - 1.3 mg/dL Final 01/29/2023 0.6 0.2 - 1.3 mg/dL Final 01/28/2023 0.3 0.2 - 1.3 mg/dL Final ALKALINE PHOSPHATASE Date Value Ref Range Status 01/29/2023 44 38 - 126 U/L Final 01/29/2023 43 38 - 126 U/L Final 01/28/2023 40 38 - 126 U/L Final Current Inpatient Medications Scheduled Meds:bisacodyl, 10 mg, Rectal, Daily budesonide, 0.5 mg, Nebulization, Daily buPROPion, 150 mg, Oral, BID [Held by provider] buPROPion XL, 300 mg, Oral, Daily chlorhexidine, 15 mL, Mouth/Throat, BID enoxaparin, 40 mg, SubCUTAneous, Daily ferrous sulfate, 325 mg, Oral, Every other day guaiFENesin, 200 mg, Oral, q8h influenza, 0.5 mL, IntraMUSCular, Prior to discharge insulin lispro, 0-12 Units, SubCUTAneous, q6h ipratropium-albuterol, 3 mL, Nebulization, Q4H Lidocaine, 1 patch, TransDERmal, Daily nicotine, 1 patch, TransDERmal, Daily pantoprazole, 40 mg, Oral, Nightly Or pantoprazole (ProtoNix) 40 mg in sodium chloride (PF) 0.9 % 10 mL injection, 40 mg, IntraVENous, Nightly QUEtiapine, 25 mg, Oral, Nightly senna-docusate sodium, 1 tablet, Oral, BID sertraline, 100 mg, Oral, Daily Continuous Infusions:dexmedeTOMIDine, 0.1-1.5 mcg/kg/hr, Last Rate: 1 mcg/kg/hr (02/03/23 0951) fentaNYL, 25-200 mcg/hr, Last Rate: Stopped (02/02/23 1100) propofol, 5-50 mcg/kg/min, Last Rate: Stopped (02/02/23 0400) PRN Meds:PRN medications: acetaminophen OR acetaminophen OR acetaminophen, albuterol, dextrose, dextrose, glucagon (rDNA), glucose, HYDROmorphone, [Held by provider] hydrOXYzine pamoate, magnesium sulfate OR magnesium sulfate, ondansetron ODT OR ondansetron, [Held by provider] oxyCOD ONE, perflutren protein A microsphere (Optison) 3 mL in sodium chloride (PF) 0.9 % 10 mL IV syringe, potassium chloride CR OR potassium chloride OR potassium chloride, sodium phosphate in D5 OR sodium phosphate in D5 OR sodium phosphate in D5 ASSESSMENT AND PLAN: 52 y.o. male with acute on chronic respiratory failure now with likely gastroparesis -CT scan yesterday shows oral contrast all the way to the terminal ileum. There is some mild colonic distention, stomach is distended. This seems to be more in line with some colonic ileus and an element of gastroparesis -Check QTc and then start erythromycin and Reglan -Maintain OG or NG tube for decompression -Daily Dulcolax suppositories, Daily KUB Will discuss with Dr. Héctor Jauregui MD General Surgery 02/03/23 10:41 AM Pager # [phone] This note may have been dictated using [employer] Medical Practice Edition 2.6 and/or [employer] Voice Recognition Feature. The document was proofread; however, unrecognized voice recognition tailor apprentice errors may be present. Associated attestation - Maria Anaya MD - 02/03/2023 10:57 AM EST ~~~~~~~~~~~~~~~~~~~~~~~~~~~~~~~~~~~~~~~~~~~~~~~~~~~~~~~~~~~~~ ATTENDING ADDENDUM Patient Active Problem List Diagnosis Orthopnea Dysphagia Gastroesophageal reflux disease with esophagitis COVID-19 Severe malnutrition (CMS/HCC) (HCC) COPD with acute exacerbation (HCC) Retained food in stomach Pneumothorax on left I independently saw the above patient and reviewed the recent events, imaging, labs, vital signs; Iperformed a physical exam and ROS on the same date of service as above. My findings agree with the above note except for any details corrected below. A complete review of systems was obtained and is negative except as stated in HPI. 52-year-old male with end-stage COPD on 5 L oxygen at home and chronic hypoxemic respiratory failure presents with ileus/gastroparesis of critical illness Mod distention on exam, soft, non-tender No BM only smears Management: No acute surgical invention Recommend Reglan 3 times daily and erythromycin Recommend to Dulcolax suppositories Serial abdominal exams NPO/NGT (place if extubating, OG in now) Level of Medical Decision Making: risk of morbidity from additional diagnostic testing or treatmentdue to Ileus []High [x]Moderate []Low Personally Reviewed/Independently interpreted patient's: [x]Epic notes [x]Radiology studies [x]Labs []EKG []Ordering tests []Other Discussed/ With: [x]Patient/Family []RN []Consultants []SW/TCC []Other I spent total time of 36 minutes reviewing previous notes, test results, and face to face with Luis Steele discussing the diagnosis and importance of compliance with the treatment plan as well as documenting on the day of the visit. Time was spent, Reviewing medical record including recent tests and results Ordering prescription medications/tests and procedures Communicating results to the patient/family/caregiver Counseling/educating the patient/family/caregiver Documenting clinical information the patient's electronic record Coordination of care for the patient Performing a medical appropriate exam and evaluation Maria Anaya MD, FACS Division of Trauma Department of Surgery [facility] ~~~~~~~~~~~~~~~~~~~~~~~~~~~~~~~~~~~~~~~~~~~~~~~~~~~~~~~~~~~~~ This note may have been dictated using [employer] Medical Practice Edition 2.6 and/or [employer] Voice Recognition Feature. The document was proofread; however, unrecognized voice recognition tailor apprentice errors may be present. * Shelby Guerra MD - 02/03/2023 5:29 AM EST ICU Progress Note Name: Luis Steele : 1970(52 y.o.) Date: 02/03/23 Team: MICU Attending: Dr. Walter Coats Subjective: Hospital Summary: 52 yo male former smoker with severe COPD, chronic hypoxemic respiratory failure on 5LPM home O2, history of severe ARDS due to MRSA pneumonia and prolonged respiratory failure requiring tracheostomyin 2014 since decannulated, dysphagia, history of TIA, history of GIB, nephrolithiasis. The patient presented to the [place] ED on 01/26/23 with severe respiratory distress and acute onchronic hypoxemia. Portable chest xray demonstrated left lower lateral pneumothorax and a 28Fr chest tube was placed by the ED staff. Due to severe hypoxemia the [facility]: no air leak; CT with small anterior left PTX not being accessed by chest tube. Overnight on chest tube inadvertently dislodged. Stable on vent. No recurrence of PTX 01/28: Extubated to salter high flow 15 lpm. Continuing to treat COPD exacerbation and weaning oxygen 01/29: Throughout the day, patient had increasing emphysema in the neck and shoulder regions. Progressed rapidly, leading to neck swelling and compromise of the airway so patient was emergently re-intubated, given an A-line, and sent to [facility] ICU. 01/30: Concern for pleuro-subcutaneous fistula air tracking. CT surgery suggested against emergent surgery at this time and is following. 01/31: Crepitus has improved, and patient was weaned off propofol. CT Sx signed off. 02/01: SBT's improving 02/02: Extubation attempted today but not successful due to episode of emesis. KUB concerning for SBO vs ileus. Gen surg consulted. CT A/P more suggestive of ileus. Interval Events: No acute events overnight. Rash stable, denies itchiness/pain. Seen by Production Administrator today for grief over patient's father's recent passing. Extubated today without difficulty. Scheduled Meds: bisacodyl, 10 mg, Rectal, Daily budesonide, 0.5 mg, Nebulization, Daily buPROPion, 150 mg, Oral, BID [Held by provider] buPROPion XL, 300 mg, Oral, Daily chlorhexidine, 15 mL, Mouth/Throat, BID enoxaparin, 40 mg, SubCUTAneous, Daily erythromycin, 250 mg, IntraVENous, q8h ferrous sulfate, 325 mg, Oral, Every other day guaiFENesin, 200 mg, Oral, q8h influenza, 0.5 mL, IntraMUSCular, Prior to discharge insulin lispro, 0-12 Units, SubCUTAneous, q6h ipratropium-albuterol, 3 mL, Nebulization, Q4H Lidocaine, 1 patch, TransDERmal, Daily metoclopramide, 5 mg, IntraVENous, TID nicotine, 1 patch, TransDERmal, Daily pantoprazole, 40 mg, Oral, Nightly Or pantoprazole (ProtoNix) 40 mg in sodium chloride (PF) 0.9 % 10 mL injection, 40 mg, IntraVENous, Nightly senna-docusate sodium, 1 tablet, Oral, BID sertraline, 100 mg, Oral, Daily Continuous Infusions:dexmedeTOMIDine, 0.1-1.5 mcg/kg/hr, Last Rate: 1 mcg/kg/hr (02/03/23 09) fentaNYL, 25-200 mcg/hr, Last Rate: Stopped (02/02/23 1100) propofol, 5-50 mcg/kg/min, Last Rate: Stopped (02/02/23 0400) Objective: Last Vitals: BP MAP 97/57 (02/02/231999) 70 (02/02/231999) Arterial BP MAP 100/64 (02/03/231099) 76 mmHg (02/03/231099) Temp 37.4 C (99.4 F) (02/03/23 07) Pulse 66 (02/03/23 1400) Resp 20 (02/03/23 1400) SpO2 96 % (02/03/23 1400) Weight 85.2 kg (187 lb 13.3 oz) (02/03/23 05) BMI Body mass index is 26.95 kg/m . I/O: 02/02 700 - 02/03 659 In: 463 [I.V.:463] Out: 2585 [Urine:1635] Ventilator: Ventilation Day(s): 2 Resp Rate (Set): 20 Vt (Set, mL): 400 mL IP Set (cm H2O): 0 cm H2O FiO2 (%): 50 % PEEP/CPAP (cm H2O): 8 cm H20 Inspiratory Time (sec): 0.9 sec Oxygen Delivery: O2 Flow Rate (L/min): 4 L/min Invasive Lines / Tubes / Drains: Peripheral IV 01/26/23 Distal;Posterior;Right Forearm (Active) Number of days: 3 Peripheral IV 01/29/23 Anterior;Left Forearm (Active) Number of days: 0 NG/OG Tube Orogastric Center mouth (Active) Number of days: 0 Urethral Catheter (Active) Number of days: 0 ETT 7 mm (Active) Number of days: 0 Central Line Indication: NA - patient does not have a central line Emerson Indications: Hourly I&Os (Critical Care ONLY) Restraints: Restraints Non-Violent Or Non-Self Destructive Jan 29, 2023 10:34 Pm Est Restraint order already placed. Order is valid for duration of episode. Wounds: Wound/Incision 01/28/23 Incision Back Lateral;Right (Active) Date First Assessed/Time First Assessed: 01/28/23 0800 Primary Wound Type: Incision Location: Back Wound Location Orientation: Lateral;Right Wound Description (Comments): chest tube site, clean dry and intact Constitutional: General Appearance [x]WDWN []Obese []Cachectic []Thin []Ill Eyes: Inspection of Pupils/Irises Pupils round and react: [x]Yes []No Sclera: []Icteric [x]Non-Icteric Inspection of Conjunctiva/Lids Conjunctiva: []Injected [x]Non-Injected Lids: [x]Intact []Lesion Present ENT/Mouth: External Inspection of ears/nose [x] Normal [] Scar/Lesion/Mass Inspection of teeth/lips/gums Dentition: [x][place] Teeth []Dentures Lips/Gums: []Intact []Lesion Present Mucosa: [x][place] []Moist []Dry Neck: External Appearance Overall Appearance: []Normal [x]Lesion/Mass/Crepitus Present Trachea midline: [x]Yes []No Thyroid []Normal []Enlarged []Tender []Mass []Absent Respiratory: Respiratory effort []Labored [x]Non-Labored [] Mechanically-Ventilated Auscultation [x]Clear []Crackles []Wheezes []Rhonchi Cardiovascular: Auscultation Rate: [x]Regular []Irregular []Tachycardia []Bradycardia Rhythm: [x]Regular []Irregular Murmur: []Present [x]Absent Extremities Peripheral Edema: []Present [x]Absent Varicosities: []Present [x]Absent Gastrointestinal: Abdomen Palpation: []Soft [x]Firm []Tender [x]Non-Tender [x]Distended []Non-distended Mass: []Present [x]Absent Bowel Sounds: [x]Present []Absent Hernia: []Present [x]Absent Liver/Spleen: []Hepatosplenomegaly []Organomegaly Absent Musculoskeletal: Inspection of Digits and Nails Cyanosis: []Present [x]Absent Clubbing: []Present [x]Absent Ischemia: []Present [x]Absent Infection: []Present [x]Absent Extremities SCOTT Equally: Except ([]RUE []RLE []LUE []LLE) Strength/Tone Intact/Normal Except: ([]RUE []RLE []LUE []LLE) Skin: Inspection []Normal [x]Rash (see media) []Lesion []Ulcer Palpation [x]Warm []Cool [x]Dry []Clammy []Nodules []Induration []Skin-tightening Cap-Refill: [x] <3 sec [] >3 seconds (delayed) Neurologic: GCS EYE: 4 - Opens spontaneously GCS MOTOR: 6 - Obeys commands for movement GCS VERBAL: 5 - Oriented to person, place, time Total GCS: 15 [x] Sensation grossly intact Psych: Mental Status Alert: [x]Yes [] No Oriented: []x0 []X1 []X2 [x]x3 Mood/Affect [x]Normal []Flat []Agitated []Depressed [x]Anxious []Calm []Sedated []NAD [facility] within last 24 hours- BMP: Recent Labs 02/01/23 0430 02/02/23 0326 02/03/23 0524 NA 135 133* 131* K 4.6 3.9 4.5 CL 98 97* 96* CO2 29 29 29 BUN 36* 32* 28* CREATININE 0.76 0.75 0.87 CALCIUM 9.2 8.6 8.9 LFTs: No results for input(s): AST, ALT, PROT, ALBUMIN, BILITOT, BILIRUBINU, ALKPHOS, LIPASE in the last 72 hours. Glucose: Recent Labs 02/01/23 0430 02/01/23 1241 02/01/23 1742 02/02/23 0023 02/02/23 0326 02/02/23 0919 02/02/23 1200 02/02/23 2123 02/03/23 0323 02/03/23 0524 02/03/23 0914 GLUCOSE 106* -- -- -- 171* -- -- -- -- 109* -- POCGLU -- < > 144* 108* 164* 162* 140* 100 101* -- 113* < > = values in this interval not displayed. Procal: No results for input(s): PROCAL in the last 72 hours. CBC: Recent Labs 02/01/23 0430 02/01/23 0438 02/02/23 0326 02/02/23 0327 02/03/23 0524 02/03/23 0525 WBC 6.7 -- 6.3 -- 11.2* -- HGB 9.5* < > 10.0* 10.8 10.3* 11.3 HCT 29.5* -- 31.4* -- 32.9* -- PLT 262 -- 247 -- 302 -- MCV 82.0 -- 82.4 -- 81.3 -- RDW 17.4* -- 17.3* -- 17.8* -- < > = values in this interval not displayed. ABGs: Recent Labs 02/01/2343702/02/2332602/03/23 0525 PHART 7.405 7.406 7.387 ZDY4TPI 54.7* 49.2* 49.6* PO2ART 62.9* 67.2* 74.1* XCC4LJR 33.5* 30.2* 29.1* [id number] ETT ETT Vent Lactic Acid: No results for input(s): LACTATE in the last 72 hours. INR: No results for input(s): INR in the last 72 hours. Cardiac Injury Profile: No results for input(s): CKTOTAL, CKMB, TROPONINI in the last 72 hours. Labs in Last 3 months: Lab Results Component Value Date TSH 0.183 (L) 01/26/2023 VITD25 16 (L) 04/05/2021 INR 1.0 01/26/2023 Microbiology- Urine Cx: No results found for: URINECX Blood Cx: Lab Results Component Value Date BLOODCX No growth at 5 days 01/26/2023 Sputum Cx: Lab Results Component Value Date RESPCULT Few normal respiratory olayinka. 04/09/2021 Gram Stain: Lab Results Component Value Date LABGRAM 07/06/2021 Many polymorphonuclear cells/lpf. Few epithelial cells/lpf. Many gram negative bacilli. Few gram positive cocci in clusters. Few gram positive bacilli. PNA PCR: Lab Results Component Value Date HUMANMETAPNE Not Detected 01/27/2023 COVID19: No results found for: COVID19 Legionella Ag: No results found for: LEGIONELLAPN Strep Ag: No results for input(s): STREPPNEUMO in the last 72 hours. Imaging- CT 01/29 IMPRESSION: Small left-sided pneumothorax (approximately 15 percent). Moderate emphysema with bilateral lower lobe bronchiectasis. Patchy right upper and lower lobe infiltrates and bibasilar atelectasis. Pneumomediastinum. Bilateral neck and chest subcutaneous emphysema. Electronically Signed By: Walter Pham DO Electronically Signed Date/Time: 01/29/2023 7:52 PM EST CXR 01/29 IMPRESSION: Endotracheal tube with distal tip above the chun. Extensive bilateral subcutaneous emphysema of the chest and neck. Constellation of findings compatible with COPD. Electronically Signed By: Ray Bolaños MD Electronically Signed Date/Time: 01/29/2023 9:45 PM EST XR abdomen 02/02 IMPRESSION: New mild, nonspecific dilation of loops of large and small bowel, possibly related to developing ileus versus small bowel obstruction. Unchanged positioning of the NG/OG catheter. Electronically Signed By: William Bolaños MD Electronically Signed Date/Time: 02/02/2023 1:[address] A/P w/ IV and PO contrast 02/02 IMPRESSION: Gastric and ascending and transverse colon dilatation without small bowel dilatation, nonspecific and possibly related to mild gastric and colonic ileus. Subcutaneous gas/air in the left abdominal and pelvic wall extending anterior to the symphysis pubis known etiology possibly secondary to subcutaneous injection(s) or other instrumentation. Correlatewith clinical parameters. Mild diffuse fatty metamorphosis of liver. No evidence of mass, lymphadenopathy or inflammatory process. Small bilateral pleural effusions, left larger than right, bilateral lower lobe bronchiectasis. Electronically Signed By: Casa Wright MD Electronically Signed Date/Time: 02/02/2023 6:54 PM EST Assessment and Plan: Principal Problem: Pneumothorax on left Active Problems: Orthopnea Assessment: 52 y.o. male with PMHx of severe COPD, chronic hypoxemic respiratory failure on 5LPM home O2, history of severe ARDS due to MRSA pneumonia and prolonged respiratory failure requiring tracheostomy in 2015 since decannulated, dysphagia, history of TIA, history of GIB, nephrolithiasis who arrived at [facility] from [facility] for pleural subcutaneous fistula 2/2 chest tube following pneumothorax. CT surgery signed off. We are working to wean him off the vent and sedation. Per previous note, son would like patient to speak with a grief counselor as his father several weeks ago which has drastically affected his health status. Plan: Neuro/psych: - Propofol and fentanyl off - Weaning Precedex gtt - CT head not indicated - Anxiety - Bupropion BID scheduled, Vistaril x2 and Ativan x1 on 02/02 Cardio/hemodynamic: - Hemodynamically stable without vasopressors/inotropes - BP normotensive. Allow elevated BP while in ICU - 01/26 EKG: sinus rate 97, normal intervals, nonischemic - 01/29 TTE: EF 50%, no significant finding; overall limited study - Cap refill brisk Pulm/resp: - Respiratory Failure Type III (arnol-op/threatened airway/high sedation need) - CT surgery signed off - Daily CXR improving - Minimal subcutaneous emphysema noted GI: - Indication for stress ulcer prophylaxis: Not indicated - KUB 02/02 showed concern for SBO vs ileus - Gen surgery consulted - Daily KUBs - Daily suppositories - NG tube placement when extubated - CT A/P 02/02 showed nonspecific gastric, ascending and descending colon dilation without small bowel dilation that is likely related to mild gastric/colonic ileus - Reglan 5 mg TID and Erythromycin - Resume TF post-extubation via NG vs PO diet s/p swallow eval Renal/: - Fluids: Bolus fluids PRN - I/O Goal ID: - Source: none - Cultures NGTD pending - Leukocytosis in the setting of steroids improved - Rash present on back and lower extremities since 02/02 (see media) - Patient denies itchiness/pain from rash. Likely drug reaction Endo: - Insulin: ICS PRN - Steroids: solumedrol Heme: - ppx: enox - Hgb/plt stable - Daily labs: CBC, BMP, BG GI Prophylaxis: Pantoprazole IV DVT Prophylaxis: SCDs Disposition: Remain in ICU Status Critical Care Time: 55 Total critical care time caring for this patient with life threatening, unstable organ failure, including direct patient contact, management of life support systems, review of data including imaging and labs, discussions with other team members and physicians, excluding procedures. Associated attestation - Jorge L DO Walter - 02/03/2023 4:39 PM EST I have personally performed a [id number] diagnostic evaluation on this patient on date of rgdbuvq68/23/23. History, labs, imaging studies, and electronic medical record have been reviewed by me. This note documented by the [x]warehouse driver []TAM reflects my history, exam, and medical decision making. I have reviewed and agree with the care plan. Changes were made in the orders as necessary. ROS documentation was reviewed and negative unless otherwise stated in HPI. Additional pertinent interval history, ROS, and physical exam findings: Constitutional: General Appearance [x]WDWN []Obese []Cachectic []Thin []Ill Eyes: Inspection of Pupils/Irises Pupils round and react: [x]Yes []No Sclera: []Icteric [x]Non-Icteric Inspection of Conjunctiva/Lids Conjunctiva: []Injected [x]Non-Injected Lids: [x]Intact []Lesion Present ENT/Mouth: External Inspection of ears/nose [x] Normal [] Scar/Lesion/Mass Inspection of teeth/lips/gums Dentition: [x][place] Teeth []Dentures Lips/Gums: []Intact []Lesion Present Mucosa: [x][place] []Moist []Dry Neck: External Appearance Overall Appearance: []Normal [x]Lesion/Mass/Crepitus Present Trachea midline: [x]Yes []No Thyroid []Normal []Enlarged []Tender []Mass []Absent Respiratory: Respiratory effort []Labored [x]Non-Labored [] Mechanically-Ventilated Auscultation [x]Clear []Crackles []Wheezes []Rhonchi Cardiovascular: Auscultation Rate: [x]Regular []Irregular []Tachycardia []Bradycardia Rhythm: [x]Regular []Irregular Murmur: []Present [x]Absent Extremities Peripheral Edema: []Present [x]Absent Varicosities: []Present [x]Absent Gastrointestinal: Abdomen Palpation: []Soft [x]Firm []Tender [x]Non-Tender [x]Distended []Non-distended Mass: []Present [x]Absent Bowel Sounds: [x]Present []Absent Hernia: []Present [x]Absent Liver/Spleen: []Hepatosplenomegaly []Organomegaly Absent Musculoskeletal: Inspection of Digits and Nails Cyanosis: []Present [x]Absent Clubbing: []Present [x]Absent Ischemia: []Present [x]Absent Infection: []Present [x]Absent Extremities SCOTT Equally: Except ([]RUE []RLE []LUE []LLE) Strength/Tone Intact/Normal Except: ([]RUE []RLE []LUE []LLE) Skin: Inspection []Normal [x]Rash (see media) []Lesion []Ulcer Palpation [x]Warm []Cool [x]Dry []Clammy []Nodules []Induration []Skin-tightening Cap-Refill: [x] <3 sec [] >3 seconds (delayed) Neurologic: GCS EYE: 4 - Opens spontaneously GCS MOTOR: 6 - Obeys commands for movement GCS VERBAL: 5 - Oriented to person, place, time Total GCS: 15 [x] Sensation grossly intact Psych: Mental Status Alert: [x]Yes [] No Oriented: []x0 []X1 []X2 [x]x3 Mood/Affect [x]Normal []Flat []Agitated []Depressed [x]Anxious []Calm []Sedated []NAD As per 's A/P. Patient is doing better today. He was evaluated by general surgery and alsoreceived a CAT scan of the abdomen pelvis and appears that he has an ongoing ileus. Patient subsequently started on erythromycin and Reglan per surgery recommendations. We are able to place an NG tube in today, I successfully able to extubate him to nasal cannula without difficulty. His anxiety level appears to be better today. Our plan will be to continue to monitor him closely in the ICU and follow his ileus with serial abdominal films daily. He is a full code. Total critical care time for this patient with life-threatening unstable organ failure, including direct patient contact, management of life support systems, review of data including imaging and labs, and discussions with other team members and physicians at least 34 minutes so far today, excludingprocedures. * Shelby Guerra MD - 02/02/2023 3:32 PM EST Family Communication Number Called: [phone] Name of Designated Family Producer Director: Stalin Steele Relationship: son Phone Call Outcome: I spoke with the individual listed above. Family Producer Director Updated on the Following: Attempted extubation but the patient vomited duringthis process and the tube was left in. Further work up was done to assess the vomiting and XR showed dilated bowel loops, suggesting possible obstruction. General surgery was consulted and he is to undergo CT imaging soon for more details. Patient is awake, alert, and communicating with the white board. He wrote I want my son to be here. Son stated he is at work but plans to be here around 6:00-6:30 pm. * Shelby Guerra MD - 02/02/2023 7:08 AM EST ICU Progress Note Name: Luis Steele : 1970(52 y.o.) Date: 02/02/23 Team: MICU Attending: Dr. Walter Coats Subjective: Hospital Summary: 52 yo male former smoker with severe COPD, chronic hypoxemic respiratory failure on 5LPM home O2, history of severe ARDS due to MRSA pneumonia and prolonged respiratory failure requiring tracheostomyin 2014 since decannulated, dysphagia, history of TIA, history of GIB, nephrolithiasis. The patient presented to the [place] ED on 01/26/23 with severe respiratory distress and acute onchronic hypoxemia. Portable chest xray demonstrated left lower lateral pneumothorax and a 28Fr chest tube was placed by the ED staff. Due to severe hypoxemia [facility] 01/27: no air leak; CT with small anterior left PTX not being accessed by chest tube. Overnight on chest tube inadvertently dislodged. Stable on vent. No recurrence of PTX 01/28: Extubated to salter high flow 15 lpm. Continuing to treat COPD exacerbation and weaning oxygen 01/29: Throughout the day, patient had increasing emphysema in the neck and shoulder regions. Progressed rapidly, leading to neck swelling and compromise of the airway so patient was emergently re-intubated, given an A-line, and sent to [facility] ICU. 01/30: Concern for pleuro-subcutaneous fistula air tracking. CT surgery suggested against emergent surgery at this time and is following. 01/31: Crepitus has improved, and patient was weaned off propofol. CT Sx signed off. 02/01: SBT's improving Interval Events: NAEO and VSS. Awake and alert, following commands. Plan to extubate today. Now off Propofol and weaning fentanyl and Precedex. Received Vistaril and Ativan for anxiety leading up to extubation attempt. Extubation attempted during rounds, however patient had an episode of emesis and it was delayed. KUB obtained which showed concern for SBO vs ileus. Gen surg consulted and CT A/P w/ IV and PO contrast ordered. Scheduled Meds: budesonide, 0.5 mg, Nebulization, Daily buPROPion, 150 mg, Oral, BID [Held by provider] buPROPion XL, 300 mg, Oral, Daily chlorhexidine, 15 mL, Mouth/Throat, BID enoxaparin, 40 mg, SubCUTAneous, Daily ferrous sulfate, 325 mg, Oral, Every other day guaiFENesin, 200 mg, Oral, q8h influenza, 0.5 mL, IntraMUSCular, Prior to discharge insulin lispro, 0-12 Units, SubCUTAneous, q6h ipratropium-albuterol, 3 mL, Nebulization, Q4H Lidocaine, 1 patch, TransDERmal, Daily nicotine, 1 patch, TransDERmal, Daily pantoprazole, 40 mg, Oral, Nightly Or pantoprazole (ProtoNix) 40 mg in sodium chloride (PF) 0.9 % 10 mL injection, 40 mg, IntraVENous, Nightly QUEtiapine, 25 mg, Oral, Nightly senna-docusate sodium, 1 tablet, Oral, BID sertraline, 100 mg, Oral, Daily Continuous Infusions:dexmedeTOMIDine, 0.1-1.5 mcg/kg/hr, Last Rate: 1 mcg/kg/hr (02/02/23 1200) fentaNYL, 25-200 mcg/hr, Last Rate: Stopped (02/02/23 1100) propofol, 5-50 mcg/kg/min, Last Rate: Stopped (02/02/23 0400) Objective: Last Vitals: BP MAP 97/77 (01/31/23 08) 83 (01/31/23 08) Arterial BP MAP 94/53 (02/02/23 07) 66 mmHg (02/02/23699) Temp 36.7 C (98 F) (02/02/23 040) Pulse 84 (02/02/23 1300) Resp 20 (02/02/23 1300) SpO2 91 % (02/02/23 1300) Weight 86.3 kg (190 lb 4.1 oz) (02/01/23 06) BMI Body mass index is 27.3 kg/m . I/O: 02/01 700 - 02/02 659 In: 3139 [I.V.:1274] Out: 1075 [Urine:1075] Ventilator: Ventilation Day(s): 2 Resp Rate (Set): 20 Vt (Set, mL): 400 mL IP Set (cm H2O): 0 cm H2O FiO2 (%): 50 % PEEP/CPAP (cm H2O): 5 cm H20 Inspiratory Time (sec): 0.9 sec Oxygen Delivery: O2 Flow Rate (L/min): 6 L/min Invasive Lines / Tubes / Drains: Peripheral IV 01/26/23 Distal;Posterior;Right Forearm (Active) Number of days: 3 Peripheral IV 01/29/23 Anterior;Left Forearm (Active) Number of days: 0 NG/OG Tube Orogastric Center mouth (Active) Number of days: 0 Urethral Catheter (Active) Number of days: 0 ETT 7 mm (Active) Number of days: 0 Central Line Indication: NA - patient does not have a central line [place] Indications: Hourly I&Os (Critical Care ONLY) Restraints: Restraints Non-Violent Or Non-Self Destructive Jan 29, 2023 10:34 Pm Est Restraint order already placed. Order is valid for duration of episode. Wounds: Wound/Incision 01/28/23 Incision Back Lateral;Right (Active) Date First Assessed/Time First Assessed: 01/28/23799 Primary Wound Type: Incision Location: Back Wound Location Orientation: Lateral;Right Wound Description (Comments): chest tube site, clean dry and intact Constitutional: General Appearance [x]WDWN []Obese []Cachectic []Thin []Ill Eyes: Inspection of Pupils/Irises Pupils round and react: [x]Yes []No Sclera: []Icteric [x]Non-Icteric Inspection of Conjunctiva/Lids Conjunctiva: []Injected [x]Non-Injected Lids: [x]Intact []Lesion Present ENT/Mouth: External Inspection of ears/nose [x] Normal [] Scar/Lesion/Mass Inspection of teeth/lips/gums Dentition: [x][place] Teeth []Dentures Lips/Gums: []Intact []Lesion Present Mucosa: [x][place] []Moist []Dry Neck: External Appearance Overall Appearance: []Normal [x]Lesion/Mass/Crepitus Present Trachea midline: []Yes []No Thyroid []Normal []Enlarged []Tender []Mass []Absent Respiratory: Respiratory effort []Labored []Non-Labored [x] Mechanically-Ventilated Auscultation []Clear []Crackles []Wheezes []Rhonchi Cardiovascular: Auscultation Rate: [x]Regular []Irregular []Tachycardia []Bradycardia Rhythm: [x]Regular []Irregular Murmur: []Present [x]Absent Extremities Peripheral Edema: []Present []Absent Varicosities: []Present [x]Absent Gastrointestinal: Abdomen Palpation: [x]Soft []Firm []Tender []Non-Tender [x]Distended []Non-distended Mass: []Present [x]Absent Bowel Sounds: [x]Present []Absent Hernia: []Present [x]Absent Liver/Spleen: []Hepatosplenomegaly []Organomegaly Absent Musculoskeletal: Inspection of Digits and Nails Cyanosis: []Present [x]Absent Clubbing: []Present [x]Absent Ischemia: []Present [x]Absent Infection: []Present [x]Absent Extremities SCOTT Equally: Except ([]RUE []RLE []LUE []LLE) Strength/Tone: Intact and Normal ([]RUE []RLE []LUE []LLE) Skin: Inspection []Normal []Rash []Lesion []Ulcer Palpation [x]Warm []Cool [x]Dry []Clammy []Nodules []Induration []Skin-tightening Cap-Refill: [x] <3 sec [] >3 seconds (delayed) Neurologic: GCS EYE: 1 - No eye opening GCS MOTOR: 4 - Withdraws from pain GCS VERBAL: 1 - No response Total GCS: 6 [] Sensation grossly intact Psych: Mental Status Alert: [x]Yes [] No Oriented: []x0 []X1 [x]X2 []x3 Mood/Affect [x]Normal []Flat []Agitated []Depressed []Anxious [x]Calm []Sedated []NAD Select Labs within last 24 hours- BMP: Recent Labs 01/31/23 0337 02/01/23 0430 02/02/23 032 NA 137 135 133* K 4.6 4.6 3.9 CL 97* 98 97* CO2 33* 29 29 BUN 37* 36* 32* CREATININE 0.98 0.76 0.75 CALCIUM 9.2 9.2 8.6 LFTs: No results for input(s): AST, ALT, PROT, ALBUMIN, BILITOT, BILIRUBINU, ALKPHOS, LIPASE in the last 72 hours. Glucose: Recent Labs 01/31/23 0337 01/31/23 0342 01/31/23 2059 02/01/23 0355 02/01/23 0430 02/01/23 1241 02/01/23 1742 02/02/23 0023 02/02/23 0326 02/02/23 0919 02/02/23 1200 GLUCOSE 113* -- -- -- 106* -- -- -- 171* -- -- POCGLU -- < > 170* 109* -- 113* 144* 108* 164* 162* 140* < > = values in this interval not displayed. Procal: No results for input(s): PROCAL in the last 72 hours. CBC: Recent Labs 01/31/23 0337 01/31/23 0407 01/31/23 1407 02/01/23 0430 02/01/23 0438 02/02/23 0326 02/02/23 0327 WBC 6.3 -- -- 6.7 -- 6.3 -- HGB 9.0* -- < > 9.5* 10.2 10.0* 10.8 HCT 28.3* 35* -- 29.5* -- 31.4* -- PLT 241 -- -- 262 -- 247 -- MCV 82.1 -- -- 82.0 -- 82.4 -- RDW 18.0* -- -- 17.4* -- 17.3* -- < > = values in this interval not displayed. ABGs: Recent Labs 01/31/23 0407 01/31/23 1407 02/01/23 0438 02/02/23 0327 PHART 7.409 7.352 7.405 7.406 NKM8NEC 53.2* 62.8* 54.7* 49.2* PO2ART 87.1 70.7* 62.9* 67.2* DUE0ESM 33.7* 34.0* 33.5* 30.2* SO2ART 96.5 -- -- -- [id number] -- Vent ETT ETT Lactic Acid: No results for input(s): LACTATE in the last 72 hours. INR: No results for input(s): INR in the last 72 hours. Cardiac Injury Profile: No results for input(s): CKTOTAL, CKMB, TROPONINI in the last 72 hours. Labs in Last 3 months: Lab Results Component Value Date TSH 0.183 (L) 01/26/2023 VITD25 16 (L) 04/05/2021 INR 1.0 01/26/2023 Microbiology- Urine Cx: No results found for: URINECX Blood Cx: Lab Results Component Value Date BLOODCX No growth at 5 days 01/26/2023 Sputum Cx: Lab Results Component Value Date RESPCULT Few normal respiratory olayinka. 04/09/2021 Gram Stain: Lab Results Component Value Date LABGRAM 07/06/2021 Many polymorphonuclear cells/lpf. Few epithelial cells/lpf. Many gram negative bacilli. Few gram positive cocci in clusters. Few gram positive bacilli. PNA PCR: Lab Results Component Value Date HUMANMETAPNE Not Detected 01/27/2023 COVID19: No results found for: COVID19 Legionella Ag: No results found for: LEGIONELLAPN Strep Ag: No results for input(s): STREPPNEUMO in the last 72 hours. Imaging- abnormal CT and CXR CXR IMPRESSION: Endotracheal tube with distal tip above the chun. Extensive bilateral subcutaneous emphysema of the chest and neck. CT IMPRESSION: Small left-sided pneumothorax (approximately 15 percent). Moderate emphysema with bilateral lower lobe bronchiectasis. Patchy right upper and lower lobe infiltrates and bibasilar atelectasis. Pneumomediastinum. Bilateral neck and chest subcutaneous emphysema. Assessment and Plan: Principal Problem: Pneumothorax on left Active Problems: Orthopnea Assessment: 52 y.o. male with PMHx of severe COPD, chronic hypoxemic respiratory failure on 5LPM home O2, history of severe ARDS due to MRSA pneumonia and prolonged respiratory failure requiring tracheostomy in 2015 since decannulated, dysphagia, history of TIA, history of GIB, nephrolithiasis who arrived at [facility] from [facility] for pleural subcutaneous fistula 2/2 chest tube following pneumothorax. CT surgery signed off. We are working to wean him off the vent and sedation. Per previous note, son would like patient to speak with a grief counselor as his father several weeks ago which has drastically affected his health status. Plan: Neuro/psych: - Propofol off - Weaning fentanyl and Precedex gtt - Follows simple commands - CT head not indicated Cardio/hemodynamic: - Hemodynamically stable without vasopressors/inotropes - asymptomatic hypertension, no need to treat. Allow elevated BP while in ICU - EKG: sinus rate 97, normal intervals,. nonischemic - Echo/Bedside echo not indicated - Cap refill brisk Pulm/resp: - Respiratory Failure Type III (Periop/Threatened Airway/high sedation need) - Spo2 > 90% on PCV 14/8 100% +8 - Maintain 100% FiO2 for now given ptx - CTS signed off - Daily CXR improving - Minimal subcutaneous emphysema noted GI: - Diet TF - Indication for stress ulcer prophylaxis: Not indicated - KUB obtained which showed concern for SBO vs ileus - Gen surgery consulted - Daily KUBs - Daily suppositories - NG tube placement if extubated OR keep OG tube if remains intubated - Follow up CT A/P with IV and PO contrast Renal/: - Fluids: Bolus fluids PRN - I/O Goal ID: - Source: none - Abx: +/- ancef x3 pending surgical plans - Cultures NGTD - Leukocytosis in the setting of steroids improved Endo: - Insulin: ICS PRN - Steroids: solumedrol Heme: - ppx: enox - Hgb/plt stable - Daily labs: CBC, BMP, BG GI Prophylaxis: Pantoprazole IV DVT Prophylaxis: SCDs Disposition: Remain in ICU Status Critical Care Time: 55 Total critical care time caring for this patient with life threatening, unstable organ failure, including direct patient contact, management of life support systems, review of data including imaging and labs, discussions with other team members and physicians, excluding procedures. Associated attestation - Walter Coats DO - 02/02/2023 5:26 PM EST I have personally performed a yqkk-pr-[id number] diagnostic evaluation on this patient on date of wgbyxjx84/22/23. History, labs, imaging studies, and electronic medical record have been reviewed by me. This note documented by the [x]warehouse driver []TAM reflects my history, exam, and medical decision making. I have reviewed and agree with the care plan. Changes were made in the orders as necessary. ROS documentation was reviewed and negative unless otherwise stated in HPI. Additional pertinent interval history, ROS, and physical exam findings: Constitutional: General Appearance [x]WDWN []Obese []Cachectic []Thin []Ill Eyes: Inspection of Pupils/Irises Pupils round and react: [x]Yes []No Sclera: []Icteric [x]Non-Icteric Inspection of Conjunctiva/Lids Conjunctiva: []Injected [x]Non-Injected Lids: [x]Intact []Lesion Present ENT/Mouth: External Inspection of ears/nose [x] Normal [] Scar/Lesion/Mass Inspection of teeth/lips/gums Dentition: [x][place] Teeth []Dentures Lips/Gums: []Intact []Lesion Present Mucosa: [x][place] []Moist []Dry Neck: External Appearance Overall Appearance: []Normal [x]Lesion/Mass/Crepitus Present Trachea midline: []Yes []No Thyroid []Normal []Enlarged []Tender []Mass []Absent Respiratory: Respiratory effort []Labored []Non-Labored [x] Mechanically-Ventilated Auscultation []Clear []Crackles []Wheezes []Rhonchi Cardiovascular: Auscultation Rate: [x]Regular []Irregular []Tachycardia []Bradycardia Rhythm: [x]Regular []Irregular Murmur: []Present [x]Absent Extremities Peripheral Edema: []Present []Absent Varicosities: []Present [x]Absent Gastrointestinal: Abdomen Palpation: [x]Soft []Firm []Tender []Non-Tender [x]Distended []Non-distended Mass: []Present [x]Absent Bowel Sounds: [x]Present []Absent Hernia: []Present [x]Absent Liver/Spleen: []Hepatosplenomegaly []Organomegaly Absent Musculoskeletal: Inspection of Digits and Nails Cyanosis: []Present [x]Absent Clubbing: []Present [x]Absent Ischemia: []Present [x]Absent Infection: []Present [x]Absent Extremities SCOTT Equally: Except ([]RUE []RLE []LUE []LLE) Strength/Tone: Intact and Normal ([]RUE []RLE []LUE []LLE) Skin: Inspection []Normal []Rash []Lesion []Ulcer Palpation [x]Warm []Cool [x]Dry []Clammy []Nodules []Induration []Skin-tightening Cap-Refill: [x] <3 sec [] >3 seconds (delayed) Neurologic: GCS EYE: 1 - No eye opening GCS MOTOR: 4 - Withdraws from pain GCS VERBAL: 1 - No response Total GCS: 6 [] Sensation grossly intact Psych: Mental Status Alert: [x]Yes [] No Oriented: []x0 []X1 [x]X2 []x3 Mood/Affect [x]Normal []Flat []Agitated []Depressed []Anxious [x]Calm []Sedated []NAD As per Dr. Guerra's A/P. Patient is weaning well from mechanical ventilation but unfortunately abdomen appears somewhat distended followed by vomitus of tube feeds. His OG tube was placed to low intermittent suction and abdominal films showed developing ileus versus possible early bowel obstruction. Our plan therefore will be to hold off on extubation, will obtain CT scan of the abdomen pelvis aswell as a surgical consult. Will continue to hold the tube feeds today. His chest x-ray continues to improve daily. Will follow closely. Total critical care time for this patient with life-threatening unstable organ failure, including direct patient contact, management of life support systems, review of data including imaging and labs, and discussions with other team members and physicians at least 35 minutes so far today, excludingprocedures. * Peg Ashraf MD - 02/01/2023 7:25 AM EST ICU Progress Note Name: Luis Steele : 1970(52 y.o.) Date: 02/01/23 Team: MICU Attending: Dr. Walter Coats Subjective: Hospital Summary: 52 yoM former smoker with severe COPD, chronic hypoxemic respiratory failure on 5LPM home O2, history of severe ARDS due to MRSA pneumonia and prolonged respiratory failure requiring tracheostomy in 2014 since decannulated, dysphagia, history of TIA, history of GIB, nephrolithiasis. The patient presented to the [place] ED on 01/26/23 with severe respiratory distress and acute onchronic hypoxemia. Portable chest xray demonstrated left lower lateral pneumothorax and a 28Fr chest tube was placed by the ED staff. Due to severe hypoxemia the patient was intubated and admitted tothe [facility] ICU. 01/27: no air leak; CT with small anterior left PTX not being accessed by chest tube. Overnight on chest tube inadvertently dislodged. Stable on vent. No recurrence of PTX 01/28: Extubated to salter high flow 15 lpm. Continuing to treat COPD exacerbation and weaning oxygen 01/29: Throughout the day, patient had increasing emphysema in the neck and shoulder regions. Progressed rapidly, leading to neck swelling and compromise of the airway so patient was emergently re-intubated, given an A-line and sent to [facility] ICU. 01/30: Concern for pleuro-subcutaneous fistula air tracking. CT surgery suggested against emergent surgery at this time and is following. 01/31: Crepitus has improved, and patient was weaned off propofol. CT Sx signed off. Interval Events: NAEO and VSS. Patient is mechanically ventilated. Patient is more alert this morning, is brushing his own teeth and communicating clearly by writing on the white board. Will have an SBT soon Scheduled Meds: budesonide, 0.5 mg, Nebulization, Daily buPROPion, 150 mg, Oral, BID [Held by provider] buPROPion XL, 300 mg, Oral, Daily chlorhexidine, 15 mL, Mouth/Throat, BID enoxaparin, 40 mg, SubCUTAneous, Daily ferrous sulfate, 325 mg, Oral, Every other day guaiFENesin, 200 mg, Oral, q8h influenza, 0.5 mL, IntraMUSCular, Prior to discharge insulin lispro, 0-12 Units, SubCUTAneous, q6h ipratropium-albuterol, 3 mL, Nebulization, Q4H nicotine, 1 patch, TransDERmal, Daily pantoprazole, 40 mg, Oral, Nightly Or pantoprazole (ProtoNix) 40 mg in sodium chloride (PF) 0.9 % 10 mL injection, 40 mg, IntraVENous, Nightly senna-docusate sodium, 1 tablet, Oral, BID sertraline, 100 mg, Oral, Daily Continuous Infusions:dexmedeTOMIDine, 0.1-1.5 mcg/kg/hr, Last Rate: 0.8 mcg/kg/hr (02/01/23 0426) fentaNYL, 25-200 mcg/hr, Last Rate: 100 mcg/hr (02/01/23 0503) propofol, 5-50 mcg/kg/min, Last Rate: Stopped (01/31/23 162) Objective: Last Vitals: BP MAP 97/77 (01/31/23 08) 83 (01/31/23 08) Arterial BP MAP 104/55 (02/01/23699) 70 mmHg (02/01/23699) Temp 36.9 C (98.5 F) (02/01/23 0400) Pulse 66 (02/01/23699) Resp 20 (02/01/23699) SpO2 92 % (02/01/23699) Weight 86.3 kg (190 lb 4.1 oz) (02/01/23599) BMI Body mass index is 27.3 kg/m . I/O: 01/31 700 - 02/01 659 In: 2077 [I.V.:474] Out: 1909 [Urine:1909] Ventilator: Ventilation Day(s): 2 Resp Rate (Set): 20 Vt (Set, mL): 400 mL IP Set (cm H2O): 0 cm H2O FiO2 (%): 50 % PEEP/CPAP (cm H2O): 8 cm H20 Inspiratory Time (sec): 0.9 sec Oxygen Delivery: O2 Flow Rate (L/min): 6 L/min Invasive Lines / Tubes / Drains: Peripheral IV 01/26/23 Distal;Posterior;Right Forearm (Active) Number of days: 3 Peripheral IV 01/29/23 Anterior;Left Forearm (Active) Number of days: 0 NG/OG Tube Orogastric Center mouth (Active) Number of days: 0 Urethral Catheter (Active) Number of days: 0 ETT 7 mm (Active) Number of days: 0 Central Line Indication: NA - patient does not have a central line [place] Indications: Hourly I&Os (Critical Care ONLY) Restraints: Restraints Non-Violent Or Non-Self Destructive Jan 29, 2023 10:34 Pm Est Restraint order already placed. Order is valid for duration of episode. Wounds: Wound/Incision 01/28/23 Incision Back Lateral;Right (Active) Date First Assessed/Time First Assessed: 01/28/23 0800 Primary Wound Type: Incision Location: Back Wound Location Orientation: Lateral;Right Wound Description (Comments): chest tube site, clean dry and intact Constitutional: General Appearance [x]WDWN []Obese []Cachectic []Thin []Ill Eyes: Inspection of Pupils/Irises Pupils round and react: [x]Yes []No Sclera: []Icteric [x]Non-Icteric Inspection of Conjunctiva/Lids Conjunctiva: []Injected [x]Non-Injected Lids: [x]Intact []Lesion Present ENT/Mouth: External Inspection of ears/nose [x] Normal [] Scar/Lesion/Mass Inspection of teeth/lips/gums Dentition: [x][place] Teeth []Dentures Lips/Gums: []Intact []Lesion Present Mucosa: [x][place] []Moist []Dry Neck: External Appearance Overall Appearance: []Normal [x]Lesion/Mass/Crepitus Present Trachea midline: []Yes []No Thyroid []Normal []Enlarged []Tender []Mass []Absent Respiratory: Respiratory effort []Labored []Non-Labored [x] Mechanically-Ventilated Auscultation []Clear []Crackles []Wheezes []Rhonchi Cardiovascular: Auscultation Rate: [x]Regular []Irregular []Tachycardia []Bradycardia Rhythm: [x]Regular []Irregular Murmur: []Present [x]Absent Extremities Peripheral Edema: []Present []Absent Varicosities: []Present [x]Absent Gastrointestinal: Abdomen Palpation: []Soft []Firm []Tender []Non-Tender [x]Distended []Non-distended Mass: []Present [x]Absent Bowel Sounds: [x]Present []Absent Hernia: []Present [x]Absent Liver/Spleen: []Hepatosplenomegaly []Organomegaly Absent Musculoskeletal: Inspection of Digits and Nails Cyanosis: []Present [x]Absent Clubbing: []Present [x]Absent Ischemia: []Present [x]Absent Infection: []Present [x]Absent Extremities SCOTT Equally: Except ([]RUE []RLE []LUE []LLE) Strength/Tone: Intact and Normal ([]RUE []RLE []LUE []LLE) Skin: Inspection []Normal []Rash []Lesion []Ulcer Palpation [x]Warm []Cool [x]Dry []Clammy []Nodules []Induration []Skin-tightening Cap-Refill: [x] <3 sec [] >3 seconds (delayed) Neurologic: GCS EYE: 1 - No eye opening GCS MOTOR: 4 - Withdraws from pain GCS VERBAL: 1 - No response Total GCS: 6 [] Sensation grossly intact Psych: Mental Status Alert: []Yes [x] No Oriented: [x]x0 []X1 []X2 []x3 Mood/Affect []Normal []Flat []Agitated []Depressed []Anxious []Calm [x]Sedated []NAD Select Labs within last 24 hours- BMP: Recent Labs 01/30/23 0341 01/31/23 0337 02/01/23 0430 NA 138 137 135 K 5.1 4.6 4.6 CL 97* 97* 98 CO2 35* 33* 29 BUN 28* 37* 36* CREATININE 0.84 0.98 0.76 CALCIUM 8.5 9.2 9.2 LFTs: Recent Labs 01/29/23 2123 AST 40 ALT 31 PROT 7.8 ALBUMIN 4.5 BILITOT 1.0 ALKPHOS 44 Glucose: Recent Labs 01/29/23 2123 01/29/23 2145 01/30/23 0341 01/30/23 0343 01/30/23 0925 01/30/23 1647 01/30/23 2100 01/31/23 0337 01/31/23 0342 01/31/23 1022 01/31/23 1604 01/31/23 2059 02/01/23 0355 02/01/23 0430 GLUCOSE 106* -- 95 -- -- -- -- 113* -- -- -- -- -- 106* POCGLU -- < > -- < > 83 103* 122* -- 118* 107* 160* 170* 109* -- < > = values in this interval not displayed. Procal: No results for input(s): PROCAL in the last 72 hours. CBC: Recent Labs 01/30/23 03401/30/23 0342 01/31/23 0337 01/31/23 0407 01/31/23 1407 02/01/23 0430 02/01/23 0438 WBC 8.0 -- 6.3 -- -- 6.7 -- HGB 9.6* < > 9.0* -- 10.1 9.5* 10.2 HCT 30.0* -- 28.3* 35* -- 29.5* -- PLT 261 -- 241 -- -- 262 -- MCV 82.5 -- 82.1 -- -- 82.0 -- RDW 18.3* -- 18.0* -- -- 17.4* -- < > = values in this interval not displayed. ABGs: Recent Labs 01/30/23 1850 01/31/23 0407 01/31/23 1407 02/01/23 0438 PHART 7.347* 7.409 7.352 7.405 [id number] 61.7* 53.2* 62.8* 54.7* PO2ART 81.0 87.1 70.7* 62.9* [id number] 33.1* 33.7* 34.0* 33.5* SO2ART -- 96.5 -- -- [id number] Vent -- Vent ETT Lactic Acid: No results for input(s): LACTATE in the last 72 hours. INR: No results for input(s): INR in the last 72 hours. Cardiac Injury Profile: No results for input(s): CKTOTAL, CKMB, TROPONINI in the last 72 hours. Labs in Last 3 months: Lab Results Component Value Date TSH 0.183 (L) 01/26/2023 VITD25 16 (L) 04/05/2021 INR 1.0 01/26/2023 Microbiology- Urine Cx: No results found for: URINECX Blood Cx: Lab Results Component Value Date BLOODCX No growth at 5 days 01/26/2023 Sputum Cx: Lab Results Component Value Date RESPCULT Few normal respiratory olayinka. 04/09/2021 Gram Stain: Lab Results Component Value Date LABGRAM 07/06/2021 Many polymorphonuclear cells/lpf. Few epithelial cells/lpf. Many gram negative bacilli. Few gram positive cocci in clusters. Few gram positive bacilli. PNA PCR: Lab Results Component Value Date HUMANMETAPNE Not Detected 01/27/2023 COVID19: No results found for: COVID19 Legionella Ag: No results found for: LEGIONELLAPN Strep Ag: No results for input(s): STREPPNEUMO in the last 72 hours. Imaging- abnormal CT and CXR CXR IMPRESSION: Endotracheal tube with distal tip above the chun. Extensive bilateral subcutaneous emphysema of the chest and neck. CT IMPRESSION: Small left-sided pneumothorax (approximately 15 percent). Moderate emphysema with bilateral lower lobe bronchiectasis. Patchy right upper and lower lobe infiltrates and bibasilar atelectasis. Pneumomediastinum. Bilateral neck and chest subcutaneous emphysema. Assessment and Plan: Principal Problem: Pneumothorax on left Active Problems: Orthopnea Assessment: 52 y.o. male with PMHx of severe COPD, chronic hypoxemic respiratory failure on 5LPM home O2, history of severe ARDS due to MRSA pneumonia and prolonged respiratory failure requiring tracheostomy in 2015 since decannulated, dysphagia, history of TIA, history of GIB, nephrolithiasis who arrived at [facility] from [facility] for pleural subcutaneous fistula 2/2 chest tube following pneumothorax. CT surgery signed off. We are working to wean him off the vent. Spoke with son who would like for him to speak with a grief counselor as his father several weeks ago and this has drastically affected his health status. Plan: Neuro/psych: - Propofol is off - Fentanyl - Paused for neuro eval, follows simple commands, - CT head not indicated Cardio/hemodynamic: - Hemodynamically stable without vasopressors/inotropes - asymptomatic hypertension, no need to treat. Allow elevated BP while in ICU - EKG: sinus rate 97, normal intervals,. nonischemic - Echo/Bedside echo not indicated - Cap refill brisk Pulm/resp: - Respiratory Failure Type III (Periop/Threatened Airway/high sedation need) - Spo2 > 90% on PCV 14/8 100% +8 - gas/XR pending - Maintain 100% FiO2 for now given ptx - CTS signed off - Daily CXR GI: - Diet TF diet once OGT placed - Indication for stress ulcer prophylaxis: Not indicated - Abd imaging not indcated - abd soft, non distended Renal/: - Fluids: Bolus fluids PRN - I/O Goal ID: - Source: none - Abx: +/- ancef x3 pending surgical plans - Cultures NGTD - leukocytosis in the setting of steriods Endo: - Insulin: ICS PRN - Steroids: solumedrol Heme: - ppx: enox - Hgb/plt stable - Daily labs: CBC, BMP, BG GI Prophylaxis: Pantoprazole IV DVT Prophylaxis: SCDs Disposition: Remain in ICU Status Critical Care Time: 55 Total critical care time caring for this patient with life threatening, unstable organ failure, including direct patient contact, management of life support systems, review of data including imaging and labs, discussions with other team members and physicians, excluding procedures. Associated attestation - Walter Coats DO - 02/01/2023 6:00 PM EST I have personally performed a [id number] diagnostic evaluation on this patient on date of kxikpqd15/21/23. History, labs, imaging studies, and electronic medical record have been reviewed by me. This note documented by the [x]warehouse driver []TAM reflects my history, exam, and medical decision making. I have reviewed and agree with the care plan. Changes were made in the orders as necessary. ROS documentation was reviewed and negative unless otherwise stated in HPI. Additional pertinent interval history, ROS, and physical exam findings: Constitutional: General Appearance [x]WDWN []Obese []Cachectic []Thin []Ill Eyes: Inspection of Pupils/Irises Pupils round and react: [x]Yes []No Sclera: []Icteric [x]Non-Icteric Inspection of Conjunctiva/Lids Conjunctiva: []Injected [x]Non-Injected Lids: [x]Intact []Lesion Present ENT/Mouth: External Inspection of ears/nose [x] Normal [] Scar/Lesion/Mass Inspection of teeth/lips/gums Dentition: [x][place] Teeth []Dentures Lips/Gums: []Intact []Lesion Present Mucosa: [x][place] []Moist []Dry Neck: External Appearance Overall Appearance: []Normal [x]Lesion/Mass/Crepitus Present Trachea midline: []Yes []No Thyroid []Normal []Enlarged []Tender []Mass []Absent Respiratory: Respiratory effort []Labored []Non-Labored [x] Mechanically-Ventilated Auscultation []Clear []Crackles []Wheezes []Rhonchi Cardiovascular: Auscultation Rate: [x]Regular []Irregular []Tachycardia []Bradycardia Rhythm: [x]Regular []Irregular Murmur: []Present [x]Absent Extremities Peripheral Edema: []Present []Absent Varicosities: []Present [x]Absent Gastrointestinal: Abdomen Palpation: []Soft []Firm []Tender []Non-Tender [x]Distended []Non-distended Mass: []Present [x]Absent Bowel Sounds: [x]Present []Absent Hernia: []Present [x]Absent Liver/Spleen: []Hepatosplenomegaly []Organomegaly Absent Musculoskeletal: Inspection of Digits and Nails Cyanosis: []Present [x]Absent Clubbing: []Present [x]Absent Ischemia: []Present [x]Absent Infection: []Present [x]Absent Extremities SCOTT Equally: Except ([]RUE []RLE []LUE []LLE) Strength/Tone: Intact and Normal ([]RUE []RLE []LUE []LLE) Skin: Inspection []Normal []Rash []Lesion []Ulcer Palpation [x]Warm []Cool [x]Dry []Clammy []Nodules []Induration []Skin-tightening Cap-Refill: [x] <3 sec [] >3 seconds (delayed) Neurologic: GCS EYE: 1 - No eye opening GCS MOTOR: 4 - Withdraws from pain GCS VERBAL: 1 - No response Total GCS: 6 [] Sensation grossly intact Psych: Mental Status Alert: []Yes [x] No Oriented: [x]x0 []X1 []X2 []x3 Mood/Affect []Normal []Flat []Agitated []Depressed []Anxious []Calm [x]Sedated []NAD As per Dr. Ashraf's A/P. Weaning off vent,,fentanyl. On precedex. Minimal subcutaneous emphysema noted. CXR improved. Hope to be able to extubate tomorrow. Total critical care time for this patient with life-threatening unstable organ failure, including direct patient contact, management of life support systems, review of data including imaging and labs, and discussions with other team members and physicians at least 33 minutes so far today, excludingprocedures. * Marlene Sandoval RRT - 02/01/2023 3:31 AM EST PEEP increased to 8 per hospital policy * Geno Thomas RD - 01/31/2023 1:59 PM EST Nutrition Assessment Type and Reason for Visit: Reassess Nutrition Recommendations/Plan: Pt is currently ordered Vital HP at 40 ml/hr + 131 propofol kcals (at rate of 4.96 ml/hr) to provide a total of 1091 kcal, 73 g protein, and 702 ml free water (14 kcal and 1.0 g protein per kg IBW) -NOT meeting pt's estimated energy or protein requirements To better meet pt's estimated nutrition needs, recommend to modify EN as follows: Vital 1.5 at goalrate of 55 ml/hr to provide 1980 kcal, 89 g protein, and 1008 ml free water (26 kcal and 1.2 g protein per kg IBW) RD will monitor TF intake and tolerance, weight, labs, overall nutrition status and will follow weekly Malnutrition Assessment: Malnutrition Status: Insufficient data Context: Acute Illness Findings of the 6 clinical characteristics of malnutrition: Energy Intake: Mild decrease in energy intake (Comment) (TF not meeting needs with decreasing oropofol rate) Weight Loss: No significant weight loss Body Fat Loss: Unable to assess Muscle Mass Loss: Unable to assess Fluid Accumulation: Mild Extremities (per flowsheet) Convertible Sofa Bedspring Tester Strength: Not Performed Nutrition Assessment: Pt with PMH including former smoker with severe COPD, chronic hypoxemic respiratory failure on 5LPMhome O2, history of severe ARDS due to MRSA pneumonia and prolonged respiratory failure requiring tracheostomy in 2014 since decannulated, dysphagia, history of TIA, history of GIB, nephrolithiasis, p resented to [place] ED on 01/26/23 with severe respiratory distress and acute on chronic hypoxemia. CXR demonstrated left lower lateral pneumothorax and a 28Fr chest tube was placed by the ED staff. Due to severe hypoxemia the patient was intubated and admitted to the [facility] ICU. On 01/28 the patient was extubated to salter high flow 15 LPM. He then developed rapid neck and facial swelling so he was intubated emergently on 01/29 and transferred to [facility] for concern for pleural fistula. Pt was found with diffuse subcutaneous emphysema noted, unable to open eyes due to this. CT chest with small left-sided pneumothorax approximately 15%, moderate emphysema, pneumomediastinum, extensive bilateral n chema and chest subcutaneous emphysema. Subcutaneus emphysema improving. Pt remains intubated and sedated. TF at goal this a.m. (Vital HP at 40 ml/hr). Propofol at 4.96 ml/hr Estimated Daily Nutrient Needs: Energy Requirements Based On: Kcal/kg Weight Used for Energy Requirements: [place] Weight for Energy Calculation (kg): 78 kg Total Energy Requirements (kcals/day): 5931-5420 (25-30 kcal/kg IBW) Weight Used for Protein Requirements: [place] Weight in Kg Used for Protein Requirements: 78 kg Estimated Total Protein (g/day): 117-156 (1.5-2.0 g protein/kg IBW) Estimated Daily Total Fluid (ml/day): per MD Additional Calorie Sources: +131 kcals from propofol (decreased rate d/t hypotension) Nutrition Related Findings: Lives with: Alone Teeth: Missing teeth Room Service Room Service: Assist Nasim Scale Score: 14 .Wound Type: None Net IO Since Admission: -1,174.02 mL [01/31/23 1359] Edema: RUE Edema: Trace, LUE Edema: Trace, RLE Edema: Non-pitting, LLE Edema: Non-pitting Bowel Sounds (All Quadrants): Hypoactive Abdomen Inspection: Soft Last BM Date: 01/30/23 (per night RN) Labs and meds reviewed: budesonide, 0.5 mg, Nebulization, Daily buPROPion, 150 mg, Oral, BID [Held by provider] buPROPion XL, 300 mg, Oral, Daily chlorhexidine, 15 mL, Mouth/Throat, BID [Held by provider] enoxaparin, 40 mg, SubCUTAneous, Daily ferrous sulfate, 325 mg, Oral, Daily with breakfast guaiFENesin, 200 mg, Oral, q8h influenza, 0.5 mL, IntraMUSCular, Prior to discharge insulin lispro, 0-12 Units, SubCUTAneous, q6h ipratropium-albuterol, 3 mL, Nebulization, Q4H lidocaine, , Topical, Once midazolam, 4 mg, IntraVENous, Once nicotine, 1 patch, TransDERmal, Daily oxymetazoline, 2 spray, Each Nostril, Once pantoprazole, 40 mg, Oral, Nightly Or pantoprazole (ProtoNix) 40 mg in sodium chloride (PF) 0.9 % 10 mL injection, 40 mg, IntraVENous, Nightly senna-docusate sodium, 1 tablet, Oral, BID sertraline, 100 mg, Oral, Daily dexmedeTOMIDine, 0.1-1.5 mcg/kg/hr, Last Rate: 0.2 mcg/kg/hr (01/31/23 1219) fentaNYL, 25-200 mcg/hr, Last Rate: 150 mcg/hr (01/31/23 1214) propofol, 5-50 mcg/kg/min, Last Rate: 10 mcg/kg/min (01/31/23 1218) BMP: Recent Labs 01/29/233 01/30/23 0341 01/31/23 0337 NA 137 138 137 K 5.2* 5.1 4.6 CL 98 97* 97* CO2 27 35* 33* BUN 26* 28* 37* CREATININE 0.86 0.84 0.98 GLUCOSE 106* 95 113* CALCIUM 9.1 8.5 9.2 Recent Labs 01/30/23 0343 01/30/23 0925 01/30/23 1647 01/30/23 2100 01/31/23 0342 01/31/23 1022 POCGLU 92 83 103* 122* 118* 107* Lab Results Component Value Date HGBA1C 5.0 01/27/2023 Lab Results Component Value Date TRIG 124 01/26/2023 Current Nutrition Therapies: Diet, tube feeding no tray Orogastric; Vital High Protein; Continuous; Yes; 10; Q 4 Hours; 10; 40; 200; Q 6 Hours Current Oral Intake Average Meal Intake: NPO Average Supplements Intake: NPO Additional Calorie Sources Additional Calorie Sources: +131 kcals from propofol (decreased rate d/t hypotension) Anthropometric Measures: Height: 177.8 cm (5' 10) Current Body Weight: 81.6 kg (179 lb 14.3 oz) Admission Body Weight: 84.1 kg (185 lb 6.5 oz) Usual Body Weight: 73 kg (161 lb) (157.4# 02/10/22; 161# 09/06/22; 168.9# 10/19/22; 171.7# 11/13/22) % Weight Change (Calculated): 15.2 [place] Body Weight (lbs) (Calculated): 166 lbs [place] Body Weight (Kg) (Calculated): 75 kg % [place] Body Weight (Calculated): 107.8 % BMI (kg/m2) (Calculated): 25.8 BMI Categories: Overweight (BMI 25.0-29.9) Wt Readings from Last 10 Encounters: 01/31/23 81.6 kg (179 lb 14.3 oz) 11/27/22 77.1 kg (170 lb) Nutrition Diagnosis: Increased nutrient needs related to impaired respiratory function, increase demand for energy/nutrients as evidenced by nutrition support - enteral nutrition, NPO or clear liquid status due to medical condition Nutrition Interventions: Food and/or Nutrient Delivery: Continue NPO, Modify Tube Feeding Nutrition Education/Counseling: Education not indicated Coordination of Nutrition Care: Continue to monitor while inpatient Plan of Care discussed with: Dr Trejo Goals: Goals: Tolerate nutrition support at goal rate, by next RD assessment Nutrition Monitoring and Evaluation: Behavioral-Environmental Outcomes: None Identified Food/Nutrient Intake Outcomes: Enteral Nutrition Intake/Tolerance Physical Signs/Symptoms Outcomes: Biochemical Data, Nausea or Vomiting, Skin, Weight, Chewing or Swallowing, Nutrition Focused Physical Findings, Meal Time Behavior, Hemodynamic Status Discharge Planning: Too soon to determine Geno Thomas RD, LD Contact: *[phone] or via [employer] chat * Celeste Panda MD - 01/31/2023 8:[address] SURGERY Progress Note PATIENT NAME: Luis Steele TODAY'S DATE: 01/31/2023 SUBJECTIVE: Intubated/sedated. Follows commands and communicating via writing yesterday per nursing. Subcutaneous emphysema much improved today; patient also endorsed that he felt his swelling has gone down compared to yesterday. OBJECTIVE: VITALS: BP 97/77 Pulse 75 Temp 37.4 C (99.4 F) (Temporal) Resp 26 Ht 5' 10 (1.778 m) Wt 179 lb 14.3 oz (81.6 kg) SpO2 96% PF 44 L/min BMI 25.81 kg/m INTAKE/OUTPUT: I/O last 3 completed shifts: In: 1800 (22.1 mL/kg) [I.V.:925 (11.3 mL/kg); NG/GT:875] Out: 2775 (34 mL/kg) [Urine:2700 (0.9 mL/kg/hr); Emesis/NG output:75] Weight: 81.6 kg No intake/output data recorded. REVIEW OF SYSTEMS: Pertinent positives and negatives as per interval history section. PHYSICAL EXAM: CONSTITUTIONAL: No acute distress. Intubated/sedated, opens eyes to command CARDIOVASCULAR: RRR LUNGS: Mech vent 60%/5, L chest wall/neck emphysema much improved, occlusive dressing over prior chest tube site GI: soft, NTND, TF via OGT : No CVA tenderness, no suprapubic tenderness MUSCULOSKELETAL: Normal range of motion and no gross deformity in bilateral upper/lower extremities SKIN: Warm, dry, well-perfused Data: CBC: Recent Labs 01/29/23 2123 01/30/23 0341 01/30/23 0342 01/30/23 1736 01/30/23 1850 01/31/23 0337 01/31/23 0407 WBC 8.5 8.0 -- -- -- 6.3 -- HGB 10.9 10.3* 9.6* < > 11.3 10.1 9.0* -- HCT 32.8* 30.0* -- -- -- 28.3* 35* PLT 232 261 -- -- -- 241 -- < > = values in this interval not displayed. BMP: Recent Labs 01/29/23212201/30/2334001/31/23 0337 NA 137 138 137 K 5.2* 5.1 4.6 CL 98 97* 97* CO2 27 35* 33* BUN 26* 28* 37* CREATININE 0.86 0.84 0.98 GLUCOSE 106* 95 113* Hepatic: Recent Labs 01/29/2335601/29/232122 AST 70* 40 ALT 35 31 BILITOT 0.6 1.0 ALKPHOS 43 44 ASSESSMENT AND PLAN: 52M who initially p/w AHRF and underwent L open chest tube placement 01/26 for large L PTX likely from spontaneous bleb rupture in setting of severe baseline emphysema. The chest tube was inadvertently dislodged that night, and patient was extubated then emergently reintubated 2/2 significant subcutaneous emphysema. Transferred to [facility] ICU, and subcutaneus emphysema is improving. - Subcutaneous emphysema much improved. No indication for chest tube reinsertion or desir slits at this time given improvement - Review of prior CTs - concern for prior chest tube placement into large bleb - Wean positive pressure and vent as able. Patient oxygenating well. - Ensure prior chest tube site is completely occluded with dressing - Daily CXR - On 5LNC at home - 01/26 MSSA nares (+) - 01/26 legionella/strep urine Ag (-) - 01/27 resp panel (-) - Further care per MICU - CTS will sign off at this time, but please call with any questions/concerns Celeste Panda MD General Surgery, PGY-3 #[id number] PAGING: From 6a-6p (-s): Page me at [phone] From 6-6a (-s): - Surg ICU Patients: Page [phone] - Surg Floor Patients: Page [phone] Associated attestation - Dorys Wong DO - 02/02/2023 11:46 AM EST ATTESTATION The patient was seen and examined. I have reviewed the patients presentation, histories, imaging and serology studies. I agree with the above assessment and plan. My date of service is 01/31/23. Subcutaneous emphysema continues to improve. No acute surgical interventions. No need for desir slits or chest tube. Will sign off at this time, please reconsult with questions or concerns. I (Dorys Wong) personally supervised the resident in the evaluation and development of a treatment plan for this patient including using nursing/ems notes. I personally discussed the review of systems and interviewed the patient along with performing a physical examination, answering questions and discussing treatment options as applicable. I have also reviewed and agree with the past medical, family and social history unless otherwise noted and personally reviewed the imaging and labs. This note may be a delayed entry. A total of 35 minutes were spent between the face to face encounter, physical exam, reviewing the medical history, coordinating the patient's care, counseling/educating the patient, ordering prescript ions/medications/tests/procedures, interpreting results and documenting clinical information in thepatient's electronic health record on the day of the encounter. The patient was seen and examined independently and relevant data reviewed by myself. A full chart review was performed. 1. Pneumothorax on left 2. Acute respiratory failure with hypoxia (HCC) 3. Orthopnea Electronically signed by Dorys Wong DO, MS, FACOS * Peg Ashraf MD - 01/31/2023 7:16 AM EST ICU Progress Note Name: Luis Steele : 1970(52 y.o.) Date: 01/31/23 Team: MICU Attending: Dr. Walter Coats Subjective: Hospital Summary: 52 yoM former smoker with severe COPD, chronic hypoxemic respiratory failure on 5LPM home O2, history of severe ARDS due to MRSA pneumonia and prolonged respiratory failure requiring tracheostomy in 2014 since decannulated, dysphagia, history of TIA, history of GIB, nephrolithiasis. The patient presented to the [place] ED on 01/26/23 with severe respiratory distress and acute onchronic hypoxemia. Portable chest xray demonstrated left lower lateral pneumothorax and a 28Fr chest tube was placed by the ED staff. Due to severe hypoxemia [facility]: no air leak; CT with small anterior left PTX not being accessed by chest tube. Overnight on chest tube inadvertently dislodged. Stable on vent. No recurrence of PTX 01/28: Extubated to salter high flow 15 lpm. Continuing to treat COPD exacerbation and weaning oxygen 01/29: Throughout the day, patient had increasing emphysema in the neck and shoulder regions. Progressed rapidly, leading to neck swelling and compromise of the airway so patient was emergently re-intubated, given an A-line and sent to [facility] ICU. Concern for pleuro-subcutaneous fistula air tracking. CT surgery suggested against emergent surgeryat this time and is following. Interval Events: NAEO and VSS. Patient is mechanically ventilated. Crepitus has improved since yesterday. Patient isalso less sedated, can follow commands and answer questions by nodding his head. Scheduled Meds: budesonide, 0.5 mg, Nebulization, Daily buPROPion, 150 mg, Oral, BID [Held by provider] buPROPion XL, 300 mg, Oral, Daily chlorhexidine, 15 mL, Mouth/Throat, BID [Held by provider] enoxaparin, 40 mg, SubCUTAneous, Daily ferrous sulfate, 325 mg, Oral, Daily with breakfast guaiFENesin, 200 mg, Oral, q8h influenza, 0.5 mL, IntraMUSCular, Prior to discharge insulin lispro, 0-12 Units, SubCUTAneous, q6h ipratropium-albuterol, 3 mL, Nebulization, Q4H lidocaine, , Topical, Once methylPREDNISolone sod suc (PF), 40 mg, IntraVENous, q24h midazolam, 4 mg, IntraVENous, Once nicotine, 1 patch, TransDERmal, Daily oxymetazoline, 2 spray, Each Nostril, Once pantoprazole, 40 mg, Oral, Nightly Or pantoprazole (ProtoNix) 40 mg in sodium chloride (PF) 0.9 % 10 mL injection, 40 mg, IntraVENous, Nightly senna-docusate sodium, 1 tablet, Oral, BID sertraline, 100 mg, Oral, Daily Continuous Infusions:fentaNYL, 25-200 mcg/hr, Last Rate: 175 mcg/hr (01/31/23608) propofol, 5-50 mcg/kg/min, Last Rate: 15 mcg/kg/min (01/31/23608) Objective: Last Vitals: BP MAP 90/63 (01/31/23399) 72 (01/31/23399) Arterial BP MAP 129/68 (01/31/23599) 86 mmHg (01/31/23599) Temp 37.4 C (99.4 F) (01/30/231999) Pulse 72 (01/31/23599) Resp 26 (01/31/23599) SpO2 100 % (01/31/23599) Weight 81.6 kg (179 lb 14.3 oz) (01/31/23599) BMI Body mass index is 25.81 kg/m . I/O: 01/30 700 - 01/31 659 In: 1535 [I.V.:660] Out: 1885 [Urine:1810] Ventilator: Ventilation Day(s): 2 Resp Rate (Set): 26 Vt (Set, mL): 400 mL IP Set (cm H2O): 0 cm H2O FiO2 (%): 60 % PEEP/CPAP (cm H2O): 5 cm H20 Inspiratory Time (sec): 0.9 sec Oxygen Delivery: O2 Flow Rate (L/min): 6 L/min Invasive Lines / Tubes / Drains: Peripheral IV 01/26/23 Distal;Posterior;Right Forearm (Active) Number of days: 3 Peripheral IV 01/29/23 Anterior;Left Forearm (Active) Number of days: 0 NG/OG Tube Orogastric Center mouth (Active) Number of days: 0 Urethral Catheter (Active) Number of days: 0 ETT 7 mm (Active) Number of days: 0 Central Line Indication: NA - patient does not have a central line Emerosn Indications: Hourly I&Os (Critical Care ONLY) Restraints: Restraints Non-Violent Or Non-Self Destructive Jan 29, 2023 10:34 Pm Est Restraint order already placed. Order is valid for duration of episode. Wounds: Wound/Incision 01/28/23 Incision Back Lateral;Right (Active) Date First Assessed/Time First Assessed: 01/28/23 0800 Primary Wound Type: Incision Location: Back Wound Location Orientation: Lateral;Right Wound Description (Comments): chest tube site, clean dry and intact Constitutional: General Appearance [x]WDWN []Obese []Cachectic []Thin []Ill Eyes: Inspection of Pupils/Irises Pupils round and react: [x]Yes []No Sclera: []Icteric [x]Non-Icteric Inspection of Conjunctiva/Lids Conjunctiva: []Injected [x]Non-Injected Lids: [x]Intact []Lesion Present ENT/Mouth: External Inspection of ears/nose [x] Normal [] Scar/Lesion/Mass Inspection of teeth/lips/gums Dentition: [x][place] Teeth []Dentures Lips/Gums: []Intact []Lesion Present Mucosa: [x][place] []Moist []Dry Neck: External Appearance Overall Appearance: []Normal [x]Lesion/Mass/Crepitus Present Trachea midline: []Yes []No Thyroid []Normal []Enlarged []Tender []Mass []Absent Respiratory: Respiratory effort []Labored []Non-Labored [x] Mechanically-Ventilated Auscultation []Clear []Crackles []Wheezes []Rhonchi Cardiovascular: Auscultation Rate: [x]Regular []Irregular []Tachycardia []Bradycardia Rhythm: [x]Regular []Irregular Murmur: []Present [x]Absent Extremities Peripheral Edema: []Present []Absent Varicosities: []Present [x]Absent Gastrointestinal: Abdomen Palpation: []Soft []Firm []Tender []Non-Tender [x]Distended []Non-distended Mass: []Present [x]Absent Bowel Sounds: [x]Present []Absent Hernia: []Present [x]Absent Liver/Spleen: []Hepatosplenomegaly []Organomegaly Absent Musculoskeletal: Inspection of Digits and Nails Cyanosis: []Present [x]Absent Clubbing: []Present [x]Absent Ischemia: []Present [x]Absent Infection: []Present [x]Absent Extremities SCOTT Equally: Except ([]RUE []RLE []LUE []LLE) Strength/Tone: Intact and Normal ([]RUE []RLE []LUE []LLE) Skin: Inspection []Normal []Rash []Lesion []Ulcer Palpation [x]Warm []Cool [x]Dry []Clammy []Nodules []Induration []Skin-tightening Cap-Refill: [x] <3 sec [] >3 seconds (delayed) Neurologic: GCS EYE: 1 - No eye opening GCS MOTOR: 4 - Withdraws from pain GCS VERBAL: 1 - No response Total GCS: 6 [] Sensation grossly intact Psych: Mental Status Alert: []Yes [x] No Oriented: [x]x0 []X1 []X2 []x3 Mood/Affect []Normal []Flat []Agitated []Depressed []Anxious []Calm [x]Sedated []NAD [facility] within last 24 hours- BMP: Recent Labs 01/29/23212201/30/2334001/31/23 0337 NA 137 138 137 K 5.2* 5.1 4.6 CL 98 97* 97* CO2 27 35* 33* BUN 26* 28* 37* CREATININE 0.86 0.84 0.98 CALCIUM 9.1 8.5 9.2 LFTs: Recent Labs 01/29/2335601/29/232122 AST 70* 40 ALT 35 31 PROT 7.7 7.8 ALBUMIN 4.3 4.5 BILITOT 0.6 1.0 ALKPHOS 43 44 Glucose: Recent Labs 01/29/23 0357 01/29/23 0703 01/29/23 1150 01/29/23 1643 01/29/23212201/29/23 2145 01/30/23 0341 01/30/23 0343 01/30/23 0925 01/30/23 1647 01/30/23 2100 01/31/23 0337 01/31/23 034 GLUCOSE 89 -- -- -- 106* -- 95 -- -- -- -- 113* -- POCGLU -- < > 82 97 -- 95 -- 92 83 103* 122* -- 118* < > = values in this interval not displayed. Procal: Recent Labs 01/28/232011 PROCAL 0.25* CBC: Recent Labs 01/29/233 01/30/23 03401/30/232 01/30/23 17301/30/23 18501/31/2333601/31/23 0407 WBC 8.5 8.0 -- -- -- 6.3 -- HGB 10.9 10.3* 9.6* < > 11.3 10.1 9.0* -- HCT 32.8* 30.0* -- -- -- 28.3* 35* PLT 232 261 -- -- -- 241 -- MCV 83.5 82.5 -- -- -- 82.1 -- RDW 18.5* 18.3* -- -- -- 18.0* -- < > = values in this interval not displayed. ABGs: Recent Labs 01/30/23 0801/30/23173501/30/23184901/31/23406 PHART 7.275* 7.165* 7.347* 7.409 [id number] 73.6* 97.6* 61.7* 53.2* PO2ART 137.5* 86.5 81.0 87.1 [id number] 33.4* 34.4* 33.1* 33.7* SO2ART -- -- -- 96.5 [id number] Vent Vent Vent -- Lactic Acid: No results for input(s): LACTATE in the last 72 hours. INR: No results for input(s): INR in the last 72 hours. Cardiac Injury Profile: No results for input(s): CKTOTAL, CKMB, TROPONINI in the last 72 hours. Labs in Last 3 months: Lab Results Component Value Date TSH 0.183 (L) 01/26/2023 VITD25 16 (L) 04/05/2021 INR 1.0 01/26/2023 Microbiology- Urine Cx: No results found for: URINECX Blood Cx: Lab Results Component Value Date BLOODCX No growth at 4 days 01/26/2023 Sputum Cx: Lab Results Component Value Date RESPCULT Few normal respiratory olaynika. 04/09/2021 Gram Stain: Lab Results Component Value Date LABGRAM 07/06/2021 Many polymorphonuclear cells/lpf. Few epithelial cells/lpf. Many gram negative bacilli. Few gram positive cocci in clusters. Few gram positive bacilli. PNA PCR: Lab Results Component Value Date HUMANMETAPNE Not Detected 01/27/2023 COVID19: No results found for: COVID19 Legionella Ag: No results found for: LEGIONELLAPN Strep Ag: No results for input(s): STREPPNEUMO in the last 72 hours. Imaging- abnormal CT and CXR CXR IMPRESSION: Endotracheal tube with distal tip above the chun. Extensive bilateral subcutaneous emphysema of the chest and neck. CT IMPRESSION: Small left-sided pneumothorax (approximately 15 percent). Moderate emphysema with bilateral lower lobe bronchiectasis. Patchy right upper and lower lobe infiltrates and bibasilar atelectasis. Pneumomediastinum. Bilateral neck and chest subcutaneous emphysema. Assessment and Plan: Principal Problem: Pneumothorax on left Active Problems: Orthopnea Assessment: 52 y.o. male with PMHx of severe COPD, chronic hypoxemic respiratory failure on 5LPM home O2, history of severe ARDS due to MRSA pneumonia and prolonged respiratory failure requiring tracheostomy in 2015 since decannulated, dysphagia, history of TIA, history of GIB, nephrolithiasis who arrived at [facility] from [facility] for pleural subcutaneous fistula 2/2 chest tube following pneumothorax. CT surgery signed off. We are working to wean him off the vent. Spoke with son who would like for him to speak with a grief counselor as his father several weeks ago and this has drastically affected his health status. Plan: Neuro/psych: - Propofol/fentanyl - Paused for neuro eval, follows simple commands, - CT head not indicated Cardio/hemodynamic: - Hemodynamically stable without vasopressors/inotropes - asymptomatic hypertension, no need to treat. Allow elevated BP while in ICU - EKG: sinus rate 97, normal intervals,. nonischemic - Echo/Bedside echo not indicated - Cap refill brisk Pulm/resp: - Respiratory Failure Type III (Periop/Threatened Airway/high sedation need) - Spo2 > 90% on PCV 14/8 100% +8 - gas/XR pending - Maintain 100% FiO2 for now given ptx - CTS signed off - Daily CXR GI: - Diet TF diet once OGT placed - Indication for stress ulcer prophylaxis: Not indicated - Abd imaging not indcated - abd soft, non distended Renal/: - Emerson to be removed, not indicated - Fluids: Bolus fluids PRN - I/O Goal Goal even ID: - Source: none - Abx: +/- ancef x3 pending surgical plans - Cultures NGTD - leukocytosis in the setting of steriods Endo: - Insulin: ICS PRN - Steroids: solumedrol Heme: - ppx: enox - Hgb/plt stable - no evidence of hemodynamically significant bleeding GI Prophylaxis: Pantoprazole IV DVT Prophylaxis: SCDs Disposition: Remain in ICU Status Critical Care Time: 55 Total critical care time caring for this patient with life threatening, unstable organ failure, including direct patient contact, management of life support systems, review of data including imaging and labs, discussions with other team members and physicians, excluding procedures. Associated attestation - Walter Coats DO - 01/31/2023 4:25 PM EST I have personally performed a [id number] diagnostic evaluation on this patient on date of pjazdkw37/20/23. History, labs, imaging studies, and electronic medical record have been reviewed by me. This note documented by the [x]warehouse driver []TAM reflects my history, exam, and medical decision making. I have reviewed and agree with the care plan. Changes were made in the orders as necessary. ROS documentation was reviewed and negative unless otherwise stated in HPI. Additional pertinent interval history, ROS, and physical exam findings: Constitutional: General Appearance [x]WDWN []Obese []Cachectic []Thin []Ill Eyes: Inspection of Pupils/Irises Pupils round and react: [x]Yes []No Sclera: []Icteric [x]Non-Icteric Inspection of Conjunctiva/Lids Conjunctiva: []Injected [x]Non-Injected Lids: [x]Intact []Lesion Present ENT/Mouth: External Inspection of ears/nose [x] Normal [] Scar/Lesion/Mass Inspection of teeth/lips/gums Dentition: [x][place] Teeth []Dentures Lips/Gums: []Intact []Lesion Present Mucosa: [x][place] []Moist []Dry Neck: External Appearance Overall Appearance: []Normal [x]Lesion/Mass/Crepitus Present Trachea midline: []Yes []No Thyroid []Normal []Enlarged []Tender []Mass []Absent Respiratory: Respiratory effort []Labored []Non-Labored [x] Mechanically-Ventilated Auscultation []Clear []Crackles []Wheezes []Rhonchi Cardiovascular: Auscultation Rate: [x]Regular []Irregular []Tachycardia []Bradycardia Rhythm: [x]Regular []Irregular Murmur: []Present [x]Absent Extremities Peripheral Edema: []Present []Absent Varicosities: []Present [x]Absent Gastrointestinal: Abdomen Palpation: []Soft []Firm []Tender []Non-Tender [x]Distended []Non-distended Mass: []Present [x]Absent Bowel Sounds: [x]Present []Absent Hernia: []Present [x]Absent Liver/Spleen: []Hepatosplenomegaly []Organomegaly Absent Musculoskeletal: Inspection of Digits and Nails Cyanosis: []Present [x]Absent Clubbing: []Present [x]Absent Ischemia: []Present [x]Absent Infection: []Present [x]Absent Extremities SCOTT Equally: Except ([]RUE []RLE []LUE []LLE) Strength/Tone: Intact and Normal ([]RUE []RLE []LUE []LLE) Skin: Inspection []Normal []Rash []Lesion []Ulcer Palpation [x]Warm []Cool [x]Dry []Clammy []Nodules []Induration []Skin-tightening Cap-Refill: [x] <3 sec [] >3 seconds (delayed) Neurologic: GCS EYE: 1 - No eye opening GCS MOTOR: 4 - Withdraws from pain GCS VERBAL: 1 - No response Total GCS: 6 [] Sensation grossly intact Psych: Mental Status Alert: []Yes [x] No Oriented: [x]x0 []X1 []X2 []x3 Mood/Affect []Normal []Flat []Agitated []Depressed []Anxious []Calm [x]Sedated []NAD As per Dr. Ashraf's A/P.No acute events. CXR improved,no PTX. Less subcutaneous emphysema. Will addprecedex,wean propofol,repeat ABG this afternoon after vent change. Check weaning parameters,ube occlusion test. Ideally woud like to extubate within next 1 to 2 days. Total critical care time for this patient with life-threatening unstable organ failure, including direct patient contact, management of life support systems, review of data including imaging and labs, and discussions with other team members and physicians at least 40 minutes so far today, excludingprocedures. * Peg Ashraf MD - 01/30/2023 4:16 PM EST Family Communication Number Called: [phone] Name of Designated Family Producer Director: Stalin Relationship to patient: Son Family Producer Director Updated on the Following: Patient is stable in the ICU. CT surgery decided that he will not require any procedures right now, but that we will keep a close eye on him in case that changes. He will continue to require admission to the ICU to monitor his respiratory status whileon the ventilator. * Celeste Panda MD - 01/30/2023 12:[address] SURGERY Progress Note PATIENT NAME: Luis Steele TODAY'S DATE: 01/30/2023 SUBJECTIVE: Intubated/sedated. Opens eyes to commands. NAD. Subcutaneous emphysema improved overnight per RN. OBJECTIVE: VITALS: BP 87/57 Pulse 80 Temp 37.1 C (98.7 F) (Temporal) Resp 18 Ht 5' 10 (1.778 m) Wt 179 lb 3.7 oz (81.3 kg) SpO2 95% BMI 25.72 kg/m INTAKE/OUTPUT: I/O last 3 completed shifts: In: 1315.6 (16.2 mL/kg) [I.V.:1315.6 (16.2 mL/kg)] Out: 3240 (39.9 mL/kg) [Urine:3240 (1.1 mL/kg/hr)] Weight: 81.3 kg I/O this shift: In: 180 [NG/GT:180] Out: 165 [Urine:165] REVIEW OF SYSTEMS: Pertinent positives and negatives as per interval history section. PHYSICAL EXAM: CONSTITUTIONAL: No acute distress. Intubated/sedated, opens eyes to command CARDIOVASCULAR: RRR LUNGS: Mech vent 80%/8, L chest wall/neck emphysema improved, band aid over prior chest tube site replaced with larger occlusive dressing GI: soft, NTND : No CVA tenderness, no suprapubic tenderness MUSCULOSKELETAL: Normal range of motion and no gross deformity in bilateral upper/lower extremities SKIN: Warm, dry, well-perfused Data: CBC: Recent Labs 01/29/23212201/30/2334001/30/232 01/30/23 0810 WBC 8.5 8.0 -- -- HGB 10.9 10.3* 9.6* 10.3 10.3 HCT 32.8* 30.0* -- -- PLT 232 261 -- -- BMP: Recent Labs 01/29/2335601/29/23212201/30/23340 NA 139 137 138 K 5.0 5.2* 5.1 CL 100 98 97* CO2 35* 27 35* BUN 30* 26* 28* CREATININE 0.84 0.86 0.84 GLUCOSE 89 106* 95 Hepatic: Recent Labs 01/28/2335601/29/2335601/29/232122 AST 42 70* 40 ALT 23 35 31 BILITOT 0.3 0.6 1.0 ALKPHOS 40 43 44 ASSESSMENT AND PLAN: 52M who initially p/w AHRF and underwent L open chest tube placement 01/26 for large L PTX likely from spontaneous bleb rupture in setting of severe baseline emphysema. The chest tube was inadvertently dislodged that night, and patient was extubated then emergently reintubated 2/2 significant subcutaneous emphysema. Transferred to [facility] ICU, and subcutaneus emphysema is improving. - Continue to monitor subcutaneous emphysema. No indication for chest tube reinsertion or desir slits at this time given improvement - Review of prior CTs - concern for prior chest tube placement into large bleb - Wean positive pressure and vent as able. Patient oxygenating well. - Ensure prior chest tube site is completely occluded with dressing - Daily CXR - On 5LNC at home - 01/26 MSSA nares (+) - 01/26 legionella/strep urine Ag (-) - 01/27 resp panel (-) - Further care per MICU Celeste Panda MD General Surgery, PGY-3 #[id number] PAGING: From -6p (-s): Page me at [phone] From p-6a (-s): - Surg ICU Patients: Page [phone] - Surg Floor Patients: Page [phone] Associated attestation - Dorys Wong DO - 01/31/2023 5:33 AM EST ATTESTATION The patient was seen and examined. I have reviewed the patients presentation, histories, imaging and serology studies. I agree with the above assessment and plan. My date of service is 01/30/23. Subcutaneous emphysema remains present but has improved. No role for acute intervention. Continue to monitor clinically. Recommend minimizing positive pressure ventilation and working towards extubation. I (Dorys Wong) personally supervised the resident in the evaluation and development of a treatment plan for this patient including using nursing/ems notes. I personally discussed the review of systems and interviewed the patient along with performing a physical examination, answering questions and discussing treatment options as applicable. I have also reviewed and agree with the past medical, family and social history unless otherwise noted and personally reviewed the imaging and labs. This note may be a delayed entry. A total of 35 minutes were spent between the face to face encounter, physical exam, reviewing the medical history, coordinating the patient's care, counseling/educating the patient, ordering prescript ions/medications/tests/procedures, interpreting results and documenting clinical information in thepatient's electronic health record on the day of the encounter. The patient was seen and examined independently and relevant data reviewed by myself. A full chart review was performed. 1. Pneumothorax on left 2. Acute respiratory failure with hypoxia (HCC) 3. Orthopnea Electronically signed by Dorys Wong DO, , FACOS * Candice Driver, [employer] SALES REPRESENTATIVE - 01/30/2023 7:33 AM EST Speech-Language Pathology Patient transferred from [place] and is now intubated. Completed speech therapy orders and await re-consult 12 - 24 hours post extubation. Candice Driver MS, CCC/[employer] SALES REPRESENTATIVE * Peg Ashraf MD - 01/30/2023 5:51 AM EST ICU Progress Note Name: Luis Steele : 1970(52 y.o.) Date: 01/30/23 Team: MICU Attending: Dr. Leyda Blanco Subjective: Hospital Summary: 52 yoM former smoker with severe COPD, chronic hypoxemic respiratory failure on 5LPM home O2, history of severe ARDS due to MRSA pneumonia and prolonged respiratory failure requiring tracheostomy in 2015 since decannulated, dysphagia, history of TIA, history of GIB, nephrolithiasis. The patient presented to the [place] ED on 01/26/23 with severe respiratory distress and acute onchronic hypoxemia. Portable chest xray demonstrated left lower lateral pneumothorax and a 28Fr chest tube was placed by the ED staff. Due to severe hypoxemia [facility]: no air leak; CT with small anterior left PTX not being accessed by chest tube. Overnight on chest tube inadvertently dislodged. Stable on vent. No recurrence of PTX 01/28: Extubated to [place] high flow 15 lpm. Continuing to treat COPD exacerbation and weaning oxygen 01/29: Throughout the day, patient had increasing emphysema in the neck and shoulder regions. Progressed rapidly, leading to neck swelling and compromise of the airway so patient was emergently re-intubated, given an A-line and sent to [facility] ICU. Concern for pleuro-subcutaneous fistula air tracking. CT surgery suggested against emergent surgeryat this time and is following. Interval Events: NAEO and VSS. Patient is mechanically ventilated. Scheduled Meds: budesonide, 0.5 mg, Nebulization, Daily buPROPion, 150 mg, Oral, BID [Held by provider] buPROPion XL, 300 mg, Oral, Daily chlorhexidine, 15 mL, Mouth/Throat, BID [Held by provider] enoxaparin, 40 mg, SubCUTAneous, Daily ferrous sulfate, 325 mg, Oral, Daily with breakfast guaiFENesin, 200 mg, Oral, q8h influenza, 0.5 mL, IntraMUSCular, Prior to discharge insulin lispro, 0-12 Units, SubCUTAneous, q6h ipratropium-albuterol, 3 mL, Nebulization, Q4H lidocaine, , Topical, Once methylPREDNISolone sod suc (PF), 40 mg, IntraVENous, q24h midazolam, 4 mg, IntraVENous, Once nicotine, 1 patch, TransDERmal, Daily oxymetazoline, 2 spray, Each Nostril, Once senna-docusate sodium, 1 tablet, Oral, BID sertraline, 100 mg, Oral, Daily Continuous Infusions:fentaNYL, 25-200 mcg/hr, Last Rate: 150 mcg/hr (01/30/23 0540) propofol, 5-50 mcg/kg/min, Last Rate: 40 mcg/kg/min (01/30/23 0340) Objective: Last Vitals: BP MAP 87/57 (01/29/231935) 64 (01/29/231935) Arterial BP MAP 118/67 (01/30/23 0500) 82 mmHg (01/30/23 0500) Temp 37.1 C (98.7 F) (01/30/23 0400) Pulse 87 (01/30/23 0500) Resp 18 (01/30/23 0500) SpO2 99 % (01/30/23 0500) Weight 81.3 kg (179 lb 3.7 oz) (01/29/232121) BMI Body mass index is 25.72 kg/m . I/O: 01/29 07 - 01/30 659 In: 265 [I.V.:265] Out: 1350 [Urine:1350] Ventilator: Ventilation Day(s): 2 Resp Rate (Set): (S) 20 Vt (Set, mL): 300 mL IP Set (cm H2O): 0 cm H2O FiO2 (%): 80 % PEEP/CPAP (cm H2O): 8 cm H20 Inspiratory Time (sec): 1 sec Oxygen Delivery: O2 Flow Rate (L/min): 6 L/min Invasive Lines / Tubes / Drains: Peripheral IV 01/26/23 Distal;Posterior;Right Forearm (Active) Number of days: 3 Peripheral IV 01/29/23 Anterior;Left Forearm (Active) Number of days: 0 NG/OG Tube Orogastric Center mouth (Active) Number of days: 0 Urethral Catheter (Active) Number of days: 0 ETT 7 mm (Active) Number of days: 0 Central Line Indication: NA - patient does not have a central line Emerson Indications: Hourly I&Os (Critical Care ONLY) Restraints: Restraints Non-Violent Or Non-Self Destructive Jan 29, 2023 10:34 Pm Est Restraint order already placed. Order is valid for duration of episode. Wounds: Wound/Incision 01/28/23 Incision Back Lateral;Right (Active) Date First Assessed/Time First Assessed: 01/28/23 0800 Primary Wound Type: Incision Location: Back Wound Location Orientation: Lateral;Right Wound Description (Comments): chest tube site, clean dry and intact Constitutional: General Appearance [x]WDWN []Obese []Cachectic []Thin []Ill Eyes: Inspection of Pupils/Irises Pupils round and react: [x]Yes []No Sclera: []Icteric [x]Non-Icteric Inspection of Conjunctiva/Lids Conjunctiva: []Injected [x]Non-Injected Lids: [x]Intact []Lesion Present ENT/Mouth: External Inspection of ears/nose [x] Normal [] Scar/Lesion/Mass Inspection of teeth/lips/gums Dentition: [x][place] Teeth []Dentures Lips/Gums: []Intact []Lesion Present Mucosa: [x][place] []Moist []Dry Neck: External Appearance Overall Appearance: []Normal [x]Lesion/Mass/Crepitus Present Trachea midline: []Yes []No Thyroid []Normal []Enlarged []Tender []Mass []Absent Respiratory: Respiratory effort []Labored []Non-Labored [x] Mechanically-Ventilated Auscultation []Clear []Crackles []Wheezes []Rhonchi Cardiovascular: Auscultation Rate: [x]Regular []Irregular []Tachycardia []Bradycardia Rhythm: [x]Regular []Irregular Murmur: []Present [x]Absent Extremities Peripheral Edema: []Present []Absent Varicosities: []Present [x]Absent Gastrointestinal: Abdomen Palpation: []Soft []Firm []Tender []Non-Tender [x]Distended []Non-distended Mass: []Present [x]Absent Bowel Sounds: [x]Present []Absent Hernia: []Present [x]Absent Liver/Spleen: []Hepatosplenomegaly []Organomegaly Absent Musculoskeletal: Inspection of Digits and Nails Cyanosis: []Present [x]Absent Clubbing: []Present [x]Absent Ischemia: []Present [x]Absent Infection: []Present [x]Absent Extremities SCOTT Equally: Except ([]RUE []RLE []LUE []LLE) Strength/Tone: Intact and Normal ([]RUE []RLE []LUE []LLE) Skin: Inspection []Normal []Rash []Lesion []Ulcer Palpation [x]Warm []Cool [x]Dry []Clammy []Nodules []Induration []Skin-tightening Cap-Refill: [x] <3 sec [] >3 seconds (delayed) Neurologic: GCS EYE: 1 - No eye opening GCS MOTOR: 4 - Withdraws from pain GCS VERBAL: 1 - No response Total GCS: 6 [] Sensation grossly intact Psych: Mental Status Alert: []Yes [x] No Oriented: [x]x0 []X1 []X2 []x3 Mood/Affect []Normal []Flat []Agitated []Depressed []Anxious []Calm [x]Sedated []NAD [facility] Labs within last 24 hours- BMP: Recent Labs 01/28/2335601/29/2335601/29/23212201/30/23340 NA 136 139 137 138 K 4.5 5.0 5.2* 5.1 CL 103 100 98 97* CO2 28 35* 27 35* BUN 30* 30* 26* 28* CREATININE 0.91 0.84 0.86 0.84 CALCIUM 9.1 9.0 9.1 8.5 MG 2.3 -- -- -- PHOS 2.6 -- -- -- LFTs: Recent Labs 01/28/2335601/29/2335601/29/232122 AST 42 70* 40 ALT 23 35 31 PROT 6.8 7.7 7.8 ALBUMIN 3.9 4.3 4.5 BILITOT 0.3 0.6 1.0 ALKPHOS 40 43 44 Glucose: Recent Labs 01/28/23 03501/28/23 1056 01/28/23 1635 01/28/23200701/29/23 0356 01/29/23 0357 01/29/23 0703 01/29/23 1150 01/29/23 1643 01/29/23212201/29/23214401/30/2334001/30/23342 GLUCOSE 122* -- -- -- -- 89 -- -- -- 106* -- 95 -- POCGLU 111* < > 102* 109* 81 -- 77 82 97 -- 95 -- 92 < > = values in this interval not displayed. Procal: Recent Labs 01/28/232011 PROCAL 0.25* CBC: Recent Labs 01/29/23212201/30/2334001/30/23341 WBC 8.5 8.0 -- HGB 10.9 10.3* 9.6* 10.3 HCT 32.8* 30.0* -- PLT 232 261 -- MCV 83.5 82.5 -- RDW 18.5* 18.3* -- ABGs: Recent Labs 01/28/2340901/29/23212201/30/23341 PHART 7.340* 7.308* 7.203* YAH5EVC 52.2* 58.4* 86.2* PO2ART 45.7* 114.7* 282.7* [id number] 28.1* 28.6* 33.2* SO2ART 77.8* -- -- [id number] -- 50% Oxygen Vent Lactic Acid: No results for input(s): LACTATE in the last 72 hours. INR: No results for input(s): INR in the last 72 hours. Cardiac Injury Profile: Recent Labs 01/27/23 0802 01/27/23 1139 TROPONINI <0.012 <0.012 Labs in Last 3 months: Lab Results Component Value Date TSH 0.183 (L) 01/26/2023 VITD25 16 (L) 04/05/2021 INR 1.0 01/26/2023 Microbiology- Urine Cx: No results found for: URINECX Blood Cx: Lab Results Component Value Date BLOODCX No growth at 72 hours 01/26/2023 Sputum Cx: Lab Results Component Value Date RESPCULT Few normal respiratory olayinka. 04/09/2021 Gram Stain: Lab Results Component Value Date LABGRAM 07/06/2021 Many polymorphonuclear cells/lpf. Few epithelial cells/lpf. Many gram negative bacilli. Few gram positive cocci in clusters. Few gram positive bacilli. PNA PCR: Lab Results Component Value Date HUMANMETAPNE Not Detected 01/27/2023 COVID19: No results found for: COVID19 Legionella Ag: No results found for: LEGIONELLAPN Strep Ag: No results for input(s): STREPPNEUMO in the last 72 hours. Imaging- abnormal CT and CXR CXR IMPRESSION: Endotracheal tube with distal tip above the chun. Extensive bilateral subcutaneous emphysema of the chest and neck. CT IMPRESSION: Small left-sided pneumothorax (approximately 15 percent). Moderate emphysema with bilateral lower lobe bronchiectasis. Patchy right upper and lower lobe infiltrates and bibasilar atelectasis. Pneumomediastinum. Bilateral neck and chest subcutaneous emphysema. Assessment and Plan: Principal Problem: Pneumothorax on left Active Problems: Orthopnea Assessment: 52 y.o. male with PMHx of severe COPD, chronic hypoxemic respiratory failure on 5LPM home O2, history of severe ARDS due to MRSA pneumonia and prolonged respiratory failure requiring tracheostomy in 2014 since decannulated, dysphagia, history of TIA, history of GIB, nephrolithiasis who arrived at [facility] from [facility] for pleural subcutaneous fistula 2/2 chest tube following pneumothorax. CT surgery decided against emergent surgery at this time and is following. Plan: Neuro/psych: - Propofol/fentanyl - Paused for neuro eval, follows simple commands, - CT head not indicated Cardio/hemodynamic: - Hemodynamically stable without vasopressors/inotropes - asymptomatic hypertension, no need to treat. Allow elevated BP while in ICU - EKG: sinus rate 97, normal intervals,. nonischemic - Echo/Bedside echo not indicated - Cap refill brisk Pulm/resp: - Respiratory Failure Type III (Periop/Threatened Airway/high sedation need) - Spo2 > 90% on PCV 14/8 100% +8 - gas/XR pending - Maintain 100% FiO2 for now given ptx - CTS consult, no indication for emergent chest tube as thie pneumothorax is relatively small and the chest is already decompressed via pleural fistula - Daily CXR GI: - Diet TF diet once OGT placed - Indication for stress ulcer prophylaxis: Not indicated - Abd imaging not indcated - abd soft, non distended Renal/: - Emerson to be removed, not indicated - Fluids: Bolus fluids PRN - I/O Goal Goal even ID: - Source: none - Abx: +/- ancef x3 pending surgical plans - Cultures NGTD - leukocytosis in the setting of steriods Endo: - Insulin: ICS PRN - Steroids: solumedrol Heme: - ppx: enox - Hgb/plt stable - no evidence of hemodynamically significant bleeding GI Prophylaxis: Pantoprazole IV DVT Prophylaxis: SCDs Disposition: Remain in ICU Status Critical Care Time: 55 Total critical care time caring for this patient with life threatening, unstable organ failure, including direct patient contact, management of life support systems, review of data including imaging and labs, discussions with other team members and physicians, excluding procedures. Associated attestation - Leyda Blanco MD - 01/30/2023 7:10 PM EST I have personally seen the patient and examined along with the resident. I personally obtained the ohara and relevent portions of the history and performed physical exam. I reviewed the chart includingMAR, labs, and radiology and agree with the patient's plan of action as discussed with the resident. This note reflects my plan of care as I have edited the note to reflect my findings and my assessment and plan. ROS documentation was reviewed and negative unless otherwise stated in HPI. Chief Complaint: Pneumomediastinum Additional pertinent interval history, ROS, and physical exam findings: Patient seen and examined. Intubated on sedation however still awakening and following commands. Subcutaneous emphysema still significant but not worsening. Otherwise compliant with mechanical ventilation. Diffuse subcutaneous emphysema noted along bilateral upper extremities, chest, neck, and face. Assessment and Plan: Acute on chronic Respiratory Failure with Hypoxia and Hypercapnia Left sided persistent Pneumothorax status post chest tube placement and removal Diffuse Subcutaneous Emphysema COPD/Emphysema Hx MRSA PNA Prior tracheostomy (2014) Hx TIA - intubated and sedated. Continue mechanical ventilation. Daily SAT/SBT. Daily ABG. - CXR without acute worsening of pneumothorax however presence of large amount of subcutaneous emphysema. CT with evidence of chest tube insertion site opening. - CTS consulted - no surgical interventions at this time. Emphysema appears improving however stillsevere. No indication for slit gils or chest tube insertion - repeat CXR tonight, continue vent weaning. Awake and following commands however still requiring ventilator support. - minimize PEEP and switch to PC to prevent worsening pneumothorax. If unable to tolerate will needto monitor peak and plateau pressures on volume control. - Repeat evening CXR without worsening pneumothorax. - start tube feeds - start PPI Prophylaxis - check daily CXR Code Status: Full Code Disposition: Remain in ICU for ongoing care Total critical care time caring for this patient with life threatening, unstable organ failure, including direct patient contact, management of life support systems, review of data including imaging and labs, discussions with other team members and physicians at least 35 minutes so far today, excluding procedures. Leyda Blanco MD Pulmonary and Critical Care Medicine Attending Pager #[phone] * Gerald Moncada, - 01/29/2023 9:22 PM EST PT arrived from [facility], stable although slightly hypertensive. ETT noted to be at 28 cm, checking cxr,plan to have surgery evaluate for decompression of severe subcu emphysema 2/2 pleural fistula Chief complaint/Treating Diagnosis: Neuro/psych: - Propofol/fentanyl - Paused for neuro eval, follows simple commands, - CT head not indicated Cardio/hemodynamic: - Hemodynamically stable without vasopressors/inotropes - asymptomatic hypertension, no need to treat. Allow elevated BP while in ICU - EKG: sinus rate 97, normal intervals,. nonischemic - Echo/Bedside echo not indicated - Cap refill brisk Pulm/resp: - Respiratory Failure Type III (Periop/Threatened Airway/high sedation need) - Spo2 > 90% on PCV 14/8 100% +8 - gas/XR pending - Maintain 100% FiO2 for now given ptx - CTS consult, no indication for emergent chest tube as thie pneumothorax is relatively small and the chest is already decompressed via pleural fistula GI: - Diet TF diet once OGT placed - Indication for stress ulcer prophylaxis: Not indicated - Abd imaging not indcated - abd soft, non distended Renal/: - Emerson to be removed, not indicated - Fluids: Bolus fluids PRN - I/O Goal Goal even ID: - Source: none - Abx: +/- ancef x3 pending surgical plans - Cultures NGTD - leukocytosis in the setting of steriods Endo: - Insulin: ICS PRN - Steroids: solumedrol Heme: - ppx: enox - Hgb/plt stable - no evidence of hemodynamically significant bleeding Dispo: MICU Barrier to transfer: Invasive mechanical vent * Aminata Servin RN - 01/29/2023 5:30 PM EST Crepitus noted along left neck, pt c/o increased difficulty in swallowing. 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 Pt remains 93% on 6L NC. Awaiting orders. * Tali Leon CCC-[employer] SALES REPRESENTATIVE - 01/29/2023 8:40 AM EST Images from the original note were not included. Speech-Language Pathology SPEECH LANGUAGE PATHOLOGY [facility] Bedside Swallow Evaluation Patient Name: Luis Steele Evaluation Date: 01/29/2023 Date of : 1970 Admission Date: 01/26/2023 2:45 PM Age: 52 y.o. Room/Bed: 222-05/22205 A IMPRESSION: S/s oropharyngeal dysphagia. + overt clinical s/s pulmonary compromise with PO. Risk factors for aspiration include recent extubation, increased shortness of breath, h/o dysphagia, COPD. RECOMMENDATION: Recommend NPO and with few ice chips per RN and meds whole in puree and the following precautions: - Upright positioning for all PO intake - Consistent mouth care - When respiratory rate is stable and pt demonstrates good awareness. Pt would benefit from skilled acute [employer] SALES REPRESENTATIVE services to address oropharyngeal dysphagia. Frequency: 3 days/wk for 2 weeks Barriers: Decreased endurance Prognosis: good D/C Recommendations: to be determined Recommend modified barium swallow study (MBSS) to further assess. Subjective Patient alert and cooperative. Seen upright in bed. Answers all basic questions with hoarse, weak, strained vocal quality. Follows all basic commands. No visitors at bedside. Spoke with RN Aminata Gaspar who cleared pt to be evaluated. Dysphagia History: Prior MBS completed on 07/02/21 with results indicating Mild oropharyngeal dysphagia. Spillage to pharynx with larger bolus of thin liquids. + vocal cord penetration and flash undercoating of the vocal cords with large drinks. Chin tuck was not effective-continue trace aspiration.Generalized weakness. Recommended Regular diet with thin liquids via single small sips. Baseline Diet: Regular solids, thin liquids Current Diet: Dietary Orders (From admission, onward) Start Ordered 01/29/23 0748 Adult diet Regular Diet effective now Question: Diet type Answer: Regular 01/29/23 0764 Tube Feeding: yes, Orogastric; Vital High Protein; Continuous; Yes; 10; Q 4 Hours; 20; 60; 30; Q 4 Hours Tracheostomy: no Recent Chest Xray/CT of Chest: XR chest 1 view 01/28/2023 Impression Impression: Chronic pulmonary interstitial disease with fibrosis with improving basilar atelectasis. No x-ray evidence of pneumothorax. Report Dictated on Electronically Signed By: Doyle Perez MD Electronically Signed Date/Time: 01/28/2023 9:57 PM EST Oxygen: Oxygen Therapy: Supplemental oxygen O2 Delivery Method: High flow nasal cannula O2 Flow Rate (L/min): 6 L/min Past Medical History: Past Medical History: Diagnosis Date Anxiety COPD (chronic obstructive pulmonary disease) (HCC) Diverticulitis Pancreatitis TIA (transient ischemic attack) Pt stated in 90s and in 2014 Past Surgical History: Past Surgical History: Procedure Laterality Date HERNIA REPAIR LUNG LOBECTOMY TONSILLECTOMY (HISTORICAL) UPPER GASTROINTESTINAL ENDOSCOPY 07/10/2021 URETERAL STENT PLACEMENT Right Admission Diagnosis: Patient Active Problem List Diagnosis Date Noted Pneumothorax on left 01/26/2023 Shortness of breath 07/10/2021 Gastroesophageal reflux disease with esophagitis 07/10/2021 Retained food in stomach 07/10/2021 Dysphagia 07/01/2021 Severe malnutrition (CMS/HCC) ([facility]) 07/10/2021 COPD with acute exacerbation (HCC) 04/05/2021 COVID-19 04/04/2021 History of Present Illness: 52 y.o. who presents to the emergency department with acute respiratorydistress, patient has COPD on 5 L nasal cannula at home, we were told by EMS that he is also on thelung transplant list, he comes in tripoding on BiPAP pulse ox 88% tachypneic Patient Complaint: My throat is sore and I am short of breath. Pain: RN managing pain. PPE Worn: gloves Objective Bedside swallow eval completed. Oral Motor Mechanism Facial Movement (CN VII) - WFL Labial Structure/Function (CN VII) - WFL Lingual Structure/Function (CN XII) - Generalized weakness Mandible Structure/Function (CN V) - WFL Sensation - Pt. able to identify touch to all 4 facial quadrants Volitional Swallow - delayed, multiple attempts to complete a full swallow Volitional cough - strong/effective Dentition - Adequate Oral Hygiene: moist, clean Swallowing Examination PO Trials - ice chips (teaspoon) Oral Phase Pt with adequate oral receipt of PO trials. No anterior spillage. Mastication unable to be assesseddue to pt declining pureed solids this date. Oral transit time appears WFL. No oral residue. Pharyngeal Phase Hyolaryngeal excursion clinically appears reduced and delayed per palpation. 2-3 swallows palpated per bolus, likely indicative of impaired pharyngeal clearance. Overt clinical s/s pulmonary compromise with ice chips as evidenced by delayed cough, increased WOB. Additional Observations: Intermittent increased respiratory effort and respiratory rate, fluctuating from 18 to 27. Pt requested breaks to bring respiratory rate back under control prior to continuing trials. [employer] SALES REPRESENTATIVE completed bedside assessment of swallowing function with ice chips via 1/4 tsp. Pt declined pureed solids this date. Pt consumed 4 trials of ice chips, using effortful swallow with consistent increased SOB/WOB post swallow. Pt presented with 3-4 second delay for swallow initiation, multiple attempts to complete the swallow, and reduced hyolaryngeal excursion and elevation upon palpation. Pt continued to report sore throat and shortness of breath. Oral cavity was clean and moist. [employer] SALES REPRESENTATIVE continues to recommend NPO diet with ice chips and meds in puree/applesauce as tolerated. Pt verbalized understanding. Education Education Given: goals explained, swallowing strategies, diet recommendations Given To: patient Response: verbalizes understanding Goals Patient Stated Goal: I want my throat to stop hurting. Encounter Problems Encounter Problems (Active) Swallowing Patient will demonstrate safe swallowing Intervention/techniques Start: 01/28/23 Expected End: 02/11/23 Patient will tolerate recommended food and liquid consistencies without clinical signs and symptomsof aspirations Start: 01/28/23 Expected End: 02/11/23 Patient will participate in instrumental assessment of swallowing as appropriate Start: 01/28/23 Expected End: 02/11/23 Therapy Time [employer] SALES REPRESENTATIVE Individual Minutes Time In: 0738 Time Out: 0759 Minutes: 21 Tali Leon CCC-[employer] SALES REPRESENTATIVE * Joseph Trejo MD - 01/29/2023 7:35 AM EST ICU Progress Note Name: Luis Steele : 1970(52 y.o.) Date: 01/29/23 Team: MICU Subjective: Hospital Summary: 52 yoM former smoker with severe COPD, chronic hypoxemic respiratory failure on 5LPM home O2, history of severe ARDS due to MRSA pneumonia and prolonged respiratory failure requiring tracheostomy in 2014 since decannulated, dysphagia, history of TIA, history of GIB, nephrolithiasis. The patient presented to the [place] ED on 01/26/23 with severe respiratory distress and acute onchronic hypoxemia. Portable chest xray demonstrated left lower lateral pneumothorax and a 28Fr chest tube was placed by the ED staff. Due to severe hypoxemia [facility] 01[facility]: no air leak; CT with small anterior left PTX not being accessed by chest tube. Overnight on chest tube inadvertently dislodged. Stable on vent. No recurrence of PTX 01/28: Extubated to [place]ter high flow 15 lpm. Continuing to treat COPD exacerbation and weaning oxygen Subjective/Interval Events: No acute events overnight. Hemodynamically stable. O2 requirement Scheduled Meds:budesonide, 0.5 mg, Nebulization, Daily buPROPion, 100 mg, Oral, BID [Held by provider] buPROPion XL, 300 mg, Oral, Daily enoxaparin, 40 mg, SubCUTAneous, Daily ferrous sulfate, 325 mg, Oral, Daily with breakfast guaiFENesin, 200 mg, Oral, q8h influenza, 0.5 mL, IntraMUSCular, Prior to discharge insulin lispro, 0-12 Units, SubCUTAneous, q6h ipratropium-albuterol, 3 mL, Nebulization, Q4H methylPREDNISolone sod suc (PF), 40 mg, IntraVENous, q24h nicotine, 1 patch, TransDERmal, Daily pantoprazole (ProtoNix) 40 mg in sodium chloride (PF) 0.9 % 10 mL injection, 40 mg, IntraVENous, q AM polyethylene glycol (PEG) 3350, 17 g, Oral, BID senna-docusate sodium, 1 tablet, Oral, BID sertraline, 100 mg, Oral, Daily Continuous Infusions:dexmedeTOMIDine, 0.1-1.5 mcg/kg/hr, Last Rate: Stopped (01/28/231729) Objective: Last Vitals: BP MAP 123/72 (01/29/23 0502) 84 (01/29/23 0502) Arterial BP MAP Temp 36.4 C (97.6 F) (01/29/23 0102) Pulse 78 (01/29/23 0502) Resp (!) 9 (01/29/23 0502) SpO2 97 % (01/29/23 0502) Weight 82.8 kg (182 lb 8.7 oz) (01/29/23 0543) BMI Body mass index is 25.47 kg/m . I/O: 01/28 0700 - 01/29 0659 In: 1463.6 [I.V.:1050.6] Out: 2865 [Urine:2865] Ventilator: Ventilation Day(s): 2 Resp Rate (Set): 20 Vt (Set, mL): 500 mL IP Set (cm H2O): 0 cm H2O FiO2 (%): 45 % PEEP/CPAP (cm H2O): 8 cm H20 Inspiratory Time (sec): 0.75 sec Oxygen Delivery: O2 Flow Rate (L/min): 6 L/min Invasive Lines / Tubes / Drains: Peripheral IV 01/26/23 Left Antecubital (Active) Number of days: 2 Peripheral IV 01/26/23 Distal;Posterior;Right Forearm (Active) Number of days: 2 Central Line Indication: NA - patient does not have a central line Emerson Indications: Patient no longer meets indications for a Emerson catheter. Will place order to discontinue. Restraints: NA - patient is not restrained. Wounds: Wound/Incision 01/28/23 Incision Back Lateral;Right (Active) Date First Assessed/Time First Assessed: 01/28/23 0800 Primary Wound Type: Incision Location: Back Wound Location Orientation: Lateral;Right Wound Description (Comments): chest tube site, clean dry and intact Constitutional: General Appearance [x]WDWN []Obese []Cachectic []Thin []Ill Eyes: Inspection of Pupils/Irises Pupils round and react: [x]Yes []No Sclera: []Icteric [x]Non-Icteric Inspection of Conjunctiva/Lids Conjunctiva: []Injected [x]Non-Injected Lids: [x]Intact []Lesion Present ENT/Mouth: External Inspection of ears/nose [x] Normal [] Scar/Lesion/Mass Inspection of teeth/lips/gums Dentition: [x][place] Teeth []Dentures -- very poor dentition Lips/Gums: [x]Intact []Lesion Present Mucosa: [x][place] []Moist []Dry Neck: External Appearance Overall Appearance: [x]Normal []Lesion/Mass/Crepitus Present Trachea midline: [x]Yes []No Thyroid [x]Normal []Enlarged []Tender []Mass []Absent Respiratory: Respiratory effort []Labored [x]Non-Labored [] Mechanically-Ventilated Auscultation [x]Clear []Crackles []Wheezes []Rhonchi Poor air movement bilaterally, but no wheezes or rhonchi. POCUS with intact lung sliding in all lung hernandez bilaterally Cardiovascular: Auscultation Rate: [x]Regular []Irregular []Tachycardia []Bradycardia Rhythm: [x]Regular []Irregular Murmur: []Present [x]Absent Extremities Peripheral Edema: []Present [x]Absent Varicosities: []Present [x]Absent Gastrointestinal: Abdomen Palpation: [x]Soft []Firm []Tender [x]Non-Tender []Distended [x]Non-distended Mass: []Present []Absent Bowel Sounds: [x]Present []Absent Hernia: []Present []Absent Liver/Spleen: []Hepatosplenomegaly []Organomegaly Absent Musculoskeletal: Inspection of Digits and Nails Cyanosis: []Present [x]Absent Clubbing: []Present [x]Absent Ischemia: []Present [x]Absent Infection: []Present [x]Absent Extremities SCOTT Equally Strength/Tone: Intact and Normal ([x]RUE [x]RLE [x]LUE [x]LLE) Skin: Inspection [x]Normal []Rash []Lesion []Ulcer Palpation [x]Warm []Cool [x]Dry []Clammy []Nodules []Induration []Skin-tightening Cap-Refill: [x] <3 sec [] >3 seconds (delayed) Neurologic: GCS EYE: 4 - Opens spontaneously GCS MOTOR: 6 - Obeys commands for movement GCS VERBAL: 5 - Oriented to person, place, time Total GCS: 15 [x] Sensation grossly intact Psych: Mental Status Alert: [x]Yes [] No Oriented: []x0 []X1 []X2 [x]x3 Mood/Affect []Normal []Flat []Agitated []Depressed [x]Anxious []Calm []Sedated []NAD Select Labs within last 24 hours- BMP: Recent Labs 01/26/23204501/27/2352201/28/2335601/29/23356 NA 139 136 136 139 K 4.2 4.8 4.5 5.0 CL 104 103 103 100 CO2 27 24 28 35* BUN 14 20 30* 30* CREATININE 0.77 1.01 0.91 0.84 CALCIUM 8.5 8.8 9.1 9.0 MG 1.7 2.1 2.3 -- PHOS 3.2 3.0 2.6 -- LFTs: Recent Labs 01/26/23210101/27/2352201/28/2335601/29/23356 AST -- 45 42 70* ALT -- 54* 23 35 PROT -- 7.2 6.8 7.7 ALBUMIN -- 3.9 3.9 4.3 BILITOT -- 0.3 0.3 0.6 BILIRUBINU Negative -- -- -- ALKPHOS -- 47 40 43 Glucose: Recent Labs 01/26/23 14501/26/23204501/26/236 01/27/2352201/27/23 1012 01/27/23 1510 01/27/23210501/28/2335601/28/23 1056 01/28/23 1635 01/28/23200701/29/23 0356 01/29/23 0357 01/29/23 0703 GLUCOSE 160* 150* -- 146* -- -- -- 122* -- -- -- -- 89 -- POCGLU -- -- < > -- < > 122* 121* 111* 89 102* 109* 81 -- 77 < > = values in this interval not displayed. Procal: Recent Labs 01/26/232045 PROCAL 0.11* CBC: Recent Labs 01/26/23 14501/27/23522 WBC 12.4* 11.8* HGB 13.4 11.2* HCT 44.3 36.0* PLT 413 280 MCV 86.0 82.0 RDW 16.4* 18.9* ABGs: Recent Labs 01/26/23 1713 01/26/23204601/27/23 0408 01/28/23 0410 PHART -- 7.283* 7.286* 7.340* [id number] -- 59.0* 54.3* 52.2* PO2ART -- 84.1 62.8* 45.7* GNA3LSQ -- 27.9* 25.9* 28.1* SO2ART -- 94.5* 88.3* 77.8* [id number] ETT -- -- -- Lactic Acid: Recent Labs 01/26/23 1451 LACTATE 1.5 INR: Recent Labs 01/26/23 2134 INR 1.0 Cardiac Injury Profile: Recent Labs 01/26/23204501/27/23 0523 01/27/23 0802 01/27/23 1139 CKTOTAL 2,412* 2,364* -- -- TROPONINI <0.012 <0.012 <0.012 <0.012 Labs in Last 3 months: Lab Results Component Value Date TSH 0.183 (L) 01/26/2023 VITD25 16 (L) 04/05/2021 INR 1.0 01/26/2023 Microbiology- Urine Cx: No results found for: URINECX Blood Cx: Lab Results Component Value Date BLOODCX No growth at 48 hours 01/26/2023 Sputum Cx: Lab Results Component Value Date RESPCULT Few normal respiratory olayinka. 04/09/2021 Gram Stain: Lab Results Component Value Date LABGRAM 07/06/2021 Many polymorphonuclear cells/lpf. Few epithelial cells/lpf. Many gram negative bacilli. Few gram positive cocci in clusters. Few gram positive bacilli. PNA PCR: Lab Results Component Value Date HUMANMETAPNE Not Detected 01/27/2023 COVID19: No results found for: COVID19 Legionella Ag: No results found for: LEGIONELLAPN Strep Ag: No results for input(s): STREPPNEUMO in the last 72 hours. Imaging- Reviewed personally including images and radiologist reports. Salient findings summarized in hospital summary and below. Assessment and Plan: Principal Problem: Pneumothorax on left Assessment: Left secondary spontaneous pneumothorax -- now resolved AECOPD, severe emphsyema Acute on chronic hypoxemic respiratory failure; intubated 01/26; extubated 01/28 Previous history of prolonged respiratory failure and tracheostomy (2014), since decannulated History of TIA Steroid induced hyperglycemia without history of diabetes (A1c = 5) Chronic normocytic anemia Neuro: Continue home sertraline & bupropion Prn tylenol for headache Card: Normotensive; stable ECG NSR Pulm: Left secondary spontaneous PTX on a background of severe COPD/emphysema Some notes mention history of lobectomy but CT chest is without signs of lobectomy Chest tube out 01/27; no recurrence of pneumothorax; residual subcutaneous emphysema noted both on exam and xrays, likely tracked from previous chest tube, primarily both shoulders and lower neck; increased over last night on exam and compared to previous CXR. No signs of recurrent PTX. Monitor closely. Extubated on 01/28 Copd exacerbation: Budesonide nebs and duonebs; short course of glucocorticoids ID: Procal 0.11; RVP negative; no infiltrates on CT; no respiratory secretions. No other signs of infection GI: Regular diet Renal: Normal creatinine and 'lytes Endo: Steroid induced hyperglycemia now resolved Heme: Reactive leukocytosis; mild normocytic anemia; normal platelets ppx: enoxaparin Global: Full Code Disposition: Transfer to [facility] * Joseph Trejo MD - 01/28/2023 6:16 PM EST ICU Progress Note Name: Luis tSeele : 1970(52 y.o.) Date: 01/28/23 Team: MICU Subjective: Hospital Summary: 52 yoM former smoker with severe COPD, chronic hypoxemic respiratory failure on 5LPM home O2, history of severe ARDS due to MRSA pneumonia and prolonged respiratory failure requiring tracheostomy in 2015 since decannulated, dysphagia, history of TIA, history of GIB, nephrolithiasis. The patient presented to the [place] ED on 01/26/23 with severe respiratory distress and acute onchronic hypoxemia. Portable chest xray demonstrated left lower lateral pneumothorax and a 28Fr chest tube was placed by the ED staff. Due to severe hypoxemia [facility] Subjective/Interval Events: Overnight, left chest tube was inadvertently dislodged. No recurrence of pneumothorax. Hemodynamically stable This morning, he was successfully extubated. Weaning down supplemental O2 throughout the day; Having some anxiety and headache Scheduled Meds:budesonide, 0.5 mg, Nebulization, Daily buPROPion, 100 mg, Oral, BID [Held by provider] buPROPion XL, 300 mg, Oral, Daily enoxaparin, 40 mg, SubCUTAneous, Daily ferrous sulfate, 325 mg, Oral, Daily with breakfast guaiFENesin, 200 mg, Oral, q8h influenza, 0.5 mL, IntraMUSCular, Prior to discharge insulin lispro, 0-12 Units, SubCUTAneous, q6h ipratropium-albuterol, 3 mL, Nebulization, Q4H methylPREDNISolone sod suc (PF), 40 mg, IntraVENous, q24h nicotine, 1 patch, TransDERmal, Daily pantoprazole (ProtoNix) 40 mg in sodium chloride (PF) 0.9 % 10 mL injection, 40 mg, IntraVENous, q AM polyethylene glycol (PEG) 3350, 17 g, Oral, BID senna-docusate sodium, 1 tablet, Oral, BID sertraline, 100 mg, Oral, Daily Continuous Infusions:dexmedeTOMIDine, 0.1-1.5 mcg/kg/hr, Last Rate: Stopped (01/28/231729) Objective: Last Vitals: BP MAP 127/85 (01/28/23 1700) 92 (01/28/23 170) Arterial BP MAP Temp 36.9 C (98.4 F) (01/28/23 1145) Pulse 100 (01/28/23 1700) Resp 17 (01/28/23 170) SpO2 95 % (01/28/23 170) Weight 84.1 kg (185 lb 6.5 oz) (01/26/231717) BMI Body mass index is 25.87 kg/m . I/O: 01/27 07 - 01/28 0659 In: 1561.5 [I.V.:1073.5] Out: 1185 [Urine:1105] Ventilator: Ventilation Day(s): 2 Resp Rate (Set): 20 Vt (Set, mL): 500 mL IP Set (cm H2O): 0 cm H2O FiO2 (%): 45 % PEEP/CPAP (cm H2O): 8 cm H20 Inspiratory Time (sec): 0.75 sec Oxygen Delivery: O2 Flow Rate (L/min): 8 L/min Invasive Lines / Tubes / Drains: Peripheral IV 01/26/23 Left Antecubital (Active) Number of days: 1 Peripheral IV 01/26/23 Distal;Posterior;Right Forearm (Active) Number of days: 1 Chest Tube Left 28 Fr (Active) Number of days: 0 NG/OG Tube Orogastric Center mouth (Active) Number of days: 304 Urethral Catheter (Active) Number of days: 0 ETT 7.5 mm (Active) Number of days: 0 Central Line Indication: NA - patient does not have a central line Emerson Indications: Hourly I&Os (Critical Care ONLY) Restraints: Restraints Non-Violent Or Non-Self Destructive Jan 26, 2023 8:03 Pm Est Restraint order already placed. Order is valid for duration of episode. Wounds: Constitutional: General Appearance [x]WDWN []Obese []Cachectic []Thin []Ill Eyes: Inspection of Pupils/Irises Pupils round and react: [x]Yes []No Sclera: []Icteric [x]Non-Icteric Inspection of Conjunctiva/Lids Conjunctiva: []Injected [x]Non-Injected Lids: [x]Intact []Lesion Present ENT/Mouth: External Inspection of ears/nose [x] Normal [] Scar/Lesion/Mass Inspection of teeth/lips/gums Dentition: [x][place] Teeth []Dentures -- very poor dentition Lips/Gums: [x]Intact []Lesion Present Mucosa: [x][place] [x]Moist []Dry Neck: External Appearance Overall Appearance: [x]Normal []Lesion/Mass/Crepitus Present Trachea midline: [x]Yes []No Thyroid [x]Normal []Enlarged []Tender []Mass []Absent Respiratory: Respiratory effort []Labored [x]Non-Labored [] Mechanically-Ventilated Auscultation [x]Clear []Crackles []Wheezes []Rhonchi Poor air movement bilaterally; no wheezing Left sided chest tube site dressed; c/d/i Cardiovascular: Auscultation Rate: []Regular []Irregular [x]Tachycardia []Bradycardia Rhythm: [x]Regular []Irregular Murmur: []Present [x]Absent Extremities Peripheral Edema: []Present [x]Absent Varicosities: []Present [x]Absent Gastrointestinal: Abdomen Palpation: [x]Soft []Firm []Tender [x]Non-Tender []Distended [x]Non-distended Mass: []Present []Absent Bowel Sounds: [x]Present []Absent Hernia: []Present []Absent Liver/Spleen: []Hepatosplenomegaly [x]Organomegaly Absent Musculoskeletal: Inspection of Digits and Nails Cyanosis: []Present [x]Absent Clubbing: []Present [x]Absent Ischemia: []Present [x]Absent Infection: []Present [x]Absent Extremities SCOTT Equally Strength/Tone: Intact and Normal ([x]RUE [x]RLE [x]LUE [x]LLE) Skin: Inspection [x]Normal []Rash []Lesion []Ulcer Left lateral chest tube incision site c/d/i Palpation [x]Warm []Cool [x]Dry []Clammy []Nodules []Induration []Skin-tightening Cap-Refill: [x] <3 sec [] >3 seconds (delayed) Neurologic: GCS EYE: 4 - Opens spontaneously GCS MOTOR: 6 - Obeys commands for movement GCS VERBAL: 5 - Oriented to person, place, time Total GCS: 15 [x] Sensation grossly intact Psych: Mental Status Alert: [x]Yes [] No Oriented: []x0 []X1 []X2 [x]X3 Mood/Affect []Normal []Flat []Agitated []Depressed [x]Anxious []Calm []Sedated []NAD Select Labs within last 24 hours- BMP: Recent Labs 01/26/236 01/27/23 0523 01/28/23 0357 NA 139 136 136 K 4.2 4.8 4.5 CL 104 103 103 CO2 27 24 28 BUN 14 20 30* CREATININE 0.77 1.01 0.91 CALCIUM 8.5 8.8 9.1 MG 1.7 2.1 2.3 PHOS 3.2 3.0 2.6 LFTs: Recent Labs 01/26/23204501/26/23210101/27/2323 01/28/23 0357 AST 40 -- 45 42 ALT 29 -- 54* 23 PROT 7.7 -- 7.2 6.8 ALBUMIN 4.2 -- 3.9 3.9 BILITOT 0.7 -- 0.3 0.3 BILIRUBINU -- Negative -- -- ALKPHOS 61 -- 47 40 Glucose: Recent Labs 01/26/23 1451 01/26/23204501/26/23220501/27/23 0422 01/27/2352201/27/23 1012 01/27/23 1510 01/27/23 2106 01/28/23 0357 01/28/23 1056 01/28/23 1635 GLUCOSE 160* 150* -- -- 146* -- -- -- 122* -- -- POCGLU -- -- 165* 136* -- 150* 122* 121* 111* 89 102* Procal: Recent Labs 01/26/232045 PROCAL 0.11* CBC: Recent Labs 01/26/23145001/27/23522 WBC 12.4* 11.8* HGB 13.4 11.2* HCT 44.3 36.0* PLT 413 280 MCV 86.0 82.0 RDW 16.4* 18.9* ABGs: Recent Labs 01/26/23 1713 01/26/23204601/27/23 0408 01/28/23 0410 PHART -- 7.283* 7.286* 7.340* TOC0TQO -- 59.0* 54.3* 52.2* PO2ART -- 84.1 62.8* 45.7* GOD6DLA -- 27.9* 25.9* 28.1* SO2ART -- 94.5* 88.3* 77.8* [id number] ETT -- -- -- Lactic Acid: Recent Labs 01/26/23 145 LACTATE 1.5 INR: Recent Labs 01/26/23 2134 INR 1.0 Cardiac Injury Profile: Recent Labs 01/26/23 2046 01/27/23 0523 01/27/23 0802 01/27/23 1139 CKTOTAL 2,412* 2,364* -- -- TROPONINI <0.012 <0.012 <0.012 <0.012 Labs in Last 3 months: Lab Results Component Value Date TSH 0.183 (L) 01/26/2023 VITD25 16 (L) 04/05/2021 INR 1.0 01/26/2023 Microbiology- Urine Cx: No results found for: URINECX Blood Cx: Lab Results Component Value Date BLOODCX No growth at 24 hours 01/26/2023 Sputum Cx: Lab Results Component Value Date RESPCULT Few normal respiratory olayinka. 04/09/2021 Gram Stain: Lab Results Component Value Date LABGRAM 07/06/2021 Many polymorphonuclear cells/lpf. Few epithelial cells/lpf. Many gram negative bacilli. Few gram positive cocci in clusters. Few gram positive bacilli. PNA PCR: Lab Results Component Value Date HUMANMETAPNE Not Detected 01/27/2023 COVID19: No results found for: COVID19 Legionella Ag: No results found for: LEGIONELLAPN Strep Ag: No results for input(s): STREPPNEUMO in the last 72 hours. Imaging- Reviewed personally including images and radiologist reports. Salient findings summarized in hospital summary and below. Assessment and Plan: Assessment: Left secondary spontaneous pneumothorax AECOPD, severe emphsyema Acute on chronic hypoxemic respiratory failure Previous history of prolonged respiratory failure and tracheostomy (2014), since decannulated History of TIA Steroid induced hyperglycemia without history of diabetes (A1c = 5) Chronic normocytic anemia Neuro: Continue home sertraline Prn tylenol for headache Card: EKG: NSR, QTC is 463 Not in shock; hemodynamically stable Pulm: Left secondary spontaneous PTX on a background of severe COPD/emphysema Some notes mention history of lobectomy but CT chest is without signs of lobectomy 28Fr chest tube placed in the ED. CT chest radiology read noted some concern for chest tube being in a bleb, but clinically was not behaving that way. Overnight, became inadvertently dislodged. No recurrence of pneumothorax. Patient extubated uneventfully this morning. Continue Treating COPD exacerbation with scheduled nebs and steroids No significant sputum or secretions; infectious workup negative to date There was a small residual anterior pneumothorax on CT chest, but not visible on chest x-ray. Not significantly affecting patient's oxygenation or hemodynamics at present. ID: Resp viral panel negative. No sputum or significant secretions through ETT. CT chest without any focal infiltrates. GI: Regular diet Renal: Normal renal function, electrolytes and acid/base. Endo: Steroid induced hyperglycemia but within target goal for ICU Insulin: none Steroids: methylpred for copd exacerbation Heme: Reactive leukocytosis; mild normocytic anemia; normal platelets ppx: enoxaparin Global: Full Code Family/next of kin: son updated at bedside Disposition: Remain in ICU Status Critical Care Time: 35 minutes Total critical care time caring for this patient with life threatening, unstable organ failure, including direct patient contact, management of life support systems, review of data including imaging and labs, discussions with other team members and physicians, excluding procedures. * TRACI Benoit - 01/28/2023 3:38 PM EST Images from the original note were not included. Speech-Language Pathology SPEECH LANGUAGE PATHOLOGY [facility] Bedside Swallow Evaluation Patient Name: Luis Steele Evaluation Date: 01/28/2023 Date of : 1970 Admission Date: 01/26/2023 2:45 PM Age: 52 y.o. Room/Bed: 222-05/222-05 A IMPRESSION: S/s oropharyngeal dysphagia. + overt clinical s/s pulmonary compromise with PO. Risk factors for aspiration include recent intubation, increased RR, odynophagia, h/o dysphagia (see below). RECOMMENDATION: Recommend NPO and with few ice chips per RN and meds whole in puree and the following precautions: - Upright positioning for all PO intake - When respiratory rate is stable (pt with good awareness) Additional recommendations: Re-evaluation of swallowing function at bedside. Subjective Patient alert and cooperative. Seen upright in bed. Answers all basic questions with hoarse, weak vocal quality. Follows all basic commands. Visitors at bedside - family. Spoke with ADELIA Rubio who cleared pt to be evaluated. Dysphagia History: Prior MBS completed on 07/02/21 with results indicating Mild oropharyngeal dysphagia. Spillage to pharynx with larger bolus of thin liquids. + vocal cord penetration and flash undercoating of the vocal cords with large drinks. Chin tuck was not effective-continue trace aspiration.Generalized weakness. Recommended Regular diet with thin liquids via single small sips. Baseline Diet: Regular thi Current Diet: Dietary Orders (From admission, onward) Start Ordered 01/27/23 1426 Diet, tube feeding no tray Orogastric; Vital High Protein; Continuous; Yes; 10; Q 4 Hours; 20; 60; 30; Q 4 Hours Diet effective now Question Answer Comment Route: Orogastric Formula: Vital High Protein Delivery Method: Continuous Continuous Advance Tube Feeding? Yes Advancement Volume (mL/hr) 10 Advancement Frequency: Q 4 Hours Continuous Initial Rate (Recommended mL/hr) 20 Continuous Goal Rate (Recommended mL/hr) 60 Flush volume (mL): 30 Flush frequency: Q 4 Hours 01/27/23 1425 Tube Feeding: no Tracheostomy: no Recent Chest Xray/CT of Chest: XR chest 1 view 01/28/2023 Impression 1. COPD. 2. No significant pneumothorax. Report Dictated on Electronically Signed By: Jordin Dalton MD Electronically Signed Date/Time: 01/28/2023 8:19 AM EST Oxygen: Oxygen Therapy: Supplemental oxygen O2 Delivery Method: High flow nasal cannula O2 Flow Rate (L/min): 15 L/min Past Medical History: Past Medical History: Diagnosis Date Anxiety COPD (chronic obstructive pulmonary disease) (HCC) Diverticulitis Pancreatitis TIA (transient ischemic attack) Pt stated in and in 2014 Past Surgical History: Past Surgical History: Procedure Laterality Date HERNIA REPAIR LUNG LOBECTOMY TONSILLECTOMY (HISTORICAL) UPPER GASTROINTESTINAL ENDOSCOPY 07/10/2021 URETERAL STENT PLACEMENT Right Admission Diagnosis: Patient Active Problem List Diagnosis Date Noted Pneumothorax on left 01/26/2023 Shortness of breath 07/10/2021 Gastroesophageal reflux disease with esophagitis 07/10/2021 Retained food in stomach 07/10/2021 Dysphagia 07/01/2021 Severe malnutrition (CMS/HCC) (HCC) 07/10/2021 COPD with acute exacerbation (HCC) 04/05/2021 COVID-19 04/04/2021 History of Present Illness: 52 y.o. who presents to the emergency department with acute respiratorydistress, patient has COPD on 5 L nasal cannula at home, we were told by EMS that he is also on thelung transplant list, he comes in tripoding on BiPAP pulse ox 88% tachypneic Pneumothroax-chest tube Intubated 01/26-01/28 Patient Complaint: My throat is sore. Intermittent tachypneic. Coughing out secretions. Pain: RN managing pain. PPE Worn: face shield, gloves Objective Bedside swallow eval completed. Oral Motor Mechanism Facial Movement (CN VII) - WFL Labial Structure/Function (CN VII) - WFL Lingual Structure/Function (CN XII) - Generalized weakness, thicker, difficulty visualizing pharynx. Easily gag. Laryngeal Exam/Voice - hoarse/raspy, with some periods of normal quality Dentition - Adequate Oral Hygiene: moist Swallowing Examination PO Trials - ice chips (teaspoon) - puree (teaspoon) Oral Phase Pt with adequate oral receipt of PO trials. No anterior spillage. Mastication appeared complete, organized, and timely. Oral transit time appears WFL. No oral residue. Pharyngeal Phase Hyolaryngeal excursion clinically appears reduced and timely per palpation. 2-3 swallows palpated per bolus, likely indicative of impaired pharyngeal clearance with need for reswallows. Overt clinical s/s pulmonary compromise with decreased laryngeal elevation, increased work of breathing with any exertion. Pt taking and keeping moist swab in his mouth. Additional Observations: Intermittent increased work of breathing and respiratory rate. Up to 35. Pt with good awareness and is able to pause. Education Education Given: oral care, limit swab soaking in water, few ice chips per RN, ok medications wholein applesauce. Given To: patient and RN Response: verbalizes understanding Goals Patient Stated Goal: To feel better Encounter Problems Encounter Problems (Active) Swallowing Patient will demonstrate safe swallowing Intervention/techniques Start: 01/28/23 Expected End: 02/11/23 Patient will tolerate recommended food and liquid consistencies without clinical signs and symptomsof aspirations Start: 01/28/23 Expected End: 02/11/23 Patient will participate in instrumental assessment of swallowing as appropriate Start: 01/28/23 Expected End: 02/11/23 Therapy Time [employer] Individual Minutes Time In: 1510 Time Out: 1528 Minutes: 18 TRACI Benoit * Joseph Trejo MD - 01/27/2023 3:16 PM EST ICU Progress Note Name: Luis Steele : 1970(52 y.o.) Date: 01/27/23 Team: MICU Subjective: Hospital Summary: 52 yoM former smoker with severe COPD, chronic hypoxemic respiratory failure on 5LPM home O2, history of severe ARDS due to MRSA pneumonia and prolonged respiratory failure requiring tracheostomy in 2015 since decannulated, dysphagia, history of TIA, history of GIB, nephrolithiasis. The patient presented to the [place] ED on 01/26/23 with severe respiratory distress and acute onchronic hypoxemia. Portable chest xray demonstrated left lower lateral pneumothorax and a 28Fr chest tube was placed by the ED staff. Due to severe hypoxemia [facility] Subjective[facility]Interval Events: Remained stable on the vent overnight Resp viral panel negative. No significant sputum or secretions No air leak from chest tube with either suction or waterseal; chest xray without residual PTX. Getting the appropriate set tidal volumes on the vent. Hemodynamically stable. Scheduled Meds:budesonide, 0.5 mg, Nebulization, Daily buPROPion, 100 mg, Oral, BID [Held by provider] buPROPion XL, 300 mg, Oral, Daily cefTRIAXone, 1,000 mg, IntraVENous, q24h chlorhexidine, 15 mL, Mouth/Throat, BID enoxaparin, 40 mg, SubCUTAneous, Daily ferrous sulfate, 325 mg, Oral, Daily with breakfast guaiFENesin, 200 mg, Oral, q8h influenza, 0.5 mL, IntraMUSCular, Prior to discharge insulin lispro, 0-12 Units, SubCUTAneous, q6h ipratropium-albuterol, 3 mL, Nebulization, Q4H methylPREDNISolone sod suc (PF), 60 mg, IntraVENous, q8h nicotine, 1 patch, TransDERmal, Daily pantoprazole (ProtoNix) 40 mg in sodium chloride (PF) 0.9 % 10 mL injection, 40 mg, IntraVENous, q AM polyethylene glycol (PEG) 3350, 17 g, Oral, BID senna-docusate sodium, 1 tablet, Oral, BID sertraline, 100 mg, Oral, Daily Continuous Infusions:fentaNYL, 25-200 mcg/hr, Last Rate: 125 mcg/hr (01/27/23 1432) lactated Ringer's, 100 mL/hr, Last Rate: 100 mL/hr (01/27/23 1135) propofol, 5-50 mcg/kg/min, Last Rate: 20 mcg/kg/min (01/27/23 1318) Objective: Last Vitals: BP MAP (!) 94/47 (01/27/23 1232) 57 (01/27/23 1232) Arterial BP MAP Temp 37.1 C (98.8 F) (01/27/23 1201) Pulse 97 (01/27/23 1232) Resp 20 (01/27/23 1232) SpO2 94 % (01/27/23 1232) Weight 84.1 kg (185 lb 6.5 oz) (01/26/23 1718) BMI Body mass index is 25.87 kg/m . I/O: 01/26 0700 - 01/27 0659 In: 1745.9 [I.V.:695.9] Out: 370 [Urine:370] Ventilator: Resp Rate (Set): 20 Vt (Set, mL): 500 mL IP Set (cm H2O): 0 cm H2O FiO2 (%): 40 % PEEP/CPAP (cm H2O): 8 cm H20 Inspiratory Time (sec): 0.8 sec Oxygen Delivery: O2 Flow Rate (L/min): 15 L/min Invasive Lines / Tubes / Drains: Peripheral IV 01/26/23 Left Antecubital (Active) Number of days: 1 Peripheral IV 01/26/23 Distal;Posterior;Right Forearm (Active) Number of days: 1 Chest Tube Left 28 Fr (Active) Number of days: 0 NG/OG Tube Orogastric Center mouth (Active) Number of days: 304 Urethral Catheter (Active) Number of days: 0 ETT 7.5 mm (Active) Number of days: 0 Central Line Indication: NA - patient does not have a central line [place] Indications: Hourly I&Os (Critical Care ONLY) Restraints: Restraints Non-Violent Or Non-Self Destructive Jan 26, 2023 8:03 Pm Est Restraint order already placed. Order is valid for duration of episode. Wounds: Constitutional: General Appearance [x]WDWN []Obese []Cachectic []Thin []Ill Eyes: Inspection of Pupils/Irises Pupils round and react: [x]Yes []No Sclera: []Icteric [x]Non-Icteric Inspection of Conjunctiva/Lids Conjunctiva: []Injected [x]Non-Injected Lids: [x]Intact []Lesion Present ENT/Mouth: External Inspection of ears/nose [x] Normal [] Scar/Lesion/Mass Inspection of teeth/lips/gums Dentition: [x][place] Teeth []Dentures Lips/Gums: [x]Intact []Lesion Present Mucosa: [x][place] [x]Moist []Dry ETT in place Neck: External Appearance Overall Appearance: [x]Normal []Lesion/Mass/Crepitus Present Trachea midline: [x]Yes []No Thyroid [x]Normal []Enlarged []Tender []Mass []Absent Respiratory: Respiratory effort []Labored []Non-Labored [x] Mechanically-Ventilated Auscultation [x]Clear []Crackles []Wheezes []Rhonchi Diminished breath sounds left lower anterior lung field Left sided mix-axillary 28Fr chest tube in place, sutured and dressed. Site c/d/I. No active air leak Cardiovascular: Auscultation Rate: [x]Regular []Irregular []Tachycardia []Bradycardia Rhythm: [x]Regular []Irregular Murmur: []Present [x]Absent Extremities Peripheral Edema: []Present [x]Absent Varicosities: []Present [x]Absent Gastrointestinal: Abdomen Palpation: [x]Soft []Firm []Tender [x]Non-Tender []Distended [x]Non-distended Mass: []Present []Absent Bowel Sounds: [x]Present []Absent Hernia: []Present []Absent Liver/Spleen: []Hepatosplenomegaly [x]Organomegaly Absent Musculoskeletal: Inspection of Digits and Nails Cyanosis: []Present [x]Absent Clubbing: []Present [x]Absent Ischemia: []Present [x]Absent Infection: []Present [x]Absent Extremities SCOTT Equally Strength/Tone: Intact and Normal ([x]RUE [x]RLE [x]LUE [x]LLE) Skin: Inspection [x]Normal []Rash []Lesion []Ulcer Left lateral chest tube incision site c/d/i Palpation [x]Warm []Cool [x]Dry []Clammy []Nodules []Induration []Skin-tightening Cap-Refill: [x] <3 sec [] >3 seconds (delayed) Neurologic: GCS EYE: 4 - Opens spontaneously GCS MOTOR: 6 - Obeys commands for movement GCS VERBAL: 5 - Oriented to person, place, time Total GCS: 15 [x] Sensation grossly intact Psych: Mental Status Alert: [x]Yes [] No Oriented: []x0 []X1 []X2 []X3 -- unable to assess due to intubation Mood/Affect []Normal []Flat []Agitated []Depressed []Anxious []Calm [x]Sedated []NAD [facility] within last 24 hours- BMP: Recent Labs 01/26/23 1451 01/26/23204501/27/23 0523 NA 141 139 136 K 3.8 4.2 4.8 CL 99 104 103 CO2 34* 27 24 BUN 13 14 20 CREATININE 0.94 0.77 1.01 CALCIUM 9.2 8.5 8.8 MG 2.0 1.7 2.1 PHOS 3.1 3.2 3.0 LFTs: Recent Labs 01/26/23 1451 01/26/23 20401/26/23 2102 01/27/23 0523 AST 27 40 -- 45 ALT 31 29 -- 54* PROT 8.7* 7.7 -- 7.2 ALBUMIN 4.6 4.2 -- 3.9 BILITOT 0.5 0.7 -- 0.3 BILIRUBINU -- -- Negative -- ALKPHOS 79 61 -- 47 Glucose: Recent Labs 01/26/23 1451 01/26/23 2046 01/26/23 2206 01/27/23 0422 01/27/23 0523 01/27/23 1012 01/27/23 1510 GLUCOSE 160* 150* -- -- 146* -- -- POCGLU -- -- 165* 136* -- 150* 122* Procal: Recent Labs 01/26/232045 PROCAL 0.11* CBC: Recent Labs 01/26/23 1451 01/27/23522 WBC 12.4* 11.8* HGB 13.4 11.2* HCT 44.3 36.0* PLT 413 280 MCV 86.0 82.0 RDW 16.4* 18.9* ABGs: Recent Labs 01/26/23 1713 01/26/23204601/27/23 0408 PHART -- 7.283* 7.286* RNT9TGI -- 59.0* 54.3* PO2ART -- 84.1 62.8* XOI3QNW -- 27.9* 25.9* SO2ART -- 94.5* 88.3* [id number] ETT -- -- Lactic Acid: Recent Labs 01/26/23 1451 LACTATE 1.5 INR: Recent Labs 01/26/23 2134 INR 1.0 Cardiac Injury Profile: Recent Labs 01/26/23204501/27/23 0523 01/27/23 0802 01/27/23 1139 CKTOTAL 2,412* 2,364* -- -- TROPONINI <0.012 <0.012 <0.012 <0.012 Labs in Last 3 months: Lab Results Component Value Date TSH 0.183 (L) 01/26/2023 VITD25 16 (L) 04/05/2021 INR 1.0 01/26/2023 Microbiology- Urine Cx: No results found for: URINECX Blood Cx: Lab Results Component Value Date BLOODCX Blood culture incubation started 01/26/2023 Sputum Cx: Lab Results Component Value Date RESPCULT Few normal respiratory olayinka. 04/09/2021 Gram Stain: Lab Results Component Value Date LABGRAM 07/06/2021 Many polymorphonuclear cells/lpf. Few epithelial cells/lpf. Many gram negative bacilli. Few gram positive cocci in clusters. Few gram positive bacilli. PNA PCR: Lab Results Component Value Date HUMANMETAPNE Not Detected 01/27/2023 COVID19: No results found for: COVID19 Legionella Ag: No results found for: LEGIONELLAPN Strep Ag: No results for input(s): STREPPNEUMO in the last 72 hours. Imaging- Reviewed personally including images and radiologist reports. Salient findings summarized in hospital summary and below. Assessment and Plan: Assessment: Left secondary spontaneous pneumothorax AECOPD, severe emphsyema Acute on chronic hypoxemic respiratory failure Previous history of prolonged respiratory failure and tracheostomy (2014), since decannulated History of TIA Steroid induced hyperglycemia without history of diabetes (A1c = 5) Chronic normocytic anemia Neuro: Sedation with propofol and fentanyl Continue home sertraline Card: EKG: NSR, QTC is 463 Not in shock; hemodynamically stable Pulm: Left secondary spontaneous PTX on a background of severe COPD/emphysema Some notes mention history of lobectomy but CT chest is without signs of lobectomy 28Fr chest tube in place. CT shows persistent small left basal anterior pneumothorax. Chest tube iswithout air leak despite intubation and positive pressure ventilation. Patient is getting the set volumes on AC/VC. Peak pressures 20-22; Plateau pressure 17; driving pressure 9. Patient is easy to ox ygenate on PEEP 8, FiO2 0.4. Noted radiology read suggesting chest tube may be in a bleb but there is no air leak. Some fluid noted within chest tube lumen, but this has been draining. Examining serial xrays from this year and previous CT chest the patient previous did not have significant bullae in the region of the PTX seen on xray from 01/26. The clinical picture is not consistent with the tube being in a bleb. Treat COPD exacerbation with scheduled nebs and steroids No significant sputum or secretions; infectious workup negative to date Keep chest tube in place; move towards extubation of ETT and then perform waterseal and clamping trials Anterior pneumothorax is small and does not need intervention at present discussed with CT surgery in case of difficulty with chest removal/persistent air leak given severeunderlying emphysema. No surgical intervention for now Daily chest xrays ID: Resp viral panel negative. No sputum or significant secretions through ETT. CT chest without any focal infiltrates. GI: Tube feeds while intubated Prior reported history of dysphagia and delayed gastric emptying of uncertain etiology. Keep tube feed rates low. Reassess after extubation. Renal: Normal renal function, electrolytes and acid/base. Endo: Steroid induced hyperglycemia but within target goal for ICU Insulin: none Steroids: methylpred for copd exacerbation Heme: Reactive leukocytosis; mild normocytic anemia; normal platelets ppx: enoxaparin Global: Full Code Family/next of kin: son and sister updated at bedside Disposition: Remain in ICU Status Critical Care Time: 45 minutes Total critical care time caring for this patient with life threatening, unstable organ failure, including direct patient contact, management of life support systems, review of data including imaging and labs, discussions with other team members and physicians, excluding procedures. * Joseph Trejo MD - 01/27/2023 2:44 PM EST ICU Progress Note Name: Luis Steele : 1970(52 y.o.) Date: 01/28/23 Team: MICU Subjective: Hospital Summary: 52 yoM former smoker with severe COPD, chronic hypoxemic respiratory failure on 5LPM home O2, history of severe ARDS due to MRSA pneumonia and prolonged respiratory failure requiring tracheostomy in 2014 since decannulated, dysphagia, history of TIA, history of GIB, nephrolithiasis. The patient presented to the [place] ED on 01/26/23 with severe respiratory distress and acute onchronic hypoxemia. Portable chest xray demonstrated left lower lateral pneumothorax and a 28Fr chest tube was placed by the ED staff. Due to severe hypoxemia the patient was intubated and admitted [facility]. Subjective/Interval Events: Overnight, his left chest tube was inadvertently pulled out. Chest xray stable afterwards and the patient was stable on the vent afterwards; getting set volumes This morning's chest xray was without recurrence of pneumothorax. He did well on SBT and was successfully extubated to [place] high flow Scheduled Meds:budesonide, 0.5 mg, Nebulization, Daily buPROPion, 100 mg, Oral, BID [Held by provider] buPROPion XL, 300 mg, Oral, Daily enoxaparin, 40 mg, SubCUTAneous, Daily ferrous sulfate, 325 mg, Oral, Daily with breakfast guaiFENesin, 200 mg, Oral, q8h influenza, 0.5 mL, IntraMUSCular, Prior to discharge insulin lispro, 0-12 Units, SubCUTAneous, q6h ipratropium-albuterol, 3 mL, Nebulization, Q4H methylPREDNISolone sod suc (PF), 40 mg, IntraVENous, q24h nicotine, 1 patch, TransDERmal, Daily pantoprazole (ProtoNix) 40 mg in sodium chloride (PF) 0.9 % 10 mL injection, 40 mg, IntraVENous, q AM polyethylene glycol (PEG) 3350, 17 g, Oral, BID senna-docusate sodium, 1 tablet, Oral, BID sertraline, 100 mg, Oral, Daily Continuous Infusions:dexmedeTOMIDine, 0.1-1.5 mcg/kg/hr, Last Rate: 0.2 mcg/kg/hr (01/28/23 1045) Objective: Last Vitals: BP MAP 91/51 (01/28/23 1500) 60 (01/28/23 1500) Arterial BP MAP Temp 36.9 C (98.4 F) (01/28/23 1145) Pulse 93 (01/28/23 1500) Resp 12 (01/28/23 1500) SpO2 97 % (01/28/23 1500) Weight 84.1 kg (185 lb 6.5 oz) (01/26/23 1718) BMI Body mass index is 25.87 kg/m . I/O: 01/27 0700 - 01/28 0659 In: 1561.5 [I.V.:1073.5] Out: 1185 [Urine:1105] Ventilator: Ventilation Day(s): 2 Resp Rate (Set): 20 Vt (Set, mL): 500 mL IP Set (cm H2O): 0 cm H2O FiO2 (%): 45 % PEEP/CPAP (cm H2O): 8 cm H20 Inspiratory Time (sec): 0.75 sec Oxygen Delivery: O2 Flow Rate (L/min): 15 L/min Invasive Lines / Tubes / Drains: Peripheral IV 01/26/23 Left Antecubital (Active) Number of days: 1 Peripheral IV 01/26/23 Distal;Posterior;Right Forearm (Active) Number of days: 1 Chest Tube Left 28 Fr (Active) Number of days: 0 NG/OG Tube Orogastric Center mouth (Active) Number of days: 304 Urethral Catheter (Active) Number of days: 0 ETT 7.5 mm (Active) Number of days: 0 Central Line Indication: NA - patient does not have a central line [place] Indications: Hourly I&Os (Critical Care ONLY) Restraints: Restraints Non-Violent Or Non-Self Destructive Jan 26, 2023 8:03 Pm Est Restraint order already placed. Order is valid for duration of episode. Wounds: Constitutional: General Appearance [x]WDWN []Obese []Cachectic []Thin []Ill Eyes: Inspection of Pupils/Irises Pupils round and react: [x]Yes []No Sclera: []Icteric [x]Non-Icteric Inspection of Conjunctiva/Lids Conjunctiva: []Injected [x]Non-Injected Lids: [x]Intact []Lesion Present ENT/Mouth: External Inspection of ears/nose [x] Normal [] Scar/Lesion/Mass Inspection of teeth/lips/gums Dentition: [x][place] Teeth []Dentures -- very poor dentition Lips/Gums: [x]Intact []Lesion Present Mucosa: [x][place] [x]Moist []Dry Nasal cannula in place Neck: External Appearance Overall Appearance: [x]Normal []Lesion/Mass/Crepitus Present Trachea midline: [x]Yes []No Thyroid [x]Normal []Enlarged []Tender []Mass []Absent Respiratory: Respiratory effort []Labored [x]Non-Labored [] Mechanically-Ventilated Auscultation [x]Clear []Crackles []Wheezes []Rhonchi Poor air movement bilaterally. No wheezes Previous left chest tube site dressed, c/d/i Cardiovascular: Auscultation Rate: []Regular []Irregular [x]Tachycardia []Bradycardia Rhythm: [x]Regular []Irregular Murmur: []Present [x]Absent Extremities Peripheral Edema: []Present [x]Absent Varicosities: []Present [x]Absent Gastrointestinal: Abdomen Palpation: [x]Soft []Firm []Tender [x]Non-Tender []Distended [x]Non-distended Mass: []Present []Absent Bowel Sounds: [x]Present []Absent Hernia: []Present []Absent Liver/Spleen: []Hepatosplenomegaly [x]Organomegaly Absent Musculoskeletal: Inspection of Digits and Nails Cyanosis: []Present [x]Absent Clubbing: []Present [x]Absent Ischemia: []Present [x]Absent Infection: []Present [x]Absent Extremities SCOTT Equally Strength/Tone: Intact and Normal ([x]RUE [x]RLE [x]LUE [x]LLE) Skin: Inspection [x]Normal []Rash []Lesion []Ulcer Left lateral chest tube incision site c/d/i Palpation [x]Warm []Cool [x]Dry []Clammy []Nodules []Induration []Skin-tightening Cap-Refill: [x] <3 sec [] >3 seconds (delayed) Neurologic: GCS EYE: 4 - Opens spontaneously GCS MOTOR: 6 - Obeys commands for movement GCS VERBAL: 5 - Oriented to person, place, time Total GCS: 15 [x] Sensation grossly intact Psych: Mental Status Alert: [x]Yes [] No Oriented: []x0 []X1 []X2 [x]X3 Mood/Affect []Normal []Flat [x]Agitated []Depressed []Anxious []Calm []Sedated []NAD [facility] within last 24 hours- BMP: Recent Labs 01/26/23204501/27/2352201/28/23 0357 NA 139 136 136 K 4.2 4.8 4.5 CL 104 103 103 CO2 27 24 28 BUN 14 20 30* CREATININE 0.77 1.01 0.91 CALCIUM 8.5 8.8 9.1 MG 1.7 2.1 2.3 PHOS 3.2 3.0 2.6 LFTs: Recent Labs 01/26/23204501/26/23210101/27/2301/28/23 0357 AST 40 -- 45 42 ALT 29 -- 54* 23 PROT 7.7 -- 7.2 6.8 ALBUMIN 4.2 -- 3.9 3.9 BILITOT 0.7 -- 0.3 0.3 BILIRUBINU -- Negative -- -- ALKPHOS 61 -- 47 40 Glucose: Recent Labs 01/26/23 1451 01/26/23204501/26/23 2206 01/27/23 0422 01/27/23 0523 01/27/23 1012 01/27/23 1510 01/27/23 2106 01/28/23 0357 01/28/23 1056 GLUCOSE 160* 150* -- -- 146* -- -- -- 122* -- POCGLU -- -- 165* 136* -- 150* 122* 121* 111* 89 Procal: Recent Labs 01/26/232045 PROCAL 0.11* CBC: Recent Labs 01/26/23 14501/27/23522 WBC 12.4* 11.8* HGB 13.4 11.2* HCT 44.3 36.0* PLT 413 280 MCV 86.0 82.0 RDW 16.4* 18.9* ABGs: Recent Labs 01/26/23 1713 01/26/23204601/27/23 0408 01/28/23 0410 PHART -- 7.283* 7.286* 7.340* [id number] -- 59.0* 54.3* 52.2* PO2ART -- 84.1 62.8* 45.7* [id number] -- 27.9* 25.9* 28.1* SO2ART -- 94.5* 88.3* 77.8* [id number] ETT -- -- -- Lactic Acid: Recent Labs 01/26/23 1451 LACTATE 1.5 INR: Recent Labs 01/26/234 INR 1.0 Cardiac Injury Profile: Recent Labs 01/26/23204501/27/23 0523 01/27/23 0802 01/27/23 1139 CKTOTAL 2,412* 2,364* -- -- TROPONINI <0.012 <0.012 <0.012 <0.012 Labs in Last 3 months: Lab Results Component Value Date TSH 0.183 (L) 01/26/2023 VITD25 16 (L) 04/05/2021 INR 1.0 01/26/2023 Microbiology- Urine Cx: No results found for: URINECX Blood Cx: Lab Results Component Value Date BLOODCX No growth at 24 hours 01/26/2023 Sputum Cx: Lab Results Component Value Date RESPCULT Few normal respiratory olayinka. 04/09/2021 Gram Stain: Lab Results Component Value Date LABGRAM 07/06/2021 Many polymorphonuclear cells/lpf. Few epithelial cells/lpf. Many gram negative bacilli. Few gram positive cocci in clusters. Few gram positive bacilli. PNA PCR: Lab Results Component Value Date HUMANMETAPNE Not Detected 01/27/2023 COVID19: No results found for: COVID19 Legionella Ag: No results found for: LEGIONELLAPN Strep Ag: No results for input(s): STREPPNEUMO in the last 72 hours. Imaging- Reviewed personally including images and radiologist reports. Salient findings summarized in hospital summary and below. Assessment and Plan: Assessment: Left secondary spontaneous pneumothorax AECOPD, severe emphsyema Acute on chronic hypoxemic respiratory failure Previous history of prolonged respiratory failure and tracheostomy (2014), since decannulated History of TIA Steroid induced hyperglycemia without history of diabetes (A1c = 5) Chronic normocytic anemia Neuro: PRN tyelnol fo headache Continue home sertraline Card: EKG: NSR, QTC is 463 Not in shock; hemodynamically stable Pulm: Left secondary spontaneous PTX on a background of severe COPD/emphysema Some notes mention history of lobectomy but CT chest is without signs of lobectomy 28Fr chest tube placed in the ED on 01/26. Noted radiology read suggesting chest tube may be in a bleb but clinically not behaving that way. Overnight, chest tube inadvertently removed, but stable afterwards with no recurrence on PTX Extubated on the morning of 01/28 and doing well; weaning salter nasal cannula; baseline home requirement is 5lpm Treat COPD exacerbation with scheduled nebs and steroids No significant sputum or secretions; infectious workup negative to date ID: Resp viral panel negative. No sputum or significant secretions through ETT. CT chest without any focal infiltrates. GI: Regular diet Renal: Normal renal function, electrolytes and acid/base. Endo: Steroid induced hyperglycemia but within target goal for ICU Insulin: none Steroids: methylpred for copd exacerbation Heme: Reactive leukocytosis; mild normocytic anemia; normal platelets ppx: enoxaparin Global: Full Code Family/next of kin: son updated at bedside Disposition: Remain in ICU Status Critical Care Time: 35 minutes Total critical care time caring for this patient with life threatening, unstable organ failure, including direct patient contact, management of life support systems, review of data including imaging and labs, discussions with other team members and physicians, excluding procedures. documented in this [facility]11-28-2023 Consult note* Lauren Maguire DO - 02/08/2023 9:38 AM ESTAssociated Order(s): Inpatient consult to Pulmonology PULMONOLOGY CONSULT NOTE 02/08/2023 9:39 AM Reason for consult: COPD Stage 4 Inpatient consult to Pulmonology Consult performed by: Lauren Maguire DO Consult ordered by: Jordin Larsen APRN - [place] Subjective: Admit Date: 01/26/2023 PCP: Antwan Buchanan HPI: Luis Steele is a 52 y.o M with PMHx significant for severe COPD (last PFTs 2021 with FEV1 25%), chronic hypoxemic respiratory failure on 5 L home O2, MRSA/ARDS requiring trach, decannulated back [id number], dysphagia, TIA, nephrolithiasis with stent who presented to the ED on 01/26 with respiratory d istress and hypoxia and was found to have Large L pneumothorax s/p chest tube, required intubation.Extubated on 01/28 and was re-intubated again on 01/29 due to worsening subcutaneous emphysema and hypoxia. CTS evaluated the patient. Subcutaneous emphysema resolved on repeat imaging. Successfully extubated on 02/03 now on 5L O2 saturating high 90s. Of note, Patient has COPD Stage 4 and follows pulmonology at [facility]. Last PFTs back in 2021 with FEV1 of 25%. He is a candidate for lung transplant and is on transplant list. Currently, VSS. Patient was seen and examined at the bedside, resting comfortably on bed, on 5L O2 saturating 97%, NAD. States he feels like he is at his baseline now. Endorses baseline SOB with exertion. Denies SOB at rest, chest pain, fevers, chills, nausea, vomiting, abdominal pain. Denies lightheadedness and dizziness. States he wants to go home today. Denies any further concerns. Past Medical History: Past Medical History: Diagnosis Date Anxiety COPD (chronic obstructive pulmonary disease) (HCC) Diverticulitis Pancreatitis TIA (transient ischemic attack) Pt stated in 89 and in 2014 Past Surgical History: Past Surgical History: Procedure Laterality Date HERNIA REPAIR LUNG LOBECTOMY TONSILLECTOMY (HISTORICAL) UPPER GASTROINTESTINAL ENDOSCOPY 07/10/2021 URETERAL STENT PLACEMENT Right Allergies: Allergies Allergen Reactions Tramadol Anaphylaxis and Swelling Tongue swells tongue swelling Codeine Other reaction(s): Other: See Comments, PT UNSURE OF REACTION, Unknown Pt can not remember effects happened when was baby Social History: Social History Substance and Sexual Activity Alcohol Use Yes Social History Substance and Sexual Activity Drug Use Not Currently Social History Tobacco Use Smoking Status Former Packs/day: .5 Types: Cigarettes Smokeless Tobacco Former Quit date: 06/24/2021 Family History: Family History Problem Relation Name Age of Onset Heart disease Mother High Blood Pressure Mother Cancer Mother Cancer Father Review of Systems Constitutional: Negative for chills, fatigue and fever. Respiratory: Positive for shortness of breath. Negative for cough and chest tightness. Cardiovascular: Negative for chest pain. Gastrointestinal: Negative for abdominal distention, abdominal pain, diarrhea, nausea and vomiting. Genitourinary: Negative for dysuria, frequency and urgency. Skin: Negative for rash. Neurological: Negative for dizziness and light-headedness. Psychiatric/Behavioral: Negative for agitation. Medications: Scheduled Meds:budesonide, 0.5 mg, Nebulization, Daily buPROPion XL, 300 mg, Oral, Daily enoxaparin, 40 mg, SubCUTAneous, Daily [Held by provider] ferrous sulfate, 325 mg, Oral, Every other day influenza, 0.5 mL, IntraMUSCular, Prior to discharge insulin lispro, 0-12 Units, SubCUTAneous, 4x daily AC & HS ipratropium-albuterol, 3 mL, Nebulization, TID Lidocaine, 1 patch, TransDERmal, Daily nicotine, 1 patch, TransDERmal, Daily pantoprazole, 40 mg, Oral, Nightly Or pantoprazole (ProtoNix) 40 mg in sodium chloride (PF) 0.9 % 10 mL injection, 40 mg, IntraVENous, Nightly [Held by provider] senna-docusate sodium, 1 tablet, Oral, BID sertraline, 100 mg, Oral, Daily Continuous Infusions: Labs: Available labs were personally reviewed. Some notable findings are listed here. CBC: Recent Labs 02/06/2332302/07/2325502/08/23432 WBC 10.0 9.5 9.6 HGB 9.8* 10.4* 10.2* PLT 345 324 378 BMP: Recent Labs 02/06/2332302/07/2325502/08/23432 NA 135 136 137 K 3.3* 3.0* 3.3* CL 97* 96* 100 CO2 29 33* 28 BUN 11 6* 7* CREATININE 0.66 0.64* 0.68 GLUCOSE 95 119* 107* Hepatic: Recent Labs 02/06/23323 AST 33 ALT 24 BILITOT 0.7 ALKPHOS 53 Troponin: Recent Labs 02/07/23 0843 TROPONINI <0.012 BNP: No results for input(s): BNP in the last 72 hours. : No results for input(s): CHOL, HDL in the last 72 hours. No lab exists for component: LDLCALCU INR: No results for input(s): INR in the last 72 hours. Imaging: Available studies were personally reviewed. Salient findings are summarized in HPI and A/P Objective: Vitals: BP 123/83 (BP Location: Right arm, Patient Position: Lying) Pulse 100 Temp 37.3 C (99.1F) (Temporal) Resp 20 Ht 5' 10 (1.778 m) Wt 178 lb 2.1 oz (80.8 kg) SpO2 96% PF 60 L/min BMI 25.56 kg/m Physical Exam Constitutional: General: He is not in acute distress. Appearance: Normal appearance. He is not ill-appearing. HENT: Mouth/Throat: Mouth: Mucous membranes are moist. Cardiovascular: Rate and Rhythm: Normal rate and regular rhythm. Pulses: Normal pulses. Heart sounds: Normal heart sounds. No murmur heard. No gallop. Pulmonary: Effort: Pulmonary effort is normal. No respiratory distress. Breath sounds: Normal breath sounds. No wheezing or rales. Comments: Breath sounds diminished on bilateral lung hernandez Abdominal: General: Abdomen is flat. Bowel sounds are normal. There is no distension. Palpations: Abdomen is soft. Tenderness: There is no abdominal tenderness. There is no guarding. Musculoskeletal: Right lower leg: No edema. Left lower leg: No edema. Skin: General: Skin is warm and dry. Findings: No bruising, lesion or rash. Neurological: General: No focal deficit present. Mental Status: He is alert. Psychiatric: Mood and Affect: Mood normal. Assessment and Plan: Acute on chronic Respiratory failure 2/2 Large L pneumothorax s/p chest tube - resolved COPD stage 4 with centrilobular emphysema Gastroparesis Dysphagia Tobacco use Patient is clinically stable. He is back on his baseline symptom brown. He is on 5L supplemental O2 which is his baseline. He has stage 4 COPD with severe emphysema and follows pulmonology at [facility]. Last PFTs in 2019 demonstrated severe obstructions with FEV1 of 25%. He is on transplant list. He uses advair and PRN albuterol at home. Patient clinically stable to be discharged and follow up with his regular patient admitting clerk at [facility]. On this date, I spent 65 minutes reviewing previous test results and face to face with the patient discussing the diagnosis and importance of compliance with the treatment plans as well as documentation on the day of the visit. Lauren Maguire DO Pulmonary and Critical Care Portions of the information within this encounter were entered using an electronic dictation system. Best attempts were made to edit/proofread the information prior to note completion. Despite the review of information, some errors may remain. If there are questions related to the information contained within the note please contact the signing physician directly. Associated attestation - Leyda Barber MD - 02/08/2023 4:20 PM EST I saw and evaluated the patient, participating in the ohara portions of the service. I reviewed the resident s note. I agree with the resident s findings and plan. Seen as ICU transfer Doing well on baseline 5 lpm Requesting DC Follows with [facility]- planning lung transplant referral soon No evidence of recurrent PTX Severe emphysema. Chronic resp failure. Rec triple therapy at DC, alpha 1 previous neg Time spent preparing to see the patient, obtaining/reviewing separately obtained history, completing an appropriate medical examination of the patient, ordering medications/tests/procedures, documenting clinical information on the EMR, and/or coordinating care is a subsequent visit: 35 minutes (Level II). Leyda Barber MD * Anselmo Jauregui MD - 02/02/2023 1:34 PM ESTAssociated Order(s): IP CONSULT TO GENERAL SURGERY Images from the original note were not included. Department of General Surgery Surgical Service - ACS Resident Consult Note 02/02/2023 CHIEF COMPLAINT: Chief Complaint Patient presents with Shortness of Breath Reason for Consult: sbo vs ileus. HISTORY OF PRESENT ILLNESS: Luis Steele is a 52 y.o. male with significant past medical history of anxiety, COPD, diverticulitis, pancreatitis, TIAs, chronic hypoxemic respiratory failure on 5 L home oxygen, presumed gastroparesis (see care everywhere [facility] summary, received erythromycin while in ICU), severe ARDS due to MRSA pneumonia, respiratory failure requiring tracheostomy in 2014 who presented on 01/26/23 with chief complaint of respiratory distress. Surgery was consulted for evaluation of sbo vs ileus. Patient is intubated but able to answer yes/no questions and has minimal abdominal tenderness, denies nausea. Had BM yesterday, no gas or BM today. Only abdominal surgeries were inguinal hernia repairs years ago. Patient initially presented to [place] on 01/26/2023 with severe respiratory distress, found to have a left pneumothorax for which an 8 English chest tube was placed. Patient was then transferred [facility], chest tube removed and patient was extubated. Pt had increasing subcutaneous emphysema and so he was reintubated and sent here. MICU is currently working toward extubation. However he had a large episode of emesis today around his OG tube and is currently draining tube feeds. On evaluation patient was afebrile, hemodynamically stable, not on pressor support, minimal vent settings.. Labs reviewed significant for: Metabolic panel unremarkable, WBC within normal limits 6.3. imaging demonstrated dilated loops of small and large bowel.. Past Medical History: Diagnosis Date Anxiety COPD (chronic obstructive pulmonary disease) (HCC) Diverticulitis Pancreatitis TIA (transient ischemic attack) Pt stated in and in 2014 Past Surgical History: Procedure Laterality Date HERNIA REPAIR LUNG LOBECTOMY TONSILLECTOMY (HISTORICAL) UPPER GASTROINTESTINAL ENDOSCOPY 07/10/2021 URETERAL STENT PLACEMENT Right Medications Prior to Admission: No current facility-administered medications on file prior to encounter. Current Outpatient Medications on File Prior to Encounter Medication Sig albuterol (2.5 MG/3ML) 0.083% nebulizer solution Take 3 mL (2.5 mg) by nebulization every 6 hours as needed for wheezing. albuterol 108 (90 Base) MCG/ACT inhaler Inhale 2 puffs daily. albuterol 108 (90 Base) MCG/ACT inhaler Inhale 2 puffs every 4 hours as needed for wheezing. buPROPion XL (Wellbutrin XL) 300 MG 24 hr tablet Take 300 mg by mouth every morning. ferrous sulfate 325 (65 Fe) MG tablet Take 325 mg by mouth. fluticasone-salmeterol (Advair) 230-21 MCG/ACT inhaler Inhale 2 puffs in the morning and 2 puffs inthe evening. ipratropium-albuterol (Duo-Neb) 0.5-2.5 mg/3 mL nebulizer solution Inhale 3 mL. pantoprazole (ProtoNix) 40 MG EC tablet TAKE ONE TABLET BY MOUTH EVERY MORNING BEFORE BREAKFAST sertraline (Zoloft) 100 MG tablet Take 100 mg by mouth in the morning. Allergies: Tramadol and Codeine Social History Socioeconomic History Marital status: Tobacco Use Smoking status: Former Packs/day: .5 Types: Cigarettes Smokeless tobacco: Former Quit date: 06/24/2021 Vaping Use Vaping Use: Never used Substance and Sexual Activity Alcohol use: Yes Drug use: Not Currently Social Determinants of Health Intimate Partner Violence: Not At Risk (01/26/2023) Humiliation, Afraid, Rape, and Kick questionnaire Fear of Current or Ex-Partner: No Emotionally Abused: No Physically Abused: No Sexually Abused: No Family History Problem Relation Name Age of Onset Heart disease Mother High Blood Pressure Mother Cancer Mother Cancer Father REVIEW OF SYSTEMS: Review of Systems Constitutional: Negative for chills and fever. HENT: Negative for ear discharge and facial swelling. Eyes: Negative for discharge and visual disturbance. Respiratory: Negative for chest tightness and shortness of breath. Cardiovascular: Negative for chest pain and leg swelling. Gastrointestinal: Positive for abdominal distention and vomiting. Negative for abdominal pain. Genitourinary: Negative for difficulty urinating and flank pain. Musculoskeletal: Negative for gait problem and joint swelling. Skin: Negative for color change and wound. Neurological: Negative for seizures and syncope. Psychiatric/Behavioral: Negative for agitation and behavioral problems. PHYSICAL EXAM: Vitals: 02/02/23 1300 BP: Pulse: 84 Resp: 20 Temp: SpO2: 91% I/O last 3 completed shifts: In: 3961 (45.9 mL/kg) [I.V.:1572 (18.2 mL/kg); NG/GT:2389] Out: 2310 (26.8 mL/kg) [Urine:2310 (0.7 mL/kg/hr)] Weight: 86.3 kg CONSTITUTIONAL: awake, alert, intubated NECK: Supple, symmetrical, trachea midline LUNGS: mech ventilated, synchronous with vent CARDIOVASCULAR: HR and BP stable ABDOMEN: Soft, moderately distended, minimally tender CHEST: no masses palpated, non-tender GENITAL/URINARY: Not examined MUSCULOSKELETAL: There is no redness, warmth, or swelling of the joints. NEUROLOGIC: Awake, alert, oriented to name, place and time. SKIN: normal skin color, texture, no redness, warmth, or swelling DATA: CBC: Lab Results Component Value Date WBC 6.3 02/02/2023 RBC 3.81 (L) 02/02/2023 HGB 10.8 02/02/2023 HGB 10.0 (L) 02/02/2023 HCT 31.4 (L) 02/02/2023 MCV 82.4 02/02/2023 MCH 26.3 02/02/2023 MCHC 31.9 (L) 02/02/2023 RDW 17.3 (H) 02/02/2023 PLT 247 02/02/2023 MPV 7.8 02/02/2023 BMP: Lab Results Component Value Date NA 133 (L) 02/02/2023 K 3.9 02/02/2023 CL 97 (L) 02/02/2023 CO2 29 02/02/2023 BUN 32 (H) 02/02/2023 CREATININE 0.75 02/02/2023 CALCIUM 8.6 02/02/2023 GLUCOSE 171 (H) 02/02/2023 Hepatic Function Panel: No results found for: ALKPHOS, ALT, AST, PROT, BILITOT, BILIDIR PT/INR: No results found for: PROTIME, INR Troponin: No results found for: TROPONINI LIPASE: No results found for: LIPASE IMAGING: XR abdomen 1 view Narrative: [facility] 1970 [id number] Exam Date/Time: 02/02/2023 11:41 Procedure: XR ABDOMEN 1 VIEW Ordering Provider: COATS DAVID Reason For Exam: Vomiting EXAMINATION: XR abdomen AP. EXAM DATE & TIME: 02/02/2023 11:41 AM EST INDICATION: Vomiting ADDITIONAL INFORMATION: 52-year-old male with vomiting presents for evaluation COMPARISON: Abdominal radiographs dated 01/30/2023 TECHNIQUE: Frontal views of the abdomen were obtained. FINDINGS: An NG/OG tube is present with its distal tip projecting over the expected location of the stomach. There is new mild, nonspecific dilation of loops of large and small bowel is noted. No evidence of pneumobilia or portal venous gas. No pathological intra-abdominal calcification is seen. No acute osseous abnormality is demonstrated. There is bibasilar scarring/atelectasis. Impression: New mild, nonspecific dilation of loops of large and small bowel, possibly related to developing ileus versus small bowel obstruction. Unchanged positioning of the NG/OG catheter. Report Dictated on Electronically Signed By: William Bolaños MD Electronically Signed Date/Time: 02/02/2023 1:03 PM EST ASSESSMENT AND PLAN: This is a 52 y.o. male with chronic respiratory failure, hx of ?gastroparesis and now sbo vs ileus -See care everywhere for note on gastroparesis, appears he received some erythromycin while he was in ICU at [facility]. Continues to have bowel function, so doubt true obstruction at this point, but agree with CT a/p with IV/PO contrast to assess bowel patency. Can wait on CT scan before starting any promotility agents. -Daily KUB -Daily dulcolax suppositories -Continue OG vs NG tube if pt extubated -Surgery to follow Patient discussed with attending, Dr. Boo. Anselmo Jauregui MD General Surgery 02/02/23 1:35 PM Pager # [phone] This note may have been dictated using [employer] Medical Practice Edition 2.6 and/or [employer] Voice Recognition Feature. The document was proofread; however, unrecognized voice recognition tailor apprentice errors may be present. Associated attestation - Tammie Boo MD - 02/03/2023 8:35 AM EST ATTENDING ADDENDUM Patient Active Problem List Diagnosis Orthopnea Dysphagia Gastroesophageal reflux disease with esophagitis COVID-19 Severe malnutrition (CMS/HCC) (HCC) COPD with acute exacerbation (HCC) Retained food in stomach Pneumothorax on left I independently saw the above patient and reviewed the recent events, imaging, labs, vital signs; Iperformed a physical exam and ROS on the same date of service as above. My findings agree with the above note except for any details corrected below. 52M with end stage COPD (on 5L O2 at home) and chronic hypoxemic respiratory failure (history of ARDS, tracheostomy 2014, since decannulated) who was transferred to [facility] from [place] with acute on chronic respiratory failure. Yesterday he developed nausea/emesis of tube feeds, and AXR showed some dilated loops of small bowel. CT abdomen/pelvis with IV/PO contrast obtained, which demonstrated dilated loops of small and largebowel, and stool burden in the colon. On my review, his small bowel distention is fairly unremarkable. There is no evidence of obstruction. On chart review he has a history of gastroparesis requiringerythromycin during ICU stay. I suspect he has ileus in the setting of critical illness. Recommend: - no acute surgical intervention - check EKG to verify QTC < 500, then start Reglan 5mg TID - daily bowel regimen including dulcolax suppositories - surgery will continue to following Level of Medical Decision Making: risk of morbidity from additional diagnostic testing or treatmentdue to ileus in setting of critical illness []High [x]Moderate []Low Complexity: Acute illness with systemic symptoms (MOD) Risk: Prescription drug management (MOD) Personally Reviewed/Independently interpreted patient's: [x]Epic notes [x]Radiology studies [x]Labs []EKG []Ordering tests []Other Discussed/ With: []Patient/Family [x]RN []Consultants []SW/TCC []Other I spent total time of 60 minutes reviewing previous notes, test results, and face to face with Luis Steele discussing the diagnosis and importance of compliance with the treatment plan as well as documenting on the day of the visit. Greater than 51% of the >= 60 minute total care time throughout the day (including chart review,care coordination, and [id number] encounter) was spent discussing/counseling the patient/family regarding the care plan for Luis Steele. I examined the patient independently and reviewed relevantdata myself and may have done so in the context of team rounds. A full chart review was performed. Tammie Boo MD Division of Trauma Department of Surgery [facility] Pager: [phone] * Rosario Linder, KENYETTA - 01/30/2023 12:07 PM ESTAssociated Order(s): IP CONSULT TO DIETITIAN Nutrition Assessment Type and Reason for Visit: Consult (TF recs only) RD c/s for TF recs only. Refer to dietitian note dated 01/27 for most recent full nutrition assessment. Chart screened. S/p intubation/sedation. Propofol rate decreased d/t hypotension. Calories provided decreased from 266 to +131 propofol kcals. Current EN order as follows: Vital HP @ 40 ml/hr and 200 ml FWF Q6H (960 EN+ 131 propofol = 1091 total kcals, 84 g pro, 802 EN + 800 FWF = 1602 ml total fluid; @ 14 kcals, 1.1 g pro, 21 ml fluid per IBW <78 kg>) Recommend to increase goal rate to Vital HP @ 55 ml/hr and 200 ml FWF Q6H (1320 kcals EN + 131 kcals propofol = 1451 total kcals, 115 g pro, 1103 EN + 800 FWF = 1903 ml total fluid; @ 19 kcals, 1.47 g pro, 24 ml fluid per IBW <78 kg>) >> Fluids per primary HPI: Luis Steele is a 52 y.o. M with a past medical history of severe COPD on home O2 5 L, history of trach (2015), lobectomy (unknown details), GERD, diverticulitis, pancreatitis, MRSA infection who had been admitted to [facility] ICU since 01/26/23 with acute resp failure. CXR showed large left PTX. He was intubated an a large bore chest tube was placed with resolution. On 01/27 there was no air awake. Overnight the chest tube was inadvertently dislodged. On 01/28 the patient was extubated to [facility] high flow 15 LPM. He then developed rapid neck and facial swelling so he was intubated emergentlyon 01/29. Transferred to [facility] for concern for pleural fistula. Currently hemodynamically stable, satu rating at 100% on 100% FiO2, PEEP of 8. Diffuse subcutaneous emphysema noted, unable to open eyes due to this. CT chest with small left-sided pneumothorax approximately 15%, moderate emphysema, pneumomediastinum, extensive bilateral neck and chest subcutaneous emphysema. Estimated Daily Nutrient Needs: Energy Requirements Based On: Kcal/kg Weight Used for Energy Requirements: [place] Weight for Energy Calculation (kg): 78 kg Total Energy Requirements (kcals/day): 5004-9488 (25-30 kcal/kg IBW) Weight Used for Protein Requirements: [place] Weight in Kg Used for Protein Requirements: 78 kg Estimated Total Protein (g/day): 117-156 (1.5-2.0 g protein/kg IBW) Estimated Daily Total Fluid (ml/day): per MD Labs/Meds Reviewed: budesonide, 0.5 mg, Nebulization, Daily buPROPion, 150 mg, Oral, BID [Held by provider] buPROPion XL, 300 mg, Oral, Daily chlorhexidine, 15 mL, Mouth/Throat, BID [Held by provider] enoxaparin, 40 mg, SubCUTAneous, Daily ferrous sulfate, 325 mg, Oral, Daily with breakfast guaiFENesin, 200 mg, Oral, q8h influenza, 0.5 mL, IntraMUSCular, Prior to discharge insulin lispro, 0-12 Units, SubCUTAneous, q6h ipratropium-albuterol, 3 mL, Nebulization, Q4H lidocaine, , Topical, Once methylPREDNISolone sod suc (PF), 40 mg, IntraVENous, q24h midazolam, 4 mg, IntraVENous, Once nicotine, 1 patch, TransDERmal, Daily oxymetazoline, 2 spray, Each Nostril, Once senna-docusate sodium, 1 tablet, Oral, BID sertraline, 100 mg, Oral, Daily fentaNYL, 25-200 mcg/hr, Last Rate: 100 mcg/hr (01/30/23 1145) propofol, 5-50 mcg/kg/min, Last Rate: 10 mcg/kg/min (01/30/23 1130) BMP: Recent Labs 01/28/2335601/29/2335601/29/23212201/30/23340 NA 136 139 137 138 K 4.5 5.0 5.2* 5.1 CL 103 100 98 97* CO2 28 35* 27 35* BUN 30* 30* 26* 28* CREATININE 0.91 0.84 0.86 0.84 GLUCOSE 122* 89 106* 95 CALCIUM 9.1 9.0 9.1 8.5 MG 2.3 -- -- -- PHOS 2.6 -- -- -- HEPATIC: Recent Labs 01/28/2335601/29/2335601/29/232122 AST 42 70* 40 ALT 23 35 31 BILITOT 0.3 0.6 1.0 ALKPHOS 40 43 44 CBC: Recent Labs 01/29/23212201/30/2334001/30/2334101/30/23 0810 WBC 8.5 8.0 -- -- HGB 10.9 10.3* 9.6* 10.3 10.3 HCT 32.8* 30.0* -- -- MCV 83.5 82.5 -- -- PLT 232 261 -- -- Lab Results Component Value Date TRIG 124 01/26/2023 Lab Results Component Value Date TSH 0.183 (L) 01/26/2023 VITD25 16 (L) 04/05/2021 [id number] 235 (L) 07/02/2021 FOLATE 3.8 07/03/2021 Lab Results Component Value Date HGBA1C 5.0 01/27/2023 Recent Labs 01/28/23200701/29/2335501/29/23 0703 01/29/23 1150 01/29/23 1643 01/29/23 2145 01/30/2334201/30/23 0925 POCGLU 109* 81 77 82 97 95 92 83 Current Nutrition Therapies: Diet, tube feeding no tray Orogastric; Vital High Protein; Continuous; No; 10; 40; 200; Q 6 Hours Current Oral Intake Average Meal Intake: NPO Average Supplements Intake: NPO Additional Calorie Sources Additional Calorie Sources: +131 kcals from propofol (decreased rate d/t hypotension) Anthropometric Measures: Height: 177.8 cm (5' 10) Current Body Weight: 84.1 kg (185 lb 6.5 oz) Admission Body Weight: 84.1 kg (185 lb 6.5 oz) Usual Body Weight: 73 kg (161 lb) (157.4# 02/10/22; 161# 09/06/22; 168.9# 10/19/22; 171.7# 11/13/22) % Weight Change (Calculated): 15.2 [place] Body Weight (lbs) (Calculated): 166 lbs [place] Body Weight (Kg) (Calculated): 75 kg % [place] Body Weight (Calculated): 107.8 % BMI (kg/m2) (Calculated): 25.9 BMI Categories: Overweight (BMI 25.0-29.9) BMI (Calculated): 25.72 Weight: 81.3 kg (179 lb 3.7 oz) Weight Method: Bed scale Weight History: Wt Readings from Last 10 Encounters: 01/29/23 81.3 kg (179 lb 3.7 oz) 11/27/22 77.1 kg (170 lb) Rosario Linder MS, RD, LD Contact: or Taplet Chat (dial *[phone] from hospital phone) * Patricia Bedoya MD - 01/29/2023 11:34 PM ESTAssociated Order(s): IP CONSULT TO CARDIOTHORACIC SURGERY [facility]: Cardiothoracic Surgery Consultation Note Date: 01/30/23 PATIENT NAME: Luis Steele : 1970 (52 y.o.) TODAY'S DATE: 01/30/2023 DATE OF ADMISSION: 01/26/2023 2:45 PM Reason for Consult: subcutaneous emphysema Consulting Provider: Dr. Moncada Subjective: CC: Intubated HPI: Luis Steele is a 52 y.o. M with a past medical history of severe COPD on home O2 5 L, history of trach (2014), lobectomy (unknown details), GERD, diverticulitis, pancreatitis, MRSA infection who had been admitted to [facility] ICU since 01/26/23 with acute resp failure. CXR showed large left PTX. He was intubated an a large bore chest tube was placed with resolution. On 01/27 there was no air awake. Overnight the chest tube was inadvertently dislodged. On 01/28 the patient was extubated to [facility] high flow 15 LPM. He then developed rapid neck and facial swelling so he was intubated emergently on 01/29. Transferred to [facility] for concern for pleural fistula. Currently hemodynamically stable, saturatin g at 100% on 100% FiO2, PEEP of 8. Diffuse subcutaneous emphysema noted, unable to open eyes due tothis. CT chest with small left-sided pneumothorax approximately 15%, moderate emphysema, pneumomediastinum, extensive bilateral neck and chest subcutaneous emphysema. Review of Systems Unable to perform ROS: Intubated Allergies: Tramadol and Codeine Past Medical History: has a past medical history of Anxiety, COPD (chronic obstructive pulmonary disease) (HCC), Diverticulitis, Pancreatitis, and TIA (transient ischemic attack). Past Surgical History: has a past surgical history that includes Upper gastrointestinal endoscopy (07/10/2021); Ureteral stent placement (Right); Lung lobectomy; Hernia repair; and Tonsillectomy. Social History: reports that he has quit smoking. His smoking use included cigarettes. He smoked an average of .5 packs per day. He quit smokeless tobacco use about 19 months ago. He reports current alcohol use. He reports that he does not currently use drugs. Family History: family history includes Cancer in his father and mother; Heart disease in his mother; High Blood Pressure in his mother. Medications: Prior to Admission medications Medication Sig Start Date End Date Taking? Authorizing Provider albuterol (2.5 MG/3ML) 0.083% nebulizer solution Take 3 mL (2.5 mg) by nebulization every 6 hours as needed for wheezing. 12/04/22 01/03/23 Kelton Enrique MD albuterol 108 (90 Base) MCG/ACT inhaler Inhale 2 puffs daily. Historical Provider, albuterol 108 (90 Base) MCG/ACT inhaler Inhale 2 puffs every 4 hours as needed for wheezing. 12/04/22 01/03/23 Kelton Enrique MD buPROPion XL (Wellbutrin XL) 300 MG 24 hr tablet Take 300 mg by mouth every morning. Historical Provider, ferrous sulfate 325 (65 Fe) MG tablet Take 325 mg by mouth. 11/14/22 Historical Provider, fluticasone-salmeterol (Advair) 230-21 MCG/ACT inhaler Inhale 2 puffs in the morning and 2 puffs inthe evening. 11/16/22 Historical Provider, ipratropium-albuterol (Duo-Neb) 0.5-2.5 mg/3 mL nebulizer solution Inhale 3 mL. 07/29/21 Historical Provider, pantoprazole (ProtoNix) 40 MG EC tablet TAKE ONE TABLET BY MOUTH EVERY MORNING BEFORE BREAKFAST 07/10/21 07/10/22 Charles Patten sertraline (Zoloft) 100 MG tablet Take 100 mg by mouth in the morning. 04/01/22 04/01/23 Historical Provider, Objective: BP 87/57 Pulse 77 Temp 36.8 C (98.3 F) (Temporal) Resp 13 Ht 1.778 m (5' 10) Wt 81.3 kg (179 lb 3.7 oz) SpO2 100% BMI 25.72 kg/m Intake/Output Summary (Last 24 hours) at 01/30/2023 0050 Last data filed at 01/30/2023 0000 Gross per 24 hour Intake -- Output 1360 ml Net -1360 ml Physical Exam Constitutional: Appearance: Normal appearance. Comments: sedated HENT: Head: Normocephalic and atraumatic. Right Ear: Tympanic membrane normal. Left Ear: Tympanic membrane normal. Nose: Nose normal. Mouth/Throat: Mouth: Mucous membranes are moist. Pharynx: Oropharynx is clear. Eyes: Comments: Unable to open eyes 2/2 subcutaneous emphysema Cardiovascular: Rate and Rhythm: Normal rate and regular rhythm. Pulmonary: Effort: No respiratory distress. Breath sounds: No stridor. Comments: intubated Abdominal: General: There is no distension. Palpations: There is no mass. Musculoskeletal: General: Normal range of motion. Cervical back: Normal range of motion. Skin: Capillary Refill: Capillary refill takes less than 2 seconds. Coloration: Skin is not jaundiced or pale. Comments: Upper chest, neck subcutaneous emphysema Right chest tube insertion site hemostatic Neurological: Cranial Nerves: No cranial nerve deficit. Sensory: No sensory deficit. Comments: Unable to assess Diagnostics: Reviewed in EMR Labs: Reviewed in EMR Lab Results Component Value Date WBC 8.5 01/29/2023 HGB 10.3 (L) 01/29/2023 HGB 10.9 01/29/2023 HCT 32.8 (L) 01/29/2023 MCV 83.5 01/29/2023 PLT 232 01/29/2023 Lab Results Component Value Date NA 137 01/29/2023 K 5.2 (H) 01/29/2023 CL 98 01/29/2023 CO2 27 01/29/2023 BUN 26 (H) 01/29/2023 CREATININE 0.86 01/29/2023 GLUCOSE 106 (H) 01/29/2023 CALCIUM 9.1 01/29/2023 ICD/PPM-present:Yes: [] Type, if known: No: [] Assessment: @[id number]@ Plan: -No emergent indication for dual slicks or subcu wound VAC at this time -We will evaluate chest x-ray in the morning and monitor for worsening emphysema and development ofworsening pneumothorax -Daily CXR -Will follow Discussed with Dr. Marvin Bedoya MD General Surgery, PGY-5 Associated attestation - Dorys Wong DO - 01/31/2023 4:54 AM EST ATTESTATION The patient was seen and examined. I have reviewed the patients presentation, histories, imaging and serology studies. I agree with the above assessment and plan. My date of service is 01/29/23. Mr. Steele arrived intubated and sedated from [facility]. He has a history significant for severe emphysema, home O2 5 L, history of trach, history of lobectomy. He presented on 01/26/2023 in acute respiratory failure was found to have a large left-sided pneumothorax and was intubated. A large bore chest tube was placed. On 01/27 this was inadvertently dislodged. On 01/28 he was extubated successfully. Earlier today he had acute worsening respiratory failure with rapid chest neck and facial swelling and was emergently intubated. Given the clinical history, it was most likely the this was related to subcutaneous shunting from his intrathoracic cavity. A CT scan of the chest and neck was performed which demonstrated extensive subcutaneous and mediastinal air with a small pneumothorax and no evidence of airway injury. The subcu emphysema has stabilized and is not prohibitive to eye-opening at this time. Do not feel there is much utility to edsir slots with wound VAC, continue to monitor for worsening emphysema and pneumothorax. If this occurs we will consider subcutaneous wound VAC and or chest tube replacement. Recommended minimizing positive pressure ventilation and working towards extubation. I (Dorys Wong) personally supervised the resident in the evaluation and development of a treatment plan for this patient including using nursing/ems notes. I personally discussed the review of systems and interviewed the patient along with performing a physical examination, answering questions and discussing treatment options as applicable. I have also reviewed and agree with the past medical, family and social history unless otherwise noted and personally reviewed the imaging and labs. This note may be a delayed entry. A total of 80 minutes were spent between the face to face encounter, physical exam, reviewing the medical history, coordinating the patient's care, counseling/educating the patient, ordering prescript ions/medications/tests/procedures, interpreting results and documenting clinical information in thepatient's electronic health record on the day of the encounter. The patient was seen and examined independently and relevant data reviewed by myself. A full chart review was performed. 1. Pneumothorax on left 2. Acute respiratory failure with hypoxia (HCC) 3. Orthopnea Electronically signed by Dorys Wong, MS SONJA, JACKY * Theresa Upton, RD - 01/27/2023 2:16 PM ESTAssociated Order(s): IP CONSULT TO DIETITIAN; IP CONSULT TO DIETITIAN Nutrition Assessment Type and Reason for Visit: Initial, Consult Nutrition Recommendations/Plan: Discussedw ith Dr Trejo, enteral nutrition initiated at 20 mL/hr. When ready, recommend to advance toward goal: Vital High Protein @60 mL/hr Proposed regimen to provide: 1440 kcal, +266 kcal from propofol,125 g protein, 1203 ML free flud: 22kcal and1.6 g protien/kg IBW(78 kg) RDN to continue to monitor weekly: fluid accumulation, weight, skin integrity, trends in lab values, tolerance of enteral nutrition, improvement in clinical status, discharge planning. Malnutrition Assessment: Malnutrition Status: Insufficient data Context: Acute Illness Findings of the 6 clinical characteristics of malnutrition: Energy Intake: Unable to assess Weight Loss: No significant weight loss Body Fat Loss: Unable to assess Muscle Mass Loss: Unable to assess Fluid Accumulation: Unable to assess Convertible Sofa Bedspring Tester Strength: Not Performed Nutrition Assessment: 52 year old man with PMHx: COPD (5 L O2 baseline), Diverticulitis, pancreatitis, GI bleed, dysphagia, history of TIA, anemia, Kidney stone w/stent, Tobacco use (2 PPD hx), and anxiety. Noted two recent presentations to ED on 11/27 for choking, coughed up piece of egg and toast in ED with resolution of symptoms. Again presented on 12/04 with COPD exacerbation. +DuoNeb and 125 mg Solumedrol. Increased O2 from baseline 4L to 5L O2. Prescribed 5 days course of prednosione. Currently presents to [facility] as a transfer from [facility] with acute respiraotry distress. Imaging on admit showed: large Left-sided pneumothorax. Intubated in ED @1537, OG placed @1603 with return of stomach contents, and Imaging confirmed placement of tubes @1605. Admitted to ICU. This morning remains intubated with left sided-chest tube in place. Unable to assess at time of attempted visit as +patient care occurring. Dr Trejo agreeable to begin EN. Estimated Daily Nutrient Needs: Energy Requirements Based On: Kcal/kg Weight Used for Energy Requirements: [place] Weight for Energy Calculation (kg): 78 kg Total Energy Requirements (kcals/day): 8491-2949 (25-30 kcal/kg IBW) Weight Used for Protein Requirements: [place] Weight in Kg Used for Protein Requirements: 78 kg Estimated Total Protein (g/day): 117-156 (1.5-2.0 g protein/kg IBW) Estimated Daily Total Fluid (ml/day): per MD Nutrition Related Findings: Nasim=15. No skin break down noted, no edema noted. Meds and labs reviewed, remains intubated and seadated on Propofol and fentanyl Wound Type: None Current Nutrition Therapies: Diet, tube feeding no tray Orogastric; Vital High Protein; Continuous; No; 20; 20; 30; Q 4 Hours Current Oral Intake Average Meal Intake: NPO Average Supplements Intake: NPO Additional Calorie Sources Additional Calorie Sources: +266 kcal from propofol Enteral Nutrition Feeding Route: Orogastric EN Formula: Vital High Protein EN Schedule: Continuous EN Feeding Regimen: Vital High Protein @ 20 mL/hr Additives/Modulars: None Water Flushes: 30 Q4H Current EN & Flush Order Provides: Vital High Protein @ 20 mL/hr +266 kcal from propofol providin kcal and 42 g protein, 401 mL free fluid Goal EN & Flush Order Provides: Vital High Protein @60 mL/hr--> 1440 kcal, +266 kcal from propofol 125 g protein, 1203 ML free flud: 22kcal and1.6 g protien/kg IBW(78 kg) Anthropometric Measures: Height: 180.3 cm (5' 10.98) Current Body Weight: 84.1 kg (185 lb 6.5 oz) Admission Body Weight: 84.1 kg (185 lb 6.5 oz) Usual Body Weight: 73 kg (161 lb) (157.4# 02/10/22; 161# 09/06/22; 168.9# 10/19/22; 171.7# 11/13/22) % Weight Change (Calculated): 15.2 [place] Body Weight (lbs) (Calculated): 172 lbs [place] Body Weight (Kg) (Calculated): 78 kg % [place] Body Weight (Calculated): 107.8 % BMI (kg/m2) (Calculated): 25.9 BMI Categories: Overweight (BMI 25.0-29.9) Nutrition Diagnosis: Increased nutrient needs related to impaired respiratory function, increase demand for energy/nutrients as evidenced by nutrition support - enteral nutrition, NPO or clear liquid status due to medical condition Nutrition Interventions: Nutrition Education/Counseling: Education not indicated Coordination of Nutrition Care: Continue to monitor while inpatient Plan of Care discussed with: Dr Trejo Goals: Goals: Tolerate nutrition support at goal rate, by next RD assessment Nutrition Monitoring and Evaluation: Behavioral-Environmental Outcomes: None Identified Food/Nutrient Intake Outcomes: Enteral Nutrition Intake/Tolerance Physical Signs/Symptoms Outcomes: Biochemical Data, Nausea or Vomiting, Skin, Weight, Chewing or Swallowing, Nutrition Focused Physical Findings, Meal Time Behavior, Hemodynamic Status Discharge Planning: Too soon to determine Theresa Upton RDN, LDN, Contact: *[phone] documented in this [facility]11-26-2023 [facility] 02-06-2023 Procedure note* TRACI Benoit - 02/06/2023 10:10 AM EST Images from the original note were not included. SPEECH LANGUAGE PATHOLOGY MODIFIED BARIUM SWALLOW STUDY Patient Name: Luis Steele : 1970 Today's Date: 02/06/2023 Visit Info / [facility] ADMISSION DATE: 01/26/2023 ADMITTING DIAGNOSIS: has Orthopnea; Dysphagia; Gastroesophageal reflux disease with esophagitis; COVID-19; Severe malnutrition (CMS/HCC) (HCC); COPD with acute exacerbation (HCC); Retained food in stomach; and Pneumothorax on left on their problem list. General Information Ordering Physician: Shelby Guerra MD Radiologist: Michael Villalobos Date of Onset: 01/26/23 Date of Prior Study: 07/02/22 Type of Study: Repeat MBS Results of Prior Study: Oral Phase: Oral phase of swallow is fairly grossly intact. Mild oral residuals after nectar thick consistency in which patient is able to clear with a re-swallow. Spillage ofthin liquids to the level the vallecula and piriform with larger bolus. Decreased spillage to valleculae and just over epiglottic with controlled small drink. Pharyngeal Phase: Patient presents with slightly decreased and delayed airway closure resulting in transient penetration observed with cup drink of thin. Subsequent larger drinks resulted in continued vocal cord penetration and flash undercoating of the vocal cords. Prep set and chin tuck was attempted to reduce airway compromise and chintuck resulted in trace anterior tracheal aspiration during the swallow; therefore was not effectivestrategy to reduce vocal cord penetration/aspiration with thin liquids. Prep set continued resultedin intermittent vocal cord penetration. Single small bolus was most effective in reducing airway pen etration. Mild intermittent vallecular and pharyngeal wall residuals after pudding Varibar. Reswallows were helpful to reduce residuals as well as a liquid chaser. Due to residuals patient does demonstrate mild decrease in pharyngeal transit. Current Diet Solid Consistency: Dysphagia Pureed (Dysphagia I) Current Diet Liquid Consistency: Thin Patient complaints: Pt with h/o dysphagia, recent intubation. Referring Diagnosis: Pneumothorax, s/p intubation Consistencies Administered: Reg solid, Dysphagia Pureed (Dysphagia I), [place] cup, Thin straw, [place] Procedure Method: Self feed, Straw, Cup Patient Position: Lateral Patient was referred for a MBSS to assess the efficiency of his swallow function, rule out aspiration and make recommendations regarding safe dietary consistencies, effective compensatory strategies,and safe eating environment. Past Medical History: Diagnosis Date Anxiety COPD (chronic obstructive pulmonary disease) (HCC) Diverticulitis Pancreatitis TIA (transient ischemic attack) Pt stated in 90s and in 2014 Past Surgical History: Procedure Laterality Date HERNIA REPAIR LUNG LOBECTOMY TONSILLECTOMY (HISTORICAL) UPPER GASTROINTESTINAL ENDOSCOPY 07/10/2021 URETERAL STENT PLACEMENT Right Subjective Subjective Subjective: Pt was alert and pleasant. Indicated recall of the [employer] REPRESENTATIVE and completion of MBS in the past. Assessment Oral Preparation / Oral Phase: Oral Phase Oral Phase: Mild decreased bolus formation and mastication, spillage intermittently to pharynx prior to swallow. Pt with significant dislike for barium which I suspect contributes to some of resistance and control deficits. Mild oral residuals, especially with pudding varibar. Re-swallows were spont aneous and assisted to clear. Pharyngeal Phase: Pharyngeal Phase Pharyngeal: +decreased complete epiglottic deflection. Initial swallow with cookie and pudding (larger bolus) improved deflection, reswallows were incomplete with combination of reduced tongue base retraction resulted in vallecular residuals especially after pudding and cookie. Mild after thin/necta r. +back of epiglottic staining and laryngeal vestibule penetration with trace flash undercoating of cords after thin liquids via straw x1. Back of epiglottic staining is intermittent with slight accumulation during reswallows. Throat clear and reswallow is effective to reduce and clear airway. Compensatory Swallowing Strategies Attempted: Swallow 2 times per bite/sip, No straws, Small bites/sips, Other (comments) (Throat clear with re-swallow.) Cervical Esophageal Phase: Upper Esophageal Screen Upper Esophageal Screen: No deficits observed. Esophagus not visualized below the UES. Impression Recommend Easy to chew with single small sips of thin liquids. -NO STRAWS -Single small drinks, single small bites -Double swallow -Throat clear and re-swallow every few bites Mild oral and mild-moderate pharyngeal deficits as a result of bolus loss, mild oral residuals, decreased epiglottic deflection with back of epiglottic staining and trace vocal cord penetration (undercoated with straw drink-flash aspiration). Throat clear was effective to clear vocal cord penetration/back of epiglottic staining. ST to follow for Epiglottic deflection, airway protection, oral clearing/strengthening. Plan & Recommendations Recommendations/Treatment: Recommendations/Treat Requires [employer] REPRESENTATIVE Intervention: Yes D/C Recommendations: Ongoing speech therapy is recommended during this hospitalization Solid consistency: Easy to Chew Liquid consistency: Thin Liquid administration via: Cup (No straws) Medication administration: Meds in puree Supervision: Distant Compensatory Swallowing Strategies : Swallow 2 times per bite/sip, No straws, Small bites/sips Therapeutic Interventions: Patient/Family education, Other (comment), Tongue base strengthening (CTAR, laryngeal elevation/epiglottic deflection) Education Response: Verbalizes understanding, Needs reinforcement Prognosis: Prognosis Prognosis for safe diet advancement: good Barriers/Prognosis Comment: With follow through of recommendations for strategies. Individuals consulted Consulted and agree with results and recommendations: Patient The patient was educated regarding the general results and recommendations of this evaluation. Encounter Problems Encounter Problems (Active) Swallowing Patient will demonstrate safe swallowing Intervention/techniques Start: 01/28/23 Expected End: 02/11/23 Patient will tolerate recommended food and liquid consistencies without clinical signs and symptomsof aspirations Start: 01/28/23 Expected End: 02/11/23 Patient will participate in instrumental assessment of swallowing as appropriate Start: 01/28/23 Expected End: 02/11/23 Therapy Time [employer]ENT[employer]IVE Individual Minutes Time In: 0920 Time Out: 0950 Minutes: 30 TRACI Benoit * Joseph Trejo MD - 01/29/2023 7:46 PM ESTAssociated Order(s): Arterial Line Insertion Post-Procedure Diagnose(s): Acute respiratory failure with hypoxia (HCC) Arterial Line Insertion Date/Time: 01/29/2023 7:46 PM Performed by: Joseph Trejo MD Authorized by: Joseph Trejo MD Consent: Consent was not able to be obtained because the procedure was emergent or the patient was unable togive consent and a surrogate decision maker was not available. Timeout: Completed immediately prior to the start of the procedure which included verification of the correct patient, correct site and agreement on the procedure to be done. Indications: Indications: hemodynamic monitoring Anesthetic: Local anesthetic used: not applicable Preparation: Patient was prepped and draped in usual sterile fashion. Skin prepped: skin prepped with chlorhexidine Procedure Details: Location: right radial Coy's test normal: yes Number of attempts: 1 Post-Procedure: Post-procedure: line sutured, dressing applied and antimicrobial dressing applied Description/Findings: Bright red pulsatile blood return noted Estimated blood loss: < 5 mL Complications: No apparent complications Assistants & Supervision: I personally performed the procedure documented as signed by this procedure note * Joseph Trejo MD - 01/29/2023 6:54 PM ESTAssociated Order(s): Intubation Post-Procedure Diagnose(s): Acute respiratory failure with hypoxia (HCC) Intubation Date/Time: 01/29/2023 6:54 PM Performed by: Joseph Trejo MD Authorized by: Joseph Trejo MD Consent: The indications, risks, benefits, alternatives to the procedure were explained to the patient/surrogate decision maker and their questions answered. Consent was obtained to proceed with the procedure. Timeout: Not able to be completed due to emergent nature of procedure. Anesthetic: Local anesthetic used: not applicable Indications: Indications: airway obstruction, airway protection and respiratory failure Preparation: Assessment: Unstable dentition and large tongue (rapidly progressive subcutaneous emphysema with neck/facial swelling) Mallampati score: Emergent not performed Neck mobility: Reduced Pharmacologic strategy: patient sedated Induction agents: Ketamine Paralytics: None Procedure details: Preoxygenation: Bag valve mask CPR in progress: no Total number of attempts: 1 Successful intubation details: Intubation method: Oral Intubation technique: bronchoscopic Laryngoscope blade: Standard geometry (N/A - performed bronchoscopically) Bougie used: no Cormack-Lehane view: I Tube size (mm): 7.0 Tube type: Cuffed Placement assessment: ETT at lip (cm): 26 Tube secured with: ETT mendez Breath sounds: Equal Placement verification: CXR verification Follow-up chest x-ray: Completed Post-procedure: Estimated Blood Loss: None Specify complication(s): No apparent complications Assistants & Supervision: I personally performed the procedure documented as signed by this procedure note General Comments: Emergent airway. Patient with rapidly accumulating subcutaneous emphysema with neck and facial swelling. Ketamine used for sedation; no paralytic given; patient remained upright due to severe respiratory distress. Size 7.0 ETT loaded on to Slim 3.8 disposable bronchoscopy. Bronchoscopy performed via mouth, vocal cords visualized (no edema or paralysis noted). Once bronchoscope was passed through the vocal cords and the main craina was visualized, the ETT was advanced over the bronchoscope. Secured at 26cm at lower lip. Position confirmed with Chest xray; no pneumothorax noted on CXR, but severe subcutaneous emphysema was present. documented in this [facility]11-18-2023 [facility] 01-29-2023 [facility]11-18-2023 Nurse Note* Aminata Severino RN - 01/29/2023 7:46 PM EST 1810: Dr. Trejo, Charlene, EMPLOYMENT OFFICER, Jason Breen RN, Margot Almaraz RN, Sandra Noriega RN, Stanley Ramirez RN and Natalio Oseguera RN, at bedside for emergent intubation for airway protection d/t rapid neck/facial swelling. 1814: 1mg of versed given 1815: 50mg of Ketamine given 1816: 50 mg ketamine given 1817: 50 mg ketamine given 1817: #7 ETT placed, 26 at the lip, positive color change 1821: 4mg of versed given 1825: 20 mcg propofol given documented in this [facility]SSelect [facility] [id number] NoteCrepitus noted along left neck, pt c/o increased difficulty in swallowing. 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 Pt remains 93% on 6L NC. Awaiting orders.[facility]11-17-2023 Miscellaneous Notes* Telephone Encounter - Fabi Hughes LPN - 01/28/2023 3:10 PM EST Spoke with Eveline gave information provided. She voices understanding. * Telephone Encounter - Shelia Garvey APRN.CNP - 01/28/2023 2:50 PM EST Yes. Shelia Garvey APRN.EMPLOYMENT OFFICER * Telephone Encounter - Marga Blackwood RN - 01/28/2023 2:45 PM EST Eveline- C Coordinator at [facility], reports patient was admitted to [facility] with Dx: spontaneous pneumothorax. Chest tube was removed today, and possible discharge is on 01-31. Asking ifpcp agreeable to follow for [facility] orders. Please phone Eveline with verbal: [phone] [facility] Discharge instructions* Appointments* MACI Malhotra - 01/28/2023 2:12 PM EST Referral was made to [facility] Kareem Mendieta for Waiver Services Waiver Services can help you in your home with activities such as cooking, cleaning, transport, medset up, and more. You will receive a call from a wire rope sales representative from [facility] to complete an assessment. [facility]: documented in this [facility]11-15-2023 [facility] 01-26-2023 Emergency department Note* Francois Murray RN - 01/26/2023 7:34 PM EST Report to [facility] flight crew. Pt's sister given room number at [facility]. Chart toflight crew for [place]. [facility] called to let them know of pt departure Francois Murray RN 01/26/231945 * Francois Murray RN - 01/26/2023 7:21 PM EST ADELIA Bergman RN, Florin Diamond RN, spent 390 combined total minutes providing direct, [id number] critical care to the patient for: Interventions [] Administration of ACLS drugs in cardiac arrest [] Arterial Line Insertion [] Central Line Insertion [x] Chest Tube Insertion [] CPR [] Defibrillation [x] Intubation [] Therapeutic hypothermia [] Pericardiocentesis [x] Ventilator Management [] Other: ( if checked, please document in ED NOTE below) Medications: [] Infusions of Vasoactive medications [] adenosine [x] nitroglycerin [] dopamine [] norepiniphrine [] labetalol [] sodium nitroprusside [] metoprolol [] Multiple IV medications which require constant monitoring [] amiodarone [] Ephedrine sulphate [] digoxin [] adrenaline [] dobutamine [] Hydralazine hydrochloride [] hydrochloride [] Insulin Drip Documentation of the following Teams: [] Surgical Team [] Trauma Team [] Stroke Team [] STEMI Team Documentation of the Following Conditions: [] Abdominal aneurysm (Rupture or dissection) [] Acute Myocardial Infarction [] Acute Renal Failure [] Conscious Sedation [] Central Nervous System Failure [] Cerebral Hemorrhage [] Circulatory Failure [] DKA [] Drug Overdose impairing vital function (respiratory, cardiac) [x] Respiratory Failure [] Sepsis [] Shock Circulatory Failure [] Status Epilepticus - intractable seizures ED NOTE: Assist w/intubation, titrate Propofol, assist with multiple adjustments to chest tube, OG insertion, emerson. Pt transferred to [facility] ICU via [facility]. Lizzeth Evans RN 01/26/231923 Francois Murray RN 01/26/231945 * Lizzeth Evans RN - 01/26/2023 7:06 PM EST Prior to being sedated and intubated the pt gave this RN verbal consent to speak with brother Lang about his condition. Lizzeth Evans RN 01/26/231907 * Francois Murray RN - 01/26/2023 6:[address] Cunha notified that pt is awake and gesturing to sister at bedside. Propofol drip increased to 40 mcg/kg/min Francois Murray RN 01/26/231851 * Francois Murray RN - 01/26/2023 6:40 PM EST [facility] called back and they are sending [facility] life flight helicopter for pt. ETA 25 min Francois Murray RN 01/26/23 1845 * Francois Murray RN - 01/26/2023 5:37 PM EST Report called to [place] FRUIT PICKER MACHINE OPERATOR, Kim Murray RN 01/26/23 2308 * Francois Murray RN - 01/26/2023 5:00 PM EST Chest tube removed and replaced with 28F by Dr. Cunha. Pt remains sedated and tolerated well. Francois Murray RN 01/26/23 1722 * Francois Murray RN - 01/26/2023 4:24 PM EST 1440: meds per verbal order Dr. Cunha solumedrol 125mg IVP and duo neb aerosol x 2. 1443: nitroglycerine paste 1 topical applied verbal order Dr. Cunha 1449: ABG right radial by Gerald Diamond RN. Pressure to site x 5 min 1450: 20g IV right hand by Tammie RASCON 1453: 142/112, 132, 25, 90% on CPAP 1456: 168/108, 130,25, 91% pt very anxious, reassurance given by multiple staff 1457: 3rd duoneb given, verbal order Dr. Cunha 1458: nitoglycerine drip started 40mcg/min verbal order Dr. Cunha 1459: 187/107, 131, 24, 94% 1504: spoke with pt's son, Stalin, by phone with pt permission. Son made aware of pt condition and is on his way to ER now. 1508: 172/122, 135, 27, 90% pt wrote a note to his son. Preparing for intubation. 1509: pt accidentally pulled out right hand IV. Another IV placed right wrist #20g by Tammie RASCON 1511:154/98, 136, 32, 90% 1522: radiology called with results. Dr. Cunha aware. 155/96, 137, 29, 92% on CPAP 1528: 146/94, 137, 26, 91% 1533: pt given Etomidate 20mg IVP for intubation 1534: Succinylcholine 100mg IVP for intubation 1537: intubated by Dr. Cunha, bagged with 100% O2, 24cm @ lips, + easy cap color change + breath sounds 1538: pt restless. started propofol 5mcg/kg/min for sedation per verbal order Dr. Cunha. 1542: 163/111, 123, 14, 100% on ventilator. Setting 100% O2, TV 400 peep 5 1542: increased propofol to 15mcg/kg/min 1543: Propofol 100mg IVP for sedation per verbal order Dr. Cunha 1547: 120/87, 122, 16, 99% decreased NTG drip to 10mcg/kg/min 1550: Left chest tube insertion by Dr. Cunha #24F sutured in place and placed to oasis on suction. 1558: NTG drip turned off due to blood pressure 107/71, 102, 15, 100% 1601: propofol 50mg IVP for sedation verbal order Dr. Cunha 1603: OG placed 62cm @ lips, + return of stomach contents + placement verified by air bolus. Placedto low intermittent suction. 1605: PCXR done for tube placements ( chest tube, ETT, and OG). 1610: 124/75, 103,18, 100% 1612: 16F emerson catheter placed by Lizzeth Evans RN 1615: NTG paste discontinued per verbal order. Propofol drip increased to 25 mcg/kg/min 1630: resting quietly. Awaits admission. Family in waiting area updated 1644: Chest tube needs adjusted. Dr. Cunha and staff at bedside Francois Murray RN 01/26/23 1654 * Ramon Cunha MD - 01/26/2023 2:37 PM ESTAssociated Order(s): Intubation; Chest Tube Insertion EMERGENCY DEPARTMENT ENCOUNTER Pt Name: Luis Steele Birthdate 1970 Date of evaluation: 01/26/2023 ED Provider: Ramon Cunha MD CHIEF COMPLAINT Chief Complaint Patient presents with Shortness of Breath HISTORY OF PRESENT ILLNESS (Location/Symptom, Timing/Onset, Context/Setting, Quality, Duration, Modifying Factors, Severity) Note limiting factors. I wore appropriate PPE for the entirety of this encounter. HPI Luis Steele is a 52 y.o. who presents to the emergency department with acute respiratory distress, patient has COPD on 5 L nasal cannula at home, we were told by EMS that he is also on the lung transplant list, he comes in tripoding on BiPAP pulse ox 88% tachypneic Nursing Notes were reviewed. Limitations to history: None Outside historians: EMS REVIEW OF SYSTEMS Review of Systems Pertinent positives and negatives as per HPI PAST MEDICAL HISTORY Past Medical History: Diagnosis Date Anxiety COPD (chronic obstructive pulmonary disease) (HCC) Diverticulitis Pancreatitis TIA (transient ischemic attack) Pt stated in 90s and in 2014 SURGICAL HISTORY Past Surgical History: Procedure Laterality Date HERNIA REPAIR LUNG LOBECTOMY TONSILLECTOMY (HISTORICAL) UPPER GASTROINTESTINAL ENDOSCOPY 07/10/2021 URETERAL STENT PLACEMENT Right CURRENT MEDICATIONS Previous Medications ALBUTEROL (2.5 MG/3ML) 0.083% NEBULIZER SOLUTION Take 3 mL (2.5 mg) by nebulization every 6 hours as needed for wheezing. ALBUTEROL 108 (90 BASE) MCG/ACT INHALER Inhale 2 puffs daily. ALBUTEROL 108 (90 BASE) MCG/ACT INHALER Inhale 2 puffs every 4 hours as needed for wheezing. BUPROPION XL (WELLBUTRIN XL) 300 MG 24 HR TABLET Take 300 mg by mouth every morning. FERROUS SULFATE 325 (65 FE) MG TABLET Take 325 mg by mouth. FLUTICASONE-SALMETEROL (ADVAIR) 230-21 MCG/ACT INHALER Inhale 2 puffs in the morning and 2 puffs inthe evening. IPRATROPIUM-ALBUTEROL (DUO-NEB) 0.5-2.5 MG/3 ML NEBULIZER SOLUTION Inhale 3 mL. PANTOPRAZOLE (PROTONIX) 40 MG EC TABLET TAKE ONE TABLET BY MOUTH EVERY MORNING BEFORE BREAKFAST SERTRALINE (ZOLOFT) 100 MG TABLET Take 100 mg by mouth in the morning. ALLERGIES Tramadol and Codeine FAMILY HISTORY Family History Problem Relation Name Age of Onset Heart disease Mother High Blood Pressure Mother Cancer Mother Cancer Father SOCIAL HISTORY Social History Socioeconomic History Marital status: Tobacco Use Smoking status: Former Packs/day: .5 Types: Cigarettes Smokeless tobacco: Former Quit date: 06/24/2021 Vaping Use Vaping Use: Never used Substance and Sexual Activity Alcohol use: Yes Drug use: Not Currently SCREENINGS [place] Coma Scale Best Eye Response: Spontaneous Best Verbal Response: Oriented Best Motor Response: Follows commands Damian Coma Scale Score: 15 PHYSICAL EXAM ED Triage Vitals Temp Heart Rate Resp BP 01/26/23 1445 01/26/23 1445 01/26/23 1445 01/26/23 1445 36.1 C (96.9 F) (!) 134 24 (!) 184/117 SpO2 Temp Source Heart Rate Source Patient Position 01/26/23 1445 01/26/23 1445 01/26/23 1502 01/26/23 1445 91 % Temporal Monitor Sitting BP Location FiO2 (%) 01/26/23 1445 -- Right arm Physical Exam Tachypneic, tachycardic in the 130s, having a hard time holding still, wheezing bilaterally with diminished breath sounds on the left DIAGNOSTIC RESULTS RADIOLOGY (Per Emergency Physician): Interpretation per the Radiologist below, if available at the time of this note: XR chest 1 view Final Result FINDINGS/IMPRESSION: Limitations: Patient positioning/[id number]. Right hemithorax not included on the [id number] Lines, tubes, and devices: Endotracheal tube has its tip about 6.5 cm above the chun. NG tube hasits tip likely within the stomach, distal portion not included on the [id number]. Left-sided chest tube appears slightly retracted with its tip in the left perihilar region. Cardiomediastinal silhouette: Heart size is within normal limits. Lungs/Pleura: Streaky bibasilar atelectasis/pneumonia. Questional trace left pleural effusion. No discrete pneumothorax. Unchanged Osseous structures: Unchanged in appearance. Soft tissues: No soft tissue abnormality is detected. Report Dictated on Electronically Signed By: Vicente Gillette MD Electronically Signed Date/Time: 01/26/2023 6:15 PM EST XR chest 1 view Final Result 1. New endotracheal tube in satisfactory position. 2. Left-sided chest tube. 3. No residual left-sided pneumothorax. Report Dictated on Electronically Signed By: Jordin Dalton MD Electronically Signed Date/Time: 01/26/2023 4:30 PM EST XR chest 1 view Final Result FINDINGS/IMPRESSION: 1. Lines/Tubes/Devices/Hardware: None. 2. Lungs: No consolidation or pulmonary edema. Changes of COPD. Fibrotic changes and bronchiectasisat the lung bases. Surgical clips or sutures within the right upper lung. 3. Pleura: Large left pneumothorax. No pneumothorax or large pleural effusions. 4. Heart and mediastinum: No significant mediastinal shift. Normal cardiomediastinal contours. CRITICAL TEST COMMUNICATION: Dr. Cunha was notified by telephone today at 3:34 PM. Report Dictated on Electronically Signed By: Maurice Hernandez MD Electronically Signed Date/Time: 01/26/2023 3:35 PM EST LABS: Labs Reviewed CBC WITH AUTO DIFFERENTIAL - Abnormal Result Value Auto WBC 12.4 (*) RBC 5.15 Hemoglobin 13.4 Hematocrit 44.3 MCV 86.0 MCH 26.0 MCHC 30.2 (*) RDW 16.4 (*) Platelets 413 MPV 9.7 Neutrophils Relative 66.7 Lymphocytes Relative 19.5 (*) Monocytes Relative 11.4 (*) Eosinophils Relative 1.9 Basophils Relative 0.3 Immature Grans % 0.2 (*) Neutrophils Absolute 8.3 (*) Lymphocytes Absolute 2.4 Monocytes Absolute 1.4 (*) Eosinophils Absolute 0.2 Basophils Absolute 0.0 Immature Grans Absolute 0.0 BLOOD GAS, ARTERIAL(SWR AND SHC) - Abnormal pH 7.292 (*) pCO2 ARTERIAL 69 (*) pO2 ARTERIAL 369 (*) BASE EXCESS ARTERIAL 7.0 (*) HCO3 ARTERIAL 33.2 (*) CO2 TOTAL, ARTERIAL 35.0 (*) O2 % SAT ARTERIAL 100.0 (*) Source Of Oxygen ETT COMPREHENSIVE METABOLIC PANEL - Abnormal SODIUM 141 POTASSIUM 3.8 CHLORIDE 99 CARBON DIOXIDE 34 (*) ANION GAP 8 UREA NITROGEN 13 CREATININE 0.94 GLUCOSE 160 (*) CALCIUM 9.2 AST (SGOT) 27 ALT 31 ALKALINE PHOSPHATASE 79 ALBUMIN 4.6 BILIRUBIN, TOTAL 0.5 TOTAL PROTEIN 8.7 (*) eGFR >90.0 SARS-COV-2, FLU A/B, AND RSV COMBO - Normal SARS-CoV-2 Not Detected Respiratory Syncytial Virus Not Detected Influenza A Not Detected Influenza B Not Detected Narrative: Methodology: real-time, RT-PCR The SARS-CoV-2, Flu A/B, and RSV Combo assay is intended for in vitro diagnostic use under the FDA Emergency Use Authorization (EUA). This test has not been FDA cleared or approved. In compliance with this authorization, please visit www.fda.gov/media/133268/download or www.fda.gov/media/310398/download to access the applicable information sheets. TROPONIN, WITH SERIAL REFLEX - Normal TROPONIN I <0.012 Narrative: Patients with high levels of Biotin oral intake (ie >5 mg/day) may have falsely decreased Troponin levels. LACTIC ACID WITH REFLEX - Normal LACTIC ACID 1.5 TROPONIN I All other labs were within normal range or not returned as of this dictation. EMERGENCY DEPARTMENT COURSE and DIFFERENTIAL DIAGNOSIS/MDM: Vitals: Vitals: 01/26/23 1502 01/26/23 1715 01/26/23 1718 01/26/23 1800 BP: (!) 184/117 114/87 104/69 BP Location: Right arm Right arm Right arm Patient Position: Sitting Lying Lying Pulse: (!) 134 89 82 Resp: 24 18 18 Temp: 36.1 C (96.9 F) TempSrc: Skin SpO2: 91% 100% 100% Weight: 84.1 kg (185 lb 6.5 oz) Medications nitroglycerin (Kelton-Bid) 2 % ointment - Pyxis ADS Override Pull (has no administration in time range) nitroglycerin (Kelton-Bid) 2 % ointment 1 inch (1 inch TransDERmal Given 01/26/23 1443) nitroGLYCERIN 50 mg in dextrose 5% 250 mL infusion (0 mcg/min IntraVENous Stopped 01/26/23 1558) ipratropium-albuterol (Duo-Neb) 0.5-2.5 mg/3 mL nebulizer solution 3 mL (6 mL Nebulization Given 01/26/23 144) methylPREDNISolone sodium succinate (PF) (SOLU-Medrol) injection 125 mg (125 mg IntraVENous Given 01/26/23 1440) lidocaine (Xylocaine) 1 % injection - Pyxis ADS Override Pull ( Given by Other 01/26/23 1535) Propofol (Diprivan) 200 MG/20ML injection - Pyxis ADS Override Pull ( Given 01/26/23 155) MDM elements: The patient presented with chief complaint of shortness of breath hypoxia tachypnea and respiratory failure brought in by EMS with history of COPD on home oxygen, the best his oxygen got on the NIV was 89%, chest x-ray showed large left-sided pneumothorax, at this point we discussed with him intubating him to improve his oxygenation, after intubation we placed left-sided chest tube for the pneumothorax, pneumothorax had resolved but the tip of the tube was at the diaphragm, the chest tube was replaced and repositioned, and still is diverting inferiorly but is in better position,is a 28 English chest tube, see procedure notes below, pulse ox 100%, admitted to ICU at [place]. The differential diagnosis associated with this patient's presentation includes flash pulm edema, COPD exacerbation, pneumonia, COVID-19, pneumothorax, PE. Our workup consisted of ordering/reviewing: Chest x-ray blood work mechanical ventilatory support. To aid in management, I performed an independent interpretation of EKG(s) interpreted by me shows sinus tachycardia no acute ST or T wave changes see Epiphany for full interpretation Xray(s) initially interpreted by me shows left-sided pneumothorax with no significant pulmonary edema or infiltrate, repeat x-rays interpreted by me show improvement of the pneumothorax, appropriately placed ET tube and OG tube, last x-ray interpreted by me shows an improvement in the chest tube placement still resolved pneumothorax. Patient is 79 PCO2 in the 60s, rate was increased from 18-20 onthe ventilator. The patient will be Admitted. Patient is in agreement with this plan. PROCEDURES: Unless otherwise noted below, none Intubation Performed by: Ramon Cunha MD Authorized by: Ramon Cunha MD Consent: The indications, risks, benefits, alternatives to the procedure were explained to the patient/surrogate decision maker and their questions answered. Consent was obtained to proceed with the procedure. Timeout: Completed immediately prior to the start of the procedure which included verification of the correct patient, correct site and agreement on the procedure to be done. Anesthetic: Local anesthetic used: not applicable Indications: Indications: respiratory failure Preparation: Assessment: No concerns Mallampati score: II Neck mobility: Normal Pharmacologic strategy: rapid sequence Induction agents: Etomidate Paralytics: Succinylcholine Procedure details: Preoxygenation: BiLevel CPR in progress: no Total number of attempts: 1 Successful intubation details: Intubation method: Oral Intubation technique: video-assisted Laryngoscope blade: Mac 4 Bougie used: no Cormack-Lehane view: I Tube size (mm): 7.5 Tube type: Cuffed Placement assessment: ETT at lip (cm): 24 Tube secured with: Adhesive tape Breath sounds: Reduced on left Placement verification: CXR verification, direct visualization and end-tidal CO2 detector Follow-up chest x-ray: Ordered Post-procedure: Estimated Blood Loss: None Specify complication(s): No apparent complications Assistants & Supervision: I personally performed the procedure documented as signed by this procedure note Chest Tube Insertion Performed by: Ramon Cunha MD Authorized by: Ramon Cunha MD Consent: The indications, risks, benefits, alternatives to the procedure were explained to the patient/surrogate decision maker and their questions answered. Consent was obtained to proceed with the procedure. Timeout: Completed immediately prior to the start of the procedure which included verification of the correct patient, correct site and agreement on the procedure to be done. Indications: Indications: pneumothorax Anesthetic: Local anesthetic used: lidocaine without epinephrine Preparation: Patient was prepped and draped in usual sterile fashion. Skin prepped: skin prepped with chlorhexidine Sedation: Sedation: anxiolysis Procedure Details: Tube type: surgical Placement location: lateral midaxillary line Tube size: 28 English Dissection instrument: Marlene clamp and finger Over rib: 4th Tube inserted to 14 cm. Tube connected to: suction Suture material: 0 silk Ultrasound guidance: no Post-procedure Details: Post-procedure: dressing applied Drainage characteristics: air only Drainage amount: 5 ml Air leak: Yes Breath sounds: equal Follow-up chest x-ray: ordered Estimated blood loss: none Complications: other (see comment) Complication comment: initially going inferiorly toward diaphragm, redirected with some improvement Assistants & Supervision: I personally performed the procedure documented as signed by this procedure note CRITICAL CARE TIME Critical Care note: This patient was unstable and required constant supervision by me for at least 90 minutes during their visit. The patient's condition requiring intervention included: Respiratory failure, pneumothorax, hypertension. The interventions included: IV nitroglycerin, mechanical ventilatory support, noninvasive ventilation, frequent reassessments, discussions with ICU. This critical care time did not include time for procedures or time spent by the physicians liaison inspection laboratory assistant if they were caring for this patient. FINAL IMPRESSION 1. Pneumothorax on left 2. Acute respiratory failure with hypoxia (HCC) DISPOSITION Admit 01/26/2023 04:30:53 PM PATIENT REFERRED TO: No follow-up provider specified. DISCHARGE MEDICATIONS: New Prescriptions No medications on file (Comment: Please note this report has been produced using speech recognition software and may contain errors related to that system including errors in grammar, punctuation, and spelling, as well as words and phrases that may be inappropriate. If there are any questions or concerns please feel freeto contact the dictating provider for clarification.) Ramon Cunha MD (electronically signed) Emergency Medicine Provider Ramon Cunha MD 01/26/23 1721 Ramon Cunha MD 01/26/23 1821 * Francois Murray RN - 01/26/2023 2:37 PM EST Pt arrives by [facility] with respiratory distress today. Pt on home O2 5L. Gasping for air per EMS. Pt placed on nonrebreather and sat remain in 80's. Placed on CPAP by EMS. Pt arrives in tripod position and using accessory muscles. Say 90% on CPAP. Placed on enamel dipper. Sinus tach. Dr Cunha and staff at bedside. documented in this [facility]11-15-2023 History and physical note* Charlene Del Cid APRN - EMPLOYMENT OFFICER - 01/26/2023 7:23 PM EST Images from the original note were not included. Internal Medicine: MICU Initial History and Physical Name: Luis Steele : 1970(52 y.o.) Date: 01/26/23 Attending: Dr. Trejo Subjective: Chief Complaint: SOB HPI: 52 YO w/PMH Severe COPD on home O2 5L, Lobectomy, Hx Trach (2014), dysphagia, food retention, Diverticulitis, pancreatitis, TIA, anemia, GI bleed, MRSA hx, Kidney stone w/stent, Tobacco use (2 PPD hx), and anxiety. Of note patient at [facility] in 06/2014 w/ARDS, MRSA necrotizing pneumonia, septic shock, NANCY and cavitary lesions requiring ICU, intubation and CRRT during stay. Patient presented to [facility] ED today 01/26/2023 with acute onset respiratory distress. Upon arriving to Ed , patient onbi-pap w/O2 sats 88%. He is tachypneic and tripoding. CXR showed a large Left-sided pneumothorax. The decision was made to intubate the patient. Post intubation, left chest tube placed for pneumothorax. Post chest tube films showed Pneumo resolution CT initially noted at the diaphragm. Chest tube was repositioned per ED and repeat films here show appropriate placement and resolved pneumo. [facility] Upon arrival patient with ETT to vent. Tolerating vent settings. Labs with Leukocytosis of 12.4 otherwise unremarkable. Will complete broad cultures and start patient on Ceftriaxone. Admitting for acute exac of COPD Past Medical History: Diagnosis Date Anxiety COPD (chronic obstructive pulmonary disease) (HCC) Diverticulitis Pancreatitis TIA (transient ischemic attack) Pt stated in and in 2014 Past Surgical History: Procedure Laterality Date HERNIA REPAIR LUNG LOBECTOMY TONSILLECTOMY (HISTORICAL) UPPER GASTROINTESTINAL ENDOSCOPY 07/10/2021 URETERAL STENT PLACEMENT Right Family History Problem Relation Name Age of Onset Heart disease Mother High Blood Pressure Mother Cancer Mother Cancer Father Social History Socioeconomic History Marital status: Spouse name: Not on file Number of children: Not on file Years of education: Not on file Highest education level: Not on file Occupational History Not on file Tobacco Use Smoking status: Former Packs/day: .5 Types: Cigarettes Smokeless tobacco: Former Quit date: 06/24/2021 Vaping Use Vaping Use: Never used Substance and Sexual Activity Alcohol use: Yes Drug use: Not Currently Sexual activity: Not on file Other Topics Concern Not on file Social History Narrative Not on file Social Determinants of Health Financial Resource Strain: Not on file Food Insecurity: Not on file Transportation Needs: Not on file Physical Activity: Not on file Stress: Not on file Social Connections: Not on file Intimate Partner Violence: Not on file Housing Stability: Not on file Allergies Allergen Reactions Tramadol Anaphylaxis and Swelling Tongue swells tongue swelling Codeine Other reaction(s): Other: See Comments, PT UNSURE OF REACTION, Unknown Pt can not remember effects happened when was baby Prior to Admission medications Medication Sig Start Date End Date Taking? Authorizing Provider albuterol (2.5 MG/3ML) 0.083% nebulizer solution Take 3 mL (2.5 mg) by nebulization every 6 hours as needed for wheezing. 12/04/22 01/03/23 Kelton Enrique MD albuterol 108 (90 Base) MCG/ACT inhaler Inhale 2 puffs daily. Historical Provider, albuterol 108 (90 Base) MCG/ACT inhaler Inhale 2 puffs every 4 hours as needed for wheezing. 12/04/22 01/03/23 Kelton Enrique MD buPROPion XL (Wellbutrin XL) 300 MG 24 hr tablet Take 300 mg by mouth every morning. Historical Provider, ferrous sulfate 325 (65 Fe) MG tablet Take 325 mg by mouth. 11/14/22 Historical Provider, fluticasone-salmeterol (Advair) 230-21 MCG/ACT inhaler Inhale 2 puffs in the morning and 2 puffs inthe evening. 11/16/22 Historical Provider, ipratropium-albuterol (Duo-Neb) 0.5-2.5 mg/3 mL nebulizer solution Inhale 3 mL. 07/29/21 Historical Provider, pantoprazole (ProtoNix) 40 MG EC tablet TAKE ONE TABLET BY MOUTH EVERY MORNING BEFORE BREAKFAST 07/10/21 07/10/22 Charles Patten sertraline (Zoloft) 100 MG tablet Take 100 mg by mouth in the morning. 04/01/22 04/01/23 Historical Provider, Objective: Oxygen Delivery: O2 Flow Rate (L/min): 15 L/min VITALS: BP 121/64 (BP Location: Right arm, Patient Position: Lying) Pulse 81 Temp 36.1 C (96.9 F) (Skin) Resp 21 Wt 84.1 kg (185 lb 6.5 oz) SpO2 100% BMI 25.87 kg/m CURRENT PULSE OXIMETRY: SpO2: 100 % Review of Systems Unable to perform ROS: Acuity of condition Constitutional: General Appearance [x]WDWN []Obese []Cachectic []Thin []Ill Eyes: Inspection of Pupils/Irises Pupils round and react: [x]Yes []No Sclera: []Icteric [x]Non-Icteric Inspection of Conjunctiva/Lids Conjunctiva: []Injected [x]Non-Injected Lids: [x]Intact []Lesion Present ENT/Mouth: External Inspection of ears/nose [x] Normal [] Scar/Lesion/Mass Inspection of teeth/lips/gums Dentition: [][place] Teeth []Dentures Lips/Gums: [x]Intact []Lesion Present Mucosa: [x][place] []Moist [x]Dry Neck: External Appearance Overall Appearance: [x]Normal []Lesion/Mass/Crepitus Present Trachea midline: [x]Yes []No Thyroid [x]Normal []Enlarged []Tender []Mass []Absent Respiratory: Respiratory effort []Labored []Non-Labored [x] Mechanically-Ventilated Auscultation []Clear []Crackles [x]Wheezes/diminished [][place] Cardiovascular: Auscultation Rate: [x]Regular []Irregular []Tachycardia []Bradycardia Rhythm: [x]Regular []Irregular Murmur: []Present [x]Absent Extremities Peripheral Edema: []Present [x]Absent Varicosities: []Present []Absent Gastrointestinal: Abdomen Palpation: [x]Soft []Firm []Tender [x]Non-Tender []Distended []Non-distended Mass: []Present []Absent Bowel Sounds: [x]Present []Absent Hernia: []Present [x]Absent Liver/Spleen: [x]Hepatosplenomegaly [x]Organomegaly Absent Musculoskeletal: Inspection of Digits and Nails Cyanosis: []Present [x]Absent Clubbing: []Present [x]Absent Ischemia: []Present [x]Absent Infection: []Present [x]Absent Extremities SCOTT Equally: ([x]RUE [x]RLE [x]LUE [x]LLE) Strength/Tone: Intact and Normal ([x]RUE [x]RLE [x]LUE [x]LLE) Skin: Inspection [x]Normal/Pale []Rash []Lesion []Ulcer Palpation [x]Warm []Cool [x]Dry []Clammy []Nodules []Induration []Skin-tightening Cap-Refill: [x] <3 sec [] >3 seconds (delayed) Neurologic: GCS EYE: 4 - Opens spontaneously GCS MOTOR: 6 - Obeys commands for movement GCS VERBAL: 1 - No response Total GCS: 11 [x] Sensation grossly intact Psych: Mental Status Alert: [x]Yes [] No Oriented: []x0 []X1 []X2 [x]x3 Mood/Affect [x]Normal []Flat []Agitated []Depressed []Anxious []Calm []Sedated []NAD [facility] within last 24 hours- BMP: Recent Labs 01/26/23 1451 NA 141 K 3.8 CL 99 CO2 34* BUN 13 CREATININE 0.94 CALCIUM 9.2 LFTs: Recent Labs 01/26/23 1451 AST 27 ALT 31 PROT 8.7* ALBUMIN 4.6 BILITOT 0.5 ALKPHOS 79 Glucose: Recent Labs 01/26/23 1451 GLUCOSE 160* Procal: No results for input(s): PROCAL in the last 72 hours. CBC: Recent Labs 01/26/23 1451 WBC 12.4* HGB 13.4 HCT 44.3 PLT 413 MCV 86.0 RDW 16.4* ABGs: Recent Labs 01/26/23 1713 [id number] ETT Lactic Acid: Recent Labs 01/26/23 1451 LACTATE 1.5 INR: No results for input(s): INR in the last 72 hours. Cardiac Injury Profile: Recent Labs 01/26/23 1451 TROPONINI <0.012 Labs in Last 3 months: Lab Results Component Value Date TSH 1.574 07/02/2021 VITD25 16 (L) 04/05/2021 Microbiology- Urine Cx: No results found for: URINECX Blood Cx: Lab Results Component Value Date BLOODCX No growth at 5 days. 07/01/2021 BLOODCX No growth at 5 days. 07/01/2021 Sputum Cx: Lab Results Component Value Date RESPCULT Few normal respiratory olayinka. 04/09/2021 Gram Stain: Lab Results Component Value Date LABGRAM 07/06/2021 Many polymorphonuclear cells/lpf. Few epithelial cells/lpf. Many gram negative bacilli. Few gram positive cocci in clusters. Few gram positive bacilli. PNA PCR: No results found for: HUMANMETAPNE COVID19: No results found for: COVID19 Legionella Ag: No results found for: LEGIONELLAPN Strep Ag: No results for input(s): STREPPNEUMO in the last 72 hours. Imaging- 01/26/2023 CXR 1620 FINDINGS: An endotracheal tube is now seen with its tip approximately 3 cm above the chun. An enteric tube extends into the stomach. The cardiac silhouette and mediastinum are otherwise unremarkable. A left-sided chest tube is now in place. No residual pneumothorax is appreciated. IMPRESSION: 1. New endotracheal tube in satisfactory position. 2. Left-sided chest tube. 3. No residual left-sided pneumothorax. 01/26/2023 CXR 1707 IMPRESSION: FINDINGS/IMPRESSION: Limitations: Patient positioning/[id number]. Right hemithorax not included on the [id number] Lines, tubes, and devices: Endotracheal tube has its tip about 6.5 cm above the chun. NG tube hasits tip likely within the stomach, distal portion not included on the [id number]. Left-sided chest tube appears slightly retracted with its tip in the left perihilar region. Cardiomediastinal silhouette: Heart size is within normal limits. Lungs/Pleura: Streaky bibasilar atelectasis/pneumonia. Questional trace left pleural effusion. No discrete pneumothorax. Unchanged Osseous structures: Unchanged in appearance. Soft tissues: No soft tissue abnormality is detected. Assessment and Plan: Principal Problem: Pneumothorax on left Assessment: Acute Exacerbation COPD Acute on chronic hypoxic and hypercapnic respiratory failure Acute Left Pneumothorax Possible CAP Leukocytosis HX Severe COPD Hx Centrilobular emphysema HX Home O2 HX MRSA PNA w/ necrotizing -Presents w/acute exac COPD and acute left pneumo, required intubation and left chest tube placement -Steroid pulse dose Methylpred 125mg IVP x1 and 60mg Q8H -Broad cultures, blood, urine sputum, MRSA PCR, COVID 19, Viral PCR and procalcitonin pending -Ceftriaxone daily -Duonebs Q4h and PRN, Budesonide nebs daily -Guaifenesin q8h -Left CT + leak --> 20cm suction no crepitus --> possible water seal in am -Mechanical vent bundle -Lung protective vent settings -SAT/SBT QAM -patient with history of being worked up for lung transplant --> follow up with [facility] tomorrow Anemia, of chronic disease HX GI bleed Hx Gastric Ulcer -Stable -Continue home Ferrous Sulfate and Pantoprazole -Trend labs -Tranfuse <7 Anxiety -Continue home wellbutrin and sertraline -Sedated on propofol and Fentanyl -Hydroxyzine prn Malnutrition Dysphagia HX Hx Gastroparesis -Tube feeds started -Known history of dysphagia -Bowel regimen Senna bid and Miralax BID -Consult to Casket Assembler -Consult speech post extubation for swallow eval Tobacco Use -Hx 2PPD cigarettes -Nicotine patch -Storekeeper Helper on smoking cessation Debility -PT/OT eval and treat -Consult to social work and case management for discharge planning -Up to chair as tolerated FEN -Trend labs -replace lytes PRN -Start Tube feed -Bowel regimen --> senna and miralax -Strict I/O -Daily weights Code Status -Full Code GI Prophylaxis: Pantoprazole IV DVT Prophylaxis: Lovenox 40 q 24hr - creatinine clearance >30 BMI Classification: Body mass index is 25.87 kg/m . overweight BMI 25-29.[address] Nguyen Disposition: Remain in ICU Status Critical Care Time: >40 minutes Total critical care time caring for this patient with life threatening, unstable organ failure, including direct patient contact, management of life support systems, review of data including imaging and labs, discussions with other team members and physicians, excluding procedures. documented in this [facility]11-07-2023 Miscellaneous Notes* Telephone Encounter - Sandra Luis OCCA - 01/18/2023 5:21 PM EST TC to patient who is agreeable to schedule follow up. Patient scheduled in first available on 02/18/[address] Buchanan as he prefers to see her over CERAMICS TEST ENGINEER. Patient also provided number to call and schedule spirometry and lung diffusion testing previously ordered by Dr. Buchanan on 09/06 as he hopes tohave this completed before follow up visit. Nothing further at this time. JASON Marino * Telephone Encounter - Antwan Buchanan DO - 01/18/2023 4:51 PM EST Please make him a follow up to discuss all the testing updates needed Antwan Buchanan DO * Telephone Encounter - Marga Blackwood RN - 01/10/2023 4:51 PM EDT Patient reports his dad Tuesday, and before he passed made patient to promise to get allthe tests done pcp wanted him to. Asking if pcp wanted him to do a CT? Reports he had a CTA done at ER recently. Asking if pcp needs him to do labs or anything else? Please advise patient. [facility] Discharge [facility]* Discharge Instructions* Kelton Enrique MD - 12/04/2022 4:01 AM EDT Please return to the Emergency Department immediately for new or worsening symptoms or any new concerns. Please complete course of prednisone as prescribed. You may use nebulized albuterol and an albuterol inhaler as needed for wheezing or shortness of breath as prescribed. Please follow-up with [your primary care doctor] within the next [3-5] days. * Attachments The following attachments cannot be sent through Care Everywhere. * COPD Exacerbation, Adult ED ([place]) documented in this [id number] Emergency department Note* Luis Antonio Manuel - 12/04/2022 2:35 AM EDT IV started by [facility] to Left hand by thumb dc'd by us. IV would not flush properly or draw back. IV cather intact. Site dressed with gauze & secured with tape. Luis Antonio Manuel 12/04/22 0237 [id number] Emergency department Note* Luis Antonio Manuel - 12/04/2022 2:35 AM EDT IV started by [facility] to Left hand by thumb dc'd by us. IV would not flush properly or draw back. IV cather intact. Site dressed with gauze & secured with tape. Luis Antonio Manuel 12/04/22 0237 * Kelton Enrique MD - 12/04/2022 1:56 AM EDT Emergency Department Encounter [facility] ED Patient: Luis Steele : 1970 Date of Evaluation: 12/04/2022 ED Provider: Kelton Enrique MD Note: I wore an N95 mask and gloves during this encounter. CHIEF COMPLAINT: Shortness of breath HPI: Luis Steele is a 52 y.o. male with PMH per EMR including COPD, prior lung lobectomy, presents with concern for shortness of breath. Patient reports for the last 24 hours has had progressively worsening shortness of breath, with wheezing, chest tightness, nonproductive cough, denies fever chills, sore throat, chest pain, nausea vomiting, abdominal pain, diarrhea, lower extremity swelling or calfpain. Patient arrives by paramedics, reportedly hypoxic in the prehospital setting requiring nonrebreather, wears 4 L nasal cannula at baseline, administered DuoNeb with improvement of wheezing, weaned to 5 L nasal cannula, patient endorses symptom improvement on arrival, patient also treated with 125 mg Solu-Medrol by paramedics. REVIEW OF SYSTEMS: Pertinent positives and negatives as per HPI. HISTORIES: PAST MEDICAL HISTORY: as per HPI SOCIAL HISTORY: History of tobacco use MEDICATIONS: Nursing notes and EMR reviewed ALLERGIES: Nursing notes and EMR reviewed PHYSICAL EXAM: Vital signs: reviewed General: Nontoxic-appearing, mild respiratory distress Eyes: no conjunctival injection, eyes tracking HEENT: airway patent, mucous membranes moist Cardiovascular: regular rhythm, tachycardic rate Respiratory: non-labored breathing, diffuse wheezing, diffusely diminished breath sounds Gastrointestinal: soft, non-distended, non-tender to deep palpation throughout Extremities: no obvious deformity, non edematous bilateral lower extremities Integumentary: warm, dry Neurologic: alert and oriented, answering questions appropriately, no obvious neurologic deficits MEDICAL DECISION MAKING: Medications sodium chloride 0.9 % bolus 500 mL (500 mL IntraVENous New Bag 12/04/22 0320) ipratropium-albuterol (Duo-Neb) 0.5-2.5 mg/3 mL nebulizer solution 3 mL (3 mL Nebulization Given 12/04/22 0222) Luis Steele is a 52 y.o. male who presents as above, 24 hours of worsening shortness of breath, wheezing, cough, chest tightness, arrives hypoxic saturating well on 5 L nasal cannula, baseline oxygen requirement 4 L nasal cannula, treated with DuoNeb and Solu-Medrol prior to arrival, diffusely wheezy on exam, mild respiratory distress, presentation concerning for COPD exacerbation, viral respiratory illness, pneumonia, ACS, discussed with patient, will obtain work-up to evaluate including chest x-ray, EKG, labs evaluation, viral panel, will treat with DuoNeb. Labs obtained, interpreted by me, notable for no renal dysfunction, BNP within normal limits, VBG pH without acidosis, no leukocytosis, hemoglobin 10.4 comparable to prior evaluations, viral panel negative for COVID influenza and RSV EKG obtained, per my interpretation, notable for sinus tachycardia, no acute ischemic ST segment changes. Troponin WNL CXR obtained, interpreted per radiologist postoperative change in the right, COPD, no new consolidation Patient informed of findings, on reevaluation he is breathing more comfortably, wheezing is improved, patient reports he is breathing at his baseline, he was weaned to 4 L nasal cannula (his baseline), tachycardia improved, I discussed management options with patient including hospitalization for further management including bronchodilators and steroids, he declines hospitalization, he elects to be discharged, will prescribe completion of 5-day course of prednisone, recommend use of nebulized albuterol and inhaler at home, close PCP follow-up, and strict return precautions discussed, patient in agreement with plan, stable for discharge. DIAGNOSIS: COPD exacerbation DISPOSITION: Discharge PRESCRIPTIONS: New Prescriptions ALBUTEROL (2.5 MG/3ML) 0.083% NEBULIZER SOLUTION Take 3 mL (2.5 mg) by nebulization every 6 hours as needed for wheezing. ALBUTEROL 108 (90 BASE) MCG/ACT INHALER Inhale 2 puffs every 4 hours as needed for wheezing. PREDNISONE (DELTASONE) 50 MG TABLET Take 1 tablet (50 mg) by mouth daily for 4 days. First dose provided in ED, start tomorrow Comment: Please note this report has been produced using speech recognition software and may contain errors related to that system including errors in grammar, punctuation, and spelling, as well as words and phrases that may be inappropriate. If there are any questions or concerns please feel free to contact the dictating provider for clarification. Kelton Enrique MD [facility] Kelton Enrique MD 12/04/22 0547 * Gerald Rosario RN - 12/04/2022 1:56 AM EDT Pt comes in VIA squad to room 6 for shortness of breath, Pt was initially 86 RA prior to squad arrived and they gave him DuoNeb and a non-rebreather and pt incresased to 99 on 4L NC. Pt complains of chest tightness and EKG done and MD at bedside. documented in this [facility]09-23-2023 Emergency department Triage note* Gerald Rosario RN - 12/04/2022 1:56 AM EDT Pt comes in VIA squad to room 6 for shortness of breath, Pt was initially 86 RA prior to squad arrived and they gave him DuoNeb and a non-rebreather and pt incresased to 99 on 4L NC. Pt complains of chest tightness and EKG done and MD at bedside. [facility] [id number] Physician Emergency department Note* Kelton Enrique MD - 12/04/2022 1:56 AM EDT Emergency Department Encounter [facility] ED Patient: Luis Steele : 1970 Date of Evaluation: 12/04/2022 ED Provider: Kelton Enrique MD Note: I wore an N95 mask and gloves during this encounter. CHIEF COMPLAINT: Shortness of breath HPI: Luis Steele is a 52 y.o. male with PMH per EMR including COPD, prior lung lobectomy, presents with concern for shortness of breath. Patient reports for the last 24 hours has had progressively worsening shortness of breath, with wheezing, chest tightness, nonproductive cough, denies fever chills, sore throat, chest pain, nausea vomiting, abdominal pain, diarrhea, lower extremity swelling or calfpain. Patient arrives by paramedics, reportedly hypoxic in the prehospital setting requiring nonrebreather, wears 4 L nasal cannula at baseline, administered DuoNeb with improvement of wheezing, weaned to 5 L nasal cannula, patient endorses symptom improvement on arrival, patient also treated with 125 mg Solu-Medrol by paramedics. REVIEW OF SYSTEMS: Pertinent positives and negatives as per HPI. HISTORIES: PAST MEDICAL HISTORY: as per HPI SOCIAL HISTORY: History of tobacco use MEDICATIONS: Nursing notes and EMR reviewed ALLERGIES: Nursing notes and EMR reviewed PHYSICAL EXAM: Vital signs: reviewed General: Nontoxic-appearing, mild respiratory distress Eyes: no conjunctival injection, eyes tracking HEENT: airway patent, mucous membranes moist Cardiovascular: regular rhythm, tachycardic rate Respiratory: non-labored breathing, diffuse wheezing, diffusely diminished breath sounds Gastrointestinal: soft, non-distended, non-tender to deep palpation throughout Extremities: no obvious deformity, non edematous bilateral lower extremities Integumentary: warm, dry Neurologic: alert and oriented, answering questions appropriately, no obvious neurologic deficits MEDICAL DECISION MAKING: Medications sodium chloride 0.9 % bolus 500 mL (500 mL IntraVENous New Bag 12/04/22 0320) ipratropium-albuterol (Duo-Neb) 0.5-2.5 mg/3 mL nebulizer solution 3 mL (3 mL Nebulization Given 12/04/22 0222) Luis Steele is a 52 y.o. male who presents as above, 24 hours of worsening shortness of breath, wheezing, cough, chest tightness, arrives hypoxic saturating well on 5 L nasal cannula, baseline oxygen requirement 4 L nasal cannula, treated with DuoNeb and Solu-Medrol prior to arrival, diffusely wheezy on exam, mild respiratory distress, presentation concerning for COPD exacerbation, viral respiratory illness, pneumonia, ACS, discussed with patient, will obtain work-up to evaluate including chest x-ray, EKG, labs evaluation, viral panel, will treat with DuoNeb. Labs obtained, interpreted by me, notable for no renal dysfunction, BNP within normal limits, VBG pH without acidosis, no leukocytosis, hemoglobin 10.4 comparable to prior evaluations, viral panel negative for COVID influenza and RSV EKG obtained, per my interpretation, notable for sinus tachycardia, no acute ischemic ST segment changes. Troponin WNL CXR obtained, interpreted per radiologist postoperative change in the right, COPD, no new consolidation Patient informed of findings, on reevaluation he is breathing more comfortably, wheezing is improved, patient reports he is breathing at his baseline, he was weaned to 4 L nasal cannula (his baseline), tachycardia improved, I discussed management options with patient including hospitalization for further management including bronchodilators and steroids, he declines hospitalization, he elects to be discharged, will prescribe completion of 5-day course of prednisone, recommend use of nebulized albuterol and inhaler at home, close PCP follow-up, and strict return precautions discussed, patient in agreement with plan, stable for discharge. DIAGNOSIS: COPD exacerbation DISPOSITION: Discharge PRESCRIPTIONS: New Prescriptions ALBUTEROL (2.5 MG/3ML) 0.083% NEBULIZER SOLUTION Take 3 mL (2.5 mg) by nebulization every 6 hours as needed for wheezing. ALBUTEROL 108 (90 BASE) MCG/ACT INHALER Inhale 2 puffs every 4 hours as needed for wheezing. PREDNISONE (DELTASONE) 50 MG TABLET Take 1 tablet (50 mg) by mouth daily for 4 days. First dose provided in ED, start tomorrow Comment: Please note this report has been produced using speech recognition software and may contain errors related to that system including errors in grammar, punctuation, and spelling, as well as words and phrases that may be inappropriate. If there are any questions or concerns please feel free to contact the dictating provider for clarification. Kelton Enrique MD [employer] Kelton Enrique MD 12/04/22 5333 [id number] Emergency department Note* Maeve Jauregui RN - 11/27/2022 8:45 PM EDT Patient provided with new set of scrub pants as he spit up on his pants. Patient given urinal to void. Maeve Jauregui RN 11/27/222045 [id number] Emergency department Note* Maeve Jauregui RN - 11/27/2022 8:45 PM EDT Patient provided with new set of scrub pants as he spit up on his pants. Patient given urinal to void. Maeve Jauregui RN 11/27/222045 * Tony Figueroa DO - 11/27/2022 8:03 PM EDT EMERGENCY DEPARTMENT ENCOUNTER Pt Name: Luis Steele Birthdate 1970 Date of evaluation: 11/27/2022 ED Provider: Tony Figueroa DO CHIEF COMPLAINT Chief Complaint Patient presents with Choking HISTORY OF PRESENT ILLNESS (Location/Symptom, Timing/Onset, Context/Setting, Quality, Duration, Modifying Factors, Severity) Note limiting factors. I wore appropriate PPE for the entirety of this encounter. HPI Luis Steele is a 52 y.o. male who presents to the emergency department episode of choking. Stateshe was eating a egg and toast sandwich just prior to arrival. Began to have significant mild coughing and sensation of something stuck in his throat prompting EMS to be called. While patient was arriving to the emergency room, he did cough up a piece of egg and toast. States symptoms are nearly reso lved. Patient chronically wears 4 L nasal cannula for emphysema. Still takes PPI as he has had erosive gastritis on prior EGDs. Nursing Notes were reviewed. REVIEW OF SYSTEMS 14 systems reviewed and otherwise acutely negative except as in the [place]. PAST MEDICAL HISTORY Past Medical History: Diagnosis Date Anxiety COPD (chronic obstructive pulmonary disease) (HCC) Diverticulitis Pancreatitis TIA (transient ischemic attack) Pt stated in and in 2014 SURGICAL HISTORY Past Surgical History: Procedure Laterality Date HERNIA REPAIR LUNG LOBECTOMY TONSILLECTOMY (HISTORICAL) UPPER GASTROINTESTINAL ENDOSCOPY 07/10/2021 URETERAL STENT PLACEMENT Right CURRENT MEDICATIONS Discharge Medication List as of 11/27/2022 9:08 PM CONTINUE these medications which have NOT CHANGED Details ferrous sulfate 325 (65 Fe) MG tablet Take 325 mg by mouth., Starting 11/14/2022, Historical Med fluticasone-salmeterol (Advair) 230-21 MCG/ACT inhaler Inhale 2 puffs in the morning and 2 puffs inthe evening., Starting Tu11/16/2022, Historical Med ipratropium-albuterol (Duo-Neb) 0.5-2.5 mg/3 mL nebulizer solution Inhale 3 mL., Starting Tue07/29/2021, Historical Med sertraline (Zoloft) 100 MG tablet Take 100 mg by mouth in the morning., Starting Tiffanie 04/01/2022, Until Tue04/01/2023, Historical Med albuterol 108 (90 Base) MCG/ACT inhaler Inhale 2 puffs daily., Historical Med buPROPion XL (Wellbutrin XL) 300 MG 24 hr tablet Take 300 mg by mouth every morning., Historical Med pantoprazole (ProtoNix) 40 MG EC tablet TAKE ONE TABLET BY MOUTH EVERY MORNING BEFORE BREAKFAST, Starting Tue07/10/2021, Until 07/10/2022 at 2359, Normal ALLERGIES Tramadol and Codeine FAMILY HISTORY Family History Problem Relation Name Age of Onset Heart disease Mother High Blood Pressure Mother Cancer Mother Cancer Father SOCIAL HISTORY Social History Socioeconomic History Marital status: Tobacco Use Smoking status: Former Packs/day: 0.50 Types: Cigarettes Smokeless tobacco: Former Quit date: 06/24/2021 Vaping Use Vaping Use: Never used Substance and Sexual Activity Alcohol use: Yes Drug use: Not Currently SCREENINGS PHYSICAL EXAM ED Triage Vitals [11/27/222013] Temp Heart Rate Resp BP 36.7 C (98.1 F) (!) 120 22 (!) 136/99 SpO2 Temp Source Heart Rate Source Patient Position 98 % Oral Monitor Sitting BP Location FiO2 (%) Right arm -- CONSTITUTIONAL: AOx4, no apparent distress, appears stated age HEAD: normocephalic, atraumatic EYES: PERRL, EOMI ENT: moist mucous membranes, uvula midline NECK: supple, symmetric BACK: symmetric LUNGS: Diminished breath sounds CARDIOVASCULAR: Tachycardic rate and rhythm, no murmurs, rubs or gallops ABDOMEN: soft, non-tender, non-distended with normal active bowel sounds : deferred NEUROLOGIC: MAEx4, no focal sensory or motor deficits MUSCULOSKELETAL: no clubbing, cyanosis or edema SKIN: no exposed rash DIAGNOSTIC RESULTS Procedures/EKG: EKG was reviewed by myself. Physician EKG interpretation can be found in [facility] RADIOLOGY (Per Emergency Physician): Interpretation per the Radiologist below, if available at the time of this note: XR chest 1 view Final Result 1. Stable examination. No acute findings. Report Dictated on Electronically Signed By: Hamlet Yoder MD Electronically Signed Date/Time: 11/27/2022 8:56 PM EDT ED BEDSIDE ULTRASOUND: Performed by ED Physician - none LABS: Labs Reviewed - No data to display All other labs were within normal range or not returned as of this dictation. EMERGENCY DEPARTMENT COURSE and DIFFERENTIAL DIAGNOSIS/MDM: Vitals: Vitals: 11/27/22201311/27/22210611/27/222111 BP: (!) 136/99 (!) 127/99 BP Location: Right arm Right arm Patient Position: Sitting Sitting Pulse: (!) 120 (!) 114 109 Resp: 22 20 Temp: 36.7 C (98.1 F) TempSrc: Oral SpO2: 98% 96% Weight: 77.1 kg (170 lb) EMERGENCY DEPARTMENT COURSE and DIFFERENTIAL DIAGNOSIS/MDM: Vitals: Vitals: 11/27/22201311/27/22210611/27/222111 BP: (!) 136/99 (!) 127/99 BP Location: Right arm Right arm Patient Position: Sitting Sitting Pulse: (!) 120 (!) 114 109 Resp: 22 20 Temp: 36.7 C (98.1 F) TempSrc: Oral SpO2: 98% 96% Weight: 77.1 kg (170 lb) The patient presented with a chief complaint of aspiration. Patient did cough up the apparent food which was stuck in his airway as he was arriving to the emergency room. The differential diagnosis associated with this patient's presentation includes retained foreign body, aspiration, pneumonia. Our workup consisted of ordering/reviewing chest x-ray which was clear. Patient currently saturating well on his 4 L nasal cannula. Heart rate is improving. Given breathing treatment for his emphysema. On reevaluation patient is relaxing on phone, feels significantly improved and comfortable plan to discharge home with close outpatient follow-up.. Diagnoses as of 11/27/222218 Choking, initial encounter Diagnostic tests considered but not performed: External records reviewed: Diagnostics interpreted by me: Xray(s) no acute findings Discussions with other clinicians: Chronic conditions impacting care: Emphysema Social determinants of health affecting care: ED Medications managed: Medications ipratropium-albuterol (Duo-Neb) 0.5-2.5 mg/3 mL nebulizer solution 3 mL (3 mL Nebulization Given 11/27/222023) CONSULTS: None PROCEDURES: Unless otherwise noted below, none Procedures Patients symptoms are consistent with sepsis, severe sepsis, or septic shock (If yes use .sepsiscoremeasure): FINAL IMPRESSION 1. Choking, initial encounter DISPOSITION/PLAN dc PATIENT REFERRED TO: Antwan Buchanan [address] [facility] [id number] Schedule an appointment as soon as possible for a visit DISCHARGE MEDICATIONS: Discharge Medication List as of 11/27/2022 9:08 PM (Comment: Please note this report has been produced using speech recognition software and may contain errors related to that system including errors in grammar, punctuation, and spelling, as well as words and phrases that may be inappropriate. If there are any questions or concerns please feel freeto contact the dictating provider for clarification.) Tony Figueroa DO (electronically signed) Emergency Medicine Provider Tony Figueroa DO 11/27/222220 * Maeve Jauregui RN - 11/27/2022 8:03 PM EDT Patient arrived by [place] squad to room 7. 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 Patient states he felt like he was going to pass out. Medics state patient was able to move air. Patient states he thinks he coughed up part of it on the way here. Patient has hx of emphysema and in on list for double lung transplant. Patient on 4L O2 at home. documented in [facility] - [id number] Emergency department Triage note* Maeve Jauregui RN - 11/27/2022 8:03 PM EDT Patient arrived by [place] squad to room 7. 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 Patient states he felt like he was going to pass out. Medics state patient was able to move air. Patient states he thinks he coughed up part of it on the way here. Patient has hx of emphysema and in on list for double lung transplant. Patient on 4L O2 at home. [facility] [id number] Physician Emergency department Note* Tony Figueroa DO - 11/27/2022 8:03 PM EDT EMERGENCY DEPARTMENT ENCOUNTER Pt Name: Luis Steele Birthdate 1970 Date of evaluation: 11/27/2022 ED Provider: Tony Figueroa DO CHIEF COMPLAINT Chief Complaint Patient presents with Choking HISTORY OF PRESENT ILLNESS (Location/Symptom, Timing/Onset, Context/Setting, Quality, Duration, Modifying Factors, Severity) Note limiting factors. I wore appropriate PPE for the entirety of this encounter. HPI Luis Steele is a 52 y.o. male who presents to the emergency department episode of choking. Stateshe was eating a egg and toast sandwich just prior to arrival. Began to have significant mild coughing and sensation of something stuck in his throat prompting EMS to be called. While patient was arriving to the emergency room, he did cough up a piece of egg and toast. States symptoms are nearly reso lved. Patient chronically wears 4 L nasal cannula for emphysema. Still takes PPI as he has had erosive gastritis on prior EGDs. Nursing Notes were reviewed. REVIEW OF SYSTEMS 14 systems reviewed and otherwise acutely negative except as in the [facility]. PAST MEDICAL HISTORY Past Medical History: Diagnosis Date Anxiety COPD (chronic obstructive pulmonary disease) (HCC) Diverticulitis Pancreatitis TIA (transient ischemic attack) Pt stated in 90s and in 2015 SURGICAL HISTORY Past Surgical History: Procedure Laterality Date HERNIA REPAIR LUNG LOBECTOMY TONSILLECTOMY (HISTORICAL) UPPER GASTROINTESTINAL ENDOSCOPY 07/10/2021 URETERAL STENT PLACEMENT Right CURRENT MEDICATIONS Discharge Medication List as of 11/27/2022 9:08 PM CONTINUE these medications which have NOT CHANGED Details ferrous sulfate 325 (65 Fe) MG tablet Take 325 mg by mouth., Starting 11/14/2022, Historical Med fluticasone-salmeterol (Advair) 230-21 MCG/ACT inhaler Inhale 2 puffs in the morning and 2 puffs inthe evening., Starting Tu11/16/2022, Historical Med ipratropium-albuterol (Duo-Neb) 0.5-2.5 mg/3 mL nebulizer solution Inhale 3 mL., Starting Tue07/29/2021, Historical Med sertraline (Zoloft) 100 MG tablet Take 100 mg by mouth in the morning., Starting Tiffanie 04/01/2022, Until Tue04/01/2023, Historical Med albuterol 108 (90 Base) MCG/ACT inhaler Inhale 2 puffs daily., Historical Med buPROPion XL (Wellbutrin XL) 300 MG 24 hr tablet Take 300 mg by mouth every morning., Historical Med pantoprazole (ProtoNix) 40 MG EC tablet TAKE ONE TABLET BY MOUTH EVERY MORNING BEFORE BREAKFAST, Starting Tue07/10/2021, Until 07/10/2022 at 2359, Normal ALLERGIES Tramadol and Codeine FAMILY HISTORY Family History Problem Relation Name Age of Onset Heart disease Mother High Blood Pressure Mother Cancer Mother Cancer Father SOCIAL HISTORY Social History Socioeconomic History Marital status: Tobacco Use Smoking status: Former Packs/day: 0.50 Types: Cigarettes Smokeless tobacco: Former Quit date: 06/24/2021 Vaping Use Vaping Use: Never used Substance and Sexual Activity Alcohol use: Yes Drug use: Not Currently SCREENINGS PHYSICAL EXAM ED Triage Vitals [11/27/222013] Temp Heart Rate Resp BP 36.7 C (98.1 F) (!) 120 22 (!) 136/99 SpO2 Temp Source Heart Rate Source Patient Position 98 % Oral Monitor Sitting BP Location FiO2 (%) Right arm -- CONSTITUTIONAL: AOx4, no apparent distress, appears stated age HEAD: normocephalic, atraumatic EYES: PERRL, EOMI ENT: moist mucous membranes, uvula midline NECK: supple, symmetric BACK: symmetric LUNGS: Diminished breath sounds CARDIOVASCULAR: Tachycardic rate and rhythm, no murmurs, rubs or gallops ABDOMEN: soft, non-tender, non-distended with normal active bowel sounds : deferred NEUROLOGIC: MAEx4, no focal sensory or motor deficits MUSCULOSKELETAL: no clubbing, cyanosis or edema SKIN: no exposed rash DIAGNOSTIC RESULTS Procedures/EKG: EKG was reviewed by myself. Physician EKG interpretation can be found in [facility] RADIOLOGY (Per Emergency Physician): Interpretation per the Radiologist below, if available at the time of this note: XR chest 1 view Final Result 1. Stable examination. No acute findings. Report Dictated on Electronically Signed By: Hamlet Yoder MD Electronically Signed Date/Time: 11/27/2022 8:56 PM EDT ED BEDSIDE ULTRASOUND: Performed by ED Physician - none LABS: Labs Reviewed - No data to display All other labs were within normal range or not returned as of this dictation. EMERGENCY DEPARTMENT COURSE and DIFFERENTIAL DIAGNOSIS/MDM: Vitals: Vitals: 11/27/22201311/27/22210611/27/222111 BP: (!) 136/99 (!) 127/99 BP Location: Right arm Right arm Patient Position: Sitting Sitting Pulse: (!) 120 (!) 114 109 Resp: 22 20 Temp: 36.7 C (98.1 F) TempSrc: Oral SpO2: 98% 96% Weight: 77.1 kg (170 lb) EMERGENCY DEPARTMENT COURSE and DIFFERENTIAL DIAGNOSIS/MDM: Vitals: Vitals: 11/27/22201311/27/22210611/27/222111 BP: (!) 136/99 (!) 127/99 BP Location: Right arm Right arm Patient Position: Sitting Sitting Pulse: (!) 120 (!) 114 109 Resp: 22 20 Temp: 36.7 C (98.1 F) TempSrc: Oral SpO2: 98% 96% Weight: 77.1 kg (170 lb) The patient presented with a chief complaint of aspiration. Patient did cough up the apparent food which was stuck in his airway as he was arriving to the emergency room. The differential diagnosis associated with this patient's presentation includes retained foreign body, aspiration, pneumonia. Our workup consisted of ordering/reviewing chest x-ray which was clear. Patient currently saturating well on his 4 L nasal cannula. Heart rate is improving. Given breathing treatment for his emphysema. On reevaluation patient is relaxing on phone, feels significantly improved and comfortable plan to discharge home with close outpatient follow-up.. Diagnoses as of 11/27/222218 Choking, initial encounter Diagnostic tests considered but not performed: External records reviewed: Diagnostics interpreted by me: Xray(s) no acute findings Discussions with other clinicians: Chronic conditions impacting care: Emphysema Social determinants of health affecting care: ED Medications managed: Medications ipratropium-albuterol (Duo-Neb) 0.5-2.5 mg/3 mL nebulizer solution 3 mL (3 mL Nebulization Given 11/27/222023) CONSULTS: None PROCEDURES: Unless otherwise noted below, none Procedures Patients symptoms are consistent with sepsis, severe sepsis, or septic shock (If yes use .sepsiscoremeasure): FINAL IMPRESSION 1. Choking, initial encounter DISPOSITION/PLAN dc PATIENT REFERRED TO: Antwan Buchanan [address] [facility] [address] Schedule an appointment as soon as possible for a visit DISCHARGE MEDICATIONS: Discharge Medication List as of 11/27/2022 9:08 PM (Comment: Please note this report has been produced using speech recognition software and may contain errors related to that system including errors in grammar, punctuation, and spelling, as well as words and phrases that may be inappropriate. If there are any questions or concerns please feel freeto contact the dictating provider for clarification.) Tony Figueroa DO (electronically signed) Emergency Medicine Provider Tony Figueroa DO 11/27/222220 [facility] [id number] Progress note Author Cuca Flood [facility] November 13, 2022 12:45pm Note Date/Time November 13, 2022 11:34am [facility] Medical Records Department [address] [place] [address] Progress Note - Hospitalist 11/13/22 1134 MR#: [id number] Acct: [id number] Name: LUIS STEELE II Rep #:[id number] : 1970 52 From: Cuca Flood MD PCP: Dr. Antwan Buchanan, DO Status:AD M IN Location: [place] [address] Reason for Visit Reason for Visit: Diagnoses Anemia, unspecified (11/12/22) Gastrointestinal hemorrhage, unspecified (11/12/22) Subjective Subjective Patient feeling much better than he had, so far tolerating diet, breathing improving Objective Data Objective Data Vital Signs: Vital Signs Temp Pulse Resp BP Pulse Ox O2 Del Method O2 Flow Rate 97.8 F 101 H 18 126/92 H 96 Nasal Cannula 2 11/13/22 09:36 11/13/22 11:15 11/13/22 11:15 11/13/22 09:36 11/13/22 09:40 11/13/22 09:40 11/13/22 09:40 Oxygen Flow Rate (L/min) 2 Oxygen Delivery Method Nasal Cannula Weight: 77.9 kg Body Mass Index (BMI) 24.6 Intake & Output: Intake and Output for Last 24 Hours 11/11/22 11/12/22 11/13/22 23:59 23:59 23:59 Intake Total 110 / 1010 1431.67 / 1431.67 Output Total 240 / 240 Balance 110 / 770 1191.67 / 1191.67 Lab / Micro Data 11/13/22 06:22 11/13/22 06:22 Labs: Laboratory Results - last 24 hr 11/12/22 15:25: WBC 10.8, RBC 3.00 L, Hgb 5.8 L*, Hct 21.7 L, MCV 72.3 L, MCH 19.3 L, MCHC 26.7 L, RDW Std Deviation 45.9 H, RDW Coeff of Maya 17.4 H, Plt Count 507 H, MPV 9.4, Immature Gran % (Auto) 0.600, Neut % (Auto) 76.4 H, Lymph % (Auto) 16.4 L, Fergus % (Auto) 5.5, Eos % (Auto) 0.8, Baso % (Auto) 0.3, Absolute Neuts (auto) 8.3 H, Absolute Lymphs (auto) 1.77, Nucleated RBC % 0.3, Diff Path Review July, Sodium 139, Potassium 3.9, Chloride 105, Carbon Dioxide 28.0, Anion Gap 6, BUN 20 H, Creatinine 1.10, Est GFR (MDRD) Af Amer 90,Est GFR (MDRD) Non-Af 75, BUN/Creatinine Ratio 18.2, Glucose 113 H, Calcium 8.7,Total Bilirubin 0.20, AST 8 L, ALT 23, Alkaline Phosphatase 78, Troponin I High Sens 4, Total Protein 7.2, Albumin 3.6, Globulin 3.6, Albumin/Globulin Ratio 1.0 11/12/22 17:10: Blood Type B POSITIVE, Antibody Screen NEGATIVE, Crossmatch See Detail 11/13/22 06:22: WBC 11.7 H, RBC 3.78 L, Hgb 8.3 L, Hct 29.1 L, MCV 77.0 L D, MCH22.0 L, MCHC 28.5 L D, RDW Std Deviation 56.6 H, RDW Coeff of Maya 20.6 H, Plt Count 527 H, MPV 9.9, Immature Gran % (Auto) 0.700, Neut % (Auto) 85.7 H, Lymph % (Auto) 8.6 L, Fergus % (Auto) 4.9, Eos % (Auto) 0.0, Baso % (Auto) 0.1, AbsoluteNeuts (auto) 10.1 H, Absolute Lymphs (auto) 1.01, Nucleated RBC % 0.3, Differential Comment SCANNED, Hypochromasia 1+, Anisocytosis 2+, Microcytosis 1+, Macrocytosis 1+, Retic Count 1.27, Immature Retic Fraction 26.00 H, Retic Hgb Equivalent 16.6 L, PT 14.3, INR 1.1, APTT 29.1, Sodium 139, Potassium 4.2, Chloride 104, Carbon Dioxide 27.0, Anion Gap 8, BUN 18, Creatinine 0.98, Estim Creat Clear Calc 91.04, Est GFR (MDRD) Af Amer 103, Est GFR (MDRD) Non-Af 85, BUN/Creatinine Ratio 18.4, Glucose 115 H, Calcium 8.7, Iron 13 L, TIBC 583 H, Iron Saturation 2.2 L, Ferritin 3 L, Folate 6.50 Radiography Diagnostic Testing: Radiology Impression Chest/Abdomen/Pelvis CTA 11/12/22 15:35 IMPRESSION: 1. Severe emphysematous changes and bronchiectasis. 2. No CT evidence for aortic dissection. 3. Colonic diverticulosis without diverticulitis. 4. Hepatic steatosis. Electronically Signed: No Qiu MD at 16:35 EDT Reading Location ID and State: [address] [place] [address] , Service support , Physical Exam Narrative General: Alert, oriented, no apparent distress HEENT: Atraumatic, normocephalic Eyes: Anicteric, normal conjunctiva, extraocular movements grossly intact Neck: Supple Respiratory: Scattered wheezing, slight increased respiratory effort Cardiovascular: Regular rate and rhythm GI: Soft, nontender, nondistended Extremities: No edema Musculoskeletal: Moving all extremities Neuro: No overt focal neurological deficits Skin: No rashes appreciated Psych: Cooperative Assessment & Plan Assessment/Plan (1) Acute GI bleeding: (2) Acute anemia: PLAN: Plan 1. Acute blood loss anemia secondary to GI bleed ? This is likely the main transit driver of his shortness of breath especially in the setting of his emphysema and 4 L of oxygen requirement ? We will transfuse 2 units already ordered in the ER ? We will prep him for colonoscopy and EGD tomorrow, appreciate GIs assistance ? Continue with IV Protonix twice daily -11/13: Status post 2 units packed red blood cells. With erythematous duodenopathy and small hiatal hernia, colonoscopy with nonbleeding internal hemorrhoids, otherwise unremarkable. GI following, patient given IV iron and iron studies and celiac profile ordered. Iron studies consistent with iron deficiency anemia with ferritin of 3 and an iron of 13, patient already receivedIV iron this a.m. Given relatively benign EGD and colonoscopy would likely needcapsule endoscopy on outpatient basis. Patient has diet now, thus far tolerating 2. COPD with history of tracheostomy and work-up for lung transplant ? He is on his baseline oxygen requirements ? We will continue with his home breathing treatments ? At this time do not see an indication for steroids -11/13: Improving with improvement in anemia, continue his home as needed medications 3. Anxiety/depression ? Stable ? Continue with Zoloft #Tobacco use -Advise cessation -Patient accepted nicotine replacement, patch ordered DVT: SCDs 36 minutes was spent on direct patient care, including documentation as well as chart review and collaboration with colleagues Charges/Coding Visit Charges Inpatient E&M: 37710 Subs Hosp L2 11/13/22 1245 <Electronically signed by Cuca Flood MD> Cosigner Signature (if applicable): CC: ~ Signed [facility] Work Phone: [phone] 368-159409-02-2023 Consult note Author Adán Friend [facility] November 13, 2022 9:06am Note Date/Time November 13, 2022 9:01am [facility] Medical Records Department [address] [place] [address] Consultation - GI 11/12/22 2300 MR#: [id number] Acct: [id number] Name: LUIS STEELE II Rep #:[id number] : 1970 52 From: Adán Berg DO PCP: Dr. Antwan Buchanan, DO Status:[facility] IN Location: [place] [id number] HPI Consult Data Date of Consult: 11/12/22 HPI Narrative Reason for Consultation: Anemia HPI Narrative: LUIS STEELE, is a 52 M who presents complaint of shortness of breath and blood in the stool. He is on home oxygen for COPD and wears 4L. Patient states he has a history of diverticulitis. For the last 2 to 3 days he has had a little bit of red blood in his stool. His stool has not been black. He has not been moving his bowels more. He sometimes gets cramping across his lower abdomen. But he sometimes gets this anyway. He thinks he is having diverticulitis because of the stress of his life. His last colonoscopy was 5 or 6 years ago. He has no history of intra-abdominal surgeries ever. He is still eating and drinking well. No urinary symptoms. Patient also complains of dyspnea. He has advanced COPD and is actually being evaluated for possible double lung transplant. He is on 4 L of oxygen at baseline. The last about 3 days he has had some slight increased difficulty breathing. He attributes this to the stress of having his diverticulitis. He is coughing but no change in sputum. No hemoptysis. The reason he came in today is he was on his way to see his doctor for an x-ray for his abdomen and hehad to walk further than usual which caused more dyspnea which prompted his friend called EMS. He feels back to about baseline now. Of note, EMS gave bothDuoNeb and IV Solu-Medrol already so IV Solu-Medrol was not repeated here. In the ED was discovered to have an iron deficiency anemia. He said he had a history of anemia in the past which required iron therapy. He said he was diagnosed with this after undergoing temporary renal replacement therapy due to acute kidney injury after developing severe pneumonia back in 2014. He does nottake iron at this time. [facility] Medical History Alcohol abuse Anxiety COPD (chronic obstructive pulmonary disease) Depression Exposure to COVID-19 virus History of bacterial pneumonia History of tobacco use Smoker TIA (transient ischemic attack) Ulcer Home Medications sertraline 100 mg tablet 100 mg PO DAILY mood 11/19/14 [History Last Taken 10/19/22 10:00] pantoprazole 40 mg tablet,delayed release 40 mg PO BID stomache 03/20/21 [History Last Taken 10/19/22 10:00] trazodone 50 mg tablet 100 - 150 mg PO PRN sleep 03/20/21 [History Last Taken 03/18/21] ipratropium 0.5 mg-albuterol 3 mg (2.5 mg base)/3 mL nebulization soln 3 ml inhalation Q4H PRN breathing 08/15/21 [History Last Taken 10/19/22 10:00] albuterol sulfate 90 mcg/actuation aerosol inhaler (Ventolin HFA) 2 puff inhalation Q4H PRN PRN Wheezing ##1 02/10/22 [Rx Last Taken 10/19/22 10:00] Allergy/AdvReac Type Severity Reaction Status Date / Time tramadol HCl [From [facility]] Allergy Swelling Verified 11/12/22 14:41 codeine AdvReac PT UNSURE Verified 11/12/22 14:41 OF REACTION Family History (Updated 11/12/22 @ 18:[address] Kelton Gutierrez MD) Other Cancer Diabetes Heart disease Hypertension Surgical History History of chest tube placement History of herniorrhaphy History of tonsillectomy History of tracheostomy Social History household members: none Smoking Status: Current some day smoker tobacco type: cigarettes and smokeless tobacco substance use type: does not use ROS Constitutional Constitutional: Reports fatigue; Denies chills, fever(s) or malaise Eyes Eyes: Denies blurry vision ENT HEENT: Denies headache(s) or nasal discharge Cardiovascular Cardiovascular: Denies chest pain, dyspnea on exertion or syncope Respiratory/Chest Respiratory/Chest: Reports shortness of breath at rest and shortness of breath with exertion; Denies cough Gastrointestinal Gastrointestinal: Reports hematochezia; Denies constipation, diarrhea, nausea orvomiting Genitourinary Genitourinary: Denies dysuria Neurologic Neurologic: Denies focal weakness, numbness or tremor(s) Psychiatric Psychiatric: Denies anxiety or depression Physical Exam Narrative General: Alert, Oriented x3, Cooperative, No apparent distress HEENT: Atraumatic, PERRLA, EOMI, Normocephalic, poor dentition, pale evidence ofa previous trach Oral: Moist Mucosa Neck: Supple, No JVD Lungs: Diminished, Normal air movement, No rhonchi, No wheeze, No rales Cardiovascular: Regular rate, Regular Rhythm, Normal S1, Normal S2, No murmurs Abdomen: Soft, Non Tender, Non-Distended, No Hepato-splenomegaly Extremities: No edema, Capillary Refill Less than 3 Seconds Skin: No rashes, No breakdown Musculoskeletal: No Tenderness to Palpation of Joints or Extremities Neurological: Cranial nerves II-XII grossly intact, Motor Exam 5/5 strength throughout, Sensory exam intact to light touch and pain Psych/Mental Status: Normal Affect, Appropriate Lab / Micro Data 11/13/22 06:22 11/13/22 06:22 Labs: Laboratory Results - last 24 hr 11/12/22 15:25: WBC 10.8, RBC 3.00 L, Hgb 5.8 L*, Hct 21.7 L, MCV 72.3 L, MCH 19.3 L, MCHC 26.7 L, RDW Std Deviation 45.9 H, RDW Coeff of Maya 17.4 H, Plt Count 507 H, MPV 9.4, Immature Gran % (Auto) 0.600, Neut % (Auto) 76.4 H, Lymph % (Auto) 16.4 L, Fergus % (Auto) 5.5, Eos % (Auto) 0.8, Baso % (Auto) 0.3, Absolute Neuts (auto) 8.3 H, Absolute Lymphs (auto) 1.77, Nucleated RBC % 0.3, Diff Path Review July, Sodium 139, Potassium 3.9, Chloride 105, Carbon Dioxide 28.0, Anion Gap 6, BUN 20 H, Creatinine 1.10, Est GFR (MDRD) Af Amer 90,Est GFR (MDRD) Non-Af 75, BUN/Creatinine Ratio 18.2, Glucose 113 H, Calcium 8.7,Total Bilirubin 0.20, AST 8 L, ALT 23, Alkaline Phosphatase 78, Troponin I High Sens 4, Total Protein 7.2, Albumin 3.6, Globulin 3.6, Albumin/Globulin Ratio 1.0 11/12/22 17:10: Blood Type B POSITIVE, Antibody Screen NEGATIVE, Crossmatch See Detail 11/13/22 06:22: WBC 11.7 H, RBC 3.78 L, Hgb 8.3 L, Hct 29.1 L, MCV 77.0 L D, MCH22.0 L, MCHC 28.5 L D, RDW Std Deviation 56.6 H, RDW Coeff of Maya 20.6 H, Plt Count 527 H, MPV 9.9, Immature Gran % (Auto) 0.700, Neut % (Auto) 85.7 H, Lymph % (Auto) 8.6 L, Fergus % (Auto) 4.9, Eos % (Auto) 0.0, Baso % (Auto) 0.1, AbsoluteNeuts (auto) 10.1 H, Absolute Lymphs (auto) 1.01, Nucleated RBC % 0.3, Differential Comment SCANNED, Hypochromasia 1+, Anisocytosis 2+, Microcytosis 1+, Macrocytosis 1+, PT 14.3, INR 1.1, APTT 29.1, Sodium 139, Potassium 4.2, Chloride 104, Carbon Dioxide 27.0, Anion Gap 8, BUN 18, Creatinine 0.98, Estim Creat Clear Calc 91.04, Est GFR (MDRD) Af Amer 103, Est GFR (MDRD) Non-Af 85, BUN/Creatinine Ratio 18.4, Glucose 115 H, Calcium 8.7 Radiology Impression Chest/Abdomen/Pelvis CTA 11/12/22 15:35 IMPRESSION: 1. Severe emphysematous changes and bronchiectasis. 2. No CT evidence for aortic dissection. 3. Colonic diverticulosis without diverticulitis. 4. Hepatic steatosis. Electronically Signed: No Qiu MD at 16:35 EDT Reading Location ID and State: [address] [place] [address] , Service support , Assessment & Plan Assessment/Plan (1) Acute GI bleeding: (2) Acute anemia: PLAN: Plan Acute on chronic blood loss anemia secondary to GI bleed ? This is likely the main transit driver of his shortness of breath especially in the setting of his emphysema and 4 L of oxygen requirement ? We will transfuse 2 units already ordered in the ER ? We will prep him for colonoscopy and EGD tomorrow ? Continue with IV Protonix twice daily - Check iron studies - Transfused 250 mg of IV iron - Check celiac profile - If EGD and colonoscopy are negative then he will need a capsule endoscopy Charges/Coding Visit Charges Inpatient E&M: 02204 Init Hosp L3 11/13/22 0906 <Electronically signed by Adán Berg DO> Cosigner Signature (if applicable): CC: Dr. Antwan Buchanan DO; Dr. Kelton Gutierrez MD~ Signed [facility] Work Phone: 1(488) 519-448109-02-2023 Procedure [facility] 11-13-2022 Procedure [facility]09-02-2023 Procedure note [facility]09-02-2023 Procedure [facility] 11-12-2022 History and physical note Author Kelton Gutierrez [facility] November 12, 2022 7:06pm Note Date/Time November 12, 2022 6:09pm [facility] Medical Records Department [address] [place] [address] H&P Exam - Hospitalist 11/12/22 1801 MR#: [id number] Acct: [id number] Name: LUIS STEELE II Rep #:[id number] : 1970 52 From: Kelton pino MD PCP: Dr. Antwan Buchanan, DO Status:AD M IN Location: [facility] [id number] HPI - General General Date of Admission: 11/12/22 HPI Narrative LUIS STEELE, is a 52 M who presents to the foot with increased shortness of breath. He is normally on 4 L nasal cannula which is what he is on now, but he felt more short of breath. His increased shortness of breath start about 3 daysago and has been slowly getting worse. He is also noticed some bright red bloodper rectum but he does not notice anything mixed in with the stool and he has not noticed black stools. He had called his PCP because of the back pain that he was having which she does have intermittently at baseline and they told him that it was likely a flareup of his diverticulitis. In the ER he is found to have a hemoglobin of 5.8, in the beginning of October it was 9 he does have a little bit of a slow bleed and his indices are also indicative of anemia due to blood loss. CTA of the chest abdomen pelvis was unremarkable, he does have significant bronchiectasis and emphysema but no other findings in imaging. No diverticulitis. [facility] Medical History Alcohol abuse Anxiety COPD (chronic obstructive pulmonary disease) Depression Exposure to COVID-19 virus History of bacterial pneumonia History of tobacco use Smoker TIA (transient ischemic attack) Ulcer Home Medications sertraline 100 mg tablet 100 mg PO DAILY mood 11/19/14 [History Last Taken 10/19/22 10:00] pantoprazole 40 mg tablet,delayed release 40 mg PO BID stomache 03/20/21 [History Last Taken 10/19/22 10:00] trazodone 50 mg tablet 100 - 150 mg PO PRN sleep 03/20/21 [History Last Taken 03/18/21] ipratropium 0.5 mg-albuterol 3 mg (2.5 mg base)/3 mL nebulization soln 3 ml inhalation Q4H PRN breathing 08/15/21 [History Last Taken 10/19/22 10:00] albuterol sulfate 90 mcg/actuation aerosol inhaler (Ventolin HFA) 2 puff inhalation Q4H PRN PRN Wheezing ##1 02/10/22 [Rx Last Taken 10/19/22 10:00] Allergy/AdvReac Type Severity Reaction Status Date / Time tramadol HCl [From [facility]] Allergy Swelling Verified 11/12/22 14:41 codeine AdvReac PT UNSURE Verified 11/12/22 14:41 OF REACTION Family History (Updated 11/12/22 @ 18:[address] Kelton Gutierrez MD) Other Cancer Diabetes Heart disease Hypertension Surgical History History of chest tube placement History of herniorrhaphy History of tonsillectomy History of tracheostomy Social History household members: none Smoking Status: Current some day smoker tobacco type: cigarettes and smokeless tobacco substance use type: does not use ROS Constitutional Constitutional: Reports fatigue; Denies chills, fever(s) or malaise Eyes Eyes: Denies blurry vision ENT HEENT: Denies headache(s) or nasal discharge Cardiovascular Cardiovascular: Denies chest pain, dyspnea on exertion or syncope Respiratory/Chest Respiratory/Chest: Reports shortness of breath at rest and shortness of breath with exertion; Denies cough Gastrointestinal Gastrointestinal: Reports hematochezia; Denies constipation, diarrhea, nausea orvomiting Genitourinary Genitourinary: Denies dysuria Neurologic Neurologic: Denies focal weakness, numbness or tremor(s) Psychiatric Psychiatric: Denies anxiety or depression Vital Signs Vital Signs Vital Signs: 11/12/22 14:41 11/12/22 15:02 11/12/22 15:04 Temperature 99 F Temperature Source Temporal Pulse Rate 109 H 111 H Respiratory Rate 26 H 18 Respiratory Effort Short of Breath Labored Respiratory Depth Normal Respiratory Pattern Tachypnea Blood Pressure 123/87 H 133/82 H Blood Pressure Mean 99 99 Pulse Ox 99 97 Oxygen Delivery Method Nasal Cannula Nasal Cannula Nasal Cannula Oxygen Flow Rate (L/min) 4 4 4 11/12/22 15:18 11/12/22 16:11 11/12/22 17:24 Temperature 97.8 F Temperature Source Temporal Pulse Rate 100 99 99 Respiratory Rate 18 19 H 18 Respiratory Effort Respiratory Depth Respiratory Pattern Normal Blood Pressure 140/85 H 134/88 H Blood Pressure Mean 103 103 Pulse Ox 98 97 Oxygen Delivery Method Nasal Cannula Nasal Cannula Oxygen Flow Rate (L/min) 4 11/12/22 17:24 Temperature Temperature Source Pulse Rate 99 Respiratory Rate Respiratory Effort Respiratory Depth Respiratory Pattern Blood Pressure 134/88 H Blood Pressure Mean 103 Pulse Ox Oxygen Delivery Method Oxygen Flow Rate (L/min) Physical Exam Narrative General: Alert, Oriented x3, Cooperative, No apparent distress HEENT: Atraumatic, PERRLA, EOMI, Normocephalic, poor dentition, pale evidence ofa previous trach Oral: Moist Mucosa Neck: Supple, No JVD Lungs: Diminished, Normal air movement, No rhonchi, No wheeze, No rales Cardiovascular: Regular rate, Regular Rhythm, Normal S1, Normal S2, No murmurs Abdomen: Soft, Non Tender, Non-Distended, No Hepato-splenomegaly Extremities: No edema, Capillary Refill Less than 3 Seconds Skin: No rashes, No breakdown Musculoskeletal: No Tenderness to Palpation of Joints or Extremities Neurological: Cranial nerves II-XII grossly intact, Motor Exam 5/5 strength throughout, Sensory exam intact to light touch and pain Psych/Mental Status: Normal Affect, Appropriate Results Lab / Micro Data 11/12/22 15:25 11/12/22 15:25 Labs: Laboratory Results - last 24 hr 11/12/22 15:25: WBC 10.8, RBC 3.00 L, Hgb 5.8 L*, Hct 21.7 L, MCV 72.3 L, MCH 19.3 L, MCHC 26.7 L, RDW Std Deviation 45.9 H, RDW Coeff of Maya 17.4 H, Plt Count 507 H, MPV 9.4, Immature Gran % (Auto) 0.600, Neut % (Auto) 76.4 H, Lymph % (Auto) 16.4 L, Fergus % (Auto) 5.5, Eos % (Auto) 0.8, Baso % (Auto) 0.3, Absolute Neuts (auto) 8.3 H, Absolute Lymphs (auto) 1.77, Nucleated RBC % 0.3, Diff Path Review July, Sodium 139, Potassium 3.9, Chloride 105, Carbon Dioxide 28.0, Anion Gap 6, BUN 20 H, Creatinine 1.10, Est GFR (MDRD) Af Amer 90,Est GFR (MDRD) Non-Af 75, BUN/Creatinine Ratio 18.2, Glucose 113 H, Calcium 8.7,Total Bilirubin 0.20, AST 8 L, ALT 23, Alkaline Phosphatase 78, Troponin I High Sens 4, Total Protein 7.2, Albumin 3.6, Globulin 3.6, Albumin/Globulin Ratio 1.0 11/12/22 17:10: Crossmatch See Detail Radiology Impression Chest/Abdomen/Pelvis CTA 11/12/22 15:35 IMPRESSION: 1. Severe emphysematous changes and bronchiectasis. 2. No CT evidence for aortic dissection. 3. Colonic diverticulosis without diverticulitis. 4. Hepatic steatosis. Electronically Signed: No Qiu MD at 16:35 EDT Reading Location ID and State: [facility] / [place] , Service support , Assessment & Plan Assessment/Plan (1) Acute GI bleeding: (2) Acute anemia: PLAN: Plan 1. Acute blood loss anemia secondary to GI bleed ? This is likely the main transit driver of his shortness of breath especially in the setting of his emphysema and 4 L of oxygen requirement ? We will transfuse 2 units already ordered in the ER ? We will prep him for colonoscopy and EGD tomorrow, appreciate GIs assistance ? Continue with IV Protonix twice daily 2. COPD with history of tracheostomy and work-up for lung transplant ? He is on his baseline oxygen requirements ? We will continue with his home breathing treatments ? At this time do not see an indication for steroids 3. Anxiety/depression ? Stable ? Continue with Zoloft DVT: SCDs 75 minutes was spent on direct patient care, including documentation as well as chart review and collaboration with colleagues Charges/Coding Visit Charges Inpatient E&M: 95163 Init Hosp L3 11/12/22 1906 <Electronically signed by Kelton Gutierrez MD> Cosigner Signature (if applicable): CC: Dr. Antwan Buchanan DO; Dr. Kelton Gutierrez MD~ Signed [facility] Work Phone: 1(607) 738-211209-01-2023 Discharge summary Author Kody Jj [facility] November 12, 2022 6:04pm Note Date/Time November 12, 2022 3:15pm [facility] Medical Records Department [place] [address] Emergency Department Summary 11/12/22 MR#: [id number] Acct: [id number] Name: LUIS STEELE II Rep #:[id number] : 1970 52 From: Kody Jj MD PCP: Dr. Antwan Buchanan, DO Status:RE G ER Location: ED HPI History of Present Illness Chief Complaint: Shortness of Breath Informant: patient Narrative Narrative: Patient presents with multiple concerns. Patient states he has a history of diverticulitis. For the last 2 to 3 days he has had a little bit of red blood in his stool. His stool has not been black. He has not been moving his bowels more. He sometimes gets cramping across his lower abdomen. But he sometimes gets this anyway. He thinks he is having diverticulitis because of the stress of his life. His last colonoscopy was 5 or6 years ago. He has no history of intra-abdominal surgeries ever. He is still eating and drinking well. No urinary symptoms. Patient also complains of dyspnea. He has advanced COPD and is actually being evaluated for possible double lung transplant. He is on 4 L of oxygen at baseline. He has not increased this. But the last about 3 days he has had someslight increased difficulty breathing. He attributes this to the stress of having his diverticulitis. He is coughing but no change in sputum. No hemoptysis. The reason he came in today is he was on his way to see his doctor for an x-ray for his abdomen and he had to walk further than usual which caused more dyspnea which prompted his friend called EMS. He feels back to about baseline now. Of note, EMS gave both DuoNeb and IV Solu- Medrol already so IV Solu-Medrol was not repeated here. Patient also has some left-sided chest pain. This is mostly with coughing. He states this is typical for him with his COPD exacerbation though. Patient also has lower back pain that was mention. But this is chronic and completely unchanged from his baseline. There are no new features numbness tingling or weakness or radiculopathy. Patient states he is no longer smoking. He also rarely drinks and thinks his last drink was probably 7 months ago. [facility] Medical History Alcohol abuse Anxiety COPD (chronic obstructive pulmonary disease) Depression Exposure to COVID-19 virus History of bacterial pneumonia History of tobacco use Smoker TIA (transient ischemic attack) Ulcer Home Medications sertraline 100 mg tablet 100 mg PO DAILY mood 11/19/14 [History Last Taken 10/19/22 10:00] pantoprazole 40 mg tablet,delayed release 40 mg PO BID stomache 03/20/21 [History Last Taken 10/19/22 10:00] trazodone 50 mg tablet 100 - 150 mg PO PRN sleep 03/20/21 [History Last Taken 03/18/21] ipratropium 0.5 mg-albuterol 3 mg (2.5 mg base)/3 mL nebulization soln 3 ml inhalation Q4H PRN breathing 08/15/21 [History Last Taken 10/19/22 10:00] albuterol sulfate 90 mcg/actuation aerosol inhaler (Ventolin HFA) 2 puff inhalation Q4H PRN PRN Wheezing ##1 02/10/22 [Rx Last Taken 10/19/22 10:00] Allergy/AdvReac Type Severity Reaction Status Date / Time tramadol HCl [From [facility]] Allergy Swelling Verified 11/12/22 14:41 codeine AdvReac PT UNSURE Verified 11/12/22 14:41 OF REACTION Family History Other Cancer Surgical History History of chest tube placement History of herniorrhaphy History of tonsillectomy History of tracheostomy Social History household members: none Smoking Status: Current some day smoker tobacco type: cigarettes and smokeless tobacco substance use type: does not use ROS ROS ED ROS Narrative A complete review of systems was performed and is negative except as documented in the history of present illness. Some specific details below. Constitutional: No recent fevers or chills. No malaise. EYE: No discharge, visual complaints, or pain. ENT: No difficulty swallowing. No swelling. No pain. No reflux symptoms. CV: See history of present illness. His left chest pain is typical for his COPD. It is not pleuritic. Respiratory: See history of present illness. GI: See history of present illness. Patient is concerned with some red blood inhis stool because his last blood counts evidently showed anemia that he is aboutto have worked up. : No frequency dysuria or hematuria. Musculoskeletal: No recent trauma. No new pains. No swelling. See also history of present illness Skin: No rash. Nondiaphoretic. Neuro: No weakness or numbness. Endocrine: No polyuria or polydipsia. EXAM Physical Exam Narrative Exam Narrative: CONSTITUTIONAL: Patient is nontoxic in appearance. The patient looks comfortable. Work of breathing looks normal. Despite this patient's multiple concerns complaints and significant medical illness, he is awake alert appropriate carries on a normal conversation and is very nontoxic as I walk intothe room. HEENT: No notable trauma. Mucous membranes moist. No sinus tenderness. No indication of pain with swallowing. EYES: No conjunctival injection. No proptosis. Mild pallor noted NECK:No JVD. No stridor. CARDIOVASCULAR: Tachycardic rate. Regular rhythm. No notable murmur. No JVD. RESPIRATORY: No respiratory distress. Breathing is unlabored. Saturations are normal at 99% on patient's 4 L showing no hypoxia. With easy breathing, I am not getting wheezes. But when I have him take a deep breath he does have expiratory wheezing. No pain with a deep breath and no pain with palpation of his chest GASTROINTESTINAL: Not distended. Bowel sounds are normal. No tenderness. No guarding. No rebound. No palpable mass. No bruit is heard. Although he gets cramping below his abdomen, he has no tenderness there. GENITOURINARY: No tenderness over the bladder. No CVA tenderness. MUSCULOSKELETAL: Atraumatic. No peripheral edema. No cord. No tenderness along the deep venous system. No asymmetry. No distended veins. NEUROLOGICAL: Patient is alert and appropriate. No focal deficit noted. SKIN: No noted rashes. No diaphoresis. Mild pallor PSYCHIATRIC: Patient is calm. Mood is appropriate. Const Vital Signs: 11/12/22 14:41 11/12/22 15:02 11/12/22 15:04 Temperature 99 F Temperature Source Temporal Pulse Rate 109 H 111 H Respiratory Rate 26 H 18 Respiratory Effort Short of Breath Labored Respiratory Depth Normal Respiratory Pattern Tachypnea Blood Pressure 123/87 H 133/82 H Blood Pressure Mean 99 99 Pulse Ox 99 97 Oxygen Delivery Method Nasal Cannula Nasal Cannula Nasal Cannula Oxygen Flow Rate (L/min) 4 4 4 11/12/22 15:18 11/12/22 16:11 11/12/22 17:24 Temperature 97.8 F Temperature Source Temporal Pulse Rate 100 99 99 Respiratory Rate 18 19 H 18 Respiratory Effort Respiratory Depth Respiratory Pattern Normal Blood Pressure 140/85 H 134/88 H Blood Pressure Mean 103 103 Pulse Ox 98 97 Oxygen Delivery Method Nasal Cannula Nasal Cannula Oxygen Flow Rate (L/min) 4 11/12/22 17:24 Temperature Temperature Source Pulse Rate 99 Respiratory Rate Respiratory Effort Respiratory Depth Respiratory Pattern Blood Pressure 134/88 H Blood Pressure Mean 103 Pulse Ox Oxygen Delivery Method Oxygen Flow Rate (L/min) MDM MDM MDM Narrative Medical decision making narrative: Patient CBC shows normal white count. Platelets are slightly high. His hemoglobin is even lower than last time. Patient had a hemoglobin in the upper nines about 3 or so weeks ago. He has had a 4 g drop since then he had had 2 or3 g drop since last year. He has low MCV MCH and MCHC indicating that some of this does have chronic nature although there is an acute component recently. Heis not having bloody stools here. I have put in for a type and cross for transfusion because with his significant dyspnea and worsening hemoglobin he will do better with a higher hemoglobin. Patient's electrolytes show no marked abnormalities. Minimal elevation of glucose at 113. His last steroid use was about 2 or 3 weeks ago. Liver function test are normal. My independent interpretation of this patient's CT scan of his chest and abdomenshows no sign of hemorrhage. I do not see PE or pneumonia or pneumothorax. I do not see signs of diverticulitis although there certainly is diverticulosis. Final reading shows similar findings. Patient has had no gross GI bleeding here. We are trying to get a Hemoccult device from central lab as I do not have any available. With his dyspnea, anemia and chronic illness I think he does need to come in thehospital. Although he had some wheezing its only with forced expiration. He may have a mild COPD exacerbation. But a lot of his dyspnea was when he exertedhimself to go to an appointment. I think a lot of this may also be related to his significant anemia. He will be brought in the hospital. I discussed case with the hospitalist. He discussed the case directly with gastroenterology who is available. Lab Data Attestation: I reviewed the patient's lab results. Labs: Laboratory Results - last 24 hr 11/12/22 11/12/22 15:25 17:10 WBC 10.8 RBC 3.00 L Hgb 5.8 L* Hct 21.7 L MCV 72.3 L MCH 19.3 L MCHC 26.7 L RDW Std Deviation 45.9 H RDW Coeff of Maya 17.4 H Plt Count 507 H MPV 9.4 Immature Gran % (Auto) 0.600 Neut % (Auto) 76.4 H Lymph % (Auto) 16.4 L Fergus % (Auto) 5.5 Eos % (Auto) 0.8 Baso % (Auto) 0.3 Absolute Neuts (auto) 8.3 H Absolute Lymphs (auto) 1.77 Nucleated RBC % 0.3 Diff Path Review May foll Sodium 139 Potassium 3.9 Chloride 105 Carbon Dioxide 28.0 Anion Gap 6 BUN 20 H Creatinine 1.10 Est GFR (MDRD) Af Amer 90 Est GFR (MDRD) Non-Af 75 BUN/Creatinine Ratio 18.2 Glucose 113 H Calcium 8.7 Total Bilirubin 0.20 AST 8 L ALT 23 Alkaline Phosphatase 78 Troponin I High Sens 4 Total Protein 7.2 Albumin 3.6 Globulin 3.6 Albumin/Globulin Ratio 1.0 Crossmatch See Detail Radiography Diagnostic Testing: Clinical Impression(s) from Imaging Studies Chest/Abdomen/Pelvis CTA 11/12/22 15:35 IMPRESSION: 1. Severe emphysematous changes and bronchiectasis. 2. No CT evidence for aortic dissection. 3. Colonic diverticulosis without diverticulitis. 4. Hepatic steatosis. Electronically Signed: No Qiu MD at 16:35 EDT , EKG Initial EKG: Comments: My independent interpretation the patient's EKG done for tachycardia dyspnea and chest pain shows sinus rhythm with tachycardic rate at 116. Mild irregular baseline but no acute ST elevation or depression. AL interval, QRS duration and QTc are normal. EKG is consistent overall with sinus tachycardia Discharge Plan Triage Chief Complaint: Shortness of Breath ED Provider: Kody Jj Dx/Rx/DC Orders Clinical Impression: Acute anemia, COPD exacerbation, Acute GI bleeding Prescriptions: No Action sertraline 100 MG tablet 100 mg PO DAILY Patient Comments: MENTAL HEALTH trazodone 50 mg tablet 100 - 150 mg PO PRN Patient Comments: take 1 to 3 tablets by mouth at bedtime pantoprazole 40 mg tablet,delayed release (DR/EC) 40 mg PO BID Patient Comments: take 1 tablet by mouth twice a day ipratropium-albuterol 0.5 mg-3 mg(2.5 mg base)/3 mL Solution For Nebulization 3 ml INHALATION Q4H PRN (Reason: breathing) albuterol sulfate [Ventolin HFA] 90 mcg/actuation HFA aerosol inhaler 2 puff inhalation Q4H PRN PRN (Reason: Wheezing) Qty: 1 0RF Primary Care Provider: Antwan Buchanan Referrals: Antwan Buchanan DO [Primary Care Provider] - Disposition Disposition: Acute Care Hospital [facility] What to do if you have Problems For any increased pain, shortness of breath, bleeding, nausea or vomiting, chestpain, or any unexpected problems, contact your Primary Care Provider. Call [facility] ([phone]) or report to the closest Emergency Room. Call 911 if necessary. 11/12/22 180 <Electronically signed by Kody Jj MD> Cosigner Signature (if applicable): CC: Dr. Antwan Buchanan DO ~ Signed [facility] Work Phone: [phone] Miscellaneous Notes* Telephone Encounter - Cat Sanchez LPN - 11/11/2022 2:10 PM EDT Patient returned call and went over notes below from Dr Buchanan with understanding. Scheduled apptfor 11/12/2022 at [facility] at 240 pm. * Telephone Encounter - Radha Agudelo - 11/11/2022 9:13 AM EDT Left message for patient to return call Radha Agudelo * Telephone Encounter - Antwan Buchanan DO - 11/10/2022 10:45 PM EDT Patient needs to get lumbar xray and CT chest completed as previously ordered. We can't call in medication for stomach without him being seen by a provider in office- needs appt Antwan Buchanan DO * Telephone Encounter - Radha Agudelo - 11/10/2022 9:20 AM EDT Please see patient mychart message- Luis Angel Chantel Contreras Famp My Chart Rx Pool (supporting Antwan Buchanan DO) 22 hours ago(10:48 AM) DESEAN Lyman I had to cancel the appointments we had for my tests & what not for all the stuff I needdone due to my dad going on hospice but I need to get these done. Also I need the one so I can get my inhaler refilled. But also I am not doing good I am having a diverticulitis flair that's pretty bad (blood when I use the bathroom, back pain, light headed and what not) tryin not to go to the ER is there anything you proscribed to help get me through this. Thank you & have a good day. documented in this encounterKet[facility]06-26-[facility]23 History of Present illness Narrative* Antwan Buchanan DO - 09/06/2022 5:18 PM EDT CC: Luis Steele II is a 51 year old male who presents to the office for follow up HPI: Patient is here for follow up Has severe COPD and severe bronchiectasis on recent PFTs / spirometry as well as need for oxygen atabout 4 liters. He has significant symptoms all through day and mostly need for oxygen at night when sleeping. Last CT chest and PFTs 07/2021. Has been recommended by Pulm to have follow up with PCP before being considered for lung transplant if able. He is not smoking at all and hasn't for long time. He would like to consider lung transplant so he can be more physically active again such as bike riding or swimming with grandkids Mood is doing well. Has support from his grown son and neighbors. + low back pain for 2 weeks, no known injuries, muscles feel tight and pulled. Has tried ibuprofen and aleve and tylenol and heating pad and ice without relief. No fevers or chills or urinary symptoms. PAST MEDICAL HISTORY Diagnosis Date Blood type B+ Calculus of kidney chronic--had had stent placed COPD, severe (HCC) 12/2013 Diverticulosis Gastric ulcer 02/03/[address] [facility] Hyperlipemia 08/2013 Low HDL (under 40) 08/2013 Lung nodule < 6cm on CT 05/[address] 05/2022 MRSA pneumonia (HCC) 2014 hospitalized, intubated, pressors Pancreatitis TIA (transient ischemic attack) 1994 Pt. reports Tobacco abuse PAST SURGICAL HISTORY Procedure Laterality Date CENTRAL LINE 06/14/2014 COLONOSCOPY FLX DX W/COLLJ SPEC WHEN PFRMD 2012 EGD 02/02/2018 [facility]. Hp-, mild chronic gastritis PAST SURGICAL HISTORY OF kidney stone stent PICC LINE INSERT/CONSULT 07/03/2014 RPR 1ST INGUN HRNA AGE 5 YRS/> REDUCIBLE 04/17/14 left direct TONSILLECTOMY PRIMARY/SECONDARY <AGE 12 Current Outpatient Medications Medication Sig predniSONE (DELTASONE) 10 mg tablet Take 4 tabs daily for 3 days, then 2 tabs daily for 3 days, then 1 tab daily for 3 days with food. cyclobenzaprine (FLEXERIL) 10 mg tablet Take 1 tablet by mouth three times daily as needed for muscle spasm. fluticasone-salmeterol HFA (ADVAIR HFA) 230-21 mcg/actuation inhaler Inhale 2 Puffs as instructed twice daily. pantoprazole DR (PROTONIX) 40 mg tablet Take 1 tablet by mouth twice daily. sertraline (ZOLOFT) 100 mg tablet Take 1 tablet by mouth once daily. ipratropium-albuterol (DUONEB) 0.5 mg-3 mg(2.5 mg base)/3 mL nebu Inhale 3 mL as instructed every 4hours as needed for wheezing/shortness of breath. nicotine (NICODERM) 21 mg/24 hr Apply 1 Patch as directed every 24 hours. Remove old patch at bedtime, new patch in the morning each day buPROPion XL (WELLBUTRIN XL) 300 mg 24 hr tablet Take 1 tablet by mouth once daily. traZODone (DESYREL) 50 mg tablet Take 1-3 tablets by mouth daily at bedtime. aspirin, enteric coated (ASPIRIN, ENTERIC COATED) 81 mg EC tablet Take 81 mg by mouth once daily. Current Facility-Administered Medications Medication Dose Route Frequency perflutren lipid microspheres 1.3 mL in NaCl (PF) 0.9% 10 mL injection (DEFINITY) INTRAVENOUS DIRECTED PRN sodium chloride 0.9 % (flush) 10 mL (BD POSIFLUSH) 10 mL INTRAVENOUS DIRECTED PRN ALLERGIES Allergen Reactions Codeine Other: See Comments Pt can not remember effects happened when was baby Ultram [Tramadol Hc* Swelling Social History Tobacco Use Smoking status: Former Packs/day: 2.00 Years: 30.00 Pack years: 60.00 Types: Cigarettes Quit date: 2021 Years since quittin.4 Smokeless tobacco: Current Types: Snuff Tobacco comments: a few cigs a day. 2 ppd in past Substance Use Topics Alcohol use: Yes Alcohol/week: 1.7 standard drinks Comment: states rarely for alcohol Drug use: No ROS: See HPI PE: BP 154/84 Pulse 92 Temp (Src) 97.8 (Left Tympanic) Resp 24 Wt 161 lb (73.0kg) Gen: A&OX3, NAD, non-toxic appearing HEENT: PERRLA, EOMs intact b/l, nares without drainage, pharynx without erythema, exudate, lesions,or drainage. Uvula midline. Poor dentition- many broken or missing or decayed Neck: No LAD, no thyromegaly, no meningismus. CV: RRR, no murmur Lungs: severely diminished breath sounds diffusely with intermittent wheeze and rhonchi at bases, conversational dyspnea is mild but present. No edema legs, normal peripheral pulses Abd: thin, NT, ND, normal BS, no masses Skin: No rashes, lesions, or wounds on exposed skin. ASSESSMENT/PLAN: 1. Stage 4 very severe COPD by GOLD classification (HCC) - ICD9: 496, ICD10: J44.9 (primary diagnosis) Need for ECG, ECHO, CT chest and PFTs/DLCO repeated before follow up with Pulm to consider if he lizbeth transplant candidate for lung, labs as ordered as well. He is not smoking - CT CHEST WO IVCON - SPIROMETRY - BASELINE AND POST DILATOR - LUNG DIFFUSION CAPACITY (DLCO) - ECG COMPLETE - ECHO - PERFLUTREN LIPID MICROSPHERES 1.1 MG/ML INJECTION IN NS 10 ML - SODIUM CHLORIDE 0.9 % (FLUSH) INJECTION SYRINGE - COMP METABOLIC PANEL - CBC + DIFF - TSH BLD - HEP REMOTE PANEL BL - HIV 1 2 COMBO(AG/AB),WITH REFLEX TO DIFFERENTIATION 2. Centrilobular emphysema (HCC) - ICD9: 492.8, ICD10: J43.2 Need for ECG, ECHO, CT chest and PFTs/DLCO repeated before follow up with Pulm to consider if he lizbeth transplant candidate for lung, labs as ordered as well. He is not smoking - CT CHEST WO IVCON - SPIROMETRY - BASELINE AND POST DILATOR - LUNG DIFFUSION CAPACITY (DLCO) - ECG COMPLETE - ECHO - PERFLUTREN LIPID MICROSPHERES 1.1 MG/ML INJECTION IN NS 10 ML - SODIUM CHLORIDE 0.9 % (FLUSH) INJECTION SYRINGE - COMP METABOLIC PANEL - CBC + DIFF - TSH BLD - HEP REMOTE PANEL BL - HIV 1 2 COMBO(AG/AB),WITH REFLEX TO DIFFERENTIATION 3. Abnormal CT scan, lung - ICD9: 793.19, ICD10: R91.8 Need for ECG, ECHO, CT chest and PFTs/DLCO repeated before follow up with Pulm to consider if he lizbeth transplant candidate for lung, labs as ordered as well. He is not smoking - CT CHEST WO IVCON - SPIROMETRY - BASELINE AND POST DILATOR - LUNG DIFFUSION CAPACITY (DLCO) - ECG COMPLETE - ECHO - PERFLUTREN LIPID MICROSPHERES 1.1 MG/ML INJECTION IN NS 10 ML - SODIUM CHLORIDE 0.9 % (FLUSH) INJECTION SYRINGE - COMP METABOLIC PANEL - CBC + DIFF - TSH BLD 4. SOB (shortness of breath) - ICD9: 786.05, ICD10: R06.02 Need for ECG, ECHO, CT chest and PFTs/DLCO repeated before follow up with Pulm to consider if he lizbeth transplant candidate for lung, labs as ordered as well. He is not smoking - CT CHEST WO IVCON - SPIROMETRY - BASELINE AND POST DILATOR - LUNG DIFFUSION CAPACITY (DLCO) - ECG COMPLETE - ECHO - PERFLUTREN LIPID MICROSPHERES 1.1 MG/ML INJECTION IN NS 10 ML - SODIUM CHLORIDE 0.9 % (FLUSH) INJECTION SYRINGE - COMP METABOLIC PANEL - CBC + DIFF - TSH BLD 5. Acute bilateral low back pain with bilateral sciatica - ICD9: 724.2, 724.3, ICD10: M54.42, M54.41 Acute 2 weeks of low back pain - Ice for localized tenderness - Warm moist heat for 20 min three times a day - Prednisone burst- see orders - Muscle relaxant- see orders - Xrays- see orders - XR LUMBAR GENERAL 3V AP/LAT/L5-S1 - PREDNISONE 10 MG TABLET - CYCLOBENZAPRINE 10 MG TABLET 6. Screening for prostate cancer - ICD9: V76.44, ICD10: Z12.5 - Counseled on healthy diet and regular exercise - PSA/PROSTSPECAG SCRN Antwan Buchanan DO Return if no improvement. Follow up with Antwan Buchanan DO. To ER if develops chest pain, shortness of breath Discussed risks, benefits, alternatives, and potential side effects of medications. Patient/Guardian expressed understanding and agreed with the plan. See patient instructions. Antwan Buchanan DO [address] [place] [address] documented in this encounterK[facility]01-19-2023 Miscellaneous Notes* Telephone Encounter - Gabbie Garcia LPN - 04/01/2022 2:39 PM EST Patient has been identified by name and date of : Yes, Provider Dr. Buchanan Date 04/01/22 Time2:39 pm Patient phones for refill(s): Requested Prescriptions Pending Prescriptions Disp Refills sertraline (ZOLOFT) 100 mg tablet 90 tablet 1 Sig: Take 1 tablet by mouth once daily. Date of last office visit in primary care: 05/29/21 Last 2 Encounter Wt Readings: Date: Wt: 07/16/2021 62.6 kg (138 lb) 07/16/2021 62.6 kg (138 lb) Previous labs/tests for medication: Not applicable Thank you. Gabbie Garcia LPN documented in this encounterKettering [facility]01-19-2023 Miscellaneous Notes* Telephone Encounter - Gabbie Janelle Garcia LPN - 04/01/2022 2:35 PM EST Patient has been identified by name and date of : Yes, Provider Dr. Buchanan Date 04/01/22 Time2:38 pm Patient phones for refill(s): Requested Prescriptions Pending Prescriptions Disp Refills pantoprazole DR (PROTONIX) 40 mg tablet 180 tablet 3 Sig: Take 1 tablet by mouth twice daily. Date of last office visit in primary care: 05.29.21 Last 2 Encounter Wt Readings: Date: Wt: 07/16/2021 62.6 kg (138 lb) 07/16/2021 62.6 kg (138 lb) Previous labs/tests for medication: Not applicable Thank you. Gabbie Garcia LPN documented in this encounterKettering [facility]06-28-2022 History of Present illness Narrative* Rula Robles - 09/08/2021 9:37 AM EDT 3 rd attempt unable to leave a message phone number no longer active. Please update. Trying to schedule consult for colonoscopy with General Surgery. If patient calls back and declines please document. My chart message sent to update phone number. * Rula Robles - 09/03/2021 11:17 AM EDT 2 nd attempt unable to leave a message phone number no longer active. Please update. Trying to schedule consult for colonoscopy with General Surgery. If patient calls back and declines please document. My chart message sent to update phone number. * Rula Robles - 08/28/2021 1:44 PM EDT 1st attempt unable to reach patient please verify phone number in regards to following: Patient duefor colonoscopy, Patient is not approved for open access due to pulmonary history Please schedule consult Lei Murphy. My chart message sent * Lei Murphy - 08/27/2021 12:39 PM EDT Patient due for colonoscopy, Patient is not approved for open access due to pulmonary history Please schedule consult Lei Murphy documented in this encounterKettering [facility]05-21-2022 Hospital Discharge instructions Patient Education 08/01/2021 12:11:40 COPD Flare COPD Flare You have had a flare-up of your COPD. COPD (chronic obstructive pulmonary disease) is a common lung disease. It causes your airways to get irritated and narrower. This makes it harder for you to breathe. Emphysema and chronic bronchitis are both types of COPD. This is a long-term (chronic) condition. This means you always have it. Sometimes it gets worse. When this happens, it is called a flare-up. Symptoms of COPD People with COPD may have symptoms most of the time. In a flare-up, your symptoms get worse. These symptoms may mean you are having a flare-up: Shortness of breath, shallow or rapid breathing, or wheezing that gets worse Lung infection Cough that gets worse More mucus, thicker mucus or mucus of a different color Tiredness, less energy, or trouble doing your normal activities Fever Chest tightness Your symptoms don t get better even when you use your normal medicines, inhalers, and nebulizer Trouble talking You feel confused Causes of flare-ups Unfortunately, a flare-up can happen even if you did everything right. And even if you followed your healthcare provider s instructions. Some causes of flare- ups are: Smoking or secondhand smoke Colds, the flu, or respiratory infections Air pollution Sudden change in the weather Dust, irritating chemicals, or strong fumes Not taking your medicines as prescribed Home care Here are some things you can do at home to treat a flare-up: Try not to panic. This makes it harder to breathe, and keeps you from doing the right things. Don t smoke or be around others who are smoking. Try to drink more fluids than normal during a flare-up, unless your healthcare provider has told you not to because of heart and kidney problems. More fluids can help loosen the mucus. Use your inhalers and nebulizer, if you have one, as you have been told to. If you were given antibiotics, take them until they are used up or your provider tells you to stop.It s important to finish the antibiotics, even though you feel better. This will make sure the infection has cleared. If you were given prednisone or another steroid, finish it even if you feel better. Preventing a flare-up Flare-ups happen. But the best way to treat one is to prevent it before it starts. Here are some pointers: Don t smoke or be around others who are smoking. Take your medicines as discussed with your healthcare provider. Talk with your provider about getting a flu shot every year. Also find out if you need a pneumonia shot. If there is a weather advisory warning to stay indoors, try to stay inside when possible. Try to eat healthy, exercise, and get plenty of sleep. Try to stay away from things that normally set you off. These include dust, chemical fumes, hairsprays, or strong perfumes. Follow-up care Follow up with your healthcare provider, or as advised. If a culture was done, you will be told if your treatment needs to be changed. You can call as directed for the results. If X-rays were done, you will be told of any new findings that may affect your care. Call 911 Call 911 if any of these occur: You have trouble breathing You feel confused or it s hard to wake you up You faint or lose consciousness You have a rapid heart rate You have new pain in your chest, arm, shoulder, neck, or upper back When to seek medical advice Call your healthcare provider right away if any of these occur: Wheezing or shortness of breath gets worse You need to use your inhalers more often than normal without relief Fever of 100.4 F (38 C) or higher, or as directed by your healthcare provider Coughing up lots of dark-colored or bloody mucus (sputum) Chest pain with each breath You don't start to get better within 24 hours Swelling of your ankles gets worse Dizziness or weakness [id number] [employer]. [address] [place] [address], [place] [address]. All rights reserved. This information is not intended as a substitute for professional medical care. Always follow yourhealthcare professional's instructions. Follow Up Care 08/01/2021 11:09:33 With:ANTWAN BUCHANAN DO Address: [address] [place] [id number]- When:2-4 days [facility] 05-19-2022 Miscellaneous Notes* Telephone Encounter - Lesa Ramey LPN - 07/30/2021 2:26 PM EDT Prior Auth required on Trelegy, this is why pharmacy did not receive. [facility] formulary also does not list Breztri. Spiriva and ICC/LABA agents preferred. Please advise. Lesa Ramey LPN documented in this encounterKettering Health Dayton05-12-2022 Note. MICRO - Microbiology PROCEDURE: Blood Culture (bacterial) [*1] SOURCE: Blood BODY SITE: COLLECTED DATE/TIME: 07/17/2021 18:39 EDT RECEIVED DATE/TIME: 07/18/2021 18:05 EDT START DATE/TIME: 07/18/2021 18:05 EDT FREE TEXT SOURCE: FINAL REPORTS Final Report [] Verified Date/Time/Personnel: 07/23/2021 18:59 EDT Blood Culture: No Growth at 5 days. PRELIMINARY REPORTS Preliminary Report [] Verified Date/Time/Personnel: 07/18/2021 18:59 EDT Culture has been received in lab and is no growth to date. Routine cultures are held for 5 days. Performing Locations *1: This test was performed at: [facility], [address] [place] [address], [id number]- , [facility] ([place])07-23-2021 Note. MICRO - Microbiology PROCEDURE: Blood Culture (bacterial) [*1] SOURCE: Blood BODY SITE: COLLECTED DATE/TIME: 07/17/2021 18:39 EDT RECEIVED DATE/TIME: 07/18/2021 18:05 EDT START DATE/TIME: 07/18/2021 18:05 EDT FREE TEXT SOURCE: FINAL REPORTS Final Report [] Verified Date/Time/Personnel: 07/23/2021 18:59 EDT Blood Culture: No Growth at 5 days. PRELIMINARY REPORTS Preliminary Report [] Verified Date/Time/Personnel: 07/18/2021 18:59 EDT Culture has been received in lab and is no growth to date. Routine cultures are held for 5 days. Performing Locations *1: This test was performed at: [facility], [address] [place] [address], [facility] , [facility] ([place])07-17-2021 Hospital Discharge instructions Patient Education 07/17/2021 21:07:42 Dehydration Dehydration The human body is comprised largely of water. If you lose more fluids than you take in, you can become dehydrated. This means there are not enough fluids in your body for it to function right. Mild dehydration can cause weakness, confusion, or muscle cramps. In extreme cases, it can lead to brain damage and even . That's why prompt treatment is crucial. Risk factors Anyone can become dehydrated. But infants, children, and older adults are at greatest risk. You aremost likely to lose fluids with severe vomiting, diarrhea, or a fever. Exercising or working hard especially in hot weather can also cause excess fluid loss. What to do Drinking liquids is the best way to prevent dehydration. Water is best, but juice or frozen pops can also help. For adults, don't use liquids that contain caffeine or alcohol to rehydrate. Your doctor may suggest electrolyte solutions for sick infants and young children. When to go to the emergency room (ER) Go to an ER right away for these symptoms: Adults Very dark urine and little urine output Dizziness, weakness, confusion, fainting Children Sunken eyes Little or no urine output (for infants, no wet diaper in 8 hours) Very dark urine Skin that doesn't bounce back quickly when pinched Crying without tears Lethargy, decreased activity, or increased sleepiness What to expect in the emergency room Your blood pressure, temperature, and heart rate will be checked. You may have blood or urine tests. The main treatment for dehydration is fluids. You may be given these to drink. Or, you may receivethem through a vein in your arm. You also may be treated for diarrhea, vomiting, or a high fever. [id number] [employer]. [address] [place] [address]. All rights reserved. This information is not intended as a substitute for professional medical care. Always follow yourhealthcare professional's instructions. Follow Up Care 07/17/2021 17:48:40 With:ANTWAN BUCHANAN Address: [address] [place] [phone]- When:3-5 days [facility] 05-06-2022 Evaluation + Plan note Diagnostic Tests Pending * Blood Culture (bacterial) 07/17/21 * Blood Culture (bacterial) 07/17/21 [facility] 05-06-2022 Miscellaneous Notes* Telephone Encounter - Fabi Hughes LPN - 07/17/2021 9:34 AM EDT joseph-- 05/29/21 next appt. 08/31/21 Last refill-- 05/29/21 30 patches with 3 refills Last labs completed 07/11/21 alpha 1 07/16/21 documented in this encounterKettering Health [facility]05-05-2022 History of Present illness Narrative* Nayana Ricks RRT - 07/16/2021 4:17 PM EDT PULM FUNCTION SMARTBLOCK: Provider: Manuel Block MD Assisting Tech: Nayana Ricks RRT Spirometry w/BD: 1 DLCO: 1 LV - Box: 1 System: [id number] documented in this encounterKettering Health Dayton05-05-2022 History of Present illness Narrative* Manuel Block MD - 07/16/2021 3:15 PM EDT Images from the original note were not included. . [facility]piratory [place] Note Patient name: Luis Steele II PCP: Antwan Buchanan DO Referring Physician: Same Consultation requested by Dr. Buchanan for an opinion regarding COPD. My final recommendations willbe communicated back to the requesting physician by way of shared Medical record or letter to requesting physician via US mail. CC: COPD HPI: Luis Steele II 50 year old male recent former smoker (started age 12, up to 2 packs a day) with PMH significant for severe COPD (last PFTs 2013 with FEV1 44%), chronic oxygen use for the past 7 years, TIA, history of pancreatitis, PUD being sent for evaluation of COPD. Recent history notablefor COVID pneumonia in March 2021, treated with remdesivir, dexamethasone and recently discharged from hospital 07/12/21 for COPD exacerbation and dysphagia. Past history notable for BECKI, sepsis, CCPM, necrotizing MRSA pneumonia requiring trach in 2014. He has been on oxygen since that time. He hashad multiple hospital admissions for COPD exacerbations. He has had progressive dyspnea on exertionand has been very limited in his ADLs. In fact, he arrived in wheelchair today. He has chronic cough with occasional sputum production that may be clear to yellow in color. Persistent wheezing. No chest pain. Most recent CT of his chest from May shows severe emphysema, bilateral lower lobe bronchiectasis and pulmonary nodularity. Current inhaled regimen consists of Symbicort and Spiriva. He states he felt best when he was on Advair but this is not covered by his insurance. He has been using his mother's nebulizer machine and her medication. He needs a new nebulizer machine and a prescription for the liquid. Updated pulmonary function test today shows very severe obstruction with FEV1 of 25% predicted, severe air trapping and hyperinflation and low diffusing capacity. He would be a candidate for lung transplantation but he is not certain he wants to pursue this route. DME: [facility] DATA: [facility] PFT, 01/09/2014: Forced expiratory spirometry and flow volume loop are recorded. The spirogram is of good quality, and does not plateau. The flow volume loop reveals an obstructive ventilatory impairment. There is no upper airway obstruction. Forced vital capacity (FVC) is mildly reduced, 4.13L, 77% predicted. FEV1 is severely reduced, 1.74L, 44% predicted. FEV1/FVC ratio is severely reduced, 0.42. Inhaled bronchodilator administration is followed by normalization of the vital capacity and significant improvement in expiratory flow. IMPRESSION: Severe obstructive ventilatory impairment. Significant improvement following inhaled bronchodilator administration. PFT today: Pulmonary function test shows very severe obstruction, no improvement with bronchodilators, air trapping and hyperinflation and low diffusing capacity Labs: Component Ref Range & Units 4 d ago WBC 3.6 - 10.7 10*3/uL 13.0 High RBC 4.40 - 5.90 10*6/uL 4.06 Low Hemoglobin 13.0 - 18.0 g/dL 11.8 Low Hematocrit 40.0 - 52.0 % 36.0 Low MCV 80.0 - 98.0 fL 88.6 MCH 26.0 - 34.0 pg 29.1 MCHC 32.0 - 36.0 % 32.8 RDW 11.5 - 14.5 % 14.0 Platelets 140 - 440 10*3/uL 357 MPV 7.4 - 12.4 fL 7.4 Granulocytes % 40.0 - 80.0 % 70.6 Lymphocyte % 20.0 - 40.0 % 15.6 Low Monocytes 2.0 - 10.0 % 11.4 High Eosinophils 1.0 - 6.0 % 1.8 Basophils 0.0 - 2.0 % 0.6 Absolute Neut # 1.8 - 7.0 10*3/uL 9.2 High Absolute Lymph # 1.0 - 4.3 10*3/uL 2.0 Absolute Fergus # 0.0 - 0.8 10*3/uL 1.5 High Absolute Eos # 0.0 - 0.5 10*3/uL 0.2 Absolute Baso # 0.0 - 0.2 10*3/uL 0.1 Component Ref Range & Units 4 d ago Sodium 135 - 145 mmol/L 137 Potassium 3.5 - 5.1 mmol/L 4.4 Chloride 98 - 107 mmol/L 100 CO2 22 - 30 mmol/L 33 High Anion Gap 3 - 13 mmol/L 4 Glucose 70 - 100 mg/dL 119 High BUN 7 - 17 mg/dL 18 High CREATININE 0.52 - 1.25 mg/dL 0.9 eGFR >60 mL/min >90.0 EGFR IF NonAfrican Citizen Of [place] >60 mL/min >90.0 Chemistry shows elevated bicarbonate level consistent with chronic hypercapnia Imaging / Diagnostic Studies: DATE OF EXAM: Jun 10 2021 2:27PM [facility] 0541 - CT CHEST WO IVCON / PROCEDURE REASON: multiple diagnoses EXAMINATION: CHEST CT WITHOUT CONTRAST CLINICAL HISTORY: COPD, severe (HCC) Centrilobular emphysema (HCC) Comparison: September 08, 2014 RESULT: Limitations: None. Lines, tubes, and devices: None. Lung parenchyma and airways: Postsurgical change involving the right lung. Centrilobular emphysema.Bronchiectasis and scarring throughout the upper and lower lobes. Moderate mucus impaction within the lower lobes. Scarring within the lung bases. Area of nodularity versus scarring involving the peripheral aspect of the right lower lobe (series 3 image 173) which measures 4.7 mm in transverse. No infiltrate or pneumothorax. Pleural space: No pleural effusion. No pleural thickening. Lower neck, lymph nodes, and mediastinum: The imaged thyroid gland is normal. No lymphadenopathy inthe supraclavicular, axillary, mediastinal, or hilar regions. Heart, pericardium, and thoracic vessels: The thoracic aorta and main pulmonary artery are normal in caliber. The cardiac chambers are normal in size. No coronary artery atherosclerotic calcifications are noted, although the study is not optimized for coronary assessment. No pericardial effusion orthickening. Bones and soft tissues: No destructive bone lesion. Chest wall is unremarkable. Upper abdomen: No abnormality in the imaged upper abdomen. MPRESSION: Centrilobular emphysema. Bronchiectasis in the upper and lower lobes with moderate mucous impaction within the lower lobe bronchi. Pulmonary nodularity I personally reviewed the images as well as with the patient and agree with the above assessment PAST MEDICAL HISTORY Diagnosis Date Blood type B+ Calculus of kidney chronic--had had stent placed COPD, severe (HCC) 12/2013 Diverticulosis Gastric ulcer 02/03/2018 per endoscopy doron Vargasman Hyperlipemia 08/2013 Low HDL (under 40) 08/2013 Lung nodule < 6cm on CT 05/[address] 05/2022 MRSA pneumonia (HCC) 2014 hospitalized, intubated, pressors Pancreatitis TIA (transient ischemic attack) 1994 Pt. reports Tobacco abuse ALLERGIES Allergen Reactions Codeine Other: See Comments Pt can not remember effects happened when was baby Ultram [Tramadol Hc* Swelling buPROPion XL (WELLBUTRIN XL) 300 mg 24 hr tablet Take 1 tablet by mouth once daily. nicotine (NICODERM) 21 mg/24 hr Apply 1 Patch as directed every 24 hours. Remove old patch at bedtime, new patch in the morning each day sertraline (ZOLOFT) 100 mg tablet Take 1 tablet by mouth once daily. pantoprazole DR (PROTONIX) 40 mg tablet Take 1 tablet by mouth twice daily. traZODone (DESYREL) 50 mg tablet Take 1-3 tablets by mouth daily at bedtime. aspirin, enteric coated (ASPIRIN, ENTERIC COATED) 81 mg EC tablet Take 81 mg by mouth once daily. wkcwahxvjdv-klsxpcnzi-vzpuaqyd (TRELEGY ELLIPTA) 200-62.5-25 mcg inhalation powder Inhale 1 Puff asinstructed once daily. ipratropium-albuterol (DUONEB) 0.5 mg-3 mg(2.5 mg base)/3 mL nebu Inhale 3 mL as instructed every 4hours as needed for wheezing/shortness of breath. Social History Tobacco Use Smoking status: Former Smoker Packs/day: 2.00 Years: 30.00 Pack years: 60.00 Types: Cigarettes Quit date: 2021 Years since quittin.3 Smokeless tobacco: Current User Types: Snuff Tobacco comment: a few cigs a day. 2 ppd in past Substance Use Topics Alcohol use: Yes Alcohol/week: 1.7 standard drinks Comment: states rarely for alcohol Drug use: No Pets: None FAMILY HISTORY Problem Relation Age of Onset Allergies Mother Heart Mother NH Stroke Mother Liver Cancer Mother Lung Cancer Mother Cancer Father Prostate Cancer Father Stroke Father Heart Father Allergies Sister Cervical Cancer Sister Allergies Brother PAST SURGICAL HISTORY Procedure Laterality Date CENTRAL LINE 06/14/2014 COLONOSCOPY FLX DX W/COLLJ SPEC WHEN PFRMD 2013 EGD 02/02/2018 Estefania Otoole. Hp-, mild chronic gastritis PAST SURGICAL HISTORY OF kidney stone stent PICC LINE INSERT/CONSULT 07/03/2014 RPR 1ST INGUN HRNA AGE 5 YRS/> REDUCIBLE 04/17/14 left direct TONSILLECTOMY PRIMARY/SECONDARY <AGE 12 PMH, Social history, family history and surgical history reviewed and updated in EMR REVIEW OF SYSTEMS: CONSTITUTIONAL: No fevers, chills, nightsweats, unintended weight loss HEENT: Denies nasal congestion/sinus symptoms, problematic allergy problems. EYES: No diplopia or blurry vision. CARDIOVASCULAR: No chest pain,palpitations, orthopnea, PND, edema. Severe dyspnea on exertion PULM: See HPI GI: No dysphagia/odynophagia, problematic reflux, constipation, diarrhea, changes in stool habits, hematochezia, melena. : No urinary complaints, including dysuria, history of renal stones NEURO: No new balance problems, peripheral weakness/paresthesias or numbness of concern. MUSC-SKEL: No joint pain, swelling, or erythema. PSY: No concerns regarding depression, anxiety INTEGUMENTARY: No new skin changes or rashes PHYSICAL EXAMINATION: BP 147/88 Pulse 119 Wt 138 lb (62.6kg) SpO2 96% General Appearance: Thin male no acute distress Skin: Skin color, texture, turgor normal, no suspicious rashes or lesions. Head: Normocephalic, no masses, lesions, tenderness or abnormalities. Eyes: Sclera, conjunctiva normal Oropharynx: Very poor dentition, no oral lesions or thrush Neck: No JVD, no masses, no bruits Back: Increased AP diameter, hyperresonant to percussion Lungs: Not labored, diminished breath sounds, few expiratory wheezes on the left, no crackles Heart: Regular rate and rhythm, no murmurs gallops Extremities: No edema or clubbing Musculoskeletal: No joint swelling, deformity, or tenderness. Neurologic: Alert and oriented, no focal findings Lymph Nodes: No cervical lymphadenopathy and No supraclavicular lymphadenopathy. Assessment/Plan: 1. Very severe COPD, GOLD stage 4 -Continue triple inhaler therapy. Changed to Trelegy Ellipta 200 mcg -Fax order for nebulizer machine to his homecare company -Ordered DuoNeb to use as needed -Pulmonary rehab -Continue tobacco cessation -Continue oxygen 2. Emphysema, centrilobular -Due to young age, will check alpha-1 antitrypsin level but suspect this is purely related to his smoking history 3. Lung nodules -Follow-up CT 6 months 4. Bronchiectasis -Nebulized treatments, may need Acapella flutter device, Mucomyst etc. 5. Recent former cigarette smoker -Quit smoking 2 months ago with sequelae of severe COPD -Continued abstinence Manuel Block MD Respiratory [place] [facility] NoteHospitalist Discharge Summary Luis Steele : 1970 Admit date: 07/01/2021 Discharge date: 07/12/2021 Admitting Physician: Galdino Geiger MD Primary Care Physician: Antwan Buchanan Visit Status: Admission Code Status: Full Code Discharge Diagnoses: 1. Pseudomonas PNA 2. Dysphagia s/p EGD and bx 3. GERD 4. Pharyngocele 5. Chronic hypoxic respiratory failure: on 4L of oxgyen by nasal canula, which is his baseline 6. Vitamin B12 deficiency: 7. COPD: not in exacerbation 8. Unintentional weight loss Diagnosis Date ? Anxiety ? COPD (chronic obstructive pulmonary disease) (HCC) ? Diverticulitis ? Pancreatitis ? TIA (transient ischemic attack) Pt stated in and in 2014 Procedures: EGD and bx Hospital Course: See discharge diagnoses list above and medication adjustments below in med rec.The patient is discharged in improved and stable condition. Consults: IP CONSULT TO GI IP CONSULT TO DIETITIAN IP CONSULT TO GI Discharge Instructions: Diet: ADULT DIET; Regular ADULT ORAL NUTRITION SUPPLEMENT; Lunch, Dinner; Frozen Oral Supplement Activity: as tolerated Recommended Outpatient Tests: to follow up with ENT on outpatient basis Disposition: Patient discharged in stable condition to Home. Greater than 30 minutes spent discharging the patient and coming up with patient discharge plan. Vitals: BP 94/62 Pulse 77 Temp 96.6 ?F (35.9 ?C) (Temporal) Resp 18 Ht 5' 10.98 (1.803 m) Wt 130 lb (59 kg) SpO2 93% BMI 18.14 kg/m? Pulse Ox: SpO2 Av.2 % Min: 93 % Max: 98 % Supplemental O2: O2 Flow Rate (L/min): 1 L/min General appearance: No apparent distress, appears stated age and cooperative with exam HEENT: Normal cephalic, atraumatic without obvious deformity. Pupils equal, round, and reactive to light. Extra ocular muscles intact. Conjunctivae/corneas clear. Neck: Supple, with full range of motion. No jugular venous distention. Trachea midline. No lymphadenopathy. Respiratory: Normal respiratory effort. Clear to auscultation, bilaterally without Rales/Wheezes/Rhonchi. Cardiovascular: Regular rate and rhythm with normal S1/S2 without murmurs, rubs or gallops. Abdomen: Soft, non-tender, non-distended with normal bowel sounds. No rebound or guarding. Musculoskeletal: No clubbing, cyanosis or edema bilaterally. Full range of motion without deformity. Skin: Skin color, texture, turgor normal. No rashes or lesions. Neurologic: Neurovascularly intact without any focal sensory/motor deficits. Cranial nerves: II-XII intact, grossly non-focal. Discharge Medications: Medication List START taking these medications ciprofloxacin 500 MG tablet Commonly known as: CIPRO Take 1 tablet by mouth 2 times daily for 7 days CHANGE how you take these medications pantoprazole 40 MG tablet Commonly known as: PROTONIX Take 1 tablet by mouth every morning (before breakfast) What changed: ? medication strength ? how much to take ? when to take this sertraline 25 MG tablet Commonly known as: ZOLOFT Take 1 tablet by mouth daily What changed: how much to take traZODone 50 MG tablet Commonly known as: DESYREL Take 1 tablet by mouth nightly What changed: ? when to take this ? reasons to take this CONTINUE taking these medications guaiFENesin 600 MG extended release tablet Commonly known as: MUCINEX Take 1 tablet by mouth 2 times daily nicotine 21 MG/24HR Commonly known as: NICODERM CQ SYMBICORT IN tiotropium 18 MCG inhalation capsule Commonly known as: SPIRIVA Ventolin HFA 108 (90 Base) MCG/ACT inhaler Generic drug: albuterol sulfate HFA vitamin D 1.25 MG (97365 UT) Caps capsule Commonly known as: ERGOCALCIFEROL Take 1 capsule by mouth once a week Wellbutrin XL 300 MG extended release tablet Generic drug: buPROPion Where to Get Your Medications These medications were sent to [address] - [address] [facility] [phone] - F [phone] [place] [phone] ? ciprofloxacin 500 MG tablet These medications were sent to [place], [place] - [address] [place] [address] [place] - P [phone] - F [phone] [place] [id number] ? pantoprazole 40 MG tablet Recommended Follow-up: Antwan Buchanan [address] [facility] [place] [address] Schedule an appointment as soon as possible for a visit For hospital follow up Readmission Risk Risk of Unplanned Readmission: 18 Complexity of Follow up: [] Moderate Complexity: follow up within 7-14 calendar days (30147) [x] Severe Complexity: follow up within 7 calendar days (10042) Follow up Testing, Pending results or Referrals at Transitional Care Visit: [x] yes [] no Instructions to MA: Please call patient on day after discharge (must document patient contacted within 2 business days of discharge). Follow up (more content not included)...[facility]05-01-[facility]22 Hospital Discharge instructions* Discharge Instr - Activity* Keo Williamson DO - 07/12/2021 11:56 AM EDT As tolerated * Discharge Instr - Diet* Jessica Del Castillo RN - 07/12/2021 11:56 AM EDT Good nutrition is important when healing from an illness, injury, or surgery. Follow any nutrition recommendations given to you during your hospital stay. If you were given an oral nutrition supplement while in the hospital, continue to take this supplement at home. You can take it with meals, in-between meals, and/or before bedtime. These supplements can be purchased at most local grocery stores, pharmacies, and chain [employer]ores. If you have any questions about your diet or nutrition, call the hospital and ask for the dietitian. Healthy diet documented in this encounterSUMMA Work Phone: [phone] 461-410705-01-2022 History of Present illness Narrative* TRACI Courtney - 07/12/2021 10:19 AM EDT Facility/Department: [facility] TELE[facility] Dysphagia Treatment Note NAME: Luis Steele : 1970 Patient Diagnosis(es): Patient Active Problem List Diagnosis COVID-19 COPD with acute exacerbation (HCC) Severe malnutrition (HCC) Dysphagia Shortness of breath Gastroesophageal reflux disease with esophagitis Retained food in stomach Allergies: Allergies Allergen Reactions Codeine Tramadol Swelling Tongue swells Pain: No complaints of pain during treatment session. Current Diet Level: Pt currently tolerating regular and thin liquids to maximize nutritional and hydrational benefit. Compensatory Techniques []Chin tuck [x]Small bolus [x]Alternate bites/ sips []Prep-set swallow with liquids []No straws []Liquids by teaspoon only []Supraglottic Swallow []Liquid wash []Swallow x 2 with each bolus []Effortful Swallow []Throat clear or cough after each bite/sip [x]Position patient upright [x]Reflux precautions [x]Upright After Meal at least 30 minutes []Other S: Pt was alert, pleasant, and cooperative with all therapy tasks presented. O: GOALS ADDRESSED. Reviewed safe swallowing strategies, completed meal monitor to further ascertain safety and tolerance of po intake. A: Pt was able to tolerate regular foods with thin liquids with increased use of safe swallowing strategies noted independently this date. Pt was able to recall and perform breath support exercises and swallowing strengthening exercises independently. He has a written program of same to take home with him upon discharge. Pt demonstrates increased safety and tolerance of his current diet. No further speech therapy is warranted at this time. [x] Goal met [] Progressing as expected [] Progressing slower than expected [] Medical status inhibits participation [] Goals not addressed this session [] Goals revised this session [] Unable to show any progress towards functional goals [] Progress towards functional goal is gradual / fair P: Discharge pt from speech therapy services at this time. Should increased swallowing difficultiesbe noted, please re-consult speech therapy service. TRACI Courtney M.A.[facility], A Time in: 952 Time out: 1015 * Kari Cote MD - 07/11/2021 10:56 PM EDT [facility] Attending GI Progress Note SUBJECTIVE: Swallowing better, no symptoms today. HB controlled, tolerating po Medications Current Facility-Administered Medications Medication Dose Route Frequency Provider Last Rate Last Admin piperacillin-tazobactam (ZOSYN) 3375 mg in dextrose 50 mL IVPB extended infusion (premix) 3,375 mg IntraVENous Q8H Sharita Rich MD Stopped at 07/11/21 2253 ipratropium-albuterol (DUONEB) nebulizer solution 1 ampule 1 ampule Inhalation Q4H PRN Charles Patten MD predniSONE (DELTASONE) tablet 40 mg 40 mg Oral Lunch Charles Patten MD 40 mg at 07/11/21 1520 pantoprazole (PROTONIX) tablet 40 mg 40 mg Oral QAM AC Charles Patten MD 40 mg at 07/11/21 0834 ipratropium-albuterol (DUONEB) nebulizer solution 1 ampule 1 ampule Inhalation TID Galdino Geiger MD 1 ampule at 07/11/212 bpeoimixvo-zaqolytftmbdd-xzmpsdfl (FIORICET, ESGIC) per tablet 1 tablet 1 tablet Oral Q4H PRN Carla Cox MD 1 tablet at 07/11/21 1520 buPROPion (WELLBUTRIN XL) extended release tablet 300 mg 300 mg Oral QAM Carla Cox MD 300 mg at 07/11/21 0834 guaiFENesin (MUCINEX) extended release tablet 600 mg 600 mg Oral BID Carla Cox MD 600 mg at 07/11/212031 sertraline (ZOLOFT) tablet 50 mg 50 mg Oral Daily Carla Cox MD 50 mg at 07/11/21 0834 tiotropium (SPIRIVA) inhalation capsule 18 mcg 18 mcg Inhalation Daily Carla Cox MD 18 mcg at07/11/21 1001 traZODone (DESYREL) tablet 50 mg 50 mg Oral Nightly PRN Carla Cox MD 50 mg at 07/11/212031 sodium chloride flush 0.9 % injection 5-40 mL 5-40 mL IntraVENous 2 times per day Carla Cox MD 10 mL at 07/11/21 0835 sodium chloride flush 0.9 % injection 5-40 mL 5-40 mL IntraVENous PRN Carla Cox MD 0.9 % sodium chloride infusion IntraVENous PRN Carla Cox MD enoxaparin (LOVENOX) injection 40 mg 40 mg SubCUTAneous Daily Carla Cox MD ondansetron (ZOFRAN-ODT) disintegrating tablet 4 mg 4 mg Oral Q8H PRN Carla Cox MD Or ondansetron (ZOFRAN) injection 4 mg 4 mg IntraVENous Q6H PRN Carla Cox MD polyethylene glycol (GLYCOLAX) packet 17 g 17 g Oral Daily PRN Carla Cox MD acetaminophen (TYLENOL) tablet 650 mg 650 mg Oral Q6H PRN Carla Cox MD 650 mg at 07/11/21 0134 Or acetaminophen (TYLENOL) suppository 650 mg 650 mg Rectal Q6H PRN Carla Cox MD aluminum & magnesium hydroxide-simethicone (MAALOX) 200-200-20 MG/5ML suspension 30 mL 30 mL Oral Q6H PRN Carla Cox MD OBJECTIVE VITALS: BP 136/87 Pulse 105 Temp 97.7 F (36.5 C) (Temporal) Resp 18 Ht 5' 10.98 (1.803 m) Wt 130 lb (59 kg) SpO2 98% BMI 18.14 kg/m TEMPERATURE: Current - Temp: 97.7 F (36.5 C); Max - Temp Av.6 F (37 C) Min: 97.7 F (36.5 C) Max: 99.4 F (37.4 C) RESPIRATIONS RANGE: Resp Av.3 Min: 18 Max: 19 PULSE RANGE: Pulse Av.7 Min: 81 Max: 105 BLOOD PRESSURE RANGE: Systolic (24hrs), Av , Min:106 , Max:136 ; Diastolic (24hrs), Av, Min:64, Max:87 PULSE OXIMETRY RANGE: SpO2 Av.8 % Min: 95 % Max: 98 % 24HR INTAKE/OUTPUT: Intake/Output Summary (Last 24 hours) at 07/11/20216 Last data filed at 07/11/2021 1842 Gross per 24 hour Intake Output 2250 ml Net -2250 ml GENERAL: Pleasant and NAD. HEENT: NCAT, PERRLA, EOMI, Scleral anicteric. Oropharhynx clear with no erythema or exudate. Neck supple, no cervical LAD or thyromegaly. CV: RRR, NL S1/S2, no murmurs. Distal pulses palpable and equal b/l. LUNGS: CTA b/l. Normal percussion and palpation. No W/R/R. ABD: + BS, soft, non-tender and non-distended. No hepatosplenomegaly. No mass felt. No rebound or guarding. EXT: No C/C/E. No muscle atrophy. SKIN: No skin lesion or breakdown. NEURO: A&O x 3, CN II-XII grossly intact. No asterixis. Data Recent blood work, radiologic study and endoscopic study were reviewed with the patient. CBC: Recent Labs 07/11/21 1505 WBC 13.0* HGB 11.8* HCT 36.0* PLT 357 HEPATIC: No results for input(s): AST, ALT, ALB, BILITOT, ALKPHOS in the last 72 hours. LIPASE/AMYLASE: No results for input(s): AMYLASE, LIPASE in the last 72 hours. LACTATE: No results for input(s): LACTA in the last 72 hours. BNP: No results for input(s): BNP in the last 72 hours. INR: No results for input(s): INR in the last 72 hours. ASSESSMENT AND PLAN 1. Dysphagia - better, no stricture. Speech eval recs noted. Continue diet/manuvers 2. GERD - PPI controlled Await bx results - will call. Will sign off, available if needed. Ov 2-3 months * Sharita Rich MD - 07/11/2021 12:17 PM EDT Images from the original note were not included. Hospitalist Progress Note 07/11/[id number]: Please page me ([phone]) for patient care issues. [phone]: Please page [facility] night Hospitalist for any issues. Subjective: Admit Date: 07/01/2021 PCP: Antwan Buchanan Room#: 267/2672 Interval History: Patient seen and examined. Father was by his bedside. He had no active complaints. He still feels short of breath. He says he knows he is aspirating, but is unsure why that has beenhappening. He has no other complaints and review of systems is otherwise negative. ADULT DIET; Regular ADULT ORAL NUTRITION SUPPLEMENT; Lunch, Dinner; Frozen Oral Supplement Patient Vitals for the past 96 hrs (Last 3 readings): Weight 07/08/21 0521 130 lb (59 kg) 24HR INTAKE/OUTPUT: Intake/Output Summary (Last 24 hours) at 07/11/2021 1217 Last data filed at 07/11/2021 1055 Gross per 24 hour Intake Output 2150 ml Net -2150 ml Past Medical History: Diagnosis Date Anxiety COPD (chronic obstructive pulmonary disease) (HCC) Diverticulitis Pancreatitis TIA (transient ischemic attack) Pt stated in and in 2014 LABS: CBC: No results for input(s): WBC, RBC, HGB, HCT, MCV, RDW, PLT in the last 72 hours. BMP:No results for input(s): NA, K, CL, CO2, BUN, CREATININE, GLUCOSE, CALCIUM, ANIONGAP in the last 72 hours. LIVER PROFILE:No results for input(s): AST, ALT, BILITOT, ALKPHOS, LABALBU, PROT in the last 72 hours. PT/INR: No results for input(s): PROTIME, INR in the last 72 hours. CARDIAC ENZYMES: No results for input(s): TROPONINI in the last 72 hours. Procalcitonin: Lab Results Component Value Date PROCAL 0.05 07/02/2021 COVID-19 PCR: No results for input(s): COVID19 in the last 72 hours. Objective: Vitals: BP 106/64 Pulse 81 Temp 98.8 F (37.1 C) (Temporal) Resp 19 Ht 5' 10.98 (1.803 m) Wt 130 lb (59 kg) SpO2 95% BMI 18.14 kg/m Pulse Ox: SpO2 Av.2 % Min: 91 % Max: 97 % Supplemental O2: O2 Flow Rate (L/min): 4 L/min General appearance: No apparent distress, appears stated age and cooperative with exam, looks frail HEENT: Normal cephalic, atraumatic without obvious deformity. Pupils equal, round, and reactive to light. Extra ocular muscles intact. Conjunctivae/corneas clear. Neck: Supple, with full range of motion. No jugular venous distention. Trachea midline. No lymphadenopathy. Respiratory: diminished breath sounds bibasally, few crackles. On 4L of oxygen by nasal canula, which is his baseline Cardiovascular: Regular rate and rhythm with normal S1/S2 without murmurs, rubs or gallops. Abdomen: Soft, non-tender, non-distended with normal bowel sounds. No rebound or guarding. Musculoskeletal: No clubbing, cyanosis or edema bilaterally. Full range of motion without deformity. Skin: Skin color, texture, turgor normal. No rashes or lesions. Neurologic: Neurovascularly intact without any focal sensory/motor deficits. Cranial nerves: II-XIIintact, grossly non-focal. Medications: sodium chloride piperacillin-tazobactam 3,375 mg IntraVENous Q8H predniSONE 40 mg Oral Lunch pantoprazole 40 mg Oral QAM AC ipratropium-albuterol 1 ampule Inhalation TID buPROPion 300 mg Oral QAM guaiFENesin 600 mg Oral BID sertraline 50 mg Oral Daily tiotropium 18 mcg Inhalation Daily sodium chloride flush 5-40 mL IntraVENous 2 times per day enoxaparin 40 mg SubCUTAneous Daily Assessment #Community acquired pneumonia -sputum cultures growing Pseudomonas aeruginosa; it doesn't seem like he has received any antibiotics during this admission -will start on IV zosyn. -in light of his worsening shortness of breath yesterday, I do think it is prudent to hold off on discharge and initiate IV antibiotics #Dysphagia -MRI of the brain ruled out any central etiology that could be contributing to dysphagia -had EGD which showed retained foot in stomach, but showed nothing else -speech therapy on board -on modified diet #Pharyngocele -to follow up with ENT on outpatient basis #Chronic hypoxic respiratory failure: on 4L of oxgyen by nasal canula, which is his baseline. Breathing treatment with bronchodilators. #Vitamin B12 deficiency: #COPD: not in exacerbation. #Unintentional weight loss -had CT chest, abdomen and pelvis which showed no acute pathology -will monitor DVT prophylaxis: lovenox Plan -am labs, replace lytes prn -increase activity -DVT prophylaxis: [] Lovenox [] Heparin [] SCDs [x] Encourage ambulation [] Already on Anticoagulation Advance Directive: Full Code Discharge planning: TBD Sharita Rich MD Division of Hospitalist Medicine Inpatient Medical Services/[facility]: [phone] * Loreta Bell, [employer] SALES REPRESENTATIVE - 07/11/2021 12:08 PM EDT Facility/Department: [facility] TELEMETRY Dysphagia Treatment Note NAME: Luis Steele : 1970 Patient Diagnosis(es): Patient Active Problem List Diagnosis COVID-19 COPD with acute exacerbation (HCC) Severe malnutrition (HCC) Dysphagia Shortness of breath Gastroesophageal reflux disease with esophagitis Retained food in stomach Allergies: Allergies Allergen Reactions Codeine Tramadol Swelling Tongue swells Pain: No complaints of pain during treatment session. Current Diet Level: Pt currently tolerating regular foods and thin liquids, no straws to maximize nutritional and hydrational benefit. Compensatory Techniques []Chin tuck [x]Small bolus [x]Alternate bites/ sips []Prep-set swallow with liquids [x]No straws []Liquids by teaspoon only []Supraglottic Swallow []Liquid wash []Swallow x 2 with each bolus []Effortful Swallow []Throat clear or cough after each bite/sip [x]Position patient upright []Reflux precautions []Upright After Meal at least 30 minutes []Other S: Pt was alert, pleasant, and cooperative with all therapy tasks presented. He was noted to present with excessive coughing during the initial part of the treatment session. O: GOALS ADDRESSED, Reviewed safe swallowing strategies. Completed swallowing strengthening exercises and breath support exercises. A: Pt was able to demonstrate pharyngeal strengthening exercises x 5 repetitions. Reviewed safe swallowing strategies. He was able to tolerate small sips of thin liquids without any overt signs/symptoms of aspiration. Able to tolerate regular textured foods without difficulties. [] Goal met [x] Progressing as expected [] Progressing slower than expected [] Medical status inhibits participation [] Goals not addressed this session [] Goals revised this session [] Unable to show any progress towards functional goals [] Progress towards functional goal is gradual / fair P: Continue to work toward previously established goals as per plan of treatment. TRACI Courtney M.A.[facility]/[employer] SALES REPRESENTATIVE, Elio Time in: 1100 Time out: 1135 * Jay Fields, RD, LD - 07/10/2021 3:26 PM EDT Comprehensive Nutrition Assessment Type and Reason for Visit: Reassess Nutrition Recommendations/Plan: 1. Continue with Regular diet as tolerated. [employer] SALES REPRESENTATIVE following to ensure safe swallow; provide textures per [employer] SALES REPRESENTATIVE. Suggest small, frequent meals for ease of digestion while encouraging adequate PO intakes. 2. Modify ONS as Ensure Enlives are piling up at bedside. PT does like them, but could not keep up with the frequency. Monitor need to reorder once pt's stock runs out. 3. Initiate Magic cup BID per MNT protocol. Magic cup provides 290 kcals, 9 g protein per serving. 4. Please document pt's PO intakes via flowsheet to accurately assess PO intake adequacy. 5. Monitor need for GI motility as suggested by GI. EGD showed retained food in the stomach. 6. Monitor intakes, wts, and labs. RD will follow. Malnutrition Assessment: Malnutrition Status: Severe malnutrition (07/02/21 1503) Context: Social/Environmental Circumstances Nutrition Assessment: Pt's discharge order was canceled due to respiratory distress. Pt reports eating fairly well. S/P EGD today which showed retained food in the stomach. GI suggested motility agent, but no new orders currently. Pt had some Ensure Enlives piled up at bedside. Pt stated that he liked them, but was unable to keep up with the frequency. Pt stated that he sleeps alot during the day and often misses drinking them when they are delivered due to being asleep. Pt will continue to work on drinking them. Ptalso reported some difficulty swallowing liquids and has to drink small volume at once. [employer] SALES REPRESENTATIVE following and noted the same. Cleared for regular diet with small drinks of liquids. Pt agreeable to trial M agic cup Nutrition Related Findings: no edema; Na 131, Glucose 108, 87, 108, Hgb 12.5, Hct 37.9 Wound Type: None Current Nutrition Intake & Therapies: Average Meal Intake: 76-100% Average Supplements Intake: 1-25%,26-50% ADULT DIET; Regular ADULT ORAL NUTRITION SUPPLEMENT; Lunch, Dinner; Frozen Oral Supplement Anthropometric Measures: Height: 5' 10.98 (180.3 cm) [place] Body Weight (IBW): 172 lbs (78 kg) Admission Body Weight: 130 lb (59 kg) (07/02/21) Current Body Weight: 130 lb 11.7 oz (59.3 kg) (07/07/21), 76 % IBW. Weight Source: Standing Scale Current BMI (kg/m2): 18.2 Usual Body Weight: 149 lb (67.6 kg) (11/19/20 and 05/29/21 was 135#) % Weight Change (Calculated): -12.3 BMI Categories: Underweight (BMI less than 18.5) Estimated Daily Nutrient Needs: Energy Requirements Based On: Kcal/kg Weight Used for Energy Requirements: Current Energy (kcal/day): 30-35 or 0463-2662 Weight Used for Protein Requirements: Current Protein (g/day): 71-106 (1.2-1.8) Method Used for Fluid Requirements: 1 ml/kcal Fluid (ml/day): or per md Nutrition Diagnosis: Severe malnutrition related to catabolic illness,impaired respiratory function as evidenced by severe loss of subcutaneous fat,severe muscle loss,weight loss greater than or equal to 10% in 6 months Swallowing difficulty related to impaired respiratory function as evidenced by other (comment) (perpt report difficulty with liquids) Nutrition Interventions: Food and/or Nutrient Delivery: Continue Current Diet,Modify Oral Nutrition Supplement Nutrition Education/Counseling: Education not indicated ([employer] SALES REPRESENTATIVE continues to follow for dysphagia and strengthening exercises) Coordination of Nutrition Care: Continue to monitor while inpatient,Swallow Evaluation Plan of Care discussed with: Pt Goals: Previous Goal Met: Progressing toward Goal(s) Goals: PO intake 75% or greater,Meet at least 75% of estimated needs Nutrition Monitoring and Evaluation: Behavioral-Environmental Outcomes: None Identified Food/Nutrient Intake Outcomes: Diet Advancement/Tolerance,Food and Nutrient Intake,Supplement Intake Physical Signs/Symptoms Outcomes: Biochemical Data,GI Status,Fluid Status or Edema,Nutrition Focused Physical Findings,Skin,Weight Discharge Planning: Continue current diet,Continue Oral Nutrition Supplement Jay Fields RD, WANG Contact: *[phone] * Charles Patten MD - 07/10/2021 2:35 PM EDT Called to see patient at bedside In respiratory distress, shallow breathing, tripoding Tx: Solumedrol / duonebs Holding discharge today * Charles Patten MD - 07/10/2021 10:19 AM EDT Images from the original note were not included. Hospitalist Progress Note SYNOPSIS: Patient admitted on 07/01/2021 for had concerns including Shortness of Breath. SUBJECTIVE: Hospital day 7 Patient seen and examined Records reviewed. S/p EGD this AM Order regular diet Temp (24hrs), Av F (36.7 C), Min:97.5 F (36.4 C), Max:98.3 F (36.8 C) DIET: ADULT DIET; Regular CODE: Full Code OBJECTIVE: BP 123/87 Pulse 103 Temp 97.9 F (36.6 C) (Temporal) Resp 18 Ht 5' 10.98 (1.803 m) Wt 130lb (59 kg) SpO2 93% BMI 18.14 kg/m General appearance: No apparent distress, appears cachectic HEENT: Conjunctivae/corneas clear. Neck: Supple. No jugular venous distention Respiratory: Diminished to auscultation bilaterally, normal respiratory effort Cardiovascular: Regular rate rhythm, normal S1-S2 Abdomen: Soft, nontender, nondistended Musculoskeletal: No clubbing, cyanosis, no bilateral lower extremity edema. Brisk capillary refill. Skin: No rashes on visible skin Neurologic: awake, alert and following commands, appears grossly intact ASSESSMENT: Dysphagia with liquids COPD Aspiration Chronic respiratory failure Anemia B12 deficiency Severe malnutrition Unintentional weight loss Past Medical History: Diagnosis Date Anxiety COPD (chronic obstructive pulmonary disease) (HCC) Diverticulitis Pancreatitis TIA (transient ischemic attack) Pt stated in and in 2014 PLAN: CT chest, abdo, pelvis reviewed. No oncologic process noted. Esophagram reviewed , [employer] SALES REPRESENTATIVE following, Negative MRI brain to r/o central etiologies for CVA Tolerating a regular PO diet CXR negative for acute process Pseudomonas in Sputum, no processes C/w other meds for now WBC trend improving OP ENT consult for evaluation of pharyncele DISPOSITION: Discharge today Medications: REVIEWED DAILY Infusion Medications sodium chloride Scheduled Medications pantoprazole 40 mg Oral QAM AC ipratropium-albuterol 1 ampule Inhalation TID buPROPion 300 mg Oral QAM guaiFENesin 600 mg Oral BID sertraline 50 mg Oral Daily tiotropium 18 mcg Inhalation Daily sodium chloride flush 5-40 mL IntraVENous 2 times per day enoxaparin 40 mg SubCUTAneous Daily PRN Meds: [id number]-hhzxdqqy, traZODone, sodium chloride flush, sodium chloride, ondansetron OR ondansetron, polyethylene glycol, acetaminophen OR acetaminophen, aluminum &magnesium hydroxide-simethicone Labs: Recent Labs 07/08/21346 WBC 10.5 HGB 12.5* HCT 37.9* PLT 313 Recent Labs 07/08/21346 NA 131* K 4.4 CL 98 CO2 28 BUN 13 CREATININE 0.88 CALCIUM 8.8 No results for input(s): PROT, ALB, ALKPHOS, ALT, AST, BILITOT, AMYLASE, LIPASE in the last 72 hours. No results for input(s): INR in the last 72 hours. No results for input(s): CKTOTAL, TROPONINI in the last 72 hours. Chronic labs: Lab Results Component Value Date TSH 1.574 07/02/2021 Radiology: REVIEWED PERIODICALLY +++++++++++++++++++++++++++++++++++++++++++++++++ Charles Patten MD HOSPITALIST +++++++++++++++++++++++++++++++++++++++++++++++++ NOTE: This report was transcribed using voice recognition software. Every effort was made to ensureaccuracy; however, inadvertent computerized tailor apprentice errors may be present. * Sandra Da Silva RN - 07/10/2021 9:37 AM EDT POST ENDOSCOPY PROCEDURE TRANSFER REPORT Procedure completed:egd Findingssee report Specimens obtained: biopsy Medications administered: propofol 140 mg Additional Info: tolerated well For additional Questions please call Endoscopy at [phone]. Thank You! * Charles Patten MD - 07/09/2021 10:41 AM EDT Images from the original note were not included. Hospitalist Progress Note SYNOPSIS: Patient admitted on 07/01/2021 for had concerns including Shortness of Breath. SUBJECTIVE: Hospital day 6 Patient seen and examined Records reviewed. MRI brain without acute CVA CT chest, abdo, pelvis without concern for mass CT chest with emphysema - may explain weight loss, or cachexia Stable overnight. No other overnight issues reported. Temp (24hrs), Av F (37.2 C), Min:97.6 F (36.4 C), Max:100.3 F (37.9 C) DIET: ADULT DIET; Regular; No Drinking Straws CODE: Full Code OBJECTIVE: BP 93/62 Pulse 80 Temp 97.6 F (36.4 C) (Temporal) Resp 20 Ht 5' 10.98 (1.803 m) Wt 130 lb (59 kg) SpO2 97% BMI 18.14 kg/m General appearance: No apparent distress, appears cachectic HEENT: Conjunctivae/corneas clear. Neck: Supple. No jugular venous distention Respiratory: Diminished to auscultation bilaterally, normal respiratory effort Cardiovascular: Regular rate rhythm, normal S1-S2 Abdomen: Soft, nontender, nondistended Musculoskeletal: No clubbing, cyanosis, no bilateral lower extremity edema. Brisk capillary refill. Skin: No rashes on visible skin Neurologic: awake, alert and following commands, appears grossly intact ASSESSMENT: Dysphagia with liquids COPD Aspiration Chronic respiratory failure Anemia B12 deficiency Severe malnutrition Unintentional weight loss Past Medical History: Diagnosis Date Anxiety COPD (chronic obstructive pulmonary disease) (HCC) Diverticulitis Pancreatitis TIA (transient ischemic attack) Pt stated in and in 2014 PLAN: CT chest, abdo, pelvis to r/o oncologic etiology Esophagram ordered STAT, [employer] SALES REPRESENTATIVE following, MRI brain to r/o central etiologies for CVA Tolerating a regular PO diet CXR stat to r/o aspiration pneumonia was without acute process C/w other meds for now WBC trend improving DISPOSITION: TBD Medications: REVIEWED DAILY Infusion Medications sodium chloride Scheduled Medications pantoprazole 40 mg Oral QAM AC ipratropium-albuterol 1 ampule Inhalation TID buPROPion 300 mg Oral QAM guaiFENesin 600 mg Oral BID sertraline 50 mg Oral Daily tiotropium 18 mcg Inhalation Daily sodium chloride flush 5-40 mL IntraVENous 2 times per day enoxaparin 40 mg SubCUTAneous Daily PRN Meds: [id number]-hzrbgwlzcnoea-juhmsdqq, traZODone, sodium chloride flush, sodium chloride, ondansetron OR ondansetron, polyethylene glycol, acetaminophen OR acetaminophen, aluminum &magnesium hydroxide-simethicone Labs: Recent Labs 07/07/2131707/08/21346 WBC 9.3 10.5 HGB 10.6* 12.5* HCT 32.4* 37.9* PLT 239 313 Recent Labs 07/07/2131707/08/21346 NA 136 131* K 3.2* 4.4 CL 108* 98 CO2 23 28 BUN 14 13 CREATININE 0.66 0.88 CALCIUM 7.3* 8.8 No results for input(s): PROT, ALB, ALKPHOS, ALT, AST, BILITOT, AMYLASE, LIPASE in the last 72 hours. No results for input(s): INR in the last 72 hours. No results for input(s): CKTOTAL, TROPONINI in the last 72 hours. Chronic labs: Lab Results Component Value Date TSH 1.574 07/02/2021 Radiology: REVIEWED PERIODICALLY +++++++++++++++++++++++++++++++++++++++++++++++++ Charles Patten MD HOSPITALIST +++++++++++++++++++++++++++++++++++++++++++++++++ NOTE: This report was transcribed using voice recognition software. Every effort was made to ensureaccuracy; however, inadvertent computerized tailor apprentice errors may be present. * Jay Fields RD, WANG - 07/09/2021 9:43 AM EDT Ensure supplements piling up per tray passer. Will cancel for now and continue to follow patient during admit. * Audrey Marx [facility] - 07/08/2021 3:59 PM EDT [facility] Respiratory Care Department Progress Note As part of the Respiratory Assessment Program (RAP), the following Respiratory Therapist evaluationhas been completed, including a chart review and clinical/physical assessment. Respiratory Therapist RAP Evaluation Guideline Points 0 1 2 3 4 Points Strongly Consider History Factor No Pulmonary conditions Stable Pulmonary condition(s) Surgery or Intervention that may impact Pulmonary system (at risk) Surgery or Intervention that is impacting Pulmonary system Active Exacerbation of Pulmonary Condition 3 Respiratory Pattern Regular, RR= 12-18 SHAHID or Increased RR= 19-24 Irregular, or RR= 25-30 SOB, talk in short sentences, or RR= 31-35 Severe SOB, accessory muscle use, one word answers, or RR>35 0 Aerosol Med(s), High Flow O2 Breath Sounds Clear Diminished in 1 lobe Diminished in ? 2 lobes Adventitious breath sounds Coarse crackles, Wheezes, or Diminished in >2 lobes 2 Aerosol Med(s), Bronchial Hygiene, Hyperinflation Cough & Sputum Strong cough, no secretion retention or production Weak cough, no secretion retention or production Weak cough, w/ production (less often than Q2hr), or secretion retention No cough, w/ secretion retention or production (less often than Q2hr) Significant secretion production (more often than Q2hr) or mucus plug 0 Aerosol Med(s), Bronchial Hygiene, Hyperinflation Level of Activity Ambulatory Ambulatory with Assist Up in chair or edge of bed (dangle) Non-ambulatory, bedridden with active ROM Completely paralyzed or without active ROM 0 Triage 5 0-2 Triage 4 3-5 Triage 3 6-10 Triage 2 11-14 Triage 1 ?15 Total 5 Triage Score = 4 TRIAGE SCORING SUGGESTED FREQUENCIES Aerosol Therapy Bronchial Hygiene Hyperinflation Triage Score Q4h & PRN 1 Q4hWA (QID) & PRN 2 TID & PRN 3 BID & PRN 4 PRN 5 Therapy(s) Indicated Yes/No Aerosol Medication yes Hyperinflation yes Bronchial Hygiene No High Flow Oxygen no Patient instructed and returned demonstration on use of MDI (with spacer, as appropriate) NO RT to enter/modify frequency of treatment order in EMR/EHR to match this RAP evaluation. Based on this RAP evaluation the following therapy is being initiated: Duoneb At the following frequency: TID Comments:Incentive Spirometry at bedside Thank you for involving Respiratory in the care of this patient, * Charles Patten MD - 07/08/2021 9:26 AM EDT Images from the original note were not included. Hospitalist Progress Note SYNOPSIS: Patient admitted on 07/01/2021 for had concerns including Shortness of Breath. SUBJECTIVE: Hospital day 5 Patient seen and examined Records reviewed. Unintentional weight loss > 40 #s Aspiration of fluids, not solid foods Smoker, with COPD Fairly young. Hx of TIAs Awaiting Esophagram for >3 days [employer] SALES REPRESENTATIVE luciano noted GI consult noted, awaiting Esophagram Stable overnight. No other overnight issues reported. Temp (24hrs), Av.7 F (37.1 C), Min:97.9 F (36.6 C), Max:99.5 F (37.5 C) DIET: ADULT DIET; Regular; No Drinking Straws ADULT ORAL NUTRITION SUPPLEMENT; Breakfast; Standard High Calorie/High Protein Oral Supplement CODE: Full Code OBJECTIVE: BP 105/74 Pulse 96 Temp 99.5 F (37.5 C) (Temporal) Resp 16 Ht 5' 10.98 (1.803 m) Wt 130 lb (59 kg) SpO2 94% BMI 18.14 kg/m General appearance: No apparent distress, appears cachectic HEENT: Conjunctivae/corneas clear. Neck: Supple. No jugular venous distention Respiratory: Diminished to auscultation bilaterally, normal respiratory effort Cardiovascular: Regular rate rhythm, normal S1-S2 Abdomen: Soft, nontender, nondistended Musculoskeletal: No clubbing, cyanosis, no bilateral lower extremity edema. Brisk capillary refill. Skin: No rashes on visible skin Neurologic: awake, alert and following commands, appears grossly intact ASSESSMENT: Dysphagia with liquids COPD Aspiration Chronic respiratory failure Anemia B12 deficiency Severe malnutrition Unintentional weight loss Past Medical History: Diagnosis Date Anxiety COPD (chronic obstructive pulmonary disease) (HCC) Diverticulitis Pancreatitis TIA (transient ischemic attack) Pt stated in and in 2014 PLAN: CT chest, abdo, pelvis to r/o oncologic etiology Esophagram ordered STAT, [employer] SALES REPRESENTATIVE following, MRI brain to r/o central etiologies for CVA Tolerating a regular PO diet CXR stat to r/o aspiration pneumonia was without acute process C/w other meds for now WBC trend improving DISPOSITION: TBD Medications: REVIEWED DAILY Infusion Medications sodium chloride Scheduled Medications buPROPion 300 mg Oral QAM guaiFENesin 600 mg Oral BID sertraline 50 mg Oral Daily tiotropium 18 mcg Inhalation Daily sodium chloride flush 5-40 mL IntraVENous 2 times per day enoxaparin 40 mg SubCUTAneous Daily pantoprazole (PROTONIX) 40 mg injection 40 mg IntraVENous Daily ipratropium-albuterol 1 ampule Inhalation Q4H WA cyanocobalamin 1,000 mcg IntraMUSCular Daily PRN Meds: fumjxlwpkx-qxsmyvjgulmva-dsivrqfn, traZODone, sodium chloride flush, sodium chloride, ondansetron OR ondansetron, polyethylene glycol, acetaminophen OR acetaminophen, aluminum &magnesium hydroxide-simethicone Labs: Recent Labs 07/06/210 07/07/2131707/08/21346 WBC 10.5 9.3 10.5 HGB 12.4* 10.6* 12.5* HCT 37.9* 32.4* 37.9* PLT 314 239 313 Recent Labs 07/06/2144907/07/2131707/08/21346 NA 137 136 131* K 4.0 3.2* 4.4 CL 100 108* 98 CO2 34* 23 28 BUN 14 14 13 CREATININE 0.81 0.66 0.88 CALCIUM 9.0 7.3* 8.8 No results for input(s): PROT, ALB, ALKPHOS, ALT, AST, BILITOT, AMYLASE, LIPASE in the last 72 hours. No results for input(s): INR in the last 72 hours. No results for input(s): CKTOTAL, TROPONINI in the last 72 hours. Chronic labs: Lab Results Component Value Date TSH 1.574 07/02/2021 Radiology: REVIEWED PERIODICALLY +++++++++++++++++++++++++++++++++++++++++++++++++ Charles Patten MD HOSPITALIST +++++++++++++++++++++++++++++++++++++++++++++++++ NOTE: This report was transcribed using voice recognition software. Every effort was made to ensureaccuracy; however, inadvertent computerized tailor apprentice errors may be present. * Theresa Upton RD, LD - 07/07/2021 3:54 PM EDT Comprehensive Nutrition Assessment Type and Reason for Visit: Reassess Nutrition Recommendations/Plan: 1. Continue Regular diet, with no straws and meds to be given whole in pudding per [employer] SALES REPRESENTATIVE assessment on 07/02/21. 2. Per MNT protocol, reduced Ensure supplement to once daily, noted 5 unopened at bedside during visit. Ensure Enlive to provide: +350 kcal, 20 g protein, 240 mL fluid/day 3. Please record % meals and oral nutrition supplements consumed in flow-sheet for most accurate nutrient intake assessment. 4. RDN to continue to monitor weekly: fluid accumulation, weight, skin integrity, trends in lab values, tolerance of diet and ONS, clinical status, discharge planning Malnutrition Assessment: Malnutrition Status: Severe malnutrition (07/02/21 1503) Context: Social/Environmental Circumstances Nutrition Assessment: 50 year old man with PMHx: pancreatitis, diverticulitis, COPD (on 4 L O2 at baseline). Presented [facility] ED with difficulty swallowing on 07/01/21, transferred to [facility] late in evening on 07/01/21. MBSS completed on 07/02/21, [employer] SALES REPRESENTATIVE recommending Regular diet with very small drinks of thin liquids. No straws. Medications whole in pudding (prefers chocolate) . Unable to completed esophagram d/t SOB and concerns for aspiration. [employer] SALES REPRESENTATIVE continues for follow for dysphagia care and strengthening exercises. Sleeping this morning at time of attempted visit, noted 5 unopened Ensure supplements at bedside, reduced to once daily with breakfast. Nutrition Related Findings: No skin brak down or edema noted. Nasim score=22. -I/O balance. Remains on 4 L O2. +bm 07/06 with bowel sounds. Meds and labs reviewed. unable to complete esophagram d/t aspiration concerns and SOB Wound Type: None Current Nutrition Intake & Therapies: Average Meal Intake: 76-100% Average Supplements Intake: Unable to assess ADULT DIET; Regular; No Drinking Straws ADULT ORAL NUTRITION SUPPLEMENT; Breakfast; Standard High Calorie/High Protein Oral Supplement Anthropometric Measures: Height: 5' 10.98 (180.3 cm) [place] Body Weight (IBW): 172 lbs (78 kg) Admission Body Weight: 130 lb (59 kg) (07/02/21) Current Body Weight: 130 lb 11.7 oz (59.3 kg) (07/07/21), 76 % IBW. Weight Source: Standing Scale Current BMI (kg/m2): 18.2 Usual Body Weight: 149 lb (67.6 kg) (11/19/20 and 05/29/21 was 135#) % Weight Change (Calculated): -12.3 BMI Categories: Underweight (BMI less than 18.5) Estimated Daily Nutrient Needs: Energy Requirements Based On: Kcal/kg Weight Used for Energy Requirements: Current Energy (kcal/day): 30-35 or 1326-7669 Weight Used for Protein Requirements: Current Protein (g/day): 1.2-1.8 or 94-141 Method Used for Fluid Requirements: 1 ml/kcal Fluid (ml/day): or per md Nutrition Diagnosis: Severe malnutrition,In context of social or environmental circumstances related to catabolic illness,other (comment),psychological cause or life stress (copd - on o2-multiple family stressors- in past6 mos- loss of significant other,mothers and fathers new [place] dx- depression) as evidenced by severe muscle loss,severe loss of subcutaneous fat,weight loss greater than or equal to 10% in 6 months (12.75 in 7 mos and 4.8 % in 1 mo and ~5% in 1 mo) Swallowing difficulty related to other (comment) (aspirates thin liquids) as evidenced by other (comment) (MBBS ,[employer] SAL[employer] REPRESENTATIVE evafshan) Nutrition Interventions: Food and/or Nutrient Delivery: Continue Current Diet,Modify Oral Nutrition Supplement Nutrition Education/Counseling: Education not indicated ([employer] SALES REPRESENTATIVE continues to follow for dysphagia and strengthening exercises) Coordination of Nutrition Care: Speech Therapy,Continue to monitor while inpatient,Swallow Evaluation Plan of Care discussed with: NA patient sleeping Goals: Previous Goal Met: Progressing toward Goal(s) Goals: PO intake 75% or greater (and 100% of ONS) Nutrition Monitoring and Evaluation: Behavioral-Environmental Outcomes: None Identified Food/Nutrient Intake Outcomes: Diet Advancement/Tolerance,Food and Nutrient Intake,Supplement Intake Physical Signs/Symptoms Outcomes: Chewing or Swallowing,Biochemical Data,Nausea or Vomiting,GI Status,Meal Time Behavior,Nutrition Focused Physical Findings,Fluid Status or Edema,Hemodynamic Status,Skin,Weight Discharge Planning: Continue Oral Nutrition Supplement Theresa Upton RD, [place] Contact: [phone] * Jamee Alejandro MD - 07/07/2021 12:22 PM EDT Images from the original note were not included. Hospitalist Progress Note 07/07/2021 12:22 PM Subjective: Admit Date: 07/01/2021 PCP: No primary care provider on file. Interval History: Remains on oxygen. Has cough. Some sob. Weak. No cp, n/v, f/c. ADULT DIET; Regular; No Drinking Straws ADULT ORAL NUTRITION SUPPLEMENT; Breakfast, Dinner; Standard High Calorie/High Protein Oral Supplement I/O last 3 completed shifts: In: - Out: 1600 [Urine:1600] Date 07/07/21 0000 - 07/07/212358 Shift 2551-0130 5347-4185 4247-1267 24 Hour Total INTAKE Shift Total(mL/kg) OUTPUT Urine(mL/kg/hr) 800 800 Shift Total(mL/kg) 800(13.5) 800(13.5) Weight (kg) 59.3 59.3 59.3 59.3 Patient Vitals for the past 96 hrs (Last 3 readings): Weight 04/26/22 0624 130 lb 11.2 oz (59.3 kg) 07/05/21 0533 129 lb 14.4 oz (58.9 kg) Medications: sodium chloride buPROPion 300 mg Oral QAM guaiFENesin 600 mg Oral BID sertraline 50 mg Oral Daily tiotropium 18 mcg Inhalation Daily sodium chloride flush 5-40 mL IntraVENous 2 times per day enoxaparin 40 mg SubCUTAneous Daily pantoprazole (PROTONIX) 40 mg injection 40 mg IntraVENous Daily ipratropium-albuterol 1 ampule Inhalation Q4H WA cyanocobalamin 1,000 mcg IntraMUSCular Daily Recent Labs 07/05/21 0458 07/06/21 0450 07/07/21 0318 WBC 12.6* 10.5 9.3 HGB 12.8* 12.4* 10.6* PLT 284 314 239 Recent Labs 07/05/2145707/06/21 0450 07/07/21 0318 NA 134* 137 136 K 3.7 4.0 3.2* CL 100 100 108* CO2 29 34* 23 BUN 19* 14 14 CREATININE 0.86 0.81 0.66 GLUCOSE 112* 108* 87 No results for input(s): AST, ALT, ALB, BILITOT, ALKPHOS in the last 72 hours. No results found for: TRIG, HDL, LDLCALC, CHOL No results found for: PHART, PO2ART, EGO1DWV No results for input(s): INR in the last 72 hours. No results for input(s): CKTOTAL, CKMB, TROPONINI in the last 72 hours. No results for input(s): DDIMER in the last 72 hours. No components found for: HGBA1C Lab Results Component Value Date TSH 1.574 07/02/2021 Urine Culture: No results found for this or any previous visit. Objective: Vitals: BP 113/79 Pulse 99 Temp 98.1 F (36.7 C) (Temporal) Resp 18 Ht 5' 10.98 (1.803 m) Wt 130 lb 11.2 oz (59.3 kg) SpO2 94% BMI 18.24 kg/m Pulse Ox: SpO2 Av.3 % Min: 93 % Max: 99 % Supplemental O2: O2 Flow Rate (L/min): 1 L/min General appearance: alert and cooperative with exam Lungs: coarse bs Heart: regular rate and rhythm, S1, S2 normal, no murmur, click, rub or gallop Abdomen: soft, NT, BS+ Extremities: no edema Neurologic: No obvious focal neurologic deficits. Assessment Dysphagia Aspiration COPD Chronic respiratory failure on home oxygen 4lit/NC hypokalemia Leucocytosis resolved anemia Hypovitaminosis B12 Malnutrition Diagnosis Date Anxiety COPD (chronic obstructive pulmonary disease) (HCC) Diverticulitis Pancreatitis TIA (transient ischemic attack) Pt stated in and in 2014 Plan -replace k and mag - esophagogram - GI to follow - c/w pulmonary toileting/BD -am labs -increase activity Advance Directive: Full Code Discharge planning: TBD JAMEE ALEJANDRO MD [facility] Hospitalist * Ngozi Bonilla - 07/07/2021 9:04 AM EDT Patient unable to catch his breath in order to do esophagram. Another MBS is recommended before proceeding with esophagram to r/o aspiration. * TRACI Benoit - 07/06/2021 1:31 PM EDT Speech Language Pathology Facility/Department: [facility] TELEMETRY Dysphagia Treatment Note NAME: Luis Steele : 1970 Allergies: Allergies Allergen Reactions Codeine Tramadol Swelling Tongue swells 4L nasal cannula Current Diet Level: Regular with single small drinks Compensatory Techniques []Chin tuck [x]Very small bolus []Alternate bites/ sips [x]No straws []Liquids by teaspoon only []Swallow x 2 with each bolus []External pacing [x]Position patient upright []Other Pain:Headache starting, RN notified for pt. S: Pt was alert and cooperative. O: Oropharyngeal strengthening, strategy review. A: Pt with recall of MBSS. Straw in cup, pt indicated that he is not using it. Nursing provided forhim. Pt's white board was updated since he had room change release manager the weekend. Discuss concern with aspiration and reinforce importance of swallow strategy adherence. Pt verbalize understanding of sameand does not want to thicken his liquids. WBC improved. Awaiting esophagram per pt and notes Able to demonstrate effortful swallow, laurita (bite swallow) with rest breaks as indicated or needed. Reviewed airway closure exercise for independent practice, pt confirmed increased knowledge of this exercise. Reinforce multiple rest breaks and not to hold too long d/t COPD. [] Goal met [] Progressing as expected [] Progressing slower than expected [] Medical status inhibits participation [] Goals not addressed this session [] Goals revised this session [] Unable to show any progress towards functional goals [x] Progress towards functional goal is gradual / fair Routine Education: Results and recommendations from this session were discussed with the patient including: diet recommendations (Regular with very small drinks), swallowing strategies/compensatory techniques (see above), oropharyngeal strengthening exercises and potential next steps including additional diagnostic testing and treatment goals in the dysphagia plan of care. Patient shows Good level of comprehension. Discharge Education: Provided education for the next level of care including continued diet modification and swallowing strategies (see above), oral motor or oropharyngeal exercises, and continued need for speech therapyinvolvement. Speech therapist provided written educational resources for patient at bedside. Education provided to patient. Patient expressed or demonstrated comprehension and agree to the dysphagia plan of care. P: Continue dysphagia POC. Continue ex independently after d/c. TRACI Benoit M.A.[facility]/[employer] SALES REPRESENTATIVE Time session ended: 1324 Total session minutes: 21 * Francisco Javier Alvarado MD - 07/06/2021 12:21 PM EDT Images from the original note were not included. Hospitalist Progress Note 07/06/2021 12:21 PM Subjective: Admit Date: 07/01/2021 PCP: No primary care provider on file. Interval History: Admitted for dysphagia. Found to have aspiration while doing esophagogram and could not be completed. Swallowing better with less aspiration. Stayed over the weekend To complete esophagogram. GI following. Today: Possibly esophagogram could be completed. Has cough with brown sputum- send culture. Afebrile ADULT DIET; Regular; No Drinking Straws ADULT ORAL NUTRITION SUPPLEMENT; Breakfast, Dinner; Standard High Calorie/High Protein Oral Supplement I/O last 3 completed shifts: In: 1210 [P.O.:1200; I.V.:10] Out: 2250 [Urine:2250] Date 07/06/21 - 07/06/212358 Shift [id number] [id number] [id number] 24 Hour Total INTAKE Shift Total(mL/kg) OUTPUT Urine(mL/kg/hr) 800(1.7) 300 1100 Shift Total(mL/kg) 800(13.6) 300(5.1) 1100(18.7) Weight (kg) 58.9 58.9 58.9 58.9 Patient Vitals for the past 96 hrs (Last 3 readings): Weight 07/05/21 0533 129 lb 14.4 oz (58.9 kg) 07/02/21 1415 130 lb (59 kg) Medications: sodium chloride buPROPion 300 mg Oral QAM guaiFENesin 600 mg Oral BID sertraline 50 mg Oral Daily tiotropium 18 mcg Inhalation Daily sodium chloride flush 5-40 mL IntraVENous 2 times per day enoxaparin 40 mg SubCUTAneous Daily pantoprazole (PROTONIX) 40 mg injection 40 mg IntraVENous Daily ipratropium-albuterol 1 ampule Inhalation Q4H WA cyanocobalamin 1,000 mcg IntraMUSCular Daily Recent Labs 07/04/21 0522 07/05/21 0458 07/06/21 0450 WBC 12.5* 12.6* 10.5 HGB 12.5* 12.8* 12.4* PLT 300 284 314 Recent Labs 07/04/21 0522 07/05/21 0458 07/06/21 0450 NA 137 134* 137 K 4.2 3.7 4.0 CL 100 100 100 CO2 32* 29 34* BUN 17 19* 14 CREATININE 0.89 0.86 0.81 GLUCOSE 110* 112* 108* No results for input(s): AST, ALT, ALB, BILITOT, ALKPHOS in the last 72 hours. No results found for: TRIG, HDL, LDLCALC, CHOL No results found for: PHART, PO2ART, FJO2CLN No results for input(s): INR in the last 72 hours. No results for input(s): CKTOTAL, CKMB, TROPONINI in the last 72 hours. No results for input(s): DDIMER in the last 72 hours. No components found for: HGBA1C Lab Results Component Value Date TSH 1.574 07/02/2021 Urine Culture: No results found for this or any previous visit. Objective: Vitals: BP 105/74 Pulse 100 Temp 98 F (36.7 C) (Temporal) Resp 16 Ht 5' 11 (1.803 m) Wt 129 lb 14.4 oz (58.9 kg) SpO2 93% BMI 18.12 kg/m Pulse Ox: SpO2 Av % Min: 93 % Max: 96 % Supplemental O2: O2 Flow Rate (L/min): 4 L/min General appearance: alert and cooperative with exam Lungs: some wheezing Heart: regular rate and rhythm, S1, S2 normal, no murmur, click, rub or gallop Abdomen: soft, NT, BS+ Extremities: no edema Neurologic: No obvious focal neurologic deficits. Assessment Dysphagia Aspiration COPD Chronic respiratory failure on home oxygen 4lit/NC Leucocytosis - improved. procal normal. CXR without infiltrates. Hypovitaminosis B12- on supplement. Malnutrition Diagnosis Date Anxiety COPD (chronic obstructive pulmonary disease) (HCC) Diverticulitis Pancreatitis TIA (transient ischemic attack) Pt stated in s and in 2014 Plan - esophagogram - GI to follow - making a lot of brown phlegm - reviewing CXR - likely has some component of bronchiectasis - c/w pulmonary toileting/BD -am labs -increase activity Advance Directive: Full Code Discharge planning: TBD Francisco Javier Alvarado MD, MD [facility] * Francisco Javier Alvarado MD - 07/05/2021 11:54 AM EDT Images from the original note were not included. Hospitalist Progress Note 07/05/2021 11:54 AM Subjective: Admit Date: 07/01/2021 PCP: No primary care provider on file. Interval History: Seen and examined, No swallowing issue today ADULT DIET; Regular; No Drinking Straws ADULT ORAL NUTRITION SUPPLEMENT; Breakfast, Dinner; Standard High Calorie/High Protein Oral Supplement I/O last 3 completed shifts: In: 10 [I.V.:10] Out: 825 [Urine:825] Date 07/05/21 0000 - 07/05/21 2359 Shift 1548-4860 9268-2130 6090-4008 24 Hour Total INTAKE P.O.(mL/kg/hr) 300 300 I.V.(mL/kg) 10(0.2) 10(0.2) Shift Total(mL/kg) 310(5.3) 310(5.3) OUTPUT Urine(mL/kg/hr) 800 800 Shift Total(mL/kg) 800(13.6) 800(13.6) Weight (kg) 58.9 58.9 58.9 58.9 Patient Vitals for the past 96 hrs (Last 3 readings): Weight 07/05/21 0533 129 lb 14.4 oz (58.9 kg) 07/02/21 1415 130 lb (59 kg) Medications: sodium chloride albuterol sulfate HFA 2 puff Inhalation Daily buPROPion 300 mg Oral QAM guaiFENesin 600 mg Oral BID sertraline 50 mg Oral Daily tiotropium 18 mcg Inhalation Daily sodium chloride flush 5-40 mL IntraVENous 2 times per day enoxaparin 40 mg SubCUTAneous Daily pantoprazole (PROTONIX) 40 mg injection 40 mg IntraVENous Daily ipratropium-albuterol 1 ampule Inhalation Q4H WA cyanocobalamin 1,000 mcg IntraMUSCular Daily Recent Labs 07/03/21 0547 07/04/21 0522 07/05/21 0458 WBC 11.0* 12.5* 12.6* HGB 11.6* 12.5* 12.8* PLT 315 300 284 Recent Labs 07/03/21 0547 07/04/21 0522 07/05/21 0458 NA 138 137 134* K 3.6 4.2 3.7 CL 101 100 100 CO2 32* 32* 29 BUN 21* 17 19* CREATININE 0.95 0.89 0.86 GLUCOSE 105* 110* 112* No results for input(s): AST, ALT, ALB, BILITOT, ALKPHOS in the last 72 hours. No results found for: TRIG, HDL, LDLCALC, CHOL No results found for: PHART, PO2ART, VOC7TCA No results for input(s): INR in the last 72 hours. No results for input(s): CKTOTAL, CKMB, TROPONINI in the last 72 hours. No results for input(s): DDIMER in the last 72 hours. No components found for: HGBA1C Lab Results Component Value Date TSH 1.574 07/02/2021 Urine Culture: No results found for this or any previous visit. Objective: Vitals: BP 100/66 Pulse 89 Temp 98.3 F (36.8 C) (Temporal) Resp 16 Ht 5' 11 (1.803 m) Wt129 lb 14.4 oz (58.9 kg) SpO2 95% BMI 18.12 kg/m Pulse Ox: SpO2 Av.3 % Min: 93 % Max: 97 % Supplemental O2: O2 Flow Rate (L/min): 4 L/min General appearance: alert and cooperative with exam Lungs: clear to auscultation bilaterally Heart: regular rate and rhythm, S1, S2 normal, no murmur, click, rub or gallop Abdomen: soft, non-tender; bowel sounds normal; no masses, no organomegaly Extremities: extremities normal, atraumatic, no cyanosis or edema Neurologic: No obvious focal neurologic deficits. Assessment Dysphagia Aspiration COPD Chronic respiratory failure on home oxygen 4lit/NC Leucocytosis - improved. procal normal. CXR without infiltrates. Hypovitaminosis B12- on supplement. Malnutrition Diagnosis Date Anxiety COPD (chronic obstructive pulmonary disease) (HCC) Diverticulitis Pancreatitis TIA (transient ischemic attack) Pt stated in and in 2014 Plan swallowing better Denies any aspiration or chocking Plan for esophagogram on tuesday -am labs -increase activity Advance Directive: Full Code Discharge planning: TBD Francisco Javier Alvarado MD, MD [facility] * Francisco Javier Alvarado MD - 07/04/2021 4:00 PM EDT Images from the original note were not included. Hospitalist Progress Note 07/04/2021 4:00 PM Subjective: Admit Date: 07/01/2021 PCP: No primary care provider on file. Interval History: Seen and examined, No issues with swallowing. Some cough with occasional expectoration. Afebrile Denies any chest pain, SOB, abdominal pain. ADULT DIET; Regular; No Drinking Straws ADULT ORAL NUTRITION SUPPLEMENT; Breakfast, Dinner; Standard High Calorie/High Protein Oral Supplement I/O last 3 completed shifts: In: - Out: 1600 [Urine:1600] Date 07/04/21 - 07/04/212358 Shift 5186-4727 8658-7013 2095-0483 24 Hour Total INTAKE I.V.(mL/kg) 10(0.2) 10(0.2) Shift Total(mL/kg) 10(0.2) 10(0.2) OUTPUT Urine(mL/kg/hr) 825(1.7) 825 Shift Total(mL/kg) 825(14) 825(14) Weight (kg) 59 59 59 59 Patient Vitals for the past 96 hrs (Last 3 readings): Weight 07/02/21 1415 130 lb (59 kg) Medications: sodium chloride albuterol sulfate HFA 2 puff Inhalation Daily buPROPion 300 mg Oral QAM guaiFENesin 600 mg Oral BID sertraline 50 mg Oral Daily tiotropium 18 mcg Inhalation Daily sodium chloride flush 5-40 mL IntraVENous 2 times per day enoxaparin 40 mg SubCUTAneous Daily pantoprazole (PROTONIX) 40 mg injection 40 mg IntraVENous Daily ipratropium-albuterol 1 ampule Inhalation Q4H WA cyanocobalamin 1,000 mcg IntraMUSCular Daily Recent Labs 07/02/21 0441 07/03/21 0547 07/04/21 0522 WBC 10.8* 11.0* 12.5* HGB 13.0 11.6* 12.5* PLT 330 315 300 Recent Labs 07/02/21 04407/03/21 0547 07/04/21 0522 NA 133* 138 137 K 4.2 3.6 4.2 CL 99 101 100 CO2 30 32* 32* BUN 24* 21* 17 CREATININE 0.99 0.95 0.89 GLUCOSE 87 105* 110* No results for input(s): AST, ALT, ALB, BILITOT, ALKPHOS in the last 72 hours. No results found for: TRIG, HDL, LDLCALC, CHOL No results found for: PHART, PO2ART, UIB8VYN No results for input(s): INR in the last 72 hours. No results for input(s): CKTOTAL, CKMB, TROPONINI in the last 72 hours. No results for input(s): DDIMER in the last 72 hours. No components found for: HGBA1C Lab Results Component Value Date TSH 1.574 07/02/2021 Urine Culture: No results found for this or any previous visit. Objective: Vitals: BP 89/68 Pulse 97 Temp 98.3 F (36.8 C) (Temporal) Resp 16 Ht 5' 11 (1.803 m) Wt 130 lb (59 kg) Comment: 130 lbs SpO2 96% BMI 18.13 kg/m Pulse Ox: SpO2 Av.8 % Min: 95 % Max: 100 % Supplemental O2: O2 Flow Rate (L/min): 4 L/min General appearance: alert and cooperative with exam Lungs: clear to auscultation bilaterally Heart: regular rate and rhythm, S1, S2 normal, no murmur, click, rub or gallop Abdomen: soft, non-tender; bowel sounds normal; no masses, no organomegaly Extremities: extremities normal, atraumatic, no cyanosis or edema Neurologic: No obvious focal neurologic deficits. Assessment Dysphagia Aspiration COPD Chronic respiratory failure on home oxygen 4lit/NC Leucocytosis - improved. procal normal. CXR without infiltrates. Hypovitaminosis B12- on supplement. Malnutrition Diagnosis Date Anxiety COPD (chronic obstructive pulmonary disease) (HCC) Diverticulitis Pancreatitis TIA (transient ischemic attack) Pt stated in and in 2014 Plan swallowing better Denies any aspiration or chocking Plan for esophagogram on tuesday -am labs -increase activity Advance Directive: Full Code Discharge planning: TBD Francisco Javier Alvarado MD, MD [facility] Hospitalist * Dagmar Horne, TRACI - 07/04/2021 10:21 AM EDT Speech Language Pathology Facility/Department: [facility] TELEMETRY Dysphagia Treatment Note NAME: Luis Steele : 1970 Patient Diagnosis(es): Patient Active Problem List Diagnosis COVID-19 COPD with acute exacerbation (HCC) Severe malnutrition (HCC) Dysphagia Allergies: Allergies Allergen Reactions Codeine Tramadol Swelling Tongue swells Onset Date: 07/01/21 Oxygen Level: O2 Device: Nasal cannula Liters of Oxygen: 4 L Current Diet Level: Regular/thin - no straws Compensatory Techniques []Chin tuck [x]Small bolus []Alternate bites/ sips [x]No straws []Liquids by teaspoon only []Swallow x 2 with each bolus []Alternate lemon ice between each bolus [x]Position patient upright []Other Pain: managed by RN S: Patient is upright in bed, agreeable to ST. O: To complete instruction in oral-motor strengthening A: Patient completes Laurita maneuver x10 and effortful swallow x10 with instruction in completion. After several swallows of each, patient requires short break for SOB. Patient re-educated on need for no straws a this time and small sips following MBSS results. Patient instructed to continue exercises several times a day. Recommend continue regular/thin diet with no straws. [] Goal met [x] Progressing as expected [] Progressing slower than expected [] Medical status inhibits participation [] Goals not addressed this session [] Goals revised this session [] Unable to show any progress towards functional goals [] Progress towards functional goal is gradual / fair Routine Education: Results and recommendations from this session were discussed with the patient and RN including: diet recommendations of regular/thin with no straws and oropharyngeal strengthening exercises. Patient shows excellent level of comprehension. Discharge Education: Provided education for the next level of care including continued diet modification and oral motor with continued need for speech therapy involvement. Speech therapist provided written educational resources for patient at bedside. Education provided to patient and RN with Patient and RN expressed comprehension and agree to the dysphagia plan of care. P: Recommend continue regular/thin diet with no straws. ST to follow to continue oral-motor exercise. Time Out: 1014 Session time: 13 minutes * Júnior Jimenez MD - 07/03/2021 12:02 PM EDT Images from the original note were not included. Progress Note SUBJECTIVE: Unable to complete barium esophagram because patient had aspiration during MBS. Otherwise, no events overnight. Medications Current Facility-Administered Medications Medication Dose Route Frequency Provider Last Rate Last Admin albuterol sulfate HFA 108 (90 Base) MCG/ACT inhaler 2 puff 2 puff Inhalation Daily Carla Cox MD buPROPion (WELLBUTRIN XL) extended release tablet 300 mg 300 mg Oral QAM Carla Cox MD 300 mg at 07/03/21 0844 guaiFENesin (MUCINEX) extended release tablet 600 mg 600 mg Oral BID Carla Cox MD 600 mg at 07/03/21 0844 sertraline (ZOLOFT) tablet 50 mg 50 mg Oral Daily Carla Cox MD 50 mg at 07/03/21 0844 tiotropium (SPIRIVA) inhalation capsule 18 mcg 18 mcg Inhalation Daily Carla Cox MD 18 mcg at07/03/21 0904 traZODone (DESYREL) tablet 50 mg 50 mg Oral Nightly PRN Carla Cox MD sodium chloride flush 0.9 % injection 5-40 mL 5-40 mL IntraVENous 2 times per day Carla Cox MD 10 mL at 07/03/21 0850 sodium chloride flush 0.9 % injection 5-40 mL 5-40 mL IntraVENous PRN Carla Cox MD 0.9 % sodium chloride infusion IntraVENous PRN Carla Cox MD enoxaparin (LOVENOX) injection 40 mg 40 mg SubCUTAneous Daily Carla Cox MD ondansetron (ZOFRAN-ODT) disintegrating tablet 4 mg 4 mg Oral Q8H PRN Carla Cox MD Or ondansetron (ZOFRAN) injection 4 mg 4 mg IntraVENous Q6H PRN Carla Cox MD polyethylene glycol (GLYCOLAX) packet 17 g 17 g Oral Daily PRN Carla Cox MD acetaminophen (TYLENOL) tablet 650 mg 650 mg Oral Q6H PRN Carla Cox MD 650 mg at 07/02/212035 Or acetaminophen (TYLENOL) suppository 650 mg 650 mg Rectal Q6H PRN Carla Cox MD aluminum & magnesium hydroxide-simethicone (MAALOX) 200-200-20 MG/5ML suspension 30 mL 30 mL Oral Q6H PRN Carla Cox MD pantoprazole (PROTONIX) 40 mg in sodium chloride (PF) 10 mL injection 40 mg IntraVENous Daily Carla Cox MD 40 mg at 07/03/21 0843 ipratropium-albuterol (DUONEB) nebulizer solution 1 ampule 1 ampule Inhalation Q4H WA Carla Cox MD 1 ampule at 07/03/21 0849 cyanocobalamin injection 1,000 mcg 1,000 mcg IntraMUSCular Daily Kapil GarcíaKARSTEN - EMPLOYMENT OFFICER 1,000 mcg at 07/03/21 0844 OBJECTIVE VITALS: BP 111/76 Pulse 88 Temp 97.3 F (36.3 C) (Temporal) Resp 18 Ht 5' 11 (1.803 m) Wt130 lb (59 kg) Comment: 130 lbs SpO2 92% BMI 18.13 kg/m TEMPERATURE: Current - Temp: 97.3 F (36.3 C); Max - Temp Av.6 F (36.4 C) Min: 97.3 F (36.3 C) Max: 97.9 F (36.6 C) RESPIRATIONS RANGE: Resp Av.7 Min: 18 Max: 20 PULSE RANGE: Pulse Av.5 Min: 88 Max: 115 BLOOD PRESSURE RANGE: Systolic (24hrs), Av , Min:111 , Max:118 ; Diastolic (24hrs), Av, Min:76, Max:80 PULSE OXIMETRY RANGE: SpO2 Av.7 % Min: 92 % Max: 97 % 24HR INTAKE/OUTPUT: Intake/Output Summary (Last 24 hours) at 07/03/2021 1202 Last data filed at 07/03/2021 0510 Gross per 24 hour Intake Output 1600 ml Net -1600 ml GENERAL: Pleasant and NAD. HEENT: NCAT, PERRLA, EOMI, Scleral anicteric. Oropharhynx clear with no erythema or exudate. Neck supple, no cervical LAD or thyromegaly. CV: RRR, NL S1/S2, no murmurs. Distal pulses palpable and equal b/l. LUNGS: CTA b/l. No W/R/R. Abdomen: + BS, soft, non-tender and non-distended. No hepatosplenomegaly. No mass felt. No rebound or guarding. No hernia. Musculoskeletal: Strength 5/5 in all exts. No joint tenderness or effusions in LEs. Neurologic: A&O x 3, CN II-XII grossly intact. No asterixis. Non-focal. Psych: Normal affect and speech. Data Recent blood work, radiologic study and endoscopic study were reviewed with the patient. CBC: Recent Labs 07/01/21 0510 07/01/21 0510 07/02/21 0441 07/03/21 0547 WBC 22.1* < > 10.8* 11.0* HGB 14.3 -- 13.0 11.6* HCT 42.9 -- 39.5* 35.7* PLT 460* < > 330 315 < > = values in this interval not displayed. HEPATIC: No results for input(s): AST, ALT, ALB, BILITOT, ALKPHOS in the last 72 hours. LIPASE/AMYLASE: No results for input(s): AMYLASE, LIPASE in the last 72 hours. LACTATE: Recent Labs 07/01/21 0555 LACTA 1.1 BNP: No results for input(s): BNP in the last 72 hours. INR: No results for input(s): INR in the last 72 hours. ASSESSMENT AND PLAN 1. Dysphagia - new onset since Tuesday (only phlegm), denies dysphagia to solids/liquids, aspiration with MBS 2. COPD - on 4L O2 - not able to complete esophagram due to aspiration on MBS, will try to re- evaluate on Tuesday per speech - once esophagram is completed, if any abnormality, please page back - appreciate speech recommendations * Francisco Javier Alvarado MD - 07/03/2021 11:00 AM EDT Images from the original note were not included. Hospitalist Progress Note 07/03/2021 11:00 AM Subjective: Admit Date: 07/01/2021 PCP: No primary care provider on file. Interval History: admitted for dysphagia. Normal CT soft tissue neck. Modified barium swallow with aspiration- esophagogram postponed. GI following. Today: says eating better. No cough or aspiration on swallowing. Afebrile overnight. ADULT DIET; Regular; No Drinking Straws ADULT ORAL NUTRITION SUPPLEMENT; Breakfast, Dinner; Standard High Calorie/High Protein Oral Supplement I/O last 3 completed shifts: In: - Out: 1900 [Urine:1900] Date 07/03/21 0000 - 07/03/21 2359 Shift [id number] [id number] 24 Hour Total INTAKE Shift Total(mL/kg) OUTPUT Urine(mL/kg/hr) 900(1.9) 900 Shift Total(mL/kg) 900(15.3) 900(15.3) Weight (kg) 59 59 59 59 Patient Vitals for the past 96 hrs (Last 3 readings): Weight 07/02/21 1415 130 lb (59 kg) Medications: sodium chloride 75 mL/hr at 07/02/21 1751 sodium chloride albuterol sulfate HFA 2 puff Inhalation Daily buPROPion 300 mg Oral QAM guaiFENesin 600 mg Oral BID sertraline 50 mg Oral Daily tiotropium 18 mcg Inhalation Daily sodium chloride flush 5-40 mL IntraVENous 2 times per day enoxaparin 40 mg SubCUTAneous Daily pantoprazole (PROTONIX) 40 mg injection 40 mg IntraVENous Daily ipratropium-albuterol 1 ampule Inhalation Q4H WA cyanocobalamin 1,000 mcg IntraMUSCular Daily Recent Labs 07/01/21 0510 07/02/21 0441 07/03/21 0547 WBC 22.1* 10.8* 11.0* HGB 14.3 13.0 11.6* PLT 460* 330 315 Recent Labs 07/01/21 0510 07/02/21 0441 07/03/21 0547 NA 136 133* 138 K 5.6* 4.2 3.6 CL 98 99 101 CO2 32* 30 32* BUN 18* 24* 21* CREATININE 0.99 0.99 0.95 GLUCOSE 141* 87 105* No results for input(s): AST, ALT, ALB, BILITOT, ALKPHOS in the last 72 hours. No results found for: TRIG, HDL, LDLCALC, CHOL No results found for: PHART, PO2ART, ZFH2VVY No results for input(s): INR in the last 72 hours. Recent Labs 07/01/21 0510 TROPONINI 0.017 No results for input(s): DDIMER in the last 72 hours. No components found for: HGBA1C Lab Results Component Value Date TSH 1.574 07/02/2021 Urine Culture: No results found for this or any previous visit. Objective: Vitals: BP 111/76 Pulse 88 Temp 97.3 F (36.3 C) (Temporal) Resp 18 Ht 5' 11 (1.803 m) Wt130 lb (59 kg) Comment: 130 lbs SpO2 92% BMI 18.13 kg/m Pulse Ox: SpO2 Av.7 % Min: 92 % Max: 97 % Supplemental O2: O2 Flow Rate (L/min): 4 L/min General appearance: alert and cooperative with exam Lungs: clear to auscultation bilaterally Heart: s1,s2,mo Abdomen: soft, NT, BS+ Extremities: no edema Neurologic: No obvious focal neurologic deficits. Assessment Dysphagia Aspiration COPD Chronic respiratory failure on home oxygen 4lit/NC Leucocytosis - improved. procal normal. CXR without infiltrates. Hypovitaminosis B12- on supplement. Malnutrition Diagnosis Date Anxiety COPD (chronic obstructive pulmonary disease) (HCC) Diverticulitis Pancreatitis TIA (transient ischemic attack) Pt stated in and in 2014 Plan - continue with current diet - Gi following Labs in am. D/c iv fluid -am labs -increase activity Advance Directive: Full Code Discharge planning: TBD Francisco Javier Alvarado MD, MD Rounding Hospitalist * TRACI Benoit - 07/03/2021 10:04 AM EDT Speech Language Pathology Facility/Department: [facility] Dysphagia Treatment Note NAME: Luis Steele : 1970 Allergies: Allergies Allergen Reactions Codeine Tramadol Swelling Tongue swells O2 Device: Nasal cannula Liters of Oxygen: 4 L Current Diet Level: Regular diet with thin liquids Compensatory Techniques []Chin tuck [x]Small bolus []Alternate bites/ sips [x]No straws []Liquids by teaspoon only [x]Swallow x 2 every few boli [x]External pacing [x]Position patient upright []Other Pain:no indication. S: Pt was sleeping. Easily arouse. Breakfast came when in pt's room. O: Education MBS, review swallowing strategies, instruct exercises. A: Pt with decreased understanding of why swallow was so difficult and why his white count is elevated. He is concerned given his history of lung problems and prone to excalation in deficits. Deferred further questions to / REYNALDO. He will ask when they round today. Pt without recall of labs this am. Labs noted. Pt instructed in airway closure exercise and able to demonstrate. Open mouth, exhale, halt exhalation, HOLD 2-3 seconds as tolerated. Long rest breaks between to ensure stable respiratory function. Also instruct in tongue base exercise- bite/swallow and effortful swallow. Able to demonstrate. Review MBS with pt to point out undercoating of vocal cords with thin liquids. CHIN tuck did not assist. Best strategies are single sips. Residuals; benefit by reswallow. Must keep sips/drinks small to maximize airway protection. No immediate cough to vocal cord contact. [] Goal met [x] Progressing as expected [] Progressing slower than expected [] Medical status inhibits participation [] Goals not addressed this session [] Goals revised this session [] Unable to show any progress towards functional goals [] Progress towards functional goal is gradual / fair Routine Education: Results and recommendations from this session were discussed with the patient including: diet recommendations (Reg, single small drinks thin), swallowing strategies/compensatory techniques (see above), oropharyngeal strengthening exercises and potential next steps including additional diagnostic testing and treatment goals in the dysphagia plan of care. Patient shows functional level of comprehension. Discharge Education: Provided education for the next level of care including continued diet modification and swallowing strategies (see above), oral motor or oropharyngeal exercises, and continued need for speech therapyinvolvement. Speech therapist provided written educational resources for patient at bedside. Education provided to patient Patient expressed or demonstrated comprehension and agree to the dysphagia plan of care. P: Continue dysphagia poc and strengthening. F/u on esophagram if pt is able to tolerate. TRACI Benoit M.A.[facility]/[employer] SALES REPRESENTATIVE Time session ended: 955 Total session minutes: 25 * Aminata Biswas RD, LD - 07/02/2021 3:06 PM EDT Comprehensive Nutrition Assessment Type and Reason for Visit: Initial,Positive Nutrition Screen,Consult (consult po supplements=has dysphagia mbss) Nutrition Recommendations/Plan: 1) suggest to continue regular diet- no straws - small sips liquids- as tolerated to per [employer] SALES REPRESENTATIVE 2)per MNT protocol, will Initiate witt Ensure Enlive/Plus Bid ( provides 350 kcals,13- 20g protein per serving. 3)continue medications Per MD 4) Please document PO intakes-diet and ONS- consistently in the flowsheet to better assess intake adequacy. 5)suggest recheck vit d levels- history of deficiency (16) and restart if indicated 6)Monitor labs, status, intakes,wts to reassess. Follow up at least weekly Malnutrition Assessment: Malnutrition Status: Severe malnutrition (07/02/21 1503) Context: Social/Environmental Circumstances Findings of the 6 clinical characteristics of malnutrition: Energy Intake: 50% or less estimated energy requirements for 1 month or longer (4.8% wt loss 1 mo and 12.75% wt loss in 7 mos averaging>10% in 6 mos) Weight Loss: Greater than 10% over 6 months Body Fat Loss: Severe body fat loss Orbital,Triceps Muscle Mass Loss: Severe muscle mass loss Temples (temporalis),Hand (interosseous),Scapula (trapezius) Fluid Accumulation: No significant fluid accumulation Convertible Sofa Bedspring Tester Strength: (normal studio technician video operator but very intense wired) Nutrition Assessment: PER MD-50 y.o. male with past medical history of COPD on home oxygen therapy HLD below who presentswith chief complaint listed above . Patient is a transfer from [place] . Patient was seen there due to difficulty swallowing. Patient received 1mg of Epi and Benadryl en route to the ED He states that it started on Tuesday . He reports no problems with eating . He states that he has no issues with liquids or solids. He reports no fever chills choking or coughing . He states that it feels like phlegm is stuck in his throat . He denies trauma to his neck but states that in 2014 he had a trach placed due to MRSA pneumonia He reports no nausea vomiting abdominal pain weight loss diarrhea sore throat or rashes . He states that he was recently placed on Wellbutrin to quit smoking and he thoughtthat was the cause ., .In the ED patient was afebrile resp 25 HR 109 BP 139/85 97% on 4L NC . Lab data reveal sodium 136 potassium 5.6 creatinine 5.6 glucose 141 Trop 0.017 EKG sinus tachycardia HR 101 WBC 22.1 HGB 14.3 PLT [address] soft tissue neck neg UA neg lactic acid 1.1.Will admit for further evaluation and management.CT soft tissue neck negative CXR neg WBC 22.1 rule out achalasia structural abnormality strictures . Admit observation NPO IVF GI consult barium esophogram [employer] SALES REPRESENTATIVE consult Nutrition Related Findings: per loading unit operator seating-. +vocal cord penetration and flash and trace aspiration of larger cup drinks of thin liquids. Chin tuck did NOT prevent aspiration. 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 - STRONG CODE CLERK, on b12, inhaler,wellbutrin, inhalers, on ppi, zoloft, wellbutrin Wound Type: None Current Nutrition Intake & Therapies: Average Meal Intake: NPO Average Supplements Intake: NPO ADULT DIET; Regular; No Drinking Straws ADULT ORAL NUTRITION SUPPLEMENT; Breakfast, Dinner; Standard High Calorie/High Protein Oral Supplement Anthropometric Measures: Height: 5' 11 (180.3 cm) [place] Body Weight (IBW): 172 lbs (78 kg) Current Body Weight: 130 lb (59 kg), 75.6 % IBW. Weight Source: Standing Scale (07/02/21) Current BMI (kg/m2): 18.1 Usual Body Weight: 149 lb (67.6 kg) (11/19/20 and 05/29/21 was 135 lbs) % Weight Change (Calculated): -12.8 BMI Categories: Underweight (BMI less than 18.5) Estimated Daily Nutrient Needs: Energy Requirements Based On: Kcal/kg Weight Used for Energy Requirements: Current Energy (kcal/day): 30-35 or 3316-2548 Weight Used for Protein Requirements: Current Protein (g/day): 1.2-1.8 or 94-141 Method Used for Fluid Requirements: 1 ml/kcal Fluid (ml/day): or per md Nutrition Diagnosis: Severe malnutrition,In context of social or environmental circumstances related to catabolic illness,other (comment),psychological cause or life stress (copd - on o2-multiple family stressors- in past6 mos- loss of significant other,mothers and fathers new ca dx- depression) as evidenced by severe muscle loss,severe loss of subcutaneous fat,weight loss greater than or equal to 10% in 6 months (12.75 in 7 mos and 4.8 % in 1 mo and ~5% in 1 mo) Swallowing difficulty related to other (comment) (aspirates thin liquids) as evidenced by other (comment) (MBBS ,[employer] SALES REPRESENTATIVE eval) Nutrition Interventions: Food and/or Nutrient Delivery: Continue Current Diet,Start Oral Nutrition Supplement (diet per loading unit operator seating) Nutrition Education/Counseling: Education needed (per speech and did discuss muscle maintenance) Coordination of Nutrition Care: Continue to monitor while inpatient,Feeding Assistance/Environment Change,Speech Therapy Plan of Care discussed with: patient and rn Goals: Goals: PO intake 75% or greater (and 100% of ONS) Nutrition Monitoring and Evaluation: Behavioral-Environmental Outcomes: None Identified Food/Nutrient Intake Outcomes: Diet Advancement/Tolerance,Food and Nutrient Intake,Supplement Intake Physical Signs/Symptoms Outcomes: Biochemical Data,Chewing or Swallowing,GI Status,Fluid Status or Edema,Hemodynamic Status,Meal Time Behavior,Nutrition Focused Physical Findings,Skin,Weight Discharge Planning: Continue current diet,Continue Oral Nutrition Supplement Aminata Biswas RD, WANG Contact:*[phone] * TRACI Benoit - 07/02/2021 2:15 PM EDT Speech Language Pathology A Modified Barium Swallow Study (MBSS) evaluation was completed. The full Speech Pathology report is located under the Chart Review section of [facility]. Click on the Procedure tab to locate the complete Speech Pathologist MBSS results and recommendations titled [employer] SALES REPRESENTATIVE video swallow on this date. +vocal cord penetration and flash and trace aspiration of larger cup drinks of thin liquids. Chin tuck did NOT prevent aspiration. Recommended diet: Regular diet with single-SMALL cup drinks Medications in pudding Double swallow/alternate drinks with bites TRACI Benoit M.A. [facility] SALES REPRESENTATIVE * TRACI Benoit - 07/02/2021 10:55 AM EDT Speech Language Pathology Facility/Department: [facility] CLINICAL BEDSIDE SWALLOW EVALUATION Having reviewed the treatment plan and goals for this patient, I certify that the plan below plan is medically necessary and appropriate. NAME: Luis Steele : 1970 ADMISSION DATE: 07/01/2021 ADMITTING DIAGNOSIS: has COVID-19; COPD with acute exacerbation (HCC); Severe malnutrition (HCC); and Dysphagia on their problem list. ONSET DATE: 07/01/21 HPI: 50 y.o. male with past medical history of COPD on home oxygen therapy HLD below who presents with chief complaint listed above . Patient is a transfer from [place] . Patient was seen there dueto difficulty swallowing. Patient received 1mg of Epi and Benadryl en route to the ED He states that it started on Tuesday . He reports no problems with eating . He states that he has no issues with liquids or solids. He reports no fever chills choking or coughing . He states that it feels like phlegm is stuck in his throat . He denies trauma to his neck but states that in 2014 he had a trach placed due to MRSA pneumonia He reports no nausea vomiting abdominal pain weight loss diarrhea sore throat or rashes . He states that he was recently placed on Wellbutrin to quit smoking and he thought that was the cause ., .In the ED patient was afebrile resp 25 HR 109 BP 139/85 97% on 4L NC . Lab data reveal sodium 136 potassium 5.6 creatinine 5.6 glucose 141 Trop 0.017 EKG sinus tachycardia HR 101WBC 22.1 HGB 14.3 PLT [address] soft tissue neck neg UA neg lactic acid 1.1 Will admit for further evaluation and management. Recent Chest Xray/CT of Chest: ( Date 07/01/21 ) CONCLUSION: Unremarkable CT of the neck. No evidence of deep space infection. Date of Eval: 07/02/2021 Evaluating Therapist: TRACI Benoit Current Diet level: Current Diet : NPO Primary Complaint Patient Complaint: something get stuck in his throat it feels like mucous Pain: Pain Assessment Pain Assessment: None - Denies Pain Pain Level: 0 Reason for Referral Luis Steele was referred for a bedside swallow evaluation to assess the efficiency of his swallowfunction, identify signs and symptoms of aspiration and make recommendations regarding safe dietaryconsistencies, effective compensatory strategies, and safe eating environment. Impression Dysphagia Impression : Recommend Regular diet with thin liquids. Increase fluid intake to assist with 'xerostomia' and sticking thick mucous. Often feels 'mucous' sticking mid sternum and he can't always get it up. Coughing before during and after exam. h/o trach after prolonged intubation d/t COPDand respiratory failure 2014. Treatment Plan Requires [employer] SALES REPRESENTATIVE Intervention: Yes Duration of Treatment: 1 week Recommended Diet and Intervention Regular diet with thin liquids Alternate liquids and solids throughout. Start with liquid; end with liquids. Recommended Form of Meds: PO Recommendations: Modified barium swallow study Therapeutic Interventions: Patient/Family education Compensatory Swallowing Strategies Compensatory Swallowing Strategies : Set up assist;Upright as possible for all oral intake;Alternate solids and liquids Treatment/Goals Short-term Goals Goal 1: Pt will consume regular diet with thin liquds and use swallowing strategies to maximize clearing without increased respiratory distress. Goal 2: Pt will participate in further instrumental testing to r/o pharyngeal dysphagia. General Chart Reviewed: Yes Subjective Subjective: Pt alert and cooperative and willing to participate in assessment. congested coughing throughout. Not always productive. O2 Device: Nasal cannula Liters of Oxygen: 4 L Communication Observation: Functional Dentition: Adequate Patient Positioning: Upright in bed Baseline Vocal Quality: Normal Prior Dysphagia History: h/o trach with prolonged intubation and trach 2015 per pt. Consistencies Administered: Regular;Pureed;Thin - cup;Thin - straw;Ice Chips Vision/Hearing Vision Vision: Within Functional Limits Hearing Hearing: Within functional limits Oral Motor Deficits Oral/Motor Gag: No Impairment Oral Phase Dysfunction Oral Phase Oral Phase - Comment: Mastication and oral transit is overtly functional. Pt with c/o increased effort to swallow, Like flap is tight Indicators of Pharyngeal Phase Dysfunction Pharyngeal Phase Pharyngeal Phase: +laryngeal elevation. Stated sensation of mucous in throat. Reswallows to attemptto clear or coughs. Congested sounding cough. 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 Hospitalist Progress Note 07/02/2021 10:33 AM [id number]: Please reach me on [employer] patient care issues. [phone]: Please page IMS night Hospitalist for any issues. Subjective: Admit Date: 07/01/2021 PCP: No primary care provider on file. Room#: 149/1491 Follow up on patient admitted after midnight. Patient admitted for dysphagia. Plan for MBS/Esophagram. GI/ST following. Noted borderline/low B12 levels. Hgb ok. Additional w/u ordered in AM. Needs humidifier operator eval d/t malnutrition also. He is on 4L NC chronically d/t COPD. Past Medical History: Diagnosis Date Anxiety COPD (chronic obstructive pulmonary disease) (HCC) Diverticulitis Pancreatitis TIA (transient ischemic attack) Pt stated in and in 2014 All labs, diagnostic studies, imaging, and progress notes reviewed. KARSTEN Green CNP Division of Hospitalist Medicine Inpatient Medical Services/[facility] documented in this encounterSUMMA Work Phone: [phone] Hospital Discharge instructions Patient Education 06/21/2021 00:07:22 COPD Flare COPD Flare You have had a flare-up of your COPD. COPD (chronic obstructive pulmonary disease) is a common lung disease. It causes your airways to get irritated and narrower. This makes it harder for you to breathe. Emphysema and chronic bronchitis are both types of COPD. This is a long-term (chronic) condition. This means you always have it. Sometimes it gets worse. When this happens, it is called a flare-up. Symptoms of COPD People with COPD may have symptoms most of the time. In a flare-up, your symptoms get worse. These symptoms may mean you are having a flare-up: Shortness of breath, shallow or rapid breathing, or wheezing that gets worse Lung infection Cough that gets worse More mucus, thicker mucus or mucus of a different color Tiredness, less energy, or trouble doing your normal activities Fever Chest tightness Your symptoms don t get better even when you use your normal medicines, inhalers, and nebulizer Trouble talking You feel confused Causes of flare-ups Unfortunately, a flare-up can happen even if you did everything right. And even if you followed your healthcare provider s instructions. Some causes of flare- ups are: Smoking or secondhand smoke Colds, the flu, or respiratory infections Air pollution Sudden change in the weather Dust, irritating chemicals, or strong fumes Not taking your medicines as prescribed Home care Here are some things you can do at home to treat a flare-up: Try not to panic. This makes it harder to breathe, and keeps you from doing the right things. Don t smoke or be around others who are smoking. Try to drink more fluids than normal during a flare-up, unless your healthcare provider has told you not to because of heart and kidney problems. More fluids can help loosen the mucus. Use your inhalers and nebulizer, if you have one, as you have been told to. If you were given antibiotics, take them until they are used up or your provider tells you to stop.It s important to finish the antibiotics, even though you feel better. This will make sure the infection has cleared. If you were given prednisone or another steroid, finish it even if you feel better. Preventing a flare-up Flare-ups happen. But the best way to treat one is to prevent it before it starts. Here are some pointers: Don t smoke or be around others who are smoking. Take your medicines as discussed with your healthcare provider. Talk with your provider about getting a flu shot every year. Also find out if you need a pneumonia shot. If there is a weather advisory warning to stay indoors, try to stay inside when possible. Try to eat healthy, exercise, and get plenty of sleep. Try to stay away from things that normally set you off. These include dust, chemical fumes, hairsprays, or strong perfumes. Follow-up care Follow up with your healthcare provider, or as advised. If a culture was done, you will be told if your treatment needs to be changed. You can call as directed for the results. If X-rays were done, you will be told of any new findings that may affect your care. Call 911 Call 911 if any of these occur: You have trouble breathing You feel confused or it s hard to wake you up You faint or lose consciousness You have a rapid heart rate You have new pain in your chest, arm, shoulder, neck, or upper back When to seek medical advice Call your healthcare provider right away if any of these occur: Wheezing or shortness of breath gets worse You need to use your inhalers more often than normal without relief Fever of 100.4 F (38 C) or higher, or as directed by your healthcare provider Coughing up lots of dark-colored or bloody mucus (sputum) Chest pain with each breath You don't start to get better within 24 hours Swelling of your ankles gets worse Dizziness or weakness [id number] [employer]. [address] [place] [address]. All rights reserved. This information is not intended as a substitute for professional medical care. Always follow yourhealthcare professional's instructions. Follow Up Care 06/20/2021 22:40:22 With:ANTWAN BUCHANAN Address: [address] [place] [address]- Business (1) When:2-4 days [facility] 04-08-2022 Miscellaneous Notes* Telephone Encounter - Steff Gruber APRN.CNP - 06/19/2021 11:04 AM EDT See other [employer] message from same day, 06/11/2021. Steff Gruber APRN.CNP * Telephone Encounter - Radha Greer Ma - 06/11/2021 11:56 AM EDT Please see patients message Radha Greer Ma documented [facility]-2022 Miscellaneous Notes* Telephone Encounter - Shelia Mahmood APRN.CNP - 06/11/2021 4:16 PM EDT Pulm consult placed. Shelia Mahmood APRN.CNP * Telephone Encounter - Dayami El RN - 06/11/2021 11:17 AM EDT Pt called and is notified of providers results and instructions. Pt voices understanding. Pt is willing to to have a follow up with Pulmonology. Dayami El RN * Telephone Encounter - Fabi Hughes LPN - 06/11/2021 9:23 AM EDT Left message to return call. * Telephone Encounter - Antwan Buchanan DO - 06/10/2021 10:38 PM EDT Please inform patient that his CT chest shows IMPRESSION: Centrilobular emphysema. Bronchiectasis in the upper and lower lobes with moderate mucous impaction within the lower lobe bronchi. Pulmonary nodularity. Would recommend repeat CT chest in 12 months for follow up of the 4.7 mm nodule in the lung. Also would recommend need to quit smoking and mucinex 600 mg twice a day for the mucous. Needs to be using his inhalers as prescribed and considering follow up with Therapeutic Program Worker Antwan Buchanan DO [facility] History of Present illness Narrative* RT Shanon(Selam) - 06/10/2021 2:00 PM EDT Radiology Service Progress Note PATIENT NAME: Luis Steele II DATE OF SERVICE: June 10, 2021 TIME: 3:46 PM PATIENT IDENTITY VERIFICATION COMPLETED USING TWO (2) IDENTIFIERS: Name and Date of confirmedby patient verbally. FALL SCREENING: Has the patient had 2 falls in the last year or 1 fall with injury or currently using an Ambulatory Assistive Device (Walker, Cane, Wheelchair, Crutches, etc.)? No PATIENT GENDER DATA: Male PATIENT RELEVANT IMPLANT DATA REVIEWED: Not Applicable RADIOLOGY DEPARTMENT: CT; Exam(s) Completed: Chest PERIPHERAL IV DATA: Not applicable SIGNED BY: RT Vanita(Selam) June 10, 2021 3:46 PM documented in this encounterK[facility]22 NoteHospitalist Discharge Summary Luis Steele : 1970 Admit date: 04/04/2021 Discharge date: 04/13/2021 Admitting Physician: Lm Zaays MD Primary Care Physician: No primary care provider on file. Visit Status: Admission Code Status: Full Code Discharge Diagnoses: 1. Acute on chronic hypoxic respiratory failure secondary to COVID-19 pneumonia 2. COVID-19 pneumonia 3. Thrombocytopenia-resolved 4. Vitamin D deficiency-continue on vitamin D 50,000 international units q. Weekly 5. COPD 6. Severely undernourished for metabolic demand Diagnosis Date ? COPD (chronic obstructive pulmonary disease) (HCC) ? Diverticulitis ? Pancreatitis Procedures: None Hospital Course: Patient admitted for acute hypoxic respiratory insufficiency secondary to COVID-19 pneumonia. Treated with remdesivir, Decadron Lovenox. Required supplemental oxygen. Home O2 evaluation was consistent with patient qualifying for 4 L with ambulation. Patient discharged home in stable condition with Decadron therapy. See discharge diagnoses list above and medication adjustments below in med rec.The patient is discharged in improved and stable condition. Consults: None Discharge Instructions: Diet: ADULT DIET; Regular ADULT ORAL NUTRITION SUPPLEMENT; Lunch, Dinner; Standard High Calorie/High Protein Oral Supplement Activity: as tolerated Recommended Outpatient Tests: Disposition: Patient discharged in stable condition to Home. Greater than 30 minutes spent discharging the patient and coming up with patient discharge plan. Vitals: BP 116/77 Pulse 72 Temp 98.1 ?F (36.7 ?C) (Temporal) Resp 18 Ht 5' 11 (1.803 m) Wt 130 lb (59 kg) SpO2 96% BMI 18.13 kg/m? Pulse Ox: SpO2 Av % Min: 94 % Max: 96 % Supplemental O2: O2 Flow Rate (L/min): 3 L/min General appearance: No apparent distress, appears stated age and cooperative with exam HEENT: Normal cephalic, atraumatic without obvious deformity. Pupils equal, round, and reactive to light. Extra ocular muscles intact. Conjunctivae/corneas clear. Neck: Supple, with full range of motion. No jugular venous distention. Trachea midline. No lymphadenopathy. Respiratory: Normal respiratory effort. Clear to auscultation, bilaterally without Rales/Wheezes/Rhonchi. Cardiovascular: Regular rate and rhythm with normal S1/S2 without murmurs, rubs or gallops. Abdomen: Soft, non-tender, non-distended with normal bowel sounds. No rebound or guarding. Musculoskeletal: No clubbing, cyanosis or edema bilaterally. Full range of motion without deformity. Skin: Skin color, texture, turgor normal. No rashes or lesions. Neurologic: Neurovascularly intact without any focal sensory/motor deficits. Cranial nerves: II-XII intact, grossly non-focal. Discharge Medications: Medication List START taking these medications dexamethasone 6 MG tablet Commonly known as: DECADRON Take 1 tablet by mouth daily (with breakfast) for 5 days guaiFENesin 600 MG extended release tablet Commonly known as: MUCINEX Take 1 tablet by mouth 2 times daily sertraline 25 MG tablet Commonly known as: ZOLOFT Take 1 tablet by mouth daily traZODone 50 MG tablet Commonly known as: DESYREL Take 1 tablet by mouth nightly vitamin D 1.25 MG (11813 UT) Caps capsule Commonly known as: ERGOCALCIFEROL Take 1 capsule by mouth once a week Start taking on: April 19, 2021 Where to Get Your Medications These medications were sent to [address] - P [phone] - F [phone] [place] [id number] ? dexamethasone 6 MG tablet ? guaiFENesin 600 MG extended release tablet ? sertraline 25 MG tablet ? traZODone 50 MG tablet ? vitamin D 1.25 MG (21659 UT) Caps capsule Recommended Follow-up: [facility] [address] [place] [address] [address] [facility] [address] Schedule an appointment as soon as possible for a visit in 1 week Hospital follow up Readmission Risk Risk of Unplanned Readmission: 14 Complexity of Follow up: [] Moderate Complexity: follow up within 7-14 calendar days (79698) [x] Severe Complexity: follow up within 7 calendar days (55207) Follow up Testing, Pending results or Referrals at Transitional Care Visit: [x] yes [] no Instructions to MA: Please call patient on day after discharge (must document patient contacted within 2 business days of discharge). Follow up questions for MA: 1. Did you get medications filled and taking them as instructed from discharge? 2. Are you following your discharge instructions from your hospital stay? 3. Please confirm patient is scheduled for a follow up appointment within the above time frame. Signed: Gene Jara MD Division of Hospitalist Medicine Inpatient Medical Services 04/13/2021, 11:54 [facility]06-25-2021 History of Present illness Narrative* Rachelle Mckeon RT(R) - 09/05/2020 10:40 AM EDT Radiology Service Progress Note PATIENT NAME: Luis Steele II DATE OF SERVICE: September 05, 2020 TIME: 10:42 AM PATIENT IDENTITY VERIFICATION COMPLETED USING TWO (2) IDENTIFIERS: Name and Date of confirmedby patient verbally. FALL SCREENING: Has the patient had 2 falls in the last year or 1 fall with injury or currently using an Ambulatory Assistive Device (Walker, Cane, Wheelchair, Crutches, etc.)? No PATIENT GENDER DATA: Male PATIENT RELEVANT IMPLANT DATA REVIEWED: Not Applicable RADIOLOGY DEPARTMENT: General X-ray: Exam(s) Completed: Chest X-Ray PERIPHERAL IV DATA: Not applicable SIGNED BY: RT Valentine(R) September 05, 2020 10:42 AM documented in this encounterK[facility]06[facility]29-2015 History of Past illness Narrative* Problem Noted Date Resolved Date Elevated troponin 09/09/2014 09/10/2014 Overview: 4. Elevated Troponin -EKG findings noted above -OSH Troponin mildly elevated -Will check repeat CE Hypokalemia 09/09/2014 05/01/2018 Overview: 5. Hypokalemia - Resolved Septic shock 06/14/2014 05/01/2018 NANCY (acute kidney injury) 06/14/20142018 MRSA pneumonia 06/13/2014 05/01/2018 documented as of this encounter (statuses as of 06/11/2021) [facility] of [facility] illness Narrative* Problem Noted Date Resolved Date Elevated troponin 09/09/2014 09/10/2014 Overview: 4. Elevated Troponin -EKG findings noted above -OSH Troponin mildly elevated -Will check repeat CE Hypokalemia 09/09/2014 05/01/2018 Overview: 5. Hypokalemia - Resolved Septic shock 06/14/2014 05/01/2018 NANCY (acute kidney injury) 06/14/20142018 MRSA pneumonia 06/13/2014 05/01/2018 documented as of this encounter (statuses as of 06/15/2021) [facility] of [facility] illness Narrative* Problem Noted Date Resolved Date Elevated troponin 09/09/2014 09/10/2014 Overview: 4. Elevated Troponin -EKG findings noted above -OSH Troponin mildly elevated -Will check repeat CE Hypokalemia 09/09/2014 05/01/2018 Overview: 5. Hypokalemia - Resolved Septic shock 06/14/2014 05/01/2018 NANCY (acute kidney injury) 06/14/20142018 MRSA pneumonia 06/13/2014 05/01/2018 documented as of this encounter (statuses as of 06/19/2021) [facility] of [facility] illness Narrative* Problem Noted Date Resolved Date Elevated troponin 09/09/2014 09/10/2014 Overview: 4. Elevated Troponin -EKG findings noted above -OSH Troponin mildly elevated -Will check repeat CE Hypokalemia 09/09/2014 05/01/2018 Overview: 5. Hypokalemia - Resolved Septic shock 06/14/2014 05/01/2018 NANCY (acute kidney injury) 06/14/20142018 MRSA pneumonia 06/13/2014 05/01/2018 documented as of this encounter (statuses as of 07/16/2021) [facility] Narrative* Problem Noted Date Resolved Date Elevated troponin 09/09/2014 09/10/2014 Overview: 4. Elevated Troponin -EKG findings noted above -OSH Troponin mildly elevated -Will check repeat CE Hypokalemia 09/09/2014 05/01/2018 Overview: 5. Hypokalemia - Resolved Septic shock 06/14/2014 05/01/2018 NANCY (acute kidney injury) 06/14/20142018 MRSA pneumonia 06/13/2014 05/01/2018 documented as of this encounter (statuses as of 07/16/2021) [address]29-2015 History of Past illness Narrative* Problem Noted Date Resolved Date Elevated troponin 09/09/2014 09/10/2014 Overview: 4. Elevated Troponin -EKG findings noted above -OSH Troponin mildly elevated -Will check repeat CE Hypokalemia 09/09/2014 05/01/2018 Overview: 5. Hypokalemia - Resolved Septic shock 06/14/2014 05/01/2018 NANCY (acute kidney injury) 06/14/20142018 MRSA pneumonia 06/13/2014 05/01/2018 documented as of this encounter (statuses as of 07/17/2021) [address]29-2015 History of Past illness Narrative* Problem Noted Date Resolved Date Elevated troponin 09/09/2014 09/10/2014 Overview: 4. Elevated Troponin -EKG findings noted above -OSH Troponin mildly elevated -Will check repeat CE Hypokalemia 09/09/2014 05/01/2018 Overview: 5. Hypokalemia - Resolved Septic shock 06/14/2014 05/01/2018 NANCY (acute kidney injury) 06/14/20142018 MRSA pneumonia 06/13/2014 05/01/2018 documented as of this encounter (statuses as of 07/31/2021) [facility] Narrative* Problem Noted Date Resolved Date Elevated troponin 09/09/2014 09/10/2014 Overview: 4. Elevated Troponin -EKG findings noted above -OSH Troponin mildly elevated -Will check repeat CE Hypokalemia 09/09/2014 05/01/2018 Overview: 5. Hypokalemia - Resolved Septic shock 06/14/2014 05/01/2018 NANCY (acute kidney injury) 06/14/20142018 MRSA pneumonia 06/13/2014 05/01/2018 documented as of this encounter (statuses as of 08/03/2021) [facility] Narrative* Problem Noted Date Resolved Date Elevated troponin 09/09/2014 09/10/2014 Overview: 4. Elevated Troponin -EKG findings noted above -OSH Troponin mildly elevated -Will check repeat CE Hypokalemia 09/09/2014 05/01/2018 Overview: 5. Hypokalemia - Resolved Septic shock 06/14/2014 05/01/2018 NANCY (acute kidney injury) 06/14/20142018 MRSA pneumonia 06/13/2014 05/01/2018 documented as of this encounter (statuses as of 09/28/2021) [facility] Narrative* Problem Noted Date Resolved Date Elevated troponin 09/09/2014 09/10/2014 Overview: 4. Elevated Troponin -EKG findings noted above -OSH Troponin mildly elevated -Will check repeat CE Hypokalemia 09/09/2014 05/01/2018 Overview: 5. Hypokalemia - Resolved Septic shock 06/14/2014 05/01/2018 NANCY (acute kidney injury) 06/14/20142018 MRSA pneumonia 06/13/2014 05/01/2018 documented as of this encounter (statuses as of 04/01/2022) [facility] Narrative* Problem Noted Date Resolved Date Elevated troponin 09/09/2014 09/10/2014 Overview: 4. Elevated Troponin -EKG findings noted above -OSH Troponin mildly elevated -Will check repeat CE Hypokalemia 09/09/2014 05/01/2018 Overview: 5. Hypokalemia - Resolved Septic shock 06/14/2014 05/01/2018 NANCY (acute kidney injury) 06/14/20142018 MRSA pneumonia 06/13/2014 05/01/2018 documented as of this encounter (statuses as of 04/01/2022) [facility] Narrative* Problem Noted Date Resolved Date Elevated troponin 09/09/2014 09/10/2014 Overview: 4. Elevated Troponin -EKG findings noted above -OSH Troponin mildly elevated -Will check repeat CE Hypokalemia 09/09/2014 05/01/2018 Overview: 5. Hypokalemia - Resolved Septic shock 06/14/2014 05/01/2018 NANCY (acute kidney injury) 06/14/20142018 MRSA pneumonia 06/13/2014 05/01/2018 documented as of this encounter (statuses as of 09/07/2022) [facility] Narrative* Problem Noted Date Diagnosed Date Resolved Date Elevated troponin 09/09/2014 09/10/2014 Overview: 4. Elevated Troponin -EKG findings noted above -OSH Troponin mildly elevated -Will check repeat CE Hypokalemia 09/09/2014 05/01/2018 Overview: 5. Hypokalemia - Resolved Septic shock 06/14/2014 05/01/2018 NANCY (acute kidney injury) 06/14/2014 MRSA pneumonia 06/13/2014 05/01/2018 documented as of this encounter (statuses as of 11/11/2022) [facility] Narrative* Problem Noted Date Diagnosed Date Resolved Date Elevated troponin 09/09/2014 09/10/2014 Overview: 4. Elevated Troponin -EKG findings noted above -OSH Troponin mildly elevated -Will check repeat CE Hypokalemia 09/09/2014 05/01/2018 Overview: 5. Hypokalemia - Resolved Septic shock 06/14/2014 05/01/2018 NANCY (acute kidney injury) 06/14/2014 MRSA pneumonia 06/13/2014 05/01/2018 documented as of this encounter (statuses as of 01/19/2023) [facility] Narrative* Problem Noted Date Diagnosed Date Resolved Date Elevated troponin 09/09/2014 09/10/2014 Overview: 4. Elevated Troponin -EKG findings noted above -OSH Troponin mildly elevated -Will check repeat CE Hypokalemia 09/09/2014 05/01/2018 Overview: 5. Hypokalemia - Resolved Septic shock 06/14/2014 05/01/2018 NANCY (acute kidney injury) 06/14/2014 MRSA pneumonia 06/13/2014 05/01/2018 documented as of this encounter (statuses as of 01/28/2023) [facility] Narrative* Problem Noted Date Diagnosed Date Resolved Date Elevated troponin 09/09/2014 09/10/2014 Overview: 4. Elevated Troponin -EKG findings noted above -OSH Troponin mildly elevated -Will check repeat CE Hypokalemia 09/09/2014 05/01/2018 Overview: 5. Hypokalemia - Resolved Septic shock 06/14/2014 05/01/2018 NANCY (acute kidney injury) 06/14/2014 MRSA pneumonia 06/13/2014 05/01/2018 documented as of this encounter (statuses as of 02/19/2023) [facility] Narrative* Problem Noted Date Diagnosed Date Resolved Date Elevated troponin 09/09/2014 09/10/2014 Overview: 4. Elevated Troponin -EKG findings noted above -OSH Troponin mildly elevated -Will check repeat CE Hypokalemia 09/09/2014 05/01/2018 Overview: 5. Hypokalemia - Resolved Septic shock 06/14/2014 05/01/2018 NANCY (acute kidney injury) 06/14/2014 MRSA pneumonia 06/13/2014 05/01/2018 documented as of this encounter (statuses as of 04/15/2023) [facility] Narrative* Problem Noted Date Diagnosed Date Resolved Date Elevated troponin 09/09/2014 09/10/2014 Overview: 4. Elevated Troponin -EKG findings noted above -OSH Troponin mildly elevated -Will check repeat CE Hypokalemia 09/09/2014 05/01/2018 Overview: 5. Hypokalemia - Resolved Septic shock 06/14/2014 05/01/2018 NANCY (acute kidney injury) 06/14/2014 MRSA pneumonia 06/13/2014 05/01/2018 documented as of this encounter (statuses as of 04/18/2023) [facility] Narrative* Problem Noted Date Diagnosed Date Resolved Date Elevated troponin 09/09/2014 09/10/2014 Overview: 4. Elevated Troponin -EKG findings noted above -OSH Troponin mildly elevated -Will check repeat CE Hypokalemia 09/09/2014 05/01/2018 Overview: 5. Hypokalemia - Resolved Septic shock 06/14/2014 05/01/2018 NANCY (acute kidney injury) 06/14/2014 MRSA pneumonia 06/13/2014 05/01/2018 documented as of this encounter (statuses as of 04/18/2023) [facility] Narrative* Problem Noted Date Diagnosed Date Resolved Date Elevated troponin 09/09/2014 09/10/2014 Overview: 4. Elevated Troponin -EKG findings noted above -OSH Troponin mildly elevated -Will check repeat CE Hypokalemia 09/09/2014 05/01/2018 Overview: 5. Hypokalemia - Resolved Septic shock 06/14/2014 05/01/2018 NANCY (acute kidney injury) 06/14/2014 MRSA pneumonia 06/13/2014 05/01/2018 documented as of this encounter (statuses as of 04/21/2023) [facility] Narrative* Problem Noted Date Diagnosed Date Resolved Date Elevated troponin 09/09/2014 09/10/2014 Overview: 4. Elevated Troponin -EKG findings noted above -OSH Troponin mildly elevated -Will check repeat CE Hypokalemia 09/09/2014 05/01/2018 Overview: 5. Hypokalemia - Resolved Septic shock 06/14/2014 05/01/2018 NANCY (acute kidney injury) 06/14/2014 MRSA pneumonia 06/13/2014 05/01/2018 documented as of this encounter (statuses as of 04/26/2023) [facility] Narrative* Problem Noted Date Diagnosed Date Resolved Date Elevated troponin 09/09/2014 09/10/2014 Overview: 4. Elevated Troponin -EKG findings noted above -OSH Troponin mildly elevated -Will check repeat CE Hypokalemia 09/09/2014 05/01/2018 Overview: 5. Hypokalemia - Resolved Septic shock 06/14/2014 05/01/2018 NANCY (acute kidney injury) 06/14/2014 MRSA pneumonia 06/13/2014 05/01/2018 documented as of this encounter (statuses as of 05/24/2023) [facility] Narrative* Problem Noted Date Diagnosed Date Resolved Date Elevated troponin 09/09/2014 09/10/2014 Overview: 4. Elevated Troponin -EKG findings noted above -OSH Troponin mildly elevated -Will check repeat CE Hypokalemia 09/09/2014 05/01/2018 Overview: 5. Hypokalemia - Resolved Septic shock 06/14/2014 05/01/2018 NANCY (acute kidney injury) 06/14/2014 MRSA pneumonia 06/13/2014 05/01/2018 documented as of this encounter (statuses as of 05/24/2023) [facility] Narrative* Problem Noted Date Diagnosed Date Resolved Date Elevated troponin 09/09/2014 09/10/2014 Overview: 4. Elevated Troponin -EKG findings noted above -OSH Troponin mildly elevated -Will check repeat CE Hypokalemia 09/09/2014 05/01/2018 Overview: 5. Hypokalemia - Resolved Septic shock 06/14/2014 05/01/2018 NANCY (acute kidney injury) 06/14/2014 MRSA pneumonia 06/13/2014 05/01/2018 documented as of this encounter (statuses as of 05/25/2023) [facility] Narrative* Problem Noted Date Diagnosed Date Resolved Date Elevated troponin 09/09/2014 09/10/2014 Overview: 4. Elevated Troponin -EKG findings noted above -OSH Troponin mildly elevated -Will check repeat CE Hypokalemia 09/09/2014 05/01/2018 Overview: 5. Hypokalemia - Resolved Septic shock 06/14/2014 05/01/2018 NANCY (acute kidney injury) 06/14/2014 MRSA pneumonia 06/13/2014 05/01/2018 documented as of this encounter (statuses as of 05/31/2023) [facility] Narrative* Problem Noted Date Diagnosed Date Resolved Date Elevated troponin 09/09/2014 09/10/2014 Overview: 4. Elevated Troponin -EKG findings noted above -OSH Troponin mildly elevated -Will check repeat CE Hypokalemia 09/09/2014 05/01/2018 Overview: 5. Hypokalemia - Resolved Septic shock 06/14/2014 05/01/2018 NANCY (acute kidney injury) 06/14/2014 MRSA pneumonia 06/13/2014 05/01/2018 documented as of this encounter (statuses as of 06/06/2023) [facility] Narrative* Problem Noted Date Diagnosed Date Resolved Date Elevated troponin 09/09/2014 09/10/2014 Overview: 4. Elevated Troponin -EKG findings noted above -OSH Troponin mildly elevated -Will check repeat CE Hypokalemia 09/09/2014 05/01/2018 Overview: 5. Hypokalemia - Resolved Septic shock 06/14/2014 05/01/2018 NANCY (acute kidney injury) 06/14/2014 MRSA pneumonia 06/13/2014 05/01/2018 documented as of this encounter (statuses as of 06/13/2023) [facility] Narrative* Problem Noted Date Diagnosed Date Resolved Date Elevated troponin 09/09/2014 09/10/2014 Overview: 4. Elevated Troponin -EKG findings noted above -OSH Troponin mildly elevated -Will check repeat CE Hypokalemia 09/09/2014 05/01/2018 Overview: 5. Hypokalemia - Resolved Septic shock 06/14/2014 05/01/2018 NANCY (acute kidney injury) 06/14/2014 MRSA pneumonia 06/13/2014 05/01/2018 documented as of this encounter (statuses as of 06/28/2023) [facility] Narrative* Problem Noted Date Diagnosed Date Resolved Date Elevated troponin 09/09/2014 09/10/2014 Overview: 4. Elevated Troponin -EKG findings noted above -OSH Troponin mildly elevated -Will check repeat CE Hypokalemia 09/09/2014 05/01/2018 Overview: 5. Hypokalemia - Resolved Septic shock 06/14/2014 05/01/2018 NANCY (acute kidney injury) 06/14/2014 MRSA pneumonia 06/13/2014 05/01/2018 documented as of this encounter (statuses as of 06/28/2023) [facility] Narrative* Problem Noted Date Diagnosed Date Resolved Date Elevated troponin 09/09/2014 09/10/2014 Overview: 4. Elevated Troponin -EKG findings noted above -OSH Troponin mildly elevated -Will check repeat CE Hypokalemia 09/09/2014 05/01/2018 Overview: 5. Hypokalemia - Resolved Septic shock 06/14/2014 05/01/2018 NANCY (acute kidney injury) 06/14/2014 MRSA pneumonia 06/13/2014 05/01/2018 documented as of this encounter (statuses as of 06/28/2023) [facility] Cuca Flood [facility] November 14, 2022 4:36pm Note Date/Time November 14, 2022 4:36pm [facility] Medical Records Department [address] [place] [id number] Instructions for Home/Discharge Instructions 11/14/22 1635 MR#: [id number] Acct: [id number] Name: LUIS STEELE II Rep #:[id number] : 1970 52 From: Cuca Flood MD PCP: Dr. Antwan Buchanan, DO Status:AD M IN Discharge Instructions Diet Discharge Diet: Light diet - advance as tolerated Activity Discharge Activity: - (Return to normal activity as tolerated) Follow Up Care Test Results: Test results from this visit will be discussed in further detail at your follow- up appointment, if applicable. Discharge Plan Admission Admit Date/Time: 11/12/22 17:35 Primary Reason for Your Visit: Weakness, shortness of breath Attending Provider: Cuca Flood Primary Care Provider: Antwan Buchanan Consulting Providers: Kelton Gutierrez Instructions Patient Instructions: Anemia, Asthma and COPD Additional Instructions / Restrictions: DISCHARGE INSTRUCTIONS PLEASE READ *Please take this with you to your next doctors appointment* -You will be discharged on an iron supplement, it will be important to make sureyou do not become constipated, if you do you may need to take an [id number] supplement or contact your primary care physician -You will need to follow-up with Dr. Berg with GI in his office upon discharge. Please call his office to schedule your hospital follow-up appointment (ph. [phone]) -Would recommend lab work (CBC) to check your hemoglobin/blood counts in 2 to 3 days through your primary care physician's office. Please call their office upon discharge to obtain order for lab work. Ultimately you will have your ironstudies rechecked by Dr. Berg's office as well -Please call your primary care provider's office upon discharge to schedule a hospital follow up within 1 week. -For any concerning signs or symptoms please call 911 or proceed to the nearest emergency department Discharge Orders/Prescriptions Prescriptions: New ferrous sulfate [Iron (ferrous sulfate)] 325 mg (65 mg iron) tablet 325 mg PO DAILY Qty: 90 0RF Continued sertraline 100 MG tablet 100 mg PO DAILY Patient Comments: MENTAL HEALTH trazodone 50 mg tablet 100 - 150 mg PO PRN Patient Comments: take 1 to 3 tablets by mouth at bedtime pantoprazole 40 mg tablet,delayed release (DR/EC) 40 mg PO BID Patient Comments: take 1 tablet by mouth twice a day ipratropium-albuterol 0.5 mg-3 mg(2.5 mg base)/3 mL Solution For Nebulization 3 ml INHALATION Q4H PRN (Reason: breathing) albuterol sulfate [Ventolin HFA] 90 mcg/actuation HFA aerosol inhaler 2 puff inhalation Q4H PRN PRN (Reason: Wheezing) Qty: 1 0RF Referrals / Follow Up: Antwan Buchanan DO [Primary Care Provider] - Within 1 Week Adán Berg DO [Med Staff - Active Staff] - ( -You will need to follow-up with Dr. Sergio starkey GI in his office upon discharge. Please call his office to schedule your hospital follow-up appointment (ph. [phone])) Disposition Disposition (needs filled in before D/C Order can be placed): Home, Self Care 11/14/22 1636<Electronically signed by Cuca Flood MD>Cuca Flood MD CC: Dr. Antwan Buchaann DO; Dr. Kelton Gutierrez MD ~ Signed [facility] Work Phone: Discharge summary Author Cuca Flood [facility] November 14, 2022 4:47pm Note Date/Time November 14, 2022 4:47pm [facility] Medical Records Department [address] [place] [address] Discharge Summary 11/14/22 1641 MR#: [id number] Acct: [id number] Name: LUIS STEELE II Rep #:[id number] : 1970 52 From: Cuca Flood MD PCP: Dr. Antwan Buchanan DO Status:AD M IN Location: [place] [id number] Providers Date of Admission: 11/12/22 Date of Discharge: 11/14/22 Primary Care Physician: Dr. Antwan Buchanan DO Consultations 11/12/22 18:50 Consult: Gastroenterology Routine Consulting Provider: [facility] Reason for Consult: GI bleed EMERGENT Consult: No MD Notified: Yes Date Notified: 11/12/22 Time Notified: 17:38 Method of Notification: Verbal Reason For Visit: GI BLEED Diagnosis Discharge Diagnosis (1) Acute anemia: Status: Acute Code(s): D64.9 - Anemia, unspecified Plan #Acute blood loss anemia presumed secondary to GI bleed #Iron deficiency anemia #COPD with history of tracheostomy and work-up for lung transplant #Anxiety/depression #Tobacco use Medications at Discharge Home Medications sertraline 100 mg tablet 100 mg PO DAILY mood 11/19/14 pantoprazole 40 mg tablet,delayed release 40 mg PO BID stomache 03/20/21 trazodone 50 mg tablet 100 - 150 mg PO PRN sleep 03/20/21 ipratropium 0.5 mg-albuterol 3 mg (2.5 mg base)/3 mL nebulization soln 3 ml inhalation Q4H PRN breathing 08/15/21 albuterol sulfate 90 mcg/actuation aerosol inhaler (Ventolin HFA) 2 puff inhalation Q4H PRN PRN Wheezing ##1 02/10/22 ferrous sulfate 325 mg (65 mg iron) tablet (Iron (ferrous sulfate)) 325 mg PO DAILY #90 tabs 11/14/22 Hospital Course Procedures EGD Summary of Care Provided Minutes Spent on Discharge: 40 Hospital Course: 52 M w/ hx of tobacco use, anxiety, and COPD on lung transplant list here 11/12/22w/ increased weakness and SOB. Was found to have hgb 5.8 and was transfused 2u and started on PPI. GI contacted for presumed GI bleed. EGD on 11/13 with erythematous duodenopathy and small hiatal hernia, colonoscopy with nonbleeding internal hemorrhoids, otherwise unremarkable. Patient received a dose of IV iron and was tolerating diet well. On day of discharge felt a little tired and has intermittently had a headache but no abdominal pain and no blood in stool orany other bleeding. Discussed with GI and it was advised another dose of IV iron and d/c on oral iron and will need outpt capsul endoscopy and GI f/u. Given patient was tired and had a headache order placed for ABG to verify oxygenation and ventilation okay prior to discharge, result obtained seem to be venous or mixed so VBG obtained 2 hours later which showed patient oxygenating and ventilating well. Patient was agreeable to DC and outpatient follow-up. Discharge instructions as follows: -You will be discharged on an iron supplement, it will be important to make sureyou do not become constipated, if you do you may need to take an [id number] supplement or contact your primary care physician -You will need to follow-up with Dr. Berg with GI in his office upon discharge. Please call his office to schedule your hospital follow-up appointment (ph. [phone]) -Would recommend lab work (CBC) to check your hemoglobin/blood counts in 2 to 3 days through your primary care physician's office. Please call their office upon discharge to obtain order for lab work. Ultimately you will have your ironstudies rechecked by Dr. Berg's office as well -Please call your primary care provider's office upon discharge to schedule a hospital follow up within 1 week. -For any concerning signs or symptoms please call 911 or proceed to the nearest emergency department Physical Exam Narrative General: Alert, oriented, no apparent distress HEENT: Atraumatic, normocephalic Eyes: Anicteric, normal conjunctiva, extraocular movements grossly intact Neck: Supple Respiratory: Scattered wheezing, normal work of breathing Cardiovascular: Regular rate and rhythm GI: Soft, nontender, nondistended Extremities: No edema Musculoskeletal: Moving all extremities Neuro: No overt focal neurological deficits Skin: No rashes appreciated Psych: Cooperative Weight / BMI Weight Weight: 77.9 kg Body Mass Index (BMI) 24.6 ABG / Lab / Microbiology Data 11/14/22 06:04 11/14/22 06:04 Laboratory: Laboratory Results - last 24 hr 11/14/22 06:04: WBC 9.7, RBC 3.41 L, Hgb 7.5 L, Hct 26.7 L, MCV 78.3 L, MCH 22.0L, MCHC 28.1 L, RDW Std Deviation 57.7 H, RDW Coeff of Maya 20.5 H, Plt Count 451H, MPV 9.5, Immature Gran % (Auto) 1.500 H, Neut % (Auto) 61.6, Lymph % (Auto) 23.5, Fergus % (Auto) 12.5 H, Eos % (Auto) 0.4, Baso % (Auto) 0.5, Absolute Neuts (auto) 6.0, Absolute Lymphs (auto) 2.29, Nucleated RBC % 1.3, Differential Comment SCANNED, Hypochromasia 1+, Anisocytosis 2+, Microcytosis 1+, Macrocytosis 1+, Sodium 140, Potassium 3.8, Chloride 107, Carbon Dioxide 32.0, Anion Gap 1 L, BUN 16, Creatinine 1.06, Estim Creat Clear Calc 84.17, Est GFR (MDRD) Af Amer 94, Est GFR (MDRD) Non-Af 78, BUN/Creatinine Ratio 15.1, Glucose 97, Calcium 8.0 L ABG: ABG 11/14/22 11/14/22 12:42 16:29 Specimen Type ART AG Sample Site R Radial pH 7.35 Bicarbonate Actual 26.2 H Total CO2 28 Base Excess 1 O2 Saturation 72 L ABG pCO2 47.1 H ABG pO2 40 L Coy Test N/A VBG pH 7.37 VBG pO2 199 H VBG HCO3 29 H VBG Total CO2 30 VBG O2 Sat (Calc) 100 H VBG Base Excess 4 H POC Mix VBG pCO2 Pt Tmp 49.5 O2 Delivery Device Cannula Cannula Liter Flow 3.0 2.0 D/C Instructions Discharge Diet: Light diet - advance as tolerated Meaningful Use Info Meaningful Use Diagnoses (Choose all that apply): None applicable Discharge Plan Admission Admit Date/Time: 11/12/22 17:35 Primary Reason for Your Visit: Weakness, shortness of breath Attending Provider: Cuca Flood Primary Care Provider: Antwan Buchanan Consulting Providers: Kelton Gutierrez Instructions Patient Instructions: Anemia, Asthma and COPD Additional Instructions / Restrictions: DISCHARGE INSTRUCTIONS PLEASE READ *Please take this with you to your next doctors appointment* -You will be discharged on an iron supplement, it will be important to make sureyou do not become constipated, if you do you may need to take an [id number] supplement or contact your primary care physician -You will need to follow-up with Dr. Berg with GI in his office upon discharge. Please call his office to schedule your hospital follow-up appointment (ph. [phone]) -Would recommend lab work (CBC) to check your hemoglobin/blood counts in 2 to 3 days through your primary care physician's office. Please call their office upon discharge to obtain order for lab work. Ultimately you will have your ironstudies rechecked by Dr. Berg's office as well -Please call your primary care provider's office upon discharge to schedule a hospital follow up within 1 week. -For any concerning signs or symptoms please call 911 or proceed to the nearest emergency department Discharge Orders/Prescriptions Prescriptions: New ferrous sulfate [Iron (ferrous sulfate)] 325 mg (65 mg iron) tablet 325 mg PO DAILY Qty: 90 0RF Continued sertraline 100 MG tablet 100 mg PO DAILY Patient Comments: MENTAL HEALTH trazodone 50 mg tablet 100 - 150 mg PO PRN Patient Comments: take 1 to 3 tablets by mouth at bedtime pantoprazole 40 mg tablet,delayed release (DR/EC) 40 mg PO BID Patient Comments: take 1 tablet by mouth twice a day ipratropium-albuterol 0.5 mg-3 mg(2.5 mg base)/3 mL Solution For Nebulization 3 ml INHALATION Q4H PRN (Reason: breathing) albuterol sulfate [Ventolin HFA] 90 mcg/actuation HFA aerosol inhaler 2 puff inhalation Q4H PRN PRN (Reason: Wheezing) Qty: 1 0RF Referrals / Follow Up: Antwan Buchanan DO [Primary Care Provider] - Within 1 Week Adán Berg DO [Med Staff - Active Staff] - ( -You will need to follow-up with Dr. Berg with GI in his office upon discharge. Please call his office to schedule your hospital follow-up appointment (ph. [phone])) Disposition Disposition (needs filled in before D/C Order can be placed): Home, Self Care Charges/Coding Visit Charges Inpatient E&M: 56828 Disch Hosp >30min 11/14/22 1647 <Electronically signed by Cuca Flood MD> Cosigner Signature (if applicable): CC: Dr. Antwan Buchanan, DO; Dr. Cuca Flood MD~ Signed [facility] Work Phone: Evaluation + Plan note No data available for this section [facility] Evaluation note* Diagnosis COPD, severe (HCC) Chronic airway obstruction, not elsewhere classified Centrilobular emphysema (HCC) Other emphysema Tobacco use disorder Shortness of breath [facility]* Diagnosis Centrilobular emphysema (HCC)- Primary Other emphysema COPD, severe (HCC) Chronic airway obstruction, not elsewhere classified Abnormal CT scan, lung Other nonspecific abnormal finding of lung field [facility]* Diagnosis Shortness of breath- Primary Debility Debility, unspecified Chronic respiratory failure, unspecified whether with hypoxia or hypercapnia (HCC) Dysphagia, unspecified type Pharyngeal dysphagia Dysphagia, pharyngeal phase Gastroesophageal reflux disease with esophagitis Retained food in stomach Dyspepsia and other specified disorders of function of stomach Severe malnutrition (HCC) Nutritional marasmus documented in this encounter [facility] Work Phone: Evaluation note* Diagnosis COPD, severe (HCC) Chronic airway obstruction, not elsewhere classified [facility] Diagnosis COPD, severe (HCC) Chronic airway obstruction, not elsewhere classified [facility]* Diagnosis Stage 4 very severe COPD by GOLD classification (HCC)- Primary Centrilobular emphysema (HCC) Other emphysema Lung nodules Other nonspecific abnormal finding of lung field Bronchiectasis without complication (HCC) Bronchiectasis without acute exacerbation Former cigarette smoker Personal history of tobacco use, presenting hazards to health documented [facility]* Diagnosis COPD, severe (HCC) Chronic airway obstruction, not elsewhere classified Centrilobular emphysema (HCC) Other emphysema Tobacco use disorder documented in this encounter [facility] note* Diagnosis Onset Date Resolution Status COPD exacerbation chronic [facility] Work Phone: Evaluation noteNo assessment information available [facility] Work Phone: Evaluation note* Diagnosis Other gastritis without bleeding documented in this encounter [facility] note* Diagnosis EDI (generalized anxiety disorder) Generalized anxiety disorder documented in this encounter [facility] note* Diagnosis Stage 4 very severe COPD by GOLD classification ([facility])- Primary Centrilobular emphysema (HCC) Other emphysema Abnormal CT scan, lung Other nonspecific abnormal finding of lung field SOB (shortness of breath) Shortness of breath Acute bilateral low back pain with bilateral sciatica Screening for prostate cancer Special screening for malignant neoplasm of prostate documented in this encounter [facility] note* Diagnosis Onset Date Resolution Status Acute anemia acute Acute GI bleeding acute COPD exacerbation chronic [facility] Work Phone: evaluation note* Diagnosis Choking, initial encounter- Primary documented in this encounter [facility] note* Diagnosis COPD exacerbation (HCC)- Primary Obstructive chronic bronchitis with exacerbation documented in this encounter [facility] note* Diagnosis Pneumothorax on left- Primary Other spontaneous pneumothorax Pneumothorax on left Other spontaneous pneumothorax Acute respiratory failure with hypoxia ([facility]) Orthopnea Orthopnea documented in this encounter [facility] note* Diagnosis Fatigue, unspecified type- Primary Anemia, unspecified type Stage 4 very severe COPD by GOLD classification (HCC) Pneumothorax, unspecified type Cardiac murmur, previously undiagnosed Undiagnosed cardiac murmurs documented in this encounter [facility] note* Diagnosis Chronic obstructive pulmonary disease, unspecified COPD type (HCC)- Primary Pulmonary emphysema, unspecified emphysema type (HCC) documented in this encounter [facility] note* Diagnosis 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- Primary Bone disorder Disorder of bone and cartilage, unspecified custodial (current) 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 Chronic fatigue Other malaise and fatigue SOB (shortness of breath) Shortness of breath Centrilobular emphysema (HCC) Other emphysema documented in this encounter [facility] note* Diagnosis 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- Primary documented in this encounter [facility] note* Diagnosis 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- Primary Bone disorder Disorder of bone and cartilage, unspecified custodial (current) 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 Chronic fatigue Other malaise and fatigue SOB (shortness of breath) Shortness of breath documented in this encounter [facility] note* Diagnosis Encounter for medication review and counseling Other specified counseling documented in this encounter [facility] note* Diagnosis 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 disorder Disorder of bone and cartilage, unspecified custodial (current) 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 Chronic fatigue Other malaise and fatigue SOB (shortness of breath) Shortness of breath documented in this encounter [facility] note* Diagnosis COPD with exacerbation (HCC) Obstructive chronic bronchitis with exacerbation documented in this encounter [facility] note* Diagnosis Chronic obstructive pulmonary disease, unspecified COPD type (HCC) documented in this encounter [facility] note* Diagnosis EDI (generalized anxiety disorder) Generalized anxiety disorder documented in this encounter [facility] note* Diagnosis Tobacco abuse Tobacco use disorder documented in this encounter [facility] note* Diagnosis SOB (shortness of breath)- Primary Shortness of breath Vitamin D deficiency Unspecified vitamin D deficiency Chronic obstructive pulmonary disease, unspecified COPD type (HCC) EDI (generalized anxiety disorder) Generalized anxiety disorder Stage 4 very severe COPD by GOLD classification ([facility]) Iron deficiency anemia, unspecified iron deficiency anemia type Fatigue, unspecified type Dyslipidemia Other and unspecified hyperlipidemia Hyperglycemia Other abnormal glucose documented in this encounter [facility] note* Diagnosis EDI (generalized anxiety disorder) Generalized anxiety disorder documented in this encounter [facility] Discharge instructions* Attachments The following attachments cannot be sent through Care Everywhere. * Aspiration Pneumonia Discharge Instructions ([place]) [facility] No data available for this section [facility] Reason for referral (narrative)* Diagnostic Procedure Only (Routine) - Pending Review Specialty Diagnoses / Procedures Referred By Kat stewart Referred To Contact XR IMAGING Diagnoses Acute bilateral low back pain with bilateral sciatica Procedures XR LUMBAR GENERAL 3V AP/LAT/L5-S1 RADEX SPINE LUMBOSACRAL 2/3 VIEWS Antwan Buchanan, [address] [place] [address] Xr Imaging Referral ID Status Reason Start Date Expiration Date Visits Requested Visits Authorized [id number] Pending Review Auto-Generat ed Referral 09/06/2022 10/06/2023 1 1 * Outpatient Procedure (Routine) - Additional Clinical Info Needed Specialty Diagnoses / Procedures Referred By Contac t Referred To [facility] Diagnoses Stage 4 very severe COPD by GOLD classification (HCC) Centrilobular emphysema (HCC) Abnormal CT scan, lung SOB (shortness of breath) Procedures ECHO ECHO TTHRC R-T 2D W/WOM-MODE COMPL SPEC&COLR D Antwan Buchanan DO [address] [place] [address] [address] Referral ID Status Reason Start Date Expiration Date Visits Requested Visits Authorized [id number] Additional Clinical Info Needed Auto-Generat ed Referral 09/06/2022 09/06/2023 1 1 * Outpatient Procedure (Routine) - Authorized Specialty Diagnoses / Procedures Referred By Contac t Referred To [facility] Diagnoses Stage 4 very severe COPD by GOLD classification (HCC) Centrilobular emphysema (HCC) Abnormal CT scan, lung SOB (shortness of breath) Procedures ECG COMPLETE ECG ROUTINE ECG W/LEAST 12 LDS W/I&R Antwan Buchanan DO [address] [place] [address] [address] Referral ID Status Reason Start Date Expiration Date Visits Requested Visits Authorized [id number] Authorized Auto-Generat ed Referral 09/06/2022 09/06/2023 1 1 * Outpatient Procedure (Routine) - Authorized Specialty Diagnoses / Procedures Referred By Contac t Referred To [facility] Diagnoses Stage 4 very severe COPD by GOLD classification (HCC) Centrilobular emphysema (HCC) Abnormal CT scan, lung SOB (shortness of breath) Procedures LUNG DIFFUSION CAPACITY (DLCO) DIFFUSING CAPACITY Antwan Buchanan DO [address] [place] [address] [address] Referral ID Status Reason Start Date Expiration Date Visits Requested Visits Authorized [id number] Authorized Auto-Generat ed Referral 09/06/2022 10/06/2023 1 1 * Outpatient Procedure (Routine) - Authorized Specialty Diagnoses / Procedures Referred By Contac t Referred To Contact [facility] Diagnoses Stage 4 very severe COPD by GOLD classification (HCC) Centrilobular emphysema (HCC) Abnormal CT scan, lung SOB (shortness of breath) Procedures SPIROMETRY - BASELINE AND POST DILATOR BRNCDILAT RSPSE SPMTRY PRE&POST-BRNCDILAT ADMN Antwan Buchanan DO [address] [place] [address] [place] [address] Referral ID Status Reason Start Date Expiration Date Visits Requested Visits Authorized [id number] Authorized Auto-Generat ed Referral 09/06/2022 10/06/2023 1 1 * MRI/CT (Routine) - Additional Clinical Info Needed Specialty Diagnoses / Procedures Referred By Contac t Referred To Contact CT IMAGING Diagnoses Stage 4 very severe COPD by GOLD classification (HCC) Centrilobular emphysema (HCC) Abnormal CT scan, lung SOB (shortness of breath) Procedures CT CHEST WO IVCON DIAGNOSTIC COMPUTED TOMOGRAPHY THORAX W/O CNTRST Antwan Buchanan DO [address] [place] [address] Ct Imaging Referral ID Status Reason Start Date Expiration Date Visits Requested Visits Authorized [id number] Additional Clinical Info Needed Auto-Generat ed Referral 09/06/2022 10/06/2023 1 1 [facility] for referral (narrative)* Outpatient Procedure (Routine) - Authorized Specialty Diagnoses / Procedures Referred By Contac t Referred To [facility] Diagnoses Stage 4 very severe COPD by GOLD classification (HCC) Procedures SPIROMETRY - BASELINE AND POST DILATOR BRNCDILAT RSPSE SPMTRY PRE&POST-BRNCDILAT ADMN Antwan Buchanan DO [address] [place] [address] [address] Referral ID Status Reason Start Date Expiration Date Visits Requested Visits Authorized [id number] Authorized Auto-Generat ed Referral 02/18/2023 03/19/2024 1 1 * Outpatient Procedure (Routine) - Open Specialty Diagnoses / Procedures Referred By Contac t Referred To Contact [facility] [place] Diagnoses Stage 4 very severe COPD by GOLD classification ([facility]) Cardiac murmur, previously undiagnosed Procedures ECHO ECHO TTHRC R-T 2D W/WOM-MODE COMPL SPEC&COLR D Antwan Buchanan DO [address] [place] [address] [facility] [address] [address] Referral ID Status Reason Start Date Expiration Date V isits Requested Visits Authorized [id number] Open Auto-Generate d Referral 02/18/2023 02/18/2024 1 1 * Outpatient Procedure (Routine) - Authorized Specialty Diagnoses / Procedures Referred By Contac t Referred To [facility] [place] Diagnoses Stage 4 very severe COPD by GOLD classification ([facility]) Procedures LUNG DIFFUSION CAPACITY (DLCO) DIFFUSING CAPACITY Antwan Buchanan DO [address] [place] [address] [address] Referral ID Status Reason Start Date Expiration Date Visits Requested Visits Authorized [id number] Authorized Auto-Generat ed Referral 02/18/2023 03/19/2024 1 1 [facility] for referral (narrative)* Outpatient Procedure (Routine) - Pending Review Specialty Diagnoses / Procedures Referred By Kat stewart Referred To [facility] [place] Diagnoses 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 Chronic fatigue SOB (shortness of breath) Procedures SIX MINUTE WALK CARDIOPULMONARY EXERCISE STRESS Inez Park DO [address] [place] [address] [address] Referral ID Status Reason Start Date Expiration Date Visits Requested Visits Authorized [id number] Pending Review Auto-Generat ed Referral 07/25/2023 07/26/2024 1 1 * Outpatient Procedure (Routine) - Pending Review Specialty Diagnoses / Procedures Referred By Kat stewart Referred To [facility] Diagnoses 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 Chronic fatigue SOB (shortness of breath) Procedures SPIROMETRY BASELINE ONLY SPMTRY W/VC EXPIRATORY KEKE W/WO MXML VOL VNTJ Inez Park DO [address] [place] [address] [address] Referral ID Status Reason Start Date Expiration Date Visits Requested Visits Authorized [id number] Pending Review Auto-Generat ed Referral 07/25/2023 07/26/2024 1 1 * Outpatient Procedure (Routine) - Pending Review Specialty Diagnoses / Procedures Referred By Kat stewart Referred To [facility] Diagnoses 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 Chronic fatigue SOB (shortness of breath) Procedures LUNG VOLUMES Inez Park DO [address] [place] [address] [address] Referral ID Status Reason Start Date Expiration Date Visits Requested Visits Authorized [id number] Pending Review Auto-Generat ed Referral 07/25/2023 07/26/2024 1 1 * Outpatient Procedure (Routine) - Pending Review Specialty Diagnoses / Procedures Referred By Kat stewart Referred To [facility] Diagnoses 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 Chronic fatigue SOB (shortness of breath) Procedures LUNG DIFFUSION CAPACITY (DLCO) DIFFUSING CAPACITY Inez Park DO [address] [place] [address] [address] Referral ID Status Reason Start Date Expiration Date Visits Requested Visits Authorized [id number] Pending Review Auto-Generat ed Referral 07/25/2023 07/26/2024 1 1 * Outpatient Procedure (Routine) - Pending Review Specialty Diagnoses / Procedures Referred By Kat stewart Referred To Contact [facility] Diagnoses 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 Procedures ARTERIAL BLOOD GAS, ROOM AIR GASES BLOOD PH DIRECT DAVID XCPT PULSE OXIMITRY Inez Park DO [address] [place] [address] [address] Referral ID Status Reason Start Date Expiration Date Visits Requested Visits Authorized [id number] Pending Review Auto-Generat ed Referral 07/25/2023 07/26/2024 1 1 * Outpatient Procedure (Routine) - Pending Review Specialty Diagnoses / Procedures Referred By Kat stewart Referred To Contact [facility] Diagnoses 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 Procedures ECHO WITH AGITATED SALINE CONTRAST ECHO TRANSTHORAC R-T 2D W/WO M-MODE REC COMP Inez Park DO [address] [place] [address] [facility] [address] [address] Referral ID Status Reason Start Date Expiration Date Visits Requested Visits Authorized [id number] Pending Review Auto-Generat ed Referral 07/25/2023 06/26/2024 1 1 * Outpatient Procedure (Routine) - Pending Review Specialty Diagnoses / Procedures Referred By Kat stewart Referred To [facility] Diagnoses 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 Chronic fatigue SOB (shortness of breath) Procedures ECG COMPLETE ECG ROUTINE ECG W/LEAST 12 LDS W/I&R Inez Park DO [address] [place] [address] [facility] [place] [address] [place] [address] Referral ID Status Reason Start Date Expiration Date Visits Requested Visits Authorized [id number] Pending Review Auto-Generat ed Referral 07/25/2023 06/26/2024 1 1 * MRI/CT (Routine) - Pending Review Specialty Diagnoses / Procedures Referred By Kat stewart Referred To Contact CT IMAGING Diagnoses 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 Chronic fatigue SOB (shortness of breath) Procedures CT CHEST WO IVCON DIAGNOSTIC COMPUTED TOMOGRAPHY THORAX W/O CNTRST Inez Park DO [address] [place] [address] [facility] [place] [address] Referral ID Status Reason Start Date Expiration Date Visits Requested Visits Authorized [id number] Pending Review Auto-Generat ed Referral 07/25/2023 07/26/2024 1 1 [facility] Reason for Referral Specialty Diagnoses / Procedures Referred By Kat setwart Referred To Contact CT IMAGING Diagnoses COPD, severe (HCC) Centrilobular emphysema (HCC) Tobacco use disorder Shortness of breath Procedures CT CHEST WO IVCON DIAGNOSTIC COMPUTED TOMOGRAPHY THORAX W/O CNTRST Antwan Buchanan, DO [address] [place] [address] Ct Imaging Referral ID Status Reason Start Date Expiration Date V isits Requested Visits Authorized [id number] Closed Auto-Generat ed Referral Patient Cleared - Admin/Chairm an/Director advise to proceed 05/29/2021 07/31/2021 1 1 Specialty Diagnoses / Procedures Referred By Contac t Referred To Contact Pulmonary and Critical Care Medicine Diagnoses Centrilobular emphysema (HCC) COPD, severe (HCC) Abnormal CT scan, lung Procedures CONSULT TO PULM/CRITICAL CARE OFFICE/OUTPATIENT [facility] MDM 60-74 MINUTES Shelia Mahmood, DISPLAY SCREEN FABRICATOR.EMPLOYMENT OFFICER [address] [place] [address] Referral ID Status Reason Start Date Expiration Date Visits Requested Visits Authorized [id number] Authorized PCP Requested Referral 06/11/2021 06/11/2022 1 1 Specialty Diagnoses / Procedures Referred By Contac t Referred To Contact Otolaryngology Diagnoses Pharyngeal dysphagia Charles Patten MD [address] [address] [facility] [address] [place] [address] Referral ID Status Reason Start Date Expiration Date V isits Requested Visits Authorized Open Specialty Services Required 07/09/2021 07/09/2022 1 1 Scheduling Instructions [facility] [address] [place], [place] [address] F: [phone] Specialty Diagnoses / Procedures Referred By Contac t Referred To Contact CT IMAGING Diagnoses Centrilobular emphysema (HCC) Lung nodules Procedures CT CHEST WO IVCON DIAGNOSTIC COMPUTED TOMOGRAPHY THORAX W/O CNTRST Manuel Block MD [address] [place] [address] Ct Imaging Referral ID Status Reason Start Date Expiration Date Visits Requested Visits Authorized [id number] Pending Review Auto-Generat ed Referral 01/16/2022 08/15/2022 1 1 Specialty Diagnoses / Procedures Referred By Contac t Referred To Contact [facility] Diagnoses Stage 4 very severe COPD by GOLD classification (HCC) Procedures LUNG DIFFUSION CAPACITY (DLCO) DIFFUSING CAPACITY Manuel Block MD [address] [place] [address] [address] Referral ID Status Reason Start Date Expiration Date V isits Requested Visits Authorized [id number] Closed Auto-Generate d Referral 07/16/2021 03/13/2022 1 1 Specialty Diagnoses / Procedures Referred By Contac t Referred To Contact [facility] Diagnoses Stage 4 very severe COPD by GOLD classification ([facility]) Procedures LUNG VOLUMES Manuel Block MD [address] [place] [address] [address] Referral ID Status Reason Start Date Expiration Date V isits Requested Visits Authorized [id number] Closed Auto-Generate d Referral 07/16/2021 03/13/2022 1 1 Specialty Diagnoses / Procedures Referred By Contac t Referred To Contact Manuel Block MD [address] [place] [address] Referral ID Status Reason Start Date Expiration Date Visits Re quested Visits Authorized [id number] Closed 1 1 Specialty Diagnoses / Procedures Referred By Contac t Referred To Contact Glen Mike MD [address] [place] [address] Referral ID Status Reason Start Date Expiration Date V isits Requested Visits Authorized [id number] Pending Review 1 1 Specialty Diagnoses / Procedures Referred By Contac t Referred To Contact TRANSPLANT Diagnoses Chronic obstructive pulmonary disease, unspecified COPD type (HCC) Pulmonary emphysema, unspecified emphysema type (HCC) Procedures CONSULT TO [facility]PLANT C[facility] OFFICE/OUTPATIENT NEW HIGH MDM 60 MINUTES DXA BONE DENSITY STUDY 1/> SITES AXIAL SKEL FLUOROSCOPY UP TO 1 HOUR PHYSICIAN/QHP TIME ESOPHAGEAL MOTILITY STUDY W/INTERP&RPT RADIOLOGIC EXAM ESOPHAGUS SINGLE CONTRAST STUDY L HRT CATH W/NJX L VENTRICULOGRAPHY IMG S&I RIGHT HEART CATH O2 SATURATION & CARDIAC OUTPUT RADIOLOGIC EXAM CHEST 4+ VIEWS DIAGNOSTIC COMPUTED TOMOGRAPHY THORAX C-/C+ PULMONARY VENTILATION & PERFUSION IMAGING US ABDOMINAL REAL TIME W/IMAGE LIMITED CT MAXILLOFACIAL W/O CONTRAST MATERIAL DUPLEX SCAN EXTRACRANIAL ART COMPL BI STUDY NON-INVASIVE PHYSIOLOGIC STUDY EXTREMITY 3 LEVLS PET IMAGING LIMITED AREA CHEST HEAD/NECK CT ABD & PELVIS W/O CONTRAST SPMTRY W/VC EXPIRATORY KEKE W/WO MXML VOL VNTJ CARDIOPULMONARY EXERCISE TESTING DIFFUSING CAPACITY BLOOD GASES ANY COMBINATION PH PCO2 PO2 CO2 HCO3 GAS DILUT/WASHOUT LUNG VOL W/WO DISTRIB VENT&VOL PLETHYSMOGRAPHY LUNG VOLUMES W/WO AIRWAY RESIST THERAPEUTIC PROPHYLACTIC/DX INJECTION SUBQ/IM QUANT DIFFERENTIAL PULM PERFUSION W/WO IMAGING DOPPLER ECHOCARD PULSE WAVE W/SPECTRAL DISPLAY CT ABD & PELVIS W/O CONTRAST Manuel Block MD [address] [place] [address] [facility] [address] [address] Referral ID Status Reason Start Date Expiration Date Visits Requested Visits Authorized [id number] Pending Review Financial Clearance Required - OON Payor 04/18/2023 04/17/[phone] Specialty Diagnoses / Procedures Referred By Kat stewart Referred To Contact Nutrition Diagnoses 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 Chronic fatigue SOB (shortness of breath) Centrilobular emphysema (HCC) Procedures CONSULT TO NUTRITION THERAPY MEDICAL NUTRITION ASSMT&IVNTJ INDIV EACH 15 [place] MEDICAL NUTRITION ASSMT&IVNTJ INDIV EACH 15 [place] MEDICAL NUTRITION ASSMT&IVNTJ INDIV EACH 15 [place] MEDICAL NUTRITION ASSMT&IVNTJ INDIV EACH 15 [place] Inez Park DO [address] [place] [address] Referral ID Status Reason Start Date Expiration Date Visits Requested Visits Authorized [id number] Authorized PCP Requested Referral 05/30/2023 04/20/2024 1 1 Specialty Diagnoses / Procedures Referred By Kat stewart Referred To Contact [facility] Diagnoses 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 Chronic fatigue SOB (shortness of breath) Centrilobular emphysema (HCC) Procedures PVR ANK PRESS [facility] NON-INVAS PHYSIOLOGIC STD EXTREMITY ART 2 LEVEL Inez Park DO [address] [place] [address] [facility] [place] [address] [place] [address] Referral ID Status Reason Start Date Expiration Date Visits Requested Visits Authorized [id number] Pending Review Auto-Generat ed Referral 05/30/2023 04/20/2024 1 1 Specialty Diagnoses / Procedures Referred By Contac t Referred To Contact [facility] [place] Diagnoses 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 Chronic fatigue SOB (shortness of breath) Centrilobular emphysema (HCC) Procedures US CAROTID ARTERIES [facility] DUPLEX SCAN EXTRACRANIAL ART COMPL BI STUDY Inez Park DO [address] [place] [address] [address] Referral ID Status Reason Start Date Expiration Date Visits Requested Visits Authorized [id number] Pending Review Auto-Generat ed Referral 05/30/2023 04/20/2024 1 1 Specialty Diagnoses / Procedures Referred By Contac t Referred To Contact [facility] Diagnoses 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 Chronic fatigue SOB (shortness of breath) Centrilobular emphysema (HCC) Procedures SIX MINUTE WALK CARDIOPULMONARY EXERCISE STRESS Inez Park DO [address] [place] [address] [address] Referral ID Status Reason Start Date Expiration Date Visits Requested Visits Authorized [id number] Pending Review Auto-Generat ed Referral 05/30/2023 05/20/2024 1 1 Specialty Diagnoses / Procedures Referred By Contac t Referred To Contact [facility] [place] Diagnoses 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 Chronic fatigue SOB (shortness of breath) Centrilobular emphysema (HCC) Procedures SPIROMETRY BASELINE ONLY SPMTRY W/VC EXPIRATORY KEKE W/WO MXML VOL VNTJ Inez Park DO [address] [place] [address] Respiratory [address] [place] [address] Referral ID Status Reason Start Date Expiration Date Visits Requested Visits Authorized [id number] Pending Review Auto-Generat ed Referral 05/30/2023 05/20/2024 1 1 Specialty Diagnoses / Procedures Referred By Contac t Referred To [facility] [place] Diagnoses 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 Chronic fatigue SOB (shortness of breath) Centrilobular emphysema (HCC) Procedures LUNG VOLUMES Inez Park DO [address] [place] [address] [address] Referral ID Status Reason Start Date Expiration Date Visits Requested Visits Authorized [id number] Pending Review Auto-Generat ed Referral 05/30/2023 05/20/2024 1 1 [facility]ty Diagnoses / Procedures [facility] [place] Diagnoses 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 Chronic fatigue SOB (shortness of breath) Centrilobular emphysema (HCC) Procedures LUNG DIFFUSION CAPACITY (DLCO) DIFFUSING CAPACITY Inez Park DO [address] [place] [address] [address] Referral ID Status Reason Start Date Expiration Date Visits Requested Visits Authorized [id number] Pending Review Auto-Generat ed Referral 05/30/2023 05/20/2024 1 1 Specialty Diagnoses / Procedures Referred By Contac t Referred To [facility] [place] Diagnoses 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 Chronic fatigue SOB (shortness of breath) Centrilobular emphysema (HCC) Procedures ARTERIAL BLOOD GAS, ROOM AIR GASES BLOOD PH DIRECT DAVID XCPT PULSE OXIMITRY Inez Park DO [address] [place] [address] [address] Referral ID Status Reason Start Date Expiration Date Visits Requested Visits Authorized [id number] Pending Review Auto-Generat ed Referral 05/30/2023 05/20/2024 1 1 Specialty Diagnoses / Procedures Referred By Kat t Referred To Contact [facility] [place] Diagnoses 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 Chronic fatigue SOB (shortness of breath) Centrilobular emphysema (HCC) Procedures ECHO WITH AGITATED SALINE CONTRAST ECHO TRANSTHORAC R-T 2D W/WO M-MODE REC COMP Inez Park DO [address] [place] [address] [facility] [address] [address] Referral ID Status Reason Start Date Expiration Date Visits Requested Visits Authorized [id number] Pending Review Auto-Generat ed Referral 05/30/2023 04/20/2024 1 1 Specialty Diagnoses / Procedures Referred By Kat t Referred To Contact [facility] [place] Diagnoses 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 Chronic fatigue SOB (shortness of breath) Centrilobular emphysema (HCC) Procedures ECG COMPLETE ECG ROUTINE ECG W/LEAST 12 LDS W/I&R Inez Park DO [address] [place] [address] [facility] [address] [address] Referral ID Status Reason Start Date Expiration Date Visits Requested Visits Authorized [id number] Pending Review Auto-Generat ed Referral 05/30/2023 04/20/2024 1 1 Specialty Diagnoses / Procedures Referred By Kat t Referred To Contact CT IMAGING Diagnoses 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 Chronic fatigue SOB (shortness of breath) Centrilobular emphysema (HCC) Procedures CT CHEST WO IVCON DIAGNOSTIC COMPUTED TOMOGRAPHY THORAX W/O CNTRST Inez Park DO [address] [place] [address] Ct Imaging [id number] Referral ID Status Reason Start Date Expiration Date Visits Requested Visits Authorized [id number] Pending Review Auto-Generat ed Referral 05/30/2023 05/20/2024 1 1 Specialty Diagnoses / Procedures Referred By Kat t Referred To Contact CT IMAGING Diagnoses 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 Chronic fatigue SOB (shortness of breath) Procedures CT CHEST WO IVCON DIAGNOSTIC COMPUTED TOMOGRAPHY THORAX W/O CNTRST Inez Park DO [address] [place] [id number] [place] [address] Referral ID Status Reason Start Date Expiration Date V isits Requested Visits Authorized [id number] Closed Auto-Generate d Referral Patient Cleared INN/SMCP Payor Auth Obtained 07/25/2023 07/26/2024 1 1 Advance Directives Latest Code Status on File Code Status Date Activated Date Inactivated Comments Full Code 07/02/2021 12:03 AM Full Code 04/05/2021 1:04 AM 04/13/2021 6:44 PM Advance Directive Response Recorded Date/ Time Advance Directives No November 5:45pm Living Will No August 15, 2021 1 1:48am Power of Line Welder No August 15, 2021 11:48am Advance Directive Response Recorded Date/ Time Advance Directives No November 5:45pm Living Will No August 15, 2021 3 :00pm Power of Line Welder Yes August 15, 2021 3:00pm Advance Directive Response Recorded Date/ Time Advance Directives No November 4:45pm Living Will No February 10, 2 022 1:17pm Power of Line Welder No February 10, 2022 1:17pm Advance Directive Response Recorded Date/ Time Name of Medical Power of Line Welder Stalin Call November 12, 2022 6:56pm Advance Directives No November 5:45pm Living Will No November 12, 2 023 6:56pm Power of Line Welder Yes November 12, 2022 6:56pm Latest Code Status on File Code Status Date Activated Date Inactivated Comments Full Code 01/26/2023 8:03 PM Latest Code Status on File Code Status Date Activated Date Inactivated Comments Full Code 01/26/2023 8:03 PM 02/08/2023 5:11 PM Advance Directive Response Recorded Date/ Time Advance Directives No November 4:45pm Living Will No April 29, 2 024 1:15pm Power of Line Welder Yes April 29, 2023 1:26pm Advance Directives on File No 2023 1:15pm Advance Directive Response Recorded Date/ Time Advance Directives No November 5:45pm Living Will No April 29 024 2:15pm Power of Line Welder Yes April 29, 2023 2:26pm Advance Directives on File No 2023 2:15pm Summary Purpose Family History Relationship Condition Age at Onset Recorded Date/T binu Not Specified Malignant neoplasm Unknown Relationship Condition Age at Onset Recorded Date/T binu Not Specified Diabetes mellitus Unknown Cardiac disease Unknown Malignant neoplasm Unknown Hypertension Unknown Chief Complaint and Reason for Visit Chief Complaint ACUTE COPD EXACERBAT ION Reason for Visit COPD exacerbation Chief Complaint ACUTE COPD EXACERBAT ION ACUTE COPD EXACERBATION ACUTE COPD EXACERBATION Reason for Visit COPD exacerbation Chief Complaint SOB Chief Complaint sob GI BLEED GI BLEED GI BLEED GI BLEED GI BLEED Reason for Visit Acute anemia Acute GI bleeding COPD exacerbation Chief Complaint COPD Gold IV very se [place] Chief Complaint COPD Gold IV very se [place] COPD VERY SEVERE IV Additional Source Comments Source Comments (unrecognize d section and content) In the event this informatio n is protected by the Federal Confidentiality of Alcohol and Drug Abuse Patient Records regulations: The Federal rules restrict any use of the information to criminally investigate or prosecute any alcohol or drug abuse patient.[facility] the event this information is protected by the Federal Confidentiality of Alcohol and Drug Abuse Patient Records regulations: The Federal rules restrict any use of the information to criminally investigate or prosecute any alcohol or drug abuse patient.[facility] the event this information is protected by the Federal Confidentiality of Alcohol and Drug Abuse Patient Records regulations: The Federal rules restrict any use of the information to criminally investigate or prosecute any alcohol or drug abuse patient.[facility] Dayton[facility] the event this information is protected by the Federal Confidentiality of Alcohol and Drug Abuse Patient Records regulations: The Federal rules restrict any use of the information to criminally investigate or prosecute any alcohol or drug abuse patient.[facility] Dayton[facility] the event this information is protected by the Federal Confidentiality of Alcohol and Drug Abuse Patient Records regulations: The Federal rules restrict any use of the information to criminally investigate or prosecute any alcohol or drug abuse patient.[facility] the event this information is protected by the Federal Confidentiality of Alcohol and Drug Abuse Patient Records regulations: The Federal rules restrict any use of the information to criminally investigate or prosecute any alcohol or drug abuse patient.[facility] the event this information is protected by the Federal Confidentiality of Alcohol and Drug Abuse Patient Records regulations: The Federal rules restrict any use of the information to criminally investigate or prosecute any alcohol or drug abuse patient.[facility] the event this information is protected by the Federal Confidentiality of Alcohol and Drug Abuse Patient Records regulations: The Federal rules restrict any use of the information to criminally investigate or prosecute any alcohol or drug abuse patient.[facility] the event this information is protected by the Federal Confidentiality of Alcohol and Drug Abuse Patient Records regulations: The Federal rules restrict any use of the information to criminally investigate or prosecute any alcohol or drug abuse patient.[facility] DaytonIn the event this information is protected by the Federal Confidentiality of Alcohol and Drug Abuse Patient Records regulations: The Federal rules restrict any use of the information to criminally investigate or prosecute any alcohol or drug abuse patient.[facility] Dayton[facility] the event this information is protected by the Federal Confidentiality of Alcohol and Drug Abuse Patient Records regulations: The Federal rules restrict any use of the information to criminally investigate or prosecute any alcohol or drug abuse patient.[facility] the event this information is protected by the Federal Confidentiality of Alcohol and Drug Abuse Patient Records regulations: The Federal rules restrict any use of the information to criminally investigate or prosecute any alcohol or drug abuse patient.[facility] the event this information is protected by the Federal Confidentiality of Alcohol and Drug Abuse Patient Records regulations: The Federal rules restrict any use of the information to criminally investigate or prosecute any alcohol or drug abuse patient.[facility] the event this information is protected by the Federal Confidentiality of Alcohol and Drug Abuse Patient Records regulations: The Federal rules restrict any use of the information to criminally investigate or prosecute any alcohol or drug abuse patient.[facility] DaytonIn the event this information is protected by the Federal Confidentiality of Alcohol and Drug Abuse Patient Records regulations: The Federal rules restrict any use of the information to criminally investigate or prosecute any alcohol or drug abuse patient.[facility] DaytonIn the event this information is protected by the Federal Confidentiality of Alcohol and Drug Abuse Patient Records regulations: The Federal rules restrict any use of the information to criminally investigate or prosecute any alcohol or drug abuse patient.[facility] DaytonIn the event this information is protected by the Federal Confidentiality of Alcohol and Drug Abuse Patient Records regulations: The Federal rules restrict any use of the information to criminally investigate or prosecute any alcohol or drug abuse patient.[facility] DaytonIn the event this information is protected by the Federal Confidentiality of Alcohol and Drug Abuse Patient Records regulations: The Federal rules restrict any use of the information to criminally investigate or prosecute any alcohol or drug abuse patient.[facility] DaytonIn the event this information is protected by the Federal Confidentiality of Alcohol and Drug Abuse Patient Records regulations: The Federal rules restrict any use of the information to criminally investigate or prosecute any alcohol or drug abuse patient.[facility] DaytonIn the event this information is protected by the Federal Confidentiality of Alcohol and Drug Abuse Patient Records regulations: The Federal rules restrict any use of the information to criminally investigate or prosecute any alcohol or drug abuse patient.[facility] DaytonIn the event this information is protected by the Federal Confidentiality of Alcohol and Drug Abuse Patient Records regulations: The Federal rules restrict any use of the information to criminally investigate or prosecute any alcohol or drug abuse patient.[facility] DaytonIn the event this information is protected by the Federal Confidentiality of Alcohol and Drug Abuse Patient Records regulations: The Federal rules restrict any use of the information to criminally investigate or prosecute any alcohol or drug abuse patient.[facility] DaytonIn the event this information is protected by the Federal Confidentiality of Alcohol and Drug Abuse Patient Records regulations: The Federal rules restrict any use of the information to criminally investigate or prosecute any alcohol or drug abuse patient.[facility] DaytonIn the event this information is protected by the Federal Confidentiality of Alcohol and Drug Abuse Patient Records regulations: The Federal rules restrict any use of the information to criminally investigate or prosecute any alcohol or drug abuse patient.[facility] DaytonIn the event this information is protected by the Federal Confidentiality of Alcohol and Drug Abuse Patient Records regulations: The Federal rules restrict any use of the information to criminally investigate or prosecute any alcohol or drug abuse patient.[facility] DaytonIn the event this information is protected by the Federal Confidentiality of Alcohol and Drug Abuse Patient Records regulations: The Federal rules restrict any use of the information to criminally investigate or prosecute any alcohol or drug abuse patient.[facility] DaytonIn the event this information is protected by the Federal Confidentiality of Alcohol and Drug Abuse Patient Records regulations: The Federal rules restrict any use of the information to criminally investigate or prosecute any alcohol or drug abuse patient.[facility] DaytonIn the event this information is protected by the Federal Confidentiality of Alcohol and Drug Abuse Patient Records regulations: The Federal rules restrict any use of the information to criminally investigate or prosecute any alcohol or drug abuse patient.[facility] DaytonIn the event this information is protected by the Federal Confidentiality of Alcohol and Drug Abuse Patient Records regulations: The Federal rules restrict any use of the information to criminally investigate or prosecute any alcohol or drug abuse patient.[facility] DaytonIn the event this information is protected by the Federal Confidentiality of Alcohol and Drug Abuse Patient Records regulations: The Federal rules restrict any use of the information to criminally investigate or prosecute any alcohol or drug abuse patient.[facility] DaytonIn the event this information is protected by the Federal Confidentiality of Alcohol and Drug Abuse Patient Records regulations: The Federal rules restrict any use of the information to criminally investigate or prosecute any alcohol or drug abuse patient.[facility] DaytonIn the event this information is protected by the Federal Confidentiality of Alcohol and Drug Abuse Patient Records regulations: The Federal rules restrict any use of the information to criminally investigate or prosecute any alcohol or drug abuse patient.[facility] DaytonIn the event this information is protected by the Federal Confidentiality of Alcohol and Drug Abuse Patient Records regulations: The Federal rules restrict any use of the information to criminally investigate or prosecute any alcohol or drug abuse patient.[facility] DaytonIn the event this information is protected by the Federal Confidentiality of Alcohol and Drug Abuse Patient Records regulations: The Federal rules restrict any use of the information to criminally investigate or prosecute any alcohol or drug abuse patient.[facility] DaytonIn the event this information is protected by the Federal Confidentiality of Alcohol and Drug Abuse Patient Records regulations: The Federal rules restrict any use of the information to criminally investigate or prosecute any alcohol or drug abuse patient.[facility] DaytonIn the event this information is protected by the Federal Confidentiality of Alcohol and Drug Abuse Patient Records regulations: The Federal rules restrict any use of the information to criminally investigate or prosecute any alcohol or drug abuse patient.[facility] DaytonIn the event this information is protected by the Federal Confidentiality of Alcohol and Drug Abuse Patient Records regulations: The Federal rules restrict any use of the information to criminally investigate or prosecute any alcohol or drug abuse patient.[facility] DaytonIn the event this information is protected by the Federal Confidentiality of Alcohol and Drug Abuse Patient Records regulations: The Federal rules restrict any use of the information to criminally investigate or prosecute any alcohol or drug abuse patient.[facility] DaytonIn the event this information is protected by the Federal Confidentiality of Alcohol and Drug Abuse Patient Records regulations: The Federal rules restrict any use of the information to criminally investigate or prosecute any alcohol or drug abuse patient.[facility] DaytonIn the event this information is protected by the Federal Confidentiality of Alcohol and Drug Abuse Patient Records regulations: The Federal rules restrict any use of the information to criminally investigate or prosecute any alcohol or drug abuse patient.[facility] DaytonIn the event this information is protected by the Federal Confidentiality of Alcohol and Drug Abuse Patient Records regulations: The Federal rules restrict any use of the information to criminally investigate or prosecute any alcohol or drug abuse patient.[facility] DaytonIn the event this information is protected by the Federal Confidentiality of Alcohol and Drug Abuse Patient Records regulations: The Federal rules restrict any use of the information to criminally investigate or prosecute any alcohol or drug abuse patient.[facility] DaytonIn the event this information is protected by the Federal Confidentiality of Alcohol and Drug Abuse Patient Records regulations: The Federal rules restrict any use of the information to criminally investigate or prosecute any alcohol or drug abuse patient.[facility] DaytonIn the event this information is protected by the Federal Confidentiality of Alcohol and Drug Abuse Patient Records regulations: The Federal rules restrict any use of the information to criminally investigate or prosecute any alcohol or drug abuse patient.[facility] DaytonIn the event this information is protected by the Federal Confidentiality of Alcohol and Drug Abuse Patient Records regulations: The Federal rules restrict any use of the information to criminally investigate or prosecute any alcohol or drug abuse patient.[facility] DaytonIn the event this information is protected by the Federal Confidentiality of Alcohol and Drug Abuse Patient Records regulations: The Federal rules restrict any use of the information to criminally investigate or prosecute any alcohol or drug abuse patient.[facility] DaytonIn the event this information is protected by the Federal Confidentiality of Alcohol and Drug Abuse Patient Records regulations: The Federal rules restrict any use of the information to criminally investigate or prosecute any alcohol or drug abuse patient.[facility] DaytonIn the event this information is protected by the Federal Confidentiality of Alcohol and Drug Abuse Patient Records regulations: The Federal rules restrict any use of the information to criminally investigate or prosecute any alcohol or drug abuse patient.[facility] DaytonIn the event this information is protected by the Federal Confidentiality of Alcohol and Drug Abuse Patient Records regulations: The Federal rules restrict any use of the information to criminally investigate or prosecute any alcohol or drug abuse patient.[facility] Reason for Visit (unrecogniz ed section and content) Reason Comments Shortness of Breath Specialty Diagnoses / Procedures Referred By Contac t Referred To Contact Diagnoses Pneumothorax on left Acute respiratory failure with hypoxia (HCC) Procedures . Joseph Trejo MD [address] [place] [address] [facility] [address] [place] [address] Referral ID Status Reason Start Date Expiration Date Visits Re quested Visits Authorized [id number] Specialty Diagnoses / Procedures Referred By Contac t Referred To Contact CT IMAGING Diagnoses COPD, severe (HCC) Centrilobular emphysema (HCC) Tobacco use disorder Shortness of breath Procedures CT CHEST WO IVCON DIAGNOSTIC COMPUTED TOMOGRAPHY THORAX W/O CNTRST Antwan Buchanan, [address] [place] [address] Ct Imaging Referral ID Status Reason Start Date Expiration Date V isits Requested Visits Authorized [id number] Closed Auto-Generat ed Referral Patient Cleared - Admin/Chairm an/Director advise to proceed 05/29/2021 07/31/2021 1 1 Reason Comments Results Reason Comments Spirometry Specialty Diagnoses / Procedures Referred By Contac t Referred To Contact [facility] Diagnoses COPD, severe (HCC) Procedures SPIROMETRY WITH DILATOR IF OBSTRUCTED SPIROMETRY BEFORE/AFTER BRONCHODILATORS Jeison Franks MD [address] [place] [address] [facility] [place] [address] [place] [address] Referral ID Status Reason Start Date Expiration Date V isits Requested Visits Authorized [id number] Closed Auto-Generate d Referral 12/23/2020 01/22/2022 1 1 Specialty Diagnoses / Procedures Referred By Contac t Referred To Contact [facility] Diagnoses Stage 4 very severe COPD by GOLD classification (HCC) Procedures LUNG VOLUMES Manuel Block MD [address] [place] [address] [facility] [place] [address] [place] [address] Referral ID Status Reason Start Date Expiration Date V isits Requested Visits Authorized [id number] Closed Auto-Generate d Referral 07/16/2021 03/13/2022 1 1 Reason Comments Consult COPD Specialty Diagnoses / Procedures Referred By Contac t Referred To Contact Pulmonary and Critical Care Medicine Diagnoses Centrilobular emphysema (HCC) COPD, severe (HCC) Abnormal CT scan, lung Procedures CONSULT TO PULM/CRITICAL CARE OFFICE/OUTPATIENT [facility] 60-74 MINUTES Shelia Mahmood APRN.EMPLOYMENT OFFICER [address] [place] [address] Referral ID Status Reason Start Date Expiration Date V isits Requested Visits Authorized [id number] Closed PCP Requested Referral 06/11/2021 06/11/2022 1 1 Reason Onset Date Comments Refill Request 07/17/2021 Reason Onset Date Comments Outpatient Colonoscopy 08/27/2021 Reason Onset Date Comments Refill Request 04/01/2022 Reason Comments Follow Up Reason Comments Patient Question Reason Comments Choking Reason Comments Shortness of Breath Reason Comments Patient Update Reason Comments Follow Up Reason Comments Follow Up Reason Comments Return Call Request Reason Comments Referral - Lung Txp Reason Comments orders for lung transplant referral Reason Comments Received Outside Medical Records Reason Comments Lung Eval Reason Comments pre lung transplant education and consen t Reason Comments Missed Appointments Specialty Diagnoses / Procedures Referred By Contac t Referred To Contact TRANSPLANT Diagnoses Chronic obstructive pulmonary disease, unspecified COPD type (HCC) Pulmonary emphysema, unspecified emphysema type (HCC) Procedures CONSULT TO TRANSPLANT CENTER OFFICE/OUTPATIENT [facility] MDM 60 MINUTES DXA BONE DENSITY STUDY 1/> SITES AXIAL SKEL FLUOROSCOPY UP TO 1 HOUR PHYSICIAN/QHP TIME ESOPHAGEAL MOTILITY STUDY W/INTERP&RPT RADIOLOGIC EXAM ESOPHAGUS SINGLE CONTRAST STUDY L HRT CATH W/NJX L VENTRICULOGRAPHY IMG S&I RIGHT HEART CATH O2 SATURATION & CARDIAC OUTPUT RADIOLOGIC EXAM CHEST 4+ VIEWS DIAGNOSTIC COMPUTED TOMOGRAPHY THORAX C-/C+ PULMONARY VENTILATION & PERFUSION IMAGING US ABDOMINAL REAL TIME W/IMAGE LIMITED CT MAXILLOFACIAL W/O CONTRAST MATERIAL DUPLEX SCAN EXTRACRANIAL ART COMPL BI STUDY NON-INVASIVE PHYSIOLOGIC STUDY EXTREMITY 3 LEVLS PET IMAGING LIMITED AREA CHEST HEAD/NECK CT ABD & PELVIS W/O CONTRAST SPMTRY W/VC EXPIRATORY KEKE W/WO MXML VOL VNTJ CARDIOPULMONARY EXERCISE TESTING DIFFUSING CAPACITY BLOOD GASES ANY COMBINATION PH PCO2 PO2 CO2 HCO3 GAS DILUT/WASHOUT LUNG VOL W/WO DISTRIB VENT&VOL PLETHYSMOGRAPHY LUNG VOLUMES W/WO AIRWAY RESIST THERAPEUTIC PROPHYLACTIC/DX INJECTION SUBQ/IM QUANT DIFFERENTIAL PULM PERFUSION W/WO IMAGING DOPPLER ECHOCARD PULSE WAVE W/SPECTRAL DISPLAY CT ABD & PELVIS W/O CONTRAST Manuel Block MD [address] [place] [address] [facility] [address] [id number] Referral ID Status Reason Start Date Expiration Date Visits Requested Visits Authorized [id number] Authorized Financial Clearance Required - OON Payor Patient Cleared INN/SMCP Payor Auth Obtained 04/18/2023 04/17/[phone] Reason Comments Refill Request Specialty Diagnoses / Procedures Referred By Kat t Referred To Contact [facility] Diagnoses Chronic obstructive pulmonary disease, unspecified COPD type (HCC) Procedures OXIMETRY WITH AMBULATION NONINVASIVE EAR/PULSE OXIMETRY MULTIPLE DETER Manuel Block MD [address] [place] [address] [facility] [place] [address] [place] [address] Referral ID Status Reason Start Date Expiration Date V isits Requested Visits Authorized [id number] Closed Auto-Generate d Referral 12/09/2023 01/07/2025 1 1 Reason Onset Date Comments Refill Request 04/09/2024 Reason Comments Denial for Lung Transplant Reason Comments Yearly Exam Reason Onset Date Comments Refill Request 10/22/2024 Care Teams (unrecognized sec tion and content) Balance Screwhead Polisher Relationship Specialty Start Date End Date Antwan Buchanan, [address] [place], [place] [id number] PCP - General Family Practice 08/10/13 Balance Screwhead Polisher Relationship Specialty Start Date End Date Antwan Buchanan, DO [address] [place] [address] PCP - General Family Practice 08/10/13 Balance Screwhead Polisher Relationship Specialty Start Date End Date Antwan Buchanan, DO [address] [place] [address] PCP - General Family Practice 08/10/13 Balance Screwhead Polisher Relationship Specialty Start Date End Date Antwan Buchanan [address] [place] [address] PCP - General Family Medicine 07/10/21 Balance Screwhead Polisher Relationship Specialty Start Date End Date Antwan Buchanan, DO [address] [place] [address] PCP - General Family Practice 08/10/13 Balance Screwhead Polisher Relationship Specialty Start Date End Date Antwan Buchanan, DO [address] [place] [address] PCP - General Family Practice 08/10/13 Balance Screwhead Polisher Relationship Specialty Start Date End Date Antwan Buchanan, DO [address] [place] [address] PCP - General Family Practice 08/10/13 Balance Screwhead Polisher Relationship Specialty Start Date End Date Antwan Buchanan, DO [address] [place] [address] PCP - General Family Practice 08/10/13 Balance Screwhead Polisher Relationship Specialty Start Date End Date Antwan Buchanan, DO [address] [place] [address] PCP - General Family Practice 08/10/13 Balance Screwhead Polisher Relationship Specialty Start Date End Date Antwan Buchanan, DO [address] [place] [address] PCP - General Family Practice 08/10/13 Balance Screwhead Polisher Relationship Specialty Start Date End Date Antwan Buchanan, DO [address] [place] [address] PCP - General Family Medicine 08/10/13 Balance Screwhead Polisher Relationship Specialty Start Date End Date Antwan Buchanan, DO [address] [place] [address] PCP - General Family Medicine 08/10/13 Balance Screwhead Polisher Relationship Specialty Start Date End Date Antwan Buchanan, DO [address] [place] [address] PCP - General Family Medicine 08/10/13 Balance Screwhead Polisher Relationship Specialty Start Date End Date Antwan Buchanan DO [address] [place] [address] PCP - General Family Medicine 08/10/13 Team Status: Active Member Role Status Dates Dr. Antwan Buchanan DO Family Provider Active Dr. Antwan Buchanan DO Primary Care Provider Active Team Status: Active Member Role Status Dates Dr. Antwan Buchanan DO Primary Care Provider Active Dr. Kody Jj MD Emergency Provider Active Dr. Kelton Gutierrez MD Admit Provi faiza, Attending Provider, Other Provider Active Team Status: Active Member Role Status Dates Dr. Antwan Buchanan DO Primary Care Provider Active Dr. Kody Jj MD Emergency Provider Active Dr. Kelton Gutierrez MD Admit Provider, Other Pro vider Active Dr. Cuca Flood MD Other Provider Active Dr. Adán Berg DO Attending Provider Active Team Status: Active Member Role Status Dates Dr. Antwan Buchanan DO Primary Care Provider Active Dr. Adán Berg DO Attending Provider Active Team Status: Active Member Role Status Dates Dr. Antwan Buchanan DO Primary Care Provider Active Dr. Kody Jj MD Emergency Provider Active Dr. Kelton Gutierrez MD Admit Provider, Other Pro vider Active Dr. Cuca Flood MD Attending Provider, Other Provid er Active Team Status: Inactive Member Role Status Dates Dr. Antwan Buchanan DO Primary Care Provider Active Dr. Byron Vivas MD Attending Provider, Emergency Pro vider Active Team Status: Inactive Member Role Status Dates Dr. Antwan Buchanan DO Primary Care Provider Active Dr. Kody Jj MD Emergency Provider Active Dr. Kelton Gutierrez MD Admit Provider, Other Pro vider Active Dr. Cuca Flood MD Attending Provider Active Balance Screwhead Polisher Relationship Specialty Start Date End Date Antwan Buchanan [address] [place] [address] PCP - General 07/10/21 Balance Screwhead Polisher Relationship Specialty Start Date End Date Antwan Buchanan [address] [place] [address] PCP - General 07/10/21 Balance Screwhead Polisher Relationship Specialty Start Date End Date Antwan Buchanan [address] [place] [address] PCP - General 07/10/21 Balance Screwhead Polisher Relationship Specialty Start Date End Date Antwan Buchanan [address] [place] [address] PCP - General 07/10/21 Balance Screwhead Polisher Relationship Specialty Start Date End Date Antwan Buchanan DO [address] [place] [address] PCP - General Family Medicine 08/10/13 Balance Screwhead Polisher Relationship Specialty Start Date End Date Antwan Buchanan [address] [place] [address] PCP - General 07/10/21 Inez Alonzo PA-C [address] [place] [address] [id number] Physician Athletic Equipment Custodian Physician Athletic Equipment Custodian 02/06/23 Balance Screwhead Polisher Relationship Specialty Start Date End Date Antwan Buchanan DO [address] [place] [address] PCP - General Family Medicine 08/10/13 Balance Screwhead Polisher Relationship Specialty Start Date End Date Antwan Buchanan DO [address] [place] [address] PCP - General Family Medicine 08/10/13 Balance Screwhead Polisher Relationship Specialty Start Date End Date Antwan Buchanan DO [address] [place] [address] PCP - General Family Medicine 08/10/13 Balance Screwhead Polisher Relationship Specialty Start Date End Date nAtwan Buchanan DO [address] [place] [address] PCP - General Family Medicine 08/10/13 Balance Screwhead Polisher Relationship Specialty Start Date End Date Antwan Buchanan DO [address] [place] [address] PCP - General Family Medicine 08/10/13 Balance Screwhead Polisher Relationship Specialty Start Date End Date Antwan Buchanan DO [address] [place] [address] PCP - General Family Medicine 08/10/13 Team Status: Inactive Member Role Status Dates Dr. Antwan Buchanan DO Primary Care Provider Active Dr. Manuel Block MD Attending Provider, Referring Provider Active Balance Screwhead Polisher Relationship Specialty Start Date End Date Antwan Buchanan DO [address] [place] [address] PCP - General Family Medicine 08/10/13 Balance Screwhead Polisher Relationship Specialty Start Date End Date Antwan Buchanan DO [address] [place] [address] PCP - General Family Medicine 08/10/13 Balance Screwhead Polisher Relationship Specialty Start Date End Date Antwan Buchanan, [address] [place] [address] PCP - General Family Medicine 08/10/13 Balance Screwhead Polisher Relationship Specialty Start Date End Date Antwan Buchanan DO [address] [place] [address] PCP - General Family Medicine 08/10/13 Balance Screwhead Polisher Relationship Specialty Start Date End Date Antwan Buchanan DO [address] [place] [address] PCP - General Family Medicine 08/10/13 Balance Screwhead Polisher Relationship Specialty Start Date End Date Antwan Buchanan DO [address] [place] [address] PCP - General Family Medicine 08/10/13 Balance Screwhead Polisher Relationship Specialty Start Date End Date Antwan Buchanan DO [address] [place] [address] PCP - General Family Medicine 08/10/13 Balance Screwhead Polisher Relationship Specialty Start Date End Date Antwan Buchanan DO [address] [place] [address] PCP - General Family Medicine 08/10/13 Balance Screwhead Polisher Relationship Specialty Start Date End Date Antwan Buchanan DO [address] [place] [address] PCP - General Family Medicine 08/10/13 Balance Screwhead Polisher Relationship Specialty Start Date End Date Antwan Buchanan DO [address] [facility] [place] [address] PCP - General Family Medicine 08/10/13 Balance Screwhead Polisher Relationship Specialty Start Date End Date Antwan Buchanan DO [address] [facility] [place] [address] PCP - General Family Medicine 08/10/13 Balance Screwhead Polisher Relationship Specialty Start Date End Date Antwan Buchanan DO [address] [facility] [place] [address] PCP - General Family Medicine 08/10/13 Balance Screwhead Polisher Relationship Specialty Start Date End Date Antwan Buchanan DO [address] [place] [address] PCP - General Family Medicine 08/10/13 Balance Screwhead Polisher Relationship Specialty Start Date End Date Antwan Buchanan DO [address] [place] [address] PCP - General Family Medicine 08/10/13 Balance Screwhead Polisher Relationship Specialty Start Date End Date Antwan Buchanan DO [address] [place] [address] PCP - General Family Medicine 08/10/13 Shelia Garvey, DISPLAY SCREEN FABRICATOR.EMPLOYMENT OFFICER [address] [place] [address] Arch Support Technician Family Medicine 02/19/24 Steff Gruber APRN.EMPLOYMENT OFFICER [address] [place] [address] Arch Support Technician [facility] 02/19/24 Balance Screwhead Polisher Relationship Specialty Start Date End Date Antwan Buchanan DO [address] [place] [address] PCP - General Family Medicine 08/10/13 Shelia Garvey, DISPLAY SCREEN FABRICATOR.EMPLOYMENT OFFICER [address] [place] [address] Arch Support Technician Family [facility] 02/19/24 AllynSteff, DISPLAY SCREEN FABRICATOR.EMPLOYMENT OFFICER [address] [place] [address] [facility] 02/19/24 Balance Screwhead Polisher Relationship Specialty Start Date End Date Antwan Buchanan DO [address] [place] [address] PCP - General Family Medicine 08/10/13 Shelia Garvey, DISPLAY SCREEN FABRICATOR.EMPLOYMENT OFFICER [address] [place] [address] [facility] 02/[facility]/24 AllynSteff, DISPLAY SCREEN FABRICATOR.EMPLOYMENT OFFICER [address] [place] [address] [facility] 02/19/24 Balance Screwhead Polisher Relationship Specialty Start Date End Date Antwan Buchanan DO [address] [place] [address] PCP - General Family Medicine 08/10/13 Shelia Garvey, DISPLAY SCREEN FABRICATOR.EMPLOYMENT OFFICER [address] [place] [address] [facility] 02/[facility]/24 [facility], DISPLAY SCREEN FABRICATOR.EMPLOYMENT OFFICER [address] [place] [address] [facility] 02/19/24 Balance Screwhead Polisher Relationship Specialty Start Date End Date Antwan Buchanan, [address] [place] [address] PCP - General Family Medicine 08/10/13 [facility], DISPLAY SCREEN FABRICATOR.EMPLOYMENT OFFICER [address] [place] [address] [facility] 02/19/24 Balance Screwhead Polisher Relationship Specialty Start Date End Date Antwan Buchanan DO [address] [place] [address] PCP - General Family Medicine 08/10/13 [facility], DISPLAY SCREEN FABRICATOR.EMPLOYMENT OFFICER [address] [place] [address] [facility] 02/19/24 Balance Screwhead Polisher Relationship Specialty Start Date End Date Antwan Buchanan DO [address] [place] [address] PCP - General Family Medicine 08/10/13 [facility], DISPLAY SCREEN FABRICATOR.EMPLOYMENT OFFICER [address] [place] [address] [facility] 02/19/24 Balance Screwhead Polisher Relationship Specialty Start Date End Date Antwan Buchanan DO [address] [place] [address] PCP - General Family Medicine 08/10/13 Steff Gruber APRN.EMPLOYMENT OFFICER [address] [place], [place] [address] [facility] 02/19/24 Tanisha Scherer APRN.EMPLOYMENT OFFICER [address] [place] [address] [facility] 08/27/24 Ordered Prescriptions (unrec ognized section and content) Prescription Sig Dispensed Refills Start Date End Da te ciprofloxacin (CIPRO) 500 MG tablet Take 1 tablet by mouth 2 times daily for 7 days 14 tablet 0 07/12/2021 07/19/2021 pantoprazole (PROTONIX) 40 MG tablet Take 1 tablet by mouth every morning (before breakfast) 30 tablet 0 07/11/2021 Scheduled Active and Recently Administ ered Medications (unrecognized section and content) Medication Order 07/10/2021 07/11/2021 07/12/2021 buPROPion (WELLBUTRIN XL) extended release tablet 300 mg 300 mg, Oral, EVERY MORNING, First dose on Tiffanie 07/02/21 at 0900, Until Discontinued, Do not crush or break. 1042 (Given - Provider: William Warren RN) 0834 (Given - Provider: Kristan Qiu RN) 0948 (Given - Provider: Jessica Del Castillo, RN) ciprofloxacin (CIPRO) tablet 500 mg 500 mg, Oral, EVERY 12 HOURS SCHEDULED (2 times per day), 14 doses, First dose on 07/12/21 at 0900, Last dose on 07/18/21 at 2100, Antimicrobial Indications: Pneumonia (HAP), HAP duration of therapy: 7 days, LD 07/18@2100 Do not take with dairy products or calcium-fortified juices. Tube feeding (TF) interaction, obtain physician order to manage. Recommend holding TF for 1 hr before and 1 hr after dose. Due to decreased absorption do not give by J tube. 1232 (Given - Provider: Jessica Del Castillo, RN)2100 (Due) enoxaparin (LOVENOX) injection 40 mg 40 mg, SubCUTAneous, DAILY, First dose on Tiffanie 07/02/21 at 0900, Until Discontinued, Indication of Use: Prophylaxis-DVT/PE 1040 (Not Given - Provider: William Warren RN - Reason: Patient/family refused) 0834 (Not Given - Provider: Kristan Qiu RN - Reason: Patient/family refused) 0947 (Not Given - Provider: Jessica Del Castillo RN - Reason: Patient/family refused) guaiFENesin (MUCINEX) extended release tablet 600 mg 600 mg, Oral, 2 TIMES DAILY, First dose on Tue07/02/21 at 0030, Until Discontinued, Do not crush or break. 1041 (Given - Provider: William Warren RN)2026 (Given - Provider: Liz Lopez RN) 0834 (Given - Provider: Kristan Qiu RN)203 (Given - Provider: Marcia Long RN) 0947 (Given - Provider: Jessica Del Castillo RN)2100 (Due) ipratropium-albuterol (DUONEB) nebulizer solution 1 ampule 1 ampule, Inhalation, 3 TIMES DAILY, First dose (after last modification) on Tue07/08/21 at 2000, Until Discontinued, Initiate RT Bronchodilator Protocol: No 0925 (Not Given - Provider: Walter Sanchez RCP - Reason: Transfer to a Procedural area)1501 (Given - Provider: Walter Sanchez RCP)2000 (Due) 0946 (Given - Provider: Ramiro Santos RCP)1632 (Given - Provider: Ramiro Santos RCP)2122 (Given - Provider: Jessica Rodarte RCP) 0928 (Given - Provider: Ramiro Santos RCP)1400 (Due)2000 (Due) methylPREDNISolone sodium (SOLU-MEDROL) injection 80 mg (COMPLETED) 80 mg, IntraVENous, ONCE, On Tue07/10/21 at 1500, For 1 dose 1452 (Given - Provider: William Warren RN) pantoprazole (PROTONIX) tablet 40 mg 40 mg, Oral, DAILY BEFORE BREAKFAST, First dose on Tue07/09/21 at 0700, Until Discontinued, Do not crush or break. 1042 (Given - Provider: William Warren RN) 0834 (Given - Provider: Kristan Qiu RN) 0606 (Given - Provider: Marcia Long RN) piperacillin-tazobactam (ZOSYN) 3375 mg in dextrose 50 mL IVPB extended infusion (premix) (CANCELED) 3,375 mg, IntraVENous, EVERY 8 HOURS, First dose on 07/11/21 at 1245, Until Discontinued, Antimicrobial Indications: Pneumonia (CAP), CAP duration of therapy: 7 days, Suspected Organism(s): pseudomonas 1512 (New Bag - Provider: Kristan Qiu RN)203 (Stopped - Provider: Marcia Long RN)203 (New Bag - Provider: Marcia Long RN)2253 (Stopped - Provider: Marcia Long RN) 0413 (New Bag - Provider: Marcia Long RN)0800 (Stopped - Provider: Jessica Del Castillo RN) predniSONE (DELTASONE) tablet 40 mg 40 mg, Oral, DAILY WITH LUNCH, First dose on 07/11/21 at 1200, Until Discontinued 1520 (Given - Provider: Kristan Qiu RN) 1233 (Given - Provider: Jessica Del Castillo RN) sertraline (ZOLOFT) tablet 50 mg 50 mg, Oral, DAILY, First dose on Tiffanie 07/02/21 at 0900, Until Discontinued 1041 (Given - Provider: William Warren RN) 0834 (Given - Provider: Kristan Qiu RN) 0949 (Given - Provider: Jessica Del Castillo RN) sodium chloride flush 0.9 % injection 5-40 mL 5-40 mL, IntraVENous, EVERY 12 HOURS SCHEDULED (2 times per day), First dose on Tiffanie 07/02/21 at 0900, Until Discontinued, For Line Patency: Peripheral IV = 5 mL; Midline or Central Line = 10 mL/lumen. If following IV push medication, administer flush at same rate as the IV push. Flush volume is determined by type of infusion therapy being given. For non-viscous solutions use: Peripheral IV = 5 mL Midline or Central Line = 10 mL/lumen For viscous solutions (i.e. blood components, parenteral nutrition, contrast media, or after obtaining blood sample) use: Peripheral IV = 10 mL Midline or Central Line = 20 mL/lumen 1043 (Given - Provider: William Warren RN)2032 (Not Given - Provider: Liz Lopez RN - Reason: Other) 0835 (Given - Provider: Kristan Qiu RN)2034 (Not Given - Provider: Marcia Long RN - Reason: Other) 0952 (Given - Provider: Jessica Del Castillo RN)2100 (Due) tiotropium (SPIRIVA) inhalation capsule 18 mcg 18 mcg, Inhalation, DAILY, First dose on Tiffanie 07/02/21 at 0900, Until Discontinued, Please select a reason the therapeutic interchange was not accepted: Okay for Pharmacy to Substitute, Not for oral use. To ensure drug delivery the contents of each capsule should be inhaled twice 0925 (Not Given - Provider: Walter Sanchez RCP - Reason: Transfer to a Procedural area) 1001 (Given - Provider: Ramiro Santos RCP) 0941 (Given - Provider: Ramiro Santos RCP) PRN Medication Order 07/10/2021 07/11/2021 07/12/2021 0.9 % sodium chloride infusion IntraVENous, at 5-250 mL/hr, PRN, if patient receiving piggyback infusions and maintenance fluids are not ordered OR KVO fluids to protect IV site / prevent frequent line interruptions/ long duration, Starting on Tiffanie 07/02/21 at 0003, For piggyback infusion, administer at same rate as piggyback for a total of 25 mL. Enter 25 mL into dose field and piggyback rate into rate field of order. If piggyback is infusing at a rate less than 100 mL/hr, enter 25 mL into dose field and 100 mL/hr into rate field of order. For KVO fluids, enter rate of 20 mL/hr or less into rate field of order. acetaminophen (TYLENOL) suppository 650 mg(Linked Group 1) 650 mg, Rectal, EVERY 6 HOURS PRN, Starting on Tiffanie 07/02/21 at 0003, Until Discontinued, Pain Mild (1-3), Fever, For temp greater than 100.4 F (38 C), Administer if oral route cannot be used. 0134 (See Alternative - Provider: Liz Lopez RN) acetaminophen (TYLENOL) tablet 650 mg(Linked Group 1) 650 mg, Oral, EVERY 6 HOURS PRN, Starting on Tiffanie 07/02/21 at 0003, Until Discontinued, Pain Mild (1-3), Fever, For temp greater than 100.4 F (38 C), Maximum dose of acetaminophen is 4000 mg from all sources in 24 hours. 0134 (Given - Provider: Liz Lopez, ADELIA) aluminum & magnesium hydroxide-simethicone (MAALOX) 200-200-20 MG/5ML suspension 30 mL 30 mL, Oral, EVERY 6 HOURS PRN, Starting on Tiffanie 07/02/21 at 0003, Until Discontinued, Indigestion ixjetlbyyc-kcynzpftjcwgz-wl ffeine (FIORICET, ESGIC) per tablet 1 tablet 1 tablet, Oral, EVERY 4 HOURS PRN, Starting on 07/04/21 at 2227, Until Discontinued, Headaches, Maximum dose of acetaminophen is 4000 mg from all sources in 24 hours. 1457 (Given - Provider: William Warren RN) 1520 (Given - Provider: Kristan Qiu RN) ipratropium-albuterol (DUONEB) nebulizer solution 1 ampule 1 ampule, Inhalation, EVERY 4 HOURS PRN, Starting on Tue07/10/21 at 1434, Until Discontinued, Shortness of Breath, Initiate RT Bronchodilator Protocol: Yes ondansetron (ZOFRAN) injection 4 mg(Linked Group 2) 4 mg, IntraVENous, EVERY 6 HOURS PRN, Starting on Tiffanie 07/02/21 at 0003, Until Discontinued, Nausea, Vomiting, Administer if oral route cannot be used. ondansetron (ZOFRAN-ODT) disintegrating tablet 4 mg(Linked Group 2) 4 mg, Oral, EVERY 8 HOURS PRN, Starting on Tiffanie 07/02/21 at 0003, Until Discontinued, Nausea, Vomiting polyethylene glycol (GLYCOLAX) packet 17 g 17 g, Oral, DAILY PRN, Starting on Tiffanie 07/02/21 at 0003, Until Discontinued, Constipation, First line therapy for constipation sodium chloride flush 0.9 % injection 5-40 mL 5-40 mL, IntraVENous, PRN, Starting on Tiffanie 07/02/21 at 0003, Until Discontinued, Line Care, After every IV line use, For Line Patency: Peripheral IV = 5 mL; Midline or Central Line = 10 mL/lumen. If following IV push medication, administer flush at same rate as the IV push. Flush volume is determined by type of infusion therapy being given. For non-viscous solutions use: Peripheral IV = 5 mL Midline or Central Line = 10 mL/lumen For viscous solutions (i.e. blood components, parenteral nutrition, contrast media, or after obtaining blood sample) use: Peripheral IV = 10 mL Midline or Central Line = 20 mL/lumen traZODone (DESYREL) tablet 50 mg 50 mg, Oral, NIGHTLY PRN, Starting on Tiffanie 07/02/21 at 0003, Until Discontinued, Sleep 2026 (Given - Provider: Liz Lopez RN) 2031 (Given - Provider: Marcia Long RN) Linked Groups Order Group 1: acetaminophen (TYLENOL) tablet 650 mgJump to med 650 mg, Oral, EVERY 6 HOURS PRN, Starting on Tiffanie 07/02/21 at 0003, Until Discontinued, Pain Mild (1-3), Fever, For temp greater than 100.4 F (38 C)
Maximum dose of acetaminophen is 4000 mg from all sources in 24 hours.
Or acetaminophen (TYLENOL) suppository 650 mgJump to med 650 mg, Rectal, EVERY 6 HOURS PRN, Starting on Tiffanie 07/02/21 at 0003, Until Discontinued, Pain Mild (1-3), Fever, For temp greater than 100.4 F (38 C)
Administer if oral route cannot be used.
Group 2: ondansetron (ZOFRAN-ODT) disintegrating tablet 4 mgJump to med 4 mg, Oral, EVERY 8 HOURS PRN, Starting on Tiffanie 07/02/21 at 0003, Until Discontinued, Nausea, Vomiting Or ondansetron (ZOFRAN) injection 4 mgJump to med 4 mg, IntraVENous, EVERY 6 HOURS PRN, Starting on Tiffanie 07/02/21 at 0003, Until Discontinued, Nausea, Vomiting
Administer if oral route cannot be used.
Scheduled Medication Order 11/25/2022 11/26/2022 11/27/2022 ipratropium-albuterol (Duo-Neb) 0.5-2.5 mg/3 mL nebulizer solution 3 mL (COMPLETED) 3 mL, Nebulization, Once, On 11/27/22 at 2014, For 1 dose 2023 (Given - Provid er: Maeve Jauregui RN) Scheduled Medication Order 12/02/2022 12/03/2022 12/04/2022 ipratropium-albuterol (Duo-Neb) 0.5-2.5 mg/3 mL nebulizer solution 3 mL (COMPLETED) 3 mL, Nebulization, Once, On 12/04/22 at 0200, For 1 dose 0222 (Given - Provid er: Gerald Rosario RN) sodium chloride 0.9 % bolus 500 mL (COMPLETED) 500 mL, IntraVENous, at 500 mL/hr, Administer over 1 Hours, Once, On 12/04/22 at 0255, For 1 dose 0320 (New Bag - Prov ider: Gerald Rosario, RN)0420 (Stopped - Provider: Gerald Rosario, RN) Scheduled Medication Order 02/06/2023 02/07/2023 02/08/2023 barium sulfate (E-Z-Paque) 96 % suspension 30 mL (COMPLETED) 30 mL, Oral, Once, On 02/06/23 at 1000, For 1 dose 1000 (Given - Provider: Theresa Kelly RN - Comment: per MBS in radiology) bisacodyl (Dulcolax) suppository 10 mg (CANCELED) 10 mg, Rectal, Daily, First dose on Tue02/02/23 at 1600 0843 (Given - Provider: Theresa Kelly, ADELIA) budesonide (Pulmicort) 0.5 MG/2ML nebulizer solution 0.5 mg 0.5 mg, Nebulization, Daily, First dose on Tiffanie 01/27/23 at 0800, Rinse mouth with water after use to reduce aftertaste and incidence of candidiasis. Do not swallow. 0834 (Given - Provider: Darcy White RCP) 0811 (Given - Provider: Sj Rowley, AUTOMATIC SPLICING MACHINE OPERATOR) 0929 (Given - Provider: Anthony Ward, SERGE) buPROPion XL (Wellbutrin XL) 24 hr tablet 300 mg 300 mg, Oral, Daily, First dose on Tiffanie 01/27/23 at 0900, Do not crush, chew, or split. 0900 (Dose Auto Held) 0839 (Unheld by provider - Provider: Jordin Larsen, DISPLAY SCREEN FABRICATOR - EMPLOYMENT OFFICER)0900 (Not Given - Provider: Anselmo Coello RN - Reason: Patient/family refused) 0900 (Not Given - Provider: Diallo Perez RN - Reason: Patient/family refused) enoxaparin (Lovenox) syringe 40 mg 40 mg, SubCUTAneous, Every 24 hours scheduled (Daily), First dose on Tue01/27/23 at 0900, Indication of Use: Prophylaxis-DVT/PE, Indications: Prophylaxis of Venous Thromboembolism 0842 (Given - Provider: Theresa Kelly RN) 0924 (Given - Provider: Anselmo Coello RN) 0900 (Not Given - Provider: Diallo Perez RN - Reason: Patient/family refused) ferrous sulfate tablet 325 mg 325 mg, Oral, Every other day, First dose (after last modification) on Tue02/01/23 at 0900, On hold since Tue02/04/2023 at 0710 until manually unheld 0900 (Dose Auto Held - Provider: Darcy Dickson MD) 170 (Unheld by provider - Provider: Automatic Discharge Provider) influenza vac subunit quadrivalent (Flucelvax) injection 0.5 mL 0.5 mL, IntraMUSCular, Prior to discharge, Starting on Tue01/27/23 at 0900, For 1 dose Insulin Lispro (Humalog) injection 0-12 Units 0-12 Units, SubCUTAneous, 4 times daily before meals & nightly, First dose (after last modification) on Tue02/07/23 at 1100, Medium Dose Correction Algorithm Glucose: Dose: LESS than 139 No Insulin 140-199 2 Unit 200-249 4 Units 250-299 6 Units 300-349 8 Units 350-400 10 Units Above 400 12 Units 1100 (Not Given - Provider: Anselmo Coello RN - Reason: Patient/family refused - Comment: Pt refused insulin and blood sugar check.)1700 (Not Given - Provider: Anselmo Coello RN - Reason: Patient/family refused - Comment: Pt refused blood sugar check and insulin.)2100 (Not Given - Provider: Juan Casanova RN - Reason: Patient/family refused - Comment: refused blood sugar check) 0800 (Not Given - Provider: Diallo Perez RN - Reason: Patient/family refused)1100 (Not Given - Provider: Diallo Perez RN - Reason: Patient/family refused)1700 (Canceled Entry - Provider: Automatic Discharge Provider - Comment: Automatically canceled at discontinue of medication order) ipratropium-albuterol (Duo-Neb) 0.5-2.5 mg/3 mL nebulizer solution 3 mL 3 mL, Nebulization, 3 times daily, First dose (after last modification) on Tue02/04/23 at 2130 0834 (Given - Provider: Darcy White RCP)1301 (Given - Provider: DESEAN BeauchampP)2004 (Given - Provider: Marlene Sandoval RRT) 0811 (Given - Provider: Sj Rowley RRT)1241 (Given - Provider: Sj Rowley RRT)1999 (Given - Provider: Marlene Sandoval RRT) 0929 (Given - Provider: Anthony Ward RRT)1319 (Given - Provider: Anthony Ward RRT) Lidocaine 4 % patch 1 patch 1 patch, TransDERmal, Administer over 12 Hours, Daily, First dose on Tue02/01/23 at 1200, Apply patch to back. Patch may remain in place for up to 12 hours in any 24 hour period. 0842 (Medication Applied - Provider: Theresa Kelly RN)204 (Medication Removed - Provider: Neftali Hennessy RN) 0924 (Medication Applied - Provider: Anselmo Coello RN - Comment: Back.)212 (Medication Removed - Provider: Carline Roche RN) 0948 (Medication Applied - Provider: Diallo Perez RN - Comment: back)1500 (Due: Medication Removed - Provider: Automatic Discharge Provider - Comment: Time automatically adjusted from order being discontinued) nicotine (Nicoderm, Step 1) 21 MG/24HR patch 1 patch 1 patch, TransDERmal, Administer over 24 Hours, Daily, First dose on Tue01/26/23 at 2100, Apply new patch to nonhairy, clean, dry skin on the upper body or upper outer arm. Rotate patch sites. Notify Pharmacy if patient or provider prefers patch to be removed at bedtime and replaced in the morning. 0842 (Medication Applied - Provider: Theresa Kelly RN) 0842 (Medication Removed - Provider: Anselmo Coello RN)0923 (Medication Applied - Provider: Anselmo Coello RN) 0859 (Medication Removed - Provider: Diallo Perez RN)0900 (Not Given - Provider: Diallo Perez RN - Reason: Patient/family refused) pantoprazole (ProtoNix) 40 mg in sodium chloride (PF) 0.9 % 10 mL injection(Linked Group 1) 40 mg, IntraVENous, Administer over 2 Minutes, Nightly, First dose on 01/30/23 at 2100, Give only if unable to tolerate po. 2099 (See Alternative - Provider: Neftali Hennessy RN) 2008 (See Alternative - Provider: Juan Casanova, ADELIA) pantoprazole (ProtoNix) EC tablet 40 mg(Linked Group 1) 40 mg, Oral, Nightly, First dose on Tue01/30/23 at 2100, Do not crush, chew, or split. 2099 (Not Given - Provider: Neftali Hennessy RN - Reason: Patient/family refused) 2008 (Given - Provider: Juan Casanova, ADELIA) potassium chloride 40 mEq in NS 500 mL IVPB (premix) (COMPLETED) 40 mEq, IntraVENous, at 125 mL/hr, Administer over 4 Hours, Once, On Tue02/07/23 at 1000, For 1 dose, Max infusion rate = 10 mEq/hr 1059 (New Bag - Provider: Anselmo Coello, ADELIA)1459 (Stopped - Provider: Anselmo Coello RN) potassium chloride CR (Klor-Con M10) ER tablet 20 mEq (COMPLETED) 20 mEq, Oral, Once, On Tue02/08/23 at 1115, For 1 dose, Best given with food and plenty of water to minimize gastric irritation. Do not crush or chew. 1202 (Given - Provider: Diallo Perez RN) senna-docusate sodium (Senokot-S) 8.6-50 MG tablet 1 tablet 1 tablet, Oral, 2 times daily, First dose on Tue01/26/23 at 2100, On hold since Tue02/04/2023 at 0710 until manually unheld 0900 (Dose Auto Held - Provider: Darcy Dickson MD)2099 (Dose Auto Held - Provider: Darcy Dickson MD) 0900 (Dose Auto Held - Provider: Darcy Dickson MD)2099 (Dose Auto Held - Provider: Darcy Dickson MD) 0900 (Dose Auto Held - Provider: Darcy Dickson MD)1706 (Unheld by provider - Provider: Automatic Discharge Provider) sertraline (Zoloft) tablet 100 mg 100 mg, Oral, Daily, First dose on Tue01/27/23 at 0900 0900 (Dose Auto Held - Provider: Darcy Dickson MD)1237 (Unheld by provider - Provider: Inez Alonzo PA-C) 0900 (Not Given - Provider: Anselmo Coello, ADELIA - Reason: Patient/family refused) 0948 (Given - Provider: Diallo Perez, ADELIA) Continuous Medication Order 02/06/2023 02/07/2023 02/08/2023 lactated Ringer's infusion (CANCELED) 75 mL/hr, IntraVENous, Continuous, Starting on Tue02/04/23 at 1745 1416 (New Bag - Provider: Theresa Kelly, RN)1829 (Rate/Dose Verify - Provider: Theresa Kelly, RN) 1400 (Stopped - Provider: Anselmo Coello, RN) PRN Medication Order 02/06/2023 02/07/2023 02/08/2023 Acetaminophen (Tylenol) 650 MG/20.3ML solution 650 mg(Linked Group 2) 650 mg, Oral, Every 4 hours PRN, mild pain (1-3), Starting on Tue01/28/23 at 1540, Give oral liquid if patient prefers or per feeding tube if present. If inadequate response within 60 minutes, proceed to next-line agent for same PRN reason or contact provider if no further options ordered. acetaminophen (Tylenol) suppository 650 mg(Linked Group 2) 650 mg, Rectal, Every 4 hours PRN, mild pain (1-3), Starting on Tue01/28/23 at 1540, Give AL if unable to administer by mouth or feeding tube. If inadequate response within 60 minutes, proceed to next-line agent for same PRN reason or contact provider if no further options ordered. acetaminophen (Tylenol) tablet 650 mg(Linked Group 2) 650 mg, Oral, Every 4 hours PRN, mild pain (1-3), Starting on Tue01/28/23 at 1540, If inadequate response within 60 minutes, proceed to next-line agent for same PRN reason or contact provider if no further options ordered. albuterol (2.5 MG/3ML) 0.083% nebulizer solution 2.5 mg 2.5 mg, Nebulization, Every 2 hour PRN, wheezing, Starting on Tue01/26/23 at 2003, Initiate RT Bronchodilator Protocol: 2343 (Given - Provider: Ron Hickey, AUTOMATIC SPLICING MACHINE OPERATOR) bisacodyl (Dulcolax) suppository 10 mg 10 mg, Rectal, Daily PRN, constipation, Starting on Tue02/06/23 at 1230 dextrose 5 % infusion 100 mL/hr, IntraVENous, PRN, Blood sugar less than 70mg/dL, Starting on Tue01/26/23 at 2137, Start infusion following administration of dextrose 50% or glucagon. dextrose 50 % solution 12.5 g 12.5 g, IntraVENous, PRN, low blood sugar, Blood glucose less than 70 mg/dL and patient NOT ALERT or NPO., Starting on Tue01/26/23 at 2137, If patient does not respond within 5 minutes, repeat dose x1. Start D5W at 100 mL/hour until ordering provider can be reached. Repeat blood glucose in 15 minutes. If blood glucose is less than 70 mg/dL, repeat treatment and recheck blood glucose in 15 minutes x2. If using Glucostabilizer, dose as instructed per system. diphenhydrAMINE (BENADryl) injection 25 mg(Linked Group 3) 25 mg, IntraVENous, Every 6 hours PRN, itching, Starting on 02/06/23 at 1828 1841 (Given - Provider: Theresa Kelly RN) 224 (Given - Provider: Neftali Hennessy, ADELIA)123 (See Alternative - Provider: Anselmo Coello, RN)2133 (Given - Provider: Carline Roche, RN) 0442 (See Alternative - Provider: Carline Roche, RN)0955 (Given - Provider: Diallo Perez, RN) diphenhydrAMINE (BENADryl) tablet/capsule 25 mg(Linked Group 3) 25 mg, Oral, Every 6 hours PRN, itching, Starting on Tue02/06/23 at 1828 1841 (See Alternative - Provider: Theresa Kelly, ADELIA) 224 (See Alternative - Provider: Neftali Hennessy, ADELIA)123 (Given - Provider: Anselmo Coello, RN)2133 (See Alternative - Provider: Carline Roche, RN) 0442 (Given - Provider: Carline Roche, RN)0955 (See Alternative - Provider: Diallo Perez, RN) glucagon (human recombinant) injection 1 mg 1 mg, IntraMUSCular, PRN, low blood sugar, Blood glucose less than 70 mg/dL and patient NOT ALERT or NPO and does not have IV access., Starting on Tue01/26/23 at 2137, After administration, attempt intravenous access and start D5W at 100 mL/hr. Repeat blood glucose in 15 minutes x2 and notify provider. glucose oral gel 15 g 15 g, Oral, As needed, low blood sugar, Starting on Tue01/26/23 at 2137, If blood glucose less than 50 mg/dL and patient ALERT and NOT NPO, give 2 tubes glucose gel. If blood glucose less than 70 mg/dL and patient ALERT and NOT NPO, give 1 tube glucose gel. Repeat blood glucose in 15 minutes. If blood glucose is less than 70 mg/dL, repeat treatment and recheck blood glucose in 15 minutes x2 and notify provider. hydrOXYzine (Vistaril) injection 25 mg (CANCELED) 25 mg, IntraMUSCular, Every 6 hours PRN, anxiety, Starting on Tue02/04/23 at 2123 0053 (Given - Provider: Neftali Hennessy RN) hydrOXYzine pamoate (Vistaril) capsule 25 mg (CANCELED) 25 mg, Oral, Every 6 hours PRN, itching, anxiety, Starting on Tue01/26/23 at 2134 1229 (Unheld by provider - Provider: Inez Alonzo PA-C)1549 (Given - Provider: Simon Chaudhrai RN) magnesium sulfate IVPB 4,000 mg(Linked Group 4) 4,000 mg, IntraVENous, at 25 mL/hr, Administer over 4 Hours, As needed, Per Magnesium Replacement Protocol, Starting on Tue01/30/23 at 0519, Mg Lab Replacement Action 1.4-1.6 2 gram IVPB x 1 doses 1.0-1.3 4 gram IVPB x 1 doses Less than 1.0 CALL PHYSICIAN and 4 gram IVPB x 1 doses Infuse at 1 gram/hr. Repeat Mag level next AM. Not for use in Patients with CrCl less than 30 mL/min. magnesium sulfate IVPB premix 2,000 mg(Linked Group 4) 2,000 mg, IntraVENous, at 25 mL/hr, Administer over 2 Hours, As needed, Per Magnesium Replacement Protocol, Starting on Tue01/30/23 at 0519, Mg Lab Replacement Action 1.4-1.6 2 gram IVPB x 1 doses 1.0-1.3 4 gram IVPB x 1 doses Less than 1.0 CALL PHYSICIAN and 4 gram IVPB x 1 doses Infuse at 1 gram/hr. Repeat Mag level next AM. Not for use in Patients with CrCl less than 30 mL/min. ondansetron (Zofran) injection 4 mg(Linked Group 5) 4 mg, IntraVENous, Every 6 hours PRN, nausea, vomiting, Starting on Tue01/26/23 at 2002, 1st Line. Give IV if patient is unable to take orally. If inadequate response within 60 minutes, proceed to next-line agent or contact provider if no further options ordered. 0842 (Given - Provider: Theresa Kelly, ADELIA) ondansetron ODT (Zofran-ODT) disintegrating tablet 4 mg(Linked Group 5) 4 mg, Oral, Every 8 hours PRN, nausea, vomiting, Starting on Tue01/26/23 at 2002, 1st Line. If inadequate response within 60 minutes, proceed to next-line agent or contact provider if no further options ordered. Patient should allow tablet to dissolve on tongue. Do not remove from blister pack until just before administering. 0842 (See Alternative - Provider: Theresa Kelly, ADELIA) promethazine (Phenergan) injection 12.5 mg(Linked Group 6) 12.5 mg, IntraMUSCular, Every 6 hours PRN, nausea, vomiting, Starting on 02/05/23 at 1838, Only to be given as IM injection. 1301 (See Alternative - Provider: Theresa Kelly, RN) promethazine (Phenergan) suppository 12.5 mg(Linked Group 6) 12.5 mg, Rectal, Every 6 hours PRN, nausea, vomiting, Starting on 02/05/23 at 1838 1301 (See Alternative - Provider: Theresa Kelly, RN) promethazine (Phenergan) tablet 12.5 mg(Linked Group 6) 12.5 mg, Oral, Every 6 hours PRN, nausea, vomiting, Starting on 02/05/23 at 1838 1301 (Given - Provider: Theresa Kelly, ADELIA) Linked Groups Order Group 1: pantoprazole (ProtoNix) EC tablet 40 mgJump to med 40 mg, Oral, Nightly, First dose on 01/30/23 at 2100, Do not crush, chew, or split. Or pantoprazole (ProtoNix) 40 mg in sodium chloride (PF) 0.9 % 10 mL injectionJump to med 40 mg, IntraVENous, Administer over 2 Minutes, Nightly, First dose on Tue01/30/23 at 2100, Give only if unable to tolerate po. Group 2: acetaminophen (Tylenol) tablet 650 mgJump to med 650 mg, Oral, Every 4 hours PRN, mild pain (1-3), Starting on Tue01/28/23 at 1540, If inadequate response within 60 minutes, proceed to next-line agent for same PRN reason or contact provider if no further options ordered. Or Acetaminophen (Tylenol) 650 MG/20.3ML solution 650 mgJump to med 650 mg, Oral, Every 4 hours PRN, mild pain (1-3), Starting on Tue01/28/23 at 1540, Give oral liquid if patient prefers or per feeding tube if present. If inadequate response within 60 minutes, proceed to next-line agent for same PRN reason or contact provider if no further options ordered. Or acetaminophen (Tylenol) suppository 650 mgJump to med 650 mg, Rectal, Every 4 hours PRN, mild pain (1-3), Starting on Tue01/28/23 at 1540, Give AL if unable to administer by mouth or feeding tube. If inadequate response within 60 minutes, proceed to next-line agent for same PRN reason or contact provider if no further options ordered. Group 3: diphenhydrAMINE (BENADryl) injection 25 mgJump to med 25 mg, IntraVENous, Every 6 hours PRN, itching, Starting on Tue02/06/23 at 1828 Or diphenhydrAMINE (BENADryl) tablet/capsule 25 mgJump to med 25 mg, Oral, Every 6 hours PRN, itching, Starting on Tue02/06/23 at 1828 Group 4: magnesium sulfate IVPB premix 2,000 mgJump to med 2,000 mg, IntraVENous, at 25 mL/hr, Administer over 2 Hours, As needed, Per Magnesium Replacement Protocol, Starting on Tue01/30/23 at 0519, Mg Lab Replacement Action 1.4-1.6 2 gram IVPB x 1 doses 1.0-1.3 4 gram IVPB x 1 doses Less than 1.0 CALL PHYSICIAN and 4 gram IVPB x 1 doses Infuse at 1 gram/hr. Repeat Mag level next AM. Not for use in Patients with CrCl less than 30 mL/min. Or magnesium sulfate IVPB 4,000 mgJump to med 4,000 mg, IntraVENous, at 25 mL/hr, Administer over 4 Hours, As needed, Per Magnesium Replacement Protocol, Starting on 01/30/23 at 0519, Mg Lab Replacement Action 1.4-1.6 2 gram IVPB x 1 doses 1.0-1.3 4 gram IVPB x 1 doses Less than 1.0 CALL PHYSICIAN and 4 gram IVPB x 1 doses Infuse at 1 gram/hr. Repeat Mag level next AM. Not for use in Patients with CrCl less than 30 mL/min. Group 5: ondansetron ODT (Zofran-ODT) disintegrating tablet 4 mgJump to med 4 mg, Oral, Every 8 hours PRN, nausea, vomiting, Starting on Tue01/26/23 at 2002, 1st Line. If inadequate response within 60 minutes, proceed to next-line agent or contact provider if no further options ordered. Patient should allow tablet to dissolve on tongue. Do not remove from blister pack until just before administering. Or ondansetron (Zofran) injection 4 mgJump to med 4 mg, IntraVENous, Every 6 hours PRN, nausea, vomiting, Starting on Tue01/26/23 at 2002, 1st Line. Give IV if patient is unable to take orally. If inadequate response within 60 minutes, proceed to next-line agent or contact provider if no further options ordered. Group 6: promethazine (Phenergan) tablet 12.5 mgJump to med 12.5 mg, Oral, Every 6 hours PRN, nausea, vomiting, Starting on 02/05/23 at 1838 Or promethazine (Phenergan) injection 12.5 mgJump to med 12.5 mg, IntraMUSCular, Every 6 hours PRN, nausea, vomiting, Starting on 02/05/23 at 1838, Only to be given as IM injection. Or promethazine (Phenergan) suppository 12.5 mgJump to med 12.5 mg, Rectal, Every 6 hours PRN, nausea, vomiting, Starting on 02/05/23 at 1838 (unrecognized sect ion and content) No Status Records FoundNo Status Records FoundNo Status Records FoundNo Status Records FoundNo Status Records Found INFORMATION SOURCE (unrecogn ized section and content) DATE CREATED AUTHOR 07/24/2021 for; [facility] [employer] DATE CREATED AUTHOR AUTHOR'S ORGANIZ ATION 08/06/2021 [facility] ([place] DATE CREATED AUTHOR AUTHOR'S ORGANIZ ATION 02/17/[address] [facility] [employer] [facility] DATE CREATED AUTHOR AUTHOR'S ORGANIZ ATION 04/29/2024 [facility] DATE CREATED AUTHOR AUTHOR'S ORGANIZ ATION 08/17/2024 [facility] Goals (unrecognized section and content) Goals may be documented in a n alternate section FOR RECORDS PERTAINING TO PATIENTS WHO ARE OR HAVE BEEN ENROLLED IN A CHEMICAL DEPENDENCY/SUBSTANCEABUSE PROGRAM, SOME INFORMATION MAY BE OMITTED. This clinical summary was aggregated from multiple sources. Caution should be exercised in using it in the provision of clinical care. This summary normalizes information from multiple sources, and as a consequence, information in this document may materially change the coding, format and clinical context of patient data. In addition, data may be omitted in some cases. CLINICAL DECISIONS SHOULD BE BASED ON THE PRIMARY CLINICAL RECORDS. [employer] [facility] provides no warranty or guarantee of the accuracy or completeness of information in this document.
--- OUTSIDE RECORDS SUMMARY | 2024-10-22 21:49 | XMS RPT_ITS | CCD ---
Author Organization [facility] ion Partnership [facility] Care Team Providers Care Broadband Engineer Name Role Phone Antwan Buchanan DO Primary [...] Care Unavailable TONY FIGUEROA Attending Unavailable RAMON CUNHA Referring Unavailable BUCHANAN, ANTWAN Primary Care Unavailable MARLENASHTONY A Referring Unavailable BUCHANAN, ANTWAN Primary Care Unavailable SHIREENAIN, KELTON Referring Unavailable BUCHANAN, ANTWAN Primary Care Unavailable RAMON CUNHA Referring Unavailable BUCHANAN, ANTWAN Primary Care Unavailable Buchanan Antwan CASILLAS L Primary Care Provider Guru TRAFFIC INCIDENT MANAGEMENT MANAGER.Shelia VINCENT Unavailable Allyn TRAFFIC INCIDENT MANAGEMENT MANAGER.Steff VINCENT Unavailable Layla, Sharita Neelima Referring Unavailable [...] MICHELLE ANTWAN L Primary Care Unavailable Niesha TRAFFIC INCIDENT MANAGEMENT MANAGER.Tanisha VINCENT Unavailable [phone] Allergies Allergy Classification Reported Allergen(s) Allergy Type Date of Onset Reaction(s) Facility (20 sources) Codeine; Translations: [codeine] Drug Allergy 6 Other: See Comments, Unknown (qualifier value) [facility] (20 sources) traMADol; Translations: [TRAMADOL HCL] Drug Allergy 8 Swelling [facility] (18 sources) traMADol; Translations: [tramadol] Drug Allergy 8 Anaphylaxis (disorder), Swelling, Anaphylaxis [facility] Comment on above: tongue swelling (17 sources) Tomatoes; Translations: [TOMATOES] Food Allergy 4 Unknown [facility] Work Phone: (1 source) Codeine Drug Allergy 5 [facility] Repository (1 source) traMADol Drug Allergy 5 [facility] Medications Current Medications Medication Drug [...] Central Nervous System Stimulant, Methylxanthine Start: 07-04-2021 kbixapqgfj-ozhmqitewfjza-hpw feine (FIORICET, ESGIC) per tablet 1 tablet [...] every week vitamin D (ERGOCALCIFEROL) 1.25 MG (04626 UT) CAPS capsule Take 1 capsule by [...] 74.9 Start Date: 06/05/20 Status: Ordered nystatin 130924 unt/ml oral suspension (1 source) Polyene Antifungal Start: 03-22-19 Nystatin Active 315068 UNIT PO DAILY March 22, 2021 3:20pm [...] 18 mcg, Inhalation, DAILY, First dose on [facility] 07/02/21 at 0900, Until Discontinued Please select [...] puff(s) by in halation once daily Tiotropium [place] (Spiriva With Handihaler) 1 PUFF inhaler Active [...] (Normalized) Sig (Original) 20 ml albumin human, retirement 250 mg/ml injection (4 sources) Human Serum [...] 4 very severe COPD by GOLD classification ([facility]) Inhale 3 mL as instructed every 4 hours as needed for wheezing/shortness of breath. 120 Vial 5 07/29/2021 Active Start: 07-29-2021 Start: 07-16-2021 take 3 mL by inhalat ion every four hours as needed for wheezing ipratropium-albuterol (DUONEB) 0.5 mg-3 mg(2.5 mg base)/3 mL nebu Indications: Stage 4 very severe COPD by GOLD classification ([facility]) Inhale 3 mL as instructed every 4 [...] qDay, # 4 tab(s), 0 Refill(s), Pharmacy: [address], 177.8, cm, 06/20/20 10:49:00 EDT, Height, [...] mg docusate sodium 50 mg / sennosides, retirement 8.6 mg oral tablet (2 sources) Start: [...] 12/29/2018 11/19/2020 Discontinued (Course of therapy completed) amduffdwmsn-fnlqaaocc-rcuvll er (TRELEGY ELLIPTA) 200-62.5-25 mcg inhalation powder (6 sources) Start: 07-29-2021 End: 07-31-2021 take 1 puff(s) by inhalation once daily notuaksqryl-rdtrjstww-fznwsuvr (TRELEGY ELLIPTA) 200-62.5-25 mcg inhalation powder Inhale 1 Puff as instructed once daily. 1 Each 07/29/2021 07/31/2021 Discontinued (Not on Formulary) Start: 07-16-2021 take 1 puff(s) by inhalation once daily ovifnikwvve-hzuenfamb-fsuerurt (TRELEGY ELLIPTA) 200-62.5-25 mcg inhalation powder Inhale [...] tab(s), 0 Refill(s), [facility], 177.8, cm, 06/20/20 10:49:00 EDT, [...] IVPB extended infusion (premix) polyethylene glycol 3350 31212 mg powder for oral solution (3 sources) [...] (1-3), Starting on Tue01/28/23 at 1540, Give GA if unable to administer by mouth or [...] Long-term current use of systemic steroid; Translations: [halfway (current) 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] 04-21-2023 Episodic [...] Test Name Value Interpretation Reference Range Facility [facility] 07-31-2024 CNOV Office Visit (FAMPWS ) LUIS STEELE II ([id number]) 1970 M Date Time Provider Department 07/31/24 2:20 PM ANTWAN BUCHANAN [facility] During your visit today, we recorded [...] SPEC WHEN PFRMD 2012 EGD 02/02/2018 [place]. Hp-, mild chronic gastritis PAST SURGICAL HISTORY [...] Age of Onset Allergies Mother Heart Mother SC Stroke Mother Liver Cancer Mother Lung Cancer [...] (primary halle (more content not included)... [facility],LUIS Christie II ([id number]) 1970 M Date Time Provider Department 07/31[facility]24 [facility] today, we recorded the following information about you: Dayami El RN 07/31/2024 4:00 PM Signed Arianna with [facility] Lung Transplant Floor [facility] [place] called in and states Pt was referred [...] to give the provider her mobile # [phone] to call back. ADELIA Carr Amanda, RN [...] 08/02/2023 Lung nodule < 6cm on CT [[id number]] 05/2021 Pneumothorax [J93.9] 02/18/2023 Stage 4 very severe COPD by GOLD classification* 023 Fatigue [R53.83] 02/18/2023 Preoperative respiratory examination [Z01.811] 08/02/2023 Encounter Status:Closed by DAYAMI EL on 08/08/24 [facility] CNPN Telephone (PULTMN) CALL,LUIS Christie II ([id number]) 1970 M Date Time Provider Department 07/31/24 ARIANNA PARKER ([facility]) PULTMN During your visit today, we recorded [...] 08/02/2023 Lung nodule < 6cm on CT [HUE9010] 05/2021 Pneumothorax [J93.9] 02/18/2023 Stage 4 very severe COPD by GOLD classification* 023 Fatigue [R53.83] 02/18/2023 Preoperative respiratory examination [Z01.811] 08/02/2023 Encounter Status:Closed by ARIANNA PARKER on 07/31/24 Normal [facility] OXIMETRY WITH AMBULATIONon 0 04-06-2024 JayashreeconradKofiJOYA [...] April 06, 2024 TIME: 2:28 PM Comment: [facility] Culture, Blood (WB)on 2024 CUB Blood cultures x2, from two different sites ANAEROBIC BOTTLE POSITIVE. GRAM STAIN= GRAM POSITIVE BACILLI Culture, Blood (WB) RESULTS CALLED TO PCP, DR. ANTWAN BUCHANAN 03/18/24 0813 Deja Ritter. REPORT READ BACK BY . Culture, Blood (WB) [facility] Cutibacterium acnes Amount Growth Growth Cutibacterium acnes: REACTION Moxifloxacin Islt MARISOL <=2 Penicillin Islt MARISOL 0.5 S Minocycline Islt MARISOL 4 S Normal [facility] Comment on above: Performed By: #### L 503.6620, L500.2500, L501.5200, L509.7000 #### [facility] [address] [place], [address] Culture, Blood (WB)on 2024 CUB Blood cultures x2, from two different sites AEROBIC BOTTLE GRAM STAIN= GRAM POSITIVE RODS Culture, Blood (WB) RESULTS CALLED TO TERRELL FREY 03/25/24 0735 Deja Ritter. REPORT READ BACK BY . REFER TO [id number]. PREVIOUS CUTIBACTERIUM ACNES SENT TO /[place] FOR SENS 03/22/24 JS Gram positive ashia Amount Growth Growth Normal [facility] Comment on above: Performed By: #### L 503.6620, L500.2500, L501.5200, L509.7000 #### [facility] [address] [place], [address] Basic Metabolic Profile (BMP )on 03-23-2024 BUN Normal 7-18 [facility] Comment on above: Result Comment: Canc elled via OM: Order cancelled - Patient discharged Performed By: #### L 100.0100, L500.2500 #### [facility] [address] [place], [address] BUN/CRE Normal 10-20 [facility] Comment on above: Result Comment: Canc elled via OM: Order cancelled - Patient discharged Performed By: #### L 100.0100, L500.2500 #### [facility] [address] [place], [address] CA,Total Normal 8.5-10.1 [facility] Comment on above: Result Comment: Canc elled via OM: Order cancelled - Patient discharged Performed By: #### L 100.0100, L500.2500 #### [facility] [address] [place], [address] CL Normal 98-107 [facility] Comment on above: Result Comment: Canc elled via OM: Order cancelled - Patient discharged Performed By: #### L 100.0100, L500.2500 #### [facility] [address] [place], [address] CO2 Normal 21.0-32.0 [facility] Comment on above: Result Comment: Canc elled via OM: Order cancelled - Patient discharged Performed By: #### L 100.0100, L500.2500 #### [facility] [address] [place], [address] CREAT,SERUM Normal 0.70-1.30 [facility] Comment on above: Result Comment: Canc elled via OM: Order cancelled - Patient discharged Performed By: #### L 100.0100, L500.2500 #### [facility] [address] [place], [address] EST GFR Normal >60 [facility] Comment on above: Result Comment: Canc elled via OM: Order cancelled - Patient discharged Performed By: #### L 100.0100, L500.2500 #### [facility] [address] [place], [address] EST GFR - AA Normal >60 [facility] Comment on above: Result Comment: Canc elled via OM: Order cancelled - Patient discharged Performed By: #### L 100.0100, L500.2500 #### [facility] [address] [place], [address] GAP Normal 5-15 [facility] Comment on above: Result Comment: Canc elled via OM: Order cancelled - Patient discharged Performed By: #### L 100.0100, L500.2500 #### [facility] [address] [place], [address] GLU Normal 74-106 [facility] Comment on above: Result Comment: Canc elled via OM: Order cancelled - Patient discharged Performed By: #### L 100.0100, L500.2500 #### [facility] [address] [place], [address] Potassium Normal 3.5-5.1 [facility] Comment on above: Result Comment: Canc elled via OM: Order cancelled - Patient discharged Performed By: #### L 100.0100, L500.2500 #### [facility] [address] [place], [address] Basic Metabolic Profile (BMP) Normal 136-145 [facility] Comment on above: Result Comment: Canc elled via OM: Order cancelled - Patient discharged Performed By: #### L 100.0100, L500.2500 #### [facility] [address] [place], [address] CBC W/Diff, Automatedon - 0-2024 Absolute Neut Normal 2.0-7.7 [facility] Comment on above: Result Comment: Canc elled via OM: Order cancelled - Patient discharged Performed By: #### L 100.0100, L500.2500 #### [facility] [address] [place], [address] HCT Normal 40-54 [facility] Comment on above: Result Comment: Canc elled via OM: Order cancelled - Patient discharged Performed By: #### L 100.0100, L500.2500 #### [facility] [address] [place], [address] HGB Normal 13.0-16.5 [facility] Comment on above: Result Comment: Canc elled via OM: Order cancelled - Patient discharged Performed By: #### L 100.0100, L500.2500 #### [facility] [address] [place], [address] MCH Normal 27.0-32.0 [facility] Comment on above: Result Comment: Canc elled via OM: Order cancelled - Patient discharged Performed By: #### L 100.0100, L500.2500 #### [facility] [address] [place], [address] MCHC Normal 32-36 [facility] Comment on above: Result Comment: Canc elled via OM: Order cancelled - Patient discharged Performed By: #### L 100.0100, L500.2500 #### [facility] [address] [place], [address] MCV Normal 80-94 [facility] Comment on above: Result Comment: Canc elled via OM: Order cancelled - Patient discharged Performed By: #### L 100.0100, L500.2500 #### [facility] [address] [place], [address] NEUT% Normal 47-70 [facility] Comment on above: Result Comment: Canc elled via OM: Order cancelled - Patient discharged Performed By: #### L 100.0100, L500.2500 #### [facility] [address] [place], [address] PLT Normal 150-450 [facility] Comment on above: Result Comment: Canc elled via OM: Order cancelled - Patient discharged Performed By: #### L 100.0100, L500.2500 #### [facility] [address] [place], [address] RBC Normal 4.6-6.2 [facility] Comment on above: Result Comment: Canc elled via OM: Order cancelled - Patient discharged Performed By: #### L 100.0100, L500.2500 #### [facility] [address] [place], [address] RDW CV Normal 11.6-14.6 [facility] Comment on above: Result Comment: Canc elled via OM: Order cancelled - Patient discharged Performed By: #### L 100.0100, L500.2500 #### [facility] [address] [place], [address] RDW SD Normal 35.1-43.9 [facility] Comment on above: Result Comment: Canc elled via OM: Order cancelled - Patient discharged Performed By: #### L 100.0100, L500.2500 #### [facility] [address] [place], [address] WBC Normal 4.4-11.0 [facility] Comment on above: Result Comment: Canc elled via OM: Order cancelled - Patient discharged Performed By: #### L 100.0100, L500.2500 #### [facility] [address] [place], [address] BNP,B-Type NATRIURETIC PEPTI Becky 03-22-2024 Natriuretic peptide B (Bld) [Mass/Vol] 4.5 pg/mL Normal 0-100 [facility] Comment on above: Performed By: #### L 503.6620, L500.2500, L501.5200, L509.7000 #### [facility] [address] [place], [address] Basic Metabolic Profile (BMP )on 03-22-2024 BUN Normal 7-18 [facility] Comment on above: Result Comment: Canc elled via OM: Order cancelled - Patient discharged Performed By: #### L 500.2500, L100.0100 #### [facility] [address] [place], [address] BUN/CRE Normal 10-20 [facility] Comment on above: Result Comment: Canc elled via OM: Order cancelled - Patient discharged Performed By: #### L 500.2500, L100.0100 #### [facility] [address] [place], [address] CA,Total Normal 8.5-10.1 [facility] Comment on above: Result Comment: Canc elled via OM: Order cancelled - Patient discharged Performed By: #### L 500.2500, L100.0100 #### [facility] [address] [place], [address] CL Normal 98-107 [facility] Comment on above: Result Comment: Canc elled via OM: Order cancelled - Patient discharged Performed By: #### L 500.2500, L100.0100 #### [facility] [address] [place], [address] CO2 Normal 21.0-32.0 [facility] Comment on above: Result Comment: Canc elled via OM: Order cancelled - Patient discharged Performed By: #### L 500.2500, L100.0100 #### [facility] [address] [place], [address] CREAT,SERUM Normal 0.70-1.30 [facility] Comment on above: Result Comment: Canc elled via OM: Order cancelled - Patient discharged Performed By: #### L 500.2500, L100.0100 #### [facility] [address] [place], [address] EST GFR Normal >60 [facility] Comment on above: Result Comment: Canc elled via OM: Order cancelled - Patient discharged Performed By: #### L 500.2500, L100.0100 #### [facility] [address] [place], [address] EST GFR - AA Normal >60 [facility] Comment on above: Result Comment: Canc elled via OM: Order cancelled - Patient discharged Performed By: #### L 500.2500, L100.0100 #### [facility] [address] [place], [address] GAP Normal 5-15 [facility] Comment on above: Result Comment: Canc elled via OM: Order cancelled - Patient discharged Performed By: #### L 500.2500, L100.0100 #### [facility] [address] [place], [address] GLU Normal 74-106 [facility] Comment on above: Result Comment: Canc elled via OM: Order cancelled - Patient discharged Performed By: #### L 500.2500, L100.0100 #### [facility] [address] [place], [address] Potassium Normal 3.5-5.1 [facility] Comment on above: Result Comment: Canc elled via OM: Order cancelled - Patient discharged Performed By: #### L 500.2500, L100.0100 #### [facility] [address] [place], [address] Basic Metabolic Profile (BMP) Normal 136-145 [facility] Comment on above: Result Comment: Canc elled via OM: Order cancelled - Patient discharged Performed By: #### L 500.2500, L100.0100 #### [facility] [address] [place], [address] BUN/CRE 19.4 RATIO Normal 10-20 [facility] Comment on above: Performed By: #### L 503.6620, L500.2500, L501.5200, L509.7000 #### [facility] [address] [place], [address] CA,Total 8.8 mg/dL Normal 8.5-10.1 [facility] Comment on above: Performed By: #### L 503.6620, L500.2500, L501.5200, L509.7000 #### [facility] [address] [place], [address] Chloride [Moles/Vol] 105 mmol/L Normal 98-107 [facility] Comment on above: Performed By: #### L 503.6620, L500.2500, L501.5200, L509.7000 #### [facility] [address] [place], [address] CO2 [Moles/Vol] 24.0 mmol/L Normal 21.0-32.0 [facility] Comment on above: Performed By: #### L 503.6620, L500.2500, L501.5200, L509.7000 #### [facility] [address] [place], [address] Creatinine [Mass/Vol] 0.98 mg/dL Normal 0.70-1.30 [facility] Comment on above: Result Comment: The validity of the calculated GFR GFRAA in patients over 70 years has not been determined. Clinical correlation is essential. Performed By: #### L 503.6620, L500.2500, L501.5200, L509.7000 #### [facility] [address] [place], [address] ECRCL 88.54 ml/min Normal [facility] Comment on above: Performed By: #### L 503.6620, L500.2500, L501.5200, L509.7000 #### [facility] [address] [place], [address] EST GFR - AA 103 mL/min Normal >60 [facility] Comment on above: Result Comment: Afri can [place] GFR Calc Performed By: #### L 503.6620, L500.2500, L501.5200, L509.7000 #### [facility] [address] [place], [address] GAP 6 Normal 5-15 [facility] Comment on above: Performed By: #### L 503.6620, L500.2500, L501.5200, L509.7000 #### [facility] [address] [place], [address] GFR/1.73 sq M.predicted among non-blacks MDRD (S/P/Bld) [Vol rate/Area] 85 mL/min/{1.73_m2} Normal >60 [facility] Comment on above: Result Comment: Non- GFR Calc Performed By: #### L 503.6620, L500.2500, L501.5200, L509.7000 #### [facility] [address] [place], [address] Glucose [Mass/Vol] 149 mg/dL High 74-106 [facility] Comment on above: Result Comment: Fast ing Glucose result greater than or equal to 126 mg/dL suggests DIABETES MELLITUS per A.D.A. criteria. Performed By: #### L 503.6620, L500.2500, L501.5200, L509.7000 #### [facility] [address] [place], [address] Potassium [Moles/Vol] 3.9 mmol/L Normal 3.5-5.1 [facility] Comment on above: Performed By: #### L 503.6620, L500.2500, L501.5200, L509.7000 #### [facility] [address] [place], [address] Sodium [Moles/Vol] 134 mmol/L Low 136-145 [facility] Comment on above: Performed By: #### L 503.6620, L500.2500, L501.5200, L509.7000 #### [facility] [address] [place], [address] Urea nitrogen [Mass/Vol] 19 mg/dL High 7-18 [facility] Comment on above: Performed By: #### L 503.6620, L500.2500, L501.5200, L509.7000 #### [facility] [address] [place], [address] CBC W/Diff, Automatedon -0 PATH REV Reviewed Normal [facility] Comment on above: Result Comment: Neut rophilic leukocytosis. Microcytic anemia. Thrombocytosis. Clinical correlation necessary. Taran Mcdermott M.D. 03/22/24 AMENDED REPORT 03/22/24 1004 PATH REV previously reported as: July Performed By: #### L 503.6005, L100.0100 #### [facility] [address] [place], [address] Absolute Neut Normal 2.0-7.7 [facility] Comment on above: Result Comment: Canc elled via OM: Order cancelled - Patient discharged Performed By: #### L 500.2500, L100.0100 #### [facility] [address] [place], [address] HCT Normal 40-54 [facility] Comment on above: Result Comment: Canc elled via OM: Order cancelled - Patient discharged Performed By: #### L 500.2500, L100.0100 #### [facility] [address] [place], [address] HGB Normal 13.0-16.5 [facility] Comment on above: Result Comment: Canc elled via OM: Order cancelled - Patient discharged Performed By: #### L 500.2500, L100.0100 #### [facility] [address] [place], [address] MCH Normal 27.0-32.0 [facility] Comment on above: Result Comment: Canc elled via OM: Order cancelled - Patient discharged Performed By: #### L 500.2500, L100.0100 #### [facility] [address] [place], [address] MCHC Normal 32-36 [facility] Comment on above: Result Comment: Canc elled via OM: Order cancelled - Patient discharged Performed By: #### L 500.2500, L100.0100 #### [facility] [address] [place], [address] MCV Normal 80-94 [facility] Comment on above: Result Comment: Canc elled via OM: Order cancelled - Patient discharged Performed By: #### L 500.2500, L100.0100 #### [facility] [address] [place], [address] NEUT% Normal 47-70 [facility] Comment on above: Result Comment: Canc elled via OM: Order cancelled - Patient discharged Performed By: #### L 500.2500, L100.0100 #### [facility] [address] [place], [address] PLT Normal 150-450 [facility] Comment on above: Result Comment: Canc elled via OM: Order cancelled - Patient discharged Performed By: #### L 500.2500, L100.0100 #### [facility] [address] [place], [address] RBC Normal 4.6-6.2 [facility] Comment on above: Result Comment: Canc elled via OM: Order cancelled - Patient discharged Performed By: #### L 500.2500, L100.0100 #### [facility] [address] [place], [address] RDW CV Normal 11.6-14.6 [facility] Comment on above: Result Comment: Canc elled via OM: Order cancelled - Patient discharged Performed By: #### L 500.2500, L100.0100 #### [facility] [facility] [address] [place], [address] RDW SD Normal 35.1-43.9 [facility] Comment on above: Result Comment: Canc elled via OM: Order cancelled - Patient discharged Performed By: #### L 500.2500, L100.0100 #### [facility] [address] [place], [address] WBC Normal 4.4-11.0 [facility] Comment on above: Result Comment: Canc elled via OM: Order cancelled - Patient discharged Performed By: #### L 500.2500, L100.0100 #### [facility] [address] [place], [address] CTA Chest W/WO Contraston CTA Chest W/WO Contrast [facility] Imaging Services [address] [place] [address] CTA Chest W/WO Contrast MR#: [id number] Acct: [id number] Name: LUIS STEELE II Rep #: [id number] : 1970 M 53 From: Doyle Jaramillo MD PCP: Dr. Antwan Buchanan, Status: REG ER Study: CTA Chest W/WO Contrast Date of Exam: 03/22/24 Exam# [id number] Ordering Dr: Anselmo Bustos DO [id number] INDICATION: hypoxia EXAMINATION: - CTA Chest WO/W [...] Dr. Antwan Buchanan DO; Anselmo Bustos DO Solutions Specialist: Signed Normal [facility] Emergency Department Summary on 03-22-2024 Emergency Department Summary [facility] Medical Records Department [address] [place] [id number] Emergency Department Summary 03/22/24 MR#: [id number] Acct: [id number] Name: LUIS STEELE II Rep #: [id number] : 1970 53 From: Anselmo Bustos DO [...] he presents to the hospital for evaluation [facility] Medical History Chronic hypoxic respiratory failure History [...] Status Date / Time tramadol HCl (From [facility]) Allergy Swelling Verified 03/22/24 00:13 codeine AdvReac PT UNSURE Verified 03/22/24 00:13 OF REACTION Family History Other Cancer Diabetes Heart disease Hypertension Surgical History History of herniorrhaphy History of tonsillectomy History of chest tube placement History of tracheostomy Social History (Updated 03/14/24 @ 02:[address] oJie Lopez DO) household members: none Smoking Status: [...] Rate 2 (more content not included)... Normal [facility] Lactic Acidon 03-22-2024 Lactate [Moles/Vol] 1.9 mmol/L Normal 0.4-1.9 [facility] Comment on above: Order Comment: Y Performed By: #### L 503.6005, L100.0100 #### [facility] [address] [place], [address] M100.678on 03-22-2024 M100.678 Copy of report sent to Infection Control Printer [id number] 03/22/24624 CANDACE. [facility] 0137 Ernst Villanueva. REPORT READ BACK BY SAME. SARS-CoV-2 (COVID 19) Negative INFLUENZA A A Positive A INFLUENZA B Negative RSV PCR Negative INFLUENZAE A * This is an amended result. * A prior result that was reported as final has been changed. 03/22/24624 by CANDACE Barton [facility] Comment on above: Performed By: #### L 503.6620, L500.2500, L501.5200, L509.7000 #### [facility] [address] [place], [address] Magnesiumon 03-22-2024 Magnesium [Mass/Vol] 1.8 mg/dL Normal 1.6-2.6 [facility] Comment on above: Performed By: #### L 503.6620, L500.2500, L501.5200, L509.7000 #### [facility] [address] [place], [address] Procalcitoninon 03-22-2024 Procalcitonin 1.03 ng/mL High 0.00-0.09 [facility] Comment on above: Result Comment: A [...] #### L 503.6620, L500.2500, L501.5200, L509.7000 #### [facility] [address] [place], [address] Basic Metabolic Profile (BMP )on 03-21-2024 BUN Normal 7-18 [facility] Comment on above: Result Comment: Canc elled via OM: Order cancelled - Patient discharged Performed By: #### L 503.6620, L500.2500, L501.5200, L509.7000 #### [facility] [address] [place], [address] BUN/CRE Normal 10-20 [facility] Comment on above: Result Comment: Canc elled via OM: Order cancelled - Patient discharged Performed By: #### L 503.6620, L500.2500, L501.5200, L509.7000 #### [facility] [address] [place], [address] CA,Total Normal 8.5-10.1 [facility] Comment on above: Result Comment: Canc elled via OM: Order cancelled - Patient discharged Performed By: #### L 503.6620, L500.2500, L501.5200, L509.7000 #### [facility] [address] [place], [address] CL Normal 98-107 [facility] Comment on above: Result Comment: Canc elled via OM: Order cancelled - Patient discharged Performed By: #### L 503.6620, L500.2500, L501.5200, L509.7000 #### [facility] [address] [place], [address] CO2 Normal 21.0-32.0 [facility] Comment on above: Result Comment: Canc elled via OM: Order cancelled - Patient discharged Performed By: #### L 503.6620, L500.2500, L501.5200, L509.7000 #### [facility] [address] [place], [address] CREAT,SERUM Normal 0.70-1.30 [facility] Comment on above: Result Comment: Canc elled via OM: Order cancelled - Patient discharged Performed By: #### L 503.6620, L500.2500, L501.5200, L509.7000 #### [facility] [address] [place], [address] EST GFR Normal >60 [facility] Comment on above: Result Comment: Canc elled via OM: Order cancelled - Patient discharged Performed By: #### L 503.6620, L500.2500, L501.5200, L509.7000 #### [facility] [address] [place], [address] EST GFR - AA Normal >60 [facility] Comment on above: Result Comment: Canc elled via OM: Order cancelled - Patient discharged Performed By: #### L 503.6620, L500.2500, L501.5200, L509.7000 #### [facility] [address] [place], [address] GAP Normal 5-15 [facility] Comment on above: Result Comment: Canc elled via OM: Order cancelled - Patient discharged Performed By: #### L 503.6620, L500.2500, L501.5200, L509.7000 #### [facility] [address] [place], [address] GLU Normal 74-106 [facility] Comment on above: Result Comment: Canc elled via OM: Order cancelled - Patient discharged Performed By: #### L 503.6620, L500.2500, L501.5200, L509.7000 #### [facility] [address] [place], [address] Potassium Normal 3.5-5.1 [facility] Comment on above: Result Comment: Canc elled via OM: Order cancelled - Patient discharged Performed By: #### L 503.6620, L500.2500, L501.5200, L509.7000 #### [facility] [address] [place], [address] Basic Metabolic Profile (BMP) Normal 136-145 [facility] Comment on above: Result Comment: Canc elled via OM: Order cancelled - Patient discharged Performed By: #### L 503.6620, L500.2500, L501.5200, L509.7000 #### [facility] [address] [place], [address] CBC W/Diff, Automatedon 01-0 8-2024 Absolute Neut Normal 2.0-7.7 [facility] Comment on above: Result Comment: Canc elled via OM: Order cancelled - Patient discharged Performed By: #### L 503.6620, L500.2500, L501.5200, L509.7000 #### [facility] [address] [place], [address] HCT Normal 40-54 [facility] Comment on above: Result Comment: Canc elled via OM: Order cancelled - Patient discharged Performed By: #### L 503.6620, L500.2500, L501.5200, L509.7000 #### [facility] [address] [place], [address] HGB Normal 13.0-16.5 [facility] Comment on above: Result Comment: Canc elled via OM: Order cancelled - Patient discharged Performed By: #### L 503.6620, L500.2500, L501.5200, L509.7000 #### [facility] [address] [place], [address] MCH Normal 27.0-32.0 [facility] Comment on above: Result Comment: Canc elled via OM: Order cancelled - Patient discharged Performed By: #### L 503.6620, L500.2500, L501.5200, L509.7000 #### [facility] [address] [place], [address] MCHC Normal 32-36 [facility] Comment on above: Result Comment: Canc elled via OM: Order cancelled - Patient discharged Performed By: #### L 503.6620, L500.2500, L501.5200, L509.7000 #### [facility] [address] [place], [address] MCV Normal 80-94 [facility] Comment on above: Result Comment: Canc elled via OM: Order cancelled - Patient discharged Performed By: #### L 503.6620, L500.2500, L501.5200, L509.7000 #### [facility] [address] [place], [address] NEUT% Normal 47-70 [facility] Comment on above: Result Comment: Canc elled via OM: Order cancelled - Patient discharged Performed By: #### L 503.6620, L500.2500, L501.5200, L509.7000 #### [facility] [address] [place], [address] PLT Normal 150-450 [facility] Comment on above: Result Comment: Canc elled via OM: Order cancelled - Patient discharged Performed By: #### L 503.6620, L500.2500, L501.5200, L509.7000 #### [facility] [address] [place], [address] RBC Normal 4.6-6.2 [facility] Comment on above: Result Comment: Canc elled via OM: Order cancelled - Patient discharged Performed By: #### L 503.6620, L500.2500, L501.5200, L509.7000 #### [facility] [address] [place], [address] RDW CV Normal 11.6-14.6 [facility] Comment on above: Result Comment: Canc elled via OM: Order cancelled - Patient discharged Performed By: #### L 503.6620, L500.2500, L501.5200, L509.7000 #### [facility] [address] [place], [address] RDW SD Normal 35.1-43.9 [facility] Comment on above: Result Comment: Canc elled via OM: Order cancelled - Patient discharged Performed By: #### L 503.6620, L500.2500, L501.5200, L509.7000 #### [facility] [address] [place], [address] WBC Normal 4.4-11.0 [facility] Comment on above: Result Comment: Canc elled via OM: Order cancelled - Patient discharged Performed By: #### L 503.6620, L500.2500, L501.5200, L509.7000 #### [facility] [address] [place], [address] Basic Metabolic Profile (BMP )on 03-20-2024 BUN Normal 7-18 [facility] Comment on above: Result Comment: Canc elled via OM: Order cancelled - Patient discharged Performed By: #### L 503.6620, L500.2500, L501.5200, L509.7000 #### [facility] [address] [place], [address] BUN/CRE Normal 10-20 [facility] Comment on above: Result Comment: Canc elled via OM: Order cancelled - Patient discharged Performed By: #### L 503.6620, L500.2500, L501.5200, L509.7000 #### [facility] [address] [place], [address] CA,Total Normal 8.5-10.1 [facility] Comment on above: Result Comment: Canc elled via OM: Order cancelled - Patient discharged Performed By: #### L 503.6620, L500.2500, L501.5200, L509.7000 #### [facility] [address] [place], [address] CL Normal 98-107 [facility] Comment on above: Result Comment: Canc elled via OM: Order cancelled - Patient discharged Performed By: #### L 503.6620, L500.2500, L501.5200, L509.7000 #### [facility] [address] [place], [address] CO2 Normal 21.0-32.0 [facility] Comment on above: Result Comment: Canc elled via OM: Order cancelled - Patient discharged Performed By: #### L 503.6620, L500.2500, L501.5200, L509.7000 #### [facility] [address] [place], [address] CREAT,SERUM Normal 0.70-1.30 [facility] Comment on above: Result Comment: Canc elled via OM: Order cancelled - Patient discharged Performed By: #### L 503.6620, L500.2500, L501.5200, L509.7000 #### [facility] [address] [place], [address] EST GFR Normal >60 [facility] Comment on above: Result Comment: Canc elled via OM: Order cancelled - Patient discharged Performed By: #### L 503.6620, L500.2500, L501.5200, L509.7000 #### [facility] [address] [place], [address] EST GFR - AA Normal >60 [facility] Comment on above: Result Comment: Canc elled via OM: Order cancelled - Patient discharged Performed By: #### L 503.6620, L500.2500, L501.5200, L509.7000 #### [facility] [address] [place], [address] GAP Normal 5-15 [facility] Comment on above: Result Comment: Canc elled via OM: Order cancelled - Patient discharged Performed By: #### L 503.6620, L500.2500, L501.5200, L509.7000 #### [facility] [address] [place], [address] GLU Normal 74-106 [facility] Comment on above: Result Comment: Canc elled via OM: Order cancelled - Patient discharged Performed By: #### L 503.6620, L500.2500, L501.5200, L509.7000 #### [facility] [address] [place], [address] Potassium Normal 3.5-5.1 [facility] Comment on above: Result Comment: Canc elled via OM: Order cancelled - Patient discharged Performed By: #### L 503.6620, L500.2500, L501.5200, L509.7000 #### [facility] [address] [place], [address] Basic Metabolic Profile (BMP) Normal 136-145 [facility] Comment on above: Result Comment: Canc elled via OM: Order cancelled - Patient discharged Performed By: #### L 503.6620, L500.2500, L501.5200, L509.7000 #### [facility] [address] [place], [address] CBC W/Diff, Automatedon 01-0 -2024 Absolute Neut Normal 2.0-7.7 [facility] Comment on above: Result Comment: Canc elled via OM: Order cancelled - Patient discharged Performed By: #### L 503.6620, L500.2500, L501.5200, L509.7000 #### [facility] [address] [place], [address] HCT Normal 40-54 [facility] Comment on above: Result Comment: Canc elled via OM: Order cancelled - Patient discharged Performed By: #### L 503.6620, L500.2500, L501.5200, L509.7000 #### [facility] [address] [place], [address] HGB Normal 13.0-16.5 [facility] Comment on above: Result Comment: Canc elled via OM: Order cancelled - Patient discharged Performed By: #### L 503.6620, L500.2500, L501.5200, L509.7000 #### [facility] [address] [place], [address] MCH Normal 27.0-32.0 [facility] Comment on above: Result Comment: Canc elled via OM: Order cancelled - Patient discharged Performed By: #### L 503.6620, L500.2500, L501.5200, L509.7000 #### [facility] [address] [place], [address] MCHC Normal 32-36 [facility] Comment on above: Result Comment: Canc elled via OM: Order cancelled - Patient discharged Performed By: #### L 503.6620, L500.2500, L501.5200, L509.7000 #### [facility] [address] [place], [address] MCV Normal 80-94 [facility] Comment on above: Result Comment: Canc elled via OM: Order cancelled - Patient discharged Performed By: #### L 503.6620, L500.2500, L501.5200, L509.7000 #### [facility] [address] [place], [address] NEUT% Normal 47-70 [facility] Comment on above: Result Comment: Canc elled via OM: Order cancelled - Patient discharged Performed By: #### L 503.6620, L500.2500, L501.5200, L509.7000 #### [facility] [address] [place], [address] PLT Normal 150-450 [facility] Comment on above: Result Comment: Canc elled via OM: Order cancelled - Patient discharged Performed By: #### L 503.6620, L500.2500, L501.5200, L509.7000 #### [facility] [address] [place], [address] RBC Normal 4.6-6.2 [facility] Comment on above: Result Comment: Canc elled via OM: Order cancelled - Patient discharged Performed By: #### L 503.6620, L500.2500, L501.5200, L509.7000 #### [facility] [address] [place], [address] RDW CV Normal 11.6-14.6 [facility] Comment on above: Result Comment: Canc elled via OM: Order cancelled - Patient discharged Performed By: #### L 503.6620, L500.2500, L501.5200, L509.7000 #### [facility] [address] [place], [address] RDW SD Normal 35.1-43.9 [facility] Comment on above: Result Comment: Canc elled via OM: Order cancelled - Patient discharged Performed By: #### L 503.6620, L500.2500, L501.5200, L509.7000 #### [facility] [address] [place], [address] WBC Normal 4.4-11.0 [facility] Comment on above: Result Comment: Canc elled via OM: Order cancelled - Patient discharged Performed By: #### L 503.6620, L500.2500, L501.5200, L509.7000 #### [facility] [address] [place], [address] Basic Metabolic Profile (BMP )on 03-19-2024 BUN Normal 7-18 [facility] Comment on above: Result Comment: Canc elled via OM: Order cancelled - Patient discharged Performed By: #### L 100.0100, L500.2500 #### [facility] [address] [place], [address] BUN/CRE Normal 10-20 [facility] Comment on above: Result Comment: Canc elled via OM: Order cancelled - Patient discharged Performed By: #### L 100.0100, L500.2500 #### [facility] [address] [place], [address] CA,Total Normal 8.5-10.1 [facility] Comment on above: Result Comment: Canc elled via OM: Order cancelled - Patient discharged Performed By: #### L 100.0100, L500.2500 #### [facility] [address] [place], [address] CL Normal 98-107 [facility] Comment on above: Result Comment: Canc elled via OM: Order cancelled - Patient discharged Performed By: #### L 100.0100, L500.2500 #### [facility] [address] [place], [address] CO2 Normal 21.0-32.0 [facility] Comment on above: Result Comment: Canc elled via OM: Order cancelled - Patient discharged Performed By: #### L 100.0100, L500.2500 #### [facility] [address] [place], [address] CREAT,SERUM Normal 0.70-1.30 [facility] Comment on above: Result Comment: Canc elled via OM: Order cancelled - Patient discharged Performed By: #### L 100.0100, L500.2500 #### [facility] [address] [place], [address] EST GFR Normal >60 [facility] Comment on above: Result Comment: Canc elled via OM: Order cancelled - Patient discharged Performed By: #### L 100.0100, L500.2500 #### [facility] [address] [place], [address] EST GFR - AA Normal >60 [facility] Comment on above: Result Comment: Canc elled via OM: Order cancelled - Patient discharged Performed By: #### L 100.0100, L500.2500 #### [facility] [address] [place], [address] GAP Normal 5-15 [facility] Comment on above: Result Comment: Canc elled via OM: Order cancelled - Patient discharged Performed By: #### L 100.0100, L500.2500 #### [facility] [address] [place], [address] GLU Normal 74-106 [facility] Comment on above: Result Comment: Canc elled via OM: Order cancelled - Patient discharged Performed By: #### L 100.0100, L500.2500 #### [facility] [address] [place], [address] Potassium Normal 3.5-5.1 [facility] Comment on above: Result Comment: Canc elled via OM: Order cancelled - Patient discharged Performed By: #### L 100.0100, L500.2500 #### [facility] [address] [place], [address] Basic Metabolic Profile (BMP) Normal 136-145 [facility] Comment on above: Result Comment: Canc elled via OM: Order cancelled - Patient discharged Performed By: #### L 100.0100, L500.2500 #### [facility] [address] [place], [address] CBC W/Diff, Automatedon 01-0 -2024 Absolute Neut Normal 2.0-7.7 [facility] Comment on above: Result Comment: Canc elled via OM: Order cancelled - Patient discharged Performed By: #### L 100.0100, L500.2500 #### [facility] [address] [place], [address] HCT Normal 40-54 [facility] Comment on above: Result Comment: Canc elled via OM: Order cancelled - Patient discharged Performed By: #### L 100.0100, L500.2500 #### [facility] [address] [place], [address] HGB Normal 13.0-16.5 [facility] Comment on above: Result Comment: Canc elled via OM: Order cancelled - Patient discharged Performed By: #### L 100.0100, L500.2500 #### [facility] [address] [place], [address] MCH Normal 27.0-32.0 [facility] Comment on above: Result Comment: Canc elled via OM: Order cancelled - Patient discharged Performed By: #### L 100.0100, L500.2500 #### [facility] [address] [place], [address] MCHC Normal 32-36 [facility] Comment on above: Result Comment: Canc elled via OM: Order cancelled - Patient discharged Performed By: #### L 100.0100, L500.2500 #### [facility] [address] [place], [address] MCV Normal 80-94 [facility] Comment on above: Result Comment: Canc elled via OM: Order cancelled - Patient discharged Performed By: #### L 100.0100, L500.2500 #### [facility] [address] [place], [address] NEUT% Normal 47-70 [facility] Comment on above: Result Comment: Canc elled via OM: Order cancelled - Patient discharged Performed By: #### L 100.0100, L500.2500 #### [facility] [address] [place], [address] PLT Normal 150-450 [facility] Comment on above: Result Comment: Canc elled via OM: Order cancelled - Patient discharged Performed By: #### L 100.0100, L500.2500 #### [facility] [address] [place], [address] RBC Normal 4.6-6.2 [facility] Comment on above: Result Comment: Canc elled via OM: Order cancelled - Patient discharged Performed By: #### L 100.0100, L500.2500 #### [facility] [address] [place], [address] RDW CV Normal 11.6-14.6 [facility] Comment on above: Result Comment: Canc elled via OM: Order cancelled - Patient discharged Performed By: #### L 100.0100, L500.2500 #### [facility] [address] [place], [address] RDW SD Normal 35.1-43.9 [facility] Comment on above: Result Comment: Canc elled via OM: Order cancelled - Patient discharged Performed By: #### L 100.0100, L500.2500 #### [facility] [address] [place], [address] WBC Normal 4.4-11.0 [facility] Comment on above: Result Comment: Canc elled via OM: Order cancelled - Patient discharged Performed By: #### L 100.0100, L500.2500 #### [facility] [address] [place], [address] Basic Metabolic Profile (BMP )on 03-18-2024 BUN Normal 7-18 [facility] Comment on above: Result Comment: Canc elled via OM: Order cancelled - Patient discharged Performed By: #### L 503.6620, L500.2500, L501.5200, L509.7000 #### [facility] [address] [place], [address] BUN/CRE Normal 10-20 [facility] Comment on above: Result Comment: Canc elled via OM: Order cancelled - Patient discharged Performed By: #### L 503.6620, L500.2500, L501.5200, L509.7000 #### [facility] [address] [place], [address] CA,Total Normal 8.5-10.1 [facility] Comment on above: Result Comment: Canc elled via OM: Order cancelled - Patient discharged Performed By: #### L 503.6620, L500.2500, L501.5200, L509.7000 #### [facility] [address] [place], [address] CL Normal 98-107 [facility] Comment on above: Result Comment: Canc elled via OM: Order cancelled - Patient discharged Performed By: #### L 503.6620, L500.2500, L501.5200, L509.7000 #### [facility] [address] [place], [address] CO2 Normal 21.0-32.0 [facility] Comment on above: Result Comment: Canc elled via OM: Order cancelled - Patient discharged Performed By: #### L 503.6620, L500.2500, L501.5200, L509.7000 #### [facility] [address] [place], [address] CREAT,SERUM Normal 0.70-1.30 [facility] Comment on above: Result Comment: Canc elled via OM: Order cancelled - Patient discharged Performed By: #### L 503.6620, L500.2500, L501.5200, L509.7000 #### [facility] [address] [place], [address] EST GFR Normal >60 [facility] Comment on above: Result Comment: Canc elled via OM: Order cancelled - Patient discharged Performed By: #### L 503.6620, L500.2500, L501.5200, L509.7000 #### [facility] [address] [place], [address] EST GFR - AA Normal >60 [facility] Comment on above: Result Comment: Canc elled via OM: Order cancelled - Patient discharged Performed By: #### L 503.6620, L500.2500, L501.5200, L509.7000 #### [facility] [address] [place], [address] GAP Normal 5-15 [facility] Comment on above: Result Comment: Canc elled via OM: Order cancelled - Patient discharged Performed By: #### L 503.6620, L500.2500, L501.5200, L509.7000 #### [facility] [address] [place], [address] GLU Normal 74-106 [facility] Comment on above: Result Comment: Canc elled via OM: Order cancelled - Patient discharged Performed By: #### L 503.6620, L500.2500, L501.5200, L509.7000 #### [facility] [address] [place], [address] Potassium Normal 3.5-5.1 [facility] Comment on above: Result Comment: Canc elled via OM: Order cancelled - Patient discharged Performed By: #### L 503.6620, L500.2500, L501.5200, L509.7000 #### [facility] [address] [place], [address] Basic Metabolic Profile (BMP) Normal 136-145 [facility] Comment on above: Result Comment: Canc elled via OM: Order cancelled - Patient discharged Performed By: #### L 503.6620, L500.2500, L501.5200, L509.7000 #### [facility] [address] [place], [address] CBC W/Diff, Automatedon 01-0 -2024 Absolute Neut Normal 2.0-7.7 [facility] Comment on above: Result Comment: Canc elled via OM: Order cancelled - Patient discharged Performed By: #### L 503.6620, L500.2500, L501.5200, L509.7000 #### [facility] [address] [place], [address] HCT Normal 40-54 [facility] Comment on above: Result Comment: Canc elled via OM: Order cancelled - Patient discharged Performed By: #### L 503.6620, L500.2500, L501.5200, L509.7000 #### [facility] [address] [place], [address] HGB Normal 13.0-16.5 [facility] Comment on above: Result Comment: Canc elled via OM: Order cancelled - Patient discharged Performed By: #### L 503.6620, L500.2500, L501.5200, L509.7000 #### [facility] [address] [place], [address] MCH Normal 27.0-32.0 [facility] Comment on above: Result Comment: Canc elled via OM: Order cancelled - Patient discharged Performed By: #### L 503.6620, L500.2500, L501.5200, L509.7000 #### [facility] [address] [place], [address] MCHC Normal 32-36 [facility] Comment on above: Result Comment: Canc elled via OM: Order cancelled - Patient discharged Performed By: #### L 503.6620, L500.2500, L501.5200, L509.7000 #### [facility] [address] [place], [address] MCV Normal 80-94 [facility] Comment on above: Result Comment: Canc elled via OM: Order cancelled - Patient discharged Performed By: #### L 503.6620, L500.2500, L501.5200, L509.7000 #### [facility] [address] [place], [address] NEUT% Normal 47-70 [facility] Comment on above: Result Comment: Canc elled via OM: Order cancelled - Patient discharged Performed By: #### L 503.6620, L500.2500, L501.5200, L509.7000 #### [facility] [address] [place], [address] PLT Normal 150-450 [facility] Comment on above: Result Comment: Canc elled via OM: Order cancelled - Patient discharged Performed By: #### L 503.6620, L500.2500, L501.5200, L509.7000 #### [facility] [address] [place], [address] RBC Normal 4.6-6.2 [facility] Comment on above: Result Comment: Canc elled via OM: Order cancelled - Patient discharged Performed By: #### L 503.6620, L500.2500, L501.5200, L509.7000 #### [facility] [address] [place], [address] RDW CV Normal 11.6-14.6 [facility] Comment on above: Result Comment: Canc elled via OM: Order cancelled - Patient discharged Performed By: #### L 503.6620, L500.2500, L501.5200, L509.7000 #### [facility] [address] [place], [address] RDW SD Normal 35.1-43.9 [facility] Comment on above: Result Comment: Canc elled via OM: Order cancelled - Patient discharged Performed By: #### L 503.6620, L500.2500, L501.5200, L509.7000 #### [facility] [address] [place], [address] WBC Normal 4.4-11.0 [facility] Comment on above: Result Comment: Canc elled via OM: Order cancelled - Patient discharged Performed By: #### L 503.6620, L500.2500, L501.5200, L509.7000 #### [facility] [address] [place], [address] Basic Metabolic Profile (BMP )on 03-17-2024 BUN Normal 7-18 [facility] Comment on above: Result Comment: Canc elled via OM: Order cancelled - Patient discharged Performed By: #### L 503.6620, L500.2500, L501.5200, L509.7000 #### [facility] [address] [place], [address] BUN/CRE Normal 10-20 [facility] Comment on above: Result Comment: Canc elled via OM: Order cancelled - Patient discharged Performed By: #### L 503.6620, L500.2500, L501.5200, L509.7000 #### [facility] [address] [place], [address] CA,Total Normal 8.5-10.1 [facility] Comment on above: Result Comment: Canc elled via OM: Order cancelled - Patient discharged Performed By: #### L 503.6620, L500.2500, L501.5200, L509.7000 #### [facility] [address] [place], [address] CL Normal 98-107 [facility] Comment on above: Result Comment: Canc elled via OM: Order cancelled - Patient discharged Performed By: #### L 503.6620, L500.2500, L501.5200, L509.7000 #### [facility] [address] [place], [address] CO2 Normal 21.0-32.0 [facility] Comment on above: Result Comment: Canc elled via OM: Order cancelled - Patient discharged Performed By: #### L 503.6620, L500.2500, L501.5200, L509.7000 #### [facility] [address] [place], [address] CREAT,SERUM Normal 0.70-1.30 [facility] Comment on above: Result Comment: Canc elled via OM: Order cancelled - Patient discharged Performed By: #### L 503.6620, L500.2500, L501.5200, L509.7000 #### [facility] [address] [place], [address] EST GFR Normal >60 [facility] Comment on above: Result Comment: Canc elled via OM: Order cancelled - Patient discharged Performed By: #### L 503.6620, L500.2500, L501.5200, L509.7000 #### [facility] [address] [place], [address] EST GFR - AA Normal >60 [facility] Comment on above: Result Comment: Canc elled via OM: Order cancelled - Patient discharged Performed By: #### L 503.6620, L500.2500, L501.5200, L509.7000 #### [facility] [address] [place], [address] GAP Normal 5-15 [facility] Comment on above: Result Comment: Canc elled via OM: Order cancelled - Patient discharged Performed By: #### L 503.6620, L500.2500, L501.5200, L509.7000 #### [facility] [address] [place], [address] GLU Normal 74-106 [facility] Comment on above: Result Comment: Canc elled via OM: Order cancelled - Patient discharged Performed By: #### L 503.6620, L500.2500, L501.5200, L509.7000 #### [facility] [address] [place], [address] Potassium Normal 3.5-5.1 [facility] Comment on above: Result Comment: Canc elled via OM: Order cancelled - Patient discharged Performed By: #### L 503.6620, L500.2500, L501.5200, L509.7000 #### [facility] [address] [place], [address] Basic Metabolic Profile (BMP) Normal 136-145 [facility] Comment on above: Result Comment: Canc elled via OM: Order cancelled - Patient discharged Performed By: #### L 503.6620, L500.2500, L501.5200, L509.7000 #### [facility] [address] [place], [address] CBC W/Diff, Automatedon 01-0 Absolute Neut Normal 2.0-7.7 [facility] Comment on above: Result Comment: Canc elled via OM: Order cancelled - Patient discharged Performed By: #### L 503.6620, L500.2500, L501.5200, L509.7000 #### [facility] [address] [place], [address] HCT Normal 40-54 [facility] Comment on above: Result Comment: Canc elled via OM: Order cancelled - Patient discharged Performed By: #### L 503.6620, L500.2500, L501.5200, L509.7000 #### [facility] [address] [place], [address] HGB Normal 13.0-16.5 [facility] Comment on above: Result Comment: Canc elled via OM: Order cancelled - Patient discharged Performed By: #### L 503.6620, L500.2500, L501.5200, L509.7000 #### [facility] [address] [place], [address] MCH Normal 27.0-32.0 [facility] Comment on above: Result Comment: Canc elled via OM: Order cancelled - Patient discharged Performed By: #### L 503.6620, L500.2500, L501.5200, L509.7000 #### [facility] [address] [place], [address] MCHC Normal 32-36 [facility] Comment on above: Result Comment: Canc elled via OM: Order cancelled - Patient discharged Performed By: #### L 503.6620, L500.2500, L501.5200, L509.7000 #### [facility] [address] [place], [address] MCV Normal 80-94 [facility] Comment on above: Result Comment: Canc elled via OM: Order cancelled - Patient discharged Performed By: #### L 503.6620, L500.2500, L501.5200, L509.7000 #### [facility] [address] [place], [address] NEUT% Normal 47-70 [facility] Comment on above: Result Comment: Canc elled via OM: Order cancelled - Patient discharged Performed By: #### L 503.6620, L500.2500, L501.5200, L509.7000 #### [facility] [address] [place], [address] PLT Normal 150-450 [facility] Comment on above: Result Comment: Canc elled via OM: Order cancelled - Patient discharged Performed By: #### L 503.6620, L500.2500, L501.5200, L509.7000 #### [facility] [address] [place], [address] RBC Normal 4.6-6.2 [facility] Comment on above: Result Comment: Canc elled via OM: Order cancelled - Patient discharged Performed By: #### L 503.6620, L500.2500, L501.5200, L509.7000 #### [facility] [address] [place], [address] RDW CV Normal 11.6-14.6 [facility] Comment on above: Result Comment: Canc elled via OM: Order cancelled - Patient discharged Performed By: #### L 503.6620, L500.2500, L501.5200, L509.7000 #### [facility] [address] [place], [address] RDW SD Normal 35.1-43.9 [facility] Comment on above: Result Comment: Canc elled via OM: Order cancelled - Patient discharged Performed By: #### L 503.6620, L500.2500, L501.5200, L509.7000 #### [facility] [address] [place], [address] WBC Normal 4.4-11.0 [facility] Comment on above: Result Comment: Canc elled via OM: Order cancelled - Patient discharged Performed By: #### L 503.6620, L500.2500, L501.5200, L509.7000 #### [facility] [address] [place], [address] Basic Metabolic Profile (BMP )on 03-16-2024 BUN/CRE 15.2 RATIO Normal 10-20 [facility] Comment on above: Performed By: #### L 100.0100, L500.2500 #### [facility] [address] [place], [address] CA,Total 8.6 mg/dL Normal 8.5-10.1 [facility] Comment on above: Performed By: #### L 100.0100, L500.2500 #### [facility] [address] [place], [address] Chloride [Moles/Vol] 105 mmol/L Normal 98-107 [facility] Comment on above: Performed By: #### L 100.0100, L500.2500 #### [facility] [address] [place], [address] CO2 [Moles/Vol] 29.0 mmol/L Normal 21.0-32.0 [facility] Comment on above: Performed By: #### L 100.0100, L500.2500 #### [facility] [address] [place], [address] Creatinine [Mass/Vol] 0.92 mg/dL Normal 0.70-1.30 [facility] Comment on above: Result Comment: The validity of the calculated GFR GFRAA in patients over 70 years has not been determined. Clinical correlation is essential. Performed By: #### L 100.0100, L500.2500 #### [facility] [address] [place], [address] ECRCL 95.88 ml/min Normal [facility] Comment on above: Performed By: #### L 100.0100, L500.2500 #### [facility] [address] [place], [address] EST GFR - AA 110 mL/min Normal >60 [facility] Comment on above: Result Comment: Afri can [place] GFR Calc Performed By: #### L 100.0100, L500.2500 #### [facility] [address] [place], [address] GAP 3 Low 5-15 [facility] Comment on above: Performed By: #### L 100.0100, L500.2500 #### [facility] [address] [place], [address] GFR/1.73 sq M.predicted among non-blacks MDRD (S/P/Bld) [Vol rate/Area] 91 mL/min/{1.73_m2} Normal >60 [facility] Comment on above: Result Comment: Non- GFR Calc Performed By: #### L 100.0100, L500.2500 #### [facility] [address] [place], [address] Glucose [Mass/Vol] 133 mg/dL High 74-106 [facility] Comment on above: Result Comment: Fast ing Glucose result greater than or equal to 126 mg/dL suggests DIABETES MELLITUS per A.D.A. criteria. Performed By: #### L 100.0100, L500.2500 #### [facility] [address] [place], [address] Potassium [Moles/Vol] 4.4 mmol/L Normal 3.5-5.1 [facility] Comment on above: Performed By: #### L 100.0100, L500.2500 #### [facility] [address] [place], [address] Sodium [Moles/Vol] 137 mmol/L Normal 136-145 [facility] Comment on above: Performed By: #### L 100.0100, L500.2500 #### [facility] [address] [place], [address] Urea nitrogen [Mass/Vol] 14 mg/dL Normal 7-18 [facility] Comment on above: Performed By: #### L 100.0100, L500.2500 #### [facility] [address] [place], [address] CBC W/Diff, Automatedon 01-0 3-2024 Absolute Lymph 1.90 X10 3/uL Normal 0.83-4.51 [facility] Comment on above: Performed By: #### L 100.0100, L500.2500 #### [facility] [address] [place], [address] Absolute Neut 14.3 X10 3/uL High 2.0-7.7 [facility] Comment on above: Performed By: #### L 100.0100, L500.2500 #### [facility] [address] [place], [address] Basophils/100 WBC (Bld) 0.3 % Normal 0-1 [facility] Comment on above: Performed By: #### L 100.0100, L500.2500 #### [facility] [address] [place], [address] Eosinophils/100 WBC (Bld) 0.0 % Normal 0-5 [facility] Comment on above: Performed By: #### L 100.0100, L500.2500 #### [facility] [address] [place], [address] Erythrocyte distribution width (RBC) [Ratio] 18.4 % High 11.6-14.6 [facility] Comment on above: Performed By: #### L 100.0100, L500.2500 #### [facility] [address] [place], [address] Hematocrit (Bld) [Volume fraction] 26.5 % Low 40-54 [facility] Comment on above: Performed By: #### L 100.0100, L500.2500 #### [facility] [address] [place], [address] Hemoglobin (Bld) [Mass/Vol] 7.3 g/dL Low 13.0-16.5 [facility] Comment on above: Performed By: #### L 100.0100, L500.2500 #### [facility] [address] [place], [address] IG% 4.400 High 0.0-0.9 [facility] Comment on above: Result Comment: IG% - Immature Granulocytes (promyelocytes, myelocytes and metamyelocytes) > 1% indicates that a LEFT SHIFT is Present. Performed By: #### L 100.0100, L500.2500 #### [facility] [address] [place], [address] Lymphocytes/100 WBC (Bld) 10.6 % Low 19-41 [facility] Comment on above: Performed By: #### L 100.0100, L500.2500 #### [facility] [address] [place], [address] MCH (RBC) [Entitic mass] 19.9 pg Low 27.0-32.0 [facility] Comment on above: Performed By: #### L 100.0100, L500.2500 #### [facility] [address] [place], [address] MCHC (RBC) [Mass/Vol] 27.5 g/dL Low 32-36 [facility] Comment on above: Performed By: #### L 100.0100, L500.2500 #### [facility] [address] [place], [address] MCV (RBC) [Entitic vol] 72.4 fL Low 80-94 [facility] Comment on above: Performed By: #### L 100.0100, L500.2500 #### [facility] [address] [place], [address] Monocytes/100 WBC (Bld) 4.7 % Normal 0-10 [facility] Comment on above: Performed By: #### L 100.0100, L500.2500 #### [facility] [address] [place], [address] Neutrophils/100 WBC (Bld) 80.0 % High 47-70 [facility] Comment on above: Performed By: #### L 100.0100, L500.2500 #### [facility] [address] [place], [address] Nucleated RBC (Bld) [#/Vol] 0.8 10*3/uL Normal 0-5 [facility] Comment on above: Performed By: #### L 100.0100, L500.2500 #### [facility] [address] [place], [address] Platelet mean volume (Bld) [Entitic vol] 9.8 fL Normal 6.2-12.0 [facility] Comment on above: Performed By: #### L 100.0100, L500.2500 #### [facility] [address] [place], [address] Platelets (Bld) [#/Vol] 523 10*3/uL High 150-450 [facility] Comment on above: Performed By: #### L 100.0100, L500.2500 #### [facility] [address] [place], [address] RBC (Bld) [#/Vol] 3.66 10*6/uL Low 4.6-6.2 [facility] Comment on above: Performed By: #### L 100.0100, L500.2500 #### [facility] [address] [place], [address] RDW SD 45.3 fl High 35.1-43.9 [facility] Comment on above: Performed By: #### L 100.0100, L500.2500 #### [facility] [address] [place], [address] WBC (Bld) [#/Vol] 17.9 10*3/uL High 4.4-11.0 [facility] Comment on above: Performed By: #### L 100.0100, L500.2500 #### [facility] [address] [place], [address] Discharge Instructionon Discharge Instruction [facility] Medical Records Department [address] [place] [address] Instructions for Home/Discharge Instructions 03/16/24 1035 MR#: [id number] Acct: [id number] Name: LUIS STEELE II Rep #: [id number] : 1970 53 From: Sharita Rich MD [...] can be placed): Home, Self Care 03/16/24 [facility] Sharita Rich MD CC: Dr. Júnior Caraballo DO; Dr. Antwan Buchanan DO; Dr. Joie Lopez DO Signed Normal [facility] CBC-Complete Blood Cnt No Di ffon 03-15-2024 Erythrocyte distribution width (RBC) [Ratio] 17.6 % High 11.6-14.6 [facility] Comment on above: Performed By: #### L 503.6620, L500.2500, L501.5200, L509.7000 #### [facility] [address] [place], [address] Hematocrit (Bld) [Volume fraction] 26.0 % Low 40-54 [facility] Comment on above: Performed By: #### L 503.6620, L500.2500, L501.5200, L509.7000 #### [facility] [address] [place], [address] Hemoglobin (Bld) [Mass/Vol] 7.1 g/dL Low 13.0-16.5 [facility] Comment on above: Performed By: #### L 503.6620, L500.2500, L501.5200, L509.7000 #### [facility] [address] [place], [address] MCH (RBC) [Entitic mass] 19.5 pg Low 27.0-32.0 [facility] Comment on above: Performed By: #### L 503.6620, L500.2500, L501.5200, L509.7000 #### [facility] [address] [place], [address] MCHC (RBC) [Mass/Vol] 27.3 g/dL Low 32-36 [facility] Comment on above: Performed By: #### L 503.6620, L500.2500, L501.5200, L509.7000 #### [facility] [address] [place], [address] MCV (RBC) [Entitic vol] 71.4 fL Low 80-94 [facility] Comment on above: Performed By: #### L 503.6620, L500.2500, L501.5200, L509.7000 #### [facility] [address] [place], [address] Platelet mean volume (Bld) [Entitic vol] 9.9 fL Normal 6.2-12.0 [facility] Comment on above: Performed By: #### L 503.6620, L500.2500, L501.5200, L509.7000 #### [facility] [address] [place], [address] Platelets (Bld) [#/Vol] 558 10*3/uL High 150-450 [facility] Comment on above: Performed By: #### L 503.6620, L500.2500, L501.5200, L509.7000 #### [facility] [address] [place], [address] RBC (Bld) [#/Vol] 3.64 10*6/uL Low 4.6-6.2 [facility] Comment on above: Performed By: #### L 503.6620, L500.2500, L501.5200, L509.7000 #### [facility] [address] [place], [address] RDW SD 45.1 fl High 35.1-43.9 [facility] Comment on above: Performed By: #### L 503.6620, L500.2500, L501.5200, L509.7000 #### [facility] [address] [place], [address] WBC (Bld) [#/Vol] 17.0 10*3/uL High 4.4-11.0 [facility] Comment on above: Performed By: #### L 503.6620, L500.2500, L501.5200, L509.7000 #### [facility] [address] [place], [address] HH, Hemoglobin AND Hematocri ton 03-15-2024 Hematocrit (Bld) [Volume fraction] 28.8 % Low 40-54 [facility] Comment on above: Performed By: #### L 503.6620, L500.2500, L501.5200, L509.7000 #### [facility] [address] [place], [address] Hemoglobin (Bld) [Mass/Vol] 7.9 g/dL Low 13.0-16.5 [facility] Comment on above: Performed By: #### L 503.6620, L500.2500, L501.5200, L509.7000 #### [facility] [address] [place], [address] Renal Profileon 03-15-2024 Albumin [Mass/Vol] 3.2 g/dL Normal 3.2-5.0 [facility] Comment on above: Performed By: #### L 503.6620, L500.2500, L501.5200, L509.7000 #### [facility] [address] [place], [address] BUN/CRE 14.9 RATIO Normal 10-20 [facility] Comment on above: Performed By: #### L 503.6620, L500.2500, L501.5200, L509.7000 #### [facility] [address] [place], [address] CA,Total 9.1 mg/dL Normal 8.5-10.1 [facility] Comment on above: Performed By: #### L 503.6620, L500.2500, L501.5200, L509.7000 #### [facility] [address] [place], [address] Chloride [Moles/Vol] 105 mmol/L Normal 98-107 [facility] Comment on above: Performed By: #### L 503.6620, L500.2500, L501.5200, L509.7000 #### [facility] [address] [place], [address] CO2 [Moles/Vol] 29.0 mmol/L Normal 21.0-32.0 [facility] Comment on above: Performed By: #### L 503.6620, L500.2500, L501.5200, L509.7000 #### [facility] [address] [place], [address] Creatinine [Mass/Vol] 0.94 mg/dL Normal 0.70-1.30 [facility] Comment on above: Result Comment: The validity of the calculated GFR GFRAA in patients over 70 years has not been determined. Clinical correlation is essential. Performed By: #### L 503.6620, L500.2500, L501.5200, L509.7000 #### [facility] [address] [place], [address] ECRCL 90.75 ml/min Normal [facility] Comment on above: Performed By: #### L 503.6620, L500.2500, L501.5200, L509.7000 #### [facility] [address] [place], [address] EST GFR - AA 108 mL/min Normal >60 [facility] Comment on above: Result Comment: Afri can [place] GFR Calc Performed By: #### L 503.6620, L500.2500, L501.5200, L509.7000 #### [facility] [address] [place], [address] GFR/1.73 sq M.predicted among non-blacks MDRD (S/P/Bld) [Vol rate/Area] 89 mL/min/{1.73_m2} Normal >60 [facility] Comment on above: Result Comment: Non- GFR Calc Performed By: #### L 503.6620, L500.2500, L501.5200, L509.7000 #### [facility] [address] [place], [address] Glucose [Mass/Vol] 132 mg/dL High 74-106 [facility] Comment on above: Result Comment: Fast ing Glucose result greater than or equal to 126 mg/dL suggests DIABETES MELLITUS per A.D.A. criteria. Performed By: #### L 503.6620, L500.2500, L501.5200, L509.7000 #### [facility] [address] [place], [address] Phosphate [Mass/Vol] 3.3 mg/dL Normal 2.5-4.9 [facility] Comment on above: Performed By: #### L 503.6620, L500.2500, L501.5200, L509.7000 #### [facility] [address] [place], [address] Potassium [Moles/Vol] 4.5 mmol/L Normal 3.5-5.1 [facility] Comment on above: Performed By: #### L 503.6620, L500.2500, L501.5200, L509.7000 #### [facility] [address] [place], [address] Sodium [Moles/Vol] 139 mmol/L Normal 136-145 [facility] Comment on above: Performed By: #### L 503.6620, L500.2500, L501.5200, L509.7000 #### [facility] [address] [place], [address] Urea nitrogen [Mass/Vol] 14 mg/dL Normal 7-18 [facility] Comment on above: Performed By: #### L 503.6620, L500.2500, L501.5200, L509.7000 #### [facility] [address] [place], [address] Vancomycin, Trough Levelon 0 03-15-2024 VANCO, TROUGH 10.4 ug/mL Normal 5.0-15.0 [facility] Comment on above: Order Comment: Comme nts: Trough to be drawn 30 mins prior to scheduled [id number] Result Comment: VANC OMYCIN STANDARED DRUG THERAPY TROUGH LEVEL: 5.0 - 15.0 mg/L VANCOMYCIN HIGH INTENSITY THERAPY TROUGH LEVEL: 15.0 - 20.0 mg/L High Intensity therapy recommended for serious life threatening infections include: - Meningitis -Endocarditis -Pneumonia (Ventilator/Healtcare Associated) -Sepsis PLEASE CONTACT PHARMACY SERVICES (#[id number]) FOR INTERPRETATION OF RESULTS. Performed By: #### L 503.6620, L500.2500, L501.5200, L509.7000 #### [facility] [address] [place], [address] CBC W/Diff, Automatedon Absolute Lymph 0.58 X10 3/uL Low 0.83-4.51 [facility] Comment on above: Performed By: #### L 100.0100, L500.2500 #### [facility] [address] [place], [address] Absolute Neut 14.4 X10 3/uL High 2.0-7.7 [facility] Comment on above: Performed By: #### L 100.0100, L500.2500 #### [facility] [address] [place], [address] Basophils/100 WBC (Bld) 0.2 % Normal 0-1 [facility] Comment on above: Performed By: #### L 100.0100, L500.2500 #### [facility] [address] [place], [address] Eosinophils/100 WBC (Bld) 0.0 % Normal 0-5 [facility] Comment on above: Performed By: #### L 100.0100, L500.2500 #### [facility] [address] [place], [address] Erythrocyte distribution width (RBC) [Ratio] 17.3 % High 11.6-14.6 [facility] Comment on above: Performed By: #### L 100.0100, L500.2500 #### [facility] [address] [place], [address] Hematocrit (Bld) [Volume fraction] 29.0 % Low 40-54 [facility] Comment on above: Performed By: #### L 100.0100, L500.2500 #### [facility] [address] [place], [address] Hemoglobin (Bld) [Mass/Vol] 8.0 g/dL Low 13.0-16.5 [facility] Comment on above: Performed By: #### L 100.0100, L500.2500 #### [facility] [address] [place], [address] IG% 0.700 Normal 0.0-0.9 [facility] Comment on above: Result Comment: IG% - Immature Granulocytes (promyelocytes, myelocytes and metamyelocytes) > 1% indicates that a LEFT SHIFT is Present. Performed By: #### L 100.0100, L500.2500 #### [facility] [address] [place], [address] Lymphocytes/100 WBC (Bld) 3.8 % Low 19-41 [facility] Comment on above: Performed By: #### L 100.0100, L500.2500 #### [facility] [address] [place], [address] MCH (RBC) [Entitic mass] 19.7 pg Low 27.0-32.0 [facility] Comment on above: Performed By: #### L 100.0100, L500.2500 #### [facility] [address] [place], [address] MCHC (RBC) [Mass/Vol] 27.6 g/dL Low 32-36 [facility] Comment on above: Performed By: #### L 100.0100, L500.2500 #### [facility] [address] [place], [address] MCV (RBC) [Entitic vol] 71.3 fL Low 80-94 [facility] Comment on above: Performed By: #### L 100.0100, L500.2500 #### [facility] [address] [place], [address] Monocytes/100 WBC (Bld) 0.7 % Normal 0-10 [facility] Comment on above: Performed By: #### L 100.0100, L500.2500 #### [facility] [address] [place], [address] Neutrophils/100 WBC (Bld) 94.6 % High 47-70 [facility] Comment on above: Performed By: #### L 100.0100, L500.2500 #### [facility] [address] [place], [address] Nucleated RBC (Bld) [#/Vol] 0 10*3/uL Normal 0-5 [facility] Comment on above: Performed By: #### L 100.0100, L500.2500 #### [facility] [address] [place], [address] Platelet mean volume (Bld) [Entitic vol] 9.5 fL Normal 6.2-12.0 [facility] Comment on above: Performed By: #### L 100.0100, L500.2500 #### [facility] [address] [place], [address] Platelets (Bld) [#/Vol] 535 10*3/uL High 150-450 [facility] Comment on above: Performed By: #### L 100.0100, L500.2500 #### [facility] [address] [place], [address] RBC (Bld) [#/Vol] 4.07 10*6/uL Low 4.6-6.2 [facility] Comment on above: Performed By: #### L 100.0100, L500.2500 #### [facility] [address] [place], [address] RDW SD 43.9 fl Normal 35.1-43.9 [facility] Comment on above: Performed By: #### L 100.0100, L500.2500 #### [facility] [address] [place], [address] WBC (Bld) [#/Vol] 15.2 10*3/uL High 4.4-11.0 [facility] Comment on above: Performed By: #### L 100.0100, L500.2500 #### [facility] [address] [place], [address] Comprehensive Metabolic Prof ilon 03-14-2024 Albumin [Mass/Vol] 3.5 g/dL Normal 3.2-5.0 [facility] Comment on above: Performed By: #### L 100.0100, L500.2500 #### [facility] [address] [place], [address] Albumin/Globulin [Mass ratio] 0.7 {ratio} Low 0.9-2.4 [facility] Comment on above: Performed By: #### L 100.0100, L500.2500 #### [facility] [address] [place], [address] ALK P 82 U/L Normal 45-117 [facility] Comment on above: Performed By: #### L 100.0100, L500.2500 #### [facility] [address] [place], [address] ALT [Catalytic activity/Vol] 17 U/L Normal 16-61 [facility] Comment on above: Performed By: #### L 100.0100, L500.2500 #### [facility] [address] [place], [address] AST [Catalytic activity/Vol] 7 U/L Low 15-37 [facility] Comment on above: Performed By: #### L 100.0100, L500.2500 #### [facility] [address] [place], [address] Bilirubin [Mass/Vol] 0.40 mg/dL Normal 0.20-1.00 [facility] Comment on above: Result Comment: For patients on eltrombopag therapy, use of Dimension [place] TBIL is not recommended. Performed By: #### L 100.0100, L500.2500 #### [facility] [address] [place], [address] BUN/CRE 11.7 RATIO Normal 10-20 [facility] Comment on above: Performed By: #### L 100.0100, L500.2500 #### [facility] [address] [place], [address] CA,Total 8.8 mg/dL Normal 8.5-10.1 [facility] Comment on above: Performed By: #### L 100.0100, L500.2500 #### [facility] [address] [place], [address] Chloride [Moles/Vol] 106 mmol/L Normal 98-107 [facility] Comment on above: Performed By: #### L 100.0100, L500.2500 #### [facility] [address] [place], [address] CO2 [Moles/Vol] 27.0 mmol/L Normal 21.0-32.0 [facility] Comment on above: Performed By: #### L 100.0100, L500.2500 #### [facility] [address] [place], [address] Creatinine [Mass/Vol] 1.03 mg/dL Normal 0.70-1.30 [facility] Comment on above: Result Comment: The validity of the calculated GFR GFRAA in patients over 70 years has not been determined. Clinical correlation is essential. Performed By: #### L 100.0100, L500.2500 #### [facility] [address] [place], [address] ECRCL 82.35 ml/min Normal [facility] Comment on above: Performed By: #### L 100.0100, L500.2500 #### [facility] [address] [place], [address] EST GFR - AA 97 mL/min Normal >60 [facility] Comment on above: Result Comment: Afri can [place] GFR Calc Performed By: #### L 100.0100, L500.2500 #### [facility] [address] [place], [address] GAP 5 Normal 5-15 [facility] Comment on above: Performed By: #### L 100.0100, L500.2500 #### [facility] [address] [place], [address] GFR/1.73 sq M.predicted among non-blacks MDRD (S/P/Bld) [Vol rate/Area] 80 mL/min/{1.73_m2} Normal >60 [facility] Comment on above: Result Comment: Non- GFR Calc Performed By: #### L 100.0100, L500.2500 #### [facility] [address] [place], [address] Globulin (S) [Mass/Vol] 4.8 g/dL High 2.2-4.2 [facility] Comment on above: Performed By: #### L 100.0100, L500.2500 #### [facility] [address] [place], [address] Glucose [Mass/Vol] 145 mg/dL High 74-106 [facility] Comment on above: Result Comment: Fast ing Glucose result greater than or equal to 126 mg/dL suggests DIABETES MELLITUS per A.D.A. criteria. Performed By: #### L 100.0100, L500.2500 #### [facility] [address] [place], [address] Potassium [Moles/Vol] 4.3 mmol/L Normal 3.5-5.1 [facility] Comment on above: Performed By: #### L 100.0100, L500.2500 #### [facility] [address] [place], [address] Sodium [Moles/Vol] 138 mmol/L Normal 136-145 [facility] Comment on above: Performed By: #### L 100.0100, L500.2500 #### [facility] [address] [place], [address] T PROT 8.3 g/dL High 6.4-8.2 [facility] Comment on above: Performed By: #### L 100.0100, L500.2500 #### [facility] [address] [place], [address] Urea nitrogen [Mass/Vol] 12 mg/dL Normal 7-18 [facility] Comment on above: Performed By: #### L 100.0100, L500.2500 #### [facility] [address] [place], [address] Consultation - Intensiviston 03-14-2024 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 This note was generated with komoot dictation software. It may contain incorrect words, [...] Dr. Manuel Block of pulmonary medicine at [facility]. He appears to be on a [...] shortness of breath with prescribed medical therapy. [facility] Medical History Chronic hypoxic respiratory failure History [...] (Advair HFA) (more content not included)... Normal [facility] Emergency Department Summary on 03-14-2024 Emergency Department Summary [facility] Medical Records Department [address] [place] [id number] Emergency Department Summary 03/14/24 MR#: [id number] Acct: [id number] Name: LUIS STEELE II Rep #: [id number] : 1970 53 From: Anselmo Bustos DO [...] better and his pulse ox has improved. [facility] Medical History Chronic hypoxic respiratory failure History [...] Status Date / Time tramadol HCl (From [facility]) Allergy Swelling Verified 03/13/24 22:21 codeine AdvReac [...] H Respi (more content not included)... Normal [facility] H AND P Exam - Hospitaliston 03-14-2024 H&P Exam - Hospitalist [facility] Medical Records Department [address] [place] [address] H P Exam - Hospitalist 03/14/24 0206 MR#: [id number] Acct: [id number] Name: LUIS STEELE AUDREY Rep #: [id number] : 1970 53 From: Joie Lopez DO [...] to medical surgical floor at that time. [facility] Medical History Chronic hypoxic respiratory failure History [...] Status Date / Time tramadol HCl (From [facility]) Allergy Swelling Verified 03/13/24 22:21 codeine AdvReac [...] smoking: P (more content not included)... Normal [facility] Lactic Acidon 03-14-2024 Lactate [Moles/Vol] 1.6 mmol/L Normal 0.4-1.9 [facility] Comment on above: Performed By: #### L 100.0100, L500.2500 #### [facility] [address] [place], [address] Legionella Antigen Urineon 0 03-14-2024 LEGU Comments: Only Recommended for severe cases of pneumonia Only Recommended for severe cases of pneumonia URINE, CLEAN CATCH Legionella Antigen result interpretation: L pneumo Ag Ur Ql Negative Presumptive negative for Legionella pneumophila serogroup 1 antigen in urine, suggesting no recent or current infection. Legionella Ag, Urine Negative (See interpretation below) Normal [facility] Comment on above: Performed By: #### L 503.6620, L500.2500, L501.5200, L509.7000 #### [facility] [address] [place], [address] Magnesiumon 03-14-2024 Magnesium [Mass/Vol] 1.7 mg/dL Normal 1.6-2.6 [facility] Comment on above: Performed By: #### L 100.0100, L500.2500 #### [facility] [address] [place], [address] Phosphoruson 03-14-2024 Phosphate [Mass/Vol] 1.6 mg/dL Low 2.5-4.9 [facility] Comment on above: Performed By: #### L 100.0100, L500.2500 #### [facility] [address] [place], [address] RESPIRATORY PANEL MOLECULARo n 03-14-2024 RP PANEL ADENOVIRUS Not Detected INFLUENZA A Not Detected INFLUENZA A (SUBTYPE H1) Not Detected INFLUENZA A (SUBTYPE H3) Not Detected INFLUENZA B Not Detected HUMAN METAPHNEUMO Not Detected PARAINFLUENZA 1 Not Detected PARAINFLUENZA 2 Not Detected PARAINFLUENZA 3 Not Detected PARAINFLUENZA 4 Not Detected RHINOVIRUS Not Detected RSV A Not Detected RSV B Not Detected Normal [facility] Comment on above: Performed By: #### L 503.6620, L500.2500, L501.5200, L509.7000 #### [facility] [address] [place], [address] Retic Panelon 03-14-2024 IM RET FRACTION 20.30 High 3.00-15.90 [facility] Comment on above: Performed By: #### L 100.0100, L500.2500 #### [facility] [address] [place], [address] RET-HE 16.7 pg Low 30-35 [facility] Comment on above: Performed By: #### L 100.0100, L500.2500 #### [facility] [address] [place], [address] Retic Count 1.64 High 0.5-1.5 [facility] Comment on above: Performed By: #### L 100.0100, L500.2500 #### [facility] [address] [place], [address] Strep pneumoniae Antig(UR,CS F)on 03-14-2024 STPAG Comments: [...] Test Negative URINE (See interpretation below) Normal [facility] Comment on above: Performed By: #### L 503.6620, L500.2500, L501.5200, L509.7000 #### [facility] [address] [place], [address] Thyroid Stim Hormone (TSH)on 03-14-2024 TSH 0.416 uIU/mL Normal 0.358-3.740 [facility] Comment on above: Performed By: #### L 100.0100, L500.2500 #### [facility] [address] [place], [address] BNP,B-Type NATRIURETIC PEPTI Becky 03-13-2024 Natriuretic peptide B (Bld) [Mass/Vol] 8.0 pg/mL Normal 0-100 [facility] Comment on above: Performed By: #### L 100.0100, L500.2500 #### [facility] [address] [place], [address] Basic Metabolic Profile (BMP )on 03-13-2024 BUN/CRE 10.6 RATIO Normal 10-20 [facility] Comment on above: Performed By: #### L 100.0100, L500.2500 #### [facility] [address] [place], [address] CA,Total 9.4 mg/dL Normal 8.5-10.1 [facility] Comment on above: Performed By: #### L 100.0100, L500.2500 #### [facility] [address] [place], [address] Chloride [Moles/Vol] 105 mmol/L Normal 98-107 [facility] Comment on above: Performed By: #### L 100.0100, L500.2500 #### [facility] [address] [place], [address] CO2 [Moles/Vol] 28.0 mmol/L Normal 21.0-32.0 [facility] Comment on above: Performed By: #### L 100.0100, L500.2500 #### [facility] [address] [place], [address] Creatinine [Mass/Vol] 1.04 mg/dL Normal 0.70-1.30 [facility] Comment on above: Result Comment: The validity of the calculated GFR GFRAA in patients over 70 years has not been determined. Clinical correlation is essential. Performed By: #### L 100.0100, L500.2500 #### [facility] [address] [place], [address] ECRCL 84.82 ml/min Normal [facility] Comment on above: Performed By: #### L 100.0100, L500.2500 #### [facility] [address] [place], [address] EST GFR - AA 96 mL/min Normal >60 [facility] Comment on above: Result Comment: Afri can [place] GFR Calc Performed By: #### L 100.0100, L500.2500 #### [facility] [address] [place], [address] GAP 6 Normal 5-15 [facility] Comment on above: Performed By: #### L 100.0100, L500.2500 #### [facility] [address] [place], [address] GFR/1.73 sq M.predicted among non-blacks MDRD (S/P/Bld) [Vol rate/Area] 79 mL/min/{1.73_m2} Normal >60 [facility] Comment on above: Result Comment: Non- GFR Calc Performed By: #### L 100.0100, L500.2500 #### [facility] [address] [place], [address] Glucose [Mass/Vol] 144 mg/dL High 74-106 [facility] Comment on above: Result Comment: Fast ing Glucose result greater than or equal to 126 mg/dL suggests DIABETES MELLITUS per A.D.A. criteria. Performed By: #### L 100.0100, L500.2500 #### [facility] [address] [place], [address] Potassium [Moles/Vol] 4.5 mmol/L Normal 3.5-5.1 [facility] Comment on above: Performed By: #### L 100.0100, L500.2500 #### [facility] [address] [place], [address] Sodium [Moles/Vol] 139 mmol/L Normal 136-145 [facility] Comment on above: Performed By: #### L 100.0100, L500.2500 #### [facility] [address] [place], [address] Urea nitrogen [Mass/Vol] 11 mg/dL Normal 7-18 [facility] Comment on above: Performed By: #### L 100.0100, L500.2500 #### [facility] [address] [place], [address] Blood Gases by [place] [facility] 024 COY TEST Positive Normal [facility] Comment on above: Performed By: #### L 100.0100, L500.2500 #### [facility] [address] [place], [address] Base excess Calc (Bld) [Moles/Vol] 1 mmol/L Normal -2 to +2 [facility] Comment on above: Performed By: #### L 100.0100, L500.2500 #### [facility] [address] [place], [address] Blood Gas Type ART Normal [facility] Comment on above: Performed By: #### L 100.0100, L500.2500 #### [facility] [address] [place], [address] CO2 [Moles/Vol] 28 mmol/L Normal [facility] Comment on above: Performed By: #### L 100.0100, L500.2500 #### [facility] [address] [place], [address] Comment Normal [facility] Comment on above: Result Comment: AVAP S 450vt 12rr +8 maxP=24 minP=16 40% Performed By: #### L 100.0100, L500.2500 #### [facility] [address] [place], [address] FI02 40.0 Normal [facility] Comment on above: Performed By: #### L 100.0100, L500.2500 #### [facility] [address] [place], [address] HCO3 (Bld) [Moles/Vol] 26.2 mmol/L High 22-26 [facility] Comment on above: Performed By: #### L 100.0100, L500.2500 #### [facility] [address] [place], [address] Mode Not entered Normal [facility] Comment on above: Performed By: #### L 100.0100, L500.2500 #### [facility] [address] [place], [address] O2 Delivery Dev BiPAP Normal [facility] Comment on above: Performed By: #### L 100.0100, L500.2500 #### [facility] [address] [place], [address] pCO2 45.0 mmHg Normal 35-45 [facility] Comment on above: Performed By: #### L 100.0100, L500.2500 #### [facility] [address] [place], [address] pH (Bld) 7.37 [pH] Normal 7.35-7.45 [facility] Comment on above: Performed By: #### L 100.0100, L500.2500 #### [facility] [address] [place], [address] PO2 98 mmHG Normal 75-100 [facility] Comment on above: Performed By: #### L 100.0100, L500.2500 #### [facility] [address] [place], [address] RR 12 Normal [facility] Comment on above: Performed By: #### L 100.0100, L500.2500 #### [facility] [address] [place], [address] SITE R Radial Normal [facility] Comment on above: Performed By: #### L 100.0100, L500.2500 #### [facility] [address] [place], [address] SO2 97 Normal 95-99 [facility] Comment on above: Performed By: #### L 100.0100, L500.2500 #### [facility] [address] [place], [address] Vt 450.0 mL Normal [facility] Comment on above: Performed By: #### L 100.0100, L500.2500 #### [facility] [address] [place], [address] CBC W/Diff, Automatedon 12-3 Absolute Lymph 3.65 X10 3/uL Normal 0.83-4.51 [facility] Comment on above: Performed By: #### L 100.0100, L500.2500 #### [facility] [address] [place], [address] Absolute Neut 9.5 X10 3/uL High 2.0-7.7 [facility] Comment on above: Performed By: #### L 100.0100, L500.2500 #### [facility] [address] [place], [address] Basophils/100 WBC (Bld) 0.4 % Normal 0-1 [facility] Comment on above: Performed By: #### L 100.0100, L500.2500 #### [facility] [address] [place], [address] Eosinophils/100 WBC (Bld) 1.3 % Normal 0-5 [facility] Comment on above: Performed By: #### L 100.0100, L500.2500 #### [facility] [address] [place], [address] Erythrocyte distribution width (RBC) [Ratio] 17.2 % High 11.6-14.6 [facility] Comment on above: Performed By: #### L 100.0100, L500.2500 #### [facility] [address] [place], [address] Hematocrit (Bld) [Volume fraction] 31.1 % Low 40-54 [facility] Comment on above: Performed By: #### L 100.0100, L500.2500 #### [facility] [address] [place], [address] Hemoglobin (Bld) [Mass/Vol] 8.6 g/dL Low 13.0-16.5 [facility] Comment on above: Performed By: #### L 100.0100, L500.2500 #### [facility] [address] [place], [address] IG% 0.700 Normal 0.0-0.9 [facility] Comment on above: Result Comment: IG% - Immature Granulocytes (promyelocytes, myelocytes and metamyelocytes) > 1% indicates that a LEFT SHIFT is Present. Performed By: #### L 100.0100, L500.2500 #### [facility] [address] [place], [address] Lymphocytes/100 WBC (Bld) 24.8 % Normal 19-41 [facility] Comment on above: Performed By: #### L 100.0100, L500.2500 #### [facility] [address] [place], [address] MCH (RBC) [Entitic mass] 19.9 pg Low 27.0-32.0 [facility] Comment on above: Performed By: #### L 100.0100, L500.2500 #### [facility] [address] [place], [address] MCHC (RBC) [Mass/Vol] 27.7 g/dL Low 32-36 [facility] Comment on above: Performed By: #### L 100.0100, L500.2500 #### [facility] [address] [place], [address] MCV (RBC) [Entitic vol] 72.0 fL Low 80-94 [facility] Comment on above: Performed By: #### L 100.0100, L500.2500 #### [facility] [address] [place], [address] Monocytes/100 WBC (Bld) 8.6 % Normal 0-10 [facility] Comment on above: Performed By: #### L 100.0100, L500.2500 #### [facility] [address] [place], [address] Neutrophils/100 WBC (Bld) 64.2 % Normal 47-70 [facility] Comment on above: Performed By: #### L 100.0100, L500.2500 #### [facility] [address] [place], [address] Nucleated RBC (Bld) [#/Vol] 0 10*3/uL Normal 0-5 [facility] Comment on above: Performed By: #### L 100.0100, L500.2500 #### [facility] [address] [place], [address] Platelet mean volume (Bld) [Entitic vol] 9.5 fL Normal 6.2-12.0 [facility] Comment on above: Performed By: #### L 100.0100, L500.2500 #### [facility] [address] [place], [address] Platelets (Bld) [#/Vol] 627 10*3/uL High 150-450 [facility] Comment on above: Performed By: #### L 100.0100, L500.2500 #### [facility] [address] [place], [address] RBC (Bld) [#/Vol] 4.32 10*6/uL Low 4.6-6.2 [facility] Comment on above: Performed By: #### L 100.0100, L500.2500 #### [facility] [address] [place], [address] RDW SD 44.5 fl High 35.1-43.9 [facility] Comment on above: Performed By: #### L 100.0100, L500.2500 #### [facility] [address] [place], [address] WBC (Bld) [#/Vol] 14.7 10*3/uL High 4.4-11.0 [facility] Comment on above: Performed By: #### L 100.0100, L500.2500 #### [facility] [address] [place], [address] CTA Chest W/WO Contraston CTA Chest W/WO Contrast [facility] [address] [place] [address] CTA Chest W/WO Contrast MR#: [id number] Acct: [id number] Name: LUIS STEELE II Rep #: [id number] : 1970 M 53 From: Leyda Durham PCP: Dr. Antwan Buchanan, DO Status: [facility] ER Study: CTA Chest W/WO Contrast Date of Exam: 03/13/24 Exam# [id number] Ordering Dr: Anselmo Bustos DO [id number] EXAM: CT ANGIOGRAPHY CHEST WITHOUT AND WITH [...] Dr. Antwan Buchanan DO; Anselmo Bustos DO Solutions Specialist: Signed Normal [facility] Chest 1 View (Portable)on Chest 1 View (Portable) [facility] Imaging Services [address] [place], [place] [address] Chest 1 View (Portable) MR#: [id number] Acct: [id number] Name: LUIS STEELE II Rep #: [id number] : 1970 M 53 From: Deshawn Mcintosh MD PCP: Dr. Antwan Buchanan DO Status: REG ER Study: Chest 1 View (Portable) Date of Exam: 03/13/24 Exam# [id number] Ordering Dr: Anselmo Bustos DO [id number] STUDY: X-RAY CHEST REASON FOR EXAM: Male, [...] , CC: Dr. Antwan Buchanan DO; Anselmo Bustso DO Solutions Specialist: Signed Normal [facility] Ferritinon 03-13-2024 Ferritin [Mass/Vol] 7 ng/mL Low 26-388 [facility] Comment on above: Performed By: #### L 503.6620, L500.2500, L501.5200, L509.7000 #### [facility] [address] [place], [address] Iron+Iron Binding Capacityon 03-13-2024 Iron [Mass/Vol] 15 ug/dL Low 65-175 [facility] Comment on above: Performed By: #### L 503.6620, L500.2500, L501.5200, L509.7000 #### [facility] [address] [place], [address] IRON SATURATION 3.1 Low 15.0-55.0 [facility] Comment on above: Performed By: #### L 503.6620, L500.2500, L501.5200, L509.7000 #### [facility] [address] [place], [address] TIBC 479 ug/dL High 250-450 [facility] Comment on above: Performed By: #### L 503.6620, L500.2500, L501.5200, L509.7000 #### [facility] [address] [place], [address] Lactic Acidon 03-13-2024 Lactate [Moles/Vol] 2.1 mmol/L Invalid Interpretation Code 0.4-1.9 [facility] Comment on above: Order Comment: Y Result Comment: Crit ical Result(s) Called at: 23:07:06 03/13/2024 by: ARMANDO VELEZ TO KARNYA SERRA. Results read back by same. Performed By: #### L 100.0100, L500.2500 #### [facility] [address] [place], [address] M100.678on 03-13-2024 M100.678 Pending SARS-CoV-2 (COVID 19) Negative INFLUENZA A Negative INFLUENZA B Negative RSV PCR Negative Normal [facility] Comment on above: Performed By: #### L 503.6620, L500.2500, L501.5200, L509.7000 #### [facility] [address] [place], [address] Magnesiumon 03-13-2024 Magnesium [Mass/Vol] 1.9 mg/dL Normal 1.6-2.6 [facility] Comment on above: Performed By: #### L 100.0100, L500.2500 #### [facility] [address] [place], [address] Procalcitoninon 03-13-2024 Procalcitonin 0.12 ng/mL High 0.00-0.09 [facility] Comment on above: Result Comment: A [...] Performed By: #### L 100.0100, L500.2500 #### [facility] [address] [place], [address] CT Chest [facility] 08-10 IMPRESSION: Severe emphysematous change with bullae [...] variation, most pronounced within LEFT lower lobe Solutions Specialist: MATEO Transcribe Date/Time: Aug 11 2023 3:30P Dictated by : LEYDA ROA MD This examination was interpreted and the report reviewed and electronically signed by: LEYDA ROA MD on Aug 11 2023 3:47PM [facility] DIVISION OF RADIOLOGY * * *Final Report* * * DATE OF EXAM: Aug 11 2023 8:39AM [facility] 0541 - CT CHEST WO IVCON / [...] No abnormality in the imaged upper abdomen. Pattern Room Attendant (topogram) images: No additional findings. . DIVISION OF RADIOLOGY Provider, [facility] - 08/11/2023 * * *Final Report* * * DATE OF EXAM: Aug 11 2023 8:39AM [facility] 0541 - CT CHEST WO IVCON / [...] No abnormality in the imaged upper abdomen. Pattern Room Attendant (topogram) images: No additional findings. . IMPRESSION [...] variation, most pronounced within LEFT lower lobe Solutions Specialist: PSCB Transcribe Date/Time: Aug 11 2023 3:30P Dictated by : LEYDA ROA MD This examination was interpreted and the report reviewed and electronically signed by: LEYDA ROA MD on Aug 11 2023 3:47PM EST [facility] Radiology Study observation (narrative) [facility] CT Chest WO contrastOrdered By: Ccf Provider on 08-11-2023 [facility] CBC W Auto Differential pane l (Bld)on 02-18-2023 Basophils (Bld) [#/Vol] 0.04 10*3/uL <0.11 k/uL [facility] Basophils/100 WBC (Bld) 0.5 % [facility] Differential cell count method Nom (Bld) Auto [facility] Eosinophils (Bld) [#/Vol] 0.88 10*3/uL High <0.46 k/uL [facility] Eosinophils/100 WBC (Bld) 11.0 % [facility] Erythrocyte distribution width (RBC) [Ratio] 14.9 % 11.5 - 15.0 % [facility] Hematocrit (Bld) [Volume fraction] 40.1 % 39.0 - 51.0 % [facility] Hemoglobin (Bld) [Mass/Vol] 12.0 g/dL Low 13.0 - 17.0 g/dL [facility] Immature granulocytes (Bld) [#/Vol] 0.03 10*3/uL <0.10 k/uL [facility] Immature granulocytes/100 WBC (Bld) 0.4 % [facility] Lymphocytes (Bld) [#/Vol] 2.06 10*3/uL 1.00 - 4.00 k/uL [facility] Lymphocytes/100 WBC (Bld) 25.7 % [facility] MCH (RBC) [Entitic mass] 26.0 pg 26.0 - 34.0 pg [facility] MCHC (RBC) [Mass/Vol] 29.9 g/dL Low 30.5 - 36.0 g/dL [facility] MCV (RBC) [Entitic vol] 86.8 fL 80.0 - 100.0 fL [facility] Monocytes (Bld) [#/Vol] 0.99 10*3/uL High <0.87 k/uL [facility] Monocytes/100 WBC (Bld) 12.3 % [facility] Neutrophils (Bld) [#/Vol] 4.03 10*3/uL 1.45 - 7.50 k/uL [facility] Neutrophils/100 WBC (Bld) 50.1 % [facility] Nucleated RBC (Bld) [#/Vol] <0.01 k/uL [facility] Nucleated RBC/100 WBC (Bld) [Ratio] 0.0 /100 WBC [facility] Platelet mean volume (Bld) [Entitic vol] 9.8 fL 9.0 - 12.7 fL [facility] Platelets (Bld) [#/Vol] 396 10*3/uL 150 - 400 k/uL [facility] RBC (Bld) [#/Vol] 4.62 10*6/uL 4.20 - 6.0 0 m/uL [facility] WBC (Bld) [#/Vol] 8.03 10*3/uL 3.70 - 11. 00 k/uL [facility] Comprehensive metabolic 2000 panelon 02-18-2023 Albumin [Mass/Vol] 4.3 g/dL 3.9 - 4.9 g/dL [facility] ALP [Catalytic activity/Vol] 76 U/L 38 - 113 U/L [facility] ALT [Catalytic activity/Vol] 20 U/L 10 - 54 U/L [facility] Anion gap [Moles/Vol] 11 mmol/L 9 - 18 mmol/L [facility] AST [Catalytic activity/Vol] 12 U/L Low 14 - 40 U/L [facility] Bilirubin [Mass/Vol] 0.2 mg/dL 0.2 - 1 .3 mg/dL [facility] Calcium [Mass/Vol] 9.4 mg/dL 8.5 - 10. 2 mg/dL [facility] Chloride [Moles/Vol] 102 mmol/L 97 - 10 5 mmol/L [facility] CO2 [Moles/Vol] 28 mmol/L 22 - 30 mmol/L [facility] Creatinine [Mass/Vol] 1.11 mg/dL 0.73 - 1.22 mg/dL [facility] Estimated Glomerular Filtration Rate 80 mL/min/1.73m >=60 mL/min/1.73m [facility] Glucose [Mass/Vol] 92 mg/dL 74 - 99 mg/dL [facility] Potassium [Moles/Vol] 4.5 mmol/L 3.7 - 5.1 mmol/L [facility] Protein [Mass/Vol] 7.4 g/dL 6.3 - 8.0 g/dL [facility] Sodium [Moles/Vol] 141 mmol/L 136 - 144 mmol/L [facility] Urea nitrogen [Mass/Vol] 14 mg/dL 9 - 24 mg/dL [facility] FERRITIN BLDon 02-18-2023 Ferritin [Mass/Vol] 43.6 ng/mL 30.3 - 5 65.7 ng/mL [facility] Iron and Iron binding capaci ty panelon 02-18-2023 Iron [Mass/Vol] 20 ug/dL Low 41 - 186 ug/dL [facility] Iron binding capacity [Mass/Vol] 281 ug/dL 232 - 386 ug/dL [facility] Iron/TIBC [Molar ratio] 7.1 % Low 15.0 - 57.0 % [facility] TSH BLDon 02-18-2023 TSH Qn 0.993 m[IU]/L 0.270 - 4.200 mIU/L [facility] VITAMIN B12 BLOODon 02-19-20 Cobalamin (Vitamin B12) [Mass/Vol] 521 pg/mL 232 - 1,245 pg/mL [facility] CARECOORDon 02-15-2023 CARECOORD Normal [facility] [id number] 02-08-2023 [id number] Normal [facility] BASIC METABOLIC PANELon 01-13 Anion gap [Moles/Vol] 8 mmol/L Normal - [facility] Comment on above: Performed By: #### L AB113, OCS137, LAB15 ####[employer] Officer: FINN BONNER ([phone])[facility] ([place] [address] [place] Calcium [Mass/Vol] 9.2 mg/dL Normal 8.4-10.4 [facility] Comment on above: Performed By: #### L AB113, [id number], LAB15 ####[employer] Officer: FINN BONNER ([phone])[facility] [place] [address] Chloride [Moles/Vol] 100 mmol/L Normal 98-107 [facility] Comment on above: Performed By: #### L AB113, [id number], LAB15 ####[employer] Officer: FINN BONNER ([phone])[facility] ([facility])[address] [place] [address] CO2 [Moles/Vol] 28 mmol/L Normal 22-30 [facility] Comment on above: Performed By: #### Светлана AB113, HVI230, LAB15 ####[employer] Officer: FINN BONNER ([phone])[facility] ([facility])[address] [place] [address] Creatinine [Mass/Vol] 0.68 mg/dL Normal 0.66-1.25 [facility] Comment on above: Performed By: #### Светлана AB113, QWA156, LAB15 ####[employer] Officer: FINN BONNER ([phone])[facility] ([facility])[address] [place] [address] GLOMERULAR FILTRATION RATE ML/MIN/1.73 SQ M.PREDICTED >90.0 Normal >60.0 [facility] Comment on above: Result Comment: Calc ulation based on the Chronic Kidney Disease Epidemiology Collaboration (CKD-EPI) equation refit without adjustment for race Performed By: #### L AB113, JPT532, LAB15 ####[employer] Officer: FINN BONNER ([phone])[facility] ([facility])[address] [place] [address] Glucose [Mass/Vol] 107 mg/dL High 70-100 [facility] Comment on above: Performed By: #### L AB113, [id number], LAB15 ####[employer] Officer: FINN [phone])[facility] ([facility])[address] [place] [address] Potassium [Moles/Vol] 3.3 mmol/L Low 3.5-5.1 [facility] Comment on above: Performed By: #### L AB113, PVJ156, LAB15 ####[employer] Officer: FINN BONNER ([phone])[facility] ([facility])[address] [place] [address] Sodium [Moles/Vol] 137 mmol/L Normal 135-145 [facility] Comment on above: Performed By: #### L AB113, [id number], LAB15 ####[employer] Officer: FINN BONNER ([phone])[facility] ([facility])[address] [place] [address] Urea nitrogen [Mass/Vol] 7 mg/dL Low 9-20 [facility] Comment on above: Performed By: #### L AB113, GOF201, LAB15 ####[employer] Officer: FINN BONNER ([phone])[facility] [place] [address] Basic metabolic 1998 panelon 02-08-2023 Anion gap [Moles/Vol] 8 mmol/L 3 - 13 mmol/L [facility] Calcium [Mass/Vol] 9.2 mg/dL 8.4 - 10. 4 mg/dL [facility] Chloride [Moles/Vol] 100 mmol/L 98 - 10 7 mmol/L [facility] CO2 [Moles/Vol] 28 mmol/L 22 - 30 mmol/L [facility] Creatinine [Mass/Vol] 0.68 mg/dL 0.66 - 1.25 mg/dL [facility] GFR/1.73 sq M.predicted MDRD (S/P/Bld) [Vol rate/Area] - PINF [facility] Glucose [Mass/Vol] 107 mg/dL High 70 - 100 mg/dL [facility] Interpretation and review of laboratory results Abnormal [facility] Potassium [Moles/Vol] 3.3 mmol/L Low 3.5 - 5.1 mmol/L [facility] Sodium [Moles/Vol] 137 mmol/L 135 - 145 mmol/L [facility] Urea nitrogen [Mass/Vol] 7 mg/dL Low 9 - 20 mg/dL [facility] CALCIUM, IONIZEDon CALCIUM IONIZED 4.60 mg/dL Normal 4.30-5.20 [facility] Comment on above: Performed By: #### L AB54 ####[employer] Officer: FINN BONNER ([phone])[facility] ([facility])[address] [place] [address] PH, IONIZED CALCIUM 7.43 Normal 7.31-7.46 [facility] Comment on above: Performed By: #### L AB54 ####[employer] Officer: FINN BONNER ([phone])[facility] ([facility])[address] [place] [address] CARECOORDon 02-08-2023 CARECOORD Normal [facility] CBC W Auto Differential pane l (Bld)on 02-08-2023 Erythrocyte distribution width (RBC) [Ratio] 16.4 % High 11.5 - 14.5 % [facility] Hematocrit (Bld) [Volume fraction] 33.1 % Low 40.0 - 52.0 % [facility] Hemoglobin (Bld) [Mass/Vol] 10.2 g/dL Low 13.0 - 18.0 g/dL [facility] Interpretation and review of laboratory results Abnormal [facility] MCH (RBC) [Entitic mass] 25.3 pg Low 26.0 - 34.0 pg [facility] MCHC (RBC) [Mass/Vol] 30.9 % Low 32.0 - 36.0 % [facility] MCV (RBC) [Entitic vol] 82.0 fL 80.0 - 98.0 fL [facility] Nucleated RBC/100 WBC (Bld) [Ratio] 0.0 % [facility] Platelet mean volume (Bld) [Entitic vol] 7.6 fL 7.4 - 12.4 fL [facility] Platelets (Bld) [#/Vol] 378 10*3/uL 140 - 440 10*3/uL [facility] RBC (Bld) [#/Vol] 4.03 10*6/uL Low 4.40 - 5.9 0 10*6/uL [facility] WBC (Bld) [#/Vol] 9.6 10*3/uL 3.6 - 10.7 10*3/uL [facility] CBC WITH AUTO DIFFERENTIALon 02-08-2023 Erythrocyte distribution width (RBC) [Ratio] 16.4 % High 11.5-14.5 [facility] Comment on above: Performed By: #### L [id number], [id number] ####[employer] Officer: FINN BONNER ([phone])[facility])[address] [place] [address] ERYTHROCYTE MEAN CORPUSCULAR HEMOGLOBIN CONCENTRATION (G/DL) BY AUTOMATED 30.9 % Low 32.0-36.0 [facility] Comment on above: Performed By: #### L [id number], [id number] ####[employer] Officer: FINN BONNER ([phone])[facility])[address] [place] [address] Hematocrit (Bld) [Volume fraction] 33.1 % Low 40.0-52.0 [facility] Comment on above: Performed By: #### Светлана [id number], [id number] ####[employer] Officer: FINN BONNER ([phone])[facility])[address] [place] [address] Hemoglobin (Bld) [Mass/Vol] 10.2 g/dL Low 13.0-18.0 [facility] Comment on above: Performed By: #### L [id number], [id number] ####[employer] Officer: FINN BONNER ([phone])[facility])[address] [place] [address] MCH (RBC) [Entitic mass] 25.3 pg Low 26.0-34.0 [facility] Comment on above: Performed By: #### L [id number], [id number] ####[employer] Officer: FINN BONNER ([phone])[facility])[address] [place] [address] MCV (RBC) [Entitic vol] 82.0 fL Normal 80.0-98.0 [facility] Comment on above: Performed By: #### L [id number], [id number] ####[employer] Officer: FINN BONNER ([phone])[facility])[address] [place] [address] NRBC (PER 100 WBCS) BY AUTOMATED COUNT 0.0 /100 WBCs Normal 0.0-2.0 [facility] Comment on above: Performed By: #### L [id number], [id number] ####[employer] Officer: FINN BONNER ([phone])[facility])[address] [place] [address] Platelet mean volume (Bld) [Entitic vol] 7.6 fL Normal 7.4-12.4 [facility] Comment on above: Performed By: #### L [id number], [id number] ####[employer] Officer: FINN BONNER ([phone])[facility])[address] [place] [address] Platelets (Bld) [#/Vol] 378 10*3/uL Normal 140-440 [facility] Comment on above: Performed By: #### L [id number], [id number] ####[employer] Officer: FINN BONNER ([phone])[facility])[address] [place] [address] RBC (Bld) [#/Vol] 4.03 10*6/uL Low 4.40-5.90 [facility] Comment on above: Performed By: #### L [id number], [id number] ####[employer] Officer: FINN BONNER ([phone])[facility])[address] [place] [address] WBC (Bld) [#/Vol] 9.6 10*3/uL Normal 3.6-10.7 [facility] Comment on above: Performed By: #### L [id number], [id number] ####[employer] Officer: FINN BONNER ([phone])[facility])[address] [place] [address] Calcium.ionized [Moles/Vol]o n 02-08-2023 Calcium.ionized (Bld) [Moles/Vol] 4.60 mg/dL 4.30 - 5.20 mg/dL [facility] Interpretation and review of laboratory results Normal [facility] PH, IONIZED CALCIUM 7.43 7.31 - 7.46 [facility] Consulton 02-08-2023 Consult Normal [facility] ECG 12-LEADon 02-08-2023 ECG 12-LEAD IMPRESSION: Sinus rhythm Low voltage, precordial leads Nonspecific T abnormalities, diffuse leads Electronically Signed On 02-08-2023 14:18:53 EST by Edgar Powell Normal [facility] Laboratory - Chemistry and C hemistry - challengeon 02-08-2023 Magnesium [Mass/Vol] 1.8 mg/dL 1.6 - 2 .3 mg/dL [facility] MAGNESIUMon 02-08-2023 Magnesium [Mass/Vol] 1.8 mg/dL Normal 1.6-2.3 [facility] Comment on above: Performed By: #### L [id number], [id number], [id number] ####[employer] Officer: FINN BONNER ([phone])[address] MANUAL DIFFERENTIALon 2022 BASOPHILS (10*3/UL) IN BLOOD BY MANUAL COUNT 0.1 10*3/uL Normal 0.0-0.2 [facility] Comment on above: Performed By: #### L [id number], [id number] ####[employer] Officer: FINN BONNER ([phone])[address] BASOPHILS TOTAL PER COUNTED LEUKOCYTES BY MANUAL COUNT 1 Normal [facility] Comment on above: Performed By: #### L [id number], [id number] ####[employer] Officer: FINN BONNER ([phone])[facility])[address] [place] [address] [place] BASOPHILS/100 LEUKOCYTES IN BLOOD BY MANUAL COUNT 1 % Normal 0-2 [facility] Comment on above: Performed By: #### L [id number], [id number] ####[employer] Officer: FINN BONNER ([phone])[facility])[address] [place] [address] CELLS COUNTED TOTAL (#) IN BLOOD 100 Normal [facility] Comment on above: Performed By: #### L [id number], [id number] ####[employer] Officer: FINN BONNER ([phone])[facility])[address] [place] [address] DIFFERENTIAL METHOD Automated differenti al reported after manual slide review Normal [facility] Comment on above: Performed By: #### L [id number], [id number] ####[employer] Officer: FINN BONNER ([phone])[facility])[address] [place] [address] [place] EOSINOPHILS (10*3/UL) IN BLOOD BY MANUAL COUNT 0.7 10*3/uL High 0.0-0.5 [facility] Comment on above: Performed By: #### L [id number], [id number] ####[employer] Officer: FINN BONNER ([phone])[facility])[address] [place] [address] EOSINOPHILS TOTAL PER COUNTED LEUKOCYTES BY MANUAL COUNT 7 High 0-1 [facility] Comment on above: Performed By: #### L [id number], [id number] ####[employer] Officer: FINN BONNER ([phone])[facility])[address] [place] [address] [place] EOSINOPHILS/100 LEUKOCYTES IN BLOOD BY MANUAL COUNT 7 % High 1-6 [facility] Comment on above: Performed By: #### L [id number], [id number] ####[employer] Officer: FINN BONNER ([phone])[facility])[address] [place] [address] [place] LEUKOCYTES (10*3/UL) NUCLEATED ERYTHROCYTE ADJUST 9.6 10*3/uL Normal 3.6-10.7 [facility] Comment on above: Performed By: #### L [id number], [id number] ####[employer] Officer: FINN BONNER ([phone])[facility])[address] [place] [address] [place] LYMPHOCYTES (10*3/UL) IN BLOOD BY MANUAL COUNT 1.5 10*3/uL Normal 1.0-4.3 [facility] Comment on above: Performed By: #### L [id number], [id number] ####[employer] Officer: FINN BONNER ([phone])[facility])[address] [place] [address] LYMPHOCYTES TOTAL PER COUNTED LEUKOCYTES BY MANUAL COUNT 16 Normal [facility] Comment on above: Performed By: #### L [id number], [id number] ####[employer] Officer: FINN BONNER ([phone])[facility])[address] [place] [address] [place] LYMPHOCYTES/100 LEUKOCYTES IN BLOOD BY MANUAL COUNT 16 % Low 20-40 [facility] Comment on above: Performed By: #### L [id number], [id number] ####[employer] Officer: FINN BONNER ([phone])[facility])[address] [place] [address] [place] MONOCYTES (10*3/UL) IN BLOOD BY MANUAL COUNT 1.1 10*3/uL High 0.0-0.8 [facility] Comment on above: Performed By: #### L [id number], [id number] ####[employer] Officer: FINN BONNER ([phone])[facility])[address] [place] [address] MONOCYTES TOTAL PER COUNTED LEUKOCYTES BY MANUAL COUNT 11 Normal [facility] Comment on above: Performed By: #### L [id number], [id number] ####[employer] Officer: FINN BONNER ([phone])[facility])[address] [place] [address] MONOCYTES/100 LEUKOCYTES IN BLOOD BY MANUAL COUNT 11 % High 2-10 [facility] Comment on above: Performed By: #### L [id number], [id number] ####[employer] Officer: FINN BONNER ([phone])[facility])[address] [place] [address] NEUTROPHILS (SEGS+BANDS) (10*3/UL) BY MANUAL COUNT 6.2 10*3/uL Normal 1.8-7.0 [facility] Comment on above: Performed By: #### L [id number], [id number] ####[employer] Officer: FINN BONNER ([phone])[facility] ([facility])[address] [place] [address] NEUTROPHILS TOTAL PER COUNTED LEUKOCYTES BY MANUAL COUNT 65 Normal [facility] Comment on above: Performed By: #### L [id number], [id number] ####[employer] Officer: FINN BONNER ([phone])[facility] ([facility])[address] [place] [address] SEGEMENTED NEUTROPHILS/100 LEUKOCYTES BY MANUAL COUNT 65 % Normal 40-80 [facility] Comment on above: Performed By: #### L [id number], [id number] ####[employer] Officer: FINN BONNER ([phone])[facility] ([facility])[address] [place] [address] Manual differential performe d Ql (Bld)on 02-08-2023 Basophils (Bld) [#/Vol] 0.1 10*3/uL 0.0 - 0.2 10*3/uL [facility] [employer] Basophils Manual 1 [facility]th Basophils/100 WBC (Bld) 1 % 0 - 2 % [facility] [employer] Cells Counted Total (Bld) [#] 100 {cells} [facility] [employer] Differential Method Automated differenti al reported after manual slide review [facility] Eosinophils (Bld) [#/Vol] 0.7 10*3/uL High 0.0 - 0.5 10*3/uL [employer] Eosinophils Manual 7 High 0 - 1 [facility] Eosinophils/100 WBC (Bld) 7 % High 1 - 6 % [facility] Interpretation and review of laboratory results Abnormal [facility] Lymphocytes (Bld) [#/Vol] 1.5 10*3/uL 1.0 - 4.3 10*3/uL [employer] [facility] Lymphocytes Manual 16 [facility] Lymphocytes/100 WBC (Bld) 16 % Low 20 - 40 % [facility] Monocytes (Bld) [#/Vol] 1.1 10*3/uL High 0.0 - 0.8 10*3/uL [facility] Monocytes Manual 11 [facility]th Monocytes/100 WBC (Bld) 11 % High 2 - 10 % [facility] Neutrophils (Bld) [#/Vol] 6.2 10*3/uL 1.8 - 7.0 10*3/uL [facility] [employer] Neutrophils Manual 65 [facility] [employer] Segmented neutrophils/100 WBC (Bld) 65 % 40 - 80 % [facility] [employer] WBC corrected for nucl RBC (Bld) [#/Vol] 9.6 10*3/uL 3.6 - 10.7 10*3/uL [facility] [employer] [facility] [employer] No Panel InformationOrdered By: Edgar Powell on 02-08-2023 P [place] 78 degrees [facility] [employer] Work Phone: GA Interval 138 ms [facility] [employer] Work Phone: QRS [place] 73 degrees [facility] [employer] Work Phone: QRSD Interval 81 ms [facility] [employer] Work Phone: QT Interval 363 ms [facility] [employer] Work Phone: QTC Interval 440 ms [facility] [employer] Work Phone: T Wave [place] 264 degrees [facility] [employer] Work Phone: [facility] [employer] Work Phone: No Panel Informationon 02-08 CV EPIPHANY [facility] [employer] Interpretation and review of laboratory results Normal [facility] [employer] [facility] [employer] PHOSPHORUSon 02-08-2023 Phosphate [Mass/Vol] 3.0 mg/dL Normal 2.5-4.5 [facility] [employer] [facility] Comment on above: Performed By: #### L [id number], [id number], LAB15 ####[employer] Officer: FINN BONNER ([phone])[address] Phosphate [Moles/Vol]on 01-13 Phosphate [Mass/Vol] 3.0 mg/dL 2.5 - 4 .5 mg/dL [facility] [employer] Progress Noteon 02-08-2023 Progress Note Normal [facility] [employer] [facility] Vital signsOrdered By: Anastasia Powell on 02-08-2023 Heart rate 88 /min bpm [facility] [employer] Work Phone: BASIC METABOLIC PANELon 01-13 Anion gap [Moles/Vol] 7 mmol/L Normal 3-13 [facility] Comment on above: Performed By: #### L AB103, LAB15, [id number] ####[employer] Officer: FINN BONNER ([phone])[facility])[address] [place] [address] Calcium [Mass/Vol] 8.5 mg/dL Normal 8.4-10.4 [facility] Comment on above: Performed By: #### L AB103, LAB15, [id number] ####[employer] Officer: FINN BONNER ([phone])[facility] [place] [address] Chloride [Moles/Vol] 96 mmol/L Low 98-107 [facility] Comment on above: Performed By: #### Светлана AB103, LAB15, [id number] ####[employer] Officer: FINN BONNER ([phone])[facility] ([facility])[address] [place] [address] CO2 [Moles/Vol] 33 mmol/L High 22-30 [facility] Comment on above: Performed By: #### Светлана AB103, LAB15, [id number] ####[employer] Officer: FINN BONNER ([phone])[facility])[address] [place] [address] Creatinine [Mass/Vol] 0.64 mg/dL Low 0.66-1.25 [facility] Comment on above: Performed By: #### L AB103, LAB15, [id number] ####[employer] Officer: FINN BONNER ([phone])[facility])[address] [place] [address] GLOMERULAR FILTRATION RATE ML/MIN/1.73 SQ M.PREDICTED >90.0 Normal >60.0 [facility] Comment on above: Result Comment: Calc ulation based on the Chronic Kidney Disease Epidemiology Collaboration (CKD-EPI) equation refit without adjustment for race Performed By: #### L AB103, LAB15, [id number] ####[employer] Officer: FINN BONNER ([phone])[facility] ([facility])[address] [place] [address] [place] Glucose [Mass/Vol] 119 mg/dL High 70-100 [facility] Comment on above: Performed By: #### L AB103, LAB15, [id number] ####[employer] Officer: FINN BONNER ([phone])[facility] ([facility])[address] [place] [address] Potassium [Moles/Vol] 3.0 mmol/L Low 3.5-5.1 [facility] Comment on above: Performed By: #### L AB103, LAB15, [id number] ####[employer] Officer: FINN BONNER ([phone])[facility] ([facility])[address] [place] [address] Sodium [Moles/Vol] 136 mmol/L Normal 135-145 [facility] Comment on above: Performed By: #### Светлана AB103, LAB15, [id number] ####[employer] Officer: FINN BONNER ([phone])[facility] ([facility])[address] [place] [address] Urea nitrogen [Mass/Vol] 6 mg/dL Low 9-20 [facility] Comment on above: Performed By: #### L AB103, LAB15, [id number] ####[employer] Officer: FINN BONNER ([phone])[facility] ([facility])[address] [place] [address] Basic metabolic 1998 panelon 02-07-2023 Anion gap [Moles/Vol] 7 mmol/L 3 - 13 mmol/L [facility] Calcium [Mass/Vol] 8.5 mg/dL 8.4 - 10. 4 mg/dL [facility] Chloride [Moles/Vol] 96 mmol/L Low 98 - 10 7 mmol/L [facility] CO2 [Moles/Vol] 33 mmol/L High 22 - 30 mmol/L [facility] Creatinine [Mass/Vol] 0.64 mg/dL Low 0.66 - 1.25 mg/dL [facility] GFR/1.73 sq M.predicted MDRD (S/P/Bld) [Vol rate/Area] - PINF [facility] Glucose [Mass/Vol] 119 mg/dL High 70 - 100 mg/dL [facility] Potassium [Moles/Vol] 3.0 mmol/L Low 3.5 - 5.1 mmol/L [facility] Sodium [Moles/Vol] 136 mmol/L 135 - 145 mmol/L [facility] Urea nitrogen [Mass/Vol] 6 mg/dL Low 9 - 20 mg/dL [facility] CALCIUM, IONIZEDon CALCIUM IONIZED 4.30 mg/dL Normal 4.30-5.20 [facility] Comment on above: Performed By: #### L [id number] ####[employer] Officer: FINN BONNER ([phone])[facility] ([facility])[address] [place] [address] PH, IONIZED CALCIUM 7.45 Normal 7.31-7.46 [facility] Comment on above: Performed By: #### L AB54 ####[employer] Officer: FINN BONNER ([phone])[facility] ([facility])[address] [place] [address] CARECOORDon 02-07-2023 [place] Normal [facility] called [facility] for OT to see today for eval. [facility] CBC W Auto Differential pane l (Bld)on 02-07-2023 Basophils (Bld) [#/Vol] 0.1 10*3/uL 0.0 - 0.2 10*3/uL [facility] Basophils/100 WBC (Bld) 0.5 % 0.0 - 2.0 % [facility] Eosinophils (Bld) [#/Vol] 0.7 10*3/uL High 0.0 - 0.5 10*3/uL [facility] Eosinophils/100 WBC (Bld) 7.0 % High 1.0 - 6.0 % [facility] Erythrocyte distribution width (RBC) [Ratio] 16.4 % High 11.5 - 14.5 % [facility] Hematocrit (Bld) [Volume fraction] 32.9 % Low 40.0 - 52.0 % [facility] Hemoglobin (Bld) [Mass/Vol] 10.4 g/dL Low 13.0 - 18.0 g/dL [facility] Interpretation and review of laboratory results Abnormal [facility] Lymphocytes (Bld) [#/Vol] 1.3 10*3/uL 1.0 - 4.3 10*3/uL [facility] Lymphocytes/100 WBC (Bld) 13.4 % Low 20.0 - 40.0 % [facility] MCH (RBC) [Entitic mass] 26.0 pg 26.0 - 34.0 pg [facility] MCHC (RBC) [Mass/Vol] 31.6 % Low 32.0 - 36.0 % [facility] MCV (RBC) [Entitic vol] 82.1 fL 80.0 - 98.0 fL [facility] Monocytes (Bld) [#/Vol] 1.0 10*3/uL High 0.0 - 0.8 10*3/uL [facility] Monocytes/100 WBC (Bld) 11.0 % High 2.0 - 10.0 % [facility] Neutrophils (Bld) [#/Vol] 6.5 10*3/uL 1.8 - 7.0 10*3/uL [facility] Neutrophils/100 WBC (Bld) 68.1 % 40.0 - 80.0 % [facility] Nucleated RBC/100 WBC (Bld) [Ratio] 0.0 % [facility] Platelet mean volume (Bld) [Entitic vol] 7.4 fL 7.4 - 12.4 fL [facility] Platelets (Bld) [#/Vol] 324 10*3/uL 140 - 440 10*3/uL [facility] RBC (Bld) [#/Vol] 4.00 10*6/uL Low 4.40 - 5.9 0 10*6/uL [facility] WBC (Bld) [#/Vol] 9.5 10*3/uL 3.6 - 10.7 10*3/uL [facility] CBC WITH AUTO DIFFERENTIALon 02-07-2023 Basophils (Bld) [#/Vol] 0.1 10*3/uL Normal 0.0-0.2 [facility] Comment on above: Performed By: #### L [id number] ####[employer] Officer: FINN BONNER ([phone])[facility] ([address] Basophils/100 WBC (Bld) 0.5 % Normal 0.0-2.0 [facility] Comment on above: Performed By: #### L [id number] ####[employer] Officer: FINN BONNER ([phone])[facility])[address] [place] [address] Eosinophils (Bld) [#/Vol] 0.7 10*3/uL High 0.0-0.5 [facility] Comment on above: Performed By: #### L [id number] ####[employer] Officer: FINN BONNER ([phone])[facility])[address] [place] [address] Eosinophils/100 WBC (Bld) 7.0 % High 1.0-6.0 [facility] Comment on above: Performed By: #### L [id number] ####[employer] Officer: FINN BONNER ([phone])[facility])[address] [place] [address] Erythrocyte distribution width (RBC) [Ratio] 16.4 % High 11.5-14.5 [facility] Comment on above: Performed By: #### L [id number] ####[employer] Officer: FINN BONNER ([phone])[facility])[address] [place] [address] ERYTHROCYTE MEAN CORPUSCULAR HEMOGLOBIN CONCENTRATION (G/DL) BY AUTOMATED 31.6 % Low 32.0-36.0 [facility] Comment on above: Performed By: #### L [id number] ####[employer] Officer: FINN BONNER ([phone])[facility])[address] [place] [address] Hematocrit (Bld) [Volume fraction] 32.9 % Low 40.0-52.0 [facility] Comment on above: Performed By: #### L [id number] ####[employer] Officer: FINN BONNER ([phone])[facility])[address] [place] [address] Hemoglobin (Bld) [Mass/Vol] 10.4 g/dL Low 13.0-18.0 [facility] Comment on above: Performed By: #### L [id number] ####[employer] Officer: FINN BONNER ([phone])[facility])[address] [place] [address] Lymphocytes (Bld) [#/Vol] 1.3 10*3/uL Normal 1.0-4.3 [facility] Comment on above: Performed By: #### L [id number] ####[employer] Officer: FINN BONNER ([phone])[facility])[address] [place] [address] Lymphocytes/100 WBC (Bld) 13.4 % Low 20.0-40.0 [facility] Comment on above: Performed By: #### L [id number] ####[employer] Officer: FINN BONNER ([phone])[facility])[address] [place] [address] MCH (RBC) [Entitic mass] 26.0 pg Normal 26.0-34.0 [facility] Comment on above: Performed By: #### L [id number] ####[employer] Officer: FINN BONNER ([phone])[facility])[address] [place] [address] MCV (RBC) [Entitic vol] 82.1 fL Normal 80.0-98.0 [facility] Comment on above: Performed By: #### L [id number] ####[employer] Officer: FINN BONNER ([phone])[facility])[address] [place] [address] Monocytes (Bld) [#/Vol] 1.0 10*3/uL High 0.0-0.8 [facility] Comment on above: Performed By: #### L [id number] ####[employer] Officer: FINN BONNER ([phone])[facility])[address] [place] [address] Monocytes/100 WBC (Bld) 11.0 % High 2.0-10.0 [facility] Comment on above: Performed By: #### L [id number] ####[employer] Officer: FINN BONNER ([phone])[facility] ([facility])[address] [place] [address] Neutrophils (Bld) [#/Vol] 6.5 10*3/uL Normal 1.8-7.0 [facility] Comment on above: Performed By: #### L [id number] ####[employer] Officer: FINN BONNER ([id number])[facility] ([facility])[address] [place] [address] Neutrophils/100 WBC (Bld) 68.1 % Normal 40.0-80.0 [facility] Comment on above: Performed By: #### L [id number] ####[employer] Officer: FINN BONNER ([phone])[facility] ([facility])[address] [place] [address] NRBC (PER 100 WBCS) BY AUTOMATED COUNT 0.0 /100 WBCs Normal 0.0-2.0 [facility] Comment on above: Performed By: #### L [id number] ####[employer] Officer: FINN BONNER ([phone])[facility] ([facility])[address] [place] [address] Platelet mean volume (Bld) [Entitic vol] 7.4 fL Normal 7.4-12.4 [facility] Comment on above: Performed By: #### L [id number] ####[employer]: FINN BONNER ([phone])[facility] ([facility])[address] [place] [address] [place] Platelets (Bld) [#/Vol] 324 10*3/uL Normal 140-440 [facility] Comment on above: Performed By: #### L [id number] ####[employer]: FNIN BONNER ([phone])[facility] ([facility])[address] [place] [address] [place] RBC (Bld) [#/Vol] 4.00 10*6/uL Low 4.40-5.90 [facility] Comment on above: Performed By: #### L [id number] ####[employer] Officer: FINN BONNER ([id number])[facility] ([facility])[address] [place] [address] WBC (Bld) [#/Vol] 9.5 10*3/uL Normal 3.6-10.7 [facility] Comment on above: Performed By: #### L [id number] ####[employer] Officer: FINN BONNER ([id number])[facility] ([facility])[address] [place] [address] Calcium.ionized [Moles/Vol]o n 02-07-2023 Calcium.ionized (Bld) [Moles/Vol] 4.30 mg/dL 4.30 - 5.20 mg/dL [facility] Interpretation and review of laboratory results Normal [facility] PH, IONIZED CALCIUM 7.45 7.31 - 7.46 [facility] Laboratory - Chemistry and C hemistry - challengeon 02-07-2023 Troponin I.cardiac [Mass/Vol] ng/mL NINF - 0.034 ng/mL [facility] Magnesium [Mass/Vol] 1.8 mg/dL 1.6 - 2 .3 mg/dL [facility] Glucose [Mass/Vol] 130 mg/dL High 70 - 100 mg/dL [facility] MAGNESIUMon 02-07-2023 Magnesium [Mass/Vol] 1.8 mg/dL Normal 1.6-2.3 [facility] Comment on above: Performed By: #### L AB103, LAB15, [id number] ####[employer] Officer: FINN BONNER ([phone])[facility] ([facility])[address] [place] [address] Magnesium [Mass/Vol]on 02-07 Interpretation and review of laboratory results Normal [facility] No Panel Informationon 02-07 Interpretation and review of laboratory results Abnormal [facility] Interpretation and review of laboratory results Abnormal [facility] PHOSPHORUSon 02-07-2023 Phosphate [Mass/Vol] 2.3 mg/dL Low 2.5-4.5 [facility] Comment on above: Performed By: #### L AB103, LAB15, [id number] ####[employer] Officer: FINN BONNER ([phone])[facility] ([facility])[address] [place] [address] [place] Phosphate [Moles/Vol]on 01-13 Phosphate [Mass/Vol] 2.3 mg/dL Low 2.5 - 4 .5 mg/dL [facility] Progress Noteon 02-07-2023 Progress Note Normal [facility] Progress Note Normal [facility] Progress Note Normal [facility] TROPONIN, WITH SERIAL REFLEX on 02-07-2023 Troponin I.cardiac [Mass/Vol] ng/mL Normal <0.034 [facility] Comment on above: Result Comment: NATALIE Doss COMMENTS:Patients with high levels of Biotin oral intake (ie >5 mg/day) may have falsely decreased Troponin levels. Performed By: #### L [id number] ####[employer] Officer: FINN BONNER ([phone])[facility] ([facility])[address] [place] [address] [place] Troponin I.cardiac [Mass/Vol ]on 02-07-2023 Interpretation and review of laboratory results Normal [facility] XR ABDOMEN 1 VIEWon 02-08-20 XR ABDOMEN 1 VIEW Normal [facility] XR Abdomen Single viewon [facility] Radiology Study observation (narrative) [facility] XR CHEST 1 VIEWon 02-07-2023 XR CHEST 1 VIEW Normal [facility] XR Chest Single viewon 02-07 [facility]IOLOGY [facility] Radiology Study observation (narrative) [facility] BASIC METABOLIC PANELon 01-13 Anion gap [Moles/Vol] 9 mmol/L Normal 3-13 [facility] Comment on above: Performed By: #### L AB99, LAB15, LAB20 ####[employer] Officer: FINN BONNER ([phone])[facility] ([facility])[address] [place] [address] [place] Calcium [Mass/Vol] 8.6 mg/dL Normal 8.4-10.4 [facility] Comment on above: Performed By: #### L AB99, LAB15, LAB20 ####[employer] Officer: FINN BONNER ([phone])[facility] ([facility])[address] [place] [address] Chloride [Moles/Vol] 97 mmol/L Low 98-107 [facility] Comment on above: Performed By: #### Светлана AB99, LAB15, LAB20 ####[employer] Officer: FINN BONNER ([phone])[facility])[address] [place] [address] CO2 [Moles/Vol] 29 mmol/L Normal 22-30 [facility] Comment on above: Performed By: #### Светлана [place], LAB15, LAB20 ####[employer] Officer: FINN BONNER ([phone])[facility])[address] [place] [address] Creatinine [Mass/Vol] 0.66 mg/dL Normal 0.66-1.25 [facility] Comment on above: Performed By: #### Светлана AB99, LAB15, LAB20 ####[employer] Officer: FINN BONNER ([phone])[facility])[address] [place] [address] GLOMERULAR FILTRATION RATE ML/MIN/1.73 SQ M.PREDICTED >90.0 Normal >60.0 [facility] Comment on above: Result Comment: Calc ulation based on the Chronic Kidney Disease Epidemiology Collaboration (CKD-EPI) equation refit without adjustment for race Performed By: #### Светлана AB99, LAB15, LAB20 ####[employer] Officer: FINN BONNER ([phone])[facility] ([facility])[address] [place] [address] Glucose [Mass/Vol] 95 mg/dL Normal 70-100 [facility] Comment on above: Performed By: #### Светлана AB99, LAB15, LAB20 ####[employer] Officer: FINN BONNER ([phone])[facility])[address] [place] [address] Potassium [Moles/Vol] 3.3 mmol/L Low 3.5-5.1 [facility] Comment on above: Performed By: #### L AB99, LAB15, LAB20 ####[employer] Officer: FINN BONNER ([phone])[facility] [place] [address] Sodium [Moles/Vol] 135 mmol/L Normal 135-145 [facility] Comment on above: Performed By: #### L AB99, LAB15, LAB20 ####[employer] Officer: FINN BONNER ([phone])[facility] [place] [address] Urea nitrogen [Mass/Vol] 11 mg/dL Normal 9-20 [facility] Comment on above: Performed By: #### L AB99, LAB15, LAB20 ####[employer] Officer: FINN BONNER ([phone])[facility] ([facility])[address] [place] [address] Basic metabolic 1998 panelon 02-06-2023 Anion gap [Moles/Vol] 9 mmol/L 3 - 13 mmol/L [facility] Calcium [Mass/Vol] 8.6 mg/dL 8.4 - 10. 4 mg/dL [facility] Chloride [Moles/Vol] 97 mmol/L Low 98 - 10 7 mmol/L [facility] CO2 [Moles/Vol] 29 mmol/L 22 - 30 mmol/L [facility] Creatinine [Mass/Vol] 0.66 mg/dL 0.66 - 1.25 mg/dL [facility] GFR/1.73 sq M.predicted MDRD (S/P/Bld) [Vol rate/Area] - PINF [facility] Glucose [Mass/Vol] 95 mg/dL 70 - 100 mg/dL [facility] Interpretation and review of laboratory results Abnormal [facility] Potassium [Moles/Vol] 3.3 mmol/L Low 3.5 - 5.1 mmol/L [facility] Sodium [Moles/Vol] 135 mmol/L 135 - 145 mmol/L [facility] Urea nitrogen [Mass/Vol] 11 mg/dL 9 - 20 mg/dL [facility] CBC (HEMOGRAM)on 02-06-2023 Erythrocyte distribution width (RBC) [Ratio] 16.6 % High 11.5-14.5 [facility] Comment on above: Performed By: #### L [id number] ####[employer] Officer: FINN BONNER ([phone])[facility])[address] [place] [address] ERYTHROCYTE MEAN CORPUSCULAR HEMOGLOBIN CONCENTRATION (G/DL) BY AUTOMATED 31.4 % Low 32.0-36.0 [facility] Comment on above: Performed By: #### L [id number] ####[employer] Officer: FINN BONNER ([phone])[facility])[address] [place] [address] Hematocrit (Bld) [Volume fraction] 31.3 % Low 40.0-52.0 [facility] Comment on above: Performed By: #### L [id number] ####[employer] Officer: FINN BONNER ([phone])[facility])[address] [place] [address] Hemoglobin (Bld) [Mass/Vol] 9.8 g/dL Low 13.0-18.0 [facility] Comment on above: Performed By: #### L [id number] ####[employer] Officer: FINN BONNER ([phone])[facility])[address] [place] [address] MCH (RBC) [Entitic mass] 25.6 pg Low 26.0-34.0 [facility] Comment on above: Performed By: #### L [id number] ####[employer] Officer: FINN BONNER ([phone])[facility])[address] [place] [address] MCV (RBC) [Entitic vol] 81.7 fL Normal 80.0-98.0 [facility] Comment on above: Performed By: #### L [id number] ####[employer] Officer: FINN BONNER ([id number])[facility])[address] [place] [address] Platelet mean volume (Bld) [Entitic vol] 7.9 fL Normal 7.4-12.4 [facility] Comment on above: Performed By: #### L [id number] ####[employer] Officer: FINN BONNER ([phone])[facility] ([facility])[address] [place] [address] Platelets (Bld) [#/Vol] 345 10*3/uL Normal 140-440 [facility] Comment on above: Performed By: #### L [id number] ####[employer] Officer: FINN BONNER ([phone])[facility] ([facility])[address] [place] [address] RBC (Bld) [#/Vol] 3.83 10*6/uL Low 4.40-5.90 [facility] Comment on above: Performed By: #### L [id number] ####[employer] Officer: FINN BONNER ([id number])[facility] ([facility])[address] [place] [address] WBC (Bld) [#/Vol] 10.0 10*3/uL Normal 3.6-10.7 [facility] Comment on above: Performed By: #### L [id number] ####[employer] Officer: FINN BONNER ([phone])[facility])[address] [place] [address] CBC panel Auto (Bld)on 02-06 Erythrocyte distribution width (RBC) [Ratio] 16.6 % High 11.5 - 14.5 % [facility] Hematocrit (Bld) [Volume fraction] 31.3 % Low 40.0 - 52.0 % [facility] Hemoglobin (Bld) [Mass/Vol] 9.8 g/dL Low 13.0 - 18.0 g/dL [facility] Interpretation and review of laboratory results Abnormal [facility] MCH (RBC) [Entitic mass] 25.6 pg Low 26.0 - 34.0 pg [facility] MCHC (RBC) [Mass/Vol] 31.4 % Low 32.0 - 36.0 % [facility] MCV (RBC) [Entitic vol] 81.7 fL 80.0 - 98.0 fL [facility] Platelet mean volume (Bld) [Entitic vol] 7.9 fL 7.4 - 12.4 fL [facility] Platelets (Bld) [#/Vol] 345 10*3/uL 140 - 440 10*3/uL [facility] RBC (Bld) [#/Vol] 3.83 10*6/uL Low 4.40 - 5.9 0 10*6/uL [facility] WBC (Bld) [#/Vol] 10.0 10*3/uL 3.6 - 10.7 10*3/uL [facility] ECG 12-LEADon 02-06-2023 ECG 12-LEAD IMPRESSION: Sinus tachycardia Low voltage, precordial leads Nonspecific T wave abnormalities Electronically Signed On 02-06-2023 6:03:11 EST by Noa Barton [facility] HEPATIC FUNCTION PANELon Albumin [Mass/Vol] 3.2 g/dL Low 3.5-5.0 [facility] Comment on above: Performed By: #### Светлана AB99, LAB15, LAB20 ####[employer] Officer: FINN BONNER ([phone])[facility] ([facility])[address] [place] [address] ALP [Catalytic activity/Vol] 53 U/L Normal 38-126 [facility] Comment on above: Performed By: #### Светлана LOCO99, LAB15, LAB20 ####[employer] Officer: FINN BONNER ([phone])[facility] ([facility])[address] [place] [address] ALT [Catalytic activity/Vol] 24 U/L Normal 0-49 [facility] Comment on above: Performed By: #### Светлана AB99, LAB15, LAB20 ####[employer] Officer: FINN BONNER ([id number])[facility] ([facility])[address] [place] [address] [place] AST [Catalytic activity/Vol] 33 U/L Normal 15-46 [facility] Comment on above: Performed By: #### Светлана AB99, LAB15, LAB20 ####[employer] Officer: FINN BONNER ([phone])[facility] ([facility])[address] [place] [address] Bilirubin [Mass/Vol] 0.7 mg/dL Normal 0.2-1.3 [facility] Comment on above: Performed By: #### L AB99, LAB15, LAB20 ####[employer] Officer: FINN BONNER ([phone])[facility])[address] [place] [address] Bilirubin.indirect [Mass/Vol] 0.0 mg/dL Normal 0.0-0.3 [facility] Comment on above: Performed By: #### Светлана AB99, LAB15, LAB20 ####[employer] Officer: FINN BONNER ([phone])[facility])[address] [place] [address] Protein [Mass/Vol] 6.5 g/dL Normal 6.3-8.2 [facility] Comment on above: Performed By: #### L AB99, LAB15, LAB20 ####[employer] Officer: FINN BONNER ([phone])[facility])[address] [place] [address] Hepatic function 2000 panelo n 02-06-2023 Albumin [Mass/Vol] 3.2 g/dL Low 3.5 - 5.0 g/dL [facility] ALP [Catalytic activity/Vol] 53 U/L 38 - 126 U/L [facility] ALT [Catalytic activity/Vol] 24 U/L 0 - 49 U/L [facility] AST [Catalytic activity/Vol] 33 U/L 15 - 46 U/L [facility] Bilirubin [Mass/Vol] 0.7 mg/dL 0.2 - 1 .3 mg/dL [facility] Bilirubin.conjugated [Mass/Vol] 0.0 mg/dL 0.0 - 0.3 mg/dL [facility] Protein [Mass/Vol] 6.5 g/dL 6.3 - 8.2 g/dL [facility] LIPASEon 02-06-2023 Lipase [Catalytic activity/Vol] 1778 U/L High 23-300 [facility] Comment on above: Performed By: #### L AB99, LAB15, LAB20 ####[employer] Officer: FINN BONNER ([phone])[facility])[address] [place] [address] Laboratory - Chemistry and C hemistry - challengeon 02-06-2023 Glucose [Mass/Vol] 115 mg/dL High 70 - 100 mg/dL [facility] Lipase [Catalytic activity/Vol] 1778 U/L High 23 - 300 U/L [facility] Glucose [Mass/Vol] 86 mg/dL 70 - 100 mg/dL [facility] Glucose [Mass/Vol] 90 mg/dL 70 - 100 mg/dL [facility] Glucose [Mass/Vol] 86 mg/dL 70 - 100 mg/dL [facility] No Panel Informationon 02-06 Interpretation and review of laboratory results Abnormal [facility] Interpretation and review of laboratory results Abnormal [facility] Interpretation and review of laboratory results Normal [facility] P [place] 72 degrees [facility] GA Interval 133 ms [facility] QRS [place] 71 degrees [facility] QRSD Interval 75 ms [facility] QT Interval 298 ms [facility] QTC Interval 391 ms [facility] T Wave [place] -25 degrees [facility] CV EPIPHANY [facility] Interpretation and review of laboratory results Normal [facility] Interpretation and review of laboratory results Normal [facility] Progress Noteon 02-06-2023 Progress Note Normal [facility] RF videography Hypopharynx a nd Esophagus Views for swallowing function W speech and W barium contrast Liam 02-06-[address] [facility] Radiology Study observation (narrative) [facility] Vital signson 02-06-2023 Heart rate 104 /min bpm [facility] XR ABDOMEN 1 VIEWon 02-07-20 23 XR ABDOMEN 1 VIEW Normal [facility] XR ABDOMEN 1 VIEW [facility] XR Abdomen Single viewon [facility] Radiology Study observation (narrative) [facility] Radiology Study observation (narrative) [facility] XR Abdomen Single viewOrdere d By: Michael Villalobos on 02-06-2023 [facility] Work Phone: BASIC METABOLIC PANELon 01-13 Anion gap [Moles/Vol] 9 mmol/L Normal 3-13 [facility] Comment on above: Performed By: #### L AB15 ####[employer] Officer: FINN BONNER ([phone])[facility] ([facility])[address] [place] [address] Calcium [Mass/Vol] 8.2 mg/dL Low 8.4-10.4 [facility] Comment on above: Performed By: #### L AB15 ####[employer] Officer: FINN BONNER ([phone])[facility] [place] [address] Chloride [Moles/Vol] 99 mmol/L Normal 98-107 [facility] Comment on above: Performed By: #### L AB15 ####[employer] Officer: FINN BONNER ([phone])[facility] ([facility])[address] [place] [address] CO2 [Moles/Vol] 27 mmol/L Normal 22-30 [facility] Comment on above: Performed By: #### L AB15 ####[employer] Officer: FINN BONNER ([phone])[facility] ([facility])[address] [place] [address] Creatinine [Mass/Vol] 0.69 mg/dL Normal 0.66-1.25 [facility] Comment on above: Performed By: #### L AB15 ####[employer] Officer: FINN BONNER ([phone])[facility] ([facility])[address] [place] [address] GLOMERULAR FILTRATION RATE ML/MIN/1.73 SQ M.PREDICTED >90.0 Normal >60.0 [facility] Comment on above: Result Comment: Calc ulation based on the Chronic Kidney Disease Epidemiology Collaboration (CKD-EPI) equation refit without adjustment for race Performed By: #### L AB15 ####[employer] Officer: FINN BONNER ([phone])[facility] ([facility])[address] [place] [address] Glucose [Mass/Vol] 72 mg/dL Normal 70-100 [facility] Comment on above: Performed By: #### L AB15 ####[employer] Officer: FINN BONNER ([phone])[facility] ([facility])[address] [place] [address] Potassium [Moles/Vol] 4.0 mmol/L Normal 3.5-5.1 [facility] Comment on above: Performed By: #### L AB15 ####[employer] Officer: FINN BONNER ([phone])[facility] ([facility])[address] [place] [address] Sodium [Moles/Vol] 134 mmol/L Low 135-145 [facility] Comment on above: Performed By: #### L AB15 ####[employer] Officer: FINN BONNER ([phone])[facility])[address] [place] [address] Urea nitrogen [Mass/Vol] 17 mg/dL Normal 9-20 [facility] Comment on above: Performed By: #### L AB15 ####[employer] Officer: FINN BONNER ([phone])[facility] ([facility])[address] [place] [address] Basic metabolic 1998 panelon 02-05-2023 Anion gap [Moles/Vol] 9 mmol/L 3 - 13 mmol/L [facility] Calcium [Mass/Vol] 8.2 mg/dL Low 8.4 - 10. 4 mg/dL [facility] Chloride [Moles/Vol] 99 mmol/L 98 - 10 7 mmol/L [facility] CO2 [Moles/Vol] 27 mmol/L 22 - 30 mmol/L [facility] Creatinine [Mass/Vol] 0.69 mg/dL 0.66 - 1.25 mg/dL [facility] GFR/1.73 sq M.predicted MDRD (S/P/Bld) [Vol rate/Area] - PINF [facility] Glucose [Mass/Vol] 72 mg/dL 70 - 100 mg/dL [facility] Interpretation and review of laboratory results Abnormal [facility] Potassium [Moles/Vol] 4.0 mmol/L 3.5 - 5.1 mmol/L [facility] Sodium [Moles/Vol] 134 mmol/L Low 135 - 145 mmol/L [facility] Urea nitrogen [Mass/Vol] 17 mg/dL 9 - 20 mg/dL [facility] CBC (HEMOGRAM)on 02-05-2023 Erythrocyte distribution width (RBC) [Ratio] 16.7 % High 11.5-14.5 [facility] Comment on above: Performed By: #### L [id number] ####[employer] Officer: FINN BONNER ([phone])[facility])[address] [place] [address] ERYTHROCYTE MEAN CORPUSCULAR HEMOGLOBIN CONCENTRATION (G/DL) BY AUTOMATED 31.8 % Low 32.0-36.0 [facility] Comment on above: Performed By: #### L [id number] ####[employer] Officer: FINN BONNER ([phone])[facility])[address] [place] [address] Hematocrit (Bld) [Volume fraction] 27.6 % Low 40.0-52.0 [facility] Comment on above: Performed By: #### L [id number] ####[employer] Officer: FINN BONNER ([phone])[facility])[address] [place] [address] Hemoglobin (Bld) [Mass/Vol] 8.8 g/dL Low 13.0-18.0 [facility] Comment on above: Performed By: #### L [id number] ####[employer] Officer: FINN BONNER ([phone])[facility])[address] [place] [address] MCH (RBC) [Entitic mass] 26.1 pg Normal 26.0-34.0 [facility] Comment on above: Performed By: #### L [id number] ####[employer] Officer: FINN BONNER ([phone])[facility])[address] [place] [address] MCV (RBC) [Entitic vol] 82.1 fL Normal 80.0-98.0 [facility] Comment on above: Performed By: #### L [id number] ####[employer] Officer: FINN BONNER ([phone])[facility])[address] [place] [address] Platelet mean volume (Bld) [Entitic vol] 7.2 fL Low 7.4-12.4 [facility] Comment on above: Performed By: #### L [id number] ####[employer] Officer: FINN BONNER ([phone])[facility] ([facility])[address] [place] [address] Platelets (Bld) [#/Vol] 264 10*3/uL Normal 140-440 [facility] Comment on above: Performed By: #### L [id number] ####[employer] Officer: FINN BONNER ([phone])[facility] ([facility])[address] [place] [address] RBC (Bld) [#/Vol] 3.36 10*6/uL Low 4.40-5.90 [facility] Comment on above: Performed By: #### L [id number] ####[employer] Officer: FINN BONNER ([phone])[facility] ([facility])[address] [place] [address] WBC (Bld) [#/Vol] 6.8 10*3/uL Normal 3.6-10.7 [facility] Comment on above: Performed By: #### L [id number] ####[employer] Officer: FINN BONNER ([phone])[facility] ([facility])[address] [place] [address] CBC panel Auto (Bld)on 02-05 Erythrocyte distribution width (RBC) [Ratio] 16.7 % High 11.5 - 14.5 % [facility] Hematocrit (Bld) [Volume fraction] 27.6 % Low 40.0 - 52.0 % [facility] Hemoglobin (Bld) [Mass/Vol] 8.8 g/dL Low 13.0 - 18.0 g/dL [facility] Interpretation and review of laboratory results Abnormal [facility] MCH (RBC) [Entitic mass] 26.1 pg 26.0 - 34.0 pg [facility] MCHC (RBC) [Mass/Vol] 31.8 % Low 32.0 - 36.0 % [facility] MCV (RBC) [Entitic vol] 82.1 fL 80.0 - 98.0 fL [facility] Platelet mean volume (Bld) [Entitic vol] 7.2 fL Low 7.4 - 12.4 fL [facility] Platelets (Bld) [#/Vol] 264 10*3/uL 140 - 440 10*3/uL [facility] RBC (Bld) [#/Vol] 3.36 10*6/uL Low 4.40 - 5.9 0 10*6/uL [facility] WBC (Bld) [#/Vol] 6.8 10*3/uL 3.6 - 10.7 10*3/uL [facility] ECG 12-LEADon 02-05-2023 ECG 12-LEAD IMPRESSION: Sinus rhythm Electronically Signed On 02-05-2023 10:32:07 EST by Noa Nugent [facility] ECG 12-LEAD IMPRESSION: Sinus rhythm Nonspecific T wave abnormalities Electronically Signed On 02-05-2023 10:32:22 EST by Noa Nugent [facility] Laboratory - Chemistry and C hemistry - challengeon 02-05-2023 Glucose [Mass/Vol] 80 mg/dL 70 - 100 mg/dL [facility] Glucose [Mass/Vol] 97 mg/dL 70 - 100 mg/dL [facility] Glucose [Mass/Vol] 76 mg/dL 70 - 100 mg/dL [facility] Glucose [Mass/Vol] 74 mg/dL 70 - 100 mg/dL [facility] No Panel Informationon 02-05 Interpretation and review of laboratory results Normal [facility] Interpretation and review of laboratory results Normal [facility] P [place] 74 degrees [facility] GA Interval 141 ms [facility] QRS [place] 79 degrees [facility] QRSD Inter[facility] 82 ms [facility]val 342 ms [facility] QTC Interval 415 ms [facility] T Wave [place] 40 degrees [facility] CV EPIPHANY [facility] CV [facility] Interpretation and review of laboratory results Normal [facility] Interpretation and review of laboratory results Normal [facility] No Panel InformationOrdered By: Noa Nugent on 02-05-2023 P [place] 58 degrees [facility] Work Phone: GA Interval 136 ms [facility] Work Phone: QRS [place] 71 degrees [facility] [employer] Work Phone: QRSD Interval 79 ms [facility] [employer] Work Phone: QT Interval 379 ms [facility] [employer] Work Phone: QTC Interval 414 ms [facility] [employer] Work Phone: T Wave [place] 45 degrees [facility] [employer] Work Phone: [facility] [employer] Work Phone: Progress Noteon 02-05-[address] [facility] Progress Note Normal [facility] Progress Note [facility] Vital signson 02-05-2023 Heart rate 88 /min bpm [facility] [employer] Vital signsOrdered By: Noa Nugent on 02-05-2023 Heart rate 71 /min bpm [facility] [employer] Work Phone: XR ABDOMEN 1 VIEWon 02-06-20 23 XR ABDOMEN 1 VIEW Normal [facility] XR Abdomen Single viewon [facility] Radiology Study observation (narrative) [facility] [employer] XR Abdomen Single viewOrdere d By: Mindy Mcmahon on 02-05-2023 [facility] [employer] Work Phone: XR CHEST 1 VIEWon 02-05-2023 XR CHEST 1 VIEW Normal [facility] XR Chest Single viewon 02-05 [facility] Radiology Study observation (narrative) [facility] [employer] XR Chest Single viewOrdered By: Gerald Shah on 02-05-2023 [facility] [employer] Work Phone: BASIC METABOLIC PANELon 01-13 Anion gap [Moles/Vol] 7 mmol/L Normal 3-13 [facility] Comment on above: Performed By: #### L [id number] ####[employer] Officer: FINN BONNER ([phone])[facility] ([address] Calcium [Mass/Vol] 8.5 mg/dL Normal 8.4-10.4 [facility] Comment on above: Performed By: #### L [id number] ####[employer] Defense Officer: FINN BONNER ([phone])[facility] ([facility])[address] [place] [address] Chloride [Moles/Vol] 96 mmol/L Low 98-107 [facility] Comment on above: Performed By: #### L [id number] ####[employer] Defense Officer: FINN BONNER ([phone])[facility] ([facility])[address] [place] [address] CO2 [Moles/Vol] 30 mmol/L Normal 22-30 [facility] Comment on above: Performed By: #### L [id number] ####[employer] Officer: FINN BONNER ([phone])[facility] ([facility])[address] [place] [address] Creatinine [Mass/Vol] 0.73 mg/dL Normal 0.66-1.25 [facility] Comment on above: Performed By: #### L [id number] ####[employer] Officer: FINN BONNER ([id number])[facility] ([facility])[address] [place] [address] GLOMERULAR FILTRATION RATE ML/MIN/1.73 SQ M.PREDICTED >90.0 Normal >60.0 [facility] Comment on above: Result Comment: Calc ulation based on the Chronic Kidney Disease Epidemiology Collaboration (CKD-EPI) equation refit without adjustment for race Performed By: #### L [id number] ####[employer] Defense Officer: FINN BONNER ([phone])[facility] ([facility])[address] [place] [address] [place] Glucose [Mass/Vol] 91 mg/dL Normal 70-100 [facility] Comment on above: Performed By: #### L [id number] ####[employer] Defense Officer: FINN BONNER ([phone])[facility] ([facility])[address] [place] [address] Potassium [Moles/Vol] 4.1 mmol/L Normal 3.5-5.1 [facility] Comment on above: Performed By: #### L [id number] ####[employer] Officer: FINN BONNER ([phone])[facility] ([facility])[address] [place] [address] Sodium [Moles/Vol] 133 mmol/L Low 135-145 [facility] Comment on above: Performed By: #### L [id number] ####[employer] Defense Officer: FINN BONNER ([phone])[facility])[address] [place] [address] Urea nitrogen [Mass/Vol] 25 mg/dL High 9-20 [facility] Comment on above: Performed By: #### L [id number] ####[employer] Officer: FINN BONNER ([phone])[facility])[address] [place] [address] BLOOD GAS ARTERIALon 023 Base excess Calc (Bld) [Moles/Vol] 2.6 mmol/L Normal -3.0-3.0 [facility] Comment on above: Performed By: #### L [id number] ####[employer] Officer: FINN BONNER ([phone])[facility] ([facility])[address] [place] [address] CO2 [Moles/Vol] 29.9 mmol/L High 23.0-27.0 [facility] Comment on above: Performed By: #### L [id number] ####[employer] Defense Officer: FINN BONNER ([phone])[facility])[address] [place] [address] HCO3 (Bld) [Moles/Vol] 28.4 mmol/L High 21.0-25.0 [facility] Comment on above: Performed By: #### L [id number] ####[employer] Officer: FINN BONNER ([phone])[facility])[address] [place] [address] Hemoglobin (Bld) [Mass/Vol] 11.0 g/dL Normal Screen Only [facility] Comment on above: Performed By: #### L [id number] ####[employer] Officer: FINN BONNER ([phone])[facility])[address] [place] [address] OXYGEN SATURATION (%) IN ARTERIAL BLOOD 93.0 % Low 95.0-100.0 [facility] Comment on above: Performed By: #### L [id number] ####[employer] Officer: FINN BONNER ([phone])[facility] ([facility])[address] [place] [address] PCO2 ARTERIAL 49.1 mm Hg High >35.0-<45.0 [facility] Comment on above: Performed By: #### L [id number] ####[employer] Officer: FINN BONNER ([phone])[facility] ([facility])[address] [place] [address] PH ARTERIAL 7.380 Normal 7.350-7.450 [facility] Comment on above: Performed By: #### L [id number] ####[employer] Officer: FINN BONNER ([phone])[facility] ([facility])[address] [place] [address] PO2 ARTERIAL 70.2 mm Hg Low 80.0-100.0 [facility] Comment on above: Performed By: #### L [id number] ####[employer] Defense Officer: FINN BONNER ([phone])[facility])[address] [place] [address] SOURCE OF OXYGEN Nasal cannula Normal [facility] Comment on above: Result Comment: 6L Performed By: #### L [id number] ####[employer] Officer: FINN BONNER ([id number])[facility] ([facility])[address] [place] [address] Basic metabolic 1998 panelon 02-04-2023 Anion gap [Moles/Vol] 7 mmol/L 3 - 13 mmol/L [facility] Calcium [Mass/Vol] 8.5 mg/dL 8.4 - 10. 4 mg/dL [facility] Chloride [Moles/Vol] 96 mmol/L Low 98 - 10 7 mmol/L [facility] CO2 [Moles/Vol] 30 mmol/L 22 - 30 mmol/L [facility] Creatinine [Mass/Vol] 0.73 mg/dL 0.66 - 1.25 mg/dL [facility] GFR/1.73 sq M.predicted MDRD (S/P/Bld) [Vol rate/Area] - PINF [facility] Glucose [Mass/Vol] 91 mg/dL 70 - 100 mg/dL [facility] Interpretation and review of laboratory results Abnormal [facility] Potassium [Moles/Vol] 4.1 mmol/L 3.5 - 5.1 mmol/L [facility] Sodium [Moles/Vol] 133 mmol/L Low 135 - 145 mmol/L [facility] Urea nitrogen [Mass/Vol] 25 mg/dL High 9 - 20 mg/dL [facility] CARECOORDon 02-04-2023 CAR[place]OORD Normal [facility] CBC (HEMOGRAM)on 02-04-2023 Erythrocyte distribution width (RBC) [Ratio] 17.0 % High 11.5-14.5 [facility] Comment on above: Performed By: #### L [id number] ####[employer] Officer: FINN BONNER ([phone])[address] ERYTHROCYTE MEAN CORPUSCULAR HEMOGLOBIN CONCENTRATION (G/DL) BY AUTOMATED 32.1 % Normal 32.0-36.0 [facility] Comment on above: Performed By: #### L [id number] ####[employer] Officer: FINN BONNER ([id number])[facility])[address] [place] [address] Hematocrit (Bld) [Volume fraction] 32.3 % Low 40.0-52.0 [facility] Comment on above: Performed By: #### L [id number] ####[employer] Officer: FINN BONNER ([id number])[facility])[address] [place] [address] Hemoglobin (Bld) [Mass/Vol] 10.4 g/dL Low 13.0-18.0 [facility] Comment on above: Performed By: #### L [id number] ####[employer] Officer: FINN BONNER ([phone])[facility])[address] [place] [address] MCH (RBC) [Entitic mass] 26.2 pg Normal 26.0-34.0 [facility] Comment on above: Performed By: #### L [id number] ####[employer] Officer: FINN BONNER ([id number])[facility])[address] [place] [address] MCV (RBC) [Entitic vol] 81.6 fL Normal 80.0-98.0 [facility] Comment on above: Performed By: #### L [id number] ####[employer] Officer: FINN BONNER ([id number])[facility] ([facility])[address] [place] [address] Platelet mean volume (Bld) [Entitic vol] 7.7 fL Normal 7.4-12.4 [facility] Comment on above: Performed By: #### L [id number] ####[employer] Officer: FINN BONNER ([id number])[facility])[address] [place] [address] Platelets (Bld) [#/Vol] 322 10*3/uL Normal 140-440 [facility] Comment on above: Performed By: #### L [id number] ####[employer] Officer: FINN BONNER ([id number])[facility])[address] [place] [address] RBC (Bld) [#/Vol] 3.97 10*6/uL Low 4.40-5.90 [facility] Comment on above: Performed By: #### L [id number] ####[employer] Officer: FINN BONNER ([id number])[facility])[address] [place] [address] WBC (Bld) [#/Vol] 10.7 10*3/uL Normal 3.6-10.7 [facility] Comment on above: Performed By: #### L [id number] ####[employer] Officer: FINN BONNER ([phone])[facility])[address] [place] [address] CBC panel Auto (Bld)Ordered By: Phill Hancock on 02-04-2023 Erythrocyte distribution width (RBC) [Ratio] 17.0 % High 11.5 - 14.5 % [facility] Hematocrit (Bld) [Volume fraction] 32.3 % Low 40.0 - 52.0 % [facility] Hemoglobin (Bld) [Mass/Vol] 10.4 g/dL Low 13.0 - 18.0 g/dL [facility] Interpretation and review of laboratory results Abnormal [facility] MCH (RBC) [Entitic mass] 26.2 pg 26.0 - 34.0 pg [facility] MCHC (RBC) [Mass/Vol] 32.1 % 32.0 - 36.0 % [facility] MCV (RBC) [Entitic vol] 81.6 fL 80.0 - 98.0 fL [facility] Platelet mean volume (Bld) [Entitic vol] 7.7 fL 7.4 - 12.4 fL [facility] Platelets (Bld) [#/Vol] 322 10*3/uL 140 - 440 10*3/uL [facility] RBC (Bld) [#/Vol] 3.97 10*6/uL Low 4.40 - 5.9 0 10*6/uL [facility] WBC (Bld) [#/Vol] 10.7 10*3/uL 3.6 - 10.7 10*3/uL [facility] Laboratory - Chemistry and C hemistry - challengeon 02-04-2023 Glucose [Mass/Vol] 82 mg/dL 70 - 100 mg/dL [facility] Glucose [Mass/Vol] 93 mg/dL 70 - 100 mg/dL [facility] Glucose [Mass/Vol] 91 mg/dL 70 - 100 mg/dL [facility] Glucose [Mass/Vol] 91 mg/dL 70 - 100 mg/dL [facility] Base excess Calc (Bld) [Moles/Vol] 2.6 mmol/L -3.0 - 3.0 mmol/L [facility] CO2 (Bld) [Partial pressure] 49.1 mm[Hg] High - PINF [facility] CO2 [Moles/Vol] 29.9 mmol/L High 23.0 - 27.0 mmol/L [facility] HCO3 (Bld) [Moles/Vol] 28.4 mmol/L High 21.0 - 25.0 mmol/L [facility] Oxygen (Bld) [Partial pressure] 70.2 mm[Hg] Low [facility] pH (Bld) 7.380 [pH] 7.350 - 7.450 [facility] Laboratory - Hematology and Cell countson 02-04-2023 Hemoglobin (Bld) [Mass/Vol] 11.0 g/dL Screen Only [facility] No Panel Informationon 02-04 Interpretation and review of laboratory results Normal [facility] Interpretation and review of laboratory results Normal [facility] Interpretation and review of laboratory results Normal [facility] Interpretation and review of laboratory results Normal [facility] Interpretation and review of laboratory results Abnormal [facility] Source Of Oxygen Nasal cannula [facility] Progress Noteon 02-04-[address] [facility] Progress Note Normal [facility] Progress Note Normal [facility] Progress Note Normal [facility] Progress Note Normal [facility] XR ABDOMEN 1 VIEWon 02-05-20 XR ABDOMEN 1 VIEW Normal [facility] XR Abdomen Single viewon [facility] Radiology Study observation (narrative) [facility] XR CHEST 1 VIEWon 02-04-2023 XR CHEST 1 VIEW Normal [facility] XR Chest Single viewon 02-04 [facility] Radiology Study observation (narrative) [facility] XR Chest Single viewOrdered By: Glen Hoffman on 02-04-2023 [facility] Work Phone: BASIC METABOLIC PANELon 01-13 Anion gap [Moles/Vol] 7 mmol/L Normal 3-13 [facility] Comment on above: Performed By: #### L [id number] ####[employer] Officer: FINN BONNER ([id number])[facility] ([address] Calcium [Mass/Vol] 8.9 mg/dL Normal 8.4-10.4 [facility] Comment on above: Performed By: #### L [id number] ####[employer] Officer: FINN BONNER ([id number])[facility] ([facility])[address] [place] [address] Chloride [Moles/Vol] 96 mmol/L Low 98-107 [facility] Comment on above: Performed By: #### L [id number] ####[employer] Defense Officer: FINN BONNER ([phone])[facility] [place] [address] CO2 [Moles/Vol] 29 mmol/L Normal 22-30 [facility] Comment on above: Performed By: #### L [id number] ####[employer] Defense Officer: FINN BONNER ([phone])[facility] ([facility])[address] [place] [address] Creatinine [Mass/Vol] 0.87 mg/dL Normal 0.66-1.25 [facility] Comment on above: Performed By: #### L [id number] ####[employer] Officer: FINN BONNER ([phone])[facility] [place] [address] GLOMERULAR FILTRATION RATE ML/MIN/1.73 SQ M.PREDICTED >90.0 Normal >60.0 [facility] Comment on above: Result Comment: Calc ulation based on the Chronic Kidney Disease Epidemiology Collaboration (CKD-EPI) equation refit without adjustment for race Performed By: #### L [id number] ####[employer] Officer: FINN BONNER ([id number])[facility] [place] [address] Glucose [Mass/Vol] 109 mg/dL High 70-100 [facility] Comment on above: Performed By: #### L [id number] ####[employer] Officer: FINN BONNER ([phone])[facility] ([facility])[address] [place] [address] Potassium [Moles/Vol] 4.5 mmol/L Normal 3.5-5.1 [facility] Comment on above: Performed By: #### L [id number] ####[employer] Officer: FINN BONNER ([id number])[facility] ([facility])[address] [place] [address] Sodium [Moles/Vol] 131 mmol/L Low 135-145 [facility] Comment on above: Performed By: #### L [id number] ####[employer] Officer: FINN BONNER ([phone])[facility])[address] [place] [address] Urea nitrogen [Mass/Vol] 28 mg/dL High 9-20 [facility] Comment on above: Performed By: #### L [id number] ####[employer] Officer: FINN BONNER ([phone])[facility] ([facility])[address] [place] [address] BLOOD GAS ARTERIALon 023 Base excess Calc (Bld) [Moles/Vol] 3.4 mmol/L High -3.0-3.0 [facility] Comment on above: Performed By: #### L [id number] ####[employer] Officer: FINN BONNER ([phone])[facility] ([facility])[address] [place] [address] CO2 [Moles/Vol] 30.7 mmol/L High 23.0-27.0 [facility] Comment on above: Performed By: #### L [id number] ####[employer] Officer: FINN BONNER ([phone])[facility])[address] [place] [address] HCO3 (Bld) [Moles/Vol] 29.1 mmol/L High 21.0-25.0 [facility] Comment on above: Performed By: #### L [id number] ####[employer] Officer: FINN BONNER ([phone])[facility] ([facility])[address] [place] [address] [place] Hemoglobin (Bld) [Mass/Vol] 11.3 g/dL Normal Screen Only [facility] Comment on above: Performed By: #### L [id number] ####[employer] Officer: FINN BONNER ([id number])[facility])[address] [place] [address] OXYGEN SATURATION (%) IN ARTERIAL BLOOD 93.3 % Low 95.0-100.0 [facility] Comment on above: Performed By: #### L [id number] ####[employer] Officer: FINN BONNER ([phone])[facility] ([facility])[address] [place] [address] PCO2 ARTERIAL 49.6 mm Hg High >35.0-<45.0 [facility] Comment on above: Performed By: #### L [id number] ####[employer] Officer: FINN BONNER ([phone])[facility] ([facility])[address] [place] [address] PH ARTERIAL 7.387 Normal 7.350-7.450 [facility] Comment on above: Performed By: #### L [id number] ####[employer] Officer: FINN BONNER ([phone])[facility] ([facility])[address] [place] [address] PO2 ARTERIAL 74.1 mm Hg Low 80.0-100.0 [facility] Comment on above: Performed By: #### L [id number] ####[employer] Officer: FINN BONNER ([phone])[facility] ([facility])[address] [place] [address] SOURCE OF OXYGEN Vent Normal [facility] Comment on above: Performed By: #### L [id number] ####[employer] Officer: FINN BONNER ([phone])[facility] ([facility])[address] [place] [address] Basic metabolic 1998 panelon 02-03-2023 Anion gap [Moles/Vol] 7 mmol/L 3 - 13 mmol/L [facility] Calcium [Mass/Vol] 8.9 mg/dL 8.4 - 10. 4 mg/dL [facility] Chloride [Moles/Vol] 96 mmol/L Low 98 - 10 7 mmol/L [facility] CO2 [Moles/Vol] 29 mmol/L 22 - 30 mmol/L [facility] Creatinine [Mass/Vol] 0.87 mg/dL 0.66 - 1.25 mg/dL [facility] GFR/1.73 sq M.predicted MDRD (S/P/Bld) [Vol rate/Area] - PINF [facility] Glucose [Mass/Vol] 109 mg/dL High 70 - 100 mg/dL [facility] Interpretation and review of laboratory results Abnormal [facility] Potassium [Moles/Vol] 4.5 mmol/L 3.5 - 5.1 mmol/L [facility] Sodium [Moles/Vol] 131 mmol/L Low 135 - 145 mmol/L [facility] Urea nitrogen [Mass/Vol] 28 mg/dL High 9 - 20 mg/dL [facility] CBC (HEMOGRAM)on 02-03-2023 Erythrocyte distribution width (RBC) [Ratio] 17.8 % High 11.5-14.5 [facility] Comment on above: Performed By: #### L [id number] ####[employer] Officer: FINN BONNER ([phone])[address] ERYTHROCYTE MEAN CORPUSCULAR HEMOGLOBIN CONCENTRATION (G/DL) BY AUTOMATED 31.4 % Low 32.0-36.0 [facility] Comment on above: Performed By: #### L [id number] ####[employer] Officer: FINN BONNER ([phone])[facility])[address] [place] [address] Hematocrit (Bld) [Volume fraction] 32.9 % Low 40.0-52.0 [facility] Comment on above: Performed By: #### L [id number] ####[employer] Officer: FINN BONNER ([phone])[facility])[address] [place] [address] Hemoglobin (Bld) [Mass/Vol] 10.3 g/dL Low 13.0-18.0 [facility] Comment on above: Performed By: #### L [id number] ####[employer] Officer: FINN BONNER ([phone])[facility])[address] [place] [address] MCH (RBC) [Entitic mass] 25.6 pg Low 26.0-34.0 [facility] Comment on above: Performed By: #### L [id number] ####[employer] Officer: FINN [id number])[facility] ([address] MCV (RBC) [Entitic vol] 81.3 fL Normal 80.0-98.0 [facility] Comment on above: Performed By: #### L [id number] ####[employer] Officer: FINN BONNER ([phone])[facility])[address] [place] [address] Platelet mean volume (Bld) [Entitic vol] 7.2 fL Low 7.4-12.4 [facility] Comment on above: Performed By: #### L [id number] ####[employer] Officer: FINN BONNER ([id number])[facility])[address] [place] [address] Platelets (Bld) [#/Vol] 302 10*3/uL Normal 140-440 [facility] Comment on above: Performed By: #### L [id number] ####[employer] Defense Officer: FINN BONNER ([id number])[facility] ([facility])[address] [place] [address] RBC (Bld) [#/Vol] 4.04 10*6/uL Low 4.40-5.90 [facility] Comment on above: Performed By: #### L [id number] ####[employer] Officer: FINN BONNER ([phone])[facility])[address] [place] [address] WBC (Bld) [#/Vol] 11.2 10*3/uL High 3.6-10.7 [facility] Comment on above: Performed By: #### L [id number] ####[employer] Officer: FINN BONNER ([id number])[facility])[address] [place] [address] CBC panel Auto (Bld)on 02-03 Erythrocyte distribution width (RBC) [Ratio] 17.8 % High 11.5 - 14.5 % [facility] Hematocrit (Bld) [Volume fraction] 32.9 % Low 40.0 - 52.0 % [facility] Hemoglobin (Bld) [Mass/Vol] 10.3 g/dL Low 13.0 - 18.0 g/dL [facility] Interpretation and review of laboratory results Abnormal [facility] MCH (RBC) [Entitic mass] 25.6 pg Low 26.0 - 34.0 pg [facility] MCHC (RBC) [Mass/Vol] 31.4 % Low 32.0 - 36.0 % [facility] MCV (RBC) [Entitic vol] 81.3 fL 80.0 - 98.0 fL [facility] Platelet mean volume (Bld) [Entitic vol] 7.2 fL Low 7.4 - 12.4 fL [facility] Platelets (Bld) [#/Vol] 302 10*3/uL 140 - 440 10*3/uL [facility] RBC (Bld) [#/Vol] 4.04 10*6/uL Low 4.40 - 5.9 0 10*6/uL [facility] WBC (Bld) [#/Vol] 11.2 10*3/uL High 3.6 - 10.7 10*3/uL [facility] Laboratory - Chemistry and C hemistry - challengeon 02-03-2023 Glucose [Mass/Vol] 111 mg/dL High 70 - 100 mg/dL [facility] Glucose [Mass/Vol] 101 mg/dL High 70 - 100 mg/dL [facility] Glucose [Mass/Vol] 113 mg/dL High 70 - 100 mg/dL [facility] Base excess Calc (Bld) [Moles/Vol] 3.4 mmol/L High -3.0 - 3.0 mmol/L [facility] CO2 (Bld) [Partial pressure] 49.6 mm[Hg] High - PINF [facility] CO2 [Moles/Vol] 30.7 mmol/L High 23.0 - 27.0 mmol/L [facility] HCO3 (Bld) [Moles/Vol] 29.1 mmol/L High 21.0 - 25.0 mmol/L [facility] Oxygen (Bld) [Partial pressure] 74.1 mm[Hg] Low [facility] pH (Bld) 7.387 [pH] 7.350 - 7.450 [facility] Glucose [Mass/Vol] 101 mg/dL High 70 - 100 mg/dL [facility] Laboratory - Hematology and Cell countson 02-03-2023 Hemoglobin (Bld) [Mass/Vol] 11.3 g/dL Screen Only [facility] No Panel Informationon 02-03 Interpretation and review of laboratory results Abnormal [facility] Interpretation and review of laboratory results Abnormal [facility] Interpretation and review of laboratory results Abnormal [facility] Source Of Oxygen Vent [facility] Interpretation and review of laboratory results Abnormal [facility] Progress Noteon 02-03-2023 Progress Note [facility] XR ABDOMEN 1 VIEWon 02-04-20 XR ABDOMEN 1 VIEW Normal [facility] XR ABDOMEN 1 VIEW Normal [facility] XR Abdomen Single viewon [facility]Y [place] [facility] Radiology Study observation (narrative) [facility] Radiology Study observation (narrative) [facility] XR CHEST 1 VIEWon 02-03-2023 XR CHEST 1 VIEW Normal [facility] XR Chest Single viewon 02-03 [facility] Radiology Study observation (narrative) [facility] XR Chest Single viewOrdered By: Sina Barton on 02-03-2023 [facility] Work Phone: BASIC METABOLIC PANELon 01-13 Anion gap [Moles/Vol] 7 mmol/L Normal 3-13 [facility] Comment on above: Performed By: #### L [id number] ####[employer] Officer: FINN BONNER ([phone])[facility] [employer] Calcium [Mass/Vol] 8.6 mg/dL Normal 8.4-10.4 [facility] Comment on above: Performed By: #### L [id number] ####[employer] Officer: FINN BONNER ([phone])[address] Chloride [Moles/Vol] 97 mmol/L Low 98-107 [facility] Comment on above: Performed By: #### L [id number] ####[employer] Officer: FINN BONNER ([phone])[facility])[address] [place] [address] CO2 [Moles/Vol] 29 mmol/L Normal 22-30 [facility] Comment on above: Performed By: #### L [id number] ####[employer] Officer: FINN BONNER ([phone])[facility] [place] [address] Creatinine [Mass/Vol] 0.75 mg/dL Normal 0.66-1.25 [facility] Comment on above: Performed By: #### L [id number] ####[employer] Officer: FINN BONNER ([phone])[facility] ([facility])[address] [place] [address] GLOMERULAR FILTRATION RATE ML/MIN/1.73 SQ M.PREDICTED >90.0 Normal >60.0 [facility] Comment on above: Result Comment: Calc ulation based on the Chronic Kidney Disease Epidemiology Collaboration (CKD-EPI) equation refit without adjustment for race Performed By: #### L [id number] ####[employer] Officer: FINN BONNER ([phone])[facility] [place] [address] Glucose [Mass/Vol] 171 mg/dL High 70-100 [facility] Comment on above: Performed By: #### L [id number] ####[employer] Officer: FINN BONNER ([phone])[facility] ([facility])[address] [place] [address] Potassium [Moles/Vol] 3.9 mmol/L Normal 3.5-5.1 [facility] Comment on above: Performed By: #### L [id number] ####[employer] Officer: FINN BONNER ([phone])[facility] [place] [address] [place] Sodium [Moles/Vol] 133 mmol/L Low 135-145 [facility] Comment on above: Performed By: #### L [id number] ####[employer] Officer: FINN BONNER ([id number])[facility] [place] [address] [place] Urea nitrogen [Mass/Vol] 32 mg/dL High 9-20 [facility] Comment on above: Performed By: #### L [id number] ####[employer] Officer: FINN BONNER ([id number])[facility])[address] [place] [address] BLOOD GAS ARTERIALon 023 Base excess Calc (Bld) [Moles/Vol] 4.7 mmol/L High -3.0-3.0 [facility] Comment on above: Performed By: #### L [id number] ####[employer] Officer: FINN BONNER ([phone])[facility] ([facility])[address] [place] [address] CO2 [Moles/Vol] 31.7 mmol/L High 23.0-27.0 [facility] Comment on above: Performed By: #### L [id number] ####[employer] Defense Officer: FINN BONNER ([id number])[facility] ([facility])[address] [place] [address] HCO3 (Bld) [Moles/Vol] 30.2 mmol/L High 21.0-25.0 [facility] Comment on above: Performed By: #### L [id number] ####[employer] Officer: FINN BONNER ([phone])[facility])[address] [place] [address] Hemoglobin (Bld) [Mass/Vol] 10.8 g/dL Normal Screen Only [facility] Comment on above: Performed By: #### L [id number] ####[employer] Officer: FINN BONNER ([phone])[facility])[address] [place] [address] OXYGEN SATURATION (%) IN ARTERIAL BLOOD 91.2 % Low 95.0-100.0 [facility] Comment on above: Performed By: #### L [id number] ####[employer] Officer: FINN BONNER ([id number])[facility])[address] [place] [address] PCO2 ARTERIAL 49.2 mm Hg High >35.0-<45.0 [facility] Comment on above: Performed By: #### L [id number] ####[employer] Defense Officer: FINN BONNER ([id number])[facility] ([facility])[address] [place] [address] PH ARTERIAL 7.406 Normal 7.350-7.450 [facility] Comment on above: Performed By: #### L [id number] ####[employer] Officer: FINN BONNER ([id number])[facility] ([facility])[address] [place] [address] PO2 ARTERIAL 67.2 mm Hg Low 80.0-100.0 [facility] Comment on above: Performed By: #### L [id number] ####[employer] Officer: FINN BONNER ([phone])[facility])[address] [place] [address] SOURCE OF OXYGEN ETT Normal [facility] Comment on above: Performed By: #### L [id number] ####[employer] Officer: FINN BONNER ([id number])[facility] ([facility])[address] [place] [address] Basic metabolic 1998 panelon 02-02-2023 Anion gap [Moles/Vol] 7 mmol/L 3 - 13 mmol/L [facility] Calcium [Mass/Vol] 8.6 mg/dL 8.4 - 10. 4 mg/dL [facility] Chloride [Moles/Vol] 97 mmol/L Low 98 - 10 7 mmol/L [facility] CO2 [Moles/Vol] 29 mmol/L 22 - 30 mmol/L [facility] Creatinine [Mass/Vol] 0.75 mg/dL 0.66 - 1.25 mg/dL [facility] GFR/1.73 sq M.predicted MDRD (S/P/Bld) [Vol rate/Area] - PINF [facility] Glucose [Mass/Vol] 171 mg/dL High 70 - 100 mg/dL [facility] Interpretation and review of laboratory results Abnormal [facility] Potassium [Moles/Vol] 3.9 mmol/L 3.5 - 5.1 mmol/L [facility] Sodium [Moles/Vol] 133 mmol/L Low 135 - 145 mmol/L [facility] Urea nitrogen [Mass/Vol] 32 mg/dL High 9 - 20 mg/dL [facility] CARECOORDon 02-02-2023 CARECOORD Normal [facility] CBC (HEMOGRAM)on 02-02-2023 Erythrocyte distribution width (RBC) [Ratio] 17.3 % High 11.5-14.5 [facility] Comment on above: Performed By: #### L [id number] ####[employer] Officer: FINN BONNER ([id number])[facility])[address] [place] [address] ERYTHROCYTE MEAN CORPUSCULAR HEMOGLOBIN CONCENTRATION (G/DL) BY AUTOMATED 31.9 % Low 32.0-36.0 [facility] Comment on above: Performed By: #### L [id number] ####[employer] Officer: FINN BONNER ([id number])[facility])[address] [place] [address] Hematocrit (Bld) [Volume fraction] 31.4 % Low 40.0-52.0 [facility] Comment on above: Performed By: #### L [id number] ####[employer] Officer: FINN BONNER ([id number])[facility])[address] [place] [address] Hemoglobin (Bld) [Mass/Vol] 10.0 g/dL Low 13.0-18.0 [facility] Comment on above: Performed By: #### L [id number] ####[employer] Officer: FINN BONNER ([id number])[facility])[address] [place] [address] MCH (RBC) [Entitic mass] 26.3 pg Normal 26.0-34.0 [facility] Comment on above: Performed By: #### L [id number] ####[employer] Officer: FINN BONNER ([id number])[address] MCV (RBC) [Entitic vol] 82.4 fL Normal 80.0-98.0 [facility] Comment on above: Performed By: #### L [id number] ####[employer] Officer: FINN BONNER ([id number])[facility] ([facility])[address] [place] [address] Platelet mean volume (Bld) [Entitic vol] 7.8 fL Normal 7.4-12.4 [facility] Comment on above: Performed By: #### L [id number] ####[employer] Officer: FINN BONNER ([id number])[facility] ([facility])[address] [place] [address] Platelets (Bld) [#/Vol] 247 10*3/uL Normal 140-440 [facility] Comment on above: Performed By: #### L [id number] ####[employer] Officer: FINN BONNER ([id number])[facility] ([facility])[address] [place] [address] RBC (Bld) [#/Vol] 3.81 10*6/uL Low 4.40-5.90 [facility] Comment on above: Performed By: #### L [id number] ####[employer] Officer: FINN BONNER ([id number])[facility] ([facility])[address] [place] [address] WBC (Bld) [#/Vol] 6.3 10*3/uL Normal 3.6-10.7 [facility] Comment on above: Performed By: #### L [id number] ####[employer] Officer: FINN BONNER ([phone])[facility])[address] [place] [address] CBC panel Auto (Bld)Ordered By: Fara Cifuentes on 02-02-2023 Erythrocyte distribution width (RBC) [Ratio] 17.3 % High 11.5 - 14.5 % [facility] Hematocrit (Bld) [Volume fraction] 31.4 % Low 40.0 - 52.0 % [facility] Hemoglobin (Bld) [Mass/Vol] 10.0 g/dL Low 13.0 - 18.0 g/dL [facility] Interpretation and review of laboratory results Abnormal [facility] MCH (RBC) [Entitic mass] 26.3 pg 26.0 - 34.0 pg [facility] MCHC (RBC) [Mass/Vol] 31.9 % Low 32.0 - 36.0 % [facility] MCV (RBC) [Entitic vol] 82.4 fL 80.0 - 98.0 fL [facility] Platelet mean volume (Bld) [Entitic vol] 7.8 fL 7.4 - 12.4 fL [facility] Platelets (Bld) [#/Vol] 247 10*3/uL 140 - 440 10*3/uL [facility] RBC (Bld) [#/Vol] 3.81 10*6/uL Low 4.40 - 5.9 0 10*6/uL [facility] WBC (Bld) [#/Vol] 6.3 10*3/uL 3.6 - 10.7 10*3/uL [facility] CT ABDOMEN PELVIS W CONTRAST on 02-02-2023 CT ABDOMEN PELVIS W CONTRAST Normal [facility] CT Abdomen and Pelvis W cont rast Sara 02-02-2023 [facility] [place] [facility] RADIOLOGY [facility] Radiology Study observation (narrative) [facility] Consulton 02-02-2023 Consult Normal [facility] Laboratory - Chemistry and C hemistry - challengeon 02-02-2023 Glucose [Mass/Vol] 100 mg/dL 70 - 100 mg/dL [facility] Glucose [Mass/Vol] 140 mg/dL High 70 - 100 mg/dL [facility] Glucose [Mass/Vol] 162 mg/dL High 70 - 100 mg/dL [facility] Glucose [Mass/Vol] 164 mg/dL High 70 - 100 mg/dL [facility] Glucose [Mass/Vol] 108 mg/dL High 70 - 100 mg/dL [facility] Laboratory - Chemistry and C hemistry - challengeOrdered By: Kusum Bruce on 02-02-2023 Base excess Calc (Bld) [Moles/Vol] 4.7 mmol/L High -3.0 - 3.0 mmol/L [facility] CO2 (Bld) [Partial pressure] 49.2 mm[Hg] High - PINF [facility] CO2 [Moles/Vol] 31.7 mmol/L High 23.0 - 27.0 mmol/L [facility] HCO3 (Bld) [Moles/Vol] 30.2 mmol/L High 21.0 - 25.0 mmol/L [facility] Oxygen (Bld) [Partial pressure] 67.2 mm[Hg] Low [facility] pH (Bld) 7.406 [pH] 7.350 - 7.450 [facility] Laboratory - Hematology and Cell countsOrdered By: Kusum Bruce on 02-02-2023 Hemoglobin (Bld) [Mass/Vol] 10.8 g/dL Screen Only [facility] No Panel Informationon 02-02 Interpretation and review of laboratory results Normal [facility] Interpretation and review of laboratory results Abnormal [facility] Interpretation and review of laboratory results Abnormal [facility] Interpretation and review of laboratory results Abnormal [facility] Interpretation and review of laboratory results Abnormal [facility] No Panel InformationOrdered By: Kusum Bruce on 02-02-2023 Interpretation and review of laboratory results Abnormal [facility] Source Of Oxygen ETT [facility] Progress Noteon 02-02-[address] [facility] Progress Note Normal [facility] Progress Note Normal [facility] Progress Note [facility] XR ABDOMEN 1 VIEWon 02-03-20 23 XR ABDOMEN 1 VIEW Normal [facility] XR Abdomen Single viewon [facility] Radiology Study observation (narrative) [facility] XR CHEST 1 VIEWon 02-02-2023 XR CHEST 1 VIEW Normal [facility] XR CHEST 1 VIEW Normal [facility] XR Chest Single viewon 02-02 [facility] RADIOLOGY SYSTEM [facility] Radiology Study observation (narrative) [facility] Radiology Study observation (narrative) [facility] XR Chest Single viewOrdered By: Casa Wright on 02-02-2023 [facility] Work Phone: BASIC METABOLIC PANELon 01-13 Anion gap [Moles/Vol] 8 mmol/L Normal 3-13 [facility] Comment on above: Performed By: #### L [id number] ####[employer] Officer: FINN BONNER ([phone])[facility] [place] [address] Calcium [Mass/Vol] 9.2 mg/dL Normal 8.4-10.4 [facility] Comment on above: Performed By: #### L [id number] ####[employer] Officer: FINN BONNER ([phone])[facility] [place] [address] Chloride [Moles/Vol] 98 mmol/L Normal 98-107 [facility] Comment on above: Performed By: #### L AB15 ####[employer] Defense Officer: FINN BONNER ([phone])[facility] ([facility])[address] [place] [address] CO2 [Moles/Vol] 29 mmol/L Normal 22-30 [facility] Comment on above: Performed By: #### L AB15 ####[employer] Defense Officer: FINN BONNER ([phone])[facility] ([facility])[address] [place] [address] Creatinine [Mass/Vol] 0.76 mg/dL Normal 0.66-1.25 [facility] Comment on above: Performed By: #### L AB15 ####[employer] Officer: FINN BONNER ([phone])[facility])[address] [place] [address] GLOMERULAR FILTRATION RATE ML/MIN/1.73 SQ M.PREDICTED >90.0 Normal >60.0 [facility] Comment on above: Result Comment: Calc ulation based on the Chronic Kidney Disease Epidemiology Collaboration (CKD-EPI) equation refit without adjustment for race Performed By: #### L AB15 ####[employer] Officer: FINN BONNER ([phone])[facility] ([facility])[address] [place] [address] [place] Glucose [Mass/Vol] 106 mg/dL High 70-100 [facility] Comment on above: Performed By: #### L AB15 ####[employer] Officer: FINN BONNER ([phone])[facility] ([facility])[address] [place] [address] [place] Potassium [Moles/Vol] 4.6 mmol/L Normal 3.5-5.1 [facility] Comment on above: Performed By: #### L AB15 ####[employer] Officer: FINN BONNER ([phone])[facility] ([facility])[address] [place] [address] Sodium [Moles/Vol] 135 mmol/L Normal 135-145 [facility] Comment on above: Performed By: #### L AB15 ####[employer] Officer: FINN BONNER ([phone])[facility] ([facility])[address] [place] [address] Urea nitrogen [Mass/Vol] 36 mg/dL High 9-20 [facility] Comment on above: Performed By: #### L AB15 ####[employer] Officer: FINN BONNER ([phone])[facility] ([facility])[address] [place] [address] BLOOD GAS ARTERIALon 023 Base excess Calc (Bld) [Moles/Vol] 7.6 mmol/L High -3.0-3.0 [facility] Comment on above: Performed By: #### L [id number] ####[employer] Officer: FINN BONNER ([phone])[facility] ([facility])[address] [place] [address] CO2 [Moles/Vol] 35.2 mmol/L High 23.0-27.0 [facility] Comment on above: Performed By: #### L [id number] ####[employer] Officer: FINN BONNER ([phone])[facility] ([facility])[address] [place] [address] [place] HCO3 (Bld) [Moles/Vol] 33.5 mmol/L High 21.0-25.0 [facility] Comment on above: Performed By: #### L [id number] ####[employer] Officer: FINN BONNER ([phone])[facility] ([facility])[address] [place] [address] [place] Hemoglobin (Bld) [Mass/Vol] 10.2 g/dL Normal Screen Only [facility] Comment on above: Performed By: #### L [id number] ####[employer] Officer: FINN BONNER ([phone])[facility] ([facility])[address] [place] [address] OXYGEN SATURATION (%) IN ARTERIAL BLOOD 90.8 % Low 95.0-100.0 [facility] Comment on above: Performed By: #### L [id number] ####[employer] Officer: FINN BONNER ([id number])[facility] ([facility])[address] [place] [address] PCO2 ARTERIAL 54.7 mm Hg High >35.0-<45.0 [facility] Comment on above: Performed By: #### L [id number] ####[employer] Officer: FINN BONNER ([phone])[facility] ([facility])[address] [place] [address] PH ARTERIAL 7.405 Normal 7.350-7.450 [facility] Comment on above: Performed By: #### L [id number] ####[employer] Officer: FINN BONNER ([phone])[facility] ([facility])[address] [place] [address] PO2 ARTERIAL 62.9 mm Hg Low 80.0-100.0 [facility] Comment on above: Performed By: #### L [id number] ####[employer] Officer: FINN BONNER ([phone])[facility])[address] [place] [address] SOURCE OF OXYGEN ETT Normal [facility] Comment on above: Performed By: #### L [id number] ####[employer] Officer: FINN BONNER ([phone])[facility] ([facility])[address] [place] [address] Bacteria identified Cx Nom ( Bld)on 02-01-2023 Interpretation and review of laboratory results Normal [facility] Basic metabolic 1998 panelon 02-01-2023 Anion gap [Moles/Vol] 8 mmol/L 3 - 13 mmol/L [facility] Calcium [Mass/Vol] 9.2 mg/dL 8.4 - 10. 4 mg/dL [facility] Chloride [Moles/Vol] 98 mmol/L 98 - 10 7 mmol/L [facility] CO2 [Moles/Vol] 29 mmol/L 22 - 30 mmol/L [facility] Creatinine [Mass/Vol] 0.76 mg/dL 0.66 - 1.25 mg/dL [facility] GFR/1.73 sq M.predicted MDRD (S/P/Bld) [Vol rate/Area] - PINF [facility] Glucose [Mass/Vol] 106 mg/dL High 70 - 100 mg/dL [facility] Interpretation and review of laboratory results Abnormal [facility] Potassium [Moles/Vol] 4.6 mmol/L 3.5 - 5.1 mmol/L [facility] Sodium [Moles/Vol] 135 mmol/L 135 - 145 mmol/L [facility] Urea nitrogen [Mass/Vol] 36 mg/dL High 9 - 20 mg/dL [facility] CBC (HEMOGRAM)on 02-01-2023 Erythrocyte distribution width (RBC) [Ratio] 17.4 % High 11.5-14.5 [facility] Comment on above: Performed By: #### L [id number] ####[employer] Officer: FINN BONNER ([phone])[address] ERYTHROCYTE MEAN CORPUSCULAR HEMOGLOBIN CONCENTRATION (G/DL) BY AUTOMATED 32.2 % Normal 32.0-36.0 [facility] Comment on above: Performed By: #### L [id number] ####[employer] Officer: FINN BONNER ([phone])[facility])[address] [place] [address] Hematocrit (Bld) [Volume fraction] 29.5 % Low 40.0-52.0 [facility] Comment on above: Performed By: #### L [id number] ####[employer] Officer: FINN BONNER ([phone])[facility])[address] [place] [address] Hemoglobin (Bld) [Mass/Vol] 9.5 g/dL Low 13.0-18.0 [facility] Comment on above: Performed By: #### L [id number] ####[employer] Officer: FINN BONNER ([phone])[facility] ([facility])[address] [place] [address] MCH (RBC) [Entitic mass] 26.4 pg Normal 26.0-34.0 [facility] Comment on above: Performed By: #### L [id number] ####[employer] Officer: FINN BONNER ([phone])[facility])[address] [place] [address] MCV (RBC) [Entitic vol] 82.0 fL Normal 80.0-98.0 [facility] Comment on above: Performed By: #### L [id number] ####[employer] Officer: FINN BONNER ([phone])[facility])[address] [place] [address] Platelet mean volume (Bld) [Entitic vol] 7.6 fL Normal 7.4-12.4 [facility] Comment on above: Performed By: #### L [id number] ####[employer] Officer: FINN BONNER ([phone])[facility] ([facility])[address] [place] [address] Platelets (Bld) [#/Vol] 262 10*3/uL Normal 140-440 [facility] Comment on above: Performed By: #### L [id number] ####[employer] Officer: FINN BONNER ([phone])[facility])[address] [place] [address] RBC (Bld) [#/Vol] 3.60 10*6/uL Low 4.40-5.90 [facility] Comment on above: Performed By: #### L [id number] ####[employer] Officer: FINN BONNER ([phone])[facility])[address] [place] [address] WBC (Bld) [#/Vol] 6.7 10*3/uL Normal 3.6-10.7 [facility] Comment on above: Performed By: #### L [id number] ####[employer] Officer: FINN BONNER ([phone])[facility] ([facility])[address] [place] [address] CBC panel Auto (Bld)on 02-01 Erythrocyte distribution width (RBC) [Ratio] 17.4 % High 11.5 - 14.5 % [facility] Hematocrit (Bld) [Volume fraction] 29.5 % Low 40.0 - 52.0 % [facility] Hemoglobin (Bld) [Mass/Vol] 9.5 g/dL Low 13.0 - 18.0 g/dL [facility] Interpretation and review of laboratory results Abnormal [facility] MCH (RBC) [Entitic mass] 26.4 pg 26.0 - 34.0 pg [facility] MCHC (RBC) [Mass/Vol] 32.2 % 32.0 - 36.0 % [facility] MCV (RBC) [Entitic vol] 82.0 fL 80.0 - 98.0 fL [facility] Platelet mean volume (Bld) [Entitic vol] 7.6 fL 7.4 - 12.4 fL [facility] Platelets (Bld) [#/Vol] 262 10*3/uL 140 - 440 10*3/uL [facility] RBC (Bld) [#/Vol] 3.60 10*6/uL Low 4.40 - 5.9 0 10*6/uL [facility] WBC (Bld) [#/Vol] 6.7 10*3/uL 3.6 - 10.7 10*3/uL [facility] Laboratory - Chemistry and C hemistry - challengeon 02-01-2023 Glucose [Mass/Vol] 144 mg/dL High 70 - 100 mg/dL [facility] [employer] Glucose [Mass/Vol] 113 mg/dL High 70 - 100 mg/dL [facility] Glucose [Mass/Vol] 109 mg/dL High 70 - 100 mg/dL [facility] Laboratory - Chemistry and C hemistry - challengeOrdered By: Maude Rose on 02-01-2023 Base excess Calc (Bld) [Moles/Vol] 7.6 mmol/L High -3.0 - 3.0 mmol/L [facility] CO2 (Bld) [Partial pressure] 54.7 mm[Hg] High - PINF [facility] [employer] CO2 [Moles/Vol] 35.2 mmol/L High 23.0 - 27.0 mmol/L [facility] HCO3 (Bld) [Moles/Vol] 33.5 mmol/L High 21.0 - 25.0 mmol/L [facility] Oxygen (Bld) [Partial pressure] 62.9 mm[Hg] Low [facility] pH (Bld) 7.405 [pH] 7.350 - 7.450 [facility] Laboratory - Hematology and Cell countsOrdered By: Maude Rose on 02-01-2023 Hemoglobin (Bld) [Mass/Vol] 10.2 g/dL Screen Only [facility] Laboratory - Microbiology an d Antimicrobial susceptibilityon 02-01-2023 Bacteria identified Cx Nom (Bld) No growth at 5 days [facility] No Panel Informationon 02-01 Interpretation and review of laboratory results Abnormal [facility] Interpretation and review of laboratory results Abnormal [facility] Interpretation and review of laboratory results Abnormal [facility] No Panel InformationOrdered By: Maude Rose on 02-01-2023 Interpretation and review of laboratory results Abnormal [facility] Source Of Oxygen ETT [facility] Progress Noteon 02-01-2023 Progress [facility] Normal [facility] Progress Note Normal [facility] Progress Note PEEP increased to 8 per hospital policy Normal [facility] Progress Note Normal [facility] XR CHEST 1 VIEWon 02-01-2023 XR CHEST 1 VIEW Normal [facility] XR Chest Single viewon 02-01 [facility] Radiology Study observation (narrative) [facility] XR Chest Single viewOrdered By: Kelton Cote on 02-01-2023 [facility] Work Phone: BASIC METABOLIC PANELon 01-13 Anion gap [Moles/Vol] 7 mmol/L Normal 3-13 [facility] Comment on above: Performed By: #### L [id number] ####[employer] Officer: FINN BONNER ([id number])[facility] ([facility] Calcium [Mass/Vol] 9.2 mg/dL Normal 8.4-10.4 [facility] Comment on above: Performed By: #### L [id number] ####[employer] Officer: FINN BONNER ([phone])[facility] ([facility])[address] [place] [address] Chloride [Moles/Vol] 97 mmol/L Low 98-107 [facility] Comment on above: Performed By: #### L [id number] ####[employer] Officer: FINN BONNER ([phone])[facility] [place] [address] CO2 [Moles/Vol] 33 mmol/L High 22-30 [facility] Comment on above: Performed By: #### L [id number] ####[employer] Officer: FINN BONNER ([phone])[facility] ([facility])[address] [place] [address] Creatinine [Mass/Vol] 0.98 mg/dL Normal 0.66-1.25 [facility] Comment on above: Performed By: #### L [id number] ####[employer] Officer: FINN BONNER ([phone])[facility] ([facility])[address] [place] [address] GLOMERULAR FILTRATION RATE ML/MIN/1.73 SQ M.PREDICTED >90.0 Normal >60.0 [facility] Comment on above: Result Comment: Calc ulation based on the Chronic Kidney Disease Epidemiology Collaboration (CKD-EPI) equation refit without adjustment for race Performed By: #### L [id number] ####[employer] Officer: FINN BONNER ([id number])[facility] [place] [address] [place] Glucose [Mass/Vol] 113 mg/dL High 70-100 [facility] Comment on above: Performed By: #### L [id number] ####[employer] Officer: FINN BONNER ([id number])[facility] ([facility])[address] [place] [address] Potassium [Moles/Vol] 4.6 mmol/L Normal 3.5-5.1 [facility] Comment on above: Performed By: #### L [id number] ####[employer] Officer: FINN BONNER ([phone])[facility])[address] [place] [address] Sodium [Moles/Vol] 137 mmol/L Normal 135-145 [facility] Comment on above: Performed By: #### L [id number] ####[employer] Officer: FINN BONNER ([id number])[facility] ([facility])[address] [place] [address] Urea nitrogen [Mass/Vol] 37 mg/dL High 9-20 [facility] Comment on above: Performed By: #### L AB15 ####[employer] Officer: FINN BONNER ([phone])[facility])[address] [place] [address] BLOOD GAS ARTERIALon 023 Base excess Calc (Bld) [Moles/Vol] 7.0 mmol/L High -3.0-3.0 [facility] Comment on above: Performed By: #### L [id number] ####[employer] Officer: FINN BONNER ([id number])[facility] ([facility])[address] [place] [address] CO2 [Moles/Vol] 36.0 mmol/L High 23.0-27.0 [facility] Comment on above: Performed By: #### L [id number] ####[employer] Officer: FINN BONNER ([phone])[facility] ([facility])[address] [place] [address] HCO3 (Bld) [Moles/Vol] 34.0 mmol/L High 21.0-25.0 [facility] Comment on above: Performed By: #### L [id number] ####[employer] Officer: FINN BONNER ([phone])[facility])[address] [place] [address] Hemoglobin (Bld) [Mass/Vol] 10.1 g/dL Normal Screen Only [facility] Comment on above: Performed By: #### L [id number] ####[employer] Officer: FINN [id number])[facility] [place] [address] OXYGEN SATURATION (%) IN ARTERIAL BLOOD 91.9 % Low 95.0-100.0 [facility] Comment on above: Performed By: #### L [id number] ####[employer] Officer: FINN BONNER ([id number])[facility] ([facility])[address] [place] [address] PCO2 ARTERIAL 62.8 mm Hg High >35.0-<45.0 [facility] Comment on above: Performed By: #### L [id number] ####[employer] Defense Officer: FINN BONNER ([id number])[facility] ([facility])[address] [place] [address] PH ARTERIAL 7.352 Normal 7.350-7.450 [facility] Comment on above: Performed By: #### L [id number] ####[employer] Officer: FINN BONNER ([phone])[facility] ([facility])[address] [place] [address] PO2 ARTERIAL 70.7 mm Hg Low 80.0-100.0 [facility] Comment on above: Performed By: #### L [id number] ####[employer] Officer: FINN BONNER ([phone])[facility])[address] [place] [address] SOURCE OF OXYGEN Vent Normal [facility] Comment on above: Performed By: #### L [id number] ####[employer] Officer: FINN BONNER ([phone])[facility] ([facility])[address] [place] [address] Basic metabolic 1998 panelon 01-31-2023 Anion gap [Moles/Vol] 7 mmol/L 3 - 13 mmol/L [facility] Calcium [Mass/Vol] 9.2 mg/dL 8.4 - 10. 4 mg/dL [facility] Chloride [Moles/Vol] 97 mmol/L Low 98 - 10 7 mmol/L [facility] CO2 [Moles/Vol] 33 mmol/L High 22 - 30 mmol/L [facility] Creatinine [Mass/Vol] 0.98 mg/dL 0.66 - 1.25 mg/dL [facility] GFR/1.73 sq M.predicted MDRD (S/P/Bld) [Vol rate/Area] - PINF [facility] Glucose [Mass/Vol] 113 mg/dL High 70 - 100 mg/dL [facility] Interpretation and review of laboratory results Abnormal [facility] Potassium [Moles/Vol] 4.6 mmol/L 3.5 - 5.1 mmol/L [facility] Sodium [Moles/Vol] 137 mmol/L 135 - 145 mmol/L [facility] Urea nitrogen [Mass/Vol] 37 mg/dL High 9 - 20 mg/dL [facility] CARECOORDon 01-31-2023 CARECOORD Normal [facility] CBC (HEMOGRAM)on 01-31-2023 Erythrocyte distribution width (RBC) [Ratio] 18.0 % High 11.5-14.5 [facility] Comment on above: Performed By: #### L [id number] ####[employer] Officer: FINN BONNER ([phone])[address] ERYTHROCYTE MEAN CORPUSCULAR HEMOGLOBIN CONCENTRATION (G/DL) BY AUTOMATED 31.8 % Low 32.0-36.0 [facility] Comment on above: Performed By: #### L [id number] ####[employer] Officer: FINN BONNER ([phone])[address] Hematocrit (Bld) [Volume fraction] 28.3 % Low 40.0-52.0 [facility] Comment on above: Performed By: #### L [id number] ####[employer] Officer: FINN BONNER ([phone])[facility])[address] [place] [address] Hemoglobin (Bld) [Mass/Vol] 9.0 g/dL Low 13.0-18.0 [facility] Comment on above: Performed By: #### L [id number] ####[employer] Officer: FINN BONNER ([phone])[facility])[address] [place] [address] MCH (RBC) [Entitic mass] 26.1 pg Normal 26.0-34.0 [facility] Comment on above: Performed By: #### L [id number] ####[employer] Officer: FINN BONNER ([phone])[facility])[address] [place] [address] MCV (RBC) [Entitic vol] 82.1 fL Normal 80.0-98.0 [facility] Comment on above: Performed By: #### L [id number] ####[employer] Officer: FINN BONNER ([phone])[facility] ([facility])[address] [place] [address] Platelet mean volume (Bld) [Entitic vol] 7.1 fL Low 7.4-12.4 [facility] Comment on above: Performed By: #### L [id number] ####[employer] Officer: FINN BONNER ([id number])[facility])[address] [place] [address] Platelets (Bld) [#/Vol] 241 10*3/uL Normal 140-440 [facility] Comment on above: Performed By: #### L [id number] ####[employer] Officer: FINN BONNER ([phone])[facility])[address] [place] [address] RBC (Bld) [#/Vol] 3.45 10*6/uL Low 4.40-5.90 [facility] Comment on above: Performed By: #### L [id number] ####[employer] Officer: FINN BONNER ([phone])[facility])[address] [place] [address] WBC (Bld) [#/Vol] 6.3 10*3/uL Normal 3.6-10.7 [facility] Comment on above: Performed By: #### L [id number] ####[employer] Officer: FINN BONNER ([phone])[facility])[address] [place] [address] CBC panel Auto (Bld)Ordered By: Doyle Mariano on 01-31-2023 Erythrocyte distribution width (RBC) [Ratio] 18.0 % High 11.5 - 14.5 % [facility] Hematocrit (Bld) [Volume fraction] 28.3 % Low 40.0 - 52.0 % [facility] Hemoglobin (Bld) [Mass/Vol] 9.0 g/dL Low 13.0 - 18.0 g/dL [facility] Interpretation and review of laboratory results Abnormal [facility] MCH (RBC) [Entitic mass] 26.1 pg 26.0 - 34.0 pg [facility] MCHC (RBC) [Mass/Vol] 31.8 % Low 32.0 - 36.0 % [facility] MCV (RBC) [Entitic vol] 82.1 fL 80.0 - 98.0 fL [facility] Platelet mean volume (Bld) [Entitic vol] 7.1 fL Low 7.4 - 12.4 fL [facility] Platelets (Bld) [#/Vol] 241 10*3/uL 140 - 440 10*3/uL [facility] RBC (Bld) [#/Vol] 3.45 10*6/uL Low 4.40 - 5.9 0 10*6/uL [facility] WBC (Bld) [#/Vol] 6.3 10*3/uL 3.6 - 10.7 10*3/uL [facility] Laboratory - Chemistry and C hemistry - challengeon 01-31-2023 Glucose [Mass/Vol] 170 mg/dL High 70 - 100 mg/dL [facility] Glucose [Mass/Vol] 160 mg/dL High 70 - 100 mg/dL [facility] Glucose [Mass/Vol] 107 mg/dL High 70 - 100 mg/dL [facility] Base excess Calc (Bld) [Moles/Vol] 7.6 mmol/L High -3.0 - 3.0 mmol/L [facility] CO2 (Bld) [Partial pressure] 53.2 mm[Hg] High [facility] HCO3 (Bld) [Moles/Vol] 33.7 mmol/L High 21.0 - 25.0 mmol/L [facility] Oxygen (Bld) [Partial pressure] 87.1 mm[Hg] [facility] pH (Bld) 7.409 [pH] 7.350 - 7.450 pH [facility] Potassium [Moles/Vol] 4.6 mmol/L 3.5 - 5.1 mmol/L [facility] Sodium [Moles/Vol] 139 mmol/L 133 - 145 mmol/L [facility] Glucose [Mass/Vol] 118 mg/dL High 70 - 100 mg/dL [facility] Laboratory - Chemistry and C hemistry - challengeOrdered By: Rosario Ordaz on 01-31-2023 Base excess Calc (Bld) [Moles/Vol] 7.0 mmol/L High -3.0 - 3.0 mmol/L [facility] CO2 (Bld) [Partial pressure] 62.8 mm[Hg] High - PINF [facility] CO2 [Moles/Vol] 36.0 mmol/L High 23.0 - 27.0 mmol/L [facility] HCO3 (Bld) [Moles/Vol] 34.0 mmol/L High 21.0 - 25.0 mmol/L [facility] Oxygen (Bld) [Partial pressure] 70.7 mm[Hg] Low [facility] pH (Bld) 7.352 [pH] 7.350 - 7.450 [facility] Laboratory - Hematology and Cell countsOrdered By: Rosario Ordaz on 01-31-2023 Hemoglobin (Bld) [Mass/Vol] 10.1 g/dL Screen Only [facility] Laboratory - Hematology and Cell countson 01-31-2023 Hematocrit (BldV) [Volume fraction] 35 % Low 37 - 52 % [facility] No Panel Informationon 01-31 Interpretation and review of laboratory results Abnormal [facility] Interpretation and review of laboratory results Abnormal [facility] Interpretation and review of laboratory results Abnormal [facility] [id number] [facility] Interpretation and review of laboratory results Abnormal [facility] Interpretation and review of laboratory results Abnormal [facility] No Panel InformationOrdered By: Rosario Ordaz on 01-31-2023 Interpretation and review of laboratory results Abnormal [facility] Source Of Oxygen Vent [facility] Progress Noteon 01-31-[address] [facility] Progress Note Normal [facility] Progress Note Normal [facility] Progress Note Normal [facility] XR CHEST 1 VIEWon 01-31-2023 XR CHEST 1 VIEW Normal [facility] XR Chest Single viewon 01-31 [facility] Radiology Study observation (narrative) [facility] BASIC METABOLIC PANELon 01-12 Anion gap [Moles/Vol] 6 mmol/L Normal 3-13 [facility] Comment on above: Performed By: #### L [id number] ####[employer] Officer: FINN BONNER ([phone])[facility] ([facility])[address] [place] [address] Calcium [Mass/Vol] 8.5 mg/dL Normal 8.4-10.4 [facility] Comment on above: Performed By: #### L [id number] ####[employer] Officer: FINN BONNER ([phone])[facility] ([facility])[address] [place] [address] Chloride [Moles/Vol] 97 mmol/L Low 98-107 [facility] Comment on above: Performed By: #### L AB15 ####[employer] Officer: FINN BONNER ([phone])[facility] ([facility])[address] [place] [address] CO2 [Moles/Vol] 35 mmol/L High 22-30 [facility] Comment on above: Performed By: #### L AB15 ####[employer] Officer: FINN BONNER ([phone])[facility] ([facility])[address] [place] [address] Creatinine [Mass/Vol] 0.84 mg/dL Normal 0.66-1.25 [facility] Comment on above: Performed By: #### L AB15 ####[employer] Officer: FINN BONNER ([phone])[facility])[address] [place] [address] GLOMERULAR FILTRATION RATE ML/MIN/1.73 SQ M.PREDICTED >90.0 Normal >60.0 [facility] Comment on above: Result Comment: Calc ulation based on the Chronic Kidney Disease Epidemiology Collaboration (CKD-EPI) equation refit without adjustment for race Performed By: #### L AB15 ####[employer] Officer: FINN BONNER ([id number])[facility] ([facility])[address] [place] [address] Glucose [Mass/Vol] 95 mg/dL Normal 70-100 [facility] Comment on above: Performed By: #### L AB15 ####[employer] Officer: FINN BONNER ([phone])[facility] ([facility])[address] [place] [address] Potassium [Moles/Vol] 5.1 mmol/L Normal 3.5-5.1 [facility] Comment on above: Performed By: #### L [id number] ####[employer] Officer: FINN BONNER ([phone])[facility])[address] [place] [address] Sodium [Moles/Vol] 138 mmol/L Normal 135-145 [facility] Comment on above: Performed By: #### L AB15 ####[employer] Officer: FINN BONNER ([phone])[facility] ([facility])[address] [place] [address] Urea nitrogen [Mass/Vol] 28 mg/dL High 9-20 [facility] Comment on above: Performed By: #### L AB15 ####[employer] Officer: FINN BONNER ([phone])[facility] ([facility])[address] [place] [address] BLOOD GAS ARTERIALon -- 023 Base excess Calc (Bld) [Moles/Vol] 6.1 mmol/L High -3.0-3.0 [facility] Comment on above: Performed By: #### L [id number] ####[employer] Officer: FINN BONNER ([phone])[facility] ([facility])[address] [place] [address] [place] CO2 [Moles/Vol] 35.0 mmol/L High 23.0-27.0 [facility] Comment on above: Performed By: #### L [id number] ####[employer] Officer: FINN BONNER ([phone])[facility] ([facility])[address] [place] [address] HCO3 (Bld) [Moles/Vol] 33.1 mmol/L High 21.0-25.0 [facility] Comment on above: Performed By: #### L [id number] ####[employer] Officer: FINN BONNER ([phone])[facility])[address] [place] [address] Hemoglobin (Bld) [Mass/Vol] 10.1 g/dL Normal Screen Only [facility] [facility] Comment on above: Performed By: #### L [id number] ####[employer] Defense Officer: FINN BONNER ([phone])[facility])[address] [place] [address] OXYGEN SATURATION (%) IN ARTERIAL BLOOD 95.6 % Normal 95.0-100.0 [facility] Comment on above: Performed By: #### L [id number] ####[employer] Officer: FINN BONNER ([phone])[facility] ([facility])[address] [place] [address] PCO2 ARTERIAL 61.7 mm Hg High >35.0-<45.0 [facility] Comment on above: Performed By: #### L [id number] ####[employer] Air Defense Officer: FINN BONNER ([phone])[facility])[address] [place] [address] PH ARTERIAL 7.347 Low 7.350-7.450 [facility] Comment on above: Performed By: #### L [id number] ####[employer] Officer: FINN BONNER ([phone])[facility])[address] [place] [address] PO2 ARTERIAL 81.0 mm Hg Normal 80.0-100.0 [facility] Comment on above: Performed By: #### L [id number] ####[employer] Officer: FINN BONNER ([phone])[facility])[address] [place] [address] SOURCE OF OXYGEN Vent Normal [facility] Comment on above: Result Comment: FiO2 60% Performed By: #### L [id number] ####[employer] Defense Officer: FINN BONNER ([phone])[facility] ([facility])[address] [place] [address] Base excess Calc (Bld) [Moles/Vol] 3.4 mmol/L High -3.0-3.0 [facility] Comment on above: Performed By: #### L [id number] ####[employer] Officer: FINN BONNER ([phone])[facility] ([facility])[address] [place] [address] CO2 [Moles/Vol] 37.4 mmol/L High 23.0-27.0 [facility] Comment on above: Performed By: #### L [id number] ####[employer] Officer: FINN BONNER ([phone])[facility])[address] [place] [address] HCO3 (Bld) [Moles/Vol] 34.4 mmol/L High 21.0-25.0 [facility] Comment on above: Performed By: #### L [id number] ####[employer] Officer: FINN BONNER ([phone])[facility] ([facility])[address] [place] [address] Hemoglobin (Bld) [Mass/Vol] 11.3 g/dL Normal Screen Only [facility] Comment on above: Performed By: #### L [id number] ####[employer] Defense Officer: FINN BONNER ([phone])[facility])[address] [place] [address] OXYGEN SATURATION (%) IN ARTERIAL BLOOD 93.4 % Low 95.0-100.0 [facility] Comment on above: Performed By: #### L [id number] ####[employer] Defense Officer: FINN BONNER ([phone])[facility])[address] [place] [address] PCO2 ARTERIAL 97.6 mm Hg Critically high >35.0-<45.0 [facility] Comment on above: Performed By: #### L [id number] ####[employer] Defense Officer: FINN BONNER ([phone])[facility])[address] [place] [address] PH ARTERIAL 7.165 Critically low 7.350-7.450 [facility] Comment on above: Performed By: #### L [id number] ####[employer] Alt[employer] Air Defense Officer: FINN BONNER ([phone])[facility] ([facility])[address] [place] [address] PO2 ARTERIAL 86.5 mm Hg Normal 80.0-100.0 [facility] Comment on above: Performed By: #### L [id number] ####[employer] Alt[employer] Air Defense Officer: FINN BNONER ([phone])[facility] ([facility])[address] [place] [address] SOURCE OF OXYGEN Vent Normal [facility] Comment on above: Result Comment: 50% FiO2 Performed By: #### L [id number] ####[employer] Alt[employer] Air Defense Officer: FINN BONNER ([phone])[facility] ([facility])[address] [place] [address] Base excess Calc (Bld) [Moles/Vol] 5.0 mmol/L High -3.0-3.0 [facility] Comment on above: Order Comment: 30 mi n after vent changes Performed By: #### L [id number] ####[employer] Alt[employer] Air Defense Officer: FINN BONNER ([phone])[facility] ([facility])[address] [place] [address] CO2 [Moles/Vol] 35.7 mmol/L High 23.0-27.0 [facility] Comment on above: Order Comment: 30 mi n after vent changes Performed By: #### L [id number] ####[employer] Alt[employer] Air Defense Officer: FINN BONNER ([phone])[facility] ([facility])[address] [place] [address] HCO3 (Bld) [Moles/Vol] 33.4 mmol/L High 21.0-25.0 [facility] Comment on above: Order Comment: 30 mi n after vent changes Performed By: #### L [id number] ####[employer] Defense Officer: FINN BONNER ([phone])[facility])[address] [place] [address] Hemoglobin (Bld) [Mass/Vol] 10.3 g/dL Normal Screen Only [facility] Comment on above: Order Comment: 30 mi n after vent changes Performed By: #### L [id number] ####[employer] Alt[employer] Air Defense Officer: FINN BONNER ([phone])[facility] ([facility])[address] [place] [address] OXYGEN SATURATION (%) IN ARTERIAL BLOOD 98.3 % Normal 95.0-100.0 [facility] Comment on above: Order Comment: 30 mi n after vent changes Performed By: #### L [id number] ####[employer] Alt[employer] Air Defense Officer: FINN BONNER ([phone])[facility] ([facility])[address] [place] [address] PCO2 ARTERIAL 73.6 mm Hg High >35.0-<45.0 [facility] Comment on above: Order Comment: 30 mi n after vent changes Performed By: #### L [id number] ####[employer] Alt[employer] Air Defense Officer: FINN BONNER ([phone])[facility] ([facility])[address] [place] [address] PH ARTERIAL 7.275 Low 7.350-7.450 [facility] Comment on above: Order Comment: 30 mi n after vent changes Performed By: #### L [id number] ####[employer] Alt[employer] Air Defense Officer: FINN BONNER ([phone])[facility] ([facility])[address] [place] [address] PO2 ARTERIAL 137.5 mm Hg High 80.0-100.0 [facility] Comment on above: Order Comment: 30 mi n after vent changes Performed By: #### L [id number] ####[employer] Alt[employer] Air Defense Officer: FINN BONNER ([phone])[facility] ([facility])[address] [place] [address] SOURCE OF OXYGEN Vent Normal [facility] Comment on above: Order Comment: 30 mi n after vent changes Result Comment: 80% FiO2 Performed By: #### L [id number] ####[employer] Alt[employer] Air Defense Officer: FINN BONNER ([phone])[facility] ([facility])[address] [place] [address] Base excess Calc (Bld) [Moles/Vol] 3.4 mmol/L High -3.0-3.0 [facility] Comment on above: Performed By: #### L [id number] ####[employer] Defense Officer: FINN BONNER ([phone])[facility])[address] [place] [address] CO2 [Moles/Vol] 35.8 mmol/L High 23.0-27.0 [facility] Comment on above: Performed By: #### L [id number] ####[employer] Alt[employer] Air Defense Officer: FINN BONNER ([phone])[facility])[address] [place] [address] HCO3 (Bld) [Moles/Vol] 33.2 mmol/L High 21.0-25.0 [facility] Comment on above: Performed By: #### L [id number] ####[employer] Alt[employer] Defense Officer: FINN BONNER ([phone])[facility])[address] [place] [address] Hemoglobin (Bld) [Mass/Vol] 10.3 g/dL Normal Screen Only [facility] Comment on above: Performed By: #### L [id number] ####[employer] Alt[employer] Defense Officer: FINN BONNER ([phone])[facility])[address] [place] [address] OXYGEN SATURATION (%) IN ARTERIAL BLOOD 99.1 % Normal 95.0-100.0 [facility] Comment on above: Performed By: #### L [id number] ####[employer] Alt[employer] Air Defense Officer: FINN BONNER ([phone])[facility])[address] [place] [address] PCO2 ARTERIAL 86.2 mm Hg Critically high >35.0-<45.0 [facility] Comment on above: Performed By: #### L [id number] ####[employer] Alt[employer] Air Defense Officer: FINN BONNER ([phone])[facility])[address] [place] [address] PH ARTERIAL 7.203 Low 7.350-7.450 [facility] Comment on above: Performed By: #### L [id number] ####[employer] Alt[employer] Air Defense Officer: FINN BONNER ([phone])[facility] [place] [address] PO2 ARTERIAL 282.7 mm Hg High 80.0-100.0 [facility] Comment on above: Performed By: #### L [id number] ####[employer] Alt[employer] Air Defense Officer: FINN BONNER ([phone])[facility] ([facility])[address] [place] [address] SOURCE OF OXYGEN Vent Normal [facility] Comment on above: Performed By: #### L [id number] ####[employer] Alt[employer] Air Defense Officer: FINN BONNER ([phone])[facility] ([facility])[address] [place] [address] Basic metabolic 1998 panelon 01-30-2023 Anion gap [Moles/Vol] 6 mmol/L 3 - 13 mmol/L [facility] Calcium [Mass/Vol] 8.5 mg/dL 8.4 - 10. 4 mg/dL [facility] Chloride [Moles/Vol] 97 mmol/L Low 98 - 10 7 mmol/L [facility] CO2 [Moles/Vol] 35 mmol/L High 22 - 30 mmol/L [facility] Creatinine [Mass/Vol] 0.84 mg/dL 0.66 - 1.25 mg/dL [facility] GFR/1.73 sq M.predicted MDRD (S/P/Bld) [Vol rate/Area] - PINF [facility] Glucose [Mass/Vol] 95 mg/dL 70 - 100 mg/dL [facility] Interpretation and review of laboratory results Abnormal [facility] Potassium [Moles/Vol] 5.1 mmol/L 3.5 - 5.1 mmol/L [facility] Sodium [Moles/Vol] 138 mmol/L 135 - 145 mmol/L [facility] Urea nitrogen [Mass/Vol] 28 mg/dL High 9 - 20 mg/dL [facility] CBC (HEMOGRAM)on 01-30-2023 Erythrocyte distribution width (RBC) [Ratio] 18.3 % High 11.5-14.5 [facility] Comment on above: Performed By: #### L [id number] ####[employer] Alt[employer] Air Defense Officer: FINN BONNER ([phone])[facility] [address] ERYTHROCYTE MEAN CORPUSCULAR HEMOGLOBIN CONCENTRATION (G/DL) BY AUTOMATED 32.0 % Normal 32.0-36.0 [facility] Comment on above: Performed By: #### L [id number] ####Low Alt[employer] Air Defense Officer: FINN BONNER ([phone])[facility])[address] [place] [address] Hematocrit (Bld) [Volume fraction] 30.0 % Low 40.0-52.0 [facility] Comment on above: Performed By: #### L [id number] ####[employer] Alt[employer] Air Defense Officer: FINN BONNER ([phone])[facility])[address] [place] [address] Hemoglobin (Bld) [Mass/Vol] 9.6 g/dL Low 13.0-18.0 [facility] Comment on above: Performed By: #### L [id number] ####Low Alt[employer] Air Defense Officer: FINN BONNER ([phone])[facility] ([facility])[address] [place] [address] MCH (RBC) [Entitic mass] 26.4 pg Normal 26.0-34.0 [facility] Comment on above: Performed By: #### L [id number] ####Low Alt[employer] Air Defense Officer: FINN BONNER ([phone])[facility])[address] [place] [address] MCV (RBC) [Entitic vol] 82.5 fL Normal 80.0-98.0 [facility] Comment on above: Performed By: #### L [id number] ####[employer] Alt[employer] Air Defense Officer: FINN BONNER ([phone])[facility])[address] [place] [address] Platelet mean volume (Bld) [Entitic vol] 7.4 fL Normal 7.4-12.4 [facility] Comment on above: Performed By: #### L [id number] ####Low Alt[employer] Air Defense Officer: FINN BONNER ([phone])[facility])[address] [place] [address] [place] Platelets (Bld) [#/Vol] 261 10*3/uL Normal 140-440 [facility] Comment on above: Performed By: #### L [id number] ####Low Alt[employer] Air Defense Officer: FINN BONNER ([phone])[facility])[address] [place] [address] RBC (Bld) [#/Vol] 3.63 10*6/uL Low 4.40-5.90 [facility] Comment on above: Performed By: #### L [id number] ####Low Alt[employer] Air Defense Officer: FINN BONNER ([phone])[facility] ([facility])[address] [place] [address] WBC (Bld) [#/Vol] 8.0 10*3/uL Normal 3.6-10.7 [facility] Comment on above: Performed By: #### L [id number] ####[employer] Alt[employer] Defense Officer: FINN BONNER ([phone])[facility] ([facility])[address] [place] [address] CBC panel Auto (Bld)Ordered By: Walter Cardoso on 01-30-2023 Erythrocyte distribution width (RBC) [Ratio] 18.3 % High 11.5 - 14.5 % [facility] Hematocrit (Bld) [Volume fraction] 30.0 % Low 40.0 - 52.0 % [facility] Hemoglobin (Bld) [Mass/Vol] 9.6 g/dL Low 13.0 - 18.0 g/dL [facility] Interpretation and review of laboratory results Abnormal [facility] MCH (RBC) [Entitic mass] 26.4 pg 26.0 - 34.0 pg [facility] MCHC (RBC) [Mass/Vol] 32.0 % 32.0 - 36.0 % [facility] MCV (RBC) [Entitic vol] 82.5 fL 80.0 - 98.0 fL [facility] Platelet mean volume (Bld) [Entitic vol] 7.4 fL 7.4 - 12.4 fL [facility] Platelets (Bld) [#/Vol] 261 10*3/uL 140 - 440 10*3/uL [facility] RBC (Bld) [#/Vol] 3.63 10*6/uL Low 4.40 - 5.9 0 10*6/uL [facility] WBC (Bld) [#/Vol] 8.0 10*3/uL 3.6 - 10.7 10*3/uL [facility] Consulton 01-30-2023 Consult Normal [facility] Consult Normal [facility] Laboratory - Chemistry and C hemistry - challengeon 01-30-2023 Glucose [Mass/Vol] 122 mg/dL High 70 - 100 mg/dL [facility] Base excess Calc (Bld) [Moles/Vol] 3.4 mmol/L High -3.0 - 3.0 mmol/L [facility] CO2 (Bld) [Partial pressure] 97.6 mm[Hg] Critically high - PINF [facility] CO2 [Moles/Vol] 37.4 mmol/L High 23.0 - 27.0 mmol/L [facility] HCO3 (Bld) [Moles/Vol] 34.4 mmol/L High 21.0 - 25.0 mmol/L [facility] Oxygen (Bld) [Partial pressure] 86.5 mm[Hg] [facility] pH (Bld) 7.165 [pH] Critically low 7.350 - 7.450 [facility] Glucose [Mass/Vol] 103 mg/dL High 70 - 100 mg/dL [facility] Glucose [Mass/Vol] 83 mg/dL 70 - 100 mg/dL [facility] Base excess Calc (Bld) [Moles/Vol] 3.4 mmol/L High -3.0 - 3.0 mmol/L [facility] CO2 (Bld) [Partial pressure] 86.2 mm[Hg] Critically high - PINF [facility] CO2 [Moles/Vol] 35.8 mmol/L High 23.0 - 27.0 mmol/L [facility] HCO3 (Bld) [Moles/Vol] 33.2 mmol/L High 21.0 - 25.0 mmol/L [facility] Oxygen (Bld) [Partial pressure] 282.7 mm[Hg] High [facility] pH (Bld) 7.203 [pH] Low 7.350 - 7.450 [facility] Glucose [Mass/Vol] 92 mg/dL 70 - 100 mg/dL [facility] Laboratory - Chemistry and C hemistry - challengeOrdered By: Stefanie Wilkerson on 01-30-2023 Base excess Calc (Bld) [Moles/Vol] 6.1 mmol/L High -3.0 - 3.0 mmol/L [facility] CO2 (Bld) [Partial pressure] 61.7 mm[Hg] High - PINF [facility] CO2 [Moles/Vol] 35.0 mmol/L High 23.0 - 27.0 mmol/L [facility] HCO3 (Bld) [Moles/Vol] 33.1 mmol/L High 21.0 - 25.0 mmol/L [facility] Oxygen (Bld) [Partial pressure] 81.0 mm[Hg] [facility] pH (Bld) 7.347 [pH] Low 7.350 - 7.450 [facility] Laboratory - Chemistry and C hemistry - challengeOrdered By: Evan Benson on 01-30-2023 Base excess Calc (Bld) [Moles/Vol] 5.0 mmol/L High -3.0 - 3.0 mmol/L [facility] CO2 (Bld) [Partial pressure] 73.6 mm[Hg] High - PINF [facility] CO2 [Moles/Vol] 35.7 mmol/L High 23.0 - 27.0 mmol/L [facility] HCO3 (Bld) [Moles/Vol] 33.4 mmol/L High 21.0 - 25.0 mmol/L [facility] Oxygen (Bld) [Partial pressure] 137.5 mm[Hg] High [facility] pH (Bld) 7.275 [pH] Low 7.350 - 7.450 [facility] Laboratory - Hematology and Cell countsOrdered By: Stefanie Wilkerson on 01-30-2023 Hemoglobin (Bld) [Mass/Vol] 10.1 g/dL Screen Only [facility] - Hematology and Cell countson 01-30-2023 Hemoglobin (Bld) [Mass/Vol] 11.3 g/dL Screen Only [facility] Hemoglobin (Bld) [Mass/Vol] 10.3 g/dL Screen Only [facility] - Hematology and Cell countsOrdered By: Evan Benson on 01-30-2023 Hemoglobin (Bld) [Mass/Vol] 10.3 g/dL Screen Only [facility] No Panel Informationon 01-30 Interpretation and review of laboratory results Abnormal [facility] Interpretation and review of laboratory results Abnormal [facility] Source Of Oxygen Vent [facility] Interpretation and review of laboratory results Abnormal [facility] Interpretation and review of laboratory results Normal [facility] Interpretation and review of laboratory results Abnormal [facility] Source Of Oxygen Vent [facility] Interpretation and review of laboratory results Normal [facility] No Panel InformationOrdered By: Stefanie Wilkerson on 01-30-2023 Interpretation and review of laboratory results Abnormal [facility] Source Of Oxygen Vent [facility] No Panel InformationOrdered By: Evan Benson on 01-30-2023 Interpretation and review of laboratory results Abnormal [facility] Source Of Oxygen Vent [facility] Progress Noteon 01-30-2023 Progress Note Normal [facility] Progress Note Normal [facility] Progress Note Speech-Language Pathology Patient transferred from [place] and is now intubated. Completed speech therapy orders and await re-consult 12 - 24 hours post extubation. Candice Driver MS, CCC/MANAGER LEARNING Normal [facility] Progress Note Normal [facility] Progress Note 01/30/23 0339 Wean Screen SpO2>/=88% Yes [id number] HR <140 BPM Yes RR MAP >/= 65mmHg Yes Arterial pH >7.30 and <7.50 Yes Safety Screen Spontaneous Breathing Trial (SBT) FiO2 is greater than 50% Normal [facility] XR Abdomen Single viewon [facility] [place] [facility] RAD[facility] Radiology Study observation (narrative) [facility] XR CHEST 1 VIEWon 01-30-2023 XR CHEST 1 VIEW Normal [facility] XR CHEST 1 VIEW Normal [facility] XR Chest Single viewon 01-30 [facility] Radiology Study observation (narrative) On license of [facility] [place] [facility] RADIOLOGY [facility] Radiology Study observation (narrative) [facility] XR Chest Single viewOrdered By: Jethro Singer on 01-30-2023 [facility] [employer] Work Phone: BLOOD GAS ARTERIALon 023 Base excess Calc (Bld) [Moles/Vol] 1.4 mmol/L Normal -3.0-3.0 [facility] Comment on above: Performed By: #### L [id number] ####[employer] Defense Officer: FINN BONNER ([phone])[facility] ([facility])[address] [place] [address] CO2 [Moles/Vol] 30.4 mmol/L High 23.0-27.0 [facility] Comment on above: Performed By: #### L [id number] ####[employer] Alt[employer] Air Defense Officer: FINN BONNER ([phone])[facility] ([facility])[address] [place] [address] HCO3 (Bld) [Moles/Vol] 28.6 mmol/L High 21.0-25.0 [facility] Comment on above: Performed By: #### L [id number] ####[employer] Alt[employer] Defense Officer: FINN BONNER ([phone])[facility] ([facility])[address] [place] [address] Hemoglobin (Bld) [Mass/Vol] 10.9 g/dL Normal Screen Only [facility] Comment on above: Performed By: #### L [id number] ####[employer] Defense Officer: FINN BONNER ([phone])[facility] ([facility])[address] [place] [address] OXYGEN SATURATION (%) IN ARTERIAL BLOOD 97.5 % Normal 95.0-100.0 [facility] Comment on above: Performed By: #### L [id number] ####[employer] Defense Officer: FINN BONNER ([phone])[facility] ([facility])[address] [place] [address] PCO2 ARTERIAL 58.4 mm Hg High >35.0-<45.0 [facility] Comment on above: Performed By: #### L [id number] ####[employer] Alt[employer] Air Defense Officer: FINN BONNER ([phone])[facility] ([facility])[address] [place] [address] PH ARTERIAL 7.308 Low 7.350-7.450 [facility] Comment on above: Performed By: #### L [id number] ####[employer] Defense Officer: FINN BONNER ([phone])[facility] ([facility])[address] [place] [address] PO2 ARTERIAL 114.7 mm Hg High 80.0-100.0 [facility] Comment on above: Performed By: #### L [id number] ####[employer] Defense Officer: FINN BONNER ([phone])[facility] ([facility])[address] [place] [address] SOURCE OF OXYGEN 50% Oxygen Normal [facility] System [facility] Comment on above: Result Comment: vent Performed By: #### L [id number] ####[employer] Defense Officer: FINN BONNER ([phone])[facility] ([facility])[address] [place] [address] CBC W Auto Differential pane l (Bld)Ordered By: Jerica Mendoza on 01-29-2023 Basophils (Bld) [#/Vol] 0.0 10*3/uL 0.0 - 0.2 10*3/uL [employer] Basophils/100 WBC (Bld) 0.3 % 0.0 - 2.0 % [facility] Eosinophils (Bld) [#/Vol] 0.0 10*3/uL 0.0 - 0.5 10*3/uL [facility] Eosinophils/100 WBC (Bld) 0.0 % Low 1.0 - 6.0 % [facility] [employer] Erythrocyte distribution width (RBC) [Ratio] 18.5 % High 11.5 - 14.5 % [facility] [employer] Hematocrit (Bld) [Volume fraction] 32.8 % Low 40.0 - 52.0 % [facility] [employer] Hemoglobin (Bld) [Mass/Vol] 10.3 g/dL Low 13.0 - 18.0 g/dL [facility] [employer] Interpretation and review of laboratory results Abnormal [facility] [employer] Lymphocytes (Bld) [#/Vol] 0.7 10*3/uL Low 1.0 - 4.3 10*3/uL [facility] [employer] Lymphocytes/100 WBC (Bld) 7.9 % Low 20.0 - 40.0 % [facility] [employer] Wireless MCH (RBC) [Entitic mass] 26.2 pg 26.0 - 34.0 pg [facility] MCHC (RBC) [Mass/Vol] 31.4 % Low 32.0 - 36.0 % [facility] MCV (RBC) [Entitic vol] 83.5 fL 80.0 - 98.0 fL [facility] Monocytes (Bld) [#/Vol] 0.5 10*3/uL 0.0 - 0.8 10*3/uL [facility] Monocytes/100 WBC (Bld) 6.1 % 2.0 - 10.0 % [facility] Neutrophils (Bld) [#/Vol] 7.3 10*3/uL High 1.8 - 7.0 10*3/uL [facility] Neutrophils/100 WBC (Bld) 85.7 % High 40.0 - 80.0 % [facility] Nucleated RBC/100 WBC (Bld) [Ratio] 0.0 % [facility] Platelet mean volume (Bld) [Entitic vol] 7.2 fL Low 7.4 - 12.4 fL [facility] Platelets (Bld) [#/Vol] 232 10*3/uL 140 - 440 10*3/uL [facility] RBC (Bld) [#/Vol] 3.93 10*6/uL Low 4.40 - 5.9 0 10*6/uL [facility] WBC (Bld) [#/Vol] 8.5 10*3/uL 3.6 - 10.7 10*3/uL [facility] CBC WITH AUTO DIFFERENTIALon 01-29-2023 Basophils (Bld) [#/Vol] 0.0 10*3/uL Normal 0.0-0.2 [facility] Comment on above: Performed By: #### L [id number] ####[employer] Officer: FINN BONNER ([id number])[address] Basophils/100 WBC (Bld) 0.3 % Normal 0.0-2.0 [facility] Comment on above: Performed By: #### L [id number] ####[employer] Defense Officer: FINN BONNER ([id number])[facility] ([facility])[address] [place] [address] [place] Eosinophils (Bld) [#/Vol] 0.0 10*3/uL Normal 0.0-0.5 [facility] Comment on above: Performed By: #### L [id number] ####[employer] Officer: FINN BONNER ([phone])[facility])[address] [place] [address] Eosinophils/100 WBC (Bld) 0.0 % Low 1.0-6.0 [facility] Comment on above: Performed By: #### L [id number] ####[employer] Officer: FINN BONNER ([phone])[facility])[address] [place] [address] Erythrocyte distribution width (RBC) [Ratio] 18.5 % High 11.5-14.5 [facility] Comment on above: Performed By: #### L [id number] ####[employer] Officer: FINN BONNER ([phone])[address] ERYTHROCYTE MEAN CORPUSCULAR HEMOGLOBIN CONCENTRATION (G/DL) BY AUTOMATED 31.4 % Low 32.0-36.0 [facility] Comment on above: Performed By: #### L [id number] ####[employer] Officer: FINN BONNER ([id number])[address] Hematocrit (Bld) [Volume fraction] 32.8 % Low 40.0-52.0 [facility] Comment on above: Performed By: #### L [id number] ####[employer] Officer: FINN BONNER ([phone])[facility])[address] [place] [address] Hemoglobin (Bld) [Mass/Vol] 10.3 g/dL Low 13.0-18.0 [facility] Comment on above: Performed By: #### L [id number] ####[employer] Officer: FINN BONNER ([id number])[facility])[address] [place] [address] Lymphocytes (Bld) [#/Vol] 0.7 10*3/uL Low 1.0-4.3 [facility] Comment on above: Performed By: #### L [id number] ####[employer] Officer: FINN BONNER ([phone])[facility])[address] [place] [address] Lymphocytes/100 WBC (Bld) 7.9 % Low 20.0-40.0 [facility] Comment on above: Performed By: #### L [id number] ####[employer] Officer: FINN BONNER ([id number])[facility])[address] [place] [address] MCH (RBC) [Entitic mass] 26.2 pg Normal 26.0-34.0 [facility] Comment on above: Performed By: #### L [id number] ####[employer] Officer: FINN BONNER ([phone])[facility])[address] [place] [address] MCV (RBC) [Entitic vol] 83.5 fL Normal 80.0-98.0 [facility] Comment on above: Performed By: #### L [id number] ####[employer] Officer: FINN BONNER ([phone])[facility])[address] [place] [address] Monocytes (Bld) [#/Vol] 0.5 10*3/uL Normal 0.0-0.8 [facility] Comment on above: Performed By: #### L [id number] ####[employer] Officer: FINN BONNER ([phone])[facility])[address] [place] [address] Monocytes/100 WBC (Bld) 6.1 % Normal 2.0-10.0 [facility] Comment on above: Performed By: #### L [id number] ####[employer] Defense Officer: FINN BONNER ([phone])[facility])[address] [place] [address] Neutrophils (Bld) [#/Vol] 7.3 10*3/uL High 1.8-7.0 [facility] Comment on above: Performed By: #### L [id number] ####[employer] Officer: FINN BONNER ([id number])[facility])[address] [place] [address] Neutrophils/100 WBC (Bld) 85.7 % High 40.0-80.0 [facility] Comment on above: Performed By: #### L [id number] ####[employer] Officer: FINN BONNER ([phone])[facility])[address] [place] [address] NRBC (PER 100 WBCS) BY AUTOMATED COUNT 0.0 /100 WBCs Normal 0.0-2.0 [facility] Comment on above: Performed By: #### L [id number] ####[employer] Officer: FINN BONNER ([id number])[facility])[address] [place] [address] Platelet mean volume (Bld) [Entitic vol] 7.2 fL Low 7.4-12.4 [facility] Comment on above: Performed By: #### L [id number] ####[employer] Officer: FINN BONNER ([id number])[facility])[address] [place] [address] Platelets (Bld) [#/Vol] 232 10*3/uL Normal 140-440 [facility] Comment on above: Performed By: #### L [id number] ####[employer] Officer: FINN BONNER ([id number])[facility])[address] [place] [address] RBC (Bld) [#/Vol] 3.93 10*6/uL Low 4.40-5.90 [facility] Comment on above: Performed By: #### L [id number] ####[employer] Defense Officer: FINN BONNER ([id number])[facility])[address] [place] [address] WBC (Bld) [#/Vol] 8.5 10*3/uL Normal 3.6-10.7 [facility] Comment on above: Performed By: #### L [id number] ####[employer] Alt[employer] Defense Officer: FINN BONNER ([phone])[facility] ([facility])[address] [place] [address] COMPREHENSIVE METABOLIC PANE Rafael 01-29-2023 Albumin [Mass/Vol] 4.5 g/dL Normal 3.5-5.0 [facility] Comment on above: Performed By: #### L [id number] ####[employer] Alt[employer] Defense Officer: FINN BONNER ([phone])[facility] ([facility])[address] [place] [address] ALP [Catalytic activity/Vol] 44 U/L Normal 38-126 [facility] Comment on above: Performed By: #### L [id number] ####[employer] Officer: FINN BONNER ([phone])[facility] ([facility])[address] [place] [address] ALT [Catalytic activity/Vol] 31 U/L Normal 0-49 [facility] Comment on above: Performed By: #### L [id number] ####[employer] Defense Officer: FINN BONNER ([phone])[facility] ([facility])[address] [place] [address] Anion gap [Moles/Vol] 13 mmol/L Normal 3-13 [facility] Comment on above: Performed By: #### L [id number] ####[employer] Alt[employer] Defense Officer: FINN BONNER ([phone])[facility] ([facility])[address] [place] [address] AST [Catalytic activity/Vol] 40 U/L Normal 15-46 [facility] Comment on above: Performed By: #### L [id number] ####[employer] Defense Officer: FINN BONNER ([id number])[facility] ([facility])[address] [place] [address] Bilirubin [Mass/Vol] 1.0 mg/dL Normal 0.2-1.3 [facility] Comment on above: Performed By: #### L [id number] ####[employer] Alt[employer] Air Defense Officer: FINN BONNER ([phone])[facility] ([facility])[address] [place] [address] [place] Calcium [Mass/Vol] 9.1 mg/dL Normal 8.4-10.4 [facility] Comment on above: Performed By: #### L [id number] ####[employer] Defense Officer: FINN BONNER ([id number])[facility] [place] [address] Chloride [Moles/Vol] 98 mmol/L Normal 98-107 [facility] Comment on above: Performed By: #### L [id number] ####[employer] Alt[employer] Defense Officer: FINN BONNER ([id number])[facility] [place] [address] CO2 [Moles/Vol] 27 mmol/L Normal 22-30 [facility] Comment on above: Performed By: #### L [id number] ####[employer] Alt[employer] Air Defense Officer: FINN BONNER ([phone])[facility] ([facility])[address] [place] [address] Creatinine [Mass/Vol] 0.86 mg/dL Normal 0.66-1.25 [facility] Comment on above: Performed By: #### L [id number] ####[employer] Alt[employer] Air Defense Officer: FINN BONNER ([phone])[facility] ([facility])[address] [place] [address] GLOMERULAR FILTRATION RATE ML/MIN/1.73 SQ M.PREDICTED >90.0 Normal >60.0 [facility] Comment on above: Result Comment: Calc ulation based on the Chronic Kidney Disease Epidemiology Collaboration (CKD-EPI) equation refit without adjustment for race Performed By: #### L [id number] ####[employer] Alt[employer] Air Defense Officer: FINN BONNER ([phone])[facility] [place] [address] [place] Glucose [Mass/Vol] 106 mg/dL High 70-100 [facility] Comment on above: Performed By: #### L [id number] ####[employer] Alt[employer] Air Defense Officer: FINN BONNER ([id number])[facility] [place] [address] [place] Potassium [Moles/Vol] 5.2 mmol/L High 3.5-5.1 [facility] Comment on above: Performed By: #### L [id number] ####[employer] Alt[employer] Air Defense Officer: FINN BONNER ([phone])[facility] ([facility])[address] [place] [address] Protein [Mass/Vol] 7.8 g/dL Normal 6.3-8.2 [facility] Comment on above: Performed By: #### L [id number] ####[employer] Alt[employer] Air Defense Officer: FINN BONNER ([phone])[facility] ([facility])[address] [place] [address] Sodium [Moles/Vol] 137 mmol/L Normal 135-145 [facility] Comment on above: Performed By: #### L [id number] ####[employer] Alt[employer] Air Defense Officer: FINN BONNER ([id number])[facility] ([facility])[address] [place] [address] Urea nitrogen [Mass/Vol] 26 mg/dL High 9-20 [facility] Comment on above: Performed By: #### L [id number] ####[employer] Alt[employer] Air Defense Officer: FINN BONNER ([phone])[facility] ([facility])[address] [place] [address] Albumin [Mass/Vol] 4.3 g/dL Normal 3.5-5.0 [facility] Comment on above: Performed By: #### L [id number] ####Low Altitude Air Defense Officer: LIDIA NEIL ([id number])[facility] ([facility])[address] [place] [address] ALP [Catalytic activity/Vol] 43 U/L Normal 38-126 [facility] Comment on above: Performed By: #### L [id number] ####[employer] Alt[employer] Air Defense Officer: LIDIA NEIL ([phone])[facility] [place] ([facility])[address] ALT [Catalytic activity/Vol] 35 U/L Normal 0-49 [facility] Comment on above: Performed By: #### L [id number] ####Low Alt[employer] Air Defense Officer: LIDIA NEIL ([id number])[facility] ([facility])[address] [place] [address] Anion gap [Moles/Vol] 5 mmol/L Normal 3-13 [facility] Comment on above: Performed By: #### L [id number] ####Low Altitude Air Defense Officer: LIDIA NIEL ([phone])[facility] [place] ([facility])[address] AST [Catalytic activity/Vol] 70 U/L High 15-46 [facility] Comment on above: Performed By: #### L [id number] ####Low Alt[employer] Air Defense Officer: LIDIA NEIL ([id number])[facility] [place] ([facility])[address] Bilirubin [Mass/Vol] 0.6 mg/dL Normal 0.2-1.3 [facility] Comment on above: Performed By: #### L [id number] ####[employer] Alt[employer] Air Defense Officer: LIDIA NEIL ([id number])[facility] ([facility])[address] Calcium [Mass/Vol] 9.0 mg/dL Normal 8.4-10.4 [facility] Comment on above: Performed By: #### L [id number] ####Low Alt[employer] Air Defense Officer: LIDIA NEIL ([id number])[facility] [place] (HLAB)[address] Chloride [Moles/Vol] 100 mmol/L Normal 98-107 [facility] Comment on above: Performed By: #### L [id number] ####Low Alt[employer] Air Defense Officer: LIDIA NEIL ([id number])[facility] [place] ([facility])[address] [place] [address] [place] CO2 [Moles/Vol] 35 mmol/L High 22-30 [facility] Comment on above: Performed By: #### L [id number] ####Low Alt[employer] Air Defense Officer: LIDIA NEIL ([id number])[facility] ([facility])[address] Creatinine [Mass/Vol] 0.84 mg/dL Normal 0.66-1.25 [facility] Comment on above: Performed By: #### L [id number] ####Low Altitude Air Defense Officer: LIDIA NEIL ([id number])[facility] ([facility])[address] GLOMERULAR FILTRATION RATE ML/MIN/1.73 SQ M.PREDICTED >90.0 Normal >60.0 [facility] Comment on above: Result Comment: Calc ulation based on the Chronic Kidney Disease Epidemiology Collaboration (CKD-EPI) equation refit without adjustment for raceORDER COMMENTS:Slightly Hemolyzed Performed By: #### L [id number] ####Low Alt[employer] Air Defense Officer: LIDIA NEIL ([phone])[facility] ([facility])[address] Glucose [Mass/Vol] 89 mg/dL Normal 70-100 [facility] Comment on above: Performed By: #### L [id number] ####Low Alt[employer] Air Defense Officer: LIDIA NEIL ([id number])[facility] (SB[facility])[address] Potassium [Moles/Vol] 5.0 mmol/L Normal 3.5-5.1 [facility] Comment on above: Performed By: #### L [id number] ####[employer] Alt[employer] Air Defense Officer: LIDIA NEIL ([id number])[facility] ([facility])[address] Protein [Mass/Vol] 7.7 g/dL Normal 6.3-8.2 [facility] Comment on above: Performed By: #### L [id number] ####[employer] Alt[employer] Air Defense Officer: LIDIA NEIL ([id number])[facility] ([facility])[address] [place] [address] [place] Sodium [Moles/Vol] 139 mmol/L Normal 135-145 [facility] Comment on above: Performed By: #### L [id number] ####[employer] Alt[employer] Air Defense Officer: LIDIA NEIL ([id number])[facility] ([facility])[address] [place] [address] [place] Urea nitrogen [Mass/Vol] 30 mg/dL High 9-20 [facility] Comment on above: Performed By: #### L [id number] ####[employer] Alt[employer] Air Defense Officer: LIDIA NEIL ([id number])[facility] [place] ([facility])[address] [place] [address] CT CHEST WO IV CONTRASTon CT CHEST WO IV CONTRAST Normal [facility] CT Chest WO contraston 01-29 [facility] [place] [facility] RADIOLOGY [facility] Radiology Study observation (narrative) [facility] CT Neck WO contraston [address] [facility] Radiology Study observation (narrative) [facility] CT SOFT TISSUE NECK WO IV CO NTRASTon 01-29-2023 CT SOFT TISSUE NECK WO IV CONTRAST Normal [facility] Comprehensive metabolic 1998 panelon 01-29-2023 Albumin [Mass/Vol] 4.5 g/dL 3.5 - 5.0 g/dL [facility] ALP [Catalytic activity/Vol] 44 U/L 38 - 126 U/L [facility] ALT [Catalytic activity/Vol] 31 U/L 0 - 49 U/L [facility] Anion gap [Moles/Vol] 13 mmol/L 3 - 13 mmol/L [facility] AST [Catalytic activity/Vol] 40 U/L 15 - 46 U/L [facility] Bilirubin [Mass/Vol] 1.0 mg/dL 0.2 - 1 .3 mg/dL [facility] Calcium [Mass/Vol] 9.1 mg/dL 8.4 - 10. 4 mg/dL [facility] Chloride [Moles/Vol] 98 mmol/L 98 - 10 7 mmol/L [facility] CO2 [Moles/Vol] 27 mmol/L 22 - 30 mmol/L [facility] Creatinine [Mass/Vol] 0.86 mg/dL 0.66 - 1.25 mg/dL [facility] GFR/1.73 sq M.predicted MDRD (S/P/Bld) [Vol rate/Area] - PINF [facility] Glucose [Mass/Vol] 106 mg/dL High 70 - 100 mg/dL [facility] Interpretation and review of laboratory results Abnormal [facility] Potassium [Moles/Vol] 5.2 mmol/L High 3.5 - 5.1 mmol/L [facility] Protein [Mass/Vol] 7.8 g/dL 6.3 - 8.2 g/dL [facility] Sodium [Moles/Vol] 137 mmol/L 135 - 145 mmol/L [facility] Urea nitrogen [Mass/Vol] 26 mg/dL High 9 - 20 mg/dL [facility] Albumin [Mass/Vol] 4.3 g/dL 3.5 - 5.0 g/dL [facility] ALP [Catalytic activity/Vol] 43 U/L 38 - 126 U/L [facility] ALT [Catalytic activity/Vol] 35 U/L 0 - 49 U/L [facility] Anion gap [Moles/Vol] 5 mmol/L 3 - 13 mmol/L [facility] AST [Catalytic activity/Vol] 70 U/L High 15 - 46 U/L [facility] Bilirubin [Mass/Vol] 0.6 mg/dL 0.2 - 1 .3 mg/dL [facility] Calcium [Mass/Vol] 9.0 mg/dL 8.4 - 10. 4 mg/dL [facility] Chloride [Moles/Vol] 100 mmol/L 98 - 10 7 mmol/L [facility] CO2 [Moles/Vol] 35 mmol/L High 22 - 30 mmol/L [facility] Creatinine [Mass/Vol] 0.84 mg/dL 0.66 - 1.25 mg/dL [facility] GFR/1.73 sq M.predicted MDRD (S/P/Bld) [Vol rate/Area] - PINF [facility] Glucose [Mass/Vol] 89 mg/dL 70 - 100 mg/dL [facility] Interpretation and review of laboratory results Abnormal [facility] Potassium [Moles/Vol] 5.0 mmol/L 3.5 - 5.1 mmol/L [facility] Protein [Mass/Vol] 7.7 g/dL 6.3 - 8.2 g/dL [facility] Sodium [Moles/Vol] 139 mmol/L 135 - 145 mmol/L [facility] Urea nitrogen [Mass/Vol] 30 mg/dL High 9 - 20 mg/dL [facility] - Chemistry and C hemistry - challengeon 01-29-2023 Glucose [Mass/Vol] 95 mg/dL 70 - 100 mg/dL [facility] Glucose [Mass/Vol] 97 mg/dL 70 - 100 mg/dL [facility] Glucose [Mass/Vol] 82 mg/dL 70 - 100 mg/dL [facility] Procalcitonin [Mass/Vol] 0.25 ng/mL High 0.00 - 0.09 ng/mL [facility] Glucose [Mass/Vol] 77 mg/dL 70 - 100 mg/dL [facility] Glucose [Mass/Vol] 81 mg/dL 70 - 100 mg/dL [facility] - Chemistry and C hemistry - challengeOrdered By: Consuelo Oropeza on 01-29-2023 Base excess Calc (Bld) [Moles/Vol] 1.4 mmol/L -3.0 - 3.0 mmol/L [facility] CO2 (Bld) [Partial pressure] 58.4 mm[Hg] High - PINF [facility] CO2 [Moles/Vol] 30.4 mmol/L High 23.0 - 27.0 mmol/L [facility] HCO3 (Bld) [Moles/Vol] 28.6 mmol/L High 21.0 - 25.0 mmol/L [facility] Oxygen (Bld) [Partial pressure] 114.7 mm[Hg] High [facility] pH (Bld) 7.308 [pH] Low 7.350 - 7.450 [facility] Laboratory - Hematology and Cell countsOrdered By: Consuelo Oropeza on 01-29-2023 Hemoglobin (Bld) [Mass/Vol] 10.9 g/dL Screen Only [facility] No Panel Informationon 01-29 Interpretation and review of laboratory results Normal [facility] Interpretation and review of laboratory results Normal [facility] Interpretation and review of laboratory results Normal [facility] Interpretation and review of laboratory results Normal [facility] Interpretation and review of laboratory results Normal [facility] No Panel InformationOrdered By: Consuelo Oropeza on 01-29-2023 Interpretation and review of laboratory results Abnormal [facility] Source Of Oxygen 50% Oxygen [facility] Nursing Noteon 01-29-2023 Nursing Note Normal [facility] Procalcitonin [Mass/Vol]on 03-31-2022 Interpretation and review of laboratory results Abnormal [facility] Progress Noteon 01-29-2023 Progress Note Normal [facility] Progress Note Normal [facility] Progress Note Call placed to [facility] transfer line Information given Need to be out of ICU and stable for 24 hours for floor transfer, wont be in chica euntil tomorrow morning. Still waiting to conference with physician. Family at bedside updated. Normal [facility] Progress Note Normal [facility] Progress Note Accepted ICU transfer Normal [facility] Progress Note Normal [facility] US Heart Transthoracicon Fractional Shortening 2D 16 % 28 - 44 % [facility] IVSd 0.9 cm 0.6 - 1.0 cm [facility] LV Mass 2D 123.3 g 88 - 224 g [facility] LV Mass 2D Index 61.3 g/m2 49 - 115 g/m2 [facility] LV RWT Ratio 0.42 [facility] LVIDd 4.3 cm 4.2 - 5.9 cm [facility] LVIDd Index 2.14 cm/m2 [facility] LVIDs 3.6 cm [facility] LVIDs Index 1.79 cm/m2 [facility] LVPWd 0.9 cm 0.6 - 1.0 cm [facility] CV CPACS [facility] XR CHEST 1 VIEWon 01-29-2023 XR CHEST 1 VIEW Normal [facility] XR Chest Single viewon 01-29 [facility] Radiology Study observation (narrative) [facility] RADIOLOGY SYSTEM [facility] Radiology Study observation (narrative) [facility] RADIOLOGY SYSTEM [facility] Radiology Study observation (narrative) [facility] XR Chest Single viewOrdered By: Ray Bolaños on 01-29-2023 [facility] [employer] Phone: XR Chest Single viewOrdered By: Walter Pham on 01-29-2023 [facility] [employer] Phone: XR Chest Single viewOrdered By: William Bolaños on 01-29-2023 [facility] [employer] Phone: [phone] 01-28-2023 [id number] Packaging Line Attendant following case for Discharge Needs. DME order for shower chair placed and [employer] notified. Waiting for PT/OT evals. Normal [facility] CARECOORDon 01-28-2023 CARECOORD Normal [facility] CARECOORD Normal [facility] CARECOORD Left chest tube removed overnight and dsd dressing in place. Possible sbt today. .. Normal [facility] COMPREHENSIVE METABOLIC PANE Rafael 01-28-2023 Albumin [Mass/Vol] 3.9 g/dL Normal 3.5-5.0 [facility] Comment on above: Performed By: #### L [id number], [id number], [id number] ####[employer] Officer: LIDIA NEIL ([id number])[facility] (SBHLAB)[address] ALP [Catalytic activity/Vol] 40 U/L Normal 38-126 [facility] Comment on above: Performed By: #### L AB113, [id number], LAB17 ####[employer] Defense Officer: LIDIA NEIL ([id number])[facility] (SBHLAB)[address] ALT [Catalytic activity/Vol] 23 U/L Normal 0-49 [facility] Comment on above: Performed By: #### L AB113, EXP078, LAB17 ####[employer] Alt[employer] Air Defense Officer: LIDIA NEIL ([id number])[facility] (SBHLAB)[address] Anion gap [Moles/Vol] 5 mmol/L Normal 3-13 [facility] Comment on above: Performed By: #### L AB113, EMM395, LAB17 ####[employer] Alt[employer] Defense Officer: LIDIA NEIL ([id number])[facility] (SBHLAB)[address] AST [Catalytic activity/Vol] 42 U/L Normal 15-46 [facility] Comment on above: Performed By: #### L AB113, HNP075, LAB17 ####[employer] Alt[employer] Air Defense Officer: LIDIA NEIL ([id number])[facility] (SB[facility])[address] Bilirubin [Mass/Vol] 0.3 mg/dL Normal 0.2-1.3 [facility] Comment on above: Performed By: #### L AB113, QTK032, LAB17 ####[employer] Alt[employer] Defense Officer: LIDIA NEIL ([id number])[facility] (SBHLAB)[address] Calcium [Mass/Vol] 9.1 mg/dL Normal 8.4-10.4 [facility] Comment on above: Performed By: #### L ABTracy, [id number], LAB17 ####[employer] Defense Officer: LIDIA SAEEDDIOMEDES ([id number])[facility] (SBHLAB)[address] Chloride [Moles/Vol] 103 mmol/L Normal 98-107 [facility] Comment on above: Performed By: #### L ABTracy, GHW672, LAB17 ####[employer] Alt[employer] Air Defense Officer: LIDIA NEIL ([id number])[facility] ([facility])[address] [place] [address] [place] CO2 [Moles/Vol] 28 mmol/L Normal 22-30 [facility] Comment on above: Performed By: #### L ABTracy, AND777, LAB17 ####Low Alt[employer] Air Defense Officer: LIDIA NEIL ([id number])[facility] ([facility])[address] [place] [address] [place] Creatinine [Mass/Vol] 0.91 mg/dL Normal 0.66-1.25 [facility] Comment on above: Performed By: #### L AB113, [id number], LAB17 ####Low Alt[employer] Air Defense Officer: LIDIA NEIL ([id number])[facility] (SBHLAB)[address] GLOMERULAR FILTRATION RATE ML/MIN/1.73 SQ M.PREDICTED >90.0 Normal >60.0 [facility] Comment on above: Result Comment: Calc ulation based on the Chronic Kidney Disease Epidemiology Collaboration (CKD-EPI) equation refit without adjustment for race Performed By: #### Светлана ABTracy, QSK200, LAB17 ####Low Alt[employer] Air Defense Officer: LIDIA NEIL ([id number])[facility] [place] (SBHLAB)[address] Glucose [Mass/Vol] 122 mg/dL High 70-100 [facility] Comment on above: Performed By: #### L AB113, YKY793, LAB17 ####[employer] Alt[employer] Air Defense Officer: LIDIA NEIL ([id number])[facility] [place] (SBHLAB)[address] Potassium [Moles/Vol] 4.5 mmol/L Normal 3.5-5.1 [facility] Comment on above: Performed By: #### Светлана UNDERWOOD, EAC519, LAB17 ####[employer] Alt[employer] Air Defense Officer: LIDIA NEIL ([id number])[facility] [place] (SBHLAB)[address] Protein [Mass/Vol] 6.8 g/dL Normal 6.3-8.2 [facility] Comment on above: Performed By: #### Светлана ABTracy, [id number], LAB17 ####Low Alt[employer] Air Defense Officer: LIDIA NEIL ([id number])[facility] [place] (SBHLAB)[address] [place] [address] [place] Sodium [Moles/Vol] 136 mmol/L Normal 135-145 [facility] Comment on above: Performed By: #### Светлана ABTracy, EEX911, LAB17 ####Low Alt[employer] Air Defense Officer: LIDIA NEIL ([id number])[facility] [place] (SBHLAB)[address] [place] [address] [place] Urea nitrogen [Mass/Vol] 30 mg/dL High 9-20 [facility] Comment on above: Performed By: #### L AB113, QXQ797, LAB17 ####Low Altitude Air Defense Officer: LIDIA NEIL ([id number])[facility] [place] (SBHLAB)[address] [place] [id number] [facility] Comprehensive metabolic 1998 panelon 01-28-2023 Albumin [Mass/Vol] 3.9 g/dL 3.5 - 5.0 g/dL [facility] ALP [Catalytic activity/Vol] 40 U/L 38 - 126 U/L [facility] ALT [Catalytic activity/Vol] 23 U/L 0 - 49 U/L [facility] Anion gap [Moles/Vol] 5 mmol/L 3 - 13 mmol/L [facility] AST [Catalytic activity/Vol] 42 U/L 15 - 46 U/L [facility] Bilirubin [Mass/Vol] 0.3 mg/dL 0.2 - 1 .3 mg/dL [facility] Calcium [Mass/Vol] 9.1 mg/dL 8.4 - 10. 4 mg/dL [facility] Chloride [Moles/Vol] 103 mmol/L 98 - 10 7 mmol/L [facility] CO2 [Moles/Vol] 28 mmol/L 22 - 30 mmol/L [facility] Creatinine [Mass/Vol] 0.91 mg/dL 0.66 - 1.25 mg/dL [facility] GFR/1.73 sq M.predicted MDRD (S/P/Bld) [Vol rate/Area] - PINF [facility] Glucose [Mass/Vol] 122 mg/dL High 70 - 100 mg/dL [facility] Interpretation and review of laboratory results Abnormal [facility] Potassium [Moles/Vol] 4.5 mmol/L 3.5 - 5.1 mmol/L [facility] Protein [Mass/Vol] 6.8 g/dL 6.3 - 8.2 g/dL [facility] Sodium [Moles/Vol] 136 mmol/L 135 - 145 mmol/L [facility] Urea nitrogen [Mass/Vol] 30 mg/dL High 9 - 20 mg/dL [facility] IDNon 01-28-2023 IDN Normal [facility] Laboratory - Chemistry and C hemistry - challengeon 01-28-2023 Glucose [Mass/Vol] 109 mg/dL High 70 - 100 mg/dL [facility] Glucose [Mass/Vol] 102 mg/dL High 70 - 100 mg/dL [facility] Glucose [Mass/Vol] 89 mg/dL 70 - 100 mg/dL [facility] Magnesium [Mass/Vol] 2.3 mg/dL 1.6 - 2 .3 mg/dL [facility] Base excess Calc (Bld) [Moles/Vol] 1.7 mmol/L -3.0 - 3.0 mmol/L [facility] CO2 (Bld) [Partial pressure] 52.2 mm[Hg] High [facility] HCO3 (Bld) [Moles/Vol] 28.1 mmol/L High 21.0 - 25.0 mmol/L [facility] Oxygen (Bld) [Partial pressure] 45.7 mm[Hg] Critically low [facility] pH (Bld) 7.340 [pH] Low 7.350 - 7.450 pH [facility] Glucose [Mass/Vol] 111 mg/dL High 70 - 100 mg/dL [facility] MAGNESIUMon 01-28-2023 Magnesium [Mass/Vol] 2.3 mg/dL Normal 1.6-2.3 [facility] Comment on above: Performed By: #### L AB113, [id number], LAB17 ####[employer] Alt[employer] Air Defense Officer: LIDIA NEIL ([id number])[facility])[address] [place] [address] No Panel Informationon 01-28 Interpretation and review of laboratory results Abnormal [facility] Interpretation and review of laboratory results Abnormal [facility] Interpretation and review of laboratory results Normal [facility] Interpretation and review of laboratory results Normal [facility] [id number] 40 [facility] Interpretation and review of laboratory results Abnormal [facility] Interpretation and review of laboratory results Abnormal [facility] PHOSPHORUSon 01-28-2023 Phosphate [Mass/Vol] 2.6 mg/dL Normal 2.5-4.5 [facility] Comment on above: Performed By: #### L AB113, [id number], LAB17 ####[employer] Alt[employer] Air Defense Officer: LIDIA NEIL ([id number])[facility])[address] PROCALCITONIN TESTon 023 PROCALCITONIN 0.25 ng/mL High 0.00-0.09 [facility] Comment on above: Order Comment: Obtai n 48 hours after last Procalcitonin result Result Comment: Obta in 48 hours after last Procalcitonin resultORDER COMMENTS:PCT <0.50 = Low risk of severe sepsis and/or septic shock.PCT >2.00 = High risk of severe sepsis and/or septic shock. Performed By: #### L [id number] ####[employer] Alt[employer] Air Defense Officer: FINN BONNER ([id number])[facility] (SACLAB)[address] [place] [address] [place] Phosphate [Moles/Vol]on 01-12 Phosphate [Mass/Vol] 2.6 mg/dL 2.5 - 4 .5 mg/dL [facility] Progress Noteon 01-28-[address] [facility] Progress Note Normal [facility] Progress Note Normal [facility] XR Chest Single viewon 01-28 [facility] [place] Radiology Study observation (narrative) [facility] RADIOLOGY SYSTEM [facility] Radiology Study observation (narrative) [facility] Radiology Study observation (narrative) [facility] XR Chest Single viewOrdered By: Doyle Perez on 01-28-2023 [facility] Work Phone: XR Chest Single viewOrdered By: Mikhail Saravia on 01-28-2023 [facility] Work Phone: CARECOORDon 01-27-2023 CARECOORD Normal [facility] CBC WITH AUTO DIFFERENTIALon 01-27-2023 Basophils (Bld) [#/Vol] 0.0 10*3/uL Normal 0.0-0.2 [facility] Comment on above: Performed By: #### L [id number] ####Low Altitude Air Defense Officer: LIDIA NEIL ([id number])[facility] (SBHLAB)[address] [place] [address] [place] Basophils/100 WBC (Bld) 0.1 % Normal 0.0-2.0 [facility] Comment on above: Performed By: #### L [id number] ####Low Altitude Air Defense Officer: LIDIAZAC NEIL ([id number])[facility] (SBHLAB)[address] Eosinophils (Bld) [#/Vol] 0.0 10*3/uL Normal 0.0-0.5 [facility] Comment on above: Performed By: #### L [id number] ####Low Alt[employer] Air Defense Officer: LIDIAZAC NEIL ([id number])[facility] (SBHLAB)[address] Eosinophils/100 WBC (Bld) 0.1 % Low 1.0-6.0 [facility] Comment on above: Performed By: #### L [id number] ####Low Altitude Air Defense Officer: LIDIA NEIL ([id number])[facility] [place] (SBHLAB)[address] Erythrocyte distribution width (RBC) [Ratio] 18.9 % High 11.5-14.5 [facility] Comment on above: Performed By: #### L [id number] ####Low Altitude Air Defense Officer: LIDIAZAC NEIL ([id number])[facility] [place] (SBHLAB)[address] ERYTHROCYTE MEAN CORPUSCULAR HEMOGLOBIN CONCENTRATION (G/DL) BY AUTOMATED 31.1 % Low 32.0-36.0 [facility] Comment on above: Performed By: #### L [id number] ####Low Altitude Air Defense Officer: LIDIA JOLYNN ([id number])[facility] [place] (SBHLAB)[address] Hematocrit (Bld) [Volume fraction] 36.0 % Low 40.0-52.0 [facility] Comment on above: Performed By: #### L [id number] ####Low Altitude Air Defense Officer: LIDIA MAYENFLY ([id number])[facility] [place] (SBHLAB)[address] Hemoglobin (Bld) [Mass/Vol] 11.2 g/dL Low 13.0-18.0 [facility] Comment on above: Performed By: #### L [id number] ####Low Altitude Air Defense Officer: LIDIA JOLYNN ([id number])[facility] [place] (SBHLAB)[address] Lymphocytes (Bld) [#/Vol] 0.5 10*3/uL Low 1.0-4.3 [facility] Comment on above: Performed By: #### L [id number] ####Low Altitude Air Defense Officer: LIDIA JOLYNN ([id number])[facility] [place] (SBHLAB)[address] Lymphocytes/100 WBC (Bld) 4.5 % Low 20.0-40.0 [facility] Comment on above: Performed By: #### L [id number] ####Low Altitude Air Defense Officer: LIDIA JOLYNN ([id number])[facility] [place] (SBHLAB)[address] MCH (RBC) [Entitic mass] 25.5 pg Low 26.0-34.0 [facility] Comment on above: Performed By: #### L [id number] ####Low Altitude Air Defense Officer: LIDIA SAEEDDIOMEDES ([id number])[facility] (SBHLAB)[address] MCV (RBC) [Entitic vol] 82.0 fL Normal 80.0-98.0 [facility] Comment on above: Performed By: #### L [id number] ####Low Altitude Air Defense Officer: LIDIA SAEEDDIOMEDES ([id number])[facility] [place] (SBHLAB)[address] [place] [address] [place] Monocytes (Bld) [#/Vol] 0.4 10*3/uL Normal 0.0-0.8 [facility] Comment on above: Performed By: #### L [id number] ####Low Altitude Air Defense Officer: LIDIA SAEEDDIOMEDES ([id number])[facility] [place] (SBHLAB)[address] Monocytes/100 WBC (Bld) 3.8 % Normal 2.0-10.0 [facility] Comment on above: Performed By: #### L [id number] ####Low Altitude Air Defense Officer: LIDIA NEIL ([id number])[facility] [place] (SBHLAB)[address] Neutrophils (Bld) [#/Vol] 10.8 10*3/uL High 1.8-7.0 [facility] Comment on above: Performed By: #### L [id number] ####Low Altitude Air Defense Officer: LIDIA NEIL ([id number])[facility] [place] (SBHLAB)[address] Neutrophils/100 WBC (Bld) 91.5 % High 40.0-80.0 [facility] Comment on above: Performed By: #### L [id number] ####Low Altitude Air Defense Officer: LIDIA NEIL ([id number])[facility] [place] (SBHLAB)[address] NRBC (PER 100 WBCS) BY AUTOMATED COUNT 0.0 /100 WBCs Normal 0.0-2.0 [facility] Comment on above: Performed By: #### L [id number] ####Low Altitude Air Defense Officer: LIDIA NEIL ([id number])[facility] [place] (SBHLAB)[address] Platelet mean volume (Bld) [Entitic vol] 7.7 fL Normal 7.4-12.4 [facility] Comment on above: Performed By: #### L [id number] ####Low Altitude Air Defense Officer: LIDIA NEIL ([id number])[facility] [place] (SBHLAB)[address] Platelets (Bld) [#/Vol] 280 10*3/uL Normal 140-440 [facility] Comment on above: Performed By: #### L [id number] ####Low Altitude Air Defense Officer: LIDIA NEIL ([id number])[facility] [place] (SBHLAB)[address] RBC (Bld) [#/Vol] 4.39 10*6/uL Low 4.40-5.90 [facility] Comment on above: Performed By: #### L [id number] ####Low Altitude Air Defense Officer: LIDIA NEIL ([id number])[facility])[address] WBC (Bld) [#/Vol] 11.8 10*3/uL High 3.6-10.7 [facility] Comment on above: Performed By: #### L [id number] ####Low Altitude Air Defense Officer: LIDIA NEIL ([id number])[facility]ITAL[facility])[address] CKon 01-27-2023 CK [Catalytic activity/Vol] 2364 U/L High 30-170 [facility] Comment on above: Performed By: #### L AB17, LAB62, TMT698, [id number], [id number] ####Low Altitude Air Defense Officer: LIDIA NEIL ([id number])[facility])[address] CK [Catalytic activity/Vol]o n 01-27-2023 Interpretation and review of laboratory results Abnormal [facility] COMPREHENSIVE METABOLIC PANE Rafael 01-27-2023 Albumin [Mass/Vol] 3.9 g/dL Normal 3.5-5.0 [facility] Comment on above: Performed By: #### L AB17, LAB62, HBR543, PZG167, [id number] ####Low Altitude Air Defense Officer: LIDIA NEIL ([id number])[facility] (HLAB)[address] [place] [address] ALP [Catalytic activity/Vol] 47 U/L Normal 38-126 [facility] Comment on above: Performed By: #### L AB17, LAB62, DJG786, ILT903, [id number] ####Low Altitude Air Defense Officer: LIDIA NEIL ([id number])[facility])[address] ALT [Catalytic activity/Vol] 54 U/L High 0-49 [facility] Comment on above: Performed By: #### L AB17, LAB62, JTR235, HII332, [id number] ####Low Altitude Air Defense Officer: LIDIA NEIL ([id number])[facility] [place] (SBHLAB)[address] Anion gap [Moles/Vol] 10 mmol/L Normal 3-13 [facility] Comment on above: Performed By: #### L AB17, LAB62, IYJ669, URS948, [id number] ####Low Altitude Air Defense Officer: LIDIA NEIL ([id number])[facility] (SBHLAB)[address] AST [Catalytic activity/Vol] 45 U/L Normal 15-46 [facility] Comment on above: Performed By: #### L AB17, LAB62, VSX447, DOB010, [id number] ####Low Altitude Air Defense Officer: LIDIA NEIL ([id number])[facility] (SBHLAB)[address] Bilirubin [Mass/Vol] 0.3 mg/dL Normal 0.2-1.3 [facility] Comment on above: Performed By: #### L AB17, LAB62, IBP670, PLB705, [id number] ####Low Altitude Air Defense Officer: LIDIA NEIL ([id number])[facility] (SBHLAB)[address] Calcium [Mass/Vol] 8.8 mg/dL Normal 8.4-10.4 [facility] Comment on above: Performed By: #### L AB17, LAB62, XRY749, ZIF560, [id number] ####Low Altitude Air Defense Officer: LIDIA NEIL ([id number])[facility] (SBHLAB)[address] [place] [address] [place] Chloride [Moles/Vol] 103 mmol/L Normal 98-107 [facility] Comment on above: Performed By: #### L AB17, LAB62, HFC546, YSE675, [id number] ####Low Altitude Air Defense Officer: LIDIA NEIL ([id number])[facility] (SBHLAB)[address] CO2 [Moles/Vol] 24 mmol/L Normal 22-30 [facility] Comment on above: Performed By: #### Светлана AB17, LAB62, GLO608, RON429, [id number] ####Low Altitude Air Defense Officer: LIDIA NEIL ([id number])[facility] (SBHLAB)[address] Creatinine [Mass/Vol] 1.01 mg/dL Normal 0.66-1.25 [facility] Comment on above: Performed By: #### Светлана AB17, LAB62, FMA680, CIE838, [id number] ####Low Altitude Air Defense Officer: LIDIA NEIL ([id number])[facility] [place] [address] GLOMERULAR FILTRATION RATE ML/MIN/1.73 SQ M.PREDICTED 89.5 mL/min/1.73m*2 Normal >60.0 [facility] Comment on above: Result Comment: Calc ulation based on the Chronic Kidney Disease Epidemiology Collaboration (CKD-EPI) equation refit without adjustment for race Performed By: #### Светлана AB17, LAB62, WTR725, EMU314, [id number] ####Low Altitude Air Defense Officer: LIDIA NEIL ([id number])[facility])[address] [place] [address] Glucose [Mass/Vol] 146 mg/dL High 70-100 [facility] Comment on above: Performed By: #### L AB17, LAB62, GAO751, FPU987, [id number] ####Low Altitude Air Defense Officer: LIDIA NEIL ([id number])[facility])[address] Potassium [Moles/Vol] 4.8 mmol/L Normal 3.5-5.1 [facility] Comment on above: Performed By: #### L AB17, LAB62, IQA796, JXP335, [id number] ####Low Altitude Air Defense Officer: LIDIA NEIL ([id number])[facility] (SB[facility])[address] Protein [Mass/Vol] 7.2 g/dL Normal 6.3-8.2 [facility] Comment on above: Performed By: #### L AB17, LAB62, NSX933, VHP613, [id number] ####Low Altitude Air Defense Officer: LIDIA NEIL ([id number])[facility] (SBHLAB)[address] Sodium [Moles/Vol] 136 mmol/L Normal 135-145 [facility] Comment on above: Performed By: #### L AB17, LAB62, CFD497, BAY056, [id number] ####Low Altitude Air Defense Officer: LIDIA NEIL ([id number])[facility] (SB[facility])[address] [place] [address] Urea nitrogen [Mass/Vol] 20 mg/dL Normal 9-20 [facility] Comment on above: Performed By: #### L AB17, LAB62, HNT133, [id number], [id number] ####Low Altitude Air Defense Officer: LIDIA NEIL ([id number])[facility] ([facility])[address] [place] [address] CT CHEST WO IV CONTRASTon CT CHEST WO IV CONTRAST Normal [facility] CT Chest WO contraston 01-27 [facility] Radiology Study observation (narrative) [facility] Comprehensive metabolic 1998 panelon 01-27-2023 Albumin [Mass/Vol] 3.9 g/dL 3.5 - 5.0 g/dL [facility] ALP [Catalytic activity/Vol] 47 U/L 38 - 126 U/L [facility] ALT [Catalytic activity/Vol] 54 U/L High 0 - 49 U/L [facility] Anion gap [Moles/Vol] 10 mmol/L 3 - 13 mmol/L [facility] AST [Catalytic activity/Vol] 45 U/L 15 - 46 U/L [facility] Bilirubin [Mass/Vol] 0.3 mg/dL 0.2 - 1 .3 mg/dL [facility] Calcium [Mass/Vol] 8.8 mg/dL 8.4 - 10. 4 mg/dL [facility] Chloride [Moles/Vol] 103 mmol/L 98 - 10 7 mmol/L [facility] CO2 [Moles/Vol] 24 mmol/L 22 - 30 mmol/L [facility] Creatinine [Mass/Vol] 1.01 mg/dL 0.66 - 1.25 mg/dL [facility] Glucose [Mass/Vol] 146 mg/dL High 70 - 100 mg/dL [facility] Health Consulton 01-27-2023 Consult Normal [facility] HEMOGLOBIN A1Con 01-27-2023 Glucose [Mass/Vol] 97 mg/dL Normal [facility] Comment on above: Order Comment: If no t done within the last 3 mos Performed By: #### L AB90 ####[employer] Officer: LIDIA NEIL ([id number])[facility] [place] [address] HbA1c (Bld) [Mass fraction] 5.0 % Normal <5.7 [facility] Comment on above: Order Comment: If no t done within the last 3 mos Result Comment: Norm al less than 5.7%Prediabetes 5.7% to 6.4%Diabetes 6.5% or higher--HgbA1C levels may not be accurate in patients who have renal disease, received recent blood transfusions, are anemic, or who have dyshemoglobinemia. Performed By: #### L AB90 ####[employer] Officer: LIDIA NEIL ([id number])[facility] [place] [address] Laboratory - Chemistry and C hemistry - challengeon 01-27-2023 Glucose [Mass/Vol] 121 mg/dL High 70 - 100 mg/dL [facility] Glucose [Mass/Vol] 122 mg/dL High 70 - 100 mg/dL [facility] Troponin I.cardiac [Mass/Vol] ng/mL NINF - 0.034 ng/mL [facility] Glucose [Mass/Vol] 150 mg/dL High 70 - 100 mg/dL [facility] Troponin I.cardiac [Mass/Vol] ng/mL NINF - 0.034 ng/mL [facility] CK [Catalytic activity/Vol] 2364 U/L High 30 - 170 U/L [facility] Average glucose Estimated from glycated hemoglobin (Bld) [Mass/Vol] 97 mg/dL [facility] Troponin I.cardiac [Mass/Vol] ng/mL NINF - 0.034 ng/mL [facility] Procalcitonin [Mass/Vol] 0.11 ng/mL High 0.00 - 0.09 ng/mL [facility] Laboratory - Drug toxicology Ordered By: Leyda Cano on 01-27-2023 Amphetamines Ql (U) Negative Negative [facility] Benzodiazepines Ql (U) Negative Negative [facility] Cocaine Ql (U) Negative Negative [facility] Methadone Ql (U) Negative Negative [facility] alth Opiates Ql (U) Positive Negative [facility] Laboratory - Hematology and Cell countson 01-27-2023 HbA1c (Bld) [Mass fraction] 5.0 % [facility] % [facility] MAGNESIUMon 01-27-2023 Magnesium [Mass/Vol] 2.1 mg/dL Normal 1.6-2.3 [facility] Comment on above: Performed By: #### L AB17, LAB62, WHI119, [id number], [id number] ####Low [employer] Officer: LIDIA NEIL ([id number])[facility] (SBHLAB)[address] [place] [address] No Panel Informationon 01-27 Interpretation and review of laboratory results Abnormal [facility] Interpretation and review of laboratory results Abnormal [facility] Interpretation and review of laboratory results Abnormal [facility] No Panel InformationOrdered By: Leyda Cano on 01-27-2023 BARBITURATES Negative Negative [facility] OXYCODONE/OXYMORPHONE Negative Negative [facility] PCP Negative Negative [facility] No Panel InformationOrdered By: Ashkan Lofton on 01-27-2023 ETHANOL, URINE Not detected None Available. Reporting Limit 0.01 g/dL g/dL [facility] No Panel InformationOrdered By: Ross Luna on 01-27-2023 Interpretation and review of laboratory results Normal [facility] Legionella pneumophila Ag Not detected Not Detected [facility] Streptococcus pneumoniae Ag Not detected Not Detected [facility] PHOSPHORUSon 01-27-2023 Phosphate [Mass/Vol] 3.0 mg/dL Normal 2.5-4.5 [facility] Comment on above: Performed By: #### L AB17, LAB62, FOP116, [id number], [id number] ####[employer] Officer: LIDIA NEIL ([id number])[facility] (SB[facility])[address] [place] [address] Procalcitonin [Mass/Vol]on 03-29-2022 Interpretation and review of laboratory results Abnormal [facility] Progress Noteon 01-27-2023 Progress Note Normal [facility] Progress Note Normal [facility] Progress Note 01/27/23 0402 Wean Screen SpO2>/=88% Yes [id number] HR <140 BPM Yes RR MAP >/= 65mmHg Yes Arterial pH >7.30 and <7.50 Yes Safety Screen Spontaneous Breathing Trial (SBT) FiO2 is greater than 50% Normal [facility] RESPIRATORY PATHOGENS PANEL BY PCRon 01-27-2023 RESPIRATORY PATHOGENS PANEL BY PCR Normal [facility] Comment on above: Performed By: #### L [id number] ####Low [employer] Officer: FINN BNONER ([id number])[facility] (SAC[facility])[address] [place] [address] Respiratory pathogens DNA an d RNA panel DESTINY+non-probe (Nph)on 01-27-2023 Adenovirus Not detected Not Detected [facility] th B. pertussis DNA DESTINY+probe Ql (Unsp spec) Not detected Not Detected [facility] Bordetella parapertussis Not detected Not Detected [facility] Chlamydia pneumoniae Not detected Not Detected [facility] Coronavirus 229E Not detected Not Detected [facility] Coronavirus HKU1 Not detected Not Detected [facility] Coronavirus NL63 Not detected Not Detected [facility] Coronavirus OC43 Not detected Not Detected [facility] FLUAV RNA DESTINY+non-probe Ql (Nph) Not detected Not Detected [facility] FLUBV RNA DESTINY+non-probe Ql (Nph) Not detected Not Detected [facility] Human Metapneumovirus Not detected Not Detected [facility] Human Rhinovirus/Enteroviru s Not detected Not Detected [facility] Interpretation and review of laboratory results Normal [facility] Mycoplasma pneumoniae Not detected Not Detected [facility] Parainfluenza 1 Not detected Not Detected [facility] Parainfluenza 2 Not detected Not Detected [facility] Parainfluenza 3 Not detected Not Detected [facility] Parainfluenza 4 Not detected Not Detected [facility] Respiratory Syncytial Virus Not detected Not Detected [facility] SARS-CoV-2 (COVID-19) RNA DESTINY+non-probe Ql (Nph) Not detected Not Detected [facility] TROPONIN Ion 01-27-2023 Troponin I.cardiac [Mass/Vol] ng/mL Normal <0.034 [facility] Comment on above: Result Comment: NATALIE Doss COMMENTS:Patients with high levels of Biotin oral intake (ie >5 mg/day) may have falsely decreased Troponin levels. Performed By: #### L [id number] ####Low [employer] Officer: LIDIA NEIL ([id number])[facility] ([address] Troponin I.cardiac [Mass/Vol] ng/mL Normal <0.034 [facility] Comment on above: Result Comment: NATALIE Doss COMMENTS:Patients with high levels of Biotin oral intake (ie >5 mg/day) may have falsely decreased Troponin levels. Performed By: #### L [id number] ####Low [employer] Officer: LIDIA NEIL ([id number])[facility] ([facility])[address] [place] [address] TROPONIN, WITH SERIAL REFLEX on 01-27-2023 Troponin I.cardiac [Mass/Vol] ng/mL Normal <0.034 [facility] Comment on above: Result Comment: NATALIE Doss COMMENTS:Patients with high levels of Biotin oral intake (ie >5 mg/day) may have falsely decreased Troponin levels. Performed By: #### L AB17, LAB62, CNU305, [id number], [id number] ####Low [employer] Officer: LIDIA NEIL ([id number])[facility] ([id number] Troponin I.cardiac [Mass/Vol ]on 01-27-2023 Interpretation and review of laboratory results Normal [facility] Interpretation and review of laboratory results Normal [facility] Interpretation and review of laboratory results Normal [facility] XR Chest Single viewon 01-27 [facility] XR Chest Single viewOrdered By: Jeison Calzada on 01-27-2023 [facility] Work Phone: BLOOD CULTUREon 01-26-2023 Bacteria identified Cx Nom (Bld) Normal [facility] Comment on above: Performed By: #### L [id number] ####Low [employer] Officer: FINN BONNER ([id number])[facility] ([facility])[address] [place] [address] Bacteria identified Cx Nom (Bld) Normal [facility] Comment on above: Performed By: #### L [id number] ####Low [employer] Officer: FINN BONNER ([id number])[facility] ([facility])[address] [place] [address] BLOOD GAS, ARTERIAL([facility])on 01-26-2023 BASE EXCESS (MMOL/L) ARTERIAL BLOOD 7.0 mmol/L High -3.0-3.0 [facility] Comment on above: Performed By: #### L [id number] ####Low [employer] Officer: FINN BONNER ([id number])[facility] (SWRLAB)[address] [place] [address] CARBON DIOXIDE (MM HG) ARTERIAL BLOOD 69 mm(Hg) High 35-45 [facility] Comment on above: Performed By: #### L [id number] ####Low [employer] Officer: FINN BONNER ([id number])[facility] [place] (SWRLAB)[address] [place] [address] [place] CO2 [Moles/Vol] 35.0 mmol/L High 23.0-27.0 [facility] Comment on above: Performed By: #### L [id number] ####[employer] Officer: FINN BONNER ([id number])[facility] (SWRLAB)[address] [place] [address] HCO3 (Bld) [Moles/Vol] 33.2 mmol/L High 21.0-25.0 [facility] Comment on above: Performed By: #### L [id number] ####[employer] Officer: FINN BONNER ([id number])[facility] (SWRLAB)[address] [place] [address] OXYGEN (MM HG) ARTERIAL BLOOD 369 mm(Hg) High 80-100 [facility] Comment on above: Performed By: #### L [id number] ####Low [employer] Officer: FINN BONNER ([id number])[facility] (SWRLAB)[address] [place] [address] OXYGEN SATURATION (%) ARTERIAL BLOOD 100.0 % High 95.0-98.0 [facility] Comment on above: Performed By: #### L [id number] ####[employer] Officer: FINN BONNER ([id number])[facility] (SWRL[facility])[address] [place] [address] pH (Bld) 7.292 [pH] Low 7.350-7.450 [facility] Comment on above: Performed By: #### L [id number] ####Low [employer] Officer: FINN BONNER ([id number])[facility] (SWRLAB)[address] [place] [address] SOURCE OF OXYGEN ETT Normal [facility] Comment on above: Performed By: #### L [id number] ####Low [employer] Officer: FINN BONNER ([id number])[facility] (SWRLAB)[address] [place] [address] CALCIUM, IONIZEDon 3 CALCIUM IONIZED 4.40 mg/dL Normal 4.30-5.20 [facility] Comment on above: Performed By: #### L AB54 ####Low [employer] Officer: LIDIA NEIL ([id number])[facility] (SBHLAB)[address] [place] [address] PH, IONIZED CALCIUM 7.32 Normal 7.31-7.46 [facility] Comment on above: Performed By: #### L AB54 ####Low [employer] Officer: LIDIA NEIL ([id number])[facility] (SB[facility]AB)[address] [place] [address] CBC WITH AUTO DIFFERENTIALon 01-26-2023 Basophils (Bld) [#/Vol] 0.0 10*3/uL Normal 0.0-0.2 [facility] Comment on above: Performed By: #### L [id number] ####Low [employer] Officer: FINN BONNER ([id number])[facility] [place] [place] (SWRLAB)[address] [place] [address] [place] Basophils/100 WBC (Bld) 0.3 % Normal 0.0-2.0 [facility] Comment on above: Performed By: #### L [id number] ####Low [employer] Officer: FINN BONNER ([id number])[facility] [place] [place] (SWRL[facility])[address] [place] [address] Eosinophils (Bld) [#/Vol] 0.2 10*3/uL Normal 0.0-0.5 [facility] Comment on above: Performed By: #### L [id number] ####Low [employer] Officer: FINN BONNER ([id number])[facility] [place] ([facility])[address] [place] [address] [place] Eosinophils/100 WBC (Bld) 1.9 % Normal 1.0-6.0 [facility] Comment on above: Performed By: #### L [id number] ####Low [employer] Officer: FINN BONNER ([id number])[facility] [place] ([facility])[address] [place] [address] Erythrocyte distribution width (RBC) [Ratio] 16.4 % High 11.5-14.5 [facility] Comment on above: Performed By: #### L [id number] ####Low [employer] Officer: FINN BONNER ([id number])[facility] (SWRLAB)[address] [place] [address] ERYTHROCYTE MEAN CORPUSCULAR HEMOGLOBIN CONCENTRATION (G/DL) BY AUTOMATED 30.2 % Low 32.0-36.0 [facility] Comment on above: Performed By: #### L [id number] ####Low [employer] Officer: FINN BONNER ([id number])[facility] ([facility])[address] [place] [address] Hematocrit (Bld) [Volume fraction] 44.3 % Normal 40.0-52.0 [facility] Comment on above: Performed By: #### L [id number] ####Low [employer] Officer: FINN BONNER ([id number])[facility] ([facility])[address] [place] [address] Hemoglobin (Bld) [Mass/Vol] 13.4 g/dL Normal 13.0-18.0 [facility] Comment on above: Performed By: #### L [id number] ####Low [employer] Officer: FINN BONNER ([id number])[facility] (SWRL[facility])[address] [place] [address] [place] IMMATURE GRANS (10*3/UL) IN BLOOD BY AUTOMATED COUNT 0.0 10*3/uL Normal <=0.0 [facility] Comment on above: Performed By: #### L [id number] ####Low [employer] Officer: FINN BONNER ([id number])[facility] ([facility])[address] [place] [address] [place] IMMATURE GRANS/100 LEUKOCYTES IN BLOOD BY AUTOMATED COUNT 0.2 % High <=0.0 [facility] Comment on above: Performed By: #### L [id number] ####Low [employer] Officer: FINN BONNER ([id number])[facility] ([facility])[address] [place] [address] Lymphocytes (Bld) [#/Vol] 2.4 10*3/uL Normal 1.0-4.3 [facility] Comment on above: Performed By: #### L [id number] ####Low [employer] Officer: FINN BONNER ([id number])[facility] ([facility]RL[facility])[address] [place] [address] [place] Lymphocytes/100 WBC (Bld) 19.5 % Low 20.0-40.0 [facility] Comment on above: Performed By: #### L [id number] ####Low [employer] Officer: FINN BONNER ([id number])[facility] (SWRL[facility])[address] [place] [address] MCH (RBC) [Entitic mass] 26.0 pg Normal 26.0-34.0 [facility] Comment on above: Performed By: #### L [id number] ####Low [employer] Officer: FINN BONNER ([id number])[facility] ([facility]RL[facility])[address] [place] [address] MCV (RBC) [Entitic vol] 86.0 fL Normal 80.0-98.0 [facility] Comment on above: Performed By: #### L [id number] ####Low [employer] Officer: FINN BONNER ([id number])[facility] ([facility])[address] [place] [address] [place] Monocytes (Bld) [#/Vol] 1.4 10*3/uL High 0.0-0.8 [facility] Comment on above: Performed By: #### L [id number] ####Low [employer] Officer: FINN BONNER ([id number])[facility] ([facility])[address] [place] [address] [place] Monocytes/100 WBC (Bld) 11.4 % High 2.0-10.0 [facility] Comment on above: Performed By: #### L [id number] ####Low [employer] Officer: FINN BONNER ([id number])[place] [facility] (SWRLAB)[address] [place] [address] [place] Neutrophils (Bld) [#/Vol] 8.3 10*3/uL High 1.8-7.0 [facility] Comment on above: Performed By: #### L [id number] ####Low [employer] Defense Officer: FINN BONNER ([id number])[facility] (SWRL[facility])[address] [place] [address] [place] Neutrophils/100 WBC (Bld) 66.7 % Normal 40.0-80.0 [facility] Comment on above: Performed By: #### L [id number] ####[employer] Defense Officer: FINN BONNER ([id number])[facility] ([facility]RL[facility])[address] [place] [address] [place] Platelet mean volume (Bld) [Entitic vol] 9.7 fL Normal 7.4-12.4 [facility] Comment on above: Result Comment: MPV is a calculated measurement using platelet volume ratio Performed By: #### L [id number] ####[employer] Officer: FINN BONNER ([id number])[facility] ([facility])[address] [place] [address] [place] Platelets (Bld) [#/Vol] 413 10*3/uL Normal 140-440 [facility] Comment on above: Performed By: #### L [id number] ####[employer] Defense Officer: FINN BONNER ([id number])[facility] ([facility]RL[facility])[address] [place] [address] [place] RBC (Bld) [#/Vol] 5.15 10*6/uL Normal 4.40-5.90 [facility] Comment on above: Performed By: #### L [id number] ####Low [employer] Defense Officer: FINN BONNER ([id number])[facility] ([facility]RL[facility])[address] [place] [address] [place] WBC (Bld) [#/Vol] 12.4 10*3/uL High 3.6-10.7 [facility] Comment on above: Performed By: #### L [id number] ####Low [employer] Defense Officer: FINN BONNER ([id number])[facility]STM[facility] (SWRLAB)[address] [place] [address] [place] CKon 01-26-2023 CK [Catalytic activity/Vol] 2412 U/L High 30-170 [facility] Comment on above: Performed By: #### L AB17, [id number], ZWH588, NOP595, LAB62 ####[employer] Officer: LIDIA NEIL ([id number])[facility] (SBHL[facility])[address] [place] [address] COMPLETE URINALYSISon 2022 AMORPHOUS CRYSTALS (#/HPF) IN URINE Loaded Abnormal Negative [facility] Comment on above: Performed By: #### L [id number] ####Low Alt[employer] Defense Officer: FINN BONNER ([id number])[facility] ([facility])[address] [place] [address] BACTERIA (#/HPF) IN URINE Many Abnormal Negative [facility] Comment on above: Performed By: #### L [id number] ####[employer] Defense Officer: FINN BONNER ([id number])[facility] ([facility])[address] [place] [address] [place] BILIRUBIN, TOTAL PRESENCE IN URINE Negative Normal Negative [facility] Comment on above: Performed By: #### L [id number] ####Low [employer] Defense Officer: FINN BONNER ([id number])[facility] ([facility])[address] [place] [address] [place] Clarity (U) Extra Turbid Abnormal Clear [facility] Comment on above: Performed By: #### L [id number] ####Low [employer] Defense Officer: FINN BONNER ([id number])[facility] ([facility])[address] [place] [address] [place] Color (U) Yellow Normal Lt. Yellow [facility] Comment on above: Performed By: #### L [id number] ####[employer] Defense Officer: FINN BONNER ([id number])[facility] [place] [address] Glucose (U) [Mass/Vol] 50 mg/dL Normal Normal (<70) [facility] Comment on above: Performed By: #### L [id number] ####[employer] Defense Officer: FINN BONNER ([id number])[facility] [place] [address] HEMOGLOBIN PRESENCE IN URINE 0.5 mg/dL Abnormal Negative [facility] Comment on above: Performed By: #### L [id number] ####Low Alt[employer] Air Defense Officer: FINN BONNER ([id number])[facility] ([facility])[address] [place] [address] HYALINE CASTS (#/LPF) IN URINE SEDIMENT BY MICROSCOPY Negative Normal Negative [facility] Comment on above: Performed By: #### L [id number] ####Low [employer] Defense Officer: FINN BONNER ([id number])[facility] [place] [address] Ketones Ql (U) Negative Normal Negative [facility] Comment on above: Performed By: #### L [id number] ####Low Alt[employer] Air Defense Officer: FINN BONNER ([id number])[facility] ([facility])[address] [place] [address] LEUKOCYTE ESTERASE PRESENCE IN URINE BY TEST STRIP Negative Normal Negative [facility] Comment on above: Performed By: #### L [id number] ####[employer] Air Defense Officer: FINN BONNER ([id number])[facility] [place] [address] [place] MUCUS (#/LPF) IN URINE SEDIMENT Few Normal Negative [facility] Comment on above: Performed By: #### L [id number] ####[employer] Defense Officer: FINN BONNER ([id number])[facility] [place] [address] NITRITE PRESENCE IN URINE Negative Normal Negative [facility] Comment on above: Performed By: #### L [id number] ####[employer] Defense Officer: FINN BONNER ([id number])[facility] ([facility])[address] [place] [address] pH (U) 5.5 [pH] Normal 5.0-8.0 [facility] Comment on above: Performed By: #### L [id number] ####[employer] Defense Officer: FINN BONNER ([id number])[facility] ([facility])[address] [place] [address] Protein (U) [Mass/Vol] 30 mg/dL Abnormal Negative [facility] Comment on above: Performed By: #### L [id number] ####[employer] Defense Officer: FINN BONNER ([id number])[facility])[address] [place] [address] RBC (#/HPF) IN URINE SEDIMENT 3-5 Abnormal 0-2 [facility] Comment on above: Performed By: #### L [id number] ####[employer] Defense Officer: FINN BONNER ([id number])[facility])[address] [place] [address] Specific gravity (U) [Rel density] 1.027 Normal 1.005-1.030 [facility] Comment on above: Result Comment: NATALIE Doss COMMENTS:Interpret with caution due to sample age. Performed By: #### L [id number] ####[employer] Defense Officer: FINN BONNER ([id number])[facility])[address] [place] [address] SQUAMOUS EPITHELIAL CELLS (#/HPF) IN URINE SEDIMENT Negative Normal 3-5 [facility] Comment on above: Performed By: #### L [id number] ####[employer] Air Defense Officer: FINN BONNER ([phone])[facility])[address] [place] [address] UROBILINOGEN (MG/DL) IN URINE Normal Normal Normal (0-1) [facility] Comment on above: Performed By: #### L [id number] ####[employer] Defense Officer: FINN BONNER ([id number])[facility] ([facility])[address] WBC (LEUKOCYTE) (#/HPF) IN URINE SEDIMENT Negative Normal 0-5 [facility] Comment on above: Performed By: #### L [id number] ####[employer] Defense Officer: FINN BONNER ([id number])[facility] ([facility])[address] COMPREHENSIVE METABOLIC PANE Rafael 01-26-2023 Albumin [Mass/Vol] 4.2 g/dL Normal 3.5-5.0 [facility] Comment on above: Performed By: #### L AB17, [id number], [id number], HDX917, LAB62 ####[employer] Officer: LIDIA NEIL ([id number])[facility] (SBHLAB)[address] ALP [Catalytic activity/Vol] 61 U/L Normal 38-126 [facility] Comment on above: Performed By: #### L AB17, VNU490, JKS003, TYR854, LAB62 ####[employer] Defense Officer: LIDIA NEIL ([id number])[facility] ([facility])[address] ALT [Catalytic activity/Vol] 29 U/L Normal 0-49 [facility] Comment on above: Performed By: #### L AB17, RQO586, JUG577, NAY004, LAB62 ####[employer] Defense Officer: LIDIA NEIL ([id number])[facility] ([facility])[address] Anion gap [Moles/Vol] 8 mmol/L Normal 3-13 [facility] Comment on above: Performed By: #### L AB17, TVX275, PBP212, ITX164, LAB62 ####[employer] Defense Officer: LIDIA NEIL ([id number])[facility] ([facility])[address] AST [Catalytic activity/Vol] 40 U/L Normal 15-46 [facility] Comment on above: Performed By: #### L AB17, ZAN161, JZV250, UID041, LAB62 ####[employer] Air Defense Officer: LIDIA NEIL ([id number])[facility] [place] ([facility])[address] Bilirubin [Mass/Vol] 0.7 mg/dL Normal 0.2-1.3 [facility] Comment on above: Performed By: #### L AB17, RZP976, NSW166, GYP413, LAB62 ####[employer] Defense Officer: LIDIA NEIL ([id number])[facility] [place] ([facility])[address] Calcium [Mass/Vol] 8.5 mg/dL Normal 8.4-10.4 [facility] Comment on above: Performed By: #### L AB17, BBK644, ZLG796, PIC130, LAB62 ####[employer] Officer: LIDIA NEIL ([id number])[facility] [place] ([facility])[address] Chloride [Moles/Vol] 104 mmol/L Normal 98-107 [facility] Comment on above: Performed By: #### L AB17, TVI753, HEO388, TFS083, LAB62 ####[employer] Officer: LIDIA NEIL ([id number])[facility] [place] ([facility])[address] CO2 [Moles/Vol] 27 mmol/L Normal 22-30 [facility] Comment on above: Performed By: #### L AB17, LNS845, DAZ714, AVD711, LAB62 ####[employer] Officer: LIDIA NEIL ([id number])[facility] [place] ([facility])[address] Creatinine [Mass/Vol] 0.77 mg/dL Normal 0.66-1.25 [facility] Comment on above: Performed By: #### L AB17, BMK017, YGU337, UTR214, LAB62 ####[employer] Officer: LIDIA NEIL ([id number])[facility] [place] ([facility])[address] GLOMERULAR FILTRATION RATE ML/MIN/1.73 SQ M.PREDICTED >90.0 Normal >60.0 [facility] [facility] Comment on above: Result Comment: Calc ulation based on the Chronic Kidney Disease Epidemiology Collaboration (CKD-EPI) equation refit without adjustment for race Performed By: #### L AB17, AAT233, CGM125, JEF658, LAB62 ####Low Altitude Air Defense Officer: LIDIA NEIL ([phone])[facility] (SBHLAB)[address] Glucose [Mass/Vol] 150 mg/dL High 70-100 [facility] Comment on above: Performed By: #### L AB17, QBB011, FHH326, OYN276, LAB62 ####Low Altitude Air Defense Officer: LIDIA NEIL ([id number])[facility] (SBHLAB)[address] Potassium [Moles/Vol] 4.2 mmol/L Normal 3.5-5.1 [facility] Comment on above: Performed By: #### L AB17, CHJ492, FSK513, KDN379, LAB62 ####Low Altitude Air Defense Officer: LIDIA NEIL ([phone])[facility] (SBHLAB)[address] Protein [Mass/Vol] 7.7 g/dL Normal 6.3-8.2 [facility] Comment on above: Performed By: #### L AB17, KVW280, BGF989, OJS340, LAB62 ####Low Altitude Air Defense Officer: LIDIA NEIL ([id number])[facility] (SBHLAB)[address] [place] [address] [place] Sodium [Moles/Vol] 139 mmol/L Normal 135-145 [facility] Comment on above: Performed By: #### L AB17, OVR575, JEQ850, ZAM824, LAB62 ####Low Altitude Air Defense Officer: LIDIA NEIL ([id number])[facility] (SBHLAB)[address] [place] [address] [place] Urea nitrogen [Mass/Vol] 14 mg/dL Normal 9-20 [facility] Comment on above: Performed By: #### L AB17, ECZ653, SPI397, APB944, LAB62 ####Low Altitude Air Defense Officer: LIDIA NEIL ([phone])[facility] (SBHLAB)[address] [place] [address] Albumin [Mass/Vol] 4.6 g/dL Normal 3.5-5.0 [facility] Comment on above: Performed By: #### L AB17, [id number], JKJ472, IAY275 ####Low Altitude Air Defense Officer: FINN BONNER ([id number])[facility] (SWRLAB)[address] [place] [address] ALP [Catalytic activity/Vol] 79 U/L Normal 38-126 [facility] Comment on above: Performed By: #### L AB17, [id number], YMJ466, RVE305 ####Low Altitude Air Defense Officer: FINN BONNER ([phone])[facility] (SWRLAB)[address] [place] [address] ALT [Catalytic activity/Vol] 31 U/L Normal 0-49 [facility] Comment on above: Performed By: #### L AB17, [id number], OEZ284, XZB035 ####Low Altitude Air Defense Officer: FINN BONNER ([id number])[facility] (SWRLAB)[address] [place] [address] Anion gap [Moles/Vol] 8 mmol/L Normal 3-13 [facility] Comment on above: Performed By: #### L AB17, [id number], TDO810, JKN799 ####Low Altitude Air Defense Officer: FINN BONNER ([phone])[facility] (SWRLAB)[address] [place] [address] [place] AST [Catalytic activity/Vol] 27 U/L Normal 15-46 [facility] Comment on above: Performed By: #### L AB17, [id number], PMV918, ELQ212 ####Low Altitude Air Defense Officer: FINN BONNER ([id number])[facility] (SWRLAB)[address] [place] [address] [place] Bilirubin [Mass/Vol] 0.5 mg/dL Normal 0.2-1.3 [facility] Comment on above: Performed By: #### L AB17, [id number], YUH069, UFZ057 ####Low Altitude Air Defense Officer: FINN BONNER ([phone])[facility] (SWRLAB)[address] Calcium [Mass/Vol] 9.2 mg/dL Normal 8.4-10.4 [facility] Comment on above: Performed By: #### Светлана AB17, [id number], VIA670, MKS629 ####Low Altitude Air Defense Officer: FINN BONNER ([phone])[facility] (SWRLAB)[address] [place] [address] [place] Chloride [Moles/Vol] 99 mmol/L Normal 98-107 [facility] Comment on above: Performed By: #### Светлана AB17, [id number], AHO982, RSK097 ####Low Altitude Air Defense Officer: FINN BONNER ([phone])[facility] (SWRLAB)[address] [place] [address] [place] CO2 [Moles/Vol] 34 mmol/L High 22-30 [facility] Comment on above: Performed By: #### Светлана AB17, [id number], WIO628, MXQ284 ####Low Altitude Air Defense Officer: FINN BONNER ([id number])[facility] (SWRLAB)[address] [place] [address] [place] Creatinine [Mass/Vol] 0.94 mg/dL Normal 0.66-1.25 [facility] Comment on above: Performed By: #### L AB17, [id number], WAD223, GTM017 ####Low Altitude Air Defense Officer: FINN BONNER ([phone])[facility] (SWRLAB)[address] GLOMERULAR FILTRATION RATE ML/MIN/1.73 SQ M.PREDICTED >90.0 Normal >60.0 [facility] Comment on above: Result Comment: Calc ulation based on the Chronic Kidney Disease Epidemiology Collaboration (CKD-EPI) equation refit without adjustment for race Performed By: #### Светлана AB17, [id number], QRK582, TDD939 ####Low Altitude Air Defense Officer: FINN BONNER ([phone])[facility] (SWRLAB)[address] [place] [address] [place] Glucose [Mass/Vol] 160 mg/dL High 70-100 [facility] Comment on above: Performed By: #### Светлана AB17, [id number], SEU434, AHJ323 ####Low Altitude Air Defense Officer: FINN BONNER ([id number])[facility] (SWRLAB)[address] [place] [address] [place] Potassium [Moles/Vol] 3.8 mmol/L Normal 3.5-5.1 [facility] Comment on above: Performed By: #### Светлана AB17, [id number], TAI561, VSC828 ####Low Altitude Air Defense Officer: FINN BONNER ([id number])[facility] CR[facility]ZGERSON [facility] (SWRLAB)[address] [place] [address] [place] Protein [Mass/Vol] 8.7 g/dL High 6.3-8.2 [facility] Comment on above: Performed By: #### Светлана AB17, [id number], JKP327, XRF410 ####Low Altitude Air Defense Officer: FINN BONNER ([phone])[facility] (SWRLAB)[address] [place] [address] [place] Sodium [Moles/Vol] 141 mmol/L Normal 135-145 [facility] Comment on above: Performed By: #### L AB17, [id number], VPE434, PSM782 ####Low Altitude Air Defense Officer: FINN BONNER ([phone])[facility] (SWRLAB)[address] [place] [address] [place] Urea nitrogen [Mass/Vol] 13 mg/dL Normal 9-20 [facility] Comment on above: Performed By: #### L AB17, [id number], VWN758, TFC533 ####Low Altitude Air Defense Officer: FINN BONNER ([phone])[facility] (SWRLAB)[address] [place] [address] ECG 12-LEADon 01-26-2023 ECG 12-LEAD IMPRESSION: SINUS RHYTHM BORDERLINE T ABNORMALITIES, ANT-LAT LEADS No change compared to previous ekg Electronically Signed On 01-26-2023 16:32:17 EST by Ramon Cunha [facility] ED Nursing Noteon 01-26-2023 ED Nursing Note Report to [facility] flight crew. Pt's sister given room number at [facility]. Chart to flight crew for [place]. [facility] called to let them know of pt departure Francois Murray RN 01/26/23 194 Normal [facility] ED Nursing Note Normal [facility] ED Nursing Note Prior to being sedat ed and intubated the pt gave this RN verbal consent to speak with brother Jose Alfredo Steele about his condition. Lizzeth Evans RN 01/26/23 190 Normal [facility] ED Nursing Note Dr. Cunha notified that pt is awake and gesturing to sister at bedside. Propofol drip increased to 40 mcg/kg/min Francois Murray RN 01/26/23 185 [facility] ED Nursing Note [facility] called back and they are sending [facility] life flight helicopter for pt. ETA 25 min Francois Murray RN 01/26/23 1845 Normal [facility] ED Nursing Note Report called to Lynn SENIOR LINUX ADMINISTRATOR, Kim Murray RN 01/26/23 1738 Normal [facility] ED Nursing Note Chest tube removed a nd replaced with 28F by Dr. Cunha. Pt remains sedated and tolerated well. Francois Murray RN 01/26/23 1722 Normal [facility] ED Nursing Note Normal [facility] ED Nursing Note Normal [facility] ED Provider Noteon 11-15-202 3 ED Provider Note Normal [facility] ETHANOL, URINEon 01-26-2023 ETHANOL, URINE-CAT LIST Not detected Normal None Available. Reporting Limit 0.01 g/dL [facility] Comment on above: Result Comment: NATALIE Doss COMMENTS:NOTE:These results are for medical treatment only. Analysis performed using non-forensic procedures.This test has not been cleared by the US Food and Drug Administration (FDA). The FDA has determined that such clearance or approval is not necessary. The performance chararcteristics have been determined by the clinical laboratories of [facility]. Performed By: #### L AB389, [id number] ####Low Altitude Air Defense Officer: FINN BONNER ([phone])[facility] (SACLAB)[address] [place] [address] LACTIC ACID WITH REFLEXon Lactate [Moles/Vol] 1.5 mmol/L Normal 0.7-2.0 [facility] Comment on above: Performed By: #### L [id number] ####Low Altitude Air Defense Officer: FINN BONNER ([phone])[facility] (SWRLAB)[address] [place] [address] LEGIONELLA AND STREPTOCOCCUS URINE ANTIGENon 01-26-2023 LEGIONELLA AND STREPTOCOCCUS URINE ANTIGEN Normal [facility] Comment on above: Performed By: #### L [id number] ####Low Altitude Air Defense Officer: FINN BONNER ([phone])[facility] (SACLAB)[address] [place] [address] [place] MAGNESIUMon 01-26-2023 Magnesium [Mass/Vol] 1.7 mg/dL Normal 1.6-2.3 [facility] Comment on above: Performed By: #### L AB17, [id number], UWR956, BEG747, LAB62 ####Low Altitude Air Defense Officer: LIDIA NEIL ([id number])[facility]FEMIA (SBHLAB)[address] [place] [address] Magnesium [Mass/Vol] 2.0 mg/dL Normal 1.6-2.3 [facility] Comment on above: Performed By: #### L AB17, [id number], XOL609, YCL424 ####Low Altitude Air Defense Officer: FINN BONNER ([id number])[facility] (SWRLAB)[address] [place] [address] [place] MRSA BY PCRon 01-26-2023 MRSA BY PCR Normal [facility] Comment on above: Performed By: #### L [id number] ####Low Altitude Air Defense Officer: FINN BONNER ([id number])[facility] (SACLAB)[address] [place] [address] [place] PHOSPHORUSon 01-26-2023 Phosphate [Mass/Vol] 3.2 mg/dL Normal 2.5-4.5 [facility] Comment on above: Performed By: #### L AB17, TXD145, JYS744, VOP445, LAB62 ####Low Altitude Air Defense Officer: LIDIA NEIL ([id number])[facility])[address] [place] [address] Phosphate [Mass/Vol] 3.1 mg/dL Normal 2.5-4.5 [facility] Comment on above: Performed By: #### L AB17, [id number], HBQ001, JOV460 ####Low Altitude Air Defense Officer: FINN BONNER ([id number])[facility] JOSSE[facility]N (SWRLAB)[address] [place] [address] PROCALCITONIN TESTon 023 PROCALCITONIN 0.11 ng/mL High 0.00-0.09 [facility] Comment on above: Result Comment: NATALIE R COMMENTS:PCT <0.50 = Low risk of severe sepsis and/or septic shock.PCT >2.00 = High risk of severe sepsis and/or septic shock. Performed By: #### L [id number] ####Low Altitude Air Defense Officer: FINN BONNER ([id number])[facility] (SACLAB)[address] [place] [address] [place] PROTIME AND APTTon aPTT Coag (Bld) [Time] 28.1 s Normal 20.0-30.5 [facility] Comment on above: Performed By: #### L [id number] ####Low Altitude Air Defense Officer: LIDIA NEIL ([phone])[facility])[address] [place] [address] INR Coag (PPP) [Relative time] 1.0 {INR} Normal 0.9-1.1 [facility] Comment on above: Result Comment: Asael [...] prevent Myocardial Infarction Performed By: #### L [id number] ####Low Altitude Air Defense Officer: LIDIA NEIL ([id number])[facility])[address] [place] [address] PT Coag (PPP) [Time] 10.8 s Normal 9.0-12.0 [facility] Comment on above: Performed By: #### L [id number] ####Low Altitude Air Defense Officer: LIDIA NEIL ([id number])[facility])[address] [place] [address] SARS-COV-2, FLU A/B, AND RSV COMBOon 01-26-2023 SARS-CoV-2 (COVID-19) RNA DESTINY+probe Ql (Unsp spec) Normal [facility] Comment on above: Performed By: #### L [id number] ####Low Altitude Air Defense Officer: FINN BONNER ([id number])[facility] JOSSE[facility] (SWRLAB)[address] [place] [address] THYROID STIMULATING HORMONEo n 01-26-2023 THYROID STIMULATING HORMONE 0.183 uIU/mL Low 0.465-4.680 [facility] Comment on above: Performed By: #### L AB747, GXV364 ####Low Altitude Air Defense Officer: LIDIA NEIL ([id number])[facility] (SBHLAB)[address] [place] [address] [place] TRIGLYCERIDESon 01-26-2023 Triglyceride [Mass/Vol] 124 mg/dL Normal <150 [facility] Comment on above: Performed By: #### L AB17, DDA520, IJU422, LUN383, LAB62 ####Low Altitude Air Defense Officer: LIDIA NEIL ([phone])[facility] (SBHLAB)[address] [place] [address] [place] TROPONIN Ion 01-26-2023 Troponin I.cardiac [Mass/Vol] ng/mL Normal <0.034 [facility] Comment on above: Result Comment: NATALIE Doss COMMENTS:Patients with high levels of Biotin oral intake (ie >5 mg/day) may have falsely decreased Troponin levels. Performed By: #### L AB747, AFJ503 ####Low Altitude Air Defense Officer: LIDIA NEIL ([phone])[facility] (SBHLAB)[address] TROPONIN, WITH SERIAL REFLEX on 01-26-2023 Troponin I.cardiac [Mass/Vol] ng/mL Normal <0.034 [facility] Comment on above: Result Comment: NATALIE Doss COMMENTS:Patients with high levels of Biotin oral intake (ie >5 mg/day) may have falsely decreased Troponin levels. Performed By: #### L AB17, [id number], HMC180, QCN922 ####Low Altitude Air Defense Officer: FINN BONNER ([id number])[facility] (SWRLAB)[address] [place] [address] UNCONFIRMED DRUG SCREENon Amphetamines Ql (U) Negative Normal Negative [facility] Comment on above: Performed By: #### L AB389, [id number] ####Low Altitude Air Defense Officer: FINN BONNER ([id number])[facility] (SACLAB)[address] [place] [address] BARBITURATES Negative Normal Negative [facility] Comment on above: Performed By: #### L AB389, [id number] ####Low Altitude Air Defense Officer: FINN BONNER ([id number])[facility] (SACLAB)[address] [place] [address] Benzodiazepines Ql (U) Negative Normal Negative [facility] Comment on above: Performed By: #### L AB389, [id number] ####Low Altitude Air Defense Officer: FINN BONNER ([phone])[facility] (SACLAB)[address] [place] [address] Cocaine Ql (U) Negative Normal Negative [facility] Comment on above: Performed By: #### L AB389, [id number] ####Low Altitude Air Defense Officer: FINN BONNER ([id number])[facility] ([facility] [place] [address] Methadone Ql (U) Negative Normal Negative [facility] Comment on above: Performed By: #### L AB389, [id number] ####Low Altitude Air Defense Officer: FINN BONNER ([id number])[facility] (SACLAB)[address] [place] [address] Opiates Ql (U) Positive Normal Negative [facility] Comment on above: Performed By: #### L AB389, [id number] ####Low Altitude Air Defense Officer: FINN BONNER ([id number])[facility] ([facility] [place] [address] OXYCODONE/OXYMORPHONE Negative Normal Negative [facility] Comment on above: Performed By: #### L AB389, [id number] ####Low Altitude Air Defense Officer: FINN BONNER ([id number])[facility] ([facility] [place] [address] PCP Negative Normal Negative [facility] Comment on above: Result [...] non-forensic procedures. Performed By: #### L AB389, [id number] ####Low Altitude Air Defense Officer: FINN BONNER ([id number])[facility] ([address] XR Chest Single viewon 01-26 FINDINGS/IMPRESSION: Limitations: Patient positioning/field-of-v iew. Right hemithorax not included on the ncbbs-zk-rser Lines, tubes, and devices: Endotracheal tube has its tip about 6.5 cm above the chun. NG tube has its tip likely within the stomach, distal portion not included on the xxzkf-io-xcgv. Left-sided chest tube appears slightly retracted with [...] Electronically Signed Date/Time: 01/26/2023 6:15 PM EST [employer] SYSTEM Patient Name: LUIS STEELE : 1970 Exam Date/Time: 01/26/2023 17:07 Procedure: XR CHEST 1 VIEW Ordering Provider: CUNHA AUSTIN Reason For Exam: INTUBATION CHEST - PORTABLE: CLINICAL INDICATION: Intubation. TECHNIQUE: Portable AP COMPARISON: Radiographs earlier the same day 4:25 PM. [facility] [employer] Daysi Gillette MD - 01/26/2023 Patient Name: LUIS STEELE : 1970 Exam Date/Time: 01/26/2023 17:07 Procedure: XR CHEST 1 VIEW Ordering Provider: CUNHA AUSTIN Reason For Exam: INTUBATION CHEST - PORTABLE: CLINICAL INDICATION: Intubation. TECHNIQUE: Portable AP COMPARISON: Radiographs earlier the same day 4:25 PM. IMPRESSION: FINDINGS/IMPRESSION: Limitations: Patient positioning/field-of-v iew. Right hemithorax not included on the dehhh-ta-vhgt Lines, tubes, and devices: Endotracheal tube has its tip about 6.5 cm above the chun. NG tube has its tip likely within the stomach, distal portion not included on the mphik-cl-fpys. Left-sided chest tube appears slightly retracted with [...] Electronically Signed Date/Time: 01/26/2023 6:15 PM EST [employer] Radiology Study observation (narrative) [facility] [employer] 1. New endotracheal tube in satisfactory position. 2. Left-sided chest tube. 3. No residual left-sided pneumothorax. Report Dictated on Electronically Signed By: Jordin Dalton MD Electronically Signed Date/Time: 01/26/2023 4:30 PM [employer] Patient Name: LUIS STEELE : 1970 Exam [...] in place. No residual pneumothorax is appreciated. [facility] [employer] Jordin Dalton MD - 01/26/2023 Patient Name: [...] MD Electronically Signed Date/Time: 01/26/2023 4:30 PM [facility] Radiology Study observation (narrative) [facility] FINDINGS/IMPRESSION: 1. Lines/Tubes/Devices/Patiño rdware: None. 2. [...] MD Electronically Signed Date/Time: 01/26/2023 3:35 PM [facility] RADIOLOGY SYSTEM Patient Name: LUIS STEELE : [...] was obtained and reviewed. Special views: None. [facility] RADIOLOGY SYSTEM Maurice Hernandez MD - 01/26/2023 [facility]: [facility] 1970 [id number] Exam Date/Time: 01/26/2023 15:10 Procedure: XR CHEST [...] Electronically Signed Date/Time: 01/26/2023 3:35 PM EST [employer] Radiology Study observation (narrative) [employer] XR Chest Single viewOrdered By: Daysi Gillette on 01-26-2023 [employer] Work Phone: XR Chest Single viewOrdered By: Jordin Dalton on 01-26-2023 [employer] Work Phone: XR Chest Single viewOrdered By: Maurice Hernandez on 01-26-2023 [employer] Phone: BASIC METABOLIC PANELon - Anion gap [Moles/Vol] 3 mmol/L Normal 3-13 [facility] Comment on above: Performed By: #### L AB747, HIH606, LAB15 ####Low Altitude Air Defense Officer: FINN BONNER ([phone])[facility] (SWRLAB)[address] Calcium [Mass/Vol] 9.3 mg/dL Normal 8.4-10.4 [facility] Comment on above: Performed By: #### L AB747, AAW807, LAB15 ####Low Altitude Air Defense Officer: FINN BONNER ([phone])[facility] DE [facility] CRUZGERSON [facility] (SWRLAB)[address] [place] [address] [place] Chloride [Moles/Vol] 103 mmol/L Normal 98-107 [facility] Comment on above: Performed By: #### L AB747, AMX637, LAB15 ####Low Altitude Air Defense Officer: FINN BONNER ([phone])[facility]ZG[facility] (SWRLAB)[address] [place] [address] [place] CO2 [Moles/Vol] 30 mmol/L Normal 22-30 [facility] Comment on above: Performed By: #### L AB747, TQI659, LAB15 ####Low Altitude Air Defense Officer: FINN BONNER ([phone])[facility] (SWRLAB)[address] [place] [address] [place] Creatinine [Mass/Vol] 0.89 mg/dL Normal 0.66-1.25 [facility] Comment on above: Performed By: #### L AB747, TPJ395, LAB15 ####Low Altitude Air Defense Officer: FINN BONNER ([phone])[facility]ZG[facility] (SWRLAB)[address] [place] [address] GLOMERULAR FILTRATION RATE ML/MIN/1.73 SQ M.PREDICTED >90.0 Normal >60.0 [facility] Comment on above: Result Comment: Calc ulation based on the Chronic Kidney Disease Epidemiology Collaboration (CKD-EPI) equation refit without adjustment for race Performed By: #### L AB747, [id number], LAB15 ####Low Altitude Air Defense Officer: FINN BONNER ([phone])[facility] (SWRLAB)[address] [place] [address] [place] Glucose [Mass/Vol] 159 mg/dL High 70-100 [facility] Comment on above: Performed By: #### L AB747, [id number], LAB15 ####Low Altitude Air Defense Officer: FINN BONNER ([phone])[facility] (SWRLAB)[address] Potassium [Moles/Vol] 4.2 mmol/L Normal 3.5-5.1 [facility] Comment on above: Performed By: #### L AB747, MTT806, LAB15 ####Low Altitude Air Defense Officer: FINN BONNER ([phone])[facility] (SWRLAB)[address] [place] [address] [place] Sodium [Moles/Vol] 137 mmol/L Normal 135-145 [facility] Comment on above: Performed By: #### L AB747, [id number], LAB15 ####Low Altitude Air Defense Officer: FINN BONNER ([phone])[facility] (SWRLAB)[address] [place] [address] Urea nitrogen [Mass/Vol] 21 mg/dL High 9-20 [facility] Comment on above: Performed By: #### L AB747, TPK550, LAB15 ####Low Altitude Air Defense Officer: FINN BONNER ([phone])[facility] (SWRLAB)[address] [place] [address] BLOOD GAS, VENOUS (SWR AND S HC)on 12-04-2022 BASE EXCESS (MMOL/L) IN VENOUS BLOOD 4.0 mmol/L High -3.0-3.0 [facility] Comment on above: Performed By: #### L [id number] ####Low Altitude Air Defense Officer: FINN BONNER ([phone])[facility] (SWRLAB)[address] CARBON DIOXIDE (MM HG) IN VENOUS BLOOD 50 mm(Hg) Normal 40-55 [facility] Comment on above: Performed By: #### L [id number] ####Low Alt[employer] Air Defense Officer: FINN BONNER ([phone])[facility] (SWRLAB)[address] [place] [address] [place] CO2 [Moles/Vol] 31.0 mmol/L High 24.0-28.0 [facility] Comment on above: Performed By: #### L [id number] ####Low Altitude Air Defense Officer: FINN BONNER ([phone])[facility] (SWRLAB)[address] [place] [address] [place] HCO3 (Bld) [Moles/Vol] 29.1 mmol/L High 23.0-27.0 [facility] Comment on above: Performed By: #### L [id number] ####[employer] Alt[employer] Air Defense Officer: FINN BONNER ([phone])[facility] (SWRLAB)[address] OXYGEN (MM HG) IN VENOUS BLOOD 99 mm(Hg) Normal [facility] Comment on above: Performed By: #### L [id number] ####[employer] Officer: FINN BONNER ([phone])[facility] NIETO RITTMAN (SWRLAB)[address] OXYGEN SATURATION (%) IN VENOUS BLOOD 97.0 % High 60.0-80.0 [facility] Comment on above: Performed By: #### L [id number] ####[employer] Officer: FINN BONNER ([phone])[facility] NIETO RITTMAN (SWRLAB)[address] [place] [address] [place] pH (Bld) 7.373 [pH] Normal 7.310-7.410 [facility] Comment on above: Performed By: #### L [id number] ####[employer] Officer: FINN BONNER ([id number])SUMMElio NIETO RITTMAN (SWRLAB)[address] SOURCE OF OXYGEN Nasal cannula Normal [facility] Comment on above: Result Comment: 4 L Performed By: #### L [id number] ####[employer] Alt[employer] Officer: FINN BONNER ([id number])[facility] JOSSELYN (SWRLAB)[address] Basic metabolic 1998 panelon 12-04-2022 Anion gap [Moles/Vol] 3 mmol/L 3 - 13 mmol/L [facility] Calcium [Mass/Vol] 9.3 mg/dL 8.4 - 10. 4 mg/dL [facility] Chloride [Moles/Vol] 103 mmol/L 98 - 10 7 mmol/L [facility] CO2 [Moles/Vol] 30 mmol/L 22 - 30 mmol/L [facility] Creatinine [Mass/Vol] 0.89 mg/dL 0.66 - 1.25 mg/dL [facility] GFR/1.73 sq M.predicted MDRD (S/P/Bld) [Vol rate/Area] - PINF [facility] Comment on above: Calculation based on the Chronic Kidney Disease Epidemiology Collaboration (CKD-EPI) equation refit without adjustment for race Glucose [Mass/Vol] 159 mg/dL High 70 - 100 mg/dL [facility] Interpretation and review of laboratory results Abnormal [facility] Potassium [Moles/Vol] 4.2 mmol/L 3.5 - 5.1 mmol/L [facility] Sodium [Moles/Vol] 137 mmol/L 135 - 145 mmol/L [facility] Urea nitrogen [Mass/Vol] 21 mg/dL High 9 - 20 mg/dL [facility] CBC (HEMOGRAM)on 12-04-2022 Erythrocyte distribution width (RBC) [Ratio] 23.9 % High 11.5-14.5 [facility] Comment on above: Performed By: #### L [id number] ####[employer] Alt[employer] Officer: FINN BONNER ([id number])[facility] JOSSELYN (SWRLAB)[address] ERYTHROCYTE MEAN CORPUSCULAR HEMOGLOBIN CONCENTRATION (G/DL) BY AUTOMATED 29.8 % Low 32.0-36.0 [facility] Comment on above: Performed By: #### L [id number] ####[employer] Alt[employer] Officer: FINN BONNER ([id number])CAROLINA ZACARIASTMAN (SWRLAB)[address] [place] [address] Hematocrit (Bld) [Volume fraction] 34.9 % Low 40.0-52.0 [facility] Comment on above: Performed By: #### L [id number] ####[employer] Officer: FINN BONNER ([id number])[facility] ZACARIASTMAN (SWRLAB)[address] [place] [address] Hemoglobin (Bld) [Mass/Vol] 10.4 g/dL Low 13.0-18.0 [facility] Comment on above: Performed By: #### L [id number] ####[employer] Officer: FINN BONNER ([id number])[facility] ZACARIASTMAN (SWRLAB)[address] [place] [address] MCH (RBC) [Entitic mass] 24.5 pg Low 26.0-34.0 [facility] Comment on above: Performed By: #### L [id number] ####[employer] Officer: FINN BONNER ([id number])[facility]ITAL[facility]io ZACARIASTMAN (SWRLAB)[address] [place] [address] MCV (RBC) [Entitic vol] 82.3 fL Normal 80.0-98.0 [facility] Comment on above: Performed By: #### L [id number] ####[employer] Officer: FINN BONNER ([id number])[facility] NIETO RITTMAN (SWRLAB)[address] [place] [address] Platelet mean volume (Bld) [Entitic vol] 8.9 fL Normal 7.4-12.4 [facility] Comment on above: Performed By: #### L [id number] ####[employer] Officer: FINN BONNER ([id number])[facility]ITALElio ZACARIASTMAN (SWRLAB)[address] [place] [address] [place] PLATELETS (10*3/UL) IN BLOOD AUTOMATED COUNT 435 10*3/uL Normal 140-440 [facility] Comment on above: Performed By: #### L [id number] ####[employer] Alt[employer] Officer: FNIN BONNER ([id number])[facility]io ZACARIASTMAN (SWRLAB)[address] [place] [address] RBC (Bld) [#/Vol] 4.24 10*6/uL Low 4.40-5.90 [facility] Comment on above: Performed By: #### L [id number] ####[employer] Officer: FINN BONNER ([id number])[facility] GERSON DEANNTMAN (SWRLAB)[address] [place] [address] WBC (Bld) [#/Vol] 10.7 10*3/uL Normal 3.6-10.7 [facility] Comment on above: Performed By: #### L [id number] ####[employer] Officer: FINN BONNER ([id number])[facility]ITAL[facility] ZACARIASTMAN (SWRLAB)[address] [place] [address] CBC panel Auto (Bld)Ordered By: Geno Pardo on 12-04-2022 Erythrocyte distribution width (RBC) [Ratio] 23.9 % High 11.5 - 14.5 % [facility] Hematocrit (Bld) [Volume fraction] 34.9 % Low 40.0 - 52.0 % [facility] Hemoglobin (Bld) [Mass/Vol] 10.4 g/dL Low 13.0 - 18.0 g/dL [facility] Interpretation and review of laboratory results Abnormal [facility] MCH (RBC) [Entitic mass] 24.5 pg Low 26.0 - 34.0 pg [facility] MCHC (RBC) [Mass/Vol] 29.8 % Low 32.0 - 36.0 % [facility] MCV (RBC) [Entitic vol] 82.3 fL 80.0 - 98.0 fL [facility] Platelet mean volume (Bld) [Entitic vol] 8.9 fL 7.4 - 12.4 fL [facility] Platelets (Bld) [#/Vol] 435 10*3/uL 140 - 440 10*3/uL [facility] RBC (Bld) [#/Vol] 4.24 10*6/uL Low 4.40 - 5.9 0 10*6/uL [facility] WBC (Bld) [#/Vol] 10.7 10*3/uL 3.6 - 10.7 10*3/uL [facility] ECG 12-LEADon 12-04-2022 ECG 12-LEAD IMPRESSION: Sinus tachycardia Compared to ECG 07/01/2021 05:12:25 Atrial abnormality no longer present T-wave abnormality no longer present Electronically Signed On 12-04-2022 3:23:19 EDT by Kelton Enrique Normal [facility] ED Nursing Noteon 12-04-2022 ED Nursing Note IV started by [facility] to Left hand by thumb dc'd by us. IV would not flush properly or draw back. IV cather intact. Site dressed with gauze & secured with tape. Luis Antonio Manuel 12/04/22 0237 Normal [facility] ED Nursing Note Pt comes in VIA squa d to room 6 for shortness of breath, Pt was initially 86 RA prior to squad arrived and they gave him DuoNeb and a non-rebreather and pt incresased to 99 on 4L NC. Pt complains of chest tightness and EKG done and MD at bedside. Normal [facility] ED Provider Noteon ED Provider Note Normal [facility] Laboratory - Chemistry and C hemistry - challengeon 12-04-2022 Troponin I.cardiac [Mass/Vol] ng/mL NINF - 0.034 ng/mL [facility] CO2 [Moles/Vol] 31.0 mmol/L High 24.0 - 28.0 mmol/L [facility] HCO3 (Bld) [Moles/Vol] 29.1 mmol/L High 23.0 - 27.0 mmol/L [facility] Oxygen (Bld) [Partial pressure] 99 mm[Hg] mm(Hg) [facility] pH (Bld) 7.373 [pH] 7.310 - 7.410 [facility] Laboratory - Microbiology an d Antimicrobial susceptibilityon 12-04-2022 FLUAV RNA DESTINY+probe Ql (Resp) Not detected Not Detected [facility] FLUBV RNA DESTINY+probe Ql (Resp) Not detected Not Detected [facility] RSV RNA DESTINY+probe Ql (Resp) Not detected Not Detected [facility] SARS-CoV-2 (COVID-19) RNA DESTINY+probe Ql (Resp) Not detected Not Detected [facility] SARS-CoV-2 (COVID-19) RNA DESTINY+probe Ql (Unsp spec) Methodology: real-time, RT-PCR The SARS-CoV-2, Flu A/B, and RSV Combo assay is intended for in vitro diagnostic use under the FDA Emergency Use Authorization (EUA). This test has not been FDA cleared or approved. In compliance with this authorization, please visit www.fda.gov/media/4226 35/download or www.fda.gov/media/1427 36/download to access the applicable information sheets. [facility] NT PRO BNPon 12-04-2022 NT PRO BNP <20 Normal <20-300 [facility] Comment on above: Performed By: #### L [id number], [id number], [id number] ####[employer] Altitude Air Defense Officer: FINN BONNER ([phone])[facility] (SWRLAB)[address] [place] [address] Natriuretic peptide B [Mass/ Vol]on 12-04-2022 Natriuretic peptide B (Bld) [Mass/Vol] pg/mL <20 - 300 pg/mL [facility] No Panel Informationon 12-04 P [place] 77 degrees [facility] [place] Interval 137 ms [facility] QRS [place] 80 degrees [facility] QRSD Interval 85 ms [facility] QT Interval 318 ms [facility] QTC Interval 428 ms [facility] T Wave [place] 73 degrees [facility] Sinus tachycardia Compared to ECG 07/01/2021 05:12:25 Atrial abnormality no longer present T-wave abnormality no longer present Electronically Signed On 12-04-2022 3:23:19 EDT by Kelton Enrique CV Kelton Smith MD - 12/04/2022 IMPRESSION: Sinus tachycardia Compared to ECG 07/01/2021 05:12:25 Atrial abnormality no longer present T-wave abnormality no longer present Electronically Signed On 12-04-2022 3:23:19 EDT by Kelton Enrique [facility] Interpretation and review of laboratory results Normal [facility] BASE EXCESS 4.0 mmol/L High -3.0 - 3.0 mmol/L [facility] Interpretation and review of laboratory results Abnormal [facility] pCO2 50 [facility] Source Of Oxygen Nasal cannula [facility] Comment on above: 4 L [facility] SARS-COV-2, FLU A/B, AND RSV COMBOon 12-04-2022 SARS-CoV-2 (COVID-19) RNA DESTINY+probe Ql (Unsp spec) Normal [facility] Comment on above: Performed By: #### L [id number] ####Low Alt[employer] Air Defense Officer: FINN BONNER ([id number])[facility] GERSON GameyolaASIA (CrambuRLAB)[address] [place] [address] SARS-CoV-2, Flu A/B, and RSV Comboon 12-04-2022 Interpretation and review of laboratory results Normal [facility] TROPONIN Ion 12-04-2022 Troponin I.cardiac [Mass/Vol] ng/mL Normal <0.034 [facility] Comment on above: Result Comment: ORDE R COMMENTS:Patients with high levels of Biotin oral intake (ie >5 mg/day) may have falsely decreased Troponin levels. Performed By: #### L [id number], [id number], [id number] ####[employer] Alt[employer] Officer: FINN BONNER ([id number])[facility] GERSONSha-ShaAN (SWRLAB)[address] [place] [address] Troponin I.cardiac [Mass/Vol ]on 12-04-2022 Patients with high levels of Biotin oral intake (ie >5 mg/day) may have falsely decreased Troponin levels. [facility] Vital signson 12-04-2022 Heart rate 108 /min bpm [facility] Oxygen saturation in Blood 97.0 % High 60.0 - 80.0 % [facility] XR Chest Single viewon 12-04 Postoperative change s on the right. Chronic obstructive pulmonary disease Report Dictated on Electronically Signed By: Jordin Urrutia MD Electronically Signed Date/Time: 12/04/2022 3:50 AM EDT [facility] Patient Name: LUIS STEELE : 1970 [...] sharp. Old left rib fracture is noted. [facility] Jordin Urrutia MD - 12/04/2022 Patient [...] Electronically Signed Date/Time: 12/04/2022 3:50 AM EDT [facility] Radiology Study observation (narrative) [facility] [employer] XR Chest Single viewOrdered By: Jordin Urrutia on 12-04-2022 [employer] Work Phone: ED Nursing Noteon 11-27-2022 ED Nursing Note Patient provided wit h new set of scrub pants as he spit up on his pants. Patient given urinal to void. Maeve Jauregui RN 11/27/222045 Normal [facility] ED Nursing Note Normal [facility] ED Provider Noteon 3 ED Provider Note Normal [facility] XR Chest Single viewon 11-27 1. Stable examination. No acute findings. Report Dictated on Electronically Signed By: Hamlet Yoder MD Electronically Signed Date/Time: 11/27/2022 8:56 PM EDT [facility] Patient Name: LUIS STEELE : 1970 Exam [...] Clips again project over right superolateral hemithorax. [facility] Hamlet Yoder MD - 11/27/2022 Patient Name: [...] Electronically Signed Date/Time: 11/27/2022 8:56 PM EDT [facility] Radiology Study observation (narrative) [facility] [employer] XR Chest Single viewOrdered By: Hamlet Yoder on 11-27-2022 [employer] Work Phone: Absolute lymphocyte countOrd ered By: Cuca Flood on 11-14-2022 Lymphocytes Auto (Unsp spec) [#/Vol] 2.29 10*3/uL 0.83-4.51 [facility] Assessment of wrist artery p atency prior to arterial punctureOrdered By: Cuca Flood on 11-14-2022 Arterial patency Wrist artery --pre arterial puncture N/A [facility] Base excessOrdered By: Cuca Flood on 11-14-2022 Base excess Calc (BldV) [Moles/Vol] 1 mmol/L -2-2 [facility] Basophil percentageOrdered B y: Cuca Flood on 11-14-2022 Basophil percentage 26.2 mmol/L 22-26 [facility] Basophils/100 WBC (Bld) 72 % 95-99 [facility] Basophils/100 WBC (Bld) 0.5 % 0-1 [facility] Chloride [Moles/Vol] 107 mmol/L 98-107 [facility] Eosinophils/100 WBC (Bld) 0.4 % 0-5 [facility] Glucose [Mass/Vol] 97 mg/dL 74-106 [facility] Neutrophils (Bld) [#/Vol] 6.0 10*3/uL 2.0-7.7 [facility] Neutrophils/100 WBC (Bld) 61.6 % 47-70 [facility] Potassium [Moles/Vol] 3.8 mmol/L 3.5-5.1 [facility] Sodium [Moles/Vol] 140 mmol/L 136-145 [facility] WBC (Bld) [#/Vol] 9.7 10*3/uL 4.4-11.0 [facility] Blood erythrocytes count (nu mber/volume)Ordered By: Cuca Flood on 11-14-2022 RBC (Bld) [#/Vol] 3.41 10*6/uL 4.6-6.2 [facility] Blood hemoglobin measurement (mass/volume)Ordered By: Cuca Flood on 11-14-2022 Hemoglobin (Bld) [Mass/Vol] 7.5 g/dL 13.0-16.5 [facility] Blood lymphocytes/100 leukoc ytesOrdered By: Cuca Flood on 11-14-2022 Lymphocytes/100 WBC (Bld) 23.5 % 19-41 [facility] Blood manual differential co mment interpretation (narrative result)Ordered By: Cuca Flood on 11-14-2022 Manual differential comment Shay (Bld) [Interp] SCANNED [facility] Blood monocytes/100 leukocyt esOrdered By: Cuca Flood on 11-14-2022 Monocytes/100 WBC (Bld) 12.5 % 0-10 [facility] Blood platelet mean volumeOr dered By: Cuca Flood on 11-14-2022 Platelet mean volume (Bld) [Entitic vol] 9.5 fL 6.2-12.0 [facility] CO2 (BldA) [Partial pressure ]Ordered By: Cuca Flood on 11-14-2022 CO2 (Bld) [Partial pressure] 47.1 mm[Hg] 35-45 [facility] Determination of erythrocyte mean corpuscular volume (MCV)Ordered By: Cuca Flood on 11-14-2022 MCV (RBC) [Entitic vol] 78.3 fL 80-94 [facility] HCO3 (BldA) [Moles/Vol]Order ed By: Cuca Flood on 11-14-2022 HCO3 (Bld) [Moles/Vol] 29 mmol/L 22-26 [facility] Hematocrit Auto (Bld) [Volum e fraction]Ordered By: Cuca Flood on 11-14-2022 Hematocrit (Bld) [Volume fraction] 26.7 % 40-54 [facility] Hypochromatic red blood cell detectionOrdered By: Cuca Flood on 11-14-2022 Hypochromia Ql (Bld) 1+ [facility] Laboratory - Chemistry and C hemistry - challengeOrdered By: Cuca Flood on 11-14-2022 CO2 [Moles/Vol] 30 mmol/L 23-33 [facility] CO2 [Moles/Vol] 32.0 mmol/L 21.0-32.0 [facility] Urea nitrogen/Creatinine [Mass ratio] 15.1 mg/mg 10-20 [facility] Laboratory - Hematology and Cell countsOrdered By: Cuca Flood on 11-14-2022 Anisocytosis Ql (Bld) 2+ [facility] Erythrocyte distribution width (RBC) [Entitic vol] 57.7 fL 35.1-43.9 [facility] Erythrocyte distribution width (RBC) [Ratio] 20.5 % 11.6-14.6 [facility] Immature granulocytes/100 WBC (Bld) 1.500 % 0.0-0.9 [facility] Comment on above: IG% - Immature Granu locytes (promyelocytes, myelocytes and metamyelocytes) > 1% indicates that a LEFT SHIFT is Present. MCH (RBC) [Entitic mass] 22.0 pg 27.0-32.0 [facility] Nucleated RBC/100 WBC (Bld) [Ratio] 1.3 % 0-5 [facility] MCHC Auto (RBC) [Mass/Vol]Or dered By: Cuca Flood on 11-14-2022 MCHC (RBC) [Mass/Vol] 28.1 g/dL 32-36 [facility] Macrocytes detectionOrdered By: Cuca Flood on 11-14-2022 Macrocytes Ql (Bld) 1+ [facility] No Panel InformationOrdered By: Cuca Flood on 11-14-2022 Bed Mix Venous Bld PCO2 at Pat Temp 49.5 mmHg 41-51 [facility] Blood Gas Liter Flow 2.0 [facility] Blood Gas Specimen Type AG [facility] Oxygen Delivery Device Cannula [facility] Venous Blood Base Excess 4 mmol/L -1.0-3.5 [facility] Blood Gas Sample Site R Radial [facility] Blood Gas Total CO2 28 mmol/L [facility] Estimated Creatinine Clearance Calc 84.17 ml/min [facility] Estimated GFR (MDRD) Amer 94 mL/min >60 [facility] Comment on above: GFR Calc Estimated GFR (MDRD) Non-Af Amer 78 mL/min >60 [facility] Comment on above: Non- GFR Calc Oxygen (BldA) [Partial press ure]Ordered By: Cuca Flood on 11-14-2022 Oxygen (Bld) [Partial pressure] 40 mmHG 75-100 [facility] PO2 venousOrdered By: Cuca Flood on 11-14-2022 Oxygen (BldV) [Partial pressure] 199 mm[Hg] 25-40 [facility] Platelets bldOrdered By: Mike Flood on 11-14-2022 Platelets (Bld) [#/Vol] 451 10*3/uL 150-450 [facility] Serum or plasma calcium david urement (mass/volume)Ordered By: Cuca Flood on 11-14-2022 Calcium [Mass/Vol] 8.0 mg/dL 8.5-10.1 [facility] Serum or plasma creatinine m easurement (mass/volume)Ordered By: Cuca Flood on 11-14-2022 Creatinine [Mass/Vol] 1.06 mg/dL 0.70-1.30 [facility] Comment on above: The validity of the calculated GFR & GFRAA in patients over 70 years has not been determined. Clinical correlation is essential. Serum or plasma urea nitroge n measurement (mass/volume)Ordered By: Cuca Flood on 11-14-2022 Urea nitrogen [Mass/Vol] 16 mg/dL 7-18 [facility] Thin prep Papanicolaou smear with manual screeningOrdered By: Cuca Flood on 11-14-2022 Thin prep Papanicolaou smear with manual screening 1+ [facility] Thin prep Papanicolaou smear with manual screening 1 5-15 [facility] Vital signsOrdered By: Cuca Flood on 11-14-2022 Oxygen saturation in Blood 100 % 50-70 [facility] pH measurementOrdered By: Hermann Flood on 11-14-2022 pH (Unsp spec) 7.37 [pH] 7.32-7.42 [facility] pH (Unsp spec) 7.35 [pH] 7.35-7.45 [facility] Hemoglobin in reticulocytes (mass per reticulocyte)Ordered By: Adán Berg on 11-13-2022 Hemoglobin (Reticulocytes) [Entitic mass] 16.6 pg 30-35 [facility] INR in Blood by Coagulation assayOrdered By: Ulysses Seth on 11-13-2022 INR Coag (Bld) [Relative time] 1.1 {INR} [facility] Iron measurement (mass/mass) Ordered By: Adán Berg on 11-13-2022 Iron (Unsp spec) [Mass/Mass] 13 ug/dL 65-175 [facility] Laboratory - CoagulationOrde red By: Ulysses Seth on 11-13-2022 aPTT Coag (Bld) [Time] 29.1 s 24.1-36.2 [facility] PT Coag (PPP) [Time] 14.3 s 11.7-14.9 [facility] No Panel InformationOrdered By: Adán Berg on 11-13-2022 Immature Reticulocyte Fraction 26.00 % 3.00-15.90 [facility] Reticulocyte Count 1.27 % 0.5-1.5 [facility] Total Iron Binding Capacity 583 ug/dL 250-450 [facility] Serum or plasma ferritin papi surement (mass/volume)Ordered By: Adán Berg on 11-13-2022 Ferritin [Mass/Vol] 3 ng/mL 26-388 [facility] Serum or plasma folate measu rement (mass/volume)Ordered By: Adán Berg on 11-13-2022 Folate [Mass/Vol] 6.50 ng/mL 3.1-55.4 [facility] Serum or plasma iron saturat ion measurement (mass fraction)Ordered By: Adán Berg on 11-13-2022 Iron saturation [Mass fraction] 2.2 % 15.0-55.0 [facility] Basophil percentageOrdered B y: Kody Jj on 11-12-2022 Bilirubin [Mass/Vol] 0.20 mg/dL 0.20-1.00 [facility] Comment on above: For patients on eltr ombopag therapy, use of Dimension [place] TBIL is not recommended. Protein [Mass/Vol] 7.2 g/dL 6.4-8.2 [facility] Laboratory - Chemistry and C hemistry - challengeOrdered By: Kody Jj on 11-12-2022 ALP [Catalytic activity/Vol] 78 U/L 45-117 [facility] ALT [Catalytic activity/Vol] 23 U/L 16-61 [facility] Globulin (S) [Mass/Vol] 3.6 g/dL 2.2-4.2 [facility] No Panel InformationOrdered By: Kody Jj on 11-12-2022 Troponin I High Sensitivity 4 pg/mL 3.0-78.0 [facility] Comment on above: Please Note: New Krystle t Units and Gender Specific Reference Ranges. For more information see Policy Stat Procedure [place] High Sensitivity Troponin (TNIH) and attachments. Review by pathologistOrdered By: Kody Jj on 11-12-2022 Pathologist review Shay (Unsp spec) [Interp] May foll [facility] Serum or plasma albumin david urement (mass/volume)Ordered By: Kody Jj on 11-12-2022 Albumin [Mass/Vol] 3.6 g/dL 3.2-5.0 [facility] Serum or plasma albumin/glob ulin mass ratioOrdered By: Kody Jj on 11-12-2022 Albumin/Globulin [Mass ratio] 1.0 {ratio} 0.9-2.4 [facility] Thin prep Papanicolaou smear with manual screeningOrdered By: Kody Jj on 11-12-2022 Thin prep Papanicolaou smear with manual screening 8 U/L 15-37 [facility] Absolute lymphocyte countOrd ered By: Byron Vivas on 10-19-2022 Lymphocytes Auto (Unsp spec) [#/Vol] 1.79 10*3/uL 0.83-4.51 [facility] Basophil percentageOrdered B y: Byron Vivas on 10-19-2022 Basophils/100 WBC (Bld) 0.3 % 0-1 [facility] Chloride [Moles/Vol] 105 mmol/L 98-107 [facility] Eosinophils/100 WBC (Bld) 0.9 % 0-5 [facility] Glucose [Mass/Vol] 115 mg/dL 74-106 [facility] Comment on above: Fasting Glucose resu lt from 100 to 125 mg/dL suggests IMPAIRED HOMEOSTASIS per A.D.A. criteria. Neutrophils (Bld) [#/Vol] 7.5 10*3/uL 2.0-7.7 [facility] Neutrophils/100 WBC (Bld) 71.2 % 47-70 [facility] Potassium [Moles/Vol] 3.4 mmol/L 3.5-5.1 [facility] Sodium [Moles/Vol] 138 mmol/L 136-145 [facility] WBC (Bld) [#/Vol] 10.5 10*3/uL 4.4-11.0 [facility] Blood erythrocytes count (nu mber/volume)Ordered By: Byron Vivas on 10-19-2022 RBC (Bld) [#/Vol] 4.43 10*6/uL 4.6-6.2 [facility] Blood hemoglobin measurement (mass/volume)Ordered By: Byron Vivas on 10-19-2022 Hemoglobin (Bld) [Mass/Vol] 9.0 g/dL 13.0-16.5 [facility] Blood lymphocytes/100 leukoc ytesOrdered By: Byron Vivas on 10-19-2022 Lymphocytes/100 WBC (Bld) 17.0 % 19-41 [facility] Blood monocytes/100 leukocyt esOrdered By: Byron Vivas on 10-19-2022 Monocytes/100 WBC (Bld) 9.6 % 0-10 [facility] [facility] Blood platelet mean volumeOr dered By: Byron Vivas on 10-19-2022 Platelet mean volume (Bld) [Entitic vol] 9.6 fL 6.2-12.0 [facility] Determination of erythrocyte mean corpuscular volume (MCV)Ordered By: Byron Vivas on 10-19-2022 MCV (RBC) [Entitic vol] 70.7 fL 80-94 [facility] Hematocrit Auto (Bld) [Volum e fraction]Ordered By: Byron Vivas on 10-19-2022 Hematocrit (Bld) [Volume fraction] 31.3 % 40-54 [facility] Laboratory - Chemistry and C hemistry - challengeOrdered By: Byron Vivas on 10-19-2022 CO2 [Moles/Vol] 28.0 mmol/L 21.0-32.0 [facility] Urea nitrogen/Creatinine [Mass ratio] 17.4 mg/mg 10-20 [facility] Laboratory - Hematology and Cell countsOrdered By: Byron Vivas on 10-19-2022 Erythrocyte distribution width (RBC) [Entitic vol] 45.6 fL 35.1-43.9 [facility] Erythrocyte distribution width (RBC) [Ratio] 18.4 % 11.6-14.6 [facility] Immature granulocytes/100 WBC (Bld) 1.000 % 0.0-0.9 [facility] Comment on above: IG% - Immature Granu locytes (promyelocytes, myelocytes and metamyelocytes) > 1% indicates that a LEFT SHIFT is Present. MCH (RBC) [Entitic mass] 20.3 pg 27.0-32.0 [facility] Nucleated RBC/100 WBC (Bld) [Ratio] 0 % 0-5 [facility] MCHC Auto (RBC) [Mass/Vol]Or dered By: Bryon Vivas on 10-19-2022 MCHC (RBC) [Mass/Vol] 28.8 g/dL 32-36 [facility] No Panel InformationOrdered By: Byron Vivas on 10-19-2022 Estimated Creatinine Clearance Calc 82.79 ml/min [facility] Estimated GFR (MDRD) Amer 91 mL/min >60 [facility] Comment on above: GFR Calc Estimated GFR (MDRD) Non-Af Amer 76 mL/min >60 [facility] Comment on above: Non- GFR Calc Troponin I High Sensitivity 4 pg/mL 3.0-78.0 [facility] Comment on above: Please Note: New Krystle t Units and Gender Specific Reference Ranges. For more information see Policy Stat Procedure [place] High Sensitivity Troponin (TNIH) and attachments. Platelets bldOrdered By: Francois Vivas on 10-19-2022 Platelets (Bld) [#/Vol] 502 10*3/uL 150-450 [facility] Serum or plasma calcium david urement (mass/volume)Ordered By: Byron Vivas on 10-19-2022 Calcium [Mass/Vol] 9.1 mg/dL 8.5-10.1 [facility] Serum or plasma creatinine m easurement (mass/volume)Ordered By: Byron Vivas on 10-19-2022 Creatinine [Mass/Vol] 1.09 mg/dL 0.70-1.30 [facility] Comment on above: The validity of the calculated GFR & GFRAA in patients over 70 years has not been determined. Clinical correlation is essential. Serum or plasma urea nitroge n measurement (mass/volume)Ordered By: Byron Vivas on 10-19-2022 Urea nitrogen [Mass/Vol] 19 mg/dL 7-18 [facility] Thin prep Papanicolaou smear with manual screeningOrdered By: Byron Vivas on 10-19-2022 Thin prep Papanicolaou smear with manual screening 07 16-15 [facility] CBC W Auto Differential pane l (Bld)on 09-07-2022 Basophils (Bld) [#/Vol] 0.04 10*3/uL <0.11 k/uL [facility] Basophils/100 WBC (Bld) 0.4 % [facility] Differential cell count method Nom (Bld) Auto [facility] Eosinophils (Bld) [#/Vol] 0.17 10*3/uL <0.46 k/uL [facility] Eosinophils/100 WBC (Bld) 1.8 % [facility] Erythrocyte distribution width (RBC) [Ratio] 17.1 % High 11.5 - 15.0 % [facility] Hematocrit (Bld) [Volume fraction] 38.9 % Low 39.0 - 51.0 % [facility] Hemoglobin (Bld) [Mass/Vol] 10.6 g/dL Low 13.0 - 17.0 g/dL [facility] Immature granulocytes (Bld) [#/Vol] 0.05 10*3/uL <0.10 k/uL [facility] Immature granulocytes/100 WBC (Bld) 0.5 % [facility] Lymphocytes (Bld) [#/Vol] 1.35 10*3/uL 1.00 - 4.00 k/uL [facility] Lymphocytes/100 WBC (Bld) 14.7 % [facility] MCH (RBC) [Entitic mass] 20.2 pg Low 26.0 - 34.0 pg [facility] MCHC (RBC) [Mass/Vol] 27.2 g/dL Low 30.5 - 36.0 g/dL [facility] MCV (RBC) [Entitic vol] 74.2 fL Low 80.0 - 100.0 fL [facility] Monocytes (Bld) [#/Vol] 0.86 10*3/uL <0.87 k/uL [facility] Monocytes/100 WBC (Bld) 9.4 % [facility] Neutrophils (Bld) [#/Vol] 6.72 10*3/uL 1.45 - 7.50 k/uL [facility] Neutrophils/100 WBC (Bld) 73.2 % [facility] Nucleated RBC (Bld) [#/Vol] <0.01 k/uL [facility] Nucleated RBC/100 WBC (Bld) [Ratio] 0.0 /100 WBC [facility] Platelet mean volume (Bld) [Entitic vol] 10.4 fL 9.0 - 12.7 fL [facility] Platelets (Bld) [#/Vol] 420 10*3/uL High 150 - 400 k/uL [facility] RBC (Bld) [#/Vol] 5.24 10*6/uL 4.20 - 6.0 0 m/uL [facility] WBC (Bld) [#/Vol] 9.19 10*3/uL 3.70 - 11. 00 k/uL [facility] Absolute lymphocyte counton 08-17-2021 Lymphocytes Auto (Unsp spec) [#/Vol] 0.69 10*3/uL 0.83-4.51 [facility] Work Phone: Basophil percentageon 2021 Basophils/100 WBC (Bld) 0.1 % 0-1 [facility] Work Phone: Chloride [Moles/Vol] 106 mmol/L 98-107 [facility] Work Phone: Eosinophils/100 WBC (Bld) 0.0 % 0-5 [facility] Work Phone: Glucose [Mass/Vol] 134 mg/dL 74-106 [facility] Work Phone: Comment on above: Fasting Glucose resu lt greater than or equal to 126 mg/dL suggests DIABETES MELLITUS per A.D.A. criteria. Neutrophils (Bld) [#/Vol] 10.3 10*3/uL 2.0-7.7 [facility] Work Phone: Neutrophils/100 WBC (Bld) 89.4 % 47-70 [facility] Work Phone: [phone] Potassium [Moles/Vol] 3.8 mmol/L 3.5-5.1 [facility] Work Phone: Sodium [Moles/Vol] 139 mmol/L 136-145 [facility] Work Phone: WBC (Bld) [#/Vol] 11.5 10*3/uL 4.4-11.0 [facility] Work Phone: Blood erythrocytes count (nu mber/volume)on 08-17-2021 RBC (Bld) [#/Vol] 4.10 10*6/uL 4.6-6.2 [facility] Work Phone: Blood hemoglobin measurement (mass/volume)on 08-17-2021 Hemoglobin (Bld) [Mass/Vol] 11.6 g/dL 13.0-16.5 [facility] Work Phone: Blood lymphocytes/100 leukoc yteson 08-17-2021 Lymphocytes/100 WBC (Bld) 6.0 % 19-41 [facility] Work Phone: Blood monocytes/100 leukocyt eson 08-17-2021 Monocytes/100 WBC (Bld) 3.7 % 0-10 [facility] Work Phone: Blood platelet mean volumeon 08-17-2021 Platelet mean volume (Bld) [Entitic vol] 9.3 fL 6.2-12.0 [facility] Work Phone: Determination of erythrocyte mean corpuscular volume (MCV)on 08-17-2021 MCV (RBC) [Entitic vol] 90.5 fL 80-94 [facility] Work Phone: Hematocrit Auto (Bld) [Volum e fraction]on 08-17-2021 Hematocrit (Bld) [Volume fraction] 37.1 % 40-54 [facility] Work Phone: Laboratory - Chemistry and C hemistry - challengeon 08-17-2021 CO2 [Moles/Vol] 30.0 mmol/L 21.0-32.0 [facility] Work Phone: Urea nitrogen/Creatinine [Mass ratio] 17.8 mg/mg 10-20 [facility] Work Phone: Laboratory - Hematology and Cell countson 08-17-2021 Erythrocyte distribution width (RBC) [Entitic vol] 44.1 fL 35.1-43.9 [facility] Work Phone: Erythrocyte distribution width (RBC) [Ratio] 13.2 % 11.6-14.6 [facility] Work Phone: Immature granulocytes/100 WBC (Bld) 0.800 % 0.0-0.9 [facility] Work Phone: Comment on above: IG% - Immature Granu locytes (promyelocytes, myelocytes and metamyelocytes) > 1% indicates that a LEFT SHIFT is Present. MCH (RBC) [Entitic mass] 28.3 pg 27.0-32.0 [facility] Work Phone: Nucleated RBC/100 WBC (Bld) [Ratio] 0 % 0-5 [facility] Work Phone: MCHC Auto (RBC) [Mass/Vol]on 08-17-2021 MCHC (RBC) [Mass/Vol] 31.3 g/dL 32-36 [facility] Work Phone: No Panel Informationon 08-17 Estimated Creatinine Clearance Calc 84.73 ml/min [facility] Work Phone: Estimated GFR (MDRD) Amer 115 mL/min >60 [facility] Work Phone: Comment on above: GFR Calc Estimated GFR (MDRD) Non-Af Amer 95 mL/min >60 [facility] Work Phone: Comment on above: Non- GFR Calc Platelets bldon 08-17-2021 Platelets (Bld) [#/Vol] 298 10*3/uL 150-450 [facility] Work Phone: Serum or plasma calcium david urement (mass/volume)on 08-17-2021 Calcium [Mass/Vol] 9.1 mg/dL 8.5-10.1 [facility] Work Phone: Serum or plasma creatinine m easurement (mass/volume)on 08-17-2021 Creatinine [Mass/Vol] 0.90 mg/dL 0.70-1.30 [facility] Work Phone: Comment on above: The validity of the calculated GFR & GFRAA in patients over 70 years has not been determined. Clinical correlation is essential. Serum or plasma urea nitroge n measurement (mass/volume)on 08-17-2021 Urea nitrogen [Mass/Vol] 16 mg/dL 7-18 [facility] Work Phone: Thin prep Papanicolaou smear with manual screeningon 08-17-2021 Thin prep Papanicolaou smear with manual screening 3 5-15 [facility] Work Phone: Absolute lymphocyte counton 08-15-2021 Lymphocytes Auto (Unsp spec) [#/Vol] 1.46 10*3/uL 0.83-4.51 [facility] Work Phone: Basophil percentageon 2021 Basophils/100 WBC (Bld) 0.3 % 0-1 [facility] Work Phone: Chloride [Moles/Vol] 104 mmol/L 98-107 [facility] Work Phone: Eosinophils/100 WBC (Bld) 1.6 % 0-5 [facility] Work Phone: Glucose [Mass/Vol] 113 mg/dL 74-106 [facility] Work Phone: Comment on above: Fasting Glucose resu lt from 100 to 125 mg/dL suggests IMPAIRED HOMEOSTASIS per A.D.A. criteria. Neutrophils (Bld) [#/Vol] 9.9 10*3/uL 2.0-7.7 [facility] Work Phone: Neutrophils/100 WBC (Bld) 79.9 % 47-70 [facility] Work Phone: Potassium [Moles/Vol] 3.3 mmol/L 3.5-5.1 [facility] Work Phone: Sodium [Moles/Vol] 139 mmol/L 136-145 [facility] Work Phone: WBC (Bld) [#/Vol] 12.4 10*3/uL 4.4-11.0 [facility] Work Phone: Blood erythrocytes count (nu mber/volume)on 08-15-2021 RBC (Bld) [#/Vol] 5.03 10*6/uL 4.6-6.2 [facility] Work Phone: Blood hemoglobin measurement (mass/volume)on 08-15-2021 Hemoglobin (Bld) [Mass/Vol] 14.5 g/dL 13.0-16.5 [facility] Work Phone: Blood lymphocytes/100 leukoc yteson 08-15-2021 Lymphocytes/100 WBC (Bld) 11.8 % 19-41 [facility] Work Phone: Blood monocytes/100 leukocyt eson 08-15-2021 Monocytes/100 WBC (Bld) 5.8 % 0-10 [facility] Work Phone: Blood platelet mean volumeon 08-15-2021 Platelet mean volume (Bld) [Entitic vol] 9.4 fL 6.2-12.0 [facility] Work Phone: Determination of erythrocyte mean corpuscular volume (MCV)on 08-15-2021 MCV (RBC) [Entitic vol] 88.5 fL 80-94 [facility] Work Phone: Hematocrit Auto (Bld) [Volum e fraction]on 08-15-2021 Hematocrit (Bld) [Volume fraction] 44.5 % 40-54 [facility] Work Phone: Laboratory - Chemistry and C hemistry - challengeon 08-15-2021 CO2 [Moles/Vol] 29.0 mmol/L 21.0-32.0 [facility] Work Phone: Urea nitrogen/Creatinine [Mass ratio] 15.7 mg/mg 10-20 [facility] Work Phone: Laboratory - Hematology and Cell countson 08-15-2021 Erythrocyte distribution width (RBC) [Entitic vol] 42.5 fL 35.1-43.9 [facility] Work Phone: Erythrocyte distribution width (RBC) [Ratio] 13.2 % 11.6-14.6 [facility] Work Phone: Immature granulocytes/100 WBC (Bld) 0.600 % 0.0-0.9 [facility] Work Phone: Comment on above: IG% - Immature Granu locytes (promyelocytes, myelocytes and metamyelocytes) > 1% indicates that a LEFT SHIFT is Present. MCH (RBC) [Entitic mass] 28.8 pg 27.0-32.0 [facility] Work Phone: Nucleated RBC/100 WBC (Bld) [Ratio] 0 % 0-5 [facility] Work Phone: MCHC Auto (RBC) [Mass/Vol]on 08-15-2021 MCHC (RBC) [Mass/Vol] 32.6 g/dL 32-36 [facility] Work Phone: No Panel Informationon 08-15 Estimated Creatinine Clearance Calc 79.73 ml/min [facility] Work Phone: Estimated GFR (MDRD) Amer 107 mL/min >60 [facility] Work Phone: Comment on above: GFR Calc Estimated GFR (MDRD) Non-Af Amer 88 mL/min >60 [facility] Work Phone: Comment on above: Non- GFR Calc Troponin I High Sensitivity < 3 pg/mL 3.0-78.0 [facility] Work Phone: Comment on above: Please Note: New Krystle t Units and Gender Specific Reference Ranges. For more information see Policy Stat Procedure [place] High Sensitivity Troponin (TNIH) and attachments. SARS-CoV-2 & FLU Antigen (Rapid) [facility] Work Phone: Platelets bldon 08-15-2021 Platelets (Bld) [#/Vol] 336 10*3/uL 150-450 [facility] Work Phone: Serum or plasma calcium david urement (mass/volume)on 08-15-2021 Calcium [Mass/Vol] 9.5 mg/dL 8.5-10.1 [facility] Work Phone: Serum or plasma creatinine m easurement (mass/volume)on 08-15-2021 Creatinine [Mass/Vol] 0.96 mg/dL 0.70-1.30 [facility] Work Phone: Comment on above: The validity of the calculated GFR & GFRAA in patients over 70 years has not been determined. Clinical correlation is essential. Serum or plasma urea nitroge n measurement (mass/volume)on 08-15-2021 Urea nitrogen [Mass/Vol] 15 mg/dL 7-18 [facility] Work Phone: Thin prep Papanicolaou smear with manual screeningon 08-15-2021 Thin prep Papanicolaou smear with manual screening 6 5-15 [facility] Work Phone: .Auto Diffon 08-01-2021 Basophil, Absolute 0.00 10 3/mcL Normal 0.00-0.19 [facility] ([place]) Comment on above: Performed By: #### C BC, ADIFF, ANEU, BMP, GFR, PBNP, TROPHS #### [address] [address] Basophils/100 WBC (Bld) 0.5 % Normal 0.0-2.5 [facility] ([place]) Comment on above: Performed By: #### C BC, ADIFF, ANEU, BMP, GFR, PBNP, TROPHS #### [address] [address] Eosinophil, Absolute 0.30 10 3/mcL Normal 0.00-0.40 [facility] ([place]) Comment on above: Performed By: #### C BC, ADIFF, ANEU, BMP, GFR, PBNP, TROPHS #### [address] [address] Eosinophils/100 WBC (Bld) 4.2 % Normal 0.0-7.0 [facility] ([place]) Comment on above: Performed By: #### C BC, ADIFF, ANEU, BMP, GFR, PBNP, TROPHS #### [address] [address] Lymphocyte, Absolute 1.20 10 3/mcL Normal 0.77-3.85 [facility] ([place] Comment on above: Performed By: #### C BC, ADIFF, ANEU, BMP, GFR, PBNP, TROPHS #### [address] [address] Lymphocytes/100 WBC (Bld) 16.7 % Normal 10.0-50.0 [facility] ([place] Comment on above: Performed By: #### C BC, ADIFF, ANEU, BMP, GFR, PBNP, TROPHS #### [address] [address] Monocyte, Absolute 0.80 10 3/mcL Normal 0.15-1.00 [facility] ([place]) Comment on above: Performed By: #### C BC, ADIFF, ANEU, BMP, GFR, PBNP, TROPHS #### [address] [address] Monocytes/100 WBC (Bld) 10.9 % Normal 1.7-13.0 [facility] ([place]) Comment on above: Performed By: #### C BC, ADIFF, ANEU, BMP, GFR, PBNP, TROPHS #### [address] [address] Neutrophils/100 WBC (Bld) 67.7 % Normal 37.0-80.0 [facility] ([place] Comment on above: Performed By: #### C BC, ADIFF, ANEU, BMP, GFR, PBNP, TROPHS #### [address] [address] .GFRon 08-01-2021 GFR 87 ml/min/1.73sqm Normal [facility] ([place]) Comment on above: Result Comment: GFR Population [...] ADIFF, ANEU, BMP, GFR, PBNP, TROPHS #### [address] [address] GFR Non- 72 ml/min/1.73sqm Normal [facility] ([place]) Comment on above: Result Comment: GFR Population [...] ADIFF, ANEU, BMP, GFR, PBNP, TROPHS #### [address] [address] .NEUABSon 08-01-2021 Neutrophil, Absolute 5.00 10 3/mcL Normal 2.85-6.16 [facility] ([place]) Comment on above: Performed By: #### C BC, ADIFF, ANEU, BMP, GFR, PBNP, TROPHS #### [address] [address] BMPon 08-01-2021 BUN/Creatinine Ratio 19 ratio Normal 7-27 [facility] ([place]) Comment on above: Performed By: #### C BC, ADIFF, ANEU, BMP, GFR, PBNP, TROPHS #### [address] [address] Calcium [Mass/Vol] 9.2 mg/dL Normal 8.4-10.2 [facility] ([place]) Comment on above: Performed By: #### C BC, ADIFF, ANEU, BMP, GFR, PBNP, TROPHS #### [address] [address] Chloride [Moles/Vol] 103 mmol/L Normal 98-107 [facility] ([place] Comment on above: Performed By: #### C BC, ADIFF, ANEU, BMP, GFR, PBNP, TROPHS #### [address] [address] CO2 [Moles/Vol] 34 mmol/L High 22-29 [facility] ([place] Comment on above: Performed By: #### C BC, ADIFF, ANEU, BMP, GFR, PBNP, TROPHS #### [address] [address] Creatinine [Mass/Vol] 1.09 mg/dL Normal 0.70-1.30 [facility] ([place]) Comment on above: Performed By: #### C BC, ADIFF, ANEU, BMP, GFR, PBNP, TROPHS #### [address] [address] Electrolyte Balance 4.0 mEq/L Normal 4.0-15.0 [facility] ([place]) Comment on above: Performed By: #### C BC, ADIFF, ANEU, BMP, GFR, PBNP, TROPHS #### [address] [address] Glucose [Mass/Vol] 93 mg/dL Normal 70-105 [facility] ([place]) Comment on above: Performed By: #### C BC, ADIFF, ANEU, BMP, GFR, PBNP, TROPHS #### [address] [address] Potassium [Moles/Vol] 4.3 mmol/L Normal 3.5-5.1 [facility] ([place] Comment on above: Performed By: #### C BC, ADIFF, ANEU, BMP, GFR, PBNP, TROPHS #### [address] [address] Sodium [Moles/Vol] 141 mmol/L Normal 136-145 [facility] ([place]) Comment on above: Performed By: #### C BC, ADIFF, ANEU, BMP, GFR, PBNP, TROPHS #### [address] [address] Urea nitrogen [Mass/Vol] 21 mg/dL High 7-18 [facility] ([place] Comment on above: Performed By: #### C BC, ADIFF, ANEU, BMP, GFR, PBNP, TROPHS #### [address] [address] CBCon 08-01-2021 Erythrocyte distribution width (RBC) [Ratio] 14.5 % Normal 11.5-14.5 [facility] ([place] Comment on above: Performed By: #### C BC, ADIFF, ANEU, BMP, GFR, PBNP, TROPHS #### [address] [address] Hematocrit (Bld) [Volume fraction] 43.1 % Normal 42.0-52.0 [facility] ([place] Comment on above: Performed By: #### C BC, ADIFF, ANEU, BMP, GFR, PBNP, TROPHS #### [address] [address] Hgb 13.9 G/dL Low 14.0-18.0 [facility] ([place] Comment on above: Performed By: #### C BC, ADIFF, ANEU, BMP, GFR, PBNP, TROPHS #### [address] [address] MCH (RBC) [Entitic mass] 28.5 pg Normal 27.0-31.2 [facility] ([place] Comment on above: Performed By: #### C BC, ADIFF, ANEU, BMP, GFR, PBNP, TROPHS #### [place] [address] MCHC 32.3 G/dL Normal 31.8-35.4 [facility] ([place] Comment on above: Performed By: #### C BC, ADIFF, ANEU, BMP, GFR, PBNP, TROPHS #### [place] [address] MCV (RBC) [Entitic vol] 88.2 fL Normal 80.0-94.0 [facility] ([place] Comment on above: Performed By: #### C BC, ADIFF, ANEU, BMP, GFR, PBNP, TROPHS #### [place] [address] Platelet 277 10 3/mcL Normal 130-400 [facility] ([place] Comment on above: Performed By: #### C BC, ADIFF, ANEU, BMP, GFR, PBNP, TROPHS #### [address] [address] Platelet mean volume (Bld) [Entitic vol] 8.0 fL Normal 7.4-10.4 [facility] ([place] Comment on above: Performed By: #### C BC, ADIFF, ANEU, BMP, GFR, PBNP, TROPHS #### [address] [address] RBC 4.88 10 6/mcL Normal 4.04-6.13 [facility] ([place] Comment on above: Performed By: #### C BC, ADIFF, ANEU, BMP, GFR, PBNP, TROPHS #### [address] [address] WBC 7.50 10 3/mcL Normal 4.60-10.80 [facility] ([place] Comment on above: Performed By: #### C BC, ADIFF, ANEU, BMP, GFR, PBNP, TROPHS #### [place] [id number] [place], [place] [address] LABORATORYOrdered By: Gabrielle Hernandez on 08-01-2021 Basophil, [...] 08/01/2021 12:05:37 PM Ordering Provider: JENSEN Barton [facility] ([place]) .Auto Diffon 07-17-2021 Basophil, Absolute 0.10 10 3/mcL Normal 0.00-0.19 [facility] ([place]) Comment on above: Performed By: #### C BC, ADIFF, ANEU, BMP, GFR, PBNP, TROPHS #### [address] [address] Basophils/100 WBC (Bld) 0.6 % Normal 0.0-2.5 [facility] ([place] Comment on above: Performed By: #### C BC, ADIFF, ANEU, BMP, GFR, PBNP, TROPHS #### [address] [address] Eosinophil, Absolute 0.80 10 3/mcL High 0.00-0.40 [facility] ([place]) Comment on above: Performed By: #### C BC, ADIFF, ANEU, BMP, GFR, PBNP, TROPHS #### [address] [address] Eosinophils/100 WBC (Bld) 6.3 % Normal 0.0-7.0 [facility] ([place] Comment on above: Performed By: #### C BC, ADIFF, ANEU, BMP, GFR, PBNP, TROPHS #### [address] [address] Lymphocyte, Absolute 1.70 10 3/mcL Normal 0.77-3.85 [facility] ([place]) Comment on above: Performed By: #### C BC, ADIFF, ANEU, BMP, GFR, PBNP, TROPHS #### [address] [address] Lymphocytes/100 WBC (Bld) 13.9 % Normal 10.0-50.0 [facility] ([place] Comment on above: Performed By: #### C BC, ADIFF, ANEU, BMP, GFR, PBNP, TROPHS #### [address] [address] Monocyte, Absolute 1.20 10 3/mcL High 0.15-1.00 [facility] ([place]) Comment on above: Performed By: #### C BC, ADIFF, ANEU, BMP, GFR, PBNP, TROPHS #### [address] [address] Monocytes/100 WBC (Bld) 9.9 % Normal 1.7-13.0 [facility] ([place] Comment on above: Performed By: #### C BC, ADIFF, ANEU, BMP, GFR, PBNP, TROPHS #### [address] [address] Neutrophils/100 WBC (Bld) 69.3 % Normal 37.0-80.0 [facility] ([place] Comment on above: Performed By: #### C BC, ADIFF, ANEU, BMP, GFR, PBNP, TROPHS #### [address] [address] .GFRon 07-17-2021 GFR Non- 70 ml/min/1.73sqm Normal [facility] ([place] Comment on above: Result Comment: GFR Population [...] ADIFF, ANEU, BMP, GFR, PBNP, TROPHS #### [address] [address] GFR 85 ml/min/1.73sqm Normal [facility] ([place]) Comment on above: Result Comment: GFR Population [...] ADIFF, ANEU, BMP, GFR, PBNP, TROPHS #### [address] [address] .NEUABSon 07-17-2021 Neutrophil, Absolute 8.70 10 3/mcL High 2.85-6.16 [facility] ([place]) Comment on above: Performed By: #### C BC, ADIFF, ANEU, BMP, GFR, PBNP, TROPHS #### [address] [address] CBCon 07-17-2021 Erythrocyte distribution width (RBC) [Ratio] 14.8 % High 11.5-14.5 [facility] ([place] Comment on above: Performed By: #### C BC, ADIFF, ANEU, CMP, PBNP, TROPHS, GFR #### [address] [address] Hematocrit (Bld) [Volume fraction] 41.4 % Low 42.0-52.0 [facility] ([place] Comment on above: Performed By: #### C BC, ADIFF, ANEU, CMP, PBNP, TROPHS, GFR #### [address] [address] Hgb 13.8 G/dL Low 14.0-18.0 [facility] ([place]) Comment on above: Performed By: #### C BC, ADIFF, ANEU, CMP, PBNP, TROPHS, GFR #### [address] [address] MCH (RBC) [Entitic mass] 29.2 pg Normal 27.0-31.2 [facility] ([place] Comment on above: Performed By: #### C BC, ADIFF, ANEU, CMP, PBNP, TROPHS, GFR #### [place] [address] MCHC 33.3 G/dL Normal 31.8-35.4 [facility] ([place] Comment on above: Performed By: #### C BC, ADIFF, ANEU, CMP, PBNP, TROPHS, GFR #### [address] [address] MCV (RBC) [Entitic vol] 87.9 fL Normal 80.0-94.0 [facility] ([place] Comment on above: Performed By: #### C BC, ADIFF, ANEU, CMP, PBNP, TROPHS, GFR #### [address] [address] Platelet 495 10 3/mcL High 130-400 [facility] ([place] Comment on above: Performed By: #### C BC, ADIFF, ANEU, CMP, PBNP, TROPHS, GFR #### [address] [address] Platelet mean volume (Bld) [Entitic vol] 7.8 fL Normal 7.4-10.4 [facility] ([place]) Comment on above: Performed By: #### C BC, ADIFF, ANEU, CMP, PBNP, TROPHS, GFR #### [address] [address] RBC 4.71 10 6/mcL Normal 4.04-6.13 [facility] ([place]) Comment on above: Performed By: #### C BC, ADIFF, ANEU, CMP, PBNP, TROPHS, GFR #### [address] [address] WBC 12.60 10 3/mcL High 4.60-10.80 [facility] ([place]) Comment on above: Performed By: #### C BC, ADIFF, ANEU, CMP, PBNP, TROPHS, GFR #### [address] [address] CMPon 07-17-2021 Albumin Level 3.9 G/dL Normal 3.5-5.0 [facility] ([place]) Comment on above: Performed By: #### C BC, ADIFF, ANEU, BMP, GFR, PBNP, TROPHS #### [address] [address] Albumin/Globulin [Mass ratio] 1.0 {ratio} Low 1.1-2.5 [facility] ([place] Comment on above: Performed By: #### C BC, ADIFF, ANEU, BMP, GFR, PBNP, TROPHS #### [address] [address] ALP [Catalytic activity/Vol] 112 U/L Normal 40-135 [facility] ([place] Comment on above: Performed By: #### C BC, ADIFF, ANEU, BMP, GFR, PBNP, TROPHS #### [address] [address] ALT [Catalytic activity/Vol] 22 U/L Normal 16-63 [facility] ([place] Comment on above: Performed By: #### C BC, ADIFF, ANEU, BMP, GFR, PBNP, TROPHS #### [address] [address] AST [Catalytic activity/Vol] 9 U/L Low 10-40 [facility] ([place] Comment on above: Performed By: #### C BC, ADIFF, ANEU, BMP, GFR, PBNP, TROPHS #### [address] [address] Bili Total 0.3 mg/dL Normal 0.2-1.0 [facility] ([place]) Comment on above: Result Comment: Use of this assay is not recommended for patients undergoing treatment with eltrombopag due to the potential for falsely elevated results. Performed By: #### C BC, ADIFF, ANEU, BMP, GFR, PBNP, TROPHS #### [address] [address] BUN/Creatinine Ratio 21 ratio Normal 7-27 [facility] ([place]) Comment on above: Performed By: #### C BC, ADIFF, ANEU, BMP, GFR, PBNP, TROPHS #### [address] [address] Calcium [Mass/Vol] 9.7 mg/dL Normal 8.4-10.2 [facility] ([place]) Comment on above: Performed By: #### C BC, ADIFF, ANEU, BMP, GFR, PBNP, TROPHS #### [address] [address] Chloride [Moles/Vol] 99 mmol/L Normal 98-107 [facility] ([place] Comment on above: Performed By: #### C BC, ADIFF, ANEU, BMP, GFR, PBNP, TROPHS #### [address] [address] CO2 [Moles/Vol] 32 mmol/L High 22-29 [facility] ([place]) Comment on above: Performed By: #### C BC, ADIFF, ANEU, BMP, GFR, PBNP, TROPHS #### [address] [address] Creatinine [Mass/Vol] 1.11 mg/dL Normal 0.70-1.30 [facility] ([place]) Comment on above: Performed By: #### C BC, ADIFF, ANEU, BMP, GFR, PBNP, TROPHS #### [address] [address] Electrolyte Balance 8.0 mEq/L Normal 4.0-15.0 [facility] ([place]) Comment on above: Performed By: #### C BC, ADIFF, ANEU, BMP, GFR, PBNP, TROPHS #### [address] [address] Globulin 3.9 G/dL Normal [facility] ([place]) Comment on above: Performed By: #### C BC, ADIFF, ANEU, BMP, GFR, PBNP, TROPHS #### [address] [address] Glucose [Mass/Vol] 131 mg/dL High 70-105 [facility] ([place]) Comment on above: Performed By: #### C BC, ADIFF, ANEU, BMP, GFR, PBNP, TROPHS #### [address] [address] Potassium [Moles/Vol] 4.4 mmol/L Normal 3.5-5.1 [facility] ([place]) Comment on above: Performed By: #### C BC, ADIFF, ANEU, BMP, GFR, PBNP, TROPHS #### [address] [address] Sodium [Moles/Vol] 139 mmol/L Normal 136-145 [facility] ([place]) Comment on above: Performed By: #### C BC, ADIFF, ANEU, BMP, GFR, PBNP, TROPHS #### [address] [address] Total Protein 7.8 G/dL Normal 6.4-8.2 [facility] ([place]) Comment on above: Performed By: #### C BC, ADIFF, ANEU, BMP, GFR, PBNP, TROPHS #### [address] [address] Urea nitrogen [Mass/Vol] 23 mg/dL High 7-18 [facility] ([place]) Comment on above: Performed By: #### C BC, ADIFF, ANEU, BMP, GFR, PBNP, TROPHS #### [place] [address] [id number] 07-17-2021 Date of Onset [id number] Invalid Interpretation Code [facility] ([place]) Comment on above: Performed By: #### C BC, ADIFF, ANEU, BMP, GFR, PBNP, TROPHS #### [place] [address] Employed in Healthcare No [facility] ([place]) Comment on above: Performed By: #### C BC, ADIFF, ANEU, BMP, GFR, PBNP, TROPHS #### [place] [address] First Test Unknown Normal [facility] ([place] Comment on above: Performed By: #### C BC, ADIFF, ANEU, BMP, GFR, PBNP, TROPHS #### [place] [address] Hospitalized No [facility] ([place]) Comment on above: Performed By: #### C BC, ADIFF, ANEU, BMP, GFR, PBNP, TROPHS #### [place] [address] ICU No [facility] ([place]) Comment on above: Performed By: #### C BC, ADIFF, ANEU, BMP, GFR, PBNP, TROPHS #### [place] [address] Not [facility] ([place]) Comment on above: Performed By: #### C BC, ADIFF, ANEU, BMP, GFR, PBNP, TROPHS #### [place] [address] Resides in Congregate Care Setting No [facility] ([place]) Comment on above: Performed By: #### C BC, ADIFF, ANEU, BMP, GFR, PBNP, TROPHS #### [place] [address] SARS-CoV-2 (COVID-19) RNA DESTINY+probe Ql (Unsp spec) Negative Normal Negative [facility] ([place]) Comment on above: Performed By: #### C BC, ADIFF, ANEU, BMP, GFR, PBNP, TROPHS #### [place] [address] [place], [place] [address] SARS-CoV-2 (COVID-19) RNA DESTINY+probe Ql (Unsp spec) [facility] ([place]) Comment on above: Result Comment: Nega tive [...] ADIFF, ANEU, BMP, GFR, PBNP, TROPHS #### [address] [address] Symptomatic as Defined by CDC No [facility] ([place]) Comment on above: Performed By: #### C BC, ADIFF, ANEU, BMP, GFR, PBNP, TROPHS #### [place] [address] [place], [place] [address] CT ANGIOGRAPHY CHEST W/CONTR Salma 07-17-2021 CT [...] 07/17/2021 7:46:38 PM Ordering Provider: FUAD MCCALL [facility] ([place]) CT HEAD OR BRAIN W/O CONTRAS Ton [...] 07/17/2021 7:01:08 PM Ordering Provider: FUAD Barton [facility] ([place]) Beth 07-17-2021 Flu A PCR (AO) Negative Normal Negative [facility] ([place]) Comment on above: Result Comment: Posi tive [...] REPEAT COLLECTION AND TESTING IS RECOMMENDED. The [employer] Flu A/B & RSV Assay is a real-time polymerase chain reaction (PCR) based qualitative in vitro diagnostic test for the direct detection and differentiation of influenza A virus, influenza B virus, and respiratory syncytial virus (RSV) nucleic acid in nasopharyngeal swab (BAROMETERS CALIBRATOR) specimens from patients with signs and symptoms of respiratory infection in conjunction with clinical and laboratory findings. The test is intended for use as an aid in the differential diagnosis of influenza A virus, influenza B virus, and RSV in humans and is not intended to detect influenza C. Performed By: #### C BC, ADIFF, ANEU, BMP, GFR, PBNP, TROPHS #### [place] [id number] [place], [place] [address] Flu B PCR (AO) Negative Normal Negative [facility] ([place]) Comment on above: Result Comment: Posi tive [...] virus (RSV) nucleic acid in nasopharyngeal swab (BAROMETERS CALIBRATOR) specimens from patients with signs and symptoms of respiratory infection in conjunction with clinical and laboratory findings. The test is intended for use as an aid in the differential diagnosis of influenza A virus, influenza B virus, and RSV in humans and is not intended to detect influenza C. Performed By: #### C BC, ADIFF, ANEU, BMP, GFR, PBNP, TROPHS #### [place] [address] [place], [place] [address] RSV PCR (AO) Negative Normal Negative [facility] ([place]) Comment on above: Result Comment: Posi [...] virus (RSV) nucleic acid in nasopharyngeal swab (BAROMETERS CALIBRATOR) specimens from patients with signs and symptoms of respiratory infection in conjunction with clinical and laboratory findings. The test is intended for use as an aid in the differential diagnosis of influenza A virus, influenza B virus, and RSV in humans and is not intended to detect influenza C. Performed By: #### C BC, ADIFF, ANEU, BMP, GFR, PBNP, TROPHS #### [address] [address] FT3on 07-17-2021 Free T3 [Mass/Vol] 2.82 pg/mL Normal 2.30-4.00 [facility] ([place]) Comment on above: Performed By: #### C BC, ADIFF, ANEU, BMP, GFR, PBNP, TROPHS #### [place] [address] FT4on 07-17-2021 Free T4 [Mass/Vol] 0.97 ng/dL Normal 0.76-1.46 [facility] ([place]) Comment on above: Performed By: #### C BC, ADIFF, ANEU, BMP, GFR, PBNP, TROPHS #### [place] [address] LABORATORYOrdered By: Cherie Hsu on 07-17-2021 ADMITTED [...] B (Bld) [Mass/Vol] 13 pg/mL Normal 0-125 [facility] ([place]) Comment on above: Result Comment: NT-p roBNP results of less than 300 pg/mL effectively rules out acute congestive heart failure with 99% negative predictive value. Performed By: #### C BC, ADIFF, ANEU, BMP, GFR, PBNP, TROPHS #### [address] [address] TROPHSon 07-17-2021 Troponin I High Sensitivity 4.7 ng/L Normal 0.0-76.2 [facility] ([place]) Comment on above: Performed By: #### C BC, ADIFF, ANEU, BMP, GFR, PBNP, TROPHS #### [address] [address] TSHon 07-17-2021 TSH Qn 0.89 m[IU]/L Normal 0.36-3.74 [facility] ([place]) Comment on above: Performed By: #### C BC, ADIFF, ANEU, BMP, GFR, PBNP, TROPHS #### [address] [address] Basic Metabolic Panelon 06-14 Calcium [Mass/Vol] 9.2 mg/dL Normal 8.4-10.4 [facility] Comment on above: Performed By: #### H OMCY, FOLT3, HEMDF, BMP3M #### [facility] [address] [place] [address] #### MMA2 #### The performing lab is in the report. Glucose [Mass/Vol] 119 mg/dL High 70-100 [facility] Comment on above: Performed By: #### H OMCY, FOLT3, HEMDF, BMP3M #### [facility] [address] [place] [address] #### MMA2 #### The performing lab is in the report. Anion gap [Moles/Vol] 4 mmol/L Normal 3-13 [facility] Comment on above: Performed By: #### H OMCY, FOLT3, HEMDF, BMP3M #### [facility] [address] [place] [address] #### MMA2 #### The performing lab is in the report. CO2 [Moles/Vol] 33 mmol/L High 22-30 [facility] Comment on above: Performed By: #### H OMCY, FOLT3, HEMDF, BMP3M #### [facility] [address] [place] [address] #### MMA2 #### The performing lab is in the report. Creatinine [Mass/Vol] 0.90 mg/dL Normal 0.52-1.25 [facility] Comment on above: Performed By: #### H OMCY, FOLT3, HEMDF, BMP3M #### [facility] [address] [place] [address] #### MMA2 #### The performing lab is in the report. eGFR OTHER > 90.0 Normal >60 [facility] Comment on above: Result Comment: KDIG O [...] #### H OMCY, FOLT3, HEMDF, BMP3M #### [facility] [address] [place] [address] #### MMA2 #### The performing lab is in the report. GFR/1.73 sq M.predicted among blacks MDRD (S/P/Bld) [Vol rate/Area] mL/min/{1.73_m2} Normal >60 [facility] Comment on above: Performed By: #### H OMCY, FOLT3, HEMDF, BMP3M #### [facility] [address] [place] [address] #### MMA2 #### The performing lab is in the report. Urea nitrogen [Mass/Vol] 18 mg/dL High 7-17 [facility] Comment on above: Performed By: #### H OMCY, FOLT3, HEMDF, BMP3M #### [facility] [address] [place] [address] #### MMA2 #### The performing lab is in the report. Chloride [Moles/Vol] 100 mmol/L Normal 98-107 [facility] Comment on above: Performed By: #### H OMCY, FOLT3, HEMDF, BMP3M #### [facility] [address] [place] [address] #### MMA2 #### The performing lab is in the report. Potassium [Moles/Vol] 4.4 mmol/L Normal 3.5-5.1 [facility] Comment on above: Performed By: #### H OMCY, FOLT3, HEMDF, BMP3M #### [facility] [address] [place] [address] #### MMA2 #### The performing lab is in the report. Sodium [Moles/Vol] 137 mmol/L Normal 135-145 [facility] Comment on above: Performed By: #### H OMCY, FOLT3, HEMDF, BMP3M #### [facility] [address] [place] [address] #### MMA2 #### The performing lab is in the report. Anion gap [Moles/Vol] 4 mmol/L 3 - 13 mmol/L [facility] Calcium [Mass/Vol] 9.2 mg/dL 8.4 - 10. 4 mg/dL [facility] Chloride [Moles/Vol] 100 mmol/L 98 - 10 7 mmol/L [facility] CO2 [Moles/Vol] 33 mmol/L High 22 - 30 mmol/L [facility] Creatinine [Mass/Vol] 0.9 mg/dL 0.52 - 1.25 mg/dL [facility] EGFR IF NonAfrican Botswanan >90.0 >60 mL/min [facility] Comment on above: [...] - 17 mg/dL [facility] Test Performed by [facility], [address], [place], [place] [address] [facility] CBC with Auto Differentialon 07-11-2021 [...] - 10.7 10*3/uL [facility] Test Performed by [facility], [address] LAB [facility] Hemogram w/ Autodiffon 07-11 Abs Baso Cnt 0.1 10*3/uL Normal 0.0-0.2 [facility] Comment on above: Performed By: #### H OMCY, FOLT3, HEMDF, BMP3M #### [facility] [address] [place] [address] #### MMA2 #### The performing lab is in the report. Abs Neutrophile Cnt 9.2 10*3/uL High 1.8-7.0 [facility] Comment on above: Performed By: #### H OMCY, FOLT3, HEMDF, BMP3M #### [facility] [address] [place] [address] #### MMA2 #### The performing lab is in the report. Basophils/100 WBC (Bld) 0.6 % Normal 0.0-2.0 [facility] Comment on above: Performed By: #### H OMCY, FOLT3, HEMDF, BMP3M #### [facility] [address] [place] [address] #### MMA2 #### The performing lab is in the report. Eosinophils (Bld) [#/Vol] 0.2 10*3/uL Normal 0.0-0.5 [facility] Comment on above: Performed By: #### H OMCY, FOLT3, HEMDF, BMP3M #### [facility] [address] [place] [address] #### MMA2 #### The performing lab is in the report. Eosinophils/100 WBC (Bld) 1.8 % Normal 1.0-6.0 [facility] Comment on above: Performed By: #### H OMCY, FOLT3, HEMDF, BMP3M #### [facility] [address] [place] [address] #### MMA2 #### The performing lab is in the report. Erythrocyte distribution width (RBC) [Ratio] 14.0 % Normal 11.5-14.5 [facility] Comment on above: Performed By: #### H OMCY, FOLT3, HEMDF, BMP3M #### [facility] [address] [place] [address] #### MMA2 #### The performing lab is in the report. Granulocytes/100 WBC (Bld) 70.6 % Normal 40.0-80.0 [facility] Comment on above: Performed By: #### H OMCY, FOLT3, HEMDF, BMP3M #### [address] [place] [address] #### MMA2 #### The performing lab is in the report. Hematocrit (Bld) [Volume fraction] 36.0 % Low 40.0-52.0 [facility] Comment on above: Performed By: #### H OMCY, FOLT3, HEMDF, BMP3M #### [address] [place] [address] #### MMA2 #### The performing lab is in the report. Hemoglobin (Bld) [Mass/Vol] 11.8 g/dL Low 13.0-18.0 [facility] Comment on above: Performed By: #### H OMCY, FOLT3, HEMDF, BMP3M #### [facility] [address] [place] [address] #### MMA2 #### The performing lab is in the report. Lymphocytes (Bld) [#/Vol] 2.0 10*3/uL Normal 1.0-4.3 [facility] Comment on above: Performed By: #### H OMCY, FOLT3, HEMDF, BMP3M #### [address] [place] [address] #### MMA2 #### The performing lab is in the report. Lymphocytes/100 WBC (Bld) 15.6 % Low 20.0-40.0 [facility] Comment on above: Performed By: #### H OMCY, FOLT3, HEMDF, BMP3M #### [facility] [address] [place] [address] #### MMA2 #### The performing lab is in the report. MCH (RBC) [Entitic mass] 29.1 pg Normal 26.0-34.0 [facility] Comment on above: Performed By: #### H OMCY, FOLT3, HEMDF, BMP3M #### [facility] [address] [place] [address] #### MMA2 #### The performing lab is in the report. MCHC 32.8 % Normal 32.0-36.0 [facility] Comment on above: Performed By: #### H OMCY, FOLT3, HEMDF, BMP3M #### [facility] [address] [place] [address] #### MMA2 #### The performing lab is in the report. MCV (RBC) [Entitic vol] 88.6 fL Normal 80.0-98.0 [facility] Comment on above: Performed By: #### H OMCY, FOLT3, HEMDF, BMP3M #### [facility] [address] [place] [address] #### MMA2 #### The performing lab is in the report. Monocytes (Bld) [#/Vol] 1.5 10*3/uL High 0.0-0.8 [facility] Comment on above: Performed By: #### H OMCY, FOLT3, HEMDF, BMP3M #### [facility] [address] [place] [address] #### MMA2 #### The performing lab is in the report. Monocytes/100 WBC (Bld) 11.4 % High 2.0-10.0 [facility] Comment on above: Performed By: #### H OMCY, FOLT3, HEMDF, BMP3M #### [facility] [address] [place] [address] #### MMA2 #### The performing lab is in the report. Platelet mean volume (Bld) [Entitic vol] 7.4 fL Normal 7.4-12.4 [facility] Comment on above: Result Comment: MPV is a calculated measurement using platelet volume ratio. Performed By: #### H OMCY, FOLT3, HEMDF, BMP3M #### [facility] [address] [place] [address] #### MMA2 #### The performing lab is in the report. Platelets (Bld) [#/Vol] 357 10*3/uL Normal 140-440 [facility] Comment on above: Performed By: #### H OMCY, FOLT3, HEMDF, BMP3M #### [facility] [address] [place] [address] #### MMA2 #### The performing lab is in the report. RBC (Bld) [#/Vol] 4.06 10*6/uL Low 4.40-5.90 [facility] Comment on above: Performed By: #### H OMCY, FOLT3, HEMDF, BMP3M #### [facility] [address] [place] [address] #### MMA2 #### The performing lab is in the report. WBC (Bld) [#/Vol] 13.0 10*3/uL High 3.6-10.7 [facility] Comment on above: Performed By: #### H OMCY, FOLT3, HEMDF, BMP3M #### [facility] [address] [place] [address] #### MMA2 #### The performing lab is in the report. CULT./ST. RESPIRATORYon 04-2 CULT./ST. RESPIRATORY CULT./ST. RESPIRAT ORY --> Status: F Few normal respiratory olayinka. 1 Organism Pseudomonas aeruginosa Moderate 1 Organism Antibiotic Result Intrp Cefepime(MARISOL) <= 1 S Pip/Tazobactam(MARISOL) <= 4 S Meropenem(MARISOL) <= 0.25 S Ciprofloxacin(MARISOL) <= 0.25 S Gentamicin(MARISOL) <= 1 S Amikacin(MARISOL) <= 2 S Normal [facility] Comment on above: Performed By: #### C S/RE ####[address] [id number] [id number]#### S/GRM ####[address] [address] Culture, Respiratoryon 07-10 Interpretation and review of laboratory results Abnormal [facility] Respiratory Culture Few normal respirato ry olayinka. Abnormal [facility] Respiratory Culture Pseudomonas aeruginosa Abnormal [facility] Moderate [facility] Test Performed by [facility], [address] [place] [id number] [facility] HM ENDOSCOPY REPORTon 2021 Ordered by an unspecified provider. [facility] Surgical Pathologyon 022 Surgical Pathology [id number] [facility] PATHOLOGY AND LABORATORY MEDICINE [address] [place] [address] Fax - FINAL SURGICAL PATHOLOGY REPORT NAME: LUIS STEELE : 1970 50 Y Marga LOREDO NO.: [id number] LOCATION: [id number] 267 2 PROCEDURE 07/10/2021 DATE: [...] characteristics determined by the clinical laboratories of [facility] [employer] [facility]. They have not been cleared by the [...] negativity on decalcified specimens. Case reviewed at [place] [address] [place] [address]. DEPARTMENT OF PATHOLOGY AND LABORATORY MEDICINE [place], [place] [address] [email or web address] Normal [facility] Basic Metabolic Panelon 04-2 -2021 Anion gap [Moles/Vol] 5 mmol/L Normal 3-13 [facility] Comment on above: Order Comment: SLIGH T HEMOLYSIS Performed By: #### H EMDF, BMP3M #### [facility] [address] [place] [address] Calcium [Mass/Vol] 8.8 mg/dL Normal 8.4-10.4 [facility] Comment on above: Order Comment: SLIGH T HEMOLYSIS Performed By: #### H EMDF, BMP3M #### [facility] [address] [place] [address] CO2 [Moles/Vol] 28 mmol/L Normal 22-30 [facility] Comment on above: Order Comment: SLIGH T HEMOLYSIS Performed By: #### H EMDF, BMP3M #### [facility] [address] [place] [address] Glucose [Mass/Vol] 108 mg/dL High 70-100 [facility] Comment on above: Order Comment: SLIGH T HEMOLYSIS Performed By: #### H EMDF, BMP3M #### [facility] [address] [place] [address] Urea nitrogen [Mass/Vol] 13 mg/dL Normal 7-17 [facility] Comment on above: Order Comment: SLIGH T HEMOLYSIS Performed By: #### H EMDF, BMP3M #### [facility] [address] [place] [address] Creatinine [Mass/Vol] 0.88 mg/dL Normal 0.52-1.25 [facility] Comment on above: Order Comment: SLIGH T HEMOLYSIS Performed By: #### H BURKE BMP3M #### [facility] [address] [place] [address] eGFR OTHER > 90.0 Normal >60 [facility] Comment on above: Order Comment: SLIGH [...] Performed By: #### H BURKE BMP3M #### [facility] [address] [place] [address] GFR/1.73 sq M.predicted among blacks MDRD (S/P/Bld) [Vol rate/Area] mL/min/{1.73_m2} Normal >60 [facility] Comment on above: Order Comment: SLIGH T HEMOLYSIS Performed By: #### H BURKE BMP3M #### [facility] [address] [place] [address] Chloride [Moles/Vol] 98 mmol/L Normal 98-107 [facility] Comment on above: Order Comment: SLIGH T HEMOLYSIS Performed By: #### H BURKE BMP3M #### [facility] [address] [place] [address] Potassium [Moles/Vol] 4.4 mmol/L Normal 3.5-5.1 [facility] Comment on above: Order Comment: SLIGH T HEMOLYSIS Performed By: #### H LEELEE TURK3M #### [facility] [address] [place] [address] Sodium [Moles/Vol] 131 mmol/L Low 135-145 [facility] Comment on above: Order Comment: SLIGH T HEMOLYSIS Performed By: #### H LEELEE TURK3M #### [facility] [address] [place] [address] Basic Metabolic Panel w/ Ref cherie to MGon 07-08-2021 Anion gap [Moles/Vol] 5 mmol/L 3 - 13 mmol/L [facility] Calcium [Mass/Vol] 8.8 mg/dL 8.4 - 10. 4 mg/dL [facility] Chloride [Moles/Vol] 98 mmol/L 98 - 10 7 mmol/L [facility] CO2 [Moles/Vol] 28 mmol/L 22 - 30 mmol/L [facility] Creatinine [Mass/Vol] 0.88 mg/dL 0.52 - 1.25 mg/dL [facility] EGFR IF NonAfrican Botswanan >90.0 >60 mL/min [facility] Comment on above: KDIGO guidelines pro [...] - 17 mg/dL [facility] Test Performed by [facility], [address] [place], [place] [address] SLIGHT HEMOLYSIS [facility] CBC auto differentialon 06-13 Absolute Baso # 0.0 10*3/uL 0.0 - 0.2 10*3/uL [facility] Absolute Neut # 7.1 10*3/uL High 1.8 - 7.0 10*3/uL [facility] Hemoglobin.gastrointe stinal spec 1 Ql (Stl) 12.5 g/dL Low 13.0 - 18.0 g/dL [facility] Interpretation and review of laboratory results [facility] ([facility] [Mass/Vol] 33.0 % 32.0 - 36.0 % [facility] Platelet distribution width (Bld) [Ratio] 14.2 % 11.5 - 14.5 % [facility] Test Performed by [facility], [address] LAB [facility] CR Chest Portableon 07-09-19 CR Chest Portable Patient Name: LUIS STEELE Diagnostic Radiology ACCESSION EXAM DATE/TIME PROCEDURE ORDERING PROVIDER [id number] 07/08/2021 10:10 EDT CR Chest Portable UNASSIGNED, UNASSIGNED CPT code 40252 Reason For Exam (CR Chest Portable) aspiration [...] Transcribed Date and Time: 07/08/2021 10:19 Normal [facility] CT Abdomen Pelvis Wo Contras ton 07-08-2021 Patient Name: LUIS STEELE Computed Tomography ACCESSION EXAM DATE/TIME PROCEDURE ORDERING PROVIDER [id number] 07/08/2021 11:[address] Abdomen/Pelvis (No UNASSIGNED, UNASSIGNED PO, No IV) CPT code 70979 Reason For Exam (CT Abdomen/Pelvis (No PO, [...] Date and Time: 07/08/2021 12:02 [facility] Michael Villalobos MD - 07/08/2021 Patient Name: LUIS STEELE Computed Tomography ACCESSION EXAM DATE/TIME PROCEDURE ORDERING PROVIDER [id number] 07/08/2021 11:[address] Abdomen/Pelvis (No UNASSIGNED, UNASSIGNED PO, No IV) CPT code 47276 Reason For Exam (CT Abdomen/Pelvis (No PO, [...] Abdomen/Pelvis w/o Contrast [facility]: [id number] Computed Tomography ACCESSION EXAM DATE/TIME PROCEDURE ORDERING PROVIDER [id number] 07/08/2021 11:[address] Abdomen/Pelvis (No UNASSIGNED, UNASSIGNED PO, No IV) CPT code 68492 Reason For Exam (CT Abdomen/Pelvis (No PO, [...] Transcribed Date and Time: 07/08/2021 12:02 Normal [facility] CT CHEST WO CONTRASTon 07-08 Patient Name: LUIS STEELE Computed Tomography ACCESSION EXAM DATE/TIME PROCEDURE ORDERING PROVIDER [id number] 07/08/2021 11:[address] Thorax w/o Contrast UNASSIGNED, UNASSIGNED CPT code 07713 Reason For Exam (CT Thorax w/o Contrast) [...] JASON Transcribed Date and Time: 07/08/2021 12:02 [facility] Michael Villalobos MD - 07/08/2021 Patient Name: [id number] Computed Tomography ACCESSION EXAM DATE/TIME PROCEDURE ORDERING PROVIDER [id number] 07/08/2021 11:[address] Thorax w/o Contrast UNASSIGNED, UNASSIGNED CPT code 63787 Reason For Exam (CT Thorax w/o Contrast) [...] Tomography ACCESSION EXAM DATE/TIME PROCEDURE ORDERING PROVIDER [id number] 07/08/2021 11:[address] Thorax w/o Contrast UNASSIGNED, UNASSIGNED CPT code 40896 Reason For Exam (CT Thorax w/o Contrast) [...] Transcribed Date and Time: 07/08/2021 12:02 Normal [facility] ESOPHAGRAMon 07-08-2021 Patient Name: LUIS STEELE Fluoroscopy ACCESSION EXAM DATE/TIME PROCEDURE ORDERING PROVIDER [id number] 07/08/2021 11:30 EDT RF Esophagus UNASSIGNED, UNASSIGNED CPT code 02992 Reason For Exam (RF Esophagus) incomplete esophagogram [...] Fluoroscopy ACCESSION EXAM DATE/TIME PROCEDURE ORDERING PROVIDER [id number] 07/08/2021 11:30 EDT RF Esophagus UNASSIGNED, UNASSIGNED CPT code 85734 Reason For Exam (RF Esophagus) incomplete esophagogram [...] M Transcribed Date and Time: 07/08/2021 2:36 [facility] Work Phone: [place] ESOPHAGRAMOrdered By: Juan Vo on 07-08-2021 [facility] Work Phone: Hemogram w/ Autodiffon 07-08 Abs Baso Cnt 0.0 10*3/uL Normal 0.0-0.2 [facility] Comment on above: Performed By: #### H EMDF, BMP3M #### [facility] [address] [place] [address] Abs Neutrophile Cnt 7.1 10*3/uL High 1.8-7.0 [facility] Comment on above: Performed By: #### H EMDF, BMP3M #### [facility] [address] [place] [address] Erythrocyte distribution width (RBC) [Ratio] 14.2 % Normal 11.5-14.5 [facility] Comment on above: Performed By: #### H EMDF, BMP3M #### [facility] [address] [place] [address] Hemoglobin (Bld) [Mass/Vol] 12.5 g/dL Low 13.0-18.0 [facility] Comment on above: Performed By: #### H EMDF, BMP3M #### [facility] [address] [place] [address] MCHC 33.0 % Normal 32.0-36.0 [facility] Comment on above: Performed By: #### H EMDF, BMP3M #### [facility] [address] [place] [address] Basophils/100 WBC (Bld) 0.2 % Normal 0.0-2.0 [facility] Comment on above: Performed By: #### H EMDF, BMP3M #### [facility] [address] [place] [address] Eosinophils (Bld) [#/Vol] 0.6 10*3/uL High 0.0-0.5 [facility] Comment on above: Performed By: #### H EMDF, BMP3M #### [facility] [address] [place] [address] Eosinophils/100 WBC (Bld) 5.9 % Normal 1.0-6.0 [facility] Comment on above: Performed By: #### H EMDF, BMP3M #### [facility] [address] [place] [address] Granulocytes/100 WBC (Bld) 67.1 % Normal 40.0-80.0 [facility] Comment on above: Performed By: #### H EMDF, BMP3M #### [facility] [address] [place] [address] Hematocrit (Bld) [Volume fraction] 37.9 % Low 40.0-52.0 [facility] Comment on above: Performed By: #### H EMDF, BMP3M #### [facility] [address] [place] [address] Lymphocytes (Bld) [#/Vol] 1.6 10*3/uL Normal 1.0-4.3 [facility] Comment on above: Performed By: #### H EMDF, BMP3M #### [facility] [address] [place] [address] Lymphocytes/100 WBC (Bld) 15.2 % Low 20.0-40.0 [facility] Comment on above: Performed By: #### H EMDF, BMP3M #### [facility] [address] [place] [address] MCH (RBC) [Entitic mass] 29.2 pg Normal 26.0-34.0 [facility] Comment on above: Performed By: #### H EMDF, BMP3M #### [facility] [address] [place] [address] MCV (RBC) [Entitic vol] 88.7 fL Normal 80.0-98.0 [facility] Comment on above: Performed By: #### H EMDF, BMP3M #### [facility] [address] [place] [address] Monocytes (Bld) [#/Vol] 1.2 10*3/uL High 0.0-0.8 [facility] Comment on above: Performed By: #### H EMDJamee, BMP3M #### [facility] [address] [place] [address] Monocytes/100 WBC (Bld) 11.6 % High 2.0-10.0 [facility] Comment on above: Performed By: #### H EMDF BMP3M #### [facility] [facility] [address] [place] [address] Platelet mean volume (Bld) [Entitic vol] 7.5 fL Normal 7.4-12.4 [facility] Comment on above: MPV is a calculated measurement using platelet volume ratio. Result Comment: MPV is a calculated measurement using platelet volume ratio. Performed By: #### H EMDJamee BMP3M #### [facility] [facility] [address] [place] [address] Platelets (Bld) [#/Vol] 313 10*3/uL Normal 140-440 [facility] Comment on above: Performed By: #### H EMDJamee BMP3M #### [facility] [facility] [address] [place] [address] RBC (Bld) [#/Vol] 4.27 10*6/uL Low 4.40-5.90 [facility] Comment on above: Performed By: #### H EMDF, BMP3M #### [facility] [address] [place] [address] WBC (Bld) [#/Vol] 10.5 10*3/uL Normal 3.6-10.7 [facility] Comment on above: Performed By: #### H EMDF BMP3M #### [facility] [facility] [address] [place] [address] METHYLMALONIC ACID, SERUMon 07-08-2021 [facility] MRI BRAIN WO CONTRASTon 06-13 Patient Name: LUIS STEELE Magnetic Resonance Imaging ACCESSION EXAM DATE/TIME PROCEDURE ORDERING PROVIDER [id number] 07/08/2021 18:05 EDT MRI Brain w/o Contrast UNASSIGNED, UNASSIGNED CPT code 01486 Reason For Exam (MRI Brain w/o Contrast) [...] R Transcribed Date and Time: 07/08/2021 7:26 [facility] Gerald Husain MD - 07/08/2021 Patient [facility]: [id number] Magnetic Resonance Imaging ACCESSION EXAM DATE/TIME PROCEDURE ORDERING PROVIDER [id number] 07/08/2021 18:05 EDT MRI Brain w/o Contrast UNASSIGNED, UNASSIGNED CPT code 44260 Reason For Exam (MRI Brain w/o Contrast) [...] R Transcribed Date and Time: 07/08/2021 7:26 [facility] Work Phone: MRI BRAIN WO CONTRASTOrdered By: Gerald Husain on 07-08-2021 [facility] Work Phone: MRI Brain w/o Contraston MRI Brain w/o Contrast Patient Name: [id number] Magnetic Resonance Imaging ACCESSION EXAM DATE/TIME PROCEDURE ORDERING PROVIDER [id number] 07/08/2021 18:05 EDT MRI Brain w/o Contrast UNASSIGNED, UNASSIGNED CPT code 24344 Reason For Exam (MRI Brain w/o Contrast) [...] Transcribed Date and Time: 07/08/2021 7:26 Normal [facility] Methylmalonic Acidon 022 Methylmalonic Acid 0.26 umol/L Normal 0.00-0.40 [facility] Comment on above: INTERPRETIVE INFORMA TION: MMA Serum/Plasma, Vitamin B12 Status This test was developed and its performance characteristics determined by [facility]. It has not been cleared or approved by the [place] Food and Drug Administration. This test was performed in a CLIA certified laboratory and is intended for clinical purposes. Performed By: [facility] [address] [place] [address] Account Coordinator: Riana Crowley MD Result Comment: INTE RPRETIVE INFORMATION: MMA Serum/Plasma, Vitamin B12 Status This test was developed and its performance characteristics determined by [facility]. It has not been cleared or approved by the [place] Food and Drug Administration. This test was performed in a CLIA certified laboratory and is intended for clinical purposes. Performed By: [facility] [address] [place] [address] Account Coordinator: Riana Crowley MD Performed By: #### H OMCY, FOLT3, HEMDF, BMP3M #### [facility] [facility] [address] [place] [address] #### MMA2 #### The performing lab is in the report. No Panel Informationon 07-08 Radiology Study observation (narrative) [facility] Work Phone: Radiology Study observation (narrative) [facility] Work Phone: RF Esophaguson 07-08-2021 RF Esophagus Patient Name: LUIS STEELE Fluoroscopy ACCESSION EXAM DATE/TIME PROCEDURE ORDERING PROVIDER [id number] 07/08/2021 11:30 EDT RF Esophagus UNASSIGNED, UNASSIGNED CPT code 10389 Reason For Exam (RF Esophagus) incomplete esophagogram [...] Transcribed Date and Time: 07/08/2021 2:36 Normal [facility] XR CHEST PORTABLEon 07-09-19 Patient Name: LUIS STEELE Diagnostic Radiology ACCESSION EXAM DATE/TIME PROCEDURE ORDERING PROVIDER [id number] 07/08/2021 10:10 EDT CR Chest Portable UNASSIGNED, UNASSIGNED CPT code 89463 Reason For Exam (CR Chest Portable) aspiration [...] JASON Transcribed Date and Time: 07/08/2021 10:19 [facility] Michael Villalobos MD - 07/08/2021 Patient Name: LUIS STEELE Diagnostic Radiology ACCESSION EXAM DATE/TIME PROCEDURE ORDERING PROVIDER [id number] 07/08/2021 10:10 EDT CR Chest Portable UNASSIGNED, UNASSIGNED CPT code 05056 Reason For Exam (CR Chest Portable) aspiration [...] JASON Transcribed Date and Time: 07/08/2021 10:19 [facility] Work Phone: [facility] Work Phone: Basic Metabolic Panelon - Anion gap [Moles/Vol] 5 mmol/L Normal 3-13 [facility] Comment on above: Performed By: #### H OMCY, FOLT3, HEMDF, BMP3M #### [facility] [address] [place] [address] #### MMA2 #### The performing lab is in the report. Calcium [Mass/Vol] 7.3 mg/dL Low 8.4-10.4 [facility] Comment on above: Performed By: #### H OMCY, FOLT3, HEMDF, BMP3M #### [facility] [address] [place] [address] #### MMA2 #### The performing lab is in the report. CO2 [Moles/Vol] 23 mmol/L Normal 22-30 [facility] Comment on above: Performed By: #### H OMCY, FOLT3, HEMDF, BMP3M #### [facility] [address] [place] [address] #### MMA2 #### The performing lab is in the report. Creatinine [Mass/Vol] 0.66 mg/dL Normal 0.52-1.25 [facility] Comment on above: Performed By: #### H OMCY, FOLT3, HEMDF, BMP3M #### [facility] [address] [place] [address] #### MMA2 #### The performing lab is in the report. eGFR OTHER > 90.0 Normal >60 [facility] Comment on above: Result Comment: KDIG O [...] #### H OMCY, FOLT3, HEMDF, BMP3M #### [facility] [address] [place] [address] #### MMA2 #### The performing lab is in the report. GFR/1.73 sq M.predicted among blacks MDRD (S/P/Bld) [Vol rate/Area] mL/min/{1.73_m2} Normal >60 [facility] Comment on above: Performed By: #### H OMCY, FOLT3, HEMDF, BMP3M #### [facility] [address] [place] [address] #### MMA2 #### The performing lab is in the report. Glucose [Mass/Vol] 87 mg/dL Normal 70-100 [facility] Comment on above: Performed By: #### H OMCY, FOLT3, HEMDF, BMP3M #### [facility] [address] [place] [address] #### MMA2 #### The performing lab is in the report. Urea nitrogen [Mass/Vol] 14 mg/dL Normal 7-17 [facility] Comment on above: Performed By: #### H OMCY, FOLT3, HEMDF, BMP3M #### [facility] [address] [place] [address] #### MMA2 #### The performing lab is in the report. Chloride [Moles/Vol] 108 mmol/L High 98-107 [facility] Comment on above: Performed By: #### H OMCY, FOLT3, HEMDF, BMP3M #### [facility] [address] [place] [address] #### MMA2 #### The performing lab is in the report. Potassium [Moles/Vol] 3.2 mmol/L Low 3.5-5.1 [facility] Comment on above: Performed By: #### H OMCY, FOLT3, HEMDF, BMP3M #### [facility] [address] [place] [address] #### MMA2 #### The performing lab is in the report. Sodium [Moles/Vol] 136 mmol/L Normal 135-145 [facility] Comment on above: Performed By: #### H OMCY, FOLT3, HEMDF, BMP3M #### [facility] [address] [place] [address] #### MMA2 #### The performing lab is [...] - 1.25 mg/dL [facility] EGFR IF NonAfrican Botswanan >90.0 >60 mL/min [facility] Comment on above: [...] - 17 mg/dL [facility] Test Performed by [facility], [address] [place], [place] [address] [facility] LAB [facility] CBC auto differentialon - Absolute Baso # [...] - 10.7 10*3/uL [facility] Test Performed by [facility], [address], [place], [place] [id number] [address] LAB [facility] Hemogram w/ Autodiffon 07-07 Abs Baso Cnt 0.0 10*3/uL Normal 0.0-0.2 [facility] Comment on above: Performed By: #### H OMCY, FOLT3, HEMDF, BMP3M #### [facility] [address] [place] [address] #### MMA2 #### The performing lab is in the report. Abs Neutrophile Cnt 6.1 10*3/uL Normal 1.8-7.0 [facility] Comment on above: Performed By: #### H OMCY, FOLT3, HEMDF, BMP3M #### [place] [address] [place] [address] #### MMA2 #### The performing lab is in the report. Basophils/100 WBC (Bld) 0.2 % Normal 0.0-2.0 [facility] Comment on above: Performed By: #### H OMCY, FOLT3, HEMDF, BMP3M #### [place] [address] [place] [address] #### MMA2 #### The performing lab is in the report. Eosinophils (Bld) [#/Vol] 0.5 10*3/uL Normal 0.0-0.5 [facility] Comment on above: Performed By: #### H OMCY, FOLT3, HEMDF, BMP3M #### [place] [address] [place] [address] #### MMA2 #### The performing lab is in the report. Eosinophils/100 WBC (Bld) 5.1 % Normal 1.0-6.0 [facility] Comment on above: Performed By: #### H OMCY, FOLT3, HEMDF, BMP3M #### [place] [address] [place] [address] #### MMA2 #### The performing lab is in the report. Erythrocyte distribution width (RBC) [Ratio] 13.8 % Normal 11.5-14.5 [facility] Comment on above: Performed By: #### H OMCY, FOLT3, HEMDF, BMP3M #### [place] [address] [place] [address] #### MMA2 #### The performing lab is in the report. Granulocytes/100 WBC (Bld) 65.0 % Normal 40.0-80.0 [facility] Comment on above: Performed By: #### H OMCY, FOLT3, HEMDF, BMP3M #### [facility] [address] [place] [address] #### MMA2 #### The performing lab is in the report. Hematocrit (Bld) [Volume fraction] 32.4 % Low 40.0-52.0 [facility] Comment on above: Performed By: #### H OMCY, FOLT3, HEMDF, BMP3M #### [address] [facility] [place] [place] [address] #### MMA2 #### The performing lab is in the report. Hemoglobin (Bld) [Mass/Vol] 10.6 g/dL Low 13.0-18.0 [facility] Comment on above: Performed By: #### H OMCY, FOLT3, HEMDF, BMP3M #### [address] [place] [address] #### MMA2 #### The performing lab is in the report. Lymphocytes (Bld) [#/Vol] 1.6 10*3/uL Normal 1.0-4.3 [facility] Comment on above: Performed By: #### H OMCY, FOLT3, HEMDF, BMP3M #### [address] [place] [address] #### MMA2 #### The performing lab is in the report. Lymphocytes/100 WBC (Bld) 17.5 % Low 20.0-40.0 [facility] Comment on above: Performed By: #### H OMCY, FOLT3, HEMDF, BMP3M #### [facility] [address] [facility] [place] [address] #### MMA2 #### The performing lab is in the report. MCH (RBC) [Entitic mass] 29.5 pg Normal 26.0-34.0 [facility] Comment on above: Performed By: #### H OMCY, FOLT3, HEMDF, BMP3M #### [facility] [address] [place] [address] #### MMA2 #### The performing lab is in the report. MCHC 32.6 % Normal 32.0-36.0 [facility] Comment on above: Performed By: #### H OMCY, FOLT3, HEMDF, BMP3M #### [facility] [address] [place] [address] #### MMA2 #### The performing lab is in the report. MCV (RBC) [Entitic vol] 90.4 fL Normal 80.0-98.0 [facility] Comment on above: Performed By: #### H OMCY, FOLT3, HEMDF, BMP3M #### [facility] [address] [place] [address] #### MMA2 #### The performing lab is in the report. Monocytes (Bld) [#/Vol] 1.1 10*3/uL High 0.0-0.8 [facility] Comment on above: Performed By: #### H OMCY, FOLT3, HEMDF, BMP3M #### [facility] [address] [place] [address] #### MMA2 #### The performing lab is in the report. Monocytes/100 WBC (Bld) 12.2 % High 2.0-10.0 [facility] Comment on above: Performed By: #### H OMCY, FOLT3, HEMDF, BMP3M #### [facility] [address] [place] [address] #### MMA2 #### The performing lab is in the report. Platelet mean volume (Bld) [Entitic vol] 7.5 fL Normal 7.4-10.4 [facility] Comment on above: Performed By: #### H OMCY, FOLT3, HEMDF, BMP3M #### [facility] [address] [place] [address] #### MMA2 #### The performing lab is in the report. Platelets (Bld) [#/Vol] 239 10*3/uL Normal 140-440 [facility] Comment on above: Performed By: #### H OMCY, FOLT3, HEMDF, BMP3M #### [facility] [address] [place] [place] [address] #### MMA2 #### The performing lab is in the report. RBC (Bld) [#/Vol] 3.58 10*6/uL Low 4.40-5.90 [facility] Comment on above: Performed By: #### H OMCY, FOLT3, HEMDF, BMP3M #### [facility] [address] [place] [address] #### MMA2 #### The performing lab is in the report. WBC (Bld) [#/Vol] 9.3 10*3/uL Normal 3.6-10.7 [facility] Comment on above: Performed By: #### H OMCY, FOLT3, HEMDF, BMP3M #### [facility] [address] [place] [address] #### MMA2 #### The performing lab is in the report. Magnesiumon 07-07-2021 Magnesium [Mass/Vol] 1.6 mg/dL Normal 1.6-2.3 [facility] Comment on above: Performed By: #### H OMCY, FOLT3, HEMDF, BMP3M #### [facility] [address] [place] [address] #### MMA2 #### The performing lab is in the report. Magnesium [Mass/Vol] 1.6 mg/dL 1.6 - 2 .3 mg/dL [facility] Test Performed by [facility], [address] [place], [place] [address] [facility] LAB [facility] Basic Metabolic Panelon 06-13 Calcium [Mass/Vol] 9.0 mg/dL Normal 8.4-10.4 [facility] Comment on above: Performed By: #### H OMCY, FOLT3, HEMDF, BMP3M #### [facility] [address] [place] [address] #### MMA2 #### The performing lab is in the report. Glucose [Mass/Vol] 108 mg/dL High 70-100 [facility] Comment on above: Performed By: #### H OMCY, FOLT3, HEMDF, BMP3M #### [facility] [address] [place] [address] #### MMA2 #### The performing lab is in the report. Anion gap [Moles/Vol] 4 mmol/L Normal 3-13 [facility] Comment on above: Performed By: #### H OMCY, FOLT3, HEMDF, BMP3M #### [facility] [address] [place] [address] #### MMA2 #### The performing lab is in the report. CO2 [Moles/Vol] 34 mmol/L High 22-30 [facility] Comment on above: Performed By: #### H OMCY, FOLT3, HEMDF, BMP3M #### [facility] [address] [place] [address] #### MMA2 #### The performing lab is in the report. Creatinine [Mass/Vol] 0.81 mg/dL Normal 0.52-1.25 [facility] Comment on above: Performed By: #### H OMCY, FOLT3, HEMDF, BMP3M #### [facility] [address] [place] [address] #### MMA2 #### The performing lab is in the report. eGFR OTHER > 90.0 Normal >60 [facility] Comment on above: Result Comment: KDIG O [...] #### H OMCY, FOLT3, HEMDF, BMP3M #### [facility] [address] [place] [address] #### MMA2 #### The performing lab is in the report. GFR/1.73 sq M.predicted among blacks MDRD (S/P/Bld) [Vol rate/Area] mL/min/{1.73_m2} Normal >60 [facility] Comment on above: Performed By: #### H OMCY, FOLT3, HEMDF, BMP3M #### [facility] [address] [place] [address] #### MMA2 #### The performing lab is in the report. Urea nitrogen [Mass/Vol] 14 mg/dL Normal 7-17 [facility] Comment on above: Performed By: #### H OMCY, FOLT3, HEMDF, BMP3M #### [facility] [address] [place] [address] #### MMA2 #### The performing lab is in the report. Chloride [Moles/Vol] 100 mmol/L Normal 98-107 [facility] Comment on above: Performed By: #### H OMCY, FOLT3, HEMDF, BMP3M #### [facility] [address] [place] [address] #### MMA2 #### The performing lab is in the report. Potassium [Moles/Vol] 4.0 mmol/L Normal 3.5-5.1 [facility] Comment on above: Performed By: #### H OMCY, FOLT3, HEMDF, BMP3M #### [facility] [address] [place] [address] #### MMA2 #### The performing lab is in the report. Sodium [Moles/Vol] 137 mmol/L Normal 135-145 [facility] Comment on above: Performed By: #### H OMCY, FOLT3, HEMDF, BMP3M #### [facility] [address] [place] [address] #### MMA2 #### The performing lab is [...] - 1.25 mg/dL [facility] EGFR IF NonAfrican [place]an >90.0 >60 mL/min [facility] Comment on above: [...] - 17 mg/dL [facility] Test Performed by [facility], [address] [place], [place] [address] [facility] CBC auto differentialon 06-13 Absolute [...] 10*6/uL Low 4.40 - 5.9 0 10*6/uL [facility] (Bld[facility] [#/Vol] 10.5 10*3/uL 3.6 - 10.7 10*3/uL [facility] Test Performed by [facility], [address] [place], [place] [id number] [address] LAB [facility] CULT[facility] BLOODon 07-06-2021 Microscopic examination of blood, culture CULTURE BLOOD --> Status: F No growth at 5 days. Normal [facility] Comment on above: Performed By: #### H EMDF, BMP3M #### [facility] [address] [place] [address] CULTURE BLOOD (Two)on 2021 Microscopic examination of blood, culture CULTURE BLOOD (Two) --> Status: F No growth at 5 days. Normal [facility] Comment on above: Performed By: #### H EMDF, BMP3M #### [facility] [address] [place] [address] Gram Stainon 07-06-2021 Gram Stain Result Many polymorphonucle ar cells/lpf. Few epithelial cells/lpf. Many gram negative bacilli. Few gram positive cocci in clusters. Few gram positive bacilli. [facility] Test Performed by [facility], [address] [place] [id number] [place] [address] LAB [facility] w/ Autodiffon 07-06 Abs Baso Cnt 0.0 10*3/uL Normal 0.0-0.2 [facility] Comment on above: Performed By: #### H OMCY, FOLT3, HEMDF, BMP3M #### [facility] [address] [place] [address] #### MMA2 #### The performing lab is in the report. Abs Neutrophile Cnt 6.8 10*3/uL Normal 1.8-7.0 [facility] Comment on above: Performed By: #### H OMCY, FOLT3, HEMDF, BMP3M #### [facility] [address] [place] [address] #### MMA2 #### The performing lab is in the report. Basophils/100 WBC (Bld) 0.3 % Normal 0.0-2.0 [facility] Comment on above: Performed By: #### H OMCY, FOLT3, HEMDF, BMP3M #### [facility] [address] [place] [address] #### MMA2 #### The performing lab is in the report. Eosinophils (Bld) [#/Vol] 0.5 10*3/uL Normal 0.0-0.5 [facility] Comment on above: Performed By: #### H OMCY, FOLT3, HEMDF, BMP3M #### [facility] [address] [place] [address] #### MMA2 #### The performing lab is in the report. Eosinophils/100 WBC (Bld) 5.2 % Normal 1.0-6.0 [facility] Comment on above: Performed By: #### H OMCY, FOLT3, HEMDF, BMP3M #### [facility] [address] [place] [address] #### MMA2 #### The performing lab is in the report. Erythrocyte distribution width (RBC) [Ratio] 14.2 % Normal 11.5-14.5 [facility] Comment on above: Performed By: #### H OMCY, FOLT3, HEMDF, BMP3M #### [facility] [address] [place] [address] #### MMA2 #### The performing lab is in the report. Granulocytes/100 WBC (Bld) 64.8 % Normal 40.0-80.0 [facility] Comment on above: Performed By: #### H OMCY, FOLT3, HEMDF, BMP3M #### [facility] [address] [place] [address] #### MMA2 #### The performing lab is in the report. Hematocrit (Bld) [Volume fraction] 37.9 % Low 40.0-52.0 [facility] Comment on above: Performed By: #### H OMCY, FOLT3, HEMDF, BMP3M #### [facility] [address] [place] [address] #### MMA2 #### The performing lab is in the report. Hemoglobin (Bld) [Mass/Vol] 12.4 g/dL Low 13.0-18.0 [facility] Comment on above: Performed By: #### H OMCY, FOLT3, HEMDF, BMP3M #### [facility] [address] [place] [address] #### MMA2 #### The performing lab is in the report. Lymphocytes (Bld) [#/Vol] 1.9 10*3/uL Normal 1.0-4.3 [facility] Comment on above: Performed By: #### H OMCY, FOLT3, HEMDF, BMP3M #### [facility] [address] [place] [address] #### MMA2 #### The performing lab is in the report. Lymphocytes/100 WBC (Bld) 17.9 % Low 20.0-40.0 [facility] Comment on above: Performed By: #### H OMCY, FOLT3, HEMDF, BMP3M #### [facility] [address] [place] [address] #### MMA2 #### The performing lab is in the report. MCH (RBC) [Entitic mass] 29.1 pg Normal 26.0-34.0 [facility] Comment on above: Performed By: #### H OMCY, FOLT3, HEMDF, BMP3M #### [facility] [address] [place] [address] #### MMA2 #### The performing lab is in the report. MCHC 32.9 % Normal 32.0-36.0 [facility] Comment on above: Performed By: #### H OMCY, FOLT3, HEMDF, BMP3M #### [facility] [address] [place] [address] #### MMA2 #### The performing lab is in the report. MCV (RBC) [Entitic vol] 88.5 fL Normal 80.0-98.0 [facility] Comment on above: Performed By: #### H OMCY, FOLT3, HEMDF, BMP3M #### [facility] [address] [place] [address] #### MMA2 #### The performing lab is in the report. Monocytes (Bld) [#/Vol] 1.2 10*3/uL High 0.0-0.8 [facility] Comment on above: Performed By: #### H OMCY, FOLT3, HEMDF, BMP3M #### [facility] [address] [place] [address] #### MMA2 #### The performing lab is in the report. Monocytes/100 WBC (Bld) 11.8 % High 2.0-10.0 [facility] Comment on above: Performed By: #### H OMCY, FOLT3, HEMDF, BMP3M #### [facility] [address] [place] [address] #### MMA2 #### The performing lab is in the report. Platelet mean volume (Bld) [Entitic vol] 7.8 fL Normal 7.4-10.4 [facility] Comment on above: Performed By: #### H OMCY, FOLT3, HEMDF, BMP3M #### [facility] [address] [place] [address] #### MMA2 #### The performing lab is in the report. Platelets (Bld) [#/Vol] 314 10*3/uL Normal 140-440 [facility] Comment on above: Performed By: #### H OMCY, FOLT3, HEMDF, BMP3M #### [facility] [address] [place] [address] #### MMA2 #### The performing lab is in the report. RBC (Bld) [#/Vol] 4.28 10*6/uL Low 4.40-5.90 [facility] Comment on above: Performed By: #### H OMCY, FOLT3, HEMDF, BMP3M #### [facility] [address] [place] [address] #### MMA2 #### The performing lab is in the report. WBC (Bld) [#/Vol] 10.5 10*3/uL Normal 3.6-10.7 [facility] Comment on above: Performed By: #### H OMCY, FOLT3, HEMDF, BMP3M #### [facility] [address] [place] [address] #### MMA2 #### The performing lab is in the report. No Panel InformationOrdered By: Tali Holcomb on 07-06-2021 Blood Culture, Routine No growth at 5 days. [facility] No Panel Informationon 07-06 Test Performed by [facility], [address] [place] [id number] [facility] LAB STAIN GRAMon 07-06-2021 STAIN GRAM STAIN GRAM --> Statu s: F Many polymorphonuclear cells/lpf. Few epithelial cells/lpf. Many gram negative bacilli. Few gram positive cocci in clusters. Few gram positive bacilli. Few epithelial cells/lpf. Many gram negative bacilli. Few gram positive cocci in clusters. Few gram positive bacilli. Normal [facility] Comment on above: Performed By: #### C S/RE ####[id number] [place] [id number] [id number]#### S/GRM ####[address] [id number] Basic Metabolic Panelon 06-13 Anion gap [Moles/Vol] 5 mmol/L Normal 3-13 [facility] Comment on above: Performed By: #### H EMDF, BMP3M #### [facility] [address] [place] [address] Calcium [Mass/Vol] 9.0 mg/dL Normal 8.4-10.4 [facility] Comment on above: Performed By: #### H EMDF, BMP3M #### [facility] [address] [place] [address] CO2 [Moles/Vol] 29 mmol/L Normal 22-30 [facility] Comment on above: Performed By: #### H EMDF, BMP3M #### [facility] [address] [place] [address] Creatinine [Mass/Vol] 0.86 mg/dL Normal 0.52-1.25 [facility] Comment on above: Performed By: #### H BURKE BMP3M #### [facility] [address] [place] [address] eGFR OTHER > 90.0 Normal >60 [facility] Comment on above: Result Comment: KDIG O [...] Performed By: #### Aaliyah TURK BMP3M #### [facility] [address] [place] [address] GFR/1.73 sq M.predicted among blacks MDRD (S/P/Bld) [Vol rate/Area] mL/min/{1.73_m2} Normal >60 [facility] Comment on above: Performed By: #### H BURKE BMP3M #### [facility] [address] [place] [address] Glucose [Mass/Vol] 112 mg/dL High 70-100 [facility] Comment on above: Performed By: #### H BURKE BMP3M #### [facility] [address] [place] [address] Urea nitrogen [Mass/Vol] 19 mg/dL High 7-17 [facility] Comment on above: Performed By: #### Aaliyah TURK BMP3M #### [facility] [address] [place] [address] Chloride [Moles/Vol] 100 mmol/L Normal 98-107 [facility] Comment on above: Performed By: #### H AWA TURK #### [facility] [address] [place] [address] Potassium [Moles/Vol] 3.7 mmol/L Normal 3.5-5.1 [facility] Comment on above: Performed By: #### H AWA TURK #### [facility] [address] [place] [address] Sodium [Moles/Vol] 134 mmol/L Low 135-145 [facility] Comment on above: Performed By: #### H AWA TURK #### [facility] [address] [place] [address] Basic Metabolic Panel w/ Ref cherie to MGon 07-05-2021 Anion gap [Moles/Vol] 5 mmol/L 3 - 13 mmol/L [facility] Calcium [Mass/Vol] 9.0 mg/dL 8.4 - 10. 4 mg/dL [facility] Chloride [Moles/Vol] 100 mmol/L 98 - 10 7 mmol/L [facility] CO2 [Moles/Vol] 29 mmol/L 22 - 30 mmol/L [facility] Creatinine [Mass/Vol] 0.86 mg/dL 0.52 - 1.25 mg/dL [facility] EGFR IF NonAfrican [place]wanan >90.0 >60 mL/min [facility] Comment on above: KDIGO guidelines pro vide [...] - 17 mg/dL [facility] Test Performed by [facility], [address] [place] [id number] [place] [address] LAB [facility] CBC auto differentialon 06-13 Absolute Baso [...] 12.6 10*3/uL High 3.6 - 10.7 10*3/uL [facility] Test Performed by [facility], [address] [place], [place] [address] [facility] LAB [facility] w/ Autodiffon 07-05 Abs Baso Cnt 0.0 10*3/uL Normal 0.0-0.2 [facility] Comment on above: Performed By: #### H EMDF BMP3M #### [facility] [address] [place] [address] Abs Neutrophile Cnt 9.0 10*3/uL High 1.8-7.0 [facility] Comment on above: Performed By: #### H EMDF, BMP3M #### [facility] [address] [place] [address] Basophils/100 WBC (Bld) 0.3 % Normal 0.0-2.0 [facility] Comment on above: Performed By: #### H EMDF, BMP3M #### [facility] [address] [place] [address] Eosinophils (Bld) [#/Vol] 0.5 10*3/uL Normal 0.0-0.5 [facility] Comment on above: Performed By: #### H EMDF, BMP3M #### [facility] [address] [place] [address] Eosinophils/100 WBC (Bld) 3.9 % Normal 1.0-6.0 [facility] Comment on above: Performed By: #### H EMDF, BMP3M #### [facility] [address] [place] [address] Erythrocyte distribution width (RBC) [Ratio] 14.4 % Normal 11.5-14.5 [facility] Comment on above: Performed By: #### H EMDF, BMP3M #### [facility] [address] [place] [address] Granulocytes/100 WBC (Bld) 71.5 % Normal 40.0-80.0 [facility] Comment on above: Performed By: #### H EMDF, BMP3M #### [facility] [address] [place] [address] Hematocrit (Bld) [Volume fraction] 38.7 % Low 40.0-52.0 [facility] Comment on above: Performed By: #### H EMDF, BMP3M #### [facility] [address] [place] [address] Hemoglobin (Bld) [Mass/Vol] 12.8 g/dL Low 13.0-18.0 [facility] Comment on above: Performed By: #### H EMDF, BMP3M #### [facility] [address] [place] [address] Lymphocytes (Bld) [#/Vol] 1.7 10*3/uL Normal 1.0-4.3 [facility] Comment on above: Performed By: #### H EMDF, BMP3M #### [facility] [address] [place] [address] Lymphocytes/100 WBC (Bld) 13.3 % Low 20.0-40.0 [facility] Comment on above: Performed By: #### H EMDF, BMP3M #### [facility] [address] [place] [address] MCH (RBC) [Entitic mass] 29.6 pg Normal 26.0-34.0 [facility] Comment on above: Performed By: #### H EMDF, BMP3M #### [facility] [address] [place] [address] MCHC 33.1 % Normal 32.0-36.0 [facility] Comment on above: Performed By: #### H EMDF, BMP3M #### [facility] [address] [place] [address] MCV (RBC) [Entitic vol] 89.5 fL Normal 80.0-98.0 [facility] Comment on above: Performed By: #### H EMDF, BMP3M #### [facility] [address] [place] [address] Monocytes (Bld) [#/Vol] 1.4 10*3/uL High 0.0-0.8 [facility] Comment on above: Performed By: #### H EMDF, BMP3M #### [facility] [address] [place] [address] Monocytes/100 WBC (Bld) 11.0 % High 2.0-10.0 [facility] Comment on above: Performed By: #### H EMDF, BMP3M #### [facility] [address] [place] [address] Platelet mean volume (Bld) [Entitic vol] 7.2 fL Low 7.4-10.4 [facility] Comment on above: Performed By: #### H EMDF, BMP3M #### [facility] [address] [place] [address] Platelets (Bld) [#/Vol] 284 10*3/uL Normal 140-440 [facility] Comment on above: Performed By: #### H EMDF, BMP3M #### [facility] [address] [place] [address] RBC (Bld) [#/Vol] 4.32 10*6/uL Low 4.40-5.90 [facility] Comment on above: Performed By: #### H EMDF, BMP3M #### [facility] [address] [place] [address] WBC (Bld) [#/Vol] 12.6 10*3/uL High 3.6-10.7 [facility] Comment on above: Performed By: #### H EMDF, BMP3M #### [facility] [address] [place] [place] [address] Basic Metabolic Panelon 04-2 Calcium [Mass/Vol] 9.1 mg/dL Normal 8.4-10.4 [facility] Comment on above: Order Comment: Sligh t Hemolysis. Performed By: #### H OMCY, FOLT3, HEMDF, BMP3M #### [facility] [address] [place] [address] #### MMA2 #### The performing lab is in the report. Anion gap [Moles/Vol] 4 mmol/L Normal 3-13 [facility] Comment on above: Order Comment: Sligh t Hemolysis. Performed By: #### H OMCY, FOLT3, HEMDF, BMP3M #### [facility] [address] [place] [address] #### MMA2 #### The performing lab is in the report. CO2 [Moles/Vol] 32 mmol/L High 22-30 [facility] Comment on above: Order Comment: Sligh t Hemolysis. Performed By: #### H OMCY, FOLT3, HEMDF, BMP3M #### [facility] [address] [place] [address] #### MMA2 #### The performing lab is in the report. Creatinine [Mass/Vol] 0.89 mg/dL Normal 0.52-1.25 [facility] Comment on above: Order Comment: Sligh t Hemolysis. Performed By: #### H OMCY, FOLT3, HEMDF, BMP3M #### [facility] [address] [place] [address] #### MMA2 #### The performing lab is in the report. eGFR OTHER > 90.0 Normal >60 [facility] Comment on above: Order Comment: Sligh [...] #### H OMCY, FOLT3, HEMDF, BMP3M #### [facility] [address] [place] [address] #### MMA2 #### The performing lab is in the report. GFR/1.73 sq M.predicted among blacks MDRD (S/P/Bld) [Vol rate/Area] mL/min/{1.73_m2} Normal >60 [facility] Comment on above: Order Comment: Sligh t Hemolysis. Performed By: #### H OMCY, FOLT3, HEMDF, BMP3M #### [facility] [address] [place] [address] #### MMA2 #### The performing lab is in the report. Glucose [Mass/Vol] 110 mg/dL High 70-100 [facility] Comment on above: Order Comment: Sligh t Hemolysis. Performed By: #### H OMCY, FOLT3, HEMDF, BMP3M #### [facility] [address] [place] [address] #### MMA2 #### The performing lab is in the report. Urea nitrogen [Mass/Vol] 17 mg/dL Normal 7-17 [facility] Comment on above: Order Comment: Sligh t Hemolysis. Performed By: #### H OMCY, FOLT3, HEMDF, BMP3M #### [facility] [address] [place] [address] #### MMA2 #### The performing lab is in the report. Chloride [Moles/Vol] 100 mmol/L Normal 98-107 [facility] Comment on above: Order Comment: Sligh t Hemolysis. Performed By: #### H OMCY, FOLT3, HEMDF, BMP3M #### [facility] [address] [place] [address] #### MMA2 #### The performing lab is in the report. Potassium [Moles/Vol] 4.2 mmol/L Normal 3.5-5.1 [facility] Comment on above: Order Comment: Sligh t Hemolysis. Performed By: #### H OMCY, FOLT3, HEMDF, BMP3M #### [facility] [address] [place] [address] #### MMA2 #### The performing lab is in the report. Sodium [Moles/Vol] 137 mmol/L Normal 135-145 [facility] Comment on above: Order Comment: Sligh t Hemolysis. Performed By: #### H OMCY, FOLT3, HEMDF, BMP3M #### [facility] [address] [place] [address] #### MMA2 #### The performing lab is in the report. Basic Metabolic Panel w/ Ref cherie to MG 07-04-2021 Anion gap [Moles/Vol] 4 mmol/L 3 - 13 mmol/L [facility] Calcium [Mass/Vol] 9.1 mg/dL 8.4 - 10. 4 mg/dL [facility] Chloride [Moles/Vol] 100 mmol/L 98 - 10 7 mmol/L [facility] CO2 [Moles/Vol] 32 mmol/L High 22 - 30 mmol/L [facility] Creatinine [Mass/Vol] 0.89 mg/dL 0.52 - 1.25 mg/dL [facility] EGFR IF NonAfrican [place]otswanan >90.0 >60 mL/min [facility] Comment on above: KDIGO guidelines pro vide [...] - 17 mg/dL [facility] Test Performed by [facility], [address] [place] [id number] Slight Hemolysis. [facility] LAB [facility] CBC auto differentialon - Absolute Baso # [...] 12.5 10*3/uL High 3.6 - 10.7 10*3/uL [facility] Test Performed by [facility], [address] LAB [facility] Hemogram w/ Autodiffon 07-04 Abs Baso Cnt 0.1 10*3/uL Normal 0.0-0.2 [facility] Comment on above: Performed By: #### H OMCY, FOLT3, HEMDF, BMP3M #### [facility] [address] [place] [address] #### MMA2 #### The performing lab is in the report. Abs Neutrophile Cnt 9.0 10*3/uL High 1.8-7.0 [facility] Comment on above: Performed By: #### H OMCY, FOLT3, HEMDF, BMP3M #### [facility] [address] [place] [address] #### MMA2 #### The performing lab is in the report. Basophils/100 WBC (Bld) 0.4 % Normal 0.0-2.0 [facility] Comment on above: Performed By: #### H OMCY, FOLT3, HEMDF, BMP3M #### [facility] [address] [place] [address] #### MMA2 #### The performing lab is in the report. Eosinophils (Bld) [#/Vol] 0.5 10*3/uL Normal 0.0-0.5 [facility] Comment on above: Performed By: #### H OMCY, FOLT3, HEMDF, BMP3M #### [facility] [address] [place] [address] #### MMA2 #### The performing lab is in the report. Eosinophils/100 WBC (Bld) 4.2 % Normal 1.0-6.0 [facility] Comment on above: Performed By: #### H OMCY, FOLT3, HEMDF, BMP3M #### [facility] [address] [place] [address] #### MMA2 #### The performing lab is in the report. Erythrocyte distribution width (RBC) [Ratio] 14.2 % Normal 11.5-14.5 [facility] Comment on above: Performed By: #### H OMCY, FOLT3, HEMDF, BMP3M #### [facility] [address] [place] [address] #### MMA2 #### The performing lab is in the report. Granulocytes/100 WBC (Bld) 72.4 % Normal 40.0-80.0 [facility] Comment on above: Performed By: #### H OMCY, FOLT3, HEMDF, BMP3M #### [facility] [address] [place] [address] #### MMA2 #### The performing lab is in the report. Hematocrit (Bld) [Volume fraction] 38.6 % Low 40.0-52.0 [facility] Comment on above: Performed By: #### H OMCY, FOLT3, HEMDF, BMP3M #### [facility] [address] [place] [address] #### MMA2 #### The performing lab is in the report. Hemoglobin (Bld) [Mass/Vol] 12.5 g/dL Low 13.0-18.0 [facility] Comment on above: Performed By: #### H OMCY, FOLT3, HEMDF, BMP3M #### [facility] [address] [place] [address] #### MMA2 #### The performing lab is in the report. Lymphocytes (Bld) [#/Vol] 1.4 10*3/uL Normal 1.0-4.3 [facility] Comment on above: Performed By: #### H OMCY, FOLT3, HEMDF, BMP3M #### [facility] [address] [place] [address] #### MMA2 #### The performing lab is in the report. Lymphocytes/100 WBC (Bld) 10.8 % Low 20.0-40.0 [facility] Comment on above: Performed By: #### H OMCY, FOLT3, HEMDF, BMP3M #### [facility] [address] [place] [address] #### MMA2 #### The performing lab is in the report. MCH (RBC) [Entitic mass] 29.0 pg Normal 26.0-34.0 [facility] Comment on above: Performed By: #### H OMCY, FOLT3, HEMDF, BMP3M #### [facility] [address] [place] [address] #### MMA2 #### The performing lab is in the report. MCHC 32.5 % Normal 32.0-36.0 [facility] Comment on above: Performed By: #### H OMCY, FOLT3, HEMDF, BMP3M #### [facility] [address] [place] [address] #### MMA2 #### The performing lab is in the report. MCV (RBC) [Entitic vol] 89.4 fL Normal 80.0-98.0 [facility] Comment on above: Performed By: #### H OMCY, FOLT3, HEMDF, BMP3M #### [facility] [address] [place] [address] #### MMA2 #### The performing lab is in the report. Monocytes (Bld) [#/Vol] 1.5 10*3/uL High 0.0-0.8 [facility] Comment on above: Performed By: #### H OMCY, FOLT3, HEMDF, BMP3M #### [facility] [address] [place] [address] #### MMA2 #### The performing lab is in the report. Monocytes/100 WBC (Bld) 12.2 % High 2.0-10.0 [facility] Comment on above: Performed By: #### H OMCY, FOLT3, HEMDF, BMP3M #### [facility] [address] [place] [address] #### MMA2 #### The performing lab is in the report. Platelet mean volume (Bld) [Entitic vol] 7.6 fL Normal 7.4-10.4 [facility] Comment on above: Performed By: #### H OMCY, FOLT3, HEMDF, BMP3M #### [facility] [address] [place] [address] #### MMA2 #### The performing lab is in the report. Platelets (Bld) [#/Vol] 300 10*3/uL Normal 140-440 [facility] Comment on above: Performed By: #### H OMCY, FOLT3, HEMDF, BMP3M #### [facility] [address] [place] [address] #### MMA2 #### The performing lab is in the report. RBC (Bld) [#/Vol] 4.32 10*6/uL Low 4.40-5.90 [facility] Comment on above: Performed By: #### H OMCY, FOLT3, HEMDF, BMP3M #### [facility] [address] [place] [address] #### MMA2 #### The performing lab is in the report. WBC (Bld) [#/Vol] 12.5 10*3/uL High 3.6-10.7 [facility] Comment on above: Performed By: #### H OMCY, FOLT3, HEMDF, BMP3M #### [facility] [address] [place] [address] #### MMA2 #### The performing lab is in the report. Basic Metabolic Panelon - Anion gap [Moles/Vol] 5 mmol/L Normal 3-13 [facility] Comment on above: Performed By: #### H OMCY, FOLT3, HEMDF, BMP3M #### [facility] [address] [place] [address] #### MMA2 #### The performing lab is in the report. Calcium [Mass/Vol] 8.7 mg/dL Normal 8.4-10.4 [facility] Comment on above: Performed By: #### H OMCY, FOLT3, HEMDF, BMP3M #### [facility] [address] [place] [address] #### MMA2 #### The performing lab is in the report. CO2 [Moles/Vol] 32 mmol/L High 22-30 [facility] Comment on above: Performed By: #### H OMCY, FOLT3, HEMDF, BMP3M #### [facility] [address] [place] [address] #### MMA2 #### The performing lab is in the report. Glucose [Mass/Vol] 105 mg/dL High 70-100 [facility] Comment on above: Performed By: #### H OMCY, FOLT3, HEMDF, BMP3M #### [facility] [address] [place] [address] #### MMA2 #### The performing lab is in the report. Urea nitrogen [Mass/Vol] 21 mg/dL High 7-17 [facility] Comment on above: Performed By: #### H OMCY, FOLT3, HEMDF, BMP3M #### [facility] [address] [place] [address] #### MMA2 #### The performing lab is in the report. Creatinine [Mass/Vol] 0.95 mg/dL Normal 0.52-1.25 [facility] Comment on above: Performed By: #### H OMCY, FOLT3, HEMDF, BMP3M #### [facility] [address] [place] [address] #### MMA2 #### The performing lab is in the report. eGFR OTHER > 90.0 Normal >60 [facility] Comment on above: Result Comment: KDIG O [...] #### H OMCY, FOLT3, HEMDF, BMP3M #### [facility] [address] [place] [address] #### MMA2 #### The performing lab is in the report. GFR/1.73 sq M.predicted among blacks MDRD (S/P/Bld) [Vol rate/Area] mL/min/{1.73_m2} Normal >60 [facility] Comment on above: Performed By: #### H OMCY, FOLT3, HEMDF, BMP3M #### [facility] [address] [place] [address] #### MMA2 #### The performing lab is in the report. Potassium [Moles/Vol] 3.6 mmol/L Normal 3.5-5.1 [facility] Comment on above: Performed By: #### H OMCY, FOLT3, HEMDF, BMP3M #### [facility] [address] [place] [address] #### MMA2 #### The performing lab is in the report. Sodium [Moles/Vol] 138 mmol/L Normal 135-145 [facility] Comment on above: Performed By: #### H OMCY, FOLT3, HEMDF, BMP3M #### [facility] [address] [place] [address] #### MMA2 #### The performing lab is in the report. Chloride [Moles/Vol] 101 mmol/L Normal 98-107 [facility] Comment on above: Performed By: #### H OMCY, FOLT3, HEMDF, BMP3M #### [facility] [address] [place] [address] #### MMA2 #### The performing lab is [...] - 1.25 mg/dL [facility] EGFR IF NonAfrican Botswanan >90.0 >60 mL/min [facility] Comment on above: KDIGO guidelines pro vide [...] - 17 mg/dL [facility] Test Performed by [facility], [address] [place] [id number] [facility] auto differentialon 06-13 Absolute Baso [...] 11.0 10*3/uL High 3.6 - 10.7 10*3/uL [facility] Test Performed by [facility], [address] LAB [facility] Folateon 07-03-2021 Folate 3.8 ng/mL Normal [facility] Comment on above: Result Comment: >2.8 Performed By: #### H OMCY, FOLT3, HEMDF, BMP3M #### [facility] [address] [place] [address] #### MMA2 #### The performing lab is in the report. Folate 3.8 ng/mL [facility] Comment on above: >2.8 Test Performed by [facility], [address] LAB [facility] Hemogram w/ Autodiffon 07-03 Abs Baso Cnt 0.0 10*3/uL Normal 0.0-0.2 [facility] Comment on above: Performed By: #### H OMCY, FOLT3, HEMDF, BMP3M #### [facility] [address] [place] [place] [address] #### MMA2 #### The performing lab is in the report. Abs Neutrophile Cnt 8.2 10*3/uL High 1.8-7.0 [facility] Comment on above: Performed By: #### H OMCY, FOLT3, HEMDF, BMP3M #### [facility] [address] [place] [address] #### MMA2 #### The performing lab is in the report. Basophils/100 WBC (Bld) 0.4 % Normal 0.0-2.0 [facility] Comment on above: Performed By: #### H OMCY, FOLT3, HEMDF, BMP3M #### [place] [address] [place] [address] #### MMA2 #### The performing lab is in the report. Eosinophils (Bld) [#/Vol] 0.4 10*3/uL Normal 0.0-0.5 [facility] Comment on above: Performed By: #### H OMCY, FOLT3, HEMDF, BMP3M #### [place] [address] [place] [address] #### MMA2 #### The performing lab is in the report. Eosinophils/100 WBC (Bld) 3.4 % Normal 1.0-6.0 [facility] Comment on above: Performed By: #### H OMCY, FOLT3, HEMDF, BMP3M #### [address] [place] [address] #### MMA2 #### The performing lab is in the report. Erythrocyte distribution width (RBC) [Ratio] 14.0 % Normal 11.5-14.5 [facility] Comment on above: Performed By: #### H OMCY, FOLT3, HEMDF, BMP3M #### [facility] [address] [facility] [place] [place] [address] #### MMA2 #### The performing lab is in the report. Granulocytes/100 WBC (Bld) 74.1 % Normal 40.0-80.0 [facility] Comment on above: Performed By: #### H OMCY, FOLT3, HEMDF, BMP3M #### [facility] [address] [place] [address] #### MMA2 #### The performing lab is in the report. Hematocrit (Bld) [Volume fraction] 35.7 % Low 40.0-52.0 [facility] Comment on above: Performed By: #### H OMCY, FOLT3, HEMDF, BMP3M #### [facility] [address] [place] [address] #### MMA2 #### The performing lab is in the report. Hemoglobin (Bld) [Mass/Vol] 11.6 g/dL Low 13.0-18.0 [facility] Comment on above: Performed By: #### H OMCY, FOLT3, HEMDF, BMP3M #### [facility] [address] [place] [address] #### MMA2 #### The performing lab is in the report. Lymphocytes (Bld) [#/Vol] 1.5 10*3/uL Normal 1.0-4.3 [facility] Comment on above: Performed By: #### H OMCY, FOLT3, HEMDF, BMP3M #### [facility] [address] [place] [address] #### MMA2 #### The performing lab is in the report. Lymphocytes/100 WBC (Bld) 13.4 % Low 20.0-40.0 [facility] Comment on above: Performed By: #### H OMCY, FOLT3, HEMDF, BMP3M #### [facility] [address] [place] [address] #### MMA2 #### The performing lab is in the report. MCH (RBC) [Entitic mass] 29.1 pg Normal 26.0-34.0 [facility] Comment on above: Performed By: #### H OMCY, FOLT3, HEMDF, BMP3M #### [facility] [address] [place] [address] #### MMA2 #### The performing lab is in the report. MCHC 32.6 % Normal 32.0-36.0 [facility] Comment on above: Performed By: #### H OMCY, FOLT3, HEMDF, BMP3M #### [facility] [address] [place] [address] #### MMA2 #### The performing lab is in the report. MCV (RBC) [Entitic vol] 89.3 fL Normal 80.0-98.0 [facility] Comment on above: Performed By: #### H OMCY, FOLT3, HEMDF, BMP3M #### [facility] [address] [place] [address] #### MMA2 #### The performing lab is in the report. Monocytes (Bld) [#/Vol] 1.0 10*3/uL High 0.0-0.8 [facility] Comment on above: Performed By: #### H OMCY, FOLT3, HEMDF, BMP3M #### [facility] [address] [place] [address] #### MMA2 #### The performing lab is in the report. Monocytes/100 WBC (Bld) 8.7 % Normal 2.0-10.0 [facility] Comment on above: Performed By: #### H OMCY, FOLT3, HEMDF, BMP3M #### [facility] [address] [place] [address] #### MMA2 #### The performing lab is in the report. Platelet mean volume (Bld) [Entitic vol] 7.6 fL Normal 7.4-10.4 [facility] Comment on above: Performed By: #### H OMCY, FOLT3, HEMDF, BMP3M #### [facility] [address] [place] [address] #### MMA2 #### The performing lab is in the report. Platelets (Bld) [#/Vol] 315 10*3/uL Normal 140-440 [facility] Comment on above: Performed By: #### H OMCY, FOLT3, HEMDF, BMP3M #### [facility] [address] [place] [address] #### MMA2 #### The performing lab is in the report. RBC (Bld) [#/Vol] 4.00 10*6/uL Low 4.40-5.90 [facility] Comment on above: Performed By: #### H OMCY, FOLT3, HEMDF, BMP3M #### [facility] [address] [place] [address] #### MMA2 #### The performing lab is in the report. WBC (Bld) [#/Vol] 11.0 10*3/uL High 3.6-10.7 [facility] Comment on above: Performed By: #### H OMCY, FOLT3, HEMDF, BMP3M #### [facility] [address] [place] [address] #### MMA2 #### The performing lab is in the report. Homocysteineon 07-03-2021 Homocysteine 11.0 umol/L Normal 6.6-14.8 [facility] Comment on above: Performed By: #### H OMCY, FOLT3, HEMDF, BMP3M #### [facility] [address] [facility] [place] [place] [address] #### MMA2 #### The performing lab is in the report. Homocysteine 11 umol/L 6.6 - 14.8 umol/L [facility] Test Performed by [facility], [facility] [address] LAB [facility] Basic Metabolic Panelon - Anion gap [Moles/Vol] 4 mmol/L Normal 3-13 [facility] Comment on above: Performed By: #### H OMCY, FOLT3, HEMDF, BMP3M #### [facility] [address] [place] [address] #### MMA2 #### The performing lab is in the report. Calcium [Mass/Vol] 9.1 mg/dL Normal 8.4-10.4 [facility] Comment on above: Performed By: #### H OMCY, FOLT3, HEMDF, BMP3M #### [facility] [address] [facility] [place] [place] [address] #### MMA2 #### The performing lab is in the report. CO2 [Moles/Vol] 30 mmol/L Normal 22-30 [facility] Comment on above: Performed By: #### H OMCY, FOLT3, HEMDF, BMP3M #### [facility] [address] [place] [place] [address] #### MMA2 #### The performing lab is in the report. Glucose [Mass/Vol] 87 mg/dL Normal 70-100 [facility] Comment on above: Performed By: #### H OMCY, FOLT3, HEMDF, BMP3M #### [facility] [address] [place] [address] #### MMA2 #### The performing lab is in the report. Urea nitrogen [Mass/Vol] 24 mg/dL High 7-17 [facility] Comment on above: Performed By: #### H OMCY, FOLT3, HEMDF, BMP3M #### [facility] [address] [place] [address] #### MMA2 #### The performing lab is in the report. Creatinine [Mass/Vol] 0.99 mg/dL Normal 0.52-1.25 [facility] Comment on above: Performed By: #### H OMCY, FOLT3, HEMDF, BMP3M #### [facility] [address] [place] [place] [address] #### MMA2 #### The performing lab is in the report. GFR/1.73 sq M.predicted among blacks MDRD (S/P/Bld) [Vol rate/Area] mL/min/{1.73_m2} Normal >60 [facility] Comment on above: Performed By: #### H OMCY, FOLT3, HEMDF, BMP3M #### [facility] [address] [place] [address] #### MMA2 #### The performing lab is in the report. GFR/1.73 sq M.predicted among non-blacks MDRD (S/P/Bld) [Vol rate/Area] 88.0 mL/min/{1.73_m2} Normal >60 [facility] Comment on above: Result Comment: [...] #### H OMCY, FOLT3, HEMDF, BMP3M #### [facility] [address] [place] [address] #### MMA2 #### The performing lab is in the report. Chloride [Moles/Vol] 99 mmol/L Normal 98-107 [facility] Comment on above: Performed By: #### H OMCY, FOLT3, HEMDF, BMP3M #### [facility] [address] [place] [address] #### MMA2 #### The performing lab is in the report. Potassium [Moles/Vol] 4.2 mmol/L Normal 3.5-5.1 [facility] Comment on above: Performed By: #### H OMCY, FOLT3, HEMDF, BMP3M #### [facility] [address] [place] [address] #### MMA2 #### The performing lab is in the report. Sodium [Moles/Vol] 133 mmol/L Low 135-145 [facility] Comment on above: Performed By: #### H OMCY, FOLT3, HEMDF, BMP3M #### [facility] [address] [place] [address] #### MMA2 #### The performing lab is [...] - 1.25 mg/dL [facility] EGFR IF NonAfrican Botswanan 88.0 mL/min >60 [facility] Comment on above: [...] #### H OMCY, FOLT3, HEMDF, BMP3M #### [facility] [address] [place] [address] #### MMA2 #### The performing lab is [...] - 10.7 10*3/uL [facility] Test Performed by [facility], [address] [place], [place] [id number] [address] LAB [facility] Fluoroscopy modified barium swallow with videoon 07-02-2021 Patient Name: LUIS STEELE Fluoroscopy ACCESSION EXAM DATE/TIME PROCEDURE ORDERING PROVIDER [id number] 07/02/2021 13:20 EDT RF Swallowing Function 5813 -KAPIL GARCÍA w/ Video CPT code 55707 Reason For Exam (RF Swallowing Function w/ [...] Fluoroscopy ACCESSION EXAM DATE/TIME PROCEDURE ORDERING PROVIDER [id number] 07/02/2021 13:20 EDT RF Swallowing Function 58KAPIL PALACIOS w/ Video CPT code 40377 Reason For Exam (RF Swallowing Function w/ [...] VLADIMIR Transcribed Date and Time: 07/02/2021 2:46 [facility] Work Phone: [facility] Work Phone: Radiology Study observation (narrative) [facility] Work Phone: Group A Strep Screen By PCRo n 07-02-2021 Group A Strep Screen By PCR NOT Detected Expected Result: Not Detected Methodology - Real Time PCR (Cepheid) [facility] Test Performed by [facility], [address] [place], [place] [id number] [address] LAB [facility] Group A Strep Screen by PCRo n 07-02-2021 Group A Strep Screen by PCR Group A Strep Screen by PCR --> Status: F NOT Detected Expected Result: Not Detected Methodology - Real Time PCR (Cepheid) Expected Result: Not Detected Methodology - Real Time PCR (Cepheid) Normal [facility] Comment on above: Performed By: #### H EMDF, BMP3M #### [facility] [address] [place] [address] Hemogram w/ Autodiffon 07-02 Abs Baso Cnt 0.1 10*3/uL Normal 0.0-0.2 [facility] Comment on above: Performed By: #### H OMCY, FOLT3, HEMDF, BMP3M #### [facility] [address] [place] [address] #### MMA2 #### The performing lab is in the report. Abs Neutrophile Cnt 7.0 10*3/uL Normal 1.8-7.0 [facility] Comment on above: Performed By: #### H OMCY, FOLT3, HEMDF, BMP3M #### [facility] [address] [place] [address] #### MMA2 #### The performing lab is in the report. Basophils/100 WBC (Bld) 0.7 % Normal 0.0-2.0 [facility] Comment on above: Performed By: #### H OMCY, FOLT3, HEMDF, BMP3M #### [facility] [address] [place] [address] #### MMA2 #### The performing lab is in the report. Eosinophils (Bld) [#/Vol] 0.3 10*3/uL Normal 0.0-0.5 [facility] Comment on above: Performed By: #### H OMCY, FOLT3, HEMDF, BMP3M #### [facility] [address] [place] [address] #### MMA2 #### The performing lab is in the report. Eosinophils/100 WBC (Bld) 2.8 % Normal 1.0-6.0 [facility] Comment on above: Performed By: #### H OMCY, FOLT3, HEMDF, BMP3M #### [facility] [address] [place] [address] #### MMA2 #### The performing lab is in the report. Erythrocyte distribution width (RBC) [Ratio] 14.1 % Normal 11.5-14.5 [facility] Comment on above: Performed By: #### H OMCY, FOLT3, HEMDF, BMP3M #### [place] [address] [place] [address] #### MMA2 #### The performing lab is in the report. Granulocytes/100 WBC (Bld) 64.7 % Normal 40.0-80.0 [facility] Comment on above: Performed By: #### H OMCY, FOLT3, HEMDF, BMP3M #### [place] [address] [place] [address] #### MMA2 #### The performing lab is in the report. Hematocrit (Bld) [Volume fraction] 39.5 % Low 40.0-52.0 [facility] Comment on above: Performed By: #### H OMCY, FOLT3, HEMDF, BMP3M #### [address] [place] [address] #### MMA2 #### The performing lab is in the report. Hemoglobin (Bld) [Mass/Vol] 13.0 g/dL Normal 13.0-18.0 [facility] Comment on above: Performed By: #### H OMCY, FOLT3, HEMDF, BMP3M #### [facility] [address] [place] [address] #### MMA2 #### The performing lab is in the report. Lymphocytes (Bld) [#/Vol] 2.2 10*3/uL Normal 1.0-4.3 [facility] Comment on above: Performed By: #### H OMCY, FOLT3, HEMDF, BMP3M #### [facility] [address] [place] [address] #### MMA2 #### The performing lab is in the report. Lymphocytes/100 WBC (Bld) 20.7 % Normal 20.0-40.0 [facility] Comment on above: Performed By: #### H OMCY, FOLT3, HEMDF, BMP3M #### [facility] [address] [place] [address] #### MMA2 #### The performing lab is in the report. MCH (RBC) [Entitic mass] 29.4 pg Normal 26.0-34.0 [facility] Comment on above: Performed By: #### H OMCY, FOLT3, HEMDF, BMP3M #### [address] [place] [address] #### MMA2 #### The performing lab is in the report. MCHC 32.8 % Normal 32.0-36.0 [facility] Comment on above: Performed By: #### H OMCY, FOLT3, HEMDF, BMP3M #### [facility] [address] [place] [address] #### MMA2 #### The performing lab is in the report. MCV (RBC) [Entitic vol] 89.7 fL Normal 80.0-98.0 [facility] Comment on above: Performed By: #### H OMCY, FOLT3, HEMDF, BMP3M #### [facility] [address] [place] [address] #### MMA2 #### The performing lab is in the report. Monocytes (Bld) [#/Vol] 1.2 10*3/uL High 0.0-0.8 [facility] Comment on above: Performed By: #### H OMCY, FOLT3, HEMDF, BMP3M #### [facility] [address] [place] [address] #### MMA2 #### The performing lab is in the report. Monocytes/100 WBC (Bld) 11.1 % High 2.0-10.0 [facility] Comment on above: Performed By: #### H OMCY, FOLT3, HEMDF, BMP3M #### [facility] [address] [place] [address] #### MMA2 #### The performing lab is in the report. Platelet mean volume (Bld) [Entitic vol] 7.4 fL Normal 7.4-10.4 [facility] Comment on above: Performed By: #### H OMCY, FOLT3, HEMDF, BMP3M #### [facility] [address] [place] [address] #### MMA2 #### The performing lab is in the report. Platelets (Bld) [#/Vol] 330 10*3/uL Normal 140-440 [facility] Comment on above: Performed By: #### H OMCY, FOLT3, HEMDF, BMP3M #### [facility] [address] [place] [address] #### MMA2 #### The performing lab is in the report. RBC (Bld) [#/Vol] 4.40 10*6/uL Normal 4.40-5.90 [facility] Comment on above: Performed By: #### H OMCY, FOLT3, HEMDF, BMP3M #### [facility] [address] [place] [address] #### MMA2 #### The performing lab is in the report. WBC (Bld) [#/Vol] 10.8 10*3/uL High 3.6-10.7 [facility] Comment on above: Performed By: #### H OMCY, FOLT3, HEMDF, BMP3M #### [facility] [address] [place] [address] #### MMA2 #### The performing lab is in the report. No Panel Informationon 07-02 Interpretation and review of laboratory results Abnormal [facility] Test Performed by [facility], [address] [place], [place] [address] [facility] Procalcitoninon 07-02-2021 Procalcitonin 0.05 ng/mL Normal 0.00-0.09 [facility] Comment on above: Performed By: #### H OMCY, FOLT3, HEMDF, BMP3M #### [facility] [address] [place] [address] #### MMA2 #### The performing lab is in the report. Interpretation See Below [facility] Comment on above: PCT <0.50 = Low risk of severe sepsis and/or septic shock. PCT >2.00 = High risk of severe sepsis and/or septic shock. Procalcitonin 0.05 ng/mL 0.00 - 0.09 ng/mL [facility] Test Performed by [address] [address] [facility] Interpretation See Below Normal [facility] Comment on above: Result Comment: PCT <0.50 = Low risk of severe sepsis and/or septic shock. PCT >2.00 = High risk of severe sepsis and/or septic shock. Performed By: #### H OMCY, FOLT3, HEMDF, BMP3M #### [facility] [address] [place] [address] #### MMA2 #### The performing lab is in the report. RF Swallowing Function w/ Vi martha 07-02-2021 RF Swallowing Function w/ Video Patient Name: LUIS STEELE Fluoroscopy ACCESSION EXAM DATE/TIME PROCEDURE ORDERING PROVIDER [id number] 07/02/2021 13:20 EDT RF Swallowing Function 58KAPIL PALACIOS w/ Video CPT code 85990 Reason For Exam (RF Swallowing Function w/ [...] Transcribed Date and Time: 07/02/2021 2:46 Normal [facility] MANAGER LEARNING Modified Barium Swallow Studyon 07-02-2021 MANAGER LEARNING Modified Barium Swallow Study Patient Name: LUIS STEELE Fluoroscopy ACCESSION EXAM DATE/TIME PROCEDURE ORDERING PROVIDER [id number] 07/02/2021 13:20 EDT MANAGER LEARNING Modified Barium 5813 KAPIL ALFONSO Swallow Study Reason For Exam (MANAGER LEARNING Modified Barium Swallow Study) Shortness of breath [...] darshana cracker coated with Varibar pudding Varibar Kaser presented via cup. Varibar Thin Liquid presented [...] Transcribed Date and Time: 07/02/2021 2:39 Normal [facility] MANAGER LEARNING video swallowon 07-03-19 Patient Name: LUIS STEELE Fluoroscopy ACCESSION EXAM DATE/TIME PROCEDURE ORDERING PROVIDER [id number] 07/02/2021 13:20 EDT MANAGER LEARNING Modified Barium 5813 -KAPIL GARCÍA Swallow Study Reason For Exam (MANAGER LEARNING Modified Barium Swallow Study) Shortness of breath [...] darshana cracker coated with Varibar pudding Varibar Kaser presented via cup. Varibar Thin Liquid presented [...] Fluoroscopy ACCESSION EXAM DATE/TIME PROCEDURE ORDERING PROVIDER [id number] 07/02/2021 13:20 EDT MANAGER LEARNING Modified Barium 5813 -KAPIL GARCÍA Swallow Study Reason For Exam (MANAGER LEARNING Modified Barium Swallow Study) Shortness of breath [...] darshana cracker coated with Varibar pudding Varibar Kaser presented via cup. Varibar Thin Liquid presented [...] --- Final --- Dictating Physician: TARA KILGORE, CHRISTA/MANAGER LEARNINGFINN Signed Date and Time: 07/02/2021 2:38 pm Signed by: TARA KILGORE, CHRISTA/FINN AVILES Transcribed Date and Time: 07/02/2021 2:39 [facility] Work Phone: [facility] Work Phone: Sed Rateon 07-02-2021 Sed Rate 46 mm/h High 0-10 [facility] Comment on above: Performed By: #### H OMCY, FOLT3, HEMDF, BMP3M #### [facility] [address] [place] [address] #### MMA2 #### The performing lab is in the report. Sedimentation Rateon 022 Interpretation and review of laboratory results Abnormal [facility] Sed Rate 46 mm/h High 0 - 10 mm/h [facility] Test Performed by [facility], [address], [place], [place] [id number] [address] LAB [facility] T[facility] 07-02-2021 TSH Qn 1.574 u[IU]/mL 0.465 - 4.680 u[IU]/mL [facility] Test Performed by [facility], [address] [place], [place] [id number] [address] LAB [facility] Thyroid Stim. Hormoneon 06-13 Thyroid Stim. Hormone 1.574 u[IU]/mL Normal 0.465-4.68 0 [facility] Comment on above: Performed By: #### H OMCY, FOLT3, HEMDF, BMP3M #### [facility] [address] [place] [address] #### MMA2 #### The performing lab is in the report. Vitamin B12on 07-02-2021 Cobalamin (Vitamin B12) [Mass/Vol] 235 pg/mL Low 239-931 [facility] Comment on above: Performed By: #### H OMCY, FOLT3, HEMDF, BMP3M #### [place] [address] [place] [address] #### MMA2 #### The performing lab is in the report. Cobalamin (Vitamin B12) [Mass/Vol] 235 pg/mL Low 239 - 931 pg/mL [facility] Interpretation and review of laboratory results Abnormal [facility] Test Performed by [facility], [facility] [address] [place], [place] [id number] [address] LAB [facility] Basic Metabolic Panelon 06-13 Anion gap [Moles/Vol] 6 mmol/L Normal 3-13 [facility] Comment on above: Performed By: #### H OMCY, FOLT3, HEMDF, BMP3M #### [facility] [address] [place] [address] #### MMA2 #### The performing lab is in the report. Calcium [Mass/Vol] 9.3 mg/dL Normal 8.4-10.4 [facility] Comment on above: Performed By: #### H OMCY, FOLT3, HEMDF, BMP3M #### [place] [address] [place] [address] #### MMA2 #### The performing lab is in the report. CO2 [Moles/Vol] 32 mmol/L High 22-30 [facility] Comment on above: Performed By: #### H OMCY, FOLT3, HEMDF, BMP3M #### [facility] [address] [place] [address] #### MMA2 #### The performing lab is in the report. Glucose [Mass/Vol] 141 mg/dL High 70-100 [facility] Comment on above: Performed By: #### H OMCY, FOLT3, HEMDF, BMP3M #### [facility] [address] [place] [address] #### MMA2 #### The performing lab is in the report. Urea nitrogen [Mass/Vol] 18 mg/dL High 7-17 [facility] Comment on above: Performed By: #### H OMCY, FOLT3, HEMDF, BMP3M #### [facility] [address] [place] [address] #### MMA2 #### The performing lab is in the report. Creatinine [Mass/Vol] 0.99 mg/dL Normal 0.52-1.25 [facility] Comment on above: Performed By: #### H OMCY, FOLT3, HEMDF, BMP3M #### [facility] [address] [place] [address] #### MMA2 #### The performing lab is in the report. GFR/1.73 sq M.predicted among blacks MDRD (S/P/Bld) [Vol rate/Area] mL/min/{1.73_m2} Normal >60 [facility] Comment on above: Performed By: #### H OMCY, FOLT3, HEMDF, BMP3M #### [facility] [address] [place] [address] #### MMA2 #### The performing lab is in the report. GFR/1.73 sq M.predicted among non-blacks MDRD (S/P/Bld) [Vol rate/Area] 88.0 mL/min/{1.73_m2} Normal >60 [facility] Comment on above: Result Comment: [...] #### H OMCY, FOLT3, HEMDF, BMP3M #### [facility] [address] [place] [address] #### MMA2 #### The performing lab is in the report. Potassium [Moles/Vol] 5.6 mmol/L High 3.5-5.1 [facility] Comment on above: Result Comment: Slig htly hemolysed, interpret with caution. Performed By: #### H OMCY, FOLT3, HEMDF, BMP3M #### [facility] [address] [place] [address] #### MMA2 #### The performing lab is in the report. Sodium [Moles/Vol] 136 mmol/L Normal 135-145 [facility] Comment on above: Performed By: #### H OMCY, FOLT3, HEMDF, BMP3M #### [facility] [address] [place] [address] #### MMA2 #### The performing lab is in the report. Chloride [Moles/Vol] 98 mmol/L Normal 98-107 [facility] Comment on above: Performed By: #### H OMCY, FOLT3, HEMDF, BMP3M #### [facility] [address] [place] [address] #### MMA2 #### The performing lab is in the report. Anion gap [Moles/Vol] 6 mmol/L 3 - 13 mmol/L [facility] Calcium [Mass/Vol] 9.3 mg/dL 8.4 - 10. 4 mg/dL [facility] Chloride [Moles/Vol] 98 mmol/L 98 - 10 7 mmol/L [facility] CO2 [Moles/Vol] 32 mmol/L High 22 - 30 mmol/L [facility] Creatinine [Mass/Vol] 0.99 mg/dL 0.52 - 1.25 mg/dL [facility] EGFR IF NonAfrican [place]otswanan 88.0 mL/min >60 [facility] Comment on above: [...] - 17 mg/dL [facility] Test Performed by [facility], [facility] [address] , [address] LAB [facility] Brain Natriuretic Peptideon 07-01-2021 Natriuretic peptide B (Bld) [Mass/Vol] 22 pg/mL 0 - 125 pg/mL [facility] Comment on above: Slightly hemolysed, interpret with caution. CR Chest Portableon 07-02-19 CR Chest Portable Patient Name: LUIS STEELE Diagnostic Radiology ACCESSION EXAM DATE/TIME PROCEDURE ORDERING PROVIDER [id number] 07/01/2021 06:42 EDT CR Chest Portable 5803 -HANNAH, RADHAMES CPT code 67872 Reason For Exam (CR Chest Portable) SOB [...] Transcribed Date and Time: 07/01/2021 7:17 Normal [facility] CT SOFT TISSUE NECK W CONTRA STon 07-01-2021 Patient Name: LUIS STEELE Computed Tomography ACCESSION EXAM DATE/TIME PROCEDURE ORDERING PROVIDER [id number] 07/01/2021 06:[address] Soft Tissue Neck w/ 5803 -HANNAH, RADHAMES Contrast CPT code 26382 Q9967 Reason For Exam (CT Soft Tissue [...] OSAMA Transcribed Date and Time: 07/01/2021 7:35 [facility] Ajith Freeman MD - 07/01/2021 Patient Name: LUIS STEELE Computed Tomography ACCESSION EXAM DATE/TIME PROCEDURE ORDERING PROVIDER [id number] 07/01/2021 06:[address] Soft Tissue Neck w/ 5803 -HANNAH, RADHAMES Contrast CPT code 01440 Q9967 Reason For Exam (CT Soft Tissue [...] Tomography ACCESSION EXAM DATE/TIME PROCEDURE ORDERING PROVIDER [id number] 07/01/2021 06:[address] Soft Tissue Neck w/ 5803 -HANNAH, RADHAMES Contrast CPT code 42883 Q9967 Reason For Exam (CT Soft Tissue [...] Transcribed Date and Time: 07/01/2021 7:35 Normal [facility] Complete Urinalysison 2021 Appearance (U) Clear Normal [facility] Comment on above: Result Comment: . Performed By: #### H OMCY, FOLT3, HEMDF, BMP3M #### [facility] [address] [place] [address] #### MMA2 #### The performing lab is in the report. Bilirubin,Urine Negative Normal Negative [facility] Comment on above: Result Comment: . Performed By: #### H OMCY, FOLT3, HEMDF, BMP3M #### [facility] [address] [place] [address] #### MMA2 #### The performing lab is in the report. Color (U) COLORLESS Normal Lt. Yellow [facility] Comment on above: Result Comment: . Performed By: #### H OMCY, FOLT3, HEMDF, BMP3M #### [facility] [address] [place] [address] #### MMA2 #### The performing lab is in the report. Glucose Ql (U) Normal Normal Normal (<70) [facility] Comment on above: Result Comment: . Performed By: #### H OMCY, FOLT3, HEMDF, BMP3M #### [facility] [address] [place] [address] #### MMA2 #### The performing lab is in the report. Ketone,Urine Negative Normal Negative [facility] Comment on above: Result Comment: . Performed By: #### H OMCY, FOLT3, HEMDF, BMP3M #### [facility] [address] [place] [address] #### MMA2 #### The performing lab is in the report. Leukocytes,Urine Negative Normal Negative [facility] Comment on above: Result Comment: . Performed By: #### H OMCY, FOLT3, HEMDF, BMP3M #### [facility] [address] [place] [address] #### MMA2 #### The performing lab is in the report. Nitrites,Urine Negative Normal Negative [facility] Comment on above: Result Comment: . Performed By: #### H OMCY, FOLT3, HEMDF, BMP3M #### [facility] [address] [place] [address] #### MMA2 #### The performing lab is in the report. Occult Blood,Urine Negative Normal Negative [facility] Comment on above: Result Comment: . Performed By: #### H OMCY, FOLT3, HEMDF, BMP3M #### [place] [address] [place] [address] #### MMA2 #### The performing lab is in the report. pH,Urine 6.5 Normal 5.0-8.0 [facility] Comment on above: Result Comment: . Performed By: #### H OMCY, FOLT3, HEMDF, BMP3M #### [address] [place] [address] #### MMA2 #### The performing lab is in the report. Specific Howe,Urine 1.011 Normal 1.005 - 1.030 [facility] Comment on above: Result Comment: . Performed By: #### H OMCY, FOLT3, HEMDF, BMP3M #### [place] [address] [place] [address] #### MMA2 #### The performing lab is in the report. Total Protein,Urine Negative Normal Negative [facility] Comment on above: Result Comment: . Performed By: #### H OMCY, FOLT3, HEMDF, BMP3M #### [place] [address] [place] [address] #### MMA2 #### The performing lab is in the report. Urobilinogen,Urine Normal Normal Normal (0-1) [facility] Comment on above: Result Comment: . Performed By: #### H OMCY, FOLT3, HEMDF, BMP3M #### [place] [address] [place] [address] #### MMA2 #### The performing lab is in the report. 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 : 1970 Requested By: RADHAMES YOUNG Order Number: [id number] Reading MD: Radhames Young Measurements Intervals [place] Rate: 101 P: 76 GA: 128 QRS: 81 QRSD: 80 T: 266 QT: 380 QTc: 493 Interpretive Statements SINUS TACHYCARDIA RIGHT ATRIAL ABNORMALITY NONSPECIFIC T ABNORMALITIES, DIFFUSE LEADS BORDERLINE PROLONGED QT INTERVAL BASELINE WANDER IN LEAD(S) V3 Compared to ECG 04/04/2021 20:17:35 T-wave abnormality now present ST (T wave) deviation no longer present Electronically Signed On 07-01-2021 6:48:13 EDT by Radhames Young [facility] Radhames Young M D - 07/01/2021 [facility] Test Date: 2021-07-01 Pat Name: LUIS CALL Department: 2BED Room: 07 Gender: M Risk 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: 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 : 1970 Requested By: RADHAMES YOUNG Order Number: [id number] Reading MD: Radhames Young Measurements Intervals [place] Rate: 101 P: 76 GA: 128 QRS: 81 QRSD: 80 T: 266 QT: 380 QTc: 493 Interpretive Statements SINUS TACHYCARDIA RIGHT ATRIAL ABNORMALITY NONSPECIFIC T ABNORMALITIES, DIFFUSE LEADS BORDERLINE PROLONGED QT INTERVAL BASELINE WANDER IN LEAD(S) V3 Compared to ECG 04/04/2021 20:17:35 T-wave abnormality now present ST (T wave) deviation no longer present Electronically Signed On 07-01-2021 6:48:13 EDT by Radhames Young [facility] Work Phone: [facility] Work Phone: Hemogramon 07-01-2021 Erythrocyte distribution width (RBC) [Ratio] 14.6 % High 11.5-14.5 [facility] Comment on above: Performed By: #### H EMD, BMP3M #### [facility] [address] [place] [address] Hematocrit (Bld) [Volume fraction] 42.9 % Normal 40.0-52.0 [facility] Comment on above: Performed By: #### H EMDF, BMP3M #### [facility] [address] [place] [address] Hemoglobin (Bld) [Mass/Vol] 14.3 g/dL Normal 13.0-18.0 [facility] Comment on above: Performed By: #### H EMDF, BMP3M #### [facility] [address] [place] [address] MCH (RBC) [Entitic mass] 29.6 pg Normal 26.0-34.0 [facility] Comment on above: Performed By: #### H EMDF, BMP3M #### [facility] [address] [place] [address] MCHC 33.3 % Normal 32.0-36.0 [facility] Comment on above: Performed By: #### H EMDF, BMP3M #### [facility] [address] [place] [address] MCV (RBC) [Entitic vol] 88.8 fL Normal 80.0-98.0 [facility] Comment on above: Performed By: #### H EMDF, BMP3M #### [facility] [address] [place] [address] Platelet mean volume (Bld) [Entitic vol] 7.4 fL Normal 7.4-10.4 [facility] Comment on above: Performed By: #### H EMDF, BMP3M #### [facility] [address] [place] [address] Platelets (Bld) [#/Vol] 460 10*3/uL High 140-440 [facility] Comment on above: Performed By: #### H EMDF, BMP3M #### [facility] [address] [place] [address] RBC (Bld) [#/Vol] 4.83 10*6/uL Normal 4.40-5.90 [facility] Comment on above: Performed By: #### H EMDF, BMP3M #### [facility] [address] [place] [address] WBC (Bld) [#/Vol] 22.1 10*3/uL High 3.6-10.7 [facility] Comment on above: Performed By: #### H BURKE BMP3M #### [facility] [address] [place] [place] [address] Hemogram (CBC)on 07-01-2021 Hematocrit (Bld) [Volume fraction] 42.9 % 40.0 - 52.0 % [facility] Hemoglobin.gastrointe stinal spec 1 Ql (Stl) 14.3 g/dL 13.0 - 18.0 g/dL [facility] Interpretation and review of laboratory results [...] - 10.7 10*3/uL [facility] Test Performed by [facility], [address] , [address] LAB [facility] Lactate, Sepsison 07-01-2021 Lactate [Moles/Vol] 1.1 mmol/L 0.7 - 2. 0 mmol/L [facility] Test Performed by [facility], [address] , [address] LAB [facility] Lactic Acid, Sepsison 2021 Lactate [Moles/Vol] 1.1 mmol/L Normal 0.7-2.0 [facility] Comment on above: Performed By: #### L ACTS #### [facility] [address] [place] [address] NT pro BNPon 07-01-2021 Natriuretic peptide B (Bld) [Mass/Vol] 22 pg/mL Normal 0-125 [facility] Comment on above: Result Comment: Slig htly hemolysed, interpret with caution. Performed By: #### H OMCY, FOLT3, HEMDF, BMP3M #### [facility] [address] [place] [address] #### MMA2 #### The performing lab is in the report. No Panel Informationon 07-01 Test Performed by [facility], [address] , [address] LAB [facility] Troponin Ion 07-01-2021 Troponin I.cardiac [Mass/Vol] 0.017 ng/mL Normal 0.000-0.034 [facility] Comment on above: Result Comment: Slig htly hemolysed, interpret with caution. . Performed By: #### H OMCY, FOLT3, HEMDF, BMP3M #### [facility] [address] [place] [address] #### MMA2 #### The performing lab is [...] [pH] [facility] Comment on above: . Specific Howe, Urine 1.011 [facility] Comment on above: . Total Protein, Urine Negative Negativ e mg/dL [facility] Comment on above: . Urobilinogen, Urine Normal Normal ( 0-1) mg/dL [facility] Comment on above: . Test Performed by [facility], [address] , [address] LAB [facility] XR CHEST PORTABLEon 07-02-19 Patient Name: LUIS STEELE Diagnostic Radiology ACCESSION EXAM DATE/TIME PROCEDURE ORDERING PROVIDER [id number] 07/01/2021 06:42 EDT CR Chest Portable 5803 -HANNAH, RADHAMES CPT code 72597 Reason For Exam (CR Chest Portable) SOB [...] OSAMA Transcribed Date and Time: 07/01/2021 7:17 [facility] Ajith Freeman MD - 07/01/2021 Patient Name: LUIS STEELE Diagnostic Radiology ACCESSION EXAM DATE/TIME PROCEDURE ORDERING PROVIDER [id number] 07/01/2021 06:42 EDT CR Chest Portable 5803 -HANNAH, RADHAMES CPT code 56180 Reason For Exam (CR Chest Portable) SOB [...] Basophil, Absolute 0.10 10 3/mcL Normal 0.00-0.19 [facility] ([place]) Comment on above: Performed By: #### C BC, ADIFF, ANEU, BMP, GFR, PBNP, TROPHS #### [address] [address] Basophils/100 WBC (Bld) 0.6 % Normal 0.0-2.5 [facility] ([place]) Comment on above: Performed By: #### C BC, ADIFF, ANEU, BMP, GFR, PBNP, TROPHS #### [address] [address] Eosinophil, Absolute 0.30 10 3/mcL Normal 0.00-0.40 [facility] ([place]) Comment on above: Performed By: #### C BC, ADIFF, ANEU, BMP, GFR, PBNP, TROPHS #### [address] [address] Eosinophils/100 WBC (Bld) 2.5 % Normal 0.0-7.0 [facility] ([place]) Comment on above: Performed By: #### C BC, ADIFF, ANEU, BMP, GFR, PBNP, TROPHS #### [address] [address] Lymphocyte, Absolute 1.90 10 3/mcL Normal 0.77-3.85 [facility] ([place]) Comment on above: Performed By: #### C BC, ADIFF, ANEU, BMP, GFR, PBNP, TROPHS #### [address] [address] Lymphocytes/100 WBC (Bld) 14.8 % Normal 10.0-50.0 [facility] ([place]) Comment on above: Performed By: #### C BC, ADIFF, ANEU, BMP, GFR, PBNP, TROPHS #### [address] [address] Monocyte, Absolute 1.10 10 3/mcL High 0.15-1.00 [facility] ([place]) Comment on above: Performed By: #### C BC, ADIFF, ANEU, BMP, GFR, PBNP, TROPHS #### [address] [address] Monocytes/100 WBC (Bld) 8.4 % Normal 1.7-13.0 [facility] ([place]) Comment on above: Performed By: #### C BC, ADIFF, ANEU, BMP, GFR, PBNP, TROPHS #### [address] [address] Neutrophils/100 WBC (Bld) 73.7 % Normal 37.0-80.0 [facility] ([place] Comment on above: Performed By: #### C BC, ADIFF, ANEU, BMP, GFR, PBNP, TROPHS #### [address] [address] .GFRon 06-21-2021 GFR 97 ml/min/1.73sqm Normal [facility] ([place]) Comment on above: Result Comment: GFR [...] ADIFF, ANEU, BMP, GFR, PBNP, TROPHS #### [address] [address] GFR Non- 80 ml/min/1.73sqm Normal [facility] ([place]) Comment on above: Result Comment: GFR Population [...] ADIFF, ANEU, BMP, GFR, PBNP, TROPHS #### [address] [address] .NEUABSon 06-21-2021 Neutrophil, Absolute 9.40 10 3/mcL High 2.85-6.16 [facility] ([place]) Comment on above: Performed By: #### C BC, ADIFF, ANEU, BMP, GFR, PBNP, TROPHS #### [address] [address] BMPon 06-21-2021 BUN/Creatinine Ratio 14 ratio Normal 7-27 [facility] ([place]) Comment on above: Performed By: #### C BC, ADIFF, ANEU, BMP, GFR, PBNP, TROPHS #### [address] [address] Calcium [Mass/Vol] 9.6 mg/dL Normal 8.4-10.2 [facility] ([place]) Comment on above: Performed By: #### C BC, ADIFF, ANEU, BMP, GFR, PBNP, TROPHS #### [address] [address] Chloride [Moles/Vol] 99 mmol/L Normal 98-107 [facility] ([place]) Comment on above: Performed By: #### C BC, ADIFF, ANEU, BMP, GFR, PBNP, TROPHS #### [address] [address] CO2 [Moles/Vol] 30 mmol/L High 22-29 [facility] ([place]) Comment on above: Performed By: #### C BC, ADIFF, ANEU, BMP, GFR, PBNP, TROPHS #### [address] [address] Creatinine [Mass/Vol] 0.99 mg/dL Normal 0.70-1.30 [facility] ([place]) Comment on above: Performed By: #### C BC, ADIFF, ANEU, BMP, GFR, PBNP, TROPHS #### [address] [address] Electrolyte Balance 11.0 mEq/L Normal 4.0-15.0 [facility] ([place]) Comment on above: Performed By: #### C BC, ADIFF, ANEU, BMP, GFR, PBNP, TROPHS #### [address] [address] Glucose [Mass/Vol] 122 mg/dL High 70-105 [facility] ([place]) Comment on above: Performed By: #### C BC, ADIFF, ANEU, BMP, GFR, PBNP, TROPHS #### [address] [address] Potassium [Moles/Vol] 3.8 mmol/L Normal 3.5-5.1 [facility] ([place]) Comment on above: Performed By: #### C BC, ADIFF, ANEU, BMP, GFR, PBNP, TROPHS #### [address] [address] Sodium [Moles/Vol] 140 mmol/L Normal 136-145 [facility] ([place]) Comment on above: Performed By: #### C BC, ADIFF, ANEU, BMP, GFR, PBNP, TROPHS #### [place] [address] Urea nitrogen [Mass/Vol] 14 mg/dL Normal 7-18 [facility] ([place]) Comment on above: Performed By: #### C BC, ADIFF, ANEU, BMP, GFR, PBNP, TROPHS #### [place] [address] CBCon 06-21-2021 Erythrocyte distribution width (RBC) [Ratio] 14.5 % Normal 11.5-14.5 [facility] ([place]) Comment on above: Performed By: #### C BC, ADIFF, ANEU, BMP, GFR, PBNP, TROPHS #### [place] [address] Hematocrit (Bld) [Volume fraction] 42.6 % Normal 42.0-52.0 [facility] ([place] Comment on above: Performed By: #### C BC, ADIFF, ANEU, BMP, GFR, PBNP, TROPHS #### [place] [address] Hgb 13.9 G/dL Low 14.0-18.0 [facility] ([place] Comment on above: Performed By: #### C BC, ADIFF, ANEU, BMP, GFR, PBNP, TROPHS #### [place] [address] MCH (RBC) [Entitic mass] 29.4 pg Normal 27.0-31.2 [facility] ([place] Comment on above: Performed By: #### C BC, ADIFF, ANEU, BMP, GFR, PBNP, TROPHS #### [place] [address] MCHC 32.7 G/dL Normal 31.8-35.4 [facility] ([place] Comment on above: Performed By: #### C BC, ADIFF, ANEU, BMP, GFR, PBNP, TROPHS #### [address] [address] MCV (RBC) [Entitic vol] 90.1 fL Normal 80.0-94.0 [facility] ([place] Comment on above: Performed By: #### C BC, ADIFF, ANEU, BMP, GFR, PBNP, TROPHS #### [address] [address] Platelet 440 10 3/mcL High 130-400 [facility] ([place]) Comment on above: Performed By: #### C BC, ADIFF, ANEU, BMP, GFR, PBNP, TROPHS #### [address] [address] Platelet mean volume (Bld) [Entitic vol] 7.8 fL Normal 7.4-10.4 [facility] ([place] Comment on above: Performed By: #### C BC, ADIFF, ANEU, BMP, GFR, PBNP, TROPHS #### [address] [address] RBC 4.73 10 6/mcL Normal 4.04-6.13 [facility] ([place] Comment on above: Performed By: #### C BC, ADIFF, ANEU, BMP, GFR, PBNP, TROPHS #### [address] [address] WBC 12.80 10 3/mcL High 4.60-10.80 [facility] ([place] Comment on above: Performed By: #### C BC, ADIFF, ANEU, BMP, GFR, PBNP, TROPHS #### [address] [address] [id number] 06-21-2021 Date of Onset [id number] Invalid Interpretation Code [facility] ([place] Comment on above: Performed By: #### C OVD19 #### [address] [address] Employed in Healthcare Unknown Normal [facility] ([place] Comment on above: Performed By: #### Atif OVD19 #### [place] [id number] First Test Unknown Normal [facility] ([place] Comment on above: Performed By: #### C OVD19 #### [place] [id number] [place], [place] [address] Hospitalized No Normal [facility] ([place] Comment on above: Performed By: #### C OVD19 #### [place] [address] [place], [place] [address] ICU No Normal [facility] ([place] Comment on above: Performed By: #### C OVD19 #### [place] [address] [address] Not [facility] ([place]) Comment on above: Performed By: #### C OVD19 #### [place] [address] Resides in Congregate Care Setting No [facility] ([place]) Comment on above: Performed By: #### C OVD19 #### [place] [address] SARS-CoV-2 (COVID-19) RNA DESTINY+probe Ql (Unsp spec) Negative Normal Negative [facility] ([place]) Comment on above: Performed By: #### C OVD19 #### [place] [address] SARS-CoV-2 (COVID-19) RNA DESTINY+probe Ql (Unsp spec) Normal [facility] ([place]) Comment on above: Result Comment: Nega tive [...] Int Performed By: #### C OVD19 #### [address] [address] Symptomatic as Defined by CDC Yes Normal [facility] ([place]) Comment on above: Performed By: #### C OVD19 #### [address] [address] PBNPon 06-21-2021 Natriuretic peptide B (Bld) [Mass/Vol] 34 pg/mL Normal 0-125 [facility] ([place]) Comment on above: Result Comment: NT-p roBNP results of less than 300 pg/mL effectively rules out acute congestive heart failure with 99% negative predictive value. Performed By: #### C BC, ADIFF, ANEU, BMP, GFR, PBNP, TROPHS #### [address] [address] TROPHSon 06-21-2021 Troponin I High Sensitivity 6.1 ng/L Normal 0.0-76.2 [facility] ([place]) Comment on above: Performed By: #### C BC, ADIFF, ANEU, BMP, GFR, PBNP, TROPHS #### [address] [address] XR CHEST 1 VIEWon 06-21-2021 XR CHEST [...] 06/20/2021 11:48:28 PM Ordering Provider: DEVYN Barton [facility] ([place]) LABORATORYOrdered By: Anna Calhoun on 06-20-2021 ADMITTED [...] ALT [Catalytic activity/Vol] 22 U/L Normal 0-49 [facility] Comment on above: Result Comment: The ALT test is performed by an updated assay method. Please note that the reference intervals have been changed and are now sex specific. Performed By: #### H OMCY, FOLT3, HEMDF, BMP3M #### [facility] [address] [place] [address] #### MMA2 #### The performing lab is in the report. Calcium [Mass/Vol] 9.1 mg/dL Normal 8.4-10.4 [facility] Comment on above: Performed By: #### H OMCY, FOLT3, HEMDF, BMP3M #### [facility] [address] [place] [address] #### MMA2 #### The performing lab is in the report. Glucose [Mass/Vol] 169 mg/dL High 70-100 [facility] Comment on above: Performed By: #### H OMCY, FOLT3, HEMDF, BMP3M #### [facility] [address] [place] [address] #### MMA2 #### The performing lab is in the report. ALP [Catalytic activity/Vol] 92 U/L Normal 38-126 [facility] Comment on above: Performed By: #### H OMCY, FOLT3, HEMDF, BMP3M #### [facility] [address] [place] [address] #### MMA2 #### The performing lab is in the report. Anion gap [Moles/Vol] 4 mmol/L Normal 3-13 [facility] Comment on above: Performed By: #### H OMCY, FOLT3, HEMDF, BMP3M #### [facility] [address] [place] [address] #### MMA2 #### The performing lab is in the report. AST [Catalytic activity/Vol] 15 U/L Normal 15-46 [facility] Comment on above: Performed By: #### H OMCY, FOLT3, HEMDF, BMP3M #### [facility] [address] [place] [address] #### MMA2 #### The performing lab is in the report. Bilirubin [Mass/Vol] 0.5 mg/dL Normal 0.2-1.3 [facility] Comment on above: Performed By: #### H OMCY, FOLT3, HEMDF, BMP3M #### [facility] [address] [place] [address] #### MMA2 #### The performing lab is in the report. CO2 [Moles/Vol] 29 mmol/L Normal 22-30 [facility] Comment on above: Performed By: #### H OMCY, FOLT3, HEMDF, BMP3M #### [facility] [address] [place] [address] #### MMA2 #### The performing lab is in the report. Creatinine [Mass/Vol] 0.70 mg/dL Normal 0.52-1.25 [facility] Comment on above: Performed By: #### H OMCY, FOLT3, HEMDF, BMP3M #### [place] [address] [place] [address] #### MMA2 #### The performing lab is in the report. eGFR OTHER > 90.0 Normal >60 [facility] Comment on above: Result Comment: KDIG O [...] #### H OMCY, FOLT3, HEMDF, BMP3M #### [facility] [address] [place] [address] #### MMA2 #### The performing lab is in the report. GFR/1.73 sq M.predicted among blacks MDRD (S/P/Bld) [Vol rate/Area] mL/min/{1.73_m2} Normal >60 [facility] Comment on above: Performed By: #### H OMCY, FOLT3, HEMDF, BMP3M #### [facility] [address] [place] [address] #### MMA2 #### The performing lab is in the report. Protein [Mass/Vol] 6.1 g/dL Low 6.3-8.2 [facility] Comment on above: Performed By: #### H OMCY, FOLT3, HEMDF, BMP3M #### [facility] [address] [place] [address] #### MMA2 #### The performing lab is in the report. Urea nitrogen [Mass/Vol] 22 mg/dL High 7-17 [facility] Comment on above: Performed By: #### H OMCY, FOLT3, HEMDF, BMP3M #### [facility] [address] [place] [address] #### MMA2 #### The performing lab is in the report. Potassium [Moles/Vol] 4.2 mmol/L Normal 3.5-5.1 [facility] Comment on above: Performed By: #### H OMCY, FOLT3, HEMDF, BMP3M #### [facility] [address] [place] [address] #### MMA2 #### The performing lab is in the report. Sodium [Moles/Vol] 132 mmol/L Low 135-145 [facility] Comment on above: Performed By: #### H OMCY, FOLT3, HEMDF, BMP3M #### [facility] [address] [place] [address] #### MMA2 #### The performing lab is in the report. Albumin [Mass/Vol] 3.4 g/dL Low 3.5-5.0 [facility] Comment on above: Performed By: #### H OMCY, FOLT3, HEMDF, BMP3M #### [facility] [address] [place] [address] #### MMA2 #### The performing lab is in the report. Chloride [Moles/Vol] 99 mmol/L Normal 98-107 [facility] Comment on above: Performed By: #### H OMCY, FOLT3, HEMDF, BMP3M #### [facility] [address] [place] [address] #### MMA2 #### The performing lab is in the report. Hemogram w/ Autodiffon 04-13 Abs Baso Cnt 0.0 10*3/uL Normal 0.0-0.2 [facility] Comment on above: Performed By: #### H OMCY, FOLT3, HEMDF, BMP3M #### [facility] [address] [place] [address] #### MMA2 #### The performing lab is in the report. Abs Neutrophile Cnt 8.7 10*3/uL High 1.8-7.0 [facility] Comment on above: Performed By: #### H OMCY, FOLT3, HEMDF, BMP3M #### [facility] [address] [place] [address] #### MMA2 #### The performing lab is in the report. Basophils/100 WBC (Bld) 0.3 % Normal 0.0-2.0 [facility] Comment on above: Performed By: #### H OMCY, FOLT3, HEMDF, BMP3M #### [facility] [address] [place] [address] #### MMA2 #### The performing lab is in the report. Eosinophils (Bld) [#/Vol] 0.0 10*3/uL Normal 0.0-0.5 [facility] Comment on above: Performed By: #### H OMCY, FOLT3, HEMDF, BMP3M #### [facility] [address] [place] [address] #### MMA2 #### The performing lab is in the report. Eosinophils/100 WBC (Bld) 0.0 % Low 1.0-6.0 [facility] Comment on above: Performed By: #### H OMCY, FOLT3, HEMDF, BMP3M #### [facility] [address] [place] [address] #### MMA2 #### The performing lab is in the report. Erythrocyte distribution width (RBC) [Ratio] 15.4 % High 11.5-14.5 [facility] Comment on above: Performed By: #### H OMCY, FOLT3, HEMDF, BMP3M #### [facility] [address] [place] [address] #### MMA2 #### The performing lab is in the report. Granulocytes/100 WBC (Bld) 86.8 % High 40.0-80.0 [facility] Comment on above: Performed By: #### H OMCY, FOLT3, HEMDF, BMP3M #### [facility] [address] [place] [address] #### MMA2 #### The performing lab is in the report. Hematocrit (Bld) [Volume fraction] 41.2 % Normal 40.0-52.0 [facility] Comment on above: Performed By: #### H OMCY, FOLT3, HEMDF, BMP3M #### [facility] [address] [place] [address] #### MMA2 #### The performing lab is in the report. Hemoglobin (Bld) [Mass/Vol] 13.2 g/dL Normal 13.0-18.0 [facility] Comment on above: Performed By: #### H OMCY, FOLT3, HEMDF, BMP3M #### [facility] [address] [place] [address] #### MMA2 #### The performing lab is in the report. Lymphocytes (Bld) [#/Vol] 0.7 10*3/uL Low 1.0-4.3 [facility] Comment on above: Performed By: #### H OMCY, FOLT3, HEMDF, BMP3M #### [place] [address] [place] [address] #### MMA2 #### The performing lab is in the report. Lymphocytes/100 WBC (Bld) 6.5 % Low 20.0-40.0 [facility] Comment on above: Performed By: #### H OMCY, FOLT3, HEMDF, BMP3M #### [address] [place] [address] #### MMA2 #### The performing lab is in the report. MCH (RBC) [Entitic mass] 28.8 pg Normal 26.0-34.0 [facility] Comment on above: Performed By: #### H OMCY, FOLT3, HEMDF, BMP3M #### [address] [place] [address] #### MMA2 #### The performing lab is in the report. MCHC 32.1 % Normal 32.0-36.0 [facility] Comment on above: Performed By: #### H OMCY, FOLT3, HEMDF, BMP3M #### [address] [place] [address] #### MMA2 #### The performing lab is in the report. MCV (RBC) [Entitic vol] 89.7 fL Normal 80.0-98.0 [facility] Comment on above: Performed By: #### H OMCY, FOLT3, HEMDF, BMP3M #### [address] [place] [address] #### MMA2 #### The performing lab is in the report. Monocytes (Bld) [#/Vol] 0.6 10*3/uL Normal 0.0-0.8 [facility] Comment on above: Performed By: #### H OMCY, FOLT3, HEMDF, BMP3M #### [facility] [address] [place] [address] #### MMA2 #### The performing lab is in the report. Monocytes/100 WBC (Bld) 6.4 % Normal 2.0-10.0 [facility] Comment on above: Performed By: #### H OMCY, FOLT3, HEMDF, BMP3M #### [facility] [address] [place] [address] #### MMA2 #### The performing lab is in the report. Platelet mean volume (Bld) [Entitic vol] 7.4 fL Normal 7.4-10.4 [facility] Comment on above: Performed By: #### H OMCY, FOLT3, HEMDF, BMP3M #### [facility] [address] [place] [address] #### MMA2 #### The performing lab is in the report. Platelets (Bld) [#/Vol] 375 10*3/uL Normal 140-440 [facility] Comment on above: Performed By: #### H OMCY, FOLT3, HEMDF, BMP3M #### [facility] [address] [place] [address] #### MMA2 #### The performing lab is in the report. RBC (Bld) [#/Vol] 4.59 10*6/uL Normal 4.40-5.90 [facility] Comment on above: Performed By: #### H OMCY, FOLT3, HEMDF, BMP3M #### [facility] [address] [place] [address] #### MMA2 #### The performing lab is in the report. WBC (Bld) [#/Vol] 10.0 10*3/uL Normal 3.6-10.7 [facility] Comment on above: Performed By: #### H OMCY, FOLT3, HEMDF, BMP3M #### [facility] [address] [place] [address] #### MMA2 #### The performing lab is in the report. Comp Panel with Mg Reflexon 04-12-2021 ALP [Catalytic activity/Vol] 68 U/L Normal 38-126 [facility] Comment on above: Performed By: #### Aaliyah TURK CMP3M ####[facility] [place] [address] ALT [Catalytic activity/Vol] 23 U/L Normal 0-49 [facility] Comment on above: Result Comment: The ALT test is performed by an updated assay method. Please note that the reference intervals have been changed and are now sex specific. Performed By: #### Aaliyah TURK CMP3M ####[facility] [place] [address] Calcium [Mass/Vol] 8.7 mg/dL Normal 8.4-10.4 [facility] Comment on above: Performed By: #### Aaliyah TURK CMP3M ####[facility] [place] [address] Glucose [Mass/Vol] 146 mg/dL High 70-100 [facility] Comment on above: Performed By: #### Aaliyah TURK CMP3M ####[facility] [place] [address] Urea nitrogen [Mass/Vol] 20 mg/dL High 7-17 [facility] Comment on above: Performed By: #### Aaliyah TURK CMP3M ####[place] [address] [place] [address] Anion gap [Moles/Vol] 0 mmol/L Low 3-13 [facility] Comment on above: Performed By: #### Aaliyah TURK CMP3M ####[facility] [place] [address] AST [Catalytic activity/Vol] 17 U/L Normal 15-46 [facility] Comment on above: Performed By: #### Aaliyah TURK CMP3M ####[facility] [place] [address] Bilirubin [Mass/Vol] 0.5 mg/dL Normal 0.2-1.3 [facility] Comment on above: Performed By: #### Aaliyah TURK CMP3M ####[facility] [place] [address] CO2 [Moles/Vol] 32 mmol/L High 22-30 [facility] Comment on above: Performed By: #### H JACQUELINE TURK3M ####[place] [address] [place] [address] Creatinine [Mass/Vol] 0.69 mg/dL Normal 0.52-1.25 [facility] Comment on above: Performed By: #### H JACQUELINE TURK3M ####[address] [facility] [place] [address] eGFR OTHER > 90.0 Normal >60 [facility] Comment on above: Result Comment: KDIG O [...] secretion. Performed By: #### H JACQUELINE TURK3M ####[address] [facility] [place] [address] GFR/1.73 sq M.predicted among blacks MDRD (S/P/Bld) [Vol rate/Area] mL/min/{1.73_m2} Normal >60 [facility] Comment on above: Performed By: #### H JACQUELINE TURK3M ####[address] [place] [address] Protein [Mass/Vol] 6.0 g/dL Low 6.3-8.2 [facility] Comment on above: Performed By: #### H JACQUELINE TURK3M ####[address] [place] [address] Potassium [Moles/Vol] 4.3 mmol/L Normal 3.5-5.1 [facility] Comment on above: Performed By: #### Aaliyah TURK CMP3M ####[facility] [place] [address] Sodium [Moles/Vol] 132 mmol/L Low 135-145 [facility] Comment on above: Performed By: #### H BURKE CMP3M ####[facility] [place] [address] Albumin [Mass/Vol] 3.3 g/dL Low 3.5-5.0 [facility] Comment on above: Performed By: #### H BURKE CMP3M ####[place] [address] [place] [address] Chloride [Moles/Vol] 100 mmol/L Normal 98-107 [facility] Comment on above: Performed By: #### Aaliyah TURK CMP3M ####[place] [address] [place] [address] Hemogram w/ Autodiffon 04-12 Abs Baso Cnt 0.0 10*3/uL Normal 0.0-0.2 [facility] Comment on above: Performed By: #### Aaliyah TURK CMP3M ####[place] [address] [place] [address] Abs Neutrophile Cnt 7.2 10*3/uL High 1.8-7.0 [facility] Comment on above: Performed By: #### Aaliyah TURK CMP3M ####[place] [address] [place] [address] Basophils/100 WBC (Bld) 0.1 % Normal 0.0-2.0 [facility] Comment on above: Performed By: #### Aaliyah TURK CMP3M ####[place] [address] [place] [address] Eosinophils (Bld) [#/Vol] 0.0 10*3/uL Normal 0.0-0.5 [facility] Comment on above: Performed By: #### Aaliyah TURK CMP3M ####[place] [address] [place] [address] Eosinophils/100 WBC (Bld) 0.2 % Low 1.0-6.0 [facility] Comment on above: Performed By: #### Aaliyah TURK CMP3M ####[place] [address] [place] [address] Erythrocyte distribution width (RBC) [Ratio] 15.3 % High 11.5-14.5 [facility] Comment on above: Performed By: #### H BURKE CMP3M ####[place] [address] [place] [address] Granulocytes/100 WBC (Bld) 83.5 % High 40.0-80.0 [facility] Comment on above: Performed By: #### Aaliyah TURK CMP3M ####[place] [address] [place] [address] Hematocrit (Bld) [Volume fraction] 40.4 % Normal 40.0-52.0 [facility] Comment on above: Performed By: #### Aaliyah TURK CMP3M ####[place] [address] [place] [address] Hemoglobin (Bld) [Mass/Vol] 13.2 g/dL Normal 13.0-18.0 [facility] Comment on above: Performed By: #### Aaliyah TURK CMP3M ####[place] [address] [place] [address] Lymphocytes (Bld) [#/Vol] 0.7 10*3/uL Low 1.0-4.3 [facility] Comment on above: Performed By: #### Aaliyah TURK CMP3M ####[place] [address] [place] [address] Lymphocytes/100 WBC (Bld) 8.7 % Low 20.0-40.0 [facility] Comment on above: Performed By: #### Aaliyah TURK CMP3M ####[place] [address] [place] [address] MCH (RBC) [Entitic mass] 29.4 pg Normal 26.0-34.0 [facility] Comment on above: Performed By: #### Aaliyah TURK CMP3M ####[facility] [place] [address] MCHC 32.7 % Normal 32.0-36.0 [facility] Comment on above: Performed By: #### H BURKE CMP3M ####[facility] [place] [address] MCV (RBC) [Entitic vol] 90.0 fL Normal 80.0-98.0 [facility] Comment on above: Performed By: #### H BURKE CMP3M ####[facility] [place] [address] Monocytes (Bld) [#/Vol] 0.6 10*3/uL Normal 0.0-0.8 [facility] Comment on above: Performed By: #### H BURKE CMP3M ####[place] [address] [place] [address] Monocytes/100 WBC (Bld) 7.5 % Normal 2.0-10.0 [facility] Comment on above: Performed By: #### H BURKE CMP3M ####[place] [address] [place] [address] Platelet mean volume (Bld) [Entitic vol] 7.5 fL Normal 7.4-10.4 [facility] Comment on above: Performed By: #### H BURKE CMP3M ####[place] [address] [place] [address] Platelets (Bld) [#/Vol] 330 10*3/uL Normal 140-440 [facility] Comment on above: Performed By: #### H BURKE CMP3M ####[facility] [place] [address] RBC (Bld) [#/Vol] 4.49 10*6/uL Normal 4.40-5.90 [facility] Comment on above: Performed By: #### H EMDJamee CMP3M ####[place] [address] [place] [address] WBC (Bld) [#/Vol] 8.6 10*3/uL Normal 3.6-10.7 [facility] Comment on above: Performed By: #### H EMDF, CMP3M ####[facility] [place] [address] CULT./ST. RESPIRATORYon 03-15 CULT./ST. RESPIRATORY CULT./ST. RESPIRAT ORY --> Status: F Few normal respiratory olayinka. Normal [facility] Comment on above: Performed By: #### H EMDF, BMP3M #### [facility] [address] [place] [address] Comp Panel with Mg Reflexon 04-11-2021 Calcium [Mass/Vol] 8.9 mg/dL Normal 8.4-10.4 [facility] Comment on above: Performed By: #### H OMCY, FOLT3, HEMDF, BMP3M #### [facility] [address] [place] [address] #### MMA2 #### The performing lab is in the report. ALP [Catalytic activity/Vol] 70 U/L Normal 38-126 [facility] Comment on above: Performed By: #### H OMCY, FOLT3, HEMDF, BMP3M #### [facility] [address] [place] [address] #### MMA2 #### The performing lab is in the report. ALT [Catalytic activity/Vol] 27 U/L Normal 0-49 [facility] Comment on above: Result Comment: The ALT test is performed by an updated assay method. Please note that the reference intervals have been changed and are now sex specific. Performed By: #### H OMCY, FOLT3, HEMDF, BMP3M #### [facility] [address] [place] [address] #### MMA2 #### The performing lab is in the report. Anion gap [Moles/Vol] 4 mmol/L Normal 3-13 [facility] Comment on above: Performed By: #### H OMCY, FOLT3, HEMDF, BMP3M #### [facility] [address] [place] [address] #### MMA2 #### The performing lab is in the report. AST [Catalytic activity/Vol] 24 U/L Normal 15-46 [facility] Comment on above: Performed By: #### H OMCY, FOLT3, HEMDF, BMP3M #### [facility] [address] [place] [address] #### MMA2 #### The performing lab is in the report. Bilirubin [Mass/Vol] 0.5 mg/dL Normal 0.2-1.3 [facility] Comment on above: Performed By: #### H OMCY, FOLT3, HEMDF, BMP3M #### [facility] [address] [place] [address] #### MMA2 #### The performing lab is in the report. CO2 [Moles/Vol] 30 mmol/L Normal 22-30 [facility] Comment on above: Performed By: #### H OMCY, FOLT3, HEMDF, BMP3M #### [facility] [address] [place] [address] #### MMA2 #### The performing lab is in the report. Glucose [Mass/Vol] 150 mg/dL High 70-100 [facility] Comment on above: Performed By: #### H OMCY, FOLT3, HEMDF, BMP3M #### [facility] [address] [place] [address] #### MMA2 #### The performing lab is in the report. Protein [Mass/Vol] 6.1 g/dL Low 6.3-8.2 [facility] Comment on above: Performed By: #### H OMCY, FOLT3, HEMDF, BMP3M #### [facility] [address] [place] [address] #### MMA2 #### The performing lab is in the report. Urea nitrogen [Mass/Vol] 21 mg/dL High 7-17 [facility] Comment on above: Performed By: #### H OMCY, FOLT3, HEMDF, BMP3M #### [facility] [address] [place] [address] #### MMA2 #### The performing lab is in the report. Creatinine [Mass/Vol] 0.75 mg/dL Normal 0.52-1.25 [facility] Comment on above: Performed By: #### H OMCY, FOLT3, HEMDF, BMP3M #### [facility] [address] [place] [address] #### MMA2 #### The performing lab is in the report. eGFR OTHER > 90.0 Normal >60 [facility] Comment on above: Result Comment: KDIG O [...] #### H OMCY, FOLT3, HEMDF, BMP3M #### [facility] [address] [place] [address] #### MMA2 #### The performing lab is in the report. GFR/1.73 sq M.predicted among blacks MDRD (S/P/Bld) [Vol rate/Area] mL/min/{1.73_m2} Normal >60 [facility] Comment on above: Performed By: #### H OMCY, FOLT3, HEMDF, BMP3M #### [facility] [address] [place] [address] #### MMA2 #### The performing lab is in the report. Albumin [Mass/Vol] 3.4 g/dL Low 3.5-5.0 [facility] Comment on above: Performed By: #### H OMCY, FOLT3, HEMDF, BMP3M #### [facility] [address] [place] [address] #### MMA2 #### The performing lab is in the report. Chloride [Moles/Vol] 99 mmol/L Normal 98-107 [facility] Comment on above: Performed By: #### H OMCY, FOLT3, HEMDF, BMP3M #### [facility] [address] [place] [address] #### MMA2 #### The performing lab is in the report. Potassium [Moles/Vol] 4.4 mmol/L Normal 3.5-5.1 [facility] Comment on above: Performed By: #### H OMCY, FOLT3, HEMDF, BMP3M #### [facility] [address] [place] [address] #### MMA2 #### The performing lab is in the report. Sodium [Moles/Vol] 133 mmol/L Low 135-145 [facility] Comment on above: Performed By: #### H OMCY, FOLT3, HEMDF, BMP3M #### [facility] [address] [place] [address] #### MMA2 #### The performing lab is in the report. Hemogram w/ Autodiffon 04-11 Abs Baso Cnt 0.0 10*3/uL Normal 0.0-0.2 [facility] Comment on above: Performed By: #### H OMCY, FOLT3, HEMDF, BMP3M #### [facility] [address] [place] [address] #### MMA2 #### The performing lab is in the report. Abs Neutrophile Cnt 6.6 10*3/uL Normal 1.8-7.0 [facility] Comment on above: Performed By: #### H OMCY, FOLT3, HEMDF, BMP3M #### [facility] [facility] [address] [place] [address] #### MMA2 #### The performing lab is in the report. Basophils/100 WBC (Bld) 0.1 % Normal 0.0-2.0 [facility] Comment on above: Performed By: #### H OMCY, FOLT3, HEMDF, BMP3M #### [facility] [address] [place] [address] #### MMA2 #### The performing lab is in the report. Eosinophils (Bld) [#/Vol] 0.0 10*3/uL Normal 0.0-0.5 [facility] Comment on above: Performed By: #### H OMCY, FOLT3, HEMDF, BMP3M #### [facility] [address] [place] [address] #### MMA2 #### The performing lab is in the report. Eosinophils/100 WBC (Bld) 0.0 % Low 1.0-6.0 [facility] Comment on above: Performed By: #### H OMCY, FOLT3, HEMDF, BMP3M #### [facility] [address] [place] [address] #### MMA2 #### The performing lab is in the report. Erythrocyte distribution width (RBC) [Ratio] 15.3 % High 11.5-14.5 [facility] Comment on above: Performed By: #### H OMCY, FOLT3, HEMDF, BMP3M #### [facility] [address] [place] [address] #### MMA2 #### The performing lab is in the report. Granulocytes/100 WBC (Bld) 83.9 % High 40.0-80.0 [facility] Comment on above: Performed By: #### H OMCY, FOLT3, HEMDF, BMP3M #### [facility] [address] [place] [address] #### MMA2 #### The performing lab is in the report. Hematocrit (Bld) [Volume fraction] 40.6 % Normal 40.0-52.0 [facility] Comment on above: Performed By: #### H OMCY, FOLT3, HEMDF, BMP3M #### [facility] [address] [place] [address] #### MMA2 #### The performing lab is in the report. Hemoglobin (Bld) [Mass/Vol] 13.1 g/dL Normal 13.0-18.0 [facility] Comment on above: Performed By: #### H OMCY, FOLT3, HEMDF, BMP3M #### [facility] [address] [place] [address] #### MMA2 #### The performing lab is in the report. Lymphocytes (Bld) [#/Vol] 0.7 10*3/uL Low 1.0-4.3 [facility] Comment on above: Performed By: #### H OMCY, FOLT3, HEMDF, BMP3M #### [facility] [address] [place] [address] #### MMA2 #### The performing lab is in the report. Lymphocytes/100 WBC (Bld) 8.7 % Low 20.0-40.0 [facility] Comment on above: Performed By: #### H OMCY, FOLT3, HEMDF, BMP3M #### [facility] [address] [place] [address] #### MMA2 #### The performing lab is in the report. MCH (RBC) [Entitic mass] 29.0 pg Normal 26.0-34.0 [facility] Comment on above: Performed By: #### H OMCY, FOLT3, HEMDF, BMP3M #### [facility] [address] [place] [address] #### MMA2 #### The performing lab is in the report. MCHC 32.3 % Normal 32.0-36.0 [facility] Comment on above: Performed By: #### H OMCY, FOLT3, HEMDF, BMP3M #### [facility] [address] [place] [address] #### MMA2 #### The performing lab is in the report. MCV (RBC) [Entitic vol] 89.8 fL Normal 80.0-98.0 [facility] Comment on above: Performed By: #### H OMCY, FOLT3, HEMDF, BMP3M #### [facility] [address] [place] [address] #### MMA2 #### The performing lab is in the report. Monocytes (Bld) [#/Vol] 0.6 10*3/uL Normal 0.0-0.8 [facility] Comment on above: Performed By: #### H OMCY, FOLT3, HEMDF, BMP3M #### [facility] [address] [place] [address] #### MMA2 #### The performing lab is in the report. Monocytes/100 WBC (Bld) 7.3 % Normal 2.0-10.0 [facility] Comment on above: Performed By: #### H OMCY, FOLT3, HEMDF, BMP3M #### [facility] [address] [place] [address] #### MMA2 #### The performing lab is in the report. Platelet mean volume (Bld) [Entitic vol] 7.7 fL Normal 7.4-10.4 [facility] Comment on above: Performed By: #### H OMCY, FOLT3, HEMDF, BMP3M #### [facility] [address] [place] [address] #### MMA2 #### The performing lab is in the report. Platelets (Bld) [#/Vol] 314 10*3/uL Normal 140-440 [facility] Comment on above: Performed By: #### H OMCY, FOLT3, HEMDF, BMP3M #### [facility] [address] [place] [address] #### MMA2 #### The performing lab is in the report. RBC (Bld) [#/Vol] 4.53 10*6/uL Normal 4.40-5.90 [facility] Comment on above: Performed By: #### H OMCY, FOLT3, HEMDF, BMP3M #### [facility] [address] [place] [address] #### MMA2 #### The performing lab is in the report. WBC (Bld) [#/Vol] 7.8 10*3/uL Normal 3.6-10.7 [facility] Comment on above: Performed By: #### H OMCY, FOLT3, HEMDF, BMP3M #### [facility] [address] [place] [address] #### MMA2 #### The performing lab is in the report. CULT./ST. RESPIRATORYon 03-15 CULT./ST. RESPIRATORY CULT./ST. RESPIRAT ORY --> Status: F Moderate normal respiratory olayinka. Normal [facility] Comment on above: Performed By: #### H EMDF, BMP3M #### [facility] [address] [place] [address] Comp Panel with Mg Reflexon 04-10-2021 ALT [Catalytic activity/Vol] 29 U/L Normal 0-49 [facility] Comment on above: Result Comment: The ALT test is performed by an updated assay method. Please note that the reference intervals have been changed and are now sex specific. Performed By: #### C MP3M, HEMDF ####[place] [address] [place] [address] Calcium [Mass/Vol] 8.6 mg/dL Normal 8.4-10.4 [facility] Comment on above: Performed By: #### C MP3M, HEMDF ####[facility] [place] [address] Glucose [Mass/Vol] 138 mg/dL High 70-100 [facility] Comment on above: Performed By: #### C MP3M, HEMDF ####[place] [address] [place] [address] ALP [Catalytic activity/Vol] 65 U/L Normal 38-126 [facility] Comment on above: Performed By: #### C MP3M, HEMDF ####[facility] [place] [address] Anion gap [Moles/Vol] 4 mmol/L Normal 3-13 [facility] Comment on above: Performed By: #### C MP3M, HEMDF ####[facility] [place] [address] AST [Catalytic activity/Vol] 17 U/L Normal 15-46 [facility] Comment on above: Performed By: #### C MP3M, HEMDF ####[place] [address] [place] [address] Bilirubin [Mass/Vol] 0.4 mg/dL Normal 0.2-1.3 [facility] Comment on above: Performed By: #### C MP3M, HEMDF ####[place] [address] [place] [address] CO2 [Moles/Vol] 28 mmol/L Normal 22-30 [facility] Comment on above: Performed By: #### C MP3M, HEMDF ####[place] [address] [place] [address] Creatinine [Mass/Vol] 0.67 mg/dL Normal 0.52-1.25 [facility] Comment on above: Performed By: #### C MP3M, HEMDF ####[address] [place] [address] eGFR OTHER > 90.0 Normal >60 [facility] Comment on above: Result Comment: KDIG O [...] secretion. Performed By: #### C MP3M, HEMDF ####[place] [address] [place] [address] GFR/1.73 sq M.predicted among blacks MDRD (S/P/Bld) [Vol rate/Area] mL/min/{1.73_m2} Normal >60 [facility] Comment on above: Performed By: #### C MP3M, HEMDF ####[address] [address] Protein [Mass/Vol] 5.7 g/dL Low 6.3-8.2 [facility] Comment on above: Performed By: #### C MP3M, HEMDF ####[facility] [place] [address] Urea nitrogen [Mass/Vol] 17 mg/dL Normal 7-17 [facility] Comment on above: Performed By: #### C MP3M, HEMDF ####[facility] [place] [address] Potassium [Moles/Vol] 3.8 mmol/L Normal 3.5-5.1 [facility] Comment on above: Performed By: #### C MP3M, HEMDF ####[facility] [place] [address] Albumin [Mass/Vol] 3.1 g/dL Low 3.5-5.0 [facility] Comment on above: Performed By: #### C MP3M, HEMDF ####[facility] [place] [address] Chloride [Moles/Vol] 98 mmol/L Normal 98-107 [facility] Comment on above: Performed By: #### C MP3M, HEMDF ####[facility] [employer] [address] [place] [address] Sodium [Moles/Vol] 130 mmol/L Low 135-145 [facility] Comment on above: Performed By: #### C MP3M, HEMDF ####[facility] [place] [address] Hemogram w/ Autodiffon 04-10 Abs Baso Cnt 0.0 10*3/uL Normal 0.0-0.2 [facility] Comment on above: Performed By: #### C MP3M, HEMDF ####[facility] [place] [address] Abs Neutrophile Cnt 4.5 10*3/uL Normal 1.8-7.0 [facility] Comment on above: Performed By: #### C MP3M, HEMDF ####[facility] [place] [address] Basophils/100 WBC (Bld) 0.1 % Normal 0.0-2.0 [facility] Comment on above: Performed By: #### C MP3M, HEMDF ####[address] [facility] [place] [address] Eosinophils (Bld) [#/Vol] 0.0 10*3/uL Normal 0.0-0.5 [facility] Comment on above: Performed By: #### C MP3M, HEMDF ####[place] [address] [facility] [place] [address] Eosinophils/100 WBC (Bld) 0.0 % Low 1.0-6.0 [facility] Comment on above: Performed By: #### C MP3M, HEMDF ####[address] [place] [address] Erythrocyte distribution width (RBC) [Ratio] 15.5 % High 11.5-14.5 [facility] Comment on above: Performed By: #### C MP3M, HEMDF ####[address] [place] [address] Granulocytes/100 WBC (Bld) 80.9 % High 40.0-80.0 [facility] Comment on above: Performed By: #### C MP3M, HEMDF ####[address] [place] [address] Hematocrit (Bld) [Volume fraction] 38.5 % Low 40.0-52.0 [facility] Comment on above: Performed By: #### C MP3M, HEMDF ####[address] [facility] [place] [address] Hemoglobin (Bld) [Mass/Vol] 12.3 g/dL Low 13.0-18.0 [facility] Comment on above: Performed By: #### C MP3M, HEMDF ####[address] [place] [facility] [place] [address] Lymphocytes (Bld) [#/Vol] 0.7 10*3/uL Low 1.0-4.3 [facility] Comment on above: Performed By: #### C MP3M, HEMDF ####[address] [place] [address] Lymphocytes/100 WBC (Bld) 12.2 % Low 20.0-40.0 [facility] Comment on above: Performed By: #### C MP3M, HEMDF ####[address] [place] [address] MCH (RBC) [Entitic mass] 28.7 pg Normal 26.0-34.0 [facility] Comment on above: Performed By: #### C MP3M, HEMDF ####[address] [place] [address] MCHC 32.0 % Normal 32.0-36.0 [facility] Comment on above: Performed By: #### C MP3M, HEMDF ####[address] [place] [address] MCV (RBC) [Entitic vol] 89.7 fL Normal 80.0-98.0 [facility] Comment on above: Performed By: #### C MP3M, HEMDF ####[address] [place] [address] Monocytes (Bld) [#/Vol] 0.4 10*3/uL Normal 0.0-0.8 [facility] Comment on above: Performed By: #### C MP3M, HEMDF ####[address] [place] [address] Monocytes/100 WBC (Bld) 6.8 % Normal 2.0-10.0 [facility] Comment on above: Performed By: #### C MP3M, HEMDF ####[address] [place] [address] Platelet mean volume (Bld) [Entitic vol] 7.8 fL Normal 7.4-10.4 [facility] Comment on above: Performed By: #### C MP3M, HEMDF ####[address] [place] [address] Platelets (Bld) [#/Vol] 260 10*3/uL Normal 140-440 [facility] Comment on above: Performed By: #### C MP3M, HEMDF ####[address] [place] [address] RBC (Bld) [#/Vol] 4.29 10*6/uL Low 4.40-5.90 [facility] Comment on above: Performed By: #### C MP3M, HEMDF ####[facility] [place] [address] WBC (Bld) [#/Vol] 5.5 10*3/uL Normal 3.6-10.7 [facility] Comment on above: Performed By: #### C MP3M, HEMDF ####[facility] [place] [address] LEGIONELLA AG, URINEon 04-09 LEGIONELLA AG, URINE Not detected Normal [facility] Comment on above: Performed By: #### H EMDF, BMP3M #### [facility] [address] [place] [address] STAIN GRAMon 04-09-2021 STAIN GRAM STAIN GRAM --> Statu s: F Rare epithelial cells/lpf. Few polymorphonuclear cells/lpf. Rare gram negative bacilli. Few gram positive cocci in clusters. Few polymorphonuclear cells/lpf. Rare gram negative bacilli. Few gram positive cocci in clusters. Normal [facility] Comment on above: Performed By: #### H EMDF, BMP3M #### [facility] [address] [place] [address] STREP PNEUMO ANTIGEN, URINEo n 04-09-2021 STREP PNEUMO ANTIGEN, URINE Not detected Normal [facility] Comment on above: Performed By: #### H EMDF, BMP3M #### [facility] [address] [place] [address] Add on test from HISon 04-08 Add on test from HIS Accepted Normal [facility] Comment on above: Result Comment: Spec imen available & acceptable for analysis. Performed By: #### H OMCY, FOLT3, HEMDF, BMP3M #### [facility] [address] [place] [address] #### MMA2 #### The performing lab is in the report. C-Reactive Proteinon 022 CRP [Mass/Vol] 7.9 mg/L Normal 0.0-9.9 [facility] Comment on above: Result Comment: . Performed By: #### H OMCY, FOLT3, HEMDF, BMP3M #### [facility] [address] [place] [address] #### MMA2 #### The performing lab is in the report. CTA Chest w/ + w/o Contrasto n 04-08-2021 CTA Chest w/ + w/o Contrast Patient Name: LUSI STEELE Computed Tomography ACCESSION EXAM DATE/TIME PROCEDURE ORDERING PROVIDER [id number] 04/08/2021 13:29 EST CTA Chest w/ + w/o MD SALVATORE, GENE Contrast CPT code 92083 [id number] Reason For Exam (CTA Chest w/ [...] Transcribed Date and Time: 04/08/2021 2:34 Normal [facility] Comp Metabolic Panelon 04-08 Calcium [Mass/Vol] 8.3 mg/dL Low 8.4-10.4 [facility] Comment on above: Performed By: #### H OMCY, FOLT3, HEMDF, BMP3M #### [facility] [address] [place] [address] #### MMA2 #### The performing lab is in the report. Glucose [Mass/Vol] 144 mg/dL High 70-100 [facility] Comment on above: Performed By: #### H OMCY, FOLT3, HEMDF, BMP3M #### [facility] [address] [place] [address] #### MMA2 #### The performing lab is in the report. ALP [Catalytic activity/Vol] 71 U/L Normal 38-126 [facility] Comment on above: Performed By: #### H OMCY, FOLT3, HEMDF, BMP3M #### [facility] [address] [place] [address] #### MMA2 #### The performing lab is in the report. ALT [Catalytic activity/Vol] 29 U/L Normal 0-49 [facility] Comment on above: Result Comment: The ALT test is performed by an updated assay method. Please note that the reference intervals have been changed and are now sex specific. Performed By: #### H OMCY, FOLT3, HEMDF, BMP3M #### [facility] [address] [place] [address] #### MMA2 #### The performing lab is in the report. Anion gap [Moles/Vol] 4 mmol/L Normal 3-13 [facility] Comment on above: Performed By: #### H OMCY, FOLT3, HEMDF, BMP3M #### [facility] [address] [place] [address] #### MMA2 #### The performing lab is in the report. AST [Catalytic activity/Vol] 27 U/L Normal 15-46 [facility] Comment on above: Performed By: #### H OMCY, FOLT3, HEMDF, BMP3M #### [facility] [address] [place] [address] #### MMA2 #### The performing lab is in the report. Bilirubin [Mass/Vol] 0.3 mg/dL Normal 0.2-1.3 [facility] Comment on above: Performed By: #### H OMCY, FOLT3, HEMDF, BMP3M #### [facility] [address] [place] [address] #### MMA2 #### The performing lab is in the report. CO2 [Moles/Vol] 28 mmol/L Normal 22-30 [facility] Comment on above: Performed By: #### H OMCY, FOLT3, HEMDF, BMP3M #### [facility] [address] [place] [address] #### MMA2 #### The performing lab is in the report. Creatinine [Mass/Vol] 0.70 mg/dL Normal 0.52-1.25 [facility] Comment on above: Performed By: #### H OMCY, FOLT3, HEMDF, BMP3M #### [facility] [address] [place] [address] #### MMA2 #### The performing lab is in the report. eGFR OTHER > 90.0 Normal >60 [facility] Comment on above: Result Comment: KDIG O [...] #### H OMCY, FOLT3, HEMDF, BMP3M #### [facility] [address] [place] [address] #### MMA2 #### The performing lab is in the report. GFR/1.73 sq M.predicted among blacks MDRD (S/P/Bld) [Vol rate/Area] mL/min/{1.73_m2} Normal >60 [facility] Comment on above: Performed By: #### H OMCY, FOLT3, HEMDF, BMP3M #### [facility] [address] [place] [address] #### MMA2 #### The performing lab is in the report. Protein [Mass/Vol] 6.0 g/dL Low 6.3-8.2 [facility] Comment on above: Performed By: #### H OMCY, FOLT3, HEMDF, BMP3M #### [facility] [address] [place] [address] #### MMA2 #### The performing lab is in the report. Urea nitrogen [Mass/Vol] 19 mg/dL High 7-17 [facility] Comment on above: Performed By: #### H OMCY, FOLT3, HEMDF, BMP3M #### [facility] [address] [place] [address] #### MMA2 #### The performing lab is in the report. Potassium [Moles/Vol] 3.9 mmol/L Normal 3.5-5.1 [facility] Comment on above: Performed By: #### H OMCY, FOLT3, HEMDF, BMP3M #### [facility] [address] [place] [address] #### MMA2 #### The performing lab is in the report. Albumin [Mass/Vol] 3.4 g/dL Low 3.5-5.0 [facility] Comment on above: Performed By: #### H OMCY, FOLT3, HEMDF, BMP3M #### [facility] [address] [place] [address] #### MMA2 #### The performing lab is in the report. Chloride [Moles/Vol] 101 mmol/L Normal 98-107 [facility] Comment on above: Performed By: #### H OMCY, FOLT3, HEMDF, BMP3M #### [facility] [address] [place] [address] #### MMA2 #### The performing lab is in the report. Sodium [Moles/Vol] 133 mmol/L Low 135-145 [facility] Comment on above: Performed By: #### H OMCY, FOLT3, HEMDF, BMP3M #### [facility] [address] [place] [address] #### MMA2 #### The performing lab is in the report. Hemogramon 04-08-2021 Erythrocyte distribution width (RBC) [Ratio] 15.7 % High 11.5-14.5 [facility] Comment on above: Performed By: #### H OMCY, FOLT3, HEMDF, BMP3M #### [facility] [address] [place] [address] #### MMA2 #### The performing lab is in the report. Hematocrit (Bld) [Volume fraction] 37.2 % Low 40.0-52.0 [facility] Comment on above: Performed By: #### H OMCY, FOLT3, HEMDF, BMP3M #### [facility] [address] [place] [address] #### MMA2 #### The performing lab is in the report. Hemoglobin (Bld) [Mass/Vol] 12.1 g/dL Low 13.0-18.0 [facility] Comment on above: Performed By: #### H OMCY, FOLT3, HEMDF, BMP3M #### [facility] [address] [place] [id number] #### MMA2 #### The performing lab is in the report. MCH (RBC) [Entitic mass] 29.0 pg Normal 26.0-34.0 [facility] Comment on above: Performed By: #### H OMCY, FOLT3, HEMDF, BMP3M #### [facility] [address] [place] [address] #### MMA2 #### The performing lab is in the report. MCHC 32.6 % Normal 32.0-36.0 [facility] Comment on above: Performed By: #### H OMCY, FOLT3, HEMDF, BMP3M #### [facility] [address] [place] [address] #### MMA2 #### The performing lab is in the report. MCV (RBC) [Entitic vol] 88.8 fL Normal 80.0-98.0 [facility] Comment on above: Performed By: #### H OMCY, FOLT3, HEMDF, BMP3M #### [facility] [address] [place] [address] #### MMA2 #### The performing lab is in the report. Platelet mean volume (Bld) [Entitic vol] 8.2 fL Normal 7.4-10.4 [facility] Comment on above: Performed By: #### H OMCY, FOLT3, HEMDF, BMP3M #### [facility] [address] [place] [address] #### MMA2 #### The performing lab is in the report. Platelets (Bld) [#/Vol] 186 10*3/uL Normal 140-440 [facility] Comment on above: Performed By: #### H OMCY, FOLT3, HEMDF, BMP3M #### [facility] [address] [place] [address] #### MMA2 #### The performing lab is in the report. RBC (Bld) [#/Vol] 4.18 10*6/uL Low 4.40-5.90 [facility] Comment on above: Performed By: #### H OMCY, FOLT3, HEMDF, BMP3M #### [facility] [address] [place] [address] #### MMA2 #### The performing lab is in the report. WBC (Bld) [#/Vol] 4.9 10*3/uL Normal 3.6-10.7 [facility] Comment on above: Performed By: #### H OMCY, FOLT3, HEMDF, BMP3M #### [facility] [address] [place] [address] #### MMA2 #### The performing lab is in the report. Procalcitoninon 04-08-2021 Procalcitonin 0.03 ng/mL Normal 0.00-0.09 [facility] Comment on above: Performed By: #### H OMCY, FOLT3, HEMDF, BMP3M #### [facility] [address] [place] [address] #### MMA2 #### The performing lab is in the report. Interpretation See Below Normal [facility] Comment on above: Result Comment: PCT <0.50 = Low risk of severe sepsis and/or septic shock. PCT >2.00 = High risk of severe sepsis and/or septic shock. Performed By: #### H OMCY, FOLT3, HEMDF, BMP3M #### [facility] [address] [place] [address] #### MMA2 #### The performing lab is [...] of this assay have been determined by [employer] in accordance with CLIA regulations. The modifications [...] of this assay have been determined by [employer] in accordance with CLIA regulations. The modifications have not been cleared or approved by the U. S. Food and Drug Administration; however, the FDA has determined that such clearance or approval is not necessary. Normal [facility] Comment on above: Performed By: #### H BURKE BMP3M #### [facility] [address] [place] [address] C-Reactive Proteinon CRP [Mass/Vol] 16.2 mg/L High 0.0-9.9 [facility] Comment on above: Order Comment: Sligh t Hemolysis. Result Comment: . Performed By: #### C MP3, CRP2, HEMOG ####[facility] [place] [address] Comp Metabolic Panelon 04-07 ALT [Catalytic activity/Vol] 13 U/L Normal 0-49 [facility] Comment on above: Order Comment: Sligh t Hemolysis. Result Comment: The ALT test is performed by an updated assay method. Please note that the reference intervals have been changed and are now sex specific. Performed By: #### H BURKE BMP3M #### [facility] [address] [place] [address] Calcium [Mass/Vol] 8.2 mg/dL Low 8.4-10.4 [facility] Comment on above: Order Comment: Sligh t Hemolysis. Performed By: #### H BURKE BMP3M #### [facility] [address] [place] [address] Glucose [Mass/Vol] 154 mg/dL High 70-100 [facility] Comment on above: Order Comment: Sligh t Hemolysis. Performed By: #### H BURKE BMP3M #### [facility] [address] [place] [address] Urea nitrogen [Mass/Vol] 20 mg/dL High 7-17 [facility] Comment on above: Order Comment: Sligh t Hemolysis. Performed By: #### H BURKE BMP3M #### [facility] [address] [place] [address] ALP [Catalytic activity/Vol] 59 U/L Normal 38-126 [facility] Comment on above: Order Comment: Sligh t Hemolysis. Performed By: #### H BURKE BMP3M #### [facility] [address] [place] [address] Anion gap [Moles/Vol] 5 mmol/L Normal 3-13 [facility] Comment on above: Order Comment: Sligh t Hemolysis. Performed By: #### H EMDF, BMP3M #### [facility] [address] [place] [address] AST [Catalytic activity/Vol] 19 U/L Normal 15-46 [facility] Comment on above: Order Comment: Sligh t Hemolysis. Performed By: #### H EMDF, BMP3M #### [facility] [address] [place] [address] Bilirubin [Mass/Vol] 0.5 mg/dL Normal 0.2-1.3 [facility] Comment on above: Order Comment: Sligh t Hemolysis. Performed By: #### H EMDF, BMP3M #### [facility] [address] [place] [address] CO2 [Moles/Vol] 26 mmol/L Normal 22-30 [facility] Comment on above: Order Comment: Sligh t Hemolysis. Performed By: #### H EMDF, BMP3M #### [facility] [address] [place] [address] Creatinine [Mass/Vol] 0.77 mg/dL Normal 0.52-1.25 [facility] Comment on above: Order Comment: Sligh t Hemolysis. Performed By: #### H EMDF, BMP3M #### [facility] [address] [place] [address] eGFR OTHER > 90.0 Normal >60 [facility] Comment on above: Order Comment: Sligh [...] secretion. Performed By: #### LEELEE TELLO3M #### [facility] [address] [place] [address] GFR/1.73 sq M.predicted among blacks MDRD (S/P/Bld) [Vol rate/Area] mL/min/{1.73_m2} Normal >60 [facility] Comment on above: Order Comment: Sligh t Hemolysis. Performed By: #### Aaliyah TURK BMP3M #### [facility] [address] [place] [address] Protein [Mass/Vol] 6.0 g/dL Low 6.3-8.2 [facility] Comment on above: Order Comment: Sligh t Hemolysis. Performed By: #### Aaliyah TURK BMP3M #### [facility] [address] [place] [address] Potassium [Moles/Vol] 4.0 mmol/L Normal 3.5-5.1 [facility] Comment on above: Order Comment: Sligh t Hemolysis. Performed By: #### Aaliyah TURK BMP3M #### [facility] [address] [place] [address] Albumin [Mass/Vol] 3.3 g/dL Low 3.5-5.0 [facility] Comment on above: Order Comment: Sligh t Hemolysis. Performed By: #### Aaliyah TURK BMP3M #### [facility] [address] [place] [address] Chloride [Moles/Vol] 101 mmol/L Normal 98-107 [facility] Comment on above: Order Comment: Sligh t Hemolysis. Performed By: #### Aaliyah TURK BMP3M #### [facility] [address] [place] [address] Sodium [Moles/Vol] 132 mmol/L Low 135-145 [facility] Comment on above: Order Comment: Sligh t Hemolysis. Performed By: #### H AMBERF, BMP3M #### [facility] [address] [place] [address] Hemogramon 04-07-2021 Erythrocyte distribution width (RBC) [Ratio] 15.5 % High 11.5-14.5 [facility] Comment on above: Performed By: #### C MP3, CRP2, HEMOG ####[facility] [facility] [address] Hematocrit (Bld) [Volume fraction] 35.8 % Low 40.0-52.0 [facility] Comment on above: Performed By: #### C MP3, CRP2, HEMOG ####[address] [place] [address] Hemoglobin (Bld) [Mass/Vol] 11.7 g/dL Low 13.0-18.0 [facility] Comment on above: Performed By: #### C MP3, CRP2, HEMOG ####[address] [place] [address] MCH (RBC) [Entitic mass] 29.3 pg Normal 26.0-34.0 [facility] Comment on above: Performed By: #### C MP3, CRP2, HEMOG ####[address] [place] [address] MCHC 32.8 % Normal 32.0-36.0 [facility] Comment on above: Performed By: #### C MP3, CRP2, HEMOG ####[address] [place] [address] MCV (RBC) [Entitic vol] 89.4 fL Normal 80.0-98.0 [facility] Comment on above: Performed By: #### C MP3, CRP2, HEMOG ####[address] [place] [address] Platelet mean volume (Bld) [Entitic vol] 8.8 fL Normal 7.4-10.4 [facility] Comment on above: Performed By: #### C MP3, CRP2, HEMOG ####[address] [facility] [place] [address] Platelets (Bld) [#/Vol] 166 10*3/uL Normal 140-440 [facility] Comment on above: Performed By: #### C MP3, CRP2, HEMOG ####[facility] [place] [address] RBC (Bld) [#/Vol] 4.00 10*6/uL Low 4.40-5.90 [facility] Comment on above: Performed By: #### C MP3, CRP2, HEMOG ####[facility] [place] [address] WBC (Bld) [#/Vol] 5.5 10*3/uL Normal 3.6-10.7 [facility] Comment on above: Performed By: #### C MP3, CRP2, HEMOG ####[facility] [place] [address] STAIN GRAMon 04-07-2021 STAIN GRAM STAIN GRAM [...] positive bacilli. Rare gram negative diplococci. Normal [facility] Comment on above: Performed By: #### H EMDF, BMP3M #### [facility] [address] [place] [address] C-Reactive Proteinon 022 CRP [Mass/Vol] 33.5 mg/L High 0.0-9.9 [facility] Comment on above: Result Comment: . Performed By: #### H OMCY, FOLT3, HEMDF, BMP3M #### [facility] [address] [place] [address] #### MMA2 #### The performing lab is in the report. Comp Metabolic Panelon 04-06 Calcium [Mass/Vol] 8.4 mg/dL Normal 8.4-10.4 [facility] Comment on above: Performed By: #### H OMCY, FOLT3, HEMDF, BMP3M #### [facility] [address] [place] [address] #### MMA2 #### The performing lab is in the report. Glucose [Mass/Vol] 143 mg/dL High 70-100 [facility] Comment on above: Performed By: #### H OMCY, FOLT3, HEMDF, BMP3M #### [facility] [address] [place] [address] #### MMA2 #### The performing lab is in the report. ALP [Catalytic activity/Vol] 64 U/L Normal 38-126 [facility] Comment on above: Performed By: #### H OMCY, FOLT3, HEMDF, BMP3M #### [facility] [address] [place] [address] #### MMA2 #### The performing lab is in the report. ALT [Catalytic activity/Vol] 14 U/L Normal 0-49 [facility] Comment on above: Result Comment: The ALT test is performed by an updated assay method. Please note that the reference intervals have been changed and are now sex specific. Performed By: #### H OMCY, FOLT3, HEMDF, BMP3M #### [facility] [address] [place] [address] #### MMA2 #### The performing lab is in the report. Anion gap [Moles/Vol] 5 mmol/L Normal 3-13 [facility] Comment on above: Performed By: #### H OMCY, FOLT3, HEMDF, BMP3M #### [facility] [address] [place] [address] #### MMA2 #### The performing lab is in the report. AST [Catalytic activity/Vol] 22 U/L Normal 15-46 [facility] Comment on above: Performed By: #### H OMCY, FOLT3, HEMDF, BMP3M #### [facility] [address] [place] [address] #### MMA2 #### The performing lab is in the report. Bilirubin [Mass/Vol] 0.4 mg/dL Normal 0.2-1.3 [facility] Comment on above: Performed By: #### H OMCY, FOLT3, HEMDF, BMP3M #### [facility] [address] [place] [address] #### MMA2 #### The performing lab is in the report. CO2 [Moles/Vol] 26 mmol/L Normal 22-30 [facility] Comment on above: Performed By: #### H OMCY, FOLT3, HEMDF, BMP3M #### [facility] [address] [place] [address] #### MMA2 #### The performing lab is in the report. Protein [Mass/Vol] 6.3 g/dL Normal 6.3-8.2 [facility] Comment on above: Performed By: #### H OMCY, FOLT3, HEMDF, BMP3M #### [place] [address] [place] [address] #### MMA2 #### The performing lab is in the report. Urea nitrogen [Mass/Vol] 14 mg/dL Normal 7-17 [facility] Comment on above: Performed By: #### H OMCY, FOLT3, HEMDF, BMP3M #### [place] [address] [place] [address] #### MMA2 #### The performing lab is in the report. Creatinine [Mass/Vol] 0.64 mg/dL Normal 0.52-1.25 [facility] Comment on above: Performed By: #### H OMCY, FOLT3, HEMDF, BMP3M #### [facility] [address] [place] [address] #### MMA2 #### The performing lab is in the report. eGFR OTHER > 90.0 Normal >60 [facility] Comment on above: Result Comment: KDIG O [...] #### H OMCY, FOLT3, HEMDF, BMP3M #### [facility] [address] [place] [address] #### MMA2 #### The performing lab is in the report. GFR/1.73 sq M.predicted among blacks MDRD (S/P/Bld) [Vol rate/Area] mL/min/{1.73_m2} Normal >60 [facility] Comment on above: Performed By: #### H OMCY, FOLT3, HEMDF, BMP3M #### [facility] [address] [place] [address] #### MMA2 #### The performing lab is in the report. Potassium [Moles/Vol] 4.1 mmol/L Normal 3.5-5.1 [facility] Comment on above: Performed By: #### H OMCY, FOLT3, HEMDF, BMP3M #### [facility] [address] [place] [address] #### MMA2 #### The performing lab is in the report. Albumin [Mass/Vol] 3.5 g/dL Normal 3.5-5.0 [facility] Comment on above: Performed By: #### H OMCY, FOLT3, HEMDF, BMP3M #### [facility] [address] [place] [address] #### MMA2 #### The performing lab is in the report. Chloride [Moles/Vol] 101 mmol/L Normal 98-107 [facility] Comment on above: Performed By: #### H OMCY, FOLT3, HEMDF, BMP3M #### [facility] [address] [place] [address] #### MMA2 #### The performing lab is in the report. Sodium [Moles/Vol] 131 mmol/L Low 135-145 [facility] Comment on above: Performed By: #### H OMCY, FOLT3, HEMDF, BMP3M #### [facility] [address] [place] [address] #### MMA2 #### The performing lab is in the report. D-Dimer, Innovanceon 022 D-Dimer, Innovance 0.49 mg/L Normal <0.19-0.50 [facility] Comment on above: Result Comment: Inno jeter D-Dimer values of <0.50 mg/L FEU can be used in combination with a pre-test probability model (e.g. Well's) to exclude pulmonary embolism (PE) disease, as well as an aid in the diagnosis of deep vein thrombosis (DVT). Performed By: #### H OMCY, FOLT3, HEMDF, BMP3M #### [address] [place] [address] #### MMA2 #### The performing lab is in the report. Hemogramon 04-06-2021 Erythrocyte distribution width (RBC) [Ratio] 15.3 % High 11.5-14.5 [facility] Comment on above: Performed By: #### H OMCY, FOLT3, HEMDF, BMP3M #### [address] [place] [address] #### MMA2 #### The performing lab is in the report. Hematocrit (Bld) [Volume fraction] 36.2 % Low 40.0-52.0 [facility] Comment on above: Performed By: #### H OMCY, FOLT3, HEMDF, BMP3M #### [facility] [address] [place] [address] #### MMA2 #### The performing lab is in the report. Hemoglobin (Bld) [Mass/Vol] 12.2 g/dL Low 13.0-18.0 [facility] Comment on above: Performed By: #### H OMCY, FOLT3, HEMDF, BMP3M #### [address] [place] [address] #### MMA2 #### The performing lab is in the report. MCH (RBC) [Entitic mass] 29.9 pg Normal 26.0-34.0 [facility] Comment on above: Performed By: #### H OMCY, FOLT3, HEMDF, BMP3M #### [facility] [address] [place] [address] #### MMA2 #### The performing lab is in the report. MCHC 33.7 % Normal 32.0-36.0 [facility] Comment on above: Performed By: #### H OMCY, FOLT3, HEMDF, BMP3M #### [facility] [address] [facility] [place] [place] [address] #### MMA2 #### The performing lab is in the report. MCV (RBC) [Entitic vol] 88.6 fL Normal 80.0-98.0 [facility] Comment on above: Performed By: #### H OMCY, FOLT3, HEMDF, BMP3M #### [place] [address] [place] [address] #### MMA2 #### The performing lab is in the report. Platelet mean volume (Bld) [Entitic vol] 8.8 fL Normal 7.4-10.4 [facility] Comment on above: Performed By: #### H OMCY, FOLT3, HEMDF, BMP3M #### [facility] [address] [place] [address] #### MMA2 #### The performing lab is in the report. Platelets (Bld) [#/Vol] 113 10*3/uL Low 140-440 [facility] Comment on above: Performed By: #### H OMCY, FOLT3, HEMDF, BMP3M #### [facility] [address] [place] [address] #### MMA2 #### The performing lab is in the report. RBC (Bld) [#/Vol] 4.09 10*6/uL Low 4.40-5.90 [facility] Comment on above: Performed By: #### H OMCY, FOLT3, HEMDF, BMP3M #### [facility] [address] [place] [address] #### MMA2 #### The performing lab is in the report. WBC (Bld) [#/Vol] 3.5 10*3/uL Low 3.6-10.7 [facility] Comment on above: Performed By: #### H OMCY, FOLT3, HEMDF, BMP3M #### [facility] [address] [place] [address] #### MMA2 #### The performing lab is in the report. C-Reactive Proteinon CRP [Mass/Vol] 58.5 mg/L High 0.0-9.9 [facility] Comment on above: Result Comment: . Performed By: #### H OMCY, FOLT3, HEMDF, BMP3M #### [facility] [address] [place] [address] #### MMA2 #### The performing lab is in the report. D-Dimer, Innovanceon D-Dimer, Innovance 0.32 mg/L Normal <0.19-0.50 [facility] Comment on above: Result Comment: Inno jeter D-Dimer values of <0.50 mg/L FEU can be used in combination with a pre-test probability model (e.g. Well's) to exclude pulmonary embolism (PE) disease, as well as an aid in the diagnosis of deep vein thrombosis (DVT). Performed By: #### H OMCY, FOLT3, HEMDF, BMP3M #### [facility] [address] [place] [address] #### MMA2 #### The performing lab is in the report. Hemogram w/ Autodiffon 04-05 Abs Baso Cnt 0.0 10*3/uL Normal 0.0-0.2 [facility] Comment on above: Performed By: #### H OMCY, FOLT3, HEMDF, BMP3M #### [facility] [address] [place] [address] #### MMA2 #### The performing lab is in the report. Abs Neutrophile Cnt 3.2 10*3/uL Normal 1.8-7.0 [facility] Comment on above: Performed By: #### H OMCY, FOLT3, HEMDF, BMP3M #### [facility] [address] [place] [address] #### MMA2 #### The performing lab is in the report. Basophils/100 WBC (Bld) 0.2 % Normal 0.0-2.0 [facility] Comment on above: Performed By: #### H OMCY, FOLT3, HEMDF, BMP3M #### [facility] [address] [place] [address] #### MMA2 #### The performing lab is in the report. Eosinophils (Bld) [#/Vol] 0.0 10*3/uL Normal 0.0-0.5 [facility] Comment on above: Performed By: #### H OMCY, FOLT3, HEMDF, BMP3M #### [facility] [address] [place] [address] #### MMA2 #### The performing lab is in the report. Eosinophils/100 WBC (Bld) 0.0 % Low 1.0-6.0 [facility] Comment on above: Performed By: #### H OMCY, FOLT3, HEMDF, BMP3M #### [facility] [address] [place] [address] #### MMA2 #### The performing lab is in the report. Erythrocyte distribution width (RBC) [Ratio] 15.5 % High 11.5-14.5 [facility] Comment on above: Performed By: #### H OMCY, FOLT3, HEMDF, BMP3M #### [facility] [address] [place] [address] #### MMA2 #### The performing lab is in the report. Granulocytes/100 WBC (Bld) 90.2 % High 40.0-80.0 [facility] Comment on above: Performed By: #### H OMCY, FOLT3, HEMDF, BMP3M #### [facility] [address] [place] [address] #### MMA2 #### The performing lab is in the report. Hematocrit (Bld) [Volume fraction] 40.1 % Normal 40.0-52.0 [facility] Comment on above: Performed By: #### H OMCY, FOLT3, HEMDF, BMP3M #### [facility] [address] [place] [address] #### MMA2 #### The performing lab is in the report. Hemoglobin (Bld) [Mass/Vol] 13.4 g/dL Normal 13.0-18.0 [facility] Comment on above: Performed By: #### H OMCY, FOLT3, HEMDF, BMP3M #### [facility] [address] [place] [address] #### MMA2 #### The performing lab is in the report. Lymphocytes (Bld) [#/Vol] 0.2 10*3/uL Low 1.0-4.3 [facility] Comment on above: Performed By: #### H OMCY, FOLT3, HEMDF, BMP3M #### [facility] [address] [place] [address] #### MMA2 #### The performing lab is in the report. Lymphocytes/100 WBC (Bld) 6.8 % Low 20.0-40.0 [facility] Comment on above: Performed By: #### H OMCY, FOLT3, HEMDF, BMP3M #### [facility] [address] [place] [address] #### MMA2 #### The performing lab is in the report. MCH (RBC) [Entitic mass] 29.6 pg Normal 26.0-34.0 [facility] Comment on above: Performed By: #### H OMCY, FOLT3, HEMDF, BMP3M #### [facility] [address] [place] [address] #### MMA2 #### The performing lab is in the report. MCHC 33.4 % Normal 32.0-36.0 [facility] Comment on above: Performed By: #### H OMCY, FOLT3, HEMDF, BMP3M #### [facility] [address] [place] [address] #### MMA2 #### The performing lab is in the report. MCV (RBC) [Entitic vol] 88.4 fL Normal 80.0-98.0 [facility] Comment on above: Performed By: #### H OMCY, FOLT3, HEMDF, BMP3M #### [facility] [address] [place] [address] #### MMA2 #### The performing lab is in the report. Monocytes (Bld) [#/Vol] 0.1 10*3/uL Normal 0.0-0.8 [facility] Comment on above: Performed By: #### H OMCY, FOLT3, HEMDF, BMP3M #### [facility] [address] [place] [address] #### MMA2 #### The performing lab is in the report. Monocytes/100 WBC (Bld) 2.8 % Normal 2.0-10.0 [facility] Comment on above: Performed By: #### H OMCY, FOLT3, HEMDF, BMP3M #### [facility] [address] [place] [address] #### MMA2 #### The performing lab is in the report. Platelet mean volume (Bld) [Entitic vol] 8.6 fL Normal 7.4-10.4 [facility] Comment on above: Performed By: #### H OMCY, FOLT3, HEMDF, BMP3M #### [facility] [address] [place] [address] #### MMA2 #### The performing lab is in the report. Platelets (Bld) [#/Vol] 119 10*3/uL Low 140-440 [facility] Comment on above: Performed By: #### H OMCY, FOLT3, HEMDF, BMP3M #### [facility] [address] [place] [address] #### MMA2 #### The performing lab is in the report. RBC (Bld) [#/Vol] 4.54 10*6/uL Normal 4.40-5.90 [facility] Comment on above: Performed By: #### H OMCY, FOLT3, HEMDF, BMP3M #### [facility] [address] [place] [address] #### MMA2 #### The performing lab is in the report. WBC (Bld) [#/Vol] 3.6 10*3/uL Normal 3.6-10.7 [facility] Comment on above: Performed By: #### H OMCY, FOLT3, HEMDF, BMP3M #### [facility] [address] [place] [address] #### MMA2 #### The performing lab is in the report. Procalcitoninon 04-05-2021 Procalcitonin 0.06 ng/mL Normal 0.00-0.09 [facility] Comment on above: Performed By: #### H OMCY, FOLT3, HEMDF, BMP3M #### [facility] [address] [place] [address] #### MMA2 #### The performing lab is in the report. Interpretation See Below Normal [facility] Comment on above: Result Comment: PCT <0.50 = Low risk of severe sepsis and/or septic shock. PCT >2.00 = High risk of severe sepsis and/or septic shock. Performed By: #### H OMCY, FOLT3, HEMDF, BMP3M #### [facility] [address] [place] [address] #### MMA2 #### The performing lab is in the report. Troponin Ion 04-05-2021 Troponin I.cardiac [Mass/Vol] ng/mL Normal 0.000-0.034 [facility] Comment on above: Result Comment: . Performed By: #### H OMCY, FOLT3, HEMDF, BMP3M #### [facility] [address] [place] [address] #### MMA2 #### The performing lab is in the report. Vit D 25-OH, Totalon 01-23-2 022 Vit D 25-OH, Total 16 ng/mL Low 30-100 [facility] Comment on above: Result Comment: Ther apy is based on measurement of Total 25- OHD with the following classification levels: Less than 20 ng/mL: Indicative of Vit D deficiency 20-30 ng/mL: Suggests Vit D insufficiency Optimal: Greater than or equal to 30 ng/mL Test performed by [employer] Immunoassay, measuring Total Vitamin D, not individual fractions. Performed By: #### H OMCY, FOLT3, HEMDF, BMP3M #### [facility] [address] [place] [address] #### MMA2 #### The performing lab is in the report. Basic Metabolic Panelon 03-15 Anion gap [Moles/Vol] 7 mmol/L Normal 3-13 [facility] Comment on above: Performed By: #### H EMDF, BMP3M #### [facility] [address] [place] [address] Calcium [Mass/Vol] 8.5 mg/dL Normal 8.4-10.4 [facility] Comment on above: Performed By: #### H EMDF, BMP3M #### [facility] [address] [place] [address] CO2 [Moles/Vol] 29 mmol/L Normal 22-30 [facility] Comment on above: Performed By: #### H EMDF, BMP3M #### [facility] [address] [place] [address] Glucose [Mass/Vol] 97 mg/dL Normal 70-100 [facility] Comment on above: Performed By: #### H EMDF, BMP3M #### [facility] [address] [place] [address] Urea nitrogen [Mass/Vol] 15 mg/dL Normal 7-17 [facility] Comment on above: Performed By: #### H EMDF, BMP3M #### [facility] [address] [place] [address] Creatinine [Mass/Vol] 0.82 mg/dL Normal 0.52-1.25 [facility] Comment on above: Performed By: #### H EMDF, BMP3M #### [facility] [address] [place] [address] eGFR OTHER > 90.0 Normal >60 [facility] Comment on above: Result Comment: KDIG O [...] Performed By: #### H LEELEE TURK3M #### [facility] [address] [place] [address] GFR/1.73 sq M.predicted among blacks MDRD (S/P/Bld) [Vol rate/Area] mL/min/{1.73_m2} Normal >60 [facility] Comment on above: Performed By: #### H BURKE BMP3M #### [facility] [address] [place] [address] Chloride [Moles/Vol] 96 mmol/L Low 98-107 [facility] Comment on above: Performed By: #### H BURKE BMP3M #### [facility] [address] [place] [address] Potassium [Moles/Vol] 3.5 mmol/L Normal 3.5-5.1 [facility] Comment on above: Performed By: #### H BURKE BMP3M #### [facility] [address] [place] [address] Sodium [Moles/Vol] 132 mmol/L Low 135-145 [facility] Comment on above: Performed By: #### H BURKE BMP3M #### [facility] [address] [place] [address] CR Chest Portableon 04-04-19 CR Chest Portable Patient Name: LUIS STEELE Diagnostic Radiology ACCESSION EXAM DATE/TIME PROCEDURE ORDERING PROVIDER [id number] 04/04/2021 20:27 EST CR Chest Portable [id number] SELENA RAINEY CPT code 80286 Reason For Exam (CR Chest Portable) Dyspnea [...] Transcribed Date and Time: 04/04/2021 8:36 Normal [facility] ED [facility] : 1970 Date of Evaluation: 04/04/2021 ED TAM Provider: KARSTEN Bowens CNP EDcare was supervised by Dr. Chandra who independently examined and evaluated the patient. Please see their attestation note for further details. Chief Complaint Chief Complaint Patient presents with ? Shortness of Breath COCOPAH I was wearing appropriate PPE during entire [...] otherwise acutely negative except as in the COCOPAH. Past History Past Medical History: Diagnosis Date [...] and Family: Not on file ? Attends [employer] Services: Not on file ? Active Member [...] A by (more content not included)... Normal [facility] ED Provider Note Patient, Luis Steele, is [...] provider's documentation. Michael Chandra MD 04/04/212219 Normal [facility] Hemogram w/ Autodiffon 04-04 Abs Baso Cnt 0.1 10*3/uL Normal 0.0-0.2 [facility] Comment on above: Performed By: #### H EMDJamee BMP3M #### [facility] [address] [place] [address] Abs Neutrophile Cnt 2.7 10*3/uL Normal 1.8-7.0 [facility] Comment on above: Performed By: #### H BURKE BMP3M #### [facility] [address] [place] [address] Basophils/100 WBC (Bld) 1.7 % Normal 0.0-2.0 [facility] Comment on above: Performed By: #### H EMDJamee BMP3M #### [facility] [address] [place] [address] Eosinophils (Bld) [#/Vol] 0.0 10*3/uL Normal 0.0-0.5 [facility] Comment on above: Performed By: #### H EMDJamee BMP3M #### [facility] [address] [place] [address] Eosinophils/100 WBC (Bld) 0.2 % Low 1.0-6.0 [facility] Comment on above: Performed By: #### H EMDJamee BMP3M #### [facility] [address] [place] [address] Erythrocyte distribution width (RBC) [Ratio] 15.5 % High 11.5-14.5 [facility] Comment on above: Performed By: #### H BURKE BMP3M #### [facility] [address] [place] [address] Granulocytes/100 WBC (Bld) 66.0 % Normal 40.0-80.0 [facility] Comment on above: Performed By: #### H BURKE BMP3M #### [facility] [address] [place] [address] Hematocrit (Bld) [Volume fraction] 41.3 % Normal 40.0-52.0 [facility] Comment on above: Performed By: #### H BURKE BMP3M #### [facility] [address] [place] [address] Hemoglobin (Bld) [Mass/Vol] 13.5 g/dL Normal 13.0-18.0 [facility] Comment on above: Performed By: #### H EMDF BMP3M #### [facility] [address] [place] [address] Lymphocytes (Bld) [#/Vol] 0.9 10*3/uL Low 1.0-4.3 [facility] Comment on above: Performed By: #### H EMDF BMP3M #### [facility] [address] [place] [address] Lymphocytes/100 WBC (Bld) 21.2 % Normal 20.0-40.0 [facility] Comment on above: Performed By: #### H EMDF BMP3M #### [facility] [address] [place] [address] MCH (RBC) [Entitic mass] 28.8 pg Normal 26.0-34.0 [facility] Comment on above: Performed By: #### H BURKE BMP3M #### [facility] [address] [place] [address] MCHC 32.6 % Normal 32.0-36.0 [facility] Comment on above: Performed By: #### H EMDJamee BMP3M #### [facility] [address] [place] [address] MCV (RBC) [Entitic vol] 88.4 fL Normal 80.0-98.0 [facility] Comment on above: Performed By: #### H BURKE BMP3M #### [facility] [address] [place] [address] Monocytes (Bld) [#/Vol] 0.4 10*3/uL Normal 0.0-0.8 [facility] Comment on above: Performed By: #### H BURKE BMP3M #### [facility] [address] [place] [address] Monocytes/100 WBC (Bld) 10.9 % High 2.0-10.0 [facility] Comment on above: Performed By: #### H EMDJamee BMP3M #### [facility] [address] [place] [address] Platelet mean volume (Bld) [Entitic vol] 9.2 fL Normal 7.4-10.4 [facility] Comment on above: Performed By: #### H EMDF BMP3M #### [facility] [address] [place] [address] Platelets (Bld) [#/Vol] 143 10*3/uL Normal 140-440 [facility] Comment on above: Performed By: #### H EMDF BMP3M #### [facility] [address] [place] [address] RBC (Bld) [#/Vol] 4.67 10*6/uL Normal 4.40-5.90 [facility] Comment on above: Performed By: #### H EMDF BMP3M #### [facility] [address] [place] [address] WBC (Bld) [#/Vol] 4.1 10*3/uL Normal 3.6-10.7 [facility] Comment on above: Performed By: #### H BURKE BMP3M #### [facility] [address] [place] [address] Lactic Acidon 04-04-2021 Lactate [Moles/Vol] 1.1 mmol/L Normal 0.7-2.0 [facility] Comment on above: Performed By: #### H BURKE BMP3M #### [facility] [address] [place] [address] SARS-CoV-2, Flu A/B and RSVo n 04-04-2021 SARS-CoV-2 (COVID-19) RNA DESTINY+probe Ql (Unsp spec) SARS-CoV-2 --> Status: F DETECTED Flu A PCR --> Status: F Not Detected. Flu B PCR --> Status: F Not Detected. RSV PCR --> Status: F Not Detected. Expected Result: Not Detected _ Method: Real-time, RT-PCR This assay was developed by [employer] and distributed under an Emergency Use Authorization (EUA) granted by the FDA for the qualitative detection of nucleic acids from SARS-CoV-2, Influenza A, Influenza B, and Respiratory Syncytial Virus. Provider and patient fact sheets can be found at https://www.fda.gov/me halle/370249/download and https://www.fda.gov/ia halle/290900/download. Expected Result: Not Detected _ Method: Real-time, RT-PCR This assay was developed by [employer] and distributed under an Emergency Use Authorization (EUA) granted by the FDA for the qualitative detection of nucleic acids from SARS-CoV-2, Influenza A, Influenza B, and Respiratory Syncytial Virus. Provider and patient fact sheets can be found at https://www.fda.gov/me halle/752836/download and https://www.fda.gov/ia halle/768410/download. Normal [facility] Comment on above: Performed By: #### H BURKE BMP3M #### [facility] [address] [place] [address] Troponin Ion 04-04-2021 Troponin I.cardiac [Mass/Vol] ng/mL Normal 0.000-0.034 [facility] Comment on above: Result Comment: . Performed By: #### H LEELEE TURK3Marga #### [facility] [address] [place] [address] XR Chest PA and Lateralon IMPRESSION: Hyperinflation of lungs. Blunting of the costophrenic angles related to pleural fluid or pleural thickening. Solutions Specialist: MATEO Transcribe Date/Time: Sep 05 2020 10:56A Dictated by : SUE IRCO MD This examination was interpreted and the report reviewed and electronically signed by: SUE RICO MD on Sep 05 2020 11:05AM [facility] DIVISION OF RADIOLOGY * * *Final [...] soft tissues: Unremarkable. DIVISION OF RADIOLOGY Provider, [facility] - 09/05/2020 * * *Final Report* * [...] related to pleural fluid or pleural thickening. Solutions Specialist: PSCB Transcribe Date/Time: Sep 05 2020 10:56A Dictated by : SUE RICO MD This examination was interpreted and the report reviewed and electronically signed by: SUE RICO MD on Sep 05 2020 11:05AM EST [facility] Radiology Study observation (narrative) [facility] XR Chest PA and LateralOrder ed By: Ccf Provider on 09-05-2020 [facility] No Panel Information Influenza Types A,B Direct FA ([facility]) [facility] Work Phone: Vital Signs Date Time Vital Sign Value Performing Clinician Faci lity 07-31-2024 14:31-0400 Body height 177.8 cm [employer] Work Phone: [facility] 07-31-2024 14:31-0400 Body mass index (BMI) [Ratio] 24.11 kg/m2 Antwan Buchanan DO Work Phone: [facility] 07-31-2024 14:31-0400 Body temperature 98.01 [degF] Antwan Buchanan DO Work Phone: [facility] 07-31-2024 14:31-0400 Body weight 76.2 kg Antwan Buchanan DO Work Phone: [facility] 07-31-2024 14:31-0400 Diastolic blood pressure 84 mm[Hg] Antwan Buchanan DO Work Phone: [facility] 07-31-2024 14:31-0400 Heart rate 64 /min Antwan Buchanan DO Work Phone: [facility] 07-31-2024 14:31-0400 Respiratory rate 24 /min Antwan Buchanan DO Work Phone: [facility] 07-31-2024 14:31-0400 Systolic blood pressure 120 mm[Hg] Antwan Buchanan DO Work Phone: [facility] 04-06-2024 14:27-0500 Body mass index (BMI) [Ratio] 24.63 kg/m2 Pulm [facility]str Work Phone: [facility] 04-06-2024 14:27-0500 Body weight 73.48 kg Pulm Wstr Work Phone: [facility] 04-29-2023 14:12-0500 Body mass index (BMI) [Ratio] 22.1 kg/m2 [facility] 04-29-2023 14:10-0500 Body height 177.8 cm [facility] 04-29-2023 14:10-0500 Body weight 69.85 kg [facility] 04-29-2023 13:26-0500 Diastolic blood pressure 86 mm[Hg] [facility] 04-29-2023 13:26-0500 Heart rate 109 /min [facility] 04-29-2023 13:26-0500 SaO2% (BldA) [Mass fraction] 94 % [facility] 04-29-2023 13:26-0500 Systolic blood pressure 120 mm[Hg] [facility] 02-18-2023 11:37-0500 Body temperature 99.3 [degF] Antwan Buchanan DO Work Phone: [facility] 02-18-2023 11:37-0500 Body weight 74.39 kg Antwan Buchanan DO Work Phone: [facility] 02-18-2023 11:37-0500 Diastolic blood pressure 80 mm[Hg] Antwan Buchanan DO Work Phone: [facility] 02-18-2023 11:37-0500 Heart rate 80 /min Antwan Buchanan DO Work Phone: [facility] 02-18-2023 11:37-0500 Respiratory rate 20 /min Antwan Buchanan DO Work Phone: [facility] 02-18-2023 11:37-0500 Systolic blood pressure 146 mm[Hg] Antwan Buchanan DO Work Phone: [facility] 02-08-2023 13:22-0500 Heart rate 106 /min Ramon Cunha MD Work Phone: [facility] 02-08-2023 13:22-0500 Respiratory rate 20 /min Ramon Cunha MD Work Phone: [facility] [employer] 02-08-2023 13:22-0500 SaO2% (BldA) [Mass fraction] 94 % Ramon Cunha MD Work Phone: [facility] [employer] 02-08-2023 09:34-0500 Body temperature 97.39 [degF] Ramon Cunha MD Work Phone: [facility] [employer] 02-08-2023 07:49-0500 Diastolic blood pressure 83 mm[Hg] Ramon Cunha MD Work Phone: [facility] [employer] 02-08-2023 07:49-0500 Systolic blood pressure 123 mm[Hg] Ramon Cunha MD Work Phone: [facility] [employer] 02-08-2023 04:24-0500 Body mass index (BMI) [Ratio] 25.56 kg/m2 Ramon Cunha MD Work Phone: [facility] [employer] 02-08-2023 04:24-0500 Body weight 80.8 kg Ramon Cunha MD Work Phone: [facility] [employer] 02-04-2023 12:42-0500 Body height 177.8 cm Ramon Cunha MD Work Phone: [facility] [employer] 02-04-2023 00:45-0500 SaO2% (BldA) [Mass fraction] 93.0 % Ramon Cunha MD Work Phone: [facility] [employer] 02-03-2023 05:47-0500 SaO2% (BldA) [Mass fraction] 93.3 % Ramon Cunha MD Work Phone: [facility] [employer] 02-02-2023 03:40-0500 SaO2% (BldA) [Mass fraction] 91.2 % Ramon Cunha MD Work Phone: [facility] [employer] 02-01-2023 04:55-0500 SaO2% (BldA) [Mass fraction] 90.8 % Ramon Cunha MD Work Phone: [facility] 01-31-2023 14:17-0500 SaO2% (BldA) [Mass fraction] 91.9 % Ramon Cunha MD Work Phone: [facility] 01-31-2023 04:09-0500 SaO2% (BldA) [Mass fraction] 96.5 % Ramon Cunha MD Work Phone: [facility] 01-30-2023 18:58-0500 SaO2% (BldA) [Mass fraction] 95.6 % Ramon Cunha MD Work Phone: [facility] 01-30-2023 17:44-0500 SaO2% (BldA) [Mass fraction] 93.4 % Ramon Cunha MD Work Phone: [facility] 01-30-2023 08:18-0500 SaO2% (BldA) [Mass fraction] 98.3 % Ramon Cunha MD Work Phone: [facility] 01-30-2023 04:02-0500 SaO2% (BldA) [Mass fraction] 99.1 % Ramon Cunha MD Work Phone: [facility] [employer] 01-29-2023 21:30-0500 SaO2% (BldA) [Mass fraction] 97.5 % Ramon Cunha MD Work Phone: [facility] [employer] 01-28-2023 04:15-0500 SaO2% (BldA) [Mass fraction] 77.8 % Ramon Cunha MD Work Phone: [facility] [employer] 12-04-2022 04:05-0400 Diastolic blood pressure 81 mm[Hg] Kelton Enrique MD Work Phone: [facility] [employer] 12-04-2022 04:05-0400 Heart rate 97 /min Kelton Enrique MD Work Phone: [facility] [employer] 12-04-2022 04:05-0400 Respiratory rate 20 /min Kelton Enrique MD Work Phone: [facility] [employer] 12-04-2022 04:05-0400 SaO2% (BldA) [Mass fraction] 98 % Kelton Enrique MD Work Phone: [facility] [employer] 12-04-2022 04:05-0400 Systolic blood pressure 127 mm[Hg] Kelton Enrique MD Work Phone: [facility] [employer] 12-04-2022 02:34-0400 Body temperature 98.1 [degF] Kelton Enrique MD Work Phone: [facility] [employer] 11-27-2022 21:12-0400 Diastolic blood pressure 99 mm[Hg] Tony Gombash DO Work Phone: [facility] [employer] 11-27-2022 21:12-0400 Heart rate 109 /min Tony Gombash DO Work Phone: [facility] [employer] 11-27-2022 21:12-0400 Respiratory rate 20 /min Tony Gombash DO Work Phone: [facility] [employer] 11-27-2022 21:12-0400 SaO2% (BldA) [Mass fraction] 96 % Tony Gombash DO Work Phone: [facility] [employer] 11-27-2022 21:12-0400 Systolic blood pressure 127 mm[Hg] Tony Gombash DO Work Phone: [facility] [employer] 11-27-2022 20:14-0400 Body mass index (BMI) [Ratio] 23.72 kg/m2 Tony Gombash DO Work Phone: [facility] [employer] 11-27-2022 20:14-0400 Body temperature 98.1 [degF] Tony Gombash DO Work Phone: [facility] [employer] 11-27-2022 20:14-0400 Body weight 77.11 kg Tony Gombash DO Work Phone: [facility] 11-14-2022 16:51-0400 Inhaled oxygen flow rate 5 L/min Dr. Antwan Buchanan Work Phone: 3(871)509-925249 [place] [address] 11-14-2022 16:51-0400 SaO2% (BldA) [Mass fraction] 89 % Dr. Antwan Buchanan Work Phone: 4(936)468-430849 [place] [address] 11-14-2022 16:38-0400 Heart rate 77 /min Dr. Antwan Buchanan Work Phone: 4(731)002-644449 [place] [address] 11-14-2022 16:38-0400 Respiratory rate 18 /min Dr. Antwan Buchanan Work Phone: 2(220)580-157549 [place] [address] 11-14-2022 15:37-0400 Body temperature 98.1 [degF] Dr. Antwan Buchanan Work Phone: 5(869)387-774149 [place] [address] 11-14-2022 15:37-0400 Diastolic blood pressure 78 mm[Hg] Dr. Antwan Buchanan Work Phone: 6(552)324-913649 [place] [address] 11-14-2022 15:37-0400 Systolic blood pressure 121 mm[Hg] Dr. Antwan Buchanan Work Phone: 1(925)780-922549 [place] [address] 11-13-2022 06:42-0400 Body weight 77.[address] Antwan Buchanan Work Phone: 7(821)088-637949 [place] [address] 11-12-2022 18:51-0400 Body height 177.[address] Antwan Buchanan Work Phone: 0(620)571-513449 [place] [address] 11-12-2022 18:51-0400 Body mass index (BMI) [Ratio] 24.6 kg/m2 Dr. Antwan Buchanan Work Phone: 9(171)857-729349 [place] [address] 10-19-2022 19:48-0400 Heart rate 97 /min Dr. Antwan Buchanan Work Phone: 4(561)178-991849 [place] [address] 10-19-2022 19:48-0400 Respiratory rate 20 /min Dr. Antwan Buchanan Work Phone: 2(317)740-720849 [place] [address] 10-19-2022 19:48-0400 SaO2% (BldA) [Mass fraction] 96 % Dr. Antwan Buchanan Work Phone: 4(218)546-377849 [place] [address] 10-19-2022 19:30-0400 Diastolic blood pressure 93 mm[Hg] Dr. Antwan Buchanan Work Phone: 3(273)320-876849 [place] [address] 10-19-2022 19:30-0400 Systolic blood pressure 133 mm[Hg] Dr. Antwan Buchanan Work Phone: 2(135)689-232949 [place] [address] 10-19-2022 18:26-0400 Inhaled oxygen flow rate 3 L/min Dr. Antwan Buchanan Work Phone: 7(030)058-173749 [place] [address] 10-19-2022 16:27-0400 Body mass index (BMI) [Ratio] 24.2 kg/m2 Dr. Antwan Buchanan Work Phone: 7(823)929-876749 [place] [address] 10-19-2022 16:27-0400 Body temperature 97.2 [degF] Dr. Antwan Buchanan Work Phone: 1(242)944-568749 [place] [address] 10-19-2022 16:27-0400 Body weight 76.[address] Antwan Buchanan Work Phone: 0(768)076-173649 [place] [address] 09-06-2022 15:34-0400 Body temperature 97.81 [degF] Antwan Buchanan DO Work Phone: 0(354)073-100748 [place] [address] 09-06-2022 15:34-0400 Body weight 73.03 kg Antwan Crenshawrison DO Work Phone: 3(052)273-083748 [place] [address] 09-06-2022 15:34-0400 Diastolic blood pressure 84 mm[Hg] Antwan Crenshawrison DO Work Phone: 6(495)553-703448 [place] [address] 09-06-2022 15:34-0400 Heart rate 92 /min Antwan Buchanan DO Work Phone: [facility] 09-06-2022 15:34-0400 Respiratory rate 24 /min Antwan Crenshawrison DO Work Phone: [facility] 09-06-2022 15:34-0400 Systolic blood pressure 154 mm[Hg] Antwan Buchanan DO Work Phone: [facility] 02-10-2022 16:02-0500 Diastolic blood pressure 92 mm[Hg] [facility] Work Phone: 02-10-2022 16:02-0500 Heart rate 93 /min [facility] Work Phone: 02-10-2022 16:02-0500 Respiratory rate 16 /min [facility] Work Phone: 02-10-2022 16:02-0500 SaO2% (BldA) [Mass fraction] 94 % [facility] Work Phone: 02-10-2022 16:02-0500 Systolic blood pressure 121 mm[Hg] [facility] Work Phone: 02-10-2022 13:13-0500 Body temperature 98.4 [degF] [facility] Work Phone: 02-10-2022 13:13-0500 Inhaled oxygen flow rate 2.5 L/min [facility] Work Phone: 02-10-2022 13:11-0500 Body height 177.8 cm [facility] Work Phone: 02-10-2022 13:11-0500 Body mass index (BMI) [Ratio] 22.6 kg/m2 [facility] Work Phone: 02-10-2022 13:11-0500 Body weight 71.4 kg [facility] Work Phone: 08-17-2021 15:55-0400 Body temperature 98.6 [degF] Dr. Antwan Buchanan Work Phone: [facility] Work Phone: 08-17-2021 15:55-0400 Diastolic blood pressure 82 mm[Hg] Dr. Antwan Buchanan Work Phone: [facility] Work Phone: 08-17-2021 15:55-0400 Heart rate 93 /min Dr. Antwan Buchanan Work Phone: [facility] Work Phone: 08-17-2021 15:55-0400 Respiratory rate 18 /min Dr. Antwan Buchanan Work Phone: [facility] Work Phone: 08-17-2021 15:55-0400 SaO2% (BldA) [Mass fraction] 99 % Dr. Antwan Buchanan Work Phone: [facility] Work Phone: 08-17-2021 15:55-0400 Systolic blood pressure 125 mm[Hg] Dr. Antwan Buchanan Work Phone: [facility] Work Phone: 08-17-2021 12:54-0400 Body height 177.[address] Antwan Buchanan Work Phone: [facility] Work Phone: 08-17-2021 12:54-0400 Body weight [address] Antwan Buchanan Work Phone: [facility] Work Phone: 08-15-2021 14:03-0400 Body temperature 97.9 [degF] [facility] Work Phone: 08-15-2021 14:03-0400 Diastolic blood pressure 85 mm[Hg] [facility] Work Phone: 08-15-2021 14:03-0400 Heart rate 107 /min [facility] Work Phone: 08-15-2021 14:03-0400 Respiratory rate 18 /min [facility] Work Phone: 08-15-2021 14:03-0400 SaO2% (BldA) [Mass fraction] 94 % [facility] Work Phone: 08-15-2021 14:03-0400 Systolic blood pressure 135 mm[Hg] [facility] Work Phone: 08-15-2021 11:42-0400 Body height 177.8 cm [facility] Work Phone: 08-15-2021 11:42-0400 Body mass index (BMI) [Ratio] 19.3 kg/m2 [facility] Work Phone: 08-15-2021 11:42-0400 Body weight 61.23 kg [facility] Work Phone: 08-01-2021 12:14-0400 Diastolic blood pressure 88 mm[Hg] DR JENSEN GARCÍA MD [facility] 08-01-2021 12:14-0400 Heart rate 94 /min DR JENSEN GARCÍA MD [facility] 08-01-2021 12:14-0400 Respiratory rate 20 /min DR JENSEN GARCÍA MD [facility] 08-01-2021 12:14-0400 Systolic blood pressure 127 mm[Hg] DR JENSEN GARCÍA MD [facility] 08-01-2021 11:32-0400 Heart rate 90 /min DR JENSEN GARCAÍ MD [facility] 08-01-2021 11:32-0400 Respiratory rate 22 /min DR JENSEN GARCÍA MD [facility] 08-01-2021 11:17-0400 Body temperature 97.52 [degF] DR JENSEN GARCÍA MD [facility] 08-01-2021 11:17-0400 Body weight [address] JENSEN GARCÍA MD [facility] 08-01-2021 11:17-0400 Diastolic blood pressure 84 mm[Hg] DR JENSEN GARCÍA MD [facility] 08-01-2021 11:17-0400 Heart rate 99 /min DR JENSEN GARCÍA MD [facility] 08-01-2021 11:17-0400 Respiratory rate 22 /min DR JENSEN GARCÍA MD [facility] 08-01-2021 11:17-0400 Systolic blood pressure 146 mm[Hg] DR JENSEN GARCÍA MD [facility] 07-17-2021 19:55-0400 Diastolic blood pressure 92 mm[Hg] CLIFFORD ALI MD [facility] 07-17-2021 19:55-0400 Heart rate 92 /min CLIFFORD LAI MD [facility] 07-17-2021 19:55-0400 Respiratory rate 20 /min CLIFFORD LAI MD [facility] 07-17-2021 19:55-0400 Systolic blood pressure 131 mm[Hg] CLIFFORD LAI MD [facility] 07-17-2021 18:57-0400 Diastolic blood pressure 94 mm[Hg] CLIFFORD LAI MD [facility] 07-17-2021 18:57-0400 Heart rate 93 /min CLIFFORD LAI MD [facility] 07-17-2021 18:57-0400 Respiratory rate 20 /min CLIFFORD LAI MD [facility] 07-17-2021 18:57-0400 Systolic blood pressure 124 mm[Hg] CLIFFORD LAI MD [facility] 07-17-2021 18:44-0400 Heart rate 128 /min CLIFFORD LAI MD [facility] 07-17-2021 17:53-0400 Body temperature 98.06 [degF] CLIFFORD LAI MD [facility] 07-17-2021 17:53-0400 Body weight 62 kg CLIFFORD LAI MD [facility] 07-17-2021 17:53-0400 Diastolic blood pressure 87 mm[Hg] CLIFFORD LAI MD [facility] 07-17-2021 17:53-0400 Heart rate 131 /min CLIFFORD LAI MD [facility] 07-17-2021 17:53-0400 Respiratory rate 22 /min CLIFFORD LAI MD [facility] 07-17-2021 17:53-0400 Systolic blood pressure 116 mm[Hg] CLIFFORD LAI MD [facility] 07-16-2021 16:17-0400 Body height 172.7 cm Respiratory Wstr Work Phone: [facility] 07-16-2021 16:17-0400 Body weight 62.6 kg Respiratory Wstr Work Phone: [facility] 07-16-2021 15:02-0400 Body weight 62.6 kg Manuel Block MD Work Phone: [facility] 07-16-2021 15:02-0400 Diastolic blood pressure 88 mm[Hg] Manuel Block MD Work Phone: [facility] 07-16-2021 15:02-0400 Heart rate 119 /min Manuel Block MD Work Phone: [facility] 07-16-2021 15:02-0400 SaO2% (BldA) [Mass fraction] 96 % Manuel Block MD Work Phone: [facility] 07-16-2021 15:02-0400 Systolic blood pressure 147 mm[Hg] Manuel Block MD Work Phone: [facility] 07-12-2021 09:28-0400 SaO2% (BldA) [Mass fraction] 94 % Radhames Young MD Work Phone: [facility] [facility] 07-12-2021 07:58-0400 Body temperature 96.6 [degF] aRdhames Young MD Work Phone: [facility] 07-12-2021 07:58-0400 Diastolic blood pressure 62 mm[Hg] Radhames Young MD Work Phone: [facility] 07-12-2021 07:58-0400 Heart rate 77 /min Radhames Young MD Work Phone: [facility] 07-12-2021 07:58-0400 Respiratory rate 18 /min Radhames Young MD Work Phone: [facility] 07-12-2021 07:58-0400 Systolic blood pressure 94 mm[Hg] Radhames Young MD Work Phone: [facility] 07-08-2021 05:21-0400 Body mass index (BMI) [Ratio] 18.14 kg/m2 Radhames Young MD Work Phone: [facility] 07-08-2021 05:21-0400 Body weight 58.97 kg Radhames Young MD Work Phone: [facility] 07-07-2021 10:49-0400 Body height 180.3 cm Radhames Young MD Work Phone: [facility] 06-21-2021 00:27-0400 Diastolic blood pressure 86 mm[Hg] DR DEVYN ROCHE MD [facility] 06-21-2021 00:27-0400 Heart rate 94 /min DR DEVYN ROCHE MD [facility] 06-21-2021 00:27-0400 Mean blood pressure 103 mm[Hg] DR DEVYN ROCHE MD [facility] 06-21-2021 00:27-0400 Respiratory rate 20 /min DR DEVYN ROCHE MD [facility] 06-21-2021 00:27-0400 Systolic blood pressure 136 mm[Hg] DR DEVYN ROCHE MD [facility] 06-20-2021 23:43-0400 Diastolic blood pressure 86 mm[Hg] DR DEVYN ROCHE MD [facility] 06-20-2021 23:43-0400 Heart rate 96 /min DR DEVYN ROCHE MD [facility] 06-20-2021 23:43-0400 Respiratory rate 22 /min DR DEVYN ROCHE MD [facility] 06-20-2021 23:43-0400 Systolic blood pressure 137 mm[Hg] DR DEVYN ROCHE MD [facility] 06-20-2021 23:11-0400 Heart rate 105 /min DR DEVYN ROCHE MD [facility] 06-20-2021 23:11-0400 Respiratory rate 24 /min DR DEVYN ROCHE MD [facility] 06-20-2021 22:42-0400 Body temperature 97.16 [degF] DR DEVYN ROCHE MD [facility] 06-20-2021 22:42-0400 Diastolic blood pressure 95 mm[Hg] DR DEVYN ROCHE MD [facility] 06-20-2021 22:42-0400 Systolic blood pressure 142 mm[Hg] DR DEVYN ROCHE MD [facility] Encounters Encounter Date Encounter Type Care Provider Facility Start: 10-22-2024 End: 10-22-2024 Refill Antwan Buchanan DO Work Phone: [facility] Comment on above: Refill Request Start: 08-06-2024 End: 08-09-2024 ambulatory Francois R Miguel BILLSPARTS CLASSIFIER Work Phone: Pulmonary Medicine Start: 07-31-2024 End: 07-31-2024 ambulatory ANTWAN Светлана BUCHANAN Facility:[facility] Start: 07-31-2024 End: 07-31-2024 Patient encounter procedure Antwan Buchanan DO Work Phone: [facility] [place] Comment on above: SOB (shortness of br eath) (Primary Dx); Vitamin D deficiency; Chronic obstructive pulmonary disease, unspecified COPD type ([facility]); EDI (generalized anxiety disorder); Stage 4 very severe COPD by GOLD classification ([facility]); Iron deficiency anemia, unspecified iron deficiency anemia [...] Start: 04-06-2024 End: 04-06-2024 ambulatory Pulm [facility] Work Phone: [facility] Comment on above: Spirometry Start: 04-06-2024 End: 04-06-2024 Patient encounter procedure Pulm [facility] Work Phone: [facility] Start: 03-23-2024 End: 03-30-2024 Refill Manuel Block MD Work Phone: Pulmonary Medicine Comment on above: Refill Request Start: 03-22-2024 End: 03-22-2024 Emergency department patient visit Antwan Buchanan Facility:[facility] Start: 03-14-2024 ambulatory Antwan Whitaker y:BMS Start: 03-14-2024 End: 03-16-2024 Evaluation and management of inpatient Sharita Rich Facility:[facility] Start: 11-24-2023 End: 11-24-2023 ambulatory Antwan Buchanan DO Work Phone: [facility] [place] Comment on above: Oxygen Start: 08-22-2023 ambulatory Manuel lBock MD Work Phone: Pulmonary Medicine Start: 08-11-2023 [...] 08-02-2023 Patient encounter status Darcy sena RN [facility] Work Phone: Start: 06-27-2023 Telephone encounter Lung Pre T x Main Work Phone: Pulmonary Medicine Comment on above: Return Call Request 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 cand idate (Primary Dx) 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 cand idate (Primary Dx); Bone disorder; 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 Start: 05-24-2023 Telephone encounter Lung Pre T x Main Work Phone: Pulmonary Medicine Comment on above: Return Call Request Lung Eval Start: 05-13-2023 End: 06-12-2023 Discharged Recurring [facility] Work Phone: Start: 05-13-2023 End: 06-12-2023 ambulatory Antwan Buchanan [facility] Work Phone: Start: 04-29-2023 End: 04-29-2023 ambulatory [facility] Work Phone: Start: 04-29-2023 End: 04-29-2023 Patient encounter procedure [facility] Work Phone: Start: 04-26-2023 Telephone encounter Arianna ( [facility]) [facility] Comment on above: [facility] Start: 04-21-2023 Chart abstracting Inez Mckeon [...] procedure Antwan Buchanan DO Work Phone: Family [facility] [place] Comment on above: Fatigue, unspecified type (Primary Dx); Anemia, unspecified type; Stage 4 very severe COPD by GOLD classification (HCC); Pneumothorax, unspecified type; Cardiac murmur, previously undiagnosed Start: 01-28-2023 Telephone encounter Antwan khan DO Work Phone: [facility] [place] Comment on above: Patient Update Start: 01-26-2023 End: 01-27-2023 Evaluation and management of inpatient [facility] Start: 01-26-2023 End: 01-26-2023 Emergency department patient visit [facility] Start: 01-26-2023 End: 01-26-2023 Emergency department patient visit RAMON [facility] Start: 01-26-2023 End: 02-08-2023 Evaluation and management of inpatient [facility] Comment on above: Arrived Start: 01-26-2023 End: 01-26-2023 Subsequent hospital visit by physician [facility] Comment on above: Arrived Start: 01-26-2023 End: 01-26-2023 Subsequent hospital visit by physician [facility] Comment on above: Arrived Start: 01-26-2023 End: 02-08-2023 Evaluation and management of inpatient Ramon Cunha MD Work Phone: [facility] Medical Unit 4N Start: 01-10-2023 Telephone encounter Antwan khan DO Work Phone: [facility] Comment on above: Patient Question Start: 12-04-2022 End: 12-05-2022 Emergency department patient visit KELTON ENRIQUE [facility] Start: 12-04-2022 End: 12-04-2022 Subsequent hospital visit by physician [facility] Comment on above: Arrived Start: 12-04-2022 End: 12-04-2022 Emergency department patient visit Kelton Enrique MD Work Phone: [facility] ED Comment on above: COPD exacerbation (H CC) (Primary Dx) Start: 11-27-2022 End: 11-28-2022 [facility] Start: 11-27-2022 End: 11-27-2022 Subsequent hospital visit by physician [facility] Comment on above: Arrived Start: 11-27-2022 End: 11-27-2022 Emergency department patient visit Tony Figueroa DO Work Phone: [facility] ED Comment on above: Choking, initial enc ounter (Primary Dx) Start: 11-14-2022 Non-patient / Non-visit Dr. Yesenia Buchanan Work Phone: [facility] Inpatient Physicians Work Phone: Start: 11-13-2022 Non-patient / Non-visit Dr. Yesenia Buchanan Work Phone: [facility] Work Phone: Start: 11-13-2022 Non-patient / Non-visit Dr. Yesenia Buchanan Work Phone: [facility] Start: 11-12-2022 Non-patient / Non-visit Dr. Yesenia Buchanan Work Phone: [facility] Start: 11-12-2022 End: 11-14-2022 Evaluation and management of inpatient Dr. Antwan Buchanan [facility] Work Phone: Start: 11-10-2022 Telephone encounter Antwan khan DO Work Phone: [facility] Comment on above: Patient Question Start: 10-19-2022 End: 10-19-2022 Emergency department patient visit Dr. Antwan Buchanan Work Phone: [facility]-Emergency Department Work Phone: Start: 09-06-2022 End: 09-06-2022 Patient encounter procedure Antwan uBchanan DO Work Phone: [facility] Comment on above: Stage 4 very severe COPD by GOLD classification (HCC) (Primary Dx); Centrilobular emphysema (HCC); Abnormal CT scan, lung; SOB (shortness of breath); Acute bilateral low back pain with bilateral sciatica; Screening for prostate cancer Start: 04-01-2022 Refill Lm SANTANA RN.PARTS CLASSIFIER, DNP Work Phone: [facility] Comment on above: Refill Request Start: 02-10-2022 End: 02-10-2022 Emergency department patient visit [facility]Emergency [facility] Start: 08-27-2021 ambulatory Antwan gutierres DO Work Phone: [facility] Start: 08-27-2021 Patient encounter procedure Antwan Buchanan DO Work Phone: General Surgery Comment on above: Outpatient [place] [facility] Start: 08-17-2021 Non-patient / Non-visit Dr. Yesenia Buchanan Work Phone: [facility] Inpatient Physicians Start: 08-16-2021 Non-patient / Non-visit Dr. Yesenia Buchanan Work Phone: [facility] Inpatient Physicians Start: 08-15-2021 End: 08-17-2021 [facility] Start: 08-01-2021 End: 08-01-2021 Emergency department patient visit DR JENSEN GARCÍA MD [facility] Start: 07-31-2021 Orders Only Manuel Block MD Work Phone: Pulmonary Medicine Start: 07-29-2021 ambulatory Manuel Block MD Work Phone: Pulmonary Medicine Comment on above: Inhailer Start: 07-17-2021 End: 07-17-2021 Emergency department patient visit CLIFFORD LAI MD [facility] Start: 07-17-2021 Refill Antwan gutierres DO Work Phone: Family [facility] Comment on above: Refill Request Start: 07-16-2021 End: 07-16-2021 ambulatory Respiratory Therapist [facility] Work Phone: Pulmonary Medicine Comment on above: Spirometry Start: 07-16-2021 End: 07-16-2021 Patient encounter procedure Respiratory Therapist [facility] Work Phone: [facility] Comment on above: Stage 4 very severe COPD by GOLD classification (HCC) (Primary Dx); Centrilobular emphysema (HCC); Lung nodules; Bronchiectasis without complication (HCC); Former cigarette smoker Start: 07-01-2021 End: 07-12-2021 Evaluation and management of inpatient Radhames Young MD Work Phone: [facility] 2E TELEMETRY Comment on above: Shortness of breath (Primary Dx); Debility; Chronic respiratory failure, unspecified whether with hypoxia or hypercapnia (HCC); Dysphagia, unspecified type; Pharyngeal dysphagia Start: 06-20-2021 End: 06-21-2021 Emergency department patient visit DR DEVYN ROCHE MD [facility] Start: 06-11-2021 ambulatory Antwan Cantu son DO Work Phone: [facility] [place] Comment on above: Question regarding C T CHEST WO IVCON Start: 06-10-2021 Telephone encounter Antwan kiddbrianna DO Work Phone: [facility] [place] Comment on above: Results Start: 06-10-2021 End: 06-10-2021 Subsequent hospital visit by physician [facility] (I-Stat) Work Phone: Cat Scan Comment on above: COPD, severe (HCC) [ J44.9] Start: 09-05-2020 End: 09-05-2020 Subsequent hospital visit by physician Xr [facility] [place] Work Phone: Radiology Comment on above: [...] exam ches t single view Jordin Larsen TRAFFIC INCIDENT MANAGEMENT MANAGER - PARTS CLASSIFIER Work Phone: Start: 02-07-2023 Ecg routine ecg w/le ast 12 lds trcg only w/o i&r Jordin Larsen TRAFFIC INCIDENT MANAGEMENT MANAGER - PARTS CLASSIFIER Work Phone: Start: 02-07-2023 Assay of troponin quantitative Jordin Larsen TRAFFIC INCIDENT MANAGEMENT MANAGER - PARTS CLASSIFIER Work Phone: Start: 02-07-2023 Radiologic exam abdo [...] pco2 po2 co2 hco3 Charlene Del Cid TRAFFIC INCIDENT MANAGEMENT MANAGER - PARTS CLASSIFIER Work Phone: Start: 01-30-2023 Radiologic exam abdo [...] ches t single view Charlene Del Cid TRAFFIC INCIDENT MANAGEMENT MANAGER - PARTS CLASSIFIER Work Phone: Start: 01-29-2023 Glucose quantitative blood [...] 01-29-2023 Comprehensive metabolic panel Charlene Del Cid TRAFFIC INCIDENT MANAGEMENT MANAGER - PARTS CLASSIFIER Work Phone: Start: 01-28-2023 End: 01-28-2023 Procalcitonin (pct) Charlene sykes TRAFFIC INCIDENT MANAGEMENT MANAGER - PARTS CLASSIFIER Work Phone: Start: 01-28-2023 Radiologic exam ches t single view Joseph Trejo MD Work Phone: Start: 01-28-2023 Glucose quantitative blood xcpt reagent strip Joseph Trejo MD Work Phone: Start: 01-28-2023 EXTUBATION Joseph andersen MD Work Phone: Start: 01-28-2023 Glucose quantitative blood xcpt reagent strip Joseph Trejo MD Work Phone: Start: 01-28-2023 Radiologic exam ches t single view Charlene Rodriges-Michela TRAFFIC INCIDENT MANAGEMENT MANAGER - PARTS CLASSIFIER Work Phone: Start: 01-28-2023 Blood gases any comb ination ph pco2 po2 co2 hco3 Joseph Trejo MD Work Phone: Start: 01-28-2023 Comprehensive metabo lic panel Charlene Rodriges-Michela TRAFFIC INCIDENT MANAGEMENT MANAGER - PARTS CLASSIFIER Work Phone: Start: 01-28-2023 Radiologic exam ches t single view Charlene Rodriges-Michela TRAFFIC INCIDENT MANAGEMENT MANAGER - PARTS CLASSIFIER Work Phone: Start: 01-27-2023 Glucose quantitative blood xcpt reagent strip Joseph Trejo MD Work Phone: Start: 01-27-2023 Glucose quantitative blood xcpt reagent strip Joseph Trejo MD Work Phone: Start: 01-27-2023 Assay of troponin quantitative Charlene Rodriges-Michela TRAFFIC INCIDENT MANAGEMENT MANAGER - PARTS CLASSIFIER Work Phone: Start: 01-27-2023 Respiratory pathogen s DNA and RNA panel - Nasopharynx by DESTINY with non-probe detection Charlene Rodriges-Michela TRAFFIC INCIDENT MANAGEMENT MANAGER - PARTS CLASSIFIER Work Phone: Start: 01-27-2023 Glucose quantitative blood xcpt reagent strip Joseph Trejo MD Work Phone: Start: 01-27-2023 Ct thorax w/o contra st material Joseph Trejo MD Work Phone: Start: 01-27-2023 Assay of troponin quantitative Charlene Rodriges-Michela TRAFFIC INCIDENT MANAGEMENT MANAGER - PARTS CLASSIFIER Work Phone: Start: 01-27-2023 Comprehensive metabo lic panel Charlene Rodriges-Michela TRAFFIC INCIDENT MANAGEMENT MANAGER - PARTS CLASSIFIER Work Phone: Start: 01-27-2023 Radiologic exam ches t single view Charlene Rodriges-Michela TRAFFIC INCIDENT MANAGEMENT MANAGER - PARTS CLASSIFIER Work Phone: Start: 01-27-2023 Glucose quantitative blood xcpt reagent strip Joseph Trejo MD Work Phone: Start: 01-27-2023 Blood gases any comb ination ph pco2 po2 co2 hco3 Joseph Trejo MD Work Phone: Start: 01-26-2023 Glucose quantitative blood xcpt reagent strip Joseph Trejo MD Work Phone: Start: 01-26-2023 Drug test def 1-7 classes Charlene Del Cid TRAFFIC INCIDENT MANAGEMENT MANAGER - PARTS CLASSIFIER Work Phone: Start: 01-26-2023 UNCONFIRMED DRUG SCREEN Charlene Del Cid TRAFFIC INCIDENT MANAGEMENT MANAGER - PARTS CLASSIFIER Work Phone: Start: 01-26-2023 Urinalysis complete panel - Urine Charlene Del Cid TRAFFIC INCIDENT MANAGEMENT MANAGER - PARTS CLASSIFIER Work Phone: Start: 01-26-2023 End: 01-26-2023 Urnls dip stick/tablet reagent auto microscopy Charlene Del Cid TRAFFIC INCIDENT MANAGEMENT MANAGER - PARTS CLASSIFIER Work Phone: Start: 01-26-2023 Blood gases any comb ination ph pco2 po2 co2 hco3 Joseph Trejo MD Work Phone: Start: 01-26-2023 End: 01-26-2023 Comprehensive metabolic panel Charlene Del Cid TRAFFIC INCIDENT MANAGEMENT MANAGER - PARTS CLASSIFIER Work Phone: Start: 01-26-2023 End: 01-26-2023 Bacteria identified in Blood by Culture Charlene Del Cid TRAFFIC INCIDENT MANAGEMENT MANAGER - PARTS CLASSIFIER Work Phone: Start: 01-26-2023 Radiologic exam ches t single view Charlene Del Cid TRAFFIC INCIDENT MANAGEMENT MANAGER - PARTS CLASSIFIER Work Phone: Start: 01-26-2023 Blood gases any comb ination ph pco2 po2 co2 hco3 Ramon Cunha MD Work Phone: Start: 01-26-2023 End: 01-26-2023 Radiologic exam chest single view Ramon Cunha MD Work Phone: Start: 01-26-2023 Ecg routine ecg w/le ast 12 lds trcg only w/o i&r Ramon Cnuha MD Work Phone: Start: 01-26-2023 Radiologic exam [...] Start: 10-19-2022 Plain chest X-ray Dr. Carol Bcuhanan Work Phone: Start: 09-06-2022 Ecg routine ecg [...] Start: 07-03-2021 Assay of folic acid serum aKpil García TRAFFIC INCIDENT MANAGEMENT MANAGER - PARTS CLASSIFIER Work Phone: Start: 07-03-2021 BASIC METABOLIC PANE L W/ REFLEX TO MG FOR LOW K Carla Cox MD Start: 07-02-2021 Radiologic exam swal low function contrast study Kapil García TRAFFIC INCIDENT MANAGEMENT MANAGER - PARTS CLASSIFIER Work Phone: Start: 07-02-2021 MANAGER LEARNING MODIFIED BARIUM SWALLOW STUDY (MBS) Kapil García TRAFFIC INCIDENT MANAGEMENT MANAGER - PARTS CLASSIFIER Work Phone: Start: 07-02-2021 Iaadiadoo streptococ cus [...] Work Phone: Start: 07-01-2021 LACTATE, SEPSIS Radhames Yonug MD Work Phone: Start: 07-01-2021 Radiologic exam [...] exam ches t 2 views Deja Camacho TRAFFIC INCIDENT MANAGEMENT MANAGER.PARTS CLASSIFIER Work Phone: Start: 07-20-2017 Video assisted thora [...] Screening for malign ant neoplasm of colon [employer] Start: 2030 RSV Immunization age d 60 or older (1 - 1-dose 60+ series) RSV Immunization aged 60 or older (1 - 1-dose 60+ series) [facility] Start: 2030 [facility] Start: 08-10-2028 Lipid panel Lipid Screening [facility] Start: 09-07-2027 DTaP/Tdap/Td vaccine (3 - Td or Tdap) DTaP/Tdap/Td vaccine (3 - Td or Tdap) [facility] Start: 09-07-2027 DTaP/Tdap/Td Vaccine s (3 - Td or Tdap) DTaP/Tdap/Td Vaccines (3 - Td or Tdap) [facility] Start: 09-07-2027 Urine microalbumin profile [facility] Start: 09-07-2027 [facility] Start: 08-10-2026 Diabetes Screening Diabetes Screenin g [facility] Start: 02-18-2026 Diabetes Screening Diabetes Screenmo g [facility] Start: 02-08-2026 Diabetes Screening Diabetes Screenmo g [facility] Start: 09-06-2025 DIABETES SCREEN DIABETES SCREEN [facility] Start: 09-06-2025 Diabetes Screening Diabetes Screenin g [facility] Start: 07-31-2025 Annual PCP Team Lawn Technician nikolai Disease Visit Annual PCP Team Chronic Disease Visit [facility] Start: 11-12-2024 Influenza vaccination C [facility] Start: 08-10-2024 Screening for malign ant neoplasm of lung Lung Cancer Screening [facility] Start: 07-31-2024 End: 07-31-2024 Patient encounter procedure 07/31/2024 2:20 PM EDT Office Visit [facility] [place] [address] [place], [place] [id number] Antwan Buchanan, [address] [place], [place] [id number] [facility] [place] Comment on above: Wellness Start: 07-31-2024 End: 10-30-2024 CBC W Auto Differential panel - Blood COMPLETE BLOOD COUNT AND DIFFERENTIAL Lab Routine Fatigue, unspecified type Expected: 07/31/2024, Expires: 10/30/2024 [facility] Comment on above: Expected: 07/31/2024 , Expires: 10/30/2024 Start: 07-31-2024 End: 10-30-2024 Comprehensive metabolic 2000 panel - Serum or Plasma COMPREHENSIVE METABOLIC PANEL Lab Routine Fatigue, unspecified type Expected: 07/31/2024, Expires: 10/30/2024 [facility] Work Phone: Comment on above: Expected: 07/31/2024 , Expires: 10/30/2024 Start: 07-31-2024 End: 10-30-2024 Hemoglobin A1c in Blood HEMOGLOBIN A1C Lab Routine Hyperglycemia Expected: 07/31/2024, Expires: 10/30/2024 [facility] Comment on above: Expected: 07/31/2024 , Expires: 10/30/2024 Start: 07-31-2024 End: 10-30-2024 Lipid 1996 panel - Serum or Plasma LIPID PANEL, FASTING Lab Routine Dyslipidemia Expected: 07/31/2024, Expires: 10/30/2024 [facility] Comment on above: Expected: 07/31/2024 , Expires: 10/30/2024 Start: 07-31-2024 End: 10-30-2024 Thyrotropin [Units/volume] in Serum or Plasma THYROID STIMULATING HORMONE Lab Routine Fatigue, unspecified type Expected: 07/31/2024, Expires: 10/30/2024 [facility] Comment on above: Expected: 07/31/2024 , Expires: 10/30/2024 Start: 02-19-2024 Annual PCP Team Lawn Technician nikolai Disease Visit Annual PCP Team Chronic Disease Visit [facility] Start: 01-30-2024 Influenza vaccination Lung Cancer Sc [facility] Start: 01-30-2024 Screening for malign ant neoplasm of lung Lung Cancer Screening [facility] Start: 01-28-2024 Diabetes mellitus screening [facility] Start: 12-20-2023 End: 12-20-2023 Patient encounter procedure 12/20/2023 2:00 PM EDT Office Visit Pulmonary Medicine [address] [place] [address] Francois Woodward, TRAFFIC INCIDENT MANAGEMENT MANAGER.PARTS CLASSIFIER [address] [facility] [address] [place] [address] Chronic obstructive pulmonary disease, unspecified COPD type (HCC) [J44.9] Pulmonary Medicine Comment on above: Chronic obstructive pulmonary disease, unspecified COPD type (HCC) [J44.9] Start: 12-20-2023 End: 12-20-2023 ambulatory 12/20/2023 1:30 PM EDT Procedure [facility] [address] [place] [address] Wstr, Pulm Lab [facility] [address] [place] [address] Chronic obstructive pulmonary disease, unspecified COPD type (HCC) [J44.9] [facility] Comment on above: Chronic obstructive pulmonary disease, unspecified COPD type (HCC) [J44.9] Start: 11-13-2023 Covid-19 Vaccine ( season) Covid-19 Vaccine () [facility] Start: 11-13-2023 Covid-19 Vaccine ( season) Covid-19 Vaccine () [facility] Start: 11-13-2023 Influenza vaccination C [facility] Start: 09-11-2023 Influenza vaccination Influenza Vacc ine (#1) [facility] Comment on above: Postponed from 11/12 (Declined at this time) Start: 09-07-2023 ANNUAL PCP TEAM EXTERMINATOR HELPER NIKOLAI DISEASE VISIT ANNUAL PCP TEAM CHRONIC DISEASE VISIT [facility] Start: 09-07-2023 COVID-19 VACCINE (#1) COVID-19 VACCI NE (#1) [facility] Comment on above: Postponed from 04/22 (Declined at this time) Start: 08-15-2023 End: 08-15-2023 Nutrition therapy 08/15/2023 2:00 PM EDT [facility] Nutrition Therapy [address] LUNG TX EVAL Nutrition Therapy Comment on above: LUNG TX EVAL Start: 07-25-2023 End: 07-26-2024 ARTERIAL BLOOD GAS, ROOM AIR ARTERIAL BLOOD GAS, ROOM AIR PFT Routine 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 Expected: 07/25/2023 (Approximate), Expires: 07/26/2024 [facility] Work Phone: Comment on above: Expected: 07/25/2023 (Approximate), Expires: 07/26/2024 Start: 07-25-2023 End: 10-24-2023 BLOOD TB SCREEN, INCUBATED BLOOD TB SCREEN, INCUBATED Lab Routine 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 Expected: 07/25/2023 (Approximate), Expires: 10/24/2023 [facility] Work Phone: Comment on above: Expected: 07/25/2023 (Approximate), Expires: 10/24/2023 Start: 07-25-2023 End: 10-24-2023 CBC W Auto Differential panel - Blood COMPLETE BLOOD COUNT AND DIFFERENTIAL Lab 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 Chronic fatigue SOB (shortness of breath) Expected: 07/25/2023 (Approximate), Expires: 10/24/2023 [facility] Work Phone: Comment on above: Expected: 07/25/2023 (Approximate), Expires: 10/24/2023 Start: 07-25-2023 End: 10-24-2023 Chronic hepatitis differentiation between hepatitis B and C virus panel - Serum or Plasma HEP REMOTE PANEL BL Lab Routine 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 disorder 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 Chronic fatigue SOB (shortness of breath) Expected: 07/25/2023 (Approximate), Expires: 10/24/2023 [facility] Work Phone: Comment on above: Expected: 07/25/2023 (Approximate), Expires: 10/24/2023 Start: 07-25-2023 End: 10-24-2023 Comprehensive metabolic 2000 panel - Serum or Plasma COMPREHENSIVE METABOLIC PANEL Lab 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 Chronic fatigue SOB (shortness of breath) Expected: 07/25/2023 (Approximate), Expires: 10/24/2023 [facility] Work Phone: Comment on above: Expected: 07/25/2023 (Approximate), Expires: 10/24/2023 Start: 07-25-2023 End: 10-24-2023 CONFIRM BLOOD TYPE CONFIRM BLOOD TYPE Blood Bank Routine 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 disorder 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 Chronic fatigue SOB (shortness of breath) Expected: 07/25/2023 (Approximate), Expires: 10/24/2023 [facility] Work Phone: Comment on above: Expected: 07/25/2023 (Approximate), Expires: 10/24/2023 Start: 07-25-2023 End: 07-26-2024 CT Chest WO contrast CT CHEST WO IVCON Radiology Routine 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 disorder 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 Chronic fatigue SOB (shortness of breath) Expected: 07/25/2023 (Approximate), Expires: 07/26/2024 [facility] Work Phone: Comment on above: Expected: 07/25/2023 (Approximate), Expires: 07/26/2024 Start: 07-25-2023 End: 10-24-2023 Cytomegalovirus IgG Ab [Units/volume] in Serum or Plasma CMV IGG ANTIBODY BL Lab 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 Chronic fatigue SOB (shortness of breath) Expected: 07/25/2023 (Approximate), Expires: 10/24/2023 [facility] Work Phone: Comment on above: Expected: 07/25/2023 (Approximate), Expires: 10/24/2023 Start: 07-25-2023 End: 06-26-2024 ECG COMPLETE ECG COMPLETE ECG Routine 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 disorder 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 Chronic fatigue SOB (shortness of breath) Expected: 07/25/2023 (Approximate), Expires: 06/26/2024 [facility] Work Phone: Comment on above: Expected: 07/25/2023 (Approximate), Expires: 06/26/2024 Start: 07-25-2023 End: 06-26-2024 ECHO WITH AGITATED SALINE CONTRAST ECHO WITH AGITATED SALINE CONTRAST Cardiology Routine 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 Expected: 07/25/2023 (Approximate), Expires: 06/26/2024 [facility] Work Phone: Comment on above: Expected: 07/25/2023 (Approximate), Expires: 06/26/2024 Start: 07-25-2023 End: 10-24-2023 Caio Jean virus capsid IgG Ab [Units/volume] in Serum CAIO-JEAN VCA IGG Lab 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 Chronic fatigue SOB (shortness of breath) Expected: 07/25/2023 (Approximate), Expires: 10/24/2023 [facility] Work Phone: Comment on above: Expected: 07/25/2023 (Approximate), Expires: 10/24/2023 Start: 07-25-2023 End: 10-24-2023 HEPATITIS A ANTIBODY, IGG HEPATITIS A ANTIBODY, IGG Lab Routine 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 Expected: 07/25/2023 (Approximate), Expires: 10/24/2023 [facility] Work Phone: Comment on above: Expected: 07/25/2023 (Approximate), Expires: 10/24/2023 Start: 07-25-2023 End: 10-24-2023 HERPES SIMPLEX TYPE 1 AND 2 IG HERPES SIMPLEX TYPE 1 AND 2 IG Lab Routine 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 disorder 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 Chronic fatigue SOB (shortness of breath) Expected: 07/25/2023 (Approximate), Expires: 10/24/2023 [facility] Work Phone: Comment on above: Expected: 07/25/2023 (Approximate), Expires: 10/24/2023 Start: 07-25-2023 End: 10-24-2023 HIV 1+2 Ab [Presence] in Serum or Plasma by Immunoassay HIV 1/2 COMBO WITH REFLEX TO DIFFERENTIATION Lab 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 Chronic fatigue SOB (shortness of breath) Expected: 07/25/2023 (Approximate), Expires: 10/24/2023 [facility] Work Phone: Comment on above: Expected: 07/25/2023 (Approximate), Expires: 10/24/2023 Start: 07-25-2023 End: 06-26-2024 HRT H/L LUNG REC INIT W/U HRT H/L LUNG REC INIT W/U ALLOGEN Routine 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 disorder 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 Chronic fatigue SOB (shortness of breath) Expected: 07/25/2023 (Approximate), Expires: 06/26/2024 [facility] Work Phone: Comment on above: Expected: 07/25/2023 (Approximate), Expires: 06/26/2024 Start: 07-25-2023 End: 10-24-2023 Lipid 1996 panel - Serum or Plasma LIPID PANEL BASIC Lab 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 Chronic fatigue SOB (shortness of breath) Expected: 07/25/2023 (Approximate), Expires: 10/24/2023 [facility] Work Phone: Comment on above: Expected: 07/25/2023 (Approximate), Expires: 10/24/2023 Start: 07-25-2023 End: 07-26-2024 LUNG DIFFUSION CAPACITY (DLCO) LUNG DIFFUSION CAPACITY (DLCO) PFT Routine 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 disorder 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 Chronic fatigue SOB (shortness of breath) Expected: 07/25/2023 (Approximate), Expires: 07/26/2024 [facility] Work Phone: Comment on above: Expected: 07/25/2023 (Approximate), Expires: 07/26/2024 Start: 07-25-2023 End: 07-26-2024 LUNG VOLUMES LUNG VOLUMES PFT 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 Chronic fatigue SOB (shortness of breath) Expected: 07/25/2023 (Approximate), Expires: 07/26/2024 [facility] Work Phone: Comment on above: Expected: 07/25/2023 (Approximate), Expires: 07/26/2024 Start: 07-25-2023 End: 10-24-2023 NICOTINE/COTININE NICOTINE/COTININE Lab Routine 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 disorder 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 Chronic fatigue SOB (shortness of breath) Expected: 07/25/2023 (Approximate), Expires: 10/24/2023 [facility] Work Phone: Comment on above: Expected: 07/25/2023 (Approximate), Expires: 10/24/2023 Start: 07-25-2023 End: 10-24-2023 Parathyrin.intact [Mass/volume] in Serum or Plasma PTH INTACT Lab 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 Chronic fatigue SOB (shortness of breath) Expected: 07/25/2023 (Approximate), Expires: 10/24/2023 [facility] Work Phone: Comment on above: Expected: 07/25/2023 (Approximate), Expires: 10/24/2023 Start: 07-25-2023 End: 10-24-2023 Prealbumin [Mass/volume] in Serum or Plasma PREALBUMIN Lab 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 Chronic fatigue SOB (shortness of breath) Expected: 07/25/2023 (Approximate), Expires: 10/24/2023 [facility] Work Phone: Comment on above: Expected: 07/25/2023 (Approximate), Expires: 10/24/2023 Start: 07-25-2023 End: 10-24-2023 PT panel - Platelet poor plasma by Coagulation assay PROTHROMBIN TIME Lab Routine 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 disorder 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 Chronic fatigue SOB (shortness of breath) Expected: 07/25/2023 (Approximate), Expires: 10/24/2023 [facility] Work Phone: Comment on above: Expected: 07/25/2023 (Approximate), Expires: 10/24/2023 Start: 07-25-2023 End: 10-24-2023 RUBEOLA (MEASLES)IGG RUBEOLA (MEASLES)IGG Lab Routine 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 Expected: 07/25/2023 (Approximate), Expires: 10/24/2023 [facility] Work Phone: Comment on above: Expected: 07/25/2023 (Approximate), Expires: 10/24/2023 Start: 07-25-2023 End: 07-26-2024 SIX MINUTE WALK SIX MINUTE WALK PFT 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 Chronic fatigue SOB (shortness of breath) Expected: 07/25/2023 (Approximate), Expires: 07/26/2024 [facility] Work Phone: Comment on above: Expected: 07/25/2023 (Approximate), Expires: 07/26/2024 Start: 07-25-2023 End: 07-26-2024 SPIROMETRY BASELINE ONLY SPIROMETRY BASELINE ONLY PFT 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 Chronic fatigue SOB (shortness of breath) Expected: 07/25/2023 (Approximate), Expires: 07/26/2024 [facility] Work Phone: Comment on above: Expected: 07/25/2023 (Approximate), Expires: 07/26/2024 Start: 07-25-2023 End: 10-24-2023 SYPHILIS TOTAL W/REFLEX SYPHILIS TOTAL W/REFLEX Lab 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 Chronic fatigue SOB (shortness of breath) Expected: 07/25/2023 (Approximate), Expires: 10/24/2023 [facility] Work Phone: Comment on above: Expected: 07/25/2023 (Approximate), Expires: 10/24/2023 Start: 07-25-2023 End: 10-24-2023 Thyrotropin [Units/volume] in Serum or Plasma THYROID STIMULATING HORMONE Lab Routine 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 disorder 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 Chronic fatigue SOB (shortness of breath) Expected: 07/25/2023 (Approximate), Expires: 10/24/2023 [facility] Work Phone: Comment on above: Expected: 07/25/2023 (Approximate), Expires: 10/24/2023 Start: 07-25-2023 End: 10-24-2023 Toxoplasma gondii IgG Ab [Units/volume] in Serum TOXOPLASMOSIS IGG AB Lab 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 Chronic fatigue SOB (shortness of breath) Expected: 07/25/2023 (Approximate), Expires: 10/24/2023 [facility] Work Phone: Comment on above: Expected: 07/25/2023 (Approximate), Expires: 10/24/2023 Start: 07-25-2023 End: 10-24-2023 TRANSPLANT CONFIRM ABO/RH TRANSPLANT CONFIRM ABO/RH Blood Bank 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 Chronic fatigue SOB (shortness of breath) Expected: 07/25/2023 (Approximate), Expires: 10/24/2023 [facility] Work Phone: Comment on above: Expected: 07/25/2023 (Approximate), Expires: 10/24/2023 Start: 07-25-2023 End: 10-24-2023 TYPE + SCREEN TYPE + SCREEN Blood Bank Routine 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 disorder 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 Chronic fatigue SOB (shortness of breath) Expected: 07/25/2023 (Approximate), Expires: 10/24/2023 [facility] Work Phone: Comment on above: Expected: 07/25/2023 (Approximate), Expires: 10/24/2023 Start: 07-25-2023 End: 10-24-2023 VARICELLA ZOSTER IGG VARICELLA ZOSTER IGG Lab Routine 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 disorder 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 Chronic fatigue SOB (shortness of breath) Expected: 07/25/2023 (Approximate), Expires: 10/24/2023 [facility] Work Phone: Comment on above: Expected: 07/25/2023 (Approximate), Expires: 10/24/2023 Start: 07-25-2023 End: 07-26-2024 XR Chest PA and Lateral XR CHEST 2V FRONTAL/LAT Radiology 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 Chronic fatigue SOB (shortness of breath) Expected: 07/25/2023 (Approximate), Expires: 07/26/2024 [facility] Work Phone: Comment on above: Expected: 07/25/2023 (Approximate), Expires: 07/26/2024 Start: 05-30-2023 End: 05-20-2024 ARTERIAL BLOOD GAS, ROOM AIR ARTERIAL BLOOD GAS, ROOM AIR PFT 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 Chronic fatigue SOB (shortness of breath) Centrilobular emphysema (HCC) Expected: 05/30/2023, Expires: 05/20/2024 [facility] Work Phone: Comment on above: Expected: 05/30/2023 , Expires: 05/20/2024 Start: 05-30-2023 End: 08-29-2023 BLOOD TB SCREEN, INCUBATED BLOOD TB SCREEN, INCUBATED Lab 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 Chronic fatigue SOB (shortness of breath) Centrilobular emphysema (HCC) Expected: 05/30/2023, Expires: 08/29/2023 [facility] Work Phone: Comment on above: Expected: 05/30/2023 , Expires: 08/29/2023 Start: 05-30-2023 End: 08-29-2023 CBC W Auto Differential panel - Blood CBC + DIFF Lab 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 Chronic fatigue SOB (shortness of breath) Centrilobular emphysema (HCC) Expected: 05/30/2023, Expires: 08/29/2023 [facility] Work Phone: Comment on above: Expected: 05/30/2023 , Expires: 08/29/2023 Start: 05-30-2023 End: 08-29-2023 Chronic hepatitis differentiation between hepatitis B and C virus panel - Serum or Plasma HEP REMOTE PANEL BL Lab 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 Chronic fatigue SOB (shortness of breath) Centrilobular emphysema (HCC) Expected: 05/30/2023, Expires: 08/29/2023 [facility] Work Phone: Comment on above: Expected: 05/30/2023 , Expires: 08/29/2023 Start: 05-30-2023 End: 08-29-2023 Comprehensive metabolic 2000 panel - Serum or Plasma COMP METABOLIC PANEL Lab Routine 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 disorder 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 Chronic fatigue SOB (shortness of breath) Centrilobular emphysema (HCC) Expected: 05/30/2023, Expires: 08/29/2023 [facility] Work Phone: Comment on above: Expected: 05/30/2023 , Expires: 08/29/2023 Start: 05-30-2023 End: 08-29-2023 CONFIRM BLOOD TYPE CONFIRM BLOOD TYPE Blood Bank 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 Chronic fatigue SOB (shortness of breath) Centrilobular emphysema (HCC) Expected: 05/30/2023, Expires: 08/29/2023 [facility] Work Phone: Comment on above: Expected: 05/30/2023 , Expires: 08/29/2023 Start: 05-30-2023 End: 05-20-2024 CT Chest WO contrast CT CHEST WO IVCON Radiology 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 Chronic fatigue SOB (shortness of breath) Centrilobular emphysema (HCC) Expected: 05/30/2023, Expires: 05/20/2024 [facility] Work Phone: Comment on above: Expected: 05/30/2023 , Expires: 05/20/2024 Start: 05-30-2023 End: 08-29-2023 Cytomegalovirus IgG Ab [Units/volume] in Serum or Plasma CMV IGG ANTIBODY BL Lab Routine 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 disorder 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 Chronic fatigue SOB (shortness of breath) Centrilobular emphysema (HCC) Expected: 05/30/2023, Expires: 08/29/2023 [facility] Work Phone: Comment on above: Expected: 05/30/2023 , Expires: 08/29/2023 Start: 05-30-2023 End: 04-21-2024 ECG COMPLETE ECG COMPLETE ECG Routine 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 disorder 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 Chronic fatigue SOB (shortness of breath) Centrilobular emphysema (HCC) Expected: 05/30/2023, Expires: 04/21/2024 [facility] Work Phone: Comment on above: Expected: 05/30/2023 , Expires: 04/21/2024 Start: 05-30-2023 End: 04-21-2024 ECHO WITH AGITATED SALINE CONTRAST ECHO WITH AGITATED SALINE CONTRAST Cardiology 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 Chronic fatigue SOB (shortness of breath) Centrilobular emphysema (HCC) Expected: 05/30/2023, Expires: 04/21/2024 [facility] Work Phone: Comment on above: Expected: 05/30/2023 , Expires: 04/21/2024 Start: 05-30-2023 End: 08-29-2023 Caio Jean virus capsid IgG Ab [Units/volume] in Serum CAIO-JEAN VCA IGG Lab 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 Chronic fatigue SOB (shortness of breath) Centrilobular emphysema (HCC) Expected: 05/30/2023, Expires: 08/29/2023 [facility] Work Phone: Comment on above: Expected: 05/30/2023 , Expires: 08/29/2023 Start: 05-30-2023 End: 08-29-2023 HEPATITIS A ANTIBODY, IGG HEPATITIS A ANTIBODY, IGG Lab Routine 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 disorder 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 Chronic fatigue SOB (shortness of breath) Centrilobular emphysema (HCC) Expected: 05/30/2023, Expires: 08/29/2023 [facility] Work Phone: Comment on above: Expected: 05/30/2023 , Expires: 08/29/2023 Start: 05-30-2023 End: 08-29-2023 HERPES SIMPLEX TYPE 1 AND 2 IG HERPES SIMPLEX TYPE 1 AND 2 IG Lab Routine 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 disorder 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 Chronic fatigue SOB (shortness of breath) Centrilobular emphysema (HCC) Expected: 05/30/2023, Expires: 08/29/2023 [facility] Work Phone: Comment on above: Expected: 05/30/2023 , Expires: 08/29/2023 Start: 05-30-2023 End: 08-29-2023 HIV 1+2 Ab [Presence] in Serum or Plasma by Immunoassay HIV 1 2 COMBO(AG/AB),WITH REFLEX TO DIFFERENTIATION Lab 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 Chronic fatigue SOB (shortness of breath) Centrilobular emphysema (HCC) Expected: 05/30/2023, Expires: 08/29/2023 [facility] Work Phone: Comment on above: Expected: 05/30/2023 , Expires: 08/29/2023 Start: 05-30-2023 End: 04-20-2024 HRT H/L LUNG REC INIT W/U HRT H/L LUNG REC INIT W/U ALLOGEN Routine 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 disorder 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 Chronic fatigue SOB (shortness of breath) Centrilobular emphysema (HCC) Expected: 05/30/2023, Expires: 04/20/2024 [facility] Work Phone: Comment on above: Expected: 05/30/2023 , Expires: 04/20/2024 Start: 05-30-2023 End: 08-29-2023 Lipid 1996 panel - Serum or Plasma LIPID PANEL BASIC Lab Routine 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 disorder 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 Chronic fatigue SOB (shortness of breath) Centrilobular emphysema (HCC) Expected: 05/30/2023, Expires: 08/29/2023 [facility] Work Phone: Comment on above: Expected: 05/30/2023 , Expires: 08/29/2023 Start: 05-30-2023 End: 05-20-2024 LUNG DIFFUSION CAPACITY (DLCO) LUNG DIFFUSION CAPACITY (DLCO) PFT 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 Chronic fatigue SOB (shortness of breath) Centrilobular emphysema (HCC) Expected: 05/30/2023, Expires: 05/20/2024 [facility] Work Phone: Comment on above: Expected: 05/30/2023 , Expires: 05/20/2024 Start: 05-30-2023 End: 05-20-2024 LUNG VOLUMES LUNG VOLUMES PFT Routine 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 disorder 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 Chronic fatigue SOB (shortness of breath) Centrilobular emphysema (HCC) Expected: 05/30/2023, Expires: 05/20/2024 [facility] Work Phone: Comment on above: Expected: 05/30/2023 , Expires: 05/20/2024 Start: 05-30-2023 End: 08-29-2023 NICOTINE/COTININE NICOTINE/COTININE Lab Routine 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 disorder 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 Chronic fatigue SOB (shortness of breath) Centrilobular emphysema (HCC) Expected: 05/30/2023, Expires: 08/29/2023 [facility] Work Phone: Comment on above: Expected: 05/30/2023 , Expires: 08/29/2023 Start: 05-30-2023 End: 08-29-2023 Parathyrin.intact [Mass/volume] in Serum or Plasma PTH INTACT BLD Lab Routine 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 disorder 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 Chronic fatigue SOB (shortness of breath) Centrilobular emphysema (HCC) Expected: 05/30/2023, Expires: 08/29/2023 [facility] Work Phone: Comment on above: Expected: 05/30/2023 , Expires: 08/29/2023 Start: 05-30-2023 End: 08-29-2023 Prealbumin [Mass/volume] in Serum or Plasma PREALBUMIN BLD Lab 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 Chronic fatigue SOB (shortness of breath) Centrilobular emphysema (HCC) Expected: 05/30/2023, Expires: 08/29/2023 [facility] Work Phone: Comment on above: Expected: 05/30/2023 , Expires: 08/29/2023 Start: 05-30-2023 End: 08-29-2023 PT panel - Platelet poor plasma by Coagulation assay PROTHROMBIN TIME/PT Lab Routine 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 disorder 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 Chronic fatigue SOB (shortness of breath) Centrilobular emphysema (HCC) Expected: 05/30/2023, Expires: 08/29/2023 [facility] Work Phone: Comment on above: Expected: 05/30/2023 , Expires: 08/29/2023 Start: 05-30-2023 End: 08-29-2023 RUBEOLA (MEASLES)IGG RUBEOLA (MEASLES)IGG Lab Routine 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 disorder 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 Chronic fatigue SOB (shortness of breath) Centrilobular emphysema (HCC) Expected: 05/30/2023, Expires: 08/29/2023 [facility] Work Phone: Comment on above: Expected: 05/30/2023 , Expires: 08/29/2023 Start: 05-30-2023 End: 05-20-2024 SIX MINUTE WALK SIX MINUTE WALK PFT 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 Chronic fatigue SOB (shortness of breath) Centrilobular emphysema (HCC) Expected: 05/30/2023, Expires: 05/20/2024 [facility] Work Phone: Comment on above: Expected: 05/30/2023 , Expires: 05/20/2024 Start: 05-30-2023 End: 05-20-2024 SPIROMETRY BASELINE ONLY SPIROMETRY BASELINE ONLY PFT Routine 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 disorder 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 Chronic fatigue SOB (shortness of breath) Centrilobular emphysema (HCC) Expected: 05/30/2023, Expires: 05/20/2024 [facility] Work Phone: Comment on above: Expected: 05/30/2023 , Expires: 05/20/2024 Start: 05-30-2023 End: 08-29-2023 SYPHILIS TOTAL W/REFLEX SYPHILIS TOTAL W/REFLEX Lab Routine 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 disorder 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 Chronic fatigue SOB (shortness of breath) Centrilobular emphysema (HCC) Expected: 05/30/2023, Expires: 08/29/2023 [facility] Work Phone: Comment on above: Expected: 05/30/2023 , Expires: 08/29/2023 Start: 05-30-2023 End: 08-29-2023 Thyrotropin [Units/volume] in Serum or Plasma TSH BLD Lab 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 Chronic fatigue SOB (shortness of breath) Centrilobular emphysema (HCC) Expected: 05/30/2023, Expires: 08/29/2023 [facility] Work Phone: Comment on above: Expected: 05/30/2023 , Expires: 08/29/2023 Start: 05-30-2023 End: 08-29-2023 Toxoplasma gondii IgG Ab [Units/volume] in Serum TOXOPLASMOSIS IGG AB Lab 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 Chronic fatigue SOB (shortness of breath) Centrilobular emphysema (HCC) Expected: 05/30/2023, Expires: 08/29/2023 [facility] Work Phone: Comment on above: Expected: 05/30/2023 , Expires: 08/29/2023 Start: 05-30-2023 End: 08-29-2023 TRANSPLANT CONFIRM ABO/RH TRANSPLANT CONFIRM ABO/RH Blood Bank 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 Chronic fatigue SOB (shortness of breath) Centrilobular emphysema (HCC) Expected: 05/30/2023, Expires: 08/29/2023 [facility] Work Phone: Comment on above: Expected: 05/30/2023 , Expires: 08/29/2023 Start: 05-30-2023 End: 08-29-2023 TYPE + SCREEN TYPE + SCREEN Blood Bank 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 Chronic fatigue SOB (shortness of breath) Centrilobular emphysema (HCC) Expected: 05/30/2023, Expires: 08/29/2023 [facility] Work Phone: Comment on above: Expected: 05/30/2023 , Expires: 08/29/2023 Start: 05-30-2023 End: 04-21-2024 US Carotid arteries - bilateral US CAROTID ARTERIES [facility] Vascular Lab Routine 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 disorder 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 Chronic fatigue SOB (shortness of breath) Centrilobular emphysema (HCC) Expected: 05/30/2023, Expires: 04/21/2024 [facility] Work Phone: Comment on above: Expected: 05/30/2023 , Expires: 04/21/2024 Start: 05-30-2023 End: 04-21-2024 US.doppler Extremity arteries - bilateral for physiologic artery study PVR ANK PRESS [facility] Vascular Lab 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 Chronic fatigue SOB (shortness of breath) Centrilobular emphysema (HCC) Expected: 05/30/2023, Expires: 04/21/2024 [facility] Work Phone: Comment on above: Expected: 05/30/2023 , Expires: 04/21/2024 Start: 05-30-2023 End: 08-29-2023 VARICELLA ZOSTER IGG VARICELLA ZOSTER IGG Lab Routine 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 disorder 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 Chronic fatigue SOB (shortness of breath) Centrilobular emphysema (HCC) Expected: 05/30/2023, Expires: 08/29/2023 [facility] Work Phone: Comment on above: Expected: 05/30/2023 , Expires: 08/29/2023 Start: 05-30-2023 End: 05-20-2024 XR Chest 2 Views XR CHEST 2V FRONTAL/LAT Radiology Routine 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 disorder 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 Chronic fatigue SOB (shortness of breath) Centrilobular emphysema (HCC) Expected: 05/30/2023, Expires: 05/20/2024 [facility] Work Phone: Comment on above: Expected: 05/30/2023 , Expires: 05/20/2024 Start: 03-14-2023 Behavioral Health Screening Behavioral Health Screening [facility] Start: 03-14-2023 Depression Assessment Depression Ass essment [facility] Start: 02-18-2023 End: 05-20-2023 25-hydroxyvitamin D3 [Mass/volume] in Serum or Plasma [facility] Work Phone: Comment on above: Expected: 02/18/2023 , Expires: 05/20/2023 Start: 11-20-2022 Blood chemistry [facility] Start: 11-19-2022 Blood chemistry [facility] Start: 11-18-2022 Blood chemistry [facility] Start: 11-17-2022 Blood chemistry [facility] Start: 11-16-2022 Blood chemistry [facility] Start: 11-15-2022 Blood chemistry [facility] Start: 11-14-2022 Patient discharge [facility] Start: 11-13-2022 [facility] Start: 11-13-2022 Vitamin B12 measurement [facility] Start: 11-13-2022 [facility] Start: 11-13-2022 Inhalation therapy procedure [facility] Start: 11-12-2022 [facility] Start: 11-12-2022 Following clinical pathway protocol [facility] Start: 11-12-2022 Transfusion of blood product [facility] Start: 11-12-2022 Application of intermittent pneumatic compression device [facility] Start: 11-12-2022 Ambulation without limitation [facility] Start: 11-12-2022 Assessment of risk o f venous thromboembolism [facility] Start: 11-12-2022 Insertion of cathete r into peripheral vein [facility] Start: 11-12-2022 Measuring intake and output [facility] Start: 11-12-2022 Oxygen therapy [facility] Start: 11-12-2022 Providing care accor ding to standard [facility] Start: 11-12-2022 Referral to gastroenterology service [facility] Start: 11-12-2022 End: 11-12-2022 [facility] Start: 11-12-2022 Verification routine [facility] Start: 11-12-2022 Admission procedure [facility] Start: 11-12-2022 Administration of bl ood product [facility] Start: 11-12-2022 Covid-19 Vaccine ( season) Covid-19 Vaccine () [facility] Start: 11-12-2022 Influenza vaccination [facility] Start: 10-19-2022 [facility] Start: 10-18-2022 DIABETES SCREEN DIABETES SCREEN [facility] Start: 09-06-2022 End: 11-06-2022 Chronic hepatitis differentiation between hepatitis B and C virus panel - Serum or Plasma [facility] Work Phone: Comment on above: Expected: 09/06/2022 , Expires: 11/06/2022 Start: 09-06-2022 End: 11-06-2022 Comprehensive metabolic 2000 panel - Serum or Plasma [facility] Work Phone: Comment on above: Expected: 09/06/2022 , Expires: 11/06/2022 Start: 09-06-2022 End: 11-06-2022 HIV 1+2 Ab [Presence] in Serum or Plasma by Immunoassay [facility] Work Phone: Comment on above: Expected: 09/06/2022 , Expires: 11/06/2022 Start: 09-06-2022 End: 11-06-2022 PSA/PROSTSPECAG SCRN PSA/PROSTSPECAG SCRN Lab Routine Screening for prostate cancer Expected: 09/06/2022, Expires: 11/06/2022 [facility] Work Phone: Comment on above: Expected: 09/06/2022 , Expires: 11/06/2022 Start: 09-06-2022 End: 11-06-2022 Thyrotropin [Units/volume] in Serum or Plasma [facility] Work Phone: Comment on above: Expected: 09/06/2022 , Expires: 11/06/2022 Start: 07-08-2022 Influenza vaccination LUNG CANCER SC ANNA [facility] Start: 05-29-2022 ANNUAL PCP TEAM EXTERMINATOR HELPER NIKOLAI DISEASE VISIT ANNUAL PCP TEAM CHRONIC DISEASE VISIT [facility] Start: 05-29-2022 COVID-19 VACCINE (#1) COVID-19 VACCI NE (#1) [facility] Comment on above: Postponed from 10/20 (Declined at this time) Postponed from 04/22 (Declined at this time) Start: 05-29-2022 COVID-19 VACCINE (1) COVID-19 VACCIN E (1) [facility] Comment on above: Postponed from 10/20 (Declined at this time) Start: 05-27-2022 Adult depression screening assessment DEPRESSION SCREENING [facility] Start: 03-14-2022 DEPRESSION ASSESSMENT DEPRESSION ASS ESSMENT [facility] Start: 02-10-2022 [facility] Work Phone: Start: 01-16-2022 End: 08-15-2022 Ct thorax w/o contrast material CT CHEST WO IVCON Radiology Routine Centrilobular emphysema (HCC) Lung nodules Expected: 01/16/2022, Expires: 08/15/2022 [facility] Work Phone: Comment on above: Expected: 01/16/2022 , Expires: 08/15/2022 Start: 11-12-2021 Influenza vaccination [facility] Start: 09-10-2021 Influenza vaccination INFLUENZA (#1) [facility] Comment on above: Postponed from 11/12 (Declined at this time) Start: 07-16-2021 End: 09-15-2021 Alpha 1 antitrypsin [Mass/volume] in Serum or Plasma [facility] Work Phone: Comment on above: Expected: 07/16/2021 , Expires: 09/15/2021 Start: 2020 Shingles vaccine (1 of 2) Ramos gles vaccine (1 of 2) [facility] Start: 2020 SHINGRIX VACCINE (1 of 2) RAMOS GRIX VACCINE (1 of 2) [facility] Start: 2020 Zoster Vaccines (1 of 2) Zoster Vacc william (1 of 2) [facility] Start: 2020 [facility] Start: 09-10-2019 Lipid 1996 panel - S gege or Plasma Lipid Screening [facility] Start: 09-10-2019 Lipid panel Lipid Screening [facility] Start: 09-10-2019 LIPID SCREEN LIPID SCREEN [facility] Start: 10-21-2015 COLOGUARD (FIT-DNA) COLOGUARD (FIT-D NA) [facility] Start: 10-21-2015 Colonoscopy COLONOSCOPY [facility] Start: 10-21-2015 COLORECTAL CANCER SCREENING COLORECTAL CANCER SCREENING [facility] Start: 10-21-[address] COLONOGRAPHY [facility] Start: 10-21-2015 FECAL OCCULT BLOOD FECAL OCCULT BLOO D [facility] Start: 10-21-2015 Screening for malign ant neoplasm of colon [facility] Start: 10-21-2015 SIGMOIDOSCOPY SIGMOIDOSCOPY [facility] Start: 02-22-2015 PNEUMOCOCCAL (2 - PCV) PNEUMOCOCCAL (2 - PCV) [facility] Start: 02-22-2015 Pneumococcal 0-64 ye ars Vaccine (2 - PCV) Pneumococcal 0-64 years Vaccine (2 - PCV) [facility] Start: 02-22-2015 Pneumococcal vaccination [facility] Start: 02-22-2015 Pneumococcal Vaccine : 50+ (2 of 2 - PCV) Pneumococcal Vaccine: 50+ (2 of 2 - PCV) [facility] Start: 02-22-2015 Pneumococcal Vaccine : Pediatrics (0 to 5 Years) and At-Risk Patients (6 to 64 Years) (2 - PCV) Pneumococcal Vaccine: Pediatrics (0 to 5 Years) and At-Risk Patients (6 to 64 Years) (2 - PCV) [facility] Start: 02-22-2015 [facility] Start: 2010 Lipid panel Lipids [facility] Start: 1989 Hepatitis B Vaccine (1 of 3 - 19+ 3-dose series) Hepatitis B Vaccine (1 of 3 - 19+ 3-dose series) [facility] Start: 1988 Anxiety Screening Anxiety Screening [facility] Start: 1988 Depression Screening Depression Scre ing [facility] Start: 1988 Diabetes mellitus screening Diabetes Screening [facility] Start: 1988 Hepatitis C screening [facility] Start: 1985 HIV screening HIV screen [facility] Start: 1982 Depression Screen Depression Screen [facility] Start: 1982 Depression Screening Depression Scre ening [facility] Start: 1982 [facility] Start: 10-21-1975 COVID-19 Vaccine (1) COVID-19 Vaccin e (1) [facility] Start: 10-21-1971 MMR Vaccines (1 of 1 - Standard series) MMR Vaccines (1 of 1 - Standard series) [facility] Start: 10-21-1971 [facility] Start: 04-22-1971 COVID-19 Vaccine (#1) COVID-19 Vacci ne (#1) [facility] Start: 04-22-1971 [facility] Start: 1970 HEPATITIS B (1 of 3 - 3-dose series) HEPATITIS B (1 of 3 - 3-dose series) [facility] Start: 1970 Hepatitis B Vaccine (1 of 3 - 3-dose series) Hepatitis B Vaccine (1 of 3 - 3-dose series) [facility] Start: 1970 Hepatitis B Vaccines (1 of 3 - 3-dose series) Hepatitis B Vaccines (1 of 3 - 3-dose series) [facility] Start: 1970 HIV screening [facility] Start: 1970 Lipid panel [facility] Start: 1970 Screening for malign ant neoplasm of colon [facility] Start: 1970 [facility] Acapella Acapella Respira tory Care Routine Daily until discontinued starting 07/06/2021 [facility] Work Phone: Comment on above: Daily until disconti nued starting 07/06/2021 End: 08-11-2023 ALLOGEN SOT REC RPT [facility] Comment on above: ONCE for 1 Occurrenc es starting 08/11/2023 until 08/11/2023 End: 01-26-2023 Blood gases, arterial measurement [facility] Work Phone: End: 01-27-2023 Blood gases, arterial measurement [facility] End: 01-28-2023 Blood gases, arterial measurement [facility] End: 10-06-2023 Ct thorax w/o contrast material CT CHEST WO IVCON Radiology Routine Stage 4 very severe COPD by GOLD classification (HCC) Centrilobular emphysema (HCC) Abnormal CT scan, lung SOB (shortness of breath) 1 Occurrences starting 09/06/2022 until 10/06/2023 [facility] Work Phone: Comment on above: 1 Occurrences starti ng 09/06/2022 until 10/06/2023 End: 09-07-2023 ECG COMPLETE ECG COMPLETE ECG Routine Stage 4 very severe COPD by GOLD classification (HCC) Centrilobular emphysema (HCC) Abnormal CT scan, lung SOB (shortness of breath) 1 Occurrences starting 09/06/2022 until 09/07/2023 [facility] Work Phone: Comment on above: 1 Occurrences starti ng 09/06/2022 until 09/07/2023 ECG COMPLETE ECG COMPLETE ECG 09/06/2022 3:28 PM EDT [facility] End: 09-07-2023 Echocardiography ECHO Cardiology Routine Stage 4 very severe COPD by GOLD classification (HCC) Centrilobular emphysema (HCC) Abnormal CT scan, lung SOB (shortness of breath) 1 Occurrences starting 09/06/2022 until 09/07/2023 [facility] Work Phone: Comment on above: 1 Occurrences starti ng 09/06/2022 until 09/07/2023 End: 02-19-2024 Echocardiography ECHO Cardiology Routine Stage 4 very severe COPD by GOLD classification (HCC) Cardiac murmur, previously undiagnosed 1 Occurrences starting 02/18/2023 until 02/19/2024 [facility] Work Phone: Comment on above: 1 Occurrences starti ng 02/18/2023 until 02/19/2024 hemoglobin determination [facility] Gliadin peptide IgA Ab [Units/volume] in Serum [facility] Gliadin peptide IgG Ab [Units/volume] in Serum [facility] Hemoglobin A measurement [facility] Hemoglobin A2 measurement [facility] Hemoglobin C measurement [facility] Hemoglobin S [Presen ce] in Blood [facility] Hemoglobin S/Hemoglobin.total in Blood [facility] Hemoglobin variant test [facility] End: 08-15-2022 LUNG DIFFUSION CAPACITY (DLCO) LUNG DIFFUSION CAPACITY (DLCO) PFT Routine Stage 4 very severe COPD by GOLD classification (HCC) 1 Occurrences starting 07/16/2021 until 08/15/2022 [facility] Work Phone: Comment on above: 1 Occurrences starti ng 07/16/2021 until 08/15/2022 End: 10-06-2023 LUNG DIFFUSION CAPACITY (DLCO) LUNG DIFFUSION CAPACITY (DLCO) PFT Routine Stage 4 very severe COPD by GOLD classification ([facility]) Centrilobular emphysema ([facility]) Abnormal CT scan, lung SOB (shortness of breath) 1 Occurrences starting 09/06/2022 until 10/06/2023 [facility] Work Phone: Comment on above: 1 Occurrences starti ng 09/06/2022 until 10/06/2023 End: 03-19-2024 LUNG DIFFUSION CAPACITY (DLCO) LUNG DIFFUSION CAPACITY (DLCO) PFT Routine Stage 4 very severe COPD by GOLD classification ([facility]) 1 Occurrences starting 02/18/2023 until 03/19/2024 [facility] Work Phone: Comment on above: 1 Occurrences starti ng 02/18/2023 until 03/19/2024 End: 08-15-2022 LUNG VOLUMES LUNG VOLUMES PFT Routine Stage 4 very severe COPD by GOLD classification ([facility]) 1 Occurrences starting 07/16/2021 until 08/15/2022 [facility] Work Phone: Comment on above: 1 Occurrences starti ng 07/16/2021 until 08/15/2022 Measurement of immunoglobulin A in serum specimen [facility] Oxygen therapy [[facility] Data Set] Initiate Oxygen Therapy Protocol Respiratory Care Routine As Needed until discontinued starting 07/02/2021 [facility] Comment on above: As Needed until disc ontinued starting 07/02/2021 Patient Education [facility] Work Phone: Patient referral [facility] Work Phone: End: 10-06-2023 Radex spine lumbosacral 2/3 views XR LUMBAR GENERAL 3V AP/LAT/L5-S1 Radiology Routine Acute bilateral low back pain with bilateral sciatica 1 Occurrences starting 09/06/2022 until 10/06/2023 [facility] Work Phone: Comment on above: 1 Occurrences starti ng 09/06/2022 until 10/06/2023 End: 10-06-2023 SPIROMETRY - BASELINE AND POST DILATOR SPIROMETRY - BASELINE AND POST DILATOR PFT Routine Stage 4 very severe COPD by GOLD classification ([facility]) Centrilobular emphysema ([facility]) Abnormal CT scan, lung SOB (shortness of breath) 1 Occurrences starting 09/06/2022 until 10/06/2023 [facility] Work Phone: Comment on above: 1 Occurrences starti ng 09/06/2022 until 10/06/2023 End: 03-19-2024 SPIROMETRY - BASELINE AND POST DILATOR SPIROMETRY - BASELINE AND POST DILATOR PFT Routine Stage 4 very severe COPD by GOLD classification ([facility]) 1 Occurrences starting 02/18/2023 until 03/19/2024 [facility] Work Phone: Comment on above: 1 Occurrences starti ng 02/18/2023 until 03/19/2024 Spirometry panel Incentive trevin metry Respiratory Care Routine Daily until discontinued starting 07/02/2021 [facility] Work Phone: Comment on above: Daily until disconti nued starting 07/02/2021 SPIROMETRY WITH DILA TOR IF OBSTRUCTED SPIROMETRY WITH DILATOR IF OBSTRUCTED PFT Routine COPD, severe (HCC) 07/16/2021 3:43 PM EDT [facility] Work Phone: End: 07-10-2021 Surgical Pathology [facility] Work Phone: Comment on above: Once for 1 Occurrenc es starting 07/10/2021 until 07/10/2021 Tissue transglutamin ase IgA Ab [Units/volume] in Serum [facility] Tissue transglutamin ase IgG Ab [Units/volume] in Serum [facility] Immunizations Immunization Date Immunization Notes Care Provider Johnnie flowers 07-31-2024 pneumococcal Conjuga te, unspecified formulation Antwan Buchanan DO Work Phone: [facility] 07-31-2024 pneumococcal conjuga te (PCV20) vaccine, 20 valent (PREVNAR 20) Antwan Buchanan DO Work Phone: [facility] 09-06-2017 tetanus toxoid, redu jason diphtheria toxoid, and acellular pertussis vaccine, adsorbed Ct (I-Stat) Work Phone: [facility] Work Phone: 12-05-2014 influenza, injectabl e, quadrivalent, contains preservative Ct (I-Stat) Work Phone: [facility] 12-05-2014 influenza virus vacc ine, unspecified formulation Tony Figueroa DO Work Phone: [facility] 02-22-2014 pneumococcal polysaccharide vaccine, [address] (I-Stat) Work Phone: [facility] 11-13-2003 diphtheria and tetan us toxoids, adsorbed for pediatric use Ct (I-Stat) Work Phone: [facility] Work Phone: Payers Date Payer Category Payer Self-pay [id number] 2014 Unknown [id number] 2014 Unknown [id number] 2007 Medicaid [employer] [facility] MEDICAID [id number] 2007-Present [phone] [address] [place] [address] Medicaid [id number] 2007 Medicaid [id number] Unknown [id number] Unknown [id number] Unknown [id number] Unknown [id number] Unknown [id number] Unknown [id number] Unknown [id number] Unknown [id number] Unknown [id number] Social History Date Type Detail Facility Start: 04-28-1993 End: 04-28-2013 Tobacco smoking status MDIS Smokes tobacco daily [facility] Work Phone: Start: 08-13-1991 End: 08-12-2021 History of tobacco use Cigarette Smoker [facility] Work Phone: Start: 03-02-2018 End: 05-10-2023 Cigarettes smoked current (pack per day) - Reported 1 [facility] Start: 03-02-2018 End: 04-06-2024 Tobacco use and exposure User of smokeless tobacco [facility] Work Phone: History of tobacco use Snuff User [facility] Work Phone: Start: 06-10-2021 End: 07-31-2024 Alcohol intake Current drinker of alcohol (finding) [facility] Start: 02-16-2021 End: 09-05-2022 History SDOH Alcohol Frequency 3 [facility] Start: 02-16-2021 End: 09-05-2022 History SDOH Alcohol Std Drinks 1 [facility] Start: 02-16-2021 End: 09-05-2022 History SDOH Alcohol Binge 2 [facility] Start: 02-16-2021 End: 09-05-2022 History SDOH Social Connections Phone 5 [facility] Start: 02-16-2021 End: 09-05-2022 History SDOH Social Connections Get Together 98 [facility] Start: 02-16-2021 End: 09-05-2022 History SDOH Stress 4 [facility] Start: 03-02-2018 Tobacco Comment a few cigs a day [facility] Start: 1970 Sex Assigned At Not on file [facility] Start: 08-04-2020 End: 12-04-2022 Exposure to SARS-CoV-2 (event) Not sure [facility] Work Phone: Start: 10-02-2019 End: 04-06-2024 Tobacco smoking status Ex-smoker (finding) [facility] Start: 02-13-2012 Tobacco smoking status Smokeless tobacco user within last 30 days [facility] Sex Assigned At Sex [facility] Start: 04-04-2021 End: 11-27-2022 Tobacco use and exposure Former smokeless tobacco user [facility] Work Phone: End: 06-24-2021 History of tobacco use Chews Tobacco [facility] Work Phone: Start: 04-04-2021 History SDOH Alcohol Comment Occasionally [facility] Work Phone: Start: 08-13-1991 End: 08-12-2021 History of tobacco use Current smoker [facility] Work Phone: Start: 07-16-2021 End: 02-18-2023 Tobacco Comment a few cigs a day. 2 ppd in past [facility] Start: 08-15-2021 End: 04-29-2023 Tobacco smoking status NHIS Unknown if ever smoked [facility] Start: 11-19-2014 None [facility] Start: 11-19-2014 Alone [facility] Start: 11-19-2014 Cigarettes [facility] Start: 1970 Sex Assigned At Male [facility] Start: 09-05-2022 End: 05-10-2023 Social connection and isolation panel [facility] Do you belong to any clubs or organizations such as holiness groups, unions, fraternal or athletic groups, or school groups? No [facility] Are you now , , , , never or living with a partner? Refused [facility] How often to you hav e a drink containing alcohol? Monthly or less [facility] How many standard dr inks containing alcohol do you have on a typical day? 1 or 2 [facility] How often do you hav e 6 or more drinks on 1 occasion? Never [facility] How hard is it for y ou to pay for the very basics like food, housing, medical care, and heating Not very hard [facility] Do you feel stress - tense, restless, nervous, or anxious, or unable to sleep at night because your mind is troubled all the time - these days [OSQ] Only a little [facility] (I/We) worried wheth er (my/our) food would run out before (I/we) got money to buy more. Never true [facility] Start: 03-01-2023 Tobacco Comment 2 ppd in past [facility] Medical Equipment Procedure Code Equipment Code Equipment Origin al Text Equipment Identifier Dates Tube 76mm 6.4mm 10.8mm Lp [facility] - [id number] Start: 07-02-2014 Goals Date Patient Goal Desired Activity /State Functional Status Date Assessment Result Facility 11-14-2022 Functional status Ambulates [facility] Work Phone: 08-17-2021 Functional status Up ad lien [facility] Work Phone: 08-01-2021 [facility] Status Estefania [facility] 09-14-2014 Are you deaf, or do you have serious difficulty hearing No 09/14/2014 12:05 PM Cuco Jay RN No [facility] 09-14-2014 Are you blind, or do you have serious difficulty seeing, even when wearing glasses No 09/14/2014 12:05 PM Cuco Jay RN No [facility] 09-14-2014 Do you have serious difficulty walking or climbing stairs No 09/14/2014 12:05 PM Cuco Jay RN No [facility] 09-14-2014 Do you have difficul ty dressing or bathing No 09/14/2014 12:05 PM Cuco Jay RN No [facility] 09-14-2014 Because of a physica l, mental, or emotional condition, do you have difficulty doing errands alone such as visiting a physician's office or shopping No 09/14/2014 12:05 PM Cuco Jay RN No [facility] Mental Status Date Assessment Result Facility 11-14-2022 Cognitive function Voice/Name [facility] Work Phone: 08-17-2021 Cognitive function Appropriate;[facility] Work Phone: 08-01-2021 Mental Status [facility] 07-17-2021 Mental Status [facility] 06-21-2021 Mental Status [facility] 06-20-2021 Mental Status [facility] 09-14-2014 Because of a physica l, mental, or emotional condition, do you have serious difficulty concentrating, remembering, or making decisions No 09/14/2014 12:05 PM Cuco Jay RN No [facility] Clinical Notes 09-09-2014 to 10-22-2024 Telephone Encounter [...] Hughes LPN October 22, 2024 9:09 AM [facility] 10-22-2024 Miscellaneous Notes Prescription Refill Information The [...] you. Fay Vergara. documented in this encounter [facility] 10-22-2024 Telephone encounter Note Patient has been [...] found Please advise. Thank you. Fay Vergara. [facility] 08-06-2024 Note Patient Outreach ([facility] LMMN) CALL,LUIS Christie II ([id number]) 1970 M Date Time Provider Department 08/06/24 [...] abuse [Z72.0] Order(s):CONSULT LUNG CANCER SCREENING CLINIC [[id number]] Order #: [id number]: 1 FUTURE Prescriptions as of 08/09/2024 - [...] 08/02/2023 Lung nodule < 6cm on CT [[id number]] 05/2021 Pneumothorax [J93.9] 02/18/2023 Stage 4 very severe COPD by GOLD classification*02/18/2023 Fatigue [R53.83] 02/18/2023 Preoperative respiratory examination [Z01.811] 08/02/2023 Encounter Status:Closed by EPIC, PRODUSER on 08/09/24 [facility] 08-01-2024 Telephone encounter Note Got a hold of providers nurse Mendosa and she said provider had seen message. Let her know they would like a call back as soon as possible. She said she would let provider know. Dayami El RN [facility] 08-01-2024 Miscellaneous Notes Got a hold of providers nurse [place] and she said provider had seen message. Let her know they would like a call back as soon as possible. She said she would let provider know. Dayami El RN Arianna with [facility] Lung Transplant [facility] called in and states Pt was referred [...] to give the provider her mobile # [phone] to call back. Dayami El RN documented in this encounter [facility] 07-31-2024 Telephone encounter Note Arianna with [facility] Lung Transplant [facility] called in and states Pt was referred [...] to give the provider her mobile # [phone] to call back. Dayami El RN [facility] 07-31-2024 Note HNO ID: [id number] Author: ANTWAN BUCHANAN, DO Service: ? Author [...] 12/2013 Diverticulosis Gastric ulcer 02/03/2018 per endoscopy [place] Estefania Hyperlipemia 08/2013 Low HDL (under 40) [...] Age of Onset Allergies Mother Heart Mother SC Stroke Mother Liver Cancer Mother Lung Cancer [...] need for follow up and mgmt per Health Coordinator and transplant lung team for opinion regarding transplant of lungs 2. Vitamin D deficiency - ICD9: 268.9, ICD10: E55.9 Continue supplement 3. Chronic obstructive pulmonary disease, unspecified COPD type (HCC) - ICD9: 496, ICD10 (more content not included)... [facility] 07-31-2024 History of Present illness Narrative [...] 12/2013 Diverticulosis G[facility]03[facility] Hyperlipemia 08/2013 Low HDL (under 40) 08/2013 Lung nodule < 6cm on CT 05/[address] 05/2022 MRSA pneumonia (HCC) 2014 hospitalized, intubated, pressors Pancreatitis (HCC) Spontaneous pneumothorax TIA (transient ischemic attack) 1994 Pt. reports Tobacco abuse PAST SURGICAL HISTORY Procedure Laterality Date CENTRAL LINE 06/14/2014 COLONOSCOPY FLX DX W/COLLJ SPEC WHEN PFRMD 2012 EGD 02/02/2018 [place]. Hp-, mild chronic gastritis PAST SURGICAL HISTORY [...] Age of Onset Allergies Mother Heart Mother SC Stroke Mother Liver Cancer Mother Lung Cancer [...] need for follow up and mgmt per Health Coordinator and transplant lung team for opinion regarding transplant of lungs 2. Vitamin D deficiency - ICD9: 268.9, ICD10: E55.9 Continue supplement 3. Chronic obstructive pulmonary disease, unspecified COPD type (HCC) - ICD9: 496, ICD10: J44.9 Symptoms are Secondary to stage 4 COPD, need for follow up and mgmt per Health Coordinator and transplant lung team for opinion regarding transplant of lungs - CONSULT TO TRANSPLANT CENTER 4. EDI (generalized anxiety disorder) - ICD9: 300.02, ICD10: F41.1 Stable, chronic 5. Stage 4 very severe COPD by GOLD classification (HCC) - ICD9: 496, ICD10: J44.9 Symptoms are Secondary to stage 4 COPD, need for follow up and mgmt per Health Coordinator and transplant lung team for opinion regarding [...] agreed with the plan. Antwan Buchanan DO [address] [place] [address] documented in this encounter [facility] 06-15-2024 Telephone encounter Note JOSEPH 03/01/23 PSS Team- please offer patient a follow up appointment. Patient phones requesting refills as follows: Requested Prescriptions Pending Prescriptions Disp Refills ADVAIR HFA 230-21 mcg/actuation inhaler [Pharmacy Med Name: ADVAIR HFA 230-21 MCG INHALER] 12 each 9 Sig: INHALE 2 PUFFS TWICE DAILY DIRECTED Please review and advise. Lesa Ramey LPN [facility] 06-15-2024 Miscellaneous Notes JOSEPH 03/01/23 PSS Team- please offer patient a follow up appointment. Patient phones requesting refills as follows: Requested Prescriptions Pending Prescriptions Disp Refills ADVAIR HFA 230-21 mcg/actuation inhaler [Pharmacy Med Name: ADVAIR HFA 230-21 MCG INHALER] 12 each 9 Sig: INHALE 2 PUFFS TWICE DAILY DIRECTED Please review and advise. Lesa Ramey LPN documented in this encounter [facility] 04-09-2024 Telephone encounter Note See refill encounter [facility] 04-09-2024 Miscellaneous Notes See refill encounter documented in this encounter [facility] 04-09-2024 Telephone encounter Note Images from the original note were not included. Stanley Steele II Famchantel My Chart Rx Pool I need a reup on my sertraline [facility] 04-09-2024 Miscellaneous Notes Images from the original note were not included. Stanley Steele II Wstr Famp My Chart Rx Pool I need a reup on my sertraline documented in this encounter [facility] 04-06-2024 Note HNO ID: [id number] Author: NAYANA RICKS RPFT Service: ? Author [...] April 06, 2024 TIME: 2:28 PM Comment: [facility] 04-06-2024 Procedure note Associated Ord er(s): [...] April 06, 2024 TIME: 2:28 PM Comment: [facility] 04-06-2024 Procedure note Associated Ord er(s): OXIMETRY [...] 2:28 PM Comment: documented in this encounter [facility] 04-06-2024 Note HNO ID: [id number] Author: NAYANA RICKS RPFT Service: ? Author Type: Respiratory Therapist Type: Progress Notes Filed: 04/06/2024 14:28 Note Text: PULM FUNCTION: Provider: Manuel Block MD Oximetry - Ambulation: 1 [facility] 04-06-2024 History of Present illness Narrative PULM FUNCTION: Provider: Manuel Block MD Oximetry - Ambulation: 1 documented in this encounter [facility] 03-30-2024 Telephone encounter Note JOSEPH 03/01/23. Recent admission to [facility] for exacerbation 03/14/24. Duplicate RX request [...] Please review and advise. Lesa Ramey LPN [facility] 03-30-2024 Miscellaneous Notes JOSEPH 03/01/23. Recent admission to [facility] for exacerbation 03/14/24. Duplicate RX request [...] Lesa Ramey LPN documented in this encounter [facility] 03-16-2024 Note [facility] Medical Records Department [address] [place] [address] Discharge Summary 03/16/24 1037 MR#: [id number] Acct: [id number] Name: LUIS STEELE II Rep #: [id number] : 1970 53 From: Sharita Rich MD PCP: Dr. Antwan Buchanan DO Status:DIS IN [id number] Prov[facility] Date of Admission: 03/14/24 Date of Discharge: 03/16/24 Primary Care Physician: Dr. 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 Patient seen and examined (more content not included)... [facility] 11-24-2023 Telephone encounter Note Spoke with Zoey at [facility] She said pt was due for a [...] Sams MA November 24, 2023 2:39 PM [facility] 11-24-2023 Miscellaneous Notes Spoke with Zoey at [facility]. She said pt was due for [...] 2023 2:39 PM documented in this encounter [facility] 08-22-2023 Note HNO ID: [id number] Author: MANUEL BLOCK MD Service: ? Author Type: Physician Type: Progress Notes Filed: 08/22/2023 05:28 Note Text: Received a staff message from Dr. Park, director of lung transplant, informing me that Mr. Steele will not be considered a candidate due to non-compliance. Smoking/vaping within the past 6 months, not showing up for appointments. Patient actually walked out of testing appointment. [facility] 08-22-2023 History of Present illness Narrative Received a staff message from Dr. Park, director of lung transplant, informing me that Mr. Steele will not be considered a candidate due to non-compliance. Smoking/vaping within the past 6 months, not showing up for appointments. Patient actually walked out of testing appointment. documented in this encounter [facility] 08-11-2023 Telephone encounter Note Called patient after [...] be rescheduled. Darcy Myers RN, BSN Pre-Lung Manufacturing Quality Manager [facility] 08-11-2023 Miscellaneous Notes Called patient after being [...] be rescheduled. Darcy Myers RN, BSN Pre-Lung Manufacturing Quality Manager documented in this encounter [facility] 08-11-2023 History of Present illness Narrative Radiology [...] PATIENT PRESENTS WITH AN IMPLANTABLE OR ATTACHED COMMISSARY PRODUCTION SUPERVISOR: No RADIOLOGY DEPARTMENT: CT; Exam(s) Completed: Chest PERIPHERAL IV DATA: Not applicable SIGNED BY: Gina Pineda August 11, 2023 8:32 AM documented in this encounter [facility] 08-10-2023 History of Present illness Narrative Images [...] Hc* Swelling Preferred Pharmacy e- [id number] [place] [address] - [address] [facility] - [phone] [place] [id number] Evaluation of current pharmacotherapy: Current Outpatient Rx [...] - Lung Transplant documented in this encounter [facility] 08-09-2023 History of Present illness Narrative Psychosocial Evaluation for Lung Transplant Patient: Luis Steele II Date Evaluated: August 09, 2023 Patient consents to participate in this psychosocial assessment for lung transplant candidacy. Patient chooses to include ___ son Stalin__in this assessment. IDENTIFYING INFORMATION - pt prefers to be called Stanley Age: [age] year old Diagnosis: COPD Accompanied by: son Stalin age 24 Distance from F:lives in [facility] 52 minutes from (by [facility] ) Present household includes: pt lives alone Physical environment of the home: apartment senior housing one floor living How long at current address: 3 years Any moves planned: no Any pets: no Cell phone:[phone] Emergency Contact cell phone: Stalin Call c: [phone] Appearance vs Stated Age: his age Relationship/Marital [...] current relationship: His daughter was killed in [facility] at age 18. Stalin spends a [...] ? RESIDENT STATUS: Race: White Ethnicity: - American Language Spoken: Montserratian [place] Citizen: yes If No, check which applies: Non-U.S.Citizen/U[place] Resident: Non-U.S[place] Resident, Traveled to [place] for Reason Other Than Transplant: If Yes, Year of Entry to U.[place].: Non-U.S. Citizen/Non-U.S. Resident, Traveled to U.[place] for Transplant: SOCIAL HISTORY Developmental History: Born: [facility] Raised: moved around many times ; raised mostly in [place] Raised by: bio mother and maternal aunt [...] kids and move; his father was a fence gate assembler and they drove all over with his [...] GED Patient can read, write, and understand Montserratian: yes Service: no Honorable discharge: n/a Legal History: yes juvenile: arrested for curfew violation and underage and under drinking and peeing on a endoscopy 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 adult: disorderly conduct, related to alcohol use and assaults and aggravated menacing in [facility] for 6 months for a shock program was scared straight last legal encounter in 2019 for setting off fireworks and drinking and fighting with neighbor, police were called and he was in correction for 8 hours then released He is not on probation or parole . 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 Currently Employed: no Date of Disability: [...] Driving: no due to his health Valid Shell Freezing Machine Operator's License: yes but does not have a [...] in 2017 he drank heavily at a democrat had 2 fifths of whiskey and had [...] >Guilt, Embarrassed: yes for peeing on the endoscopy 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 >Eye slag skimmer: no Previous alcohol treatment:(includes times, dates): none Has your doctor ever requested you to stop drinking?:yes was cautioned to not overdue it Family Substance Abuse/Dependency History: maternal aunt and father drank heavily FINANCIAL & INSURANCE HISTORY Sources of Income: [facility] Health Insurance: [employer] Medicaid Prescription coverage: [employer] [...] son Social Support System for Transplant: Primary account executive healthcare: son Stalin Secondary care partners: Stalin's fiance Christian , pt's friend Joel Harris Additional social supports: friend Aure Relationship stability: yes ADVANCE DIRECTIVES Power of Continuous Process Machine Operator for Health Care: no Living Will: no Copy obtained: n/a Advance Directive documents given: yes Education provided regarding the following: transplant evaluation process, hospital recovery with potential for complications and extended stay , 6-8 week relocation and account executive healthcare requirement, 3 year follow up commitment to the . The following educational information was provided: the account executive healthcare letter, lung transplant check sheet for readiness, post-transplant medication list, fundraising information, lodging information. Patient and account executive healthcare were advised to check insurance for co-pays on the transplant medications and for any lodging coverage. Patient and account executive healthcare were advised to read the website: www.[email or web address].org , sign-in: lung or the patient/caregiver education binders. Patient and account executive healthcare were advised of the psychosocial and financial risks associated with transplant. Patient and account executive healthcare expressed understanding of information discussed. IMPRESSIONS Social Support: Pt was seen for a lung transplant evaluation for COPD. He arrived in a w/c on 5 L of oxygen. He wanted his son Stalin included in this assessment. Pt lives alone in a senior apartment in [facility] under one hour from . He is [...] his life. 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 He has SSI income. His housing /rent is subsidized.He has stable housing and has no plans to move. He is on [facility] Medicaid which covers his prescriptions and medical [...] in 2016 when he was at a democrat and drank 2 fifths and was sent [...] for emotional support. He walks at the [employer] for exercise with a friend and finds [...] Cat KEVIN-S CCTSW documented in this encounter [facility] 06-27-2023 Miscellaneous Notes Returned Stanley's call. Answered questions regarding his evaluation. He would like to have his appointments scheduled for sometime after early July. Will send message to schedulers. Darcy Myers RN, BSN Pre-Lung Manufacturing Quality Manager Luis Christie Call II called in regards to his evaluation appointments that he had to cancel due to a family emergency. Patient is requesting a return call from the patient access coordinator. Please call Stanley at [phone]. documented in this encounter [facility] 06-13-2023 Miscellaneous Notes Reached out to referring doctor regarding this patient as multiple attempts have been made to contact patient without success. Will await to hear from referring provider. Rebeka De Santiago RN, BSN Pre-Lung Manufacturing Quality Manager Summary: unable to schedule Tried calling patient and contacts several times, unable to complete scheduling documented in this encounter [facility] 06-06-2023 Miscellaneous Notes Attempted to reach Stanley after he did not show up to today's appointments. Left VM requesting a call back. Darcy Myers RN, BSN Pre-Lung Manufacturing Quality Manager documented in this encounter [facility] 05-31-2023 History of Present illness Narrative Intro [...] hypertension, diabetes, kidney problems and cancers) and usp follow up after transplant. * The surgical [...] REFERRAL (RECOMMENDATION): None Rosario Thrasher RN,BSN Lung Manufacturing Quality Manager documented in this encounter [facility] 05-24-2023 Miscellaneous Notes Called patient to confirm that they will be attending their lung transplant evaluation next week. - Confirmed that they have [employer] access and Zoom downloaded - Confirmed that they were able to review their upcoming schedule - Remind them they need to bring their own oxygen. We will supply while here in the hospital. - Confirm they received [employer] message with link & password for Educational [...] son will be traveling with him to [place]. Patient states that he doesn't drive. He has read the educational material. He needs to have 6-7 teeth extracted but his local dentist will not remove them due to his issues with his lungs. Colonoscopy report is scanned into [employer] under scanned docs. He did have questions about diet- notified him that he will be seeing Nutrition during evaluation. documented in this encounter [facility] 05-24-2023 Miscellaneous Notes Returned call to patient. All questions answered regarding pulm rehab. Online pulm rehab link sent via [employer]. Rebeka De Santiago RN, BSN Pre-Lung Manufacturing Quality Manager Pt's called to speak with his coordinator, [...] do. Raz Minaya documented in this encounter [facility] 05-02-2023 History and physical note Note Date/Time April 29, 2023 2:12pm [facility] Pulmonary Rehab Reports [address] [place] [address] [place] - History & Physical MR#: [id number] Acct: [id number] Name: LUIS STEELE II Rep #:[id number] : 1970 52 From: Jean Marie GAONA, [...] tabs 11/14/22 Allergies Allergies tramadol HCl [From [facility]] Allergy (Verified 11/12/22 14:41) Swelling codeine Adverse [...] months Advanced Directives Advanced Directives Power of Continuous Process Machine Operator: Yes Living Will: No Advance Directives Information [...] by Willam Esposito MD> Cosigner Signature: Date Wlilam Esposito MD CC: ~ Signed [facility] Work Phone: 1(129) 902-799002-13-2024 Miscellaneous Notes* Telephone Encounter - Rebeka De Santiago RN - 04/26/2023 4:17 PM EST Noted. * Telephone Encounter - Arianna Parker - 04/26/2023 3:53 PM EST [facility] records uploaded to patients Charts. [facility] History of Present illness Narrative* Inez Park [...] of the chest -12 lead EKG -Echocardiogram -Manager Acute evaluation -Social Work Evaluation -History and Physical per pulmonary medicine Dr. Niño 05/30/2023 Dx COPD - Specific testing needed in addition : rashaad, carotids Inez Park DO [facility] Miscellaneous Notes* Telephone Encounter - Rebeka De Santiago RN - 04/18/2023 11:54 AM EST Message sent to APC to complete referral intake. Rebeka De Santiago RN, BSN Pre-Lung Manufacturing Quality Manager * Telephone Encounter - Lucila Herman - 04/18/2023 11:21 AM EST Patient returning Rebeka's call. Call back number is [phone] Lucila Herman Administrative Farm Consultant [facility] Miscellaneous Notes* Telephone Encounter - Arianna Parker - 04/18/2023 11:41 AM EST REFERRAL FOR LUNG TRANSPLANT Dx:COPD/Emphysema Referring Physician: Manuel Block MD MyCHART Is the patient signed up for [employer]? Yes If YES - send patient the Lung Transplant New Referral Message w/ link to website If NO - obtain their e-mail address AND send [employer] sign up information: email address: [email or web address] How long does it take you to [...] please proceed and after completion refer to patient access coordinator if needed. Have you ever been [...] turned down letter for the Lung Transplant Low Altitude Air Defense Officer to review. Is this referral related to a workman's compensation ([employer]) issue/claim? No. 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 [facility]? FC will need to be alerted if known. Outside Records/Images Needed: Yes Where are outside records being requested from: [facility] ,[facility] and [employer] Requested? Yes A Txp Coord will call for medical intake; What is the best phone number for the Txp Coord to contact you? [phone] Additional Information: N/A [facility] Miscellaneous Notes* Telephone Encounter - Rebeka De [...] him. Rebeka De Santiago RN, BSN Pre-Lung Manufacturing Quality Manager * Telephone Encounter - Rebeka De Santiago RN - 04/18/2023 10:48 AM EST I attempted to reach patient again on his home number listed x2. Got message both times that call was unable to be completed due to number being not in service. Will attempt emergency contact. Rebeka De Santiago RN, BSN Pre-Lung Manufacturing Quality Manager * Telephone Encounter - Rebeka De Santiago RN - 04/18/2023 10:47 AM EST Attempted to contact patient as our intake team has been unsuccessful at reaching him. I called mobile number listed but was unable to speak with him and unable to leave a message as his voicemail isfull. Rebeka De Santiago RN, BSN Pre-Lung Manufacturing Quality Manager [facility] History of Present illness Narrative* Antwan Buchanan, DO - 02/18/2023 5:27 PM EST CC: Luis Steele II is a 52 year old male who presents to the office for follow up HPI: He was recently hospitalized on Dec 26 when he presented to [facility] and was suddenly very short of breath. Son had squad called and he was found to have a Pneumothorax. He was intubated and chest tube was placed. The tube was dislodged after 2 days and fell out. About 8 hours latera he was reintubated and another chest tube placed. He spent several days at [facility] when he was transported. He has not smoked for the last 12-18 months He has severe stage 4 COPD. Has been told that he needs to consider lung transplant by hospitalist. He hasn't had recent PFTs or DLCO and hasn't recently been seen by Health Coordinator. + severe fatigue since he has been hospitalized. Feels it is worse than my normal. No obvious specific areas of bleeding or other symptoms. Has chronic severe dyspnea and cough PAST MEDICAL HISTORY Diagnosis Date Blood type B+ Calculus of kidney chronic--had had stent placed COPD, severe (HCC) 12/2013 Diverticulosis Gastric ulcer 02/03/[address] [facility] Hyperlipemia 08/2013 Low HDL (under 40) 08/2013 Lung nodule < 6cm on CT 05/[address] 05/2022 MRSA pneumonia (HCC) 2014 hospitalized, intubated, pressors Pancreatitis TIA (transient ischemic attack) 1994 Pt. reports Tobacco abuse PAST SURGICAL HISTORY Procedure Laterality Date CENTRAL LINE 06/14/2014 COLONOSCOPY FLX DX W/COLLJ SPEC WHEN PFRMD 2012 EGD 02/02/2018 [facility]. Hp-, mild chronic gastritis PAST SURGICAL [...] ICD9: 496, ICD10: J44.9 - f/u with Health Coordinator for opinion and need for lung testing [...] plan. See patient instructions. Antwan Buchanan DO [address] [place] [address] [facility]11[facility]28[facility]2023 Hospital course Narrative* Glen Mike MD - [...] a 52 y.o. male who presented to [place] ED on 01/26/23 for severe respiratory distress and hypoxia. CXR showed large left-sided pneumothorax. Patient was intubated in ED and then left-sided chest tube placed. Patient was then admitted/transferred to [facility] ICU. Chest tube was inadvertently dislodged on 01/27, but CXR stable. Patient was extubated to [facility] on 01/28. However, on 01/29,patient with worsening subcutaneous emphysema to neck/shoulders as well as worsening hypoxemia, so he was re-intubated. STAT CT chest (01/29) showed stable small left-sided pneumothorax (approximately 15 percent), pneumomediastinum, and bilateral neck and chest subcutaneous emphysema. There was concern for pleuro-subcutaneous fistula air tracking into it, so urgent CT surgery consult obtained anddecision was made to transfer patient to [facility] with further surgical intervention for potential airway injury to be considered after transfer to [facility]. At [facility], subcutaneous emphysema noted to have stabilized [...] Your Medications These medications were sent to [facility] [address] [facility] [address] Hours: Tuesday to Tuesday 10 am to 6 pm Advair HFA 230-21 MCG/ACT inhaler sertraline 100 MG tablet Ventolin HFA 108 (90 Base) MCG/ACT inhaler Recommended Follow-up: Antwan Buchanan [address] [facility] [address] Complexity of Follow up: [] Moderate Complexity: follow up within 7-14 calendar days (91353) [x] Severe Complexity: follow up within 7 calendar days (01672) Follow up Testing, Pending results or Referrals [...] MD Division of Hospitalist Medicine Inpatient Medical Services/[facility] 02/08/2023, 9:28 PM documented in this [facility]11-28-2023 Miscellaneous Notes* Care Coordination - Unknown Case Management - 02/08/2023 1:41 PM EST Patient Choice Patient Name: LUIS STEELE Date of : 1970 All Providers Sent Referral Name: Jennifer Velazco [place] Address: [address] [place] [address] Name: Physician [facility] Address: [address], [facility] [address], [place] [address] Name: [facility] [employer] [facility] Phone: [phone] Address: [address] [place] [address] [address] [place] [address] Name: [facility] Phone: [phone] Address: [address] [facility] [place] [address] Name: [facility] Phone: [phone] Address: [address] [place] [address] Name: [facility] Address: [address] [facility] [address] [place] [address] Name: [facility] Phone: [phone] Address: [address] [place] [address] Name: [facility] Phone: [phone] Address: [address] [place] [address] Name: [facility] Address: [address], [address] [place] [address] Name: [facility] Central[facility] Intake Phone: [phone] Address: [address] [place] [address] Name: [facility] Phone: [phone] Address: [address] [facility] [place] [address] Name: Bernaberolando Benitez [facility] Address: [address] [place] [address] * Home Care - Joie Allison RN - 02/08/2023 1:26 PM EST Educated patient on Home Care and services available. Patient is agreeable to receiving home care services at this time. Patient was given choice of home care agencies available in the area and is agreeable to having referrals made with agencies that staff the patients service location. Referrals [facility] been [facility] via [facility] Liaison to discuss available agencies to accept [...] No GMLOS Documented * Care Coordination - KARSTEN Gutiérrez CNP - 02/07/2023 2:27 PM EST ICU Transfer Checklist Transfer Med Reconciliation (resume home meds if able, convert to PO if able) Complete Antibiotics (name, indication, duration, convert to PO if able) None Steroid (indication, duration, convert to PO if able) None Anticipated [place] Medications (ICU initiated) or Dose Changes and Indication No Permanently Discontinued Home Medications and Reason for medication contraindication No Emerson Catheter (please remove if able. Note: place DC order) No Central Line (please remove if able. Note: place DC order) No Transfer Discussed with: Dr. Nuha Oropeza [facility] and Dr. Mariluz Maynard ICU If additional [...] KUB ordered. IVABX. Discharge Planning: Home with [facility]. Awaiting PT/OT evals when patient appropriate and medical clearance. Will continue to follow with [facility]. Discharge Milestones and Delays Expected Date/Time: 02/07/2023 [...] for extubation today. Discharge Planning: Home with [facility] pending PTOT evals, medical progress and clearance. Will continue to follow with [facility]. Discharge Milestones and Delays Expected Date/Time: 02/07/2023 [...] be placed on suction before extubation. Notified director international of residual of about 450ml suctioned out [...] Care Management Progress Note Patient transferred to [facility] ICU with increasing emphysema and compromise of [...] injury to be considered after transfer to [facility]. Dr. Gerald Moncada of MICU at [facility] accepted the patient with Dr. Wong [...] injury from restraints (Restraint for Interference with Cardroom Drawing Runner) Outcome: Progressing Goal: Free from restraint(s) (Restraint for Interference with Cardroom Drawing Runner) Outcome: Progressing Problem: Knowledge Deficit Goal: Patient/family/caregiver [...] Blanton RN - 01/28/2023 2:44 PM EST Packaging Line Attendant following case for Discharge Needs. DME order for shower chair placed and [facility] notified. Waiting for PT/OT evals. * Care Coordination - MACI Malhotra - 01/28/2023 2:06 PM EST S/W, resource and referral TCC referred to see if patient has Waiver Services or would qualify for Waiver Service at home. I did call [facility], spoke with Resource Center who did look the patient up. [facility] ( not a MyCare plan) they do ot show the patient active with any Waiver Servicesat this time. I did make a referral to [facility] for assessment for Waiver. I did place this referral information on patient AVS. * Care Coordination - Aminata Arana RN - 01/28/2023 1:37 PM EST Care Managment Initial Assessment Date: 01/28/2023 Patient Name: Luis Steele : 1970 Patient Information Source of Information: Patient Name/Contact Information: STALIN CALL [phone] SON Cognition/Language: WFL - Within Functional Limits Permission given to speak with patient accounts receivable representative/caregiver as indicated: Yes Confirmation of Payer with patient/family: Yes [facility] [place]: No Confirmation of Primary Care Physician: Confirmed [...] expects to be discharged to: HOME WITH [facility] Discharge Planning Actions: Continue to follow Patient's [...] BR due to SOB. Is agreeable to [facility]. electrical experimental mechanic updated and is following. Did update [employer] that patient will need shower chair upon discharge. Refused need for BSC. Will need pt/ot evalsonce medically stable. Also states has difficulties performing household tasks. Denies having [facility] foster care case manager. Did request rn social work check to determine if patient qualifies or has any type of waiver services. Tentative discharge plan is home with home care when medically stable. Will need to monitor for additional oxygen requirements and obtain order for shower chair. . Aminata Arana RN * Care Coordination - Aminata Arana RN - 01/28/2023 8:23 AM EST Left [...] is greater than 50% documented in this [facility]11-28-2023 History of Present illness Narrative* Christy Siddiqi CCC-MANAGER LEARNING - 02/08/2023 10:59 AM EST Images from the original note were not included. Speech-Language Pathology SPEECH LANGUAGE PATHOLOGY [facility] Dysphagia Treatment Note Patient Name: Luis Steele [...] liquids. Plan & Recommendations Plan: Continue acute MANAGER LEARNING therapy per initial plan of care and [...] Expected End: 02/11/23 Resolved: 02/07/23 Therapy Time MANAGER LEARNING Individual Minutes Time In: 1029 Time Out: 1039 Minutes: 10 Christy Siddiqi CCC-MANAGER LEARNING * Maikel Brian, PT - 02/07/2023 10:47 AM EST Images from the original note were not included. PHYSICAL THERAPY [facility] Treatment Note Name/MRN: Luis Steele ([id number]) Date of : 1970 Age: 52 y.o. [...] original note were not included. OCCUPATIONAL THERAPY [facility] Initial Evaluation Name/MRN: Luis Steele ([id number]) Evaluation Date: 02/07/2023 Date of : 1970 [...] stomach 07/10/2021 Dysphagia 07/01/2021 Severe malnutrition (CMS/HCC) ([facility]) 07/10/2021 COPD with acute exacerbation ([facility]) 04/05/2021 COVID-19 04/04/2021 Medical Precautions: No active [...] Responsibilities: Independent Receives Help From: None Active Shell Freezing Machine Operator: Yes Prior Level of Function ADL Assistance: [...] of Care supervision is transferred to a [facility] Therapy Services Occupational Therapist. Goals and/or treatment plan was established in collaboration with patient/family/other representatives. * Dagmar Horne, MANAGER LEARNING - 02/07/2023 10:08 AM EST Images from the original note were not included. Speech-Language Pathology SPEECH LANGUAGE PATHOLOGY [facility] Dysphagia Treatment Note Patient Name: Luis Steele [...] per dysphagia plan of care. Continue acute MANAGER LEARNING therapy per initial plan of care and [...] Expected End: 02/11/23 Resolved: 02/07/23 Therapy Time MANAGER LEARNING Individual Minutes Time In: 0950 Time Out: [...] and former tobacco abuse who presented to [place] ED on 01/26/23 for severe respiratory distress and hypoxia. Left PTX on imaging. Intubated, Chest tube placed. Initially admitted to [facility]. Chest tube inadvertently dislodged on 01/27, CXR stable. Extubated 01/28 to HFNC. 01/29 worsening subcutaneous emphysema to neck/shoulders, worsening hypoxia, re-intubated. Transferred to [facility] for CTS eval. Improved CXR,CTS signed off. On 02/02- vomiting- workup revealing colonic stool burden, no ileus. 02/03- extubated to 6LNC. He has since been moving bowels. Stable on 5LNC. MANAGER LEARNING eval with MBS determined dysphagia, now on [...] Normal [] Scar/Lesion/Mass Inspection of teeth/lips/gums Dentition: [x][place] Teeth []Dentures Lips/Gums: [x]Intact []Lesion Present Mucosa: [][place] [x]Moist []Dry Neck: External Appearance Overall Appearance: [...] 16.4* ABGs: No results for input(s): PHART, DSY0RBJ, PO2ART, FON2EMS, SO2ART, T9WDNHHK in thelast 72 hours. Lactic Acid: No [...] bed to chair. Scheduled nebs Followed by MANAGER LEARNING, progress diet based on recs. Remains on dysphagia plan of care Resume home sertraline and wellbutrin Continue bowel regimen, Surgery team signed off, NGT out Replace, recheck Monitor H&H trends. Currently stable PT/OT. OOB to chair Diet per MANAGER LEARNING recs, monitor lytes, bowel regimen GI Prophylaxis: Pantoprazole PO DVT Prophylaxis: Lovenox 40 q 24hr - creatinine clearance >30 Disposition: Transfer to [facility] Discussed plan of care with Dr. Mariluz [...] former tobacco abuse who presen mariza to [place] ED on 01/26/23 for severe respiratory distress and hypoxia. CXR w/ L lower lateralPTX - intubated for severe/refractory hypoxia and respiratory distress despite NIV, 28Fr chest tubeplaced. Admitted to [facility] ICU. F/u CXR w/ resolution of PTX, [...] Concern for possible pluero-subcutaneous fistula. Transferred to [facility] ICU for further evaluation by CTS [...] erythromycin dc'd, Surgery signed off. Seen by MANAGER LEARNING, recommended MBS. Interval Events: Having BMs per [...] to easy to chew/thin liquid diet per MANAGER LEARNING recs (no straws). Tolerated eating lunch this [...] Normal [] Scar/Lesion/Mass Inspection of teeth/lips/gums Dentition: [][place] Teeth []Dentures Lips/Gums: [x]Intact []Lesion Present Mucosa: [x][place] []Moist []Dry Neck: External Appearance Overall Appearance: [...] 16.6* ABGs: Recent Labs 02/04/2329 PHART 7.380 CMI1STK 49.1* PO2ART 70.2* PGG5FWN 28.4* C9VQOUOV Nasal cannula Lactic Acid: No results for [...] to easy to chew/thin liquid diet per MANAGER LEARNING recs w/ meds in puree as tolerated -No straws, single sips of liquids, small sips/bites, double swallow, throat re-clear -MANAGER LEARNING following, continue speech therapy Hyperglycemia (resolved) 2/2 stress/steroids: -Hgb A1c 5.0 -Has not required insulin last 4 days, BGTs 70s-90s -D/c SSI, resume if BGTs uncontrolled once PO intake improving Tobacco use: -Nicotine replacement ordered -Cessation education prior to d/c Debility: -PT/OT FEN: -MBS: mild/mod dysphagia, decreased epiglottic deflection, trace vocal cord penetration -Advanced to easy to chew/thin liquid diet per MANAGER LEARNING recs w/ meds in puree as tolerated [...] General Surgery 02/05/23 11:18 AM Pager # [phone] This note may have been dictated using CipherCloud Practice Edition 2.6 and/or ePetWorld Voice Recognition Feature. The document was proofread; however, unrecognized voice recognition relations coordinator errors may be present. Associated attestation - [...] NGT ADAT - start with CLD (pending MANAGER LEARNING recs) Management: No acute surgical invention Recommend [...] Performing a medical appropriate exam and evaluation Mraia Anaya MD, FACS Division of Trauma Department of Surgery [facility] ~~~~~~~~~~~~~~~~~~~~~~~~~~~~~~~~~~~~~~~~~~~~~~~~~~~~~~~~~~~~~ This note may have been dictated using komoot Medical Practice Edition 2.6 and/or ePetWorld Voice Recognition Feature. The document was proofread; however, unrecognized voice recognition relations coordinator errors may be present. * Tali Leon, [facility]-MANAGER LEARNING - 02/05/2023 10:38 AM EST Images from the original note were not included. Speech-Language Pathology SPEECH LANGUAGE PATHOLOGY [facility] Bedside Swallow Evaluation Patient Name: Luis Steele [...] care Pt would benefit from skilled acute MANAGER LEARNING services to address oropharyngeal dysphagia. Frequency: 3 [...] stomach 07/10/2021 Dysphagia 07/01/2021 Severe malnutrition (CMS/HCC) ([facility]) 07/10/2021 COPD with acute exacerbation ([facility]) 04/05/2021 COVID-19 04/04/2021 History of Present Illness: [...] Start: 01/28/23 Expected End: 02/11/23 Therapy Time MANAGER LEARNING Individual Minutes Time In: 1016 Time Out: 1031 Minutes: 15 Tali Leon CCC-MANAGER LEARNING * Shelby Guerra MD - 02/05/2023 5:26 [...] GIB, nephrolithiasis. The patient presented to the [place] ED on 01/26/23 with severe respiratory distress and acute onchronic hypoxemia. Portable chest xray demonstrated left lower lateral pneumothorax and a 28Fr chest tube was placed by the ED staff. Due to severe hypoxemia the [facility]: no air [facility]; CT with [...] re-intubated, given an A-line, and sent to [facility] ICU. 01/30: Concern for pleuro-subcutaneous fistula [...] appetite. Puree dietand thin liquids ordered, per MANAGER LEARNING. MBS ordered, then advance diet as tolerated. [...] Normal [] Scar/Lesion/Mass Inspection of teeth/lips/gums Dentition: [x][place] Teeth []Dentures Lips/Gums: [x]Intact []Lesion Present Mucosa: [x][place] []Moist []Dry Neck: External Appearance Overall Appearance: [...] 02/03/23 0525 02/04/23 0030 PHART 7.387 7.380 [id number] 49.6* 49.1* PO2ART 74.1* 70.2* ZDE9AKK 29.1* 28.4* J3IBOMRR Vent Nasal cannula Lactic Acid: No results [...] history of GIB, nephrolithiasis who arrived at [facility] from [facility] for pleural subcutaneous fistula 2/2 chest tube following pneumothorax. Nearing baselineO2. Ileus improved. Plan: Neuro/psych: - Propofol and fentanyl off - CT head not indicated - Anxiety - Bupropion and Zoloft scheduled, Precedex gtt - Vistaril x2 and Ativan x1 on 02/02, Vistaril IM x1 on 02/04 - Seen by retail sales associate Cardio/hemodynamic: - Hemodynamically stable without vasopressors/inotropes - [...] PM EST I have personally performed a hczf-fo-yawp diagnostic evaluation on this patient on date of tohaqlz63/25/23. History, labs, imaging studies, and electronic medical record have been reviewed by me. This note documented by the [x]housekeeping room inspector []TAM reflects my history, exam, and medical [...] Normal [] Scar/Lesion/Mass Inspection of teeth/lips/gums Dentition: [x][place] Teeth []Dentures Lips/Gums: [x]Intact []Lesion Present Mucosa: [x][place] []Moist []Dry Neck: External Appearance Overall Appearance: [...] Koenig RCP - 02/04/2023 7:46 PM EST [facility] Respiratory Care Department Progress Note As part [...] 02/04/2023 4:00 PM EST Spiritual Care Note [facility] Palliative Care Patient Name:Luis Steele Chief [...] original note were not included. PHYSICAL THERAPY [facility] Initial Evaluation Name/MRN: Luis Steele ([id number]) Evaluation Date: 02/04/2023 Date of : 1970 Admission Date: 01/26/2023 2:45 PM Age: 52 y.o. Room/Bed: T2-201/T2-201 A Discharge Recommendation: Inpatient Rehab and Continue to assess pending progress Equipment Needed: TBD at next level of care Assessment IMPRESSION: Pt admitted to [facility] for L pneumothorax and COPD exacerbation. 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 Goals and/or [...] assess Fluid Accumulation: Mild Extremities (per flowsheet) Armored Car Driver Strength: Not Performed Nutrition Assessment: Pt is a 52 year old male with PMH that includes severe COPD (former smoker), chronic hypoxemic respiratory failure on 5LPM home O2, history of severe ARDS due to MRSA pneumonia and prolonged respiratory failure requiring tracheostomy in 2015 since decannulated, dysphagia, history of TIA, history ofGIB, nephrolithiasis who presented to [place] ED on 01/26/23 with severe respiratory distress andacute on chronic hypoxemia. CXR demonstrated left lower lateral pneumothorax and a 28Fr chest tube was placed by the ED staff. Due to severe hypoxemia the patient was intubated and admitted to the [facility] ICU. On 01/28 the patient was extubated to salter high flow 15 LPM. He then developed rapid neck and facial swelling so he was intubated emergently on 01/29 and transferred to [facility] for concern for pleural fistula. Pt [...] On: Kcal/kg Weight Used for Energy Requirements: Wilder Weight for Energy Calculation (kg): 78 kg Total Energy Requirements (kcals/day): 2234-0923 (25-30 kcal/kg IBW) Weight Used for Protein Requirements: Wilder Weight in Kg Used for Protein Requirements: [...] 171.7# 11/13/22) % Weight Change (Calculated): 15.2 Wilder Body Weight (lbs) (Calculated): 166 lbs Wilder Body Weight (Kg) (Calculated): 75 kg % Wilder Body Weight (Calculated): 113.2 % BMI (kg/m2) [...] Planning: Too soon to determine Candice Vergara RD,LD,[facility] Contact: *[phone] or Linebacker Chat * Anselmo Jauregui MD - 02/04/2023 [...] General Surgery 02/04/23 10:59 AM Pager # [phone] This note may have been dictated using komoot Medical Practice Edition 2.6 and/or ePetWorld Voice Recognition Feature. The document was proofread; however, unrecognized voice recognition relations coordinator errors may be present. Associated attestation - [...] FACS Division of Trauma Department of Surgery [facility] ~~~~~~~~~~~~~~~~~~~~~~~~~~~~~~~~~~~~~~~~~~~~~~~~~~~~~~~~~~~~~ This note may have been dictated using komoot Medical Practice Edition 2.6 and/or ePetWorld Voice Recognition Feature. The document was proofread; however, unrecognized voice recognition relations coordinator errors may be present. * Shelby Guerra [...] GIB, nephrolithiasis. The patient presented to the [place] ED on 01/26/23 with severe respiratory distress and acute onchronic hypoxemia. Portable chest xray demonstrated left lower lateral pneumothorax and a 28Fr chest tube was placed by the ED staff. Due to severe hypoxemia the [facility]: no air leak; CT with [...] re-intubated, given an A-line, and sent to [facility] ICU. 01/30: Concern for pleuro-subcutaneous fistula [...] Normal [] Scar/Lesion/Mass Inspection of teeth/lips/gums Dentition: [x][place] Teeth []Dentures Lips/Gums: [x]Intact []Lesion Present Mucosa: [x][place] []Moist []Dry Neck: External Appearance Overall Appearance: [...] 0525 02/04/23 0030 PHART 7.406 7.387 7.380 TRQ2FCB 49.2* 49.6* 49.1* PO2ART 67.2* 74.1* 70.2* KVH7OCV 30.2* 29.1* 28.4* V1PHXEHH ETT Vent Nasal cannula Lactic Acid: No [...] history of GIB, nephrolithiasis who arrived at [facility] from [facility] for pleural subcutaneous fistula 2/2 chest tube [...] PM EST I have personally performed a fcut-uc-kpsk diagnostic evaluation on this patient on date of xllghui75/24/23. History, labs, imaging studies, and electronic medical record have been reviewed by me. This note documented by the []housekeeping room inspector []TAM reflects my history, exam, and medical [...] Normal [] Scar/Lesion/Mass Inspection of teeth/lips/gums Dentition: [x][place] Teeth []Dentures Lips/Gums: [x]Intact []Lesion Present Mucosa: [x][place] []Moist []Dry Neck: External Appearance Overall Appearance: [...] 02/03/2023 11:00 AM EST Spiritual Care Note [facility] Palliative Care Patient Name:Luis Steele Chief Complaint: Chief Complaint Patient presents with Shortness of Breath Reason for visit: Merchandise Worker Consult Services Provided To:patient and care team Background and visit note: Conferred with Medical Team. Patent to be extubated. Patient is a Denominational and is anxious about extubation. Provided supportive [...] This note may have been dictated using komoot Medical Practice Edition 2.6 and/or ePetWorld Voice Recognition Feature. The document was proofread; however, unrecognized voice recognition relations coordinator errors may be present. Associated attestation - [...] FACS Division of Trauma Department of Surgery [facility] ~~~~~~~~~~~~~~~~~~~~~~~~~~~~~~~~~~~~~~~~~~~~~~~~~~~~~~~~~~~~~ This note may have been dictated using komoot Medical Practice Edition 2.6 and/or ePetWorld Voice Recognition Feature. The document was proofread; however, unrecognized voice recognition relations coordinator errors may be present. * Shelby Guerra [...] GIB, nephrolithiasis. The patient presented to the [place] ED on 01/26/23 with severe respiratory distress and acute onchronic hypoxemia. Portable chest xray demonstrated left lower lateral pneumothorax and a 28Fr chest tube was placed by the ED staff. Due to severe hypoxemia the [facility]: no air leak; CT with [...] re-intubated, given an A-line, and sent to [facility] ICU. 01/30: Concern for pleuro-subcutaneous fistula [...] overnight. Rash stable, denies itchiness/pain. Seen by Merchandise Worker today for grief over patient's father's recent [...] Normal [] Scar/Lesion/Mass Inspection of teeth/lips/gums Dentition: [x][place] Teeth []Dentures Lips/Gums: []Intact []Lesion Present Mucosa: [x][place] []Moist []Dry Neck: External Appearance Overall Appearance: [...] Labs 02/01/2343702/02/2332602/03/23 0525 PHART 7.405 7.406 7.387 FNS2LXY 54.7* 49.2* 49.6* PO2ART 62.9* 67.2* 74.1* PAS1GKU 33.5* 30.2* 29.1* G9SNTDXA ETT ETT Vent Lactic Acid: No results [...] history of GIB, nephrolithiasis who arrived at [facility] from [facility] for pleural subcutaneous fistula 2/2 chest tube [...] PM EST I have personally performed a djfb-bb-dxdl diagnostic evaluation on this patient on date of ohfakbm16/23/23. History, labs, imaging studies, and electronic medical record have been reviewed by me. This note documented by the [x]housekeeping room inspector []TAM reflects my history, exam, and medical [...] Normal [] Scar/Lesion/Mass Inspection of teeth/lips/gums Dentition: [x][place] Teeth []Dentures Lips/Gums: []Intact []Lesion Present Mucosa: [x][place] []Moist []Dry Neck: External Appearance Overall Appearance: [...] 3:32 PM EST Family Communication Number Called: [phone] Name of Designated Family Cartoonist Special Effects: Stalin Steele Relationship: son Phone Call Outcome: I spoke with the individual listed above. Family Cartoonist Special Effects Updated on the Following: Attempted extubation but [...] GIB, nephrolithiasis. The patient presented to the [place] ED on 01/26/23 with severe respiratory distress and acute onchronic hypoxemia. Portable chest xray demonstrated left lower lateral pneumothorax and a 28Fr chest tube was placed by the ED staff. Due to severe hypoxemia the [facility] no [facility]; CT with [...] re-intubated, given an A-line, and sent to [facility] ICU. 01/30: Concern for pleuro-subcutaneous fistula [...] Normal [] Scar/Lesion/Mass Inspection of teeth/lips/gums Dentition: [x][place] Teeth []Dentures Lips/Gums: []Intact []Lesion Present Mucosa: [x][place] []Moist []Dry Neck: External Appearance Overall Appearance: [...] 02/02/23 0327 PHART 7.409 7.352 7.405 7.406 [id number] 53.2* 62.8* 54.7* 49.2* PO2ART 87.1 70.7* 62.9* 67.2* [id number] 33.7* 34.0* 33.5* 30.2* SO2ART 96.5 -- -- -- [id number] -- Vent ETT ETT Lactic Acid: No [...] history of GIB, nephrolithiasis who arrived at [facility] from [facility] for pleural subcutaneous fistula 2/2 chest tube [...] PM EST I have personally performed a fnwn-vx-vbrm diagnostic evaluation on this patient on date of jhhyklb32/22/23. History, labs, imaging studies, and electronic medical record have been reviewed by me. This note documented by the [x]housekeeping room inspector []TAM reflects my history, exam, and medical [...] Normal [] Scar/Lesion/Mass Inspection of teeth/lips/gums Dentition: [x][place] Teeth []Dentures Lips/Gums: []Intact []Lesion Present Mucosa: [x][place] []Moist []Dry Neck: External Appearance Overall Appearance: [...] GIB, nephrolithiasis. The patient presented to the [place] ED on 01/26/23 with severe respiratory distress and acute onchronic hypoxemia. Portable chest xray demonstrated left lower lateral pneumothorax and a 28Fr chest tube was placed by the ED staff. Due to severe hypoxemia the patient was intubated and admitted tothe [facility] ICU. 01/27: no air leak; CT with [...] re-intubated, given an A-line and sent to [facility] ICU. 01/30: Concern for pleuro-subcutaneous fistula [...] Normal [] Scar/Lesion/Mass Inspection of teeth/lips/gums Dentition: [x][place] Teeth []Dentures Lips/Gums: []Intact []Lesion Present Mucosa: [x][place] []Moist []Dry Neck: External Appearance Overall Appearance: [...] 02/01/23 0438 PHART 7.347* 7.409 7.352 7.405 [id number] 61.7* 53.2* 62.8* 54.7* PO2ART 81.0 87.1 70.7* 62.9* [id number] 33.1* 33.7* 34.0* 33.5* SO2ART -- 96.5 -- -- [id number] Vent -- Vent ETT Lactic Acid: No [...] history of GIB, nephrolithiasis who arrived at [facility] from [facility] for pleural subcutaneous fistula 2/2 chest tube [...] PM EST I have personally performed a bylt-ic-ngvf diagnostic evaluation on this patient on date of olfeguc80/21/23. History, labs, imaging studies, and electronic medical record have been reviewed by me. This note documented by the [x]housekeeping room inspector []TAM reflects my history, exam, and medical [...] Normal [] Scar/Lesion/Mass Inspection of teeth/lips/gums Dentition: [x][place] Teeth []Dentures Lips/Gums: []Intact []Lesion Present Mucosa: [x][place] []Moist []Dry Neck: External Appearance Overall Appearance: [...] assess Fluid Accumulation: Mild Extremities (per flowsheet) Armored Car Driver Strength: Not Performed Nutrition Assessment: Pt with PMH including former smoker with severe COPD, chronic hypoxemic respiratory failure on 5LPMhome O2, history of severe ARDS due to MRSA pneumonia and prolonged respiratory failure requiring tracheostomy in 2014 since decannulated, dysphagia, history of TIA, history of GIB, nephrolithiasis, p resented to [place] ED on 01/26/23 with severe respiratory distress and acute on chronic hypoxemia. CXR demonstrated left lower lateral pneumothorax and a 28Fr chest tube was placed by the ED staff. Due to severe hypoxemia the patient was intubated and admitted to the [facility] ICU. On 01/28 the patient was extubated to [place] high flow 15 LPM. He then developed rapid neck and facial swelling so he was intubated emergently on 01/29 and transferred to [facility] for concern for pleural fistula. Pt [...] On: Kcal/kg Weight Used for Energy Requirements: Wilder Weight for Energy Calculation (kg): 78 kg Total Energy Requirements (kcals/day): 7181-4125 (25-30 kcal/kg IBW) Weight Used for Protein Requirements: Wilder Weight in Kg Used for Protein Requirements: [...] 171.7# 11/13/22) % Weight Change (Calculated): 15.2 Wilder Body Weight (lbs) (Calculated): 166 lbs Wilder Body Weight (Kg) (Calculated): 75 kg % Wilder Body Weight (Calculated): 107.8 % BMI (kg/m2) [...] to determine Geno Thomas RD, LD Contact: *[phone] or via [employer] chat * Celeste Panda MD - 01/31/2023 [...] reintubated 2/2 significant subcutaneous emphysema. Transferred to [facility] ICU, and subcutaneus emphysema is improving. [...] questions/concerns Celeste Panda MD General Surgery, PGY-3 #[id number] PAGING: From 6a-6p (-s): Page me at [phone] From 6-6a (-s): - Surg ICU Patients: Page [phone] - Surg Floor Patients: Page [phone] Associated [...] GIB, nephrolithiasis. The patient presented to the [place] ED on 01/26/23 with severe respiratory distress and acute onchronic hypoxemia. Portable chest xray demonstrated left lower lateral pneumothorax and a 28Fr chest tube was placed by the ED staff. Due to severe hypoxemia the [facility]: no air leak; CT with [...] re-intubated, given an A-line and sent to [facility] ICU. Concern for pleuro-subcutaneous fistula air [...] Normal [] Scar/Lesion/Mass Inspection of teeth/lips/gums Dentition: [x][place]eth []Dentures Lips/Gums: []Intact []Lesion Present Mucosa: [x][place] []Moist []Dry Neck: External Appearance Overall Appearance: [...] 01/30/23 0801/30/23173501/30/23184901/31/23406 PHART 7.275* 7.165* 7.347* 7.409 MQU9CLU 73.6* 97.6* 61.7* 53.2* PO2ART 137.5* 86.5 81.0 87.1 [id number] 33.4* 34.4* 33.1* 33.7* SO2ART -- -- -- 96.5 [id number] Vent Vent Vent -- Lactic Acid: No [...] history of GIB, nephrolithiasis who arrived at [facility] from [facility] for pleural subcutaneous fistula 2/2 chest tube [...] PM EST I have personally performed a oxmt-lo-rpis diagnostic evaluation on this patient on date of lcibfpy28/20/23. History, labs, imaging studies, and electronic medical record have been reviewed by me. This note documented by the [x]housekeeping room inspector []TAM reflects my history, exam, and medical [...] Normal [] Scar/Lesion/Mass Inspection of teeth/lips/gums Dentition: [x][place]eth []Dentures Lips/Gums: []Intact []Lesion Present Mucosa: [x][place] []Moist []Dry Neck: External Appearance Overall Appearance: [...] 4:16 PM EST Family Communication Number Called: [phone] Name of Designated Family Cartoonist Special Effects: Stalin Relationship to patient: Son Family Cartoonist Special Effects Updated on the Following: Patient is stable [...] reintubated 2/2 significant subcutaneous emphysema. Transferred to [facility] ICU, and subcutaneus emphysema is improving. [...] MICU Celeste Panda MD General Surgery, PGY-3 #[id number] PAGING: From -6p (-s): Page me at [...] Wong DO, , FACOS * Candice Driver, MANAGER LEARNING - 01/30/2023 7:33 AM EST Speech-Language Pathology Patient transferred from [place] and is now intubated. Completed speech therapy orders and await re-consult 12 - 24 hours post extubation. Candice Driver MS, CCC/MANAGER LEARNING * Peg Ashraf MD - 01/30/2023 5:51 [...] GIB, nephrolithiasis. The patient presented to the [place] ED on 01/26/23 with severe respiratory distress and acute onchronic hypoxemia. Portable chest xray demonstrated left lower lateral pneumothorax and a 28Fr chest tube was placed by the ED staff. Due to severe hypoxemia the [facility]: no air leak; CT with [...] re-intubated, given an A-line and sent to [facility] ICU. Concern for pleuro-subcutaneous fistula air [...] Normal [] Scar/Lesion/Mass Inspection of teeth/lips/gums Dentition: [x][place] Teeth []Dentures Lips/Gums: []Intact []Lesion Present Mucosa: [x][place] []Moist []Dry Neck: External Appearance Overall Appearance: [...] Recent Labs 01/28/2340901/29/23212201/30/23341 PHART 7.340* 7.308* 7.203* [id number] 52.2* 58.4* 86.2* PO2ART 45.7* 114.7* 282.7* LZP4GPK 28.1* 28.6* 33.2* SO2ART 77.8* -- -- T6OGYQME -- 50% Oxygen Vent Lactic Acid: No [...] history of GIB, nephrolithiasis who arrived at [facility] from [facility] for pleural subcutaneous fistula 2/2 chest tube [...] Pulmonary and Critical Care Medicine Attending Pager #[phone] * Gerald Moncada, - 01/29/2023 9:22 PM EST PT arrived from [facility], stable although slightly hypertensive. ETT noted to [...] neck, pt c/o increased difficulty in swallowing. WINE MERCHANT nursed paged for evaluation. Pt remains 93% on 6L NC. Awaiting orders. * Tali Leon CCC-MANAGER LEARNING - 01/29/2023 8:40 AM EST Images from the original note were not included. Speech-Language Pathology SPEECH LANGUAGE PATHOLOGY [facility] Bedside Swallow Evaluation Patient Name: Luis Steele [...] awareness. Pt would benefit from skilled acute MANAGER LEARNING services to address oropharyngeal dysphagia. Frequency: 3 [...] now Question: Diet type Answer: Regular 01/29/23 0734 Tube Feeding: yes, Orogastric; Vital High Protein; [...] stomach 07/10/2021 Dysphagia 07/01/2021 Severe malnutrition (CMS/HCC) ([facility]) 07/10/2021 COPD with acute exacerbation (HCC) 04/05/2021 [...] back under control prior to continuing trials. MANAGER LEARNING completed bedside assessment of swallowing function with [...] breath. Oral cavity was clean and moist. MANAGER LEARNING continues to recommend NPO diet with ice [...] Start: 01/28/23 Expected End: 02/11/23 Therapy Time MANAGER LEARNING Individual Minutes Time In: 0738 Time Out: 0759 Minutes: 21 Tali Leon CCC-MANAGER LEARNING * Joseph Trejo MD - 01/29/2023 7:35 [...] GIB, nephrolithiasis. The patient presented to the [place] ED on 01/26/23 with severe respiratory distress and acute onchronic hypoxemia. Portable chest xray demonstrated left lower lateral pneumothorax and a 28Fr chest tube was placed by the ED staff. Due to severe hypoxemia the [facility] 01/[facility]: no air leak; CT with [...] Normal [] Scar/Lesion/Mass Inspection of teeth/lips/gums Dentition: [x][place] Teeth []Dentures -- very poor dentition Lips/Gums: [x]Intact []Lesion Present Mucosa: [x][place] []Moist []Dry Neck: External Appearance Overall Appearance: [...] 01/28/23 0410 PHART -- 7.283* 7.286* 7.340* [id number] -- 59.0* 54.3* 52.2* PO2ART -- 84.1 62.8* 45.7* [id number] -- 27.9* 25.9* 28.1* SO2ART -- 94.5* 88.3* 77.8* [id number] ETT -- -- -- Lactic Acid: Recent [...] enoxaparin Global: Full Code Disposition: Transfer to [facility] * Joseph Trejo MD - 01/28/2023 6:16 [...] GIB, nephrolithiasis. The patient presented to the [place] ED on 01/26/23 with severe respiratory distress and acute onchronic hypoxemia. Portable chest xray demonstrated left lower lateral pneumothorax and a 28Fr chest tube was placed by the ED staff. Due to severe hypoxemia the [facility] Subjective/Interval Events: Overnight, left chest tube [...] Normal [] Scar/Lesion/Mass Inspection of teeth/lips/gums Dentition: [x][place] Teeth []Dentures -- very poor dentition Lips/Gums: [x]Intact []Lesion Present Mucosa: [x][place] [x]Moist []Dry Neck: External Appearance Overall Appearance: [...] 01/28/23 0410 PHART -- 7.283* 7.286* 7.340* ITE5RHV -- 59.0* 54.3* 52.2* PO2ART -- 84.1 62.8* 45.7* ZNA8CJD -- 27.9* 25.9* 28.1* SO2ART -- 94.5* 88.3* 77.8* T2QYKXCA ETT -- -- -- Lactic Acid: Recent [...] not included. Speech-Language Pathology SPEECH LANGUAGE PATHOLOGY [facility] Bedside Swallow Evaluation Patient Name: Luis Steele [...] Start: 01/28/23 Expected End: 02/11/23 Therapy Time MANAGER LEARNING Individual Minutes Time In: 1510 Time Out: [...] GIB, nephrolithiasis. The patient presented to the [place] ED on 01/26/23 with severe respiratory distress and acute onchronic hypoxemia. Portable chest xray demonstrated left lower lateral pneumothorax and a 28Fr chest tube was placed by the ED staff. Due to severe hypoxemia the [facility] Subjective/Interval Events: Remained stable on the [...] Normal [] Scar/Lesion/Mass Inspection of teeth/lips/gums Dentition: [x][place] Teeth []Dentures Lips/Gums: [x]Intact []Lesion Present Mucosa: [x][place] [x]Moist []Dry ETT in place Neck: External [...] 1713 01/26/23204601/27/23 0408 PHART -- 7.283* 7.286* [id number] -- 59.0* 54.3* PO2ART -- 84.1 62.8* YAN4WCJ -- 27.9* 25.9* SO2ART -- 94.5* 88.3* K4EEQGOE ETT -- -- Lactic Acid: Recent Labs [...] GIB, nephrolithiasis. The patient presented to the [place] ED on 01/26/23 with severe respiratory distress and acute onchronic hypoxemia. Portable chest xray demonstrated left lower lateral pneumothorax and a 28Fr chest tube was placed by the ED staff. Due to severe hypoxemia the patient was intubated and admitted tothe [facility] ICU. Subjective/Interval Events: Overnight, his left chest [...] Normal [] Scar/Lesion/Mass Inspection of teeth/lips/gums Dentition: [x][place]eth []Dentures -- very poor dentition Lips/Gums: [x]Intact []Lesion Present Mucosa: [x][place] [x]Moist []Dry Nasal cannula in place Neck: [...] 01/28/23 0410 PHART -- 7.283* 7.286* 7.340* MML0RET -- 59.0* 54.3* 52.2* PO2ART -- 84.1 62.8* 45.7* BRZ4DTA -- 27.9* 25.9* 28.1* SO2ART -- 94.5* 88.3* 77.8* C1BFUEND ETT -- -- -- Lactic Acid: Recent [...] and physicians, excluding procedures. documented in this [facility]11-28-2023 Consult note* Lauren Maguire DO [...] home O2, MRSA/ARDS requiring trach, decannulated back [id number], dysphagia, TIA, nephrolithiasis with stent who presented [...] COPD Stage 4 and follows pulmonology at [facility]. Last PFTs back in 2021 with [...] with severe emphysema and follows pulmonology at [facility]. Last PFTs in 2019 demonstrated severe obstructions with FEV1 of 25%. He is on transplant list. He uses advair and PRN albuterol at home. 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 On this date, I spent 65 [...] baseline 5 lpm Requesting DC Follows with [facility]- planning lung transplant referral soon No [...] home oxygen, presumed gastroparesis (see care everywhere [facility] summary, received erythromycin while in ICU), severe [...] repairs years ago. Patient initially presented to [place] on 01/26/2023 with severe respiratory distress, found to have a left pneumothorax for which an 8 Kenyan chest tube was placed. Patient was then transferred [facility], chest tube removed and patient was extubated. [...] Narrative: [facility] 1970 [id number] Exam Date/Time: 02/02/2023 11:41 Procedure: XR ABDOMEN [...] erythromycin while he was in ICU at [facility]. Continues to have bowel function, so [...] This note may have been dictated using [employer]oot Medical Practice Edition 2.6 and/or [employer] Voice Recognition Feature. The document was proofread; however, unrecognized voice recognition relations coordinator errors may be present. Associated attestation - [...] 2014, since decannulated) who was transferred to [facility] from [place] with acute on chronic respiratory failure. Yesterday [...] the day (including chart review,care coordination, and eeym-nw-nimp encounter) was spent discussing/counseling the patient/family regarding the care plan for Luis Steele. I examined the patient independently and reviewed relevantdata myself and may have done so in the context of team rounds. A full chart review was performed. Tammie Boo MD Division of Trauma Department of Surgery [facility] Pager: [phone] * Rosario Linder, KENYETTA - 01/30/2023 12:07 [...] MRSA infection who had been admitted to [facility] ICU since 01/26/23 with acute resp failure. [...] he was intubated emergentlyon 01/29. Transferred to [facility] for concern for pleural fistula. Currently hemodynamically stable, satu rating at 100% on 100% FiO2, PEEP of 8. Diffuse subcutaneous emphysema noted, unable to open eyes due to this. CT chest with small left-sided pneumothorax approximately 15%, moderate emphysema, pneumomediastinum, extensive bilateral neck and chest subcutaneous emphysema. Estimated Daily Nutrient Needs: Energy Requirements Based On: Kcal/kg Weight Used for Energy Requirements: Wilder Weight for Energy Calculation (kg): 78 kg Total Energy Requirements (kcals/day): 3011-8352 (25-30 kcal/kg IBW) Weight Used for Protein Requirements: Wilder Weight in Kg Used for Protein Requirements: [...] 0.183 (L) 01/26/2023 VITD25 16 (L) 04/05/2021 [id number] 235 (L) 07/02/2021 FOLATE 3.8 07/03/2021 Lab [...] 171.7# 11/13/22) % Weight Change (Calculated): 15.2 Wilder Body Weight (lbs) (Calculated): 166 lbs Wilder Body Weight (Kg) (Calculated): 75 kg % Wilder Body Weight (Calculated): 107.8 % BMI (kg/m2) (Calculated): 25.9 BMI Categories: Overweight (BMI 25.0-29.9) BMI (Calculated): 25.72 Weight: 81.3 kg (179 lb 3.7 oz) Weight Method: Bed scale Weight History: Wt Readings from Last 10 Encounters: 01/29/23 81.3 kg (179 lb 3.7 oz) 11/27/22 77.1 kg (170 lb) Rosario Linder MS, RD, LD Contact: or [employer] Chat (dial *[phone] from hospital phone) * Patricia Bedoya MD - 01/29/2023 11:34 PM ESTAssociated Order(s): IP CONSULT TO CARDIOTHORACIC SURGERY [facility]: Cardiothoracic Surgery Consultation Note [...] MRSA infection who had been admitted to [facility] ICU since 01/26/23 with acute resp failure. CXR showed large left PTX. He was intubated an a large bore chest tube was placed with resolution. On 01/27 there was no air awake. Overnight the chest tube was inadvertently dislodged. On 01/28 the patient was extubated to [facility] high flow 15 LPM. He then developed rapid neck and facial swelling so he was intubated emergently on 01/29. Transferred to [facility] for concern for pleural fistula. Currently [...] [] Type, if known: No: [] Assessment: @SWAKKHU05@ Plan: -No emergent indication for dual slicks [...] Mr. Steele arrived intubated and sedated from [facility]. He has a history significant for severe [...] not feel there is much utility to desir slots with wound VAC, continue to monitor [...] to assess Fluid Accumulation: Unable to assess Armored Car Driver Strength: Not Performed Nutrition Assessment: 52 year [...] days course of prednosione. Currently presents to [facility] as a transfer from [facility] with acute respiraotry distress. Imaging on admit [...] On: Kcal/kg Weight Used for Energy Requirements: Wilder Weight for Energy Calculation (kg): 78 kg Total Energy Requirements (kcals/day): 0786-2785 (25-30 kcal/kg IBW) Weight Used for Protein Requirements: Wilder Weight in Kg Used for Protein Requirements: [...] 171.7# 11/13/22) % Weight Change (Calculated): 15.2 Wilder Body Weight (lbs) (Calculated): 172 lbs Wilder Body Weight (Kg) (Calculated): 78 kg % Wilder Body Weight (Calculated): 107.8 % BMI (kg/m2) [...] to determine Theresa Upton RDN, LDN, Contact: *[phone] documented in this [facility]11-26-2023 [facility] 02-06-2023 Procedure note* TRACI Benoit - 02/06/2023 10:10 AM EST Images from the original note were not included. SPEECH LANGUAGE PATHOLOGY MODIFIED BARIUM SWALLOW STUDY Patient Name: Luis Steele : 1970 Today's Date: 02/06/2023 Visit Info / [facility] ADMISSION DATE: 01/26/2023 ADMITTING DIAGNOSIS: has Orthopnea; [...] Administered: Reg solid, Dysphagia Pureed (Dysphagia I), Kaser cup, Thin straw, Thincup Procedure Method: Self [...] alert and pleasant. Indicated recall of the MANAGER LEARNING and completion of MBS in the past. [...] clearing/strengthening. Plan & Recommendations Recommendations/Treatment: Recommendations/Treat Requires MANAGER LEARNING Intervention: Yes D/C Recommendations: Ongoing speech therapy [...] Start: 01/28/23 Expected End: 02/11/23 Therapy Time MANAGER LEARNING Individual Minutes Time In: 0920 Time Out: [...] subcutaneous emphysema was present. documented in this [facility]11-18-2023 [facility] 01-29-2023 [facility]11-18-2023 Nurse Note* Aminata Severino RN - 01/29/2023 7:46 PM EST 1810: Dr. Trejo, Charlene, PARTS CLASSIFIER, Jason Breen RN, Margot Almaraz RN, Sandra [...] 20 mcg propofol given documented in this encounterSCleveland Clinic Mercy [id number] NoteCrepitus noted along left neck, pt c/o increased difficulty in swallowing. WINE MERCHANT nursed paged for evaluation. Pt remains 93% on 6L NC. Awaiting orders.[facility]11-17-2023 Miscellaneous Notes* Telephone Encounter - Fabi Hughes LPN - 01/28/2023 3:10 PM EST Spoke with Eveline gave information provided. She voices understanding. * Telephone Encounter - Shelia Garvey APRN.CNP - 01/28/2023 2:50 PM EST Yes. Shelia Garvey APRN.PARTS CLASSIFIER * Telephone Encounter - Marga Blackwood RN - 01/28/2023 2:45 PM EST Eveline- C Coordinator at [facility], reports patient was admitted to [facility] with Dx: spontaneous pneumothorax. Chest tube was removed today, and possible discharge is on 01-31. Asking ifpcp agreeable to follow for [facility] orders. Please phone Eveline with verbal: [phone] [facility] Hospital Discharge instructions* Appointments* MACI Malhotra - 01/28/2023 2:12 PM EST Referral was made to [facility] Kareem Mendieta for Waiver Services W[employer] Services can help you in your home with activities such as cooking, cleaning, transport, medset up, and more. You will receive a call from a accounts receivable representative from [employer] to complete an assessment. [facility]: documented in this [facility]11-15-2023 [facility] 01-26-2023 Emergency department Note* Francois Murray RN - 01/26/2023 7:34 PM EST Report to [facility] flight crew. Pt's sister given room number at [facility]. Chart toflight crew for [place]. [facility] called to let them know of pt departure Francois Murray RN 01/26/231945 * Francois Murray RN - 01/26/2023 7:21 PM EST ADELIA Bergman RN, Florin Diamond RN, spent 390 combined total minutes providing direct, wsqr-xo-ezwo critical care to the patient for: Interventions [...] tube, OG insertion, emerson. Pt transferred to [facility] ICU via [facility]. Lizzeth Evans RN 01/26/231923 [...] ambulance called back and they are sending [facility] life flight helicopter for pt. ETA 25 min Francois Murray RN 01/26/23 1845 * Francois Murray RN - 01/26/2023 5:37 PM EST Report called to [place] SENIOR LINUX ADMINISTRATOR, Kim Murray RN 01/26/23 2678 * Francois Murray RN - 01/26/2023 5:00 [...] use: Yes Drug use: Not Currently SCREENINGS [place] Coma Scale Best Eye Response: Spontaneous Best [...] 1 view Final Result FINDINGS/IMPRESSION: Limitations: Patient positioning/rnxvu-sp-znia. Right hemithorax not included on the lnmik-ww-suaj Lines, tubes, and devices: Endotracheal tube has its tip about 6.5 cm above the chun. NG tube hasits tip likely within the stomach, distal portion not included on the bgigj-xh-jprt. Left-sided chest tube appears slightly retracted with [...] In compliance with this authorization, please visit www.fda.gov/media/943969/download or www.fda.gov/media/607373/download to access the applicable information sheets. TROPONIN, [...] but is in better position,is a 28 Kenyan chest tube, see procedure notes below, pulse ox 100%, admitted to ICU at [facility]. The differential diagnosis associated with this patient's [...] location: lateral midaxillary line Tube size: 28 Kenyan Dissection instrument: Marlene clamp and finger Over [...] procedures or time spent by the physicians insurance underwriting assistant if they were caring for this [...] 01/26/2023 2:37 PM EST Pt arrives by [facility] with respiratory distress today. Pt on home O2 5L. Gasping for air per EMS. Pt placed on nonrebreather and sat remain in 80's. Placed on CPAP by EMS. Pt arrives in tripod position and using accessory muscles. Say 90% on CPAP. Placed on monorail hooker. Sinus tach. Dr Cunha and staff at bedside. documented in this [facility]11-15-2023 History and physical note* Charlene Del Cid APRN - PARTS CLASSIFIER - 01/26/2023 7:23 PM EST Images from [...] and CRRT during stay. Patient presented to [facility] ED today 01/26/2023 with acute onset [...] appropriate placement and resolved pneumo. [facility] ICU Upon arrival patient with ETT [...] Normal [] Scar/Lesion/Mass Inspection of teeth/lips/gums Dentition: [][place] Teeth []Dentures Lips/Gums: [x]Intact []Lesion Present Mucosa: [x][place] []Moist [x]Dry Neck: External Appearance Overall Appearance: [...] RDW 16.4* ABGs: Recent Labs 01/26/23 1713 G1HUANNG ETT Lactic Acid: Recent Labs 01/26/23 1451 [...] 01/26/2023 CXR 1707 IMPRESSION: FINDINGS/IMPRESSION: Limitations: Patient positioning/gpyim-rx-nmxf. Right hemithorax not included on the jgznb-ja-scmy Lines, tubes, and devices: Endotracheal tube has its tip about 6.5 cm above the chun. NG tube hasits tip likely within the stomach, distal portion not included on the hudry-aa-wjyh. Left-sided chest tube appears slightly retracted with [...] Senna bid and Miralax BID -Consult to Mailroom Clerk -Consult speech post extubation for swallow eval Tobacco Use -Hx 2PPD cigarettes -Nicotine patch -Word Processor Operator on smoking cessation Debility -PT/OT eval and [...] and physicians, excluding procedures. documented in this [facility]11-07-2023 Miscellaneous Notes* Telephone Encounter - Sandra Luis OCCA - 01/18/2023 5:21 PM EST TC to patient who is agreeable to schedule follow up. Patient scheduled in first available on 02/18/[address] Buchanan as he prefers to see her over MULTIMEDIA ENGINEER. Patient also provided number to call [...] else? Please advise patient. documented in this encounterS[facility]23 Hospital Discharge instructions* Discharge Instructions* Kelton Enrique [...] Care Everywhere. * COPD Exacerbation, Adult ED ([place]) documented in this encounterSCleveland Clinic Mercy [id number] Emergency department Note* Luis Antonio Manuel - 12/04/2022 2:35 AM EDT IV started by [facility] to Left hand by thumb dc'd by us. IV would not flush properly or draw back. IV cather intact. Site dressed with gauze & secured with tape. Luis Antonio Manuel 12/04/22 0237 [facility]kn[facility]86-43-8074 Emergency department Note* Luis Antonio Manuel - 12/04/2022 2:35 AM EDT IV started by [facility] to Left hand by thumb dc'd by us. IV would not flush properly or draw back. IV cather intact. Site dressed with gauze & secured with tape. Luis Antonio Manuel 12/04/22 0237 * Kelton Enrique MD - 12/04/2022 1:56 AM EDT Emergency Department Encounter [facility] ED Patient: Luis Steele : 1970 Date [...] dictating provider for clarification. Kelton Enrique MD [facility] Kelton Enrique MD 12/04/22 0547 * Gerald [...] and MD at bedside. documented in this [facility]09-23-2023 Emergency department Triage note* Gerald Rosario RN - 12/04/2022 1:56 AM EDT Pt comes in VIA squad to room 6 for shortness of breath, Pt was initially 86 RA prior to squad arrived and they gave him DuoNeb and a non-rebreather and pt incresased to 99 on 4L NC. Pt complains of chest tightness and EKG done and MD at bedside. [id number] Physician Emergency department Note* Kelton Enrique MD - 12/04/2022 1:56 AM EDT Emergency Department Encounter [facility] ED Patient: Luis Steele : 1970 Date [...] [employer] Kelton Enrique MD 12/04/22 8720 [facility]Bohvyh51-55-8167 Emergency department Note* Maeve Jauregui RN - 11/27/2022 8:45 PM EDT Patient provided with new set of scrub pants as he spit up on his pants. Patient given urinal to void. Maeve Jauregui RN 11/27/222045 [facility] HospitalFovesg96-12-1000 Emergency department Note* Maeve Jauregui RN - [...] otherwise acutely negative except as in the COCOPAH. PAST MEDICAL HISTORY Past Medical History: Diagnosis [...] dc PATIENT REFERRED TO: Antwan Buchanan [address] [facility] [id number] Schedule an appointment as soon as possible [...] 11/27/2022 8:03 PM EDT Patient arrived by [facility] to room 7. Patient states he was eating an egg sandwich on toast 15-20 min RELATIONS COORDINATOR when he started choking. Patient states he felt like he was going to pass out. Medics state patient was able to move air. Patient states he thinks he coughed up part of it on the way here. Patient has hx of emphysema and in on list for double lung transplant. Patient on 4L O2 at home. documented in this encounterSCleveland Clinic Mercy HospitalAsdxux68-27-1504 Emergency department Triage note* Maeve Jauregui RN - 11/27/2022 8:03 PM EDT Patient arrived by [facility] to room 7. Patient states he was eating an egg sandwich on toast 15-20 min RELATIONS COORDINATOR when he started choking. Patient states he felt like he was going to pass out. Medics state patient was able to move air. Patient states he thinks he coughed up part of it on the way here. Patient has hx of emphysema and in on list for double lung transplant. Patient on 4L O2 at home. [facility] HospitalKaqonj41-50-4980 Physician Emergency department Note* Tony Figueroa DO [...] otherwise acutely negative except as in the COCOPAH. PAST MEDICAL HISTORY Past Medical History: Diagnosis [...] dc PATIENT REFERRED TO: Antwan Buchanan [address] [facility] [address] Schedule an appointment as soon as possible [...] Emergency Medicine Provider Tony Figueroa DO 11/27/222220 [facility] HospitalMbzoqi32-86-9585 Progress note Author Cuca Flood [facility] November 13, 2022 12:45pm Note Date/Time November 13, 2022 11:34am [facility] Medical Records Department [address] [place] [address] Progress Note - Hospitalist 11/13/22 1134 MR#: [id number] Acct: [id number] Name: LUIS STEELE II Rep #:[id number] : 1970 52 From: Cuca Flood MD PCP: Dr. Antwan Buchanan, DO Status:AD M IN Location: [place] [address] Reason for Visit Reason for Visit: Diagnoses [...] 76.4 H, Lymph % (Auto) 16.4 L, Mason % (Auto) 5.5, Eos % (Auto) 0.8, [...] 85.7 H, Lymph % (Auto) 8.6 L, Mason % (Auto) 4.9, Eos % (Auto) 0.0, [...] 16:35 EDT Reading Location ID and State: [address] [place] [address] , Service support , Physical Exam Narrative [...] bleed ? 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 especially [...] with colleagues Charges/Coding Visit Charges Inpatient E&M: 25268 Subs Hosp L2 11/13/22 1245 <Electronically signed by Cuca Flood MD> Cosigner Signature (if applicable): CC: ~ Signed [facility] Work Phone: 1(126) 984-726509-02-2023 Consult note Author Adán Friend [facility] November 13, 2022 9:06am Note Date/Time November 13, 2022 9:01am [facility] Medical Records Department [address] [place] [address] Consultation - GI 11/12/22 2300 MR#: [id number] Acct: [id number] Name: LUIS STEELE II Rep #:[id number] : 1970 52 From: Adán Berg DO PCP: Dr. Antwan Buchanan, DO Status:[facility] IN Location: [place] [id number]- 1 HPI Consult Data Date of Consult: [...] He does nottake iron at this time. [facility] Medical History Alcohol abuse Anxiety COPD (chronic [...] Status Date / Time tramadol HCl [From [facility]] Allergy Swelling Verified 11/12/22 14:41 codeine AdvReac [...] 76.4 H, Lymph % (Auto) 16.4 L, Mason % (Auto) 5.5, Eos % (Auto) 0.8, [...] 85.7 H, Lymph % (Auto) 8.6 L, Mason % (Auto) 4.9, Eos % (Auto) 0.0, [...] 16:35 EDT Reading Location ID and State: [address] [place] [address] , Service support , Assessment & Plan Assessment/Plan (1) Acute GI bleeding: (2) Acute anemia: PLAN: Plan Acute on chronic blood loss anemia secondary to GI bleed ? 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 Antwan Buchanan DO; Dr. Kelton Gutierrez MD~ Signed [facility] Work Phone: 1(261) 971-930909-02-2023 Procedure [facility] 11-13-2022 Procedure [facility]09-02-2023 Procedure note [facility]09-02-2023 Procedure [facility] 11-12-2022 History and physical note Author Kelton Gutierrez [facility] November 12, 2022 7:06pm Note Date/Time November 12, 2022 6:09pm [facility] Medical Records Department [address] [place] [address] H&P Exam - Hospitalist 11/12/22 1801 MR#: [id number] Acct: [id number] Name: [place] STEELE II Rep #:[id number] : 1970 52 From: Kelton pino MD PCP: Dr. Atnwan Buchanan, DO Status:AD M IN Location: [facility] OIK204- 1 HPI - General General Date of [...] no other findings in imaging. No diverticulitis. [facility] Medical History Alcohol abuse Anxiety COPD (chronic [...] Status Date / Time tramadol HCl [From [facility]] Allergy Swelling Verified 11/12/22 14:41 codeine AdvReac [...] 76.4 H, Lymph % (Auto) 16.4 L, Mason % (Auto) 5.5, Eos % (Auto) 0.8, [...] 16:35 EDT Reading Location ID and State: [facility] / [place] , Service support , Assessment & Plan Assessment/Plan (1) Acute GI bleeding: (2) Acute anemia: PLAN: Plan 1. Acute blood loss anemia secondary to GI bleed ? 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 Antwan Buchanan DO; Dr. Kelton Gutierrez MD~ Signed [facility] Work Phone: 1(696) 801-482109-01-2023 Discharge summary Author Kody Jj [facility] November 12, 2022 6:04pm Note Date/Time November 12, 2022 3:15pm [facility] Medical Records Department [facility] [place] [address] Emergency Department Summary 11/12/22 MR#: [id number] Acct: [id number] Name: [place] ST[place]LE II Rep #:[id number] : 1970 52 From: Kody Jj MD [...] last drink was probably 7 months ago. [facility] Medical History Alcohol abuse Anxiety COPD (chronic [...] 76.4 H Lymph % (Auto) 16.4 L Mason % (Auto) 5.5 Eos % (Auto) 0.8 [...] but no acute ST elevation or depression. GA interval, QRS duration and QTc are normal. [...] Provider] - Disposition Disposition: Acute Care Hospital [facility] What to do if you have Problems For any increased pain, shortness of breath, bleeding, nausea or vomiting, chestpain, or any unexpected problems, contact your Primary Care Provider. Call [facility] ([phone]) or report to the closest Emergency Room. Call 911 if necessary. 11/12/22 180 <Electronically signed by Kody Jj MD> Cosigner Signature (if applicable): CC: Dr. Antwan Buchanan DO ~ Signed [facility] Work Phone: 1(440) 290-886308-31-2023 Miscellaneous Notes* Telephone Encounter - Cat Sanchez LPN - 11/11/2022 2:10 PM EDT Patient returned call and went over notes below from Dr Buchanan with understanding. Scheduled apptfor 11/12/2022 at Shelia Garvey MULTIMEDIA ENGINEER at 240 pm. * Telephone Encounter [...] have a good day. documented in this encounterScci Hospital [facility]ima06-26-2023 History of Present illness Narrative* Antwan Buchanan [...] 02/03/[address] [facility] Hyperlipemia 08/2013 Low HDL (under 40) 08/2013 Lung nodule < 6cm on CT 05/[address] 05/2022 MRSA pneumonia (HCC) 2014 hospitalized, intubated, pressors Pancreatitis TIA (transient ischemic attack) 1994 Pt. reports Tobacco abuse PAST SURGICAL HISTORY Procedure Laterality Date CENTRAL LINE 06/14/2014 COLONOSCOPY FLX DX W/COLLJ SPEC WHEN PFRMD 2012 EGD 02/02/2018 [facility]. Hp-, mild chronic gastritis PAST SURGICAL [...] See patient instructions. Antwan Buchanan DO [address] [place] [address] documented in this encounterScci Hospital [facility]ima01-19-2023 Miscellaneous Notes* Telephone Encounter - Gabbie Garcia [...] you. Gabbie Garcia LPN documented in this encounterScci Hospital [facility]ima01-19-2023 Miscellaneous Notes* Telephone Encounter - Gabbie Janelle [...] you. Gabbie Garcia LPN documented in this encounterScci Hospital [facility]ima06-28-2022 History of Present illness Narrative* Rula Robles [...] schedule consult Lei Murphy documented in this encounterScci Hospital [facility]ima05-21-2022 Hospital Discharge instructions Patient Education 08/01/2021 12:11:40 [...] your ankles gets worse Dizziness or weakness 9820-0173 [employer]. [address] [place] [address], [place] [address]. All rights reserved. This information is not intended as a substitute for professional medical care. Always follow yourhealthcare professional's instructions. Follow Up Care 08/01/2021 11:09:33 With:ANTWAN BUCHANAN DO Address: [address] [place] [address]- When:2-4 days [facility] 05-19-2022 Miscellaneous Notes* Telephone Encounter - Lesa Ramey LPN - 07/30/2021 2:26 PM EDT Prior Auth required on Trelegy, this is why pharmacy did not receive. [facility] formulary also does not list Breztri. Spiriva and ICC/LABA agents preferred. Please advise. Lesa Ramey LPN documented in this encounterScci Hospital [facility]ima05-12-2022 Note. MICRO - Microbiology PROCEDURE: Blood Culture [...] Locations *1: This test was performed at: [facility], [address] [place] [address], [address]- , Pending sale to [facility] ([place])07-23-2021 Note. MICRO - Microbiology PROCEDURE: Blood Culture [...] Locations *1: This test was performed at: [facility], [address] [place] [address], [facility] , Pending sale to [facility] ([place])07-17-2021 Hospital Discharge instructions Patient Education 07/17/2021 21:07:42 [...] for diarrhea, vomiting, or a high fever. 6369-[address] [employer]. [address] [place] [address]. All rights reserved. This information is not intended as a substitute for professional medical care. Always follow yourhealthcare professional's instructions. Follow Up Care 07/17/2021 17:48:40 With:ANTWAN BUCHANAN Address: [address] [place] [address]- When:3-5 days [facility] 05-06-2022 Evaluation + Plan note Diagnostic Tests Pending * Blood Culture (bacterial) 07/17/21 * Blood Culture (bacterial) 07/17/21 [facility] 05-06-2022 Miscellaneous Notes* Telephone Encounter - Fabi Hughes LPN - 07/17/2021 9:34 AM EDT joseph-- 05/29/21 next appt. 08/31/21 Last refill-- 05/29/21 30 patches with 3 refills Last labs completed 07/11/21 alpha 1 07/16/21 documented in this encounterScci Hospital [facility]ima05-05-2022 History of Present illness Narrative* Nayana Ricks RRT - 07/16/2021 4:17 PM EDT PULM FUNCTION SMARTBLOCK: Provider: Manuel Block MD Assisting Tech: Nayana Ricks RRT Spirometry w/BD: 1 DLCO: 1 LV - Box: 1 System: [id number] documented in this encounterScci Hospital Lima05-05-2022 History of Present illness Narrative* Manuel Block MD - 07/16/2021 3:15 PM EDT Images from the original note were not included. . Respiratory Mallory Note Patient name: Luis Steele II PCP: [...] he wants to pursue this route. DME: [facility] Care DATA: [facility] PFT, 01/09/2014: Forced expiratory spirometry and flow [...] # 1.0 - 4.3 10*3/uL 2.0 Absolute Mason # 0.0 - 0.8 10*3/uL 1.5 High [...] eGFR >60 mL/min >90.0 EGFR IF NonAfrican Botswanan >60 mL/min >90.0 Chemistry shows elevated bicarbonate level consistent with chronic hypercapnia Imaging / Diagnostic Studies: DATE OF EXAM: Jun 10 2021 2:27PM [facility] - CT CHEST WO [...] Take 81 mg by mouth once daily. gpcgogtfodx-hrqdegudc-lvcguwff (TRELEGY ELLIPTA) 200-62.5-25 mcg inhalation powder Inhale [...] Age of Onset Allergies Mother Heart Mother [place] Stroke Mother Liver Cancer Mother Lung Cancer [...] COPD -Continued abstinence Manuel Block MD Respiratory Mallory documented in this encounterScci Hospital [facility]ima05-01-2022 NoteHospitalist Discharge Summary Luis Steele : 1970 [...] albuterol sulfate HFA vitamin D 1.25 MG (43060 UT) Caps capsule Commonly known as: ERGOCALCIFEROL Take 1 capsule by mouth once a week Wellbutrin XL 300 MG extended release tablet Generic drug: buPROPion Where to Get Your Medications These medications were sent to [address] - [address] [facility] [phone] - F [phone] [place] [phone] ? ciprofloxacin 500 MG tablet These medications were sent to [place], [place] - [address] [place] [address] [place] - P [phone] - F [phone] [place] [address] ? pantoprazole 40 MG tablet Recommended Follow-up: Antwan Buchanan [address] [facility] [place] [place] [address] Schedule an appointment as soon as possible for a visit For hospital follow up Readmission Risk Risk of Unplanned Readmission: 18 Complexity of Follow up: [] Moderate Complexity: follow up within 7-14 calendar days (85688) [x] Severe Complexity: follow up within 7 calendar days (61579) Follow up Testing, Pending results or Referrals at Transitional Care Visit: [x] yes [] no Instructions to MA: Please call patient on day after discharge (must document patient contacted within 2 business days of discharge). Follow up (more content not included)...[facility]05-01-2022 Hospital Discharge instructions* Discharge Instr - Activity* Keo Williamson DO - 07/12/2021 11:56 AM EDT As tolerated * Discharge Instr - Diet* eJssica Del Castillo RN - 07/12/2021 11:56 AM [...] most local grocery stores, pharmacies, and chain [employer]-stores. If you have any questions about your diet or nutrition, call the hospital and ask for the dietitian. Healthy diet documented in this encounterSUMMA Work Phone: 1(403) 384-171505-01-2022 History of Present illness Narrative* TRACI Courtney - 07/12/2021 10:19 AM EDT Facility/Department: [facility] TELEMETRY Dysphagia Treatment Note NAME: Luis Steele [...] please re-consult speech therapy service. TRACI Courtney M.A.[facility]/MANAGER LEARNING, A Time in: 952 Time out: 1015 [...] Galdino Geiger MD 1 ampule at 07/11/212 yixnzxqxvx-eoqxehyjppcei-xtmtadrr (FIORICET, ESGIC) per tablet 1 tablet 1 [...] note were not included. Hospitalist Progress Note 07/11/20216992680-7770: Please page me ([phone]) for patient care issues. [phone]: Please page IMS night Hospitalist for any [...] MD Division of Hospitalist Medicine Inpatient Medical Services/[facility]: [phone] * Loreta Bell, MANAGER LEARNING - 07/11/2021 12:08 PM EDT Facility/Department: [facility] TELE[facility] Dysphagia Treatment Note NAME: Luis Steele [...] as per plan of treatment. TRACI Courtney M.A.[facility]/MANAGER LEARNING, Elio Time in: 1100 Time out: 1135 * Jay Fields, RD, LD - 07/10/2021 3:26 PM EDT Comprehensive Nutrition Assessment Type and Reason for Visit: Reassess Nutrition Recommendations/Plan: 1. Continue with Regular diet as tolerated. MANAGER LEARNING following to ensure safe swallow; provide textures per MANAGER LEARNING. Suggest small, frequent meals for ease of [...] has to drink small volume at once. MANAGER LEARNING following and noted the same. Cleared for [...] Anthropometric Measures: Height: 5' 10.98 (180.3 cm) Wilder Body Weight (IBW): 172 lbs (78 kg) [...] Energy Requirements: Current Energy (kcal/day): 30-35 or 9974-2555 Weight Used for Protein Requirements: Current Protein [...] Nutrition Supplement Nutrition Education/Counseling: Education not indicated (MANAGER LEARNING continues to follow for dysphagia and strengthening [...] Nutrition Supplement Jay Fields RD, WANG Contact: *[phone] * Charles Patten MD - 07/10/2021 2:35 [...] No oncologic process noted. Esophagram reviewed , MANAGER LEARNING following, Negative MRI brain to r/o central [...] enoxaparin 40 mg SubCUTAneous Daily PRN Meds: clolioxonu-kfdnxotiltwqb-nrzvjcid, traZODone, sodium chloride flush, sodium chloride, ondansetron [...] was made to ensureaccuracy; however, inadvertent computerized relations coordinator errors may be present. * Sandra Da [...] to r/o oncologic etiology Esophagram ordered STAT, MANAGER LEARNING following, MRI brain to r/o central etiologies [...] enoxaparin 40 mg SubCUTAneous Daily PRN Meds: detistbdbb-xwxlgsytdfujb-poqpdcci, traZODone, sodium chloride flush, sodium chloride, ondansetron [...] was made to ensureaccuracy; however, inadvertent computerized relations coordinator errors may be present. * Jay Fields RD, WANG - 07/09/2021 9:43 AM EDT Ensure supplements piling up per tray passer. Will cancel for now and continue to follow patient during admit. * Audrey Marx [facility] - 07/08/2021 3:59 PM EDT [facility] Respiratory Care Department Progress Note As part [...] of TIAs Awaiting Esophagram for >3 days MANAGER LEARNING luciano noted GI consult noted, awaiting Esophagram [...] to r/o oncologic etiology Esophagram ordered STAT, MANAGER LEARNING following, MRI brain to r/o central etiologies [...] cyanocobalamin 1,000 mcg IntraMUSCular Daily PRN Meds: cwfumkpxii-jwnagorgtohzr-dtyicfut, traZODone, sodium chloride flush, sodium chloride, ondansetron [...] was made to ensureaccuracy; however, inadvertent computerized relations coordinator errors may be present. * Theresa Upton RD, LD - 07/07/2021 3:54 PM EDT Comprehensive Nutrition Assessment Type and Reason for Visit: Reassess Nutrition Recommendations/Plan: 1. Continue Regular diet, with no straws and meds to be given whole in pudding per MANAGER LEARNING assessment on 07/02/21. 2. Per MNT protocol, [...] 4 L O2 at baseline). Presented [facility] ED with difficulty swallowing on 07/01/21, transferred to [facility] late in evening on 07/01/21. MBSS completed on 07/02/21, MANAGER LEARNING recommending Regular diet with very small drinks of thin liquids. No straws. Medications whole in pudding (prefers chocolate) . Unable to completed esophagram d/t SOB and concerns for aspiration. MANAGER LEARNING continues for follow for dysphagia care and [...] Anthropometric Measures: Height: 5' 10.98 (180.3 cm) Wilder Body Weight (IBW): 172 lbs (78 kg) [...] Energy Requirements: Current Energy (kcal/day): 30-35 or 2977-1975 Weight Used for Protein Requirements: Current Protein [...] liquids) as evidenced by other (comment) (MBBS ,MANAGER LEARNING evafshan) Nutrition Interventions: Food and/or Nutrient Delivery: Continue Current Diet,Modify Oral Nutrition Supplement Nutrition Education/Counseling: Education not indicated (MANAGER LEARNING continues to follow for dysphagia and strengthening [...] [Urine:1600] Date 07/07/21 0000 - 07/07/212358 Shift 5274-0485 5422-3458 3923-3088 24 Hour Total INTAKE Shift Total(mL/kg) OUTPUT [...] CHOL No results found for: PHART, PO2ART, [id number] No results for input(s): INR in the [...] Code Discharge planning: TBD JAMEE ALEJANDRO MD [facility] Emergency Department Hospitalist * Ngozi Bonilla - 07/07/2021 9:04 AM EDT Patient unable to catch his breath in order to do esophagram. Another MBS is recommended before proceeding with esophagram to r/o aspiration. 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 Discuss concern with aspiration [...] Continue ex independently after d/c. TRACI Benoit M.A.[facility]/MANAGER LEARNING Time session ended: 1324 Total session minutes: [...] 2250 [Urine:2250] Date 07/06/21 - 07/06/212358 Shift 6889-2830 5099-0985 8167-6267 24 Hour Total INTAKE Shift Total(mL/kg) OUTPUT [...] CHOL No results found for: PHART, PO2ART, [id number] No results for input(s): INR in the [...] Date 07/05/21 0000 - 07/05/21 2359 Shift 5853-7520 7991-4489 5642-2574 24 Hour Total INTAKE P.O.(mL/kg/hr) 300 300 [...] CHOL No results found for: PHART, PO2ART, [id number] No results for input(s): INR in the [...] 1600 [Urine:1600] Date 07/04/21 - 07/04/212358 Shift 7056-5530 2617-4536 3003-3769 24 Hour Total INTAKE I.V.(mL/kg) 10(0.2) 10(0.2) [...] CHOL No results found for: PHART, PO2ART, [id number] No results for input(s): INR in the [...] 10:21 AM EDT Speech Language Pathology Facility/Department: [facility] 2E TELEMETRY Dysphagia Treatment Note NAME: Luis [...] 1,000 mcg IntraMUSCular Daily Kapil GarcíaKARSTEN - PARTS CLASSIFIER 1,000 mcg at 07/03/21 0844 OBJECTIVE VITALS: [...] Date 07/03/21 0000 - 07/03/21 2359 Shift 0372-7921 2844-7857 4145-6824 24 Hour Total INTAKE Shift Total(mL/kg) OUTPUT [...] CHOL No results found for: PHART, PO2ART, CTR8FNP No results for input(s): INR in the [...] 10:04 AM EDT Speech Language Pathology Facility/Department: [facility] MED SURG Dysphagia Treatment Note NAME: Luis [...] pt is able to tolerate. 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 male with past medical history of COPD on home oxygen therapy HLD below who presentswith chief complaint listed above . Patient is a transfer from [place] . Patient was seen there due to [...] observation NPO IVF GI consult barium esophogram MANAGER LEARNING consult Nutrition Related Findings: per court collections officer-. +vocal cord penetration and flash and trace aspiration of larger cup drinks of thin liquids. Chin tuck did NOT prevent aspiration. 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,wellbutrin, inhalers, on ppi, zoloft, wellbutrin Wound Type: None Current Nutrition Intake & Therapies: Average Meal Intake: NPO Average Supplements Intake: NPO ADULT DIET; Regular; No Drinking Straws ADULT ORAL NUTRITION SUPPLEMENT; Breakfast, Dinner; Standard High Calorie/High Protein Oral Supplement Anthropometric Measures: Height: 5' 11 (180.3 cm) Wilder Body Weight (IBW): 172 lbs (78 kg) [...] Energy Requirements: Current Energy (kcal/day): 30-35 or 9257-6688 Weight Used for Protein Requirements: Current Protein [...] liquids) as evidenced by other (comment) (MBBS ,MANAGER LEARNING eval) Nutrition Interventions: Food and/or Nutrient Delivery: Continue Current Diet,Start Oral Nutrition Supplement (diet per court collections officer) Nutrition Education/Counseling: Education needed (per speech and [...] Oral Nutrition Supplement Aminata Biswas RD, WANG Contact:*[phone] * TRACI Benoit - 07/02/2021 2:15 PM EDT Speech Language Pathology A Modified Barium Swallow Study (MBSS) evaluation was completed. The full Speech Pathology report is located under the Chart Review section of [facility]. Click on the Procedure tab to locate the complete Speech Pathologist MBSS results and recommendations titled MANAGER LEARNING video swallow on this date. +vocal cord penetration and flash and trace aspiration of larger cup drinks of thin liquids. Chin tuck did NOT prevent aspiration. Recommended diet: Regular diet with single-SMALL cup drinks Medications in pudding Double swallow/alternate drinks with bites TRACI Benoit M.A. [facility]-MANAGER LEARNING * TRACI Benoit - 07/02/2021 10:55 AM EDT Speech Language Pathology Facility/Department: [facility] MED SURG CLINICAL BEDSIDE SWALLOW EVALUATION Having [...] above . Patient is a transfer from [place] . Patient was seen there dueto difficulty [...] COPDand respiratory failure 2014. Treatment Plan Requires MANAGER LEARNING Intervention: Yes Duration of Treatment: 1 week [...] devices: Call light within reach Therapy Time MANAGER LEARNING Individual Minutes Time In: 1026 Time Out: 1043 Minutes: 17 TRACI Benoit 07/02/2021 12:03 PM * Kapil García APRN - PARTS CLASSIFIER - 07/02/2021 10:33 AM EDT Images from the original note were not included. Hospitalist Progress Note 07/02/2021 10:33 AM [phone]: Please reach me on Perfect Serve patient care issues. [phone]: Please page IMS night Hospitalist for any issues. Subjective: Admit Date: 07/01/2021 PCP: No primary care provider on file. Room#: 149/1491 Follow up on patient admitted after midnight. Patient admitted for dysphagia. Plan for MBS/Esophagram. GI/ST following. Noted borderline/low B12 levels. Hgb ok. Additional w/u ordered in AM. Needs die designer eval d/t malnutrition also. He is on 4L NC chronically d/t COPD. Past Medical History: Diagnosis Date Anxiety COPD (chronic obstructive pulmonary disease) (HCC) Diverticulitis Pancreatitis TIA (transient ischemic attack) Pt stated in and in 2014 All labs, diagnostic studies, imaging, and progress notes reviewed. KARSTEN Green CNP Division of Hospitalist Medicine Inpatient Medical Services/[facility] [place] documented in this encounterSUMMA Work Phone: 1(154) 531-603504-10-2022 Hospital Discharge instructions Patient Education 06/21/2021 00:07:22 [...] your ankles gets worse Dizziness or weakness 1561-[address] [employer] [place] [address]. All rights reserved. This information is not intended as a substitute for professional medical care. Always follow yourhealthcare professional's instructions. Follow Up Care 06/20/2021 22:40:22 With:ANTWAN BUCHANAN Address: [address] [place] [address]- Business (1) When:2-4 days [facility] 04-08-2022 Miscellaneous Notes* Telephone Encounter - Steff Gruber APRN.CNP - 06/19/2021 11:04 AM EDT See other [employer] message from same day, 06/11/2021. Steff Gruber APRN.CNP * Telephone Encounter - Radha Greer Ma - 06/11/2021 11:56 AM EDT Please see patients message Radha Greer Ma documented in this encounterS[facility] Miscellaneous Notes* Telephone Encounter - Shelia Mahmood [...] as prescribed and considering follow up with Health Coordinator Antwan Buchanan DO documented in this encounterScci Hospital [facility]03-30-2022 History of Present illness Narrative* RT Shanon(Selam) [...] 10, 2021 3:46 PM documented in this encounterScci Hospital [facility]01-31-2022 NoteHospitalist Discharge Summary Luis Steele : 1970 Admit date: 04/04/2021 Discharge date: 04/13/2021 Admitting Physician: Lm Zayas MD Primary Care Physician: No primary care [...] by mouth nightly vitamin D 1.25 MG (04488 UT) Caps capsule Commonly known as: ERGOCALCIFEROL Take 1 capsule by mouth once a week Start taking on: April 19, 2021 Where to Get Your Medications These medications were sent to [address] - P [phone] - F [phone] [place] [id number] ? dexamethasone 6 MG tablet ? guaiFENesin 600 MG extended release tablet ? sertraline 25 MG tablet ? traZODone 50 MG tablet ? vitamin D 1.25 MG (01686 UT) Caps capsule Recommended Follow-up: [facility] [address] [place] [address] [address] [facility] [address] Schedule an appointment as soon as possible for a visit in 1 week Hospital follow up Readmission Risk Risk of Unplanned Readmission: 14 Complexity of Follow up: [] Moderate Complexity: follow up within 7-14 calendar days (33446) [x] Severe Complexity: follow up within 7 calendar days (55450) Follow up Testing, Pending results or Referrals [...] Hospitalist Medicine Inpatient Medical Services 04/13/2021, 11:54 [facility]06-25-2021 History of Present illness Narrative* Rachelle [...] 05, 2020 10:42 AM documented in this encounterScci Hospital [facility]06-29-2015 History of Past illness Narrative* Problem Noted Date Resolved Date Elevated troponin 09/09/2014 09/10/2014 Overview: 4. Elevated Troponin -EKG findings noted above -OSH Troponin mildly elevated -Will check repeat CE Hypokalemia 09/09/2014 05/01/2018 Overview: 5. Hypokalemia - Resolved Septic shock 06/14/2014 05/01/2018 NANCY (acute kidney injury) 06/14/20142018 MRSA pneumonia 06/13/2014 05/01/2018 documented as of this encounter (statuses as of 06/11/2021) [facility] of Past illness Narrative* Problem Noted Date Resolved Date Elevated troponin 09/09/2014 09/10/2014 Overview: 4. Elevated Troponin -EKG findings noted above -OSH Troponin mildly elevated -Will check repeat CE Hypokalemia 09/09/2014 05/01/2018 Overview: 5. Hypokalemia - Resolved Septic shock 06/14/2014 05/01/2018 NANCY (acute kidney injury) 06/14/20142018 MRSA pneumonia 06/13/2014 05/01/2018 documented as of this encounter (statuses as of 06/15/2021) [facility] of Past illness Narrative* Problem Noted Date Resolved Date Elevated troponin 09/09/2014 09/10/2014 Overview: 4. Elevated Troponin -EKG findings noted above -OSH Troponin mildly elevated -Will check repeat CE Hypokalemia 09/09/2014 05/01/2018 Overview: 5. Hypokalemia - Resolved Septic shock 06/14/2014 05/01/2018 NANCY (acute kidney injury) 06/14/20142018 MRSA pneumonia 06/13/2014 05/01/2018 documented as of this encounter (statuses as of 06/19/2021) [facility] of Past illness Narrative* Problem Noted Date Resolved Date Elevated troponin 09/09/2014 09/10/2014 Overview: 4. Elevated Troponin -EKG findings noted above -OSH Troponin mildly elevated -Will check repeat CE Hypokalemia 09/09/2014 05/01/2018 Overview: 5. Hypokalemia - Resolved Septic shock 06/14/2014 05/01/2018 NANCY (acute kidney injury) 06/14/20142018 MRSA pneumonia 06/13/2014 05/01/2018 documented as of this encounter (statuses as of 07/16/2021) [facility] of Past illness Narrative* Problem Noted Date Resolved Date Elevated troponin 09/09/2014 09/10/2014 Overview: 4. Elevated Troponin -EKG findings noted above -OSH Troponin mildly elevated -Will check repeat CE Hypokalemia 09/09/2014 05/01/2018 Overview: 5. Hypokalemia - Resolved Septic shock 06/14/2014 05/01/2018 NANCY (acute kidney injury) 06/14/20142018 MRSA pneumonia 06/13/2014 05/01/2018 documented as of this encounter (statuses as of 07/16/2021) [address]29-2015 History of Past illness Narrative* Problem Noted Date Resolved Date Elevated troponin 09/09/2014 09/10/2014 Overview: 4. Elevated Troponin -EKG findings noted above -OSH Troponin mildly elevated -Will check repeat CE Hypokalemia 09/09/2014 05/01/2018 Overview: 5. Hypokalemia - Resolved Septic shock 06/14/2014 05/01/2018 NANCY (acute kidney injury) 06/14/20142018 MRSA pneumonia 06/13/2014 05/01/2018 documented as of this encounter (statuses as of 07/17/2021) [address]29-2015 History of Past illness Narrative* Problem Noted Date Resolved Date Elevated troponin 09/09/2014 09/10/2014 Overview: 4. Elevated Troponin -EKG findings noted above -OSH Troponin mildly elevated -Will check repeat CE Hypokalemia 09/09/2014 05/01/2018 Overview: 5. Hypokalemia - Resolved Septic shock 06/14/2014 05/01/2018 NANCY (acute kidney injury) 06/14/20142018 MRSA pneumonia 06/13/2014 05/01/2018 documented as of this encounter (statuses as of 07/31/2021) [facility] of [facility] illness Narrative* Problem Noted Date Resolved Date Elevated troponin 09/09/2014 09/10/2014 Overview: 4. Elevated Troponin -EKG findings noted above -OSH Troponin mildly elevated -Will check repeat CE Hypokalemia 09/09/2014 05/01/2018 Overview: 5. Hypokalemia - Resolved Septic shock 06/14/2014 05/01/2018 NANCY (acute kidney injury) 06/14/20142018 MRSA pneumonia 06/13/2014 05/01/2018 documented as of this encounter (statuses as of 08/03/2021) [facility] of [facility] Narrative* Problem Noted Date Resolved Date Elevated troponin 09/09/2014 09/10/2014 Overview: 4. Elevated Troponin -EKG findings noted above -OSH Troponin mildly elevated -Will check repeat CE Hypokalemia 09/09/2014 05/01/2018 Overview: 5. Hypokalemia - Resolved Septic shock 06/14/2014 05/01/2018 NANCY (acute kidney injury) 06/14/20142018 MRSA pneumonia 06/13/2014 05/01/2018 documented as of this encounter (statuses as of 09/28/2021) [facility] of Past illness Narrative* Problem Noted Date Resolved Date Elevated troponin 09/09/2014 09/10/2014 Overview: 4. Elevated Troponin -EKG findings noted above -OSH Troponin mildly elevated -Will check repeat CE Hypokalemia 09/09/2014 05/01/2018 Overview: 5. Hypokalemia - Resolved Septic shock 06/14/2014 05/01/2018 NANCY (acute kidney injury) 06/14/20142018 MRSA pneumonia 06/13/2014 05/01/2018 documented as of this encounter (statuses as of 04/01/2022) [facility] of Past illness Narrative* Problem Noted Date Resolved Date Elevated troponin 09/09/2014 09/10/2014 Overview: 4. Elevated Troponin -EKG findings noted above -OSH Troponin mildly elevated -Will check repeat CE Hypokalemia 09/09/2014 05/01/2018 Overview: 5. Hypokalemia - Resolved Septic shock 06/14/2014 05/01/2018 NANCY (acute kidney injury) 06/14/20142018 MRSA pneumonia 06/13/2014 05/01/2018 documented as of this encounter (statuses as of 04/01/2022) [facility] of Past illness Narrative* Problem Noted Date Resolved Date Elevated troponin 09/09/2014 09/10/2014 Overview: 4. Elevated Troponin -EKG findings noted above -OSH Troponin mildly elevated -Will check repeat CE Hypokalemia 09/09/2014 05/01/2018 Overview: 5. Hypokalemia - Resolved Septic shock 06/14/2014 05/01/2018 NANCY (acute kidney injury) 06/14/20142018 MRSA pneumonia 06/13/2014 05/01/2018 documented as of this encounter (statuses as of 09/07/2022) [facility] Narrative* Problem Noted Date Diagnosed Date Resolved Date Elevated troponin 09/09/2014 09/10/2014 Overview: 4. Elevated Troponin -EKG findings noted above -OSH Troponin mildly elevated -Will check repeat CE Hypokalemia 09/09/2014 05/01/2018 Overview: 5. Hypokalemia - Resolved Septic shock 06/14/2014 05/01/2018 NANCY (acute kidney injury) 06/14/2014 MRSA pneumonia 06/13/2014 05/01/2018 documented as of this encounter (statuses as of 11/11/2022) [facility] Narrative* Problem Noted Date Diagnosed Date Resolved Date Elevated troponin 09/09/2014 09/10/2014 Overview: 4. Elevated Troponin -EKG findings noted above -OSH Troponin mildly elevated -Will check repeat CE Hypokalemia 09/09/2014 05/01/2018 Overview: 5. Hypokalemia - Resolved Septic shock 06/14/2014 05/01/2018 NANCY (acute kidney injury) 06/14/2014 MRSA pneumonia 06/13/2014 05/01/2018 documented as of this encounter (statuses as of 01/19/2023) [facility] of [facility] illness Narrative* Problem Noted Date Diagnosed Date Resolved Date Elevated troponin 09/09/2014 09/10/2014 Overview: 4. Elevated Troponin -EKG findings noted above -OSH Troponin mildly elevated -Will check repeat CE Hypokalemia 09/09/2014 05/01/2018 Overview: 5. Hypokalemia - Resolved Septic shock 06/14/2014 05/01/2018 NANCY (acute kidney injury) 06/14/2014 MRSA pneumonia 06/13/2014 05/01/2018 documented as of this encounter (statuses as of 01/28/2023) [facility] Narrative* Problem Noted Date Diagnosed Date Resolved Date Elevated troponin 09/09/2014 09/10/2014 Overview: 4. Elevated Troponin -EKG findings noted above -OSH Troponin mildly elevated -Will check repeat CE Hypokalemia 09/09/2014 05/01/2018 Overview: 5. Hypokalemia - Resolved Septic shock 06/14/2014 05/01/2018 NANCY (acute kidney injury) 06/14/2014 MRSA pneumonia 06/13/2014 05/01/2018 documented as of this encounter (statuses as of 02/19/2023) [facility] Narrative* Problem Noted Date Diagnosed Date Resolved Date Elevated troponin 09/09/2014 09/10/2014 Overview: 4. Elevated Troponin -EKG findings noted above -OSH Troponin mildly elevated -Will check repeat CE Hypokalemia 09/09/2014 05/01/2018 Overview: 5. Hypokalemia - Resolved Septic shock 06/14/2014 05/01/2018 NANCY (acute kidney injury) 06/14/2014 MRSA pneumonia 06/13/2014 05/01/2018 documented as of this encounter (statuses as of 04/15/2023) [facility] of Past illness Narrative* Problem Noted Date Diagnosed Date Resolved Date Elevated troponin 09/09/2014 09/10/2014 Overview: 4. Elevated Troponin -EKG findings noted above -OSH Troponin mildly elevated -Will check repeat CE Hypokalemia 09/09/2014 05/01/2018 Overview: 5. Hypokalemia - Resolved Septic shock 06/14/2014 05/01/2018 NANCY (acute kidney injury) 06/14/2014 MRSA pneumonia 06/13/2014 05/01/2018 documented as of this encounter (statuses as of 04/18/2023) [facility] of Past illness Narrative* Problem Noted Date Diagnosed Date Resolved Date Elevated troponin 09/09/2014 09/10/2014 Overview: 4. Elevated Troponin -EKG findings noted above -OSH Troponin mildly elevated -Will check repeat CE Hypokalemia 09/09/2014 05/01/2018 Overview: 5. Hypokalemia - Resolved Septic shock 06/14/2014 05/01/2018 NANCY (acute kidney injury) 06/14/2014 MRSA pneumonia 06/13/2014 05/01/2018 documented as of this encounter (statuses as of 04/18/2023) [facility] of Past illness Narrative* Problem Noted Date Diagnosed Date Resolved Date Elevated troponin 09/09/2014 09/10/2014 Overview: 4. Elevated Troponin -EKG findings noted above -OSH Troponin mildly elevated -Will check repeat CE Hypokalemia 09/09/2014 05/01/2018 Overview: 5. Hypokalemia - Resolved Septic shock 06/14/2014 05/01/2018 NANCY (acute kidney injury) 06/14/2014 MRSA pneumonia 06/13/2014 05/01/2018 documented as of this encounter (statuses as of 04/21/2023) [facility] Narrative* Problem Noted Date Diagnosed Date Resolved Date Elevated troponin 09/09/2014 09/10/2014 Overview: 4. Elevated Troponin -EKG findings noted above -OSH Troponin mildly elevated -Will check repeat CE Hypokalemia 09/09/2014 05/01/2018 Overview: 5. Hypokalemia - Resolved Septic shock 06/14/2014 05/01/2018 NANCY (acute kidney injury) 06/14/2014 MRSA pneumonia 06/13/2014 05/01/2018 documented as of this encounter (statuses as of 04/26/2023) [facility] of [facility] Narrative* Problem Noted Date Diagnosed Date Resolved Date Elevated troponin 09/09/2014 09/10/2014 Overview: 4. Elevated Troponin -EKG findings noted above -OSH Troponin mildly elevated -Will check repeat CE Hypokalemia 09/09/2014 05/01/2018 Overview: 5. Hypokalemia - Resolved Septic shock 06/14/2014 05/01/2018 NANCY (acute kidney injury) 06/14/2014 MRSA pneumonia 06/13/2014 05/01/2018 documented as of this encounter (statuses as of 05/24/2023) [facility] Narrative* Problem Noted Date Diagnosed Date Resolved Date Elevated troponin 09/09/2014 09/10/2014 Overview: 4. Elevated Troponin -EKG findings noted above -OSH Troponin mildly elevated -Will check repeat CE Hypokalemia 09/09/2014 05/01/2018 Overview: 5. Hypokalemia - Resolved Septic shock 06/14/2014 05/01/2018 NANCY (acute kidney injury) 06/14/2014 MRSA pneumonia 06/13/2014 05/01/2018 documented as of this encounter (statuses as of 05/24/2023) [facility] of Past illness Narrative* Problem Noted Date Diagnosed Date Resolved Date Elevated troponin 09/09/2014 09/10/2014 Overview: 4. Elevated Troponin -EKG findings noted above -OSH Troponin mildly elevated -Will check repeat CE Hypokalemia 09/09/2014 05/01/2018 Overview: 5. Hypokalemia - Resolved Septic shock 06/14/2014 05/01/2018 NANCY (acute kidney injury) 06/14/2014 MRSA pneumonia 06/13/2014 05/01/2018 documented as of this encounter (statuses as of 05/25/2023) [facility] Narrative* Problem Noted Date Diagnosed Date Resolved Date Elevated troponin 09/09/2014 09/10/2014 Overview: 4. Elevated Troponin -EKG findings noted above -OSH Troponin mildly elevated -Will check repeat CE Hypokalemia 09/09/2014 05/01/2018 Overview: 5. Hypokalemia - Resolved Septic shock 06/14/2014 05/01/2018 NANCY (acute kidney injury) 06/14/2014 MRSA pneumonia 06/13/2014 05/01/2018 documented as of this encounter (statuses as of 05/31/2023) [facility] Narrative* Problem Noted Date Diagnosed Date Resolved Date Elevated troponin 09/09/2014 09/10/2014 Overview: 4. Elevated Troponin -EKG findings noted above -OSH Troponin mildly elevated -Will check repeat CE Hypokalemia 09/09/2014 05/01/2018 Overview: 5. Hypokalemia - Resolved Septic shock 06/14/2014 05/01/2018 NANCY (acute kidney injury) 06/14/2014 MRSA pneumonia 06/13/2014 05/01/2018 documented as of this encounter (statuses as of 06/06/2023) [facility] of Past illness Narrative* Problem Noted Date Diagnosed Date Resolved Date Elevated troponin 09/09/2014 09/10/2014 Overview: 4. Elevated Troponin -EKG findings noted above -OSH Troponin mildly elevated -Will check repeat CE Hypokalemia 09/09/2014 05/01/2018 Overview: 5. Hypokalemia - Resolved Septic shock 06/14/2014 05/01/2018 NANCY (acute kidney injury) 06/14/2014 MRSA pneumonia 06/13/2014 05/01/2018 documented as of this encounter (statuses as of 06/13/2023) [facility] of Past illness Narrative* Problem Noted Date Diagnosed Date Resolved Date Elevated troponin 09/09/2014 09/10/2014 Overview: 4. Elevated Troponin -EKG findings noted above -OSH Troponin mildly elevated -Will check repeat CE Hypokalemia 09/09/2014 05/01/2018 Overview: 5. Hypokalemia - Resolved Septic shock 06/14/2014 05/01/2018 NANCY (acute kidney injury) 06/14/2014 MRSA pneumonia 06/13/2014 05/01/2018 documented as of this encounter (statuses as of 06/28/2023) [facility] of Past illness Narrative* Problem Noted Date Diagnosed Date Resolved Date Elevated troponin 09/09/2014 09/10/2014 Overview: 4. Elevated Troponin -EKG findings noted above -OSH Troponin mildly elevated -Will check repeat CE Hypokalemia 09/09/2014 05/01/2018 Overview: 5. Hypokalemia - Resolved Septic shock 06/14/2014 05/01/2018 NANCY (acute kidney injury) 06/14/2014 MRSA pneumonia 06/13/2014 05/01/2018 documented as of this encounter (statuses as of 06/28/2023) [facility] History of Past illness Narrative* Problem Noted Date Diagnosed Date Resolved Date Elevated troponin 09/09/2014 09/10/2014 Overview: 4. Elevated Troponin -EKG findings noted above -OSH Troponin mildly elevated -Will check repeat CE Hypokalemia 09/09/2014 05/01/2018 Overview: 5. Hypokalemia - Resolved Septic shock 06/14/2014 05/01/2018 NANCY (acute kidney injury) 06/14/2014 MRSA pneumonia 06/13/2014 05/01/2018 documented as of this encounter (statuses as of 06/28/2023) [facility] Cuca Flood [facility] November 14, 2022 4:36pm Note Date/Time November 14, 2022 4:36pm [facility] Medical Records Department [address] [place] [address] Instructions for Home/Discharge Instructions 11/14/22 1635 MR#: [id number] Acct: [id number] Name: LUIS STEELE II Rep #:[id number] : 1970 52 From: Cuca Flood MD [...] do you may need to take an snoi-gub-uisayia supplement or contact your primary care physician -You will need to follow-up with Dr. Berg with GI in his office upon discharge. Please call his office to schedule your hospital follow-up appointment (ph. [phone]) -Would recommend lab work (CBC) to check [...] to schedule your hospital follow-up appointment (ph. [phone])) Disposition Disposition (needs filled in before D/C Order can be placed): Home, Self Care 11/14/22 1636<Electronically signed by Cuca Flood MD>Cuca Flood MD CC: Dr. Antwan Buchanan DO; Dr. Kelton Gutierrez MD ~ Signed [facility] Work Phone: Discharge summary Author Cuca Flood [facility] November 14, 2022 4:47pm Note Date/Time November 14, 2022 4:47pm [facility] Medical Records Department [address] [place] [address] Discharge Summary 11/14/22 1641 MR#: [id number] Acct: [id number] Name: LUIS STEELE II Rep #:[id number] : 1970 52 From: Cuca Flood MD PCP: Dr. Antwan Buchanan DO Status:AD M IN Location: [place] [id number] Providers Date of Admission: 11/12/22 Date of Discharge: 11/14/22 Primary Care Physician: Dr. Antwan Buchanan DO Consultations 11/12/22 18:50 Consult: Gastroenterology Routine Consulting Provider: [facility] Reason for Consult: GI bleed EMERGENT [...] do you may need to take an ugzq-hbb-rvfzmir supplement or contact your primary care physician -You will need to follow-up with Dr. Berg with GI in his office upon discharge. Please call his office to schedule your hospital follow-up appointment (ph. [phone]) -Would recommend lab work (CBC) to check [...] % (Auto) 61.6, Lymph % (Auto) 23.5, Mason % (Auto) 12.5 H, Eos % (Auto) [...] do you may need to take an nhjm-rtg-mrqeizl supplement or contact your primary care physician -You will need to follow-up with Dr. Berg with GI in his office upon discharge. Please call his office to schedule your hospital follow-up appointment (ph. [phone]) -Would recommend lab work (CBC) to check [...] to schedule your hospital follow-up appointment (ph. [phone])) Disposition Disposition (needs filled in before D/C Order can be placed): Home, Self Care Charges/Coding Visit Charges Inpatient E&M: 41435 Disch Hosp >30min 11/14/22 1647 <Electronically signed by Cuca Flood MD> Cosigner Signature (if applicable): CC: Dr. Antwan Buchanan, DO; Dr. Cuca Flood MD~ Signed [facility] Work Phone: Evaluation + Plan note No data available for this section [facility] Evaluation note* Diagnosis COPD, severe (HCC) Chronic airway obstruction, not elsewhere classified Centrilobular emphysema (HCC) Other emphysema Tobacco use disorder Shortness of breath [facility]* Diagnosis Centrilobular emphysema (HCC)- Primary Other emphysema COPD, severe (HCC) Chronic airway obstruction, not elsewhere classified Abnormal CT scan, lung Other nonspecific abnormal finding of lung field documented [facility] this encounter [facility]* Diagnosis Shortness of breath- Primary Debility Debility, unspecified Chronic respiratory failure, unspecified whether with hypoxia or hypercapnia (HCC) Dysphagia, unspecified type Pharyngeal dysphagia Dysphagia, pharyngeal phase Gastroesophageal reflux disease with esophagitis Retained food in stomach Dyspepsia and other specified disorders of function of stomach Severe malnutrition (HCC) Nutritional marasmus documented in this encounter [facility] Work Phone: Evaluation note* Diagnosis COPD, severe (HCC) Chronic airway obstruction, not elsewhere classified [facility] Diagnosis COPD, severe (HCC) Chronic airway obstruction, not elsewhere classified documented [facility] encounter [facility]* Diagnosis Stage 4 very severe COPD by GOLD classification (HCC)- Primary Centrilobular emphysema (HCC) Other emphysema Lung nodules Other nonspecific abnormal finding of lung field Bronchiectasis without complication (HCC) Bronchiectasis without acute exacerbation Former cigarette smoker Personal history of tobacco use, presenting hazards to health documented [facility]* Diagnosis COPD, severe (HCC) Chronic airway obstruction, not elsewhere classified Centrilobular emphysema (HCC) Other emphysema Tobacco use disorder documented in this encounter [facility] note* Diagnosis Onset Date Resolution Status COPD exacerbation chronic [facility] Work Phone: Evaluation noteNo assessment information available [facility] Work Phone: Evaluation note* Diagnosis Other gastritis without bleeding documented in this encounter [facility] note* Diagnosis EDI (generalized anxiety disorder) Generalized anxiety disorder documented in this encounter [facility] note* Diagnosis Stage 4 very severe COPD by GOLD classification ([facility])- Primary Centrilobular emphysema (HCC) Other emphysema Abnormal CT scan, lung Other nonspecific abnormal finding of lung field SOB (shortness of breath) Shortness of breath Acute bilateral low back pain with bilateral sciatica Screening for prostate cancer Special screening for malignant neoplasm of prostate documented in this encounter [facility] note* Diagnosis Onset Date Resolution Status Acute anemia acute Acute GI bleeding acute COPD exacerbation chronic [facility] Work Phone: evaluation note* Diagnosis Choking, initial encounter- Primary documented in this encounter [facility] note* Diagnosis COPD exacerbation (HCC)- Primary Obstructive chronic bronchitis with exacerbation documented in this encounter [facility] note* Diagnosis Pneumothorax on left- Primary Other spontaneous pneumothorax Pneumothorax on left Other spontaneous pneumothorax Acute respiratory failure with hypoxia ([facility]) Orthopnea Orthopnea documented in this encounter [facility] note* Diagnosis Fatigue, unspecified type- Primary Anemia, unspecified type Stage 4 very severe COPD by GOLD classification (HCC) Pneumothorax, unspecified type Cardiac murmur, previously undiagnosed Undiagnosed cardiac murmurs documented in this encounter [facility] note* Diagnosis Chronic obstructive pulmonary disease, unspecified COPD type (HCC)- Primary Pulmonary emphysema, unspecified emphysema type (HCC) documented in this encounter [facility] note* Diagnosis 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- Primary Bone disorder Disorder of bone and cartilage, unspecified halfway (current) 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 Chronic fatigue Other malaise and fatigue SOB (shortness of breath) Shortness of breath Centrilobular emphysema (HCC) Other emphysema documented in this encounter [facility] note* Diagnosis 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- Primary documented in this encounter [facility] note* Diagnosis 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- Primary Bone disorder Disorder of bone and cartilage, unspecified halfway (current) 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 Chronic fatigue Other malaise and fatigue SOB (shortness of breath) Shortness of breath documented in this encounter [facility] note* Diagnosis Encounter for medication review and counseling Other specified counseling documented in this encounter [facility] note* Diagnosis 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 disorder Disorder of bone and cartilage, unspecified halfway (current) 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 Chronic fatigue Other malaise and fatigue SOB (shortness of breath) Shortness of breath documented in this encounter [facility] note* Diagnosis COPD with exacerbation (HCC) Obstructive chronic bronchitis with exacerbation documented in this encounter [facility] note* Diagnosis Chronic obstructive pulmonary disease, unspecified COPD type (HCC) documented in this encounter [facility] note* Diagnosis EDI (generalized anxiety disorder) Generalized anxiety disorder documented in this encounter [facility] note* Diagnosis Tobacco abuse Tobacco use disorder documented in this encounter [facility] note* Diagnosis SOB (shortness of breath)- Primary Shortness of breath Vitamin D deficiency Unspecified vitamin D deficiency Chronic obstructive pulmonary disease, unspecified COPD type (HCC) EDI (generalized anxiety disorder) Generalized anxiety disorder Stage 4 very severe COPD by GOLD classification ([facility]) Iron deficiency anemia, unspecified iron deficiency anemia type Fatigue, unspecified type Dyslipidemia Other and unspecified hyperlipidemia Hyperglycemia Other abnormal glucose documented in this encounter [facility] note* Diagnosis EDI (generalized anxiety disorder) Generalized anxiety disorder documented in this encounter [facility] Discharge instructions* Attachments The following attachments cannot be sent through Care Everywhere. * Aspiration Pneumonia Discharge Instructions (Montserratian) [facility] No data available for this section [facility] Reason for referral (narrative)* Diagnostic Procedure Only (Routine) - Pending Review Specialty Diagnoses / Procedures Referred By Kat stewart Referred To Contact XR IMAGING Diagnoses Acute bilateral low back pain with bilateral sciatica Procedures XR LUMBAR GENERAL 3V AP/LAT/L5-S1 RADEX SPINE LUMBOSACRAL 2/3 VIEWS Antwan Buchanan, [address] [place] [address] Xr Imaging Referral ID Status Reason Start Date Expiration Date Visits Requested Visits Authorized [id number] Pending Review Auto-Generat ed Referral 09/06/2022 10/06/2023 1 1 * Outpatient Procedure (Routine) - Additional Clinical Info Needed Specialty Diagnoses / Procedures Referred By Contac t Referred To [facility] Diagnoses Stage 4 very severe COPD by GOLD classification (HCC) Centrilobular emphysema (HCC) Abnormal CT scan, lung SOB (shortness of breath) Procedures ECHO ECHO TTHRC R-T 2D W/WOM-MODE COMPL SPEC&COLR D Antwan Buchanan DO [address] [place] [address] [address] Referral ID Status Reason Start Date Expiration Date Visits Requested Visits Authorized [id number] Additional Clinical Info Needed Auto-Generat ed Referral 09/06/2022 09/06/2023 1 1 * Outpatient Procedure (Routine) - Authorized Specialty Diagnoses / Procedures Referred By Contac t Referred To [facility] Diagnoses Stage 4 very severe COPD by GOLD classification (HCC) Centrilobular emphysema (HCC) Abnormal CT scan, lung SOB (shortness of breath) Procedures ECG COMPLETE ECG ROUTINE ECG W/LEAST 12 LDS W/I&R Antwan Buchanan DO [address] [place] [address] [address] Referral ID Status Reason Start Date Expiration Date Visits Requested Visits Authorized [id number] Authorized Auto-Generat ed Referral 09/06/2022 09/06/2023 1 1 * Outpatient Procedure (Routine) - Authorized Specialty Diagnoses / Procedures Referred By Contac t Referred To [facility] Diagnoses Stage 4 very severe COPD by GOLD classification (HCC) Centrilobular emphysema (HCC) Abnormal CT scan, lung SOB (shortness of breath) Procedures LUNG DIFFUSION CAPACITY (DLCO) DIFFUSING CAPACITY Antwan Buchanan DO [address] [place] [address] [address] Referral ID Status Reason Start Date Expiration Date Visits Requested Visits Authorized [id number] Authorized Auto-Generat ed Referral 09/06/2022 10/06/2023 1 1 * Outpatient Procedure (Routine) - Authorized Specialty Diagnoses / Procedures Referred By Contac t Referred To Contact [facility] Diagnoses Stage 4 very severe COPD by GOLD classification (HCC) Centrilobular emphysema (HCC) Abnormal CT scan, lung SOB (shortness of breath) Procedures SPIROMETRY - BASELINE AND POST DILATOR BRNCDILAT RSPSE SPMTRY PRE&POST-BRNCDILAT ADMN Antwan Buchanan DO [address] [place] [address] [place] [address] Referral ID Status Reason Start Date Expiration Date Visits Requested Visits Authorized [id number] Authorized Auto-Generat ed Referral 09/06/2022 10/06/2023 1 [...] THORAX W/O CNTRST Antwan Buchanan DO [address] [place] [address] Ct Imaging Referral ID Status Reason Start Date Expiration Date Visits Requested Visits Authorized [id number] Additional Clinical Info Needed Auto-Generat ed Referral 09/06/2022 10/06/2023 1 1 [facility] for referral (narrative)* Outpatient Procedure (Routine) - Authorized Specialty Diagnoses / Procedures Referred By Contac t Referred To [facility] Diagnoses Stage 4 very severe COPD by GOLD classification (HCC) Procedures SPIROMETRY - BASELINE AND POST DILATOR BRNCDILAT RSPSE SPMTRY PRE&POST-BRNCDILAT ADMN Antwan Buchanan DO [address] [place] [address] [address] Referral ID Status Reason Start Date Expiration Date Visits Requested Visits Authorized [id number] Authorized Auto-Generat ed Referral 02/18/2023 03/19/2024 1 1 * Outpatient Procedure (Routine) - Open Specialty Diagnoses / Procedures Referred By Contac t Referred To Contact [facility] [place] Diagnoses Stage 4 very severe COPD by GOLD classification ([facility]) Cardiac murmur, previously undiagnosed Procedures ECHO ECHO TTHRC R-T 2D W/WOM-MODE COMPL SPEC&COLR D Antwan Buchanan DO [address] [place] [address] [facility] Vascular [address] [address] Referral ID Status Reason Start Date Expiration Date V isits Requested Visits Authorized [id number] Open Auto-Generate d Referral 02/18/2023 02/18/2024 1 1 * Outpatient Procedure (Routine) - Authorized Specialty Diagnoses / Procedures Referred By Contac t Referred To [facility] [place] Diagnoses Stage 4 very severe COPD by GOLD classification ([facility]) Procedures LUNG DIFFUSION CAPACITY (DLCO) DIFFUSING CAPACITY Antwan Buchanan DO [address] [place] [address] [address] Referral ID Status Reason Start Date Expiration Date Visits Requested Visits Authorized [id number] Authorized Auto-Generat ed Referral 02/18/2023 03/19/2024 1 1 [facility] for referral (narrative)* Outpatient Procedure (Routine) - Pending Review Specialty Diagnoses / Procedures Referred By Kat stewart Referred To [facility] [place] Diagnoses 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 Chronic fatigue SOB (shortness of breath) Procedures SIX MINUTE WALK CARDIOPULMONARY EXERCISE STRESS Inez Park DO [address] [place] [address] [address] Referral ID Status Reason Start Date Expiration Date Visits Requested Visits Authorized [id number] Pending Review Auto-Generat ed Referral 07/25/2023 07/26/2024 1 1 * Outpatient Procedure (Routine) - Pending Review Specialty Diagnoses / Procedures Referred By Kat stewart Referred To [facility] Diagnoses 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 disorder 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 Chronic fatigue SOB (shortness of breath) Procedures SPIROMETRY BASELINE ONLY SPMTRY W/VC EXPIRATORY KEKE W/WO MXML VOL VNTJ Inez Park DO [address] [place] [address] [address] Referral ID Status Reason Start Date Expiration Date Visits Requested Visits Authorized [id number] Pending Review Auto-Generat ed Referral 07/25/2023 07/26/2024 1 1 * Outpatient Procedure (Routine) - Pending Review Specialty Diagnoses / Procedures Referred By Kat stewart Referred To [facility] Diagnoses 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 disorder 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 Chronic fatigue SOB (shortness of breath) Procedures LUNG VOLUMES Inez Park DO [address] [place] [address] [address] Referral ID Status Reason Start Date Expiration Date Visits Requested Visits Authorized [id number] Pending Review Auto-Generat ed Referral 07/25/2023 07/26/2024 1 1 * Outpatient Procedure (Routine) - Pending Review Specialty Diagnoses / Procedures Referred By Kat stewart Referred [facility] Diagnoses 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 disorder 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 Chronic fatigue SOB (shortness of breath) Procedures LUNG DIFFUSION CAPACITY (DLCO) DIFFUSING CAPACITY Inez Park DO [address] [place] [address] [address] Referral ID Status Reason Start Date Expiration Date Visits Requested Visits Authorized [id number] Pending Review Auto-Generat ed Referral 07/25/2023 07/26/2024 1 1 * Outpatient Procedure (Routine) - Pending Review Specialty Diagnoses / Procedures Referred By Kat stewart Referred To [facility] Diagnoses 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 Procedures ARTERIAL BLOOD GAS, ROOM AIR GASES BLOOD PH DIRECT DAVID XCPT PULSE OXIMITRY Inez Park DO [address] [place] [address] [address] Referral ID Status Reason Start Date Expiration Date Visits Requested Visits Authorized [id number] Pending Review Auto-Generat ed Referral 07/25/2023 07/26/2024 1 1 * Outpatient Procedure (Routine) - Pending Review Specialty Diagnoses / Procedures Referred By Kat stewart Referred To Contact [facility] Diagnoses 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 Procedures ECHO WITH AGITATED SALINE CONTRAST ECHO TRANSTHORAC R-T 2D W/WO M-MODE REC COMP Inez Park DO [address] [place] [address] [facility] Vascular [address] [address] Referral ID Status Reason Start Date Expiration Date Visits Requested Visits Authorized [id number] Pending Review Auto-Generat ed Referral 07/25/2023 06/26/2024 1 1 * Outpatient Procedure (Routine) - Pending Review Specialty Diagnoses / Procedures Referred By Kat stewart Referred To Contact [facility] Diagnoses 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 disorder 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 Chronic fatigue SOB (shortness of breath) Procedures ECG COMPLETE ECG ROUTINE ECG W/LEAST 12 LDS W/I&R Inez Park DO [address] [place] [address] [facility] [address] [place] [address] Referral ID Status Reason Start Date Expiration Date Visits Requested Visits Authorized [id number] Pending Review Auto-Generat ed Referral 07/25/2023 06/26/2024 1 1 * MRI/CT (Routine) - Pending Review Specialty Diagnoses / Procedures Referred By Kat stewart Referred To Contact CT IMAGING Diagnoses 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 disorder 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 Chronic fatigue SOB (shortness of breath) Procedures CT CHEST WO IVCON DIAGNOSTIC COMPUTED TOMOGRAPHY THORAX W/O CNTRST Inez Park DO [address] [place] [address] Ct Imaging [place] [address] Referral ID Status Reason Start Date Expiration Date Visits Requested Visits Authorized [id number] Pending Review Auto-Generat ed Referral 07/25/2023 07/26/2024 1 1 [facility] Reason for Referral Specialty Diagnoses / Procedures Referred By Kat stewart Referred To Contact CT IMAGING Diagnoses COPD, severe (HCC) Centrilobular emphysema (HCC) Tobacco use disorder Shortness of breath Procedures CT CHEST WO IVCON DIAGNOSTIC COMPUTED TOMOGRAPHY THORAX W/O CNTRST Antwan Buchanan, DO [address] [place] [address] Ct Imaging Referral ID Status Reason Start Date Expiration Date V isits Requested Visits Authorized [id number] Closed Auto-Generat ed Referral Patient Cleared - Admin/Chairm an/Director advise to proceed 05/29/2021 07/31/2021 1 1 Specialty Diagnoses / Procedures Referred By Contac t Referred To Contact Pulmonary and Critical Care Medicine Diagnoses Centrilobular emphysema (HCC) COPD, severe (HCC) Abnormal CT scan, lung Procedures CONSULT TO PULM/CRITICAL CARE OFFICE/OUTPATIENT [facility] MDM 60-74 MINUTES Shelia Mahmood, TRAFFIC INCIDENT MANAGEMENT MANAGER.PARTS CLASSIFIER [address] [place] [address] Referral ID Status Reason Start Date Expiration Date Visits Requested Visits Authorized [id number] Authorized PCP Requested Referral 06/11/2021 06/11/2022 1 1 Specialty Diagnoses / Procedures Referred By Contac t Referred To Contact Otolaryngology Diagnoses Pharyngeal dysphagia Charles Patten MD [address] [address] [facility] [address] [place] [address] Referral ID Status Reason Start Date Expiration Date V isits Requested Visits Authorized Open Specialty Services Required 07/09/2021 07/09/2022 1 1 Scheduling Instructions [facility] [address] [place], [place] [address] F: [phone] Specialty Diagnoses / Procedures Referred By Contac t Referred To Contact CT IMAGING Diagnoses Centrilobular emphysema (HCC) Lung nodules Procedures CT CHEST WO IVCON DIAGNOSTIC COMPUTED TOMOGRAPHY THORAX W/O CNTRST Manuel Block MD [address] [place] [address] Ct Imaging Referral ID Status Reason Start Date Expiration Date Visits Requested Visits Authorized [id number] Pending Review Auto-Generat ed Referral 01/16/2022 08/15/2022 1 1 Specialty Diagnoses / Procedures Referred By Contac t Referred To Contact [facility] Diagnoses Stage 4 very severe COPD by GOLD classification (HCC) Procedures LUNG DIFFUSION CAPACITY (DLCO) DIFFUSING CAPACITY Manuel Block MD [address] [place] [address] [address] Referral ID Status Reason Start Date Expiration Date V isits Requested Visits Authorized [id number] Closed Auto-Generate d Referral 07/16/2021 03/13/2022 1 1 Specialty Diagnoses / Procedures Referred By Contac t Referred To Contact [facility] Diagnoses Stage 4 very severe COPD by GOLD classification ([facility]) Procedures LUNG VOLUMES Manuel Block MD [address] [place] [address] [address] Referral ID Status Reason Start Date Expiration Date V isits Requested Visits Authorized [id number] Closed Auto-Generate d Referral 07/16/2021 03/13/2022 1 1 Specialty Diagnoses / Procedures Referred By Contac t Referred To Contact Manuel Block MD [address] [place] [address] Referral ID Status Reason Start Date Expiration Date Visits Re quested Visits Authorized [id number] Closed 1 1 Specialty Diagnoses / Procedures Referred By Contac t Referred To Contact Glen Mike MD [address] [place] [address] Referral ID Status Reason Start Date Expiration Date V isits Requested Visits Authorized [id number] Pending Review 1 1 Specialty Diagnoses / [...] CONTRAST Manuel Block MD [address] [place] [address] [facility] [address] [address] Referral ID Status Reason Start Date Expiration Date Visits Requested Visits Authorized [id number] Pending Review Financial Clearance Required - [employer] Payor 04/18/2023 04/17/2024 99 99 Specialty Diagnoses / Procedures Referred By Kat stewart Referred To Contact Nutrition Diagnoses 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 Chronic fatigue SOB (shortness of breath) Centrilobular emphysema (HCC) Procedures CONSULT TO NUTRITION THERAPY MEDICAL NUTRITION ASSMT&IVNTJ INDIV EACH 15 SC MEDICAL NUTRITION ASSMT&IVNTJ INDIV EACH 15 SC MEDICAL NUTRITION ASSMT&IVNTJ INDIV EACH 15 SC MEDICAL NUTRITION ASSMT&IVNTJ INDIV EACH 15 SC Inez Park DO [address] [place] [address] Referral ID Status Reason Start Date Expiration Date Visits Requested Visits Authorized [id number] Authorized PCP Requested Referral 05/30/2023 04/20/2024 1 1 Specialty Diagnoses / Procedures Referred By Kat stewart [facility] Diagnoses 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 Chronic fatigue SOB (shortness of breath) Centrilobular emphysema (HCC) Procedures PVR ANK PRESS HOMAR VAS LAB NON-INVAS PHYSIOLOGIC STD EXTREMITY ART 2 LEVEL Inez Park DO [address] [place] [address] [facility] Vascular [id number] [place] [address] Referral ID Status Reason Start Date Expiration Date Visits Requested Visits Authorized [id number] Pending Review Auto-Generat ed Referral 05/30/2023 04/20/2024 1 1 Specialty Diagnoses / Procedures Referred By Contac t Referred To Contact [facility] [place] Diagnoses 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 Chronic fatigue SOB (shortness of breath) Centrilobular emphysema (HCC) Procedures US CAROTID ARTERIES HOMAR VAS LAB DUPLEX SCAN EXTRACRANIAL ART COMPL BI STUDY Inez Park DO [address] [place] [address] [address] Referral ID Status Reason Start Date Expiration Date Visits Requested Visits Authorized [id number] Pending Review Auto-Generat ed Referral 05/30/2023 04/20/2024 1 1 Specialty Diagnoses / Procedures Referred By Contac t Referred To [facility] Diagnoses 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 Chronic fatigue SOB (shortness of breath) Centrilobular emphysema (HCC) Procedures SIX MINUTE WALK CARDIOPULMONARY EXERCISE STRESS Inez Park DO [address] [place] [address] [address] Referral ID Status Reason Start Date Expiration Date Visits Requested Visits Authorized [id number] Pending Review Auto-Generat ed Referral 05/30/2023 05/20/2024 1 1 Specialty Diagnoses / Procedures Referred By Contac t Referred To Contact [facility] [place] Diagnoses 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 disorder 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 Chronic fatigue SOB (shortness of breath) Centrilobular emphysema (HCC) Procedures SPIROMETRY BASELINE ONLY SPMTRY W/VC EXPIRATORY KEKE W/WO MXML VOL VNTJ Inez Park DO [address] [place] [address] Respiratory [address] [place] [address] Referral ID Status Reason Start Date Expiration Date Visits Requested Visits Authorized [id number] Pending Review Auto-Generat ed Referral 05/30/2023 05/20/2024 1 1 Specialty Diagnoses / Procedures Referred By Contac t Referred To [facility] [place] Diagnoses 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 disorder 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 Chronic fatigue SOB (shortness of breath) Centrilobular emphysema (HCC) Procedures LUNG VOLUMES Inez Park DO [address] [place] [address] [address] Referral ID Status Reason Start Date Expiration Date Visits Requested Visits Authorized [id number] Pending Review Auto-Generat ed Referral 05/30/2023 05/20/2024 1 1 Specialty Diagnoses / [facility] [place] Diagnoses 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 disorder 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 Chronic fatigue SOB (shortness of breath) Centrilobular emphysema (HCC) Procedures LUNG DIFFUSION CAPACITY (DLCO) DIFFUSING CAPACITY Inez Park DO [address] [place] [address] [address] Referral ID Status Reason Start Date Expiration Date Visits Requested Visits Authorized [id number] Pending Review Auto-Generat ed Referral 05/30/2023 05/20/2024 1 1 Specialty Diagnoses / Procedures Referred By Contac t Referred To [facility] [place] Diagnoses 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 disorder 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 Chronic fatigue SOB (shortness of breath) Centrilobular emphysema (HCC) Procedures ARTERIAL BLOOD GAS, ROOM AIR GASES BLOOD PH DIRECT DAVID XCPT PULSE OXIMITRY Inez Park DO [address] [place] [address] [address] Referral ID Status Reason Start Date Expiration Date Visits Requested Visits Authorized [id number] Pending Review Auto-Generat ed Referral 05/30/2023 05/20/2024 1 1 Specialty Diagnoses / Procedures Referred By Kat t Referred To Contact [facility] [place] Diagnoses 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 Chronic fatigue SOB (shortness of breath) Centrilobular emphysema (HCC) Procedures ECHO WITH AGITATED SALINE CONTRAST ECHO TRANSTHORAC R-T 2D W/WO M-MODE REC COMP Inez Park DO [address] [place] [address] [facility] Vascular [address] [address] Referral ID Status Reason Start Date Expiration Date Visits Requested Visits Authorized [id number] Pending Review Auto-Generat ed Referral 05/30/2023 04/20/2024 1 1 Specialty Diagnoses / Procedures Referred By Kat t Referred To Contact 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 Chronic fatigue SOB (shortness of breath) Centrilobular emphysema (HCC) Procedures ECG COMPLETE ECG ROUTINE ECG W/LEAST 12 LDS W/I&R Inez Park DO [address] [place] [address] [facility] Vascular [address] [address] Referral ID Status Reason Start Date Expiration Date Visits Requested Visits Authorized [id number] Pending Review Auto-Generat ed Referral 05/30/2023 04/20/2024 1 1 Specialty Diagnoses / Procedures Referred By Kat t Referred To Contact CT IMAGING Diagnoses 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 Chronic fatigue SOB (shortness of breath) Centrilobular emphysema (HCC) Procedures CT CHEST WO IVCON DIAGNOSTIC COMPUTED TOMOGRAPHY THORAX W/O CNTRST Inez Park DO [address] [place] [address] Ct Imaging [facility] Referral ID Status Reason Start Date Expiration Date Visits Requested Visits Authorized [id number] Pending Review Auto-Generat ed Referral 05/30/2023 05/20/2024 1 1 Specialty Diagnoses / Procedures Referred By Kat t Referred To Contact CT IMAGING Diagnoses 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 Chronic fatigue SOB (shortness of breath) Procedures CT CHEST WO IVCON DIAGNOSTIC COMPUTED TOMOGRAPHY THORAX W/O CNTRST Inez Park DO [address] [place] [id number] [place] [address] Referral ID Status Reason Start Date Expiration Date V isits Requested Visits Authorized [id number] Closed Auto-Generate d Referral Patient Cleared INN/SMCP Payor Auth Obtained 07/25/2023 07/26/2024 1 1 Advance Directives Latest Code Status on File Code Status Date Activated Date Inactivated Comments Full Code 07/02/2021 12:03 AM Full Code 04/05/2021 1:04 AM 04/13/2021 6:44 PM Advance Directive Response Recorded Date/ Time Advance Directives No November 5:45pm Living Will No August 15, 2021 1 1:48am Power of Continuous Process Machine Operator No August 15, 2021 11:48am Advance Directive Response Recorded Date/ Time Advance Directives No November 5:45pm Living Will No August 15, 2021 3 :00pm Power of Continuous Process Machine Operator Yes August 15, 2021 3:00pm Advance Directive Response Recorded Date/ Time Advance Directives No November 4:45pm Living Will No February 10, 2 022 1:17pm Power of Continuous Process Machine Operator No February 10, 2022 1:17pm Advance Directive Response Recorded Date/ Time Name of Medical Power of Continuous Process Machine Operator Stalin Call November 12, 2022 6:56pm Advance Directives No November 5:45pm Living Will No November 12, 2 023 6:56pm Power of Continuous Process Machine Operator Yes November 12, 2022 6:56pm Latest Code Status on File Code Status Date Activated Date Inactivated Comments Full Code 01/26/2023 8:03 PM Latest Code Status on File Code Status Date Activated Date Inactivated Comments Full Code 01/26/2023 8:03 PM 02/08/2023 5:11 PM Advance Directive Response Recorded Date/ Time Advance Directives No November 4:45pm Living Will No April 29, 2 024 1:15pm Power of Continuous Process Machine Operator Yes April 29, 2023 1:26pm Advance Directives on File No 2023 1:15pm Advance Directive Response Recorded Date/ Time Advance Directives No November 5:45pm Living Will No April 29 024 2:15pm Power of Continuous Process Machine Operator Yes April 29, 2023 2:26pm Advance Directives [...] or prosecute any alcohol or drug abuse patient.[facility] the event this information is protected by the Federal Confidentiality of Alcohol and Drug Abuse Patient Records regulations: The Federal rules restrict any use of the information to criminally investigate or prosecute any alcohol or drug abuse patient.[facility]imaIn the event this information is protected by the Federal Confidentiality of Alcohol and Drug Abuse Patient Records regulations: The Federal rules restrict any use of the information to criminally investigate or prosecute any alcohol or drug abuse patient.[facility]imaIn the event this information is protected by the Federal Confidentiality of Alcohol and Drug Abuse Patient Records regulations: The Federal rules restrict any use of the information to criminally investigate or prosecute any alcohol or drug abuse patient.[facility]imaIn the event this information is protected by the Federal Confidentiality of Alcohol and Drug Abuse Patient Records regulations: The Federal rules restrict any use of the information to criminally investigate or prosecute any alcohol or drug abuse patient.[facility]imaIn the event this information is protected by the Federal Confidentiality of Alcohol and Drug Abuse Patient Records regulations: The Federal rules restrict any use of the information to criminally investigate or prosecute any alcohol or drug abuse patient.[facility]imaIn the event this information is protected by the Federal Confidentiality of Alcohol and Drug Abuse Patient Records regulations: The Federal rules restrict any use of the information to criminally investigate or prosecute any alcohol or drug abuse patient.[facility]imaIn the event this information is protected by the Federal Confidentiality of Alcohol and Drug Abuse Patient Records regulations: The Federal rules restrict any use of the information to criminally investigate or prosecute any alcohol or drug abuse patient.[facility]imaIn the event this information is protected by the Federal Confidentiality of Alcohol and Drug Abuse Patient Records regulations: The Federal rules restrict any use of the information to criminally investigate or prosecute any alcohol or drug abuse patient.[facility]imaIn the event this information is protected by the Federal Confidentiality of Alcohol and Drug Abuse Patient Records regulations: The Federal rules restrict any use of the information to criminally investigate or prosecute any alcohol or drug abuse patient.[facility]imaIn the event this information is protected by the Federal Confidentiality of Alcohol and Drug Abuse Patient Records regulations: The Federal rules restrict any use of the information to criminally investigate or prosecute any alcohol or drug abuse patient.[facility]imaIn the event this information is protected by the Federal Confidentiality of Alcohol and Drug Abuse Patient Records regulations: The Federal rules restrict any use of the information to criminally investigate or prosecute any alcohol or drug abuse patient.[facility]imaIn the event this information is protected by the Federal Confidentiality of Alcohol and Drug Abuse Patient Records regulations: The Federal rules restrict any use of the information to criminally investigate or prosecute any alcohol or drug abuse patient.[facility]imaIn the event this information is protected by the Federal Confidentiality of Alcohol and Drug Abuse Patient Records regulations: The Federal rules restrict any use of the information to criminally investigate or prosecute any alcohol or drug abuse patient.[facility]imaIn the event this information is protected by the Federal Confidentiality of Alcohol and Drug Abuse Patient Records regulations: The Federal rules restrict any use of the information to criminally investigate or prosecute any alcohol or drug abuse patient.[facility]imaIn the event this information is protected by the Federal Confidentiality of Alcohol and Drug Abuse Patient Records regulations: The Federal rules restrict any use of the information to criminally investigate or prosecute any alcohol or drug abuse patient.[facility]imaIn the event this information is protected by the Federal Confidentiality of Alcohol and Drug Abuse Patient Records regulations: The Federal rules restrict any use of the information to criminally investigate or prosecute any alcohol or drug abuse patient.[facility]imaIn the event this information is protected by the Federal Confidentiality of Alcohol and Drug Abuse Patient Records regulations: The Federal rules restrict any use of the information to criminally investigate or prosecute any alcohol or drug abuse patient.[facility]imaIn the event this information is protected by the Federal Confidentiality of Alcohol and Drug Abuse Patient Records regulations: The Federal rules restrict any use of the information to criminally investigate or prosecute any alcohol or drug abuse patient.[facility]imaIn the event this information is protected by the Federal Confidentiality of Alcohol and Drug Abuse Patient Records regulations: The Federal rules restrict any use of the information to criminally investigate or prosecute any alcohol or drug abuse patient.[facility]imaIn the event this information is protected by the Federal Confidentiality of Alcohol and Drug Abuse Patient Records regulations: The Federal rules restrict any use of the information to criminally investigate or prosecute any alcohol or drug abuse patient.[facility]imaIn the event this information is protected by the Federal Confidentiality of Alcohol and Drug Abuse Patient Records regulations: The Federal rules restrict any use of the information to criminally investigate or prosecute any alcohol or drug abuse patient.[facility]imaIn the event this information is protected by the Federal Confidentiality of Alcohol and Drug Abuse Patient Records regulations: The Federal rules restrict any use of the information to criminally investigate or prosecute any alcohol or drug abuse patient.[facility]imaIn the event this information is protected by the Federal Confidentiality of Alcohol and Drug Abuse Patient Records regulations: The Federal rules restrict any use of the information to criminally investigate or prosecute any alcohol or drug abuse patient.[facility]imaIn the event this information is protected by the Federal Confidentiality of Alcohol and Drug Abuse Patient Records regulations: The Federal rules restrict any use of the information to criminally investigate or prosecute any alcohol or drug abuse patient.[facility]imaIn the event this information is protected by the Federal Confidentiality of Alcohol and Drug Abuse Patient Records regulations: The Federal rules restrict any use of the information to criminally investigate or prosecute any alcohol or drug abuse patient.[facility]imaIn the event this information is protected by the Federal Confidentiality of Alcohol and Drug Abuse Patient Records regulations: The Federal rules restrict any use of the information to criminally investigate or prosecute any alcohol or drug abuse patient.[facility]imaIn the event this information is protected by the Federal Confidentiality of Alcohol and Drug Abuse Patient Records regulations: The Federal rules restrict any use of the information to criminally investigate or prosecute any alcohol or drug abuse patient.[facility]imaIn the event this information is protected by the Federal Confidentiality of Alcohol and Drug Abuse Patient Records regulations: The Federal rules restrict any use of the information to criminally investigate or prosecute any alcohol or drug abuse patient.[facility]imaIn the event this information is protected by the Federal Confidentiality of Alcohol and Drug Abuse Patient Records regulations: The Federal rules restrict any use of the information to criminally investigate or prosecute any alcohol or drug abuse patient.[facility]imaIn the event this information is protected by the Federal Confidentiality of Alcohol and Drug Abuse Patient Records regulations: The Federal rules restrict any use of the information to criminally investigate or prosecute any alcohol or drug abuse patient.[facility]imaIn the event this information is protected by the Federal Confidentiality of Alcohol and Drug Abuse Patient Records regulations: The Federal rules restrict any use of the information to criminally investigate or prosecute any alcohol or drug abuse patient.[facility]imaIn the event this information is protected by the Federal Confidentiality of Alcohol and Drug Abuse Patient Records regulations: The Federal rules restrict any use of the information to criminally investigate or prosecute any alcohol or drug abuse patient.[facility]imaIn the event this information is protected by the Federal Confidentiality of Alcohol and Drug Abuse Patient Records regulations: The Federal rules restrict any use of the information to criminally investigate or prosecute any alcohol or drug abuse patient.[facility]imaIn the event this information is protected by the Federal Confidentiality of Alcohol and Drug Abuse Patient Records regulations: The Federal rules restrict any use of the information to criminally investigate or prosecute any alcohol or drug abuse patient.[facility]imaIn the event this information is protected by the Federal Confidentiality of Alcohol and Drug Abuse Patient Records regulations: The Federal rules restrict any use of the information to criminally investigate or prosecute any alcohol or drug abuse patient.[facility]imaIn the event this information is protected by the Federal Confidentiality of Alcohol and Drug Abuse Patient Records regulations: The Federal rules restrict any use of the information to criminally investigate or prosecute any alcohol or drug abuse patient.[facility]imaIn the event this information is protected by the Federal Confidentiality of Alcohol and Drug Abuse Patient Records regulations: The Federal rules restrict any use of the information to criminally investigate or prosecute any alcohol or drug abuse patient.[facility]imaIn the event this information is protected by the Federal Confidentiality of Alcohol and Drug Abuse Patient Records regulations: The Federal rules restrict any use of the information to criminally investigate or prosecute any alcohol or drug abuse patient.[facility]imaIn the event this information is protected by the Federal Confidentiality of Alcohol and Drug Abuse Patient Records regulations: The Federal rules restrict any use of the information to criminally investigate or prosecute any alcohol or drug abuse patient.[facility]imaIn the event this information is protected by the Federal Confidentiality of Alcohol and Drug Abuse Patient Records regulations: The Federal rules restrict any use of the information to criminally investigate or prosecute any alcohol or drug abuse patient.[facility]imaIn the event this information is protected by the Federal Confidentiality of Alcohol and Drug Abuse Patient Records regulations: The Federal rules restrict any use of the information to criminally investigate or prosecute any alcohol or drug abuse patient.[facility]imaIn the event this information is protected by the Federal Confidentiality of Alcohol and Drug Abuse Patient Records regulations: The Federal rules restrict any use of the information to criminally investigate or prosecute any alcohol or drug abuse patient.[facility]imaIn the event this information is protected by the Federal Confidentiality of Alcohol and Drug Abuse Patient Records regulations: The Federal rules restrict any use of the information to criminally investigate or prosecute any alcohol or drug abuse patient.[facility]imaIn the event this information is protected by the Federal Confidentiality of Alcohol and Drug Abuse Patient Records regulations: The Federal rules restrict any use of the information to criminally investigate or prosecute any alcohol or drug abuse patient.[facility]imaIn the event this information is protected by the Federal Confidentiality of Alcohol and Drug Abuse Patient Records regulations: The Federal rules restrict any use of the information to criminally investigate or prosecute any alcohol or drug abuse patient.[facility]imaIn the event this information is protected by the Federal Confidentiality of Alcohol and Drug Abuse Patient Records regulations: The Federal rules restrict any use of the information to criminally investigate or prosecute any alcohol or drug abuse patient.[facility]imaIn the event this information is protected by the Federal Confidentiality of Alcohol and Drug Abuse Patient Records regulations: The Federal rules restrict any use of the information to criminally investigate or prosecute any alcohol or drug abuse patient.[facility]imaIn the event this information is protected by the Federal Confidentiality of Alcohol and Drug Abuse Patient Records regulations: The Federal rules restrict any use of the information to criminally investigate or prosecute any alcohol or drug abuse patient.[facility] Reason for Visit (unrecogniz ed section and content) Reason Comments Shortness of Breath Specialty Diagnoses / Procedures Referred By Contac t Referred To Contact Diagnoses Pneumothorax on left Acute respiratory failure with hypoxia (HCC) Procedures . Joseph Trejo MD [address] [place] [address] [facility] [address] [place] [address] Referral ID Status Reason Start Date Expiration Date Visits Re quested Visits Authorized [id number] Specialty Diagnoses / Procedures Referred By Contac t Referred To Contact CT IMAGING Diagnoses COPD, severe (HCC) Centrilobular emphysema (HCC) Tobacco use disorder Shortness of breath Procedures CT CHEST WO IVCON DIAGNOSTIC COMPUTED TOMOGRAPHY THORAX W/O CNTRST Antwan Buchanan, [address] [place] [address] Ct Imaging Referral ID Status Reason Start Date Expiration Date V isits Requested Visits Authorized [id number] Closed Auto-Generat ed Referral Patient Cleared - Admin/Chairm an/Director advise to proceed 05/29/2021 07/31/2021 1 1 Reason Comments Results Reason Comments Spirometry Specialty Diagnoses / Procedures Referred By Contac t Referred To Contact [facility] Diagnoses COPD, severe (HCC) Procedures SPIROMETRY WITH DILATOR IF OBSTRUCTED SPIROMETRY BEFORE/AFTER BRONCHODILATORS Jeison Franks MD [address] [place] [address] Respiratory [address] [place] [address] Referral ID Status Reason Start Date Expiration Date V isits Requested Visits Authorized [id number] Closed Auto-Generate d Referral 12/23/2020 01/22/2022 1 1 Specialty Diagnoses / Procedures Referred By Contac t Referred To Contact [facility] Diagnoses Stage 4 very severe COPD by GOLD classification (HCC) Procedures LUNG VOLUMES Manuel Block MD [address] [place] [address] [facility] [address] [place] [address] Referral ID Status Reason Start Date Expiration Date V isits Requested Visits Authorized [id number] Closed Auto-Generate d Referral 07/16/2021 03/13/2022 1 1 Reason Comments Consult COPD Specialty Diagnoses / Procedures Referred By Contac t Referred To Contact Pulmonary and Critical Care Medicine Diagnoses Centrilobular emphysema (HCC) COPD, severe (HCC) Abnormal CT scan, lung Procedures CONSULT TO PULM/CRITICAL CARE OFFICE/OUTPATIENT [facility] 60-74 MINUTES Shelia Mahmood APRN.PARTS CLASSIFIER [address] [place] [address] Referral ID Status Reason Start Date Expiration Date V isits Requested Visits Authorized [id number] Closed PCP Requested Referral 06/11/2021 06/11/2022 1 [...] (HCC) Procedures CONSULT TO [facility] OFFICE/OUTPATIENT [facility] MDM 60 MINUTES DXA BONE DENSITY STUDY [...] Manuel Block MD [address] [place] [address] [facility] [address] [id number] Referral ID Status Reason Start Date Expiration Date Visits Requested Visits Authorized [id number] Authorized Financial Clearance Required - OON Payor Patient Cleared INN/SMCP Payor Auth Obtained 04/18/2023 04/17/2024 99 99 Reason Comments Refill Request Specialty Diagnoses / Procedures Referred By Kat t Referred To Contact [facility] Diagnoses Chronic obstructive pulmonary disease, unspecified COPD type (HCC) Procedures OXIMETRY WITH AMBULATION NONINVASIVE EAR/PULSE OXIMETRY MULTIPLE DETER Manuel Block MD [address] [place] [address] [facility] [address] [place] [address] Referral ID Status Reason Start Date Expiration Date V isits Requested Visits Authorized [id number] Closed Auto-Generate d Referral 12/09/2023 01/07/2025 1 1 Reason Onset Date Comments Refill Request 04/09/2024 Reason Comments Denial for Lung Transplant Reason Comments Yearly Exam Reason Onset Date Comments Refill Request 10/22/2024 Care Teams (unrecognized sec tion and content) Broadband Engineer Relationship Specialty Start Date End Date Antwan Buchanan, [address] [place], [place] [address] PCP - General Family Practice 08/10/13 Broadband Engineer Relationship Specialty Start Date End Date Antwan Buchanan, DO [address] [place] [address] PCP - General Family Practice 08/10/13 Broadband Engineer Relationship Specialty Start Date End Date Antwan Buchanan, DO [address] [place] [address] PCP - General Family Practice 08/10/13 Broadband Engineer Relationship Specialty Start Date End Date Antwan Buchanan [address] [place] [address] PCP - General Family Medicine 07/10/21 Broadband Engineer Relationship Specialty Start Date End Date Antwan Buchanan, DO [address] [place] [address] PCP - General Family Practice 08/10/13 Broadband Engineer Relationship Specialty Start Date End Date Antwan Buchanan, DO [address] [place] [address] PCP - General Family Practice 08/10/13 Broadband Engineer Relationship Specialty Start Date End Date Antwan Buchanan, DO [address] [place] [address] PCP - General Family Practice 08/10/13 Broadband Engineer Relationship Specialty Start Date End Date Antwan Buchanan, DO [address] [place] [address] PCP - General Family Practice 08/10/13 Broadband Engineer Relationship Specialty Start Date End Date Antwan Buchanan, DO [address] [place] [address] PCP - General Family Practice 08/10/13 Broadband Engineer Relationship Specialty Start Date End Date Antwan Buchanan, DO [address] [place] [address] PCP - General Family Practice 08/10/13 Broadband Engineer Relationship Specialty Start Date End Date Antwan Buchanan, DO [address] [place] [address] PCP - General Family Medicine 08/10/13 Broadband Engineer Relationship Specialty Start Date End Date Antwan Buchanan, DO [address] [place] [address] PCP - General Family Medicine 08/10/13 Broadband Engineer Relationship Specialty Start Date End Date Antwan Buchanan, DO [address] [place] [address] PCP - General Family Medicine 08/10/13 Broadband Engineer Relationship Specialty Start Date End Date Antwan Buchanan DO [address] [place] [address] PCP - General Family Medicine 08/10/13 Team [...] Dr. Cuca Flood MD Attending Provider Active Broadband Engineer Relationship Specialty Start Date End Date Antwan Buchanan [address] [place] [address] PCP - General 07/10/21 Broadband Engineer Relationship Specialty Start Date End Date Antwan Buchanan [address] [place] [address] PCP - General 07/10/21 Broadband Engineer Relationship Specialty Start Date End Date Antwan Buchanan [address] [place] [address] PCP - General 07/10/21 Broadband Engineer Relationship Specialty Start Date End Date Antwan Buchanan [address] [place] [address] PCP - General 07/10/21 Broadband Engineer Relationship Specialty Start Date End Date Antwan Buchanan DO [address] [place] [address] PCP - General Family Medicine 08/10/13 Broadband Engineer Relationship Specialty Start Date End Date Antwan Buchanan [address] [place] [address] PCP - General 07/10/21 Ienz Alonzo PA-C [address] [place] [address] [phone] Physician Hog Operator Physician Hog Operator 02/06/23 Broadband Engineer Relationship Specialty Start Date End Date Antwan Buchanan DO [address] [place] [address] PCP - General Family Medicine 08/10/13 Broadband Engineer Relationship Specialty Start Date End Date Antwan Buchanan DO [address] [place] [address] PCP - General Family Medicine 08/10/13 Broadband Engineer Relationship Specialty Start Date End Date Antwan Buchanan DO [address] [place] [address] PCP - General Family Medicine 08/10/13 Broadband Engineer Relationship Specialty Start Date End Date Antwan Buchanan DO [address] [place] [address] PCP - General Family Medicine 08/10/13 Broadband Engineer Relationship Specialty Start Date End Date Antwan Buchanan DO [address] [place] [address] PCP - General Family Medicine 08/10/13 Broadband Engineer Relationship Specialty Start Date End Date Antwan Buchanan DO [address] [place] [address] PCP - General Family Medicine 08/10/13 Team Status: Inactive Member Role Status Dates Dr. Antwan Buchanan DO Primary Care Provider Active Dr. Manuel Block MD Attending Provider, Referring Provider Active Broadband Engineer Relationship Specialty Start Date End Date Antwan Buchanan DO [address] [place] [address] PCP - General Family Medicine 08/10/13 Broadband Engineer Relationship Specialty Start Date End Date Antwan Buchanan DO [address] [place] [address] PCP - General Family Medicine 08/10/13 Broadband Engineer Relationship Specialty Start Date End Date Antwan Buchanan, [address] [place] [address] PCP - General Family Medicine 08/10/13 Broadband Engineer Relationship Specialty Start Date End Date Antwan Buchanan DO [address] [place] [address] PCP - General Family Medicine 08/10/13 Broadband Engineer Relationship Specialty Start Date End Date Antwan Buchanan DO [address] [place] [address] PCP - General Family Medicine 08/10/13 Broadband Engineer Relationship Specialty Start Date End Date Antwan Buchanan DO [address] [place] [address] PCP - General Family Medicine 08/10/13 Broadband Engineer Relationship Specialty Start Date End Date Antwan Buchanan DO [address] [place] [address] PCP - General Family Medicine 08/10/13 Broadband Engineer Relationship Specialty Start Date End Date Antwan Buchanan DO [address] [place] [address] PCP - General Family Medicine 08/10/13 Broadband Engineer Relationship Specialty Start Date End Date Antwan Buchanan DO [address] [place] [address] PCP - General Family Medicine 08/10/13 Broadband Engineer Relationship Specialty Start Date End Date Antwan Buchanan DO [address] [facility] [place] [address] PCP - General Family Medicine 08/10/13 Broadband Engineer Relationship Specialty Start Date End Date Antwan Buchanan DO [address] [facility] [place] [address] PCP - General Family Medicine 08/10/13 Broadband Engineer Relationship Specialty Start Date End Date Antwan Buchanan DO [address] [facility] [place] [address] PCP - General Family Medicine 08/10/13 Broadband Engineer Relationship Specialty Start Date End Date Antwan Buchanan DO [address] [facility] [place] [address] PCP - General Family Medicine 08/10/13 Broadband Engineer Relationship Specialty Start Date End Date Antwan Buchanan DO [address] [facility] [place] [address] PCP - General Family Medicine 08/10/13 Broadband Engineer Relationship Specialty Start Date End Date Antwan Buchanan DO [address] [facility] [place] [address] PCP - General Family Medicine 08/10/13 Shelia Garvey, TRAFFIC INCIDENT MANAGEMENT MANAGER.PARTS CLASSIFIER [address] [facility] [place] [address] Emergency Care Attendant Family Medicine 02/19/24 Steff Gruber APRN.PARTS CLASSIFIER [address] [facility] [place] [address] Emergency Care Attendant [facility] 02/19/24 Broadband Engineer Relationship Specialty Start Date End Date Antwan Buchanan DO [address] [place] [address] PCP - General Family Medicine 08/10/13 Shelia Garvey, TRAFFIC INCIDENT MANAGEMENT MANAGER.PARTS CLASSIFIER [address] [place] [address] Emergency Care Attendant Family [facility] 02/19/24 AllynSteff, TRAFFIC INCIDENT MANAGEMENT MANAGER.PARTS CLASSIFIER [address] [place] [address] [facility] 02/19/24 Broadband Engineer Relationship Specialty Start Date End Date Antwan Buchanan DO [address] [place] [address] PCP - General Family Medicine 08/10/13 Shelia Garvey, TRAFFIC INCIDENT MANAGEMENT MANAGER.PARTS CLASSIFIER [address] [place] [address] [facility] [place] [place] 02/19/24 AllynSteff, TRAFFIC INCIDENT MANAGEMENT MANAGER.PARTS CLASSIFIER [address] [place] [address] [facility] 02/19/24 Broadband Engineer Relationship Specialty Start Date End Date Antwan Buchanan DO [address] [place] [address] PCP - General Family Medicine 08/10/13 Shelia Garvey, TRAFFIC INCIDENT MANAGEMENT MANAGER.PARTS CLASSIFIER [address] [place] [address] [facility] [place] [place] 02/19/24 [facility], TRAFFIC INCIDENT MANAGEMENT MANAGER.PARTS CLASSIFIER [address] [place] [address] [facility] [place] [place] 02/19/24 Broadband Engineer Relationship Specialty Start Date End Date Antwan Buchanan, [address] [place] [address] PCP - General Family Medicine 08/10/13 [facility], TRAFFIC INCIDENT MANAGEMENT MANAGER.PARTS CLASSIFIER [address] [place] [address] [facility] 02/19/24 Broadband Engineer Relationship Specialty Start Date End Date Antwan Buchanan DO [address] [place] [address] PCP - General Family Medicine 08/10/13 [facility], TRAFFIC INCIDENT MANAGEMENT MANAGER.PARTS CLASSIFIER [address] [place] [address] [facility] 02/19/24 Broadband Engineer Relationship Specialty Start Date End Date Antwan Buchanan DO [address] [place] [address] PCP - General Family Medicine 08/10/13 [facility], TRAFFIC INCIDENT MANAGEMENT MANAGER.PARTS CLASSIFIER [address] [place] [address] [facility] 02/19/24 Broadband Engineer Relationship Specialty Start Date End Date Antwan Buchanan DO [address] [place] [address] PCP - General Family Medicine 08/10/13 Steff Gruber APRN.PARTS CLASSIFIER [address] [place], [place] [address] [facility] 02/19/24 Tanisha Scherer APRN.PARTS CLASSIFIER [address] [place] [address] [facility] 08/27/24 Ordered Prescriptions (unrec ognized section [...] by J tube. 1232 (Given - Provider: Jsesica Del Castillo, RN)2100 (Due) enoxaparin (LOVENOX) injection [...] Tiffanie 07/02/21 at 0003, Until Discontinued, Indigestion nzbvfuwnrf-ogvsankiwodts-en ffeine (FIORICET, ESGIC) per tablet 1 tablet [...] RCP) 0811 (Given - Provider: Sj Rowley, WINE MERCHANT) 0929 (Given - Provider: Anthony Ward, SERGE) buPROPion XL (Wellbutrin XL) 24 hr tablet 300 mg 300 mg, Oral, Daily, First dose on Tiffanie 01/27/23 at 0900, Do not crush, chew, or split. 0900 (Dose Auto Held) 0839 (Unheld by provider - Provider: Jordin Larsen, TRAFFIC INCIDENT MANAGEMENT MANAGER - PARTS CLASSIFIER)0900 (Not Given - Provider: Anselmo Coello RN [...] blood sugar check.)1700 (Not Given - Provider: Anslemo Coello RN - Reason: Patient/family refused - [...] (1-3), Starting on Tue01/28/23 at 1540, Give GA if unable to administer by mouth or [...] Protocol: 2343 (Given - Provider: Ron Hickey, WINE MERCHANT) bisacodyl (Dulcolax) suppository 10 mg 10 mg, [...] Carline Roche, RN) 0442 (Given - Provider: Craline Roche, RN)0955 (See Alternative - Provider: Diallo [...] Inez Alonzo PA-C)1549 (Given - Provider: Simon Chaudhari RN) magnesium sulfate IVPB 4,000 mg(Linked Group [...] (1-3), Starting on Tue01/28/23 at 1540, Give GA if unable to administer by mouth or [...] section and content) DATE CREATED AUTHOR 07/24/2021 [employer] DATE CREATED AUTHOR AUTHOR'S ORGANIZ ATION 08/06/2021 [facility] ([place]) DATE CREATED AUTHOR AUTHOR'S ORGANIZ ATION 02/17/2023 [facility] [employer] [facility] DATE CREATED AUTHOR AUTHOR'S ORGANIZ ATION 04/29/2024 [facility] DATE CREATED AUTHOR AUTHOR'S ORGANIZ ATION 08/17/2024 [facility] Goals (unrecognized section and content) Goals [...] BE BASED ON THE PRIMARY CLINICAL RECORDS. Consulted [facility]. provides no warranty or guarantee of the accuracy or completeness of information in this document.
[2024-10-22 22:21] LABS: Magnesium 1.6 mg/dL (1.5-2.2)
--- NOTE | 2024-10-22 22:26 | CT_ITS ---
PROCEDURE: CHEST WITH CONTRAST 10/22/2024 REASON FOR EXAM: AE COPD WITH ? PNA ON CXR. TECHNIQUE: CHEST WITH CONTRAST Coronal and Sagittal reconstruction series were provided. CONTRAST: Isovue 370 VOLUME: 99 mL One or more dose reduction techniques were used (e.g., Automated exposure control, adjustment of the mA and/or kV according to patient size, use of iterative reconstruction technique). RADIATION DOSE SUMMARY: CTDlvol: 18 mGy DLP: 330 mGycm COMPARISON: 03/22/2024 FINDINGS: There is bronchial wall thickening. There is bronchiectasis most pronounced in the lower lobes, yming-ixnwfqf-cbko-left. There is extensive bronchial debris. There is severe emphysema. Smoking-related interstitial lung disease. Bilateral areas of linear scarring. No consolidation, effusion, or pneumothorax. Unremarkable base of neck and axilla. Normal esophagus. Mediastinal and bilateral hilar adenopathy, likely reactive. Normal heart size. No acute vascular pathology. No acute chest wall findings. Hepatic steatosis. CT/Chest WITH Contrast IMPRESSION: COPD. Bronchiectasis and extensive bronchial debris. No consolidation or other definite acute chest findings. Reading Location: [place] [address]
[2024-10-22] MEDS: 0.9% Normal Saline (1000mL) 1,000 ML 70 ML IV (22:56)
[2024-10-22] MEDS: 0.9% Saline Lock 10 ML Syringe IV (22:57)
--- NOTE | 2024-10-22 23:26 | NURSING ---
Patient states he isn't going to wear the bipap until he has to. Resp therapy is going to go give him a breathing treatment.
[2024-10-22] MEDS: Budesonide Respules 0.5 MG/2 ML AMPUL.NEB. INHALATION (23:35)
[2024-10-23] VITALS (32 sets, daily range): BP systolic 105–136; BP diastolic 56–86; PULSE 69–101; RESP 8–28; TEMP 36.2–36.8; O2SAT 4–97; BMI 23.7
[2024-10-23 00:27] LABS: Ferritin 91 ng/mL (37-417); Iron Binding Capacity,Total 331 ug/dL (250-450)
[2024-10-23 00:29] LABS: Iron 11 ug/dL (65-175); Iron Binding Capacity,Unsat 320 ug/dL (228-428)
[2024-10-23 01:00] LABS: Troponin T High Sens 4 HR < 6 ng/L (<=22)
[2024-10-23] MEDS: 0.9% Saline Lock 10 ML Syringe IV ×4 (03:05→21:10)
[2024-10-23 05:39] LABS: Hematocrit 35.0 % (40-54); Hemoglobin 10.8 g/dL (13.0-16.5); Immature Granulocytes Count 0.020 X10^3/uL (0.0-0.0); Mean Corp Hgb Conc 30.9 g/dL (32-36); Mean Corpuscular Volume 82.7 fL (80-94); Mean Platelet Vol. 9.5 fl (6.2-12.0); NRBC Flagged by Analyzer 0 % (0-5); POSITIVE DIFFERENTIAL YES; Platelet Count 285 K/mm3 (150-450); RBC Distribution Width CV 14.5 % (11.6-14.6); RBC Distribution Width SD 43.9 fl (35.1-43.9); Red Blood Count 4.23 M/mm3 (4.6-6.2); White Blood Count 8.1 K/mm3 (4.4-11.0)
[2024-10-23 05:56] LABS: Allen Test Positive; Base Excess 3 mmol/L (-2 to +2); PO2 59 mmHG (75-100); SITE L Radial; SO2 91 % (95-99)
[2024-10-23 06:30] LABS: AST(SGOT) 13 U/L (<=37); Alanine Aminotransfer ALT/SGPT 11 U/L (<=46); Albumin, Serum 3.8 g/dL (3.5-5.0); Alkaline Phosphatase 76 U/L (40-129); Anion Gap 12 (5-15); BUN 12 mg/dL (4-19); BUN/Creat Ratio 14.6 RATIO (10-20); Calcium,Total 9.4 mg/dL (7.6-11.0); Carbon Dioxide 23.3 mmol/L (21.0-32.0); Chloride 102 mmol/L (98-108); Estimated Creatinine Clearance 103.23 ml/min (50-250); Globulin 3.5 g/dL (2.2-4.2); Glucose 145 mg/dL (70-99); Potassium 4.1 mmol/L (3.3-5.1)
[2024-10-23] MEDS: Budesonide Respules 0.5 MG/2 ML AMPUL.NEB. INHALATION (06:55)
[2024-10-23] MEDS: Potassium Phosphate 45 MM in 0.9% Normal Saline (500mL Bag) 500 ML 85 MM IV (07:48)
--- NOTE | 2024-10-23 10:13 | PN.HOSP_ITS ---
Reason for Visit Chief Complaint: SOB. Objective Data Objective Data Vital Signs: Vital Signs Temp Pulse Resp BP Pulse Ox O2 Del Method O2 Flow Rate 97.8 F 96 20 H 125/77 H 93 Nasal Cannula 5 10/23/24 07:40 10/23/24 07:40 10/23/24 07:40 10/23/24 07:40 10/23/24 07:40 10/23/24 07:45 10/23/24 07:45 FiO2 30 10/23/24 03:10 Oxygen Flow Rate (L/min) 5 Oxygen Delivery Method Nasal Cannula Weight: 165 lb 9.074 oz Body Mass Index (BMI) 23.7 Intake & Output: Intake and Output for Last 24 Hours 10/21/24 10/22/24 10/23/24 23:59 23:59 23:59 Intake Total 3059.25 / 3059.25 150 / 150 Output Total 900 / 900 Balance 3059.25 / 3059.25 -750 / -750 Lab / Micro Data 10/23/24 05:30 10/23/24 05:30 Labs: Laboratory Results - last 24 hr 10/22/24 00:05: Troponin T Hi Sens 4Hr < 6 10/22/24 18:22: WBC 17.8 H, RBC 4.95, Hgb 12.7 L, Hct 40.6, MCV 82.0, MCH 25.7 L , MCHC 31.3 L, RDW Std Deviation 43.3, RDW Coeff of Maya 14.6, Plt Count 362, MPV 9.9, Immature Gran % (Auto) 0.500, Neut % (Auto) 76.8 H, Lymph % (Auto) 10.4 L, Piatt % (Auto) 11.7 H, Eos % (Auto) 0.2, Baso % (Auto) 0.4, Absolute Neuts (auto) 13.6 H, Absolute Lymphs (auto) 1.84, Nucleated RBC % 0, Differential Comment SCANNED, Platelet Estimate ADEQUATE, PT 13.9, INR 1.1, APTT 35.4, Sodium 135, Potassium 3.7, Chloride 96 L, Carbon Dioxide 23.0, Anion Gap 16 H, BUN 13, Creatinine 0.84, Estim Creat Clear Calc 103.20, Est GFR (MDRD) Non-Af 104, BUN/Creatinine Ratio 15.1, Glucose 141 H, Lactic Acid 1.2, Calcium 9.8, Total Bilirubin 0.78, AST 11, ALT 13, Alkaline Phosphatase 92, Troponin T High Sens < 6, NT pro BNP II < 36, Total Protein 8.2, Albumin 4.2, Globulin 3.9, Albumin/Globulin Ratio 1.1 10/22/24 19:15: Urine Color Yellow, Urine Clarity Clear, Urine pH 6.5, Ur Specific Blum 1.015, Urine Protein 30 H, Urine Glucose (UA) Normal, Urine Ketones 5 H, Urine Occult Blood Negative, Urine Nitrite Negative, Urine Bilirubin Negative, Urine Urobilinogen Normal, Ur Leukocyte Esterase Negative, Urine RBC 0-5 SEEN, Urine WBC 0-5 SEEN, Ur Squamous Epith Cells 0-5 SEEN, Urine Bacteria 0 SEEN, Hyaline Casts 0-5 SEEN, Urine Mucus 0 SEEN 10/22/24 20:11: Magnesium 1.6, Iron 11 L, TIBC 331, Iron Saturation 3.3 L, Unsaturated IBC 320, Ferritin 91, Troponin T Hi Sens 2 Hr < 6, TSH 0.413 10/23/24 05:30: WBC 8.1, RBC 4.23 L, Hgb 10.8 L, Hct 35.0 L, MCV 82.7, MCH 25.5 L, MCHC 30.9 L, RDW Std Deviation 43.9, RDW Coeff of Maya 14.5, Plt Count 285, MPV 9.5, Immature Gran % (Auto) 0.200, Neut % (Auto) 90.4 H, Lymph % (Auto) 7.2 L, Piatt % (Auto) 2.1, Eos % (Auto) 0.0, Baso % (Auto) 0.1, Absolute Neuts (auto) 7.3, Absolute Lymphs (auto) 0.58 L, Nucleated RBC % 0, Sodium 137, Potassium 4.1, Chloride 102, Carbon Dioxide 23.3, Anion Gap 12, BUN 12, Creatinine 0.84, Estim Creat Clear Calc 103.23, Est GFR (MDRD) Non-Af 104, BUN/Creatinine Ratio 14.6, Glucose 145 H, Calcium 9.4, Phosphorus 1.1 L*, Total Bilirubin 0.37, AST 13, ALT 11, Alkaline Phosphatase 76, Total Protein 7.3, Albumin 3.8, Globulin 3.5, Albumin/Globulin Ratio 1.1 Micro: Microbiology 10/22/24 22:10 Mucosa - Nasopharyngeal Respiratory Panel (PCR) - Final 10/22/24 19:15 Urine, Clean Catch Legionella Antigen - Final 10/22/24 19:15 Urine, Clean Catch Streptococcus pneumoniae Antigen (M - Final ABG Data ABG results: ABG 10/22/24 10/23/24 18:17 05:52 Specimen Type AG ART Sample Site Not entered L Radial pH 7.43 Bicarbonate Actual 27.1 H Total CO2 28 Base Excess 3 H O2 Saturation 91 L ABG pCO2 40.8 ABG pO2 59 L Nikunj Test Positive VBG pH 7.44 H VBG pO2 76 H VBG HCO3 29 H VBG Total CO2 31 VBG O2 Sat (Calc) 96 H VBG Base Excess 5 H POC Mix VBG pCO2 Pt Tmp 42.8 O2 Delivery Device Not entered Cannula Vent Mode Not entered Radiography Diagnostic Testing: Radiology Impression Chest X-Ray 10/22/24 18:40 IMPRESSION: Persistent bibasilar airspace opacities and atelectasis. Trace bibasilar pleural effusions. Reading Location: [facility] Chest CT 10/22/24 22:26 IMPRESSION: COPD. Bronchiectasis and extensive bronchial debris. No consolidation or other definite acute chest findings. Reading Location: [place] [address] Assessment & Plan Assessment/Plan (1) COPD exacerbation: (2) Bronchiectasis: QUALIFIERS: Bronchiectasis type: with acute exacerbation Q ualified Code(s): J47.1 - Bronchiectasis with (acute) exacerbation (3) Mucus plugging of bronchi: (4) Acute on chronic respiratory failure with hypoxemia: (5) Hypophosphatasia: PLAN: Plan 54-year-old gentleman with history of chronic hypoxic respiratory failure on 4 L of O2 Treated with shortness of breath and not feeling well. Pulse ox was 88% objective evidence of dyspnea. Patient also was 86% on 4 L of O2. Creatinine 1. CXR that revealed persistent bibasilar airspace opacities and atelectasis with trace bilateral pleural effusions and he was then diagnosed with AE COPD with suspected Pneumonia with Leukocytosis of 17.8K present on admission and CT of the chest that revealed Bronchiectasis with extensive bronchial debris - Admit to general medical floor. Continue empiric IV ceftriaxone and IV azithromycin begun in ER and await culture and sensitivity data. Check urinary antigens to Streptococcus pneumonia and Legionella. Keep NPO except medications, ice chips and sips until patient weaned off BiPAP. Give prochlorperazine IV prn for nausea and vomiting. Give acetaminophen prn for wtsg-pc-uaasrgwj (level 1-5/10) pain or fever. Give morphine IV prn for severe (level 6-10/10) pain. 2. AE COPD with Aeccn-mu-Kjncclr Hypoxic Respiratory Failure requiring BiPAP due to #1 - Maintain IV methylprednisolone with scheduled and prn nebulizers/inhalers. Wean BiPAP as tolerated. 3. Hypophosphatemia of 1.1 mg/dL present on admission complicating #1 & #2 - Give supplemental K-Phos 40 mmol IV once and then recheck level in AM to confirm repletion. 4. History of TIA (2020) - Noted. 5. History of ZAK; not on oral iron supplementation - Stable with hemoglobin of 12.7 g/dL and MCV of 82 fL. Check iron studies. 6. Depression with anxiety; on sertraline and trazodone - Maintain home regimen as before. 7. History of COVID-19 - Noted with viral panel pending. 8. History of EtOH abuse - Patient denies current abuse and has no signs/symptoms of withdrawal as noted in HPI. 9. GERD with history of PUD; on pantoprazole BID - Resume PPI as previous. 10. DVT prophylaxis - Enoxaparin 40 mg sq daily plus SCD's. Clinical Impression(s) from Imaging Studies Chest X-Ray 10/22/24 18:40 IMPRESSION: Persistent bibasilar airspace opacities and atelectasis. Trace bibasilar pleural effusions. Reading [facility] Chest CT 10/22/24 22:26 IMPRESSION: COPD. Bronchiectasis and extensive bronchial debris. No consolidation or other definite acute chest findings. Reading [facility]
--- NOTE | 2024-10-23 10:13 | PCM.PN.HOSP ---
Reason for Visit Chief Complaint: SOB. Objective Data Objective Data Vital Signs: Vital Signs Temp Pulse Resp BP Pulse Ox O2 Del Method O2 Flow Rate 97.8 F 96 20 H 125/77 H 93 Nasal Cannula 5 10/23/24 07:40 10/23/24 07:40 10/23/24 07:40 10/23/24 07:40 10/23/24 07:40 10/23/24 07:45 10/23/24 07:45 FiO2 30 10/23/24 03:10 Oxygen Flow Rate (L/min) 5 Oxygen Delivery Method Nasal Cannula Weight: 165 lb 9.074 oz Body Mass Index (BMI) 23.7 Intake & Output: Intake and Output for Last 24 Hours 10/21/24 10/22/24 10/23/24 23:59 23:59 23:59 Intake Total 3059.25 / 3059.25 150 / 150 Output Total 900 / 900 Balance 3059.25 / 3059.25 -750 / -750 Lab / Micro Data 10/23/24 05:30 10/23/24 05:30 Labs: Laboratory Results - last 24 hr 10/22/24 00:05: Troponin T Hi Sens 4Hr < 6 10/22/24 18:22: WBC 17.8 H, RBC 4.95, Hgb 12.7 L, Hct 40.6, MCV 82.0, MCH 25.7 L, MCHC 31.3 L, RDW Std Deviation 43.3, RDW Coeff of Maya 14.6, Plt Count 362, MPV 9.9, Immature Gran % (Auto) 0.500, Neut % (Auto) 76.8 H, Lymph % (Auto) 10.4 L, [place] % (Auto) 11.7 H, Eos % (Auto) 0.2, Baso % (Auto) 0.4, Absolute Neuts (auto) 13.6 H, Absolute Lymphs (auto) 1.84, Nucleated RBC % 0, Differential Comment SCANNED, Platelet Estimate ADEQUATE, PT 13.9, INR 1.1, APTT 35.4, Sodium 135, Potassium 3.7, Chloride 96 L, Carbon Dioxide 23.0, Anion Gap 16 H, BUN 13, Creatinine 0.84, Estim Creat Clear Calc 103.20, Est GFR (MDRD) Non-Af 104, BUN/Creatinine Ratio 15.1, Glucose 141 H, Lactic Acid 1.2, Calcium 9.8, Total Bilirubin 0.78, AST 11, ALT 13, Alkaline Phosphatase 92, Troponin T High Sens < 6, NT pro BNP II < 36, Total Protein 8.2, Albumin 4.2, Globulin 3.9, Albumin/Globulin Ratio 1.1 10/22/24 19:15: Urine Color Yellow, Urine Clarity Clear, Urine pH 6.5, Ur Specific Hayes 1.015, Urine Protein 30 H, Urine Glucose (UA) Normal, Urine Ketones 5 H, Urine Occult Blood Negative, Urine Nitrite Negative, Urine Bilirubin Negative, Urine Urobilinogen Normal, Ur Leukocyte Esterase Negative, Urine RBC 0-5 SEEN, Urine WBC 0-5 SEEN, Ur Squamous Epith Cells 0-5 SEEN, Urine Bacteria 0 SEEN, Hyaline Casts 0-5 SEEN, Urine Mucus 0 SEEN 10/22/24 20:11: Magnesium 1.6, Iron 11 L, TIBC 331, Iron Saturation 3.3 L, Unsaturated IBC 320, Ferritin 91, Troponin T Hi Sens 2 Hr < 6, TSH 0.413 10/23/24 05:30: WBC 8.1, RBC 4.23 L, Hgb 10.8 L, Hct 35.0 L, MCV 82.7, MCH 25.5 L, MCHC 30.9 L, RDW Std Deviation 43.9, RDW Coeff of Maya 14.5, Plt Count 285, MPV 9.5, Immature Gran % (Auto) 0.200, Neut % (Auto) 90.4 H, Lymph % (Auto) 7.2 L, [place] % (Auto) 2.1, Eos % (Auto) 0.0, Baso % (Auto) 0.1, Absolute Neuts (auto) 7.3, Absolute Lymphs (auto) 0.58 L, Nucleated RBC % 0, Sodium 137, Potassium 4.1, Chloride 102, Carbon Dioxide 23.3, Anion Gap 12, BUN 12, Creatinine 0.84, Estim Creat Clear Calc 103.23, Est GFR (MDRD) Non-Af 104, BUN/Creatinine Ratio 14.6, Glucose 145 H, Calcium 9.4, Phosphorus 1.1 L*, Total Bilirubin 0.37, AST 13, ALT 11, Alkaline Phosphatase 76, Total Protein 7.3, Albumin 3.8, Globulin 3.5, Albumin/Globulin Ratio 1.1 Micro: Microbiology 10/22/24 22:10 Mucosa - Nasopharyngeal Respiratory Panel (PCR) - Final 10/22/24 19:15 Urine, Clean Catch Legionella Antigen - Final 10/22/24 19:15 Urine, Clean Catch Streptococcus pneumoniae Antigen (M - Final ABG Data ABG results: ABG 10/22/24 10/23/24 18:17 05:52 Specimen Type AG ART Sample Site Not entered L Radial pH 7.43 Bicarbonate Actual 27.1 H Total CO2 28 Base Excess 3 H O2 Saturation 91 L ABG pCO2 40.8 ABG pO2 59 L Nikunj Test Positive VBG pH 7.44 H VBG pO2 76 H VBG HCO3 29 H VBG Total CO2 31 VBG O2 Sat (Calc) 96 H VBG Base Excess 5 H POC Mix VBG pCO2 Pt Tmp 42.8 O2 Delivery Device Not entered Cannula Vent Mode Not entered Radiography Diagnostic Testing: Radiology Impression Chest X-Ray 10/22/24 18:40 IMPRESSION: Persistent bibasilar airspace opacities and atelectasis. Trace bibasilar pleural effusions. Reading Location: [facility] Chest CT 10/22/24 22:26 IMPRESSION: COPD. Bronchiectasis and extensive bronchial debris. No consolidation or other definite acute chest findings. Reading Location: [place] [address] Physical Exam Narrative Seen and examined. Patient is stated that he has history of smoking started at the age of 12. He started with 3 to 4 cigarettes but went up to 1.5 to 2 pack and then quit. He quit 2 years ago in 2022 history of double pneumonia, emphysema. He has chronic cough but his cough got worse with shortness of breath therefore COPD exacerbation Physical exam General: Alert, Oriented x3, Cooperative HEENT: Atraumatic, PERRLA, EOMI, Normocephalic. Oral: No Gingival or Mucosal Lesions/ Ulcerations Neck: Supple, No JVD, Negative Carotid Bruits Chest wall/Lungs: Air entry diminished in all lung hernandez. Bilateral rhonchi and wheezing. Cardiovascular: Regular rate and rhythm, Normal S1,S2, No M/G/R Abdomen: Bowel Sounds Present, Soft, Non Tender, Non-Distended : No dysuria. No renal angle tenderness. No suprapubic tenderness. Extremities: No edema, Capillary Refill Less than 3 Seconds Skin: No rashes, No breakdown Musculoskeletal: No Tenderness to Palpation of Joints or Extremities Neurological: Cranial nerves II-XII grossly intact, DTR 2+/4. No acute focal neurological deficit. Psych/Mental Status: Normal Affect, Appropriate. Assessment & Plan Assessment/Plan (1) COPD exacerbation: (2) Bronchiectasis: QUALIFIERS: Bronchiectasis type: with acute exacerbation Qualified Code(s): J47.1 - Bronchiectasis with (acute) exacerbation (3) Mucus plugging of bronchi: (4) Acute on chronic respiratory failure with hypoxemia: (5) Hypophosphatasia: PLAN: Plan 54-year-old gentleman with history of chronic hypoxic respiratory failure on 4 L of O2 Treated with shortness of breath and not feeling well. Pulse ox was 88% objective evidence of dyspnea. Patient also was 86% on 4 L of O2. 1. COPD/emphysema and bronchiectasis exacerbation with suspicion of smoking-related ILD: Patient had chest x-ray and CT which shows bronchial wall thickening. Also reported bronchiectasis most pronounced in lower lobes right more than left with extensive bronchial debris. No consolidation or effusion or pneumothorax. 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 No definite consolidation Prelim blood culture shows Staph aureus but it PCR came coagulase-negative staph. Empirically started IV vancomycin but is discontinued. On IV ceftriaxone. Doxycycline added. Urinary antigens and respiratory panel negative. Will need to follow-up with the road design engineer as an outpatient 2. AE COPD with Olwsy-yc-Jvlwlnz Hypoxic Respiratory Failure requiring BiPAP Maintain IV methylprednisolone with scheduled and prn nebulizers/inhalers. Wean BiPAP as tolerated. 3. Hypophosphatemia of 1.1 mg/dL present on admission - Give supplemental K-Phos 40 mmol IV once and then recheck level in AM to confirm repletion. 4. Chronic iron-deficiency anemia: H&H 12.7, MCV 82. You dropped to 10.8/35%. Iron studies shows serum iron 11, TIBC 331 and iron saturation 3.3%. Ferritin 91. Ferrous sulfate ordered 5. Depression with anxiety; on sertraline and trazodone - Maintain home regimen as before. GERD with history of PUD; on pantoprazole BID - Resume PPI as previous. DVT prophylaxis - Enoxaparin 40 mg sq daily plus SCD's. Microbiology Past 72 Hours 10/22/24 18:22 Blood Culture (Wb) - Anticubital Right Bacteria Detection (PCR) - Final Coag Negative Staph 10/22/24 18:22 Blood Culture (Wb) - Anticubital Right Blood Culture - Preliminary 10/22/24 22:10 Mucosa - Nasopharyngeal Respiratory Panel (PCR) - Final 10/22/24 19:15 Urine, Clean Catch Legionella Antigen - Final 10/22/24 19:15 Urine, Clean Catch Streptococcus pneumoniae Antigen (M - Final Laboratory Results 10/22/24 00:05: Troponin T Hi Sens 4Hr < 6 10/22/24 18:17: Specimen Type AG, Sample Site Not entered, VBG pH 7.44 H, VBG pO2 76 H, VBG HCO3 29 H, VBG Total CO2 31, VBG O2 Sat (Calc) 96 H, VBG Base Excess 5 H, POC Mix VBG pCO2 Pt Tmp 42.8, O2 Delivery Device Not entered 10/22/24 18:22: WBC 17.8 H, RBC 4.95, Hgb 12.7 L, Hct 40.6, MCV 82.0, MCH 25.7 L, MCHC 31.3 L, RDW Std Deviation 43.3, RDW Coeff of Maya 14.6, Plt Count 362, MPV 9.9, Immature Gran % (Auto) 0.500, Neut % (Auto) 76.8 H, Lymph % (Auto) 10.4 L, [place] % (Auto) 11.7 H, Eos % (Auto) 0.2, Baso % (Auto) 0.4, Absolute Neuts (auto) 13.6 H, Absolute Lymphs (auto) 1.84, Nucleated RBC % 0, Differential Comment SCANNED, Platelet Estimate ADEQUATE, PT 13.9, INR 1.1, APTT 35.4, Sodium 135, Potassium 3.7, Chloride 96 L, Carbon Dioxide 23.0, Anion Gap 16 H, BUN 13, Creatinine 0.84, Estim Creat Clear Calc 103.20, Est GFR (MDRD) Non-Af 104, BUN/Creatinine Ratio 15.1, Glucose 141 H, Lactic Acid 1.2, Calcium 9.8, Total Bilirubin 0.78, AST 11, ALT 13, Alkaline Phosphatase 92, Troponin T High Sens < 6, NT pro BNP II < 36, Total Protein 8.2, Albumin 4.2, Globulin 3.9, Albumin/Globulin Ratio 1.1 10/22/24 19:15: Urine Color Yellow, Urine Clarity Clear, Urine pH 6.5, Ur Specific Hayes 1.015, Urine Protein 30 H, Urine Glucose (UA) Normal, Urine Ketones 5 H, Urine Occult Blood Negative, Urine Nitrite Negative, Urine Bilirubin Negative, Urine Urobilinogen Normal, Ur Leukocyte Esterase Negative, Urine RBC 0-5 SEEN, Urine WBC 0-5 SEEN, Ur Squamous Epith Cells 0-5 SEEN, Urine Bacteria 0 SEEN, Hyaline Casts 0-5 SEEN, Urine Mucus 0 SEEN 10/22/24 20:11: Magnesium 1.6, Iron 11 L, TIBC 331, Iron Saturation 3.3 L, Unsaturated IBC 320, Ferritin 91, Troponin T Hi Sens 2 Hr < 6, TSH 0.413 10/23/24 05:30: WBC 8.1, RBC 4.23 L, Hgb 10.8 L, Hct 35.0 L, MCV 82.7, MCH 25.5 L, MCHC 30.9 L, RDW Std Deviation 43.9, RDW Coeff of Maya 14.5, Plt Count 285, MPV 9.5, Immature Gran % (Auto) 0.200, Neut % (Auto) 90.4 H, Lymph % (Auto) 7.2 L, [place] % (Auto) 2.1, Eos % (Auto) 0.0, Baso % (Auto) 0.1, Absolute Neuts (auto) 7.3, Absolute Lymphs (auto) 0.58 L, Nucleated RBC % 0, Sodium 137, Potassium 4.1, Chloride 102, Carbon Dioxide 23.3, Anion Gap 12, BUN 12, Creatinine 0.84, Estim Creat Clear Calc 103.23, Est GFR (MDRD) Non-Af 104, BUN/Creatinine Ratio 14.6, Glucose 145 H, Calcium 9.4, Phosphorus 1.1 L*, Total Bilirubin 0.37, AST 13, ALT 11, Alkaline Phosphatase 76, Total Protein 7.3, Albumin 3.8, Globulin 3.5, Albumin/Globulin Ratio 1.1 10/23/24 05:52: Specimen Type ART, Sample Site L Radial, pH 7.43, Bicarbonate Actual 27.1 H, Total CO2 28, Base Excess 3 H, O2 Saturation 91 L, ABG pCO2 40.8, ABG pO2 59 L, Nikunj Test Positive, O2 Delivery Device Cannula, Vent Mode Not entered Clinical Impression(s) from Imaging Studies Chest X-Ray 10/22/24 18:40 IMPRESSION: Persistent bibasilar airspace opacities and atelectasis. Trace bibasilar pleural effusions. Reading Location: [facility] Chest CT 10/22/24 22:26 IMPRESSION: COPD. Bronchiectasis and extensive bronchial debris. No consolidation or other definite acute chest findings. Reading Location: [place] [address] Charges/Coding Visit Charges Inpatient E&M: 46346 Subs Hosp L2
[2024-10-23] MEDS: Vancomycin HCl 1,250 MG in 0.9% Normal Saline (250mL Bag) 250 ML 167 MG IV (14:11)
--- NOTE | 2024-10-23 15:13 | PCM.RX.CS ---
Consult Antibiotic Management Pharmacy has been consulted to manage selected antibiotic: Vancomycin Type of Intervention Type of Consult: New start Suspected Infection Suspected Infection: Other (EMPIRIC) Prior Doses of Antibiotics Prior Doses of Antibiotics Received/Current Regimen: Vancomycin 1250 mg IV x 1 given 10/23/24 @ 2200 Labs Labs: Sodium 137 mmol/L (133-145) 10/23/24 05:30 Potassium 4.1 mmol/L (3.3-5.1) 10/23/24 05:30 Chloride 102 mmol/L (98-108) 10/23/24 05:30 Carbon Dioxide 23.3 mmol/L (21.0-32.0) 10/23/24 05:30 Anion Gap 12 (5-15) 10/23/24 05:30 BUN 12 mg/dL (4-19) 10/23/24 05:30 Creatinine 0.84 mg/dL (0.70-1.20) 10/23/24 05:30 Est GFR (MDRD) Non-Af 104 (>60) 10/23/24 05:30 BUN/Creatinine Ratio 14.6 RATIO (10-20) 10/23/24 05:30 Glucose 145 mg/dL (70-99) H 10/23/24 05:30 Microbiology Microbiology: Microbiology 10/22/24 18:22 Blood Culture (Wb) - Anticubital Right Blood Culture - Preliminary 10/22/24 22:10 Mucosa - Nasopharyngeal Respiratory Panel (PCR) - Final 10/22/24 19:15 Urine, Clean Catch Legionella Antigen - Final 10/22/24 19:15 Urine, Clean Catch Streptococcus pneumoniae Antigen (M - Final Dosing Weight Weight used for dosin lb 9.074 oz Estimated Creatinine Clearance Estimated Creatinine Clearance: ~ 103 Goal Trough Goal Trough: 15-20 mcg/mL Pharmacy Plan for Drug Dosing Pharmacy Plan for Drug Dosing: Vancomycin 1250 mg IV x 1 followed by 1000 mg IV Q8H Pharmacy Service will continue to monitor and adjust dosing as required. Follow-Up Labs Follow-Up Labs: Trough: Vancomycin Date/Time Labs Ordered Labs to be done on [date and time ordered]: 10/24/24 @ 1330
[2024-10-23] MEDS: Sodium Ferric Gluconat/Sucrose 250 MG in 0.9% Normal Saline (250mL Bag) 250 ML 135 MG IV (16:55)
[2024-10-23] MEDS: guaiFENesin/D-Methorphan TAB.SR.12H 2 TABLET PO (21:16)
[2024-10-24] VITALS (27 sets, daily range): BP systolic 118–145; BP diastolic 79–96; PULSE 65–101; RESP 8–26; TEMP 36.3–36.8; O2SAT 89–100; BMI 23.2
[2024-10-24] MEDS: 0.9% Saline Lock 10 ML Syringe IV ×4 (05:42→23:18)
[2024-10-24 06:46] LABS: Hematocrit 37.1 % (40-54); Hemoglobin 11.3 g/dL (13.0-16.5); Immature Granulocytes Count 0.220 X10^3/uL (0.0-0.0); Mean Corp Hgb Conc 30.5 g/dL (32-36); Mean Corpuscular Volume 84.1 fL (80-94); Mean Platelet Vol. 9.9 fl (6.2-12.0); NRBC Flagged by Analyzer 0 % (0-5); Platelet Count 375 K/mm3 (150-450); RBC Distribution Width CV 14.9 % (11.6-14.6); RBC Distribution Width SD 45.3 fl (35.1-43.9); Red Blood Count 4.41 M/mm3 (4.6-6.2); White Blood Count 17.1 K/mm3 (4.4-11.0)
[2024-10-24 07:04] LABS: Anion Gap 12 (5-15); BUN 20 mg/dL (4-19); BUN/Creat Ratio 20.3 RATIO (10-20); Calcium,Total 9.7 mg/dL (7.6-11.0); Carbon Dioxide 24.4 mmol/L (21.0-32.0); Chloride 104 mmol/L (98-108); Estimated Creatinine Clearance 87.19 ml/min (50-250); Glucose 129 mg/dL (70-99); Magnesium 2.0 mg/dL (1.5-2.2); Potassium 4.6 mmol/L (3.3-5.1)
[2024-10-24] MEDS: guaiFENesin/D-Methorphan TAB.SR.12H 2 TABLET PO ×2 (08:54→23:18)
--- NOTE | 2024-10-24 08:57 | NURSING ---
on step down monitor pending SPO2 goal/resp rate goal clarification by Md.
--- NOTE | 2024-10-24 13:32 | PN.HOSP_ITS ---
Reason for Visit Chief Complaint: SOB. Objective Data Objective Data Vital Signs: Vital Signs Temp Pulse Resp BP Pulse Ox O2 Del Method O2 Flow Rate 97.8 F 90 22 H 128/81 H 92 High Flow 8 10/24/24 11:59 10/24/24 11:59 10/24/24 11:59 10/24/24 11:59 10/24/24 11:59 10/24/24 11:59 10/24/24 11:59 FiO2 45 10/24/24 02:33 Oxygen Flow Rate (L/min) 8 Oxygen Delivery Method High Flow Weight: 162 lb 7.691 oz Body Mass Index (BMI) 23.2 Intake & Output: Intake and Output for Last 24 Hours 10/22/24 10/23/24 10/24/24 23:59 23:59 23:59 Intake Total 3059.25 / 3059.25 2260 / 2260 Output Total 1100 / 1100 Balance 3059.25 / 3059.25 1160 / 1160 Lab / Micro Data 10/24/24 06:32 10/24/24 06:32 Labs: Laboratory Results - last 24 hr 10/24/24 06:32: WBC 17.1 H, RBC 4.41 L, Hgb 11.3 L, Hct 37.1 L, MCV 84.1, MCH 25.6 L, MCHC 30.5 L, RDW Std Deviation 45.3 H, RDW Coeff of Maya 14.9 H, Plt Count 375, MPV 9.9, Immature Gran % (Auto) 1.300 H, Neut % (Auto) 84.5 H, Lymph % (Auto) 5.8 L, [place] % (Auto) 8.3, Eos % (Auto) 0.0, Baso % (Auto) 0.1, Absolute Neuts (auto) 14.5 H, Absolute Lymphs (auto) 1.00, Nucleated RBC % 0, Sodium 140, Potassium 4.6, Chloride 104, Carbon Dioxide 24.4, Anion Gap 12, BUN 20 H, Creatinine 1.00, Estim Creat Clear Calc 87.19, Est GFR (MDRD) Non-Af 90, B UN/Creatinine Ratio 20.3 H, Glucose 129 H, Calcium 9.7, Phosphorus 2.1 L, Magnesium 2.0 10/24/24 11:50: POC Glucose 169 H Micro: Microbiology 10/22/24 19:15 Urine, Clean Catch Urine Culture - Preliminary Mixed Gram Positive Organisms 10/22/24 18:22 Blood Culture (Wb) - Anticubital Right Bacteria Detection (PCR) - Final Coag Negative Staph 10/22/24 18:22 Blood Culture (Wb) - Anticubital Right Blood Culture - Preliminary Coag Negative Staph 10/22/24 22:10 Mucosa - Nasopharyngeal Respiratory Panel (PCR) - Final 10/22/24 19:15 Urine, Clean Catch Legionella Antigen - Final 10/22/24 19:15 Urine, Clean Catch Streptococcus pneumoniae Antigen (M - Final Physical Exam Narrative Seen and examined. Patient still short of breath, tachypneic on a liter of oxygen. RR goes high 24 to 26/min. No fever. [employer] Aide Teacher consulted. Patient has history of smoking started at the age of 12. He started with 3 to 4 cigarettes but went up to 1.5 to 2 pack and then quit. He quit 2 years ago in 2022 history of double pneumonia, emphysema. He has chronic cough but his cough got worse with shortness of breath therefore COPD exacerbation Physical exam General: Alert, Oriented x3, Cooperative HEENT: Atraumatic, PERRLA, EOMI, Normocephalic. Oral: No Gingival or Mucosal Lesions/ Ulcerations Neck: Supple, No JVD, Negative Carotid Bruits Chest wall/Lungs: Air entry diminished in all lung hernandez. Bilateral rhonchi and wheezing. Cardiovascular: Regular rate and rhythm, Normal S1,S2, No M/G/R Abdomen: Bowel Sounds Present, Soft, Non Tender, Non-Distended : No dysuria. No renal angle tenderness. No suprapubic tenderness. Extremities: No edema, Capillary Refill Less than 3 Seconds Skin: No rashes, No breakdown Musculoskeletal: No Tenderness to Palpation of Joints or Extremities Neurological: Cranial nerves II-XII grossly intact, DTR 2+/4. No acute focal neurological deficit. Psych/Mental Status: Normal Affect, Appropriate. Assessment & Plan Assessment/Plan (1) COPD exacerbation: (2) Bronchiectasis: QUALIFIERS: Bronchiectasis type: with acute exacerbation Q ualified Code(s): J47.1 - Bronchiectasis with (acute) exacerbation (3) Mucus plugging of bronchi: (4) Acute on chronic respiratory failure with hypoxemia: (5) Hypophosphatasia: PLAN: Plan 54-year-old gentleman with history of chronic hypoxic respiratory failure on 4 L of O2 Treated with shortness of breath and not feeling well. Pulse ox was 88% objective evidence of dyspnea. Patient also was 86% on 4 L of O2. 1. COPD/emphysema and bronchiectasis exacerbation with suspicion of smoking- related ILD: Patient had chest x-ray and CT which shows bronchial wall thickening. Also reported bronchiectasis most pronounced in lower lobes right more than left with extensive bronchial debris. No consolidation or effusion or pneumothorax. 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 No definite consolidation Prelim blood culture shows Staph aureus but it PCR came coagulase-negative staph. Empirically started IV vancomycin but is discontinued. On IV ceftriaxone. Doxycycline added. Urinary antigens and respiratory panel negative. Will need to follow-up with the parts counter specialist as an outpatient 10/24: With suspicion of bronchiectasis, patient is on IV antibiotics as mentioned above. On acetylcysteine inhalation. Incentive spirometry. [employer] Aide Teacher consulted for further opinion. Vest therapy. 2. AE COPD with Snulq-rn-Pgejhci Hypoxic Respiratory Failure requiring BiPAP Maintain IV methylprednisolone with scheduled and prn nebulizers/inhalers. Wean BiPAP as tolerated. 11/11 patient used BiPAP yesterday. 3. Hypophosphatemia of 1.1 mg/dL present on admission - Give supplemental K- Phos 40 mmol IV once and then recheck level in AM to confirm repletion. 10/24: Repeat phosphorus 2.1, serum magnesium 2.0. Potassium 4.6. 4. Chronic iron-deficiency anemia: H&H 12.7, MCV 82. H&H dropped to 10.8/35%. Iron studies shows serum iron 11, TIBC 331 and iron saturation 3.3%. Ferritin 91. Ferrous sulfate ordered 10/24: H&H 9.3/37.1%. 5. Depression with anxiety; on sertraline and trazodone - Maintain home regimen as before. GERD with history of PUD; on pantoprazole BID - Resume PPI as previous. DVT prophylaxis - Enoxaparin 40 mg sq daily plus SCD's. Microbiology Past 72 Hours 10/22/24 19:15 Urine, Clean Catch Urine Culture - Preliminary Mixed Gram Positive Organisms 10/22/24 18:22 Blood Culture (Wb) - Anticubital Right Bacteria Detection (PCR) - Final Coag Negative Staph 10/22/24 18:22 Blood Culture (Wb) - Anticubital Right Blood Culture - Preliminary Coag Negative Staph 10/22/24 22:10 Mucosa - Nasopharyngeal Respiratory Panel (PCR) - Final 10/22/24 19:15 Urine, Clean Catch Legionella Antigen - Final 10/22/24 19:15 Urine, Clean Catch Streptococcus pneumoniae Antigen (M - Final Laboratory Results 10/24/24 06:32: WBC 17.1 H, RBC 4.41 L, Hgb 11.3 L, Hct 37.1 L, MCV 84.1, MCH 25.6 L, MCHC 30.5 L, RDW Std Deviation 45.3 H, RDW Coeff of Maya 14.9 H, Plt Count 375, MPV 9.9, Immature Gran % (Auto) 1.300 H, Neut % (Auto) 84.5 H, Lymph % (Auto) 5.8 L, [place] % (Auto) 8.3, Eos % (Auto) 0.0, Baso % (Auto) 0.1, Absolute Neuts (auto) 14.5 H, Absolute Lymphs (auto) 1.00, Nucleated RBC % 0, Sodium 140, Potassium 4.6, Chloride 104, Carbon Dioxide 24.4, Anion Gap 12, BUN 20 H, Creatinine 1.00, Estim Creat Clear Calc 87.19, Est GFR (MDRD) Non-Af 90, B UN/Creatinine Ratio 20.3 H, Glucose 129 H, Calcium 9.7, Phosphorus 2.1 L, Magnesium 2.0 10/24/24 11:50: POC Glucose 169 H Clinical Impression(s) from Imaging Studies Chest X-Ray 10/22/24 18:40 IMPRESSION: Persistent bibasilar airspace opacities and atelectasis. Trace bibasilar pleural effusions. [facility] 10/22/24 22:26 IMPRESSION: COPD. Bronchiectasis and extensive bronchial debris. No consolidation or other definite acute chest findings. Reading Location: [place] [address] Charges/Coding Addendum Addendum: Total time of the visit including total time spent in counseling or coordination of care, (more than 50% of the total time, spent in obtaining medical information from nurses and other ancillary care providers ,explaining to the patient about labs, imaging, diagnosis and management of active complex medical conditions), discussion with the parts counter specialist, severity of illness, review of labs and imaging is 35 minutes. Visit Charges Inpatient E&M: 41487 Subs Hosp L3
[2024-10-24] MEDS: Na Biphos/Potassium Phosphate PACKET 1 PACKET PO ×2 (14:47→23:18)
[2024-10-24] MEDS: Acetylcysteine 800 MG/4 ML VIAL.NEB. INHALATION ×2 (15:17→19:42)
--- NOTE | 2024-10-24 17:56 | CON.PCM.CC_ITS ---
HPI Consult Data Date of Consult: 10/24/24 HPI Narrative HPI Narrative: LUIS AVILA, is a 54yo M w/ COPD/bronchiectasis on home 4L NC, h/o severe MRSA pneumonia, h/o TIA, PUD, anemia, depression/anxiety, h/o tobacco use who presented with dyspnea. He reports 3 day history of progressive dyspnea, wheezing, productive cough, chest tightness similar to his prior COPD exacerbations.? CXR here was concerning for PNA along with sx suggestive of COPD exacerbation, and so pt was started on empiric abx, steroids, nebs. He has been on 8L NC but then required NIV this afternoon after getting dyspneic walking to bathroom. He does not feel much improvement compared to admit. Reported recent sick contact being around someone with bronchitis. No fevers/chills, abd pain, vomiting, diarrhea. Reports he has was referred for lung transplant evaluation at [facility] but has been frustrated due to delays with scheduling/late appointments. Follows with tax compliance officer locally, and uses Advair and Spiriva daily. He quit smoking, but may have some second hand smoke exposure. ROS: 12-point ROS negative except as per HPI above PFSH Medical History Mucus plugging of bronchi Iron deficiency anemia Acute on chronic hypoxic respiratory failure Chronic hypoxic respiratory failure History and physical examination, immigration Exposure to COVID-19 virus Alcohol abuse Ulcer Smoker TIA (transient ischemic attack) History of bacterial pneumonia Depression Anxiety COPD (chronic obstructive pulmonary disease) History of tobacco use Home Medications ?Medication ?Instructions ?Recorded ?Last Taken ?Type sertraline 100 mg tablet 100 mg PO DAILY mood 5 10/19/22 10:00 History pantoprazole 40 mg tablet,delayed 40 mg PO BID stomach e 03/20/21 10/19/22 10:00 History release trazodone 50 mg tablet 100 - 150 mg PO .prn hs slee p 03/20/21 03/18/21 History albuterol sulfate 90 mcg/actuation 2 puff inhalation Q 4H PRN PRN 02/10/22 10/19/22 10:00 Rx aerosol inhaler (Ventolin HFA) Wheezing ##1 fluticasone propionate 230 2 puff inhalation BID breat nasir 03/13/24 Unknown History mcg-salmeterol 21 mcg/actuation HFA inhaler (Advair HFA) tiotropium bromide 2.5 2 puff inhalation DAILY kiara thing 03/13/24 Unknown History mcg/actuation mist for inhalation (Spiriva Respimat) ipratropium 0.5 mg-albuterol 3 mg 3 ml inhalation Q4H PRN shortness 03/22/24 Unknown Rx (2.5 mg base)/3 mL nebulization of breath/wheezing #18 0 mL soln nebulizer and compressor #1 ea 03/22/24 Unknown Rx Allergy/AdvReac Type Severity Reaction Status Date / Time tramadol HCl (From [facility]) Allergy Swelling Verified 10/22/24 18:16 codeine AdvReac PT UNSURE Verified 10/22/24 18:16 OF REACTION Family History Other Cancer Diabetes Heart disease Hypertension Surgical History History of herniorrhaphy History of tonsillectomy History of chest tube placement History of tracheostomy Social History household members: none Smoking Status: Former smoker how long ago did patient quit smoking: Patient quit smoking 2 years ago alcohol intake: current alcohol intake frequency: holidays/special occasions only substance use type: does not use Objective Data Objective Data Vital Signs: Vital Signs Last response 3 Temperature 36.6 C 10/24/24 16:07 Temperature Source Oral 10/24/24 16:07 Pulse Rate 89 10/24/24 16:07 Pulse Strength Normal (2+) 10/23/24 20:45 Respiratory Rate 20 H 10/24/24 16:07 Respiratory Effort Pursed Lip 10/24/24 14:50 Respiratory Depth Normal 10/24/24 02:37 Respiratory Pattern Normal 10/24/24 15:41 Blood Pressure 118/96 H 10/24/24 16:07 Blood Pressure Mean 103 10/24/24 16:07 Blood Pressure Source Monitor 10/24/24 16:07 Blood Pressure Position Semi-Fowlers 10/24/24 16:07 Blood Pressure Location Right Arm 10/24/24 16:07 Pulse Ox 94 10/24/24 16:07 Oxygen Delivery Method Nasal Cannula 10/24/24 16:07 Oxygen Flow Rate (L/min) 8 10/24/24 16:07 Fraction of Inspired Oxygen (FIO2) 45 10/24/24 02:33 I&O: I&O Last 24 Hours 3 10/23/24 10/24/24 10/24/24 23:59 11:59 23:59 Intake Total 2110 / 2260 Output Total 200 / 1100 400 / 400 Balance 1910 / 1160 -400 / -400 I&O: Total Stay 3 10/22/24 18:05 thru 10/24/24 14:00 Intake Total 5319.25 Output Total 1500 Balance 3819.25 Current Meds Ordered / Administered: Current meds ordered / Administered 3 Generic Name Dose Route Start Last Admin Trade Name Freq PRN Reason Stop Dose Admin Acetaminophen 650 mg 10/22/24 21:49 10/24/24 14:47 Acetaminophen 325 Mg Tablet PO 650 mg Q6H PRN PRN Administration Pain 1-5/10 or Fever Acetylcysteine 800 mg 10/24/24 13:15 10/24/24 15:17 Acetylcysteine 800 Mg/4 Ml Vial.Neb. INHALATION 800 mg Q6H.RT CHIDI Administration Albuterol Sulfate 2.5 mg 10/22/24 22:18 Albuterol 2.5 Mg/3 Ml Vial.Neb. INHALATION Q4H PRN PRN Wheezing Albuterol/Ipratropium 3 ml 10/24/24 13:15 10/24/24 15:17 Ipratropium/Albuterol Sulfate 3 Ml Ampul.Neb INHALATION 3 ml Q6HWA.RT CHIDI Administration Doxycycline Monohydrate 100 mg 10/23/24 22:00 10/24/24 08:54 Doxycycline 100 Mg Capsule PO 100 mg BID CHIDI Administration Enoxaparin Sodium 40 mg 10/24/24 10:00 10/24/24 08:56 Enoxaparin 40 Mg/0.4 Ml Syringe SC Not Given DAILY CHIDI Guaifenesin 2 tablet 10/23/24 22:00 10/24/24 08:54 Guaifenesin/D-Methorphan Tab.Sr.12h PO 2 tablet BID CHIDI Administration Ceftriaxone Sodium 1 gm in 50 mls @ 100 mls/hr 10/23/24 22:00 10/23/24 21:59 Rocephin IV Infused Q24H CHIDI Infusion Sodium Chloride 250 mls @ 15 mls/hr 10/22/24 21:50 IV .[id number] PRN Saline Flush Sodium Chloride 250 mls @ 15 mls/hr 10/22/24 21:50 IV .[id number] PRN Additional IVPB Infusion Ketorolac Tromethamine 15 mg 10/23/24 12:33 10/24/24 14:47 Ketorolac 15 Mg/Ml Vial IV 10/28/24 12:33 15 mg Q6H PRN PRN Administration Headache/musculoskeletal pain Melatonin 3 mg 10/22/24 21:49 Melatonin 3 Mg Tablet PO QHS PRN PRN INSOMNIA Methylprednisolone Sodium Succinate 40 mg 10/23/24 22:00 10/24/24 14:41 Methylprednisolone Sod Succ 40 Mg/Ml Vial IV 40 mg Q8 CHIDI Administration Morphine Sulfate 2 mg 10/22/24 21:49 10/23/24 02:59 Morphine 2 Mg/Ml Syringe IV 2 mg Q4H PRN PRN Administration Pain Score 6-10 Pantoprazole Sodium 40 mg 10/22/24 22:00 10/24/24 08:54 Pantoprazole Sodium 40 Mg Tablet PO 40 mg BID CHIDI Administration Potassium Phos/Sodium Phos 1 packet 10/24/24 14:00 10/24/24 14:47 Na Biphos/Potassium Phosphate Packet PO 10/26/24 14:01 1 packet TID CHIDI Administration Sertraline HCl 100 mg 10/23/24 10:00 10/24/24 08:54 Sertraline 100 Mg Tablet PO 100 mg DAILY CHIDI Administration Sodium Chloride 10 - 40 ml 10/22/24 21:50 10/24/24 14:41 0.9% Saline Lock 10 Ml Syringe IV 10 ml UD PRN Administration SALINE FLUSH Trazodone HCl 100 mg 10/22/24 21:49 Trazodone 100 Mg Tablet PO QHS PRN PRN SLEEP Lab / Micro Data 10/24/24 06:32 10/24/24 06:32 Labs: Laboratory Results - last 24 hr 10/24/24 06:32: WBC 17.1 H, RBC 4.41 L, Hgb 11.3 L, Hct 37.1 L, MCV 84.1, MCH 25.6 L, MCHC 30.5 L, RDW Std Deviation 45.3 H, RDW Coeff of Maya 14.9 H, Plt Count 375, MPV 9.9, Immature Gran % (Auto) 1.300 H, Neut % (Auto) 84.5 H, Lymph % (Auto) 5.8 L, [place] % (Auto) 8.3, Eos % (Auto) 0.0, Baso % (Auto) 0.1, Absolute Neuts (auto) 14.5 H, Absolute Lymphs (auto) 1.00, Nucleated RBC % 0, Sodium 140, Potassium 4.6, Chloride 104, Carbon Dioxide 24.4, Anion Gap 12, BUN 20 H, Creatinine 1.00, Estim Creat Clear Calc 87.19, Est GFR (MDRD) Non-Af 90, B UN/Creatinine Ratio 20.3 H, Glucose 129 H, Calcium 9.7, Phosphorus 2.1 L, Magnesium 2.0 10/24/24 11:50: POC Glucose 169 H Micro: Microbiology 10/22/24 19:15 Urine, Clean Catch Urine Culture - Preliminary Mixed Gram Positive Organisms 10/22/24 18:22 Blood Culture (Wb) - Anticubital Right Bacteria Detection (PCR) - Final Coag Negative Staph 10/22/24 18:22 Blood Culture (Wb) - Anticubital Right Blood Culture - Preliminary Coag Negative Staph Assessment and Plan . Assessment and plan: Physical Exam: Gen - NAD, well-developed, fatigued HEENT - MMM. Sclera anicteric Resp - Diminished BS. Tachypnea CV - RRR. No m/g/r Abd - Soft, NT, ND Ext - No c/c/e. Skin - No rashes? Neuro - Grossly nonfocal. Alert and oriented I have reviewed the pertinent vital sign, laboratory, and imaging data. ASSESSMENT: # Acute on chronic hypoxic respiratory failure - on home 4L NC # COPD/broncheictasis exacerbation # h/o severe MRSA pneumonia # CoNS bacteremia - 1/2 sets, ?contaminant # h/o TIA # PUD # Anemia # Depression/anxiety # h/o tobacco use PLAN: -On 8L NC at rest, requiring intermittent NIV after exertion. Wean to keep sats > 90%. Low threshold to transfer to ICU if worsening or requiring longer duration of NIV -IV solumedrol, duonebs -Change rocephin to cefepime for pseudomonal coverage, cont doxy. Add vanc given CoNS bacteremia. Check sputum Cx, MRSA nares. Repeat BCx. Viral panel, urine strep/legionella negative -Agree with adding mucomyst with flutter valve/vest therapy. Cont guafenesin -Consider VTE rule out if not improving -Cont OP pulmonary clinic f/u FEN/GI: PO diet Proph DVT/GI: Lovenox, protonix Critical Care Time: 60 mins The entirety of this encounter was done via telemedicine using both audio and video. Consent was obtained.
--- NOTE | 2024-10-24 20:15 | PCM.RX.CS ---
Consult Antibiotic Management Pharmacy has been consulted to manage selected antibiotic: Vancomycin Type of Intervention Type of Consult: New start Suspected Infection Suspected Infection: Bacteremia Labs Labs: Sodium 140 mmol/L (133-145) 10/24/24 06:32 Potassium 4.6 mmol/L (3.3-5.1) 10/24/24 06:32 Chloride 104 mmol/L (98-108) 10/24/24 06:32 Carbon Dioxide 24.4 mmol/L (21.0-32.0) 10/24/24 06:32 Anion Gap 12 (5-15) 10/24/24 06:32 BUN 20 mg/dL (4-19) H 10/24/24 06:32 Creatinine 1.00 mg/dL (0.70-1.20) 10/24/24 06:32 Est GFR (MDRD) Non-Af 90 (>60) 10/24/24 06:32 BUN/Creatinine Ratio 20.3 RATIO (10-20) H 10/24/24 06:32 Glucose 129 mg/dL (70-99) H 10/24/24 06:32 Microbiology Microbiology: Microbiology 10/22/24 19:15 Urine, Clean Catch Urine Culture - Preliminary Mixed Gram Positive Organisms 10/22/24 18:22 Blood Culture (Wb) - Anticubital Right Bacteria Detection (PCR) - Final Coag Negative Staph 10/22/24 18:22 Blood Culture (Wb) - Anticubital Right Blood Culture - Preliminary Coag Negative Staph 10/22/24 22:10 Mucosa - Nasopharyngeal Respiratory Panel (PCR) - Final 10/22/24 19:15 Urine, Clean Catch Legionella Antigen - Final 10/22/24 19:15 Urine, Clean Catch Streptococcus pneumoniae Antigen (M - Final Goal Trough Goal Trough: 15-20 mcg/mL Pharmacy Plan for Drug Dosing Pharmacy Plan for Drug Dosing: NEW START IV VANCOMYCIN - RESUMING PREVIOUSLY DISCONTINUED VANCOMYCIN Consulting Physician: Dr. Herring Indication: Bacteremia Goal Trough: 15-20 SrCr: 1.0 CrCl: 87 mL/min Comments: Patient was previously on vancomycin which was discontinued on 10/23. at that time, the patient had only received an initial dose of 1250mg x1 given 10/23 @1411 Vancomycin Dose: The patient qualifies for vancomycin 1250mg IV Q12hr to start 10/24/20 @2100. Will get trough prior to 4th dose of restarted regimen since it has been >24hrs since last dose. Pending Level: 10/26/24 @0830, prior to 4th dose of resumed regimen. Pharmacy Service will continue to monitor and adjust dosing as required.
[2024-10-24 20:56] LABS: D-Dimer Quantitative (DVT/PE) 0.82 FEU/ug/m (0.27-0.49)
--- NOTE | 2024-10-24 22:01 | CT_ITS ---
PROCEDURE: CTA CHEST W/WO CONTRAST 10/24/2024 REASON FOR EXAM: EVALUATE FOR PE WITH ELEVATED D-DIMER TECHNIQUE: CTA CHEST W/WO CONTRAST Multiplanar Sagittal and Coronal images were obtained. CONTRAST: Isovue 370 VOLUME: 100 mL One or more dose reduction techniques were used (e.g., Automated exposure control, adjustment of the mA and/or kV according to patient size, use of iterative reconstruction technique). RADIATION DOSE SUMMARY: CTDlvol: 23 mGy DLP: 315 mGycm COMPARISON: 10/22/2024 FINDINGS: Unremarkable base of neck and axilla. Mediastinal and hilar adenopathy likely reactive. Normal esophagus. Normal heart size. No aortic dissection. No pulmonary embolism. No acute upper abdominal findings. Thoracic spine scoliosis and degeneration. No acute chest wall findings. There is bronchiectasis and extensive bronchial debris as noted previously, centered in the lower lobes. Severe emphysema. Bilateral areas of lung scarring. Dependent atelectasis. No consolidation, effusion, or pneumothorax. CT/CTA Chest W/WO Contrast IMPRESSION: Redemonstration of COPD, including bronchiectasis and extensive bronchial debri s. No embolism, dissection, or pneumonia. Reading Location: [place] [address]
[2024-10-24] MEDS: Cefepime HCl 2 GM in 0.9% Normal Saline (100mL MB+) 100 ML IV (22:22)
[2024-10-24] MEDS: Vancomycin HCl 1,250 MG in 0.9% Normal Saline (250mL Bag) 250 ML 167 MG IV (23:14)
[2024-10-25] VITALS (18 sets, daily range): BP systolic 116–135; BP diastolic 87–94; PULSE 64–92; RESP 6–22; TEMP 36.4–36.6; O2SAT 92–99; BMI 25.0
[2024-10-25] MEDS: Cefepime HCl 2 GM in 0.9% Normal Saline (100mL MB+) 100 ML IV ×3 (06:38→23:12)
[2024-10-25] MEDS: Na Biphos/Potassium Phosphate PACKET 1 PACKET PO ×3 (06:38→20:47)
[2024-10-25] MEDS: Acetylcysteine 800 MG/4 ML VIAL.NEB. INHALATION ×2 (07:27→20:11)
--- NOTE | 2024-10-25 08:11 | CPS ---
patient took breathing treatment and began to cough so bad he requested to put on bipap, stopped treatment about half way and put on bipap
--- NOTE | 2024-10-25 08:16 | CPS ---
patient refused vest this am
[2024-10-25] MEDS: 0.9% Normal Saline (250mL Bag) 250 ML IV (08:30)
[2024-10-25] MEDS: guaiFENesin/D-Methorphan TAB.SR.12H 2 TABLET PO ×2 (08:31→20:46)
[2024-10-25] MEDS: Vancomycin HCl 1,250 MG in 0.9% Normal Saline (250mL Bag) 250 ML 167 MG IV ×2 (08:31→20:43)
[2024-10-25] MEDS: 0.9% Saline Lock 10 ML Syringe IV (08:31)
[2024-10-25 08:35] LABS: Anion Gap 9 (5-15); BUN 19 mg/dL (4-19); BUN/Creat Ratio 24.7 RATIO (10-20); Calcium,Total 9.0 mg/dL (7.6-11.0); Carbon Dioxide 27.4 mmol/L (21.0-32.0); Chloride 104 mmol/L (98-108); Estimated Creatinine Clearance 111.79 ml/min (50-250); Glucose 135 mg/dL (70-99); Potassium 4.6 mmol/L (3.3-5.1)
[2024-10-25 08:43] LABS: Hematocrit 33.7 % (40-54); Hemoglobin 10.2 g/dL (13.0-16.5); Immature Granulocytes Count 0.420 X10^3/uL (0.0-0.0); Mean Corp Hgb Conc 30.3 g/dL (32-36); Mean Corpuscular Volume 84.3 fL (80-94); Mean Platelet Vol. 10.2 fl (6.2-12.0); NRBC Flagged by Analyzer 0 % (0-5); Platelet Count 310 K/mm3 (150-450); RBC Distribution Width CV 15.0 % (11.6-14.6); RBC Distribution Width SD 46.3 fl (35.1-43.9); Red Blood Count 4.00 M/mm3 (4.6-6.2); White Blood Count 13.6 K/mm3 (4.4-11.0)
--- NOTE | 2024-10-25 16:15 | PCM.PN.HOSP ---
Reason for Visit Chief Complaint: SOB. Objective Data Objective Data Vital Signs: Vital Signs Temp Pulse Resp BP Pulse Ox O2 Del Method O2 Flow Rate 97.5 F L 89 21 H 116/92 H 93 High Flow 6 10/25/24 11:50 10/25/24 14:44 10/25/24 14:44 10/25/24 08:20 10/25/24 14:44 10/25/24 14:44 10/25/24 14:44 FiO2 8 10/25/24 10:01 Oxygen Flow Rate (L/min) 6 Oxygen Delivery Method High Flow Weight: 175 lb 4.28 oz Body Mass Index (BMI) 25.0 Intake & Output: Intake and Output for Last 24 Hours 10/23/24 10/24/24 10/25/24 23:59 23:59 23:59 Intake Total 2260 / 2260 100 / 100 817.87 / 817.87 Output Total 1100 / 1100 700 / 700 1700 / 1700 Balance 1160 / 1160 -600 / -600 -882.13 / -882.13 Lab / Micro Data 10/25/24 06:39 10/25/24 06:39 Labs: Laboratory Results - last 24 hr 10/24/24 20:08: D-Dimer Quant (PE/DVT) 0.82 H* 10/25/24 06:39: WBC 13.6 H, RBC 4.00 L, Hgb 10.2 L, Hct 33.7 L, MCV 84.3, MCH 25.5 L, MCHC 30.3 L, RDW Std Deviation 46.3 H, RDW Coeff of Maya 15.0 H, Plt Count 310, MPV 10.2, Immature Gran % (Auto) 3.100 H, Neut % (Auto) 80.8 H, Lymph % (Auto) 10.2 L, [place] % (Auto) 5.7, Eos % (Auto) 0.0, Baso % (Auto) 0.2, Absolute Neuts (auto) 11.0 H, Absolute Lymphs (auto) 1.39, Nucleated RBC % 0, Sodium 141, Potassium 4.6, Chloride 104, Carbon Dioxide 27.4, Anion Gap 9, BUN 19, Creatinine 0.78, Estim Creat Clear Calc 111.79, Est GFR (MDRD) Non-Af 106, BUN/Creatinine Ratio 24.7 H, Glucose 135 H, Calcium 9.0 Micro: Microbiology 10/25/24 08:22 Mucosa - Nasopharyngeal Coronavirus COVID-19 PCR - Final 10/24/24 22:00 Sputum, Expectorated/Coughed Gram Stain - Final 10/22/24 19:15 Urine, Clean Catch Urine Culture - Final Mixed Gram Positive Organisms 10/22/24 18:22 Blood Culture (Wb) - Left Hand Blood Culture - Preliminary No growth in 48 hours. 10/24/24 23:00 Nasal Secretion MRSA (PCR) - Final 10/22/24 18:22 Blood Culture (Wb) - Anticubital Right Bacteria Detection (PCR) - Final Coag Negative Staph 10/22/24 18:22 Blood Culture (Wb) - Anticubital Right Blood Culture - Preliminary Coag Negative Staph 10/22/24 22:10 Mucosa - Nasopharyngeal Respiratory Panel (PCR) - Final 10/22/24 19:15 Urine, Clean Catch Legionella Antigen - Final 10/22/24 19:15 Urine, Clean Catch Streptococcus pneumoniae Antigen (M - Final Radiography Diagnostic Testing: Radiology Impression Chest CTA 10/24/24 22:01 IMPRESSION: Redemonstration of COPD, including bronchiectasis and extensive bronchial debris. No embolism, dissection, or pneumonia. Reading Location: [place] [address] Physical Exam Narrative Seen and examined. Shortness of breath is better. Currently still on high flow 6 L of oxygen. Respiratory rate 20-21/min. Usually on 4 L of oxygen. Previous history of MRSA pneumonia. Patient has history of smoking started at the age of 12. He started with 3 to 4 cigarettes but went up to 1.5 to 2 pack and then quit. He quit 2 years ago in 2022 history of double pneumonia, emphysema. He has chronic cough but his cough got worse with shortness of breath therefore COPD exacerbation Physical exam General: Alert, Oriented x3, Cooperative HEENT: Atraumatic, PERRLA, EOMI, Normocephalic. Oral: No Gingival or Mucosal Lesions/ Ulcerations Neck: Supple, No JVD, Negative Carotid Bruits Chest wall/Lungs: Air entry diminished in all lung hernandez. Bilateral rhonchi and wheezing are better. Cardiovascular: Regular rate and rhythm, Normal S1,S2, No M/G/R Abdomen: Bowel Sounds Present, Soft, Non Tender, Non-Distended : No dysuria. No renal angle tenderness. No suprapubic tenderness. Extremities: No edema, Capillary Refill Less than 3 Seconds Skin: No rashes, No breakdown Musculoskeletal: No Tenderness to Palpation of Joints or Extremities Neurological: Cranial nerves II-XII grossly intact, DTR 2+/4. No acute focal neurological deficit. Psych/Mental Status: Normal Affect, Appropriate. Assessment & Plan Assessment/Plan (1) COPD exacerbation: (2) Bronchiectasis: QUALIFIERS: Bronchiectasis type: with acute exacerbation Qualified Code(s): J47.1 - Bronchiectasis with (acute) exacerbation (3) Mucus plugging of bronchi: (4) Acute on chronic respiratory failure with hypoxemia: (5) Hypophosphatasia: PLAN: Plan 54-year-old gentleman with history of chronic hypoxic respiratory failure on 4 L of O2 Treated with shortness of breath and not feeling well. Pulse ox was 88% objective evidence of dyspnea. Patient also was 86% on 4 L of O2. 1. COPD/emphysema and bronchiectasis exacerbation with suspicion of smoking-related ILD: Patient had chest x-ray and CT which shows bronchial wall thickening. Also reported bronchiectasis most pronounced in lower lobes right more than left with extensive bronchial debris. No consolidation or effusion or pneumothorax. 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 No definite consolidation Prelim blood culture shows Staph aureus but it PCR came coagulase-negative staph. Empirically started IV vancomycin but is discontinued. On IV ceftriaxone. Doxycycline added. Urinary antigens and respiratory panel negative. Will need to follow-up with the energy infrastructure engineer as an outpatient 10/24: With suspicion of bronchiectasis, patient is on IV antibiotics as mentioned above. On acetylcysteine inhalation. Incentive spirometry. Machine Maintenance Technician consulted for further opinion. Vest therapy. 10/25: Oxygen requirement better 6 L. Was evaluated by butcher's assistant and IV cefepime was added to cover Pseudomonas. Continue doxycycline vancomycin was added for CoNS bacteremia 2. AE COPD with [id number] Hypoxic Respiratory Failure requiring BiPAP Maintain IV methylprednisolone with scheduled and prn nebulizers/inhalers. Wean BiPAP as tolerated. 11/11 patient used BiPAP yesterday. 3. Hypophosphatemia of 1.1 mg/dL present on admission - Give supplemental K-Phos 40 mmol IV once and then recheck level in AM to confirm repletion. 10/24: Repeat phosphorus 2.1, serum magnesium 2.0. Potassium 4.6. 4. Chronic iron-deficiency anemia: H&H 12.7, MCV 82. H&H dropped to 10.8/35%. Iron studies shows serum iron 11, TIBC 331 and iron saturation 3.3%. Ferritin 91. Ferrous sulfate ordered 10/24: H&H 9.3/37.1%. 5. Depression with anxiety; on sertraline and trazodone - Maintain home regimen as before. GERD with history of PUD; on pantoprazole BID - Resume PPI as previous. DVT prophylaxis - Enoxaparin 40 mg sq daily plus SCD's. Microbiology Past 72 Hours 10/25/24 08:22 Mucosa - Nasopharyngeal Coronavirus COVID-19 PCR - Final 10/24/24 22:00 Sputum, Expectorated/Coughed Gram Stain - Final 10/22/24 19:15 Urine, Clean Catch Urine Culture - Final Mixed Gram Positive Organisms 10/22/24 18:22 Blood Culture (Wb) - Left Hand Blood Culture - Preliminary No growth in 48 hours. 10/24/24 23:00 Nasal Secretion MRSA (PCR) - Final 10/22/24 18:22 Blood Culture (Wb) - Anticubital Right Bacteria Detection (PCR) - Final Coag Negative Staph 10/22/24 18:22 Blood Culture (Wb) - Anticubital Right Blood Culture - Preliminary Coag Negative Staph 10/22/24 22:10 Mucosa - Nasopharyngeal Respiratory Panel (PCR) - Final 10/22/24 19:15 Urine, Clean Catch Legionella Antigen - Final 10/22/24 19:15 Urine, Clean Catch Streptococcus pneumoniae Antigen (M - Final Laboratory Results 10/24/24 20:08: D-Dimer Quant (PE/DVT) 0.82 H* 10/25/24 06:39: WBC 13.6 H, RBC 4.00 L, Hgb 10.2 L, Hct 33.7 L, MCV 84.3, MCH 25.5 L, MCHC 30.3 L, RDW Std Deviation 46.3 H, RDW Coeff of Maya 15.0 H, Plt Count 310, MPV 10.2, Immature Gran % (Auto) 3.100 H, Neut % (Auto) 80.8 H, Lymph % (Auto) 10.2 L, [place] % (Auto) 5.7, Eos % (Auto) 0.0, Baso % (Auto) 0.2, Absolute Neuts (auto) 11.0 H, Absolute Lymphs (auto) 1.39, Nucleated RBC % 0, Sodium 141, Potassium 4.6, Chloride 104, Carbon Dioxide 27.4, Anion Gap 9, BUN 19, Creatinine 0.78, Estim Creat Clear Calc 111.79, Est GFR (MDRD) Non-Af 106, BUN/Creatinine Ratio 24.7 H, Glucose 135 H, Calcium 9.0 Clinical Impression(s) from Imaging Studies Chest X-Ray 10/22/24 18:40 IMPRESSION: Persistent bibasilar airspace opacities and atelectasis. Trace bibasilar pleural effusions. Reading Location: [facility] Chest CT 10/22/24 22:26 IMPRESSION: COPD. Bronchiectasis and extensive bronchial debris. No consolidation or other definite acute chest findings. Reading Location[facility] Charges/Coding Visit Charges Inpatient E&M: 02926 Subs Hosp L2
--- NOTE | 2024-10-25 17:36 | PN.CC_ITS ---
Objective Data Objective Data Vital Signs: Vital Signs Last response 3 Temperature 36.6 C 10/25/24 17:05 Temperature Source Oral 10/25/24 17:05 Pulse Rate 86 10/25/24 17:05 Pulse Strength Normal (2+) 10/24/24 20:38 Respiratory Rate 21 H 10/25/24 17:05 Respiratory Effort Normal 10/25/24 11:52 Respiratory Depth Normal 10/24/24 02:37 Respiratory Pattern Normal 10/25/24 10:01 Blood Pressure 116/92 H 10/25/24 08:20 Blood Pressure Mean 100 10/25/24 08:20 Blood Pressure Source Monitor 10/25/24 11:50 Blood Pressure Position Left Lateral 10/25/24 11:50 Blood Pressure Location Right Arm 10/25/24 11:50 Pulse Ox 93 10/25/24 17:05 Oxygen Delivery Method High Flow 10/25/24 17:05 Oxygen Flow Rate (L/min) 6 10/25/24 17:05 Fraction of Inspired Oxygen (FIO2) 8 10/25/24 10:01 I&O: I&O Last 24 Hours 3 10/24/24 10/25/24 10/25/24 23:59 11:59 23:59 Intake Total 100 / 100 651.87 / 817.87 166 / 817.87 Output Total 700 / 700 1000 / 1700 700 / 1700 Balance -600 / -600 -348.13 / -882.13 -534 / -882.13 I&O: Total Stay 3 10/22/24 18:05 thru 10/25/24 17:06 Intake Total 6237.12 Output Total 3500 Balance 2737.12 Current Meds Ordered / Administered: Current meds ordered / Administered 3 Generic Name Dose Route Start Last Admin Trade Name Freq PRN Reason Stop Dose Admin Acetaminophen 650 mg 10/22/24 21:49 10/25/24 08:30 Acetaminophen 325 Mg Tablet PO 650 mg Q6H PRN PRN Administration Pain 1-5/10 or Fever Acetylcysteine 800 mg 10/24/24 13:15 10/25/24 07:27 Acetylcysteine 800 Mg/4 Ml Vial.Neb. INHALATION 800 mg Q6H.RT CHIDI Administration Albuterol Sulfate 2.5 mg 10/22/24 22:18 Albuterol 2.5 Mg/3 Ml Vial.Neb. INHALATION Q4H PRN PRN Wheezing Albuterol/Ipratropium 3 ml 10/24/24 13:15 10/25/24 07:27 Ipratropium/Albuterol Sulfate 3 Ml Ampul.Neb INHALATION 3 ml Q6HWA.RT CHIDI Administration Doxycycline Monohydrate 100 mg 10/23/24 22:00 10/25/24 08:30 Doxycycline 100 Mg Capsule PO 100 mg BID CHIDI Administration Enoxaparin Sodium 40 mg 10/24/24 10:00 10/25/24 08:23 Enoxaparin 40 Mg/0.4 Ml Syringe SC Not Given DAILY CHIDI Guaifenesin 2 tablet 10/23/24 22:00 10/25/24 08:31 Guaifenesin/D-Methorphan Tab.Sr.12h PO 2 tablet BID CHIDI Administration Sodium Chloride 250 mls @ 15 mls/hr 10/22/24 21:50 10/25/24 15:20 IV 15 mls/hr .[id number] PRN Infusion Saline Flush Sodium Chloride 250 mls @ 15 mls/hr 10/22/24 21:50 IV .[id number] PRN Additional IVPB Infusion Cefepime HCl 2 gm/ Sodium 100 mls @ 200 mls/hr 10/24/24 22:00 10/25/24 15:20 Chloride IV Infused Q8 CHIDI Infusion Vancomycin IV-PHARMACY TO DOSE 500 mls @ 250 mls/hr 10/24/24 19:25 1 each/ Sodium Chloride IV PRN PRN Rx to Dose Protocol Vancomycin HCl 1,250 mg/ 275 mls @ 167 mls/hr 10/24/24 21:00 10/25/24 10:21 Sodium Chloride IV Infused Q12H CHIDI Infusion Ketorolac Tromethamine 15 mg 10/23/24 12:33 10/24/24 14:47 Ketorolac 15 Mg/Ml Vial IV 10/28/24 12:33 15 mg Q6H PRN PRN Administration Headache/musculoskeletal pain Melatonin 3 mg 10/22/24 21:49 Melatonin 3 Mg Tablet PO QHS PRN PRN INSOMNIA Methylprednisolone Sodium Succinate 40 mg 10/23/24 22:00 10/25/24 14:46 Methylprednisolone Sod Succ 40 Mg/Ml Vial IV 40 mg Q8 CHIDI Administration Morphine Sulfate 2 mg 10/22/24 21:49 10/25/24 08:31 Morphine 2 Mg/Ml Syringe IV 2 mg Q4H PRN PRN Administration Pain Score 6-10 Pantoprazole Sodium 40 mg 10/22/24 22:00 10/25/24 08:30 Pantoprazole Sodium 40 Mg Tablet PO 40 mg BID CHIDI Administration Potassium Phos/Sodium Phos 1 packet 10/24/24 14:00 10/25/24 14:46 Na Biphos/Potassium Phosphate Packet PO 10/26/24 14:01 1 packet TID CHIDI Administration Sertraline HCl 100 mg 10/23/24 10:00 10/25/24 08:31 Sertraline 100 Mg Tablet PO 100 mg DAILY CHIDI Administration Sodium Chloride 10 - 40 ml 10/22/24 21:50 10/25/24 08:31 0.9% Saline Lock 10 Ml Syringe IV 10 ml UD PRN Administration SALINE FLUSH Trazodone HCl 100 mg 10/22/24 21:49 Trazodone 100 Mg Tablet PO QHS PRN PRN SLEEP Vancomycin Protocol 1 lab 10/26/24 07:30 Vancomycin Trough/Random Due MC 10/26/24 09:30 DAILY CHIDI Lab / Micro Data 10/25/24 06:39 10/25/24 06:39 Labs: Laboratory Results - last 24 hr 10/24/24 20:08: D-Dimer Quant (PE/DVT) 0.82 H* 10/25/24 06:39: WBC 13.6 H, RBC 4.00 L, Hgb 10.2 L, Hct 33.7 L, MCV 84.3, MCH 25.5 L, MCHC 30.3 L, RDW Std Deviation 46.3 H, RDW Coeff of Maya 15.0 H, Plt Count 310, MPV 10.2, Immature Gran % (Auto) 3.100 H, Neut % (Auto) 80.8 H, Lymph % (Auto) 10.2 L, Cochran % (Auto) 5.7, Eos % (Auto) 0.0, Baso % (Auto) 0.2, A bsolute Neuts (auto) 11.0 H, Absolute Lymphs (auto) 1.39, Nucleated RBC % 0, Sodium 141, Potassium 4.6, Chloride 104, Carbon Dioxide 27.4, Anion Gap 9, BUN 19, Creatinine 0.78, Estim Creat Clear Calc 111.79, Est GFR (MDRD) Non-Af 106, B UN/Creatinine Ratio 24.7 H, Glucose 135 H, Calcium 9.0 Micro: Microbiology 10/25/24 08:22 Mucosa - Nasopharyngeal Coronavirus COVID-19 PCR - Final 10/24/24 22:00 Sputum, Expectorated/Coughed Gram Stain - Final 10/22/24 19:15 Urine, Clean Catch Urine Culture - Final Mixed Gram Positive Organisms 10/22/24 18:22 Blood Culture (Wb) - Left Hand Blood Culture - Preliminary No growth in 48 hours. 10/24/24 23:00 Nasal Secretion MRSA (PCR) - Final Imaging Radiology Impression Chest CTA 10/24/24 22:01 IMPRESSION: Redemonstration of COPD, including bronchiectasis and extensive bronchial debris. No embolism, dissection, or pneumonia. Reading Location: [place] [id number] Assessment and Plan . Assessment and plan: Subjective: No acute events o/n. Feels breathing improving today. Down to 6L NC Physical Exam: Gen - NAD, well-developed, fatigued HEENT - MMM. Sclera anicteric Resp - Diminished BS. Breathing nonlabored CV - RRR. No m/g/r Abd - Soft, NT, ND Ext - No c/c/e. Skin - No rashes? Neuro - Grossly nonfocal. Alert and oriented I have reviewed the pertinent vital sign, laboratory, and imaging data. ASSESSMENT: # Acute on chronic hypoxic respiratory failure - on home 4L NC # COPD/broncheictasis exacerbation # h/o severe MRSA pneumonia # CoNS bacteremia - 1/2 sets, ?contaminant # h/o TIA # PUD # Anemia # Depression/anxiety # h/o tobacco use PLAN: -Down to 6L NC at rest, wean to keep sats > 90%. Not needing NIV after exertion today -IV solumedrol, duonebs -Cont empiric cefepime/doxy. Cont vanc given CoNS bacteremia. f/u sputum Cx, MRSA nares. Repeat BCx. Viral panel, urine strep/legionella negative -Agree with adding mucomyst with flutter valve/vest therapy. Cont guafenesin -Consider VTE rule out if worsening again -Cont OP pulmonary clinic f/u FEN/GI: PO diet Proph DVT/GI: Lovenox, protonix The entirety of this encounter was done via telemedicine using both audio and video. Consent was obtained.
[2024-10-26] VITALS (14 sets, daily range): BP systolic 118–134; BP diastolic 79–96; PULSE 62–89; RESP 6–23; TEMP 36.2–36.9; O2SAT 92–100; BMI 25.1
[2024-10-26] MEDS: Cefepime HCl 2 GM in 0.9% Normal Saline (100mL MB+) 100 ML IV ×3 (05:14→21:37)
[2024-10-26] MEDS: Na Biphos/Potassium Phosphate PACKET 1 PACKET PO ×2 (05:19→13:40)
[2024-10-26 10:06] LABS: Vancomycin, Trough Level 8.9 ug/mL (5.0-15.0)
[2024-10-26] MEDS: guaiFENesin/D-Methorphan TAB.SR.12H 2 TABLET PO ×2 (10:28→21:39)
--- NOTE | 2024-10-26 10:30 | PCM.RX.CS ---
Consult Antibiotic Management Pharmacy has been consulted to manage selected antibiotic: Vancomycin Type of Intervention Type of Consult: Follow-up Suspected Infection Suspected Infection: Bacteremia Prior Doses of Antibiotics Prior Doses of Antibiotics Received/Current Regimen: current dose is 1250mg IV q12h Labs Labs: Sodium 141 mmol/L (133-145) 10/25/24 06:39 Potassium 4.6 mmol/L (3.3-5.1) 10/25/24 06:39 Chloride 104 mmol/L (98-108) 10/25/24 06:39 Carbon Dioxide 27.4 mmol/L (21.0-32.0) 10/25/24 06:39 Anion Gap 9 (5-15) 10/25/24 06:39 BUN 19 mg/dL (4-19) 10/25/24 06:39 Creatinine 0.78 mg/dL (0.70-1.20) 10/25/24 06:39 Est GFR (MDRD) Non-Af 106 (>60) 10/25/24 06:39 BUN/Creatinine Ratio 24.7 RATIO (10-20) H 10/25/24 06:39 Glucose 135 mg/dL (70-99) H 10/25/24 06:39 Vancomycin Trough 8.9 ug/mL (5.0-15.0) 10/26/24 08:36 Microbiology Microbiology: Microbiology 10/25/24 08:22 Mucosa - Nasopharyngeal Coronavirus COVID-19 PCR - Final 10/24/24 22:00 Sputum, Expectorated/Coughed Gram Stain - Final 10/22/24 19:15 Urine, Clean Catch Urine Culture - Final Mixed Gram Positive Organisms 10/22/24 18:22 Blood Culture (Wb) - Left Hand Blood Culture - Preliminary No growth in 48 hours. 10/24/24 23:00 Nasal Secretion MRSA (PCR) - Final 10/22/24 18:22 Blood Culture (Wb) - Anticubital Right Bacteria Detection (PCR) - Final Coag Negative Staph 10/22/24 18:22 Blood Culture (Wb) - Anticubital Right Blood Culture - Preliminary Coag Negative Staph 10/22/24 22:10 Mucosa - Nasopharyngeal Respiratory Panel (PCR) - Final 10/22/24 19:15 Urine, Clean Catch Legionella Antigen - Final 10/22/24 19:15 Urine, Clean Catch Streptococcus pneumoniae Antigen (M - Final Dosing Weight Weight used for dosin.6 kg Estimated Creatinine Clearance Estimated Creatinine Clearance: 112 ml/min Goal Trough Goal Trough: 15-20 mcg/mL Pharmacy Plan for Drug Dosing Pharmacy Plan for Drug Dosing: The vanc trough drawn at 08:36 today (12 hours after the previous dose) was 8.9 mcg/ml. This is below goal range so will increase dose to 1750mg IV q12h. Repeat a trough before the 4th dose. Pharmacy Service will continue to monitor and adjust dosing as required. Follow-Up Labs Follow-Up Labs: Trough: Vancomycin Date/Time Labs Ordered Labs to be done on [date and time ordered]: 10/27/24 22:30
[2024-10-26] MEDS: Vancomycin HCl 1,750 MG in 0.9% Normal Saline (500mL Bag) 500 ML 250 MG IV ×2 (11:14→23:06)
[2024-10-26] MEDS: 0.9% Saline Lock 10 ML Syringe IV ×2 (13:40→16:30)
--- NOTE | 2024-10-26 16:21 | PCM.PN.HOSP ---
Reason for Visit Chief Complaint: SOB. Objective Data Objective Data Vital Signs: Vital Signs Temp Pulse Resp BP Pulse Ox O2 Del Method O2 Flow Rate 97.1 F L 62 18 118/79 96 Nasal Cannula 6 10/26/24 13:47 10/26/24 14:26 10/26/24 15:03 10/26/24 13:47 10/26/24 13:47 10/26/24 15:03 10/26/24 14:26 FiO2 8 10/26/24 03:48 Oxygen Flow Rate (L/min) 6 Oxygen Delivery Method Nasal Cannula Weight: 175 lb 7.807 oz Body Mass Index (BMI) 25.1 Intake & Output: Intake and Output for Last 24 Hours 10/24/24 10/25/24 10/26/24 23:59 23:59 23:59 Intake Total 100 / 100 1192.87 / 1192.87 2217.13 / 2217.13 Output Total 700 / 700 3200 / 3200 1575 / 1575 Balance -600 / -600 - / - 642.13 / 642.13 Lab / Micro Data 10/25/24 06:39 10/25/24 06:39 Labs: Laboratory Results - last 24 hr 10/26/24 08:36: Vancomycin Trough 8.9 Micro: Microbiology 10/24/24 22:00 Sputum, Expectorated/Coughed Gram Stain - Final 10/24/24 22:00 Sputum, Expectorated/Coughed Respiratory Culture - Preliminary Appears to be normal respiratory olayinka. Further studies to follow. 10/25/24 08:22 Mucosa - Nasopharyngeal Coronavirus COVID-19 PCR - Final 10/22/24 19:15 Urine, Clean Catch Urine Culture - Final Mixed Gram Positive Organisms 10/22/24 18:22 Blood Culture (Wb) - Left Hand Blood Culture - Preliminary No growth in 48 hours. 10/24/24 23:00 Nasal Secretion MRSA (PCR) - Final 10/22/24 18:22 Blood Culture (Wb) - Anticubital Right Bacteria Detection (PCR) - Final Coag Negative Staph 10/22/24 18:22 Blood Culture (Wb) - Anticubital Right Blood Culture - Preliminary Coag Negative Staph 10/22/24 22:10 Mucosa - Nasopharyngeal Respiratory Panel (PCR) - Final 10/22/24 19:15 Urine, Clean Catch Legionella Antigen - Final 10/22/24 19:15 Urine, Clean Catch Streptococcus pneumoniae Antigen (M - Final Physical Exam Narrative Seen and examined. Patient feels better than yesterday. Still on 6 L of oxygen. He states usually on baseline 4 L of oxygen. Previous history of MRSA pneumonia. Patient has history of smoking started at the age of 12. He started with 3 to 4 cigarettes but went up to 1.5 to 2 pack and then quit. He quit 2 years ago in 2022 history of double pneumonia, emphysema. He has chronic cough but his cough got worse with shortness of breath therefore COPD exacerbation Physical exam General: Alert, Oriented x3, Cooperative HEENT: Atraumatic, PERRLA, EOMI, Normocephalic. Oral: No Gingival or Mucosal Lesions/ Ulcerations Neck: Supple, No JVD, Negative Carotid Bruits Chest wall/Lungs: Air entry diminished in all lung hernandez. Mild bilateral rhonchi and wheezing are better. Cardiovascular: Regular rate and rhythm, Normal S1,S2, No M/G/R Abdomen: Bowel Sounds Present, Soft, Non Tender, Non-Distended : No dysuria. No renal angle tenderness. No suprapubic tenderness. Extremities: No edema, Capillary Refill Less than 3 Seconds Skin: No rashes, No breakdown Musculoskeletal: No Tenderness to Palpation of Joints or Extremities Neurological: Cranial nerves II-XII grossly intact, DTR 2+/4. No acute focal neurological deficit. Psych/Mental Status: Normal Affect, Appropriate. Assessment & Plan Assessment/Plan (1) COPD exacerbation: (2) Bronchiectasis: QUALIFIERS: Bronchiectasis type: with acute exacerbation Qualified Code(s): J47.1 - Bronchiectasis with (acute) exacerbation (3) Mucus plugging of bronchi: (4) Acute on chronic respiratory failure with hypoxemia: (5) Hypophosphatasia: PLAN: Plan 54-year-old gentleman with history of chronic hypoxic respiratory failure on 4 L of O2 Treated with shortness of breath and not feeling well. Pulse ox was 88% objective evidence of dyspnea. Patient also was 86% on 4 L of O2. 1. COPD/emphysema and bronchiectasis exacerbation with suspicion of smoking-related ILD: Patient had chest x-ray and CT which shows bronchial wall thickening. Also reported bronchiectasis most pronounced in lower lobes right more than left with extensive bronchial debris. No consolidation or effusion or pneumothorax. 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 No definite consolidation Prelim blood culture shows Staph aureus but it PCR came coagulase-negative staph. Empirically started IV vancomycin but is discontinued. On IV ceftriaxone. Doxycycline added. Urinary antigens and respiratory panel negative. Will need to follow-up with the coreroom foundry laborer as an outpatient 10/24: With suspicion of bronchiectasis, patient is on IV antibiotics as mentioned above. On acetylcysteine inhalation. Incentive spirometry. Harvester Operator consulted for further opinion. Vest therapy. 10/25: Oxygen requirement better 6 L. Was evaluated by hospice home care coordinator and IV cefepime was added to cover Pseudomonas. Continue doxycycline vancomycin was added for CoNS bacteremia 10/26: Respiratory rate is better at 15 to 18/min. Still on 6 L of oxygen. Intermittent BiPAP at night. No fever or tachycardia. Prelim sputum culture appears normal respiratory olayinka. Continue all treatment 2. AE COPD with [id number] Hypoxic Respiratory Failure requiring BiPAP Maintain IV methylprednisolone with scheduled and prn nebulizers/inhalers. Wean BiPAP as tolerated. 11/11 patient used BiPAP yesterday. 3. Hypophosphatemia of 1.1 mg/dL present on admission - Give supplemental K-Phos 40 mmol IV once and then recheck level in AM to confirm repletion. 10/24: Repeat phosphorus 2.1, serum magnesium 2.0. Potassium 4.6. 4. Chronic iron-deficiency anemia: H&H 12.7, MCV 82. H&H dropped to 10.8/35%. Iron studies shows serum iron 11, TIBC 331 and iron saturation 3.3%. Ferritin 91. Ferrous sulfate ordered 10/24: H&H 9.3/37.1%. 5. Depression with anxiety; on sertraline and trazodone - Maintain home regimen as before. GERD with history of PUD; on pantoprazole BID - Resume PPI as previous. DVT prophylaxis - Enoxaparin 40 mg sq daily plus SCD's. Microbiology Past 72 Hours 10/24/24 22:00 Sputum, Expectorated/Coughed Gram Stain - Final 10/24/24 22:00 Sputum, Expectorated/Coughed Respiratory Culture - Preliminary Appears to be normal respiratory olayinka. Further studies to follow. 10/25/24 08:22 Mucosa - Nasopharyngeal Coronavirus COVID-19 PCR - Final 10/22/24 19:15 Urine, Clean Catch Urine Culture - Final Mixed Gram Positive Organisms 10/22/24 18:22 Blood Culture (Wb) - Left Hand Blood Culture - Preliminary No growth in 48 hours. 10/24/24 23:00 Nasal Secretion MRSA (PCR) - Final 10/22/24 18:22 Blood Culture (Wb) - Anticubital Right Bacteria Detection (PCR) - Final Coag Negative Staph 10/22/24 18:22 Blood Culture (Wb) - Anticubital Right Blood Culture - Preliminary Coag Negative Staph Laboratory Results 10/26/24 08:36: Vancomycin Trough 8.9 Clinical Impression(s) from Imaging Studies Chest X-Ray 10/22/24 18:40 IMPRESSION: Persistent bibasilar airspace opacities and atelectasis. Trace bibasilar pleural effusions. [facility] Chest CT 10/22/24 22:26 IMPRESSION: COPD. Bronchiectasis and extensive bronchial debris. No consolidation or other definite acute chest findings. [facility] Charges/Coding Visit Charges Inpatient E&M: 71373 Subs Hosp L2
--- NOTE | 2024-10-26 19:46 | PN.CC_ITS ---
Objective Data Objective Data Vital Signs: Vital Signs Last response 3 Temperature 36.2 C L 10/26/24 13:47 Temperature Source Oral 10/26/24 13:47 Pulse Rate 62 10/26/24 14:26 Pulse Strength Normal (2+) 10/25/24 23:16 Respiratory Rate 18 10/26/24 15:03 Respiratory Effort Non-Labored 10/26/24 09:11 Respiratory Depth Normal 10/26/24 15:03 Respiratory Pattern Normal 10/26/24 14:26 Blood Pressure 118/79 10/26/24 13:47 Blood Pressure Mean 92 10/26/24 13:47 Blood Pressure Source Monitor 10/26/24 13:47 Blood Pressure Position Semi-Fowlers 10/26/24 13:47 Blood Pressure Location Left Arm 10/26/24 13:47 Pulse Ox 96 10/26/24 13:47 Oxygen Delivery Method Nasal Cannula 10/26/24 15:03 Oxygen Flow Rate (L/min) 6 10/26/24 14:26 Fraction of Inspired Oxygen (FIO2) 8 10/26/24 03:48 I&O: I&O Last 24 Hours 3 10/25/24 10/26/24 10/26/24 23:59 11:59 23:59 Intake Total 541 / 1192.87 782.13 / 2217.13 1435 / 2217.13 Output Total 2200 / 3200 625 / 1575 950 / 1575 Balance -1659 / -2006.13 157.13 / 642.13 485 / 642.13 I&O: Total Stay 3 10/22/24 18:05 thru 10/26/24 14:10 Intake Total 8829.25 Output Total 6575 Balance 2254.25 Current Meds Ordered / Administered: Current meds ordered / Administered 3 Generic Name Dose Route Start Last Admin Trade Name Freq PRN Reason Stop Dose Admin Acetaminophen 650 mg 10/22/24 21:49 10/26/24 16:29 Acetaminophen 325 Mg Tablet PO 650 mg Q6H PRN PRN Administration Pain 1-5/10 or Fever Acetylcysteine 800 mg 10/24/24 13:15 10/25/24 20:11 Acetylcysteine 800 Mg/4 Ml Vial.Neb. INHALATION 800 mg Q6H.RT CHIDI Administration Albuterol Sulfate 2.5 mg 10/22/24 22:18 Albuterol 2.5 Mg/3 Ml Vial.Neb. INHALATION Q4H PRN PRN Wheezing Albuterol/Ipratropium 3 ml 10/24/24 13:15 10/26/24 13:36 Ipratropium/Albuterol Sulfate 3 Ml Ampul.Neb INHALATION 3 ml Q6HWA.RT CHIDI Administration Doxycycline Monohydrate 100 mg 10/23/24 22:00 10/26/24 10:28 Doxycycline 100 Mg Capsule PO 100 mg BID CHIDI Administration Enoxaparin Sodium 40 mg 10/24/24 10:00 10/26/24 10:33 Enoxaparin 40 Mg/0.4 Ml Syringe SC Not Given DAILY CHIDI Guaifenesin 2 tablet 10/23/24 22:00 10/26/24 10:28 Guaifenesin/D-Methorphan Tab.Sr.12h PO 2 tablet BID CHIDI Administration Sodium Chloride 250 mls @ 15 mls/hr 10/22/24 21:50 10/26/24 05:48 IV Infused .[id number] PRN Infusion Saline Flush Sodium Chloride 250 mls @ 15 mls/hr 10/22/24 21:50 IV .[id number] PRN Additional IVPB Infusion Cefepime HCl 2 gm/ Sodium 100 mls @ 200 mls/hr 10/24/24 22:00 10/26/24 14:10 Chloride IV Infused Q8 CHIDI Infusion Vancomycin IV-PHARMACY TO DOSE 500 mls @ 250 mls/hr 10/24/24 19:25 1 each/ Sodium Chloride IV PRN PRN Rx to Dose Protocol Vancomycin HCl 1,750 mg/ 535 mls @ 250 mls/hr 10/26/24 11:00 10/26/24 13:49 Sodium Chloride IV Infused Q12H CHIDI Infusion Ketorolac Tromethamine 15 mg 10/23/24 12:33 10/26/24 16:30 Ketorolac 15 Mg/Ml Vial IV 10/28/24 12:33 15 mg Q6H PRN PRN Administration Headache/musculoskeletal pain Melatonin 3 mg 10/22/24 21:49 Melatonin 3 Mg Tablet PO QHS PRN PRN INSOMNIA Methylprednisolone Sodium Succinate 40 mg 10/23/24 22:00 10/26/24 13:40 Methylprednisolone Sod Succ 40 Mg/Ml Vial IV 40 mg Q8 CHIDI Administration Morphine Sulfate 2 mg 10/22/24 21:49 10/26/24 05:23 Morphine 2 Mg/Ml Syringe IV 2 mg Q4H PRN PRN Administration Pain Score 6-10 Pantoprazole Sodium 40 mg 10/22/24 22:00 10/26/24 10:28 Pantoprazole Sodium 40 Mg Tablet PO 40 mg BID CHIDI Administration Sertraline HCl 100 mg 10/23/24 10:00 10/26/24 10:29 Sertraline 100 Mg Tablet PO 100 mg DAILY CHIDI Administration Sodium Chloride 10 - 40 ml 10/22/24 21:50 10/26/24 16:30 0.9% Saline Lock 10 Ml Syringe IV 10 ml UD PRN Administration SALINE FLUSH Trazodone HCl 100 mg 10/22/24 21:49 Trazodone 100 Mg Tablet PO QHS PRN PRN SLEEP Vancomycin Protocol 1 lab 10/27/24 21:30 Vancomycin Trough/Random Due MC 10/27/24 23:30 DAILY CHIDI Lab / Micro Data 10/25/24 06:39 10/25/24 06:39 Labs: Laboratory Results - last 24 hr 10/26/24 08:36: Vancomycin Trough 8.9 Micro: Microbiology 10/24/24 22:00 Sputum, Expectorated/Coughed Gram Stain - Final 10/24/24 22:00 Sputum, Expectorated/Coughed Respiratory Culture - Preliminary Appears to be normal respiratory olayinka. Further studies to follow. Assessment and Plan . Assessment and plan: Subjective: No acute events o/n. Feels breathing overall mildly improving though still dyspneic with exertion. Remains on 6L NC, though used BiPAP briefly earlier in day after exerting himself Physical Exam: Gen - NAD, well-developed, fatigued HEENT - MMM. Sclera anicteric Resp - Diminished thoughout, prolonged expiratory phase. Breathing nonlabored CV - RRR. No m/g/r Abd - Soft, NT, ND Ext - No c/c/e. Skin - No rashes? Neuro - Grossly nonfocal. Alert and oriented I have reviewed the pertinent vital sign, laboratory, and imaging data. ASSESSMENT: # Acute on chronic hypoxic respiratory failure - on home 4L NC # COPD/broncheictasis exacerbation # h/o severe MRSA pneumonia # CoNS bacteremia - 1/2 sets, ?contaminant # h/o TIA # PUD # Anemia # Depression/anxiety # h/o tobacco use PLAN: -Down to 6L NC at rest, wean to keep sats > 90%. Cont NIV as tolerated with sleep for now -IV solumedrol, duonebs, add budesonide. Discussed with pt will likely need some more time for further improvement given severity of lung disease -Cont empiric cefepime/doxy. Cont vanc given CoNS bacteremia. f/u sputum Cx, MRSA nares. Repeat BCx. Viral panel, urine strep/legionella negative -Cont mucomyst with flutter valve/vest therapy. Cont guafenesin -CTA chest negative for PE -Cont OP pulmonary clinic f/u FEN/GI: PO diet Proph DVT/GI: Lovenox, protonix The entirety of this encounter was done via telemedicine using both audio and video. Consent was obtained.
[2024-10-26] MEDS: Acetylcysteine 800 MG/4 ML VIAL.NEB. INHALATION (20:06)
[2024-10-27] VITALS (14 sets, daily range): BP systolic 118–132; BP diastolic 72–108; PULSE 63–97; RESP 6–26; TEMP 36.4–36.8; O2SAT 6–100; BMI 25.0
[2024-10-27] MEDS: Cefepime HCl 2 GM in 0.9% Normal Saline (100mL MB+) 100 ML IV ×3 (05:27→22:24)
[2024-10-27] MEDS: Acetylcysteine 800 MG/4 ML VIAL.NEB. INHALATION ×3 (07:48→19:25)
[2024-10-27] MEDS: Budesonide Respules 0.5 MG/2 ML AMPUL.NEB. INHALATION ×2 (07:49→19:25)
[2024-10-27] MEDS: Vancomycin HCl 1,750 MG in 0.9% Normal Saline (500mL Bag) 500 ML 250 MG IV (10:26)
[2024-10-27] MEDS: guaiFENesin/D-Methorphan TAB.SR.12H 2 TABLET PO ×2 (10:26→22:25)
--- NOTE | 2024-10-27 14:47 | PCM.PN.HOSP ---
Reason for Visit Chief Complaint: SOB. Objective Data Objective Data Vital Signs: Vital Signs Temp Pulse Resp BP Pulse Ox O2 Del Method O2 Flow Rate 97.9 F 77 20 H 132/84 H 93 High Flow 6 10/27/24 11:58 10/27/24 13:13 10/27/24 13:13 10/27/24 11:58 10/27/24 11:58 10/27/24 11:58 10/27/24 11:58 FiO2 8 10/27/24 07:46 Oxygen Flow Rate (L/min) 6 Oxygen Delivery Method High Flow Weight: 175 lb 0.752 oz Body Mass Index (BMI) 25.0 Intake & Output: Intake and Output for Last 24 Hours 10/25/24 10/26/24 10/27/24 23:59 23:59 23:59 Intake Total 1192.87 / 1192.87 2317.13 / 2317.13 1870 / 1870 Output Total 3200 / 3200 187 / 1875 Balance - / 442.13 / 44.13 1869 / 0 Lab / Micro Data 10/25/24 06:39 10/25/24 06:39 Micro: Microbiology 10/24/24 20:08 Blood Culture (Wb) - Anticubital Left Blood Culture - Preliminary No growth in 48 hours. 10/24/24 22:00 Sputum, Expectorated/Coughed Gram Stain - Final 10/24/24 22:00 Sputum, Expectorated/Coughed Respiratory Culture - Final 10/25/24 08:22 Mucosa - Nasopharyngeal Coronavirus COVID-19 PCR - Final 10/22/24 19:15 Urine, Clean Catch Urine Culture - Final Mixed Gram Positive Organisms 10/22/24 18:22 Blood Culture (Wb) - Left Hand Blood Culture - Preliminary No growth in 48 hours. 10/24/24 23:00 Nasal Secretion MRSA (PCR) - Final 10/22/24 18:22 Blood Culture (Wb) - Anticubital Right Bacteria Detection (PCR) - Final Coag Negative Staph 10/22/24 18:22 Blood Culture (Wb) - Anticubital Right Blood Culture - Preliminary Coag Negative Staph 10/22/24 22:10 Mucosa - Nasopharyngeal Respiratory Panel (PCR) - Final 10/22/24 19:15 Urine, Clean Catch Legionella Antigen - Final 10/22/24 19:15 Urine, Clean Catch Streptococcus pneumoniae Antigen (M - Final Physical Exam Narrative Seen and examined. Subjectively, the patient feels better than yesterday. Still on 6 L of oxygen for last 2 days. He states usually on baseline 4 L of oxygen. Previous history of MRSA pneumonia. Patient has history of smoking started at the age of 12. He started with 3 to 4 cigarettes but went up to 1.5 to 2 pack and then quit. He quit 2 years ago in 2022 history of double pneumonia, emphysema. He has chronic cough but his cough got worse with shortness of breath therefore COPD exacerbation Physical exam General: Alert, Oriented x3, Cooperative HEENT: Atraumatic, PERRLA, EOMI, Normocephalic. Oral: No Gingival or Mucosal Lesions/ Ulcerations Neck: Supple, No JVD, Negative Carotid Bruits Chest wall/Lungs: Air entry diminished in all lung hernandez. Lung sounds clear. Cardiovascular: Regular rate and rhythm, Normal S1,S2, No M/G/R Abdomen: Bowel Sounds Present, Soft, Non Tender, Non-Distended : No dysuria. No renal angle tenderness. No suprapubic tenderness. Extremities: No edema, Capillary Refill Less than 3 Seconds Skin: No rashes, No breakdown Musculoskeletal: No Tenderness to Palpation of Joints or Extremities Neurological: Cranial nerves II-XII grossly intact, DTR 2+/4. No acute focal neurological deficit. Psych/Mental Status: Normal Affect, Appropriate. Assessment & Plan Assessment/Plan (1) COPD exacerbation: (2) Bronchiectasis: QUALIFIERS: Bronchiectasis type: with acute exacerbation Qualified Code(s): J47.1 - Bronchiectasis with (acute) exacerbation (3) Mucus plugging of bronchi: (4) Acute on chronic respiratory failure with hypoxemia: (5) Hypophosphatasia: PLAN: Plan 54-year-old gentleman with history of chronic hypoxic respiratory failure on 4 L of O2 Treated with shortness of breath and not feeling well. Pulse ox was 88% objective evidence of dyspnea. Patient also was 86% on 4 L of O2. 1. COPD/emphysema and bronchiectasis exacerbation with suspicion of smoking-related ILD: Patient had chest x-ray and CT which shows bronchial wall thickening. Also reported bronchiectasis most pronounced in lower lobes right more than left with extensive bronchial debris. No consolidation or effusion or pneumothorax. 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 No definite consolidation Prelim blood culture shows Staph aureus but it PCR came coagulase-negative staph. Empirically started IV vancomycin but is discontinued. On IV ceftriaxone. Doxycycline added. Urinary antigens and respiratory panel negative. Will need to follow-up with the delinquent tax collection assistant as an outpatient 10/24: With suspicion of bronchiectasis, patient is on IV antibiotics as mentioned above. On acetylcysteine inhalation. Incentive spirometry. Conflicts Analyst consulted for further opinion. Vest therapy. 10/25: Oxygen requirement better 6 L. Was evaluated by pressure sealer and tester and IV cefepime was added to cover Pseudomonas. Continue doxycycline vancomycin was added for CoNS bacteremia 10/26: Respiratory rate is better at 15 to 18/min. Still on 6 L of oxygen. Intermittent BiPAP at night. No fever or tachycardia. Prelim sputum culture appears normal respiratory olayinka. Continue all treatment 10/27: Patient still on 6 L of oxygen, on full maximal treatment of bronchodilator, acetylcysteine, IV Solu-Medrol, incentive spirometry and vest. Patient's symptoms are improved but still high in need of oxygen. Walking pulse oximetry ordered 2. AE COPD with [id number] Hypoxic Respiratory Failure requiring BiPAP Maintain IV methylprednisolone with scheduled and prn nebulizers/inhalers. Wean BiPAP as tolerated. 11/11 patient used BiPAP yesterday. 3. Hypophosphatemia of 1.1 mg/dL present on admission - Give supplemental K-Phos 40 mmol IV once and then recheck level in AM to confirm repletion. 10/24: Repeat phosphorus 2.1, serum magnesium 2.0. Potassium 4.6. 4. Chronic iron-deficiency anemia: H&H 12.7, MCV 82. H&H dropped to 10.8/35%. Iron studies shows serum iron 11, TIBC 331 and iron saturation 3.3%. Ferritin 91. Ferrous sulfate ordered 10/24: H&H 9.3/37.1%. 5. Depression with anxiety; on sertraline and trazodone - Maintain home regimen as before. GERD with history of PUD; on pantoprazole BID - Resume PPI as previous. DVT prophylaxis - Enoxaparin 40 mg sq daily plus SCD's. Microbiology Past 72 Hours 10/24/24 22:00 Sputum, Expectorated/Coughed Gram Stain - Final 10/24/24 22:00 Sputum, Expectorated/Coughed Respiratory Culture - Preliminary Appears to be normal respiratory olayinka. Further studies to follow. 10/25/24 08:22 Mucosa - Nasopharyngeal Coronavirus COVID-19 PCR - Final 10/22/24 19:15 Urine, Clean Catch Urine Culture - Final Mixed Gram Positive Organisms 10/22/24 18:22 Blood Culture (Wb) - Left Hand Blood Culture - Preliminary No growth in 48 hours. 10/24/24 23:00 Nasal Secretion MRSA (PCR) - Final 10/22/24 18:22 Blood Culture (Wb) - Anticubital Right Bacteria Detection (PCR) - Final Coag Negative Staph 10/22/24 18:22 Blood Culture (Wb) - Anticubital Right Blood Culture - Preliminary Coag Negative Staph Laboratory Results 10/26/24 08:36: Vancomycin Trough 8.9 Clinical Impression(s) from Imaging Studies Chest X-Ray 10/22/24 18:40 IMPRESSION: Persistent bibasilar airspace opacities and atelectasis. Trace bibasilar pleural effusions. Reading Location: [facility] Chest CT 10/22/24 22:26 IMPRESSION: COPD. Bronchiectasis and extensive bronchial debris. No consolidation or other definite acute chest findings. [facility] Charges/Coding Visit Charges Inpatient E&M: 28672 Subs Hosp L2
[2024-10-27] MEDS: Na Biphos/Potassium Phosphate PACKET 1 PACKET PO ×2 (16:03→22:25)
--- NOTE | 2024-10-27 18:48 | PN.CC_ITS ---
Objective Data Objective Data Vital Signs: Vital Signs Last response 3 Temperature 36.8 C 10/27/24 16:04 Temperature Source Oral 10/27/24 16:04 Pulse Rate 80 10/27/24 16:04 Pulse Strength Normal (2+) 10/27/24 10:00 Respiratory Rate 15 10/27/24 16:04 Respiratory Effort Short of Breath 10/27/24 17:00 Respiratory Depth Normal 10/27/24 17:00 Respiratory Pattern Normal 10/27/24 17:00 Blood Pressure 118/72 10/27/24 16:04 Blood Pressure Mean 87 10/27/24 16:04 Blood Pressure Source Monitor 10/27/24 16:04 Blood Pressure Position Semi-Fowlers 10/27/24 16:04 Blood Pressure Location Left Arm 10/27/24 16:04 Pulse Ox 96 10/27/24 16:04 Oxygen Delivery Method High Flow 10/27/24 17:00 Oxygen Flow Rate (L/min) 6 10/27/24 17:00 Fraction of Inspired Oxygen (FIO2) 8 10/27/24 07:46 I&O: I&O Last 24 Hours 3 10/26/24 10/27/24 10/27/24 23:59 11:59 23:59 Intake Total 1535 / 2317.13 1335 / 2870 1535 / 2870 Output Total 1250 / 1875 Balance 285 / 442.13 1335 / 2870 1535 / 2870 I&O: Total Stay 3 10/22/24 18:05 thru 10/27/24 15:35 Intake Total 41733.25 Output Total 6875 Balance 4924.25 Current Meds Ordered / Administered: Current meds ordered / Administered 3 Generic Name Dose Route Start Last Admin Trade Name Freq PRN Reason Stop Dose Admin Acetaminophen 650 mg 10/22/24 21:49 10/26/24 16:29 Acetaminophen 325 Mg Tablet PO 650 mg Q6H PRN PRN Administration Pain 1-5/10 or Fever Acetylcysteine 800 mg 10/24/24 13:15 10/27/24 12:33 Acetylcysteine 800 Mg/4 Ml Vial.Neb. INHALATION 800 mg Q6H.RT CHIDI Administration Albuterol Sulfate 2.5 mg 10/22/24 22:18 Albuterol 2.5 Mg/3 Ml Vial.Neb. INHALATION Q4H PRN PRN Wheezing Albuterol/Ipratropium 3 ml 10/24/24 13:15 10/27/24 12:33 Ipratropium/Albuterol Sulfate 3 Ml Ampul.Neb INHALATION 3 ml Q6HWA.RT CHIDI Administration Budesonide 0.5 mg 10/26/24 20:00 10/27/24 07:49 Budesonide Respules 0.5 Mg/2 Ml Ampul.Neb. INHALATION 0.5 mg BID.RT CHIDI Administration Doxycycline Monohydrate 100 mg 10/23/24 22:00 10/27/24 10:25 Doxycycline 100 Mg Capsule PO 100 mg BID CHIDI Administration Enoxaparin Sodium 40 mg 10/24/24 10:00 10/27/24 10:30 Enoxaparin 40 Mg/0.4 Ml Syringe SC Not Given DAILY CHIDI Guaifenesin 2 tablet 10/23/24 22:00 10/27/24 10:26 Guaifenesin/D-Methorphan Tab.Sr.12h PO 2 tablet BID CHIDI Administration Sodium Chloride 250 mls @ 15 mls/hr 10/22/24 21:50 10/26/24 05:48 IV Infused .[id number] PRN Infusion Saline Flush Sodium Chloride 250 mls @ 15 mls/hr 10/22/24 21:50 IV .[id number] PRN Additional IVPB Infusion Cefepime HCl 2 gm/ Sodium 100 mls @ 200 mls/hr 10/24/24 22:00 10/27/24 15:35 Chloride IV Infused Q8 CHIDI Infusion Vancomycin IV-PHARMACY TO DOSE 500 mls @ 250 mls/hr 10/24/24 19:25 1 each/ Sodium Chloride IV PRN PRN Rx to Dose Protocol Vancomycin HCl 1,750 mg/ 535 mls @ 250 mls/hr 10/26/24 11:00 10/27/24 12:36 Sodium Chloride IV Infused Q12H CHIDI Infusion Ketorolac Tromethamine 15 mg 10/23/24 12:33 10/27/24 10:24 Ketorolac 15 Mg/Ml Vial IV 10/28/24 12:33 15 mg Q6H PRN PRN Administration Headache/musculoskeletal pain Melatonin 3 mg 10/22/24 21:49 Melatonin 3 Mg Tablet PO QHS PRN PRN INSOMNIA Methylprednisolone Sodium Succinate 60 mg 10/26/24 22:00 10/27/24 14:52 Methylprednisolone Sod Succ 40 Mg/Ml Vial IV 60 mg Q8 CHIDI Administration Morphine Sulfate 2 mg 10/22/24 21:49 10/26/24 05:23 Morphine 2 Mg/Ml Syringe IV 2 mg Q4H PRN PRN Administration Pain Score 6-10 Pantoprazole Sodium 40 mg 10/22/24 22:00 10/27/24 10:25 Pantoprazole Sodium 40 Mg Tablet PO 40 mg BID CHIDI Administration Potassium Phos/Sodium Phos 1 packet 10/27/24 14:50 10/27/24 16:03 Na Biphos/Potassium Phosphate Packet PO 10/29/24 14:51 1 packet TID CHIDI Administration Sertraline HCl 100 mg 10/23/24 10:00 10/27/24 10:25 Sertraline 100 Mg Tablet PO 100 mg DAILY CHIDI Administration Sodium Chloride 10 - 40 ml 10/22/24 21:50 10/26/24 16:30 0.9% Saline Lock 10 Ml Syringe IV 10 ml UD PRN Administration SALINE FLUSH Trazodone HCl 100 mg 10/22/24 21:49 Trazodone 100 Mg Tablet PO QHS PRN PRN SLEEP Vancomycin Protocol 1 lab 10/27/24 21:30 Vancomycin Trough/Random Due MC 10/27/24 23:30 DAILY CHIDI Lab / Micro Data 10/25/24 06:39 10/25/24 06:39 Micro: Microbiology 10/24/24 20:08 Blood Culture (Wb) - Anticubital Left Blood Culture - Preliminary No growth in 48 hours. 10/24/24 22:00 Sputum, Expectorated/Coughed Gram Stain - Final 10/24/24 22:00 Sputum, Expectorated/Coughed Respiratory Culture - Final Assessment and Plan . Assessment and plan: Subjective: Patient seen and examined using telemedicine. He feels better. Breathing O2 4 LPM comfortably at rest. Intermittent short periods w/ NIV support. Modest sputum production. Recent CTA reviewed - he has extensive bullous disease as well as significant bronchiectasis. Physical Exam: Gen - NAD, well-developed, appears chronically ill HEENT - MMM. Sclera anicteric Resp - Diminished throughout, prolonged expiratory phase. Breathing nonlabored CV - RRR. No m/g/r Abd - Soft, NT, ND Ext - No c/c/e. Skin - No rashes? Neuro - Grossly nonfocal. Alert and oriented I have reviewed the pertinent vital sign, laboratory, and imaging data. ASSESSMENT: # Acute on chronic hypoxic respiratory failure - on home 4L NC # COPD/bronchiectasis exacerbation # h/o severe MRSA pneumonia # h/o TIA # PUD # Anemia # Depression/anxiety # h/o tobacco use PLAN: -Down to 4L NC at rest, wean to keep sats > 90%. Cont NIV as tolerated with sleep for now -IV solumedrol, duonebs, add budesonide -Cont empiric ABX. Viral panel, urine strep/legionella negative -Cont mucomyst with flutter valve/vest therapy. Cont guafenesin -CTA chest negative for PE -Cont OP pulmonary clinic f/u FEN/GI: PO diet Proph DVT/GI: Lovenox The entirety of this encounter was done via telemedicine using both audio and video. Consent was obtained.
[2024-10-27 23:00] LABS: Vancomycin, Trough Level 12.4 ug/mL (5.0-15.0)
--- NOTE | 2024-10-27 23:14 | PCM.RX.CS ---
Consult Antibiotic Management Pharmacy has been consulted to manage selected antibiotic: Vancomycin Type of Intervention Type of Consult: Follow-up Labs Labs: Sodium 141 mmol/L (133-145) 10/25/24 06:39 Potassium 4.6 mmol/L (3.3-5.1) 10/25/24 06:39 Chloride 104 mmol/L (98-108) 10/25/24 06:39 Carbon Dioxide 27.4 mmol/L (21.0-32.0) 10/25/24 06:39 Anion Gap 9 (5-15) 10/25/24 06:39 BUN 19 mg/dL (4-19) 10/25/24 06:39 Creatinine 0.78 mg/dL (0.70-1.20) 10/25/24 06:39 Est GFR (MDRD) Non-Af 106 (>60) 10/25/24 06:39 BUN/Creatinine Ratio 24.7 RATIO (10-20) H 10/25/24 06:39 Glucose 135 mg/dL (70-99) H 10/25/24 06:39 Vancomycin Trough 12.4 ug/mL (5.0-15.0) 10/27/24 22:39 Microbiology Microbiology: Microbiology 10/24/24 20:08 Blood Culture (Wb) - Anticubital Left Blood Culture - Preliminary No growth in 48 hours. 10/24/24 22:00 Sputum, Expectorated/Coughed Gram Stain - Final 10/24/24 22:00 Sputum, Expectorated/Coughed Respiratory Culture - Final 10/25/24 08:22 Mucosa - Nasopharyngeal Coronavirus COVID-19 PCR - Final 10/22/24 19:15 Urine, Clean Catch Urine Culture - Final Mixed Gram Positive Organisms 10/22/24 18:22 Blood Culture (Wb) - Left Hand Blood Culture - Preliminary No growth in 48 hours. 10/24/24 23:00 Nasal Secretion MRSA (PCR) - Final 10/22/24 18:22 Blood Culture (Wb) - Anticubital Right Bacteria Detection (PCR) - Final Coag Negative Staph 10/22/24 18:22 Blood Culture (Wb) - Anticubital Right Blood Culture - Preliminary Coag Negative Staph 10/22/24 22:10 Mucosa - Nasopharyngeal Respiratory Panel (PCR) - Final 10/22/24 19:15 Urine, Clean Catch Legionella Antigen - Final 10/22/24 19:15 Urine, Clean Catch Streptococcus pneumoniae Antigen (M - Final Dosing Weight Weight used for dosin.4 kg Estimated Creatinine Clearance Estimated Creatinine Clearance: 112 Goal Trough Goal Trough: 15-20 mcg/mL Pharmacy Plan for Drug Dosing Pharmacy Plan for Drug Dosing: Vancomycin trough level of 12.4, drawn 12hrs post-dose, was below the target range of 15-20. Will increase dose to 2000mg q12h, and will draw another trough level prior to fourth dose of the new regimen. Pharmacy Service will continue to monitor and adjust dosing as required. Follow-Up Labs Follow-Up Labs: Trough: Vancomycin Date/Time Labs Ordered Labs to be done on [date and time ordered]: 10/29/24 @1100
[2024-10-27] MEDS: Vancomycin HCl 2,000 MG in 0.9% Normal Saline (500mL Bag) 500 ML 250 MG IV (23:27)
[2024-10-28] VITALS (8 sets, daily range): BP systolic 140–148; BP diastolic 85–95; PULSE 73–88; RESP 8–26; TEMP 36.8–36.9; O2SAT 91–98; BMI 24.7
[2024-10-28] MEDS: Na Biphos/Potassium Phosphate PACKET 1 PACKET PO (06:04)
[2024-10-28] MEDS: Cefepime HCl 2 GM in 0.9% Normal Saline (100mL MB+) 100 ML IV (06:04)
[2024-10-28 06:32] LABS: Hematocrit 37.6 % (40-54); Hemoglobin 11.5 g/dL (13.0-16.5); Mean Corp Hgb Conc 30.6 g/dL (32-36); Mean Corpuscular Volume 83.7 fL (80-94); Mean Platelet Vol. 9.6 fl (6.2-12.0); POSITIVE COUNT YES; POSITIVE MORPHOLOGY YES; Platelet Count 396 K/mm3 (150-450); RBC Distribution Width CV 15.0 % (11.6-14.6); RBC Distribution Width SD 45.3 fl (35.1-43.9); Red Blood Count 4.49 M/mm3 (4.6-6.2); White Blood Count 17.3 K/mm3 (4.4-11.0)
[2024-10-28 06:33] LABS: Differential Indicated MANUAL DIFF
[2024-10-28 07:04] LABS: Neutrophil-Band 4 % (0-5); Neutrophil-Segmented 71 % (47-70); Total Cells Counted 100 (MANUAL DIFF)
[2024-10-28 07:07] LABS: Anion Gap 9 (5-15); BUN 23 mg/dL (4-19); BUN/Creat Ratio 27.2 RATIO (10-20); Calcium,Total 9.1 mg/dL (7.6-11.0); Carbon Dioxide 28.3 mmol/L (21.0-32.0); Chloride 99 mmol/L (98-108); Estimated Creatinine Clearance 102.58 ml/min (50-250); Glucose 152 mg/dL (70-99); Potassium 4.5 mmol/L (3.3-5.1)
[2024-10-28] MEDS: Acetylcysteine 800 MG/4 ML VIAL.NEB. INHALATION (07:19)
[2024-10-28] MEDS: Budesonide Respules 0.5 MG/2 ML AMPUL.NEB. INHALATION (07:20)
[2024-10-28] MEDS: guaiFENesin/D-Methorphan TAB.SR.12H 2 TABLET PO (08:17)
--- NOTE | 2024-10-28 10:09 | DCINST_ITS ---
Discharge Instructions DC O2, CPAP, BIPAP needs Home O2 Discharge instructions: Yes Type of respiratory needs?: Oxygen Oxygen frequency: Continuous Continuous oxygen liters per minute: 4 Follow Up Care Test Results: Test results from this visit will be discussed in further detail at your follow- up appointment, if applicable. Discharge Plan Admission Admit Date/Time: 10/22/24 21:13 Primary Reason for Your Visit: COPD exacerbation, bronchiectasis Attending Provider: [place] Primary Care Provider: Antwan Buchanan Consulting Providers: Walter Prieto; Clarence Sena; Cuate Jaramillo; Andi Mckeon; Chema Block; Walter Son; Bakari Saldana; David Rosas; Chanelle Valenzuela; Dougie Leroy; Clemente Maynard; Anselmo Rice; Chandni Hoffman; Lida Kaufman; Neva Woods; Fabián Wong; Peter Gomez; Tristen Hanley; Nicolás Barlow; Erin Desir; Roz Alcala; Arslan Duran; Nima Arora; Mikhail Casillas Discharge Orders/Prescriptions Prescriptions: New doxycycline monohydrate 100 mg Capsule 100 mg PO BID 5 Days Qty: 10 0RF dextromethorphan-guaifenesin 60-1,200 mg tablet extended release 12 hr 1 tab PO Q12H 7 Days Qty: 14 0RF prednisone 20 mg tablet See Rx Instructions .Route .COMPLEX Qty: 22 0RF Rx Instructions: 40 mg daily for 4 days, 30 mg for 4 days, 20 mg for 4 days and 10 mg 8 days Continued sertraline 100 MG tablet 100 mg PO DAILY Patient Comments: MENTAL HEALTH trazodone 50 mg tablet 100 - 150 mg PO .prn hs Patient Comments: take 1 to 3 tablets by mouth at bedtime albuterol sulfate [Ventolin HFA] 90 mcg/actuation HFA aerosol inhaler 2 puff inhalation Q4H PRN PRN (Reason: Wheezing) Qty: 1 0RF (DME) nebulizer and compressor Device See Rx Instructions .Route Qty: 1 0RF Rx Instructions: As directed ipratropium-albuterol 0.5 mg-3 mg(2.5 mg base)/3 mL solution for nebulization 3 ml inhalation Q4H PRN (Reason: shortness of breath/wheezing) Qty: 180 2RF fluticasone propion-salmeterol [Advair HFA] 230-21 mcg/actuation HFA aerosol inhaler 2 puff inhalation BID Spiriva Respimat 2.5 mcg/actuation mist 2 puff inhalation DAILY Changed pantoprazole 40 mg tablet,delayed release (DR/EC) 40 mg PO DAILY 30 Days Qty: 0 0RF Patient Comments: take 1 tablet by mouth twice a day Referrals / Follow Up: Abby Block MD [Non-Staff] - Within 2 Weeks Antwan Buchanan DO [Primary Care Provider] - Disposition Disposition (needs filled in before D/C Order can be placed): Home, Self Care
--- NOTE | 2024-10-28 10:23 | DS.PCM_ITS ---
Providers Date of Admission: 10/22/24 Date of Discharge: 10/28/24 Primary Care Physician: Dr. Antwan Buchanan, DO Consultations 10/24/24 11:37 Consult: Aerial Crop Duster / Pulmonary Medicine Routine Consulting Provider: Intensivists/Pulmonary Med Reason for Consult: acute on chronic resp failure EMERGENT Consult: No MD Notified: Yes Date Notified: 10/24/24 Time Notified: 11:37 Method of Notification: TIQR Reason For Visit: AE COPD, ?PNA, ACUTE-ON CHRONIC HYPOXIC RESP Diagnosis Discharge Diagnosis (1) COPD exacerbation: Status: Chronic Code(s): J44.1 - Chronic obstructive pulmonary disease with (acute) exacerbation (2) Bronchiectasis: Status: Acute Code(s): J47.9 - Bronchiectasis, uncomplicated Qualifiers: Bronchiectasis type: with acute exacerbation Qualified Code(s): J47.1 - Bronchiectasis with (acute) exacerbation (3) Mucus plugging of bronchi: Status: Acute Code(s): T17.500A - Unspecified foreign body in bronchus causing asphyxiation, initial encounter (4) Acute on chronic respiratory failure with hypoxemia: Status: Chronic Code(s): J96.21 - Acute and chronic respiratory failure with hypoxia (5) Hypophosphatasia: Status: Acute Code(s): E83.39 - Other disorders of phosphorus metabolism Plan 54-year-old gentleman with history of chronic hypoxic respiratory failure on 4 L of O2 Treated with shortness of breath and not feeling well. Pulse ox was 88% objective evidence of dyspnea. Patient also was 86% on 4 L of O2. 1. COPD/emphysema and bronchiectasis exacerbation with suspicion of smoking- related ILD: Patient had chest x-ray and CT which shows bronchial wall thickening. Also reported bronchiectasis most pronounced in lower lobes right more than left with extensive bronchial debris. No consolidation or effusion or pneumothorax. 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 No definite consolidation Prelim blood culture shows Staph aureus but it PCR came coagulase-negative staph. Empirically started IV vancomycin but is discontinued. On IV ceftriaxone. Doxycycline added. Urinary antigens and respiratory panel negative. Will need to follow-up with the nitroglycerin nitrator operator batch as an outpatient 10/24: With suspicion of bronchiectasis, patient is on IV antibiotics as mentioned above. On acetylcysteine inhalation. Incentive spirometry. Can Sorter consulted for further opinion. Vest therapy. 10/25: Oxygen requirement better 6 L. Was evaluated by bead worker sewing and IV cefepime was added to cover Pseudomonas. Continue doxycycline vancomycin was added for CoNS bacteremia 10/26: Respiratory rate is better at 15 to 18/min. Still on 6 L of oxygen. Intermittent BiPAP at night. No fever or tachycardia. Prelim sputum culture appears normal respiratory olayinka. Continue all treatment 10/27: Patient still on 6 L of oxygen, on full maximal treatment of bronchodilator, acetylcysteine, IV Solu-Medrol, incentive spirometry and vest. Patient's symptoms are improved but still high in need of oxygen. Walking pulse oximetry ordered 10/28: Patient completed 7 days of IV antibiotics, first IV ceftriaxone and then cefepime. He has also been on vancomycin and doxycycline. Discharged on 5 more days of doxycycline. Prolonged tapering regimen of prednisone prescription given. Advised follow-up with Dr. Abby Block within 2 weeks. Home oxygen qualification test ordered 2. AE COPD with [id number] Hypoxic Respiratory Failure requiring BiPAP Maintain IV methylprednisolone with scheduled and prn nebulizers/inhalers. Wean BiPAP as tolerated. 11/11 patient used BiPAP yesterday. 3. Hypophosphatemia of 1.1 mg/dL present on admission - Give supplemental K- Phos 40 mmol IV once and then recheck level in AM to confirm repletion. 10/24: Repeat phosphorus 2.1, serum magnesium 2.0. Potassium 4.6. 10/28: Repeat phosphorus was 2.6. Hypophosphatemia resolved. 4. Chronic iron-deficiency anemia: H&H 12.7, MCV 82. H&H dropped to 10.8/35%. Iron studies shows serum iron 11, TIBC 331 and iron saturation 3.3%. Ferritin 91. Ferrous sulfate ordered 10/24: H&H 9.3/37.1%. 5. Depression with anxiety; on sertraline and trazodone - Maintain home regimen as before. GERD with history of PUD; on pantoprazole BID - Resume PPI as previous. DVT prophylaxis - Enoxaparin 40 mg sq daily plus SCD's. Discharge medication reconciliation done. Discharge follow-up instructions completed. Discharge process discussed with the patient and all questions were answered to patient's satisfaction. Follow with PCP in 1 to 2 weeks Total time spent, exact 35 minutes on discharge meds reconciliation, examination, coordination of care with nurses and ancillary staff, review of imaging and blood test and discussion with the patient on follow-up instructions. Microbiology Past 72 Hours 10/24/24 22:00 Sputum, Expectorated/Coughed Gram Stain - Final 10/24/24 22:00 Sputum, Expectorated/Coughed Respiratory Culture - Preliminary Appears to be normal respiratory olayinka. Further studies to follow. 10/25/24 08:22 Mucosa - Nasopharyngeal Coronavirus COVID-19 PCR - Final 10/22/24 19:15 Urine, Clean Catch Urine Culture - Final Mixed Gram Positive Organisms 10/22/24 18:22 Blood Culture (Wb) - Left Hand Blood Culture - Preliminary No growth in 48 hours. 10/24/24 23:00 Nasal Secretion MRSA (PCR) - Final 10/22/24 18:22 Blood Culture (Wb) - Anticubital Right Bacteria Detection (PCR) - Final Coag Negative Staph 10/22/24 18:22 Blood Culture (Wb) - Anticubital Right Blood Culture - Preliminary Coag Negative Staph Laboratory Results 10/26/24 08:36: Vancomycin Trough 8.9 Clinical Impression(s) from Imaging Studies Chest X-Ray 10/22/24 18:40 IMPRESSION: Persistent bibasilar airspace opacities and atelectasis. Trace bibasilar pleural effusions. Reading Location: [facility] Chest CT 10/22/24 22:26 IMPRESSION: COPD. Bronchiectasis and extensive bronchial debris. No consolidation or other definite acute chest findings. [facility] Medications at Discharge Home Medications sertraline 100 mg tablet 100 mg PO DAILY mood 11/19/14 trazodone 50 mg tablet 100 - 150 mg PO .prn hs sleep 03/20/21 albuterol sulfate 90 mcg/actuation aerosol inhaler (Ventolin HFA) 2 puff inhalation Q4H PRN PRN Wheezing ##1 02/10/22 fluticasone propionate 230 mcg-salmeterol 21 mcg/actuation HFA inhaler (Advair HFA) 2 puff inhalation BID breathing 03/13/24 tiotropium bromide 2.5 mcg/actuation mist for inhalation (Spiriva Respimat) 2 puff inhalation DAILY breathing 03/13/24 ipratropium 0.5 mg-albuterol 3 mg (2.5 mg base)/3 mL nebulization soln 3 ml inhalation Q4H PRN shortness of breath/wheezing #180 mL 03/22/24 nebulizer and compressor #1 ea 03/22/24 dextromethorphan-guaifenesin ER 60 mg-1,200 mg tab,extend release,12hr 1 tab PO Q12H 1 week #14 tabs 10/28/24 doxycycline monohydrate 100 mg capsule 100 mg PO BID 5 days #10 caps 10/28/24 pantoprazole 40 mg tablet,delayed release 40 mg PO DAILY stomache 30 days #0 tabs 10/28/24 prednisone 20 mg tablet See Rx Instructions .Route .COMPLEX #22 tabs 10/28/24 Physical Exam Narrative Seen and examined. Patient on home baseline 4 L of oxygen. Previous history of MRSA pneumonia. Patient has history of smoking started at the age of 12. He started with 3 to 4 cigarettes but went up to 1.5 to 2 pack and then quit. He quit 2 years ago in 2022 history of double pneumonia, emphysema. He has chronic cough but his cough got worse with shortness of breath therefore COPD exacerbation Physical exam General: Alert, Oriented x3, Cooperative HEENT: Atraumatic, PERRLA, EOMI, Normocephalic. Oral: No Gingival or Mucosal Lesions/ Ulcerations Neck: Supple, No JVD, Negative Carotid Bruits Chest wall/Lungs: Air entry diminished in all lung hernandez. Lung sounds clear. Cardiovascular: Regular rate and rhythm, Normal S1,S2, No M/G/R Abdomen: Bowel Sounds Present, Soft, Non Tender, Non-Distended : No dysuria. No renal angle tenderness. No suprapubic tenderness. Extremities: No edema, Capillary Refill Less than 3 Seconds Skin: No rashes, No breakdown Musculoskeletal: No Tenderness to Palpation of Joints or Extremities Neurological: Cranial nerves II-XII grossly intact, DTR 2+/4. No acute focal neurological deficit. Psych/Mental Status: Normal Affect, Appropriate. Weight / BMI Weight Weight: 173 lb 1.006 oz Body Mass Index (BMI) 24.7 ABG / Lab / Microbiology Data 10/28/24 06:12 10/28/24 06:12 Laboratory: Laboratory Results - last 24 hr 10/27/24 22:39: Vancomycin Trough 12.4 10/28/24 06:12: WBC 17.3 H, RBC 4.49 L, Hgb 11.5 L, Hct 37.6 L, MCV 83.7, MCH 25.6 L, MCHC 30.6 L, RDW Std Deviation 45.3 H, RDW Coeff of Maya 15.0 H, Plt Count 396, MPV 9.6, Neut % (Auto) Not Reportable, Absolute Neuts (auto) 13.0 H, Absolute Lymphs (auto) 2.08, Total Counted 100, Neutrophils % (Manual) 71 H, Band Neutrophils % 4, Lymphocytes % (Manual) 12 L, Monocytes % (Manual) 4, Metamyelocytes % 1, Myelocytes % 8 H, Diff Path Review July, Platelet Estimate ADEQUATE, Sodium 137, Potassium 4.5, Chloride 99, Carbon Dioxide 28.3, Anion Gap 9, BUN 23 H, Creatinine 0.85, Estim Creat Clear Calc 102.58, Est GFR (MDRD) Non-Af 103, BUN/Creatinine Ratio 27.2 H, Glucose 152 H, Calcium 9.1, P hosphorus 2.6 L Microbiology: Microbiology 10/22/24 18:22 Blood Culture (Wb) - Anticubital Right Bacteria Detection (PCR) - Final Coag Negative Staph 10/22/24 18:22 Blood Culture (Wb) - Anticubital Right Blood Culture - Final Coag Negative Staph 10/22/24 18:22 Blood Culture (Wb) - Left Hand Blood Culture - Final No growth in 5 days. 10/24/24 20:08 Blood Culture (Wb) - Anticubital Left Blood Culture - Preliminary No growth in 48 hours. 10/24/24 22:00 Sputum, Expectorated/Coughed Gram Stain - Final 10/24/24 22:00 Sputum, Expectorated/Coughed Respiratory Culture - Final 10/25/24 08:22 Mucosa - Nasopharyngeal Coronavirus COVID-19 PCR - Final 10/22/24 19:15 Urine, Clean Catch Urine Culture - Final Mixed Gram Positive Organisms 10/24/24 23:00 Nasal Secretion MRSA (PCR) - Final 10/22/24 22:10 Mucosa - Nasopharyngeal Respiratory Panel (PCR) - Final 10/22/24 19:15 Urine, Clean Catch Legionella Antigen - Final 10/22/24 19:15 Urine, Clean Catch Streptococcus pneumoniae Antigen (M - Final D/C Instructions DC O2, CPAP, BIPAP Needs Home O2 Discharge instructions: Yes Type of respiratory needs?: Oxygen Oxygen frequency: Continuous Continuous oxygen liters per minute: 4 DC home with Oxygen: Yes Home O2 MD Review: I have reviewed the oxygen testing, and the patient qualifies for home oxygen equipment and portability. The patient is mobile in the home and the community. Meaningful Use Info Meaningful Use Meaningful Use Diagnoses (Choose all that apply): None applicable Discharge Plan Admission Admit Date/Time: 10/22/24 21:13 Primary Reason for Your Visit: COPD exacerbation, bronchiectasis Attending Provider: [place] Primary Care Provider: Antwan Buchanan Consulting Providers: Walter Prieto; Clarence Sena; Cuate Jaramillo; Andi Mckeon; Chema Block; Walter Son; Bakari Saldana; David Rosas; Chanelle Valenzuela; Dougie Leroy; Clemente Maynard; Anselmo Rice; Chandni Hoffman; Lida Kaufman; Neva Woods; Fabián Wong; Peter Gomez; Tristen Hanley; Nicolás Barlow; Erin Desir; Roz Alcala; Arslan Duran; Nima Arora; Mikhail Casillas Discharge Orders/Prescriptions Prescriptions: New doxycycline monohydrate 100 mg Capsule 100 mg PO BID 5 Days Qty: 10 0RF dextromethorphan-guaifenesin 60-1,200 mg tablet extended release 12 hr 1 tab PO Q12H 7 Days Qty: 14 0RF prednisone 20 mg tablet See Rx Instructions .Route .COMPLEX Qty: 22 0RF Rx Instructions: 40 mg daily for 4 days, 30 mg for 4 days, 20 mg for 4 days and 10 mg 8 days Continued sertraline 100 MG tablet 100 mg PO DAILY Patient Comments: MENTAL HEALTH trazodone 50 mg tablet 100 - 150 mg PO .prn hs Patient Comments: take 1 to 3 tablets by mouth at bedtime albuterol sulfate [Ventolin HFA] 90 mcg/actuation HFA aerosol inhaler 2 puff inhalation Q4H PRN PRN (Reason: Wheezing) Qty: 1 0RF (DME) nebulizer and compressor Device See Rx Instructions .Route Qty: 1 0RF Rx Instructions: As directed ipratropium-albuterol 0.5 mg-3 mg(2.5 mg base)/3 mL solution for nebulization 3 ml inhalation Q4H PRN (Reason: shortness of breath/wheezing) Qty: 180 2RF fluticasone propion-salmeterol [Advair HFA] 230-21 mcg/actuation HFA aerosol inhaler 2 puff inhalation BID Spiriva Respimat 2.5 mcg/actuation mist 2 puff inhalation DAILY Changed pantoprazole 40 mg tablet,delayed release (DR/EC) 40 mg PO DAILY 30 Days Qty: 0 0RF Patient Comments: take 1 tablet by mouth twice a day Referrals / Follow Up: Abby Block MD [Non-Staff] - Within 2 Weeks Antwan Buchanan DO [Primary Care Provider] - Disposition Disposition (needs filled in before D/C Order can be placed): Home, Self Care Charges/Coding Visit Charges Inpatient E&M: 02067 Disch Hosp >30min
--- NOTE | 2024-10-28 13:03 | NURSING ---
Pt given discharge instructions including medications, follow up appointments and all other discharge instructions. pt denies any further needs at this time. telemetry removed. Iv removed with catheter intact, clean dry dressing applied. Pt tolerated well.Pt being wheeled out to friends waiting vehicle. pt denies any further needs at this time.
== END 2024-10-28 12:59 | disposition home or self-care (01) | DRG 133 ==
LOC: ED 20:47 → MS3 21:37
PROVIDERS: Internal Medicine Pulmonary Disease; Admitting Provider Internal Medicine; Emergency Provider Emergency Medicine; PCP Student in an Organized Health Care Education/Training Program; Visit Provider Internal Medicine
DX: J96.21 Acute and chronic respiratory failure with hypoxia (principal); R78.81 Bacteremia; J47.0 Bronchiectasis with acute lower respiratory infection; E83.39 Other disorders of phosphorus metabolism; J84.9 Interstitial pulmonary disease, unspecified; D50.9 Iron deficiency anemia, unspecified; F32.A Depression, unspecified; J44.0 Chronic obstructive pulmonary disease with (acute) lower respiratory infection; J44.1 Chronic obstructive pulmonary disease with (acute) exacerbation; J47.1 Bronchiectasis with (acute) exacerbation; F41.9 Anxiety disorder, unspecified; J43.9 Emphysema, unspecified; Z99.81 Dependence on supplemental oxygen; Z79.51 Long term (current) use of inhaled steroids; R59.0 Localized enlarged lymph nodes; Z86.16 Personal history of COVID-19; Z87.891 Personal history of nicotine dependence; Z86.73 Personal history of transient ischemic attack (TIA), and cerebral infarction without residual deficits; B95.7 Other staphylococcus as the cause of diseases classified elsewhere
CPT/HCPCS: 36415; 36600; 71045; 71260; 71275; 80048; 80053; 80202; 81001; 82728; 82803; 82962; 83540; 83550; 83605; 83735; 83880; 84100; 84443; 84484; 85025; 85379; 85610; 85730; 87040; 87070; 87086; 87088; 87149; 87205; 87449; 87633; 87635; 87641; 93005; 94002; 94003; 94640; 94667; 94668; 94762; 97161; 99252; 99285; 99406; Q9967; A4216; G0463; J0696; J2916